=== PATIENT | male | born 1935 | race Caucasian/White ===

== ENCOUNTER 2017-10-19 12:24 | Observation (INO) | payer OTHER ==
[2017-10-19 12:56] LABS: Absolute Lymphocytes (CBC) 1.1 K/uL (0.7-4.9); Absolute Monocytes 0.3 K/uL (0.1-1.3); Absolute Neutrophil 3.5 K/uL (1.8-8.0); Basophils % 0.6 % (0-1.3); Eosinophils % 0.6 % (0-4.4); Hematocrit 33.3 % (39.6-49.0); Lymphocytes % 21.2 % (15.3-44.8); MCH 25.7 pg (27.0-35.0); MCV 80.2 fL (80-100); MPV 9.6 fL (7.6-11.3); Monocytes % 6.8 % (3.3-12.3); RBC Red Blood Cell Count 4.16 M/uL (4.33-5.43)
[2017-10-19 12:57] LABS: Protime INR 1.13
[2017-10-19 13:06] LABS: Potassium 3.9 mEq/L (3.6-5.0)
[2017-10-19 13:12] LABS: Albumin 3.6 g/dL (3.2-5.5); Bilirubin Direct 0.2 mg/dL (0-0.2); Bilirubin Total 1.1 mg/dL (0.3-1.2); Magnesium 2.1 mg/dL (1.8-2.5); Protein, Total 6.5 g/dL (6.0-8.3)
--- NOTE | 2017-10-19 13:52 | RAD REPORT ---
EXAM DESCRIPTION: RAD - Chest Single View - 10/19/2017 1:04 pm CLINICAL HISTORY: Chest pain COMPARISON: None. TECHNIQUE: AP portable chest image was obtained 1247 hours . FINDINGS: No focal consolidation or mass. Interstitial markings are mildly prominent, believed to be baseline. Cardiomegaly present without vascular engorgement. Defibrillator is in place. CABG surgica l changes are noted. No measurable pleural effusion and no pneumothorax. No gross bony abnormality se en. No acute aortic findings suspected. IMPRESSION: Cardiomegaly without failure or volume overload acute findings. No focal consolidation or mass.
[2017-10-19 13:54] LABS: Anisocytosis 2+; Blood Morphology Comment NOTED (NOT SEEN); Platelet Estimate ADEQ; Urine White Blood Cell Casts OK
--- NOTE | 2017-10-19 16:05 | EDPHYS ---
Physician Documentation [facility] Name: Blayne Ashford Age: 82 yrs Sex: Male : 1935 Arrival Date: 10/19/2017 Time: 12:26 Bed 7 Private MD: ED Physician Ramsey Martínez HPI: 10/19 12:48 This 82 yrs old Male presents to ER via EMS with complaints of Chest Pain. jr8 12:48 The patient or guardian reports chest pain that is located primarily in the substernal jr8 area. Onset: acutely, today. The pain does not radiate. Associated signs and symptoms: The patient has no apparent associated signs or symptoms. The chest pain is described as a pressure. Duration: The patient or guardian reports a single episode. Modifying factors: The symptoms are alleviated by nothing. the symptoms are aggravated by nothing. Severity of pain: At its worst the pain was moderate in the emergency department the pain has resolved. It is unknown whether or not the patient has had similar symptoms in the past. The patient has not recently seen a physician. Historical: - Allergies: 12:35 No Known Allergies; sv - Home Meds: 12:35 atorvastatin oral oral [Active]; clopidogrel oral oral [Active]; Corlanor oral oral sv [Active]; Glimepiride Oral [Active]; isosorbide dinitrate Oral [Active]; Januvia oral oral [Active]; Lasix Oral [Active]; levothyroxine oral [Active]; losartan oral oral [Active]; Omeprazole Oral [Active]; Risperdal Oral [Active]; Spironolactone Oral [Active]; torsemide oral oral [Active]; Lactulose Oral [Active]; metoprolol succinate oral oral [Active]; Ranexa oral oral [Active]; tamsulosin oral oral [Active]; exelon patch [Active]; - PMHx: 12:35 Atrial Fib; COPD; Dementia; Pacemaker; BPH; Hypothyroidism; Diabetes - NIDDM; sv Hyperlipidemia; Hypertension; angina pectoris; heart failure; Pneumonia; - PSHx: 12:35 CABG; sv - Immunization history:: Adult Immunizations up to date. - Social history:: Smoking status: Patient/guardian denies using tobacco. - Code Status:: Full code. ROS: 12:48 Eyes: Negative for injury, pain, redness, and discharge, ENT: Negative for injury, jr8 pain, and discharge, Neck: Negative for injury, pain, and swelling, Respiratory: Negative for shortness of breath, cough, wheezing, and pleuritic chest pain, Abdomen/GI: Negative for abdominal pain, nausea, vomiting, diarrhea, and constipation, Back: Negative for injury and pain, MS/Extremity: Negative for injury and deformity, Skin: Negative for injury, rash, and discoloration, Neuro: Negative for headache, weakness, numbness, tingling, and seizure. 12:48 Cardiovascular: Positive for chest pain, Negative for edema, orthopnea, palpitations, paroxysmal nocturnal dyspnea. Exam: 12:48 Eyes: Pupils equal round and reactive to light, extra-ocular motions intact. Lids and jr8 lashes normal. Conjunctiva and sclera are non-icteric and not injected. Cornea within normal limits. Periorbital areas with no swelling, redness, or edema. ENT: Nares patent. No nasal discharge, no septal abnormalities noted. Tympanic membranes are normal and external auditory canals are clear. Oropharynx with no redness, swelling, or masses, exudates, or evidence of obstruction, uvula midline. Mucous membranes moist. Neck: Trachea midline, no thyromegaly or masses palpated, and no cervical lymphadenopathy. Supple, full range of motion without nuchal rigidity, or vertebral point tenderness. No Meningismus. Cardiovascular: Regular rate with irregularly irregular rhythm with a normal S1 and S2. No gallops, murmurs, or rubs. Normal PMI, no JVD. No pulse deficits. Respiratory: Lungs have equal breath sounds bilaterally, clear to auscultation and percussion. No rales, rhonchi or wheezes noted. No increased work of breathing, no retractions or nasal flaring. Abdomen/GI: Soft, non-tender, with normal bowel sounds. No distension or tympany. No guarding or rebound. No evidence of tenderness throughout. Back: No spinal tenderness. No costovertebral tenderness. Full range of motion. Skin: Warm, dry with normal turgor. Normal color with no rashes, no lesions, and no evidence of cellulitis. MS/ Extremity: Pulses equal, no cyanosis. Neurovascular intact. Full, normal range of motion. Neuro: Awake and alert, GCS 15, oriented to person, place, time, and situation. Cranial nerves II-XII grossly intact. Motor strength 5/5 in all extremities. Sensory grossly intact. Cerebellar exam normal. Normal gait. Vital Signs: 12:36 BP 115 / 59; Pulse 69 MON; Resp 22; Temp 98.4(TE); Pulse Ox 98% on R/A; Weight 83.46 kg sv (R); Height 5 ft. 7 in. (170.18 cm) (R); Pain 0/10; 13:15 BP 115 / 63; Pulse 66; Resp 17; Pulse Ox 99% ; sv 14:48 BP 129 / 58; Pulse 65; Resp 15; Pulse Ox 99% on R/A; sv 15:50 BP 131 / 56; Pulse 70; Resp 15; Pulse Ox 99% ; sv 17:17 BP 129 / 53; Pulse 63 MON; Resp 13; Pulse Ox 99% ; sv 18:04 BP 128 / 58; Pulse 66; Resp 16; Pulse Ox 100% ; sv 12:36 Body Mass Index 28.82 (83.46 kg, 170.18 cm) sv 12:36 A fib sv 17:17 A fib sv MDM: 12:29 Patient medically screened. jr8 16:04 The patient was given aspirin in the Emergency Department. Data reviewed: vital signs, jr8 nurses notes, lab test result(s), EKG, radiologic studies, plain films, and as a result, I will discharge patient. Data interpreted: Pulse oximetry: on room air is 99 %. Interpretation: normal. Counseling: I had a detailed discussion with the patient and/or guardian regarding: the historical points, exam findings, and any diagnostic results supporting the discharge/admit diagnosis, lab results, radiology results, the need for further work-up and treatment in the hospital. Physician consultation: Sheridan Grayson MD was called at 16:04, was contacted at 16:04, regarding admission, to the telemetry unit. consult, patient's condition, and will see patient. 10/19 12:33 Order name: Basic Metabolic Panel; Complete Time: 13:36 jr8 10/19 12:33 Order name: BNP; Complete Time: 13:36 jr8 10/19 12:33 Order name: CBC with Diff; Complete Time: 14:00 jr8 10/19 12:33 Order name: LFT's; Complete Time: 13:36 jr8 10/19 12:33 Order name: Magnesium; Complete Time: 13:36 jr8 10/19 12:33 Order name: PT-INR; Complete Time: 13:00 jr8 10/19 12:33 Order name: Troponin (emerg Dept Use Only); Complete Time: 13:36 jr8 10/19 12:33 Order name: XRAY Chest (1 view); Complete Time: 14:00 8 10/19 12:33 Order name: EKG; Complete Time: 12:33 jr8 10/19 12:33 Order name: Cardiac monitoring; Complete Time: 12:36 jr8 10/19 12:58 Order name: CBC Smear Scan; Complete Time: 14:00 [facility] 10/19 15:11 Order name: Troponin (emerg Dept Use Only); Complete Time: 15:54 jr8 10/19 16:24 Order name: Urine Dipstick--Ancillary (enter results); Complete Time: 07:41 ag 10/19 16:27 Order name: Diet Heart Healthy; Complete Time: 16:28 sv 10/19 12:33 Order name: EKG - Nurse/Tech; Complete Time: 12:36 jr8 10/19 12:33 Order name: IV Saline Lock; Complete Time: 12:36 jr8 10/19 12:33 Order name: Labs collected and sent; Complete Time: 12:37 jr8 10/19 12:33 Order name: O2 Per Protocol; Complete Time: 12:37 jr8 10/19 12:33 Order name: O2 Sat Monitoring; Complete Time: 12:37 jr8 Administered Medications: No medications were administered Disposition: 10/19/17 16:04 Hospitalization ordered by Sheridan Grayson for Observation. Preliminary diagnosis is Chest pain, unspecified. - Bed requested for Telemetry/MedSurg (observation). - Status is Observation. sv - Condition is Stable. - Problem is new. - Symptoms have improved. UTI on Admission? No Addendum: 10/21/2017 09:02 Co-signature as Attending Physician, Ramsey Martínez MD I agree with the assessment and c santamaria plan of care. Signatures: Dispatcher [facility] Otilia Mayes RN RN sv Anderson, Corey, MD MD cha Roszak, Josh, PA PA jr8 Antoinette Hoffmann Corrections: (The following items were deleted from the chart) 10/19 17:10 16:04 Hospitalization Ordered by Sheridan Grayson MD for Observation. Preliminary ag diagnosis is Chest pain, unspecified. Bed requested for Telemetry/MedSurg (observation). Status is Observation. Condition is Stable. Problem is new. Symptoms have improved. UTI on Admission? No. jr8 18:11 17:10 10/19/2017 16:04 Hospitalization Ordered by Sheridan Grayson MD for Observation. sv Preliminary diagnosis is Chest pain, unspecified. Bed requested for Telemetry/MedSurg (observation). Status is Observation. Condition is Stable. Problem is new. Symptoms have improved. UTI on Admission? No. ag
--- NOTE | 2017-10-19 16:05 | ER ---
Nurse's Notes [facility] Name: Blayne Ashford Age: 82 yrs Sex: Male : 1935 Arrival Date: 10/19/2017 Time: 12:26 Bed 7 Private MD: Diagnosis: Chest pain, unspecified Presentation: 10/19 12:20 Presenting complaint: EMS states: was given his normal medication about 30 minutes ago sv and had a sudden onset of chest pain (dullness/flutter). Pt has since resolved. BS-220 EKG-Afib, 20G L AC, ASA 325 mg PO given. Transition of care: patient was received from another setting of care (long-term care facility), [facility]. Onset of symptoms was October 19, 2017 at 12:00. Care prior to arrival: IV initiated. 20 GA, in the left antecubital area, Glucose check: 220. 12:20 Method Of Arrival: EMS: [facility] sv 12:20 Acuity: LASHANDA 2 sv 12:21 Initial Sepsis Screen: Does the patient meet any 2 criteria? No. Patient's initial sv sepsis screen is negative. Does the patient have a suspected source of infection? No. Patient's initial sepsis screen is negative. Triage Assessment: 12:25 General: Appears in no apparent distress. comfortable, slender, well developed, sv Behavior is calm, cooperative, appropriate for age. Pain: Denies pain. EENT: No signs and/or symptoms were reported regarding the EENT system. Neuro: Level of Consciousness is awake, alert, obeys commands, Oriented to person, place, time, situation, Moves all extremities. Full function Speech is normal. Cardiovascular: Patient's skin is warm and dry. Pulses are 3+ in right radial artery and left radial artery Rhythm is atrial fibrillation Chest pain is denied. Respiratory: Respiratory effort is even, unlabored, Respiratory pattern is regular, symmetrical. GI: No signs and/or symptoms were reported involving the gastrointestinal system. : No signs and/or symptoms were reported regarding the genitourinary system. Derm: Skin is pink, warm \T\ dry. Musculoskeletal: No signs and/or symptoms reported regarding the musculoskeletal system. Historical: - Allergies: 12:35 No Known Allergies; sv - Home Meds: 12:35 atorvastatin oral oral [Active]; clopidogrel oral oral [Active]; Corlanor oral oral sv [Active]; Glimepiride Oral [Active]; isosorbide dinitrate Oral [Active]; Januvia oral oral [Active]; Lasix Oral [Active]; levothyroxine oral [Active]; losartan oral oral [Active]; Omeprazole Oral [Active]; Risperdal Oral [Active]; Spironolactone Oral [Active]; torsemide oral oral [Active]; Lactulose Oral [Active]; metoprolol succinate oral oral [Active]; Ranexa oral oral [Active]; tamsulosin oral oral [Active]; exelon patch [Active]; - PMHx: 12:35 Atrial Fib; COPD; Dementia; Pacemaker; BPH; Hypothyroidism; Diabetes - NIDDM; sv Hyperlipidemia; Hypertension; angina pectoris; heart failure; Pneumonia; - PSHx: 12:35 CABG; sv - Immunization history:: Adult Immunizations up to date. - Social history:: Smoking status: Patient/guardian denies using tobacco. - Code Status:: Full code. Screenin:30 Abuse screen: Denies threats or abuse. Denies injuries from another. Nutritional sv screening: No deficits noted. Tuberculosis screening: No symptoms or risk factors identified. Fall Risk None identified. Assessment: 12:47 Reassessment: See triage assessment. sv 12:53 Reassessment: xray at bedside. sg 13:50 Reassessment: Patient appears in no apparent distress at this time. No changes from sv previously documented assessment. Patient and/or family updated on plan of care and expected duration. Pain level reassessed. Patient is alert, oriented x 3, equal unlabored respirations, skin warm/dry/pink. 15:10 Reassessment: Patient appears in no apparent distress at this time. No changes from sv previously documented assessment. Patient and/or family updated on plan of care and expected duration. Pain level reassessed. Patient is alert, oriented x 3, equal unlabored respirations, skin warm/dry/pink. 16:27 Reassessment: SisterPRAVEEN Nancy Mitchell [phone]. sv 17:20 Reassessment: Patient and/or family updated on plan of care and expected duration. Pain sv level reassessed. Patient is alert, oriented x 3, equal unlabored respirations, skin warm/dry/pink. Nurse unable to take report at this time. Will call back. 18:05 Reassessment: Patient appears in no apparent distress at this time. No changes from sv previously documented assessment. Patient and/or family updated on plan of care and expected duration. Pain level reassessed. Patient is alert, oriented x 3, equal unlabored respirations, skin warm/dry/pink. Vital Signs: 12:36 BP 115 / 59; Pulse 69 MON; Resp 22; Temp 98.4(TE); Pulse Ox 98% on R/A; Weight 83.46 kg sv (R); Height 5 ft. 7 in. (170.18 cm) (R); Pain 0/10; 13:15 BP 115 / 63; Pulse 66; Resp 17; Pulse Ox 99% ; sv 14:48 BP 129 / 58; Pulse 65; Resp 15; Pulse Ox 99% on R/A; sv 15:50 BP 131 / 56; Pulse 70; Resp 15; Pulse Ox 99% ; sv 17:17 BP 129 / 53; Pulse 63 MON; Resp 13; Pulse Ox 99% ; sv 18:04 BP 128 / 58; Pulse 66; Resp 16; Pulse Ox 100% ; sv 12:36 Body Mass Index 28.82 (83.46 kg, 170.18 cm) sv 12:36 A fib sv 17:17 A fib sv ED Course: 12:20 Maintain EMS IV. Dressing intact. Good blood return noted. Site clean \T\ dry. Gauge \T\ sv site: 20G L Ac. 12:26 Patient arrived in ED. sv 12:27 Otilia Mayes, CARLEY is Primary Nurse. sv 12:29 Zeeshan Cadet PA is PHCP. jr8 12:29 Ramsey Martínez MD is Attending Physician. jr8 12:30 Triage completed. sv 12:30 Patient maintains SpO2 saturation greater than 95% on room air. sv 12:30 Patient has correct armband on for positive identification. Bed in low position. Call sv light in reach. Side rails up X2. securities sales associate on. Pulse ox on. NIBP on. Door closed. Head of bed elevated. 12:30 Arm band placed on left wrist. sv 12:45 Initial lab(s) drawn, by me, sent to lab. sv 13:01 XRAY Chest (1 view) In Process Unspecified. EDMS 13:15 Repeat lab(s) drawn. by me, sent to lab. sv 13:23 CBC Smear Scan Sent. sv 16:04 Sheridan Grayson MD is Hospitalizing Provider. jr8 17:41 No provider procedures requiring assistance completed. Patient admitted, IV remains in sv place. intact. Administered Medications: No medications were administered Outcome: 16:04 Decision to Hospitalize by Provider. jr8 17:41 Admitted to Tele accompanied by tech, via stretcher, room 405, with chart, Report sv called to April HOWE 17:41 Condition: stable 17:41 Instructed on the need for admit. 18:11 Patient left the ED. sv Signatures: Dispatcher [employer] Otilia Sampson RN RN Dixon Ferrer RN RN Zeeshan Cadet PA PA jr8 Corrections: (The following items were deleted from the chart) 17:17 12:36 BP 115 / 59; Pulse 69bpm; Resp 22bpm; Pulse Ox 98% RA; Temp 98.4F Temporal; 83.46 sv kg Reported; Height 5 ft. 7 in. Reported; BMI: 28.8; Pain 0/10; sv 17:40 12:20 Presenting complaint: EMS states: was given his normal medication about 30 sv minutes ago and had a sudden onset of chest pain (dullness/flutter). Pt has since resolved. BS-220 EKG-Afib, 20G L AC, ASA 25 mg PO given. sv
[2017-10-19 17:22] LABS: Urine Blood NEGATIVE (NEG); Urine Glucose NEGATIVE (NEG); Urine Protein NEGATIVE (NEG); Urine Specific Gravity 1.015 (1.005-1.030)
[2017-10-19] MEDS ORDERED: ONDANSETRON 4 MG/2 ML VIAL IV PRN (18:27)
[2017-10-19] MEDS ORDERED: ACETAMINOPHEN 650MG/RECT SUPP PR PRN (18:27)
[2017-10-19] MEDS ORDERED: NITROGLYCERIN 0.4 MG/TAB SL PRN (18:27)
[2017-10-19] MEDS ORDERED: HYDROCODONE/APAP 5/325 MG TAB PO PRN (18:27)
[2017-10-19] MEDS ORDERED: ENOXAPARIN 100 MG/ML SYR SQ SCH (19:00)
[2017-10-19 19:31] LABS: Absolute Lymphocytes (CBC) 1.4 K/uL (0.7-4.9); Absolute Monocytes 0.4 K/uL (0.1-1.3); Absolute Neutrophil 3.1 K/uL (1.8-8.0); Basophils % 0.4 % (0-1.3); Eosinophils % 0.6 % (0-4.4); Hematocrit 35.1 % (39.6-49.0); Lymphocytes % 28.5 % (15.3-44.8); MCH 25.7 pg (27.0-35.0); MCV 80.8 fL (80-100); MPV 9.6 fL (7.6-11.3); Monocytes % 8.6 % (3.3-12.3); RBC Red Blood Cell Count 4.34 M/uL (4.33-5.43)
[2017-10-19 19:44] LABS: Albumin 4.1 g/dL (3.2-5.5); Bilirubin Total 1.1 mg/dL (0.3-1.2); Potassium 3.7 mEq/L (3.6-5.0)
[2017-10-19 19:52] LABS: CKMB Creatine Kinase MB 2.6 ng/ml (0.3-4.0)
[2017-10-19] MEDS ORDERED: ENOXAPARIN 80 MG/0.8 ML SQ SCH (20:00)
[2017-10-19] MEDS: METOPROLOL TAR 50 MG TAB PO SCH (20:39)
[2017-10-19] MEDS: INSULIN -REGULAR HUMAN 50 UNIT/0.5 ML ML SQ SCH (20:49)
[2017-10-19] MEDS ORDERED: ATORVASTATIN 40 MG TAB PO SCH (21:00)
[2017-10-19 21:02] VITALS: BMI 28.8
--- NOTE | 2017-10-20 05:17 | HP ---
Date of Admission: 10/19/2017 Reason For Admission: Chest pain. History Of Present Illness: This is an 82-year-old gentleman with extensive past medical history of coronary artery disease with a CABG, hypertension, hyperlipidemia, diabetes, dementia presented with apparently chest pain. According to the ER records, chest pain was in the mid chest substernal started today without any radiation. There was no nausea or vomiting. The patient describes the pain as pressure. Due to his dementia, he was not able to give me accurate information. In the emergency room, the patient was evaluated. The chest x-ray was unremarkable. EKG showed a flutter with non specific ST-T wave cardiac enzyme. The first set was negative. The second one was up to 0.04. BNP was at 1470. The patient was admitted to be ruled out. Currently, he is lying in bed. He looks comfortable. He has no chest pain or shortness of breath. Review of systems otherwise as below. Past Medical History: Obtained from the chart significant for atrial fibrillation, COPD, dementia, pacemaker placement, enlarged prostate, hypothyroidism, diabetes, hyperlipidemia, hypertension, angina, congestive heart failure, pneumonia. Past Surgical History: Significant for CABG. Code Status: He is full code. Allergies: NONE. Social History: Apparently, he is , have 2 kids. 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 He does not drink or smoke or use any drugs. He used to smoke 30 years ago but quit. Family History: Father of myocardial infarction. Mother of old age. Medication List: I do not have the exact doses but the list showed Lipitor, Plavix, glimepiride, Imdur, Lasix, Synthroid, losartan, omeprazole, Risperdal, spironolactone, torsemide, lactulose, metoprolol, Ranexa, tamsulosin, Exelon patch. Review of Systems: The patient denies any fever, chills, night sweats, dizziness, lightheaded, headache or blurred vision. There is no change in weight or appetite. He has not had any cough or sputum. No shortness of breath. He has chest pain earlier but not now. There was also palpitation, no PND, orthopnea, dyspnea with exertion. No nausea, vomiting, abdominal pain, change in bowel movement, diarrhea, constipation. No dysuria, frequency, urgency, or hematuria. There is no history of depression, anxiety, seizure, or stroke. Physical Examination: Vital Signs: Currently, vital signs, blood pressure is 134/57, respiratory rate 18, pulse 55, temperature 97.9. General: He is fully alert, oriented x3. Does not look in any distress. HEENT: Atraumatic, normocephalic. PERRLA. Oral mucosa is moist. Neck: Supple. No JVD. No carotid bruits. Chest: Clear to auscultation. Good air entry. Heart: Regular, rate, rhythm. No gallop or murmur. Abdomen: Soft, nontender. No masses. No hepatosplenomegaly. Positive bowel sounds. Extremities: No clubbing, cyanosis, or edema. No calf tenderness. Neurologic: Grossly intact. Cranial nerves exam 2 through 12 intact. Normal sensation. Normal reflexes. Normal muscle strength. Laboratory Data: Currently labs from the ER, CBC within normal except for a whole week , platelet 132. Chemistry showed potassium 3.9, chloride 99, BUN of 27, creatinine of 1.68, GFR 39. Glucose 172, BNP of 1470. Troponin first one 0.03, second one 0.04. EKG atrial flutter with non specific ST-T wave changes. Assessment And Plan: This is an 82-year-old gentleman with extensive past medical history of coronary artery disease status post CABG, hyperlipidemia, diabetes mellitus, hypertension, admitted with chest pain. 1. Chest pain. Rule out myocardial infarction. Will admit patient to the floor. Given 1 aspirin, Plavix, full dose of Lovenox 1 mg/kg once a day given renal insufficiency. He will be also on statin until he is ruled out. Cardiology consult in a.m. given excessive pressure in the patient's past medical history. 2. History of congestive heart failure. The patient on Ranexa. We will resume that after we get home dose also on Lasix, Aldactone, and torsemide. We will try to obtain the dose from the longterm. Echocardiogram to evaluate the patient cardiac function. 3. Hyperlipidemia. Continue statin. 4. Hypothyroidism. We will continue on Synthroid. 5. Diabetes mellitus. We will check hemoglobin A1c and place the patient back on glyburide and insulin sliding scale. We will check hemoglobin A1c. 6. Enlarged prostate. We will continue patient on Flomax. No DVT prophylaxis. The patient is on full dose of Lovenox. 7. Renal insufficiency. Most likely chronic. We will observe for now. JACK Voice ID: [id number] MTDD
[2017-10-20 05:41] LABS: CKMB Creatine Kinase MB 2.2 ng/ml (0.3-4.0)
[2017-10-20] MEDS: INSULIN -REGULAR HUMAN 50 UNIT/0.5 ML ML SQ SCH ×4 (07:30→20:46)
[2017-10-20] MEDS ORDERED: GLIMEPIRIDE 2 MG TABLET PO SCH (08:00)
[2017-10-20] MEDS ORDERED: POTASSIUM 25 MEQ EFFERV TAB PO ONE (08:14)
[2017-10-20] MEDS ORDERED: ENOXAPARIN 100 MG/ML SYR SQ SCH (09:00)
[2017-10-20] MEDS ORDERED: FUROSEMIDE 40 MG TABLET PO SCH (09:00)
[2017-10-20] MEDS ORDERED: VALSARTAN 80 MG TAB PO SCH (09:00)
[2017-10-20] MEDS ORDERED: SPIRONOLACTONE 25 MG TABLET PO SCH (09:00)
[2017-10-20] MEDS: SITAGLIPTIN PHOS 100 MG TAB PO SCH (09:23)
[2017-10-20] MEDS: ASPIRIN 325 MG TAB PO SCH (09:23)
[2017-10-20] MEDS: CLOPIDOGREL 75 MG TABLET PO SCH (09:24)
[2017-10-20] MEDS: TAMSULOSIN 0.4 MG SR CAP PO SCH (09:24)
[2017-10-20] MEDS: METOPROLOL TAR 50 MG TAB PO SCH ×2 (09:25→20:46)
[2017-10-20 11:17] LABS: CKMB Creatine Kinase MB 2.1 ng/ml (0.3-4.0)
--- NOTE | 2017-10-20 15:24 | EKG ---
Test Date: 2017-10-19 Test Time: 12:26:37 Nutrition Services Aide: LA MEASUREMENT RESULTS: Intervals: Rate: 70 IN: QRSD: 104 QT: 430 QTc: 464 [place]: P: IN: QRS: -5 T: 113 INTERPRETIVE STATEMENTS: nsr with artifact Minimal voltage criteria for LVH, may be normal variant Possible Anterior infarct, age undetermined ST & T wave abnormality, consider lateral ischemia Abnormal ECG No previous ECG available for comparison Electronically Signed On 10-20-17 15:24:38 CDT by Haroldo Rojas
--- NOTE | 2017-10-20 15:25 | PN ---
Subjective: Currently patient lying in bed. He looks comfortable. He has no chest pain. No abdomi nal pain. His heart rate went all the way down to 30s according to the tele, but he was asymptomatic . Physical Examination: Vital Signs: Blood pressure is 119/56, heart rate 17, pulse 48, temperature 98.6. General: The patient is alert and oriented x3. Does not look in any distress. HEENT: Atraumatic, normocephalic. PERRLA oral mucosa is moist. Neck: Supple. No JVD. No carotid bruits. Chest: Clear to auscultation. Good air entry. Heart: Regular rate and rhythm. S1, S2 normal. No gallop. Abdomen: Soft, nontender. No masses. No hepatosplenomegaly. Positive bowel sounds. Extremities: No clubbing, cyanosis, or edema. No calf tenderness. Neurologic: Grossly intact. Laboratory Data: Today showed CBC was normal except for hemoglobin 11.1. Chemistry not done this a. m. Cardiac enzymes were negative with troponin peaked at 0.04. Assessment And Plan: 1.Chest pain. Rule out myocardial infarction. The patient had negative series of cardiac enzymes. Troponin peaked at 0.04. Continue aspirin and Plavix. We will switch Lovenox for DVT prophylaxis f rom full dose at this point. Cardiology consult requested and is still pending. 2.Bradycardia with history of pacemaker. Cardiac consult pending. I am not sure if we need a pacem fletcher to be interrogated. 3.History of congestive heart failure with elevated BNP, which may not be very accurate due to renal insufficiency. Chest x-ray was unremarkable yesterday. We will resume patient's Ranexa 1000 mg twi ce a day. 4.Diabetes mellitus. Needs better control. Will resume patient's home medication with glyburide. 5.History of benign prostatic hyperplasia. Continue on Flomax 0.4 mg once a day. 6.Renal insufficiency. Chronic. We will observe for now. Repeat CMP as it was not done this selene britton. 7.Discharge plan will depend on cardiology recommendation. JESSE/KO Voice ID: [id number] Report ID: [id number]
[2017-10-20] MEDS ORDERED: ACETAMINOPHEN 325 MG TABLET PO PRN (16:20)
[2017-10-20] MEDS: LACTULOSE 20 GM/30 ML UCUP PO SCH (20:44)
[2017-10-20] MEDS: ATORVASTATIN 80 MG TAB PO SCH (20:44)
[2017-10-20] MEDS: ISOSORBIDE DINIT 20 MG TAB PO SCH (20:45)
[2017-10-20] MEDS: TORSEMIDE 20 MG TAB PO SCH (20:45)
[2017-10-20] MEDS: FUROSEMIDE 40 MG TABLET PO SCH (20:45)
[2017-10-20] MEDS ORDERED: IVABRADINE HCL 5 MG PO SCH (21:00)
[2017-10-21 04:49] LABS: Potassium 4.4 mEq/L (3.6-5.0)
[2017-10-21] MEDS: PANTOPRAZOLE 40MG TABLET PO SCH (05:54)
[2017-10-21] MEDS: LEVOTHYROXINE SOD 0.1 MG TAB PO SCH (05:54)
[2017-10-21] MEDS: INSULIN -REGULAR HUMAN 50 UNIT/0.5 ML ML SQ SCH ×4 (07:30→21:45)
[2017-10-21] MEDS ORDERED: GLIMEPIRIDE 2 MG TABLET PO SCH (08:00)
[2017-10-21] MEDS: SPIRONOLACTONE 25 MG TABLET PO SCH (08:52)
[2017-10-21] MEDS: LOSARTAN POTASSIUM 50 MG TABLET PO SCH (08:52)
[2017-10-21] MEDS: ISOSORBIDE DINIT 20 MG TAB PO SCH ×2 (08:52→21:36)
[2017-10-21] MEDS: TORSEMIDE 20 MG TAB PO SCH (08:52)
[2017-10-21] MEDS: ASPIRIN 325 MG TAB PO SCH (08:52)
[2017-10-21] MEDS: TAMSULOSIN 0.4 MG SR CAP PO SCH (08:52)
[2017-10-21] MEDS: METOPROLOL TAR 25 MG TAB PO SCH ×2 (08:53→21:36)
[2017-10-21] MEDS: CLOPIDOGREL 75 MG TABLET PO SCH (08:53)
[2017-10-21] MEDS: FUROSEMIDE 40 MG TABLET PO SCH ×2 (08:53→21:37)
[2017-10-21] MEDS: SITAGLIPTIN PHOS 100 MG TAB PO SCH (08:53)
[2017-10-21] MEDS ORDERED: HOME MED 1 EA UNK (Clopidogrel Bisulfate [Clopidogrel] 75 MG) PO SCH (09:00)
[2017-10-21] MEDS ORDERED: HOME MED 1 EA UNK (Omeprazole [Omeprazole] 20 MG) PO SCH (09:00)
[2017-10-21] MEDS ORDERED: HOME MED 1 EA UNK (Losartan Potassium [Losartan Potassium] 25 MG) PO SCH (09:00)
[2017-10-21] MEDS: RIVASTIGMINE 9.5 MG/24 HR PATCH TD SCH (09:00)
[2017-10-21] MEDS ORDERED: TAMSULOSIN 0.4 MG SR CAP PO SCH (09:00)
[2017-10-21] MEDS ORDERED: SITAGLIPTIN PHOS 100 MG TAB PO SCH (09:00)
--- NOTE | 2017-10-21 12:06 | CON ---
Date of Consultation: 10/20/2017 Mr. Ashford is an 82-year-old [facility] resident, admitted by Dr. Grayson on 10/19/2017. [facility] Reason For Consultation: Chest pain. History Of Present Illness: Mr. Ashford is an 82, has a very extensive past medical history. He came i n with chest pain that he could not really describe well himself. He did have a troponin of 0.04. H e had a BNP of 1470. His creatinine is 1.68. He was bradycardic when I saw him, but asymptomatic. His chest pain had been going on for about 2-3 days. He denied nausea, vomiting, diaphoresis, PND, o rthopnea, pedal edema, palpitations, or syncope. Allergies: NONE. Review of Systems: Negative. Social History: He is a [facility] resident. Family History: Unremarkable. Past Medical History: Include. 1.Atrial fibrillation. 2.Past history of pacemaker. 3.Chronic obstructive pulmonary disease. 4.Dementia. 5.Diabetes. 6.Hypothyroidism. 7.Hypertension. 8.Dyslipidemia. 9.CHF. 10.History of CABG. Medications: According to the [facility] list include Lipitor, Lasix, Imdur, thyroid, potassium, m etoprolol, Corlanor, Ranexa, Protonix, Januvia, Demadex, Flomax, and Aldactone. Physical Examination: Vital Signs: Stable. He was in sinus bradycardia, afebrile. HEENT: Negative. Neck: Supple without any bruit, lymphadenopathy, JVD, or thyromegaly. Chest: Clear to auscultation and percussion. Cardiac: Revealed a regular rhythm and rate without any gallops or rubs. He had what sounds like an aortic sclerosis murmur. Abdomen: Benign. Extremities: Revealed no clubbing, cyanosis, or edema. Diagnostic Data: As stated earlier. EKG shows sinus bradycardia, nonspecific changes. Chest x-ray shows cardiomegaly but no evidence of volume overload. Impression And Plan: 1.Atypical chest pain, unlikely cardiac. I am concerned about his elevated BNP. We maybe dealing w ith an acute exacerbation of chronic systolic congestive heart failure. Echocardiogram is pending fo r tomorrow. I will continue his present regimen. The patient should not be on Lasix and Demadex and may be just his [facility] listed medicine. I am not so sure, which one he really takes. The pat ient is 82. His dementia is certainly not embark on any further cardiac testing or invasion at this point. 2.Atrial fibrillation that has resolved. He is in sinus bradycardia not on anticoagulation. He is just on Plavix. 3.Chronic obstructive pulmonary disease, stable. 4.Dementia, stable. 5.Diabetes, stable. 6.Hypothyroidism, on Synthroid. 7.Hypertension, well controlled. 8.Dyslipidemia, well controlled. 9.History of coronary artery disease, status post CABG. 10.History of chronic systolic congestive heart failure. The patient sees a surgery center administrator by the [facility] of Dr. Alexandre in [place], I do not have any records. We will try to contact his family for further information. For now, we will diurese him gently to see what the echocardiogram shows and continue h is other regimen otherwise. VANESA/KO Voice ID: [id number] Report ID: [id number]
--- NOTE | 2017-10-21 12:41 | ECHO ---
HEIGHT: 5 ft 7 in WEIGHT: 184 lb 0 oz DATE OF STUDY: 10/21/[address]: Sheridan Grayson MD 2-DIMENSIONAL: YES M.MODE: YES DOPPLER: YES COLOR FLOW: YES TDS: NO PORTABLE: NO DEFINITY: NO BUBBLE STUDY: NO DIAGNOSIS: CONGESTIVE HEART FAILURE CARDIAC HISTORY: CATHERIZATION: NO SURGERY: YES PROSTHETIC VALVE: NO PACEMAKER: YES MEASUREMENTS (cm) DIASTOLIC (NORMALS) SYSTOLIC (NORMALS) IVSd 1.1 (0.6-1.2) LA Diam 4.7 (1.9-4.0) LVEF 25-29% LVIDd 5.6 (3.5-5.7) LVIDs 4.6 (2.0-3.5) %FS 17% LVPWd 1.1 (0.6-1.2) Ao Diam 3.1 (2.0-3.7) 2 DIMENSIONAL ASSESSMENT: RIGHT ATRIUM: DILATED LEFT ATRIUM: DILATED RIGHT VENTRICLE: PACEMAKER LEFT VENTRICLE: DILATED TRICUSPID VALVE: NORMAL MITRAL VALVE: MITRAL ANNULAR CALCIFICATION PULMONIC VALVE: NORMAL AORTIC VALVE: SCLEROSIS PERICARDIAL EFFUSION: NONE AORTIC ROOT: NORMAL LEFT VENTRICULAR WALL MOTION: AKINESIS OF APEX, SEPTUM. GLOBAL HYPOKINESIS ELESWHERE. DOPPLER/COLOR FLOW: MILD MITRAL AND TRICUSPID REGURGITATION. NO SIGNIFICANT AORTIC STENOSIS. COMMENTS: SEVERELY DEPRESSED LEFT VENTRICULAR EJECTION FRACTION. DILATED LEFT AND RIGHT ATRIUM, LEFT VENTRICLE. PACEMAKER IN RIGHT VENTRICLE. AORTIC SCLEROSIS WITH NO AORTIC STENOSIS. MILD AORTIC AND MITRAL REGURGITATION. MITRAL ANNULAR CALCIFICATION. TECHNOLOGIST: MARIA ERWIN
[2017-10-21] MEDS ORDERED: REGADENOSON 0.4 MG/5 ML SYR IV ONE (13:27)
--- NOTE | 2017-10-21 13:42 | CON ---
History Of Present Illness: Mr. Ashford is 82. He has history of bypass surgery in 1980s. He had sten ts placed about 3 years ago. He has chronic atrial flutter, not on an anticoagulant and he has a def ibrillator that is for the most part pacing almost 100% of the time. The defibrillator has reached e lective replacement interval some 6 months ago. The patient has not been compliant with followups an d now has a 28-day window, now 25-day window to get the defibrillator replaced. It has not shocked i n before. The patient has severe underlying dementia and lethargy. He has chronic stable angina. I was asked to see him because he had some angina. He has angina at least several times a week. He t akes medications to help that. Home Medications: Flomax, Ranexa, metoprolol, lactulose, torsemide, spironolactone, Risperdal, omepr azole, losartan, levothyroxine, furosemide, sitagliptin, isosorbide dinitrate, glimepiride, ivabradin e, although that was discontinued, still is listed as an outpatient medication, Plavix, Lipitor, and rivastigmine patch. Physical Examination: General: The patient is sleepy, arousable, not obtunded, but he has very slow mentation. Has had re al difficult time expressing himself. He says he can't say how often he gets angina. He just knows he gets it and feels sure it will go away. I think he had 1 spell that prompted him to come to the ospital. Denies having any chest pain since then. HEENT: Unremarkable. No evidence of trauma. Lungs: Clear. Heart: irregularly irregular. Abdomen: Soft. Extremities: reveal trace edema. Distal pulses diminished. Social History: The patient was a heavy cigarette smoker until about 1993. Diagnostic Data: His EKG shows atrial flutter. I think all of the QRS' are paced complexes. It is hard to be certain. The patient has chest pain. He has chronic stable angina. We will do an echocardiogram and stress t est, get an idea of his ejection fraction and arrange for him to get a new defibrillator. He I guess one of the question is whether he should have a BiV pacing or just replace the device and would it b e a pacemaker. His heart rate is rather slow, maybe it needs to be reprogrammed, so it paces at abou t 70 beats per minute. Thank you very much for kind referral of Mr. Ashford. I will follow him with you today. We will do a p harmacologic nuclear stress echo and decide on whether he needs transfer or an outpatient appointment for a defibrillator revision. MARGOTH/KO Voice ID: [id number] Report ID: [id number]
--- NOTE | 2017-10-21 14:36 | RAD REPORT ---
EXAM DESCRIPTION: NM - Rest Stress Cardiac Imaging - 10/21/2017 2:23 pm CLINICAL HISTORY: Chest pain. COMPARISON: None. TECHNIQUE: The patient was administered approximately 10mCi of Tc 99m Sestamibi prior to resting SPE CT imaging of the heart. The patient was then administered approximately 30 mCi of Tc 99m Sestamibi f ollowing exercise or pharmacologic stress. Multiplanar SPECT images were reviewed. FINDINGS: A large area of diminished radiotracer activity involves the inferior apical left ventric ular myocardium on rest and stress images. A large area of diminished radiotracer uptake involves the septal left ventricular myocardium on rest and stress images. The left ventricular ejection fraction equals 18% IMPRESSION: Large fixed perfusion defect involving the inferior apical left ventricular myocardium c onsistent with an infarct Large area of diminished radiotracer uptake involving the septal left ventricular myocardium consiste nt with an infarct. No evidence of stress-induced ischemia
--- NOTE | 2017-10-21 15:10 | P.PN ---
Subjective Date of Service: 10/21/17 Primary Care Provider: None Chief Complaint: Chest pain Subjective: Doing well Physical Examination - Vital Signs Temperature: 97.9 F Blood Pressure: 111/42 Pulse: 46 Respirations: 18 Pulse Ox (%): 100 - Physical Exam General: Alert, In no apparent distress, Oriented x3, Cooperative HEENT: Atraumatic Neck: Supple Respiratory: Clear to auscultation bilaterally, Normal air movement Cardiovascular: Normal pulses, Regular rate/rhythm Gastrointestinal: Normal bowel sounds, Soft and benign, Non-distended, No masses , No rebound, No guarding Musculoskeletal: No erythema, No tenderness, No warmth Integumentary: No tenderness/swelling, No erythema, No warmth, No cyanosis Neurological: Normal speech, Normal strength at 5/5 x4 extr, Normal tone - Studies Medications List Reviewed: Yes Assessment & Plan - Problems (Diagnosis) (1) Atrial flutter Current Visit: Yes Status: Acute Plan: He cardiology mention atrial flutter. Patient will need cardiac stress test to evaluate his heart. Patient was to have gotten his pacemaker recheck. Patient required new battery. Patient to be further assessed for possible transfer to higher level of care to address his pacemaker. Ejection fraction 25%. Will continue with fluid restriction and Lasix. Await further recommendations from Cardiology (2) Diabetes mellitus Onset Date: 10/21/17 Current Visit: Yes Status: Acute Plan: Continue with sliding scale. Will check A1c. Qualifiers: Diabetes mellitus type: type 2 Diabetes mellitus extermination supervisor insulin use: without extermination supervisor use Diabetes mellitus complication status: with other specified complication Qualified Code(s): E11.69 - Type 2 diabetes mellitus with other specified complication (3) Hypothyroidism Onset Date: 10/21/17 Current Visit: Yes Status: Chronic Plan: Will check tsh. Will continue with medication. Qualifiers: Hypothyroidism type: unspecified Qualified Code(s): E03.9 - Hypothyroidism , unspecified (4) Hyperlipidemia Onset Date: 10/21/17 Current Visit: Yes Status: Chronic Plan: Will continue with medication. LDL 30. (5) Chest pain Onset Date: 10/21/17 Current Visit: Yes Status: Acute Plan: Patient to have stress test. Echocardiogram shows ejection fraction 25%. Patient to be evaluated from a cardiology to consider transfer to higher level care for evaluation of pacemaker in possible replacement. (6) Dementia Current Visit: Yes Status: Chronic Plan: Patient with chronic dementia. Will continue with his medication. Will monitor closely. (7) BPH (benign prostatic hyperplasia) Current Visit: Yes Status: Chronic Plan: Will continue with medication (8) Chronic renal disease Current Visit: Yes Status: Chronic Plan: Will check renal US. Will consult Nephrology to address. Qualifiers: Chronic kidney disease stage: stage 3 (moderate) Qualified Code(s): N18.3 - Chronic kidney disease, stage 3 (moderate) Discharge Plan: Transfer Plan to discharge in: 24 Hours Time Spent Managing Pts Care (In Minutes): 55
--- NOTE | 2017-10-21 15:55 | TREADPHA ---
DX: CHEST PAIN Date of Study: 10/21/2017 Ht: 5 7 Wt: 184 lb 0 oz Consulting Physician: KRISTAN MEDICATIONS: TYLENOL, NORCO, ASPIRIN, LIPITOR, PLAVIX, LASIX, AMARYL, ZOFRAN, NOVOLIN-R, ISORDIL, CEPHULAR, COZAAR, LOPRESSOR, NITRAOSTAT, RANEXA, FLOMAX, DEMADEX HISTORY: PATIENT HERE FOR CHEST PAIN. MEDICAL HISTORY OF CORONARY ARTERY DISEASE, CHRONIC STABLE ANGINA. PHYSICIAL EXAMINATION: RESTING B.P.: 127/70 RESTING H.R.: 62 RESTING EKG: ATRIAL FLUTTER WITH 4:1 CONDUCTION, ANTERIOR INFARCTION. PROTOCOL: LEXISCAN EXERCISE TIME: 3:30 B.P. AT PEAK STRESS: 125/59 IMPRESSION: LEXISCAN STRESS TEST PERFORMED. CARDIOLITE INJECTED PER PROTOCOL. NO SUPRAVENTRICULAR TACHYCARDIA OR VENTRICULAR TACHYCARDIA NOTED. SEE NUCLEAR MEDICINE REPORT. NON DIAGNOSTIC EKG WITH LEXISCAN STRESS.
--- NOTE | 2017-10-21 16:10 | P.CNS ---
Date of Consult: 10/21/17 Reason for Consult: CKD III Requesting Physician: Betito Polk Primary Care Provider: None Chief Complaint: Chest pain History of Present Illness: History Of Present Illness: This is an 82-year-old gentleman with extensive past medical history of coronary artery disease with a CABG, hypertension, hyperlipidemia, diabetes, dementia presented with apparently chest pain. According to the ER records, chest pain was in the mid chest substernal started today without any radiation. There was no nausea or vomiting. The patient describes the pain as pressure. Due to his dementia, he was not able to give me accurate information. In the emergency room, the patient was evaluated. The chest x-ray was unremarkable. EKG showed a flutter with non specific ST-T wave cardiac enzyme. The first set was negative. The second one was up to 0.04. BNP was at 1470. The patient was admitted to be ruled out. Currently, he is lying in bed. He looks comfortable. He has no chest pain or shortness of breath. Review of systems otherwise as below. Reports a hx of a severe renal infection with BRITTANY. No NSAIDs; takes tylenol for pain. No urinary symptoms. 12:48 This 82 yrs old Male presents to ER via EMS with complaints of Chest Pain. jr8 12:48 The patient or guardian reports chest pain that is located primarily in the substernal jr8 area. Onset: acutely, today. The pain does not radiate. Associated signs and symptoms: The patient has no apparent associated signs or symptoms. The chest pain is described as a pressure. Duration: The patient or guardian reports a single episode. Modifying factors: The symptoms are alleviated by nothing. the symptoms are aggravated by nothing. Severity of pain: At its worst the pain was moderate in the emergency department the pain has resolved. It is unknown whether or not the patient has had similar symptoms in the past. The patient has not recently seen a physician. Allergies No Known Allergies Allergy (Verified 10/19/17 16:09) Home medications list reviewed: Yes Home Medications: Atorvastatin Calcium [Lipitor] 80 mg PO BEDTIME 10/20/17 Clopidogrel Bisulfate [Clopidogrel] 75 mg PO DAILY 10/20/17 Furosemide [Lasix*] 40 mg PO BID 10/20/17 Glimepiride [Amaryl*] 2 mg PO DAILY 10/20/17 Isosorbide Dinitrate 20 mg PO BID 10/20/17 Lactulose [Enulose] 30 ml PO BEDTIME 10/20/17 Levothyroxine [Synthroid*] 200 mcg PO DAILY 10/20/17 Losartan Potassium 25 mg PO DAILY 10/20/17 Omeprazole 20 mg PO DAILY 10/20/17 Ranolazine [Ranexa] 1,000 mg PO BID 10/20/17 Risperidone [Risperdal 0.25 MG TAB*] 0.25 mg PO DAILY 10/20/17 Risperidone [Risperdal 0.25 MG TAB*] 0.5 mg PO 1700 10/20/17 Rivastigmine Patch [Exelon 9.5 mg Patch] 13.3 mg TD DAILY 10/20/17 Sitagliptin Phosphate [Januvia*] 50 mg PO DAILY 10/20/17 Spironolactone [Aldactone*] 25 mg PO DAILY 10/20/17 Tamsulosin [Flomax*] 0.4 mg PO DAILY 10/20/17 Metoprolol Tartrate [Lopressor*] 25 mg PO BID #60 tab 10/22/17 - Past Medical/Surgical History Diabetic: Yes -: DM -: PAcemaker -: afib per hx -: pacemaker - Social History Alcohol use: No CD- Drugs: No Caffeine use: Yes Place of Residence: Retirement Review of Systems 10-point ROS is otherwise unremarkable General: Weakness, Malaise Cardiovascular: Edema Neurological: Weakness Physical Examination Temp Pulse Resp BP Pulse Ox 97.9 F 46 L 18 111/42 L 100 10/21/17 15:20 10/21/17 15:20 10/21/17 15:20 10/21/17 15:20 10/21/17 15:20 General: In no apparent distress, Oriented x3, Cooperative HEENT: Atraumatic Neck: Supple Respiratory: Clear to auscultation bilaterally, Normal air movement Cardiovascular: Regular rate/rhythm, Edema Gastrointestinal: Soft and benign, Non-distended Musculoskeletal: No clubbing, No contractures Integumentary: No rashes, No cyanosis Neurological: Normal speech Serum Cr 1.71 Blood work reviewed in the chart. Imagings Data: EXAM DESCRIPTION: RAD - Chest Single View - 10/19/2017 1:04 pm CLINICAL HISTORY: Chest pain COMPARISON: None. TECHNIQUE: AP portable chest image was obtained 1247 hours . FINDINGS: No focal consolidation or mass. Interstitial markings are mildly prominent, believed to be baseline. Cardiomegaly present without vascular engorgement. Defibrillator is in place. CABG surgical changes are noted. No measurable pleural effusion and no pneumothorax. No gross bony abnormality seen. No acute aortic findings suspected. IMPRESSION: Cardiomegaly without failure or volume overload acute findings. No focal consolidation or mass. EXAM DESCRIPTION: US - Renal Ultrasound-Complete - 10/21/2017 4:56 pm CLINICAL HISTORY: Chronic renal disease. COMPARISON: None. FINDINGS: Both kidneys are normal in size, shape and echotexture. The right kidney measures 10.9 x 5.5 x 3.3 cm. No hydronephrosis, focal mass or perinephric fluid. The left kidney measures 9.3 x 4.5 x 4.1 cm. No hydronephrosis, focal mass or perinephric fluid. IMPRESSION: Unremarkable renal sonogram. Conclusions/Impression: A/ CKD III. Systolic CHF, chronic. DM II. Anemia in chronic illness. BPH/ LUTS. P/ Continue current POC and Medications. No NSAIDs. Appreciate cardiology input. Consider iron replacement. Titrate flomax as needed. AM labs. Daily weight. Thank you kindly for the consultation.
[2017-10-21] MEDS ORDERED: RISPERIDONE 0.25 MG TABLET PO SCH (17:00)
--- NOTE | 2017-10-21 17:02 | RAD REPORT ---
EXAM DESCRIPTION: US - Renal Ultrasound-Complete - 10/21/2017 4:56 pm CLINICAL HISTORY: Chronic renal disease. COMPARISON: None. FINDINGS: Both kidneys are normal in size, shape and echotexture. The right kidney measures 10.9 x 5.5 x 3.3 cm. No hydronephrosis, focal mass or perinephric fluid. The left kidney measures 9.3 x 4.5 x 4.1 cm. No hydronephrosis, focal mass or perinephric fluid. IMPRESSION: Unremarkable renal sonogram.
[2017-10-21 20:53] VITALS: O2SAT 99
[2017-10-21] MEDS: LACTULOSE 20 GM/30 ML UCUP PO SCH (21:35)
[2017-10-21] MEDS: ATORVASTATIN 80 MG TAB PO SCH (21:45)
[2017-10-22 04:56] LABS: Absolute Lymphocytes (CBC) 1.6 K/uL (0.7-4.9); Absolute Monocytes 0.4 K/uL (0.1-1.3); Absolute Neutrophil 3.1 K/uL (1.8-8.0); Basophils % 0.5 % (0-1.3); Eosinophils % 1.5 % (0-4.4); Hematocrit 34.1 % (39.6-49.0); Lymphocytes % 29.9 % (15.3-44.8); MCH 26.4 pg (27.0-35.0); MCV 81.4 fL (80-100); MPV 10.1 fL (7.6-11.3); Monocytes % 8.2 % (3.3-12.3)
[2017-10-22 05:25] LABS: Magnesium 2.2 mg/dL (1.8-2.5); Phosphorus 4.5 mg/dL (2.5-4.3); Potassium 3.9 mEq/L (3.6-5.0); Thyroid Stimulating Hormone 1.81 uIU/mL (0.34-5.60)
[2017-10-22] MEDS: PANTOPRAZOLE 40MG TABLET PO SCH (05:43)
[2017-10-22] MEDS: LEVOTHYROXINE SOD 0.1 MG TAB PO SCH (05:43)
[2017-10-22] MEDS ORDERED: POTASSIUM CL SA 10 MEQ TAB PO ONE (05:48)
[2017-10-22] MEDS: INSULIN -REGULAR HUMAN 50 UNIT/0.5 ML ML SQ SCH (07:30)
[2017-10-22] MEDS: RIVASTIGMINE 9.5 MG/24 HR PATCH TD SCH (08:33)
[2017-10-22] MEDS ORDERED: RISPERIDONE 0.25 MG TABLET PO SCH (09:00)
[2017-10-22] MEDS: METOPROLOL TAR 25 MG TAB PO SCH (09:00)
[2017-10-22 09:05] LABS: A1c Component 0.57 mg/dL; Hemoglobin A1c 6.8 % (4-6.0)
[2017-10-22] MEDS: LOSARTAN POTASSIUM 50 MG TABLET PO SCH (09:05)
[2017-10-22] MEDS: SPIRONOLACTONE 25 MG TABLET PO SCH (09:06)
[2017-10-22] MEDS: ASPIRIN 325 MG TAB PO SCH (09:06)
[2017-10-22] MEDS: ISOSORBIDE DINIT 20 MG TAB PO SCH (09:06)
[2017-10-22] MEDS: FUROSEMIDE 40 MG TABLET PO SCH (09:06)
[2017-10-22] MEDS: CLOPIDOGREL 75 MG TABLET PO SCH (09:06)
[2017-10-22] MEDS: TAMSULOSIN 0.4 MG SR CAP PO SCH (09:06)
[2017-10-22] MEDS ORDERED: BUPIVACAINE 0.5% PF 10 ML VIAL ONE (10:09)
[2017-10-22 13:11] VITALS: BP 101/48; TEMP 98.1
--- NOTE | 2017-10-23 11:34 | DS ---
Date of Discharge: 10/22/2017 Consultants: Dr. Nuñez with Nephrology, Dr. Diaz and Dr. Rojas with Cardiology. Admitting Diagnoses: 1.Chest pain, rule out acute coronary syndrome. 2.History of congestive heart failure. 3.Hyperlipidemia. 4.Hypothyroidism. 5.Diabetes. 6.Enlarged prostate. 7.Renal insufficiency, chronic. Discharge Diagnoses: 1.Atrial flutter. 2.Diabetes mellitus type 2 without long-term use of insulin with hyperglycemia. 3.Hypothyroidism. 4.Hyperlipidemia, mixed. Statin. 5.Chest pain, resolved. 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 7.Benign prostatic hypertrophy. Continue Flomax. 8.Chronic kidney disease, stage 3. Stable. Hospital Course: The patient is an 82-year-old male with past medical history of AFib, COPD, dementi a, pacemaker dependent, diabetes, hypertension, CHF, who comes in with chest pain. The patient's tro ponin was 0.03, 0.04, and 0.03. BNP was elevated at 1470. The patient was seen by Cardiology. Echo cardiogram was done, which showed EF depressed at 25% to 29%, possibility of the patient being transf erred versus being set up as an outpatient for pacemaker defibrillator battery replacement. The augusta ent was seen by Nephrology for chronic kidney disease. Creatinine has been stable. The patient did have a stress test done, which did not show any stress-induced ischemia, did show a large fixed perfu pamela defect involving the inferior apical and left ventricular myocardium consistent with infarct, la rge area of diminished radiotracer uptake involving the septal left ventricular myocardium consistent with infarct. The patient's medications were adjusted. The Corlanor was stopped. This has been st opped in the past; however, has been restarted at the detention. Nursing will be contacted to ens ure that the patient is no longer on this medication. The patient overall did well. His chest pain resolved. His electrolytes were monitored and remained stable. His kidney function remained stable. The patient was then cleared for discharge from Cardiology standpoint to be discharged home and to followup with Dr. Ocampo, wood planer to have battery replaced or to have new device put in. Follow with PCP in 1 week. Return to ER for worsening condition. Medications: As per medication reconciliation list. Stop Corlanor. Metoprolol dose adjusted. Diet: Renal disease. Activity: Fall precautions. Physical Examination: General: Awake, alert, oriented x2. No acute distress. CV: S1, S2. No murmurs. Respiratory: Moving air well bilaterally. No wheezing. Abdomen: Soft, nontender, and nondistended. Positive bowel sounds. Extremities: No clubbing, cyanosis, edema. Neuro: Nonfocal. SA/MODL Voice ID: [id number] Report ID: [id number]
--- NOTE | 2017-10-23 19:47 | P.PN ---
Date of Service: 10/22/17 Vital Signs Temp Pulse Resp BP Pulse Ox 98.1 F 47 L 16 101/48 L 98 10/22/17 12:00 10/22/17 12:00 10/22/17 12:00 10/22/17 12:00 10/22/17 12:00 Assessment/ Plan: General: In no apparent distress, Oriented x3, Cooperative HEENT: Atraumatic Neck: Supple Respiratory: Clear to auscultation bilaterally, Normal air movement Cardiovascular: Regular rate/rhythm, Edema Gastrointestinal: Soft and benign, Non-distended Musculoskeletal: No clubbing, No contractures Integumentary: No rashes, No cyanosis Neurological: Normal speech Serum Cr 1.71 Blood work reviewed in the chart. Imagings Data: EXAM DESCRIPTION: RAD - Chest Single View - 10/19/2017 1:04 pm CLINICAL HISTORY: Chest pain COMPARISON: None. TECHNIQUE: AP portable chest image was obtained 1247 hours . FINDINGS: No focal consolidation or mass. Interstitial markings are mildly prominent, believed to be baseline. Cardiomegaly present without vascular engorgement. Defibrillator is in place. CABG surgical changes are noted. No measurable pleural effusion and no pneumothorax. No gross bony abnormality seen. No acute aortic findings suspected. IMPRESSION: Cardiomegaly without failure or volume overload acute findings. No focal consolidation or mass. EXAM DESCRIPTION: US - Renal Ultrasound-Complete - 10/21/2017 4:56 pm CLINICAL HISTORY: Chronic renal disease. COMPARISON: None. FINDINGS: Both kidneys are normal in size, shape and echotexture. The right kidney measures 10.9 x 5.5 x 3.3 cm. No hydronephrosis, focal mass or perinephric fluid. The left kidney measures 9.3 x 4.5 x 4.1 cm. No hydronephrosis, focal mass or perinephric fluid. IMPRESSION: Unremarkable renal sonogram. Conclusions/Impression: A/ CKD III. Systolic CHF, chronic. DM II. Anemia in chronic illness. Iron deficiency. BPH/ LUTS. P/ Continue current POC and Medications. No NSAIDs. Appreciate cardiology input. Recommend iron replacement. Will need an outpt colonoscopy if not done recently. Titrate flomax as needed. AM labs. Daily weight.
== END 2017-10-22 13:25 ==
LOC: ER 12:24 → ERHOLD 16:30 → 4TH 17:43
PROVIDERS: ADMIT Internal Medicine; ATTEND Internal Medicine
DX: R07.9 Chest pain, unspecified (principal); I48.92 Unspecified atrial flutter; E03.9 Hypothyroidism, unspecified; E78.5 Hyperlipidemia, unspecified; J44.9 Chronic obstructive pulmonary disease, unspecified; N40.0 Benign prostatic hyperplasia without lower urinary tract symptoms; R00.1 Bradycardia, unspecified; I13.0 Hypertensive heart and chronic kidney disease with heart failure and stage 1 through stage 4 chronic kidney disease, or unspecified chronic kidney disease; E11.22 Type 2 diabetes mellitus with diabetic chronic kidney disease; N18.3 Chronic kidney disease, stage 3 (moderate); I50.22 Chronic systolic (congestive) heart failure; D63.1 Anemia in chronic kidney disease; N40.1 Benign prostatic hyperplasia with lower urinary tract symptoms; G30.1 Alzheimer's disease with late onset; F02.80 Dementia in other diseases classified elsewhere, unspecified severity, without behavioral disturbance, psychotic disturbance, mood disturbance, and anxiety; Z87.891 Personal history of nicotine dependence; Z95.0 Presence of cardiac pacemaker
CPT/HCPCS: 36415 ×3; 71045; 76770; 78452; 80048 ×3; 80053; 80061; 80076; 81003; 82550 ×3; 82553 ×3; 82607; 82746; 82962 ×12; 83036; 83540; 83735 ×2; 83880; 84100; 84439; 84443; 84466; 84484 ×5; 85025 ×3; 85610; 93005; 93017; 93306; 94760 ×4; 99285; A9500; G0378 ×2; J1650; J2785

== ENCOUNTER 2017-12-11 20:50 | Emergency (ER) | payer OTHER ==
--- OUTSIDE RECORDS SUMMARY | 2017-12-11 21:01 | XMS REPORT | Continuity of Care Document ---
:1935 Author Organization Interface Problems Problem Status Onset Classification Date Comments Source Date Reported Irritability and anger The [address] [place] [address] Anger reaction The [address] [place] [address] Dementia The [address] [place] [address] FALL ON BLOODTHINNERS Active The 2018 [place] Discharge Diagnosis: [facility] Chronic renal 2017 7 insufficiency Discharge Diagnosis: [facility] Chronic CHF 2017 7 ABNORMAL LABS Active 05/30/ [facility] 2016 AFIB/DIZZY Active 11/02[facility] 2016 CP Active 12/27[facility] 2015 UNSTABLE ANGINA Active 05/16/ [address] CHRONIC SYSTOLIC HEART Active [facility] FAILURE 428.22 ANGINA 2012 413.9 CHRONIC SYSTOLIC HEART Active 06/22/ [facility] FAILURE 428.22 ANGINA 2012 413.9. 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 Presence of coronary Active Problem Cardiovascular angioplasty implant 8 [facility] and graft Type 2 diabetes Active Problem Cardiovascular mellitus without 8 [facility]oc complications Hyperlipidemia, Active Problem Cardiovascular unspecified 8 [facility]oc Hypothyroidism, Active Problem Cardiovascular unspecified 8 [facility]oc Chronic systolic heart Active Problem Cardiovascular failure 8 [facility] Acute on chronic Active Problem Cardiovascular systolic heart failure 8 [facility] Paroxysmal atrial Active Problem Cardiovascular fibrillation 8 [facility] Arteriovenous fistula, Active Problem Cardiovascular acquired 8 [facility]oc Non-ST elevation Active Problem Cardiovascular myocardial infarction 8 [facility] Coronary Active Diagnosis Cardiovascular atherosclerosis of 5 [facility] [place] vessel Diabetes mellitus type Active Problem Cardiovascular II 5 [facility]oc Hypertension Heart Active Problem Cardiovascular Disease - w/o CHF* 5 [facility]oc Angina of effort Active Problem Cardiovascular 5 [facility] Chronic systolic heart Active Problem Cardiovascular failure 5 [facility] S/P Automatic Active Problem Cardiovascular Defibrillator 5 Assoc S/P CABG Active Problem Cardiovascular 5 [facility] Hypercholesterolemia Active Problem Cardiovascular NOS 5 [facility]oc Hypothyroidism Active Problem Cardiovascular 5 [facility] s/p PTCA or Stent Active Problem Cardiovascular 6 [facility]oc Diabetes mellitus Type Active Problem Cardiovascular 2 without 6 Assoc complications Unspecified dementia The without behavioral [address] [place] [address] disturbance Laceration without The foreign body of left [address] [place] [address] elbow, initial encounter Abrasion of scalp, The initial encounter [address] [place] [address] Abrasion of right The forearm, initial [address] [place] [address] encounter Striking against other The stationary object, [address] [place] [address] initial encounter Essential hypertension The [address] [place] [address] 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[place] [address] [place] [address] coronary artery without angina 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 [address] [place] [address] Personal history of The nicotine dependence [address] [place] [address] Encounter for The immunization [address] [place] [address] CAD (<span Active Problem [facility], ID="[id number]">Conf [address] [place] [address] irmed</span>) [place], [place] Heart failure Active Problem [facility] Outpatient 8 Imaging [facility] [place] HTN (<span Resolved Problem [facility], ID="[id number]">Conf 8 [facility] irmed</span>) [facility] [place] (<span Resolved Problem [facility], ID="[id number]">Conf 8 [facility] irmed</span>) [facility] [place] CHR SYSTOLIC HRT Active [facility] FAILURE ANGINA PECTORIS, Active [facility] ENCOUNTER FOR Active [facility] SCREENING FOR Medical Center MALIGNANT NE NON-ST ELEVATION Active [facility] (NSTEMI) MYOCARDIAL INF CHEST PAIN, Active [facility] UNSPECIFIED UNSPECIFIED ATRIAL Active [facility] FIBRILLATION Medications Medication Details Route Status Patient Ordering Order Source Instructions Provider Date Saline Flush 10 mL, Inactive The 0.9% Route: IVP2017 [place] Drug Form: INJ, Dosing Weight 83.182, kg, PRN, PRN Line Flush, Start date: 08/06/17 1:02:00 [employer] WORK[employer], Duration: 30 day, Stop date: 09/05/17 2:01:00 CDTNotes: Same as: BD Posiflush Sterile Saline Flush 10 mL, Inactive 0.9% Route: IVP2016 [facility] Drug Form: INJ, Dosing Weight 83.182, kg, PRN, PRN Line Flush, Start date: 05/30/17 11:48:00 FAT [employer]RO[employer] WORKER, Duration: 1 day, Stop date: 05/31/17 11:47:00 CSTNotes: (Same as: BD Posiflush) apixaban 2.5 mg 2.5 mg=1 Active oral tablet tab, PO, 2016 [facility] Q12H, # 60 tab, 0 Refill(s) 24 HR 25 mg=1 Active Metoprolol tab, PO, 2016 Tartrate 25 MG Q12H, # 60 Extended tab, 0 Release Tablet Refill(s) [Toprol] glimepiride 1 mg, No Longer Route: PO, Active 2016 Daily, Dosing Weight 85, kg, Start date: 11/03/16 9:00:00 CDT, Duration: 30 day, Stop date: 12/02/16 9:00:00 CDT Furosemide 40 40 mg, 1 Inactive MG Oral Tablet tab, Route: 2016 [facility] PO, Drug form: TAB, Daily, Dosing Weight 85, kg, Start date: 11/03/16 9:00:00 CDT, Duration: 30 day, Stop date: 12/02/16 9:00:00 CDTNotes: (Same as: Lasix) May cause GI upset. Give with food or milk. Losartan 50 mg, 1 Inactive tab, Route: 2016 [facility] PO, Drug form: TAB, Daily, Dosing Weight 85, kg, Start date: 11/03/16 9:00:00 CDT, Duration: 30 day, Stop date: 12/02/16 9:00:00 CDTNotes: (Same as: Cozaar) Glucotrol 5 mg, [address] tab, Route: 2016 [facility] PO, Drug form: TAB, Daily, Start date: 11/03/16 9:00:00 CDT, Duration: 30 day, Stop date: 12/02/16 9:00:00 CDTNotes: (Same as: Glucotrol) 30 min before meals. Eliquis 2.5 mg, 1 Inactive 11/03[facility] tab, Route: 2016 [facility] PO, Drug form: TAB, Q12H, Dosing Weight 83.636, kg, Start date: 11/03/16 9:00:00 CDT, Duration: 30 day, Stop date: 12/02/16 21:00:00 CDTNotes: Same as: Eliquis tamsulosin 0.4 mg, 1 Inactive 11/03[facility] cap, Route: 2016 [facility] PO, Drug form: CAP, Daily, Dosing Weight 85, kg, Start date: 11/03/16 9:00:00 CDT, Duration: 30 day, Stop date: 12/02/16 9:00:00 CDTNotes: (Same As: Flomax) "Do Not Crush" Aldactone 25 mg, 1 Inactive 11/03[facility] tab, Route: 2016 [facility] PO, Drug form: TAB, Daily, Dosing Weight 85, kg, Start date: 11/03/16 9:00:00 CDT, Duration: 30 day, Stop date: 12/02/16 9:00:00 CDTNotes: (Same As: Aldactone) Synthroid 200 Inactive 11/03[facility] microgram, 2016 [facility] 2 tab, Route: PO, Drug form: TAB, Q630AM, Dosing Weight 85, kg, Start date: 11/03/16 6:30:00 CDT, Duration: 30 day, Stop date: 12/02/16 6:30:00 CDTNotes: Take 1 hour before or 2 hours after meal; Enteral feeds may interefere with the absorption of this medication. (Same as:Levothro id, Synthroid) Insulin, 3 unit, No Longer Aspart, Human 0.03 mL, Active 2016 [facility] Route: SUB-Q, Drug form: SOLN, Bedtime, Dosing Weight 83.636, kg, PRN Blood Glucose Results, Start date: 11/02/16 21:49:00 CDT, Duration: 30 day, Stop date: 12/02/16 21:48:00 CDTNotes: Roll in palms of hands gently; Do not shake vigorously. (Same as: NovoLOG) "single patient use only" WASTE: F/P - Black; E - Municipal Trash Bin Stable for 28 days at room temperature . Expires in days from ___Date Glucagon 1 mg, Inactive Route: IM, 2016 [facility] PRN, Dosing Weight 83.636, kg, PRN Blood Glucose Results, Start date: 11/02/16 21:49:00 CDT, Duration: 30 day, Stop date: 12/02/16 21:48:00 CDT Dextrose 50% 25 mL, Inactive Syringe Route: IVP, 2016 [facility] Dosing Weight 83.636, kg, PRN, PRN Blood Glucose Results, Start date: 11/02/16 21:49:00 CDT, Duration: 30 day, Stop date: 12/02/16 21:48:00 CDT Morphine 2 mg, 1 mL, No Longer Route: IVP, Active 2016 [facility] Drug form: INJ, Q4H, Dosing Weight 83.636, kg, PRN Pain Score 7-10, Start date: 11/02/16 21:45:00 CDT, Duration: 30 day, Stop date: 12/02/16 21:44:00 CDTNotes: (Same as:MORPhine Sulfate) Benadryl 25 mg, 1 Inactive tab, Route: 2016 [facility] PO, Drug form: TAB, ONCE, Dosing Weight 83.636, kg, PRN Insomnia, Start date: 11/02/16 21:43:00 CDT Lipitor 10 mg, 1 No Longer tab, Route: Active 2016 [facility] PO, Drug form: TAB, Bedtime, Dosing Weight 85, kg, Start date: 11/02/16 21:00:00 CDT, Duration: 30 day, Stop date: 12/01/16 21:00:00 CDTNotes: (Same As: Lipitor) Ranexa 1,000 mg, 2 No Longer tab, Route: Active 2016 [facility] PO, Drug form: TAB, Q12H, Dosing Weight 85, kg, Start date: 11/02/16 21:00:00 CDT, Duration: 30 day, Stop date: 12/02/16 9:00:00 CDTNotes: Same as Ranexa "Do Not Crush" Prilosec 20 mg, Inactive Route: PO, 2016 [facility] Drug form: DRC, Bedtime, Dosing Weight 85, kg, Start date: 11/02/16 21:00:00 CDT, Duration: 30 day, Stop date: 12/01/16 21:00:00 CDT 24 HR 25 mg, 1 No Longer Metoprolol tab, Route: Active 2016 [facility] Tartrate 25 MG PO, Drug Extended form: Release Tablet ERTAB, [Toprol] Q12H, Start date: 11/02/16 21:00:00 CDT, Duration: 30 day, Stop date: 12/02/16 9:00:00 CDTNotes: (Same as: Toprol XL) Do Not Crush Hydralazine 10 mg, 0.5 No Longer mL, Route: Active 2016 [facility] IVP, Drug form: INJ, Q4H, Dosing Weight 85, kg, PRN Hypertensio n, Start date: 11/02/16 16:38:00 CDT, Duration: 30 day, Stop date: 12/02/16 16:37:00 CDTNotes: (Same as: Apresoline) Push over 5 minutes clopidogrel 75 mg, 1 No Longer tab, Route: Active 2016 [facility] PO, Drug form: TAB, Daily, Dosing Weight 85, kg, Start date: 11/02/16 16:30:00 CDT, Duration: 30 day, Stop date: 12/02/16 9:00:00 CDTNotes: (Same As: Plavix) aspirin 81 mg 81 mg, 1 No Longer tablet, enteric tab, Route: Active 2016 [facility] coated PO, Drug form: ECTAB, Daily, Dosing Weight 85, kg, Start date: 11/02/16 16:30:00 CDT, Duration: 30 day, Stop date: 12/02/16 9:00:00 CDTNotes: Do not crush or chew. (Same As: Ecotrin) Protonix 40 mg, 1 No Longer tab, Route: Active 2016 [facility] PO, Drug form: ECTAB, Before Dinner, Start date: 11/02/16 16:30:00 CDT, Duration: 30 day, Stop date: 12/01/16 16:30:00 CDTNotes: Tablet should not be chewed or crushed. (Same as: Protonix) 24 HR 25 mg, 1 Inactive Metoprolol tab, Route: 2016 [facility] Tartrate 25 MG PO, Drug Extended form: Release Tablet ERTAB, [Toprol] Daily, Start date: 11/02/16 16:30:00 CDT, Duration: 30 day, Stop date: 12/02/16 9:00:00 CDTNotes: (Same as: Toprol XL) Do Not Crush 24 HR 12.5 mg, No Longer Metoprolol PO, Daily, Active 2016 [facility] Tartrate 25 MG 0 Refill(s) Extended Release Tablet [Toprol] Insulin, 5 unit, No Longer Aspart, Human 0.05 mL, Active 2016 [facility] Route: SUB-Q, Drug form: SOLN, TID-Before Meals, Dosing Weight 85, kg, PRN Blood Glucose Results, Start date: 11/02/16 14:36:00 CDT, Duration: 30 day, Stop date: 12/02/16 14:35:00 CDTNotes: Roll in palms of hands gently; Do not shake vigorously. (Same as: NovoLOG) "single patient use only" WASTE: F/P - Black; E - Municipal Trash Bin Stable for 28 days at room temperature . Expires in days from ___Date Glucagon 1 mg, No Longer Route: IM, Active 2016 [facility] Drug form: PDR/INJ, PRN, Dosing Weight 85, kg, PRN Blood Glucose Results, Start date: 11/02/16 14:36:00 CDT, Duration: 30 day, Stop date: 12/02/16 14:35:00 CDT Dextrose 50% 25 gm, 50 No Longer Syringe mL, Route: Active 2016 [facility] IVP, Drug Form: INJ, Dosing Weight 85, kg, PRN, PRN Blood Glucose Results, Start date: 11/02/16 14:36:00 CDT, Duration: 30 day, Stop date: 12/02/16 14:35:00 CDT Metoprolol 5 mg, 5 mL, No Longer Route: IVP, Active 2016 [facility] Drug form: INJ, Q4H, Dosing Weight 85, kg, PRN Tachycardia , Start date: 11/02/16 14:28:00 CDT, Duration: 30 day, Stop date: 12/02/16 14:27:00 CDTNotes: (Same as: Lopressor) Push over 2 minutes Lasix 1 tab(s) orally Active 40 mg orally [place] 09/25/ Cardiovasc once a day 2016 [facility] atorvastatin 10 10 mg=1 Active MG Oral Tablet tab, PO, 2015 [facility] [Lipitor] Bedtime carvedilol 6.25 mg=2 Active 3.125 mg oral tab, PO, 2015 tablet BID, 0 Refill(s) Aspirin 81 MG 81 mg, 1 No Longer Enteric Coated tab, Route: Active 2015 [facility] Tablet PO, Drug form: ECTAB, Daily, Dosing Weight 83.455, kg, Start date: 12/30/15 9:00:00 CDT, Duration: 30 day, Stop date: 01/28/16 9:00:00 CDTNotes: Do not crush or chew. (Same As: Ecotrin) Furosemide 40 40 mg, 1 Inactive MG Oral Tablet tab, Route: 2015 [facility] PO, Drug form: TAB, Daily, Dosing Weight 83.455, kg, Start date: 12/30/15 9:00:00 CDT, Duration: 30 day, Stop date: 01/28/16 9:00:00 CDTNotes: (Same as: Lasix) May cause GI upset. Give with food or milk. Aspirin 325 MG 325 mg, 1 Inactive Enteric Coated tab, Route: 2015 [facility] Tablet PO, Drug form: TAB, Daily, Dosing Weight 83.455, kg, Start date: 12/30/15 9:00:00 CDT, Duration: 30 day, Stop date: 01/28/16 9:00:00 CDTNotes: Take with food. clopidogrel 75 mg, No Longer Route: PO, Active 2015 [facility] Drug form: TAB, Daily, Dosing Weight 83.455, kg, Start date: 12/30/15 9:00:00 CDT, Duration: 30 day, Stop date: 01/28/16 9:00:00 CDT Losartan 50 mg, 1 Inactive tab, Route: 2015 [facility] PO, Drug form: TAB, Daily, Dosing Weight 83.455, kg, Start date: 12/30/15 9:00:00 CDT, Duration: 30 day, Stop date: 01/28/16 9:00:00 CDTNotes: (Same as: Zohra) Synthroid 200 Inactive microgram, 2015 [facility] 2 tab, Route: PO, Drug form: TAB, Daily, Dosing Weight 83.455, kg, Start date: 12/30/15 6:30:00 CDT, Duration: 30 day, Stop date: 01/28/16 6:30:00 CDTNotes: Take 1 hour before or 2 hours after meal; Enteral feeds may interefere with the absorption of this medication. (Same as:Levothro id, Synthroid) Coreg 6.25 mg, 2 No Longer tab, Route: Active 2015 [facility] PO, Drug form: TAB, BID, Dosing Weight 83.455, kg, Start date: 12/29/15 21:00:00 CDT, Duration: 30 day, Stop date: 01/28/16 9:00:00 CDTNotes: Give with food. (Same As: Coreg) Lipitor 40 mg, 1 Inactive tab, Route: 2015 [facility] PO, Drug form: TAB, Bedtime, Start date: 12/29/15 21:00:00 CDT, Duration: 30 day, Stop date: 01/27/16 21:00:00 CDTNotes: (Same as: Lipitor) rosuvastatin 10 rosuvastati No Longer mg tab n [address] [facility] tab, 20 mg, 2 tab, Drug form: MISC, Route: PO, Bedtime, 12/29/15 21:00:00 CDT, Duration: 30 day, Stop date: 01/27/16 21:00:00 CDTNotes: (Same as: Crestor) Crestor 20 mg, Inactive Route: PO, 2015 [facility] Drug form: TAB, Bedtime, Dosing Weight 83.455, kg, Start date: 12/29/15 21:00:00 CDT, Duration: 30 day, Stop date: 01/27/16 21:00:00 CDT Ranexa 1,000 mg, 2 No Longer tab, Route: Active 2015 [facility] PO, Drug form: TAB, BID, Dosing Weight 83.455, kg, Start date: 12/29/15 21:00:00 CDT, Duration: 30 day, Stop date: 01/28/16 9:00:00 CDTNotes: Same as Ranexa "Do Not Crush" Prilosec 20 mg, Inactive Route: PO, 2015 [facility] Drug form: DRC, Bedtime, Dosing Weight 83.455, kg, Start date: 12/29/15 21:00:00 CDT, Duration: 30 day, Stop date: 01/27/16 21:00:00 CDT tamsulosin 0.4 mg, 1 No Longer cap, Route: Active 2015 [facility] PO, Drug form: CAP, Daily, Dosing Weight 83.455, kg, Start date: 12/29/15 18:00:00 CDT, Duration: 30 day, Stop date: 01/27/16 18:00:00 CDTNotes: (Same As: Flomax) "Do Not Crush" Aldactone 25 mg, 1 No Longer tab, Route: Active 2015 [facility] PO, Drug form: TAB, BID, Dosing Weight 83.455, kg, Start date: 12/29/15 17:00:00 CDT, Duration: 30 day, Stop date: 01/28/16 9:00:00 CDTNotes: (Same As: Aldactone) glimepiride 1 mg, 0.5 No Longer tab, Route: Active 2015 [facility] PO, Drug form: TAB, BID-Meals, Dosing Weight 83.455, kg, Start date: 12/29/15 17:00:00 CDT, Duration: 30 day, Stop date: 01/28/16 8:00:00 CDTNotes: (Same as: Amaryl) Protonix 40 mg, 1 No Longer tab, Route: Active 2015 [facility] PO, Drug form: ECTAB, Before Dinner, Start date: 12/29/15 16:30:00 CDT, Duration: 30 day, Stop date: 01/27/16 16:30:00 CDTNotes: Tablet should not be chewed or crushed. (Same as: Protonix) Acetaminophen 1 tab, No Longer 325 MG / Route: PO, Active 2015 [facility] Hydrocodone Drug Form: Bitartrate 7.5 TAB, Dosing MG Oral Tablet Weight [[place] 7.5/325] 83.455, kg, Q6H, PRN Pain Score 4-6, Start date: 12/29/15 16:20:00 CDT, Duration: 30 day, Stop date: 01/28/16 16:19:00 CDTNotes: Same as [place] 325-7.5mg Do not exceed 4gm/day of acetaminoph en. Nitroglycerin 0.4 mg, 1 No Longer tab, Route: Active 2015 [facility] SL, Drug form: TAB, Q5Min, Dosing Weight 83.455, kg, PRN Chest Pain, Start date: 12/29/15 15:39:00 CDT, Duration: 30 day, Stop date: 01/28/16 15:38:00 CDTNotes: (Same as:Nitroqui ck, Nitrostat) "Do Not Crush" Sublingual tablet Famotidine 20 mg, 1 No Longer tab, Route: Active 2015 [facility] PO, Drug form: TAB, Q12H, Dosing Weight 83.455, kg, PRN Heartburn, Start date: 12/29/15 15:39:00 CDT, Duration: 30 day, Stop date: 01/28/16 15:38:00 CDTNotes: (Same as: Pepcid) Nitroglycerin 0.4 mg, Inactive Route: 2015 [facility] Transdermal , PRN, Dosing Weight 83.455, kg, PRN Abnormal Lab Result, Start date: 12/29/15 15:36:00 CDT, Duration: 30 day, Stop date: 01/28/16 15:35:00 CDT Insulin, 4 unit, No Longer Aspart, Human 0.04 mL, Active 2015 [facility] Route: SUB-Q, Drug form: SOLN, Bedtime, Dosing Weight 83.455, kg, PRN Blood Glucose Results, Start date: 12/29/15 14:46:00 CDT, Duration: 30 day, Stop date: 01/28/16 14:45:00 CDTNotes: Roll in palms of hands gently; Do not shake vigorously. (Same as: NovoLOG) "single patient use only" WASTE: F/P - Black; E - Municipal Trash Bin Stable for 28 days at room temperature . Expires in days from ___Date Glucagon 1 mg, No Longer Route: IM, Active 2015 [facility] Drug form: PDR/INJ, PRN, Dosing Weight 83.455, kg, PRN Blood Glucose Results, Start date: 12/29/15 14:46:00 CDT, Duration: 30 day, Stop date: 01/28/16 14:45:00 CDT Dextrose 50% 25 gm, 50 No Longer Syringe mL, Route: Active 2015 [facility] IVP, Drug Form: INJ, Dosing Weight 83.455, kg, PRN, PRN Blood Glucose Results, Start date: 12/29/15 14:46:00 CDT, Duration: 30 day, Stop date: 01/28/16 14:45:00 CDT Acetaminophen 650 mg, 2 No Longer tab, Route: Active 2015 [facility] PO, Drug form: TAB, Q6H, Dosing Weight 83.455, kg, PRN Pain Score 1-3, Start date: 12/29/15 12:43:00 CDT, Duration: 30 day, Stop date: 01/28/16 12:42:00 CDTNotes: Do not exceed 4 gm/day. (Same as: Tylenol) Sodium Chloride 600 mL, Inactive 0.154 MEQ/ML Rate: [address] [facility] Injectable ml/hr, Solution Infuse over: 6 hr, Route: IV, Dosing Weight 83.455 kg, Total Volume: 600, Priority: NOW, Start date: 12/29/15 9:38:00 CDT, Stop date: 12/29/15 21:37:00 CDT Plavix 75 mg, 1 No Longer tab, Route: Active 2015 [facility] PO, Drug form: TAB, Daily, Dosing Weight 83.455, kg, Priority: NOW, Start date: 12/29/15 9:09:00 CDT, Duration: 30 day, Stop date: 01/28/16 9:00:00 CDTNotes: (Same As: Plavix) Aspirin 325 MG 325 mg, 1 Inactive Enteric Coated tab, Route: 2015 [facility] Tablet PO, Daily, Dosing Weight 83.455, kg, Priority: NOW, Start date: 12/29/15 9:09:00 CDT, Duration: 30 day, Stop date: 01/28/16 9:00:00 CDT Streptococcus 0.5 mL, Inactive pneumoniae Route: IM, 2015 [facility] serotype 1 Drug Form: capsular INJ, Daily, antigen Start date: diphtheria 12/29/15 [id number] protein 9:00:00 conjugate CDT, vaccine / Duration: 1 Streptococcus doses or pneumoniae times, Stop serotype 14 date: capsular 12/29/15 antigen 9:00:00 diphtheria CDTNotes: [id number] protein Lightly conjugate roll vial vaccine / (DO NOT Streptococcus SHAKE) pneumoniae before serotype 18C administrat capsular ion. (Same antigen d as: Prevnar 13) glimepiride 1 mg, PO, Active BID-Meals, 2015 [facility] 0 Refill(s) Saline Flush 10 ml, No Longer 0.9% Route: IVP, Active 2015 [facility] Drug Form: INJ, Dosing Weight 83.455, kg, Q12H, Start date: 12/28/15 21:00:00 CDT, Duration: 30 day, Stop date: 01/27/16 9:00:00 CDTNotes: (Same as: BD Posiflush) Zofran 4 mg, 2 mL, No Longer Route: IVP, 2015 [facility] Drug form: INJ, Q8H, Dosing Weight 84.716, kg, PRN as needed for nausea/vomi ting, Start date: 12/28/15 19:06:00 CDT, Duration: 30 day, Stop date: 01/27/16 19:05:00 CDTNotes: (Same as: Zofran) MEDICATION WASTE Product Size: 4 mg Product Wasted: ___ mg Saline Flush 10 ml, No Longer 0.9% Route: IVP, Active 2015 [facility] Drug Form: INJ, Dosing Weight 83.455, kg, PRN, PRN Line Flush, Start date: 12/28/15 19:06:00 CDT, Duration: 30 day, Stop date: 01/27/16 19:05:00 CDTNotes: (Same as: BD Posiflush) Nitroglycerin 0.4 mg, 1 No Longer tab, Route: 2015 [facility], Drug form: TAB, Q5Min, Dosing Weight 83.455, kg, PRN Chest Pain, Start date: 12/28/15 19:06:00 CDT, Duration: 3 doses or times, Stop date: Limited # of timesNotes: (Same as:Nitroqui ck, Nitrostat) "Do Not Crush" Sublingual tablet Heparin 30 Route: IVP, No Longer unit/kg Bolus PRN, 2,200 2015 [facility] (Heparin Dosing unit, 2.2 Weight) mL, Drug form: INJ, PRN, Heparin Protocol, Start date: 12/28/15 16:59:00 CDT Stop date: 01/27/16 16:58:00 CDT, 30 day heparin 500 mL, No Longer additive 25,000 Rate: 17.65 2015 [facility] unit [12 ml/hr, unit/kg/hr] + Infuse Premix Diluent over: 28.3 Dextrose 5% 500 hr, Route: mL IV, Dosing Weight 73.55 kg, Total Volume: 500 mL, Start date: 12/28/15 16:59:00 CDT, Duration: 30 day, Stop date: 01/27/16 16:58:00 CDT Heparin 60 Route: IVP, No Longer unit/kg Bolus PRN, 4,[address] [facility] (Heparin Dosing unit, 4.4 Weight) mL, Drug form: INJ, PRN, Heparin Protocol, Start date: 12/28/15 16:59:00 CDT Stop date: 01/27/16 16:58:00 CDT, 30 day Heparin - one 4,000 unit, Inactive time bolus for 4 mL, 2015 [facility] Route: IV, Drug form: INJ, ONCE, Dosing Weight 84.716, kg, Priority: STAT, Start date: 12/28/15 16:59:00 CDT, Stop date: 12/28/15 16:59:00 CDT Aspirin 325 mg, 1 Inactive tab, Route: 2015 [facility] PO, Drug form: TAB, ONCE, Dosing Weight 84.716, kg, Priority: STAT, Start date: 12/28/15 16:29:00 CDT, Stop date: 12/28/15 16:29:00 CDTNotes: Take with food. Aspirin 81 MG 81 mg=1 Active [place] [facility] Coated tab, PO, 2014 [facility] Tablet Daily, 0 Center Refill(s) clopidogrel 75 75 mg=1 Active [place] mg oral tablet tab, PO, 2014 Medical Daily, # 90 Center tab, 2 Refill(s) heparin 5,000 unit, No Longer [place] 1 mL, Active 2014 Medical Route: Center SUB-Q, Drug form: INJ, Q8H, Dosing Weight 85, kg, Start date: 05/21/15 16:00:00, Duration: 30 day, Stop date: 06/20/15 8:00:00Note s: porcine heparin Tylenol 650 mg, 2 No Longer [place] tab, Route: Active 2014 Medical PO, Drug Center form: TAB, Q6H, Dosing Weight 85, kg, PRN Pain Score 1-3, Start date: 05/21/15 0:22:00, Duration: 30 day, Stop date: 06/20/15 0:21:00Note s: Do not exceed 4 gm/day. (Same as: Tylenol) potassium 40 mEq, 2 No Longer [place] chloride tab, Route: Active 2014 Medical PO, Drug Center form: ERTAB, Q12H, Dosing Weight 85, kg, Start date: 05/20/15 21:00:00, Stop date: 05/21/15 21:00:00Not es: (Same as: K-Dur 20) "Do Not Crush" With food and full glass of water normal saline 1,000 mL, No Longer [place] 0.9% IV 1,000 Rate: 50 Active 2014 Medical mL ml/hr, Center Infuse over: 20 hr, Route: IV, Dosing Weight 85 kg, Total Volume: 1,000, Start date: 05/20/15 19:26:00, Duration: 30 day, Stop date: 06/19/15 19:25:00 Sodium Chloride 125 mL, 125 Inactive [place] 0.154 MEQ/ML ml/hr, 2014 Medical Injectable Infuse Center Solution Over: 1 hr, Route: IV, ONCE, Priority: STAT, Dosing Weight 85 kg, Start date: 05/20/15 19:14:00, Duration: 1 doses or times, Stop date: 05/20/15 19:14:00 Magnesium 2 gm, 50 Inactive [place] Sulfate mL, Route: 2014 Medical IVPB, Drug Center form: INJ, ONCE, Dosing Weight 85, kg, Total dose=2 gm, Start date: 05/20/15 19:03:00, Duration: 1 doses or times, Stop date: 05/20/15 19:03:00 Atropine 0.5 mg, 5 Inactive [place] mL, Route: 2014 Medical IVP, Drug Center form: INJ, ONCE, Dosing Weight 85, kg, Start date: 05/20/15 18:30:00, Stop date: 05/20/15 18:30:00 Magnesium Oxide 400 mg, 1 Active [place] tab, Route: 2014 Medical PO, Drug Center form: TAB, BID, Dosing Weight 85, kg, Priority: NOW, Start date: 05/20/15 18:12:00, Stop date: 05/22/15 17:00:00Not es: (Same as: Mag-Ox 400) Magnesium oxide [id number] elemental magnesium Dose=____mg magnesium oxide (___mg elemental magnesium) Hydralazine 10 mg, 0.5 Inactive [place] mL, Route: 2014 Medical IV, Drug Center form: INJ, ONCE, Dosing Weight 85, kg, Start date: 05/20/15 17:33:00, Stop date: 05/20/15 17:33:00Not es: (Same as: Apresoline) Push over 5 minutes potassium 20 mEq, 100 Inactive [place] chloride mL, Route: 2014 Medical IVPB, Drug Center form: INJ, ONCE, Dosing Weight 85, kg, Start date: 05/20/15 15:01:00, Stop date: 05/20/15 15:01:00, Central LineNote s: (Same as: KCL) Infuse no faster than 10 mEq/hr if given peripherall y. Potassium 40 mEq, 30 Inactive [place] Chloride 1.33 mL, Route: 2014 Medical MEQ/ML Oral PO, Drug Center Solution form: LIQ, ONCE, Dosing Weight 85, kg, Start date: 05/20/15 15:01:00, Stop date: 05/20/15 15:01:00Not es: (Same as: Potassium Chloride) Nitroglycerin 0.4 mg, 1 No Longer [place] tab, Route: Active 2014 Medical SL, Drug Center form: TAB, Q5Min, Dosing Weight 85, kg, PRN Chest Pain, Start date: 05/20/15 13:14:00, Duration: 3 doses or times, Stop date: Limited # of timesNotes: (Same as:Nitroqui ck, Nitrostat) "Do Not Crush" Sublingual tablet Plavix 75 mg, 1 No Longer [place] tab, Route: Active 2014 Medical PO, Drug Center form: TAB, Daily, Dosing Weight 85, kg, Start date: 05/20/15 9:00:00, Duration: 30 day, Stop date: 06/18/15 9:00:00Note s: (Same As: Plavix) Lactulose 667 10 gm, 15 No Longer [place] MG/ML Oral mL, Route: Active 2014 Medical Solution PO, Drug Center Form: SYRP, Dosing Weight 85, kg, QID, PRN as needed for constipatio n, Start date: 05/19/15 23:08:00, Duration: 30 day, Stop date: 06/18/15 23:07:00Not es: (Same as:[place] c) normal saline 1,000 mL, No Longer [place] 0.9% IV 1,000 Rate: 75 Active 2014 Medical mL ml/hr, Center Infuse over: 13.3 hr, Route: IV, Dosing Weight 85 kg, Total Volume: 1,000, Start date: 05/19/15 23:08:00, Duration: 30 day, Stop date: 06/18/15 23:07:00 Plavix 300 mg, 1 Inactive [place] tab, Route: 2014 Medical PO, Drug Center form: TAB, ONCE, Dosing Weight 85, kg, Priority: Within 4 hours, Start date: 05/19/15 12:39:00, Duration: 1 doses or times, Stop date: 05/19/15 12:39:00Not es: ( Same as: Plavix) Miralax 17 gm, 1 No Longer [place] pkt, Route: Active 2014 Medical PO, Drug Center form: PWDR, Daily, Dosing Weight 85, kg, Priority: NOW, Start date: 05/18/15 16:37:00, Duration: 30 day, Stop date: 06/17/15 9:00:00Note s: Dissolve in 8 oz of water or juice. (Same as: Miralax) sennosides, [facility] 8.6 mg, 1 No Longer [place] tab, Route: Active 2014 Medical PO, Drug Center Form: TAB, Dosing Weight 85, kg, Daily, NOW, Start date: 05/18/15 16:37:00, Duration: 30 day, Stop date: 06/17/15 9:00:00Note s: (Same as: Senokot) Docusate 100 mg, Inactive [place] Route: PO, 2014 Medical Drug form: Center CAP, Daily, Dosing Weight 85, kg, Priority: NOW, Start date: 05/18/15 16:37:00, Duration: 30 day, Stop date: 06/17/15 9:00:00 Lipitor 40 mg, 2 No Longer [place] tab, Route: Active 2014 Medical PO, Drug Center form: TAB, Bedtime, Start date: 05/17/15 21:00:00, Duration: 30 day, Stop date: 06/15/15 21:00:00Not es: (Same As: Lipitor) Crestor 20 mg, Inactive [place] Route: PO, 2014 Medical Drug form: Center TAB, Bedtime, Dosing Weight 85, kg, Start date: 05/17/15 21:00:00, Duration: 30 day, Stop date: 06/15/15 21:00:00 Prilosec 20 mg, Inactive [place] Route: PO, 2014 Medical Drug form: Center DRC, Bedtime, Dosing Weight 85, kg, Start date: 05/17/15 21:00:00, Duration: 30 day, Stop date: 06/15/15 21:00:00 Docusate Sodium 100 mg, 1 No Longer [place] 100 MG Oral cap, Route: Active 2014 Medical Capsule PO, Drug Center [Colace] form: CAP, BID, Dosing Weight 85, kg, Start date: 05/17/15 17:00:00, Duration: 30 day, Stop date: 06/16/15 9:00:00Note s: (Same as: Colace) (Do Not Crush) Protonix 40 mg, 1 No Longer [place] tab, Route: Active 2014 Medical PO, Drug Center form: ECTAB, Before Dinner, Start date: 05/17/15 16:30:00, Duration: 30 day, Stop date: 06/15/15 16:30:00Not es: Tablet should not be chewed or crushed. (Same as: Protonix) Aspirin 81 mg, 1 No Longer [place] tab, Route: Active 2014 Medical PO, Drug Center form: ECTAB, Daily, Dosing Weight 85, kg, Start date: 05/17/15 9:00:00, Duration: 30 day, Stop date: 06/15/15 9:00:00Note s: Do not crush or chew. (Same As: Ecotrin) Furosemide 40 40 mg, 1 No Longer [place] MG Oral Tablet tab, Route: Active 2014 Medical PO, Drug Center form: TAB, Daily, Dosing Weight 85, kg, Start date: 05/17/15 9:00:00, Duration: 30 day, Stop date: 06/15/15 9:00:00Note s: (Same as: Lasix) May cause GI upset. Give with food or milk. Aldactone 25 mg, 1 No Longer [place] tab, Route: Active 2014 Medical PO, Drug Center form: TAB, BID, Dosing Weight 85, kg, Start date: 05/17/15 9:00:00, Duration: 30 day, Stop date: 06/15/15 17:00:00Not es: (Same As: Aldactone) Ranexa 1,000 mg, 2 No Longer [place] tab, Route: Active 2014 Medical PO, Drug Center form: TAB, BID, Dosing Weight 85, kg, Start date: 05/17/15 9:00:00, Duration: 30 day, Stop date: 06/15/15 17:00:00Not es: Same as Ranexa "Do Not Crush" Losartan 50 mg, 1 No Longer [facility] tab, Route: Active 2014 Medical PO, Drug Center form: TAB, Daily, Dosing Weight 85, kg, Start date: 05/17/15 9:00:00, Duration: 30 day, Stop date: 06/15/15 9:00:00Note s: (Same as: Cozaar) Coreg 6.25 mg, 1 No Longer [facility] tab, Route: Active 2014 Medical PO, Drug Center form: TAB, BID, Dosing Weight 85, kg, Start date: 05/17/15 9:00:00, Duration: 30 day, Stop date: 06/15/15 17:00:00Not es: Give with food. (Same As: Coreg) tamsulosin 0.4 mg, 1 No Longer [place] cap, Route: Active 2014 Medical PO, Drug Center form: CAP, After Breakfast, Dosing Weight 85, kg, Start date: 05/17/15 8:30:00, Duration: 30 day, Stop date: 06/15/15 8:30:00Note s: (Same As: Flomax) "Do Not Crush" Synthroid 200 No Longer [place] microgram, Active 2014 Medical 1 tab, Center Route: PO, Drug form: TAB, Q630AM, Dosing Weight 85, kg, Start date: 05/17/15 6:30:00, Duration: 30 day, Stop date: 06/15/15 6:30:00Note s: Take 1 hour before or 2 hours after meal; Enteral feeds may interefere with the absorption of this medication. (Same as: Levothroid) heparin sodium, Route: IVP, No Longer [place] porcine 1000 PRN, 4,400 Active 2014 Medical UNT/ML unit, 4.4 Center Injectable mL, Drug Solution form: INJ, PRN, Heparin Protocol, Start date: 05/17/15 1:38:00 Stop date: 06/16/15 1:37:00, 30 day heparin 500 mL, No Longer [place] additive 25,000 Rate: 17.68 Active 2014 Medical unit [12 ml/hr, Center unit/kg/hr] + Infuse Premix Diluent over: 28.3 Dextrose 5% 500 hr, Route: mL IVPB, Dosing Weight 73.66 kg, Total Volume: 500 mL, Start date: 05/17/15 1:38:00, Duration: 30 day, Stop date: 06/16/15 1:37:00 Plavix 75 mg, 1 Inactive tab, Route: 2014 [facility] PO, Drug form: TAB, Daily, Dosing Weight 83.2, kg, Start date: 05/16/15 9:00:00, Duration: 30 day, Stop date: 06/14/15 9:00:00Note s: (Same As: Plavix) Plavix 600 mg, 2 Inactive tab, Route: 2014 [facility] PO, Drug form: TAB, ONCE, Dosing Weight 83.2, kg, Priority: NOW, Start date: 05/15/15 10:37:00, Duration: 1 doses or times, Stop date: 05/15/15 10:37:00Not es: ( Same as: Plavix) Insulin, 10 unit, No Longer Aspart, Human 0.1 mL, Active 2014 [facility] Route: SUB-Q, Drug form: SOLN, TID-Before Meals, Dosing Weight 83.2, kg, PRN Blood Glucose Results, Start date: 05/14/15 11:54:00, Duration: 30 day, Stop date: 06/13/15 11:53:00Not es: Roll in palms of hands gently; Do not shake vigorously. (Same as: NovoLOG) "single patient use only" Stable for 28 days at room temperature . Expires in days from ___Date Dextrose 50% 25 gm, 50 No Longer Syringe mL, Route: Active 2014 [facility] IVP, Drug Form: INJ, Dosing Weight 83.2, kg, PRN, PRN Blood Glucose Results, Start date: 05/14/15 11:54:00, Duration: 30 day, Stop date: 06/13/15 11:53:00 Glucagon 1 mg, No Longer Route: IM, Active 2014 [facility] Drug form: PDR/INJ, PRN, Dosing Weight 83.2, kg, PRN Blood Glucose Results, Start date: 05/14/15 11:54:00, Duration: 30 day, Stop date: 06/13/15 11:53:00 Magnesium 2 gm, 50 Inactive [place] mL, Route: 2014 [facility] IVPB, Drug form: INJ, ONCE, Dosing Weight 83.2, kg, Start date: 05/14/15 8:24:00, Duration: 2 hr, Stop date: 05/14/15 8:24:00 Coreg 3.125 mg, Inactive Route: PO, 2014 [facility] Drug form: TAB, Q12H, Dosing Weight 83.2, kg, hold sbp Crestor 20 mg, Inactive Route: PO, 2014 [facility] Drug form: TAB, Bedtime, Dosing Weight 83.2, kg, Start date: 05/13/15 21:00:00, Duration: 30 day, Stop date: 06/11/15 21:00:00 Lipitor 40 mg, 1 No Longer tab, Route: Active 2014 [facility] PO, Drug form: TAB, Bedtime, Start date: 05/13/15 21:00:00, Duration: 30 day, Stop date: 06/11/15 21:00:00Not es: (Same as: Lipitor) heparin sodium, 4,000 unit, Inactive [place] 5000 4 mL, 2014 UNT/ML Route: IV, Injectable Drug form: Solution INJ, ONCE, Dosing Weight 83.2, kg, Start date: 05/13/15 14:00:00, Stop date: 05/13/15 14:00:00 Lasix 20 mg, 2 Inactive mL, Route: 2014 [facility] IV, Drug form: INJ, ONCE, Dosing Weight 83.2, kg, Start date: 05/13/15 12:00:00, Stop date: 05/13/15 12:00:00Not es: (Same as: Lasix) Morphine 2 mg, 1 mL, No Longer Route: IVP, Active 2014 [facility] Drug form: INJ, Q4H, Dosing Weight 83.2, kg, PRN Pain Score 7-10, Start date: 05/13/15 10:19:00, Duration: 30 day, Stop date: 06/12/15 10:18:00Not es: (Same as:MORPhine Sulfate) Sodium Chloride 250 mL, 250 Inactive 0.154 MEQ/ML ml/hr, 2014 [facility] Injectable Infuse Solution Over: 1 hr, Route: IV, 250, Drug form: INJ, ONCE, Dosing Weight 83.2 kg, Start date: 05/13/15 9:58:00, Duration: 1 doses or times, Stop date: 05/13/15 9:58:00 Flomax 0.4 mg, 1 No Longer cap, Route: Active 2014 [facility] PO, Drug form: CAP, Daily, Dosing Weight 84.659, kg, Start date: 05/13/15 9:00:00, Duration: 30 day, Stop date: 06/11/15 9:00:00Note s: (Same As: Flomax) "Do Not Crush" aspirin 325 mg 325 mg, 1 No Longer tablet tab, Route: Active 2014 [facility] PO, Drug form: TAB, Daily, Start date: 05/13/15 9:00:00, Duration: 30 day, Stop date: 06/11/15 9:00:00Note s: Take with food. Thyroxine 112 No Longer microgram, Active 2014 [facility] 1 tab, Route: PO, Drug form: TAB, Q630AM, Dosing Weight 84.659, kg, Start date: 05/13/15 6:30:00, Duration: 30 day, Stop date: 06/11/15 6:30:00Note s: Take 1 hour before or 2 hours after meal; Enteral feeds may interefere with the absorption of this medication. (Same as:Levothro id) Ranexa 1,000 mg, 2 No Longer tab, Route: Active 2014 [facility] PO, Drug form: TAB, BID, Dosing Weight 84.659, kg, Start date: 05/12/15 22:00:00, Duration: 30 day, Stop date: 06/11/15 21:00:00Not es: Same as Ranexa "Do Not Crush" Coreg 6.25 mg, 2 No Longer tab, Route: Active 2014 [facility] PO, Drug form: TAB, BID, Dosing Weight 84.659, kg, Start date: 05/12/15 21:00:00, Duration: 30 day, Stop date: 06/11/15 9:00:00Note s: Give with food. (Same As: Coreg) Lipitor 20 mg, 2 No Longer tab, Route: Active 2014 [facility] PO, Drug form: TAB, Bedtime, Start date: 05/12/15 21:00:00, Duration: 30 day, Stop date: 06/10/15 21:00:00Not es: (Same As: Lipitor) Crestor 10 mg, Inactive Route: PO, 2014 Bedtime, Dosing Weight 84.659, kg, Start date: 05/12/15 21:00:00, Duration: 30 day, Stop date: 06/10/15 21:00:00 Insulin, 6 unit, No Longer Aspart, Human 0.06 mL, Active 2014 [facility] Route: SUB-Q, Drug form: SOLN, Sliding Scale, Dosing Weight 83.2, kg, PRN Blood Glucose Results, Start date: 05/12/15 20:52:00, Duration: 30 day, Stop date: 06/11/15 20:51:00Not es: Roll in palms of hands gently; Do not shake vigorously. (Same as: NovoLOG) "single patient use only" Stable for 28 days at room temperature . Expires in days from ___Date Glucagon 1 mg, No Longer Route: IM, Active 2014 [facility] Drug form: PDR/INJ, PRN, Dosing Weight 83.2, kg, PRN Blood Glucose Results, Start date: 05/12/15 20:52:00, Duration: 30 day, Stop date: 06/11/15 20:51:00 Dextrose 50% 25 gm, 50 No Longer Syringe mL, Route: Active 2014 [facility] IVP, Drug Form: INJ, Dosing Weight 83.2, kg, PRN, PRN Blood Glucose Results, Start date: 05/12/15 20:52:00, Duration: 30 day, Stop date: 06/11/15 20:51:00 Trazodone 50 mg, 1 No Longer tab, Route: Active 2014 [facility] PO, Drug form: TAB, Bedtime, Dosing Weight 83.2, kg, PRN Sleep, Start date: 05/12/15 20:43:00, Duration: 30 day, Stop date: 06/11/15 20:42:00, ..Notes: (Same As: Julián) Nitroglycerin 0.4 mg, 1 No Longer tab, Route: Active 2014 [facility] SL, Drug form: TAB, Q5Min, Dosing Weight 83.2, kg, PRN Chest Pain, Start date: 05/12/15 20:37:00, Duration: 3 doses or times, Stop date: Limited # of timesNotes: (Same as:Nitroqui ck, Nitrostat) "Do Not Crush" Sublingual tablet Nitroglycerin 0.4 mg, On Hold Transdermal 2014 [facility] , PRN, 0 Refill(s) Rosuvastatin 20 mg=1 On Hold calcium 20 MG tab, PO, 2014 [facility] Oral Tablet Bedtime, # [Crestor] 30 tab, 0 Refill(s) Levothyroxine 200 On Hold Sodium 0.2 MG microgram=[address] [facility] Oral Tablet tab, PO, [Synthroid] Daily, # 30 tab, 0 Refill(s) carvedilol 6.25 6.25 mg=1 On Hold MG Oral Tablet tab, PO, 2014 [Coreg] BID, # 60 tab, 0 Refill(s) tamsulosin 0.4 0.4 mg=1 On Hold mg oral capsule cap, PO, 2014 Daily, # 30 cap, 0 Refill(s) Spironolactone 25 mg=1 On Hold 25 MG Oral tab, PO, 2014 Tablet BID, # 60 [Aldactone] tab, 0 Refill(s) losartan 50 mg 50 mg=1 On Hold oral tablet tab, PO, 2014 Daily, # 30 tab, 0 Refill(s) Furosemide 40 40 mg=1 On Hold MG Oral Tablet tab, PO, 2014 Daily, # 30 tab, 0 Refill(s) Omeprazole 20 20 mg=1 On Hold MG Enteric cap, PO, 2014 Coated Capsule Bedtime, # [Prilosec] 30 cap, 0 Refill(s) 12 HR 1,000 mg=1 On Hold ranolazine 1000 tab, PO, 2014 MG Extended BID, # 60 Release Tablet tab, 0 [Ranexa] Refill(s) 24 HR Metformin 500 mg=1 On Hold hydrochloride tab, PO, 2014 500 MG Extended BID, with Release Tablet evening [Glumetza] meal, # 90 tab, 0 Refill(s) Sodium Chloride 1,000 mL, No Longer 0.154 MEQ/ML Rate: 75 Active 2014 Injectable ml/hr, Solution Infuse over: 13.3 hr, Route: IV, Dosing Weight 84.659 kg, Total Volume: 1,000, Priority: NOW, Start date: 05/12/15 18:03:00, Duration: 30 day, Stop date: 06/11/15 18:02:00 Aspirin 325 MG 325 mg, Inactive Oral Tablet Route: PO, 2014 Drug form: TAB, Daily, Dosing Weight 84.659, kg, Priority: STAT, Start date: 05/12/15 17:33:00, Duration: 30 day, Stop date: 06/11/15 9:00:00 heparin sodium, Route: IVP, No Longer [place] 1000 PRN, 4,300 Active 2014 UNT/ML unit, 4.3 Injectable mL, Drug Solution form: INJ, PRN, Heparin Protocol, Start date: 05/12/15 16:57:00 Stop date: 06/11/15 16:56:00, 30 day heparin 500 mL, No Longer additive 25,000 Rate: 17.[address] [facility] unit [12 ml/hr, unit/kg/hr] + Infuse Premix Diluent over: 28.9 Dextrose 5% 500 hr, Route: mL IV, Dosing Weight 72.14 kg, Total Volume: 500 mL, Start date: 05/12/15 16:57:00, Duration: 30 day, Stop date: 06/11/15 16:56:00 heparin sodium, 4,000 unit, Inactive [place] 5000 4 mL, 2014 [facility] UNT/ML Route: IV, Injectable Drug form: Solution INJ, ONCE, Dosing Weight 81.364, kg, Priority: STAT, Start date: 05/12/15 16:57:00, Stop date: 05/12/15 16:57:00 Aspirin 81 MG 324 mg, Inactive Chewable Tablet Route: PO, 2014 [facility] Drug form: CHEWTAB, ONCE, Dosing Weight 81.364, kg, Priority: STAT, Start date: 05/12/15 16:22:00, Stop date: 05/12/15 16:22:00 Aspirin 325 mg, Inactive Route: 2014 [facility] CHEW, Drug form: CHEWTAB, ONCE, Dosing Weight 81.364, kg, Priority: STAT, Start date: 05/12/15 16:20:00, Stop date: 05/12/15 16:20:00 Aspirin 324 mg, 4 Inactive tab, Route: 2014 [facility] PO, Drug form: CHEWTAB, ONCE, Dosing Weight 81.364, kg, Priority: STAT, Start date: 05/12/15 14:36:00, Stop date: 05/12/15 14:36:00Not es: Take with food. Saline Flush 10 mL, No Longer 0.9% Route: IVP, Active 2014 [facility] Drug Form: INJ, Dosing Weight 81.364, kg, PRN, PRN Line Flush, Start date: 05/12/15 14:36:00, Duration: 30 day, Stop date: 06/11/15 14:35:00Not es: (Same as: BD Posiflush) furosemide 1 tab(s) orally Active 40 mg orally ATASHBAND 06/26/ Cardiovasc once a day 2014 ular [facility] nitroglycerin 1 tab(s) sublingua Active 0.4 mg ATASHBAND 11/26/ Cardiovasc lly sublingually 2013 ular [facility] every 5 minutes Crestor 1 tab(s) orally Active 10 mg orally ATASHBAND 01/27/ Cardiovasc once a day (at 2012 ular [facility] bedtime) Ranexa 1,000 mg, [address] [facility] tab, Route: Active 2011 [facility] PO, Drug form: TAB, Q12H, Start date: 06/28/11 21:00:00, Duration: 30 day, Stop date: 07/28/11 9:00:00 Lipitor 10 mg, [address] [facility] tab, Route: Active 2011 [facility] PO, Drug form: TAB, Bedtime, Start date: 06/28/11 21:00:00, Duration: 30 day, Stop date: 07/27/11 21:00:00 lisinopril 10 mg, [address] [facility] tab, Route: Active 2011 [facility] PO, Drug form: TAB, Daily, Start date: 06/28/11 17:00:00, Duration: 30 day, Stop date: 07/28/11 9:00:00 glimepiride 2 mg, [address] [facility] tab, Route: Active 2011 [facility] PO, Drug form: TAB, BID, Start date: 06/28/11 17:00:00, Duration: 30 day, Stop date: 07/28/11 9:00:00 Lasix 20 mg, [address] [facility] tab, Route: Active 2011 [facility] PO, Drug form: TAB, BID, Start date: 06/28/11 17:00:00, Duration: 30 day, Stop date: 07/28/11 9:00:00 spironolactone 25 mg, [address] [facility] tab, Route: Active 2011 [facility] PO, Drug form: TAB, Daily, Start date: 06/28/11 17:00:00, Duration: 30 day, Stop date: 07/28/11 9:00:00 Flomax 0.4 mg, [address] [facility] cap, Route: Active 2011 [facility] PO, Drug form: CAP, Daily, Start date: 06/28/11 17:00:00, Duration: 30 day, Stop date: 07/28/11 9:00:00 aspirin 81 mg 81 mg, [address] [facility] tablet, enteric tab, Route: Active 2011 [facility] coated PO, Drug form: ECTAB, Daily, Start date: 06/28/11 17:00:00, Duration: 30 day, Stop date: 07/28/11 9:00:00 acetaminophen-t 1 tab, PO No Longer [facility] ramadol 325 Route: PO, Active 2011 [facility] mg-37.5 mg oral Drug Form: tablet TAB, Daily, Start date: 06/28/11 17:00:00, Duration: 30 day, Stop date: 07/28/11 9:00:00 cefazolin 2 gm, IVPB No Longer [facility] Route: Active 2011 [facility] IVPB, Q8H, Start date: 06/28/11 16:00:00, Duration: 2 doses or times, Stop date: 06/29/11 0:00:00 Sodium Chloride 10 mL, IVP No Longer [facility] 0.9% IV Route: IVP, Active 2011 [facility] Start date: 06/28/11 16:00:00, Duration: 30 day, Stop date: 07/28/11 8:00:00 Coreg 25 mg, [address] [facility] tab, Route: Active 2011 [facility] PO, Drug form: TAB, Q12H, Start date: 06/28/11 15:00:00, Duration: 30 day, Stop date: 07/28/11 9:00:00 nitroglycerin 0.4 mg, [address] [facility] 0.4 mg tab, Route: Active 2011 [facility] sublingual SL, Drug tablet form: TAB, PRN, PRN Chest Pain, Start date: 06/28/11 13:33:00, Duration: 30 day, Stop date: 07/28/11 13:32:00 acetaminophen 500 mg, [address] [facility] tab, Route: Active 2011 [facility] PO, Drug form: TAB, Q4H, PRN Pain, Start date: 06/28/11 11:28:00, Duration: 30 day, Stop date: 07/28/11 11:27:00 acetaminophen-h 2 tab, PO No Longer [facility] ydrocodone 325 Route: PO, Active 2011 [facility] mg-5 mg oral Drug Form: tablet TAB, Q4H, PRN Pain, Start date: 06/28/11 11:28:00, Duration: 30 day, Stop date: 07/28/11 11:27:00 morphine 2 mg, 1 mL, IV No Longer [facility] Sulfate Route: IV, Active 2011 [facility] Drug form: INJ, Q2H, PRN Severe Pain, Start date: 06/28/11 11:28:00, Duration: 30 day, Stop date: 07/28/11 11:27:00 Xanax 0.25 mg, [address] [facility] tab, Route: Active 2011 [facility] PO, Drug form: TAB, Q8H, PRN Anxiety, Start date: 06/28/11 11:28:00, Duration: 30 day, Stop date: 07/28/11 11:27:00 Zofran 4 mg, 2 mL, IVP No Longer [facility] Route: IVP, Active 2011 [facility] Drug form: INJ, Q8H, PRN Nausea & Vomiting, Start date: 06/28/11 11:28:00, Duration: 30 day, Stop date: 07/28/11 11:27:00 Restoril 15 mg, [address] [facility] cap, Route: Active 2011 [facility] PO, Drug form: CAP, Bedtime, PRN Insomnia, Start date: 06/28/11 11:28:00, Duration: 30 day, Stop date: 07/28/11 11:27:00 Sodium Chloride 10 mL, IVP No Longer [facility] 0.9% IV Route: IVP, Active 2011 [facility] PRN, Line Flush, Start date: 06/28/11 11:26:00, Duration: 30 day, Stop date: 07/28/11 11:25:00 multivitamin 1 tab, PO No Longer [facility] Route: PO, Active 2011 [facility] Drug Form: TAB, [id number], Start date: 06/28/11 6:00:00, Duration: 4 doses or times, Stop date: 06/29/11 18:00:00 cefazolin 1 gm, IVPB No Longer [facility] Route: Active 2011 [facility] IVPB, PRE OP, Start date: 06/28/11 5:00:00, Duration: 12 hr, Stop date: 06/28/11 16:59:00 Sodium Chloride 1,000 mL, IV No Longer [facility] 0.45% IV 1,000 Rate: [address] [facility] mL ml/hr, Infuse over: 13.3 hr, Route: IV, Total Volume: 1,000, Start date: 06/28/11 5:00:00, Duration: 24 hr, Stop date: 06/29/11 4:59:00 lidocaine-prilo 1 appl, TOP No Longer [facility] freddie topical Route: TOP, Active 2011 [facility] ONCALL, Drug form: CRM, Start date: 06/28/11 5:00:00, Duration: 1 doses or times Valium 5 mg, [address] [facility] tab, Route: Active 2011 [facility] PO, Drug form: TAB, ONCALL, Start date: 06/28/11 5:00:00, Duration: 1 doses or times Benadryl 50 mg, [address] [facility] tab, Route: Active 2011 [facility] PO, Drug form: TAB, ONCALL, Start date: 06/28/11 5:00:00, Duration: 1 doses or times spironolactone 1 tab(s) orally Active 25 mg orally [facility] Glumetza 1 tab(s) orally Active 500 mg orally [facility] clopidogrel 1 tab(s) orally Active 75 mg orally [facility] once a day [facility] Synthroid 1 tab(s) orally Active 200 mcg (0.2 [facility] mg) orally once [facility] a day carvedilol 2 tab(s) orally Active 3.125 mg orally [facility] 2 times a day [facility] glimepiride 1 tab(s) orally Active 1 mg orally bid [facility] atorvastatin 1 tab(s) orally Active 10 mg orally [facility] once a day (at [facility] bedtime) tamsulosin 1 cap(s) orally Active 0.4 mg orally [facility] furosemide 1 tab(s) orally Active 40 mg orally [facility] once [facility] ASA 1 tab(s) NA Active 81mg once a day [facility] Prilosec 1 cap(s) orally Active 20 mg orally [facility] once a day [facility] Ranexa 1 tab(s) orally Active 1000 mg orally [facility] 2 times a day [facility] nitroglycerin 1 tab(s) sublingua Active 0.4 mg [facility] lly sublingually [facility] every 5 minutes losartan 1 tab(s) orally Active 50 mg orally [facility] once a day [facility] Ranexa 1 tab(s) orally Active 1000 mg orally [facility] 2 times a day [facility] losartan 1 tab(s) orally Active 50 mg orally [facility] once a day [facility] clopidogrel 1 tab(s) orally Active 75 mg orally [facility] once a day [facility] nitroglycerin 1 tab(s) sublingua Active 0.4 mg [facility] sublingually [facility] every 5 minutes baclofen 1 tab(s) orally Active 10 mg orally [facility] glimepiride 1 tab(s) orally Active 1 mg orally [facility] once aday [facility] spironolactone 1 tab(s) orally Active 25 mg orally [facility] furosemide 1 tab(s) orally Active 40 mg orally [facility] once a day [facility] Glumetza 1 tab(s) orally Active 500 mg orally [facility] carvedilol 1 tab(s) orally Active 6.25 orally 2 [facility] times a day [facility] omeprazole 1 cap(s) orally Active 20 mg orally [facility] once a day [facility] Prilosec 1 cap(s) orally Active 20 mg orally [facility] once a day [facility] Synthroid 1 tab(s) orally Active 200 mcg (0.2 [facility] mg) orally once [facility] a day hydralazine 1 tab(s) orally Active 25 mg orally 4 [facility] times a day [facility] ASA 1 tab(s) NA Active 81mg once a day [facility] tamsulosin 1 cap(s) orally Active 0.4 mg orally [facility] once a day [facility] isosorbide 1 tab(s) orally Active 30 mg orally [facility] dinitrate every 8 hrs [facility] Humalog 13 units subcutane Active 100 units/mL [facility] before ously subcutaneously [facility] meals levothyroxine 2 caps orally Active 112 mcg orally [facility] once a day [facility] omeprazole 1 tab(s) orally Active 20 mg orally [facility] once a day [facility] ASA 1 tab(s) NA Active 81mg once a day [facility] Coreg 1/2 tab orally Active 12.5 mg orally [facility] 2 times a day [facility] Lantus 34 units at subcutane Active 100 units/mL [facility] bedtime ously subcutaneously [facility] gemfibrozil 1 tab(s) orally Active 600 mg orally 2 [facility] times a day [facility] Lyrica 1 cap(s) orally Active 50 mg orally 2 [facility] times a day [facility] Allergies, Adverse Reactions, Alerts Substance Category Reaction Severity Reaction Status Date Comments Source type Reported N.K.D.A. Adverse Info Not Adverse Active [facility] Reaction Available Reaction 7 [facility] NKDA Assertion Drug Active The allergy [place] Immunizations Immunization Date Site Status Last Comments Source Given Updated diphtheria/pertu Right completed [facility] ssis, 8 deltoid [place] acel/tetanus adult pneumococcal Right completed Jose 13-valent [address] [facility], vaccine [place] Results Order Name Results Value Reference Date Interpretation Comments Source Range URINE AND UA <=1.0 0.1 - 1.0 08/06 The STOOL Urobilinogen mg/dL /2017 [place] URINE AND UA RBC 1 /HPF 0 - 2 08/06 MH The [place] URINE AND UA Mucus Few /LPF None Seen 08/06 The STOOL /LPF [place] URINE AND UA Color Yellow Yellow 08/06 [facility] [place] *NA* (08/06/17 2:20 AM) URINE AND UA Turbidity Clear Clear 08/06 The [place] (08/06/17 2:20 AM) URINE AND UA Spec Grav 1.006 <=1.030 08/06 The [place] URINE AND UA Sq Epi Occasional Few /LPF 08/06 The STOOL /LPF [place] URINE AND UA WBC 1 /HPF 0 - 5 08/06 [facility] The STOOL [place] URINE AND UA Nitrite Negative Negative 08/06 The STOOL [place] (08/06/17 2:20 AM) URINE AND UA Leuk Est Negative Negative 08/06 The [place] (08/06/17 2:20 AM) URINE AND UA pH 5.0 5.0 - 8.0 08/06 The [place] URINE AND UA Ketones Negative Negative 08/06 The STOOL mg/dL mg/dL /2017 [place] URINE AND UA Bili Negative Negative 08/06 The [place] *NA* (08/06/17 2:20 AM) URINE AND UA Protein Negative Negative 08/06 The STOOL mg/dL mg/dL /2017 [place] URINE AND UA Glucose Negative Negative 08/06 The STOOL mg/dL mg/dL [place] URINE AND UA Blood Negative Negative 08/06 The [place] (08/06/17 2:20 AM) CHEM PANEL A/G Ratio 1.1 0.7 - 1.6 08/06 [place] CHEM PANEL AGAP 13.0 meq/L 10.0 - 08/06 The 20.0 [place] CHEM PANEL Globulin 3.2 g/dL 2.7 - 4.2 08/06 The [place] CHEM PANEL B/C Ratio 21 6 - 25 08/06 The [place] CHEM PANEL CO2 25 meq/L 24 - 32 08/06 The [place] CHEM PANEL Chloride Lvl 102 meq/L 95 - 109 08/06 The [place] CHEM PANEL Potassium 4.0 meq/L 3.5 - 5.1 08/06 The Lvl [place] CHEM PANEL Sodium Lvl 136 meq/L 135 - 145 08/06 The [place] CHEM PANEL BUN 38 mg/dL 7 - 22 08/06 The [place] CHEM PANEL Glucose Lvl 246 mg/dL 70 - 99 08/06 The [place] CHEM PANEL Creatinine 1.81 mg/dL 0.50 - 08/06 The Lvl 1.40 [place] CHEM PANEL Alk Phos 134 unit/L 39 - 136 08/06 The [place] CHEM PANEL Bili Total 0.8 mg/dL 0.2 - 1.3 08/06 The [place] CHEM PANEL ALT 29 unit/L 0 - 65 08/06 The [place] CHEM PANEL Albumin Lvl 3.5 g/dL 3.5 - 5.0 08/06 The [place] CHEM PANEL AST 28 unit/L 0 - 37 08/06 The [place] CHEM PANEL Total 6.7 g/dL 6.4 - 8.4 08/06 The Protein [place] CHEM PANEL Calcium Lvl 8.5 mg/dL 8.5 - 10.5 08/06 The [place] CHEM PANEL eGFR 34 08/06 Result Comment: The eGFR is calculated using the CKD-EPI formula. In most young, healthy individuals the eGFR will be >90 mL/ min/1.73m2. The eGFR declines with age. An eGFR of 60-89 may be normal in The mL/min/1.7 some populations, particularly the elderly, for whom the CKD-EPI formula has not been extensively validated. Use of the eGFR is not recommended in the following populations: [place] 3m2 Individuals with unstable creatinine concentrations, including patients and those with serious co-morbid conditions. Patients with extremes in muscle mass or diet. The data above are obtained from the National Kidney Disease Education Program (NKDEP) which additionally recommends that when the eGFR is used in patients with extremes of body mass index for purposes of drug dosing, the eGFR should be multiplied by the estimated BMI. HEMATOLOGY MCH 23.8 pg 27.0 - 08/06 The 31.0 [place] HEMATOLOGY RDW 18.4 % 11.5 - 08/06 The 14.5 [place] HEMATOLOGY MPV 9.3 fL 7.4 - 10.4 08/06 The [place] HEMATOLOGY Platelet 135 K/CMM 133 - 450 08/06 The [place] HEMATOLOGY MCHC 31.9 g/dL 32.0 - 08/06 The 36.0 [place] HEMATOLOGY Hct 30.4 % 42.0 - 08/06 The 54.0 [place] HEMATOLOGY MCV 74.5 fL 80.0 - 08/06 The 94.0 [place] HEMATOLOGY RBC 4.08 M/CMM 4.70 - 08/06 The 6.10 [place] HEMATOLOGY Hgb 9.7 g/dL 14.0 - 08/06 The 18.0 [place] HEMATOLOGY WBC 4.8 K/CMM 3.7 - 10.4 08/06 The [place] HEMATOLOGY PTT 30.0 s 22.9 - 08/06 The 35.8 [place] HEMATOLOGY PT 14.6 s 12.0 - 08/06 The 14. [place] HEMATOLOGY INR 1.14 0.85 - 08/06 The 1.17 [place] HEMATOLOGY Monocytes # 0.4 K/CMM 0.0 - 0.8 08/06 The [place] HEMATOLOGY Eosinophils 0.2 K/CMM 0.0 - 0.5 08/06 The [place] HEMATOLOGY Microcyte 1+ None Seen 08/06 The [place] *ABN* (08/06/17 1:09 AM) HEMATOLOGY Basophils 0.5 % 0.0 - 1.0 08/06 The [place] HEMATOLOGY Segs-Bands # 3.4 K/CMM 1.5 - 8.1 08/06 The [place] HEMATOLOGY Lymphocytes 0.8 K/CMM 1.0 - 5.5 08/06 The # [place] HEMATOLOGY Lymphocytes 15.8 % 20.0 - 08/06 The 40.0 [place] HEMATOLOGY Monocytes 8.5 % 2.0 - 12.0 08/06 The [place] HEMATOLOGY Segs 70.6 % 45.0 - 08/06 The 75.0 [place] HEMATOLOGY Eosinophils 4.6 % 0.0 - 4.0 08/06 The [place] Brain wo Brain wo CT HEAD WITHOUT CONTRAST 08/06 - The contrast contrast CT /2017 - [place] CT Clinical Indication: - head trauma, plavix. Read by: Tuan Gutierres MD Dictated Date/time: 08/06/17 01:31 Comparison: None. Electronically Signed by: Tuan Gutierres MD 08/06/17 01:39 FINAL REPORT TECHNIQUE: CT images were obtained from the foramen magnum to the vertex without the use of intravenous contrast on a multidetector CT. CT imaging was performed with exposure control parameters to reduc e radiation dose. Coronal and sagittal reconstructions were obtained. CT radiation dose DLP: 901.60 mGy-cm FINDINGS: There is no hemorrhage, extra-axial fluid collection, overt mass, midline shift or hydrocephalus. Intracranial vascular calcifications are noted along the carotid siphons and bilateral intradural verteb ral arteries. Scattered periventricular and deep white matter hypodensities are identified, nonspecific but may represent mild chronic ischemic small vessel changes. There is mild generalized cerebral volume loss. The visualized paranasal sinuses and mastoid air cells are clear. The calvarium and skull base are intact. If clinical concern persists for acute pathology further evaluation with MRI brain can be obtained if clinically warranted. IMPRESSION: No CT evidence of acute intracranial abnormality. Mild chronic ischemic small vessel changes and mild generalized cerebral volume loss. SL: ANNA MARIE CARDIAC BNP 1358 pg/mL <=100 05/30 [facility] pg/mL /2016 [facility] CARDIAC Troponin-I 0.02 ng/mL 0.00 - 05/30 ENZYMES 0.40 /2016 [facility] ELECTROLYT AGAP 10.8 meq/L 10.0 - 05/[address] [facility] ELECTROLYT A/G Ratio 1.4 0.7 - 1.6 05/[address] [facility] ELECTROLYT B/C Ratio 15 6 - 25 05/[address] [facility] ELECTROLYT Globulin 2.7 g/dL 2.7 - 4.2 05/30 ES [facility] ELECTROLYT eGFR 29 05/30 Result Comment: The eGFR is calculated using the CKD-EPI formula. In most young, healthy individuals the eGFR will be >90 mL/ min/1.73m2. The eGFR declines with age. An eGFR of 60-89 may be normal in [facility] mL/min/1.7 /2017 some populations, particularly the elderly, for whom the CKD-EPI formula has not been extensively validated. Use of the eGFR is not recommended in the following populations: [facility] 3m2 Individuals with unstable creatinine concentrations, including patients and those with serious co-morbid conditions. Patients with extremes in muscle mass or diet. The data above are obtained from the National Kidney Disease Education Program (NKDEP) which additionally recommends that when the eGFR is used in patients with extremes of body mass index for purposes of drug dosing, the eGFR should be multiplied by the estimated BMI. ELECTROLYT Bili Total 0.8 mg/dL 0.2 - 1.3 05/30 [place] [facility] Sodium Lvl 140 meq/L 135 - 145 05/30 [place] ELECT[facility] Creatinine 2.05 mg/dL 0.50 - 05/30 ES Lvl 1.40 [place] ELECTROLYT Total 6.4 g/dL 6.4 - 8.4 05/30 [place] ELECT[facility]OL[facility]T Potassium 3.8 meq/L 3.5 - 5.1 05/30 ES Lvl [place] ELECTROLY[facility] Chloride Lvl 106 meq/L 95 - 109 05/30 [facility]LECT[facility] Calcium Lvl 8.6 mg/dL 8.5 - 10.5 05/30 [place] [facility] CO2 27 meq/L 24 - 32 05/30 [place] [facility] ALT 30 unit/L 0 - 65 05/30 [place] [facility] Albumin Lvl 3.7 g/dL 3.5 - 5.0 05/30 [place] [facility] AST 23 unit/L 0 - 37 05/30 [place] ELECT[facility] Alk Phos 89 unit/L 39 - 136 05/30 [facility] ELECTROLYT Glucose Lvl 126 mg/dL 70 - 99 05/30 [place] ELECTROL[facility] BUN 31 mg/dL 7 - 22 05/30 [facility] HEMATOLOGY PT 14.7 s 12.0 - 05/[address] [facility] HEMATOLOGY INR 1.15 0.85 - 05/[address] [facility] HEMATOLOGY RDW 16.9 % 11.5 - 05/[address] [facility] HEMATOLOGY WBC 3.6 K/CMM 3.7 - 10.4 05/30 [facility] HEMATOLOGY RBC 3.64 M/CMM 4.70 - 05/30 MH 6.10 /2016 [facility] HEMATOLOGY MCH 26.1 pg 27.0 - 05/30 MH 31.0 /2016 [facility] HEMATOLOGY MCV 81.6 fL 80.0 - 05/30 MH 94.0 /2016 [facility] HEMATOLOGY Hct 29.7 % 42.0 - 05/30 MH 54.0 /2016 [facility] HEMATOLOGY MCHC 31.9 g/dL 32.0 - 05/30 MH 36.0 /2016 [facility] HEMATOLOGY Hgb 9.5 g/dL 14.0 - 05/30 MH 18.0 /2016 [facility] HEMATOLOGY Platelet 98 K/CMM 133 - 450 05/30 [facility] HEMATOLOGY MPV 9.3 fL 7.4 - 10.4 05/30 [facility] HEMATOLOGY Eosinophils 0.1 K/CMM 0.0 - 0.5 05/30 MH # /2017 [facility] HEMATOLOGY Eosinophils 1.8 % 0.0 - 4.0 05/30 /2016 [facility] HEMATOLOGY Monocytes 9.8 % 2.0 - 12.0 05/30 [facility] HEMATOLOGY Monocytes # 0.4 K/CMM 0.0 - 0.8 05/30 [facility] HEMATOLOGY Segs-Bands # 2.3 K/CMM 1.5 - 8.1 05/30 [facility] HEMATOLOGY Basophils 0.4 % 0.0 - 1.0 05/30 [facility] HEMATOLOGY Lymphocytes 24.4 % 20.0 - 05/30 MH 40.0 /2016 [facility] HEMATOLOGY Lymphocytes 0.9 K/CMM 1.0 - 5.5 05/30 MH # /2016 [facility] HEMATOLOGY Segs 63.6 % 45.0 - 05/[address] [facility] Chest Chest 1[facility] Clinical Indication: - chf; 05/30 - 1[facility] DX DX /2016 - [facility] Comparison: December 28, 2015 Read by: Juwan Hale MD Dictated Date/time: 05/30/17 12:28 FINDINGS: Electronically Signed by: Juwan Hale MD 05/30/17 12:34 FINAL REPORT AP chest radiographs shows normal lung volumes without interstitial or airspace opacities, pleural effusions or pneumothorax. There is left chest wall intracardiac device. The heart is moderately enlarged. There is no pulmonary vascular congestion. The trachea is midline. There are no clinically significant osseous abnormalities noted. There are sternal wires and mediastinal surgical clips. IMPRESSION: 1. Cardiomegaly without congestive heart failure. There was previous median sternotomy for bypass grafting as well as left pacer placement. 2. No focal infiltrates . SL: [id number] CHEM PANEL eGFR 41 11/03 Result Comment: The eGFR is calculated using the CKD-EPI formula. In most young, healthy individuals the eGFR will be >90 mL/ min/1.73m2. The eGFR declines with age. An eGFR of 60-89 may be normal in mL/min/1.7 some populations, particularly the elderly, for whom the CKD-EPI formula has not been extensively validated. Use of the eGFR is not recommended in the following populations: [address] Individuals with unstable creatinine concentrations, including patients and those with serious co-morbid conditions. Patients with extremes in muscle mass or diet. The data above are obtained from the National Kidney Disease Education Program (NKDEP) which additionally recommends that when the eGFR is used in patients with extremes of body mass index for purposes of drug dosing, the eGFR should be multiplied by the estimated BMI. CHEM PANEL Calcium Lvl 8.5 mg/dL 8.5 - 10.5 11/03 [facility] CHEM PANEL AGAP 10.9 meq/L 10.0 - 11/[address] [facility] CHEM PANEL Chloride Lvl 105 meq/L 95 - 109 11/03 [place] CHEM PANEL CO2 27 meq/L 24 - 32 11/03 [facility] CHEM PANEL Sodium Lvl 139 meq/L 135 - 145 11/03 [facility] CHEM PANEL Potassium 3.9 meq/L 3.5 - 5.1 11/[address] [facility] CHEM PANEL BUN 20 mg/dL 7 - 22 11/03 [facility] CHEM PANEL Glucose Lvl 165 mg/dL 70 - 99 11/03 [facility] CHEM PANEL Creatinine 1.54 mg/dL 0.50 - 11/[address] [facility] CARDIAC BNP 720 pg/mL <=100 11/03 [facility] pg/mL /2016 [facility] CHEM PANEL Phosphorus 4.1 mg/dL 2.5 - 4.5 11/03 [facility] CHEM PANEL Magnesium 1.9 mg/dL 1.8 - 2.4 11/[address] [facility] LIPIDS VLDL 26 11/03 [facility] LIPIDS Trig 129 mg/dL <=149 11/03 mg/dL [facility] LIPIDS HDL 32 mg/dL >=61 mg/dL 11/03 [facility] LIPIDS Chol 97 mg/dL <=199 11/03 mg/dL [facility] LIPIDS LDL 39 mg/dL <=99 mg/dL 11/03 (Calculated) [facility] LIPIDS CHD Risk 3.03 4.00 - 11/[address] [facility] CARDIAC Troponin-I 0.04 ng/mL 0.00 - 11/[address] [facility] CARDIAC Total CK 68 unit/L 11/03 EN[facility]YMES /2016 [facility] CARDIAC Total CK 65 unit/L 11/03 [facility] /2016 [facility] CARDIAC Troponin-I 0.04 ng/mL 0.00 - 11/[address] [facility] CARDIAC BNP 626 pg/mL <=100 11/02 [facility] pg/mL [facility] CARDIAC Troponin-I 0.04 ng/mL 0.00 - 11/[address] [facility] CARDIAC Total CK 64 unit/L 11/[address] [facility] CARDIAC Total CK 64 unit/L 11/[address] [facility] CARDIAC Troponin-I 0.05 ng/mL 0.00 - 11/[address] [facility] CHEM PANEL Magnesium 1.9 mg/dL 1.8 - 2.4 11/[address] [facility] CHEM PANEL B/C Ratio 13 6 - 25 11/02 [facility] CHEM PANEL AGAP 13.6 meq/L 10.0 - 11/[address] [facility] CHEM PANEL Globulin 2.9 g/dL 2.7 - 4.2 11/02 [facility] CHEM PANEL A/G Ratio 1.2 0.7 - 1.6 11/02 [facility] CHEM PANEL eGFR 39 11/02 Result Comment: The eGFR is calculated using the CKD-EPI formula. In most young, healthy individuals the eGFR will be >90 mL/ min/1.73m2. The eGFR declines with age. An eGFR of 60-89 may be normal in mL/min/1.7 some populations, particularly the elderly, for whom the CKD-EPI formula has not been extensively validated. Use of the eGFR is not recommended in the following populations: [facility] 3m2 Individuals with unstable creatinine concentrations, including patients and those with serious co-morbid conditions. Patients with extremes in muscle mass or diet. The data above are obtained from the National Kidney Disease Education Program (NKDEP) which additionally recommends that when the eGFR is used in patients with extremes of body mass index for purposes of drug dosing, the eGFR should be multiplied by the estimated BMI. CHEM PANEL Albumin Lvl 3.4 g/dL 3.5 - 5.0 11/02 [place] CHEM PANEL Total 6.3 g/dL 6.4 - 8.4 11/02 Protein [place] CHEM PANEL Calcium Lvl 8.5 mg/dL 8.5 - 10.5 11/02 [place] CHEM PANEL CO2 24 meq/L 24 - 32 11/02 [place] CHEM PANEL Chloride Lvl 104 meq/L 95 - 109 11/02 [place] CHEM PANEL Bili Total 0.8 mg/dL 0.2 - 1.3 11/02 [place] CHEM PANEL Alk Phos 89 unit/L 39 - 136 11/02 [place] CHEM PANEL AST 17 unit/L 0 - 37 11/02 [place] CHEM PANEL ALT 28 unit/L 0 - 65 11/02 [place] CHEM PANEL Sodium Lvl 138 meq/L 135 - 145 11/02 [place] CHEM PANEL Creatinine 1.60 mg/dL 0.50 - 11/02 Lvl 1.40 [place] CHEM PANEL Potassium 3.6 meq/L 3.5 - 5.1 11/02 Lvl [place] CHEM PANEL BUN 21 mg/dL 7 - 22 11/02 [place] CHEM PANEL Glucose Lvl 320 mg/dL 70 - 99 11/02 [facility] HEMATOLOGY Lymphocytes 0.9 K/CMM 1.0 - 5.5 11/02 MH # /2017 [facility] HEMATOLOGY Segs-Bands # 2.4 K/CMM 1.5 - 8.1 11/02 [facility] HEMATOLOGY Eosinophils 0.1 K/CMM 0.0 - 0.5 11/02 MH # /2017 [facility] HEMATOLOGY Monocytes # 0.3 K/CMM 0.0 - 0.8 11/02 [facility] HEMATOLOGY Segs 66.4 % 45.0 - 11/02 MH 75.0 /2016 [facility] HEMATOLOGY Lymphocytes 24.2 % 20.0 - 11/[address] [facility] HEMATOLOGY Monocytes 7.1 % 2.0 - 12.0 11/02 [facility] HEMATOLOGY Eosinophils 1.9 % 0.0 - 4.0 11/02 [facility] HEMATOLOGY Basophils 0.4 % 0.0 - 1.0 11/02 [facility] Platelet 97 K/CMM 133 - 450 11/02 [facility] MPV 9.8 fL 7.4 - 10.4 11/02 [facility] HEMATOLOGY RDW 13.8 % 11.5 - 11/[address] [facility] WBC 3.6 K/CMM 3.7 - 10.4 11/02 [facility] HEMATOLOGY RBC 3.45 M/CMM 4.70 - 11/[address] [facility] Hgb 10.5 g/dL 14.0 - 11/[address] [facility] Hct 30.8 % 42.0 - 11/[address] [facility] MCV 89.3 fL 80.0 - 11/[address] [facility] MCHC 34.2 g/dL 32.0 - 11/[address] [facility] MCH 30.6 pg 27.0 - 11/02 MH 31.0 [facility] Hgb A1C 7.4 % <=5.6 % 11/02 [facility] CHEM PANEL eGFR 52 12/29 Result Comment: The eGFR is calculated using the CKD-EPI formula. In most young, healthy individuals the eGFR will be >90 mL/ min/1.73m2. The eGFR declines with age. An eGFR of 60-89 may be normal in mL/min/1. some populations, particularly the elderly, for whom the CKD-EPI formula has not been extensively validated. Use of the eGFR is not recommended in the following populations: [facility] 3m2 Individuals with unstable creatinine concentrations, including patients and those with serious co-morbid conditions. Patients with extremes in muscle mass or diet. The data above are obtained from the National Kidney Disease Education Program (NKDEP) which additionally recommends that when the eGFR is used in patients with extremes of body mass index for purposes of drug dosing, the eGFR should be multiplied by the estimated BMI. CHEM PANEL Glucose Lvl 149 mg/dL 70 - 99 12/29 [place] CHEM PANEL Potassium 4.1 meq/L 3.5 - 5.1 12/29 Lvl /2015 [place] CHEM PANEL Chloride Lvl 108 meq/L 95 - 109 12/29 [place] CHEM PANEL CO2 30 meq/L 24 - 32 12/29 [place] CHEM PANEL Calcium Lvl 8.6 mg/dL 8.5 - 10.5 12/29 [place] CHEM PANEL BUN 19 mg/dL 7 - 22 12/29 [place] CHEM PANEL Creatinine 1.28 mg/dL 0.50 - 12/29 MH Lvl 1.40 /2015 [place] CHEM PANEL Sodium Lvl 145 meq/L 135 - 145 12/29 [facility] CHEM PANEL AGAP 11.1 meq/L 10.0 - 12/29 MH 20.0 [place] CHEM PANEL Magnesium 2.1 mg/dL 1.8 - 2.4 12/29 Lvl /2015 [facility] HEMATOLOGY MCV 93.2 fL 80.0 - 12/[address] [facility] HEMATOLOGY Platelet 106 K/CMM 133 - 450 12/29 [facility] HEMATOLOGY MPV 9.3 fL 7.4 - 10.4 12/29 /2015 [facility] HEMATOLOGY MCH 31.2 pg 27.0 - 12/[address] [facility] HEMATOLOGY RDW 14.7 % 11.5 - 12/[address] [facility] HEMATOLOGY MCHC 33.5 g/dL 32.0 - 12/29 MH 36.0 /2015 [facility] HEMATOLOGY WBC 4.1 K/CMM 3.7 - 10.4 12/29 /2015 [facility] HEMATOLOGY RBC 3.63 M/CMM 4.70 - 12/29 MH 6.10 /2015 [facility] HEMATOLOGY Hct 33.8 % 42.0 - 12/29 MH 54.0 /2015 [facility] HEMATOLOGY Hgb 11.3 g/dL 14.0 - 12/[address] [facility] HEMATOLOGY Eosinophils 0.2 K/CMM 0.0 - 0.5 12/29 MH # /2015 [facility] HEMATOLOGY Segs-Bands # 2.4 K/CMM 1.5 - 8.1 12/29 [facility] HEMATOLOGY Monocytes # 0.4 K/CMM 0.0 - 0.8 12/29 [facility] HEMATOLOGY Lymphocytes 1.1 K/CMM 1.0 - 5.5 12/29 MH # /2016 [facility] HEMATOLOGY Basophils 0.4 % 0.0 - 1.0 12/29 [facility] HEMATOLOGY Eosinophils 4.2 % 0.0 - 4.0 12/29 [facility] HEMATOLOGY Segs 58.6 % 45.0 - 12/29 MH 75.0 /2015 [facility] HEMATOLOGY Monocytes 10.3 % 2.0 - 12.0 12/29 [facility] HEMATOLOGY Lymphocytes 26.5 % 20.0 - 12/29 MH 40.0 /2015 [facility] HEMATOLOGY POC 128 s 12/28 MH Activated /2015 [facility] [employer] HEMATOLOGY PTT 75.4 s 22.9 - 12/28 MH 35.8 /2015 [facility] CHEM PANEL Magnesium 2.0 mg/dL 1.8 - 2.4 12/28 [facility] CHEM PANEL Glucose Lvl 116 mg/dL 70 - 99 12/28 [facility] CHEM PANEL Potassium 3.8 meq/L 3.5 - 5.1 12/28 [facility] CHEM PANEL AGAP 13.8 meq/L 10.0 - 12/28 MH 20.0 [facility] CHEM PANEL CO2 27 meq/L 24 - 32 12/28 [facility] CHEM PANEL Sodium Lvl 143 meq/L 135 - 145 12/28 [facility] CHEM PANEL Chloride Lvl 106 meq/L 95 - 109 12/28 [facility] CHEM PANEL Creatinine 1.28 mg/dL 0.50 - 12/28 Lvl 1.40 [facility] CHEM PANEL Calcium Lvl 8.8 mg/dL 8.5 - 10.5 12/28 [facility] CHEM PANEL BUN 22 mg/dL 7 - 22 12/28 [facility] CHEM PANEL eGFR 52 12/28 Result Comment: The eGFR is calculated using the CKD-EPI formula. In most young, healthy individuals the eGFR will be >90 mL/ min/1.73m2. The eGFR declines with age. An eGFR of 60-89 may be normal in mL/min/1. some populations, particularly the elderly, for whom the CKD-EPI formula has not been extensively validated. Use of the eGFR is not recommended in the following populations: [facility] 3m2 Individuals with unstable creatinine concentrations, including patients and those with serious co-morbid conditions. Patients with extremes in muscle mass or diet. The data above are obtained from the National Kidney Disease Education Program (NKDEP) which additionally recommends that when the eGFR is used in patients with extremes of body mass index for purposes of drug dosing, the eGFR should be multiplied by the estimated BMI. HEMATOLOGY Platelet 105 K/CMM 133 - 450 12/28 /2015 [facility] HEMATOLOGY RDW 14.6 % 11.5 - 12/[address] [facility] HEMATOLOGY MCH 30.7 pg 27.0 - 12/28 MH 31.0 /2015 [facility] HEMATOLOGY MCHC 33.2 g/dL 32.0 - 12/28 MH 36.0 /2015 [facility] HEMATOLOGY MPV 9.5 fL 7.4 - 10.4 12/28 [facility] HEMATOLOGY Hct 33.6 % 42.0 - 12/28 MH 54.0 /2015 [facility] HEMATOLOGY Hgb 11.2 g/dL 14.0 - 12/28 MH 18.0 /2015 [facility] HEMATOLOGY RBC 3.63 M/CMM 4.70 - 12/28 MH 6.10 /2015 [facility] HEMATOLOGY MCV 92.5 fL 80.0 - 12/28 MH 94.0 /2015 [facility] HEMATOLOGY WBC 4.3 K/CMM 3.7 - 10.4 12/28 [facility] HEMATOLOGY PTT 47.5 s 22.9 - 12/[address] [facility] LIPIDS VLDL 45 12/28 [facility] LIPIDS LDL 69 mg/dL <=99 mg/dL 12/28 MH (Calculated) /2015 [facility] LIPIDS HDL 31 mg/dL >=61 mg/dL 12/28 [facility] LIPIDS CHD Risk 4.68 4.00 - 12/[address] [facility] LIPIDS Trig 225 mg/dL <=149 12/28 mg/dL /2015 [facility] LIPIDS Chol 145 mg/dL <=199 12/28 mg/dL /2015 [facility] CARDIAC Troponin-I 0.47 ng/mL 0.00 - 12/28 ENZYMES 0.40 /2016 [facility] CARDIAC Total CK 157 unit/L 12 - 191 12/28 ENZYMES /2015 [facility] CARDIAC CK MB Index 3.8 0.0 - 2.5 12/28 ENZYMES /2015 [facility] CARDIAC CK MB 5.9 ng/mL 0.5 - 3.6 12/28 ENZYMES /2015 [facility] HEMATOLOGY PTT 63.8 s 22.9 - 12/[address] [facility] CARDIAC Troponin-I 0.71 ng/mL 0.00 - 12/28 Result ENZYMES 0.40 Comment: [facility] Critical Result(s) called to Ghazal Michael RN at 12/28/2015 20:26 by LS. Read back OK. CARDIAC Total CK 169 unit/L 12 - 191 12/[address] [facility] CARDIAC CK MB Index 3.8 0.0 - 2.5 12/28 MH ENZYMES /2015 [facility] CARDIAC CK MB 6.5 ng/mL 0.5 - 3.6 12/28 MH ENZYMES /2015 [facility] CARDIAC CK MB Index 4.9 0.0 - 2.5 12/27 MH ENZYMES /2015 [facility] CARDIAC CK MB 8.8 ng/mL 0.5 - 3.6 12/[address] [facility] CARDIAC Troponin-I 0.69 ng/mL 0.00 - 12/27 Result ENZYMES 0.40 Comment: [facility] Critical Result(s) called to Gris Caba RN at 12/28/2015 16:14 by LS. Read back OK. CARDIAC Total CK 180 unit/L 12 - 191 12/27 [facility] CARDIAC BNP 402 pg/mL <=100 12/27 ENZYMES pg/mL /2015 [facility] CHEM PANEL Lipase Lvl 73 unit/L 73 - 393 12/27 [facility] CHEM PANEL A/G Ratio 1.1 0.7 - 1.6 12/27 [facility] CHEM PANEL Globulin 3.3 g/dL 2.0 - 4.0 12/27 [facility] CHEM PANEL B/C Ratio 14 6 - 25 12/27 [facility] CHEM PANEL AGAP 9.6 meq/L 10.0 - 12/27 MH 20.0 [facility] CHEM PANEL eGFR 43 12/27 Result Comment: The eGFR is calculated using the CKD-EPI formula. In most young, healthy individuals the eGFR will be >90 mL/ min/1.73m2. The eGFR declines with age. An eGFR of 60-89 may be normal in mL/min/1.7 /2015 some populations, particularly the elderly, for whom the CKD-EPI formula has not been extensively validated. Use of the eGFR is not recommended in the following populations: [facility] 3m2 Individuals with unstable creatinine concentrations, including patients and those with serious co-morbid conditions. Patients with extremes in muscle mass or diet. The data above are obtained from the National Kidney Disease Education Program (NKDEP) which additionally recommends that when the eGFR is used in patients with extremes of body mass index for purposes of drug dosing, the eGFR should be multiplied by the estimated BMI. CHEM PANEL Alk Phos 83 unit/L 39 - 136 12/27 [facility] CHEM PANEL AST 30 unit/L 0 - 37 12/27 [facility] CHEM PANEL ALT 29 unit/L 0 - 65 12/27 [facility] CHEM PANEL Bili Total 0.9 mg/dL 0.2 - 1.3 12/27 [facility] CHEM PANEL CO2 29 meq/L 24 - 32 12/27 [facility] CHEM PANEL Chloride Lvl 104 meq/L 95 - 109 12/27 [facility] CHEM PANEL Calcium Lvl 9.1 mg/dL 8.5 - 10.5 12/27 [facility] CHEM PANEL Albumin Lvl 3.6 g/dL 3.5 - 5.0 12/27 [facility] CHEM PANEL Total 6.9 g/dL 6.4 - 8.4 12/27 [facility] CHEM PANEL Creatinine 1.50 mg/dL 0.50 - 12/27 MH Lvl 1.40 /2015 [facility] CHEM PANEL Sodium Lvl 139 meq/L 135 - 145 12/27 [facility] CHEM PANEL Potassium 3.6 meq/L 3.5 - 5.1 12/27 MH Lvl /2015 [facility] CHEM PANEL Glucose Lvl 178 mg/dL 70 - 99 12/27 [facility] CHEM PANEL BUN 21 mg/dL 7 - 22 12/27 [facility] HEMATOLOGY Eosinophils 0.1 K/CMM 0.0 - 0.5 12/27 MH # /2016 [facility] HEMATOLOGY Monocytes # 0.3 K/CMM 0.0 - 0.8 12/27 [facility] HEMATOLOGY Segs 66.2 % 45.0 - 12/27 MH 75.0 /2016 [facility] HEMATOLOGY Lymphocytes 0.9 K/CMM 1.0 - 5.5 12/27 MH # /2015 [facility] HEMATOLOGY Basophils 0.6 % 0.0 - 1.0 12/27 [facility] HEMATOLOGY Segs-Bands # 2.8 K/CMM 1.5 - 8.1 12/27 [facility] HEMATOLOGY Monocytes 7.9 % 2.0 - 12.0 12/27 [facility] HEMATOLOGY Eosinophils 3.2 % 0.0 - 4.0 12/27 /2015 [facility] HEMATOLOGY Lymphocytes 22.1 % 20.0 - 12/27 MH 40.0 /2015 [facility] HEMATOLOGY INR 1.04 0.85 - 12/27 MH 1.17 /2015 [facility] HEMATOLOGY PT 13.9 s 12.0 - 12/27 MH 14.7 /2015 [facility] HEMATOLOGY Hct 36.1 % 42.0 - 12/27 MH 54.0 /2015 [facility] HEMATOLOGY Hgb 12.0 g/dL 14.0 - 12/27 MH 18.0 /2015 [facility] HEMATOLOGY RBC 3.89 M/CMM 4.70 - 12/27 MH 6.10 /2015 [facility] HEMATOLOGY MPV 9.4 fL 7.4 - 10.4 12/27 [facility] HEMATOLOGY Platelet 115 K/CMM 133 - 450 12/27 [facility] RDW 14.7 % 11.5 - 12/27 14.5 /2015 [facility] MCHC 33.1 g/dL 32.0 - 12/27 MH 36.0 /2015 [facility] MCV 92.8 fL 80.0 - 12/27 94.0 /2015 [facility] MCH 30.7 pg 27.0 - 12/27 MH 31.0 /2015 [facility] WBC 4.2 K/CMM 3.7 - 10.4 12/27 [facility] Chest Chest 1view Clinical Indication: Left-sided chest pain 12/27 - 1view DX DX - [facility] Comparison: 05/12/2015 Read by: Edna Schrader MD Dictated Date/time: 12/28/15 15:13 FINDINGS: Electronically Signed by: Edna Schrader MD 12/28/15 15:14 FINAL REPORT AP chest radiograph was obtained. MEDIASTINUM: The cardiac silhouette is normal in size. The aorta demonstrates atherosclerotic calcification. There is a single electrode implantable cardiac defibrillator overlying the left chest. The re are sternal wires and surgical clips overlying the mediastinum. LUNGS: Lung volumes are maintained. There are no focal infiltrates or effusions. There are no pneumothoraces noted. BONES: The visualized osseous structures are unremarkable. IMPRESSION: No acute infiltrates or effusions. SL: [id number] CHEM PANEL Phosphorus 3.7 mg/dL 2.5 - 4.5 05/22 [facility] /[address] [place] [address] CHEM PANEL Magnesium 2.1 mg/dL 1.8 - 2.4 05/22 [facility] CHEM PANEL eGFR 49 05/22 Result Comment: The eGFR is calculated using the CKD-EPI formula. In most young, healthy individuals the eGFR will be >90 mL/ min/1.73m2. The eGFR declines with age. An eGFR of 60-89 may be normal in [facility] mL/min/1.7 /2014 some populations, particularly the elderly, for whom the CKD-EPI formula has not been extensively validated. Use of the eGFR is not recommended in the following populations: [address] Individuals with unstable creatinine concentrations, including patients and those with serious co-morbid conditions. Patients with extremes in muscle mass or diet. The data above are obtained from the National Kidney Disease Education Program (NKDEP) which additionally recommends that when the eGFR is used in patients with extremes of body mass index for purposes of drug dosing, the eGFR should be multiplied by the estimated BMI. CHEM PANEL Calcium Lvl 8.2 mg/dL 8.5 - 10.5 05/22 [facility] CHEM PANEL Creatinine 1.35 mg/dL 0.50 - 05/22 [facility] Lvl 1.40 [facility] CHEM PANEL Chloride Lvl 108 meq/L 95 - 109 05/22 [facility] CHEM PANEL CO2 26 meq/L 24 - 32 05/22 [facility] CHEM PANEL Sodium Lvl 141 meq/L 135 - 145 05/22 [facility] CHEM PANEL Potassium 4.5 meq/L 3.5 - 5.1 05/22 [facility] l [facility] CHEM PANEL Glucose Lvl 110 mg/dL 70 - 99 05/22 [facility] CHEM PANEL BUN 22 mg/dL 7 - 22 05/22 [facility] CHEM PANEL AGAP 11.5 meq/L 10.0 - 05/22 20.0 [facility] HEMATOLOGY RDW 13.1 % 11.5 - 05/22 14.5 [facility] HEMATOLOGY MCHC 32.5 g/dL 32.0 - 05/22 [place] 36.0 [facility] HEMATOLOGY MCH 32.3 pg 27.0 - 05/22 31.0 [facility] HEMATOLOGY MCV 99.6 fL 80.0 - 05/22 [facility] 94.0 [facility] HEMATOLOGY Hct 31.2 % 42.0 - 05/22 [place] 54.0 /2015 [facility] HEMATOLOGY MPV 9.4 fL 7.4 - 10.4 05/22 /2014 [facility] HEMATOLOGY Platelet 127 K/CMM 133 - 450 05/22 /2014 [facility] HEMATOLOGY Hgb 10.1 g/dL 14.0 - 05/22 [place] 18.0 /2014 [facility] HEMATOLOGY RBC 3.14 M/CMM 4.70 - 05/22 [place] 6.10 /2014 [facility] HEMATOLOGY WBC 4.4 K/CMM 3.7 - 10.4 05/22 [facility] HEMATOLOGY Eosinophils 0.2 K/CMM 0.0 - 0.5 05/22 [facility] # /2015 [facility] HEMATOLOGY Monocytes # 0.5 K/CMM 0.0 - 0.8 05/22 [facility] HEMATOLOGY Lymphocytes 19.4 % 20.0 - 05/22 [facility] 40.0 /2014 [facility] HEMATOLOGY Segs 64.5 % 45.0 - 05/22 [facility] 75.0 /2014 [facility] HEMATOLOGY Lymphocytes 0.9 K/CMM 1.0 - 5.5 05/22 [facility] # /2015 [facility] HEMATOLOGY Segs-Bands # 2.8 K/CMM 1.5 - 8.1 05/22 [facility] HEMATOLOGY Basophils 0.5 % 0.0 - 1.0 05/22 [facility] HEMATOLOGY Eosinophils 3.9 % 0.0 - 4.0 05/[address] [place] [address] HEMATOLOGY Monocytes 11.7 % 2.0 - 12.0 05/[address] [place] [address] HVI VAS HVI VAS INDICATION: groin hematoma 05/22 - [facility] Arterial/b Arterial/by /2014 - [facility] ypass ass Lower This report was dictated by a [employer] Putter Up And Ticket Preparer/ Fellow. I have personally reviewed the images as Center Lower Ext Ext Unilat well as the Resident's interpretation and agree with the findings. Unilat IMPRESSION: Read by: Derick Duvall (Fellow) Resident: Derick Duvall (Fellow) Dictated Date/time: 05/23/15 14:15 1. There is no evidence of pseudoaneurysm formation. Electronically Signed by: Kamlesh Delacruz MD 05/26/15 17 :12 FINAL REPORT 2. 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 COMMENTS: No prior imaging study is available for comparison. Limited right groin grayscale, color-flow, and Doppler examination of the arterial and venous system was performed. Examination of the right common femoral artery demonstrates normal biphasic waveforms. There is no evidence of pseudoaneurysm formation. Examination of the right common femoral vein demonstrates too and fro flow consistent with patent arteriovenous fistula. CARDIAC Troponin-T 0.014 0.000 - 05/21 [facility] ENZYMES ng/mL 0.100 /2014 [facility] CARDIAC Troponin-I 0.04 ng/mL 0.00 - 12 [facility] ENZYMES 0.40 /2014 [facility] CARDIAC Total CK 34 unit/L 12 - 191 05/21 [facility] ENZYMES /2014 [facility] CHEM PANEL eGFR 63 05/21 Result Comment: The eGFR is calculated using the CKD-EPI formula. In most young, healthy individuals the eGFR will be >90 mL/ min/1.73m2. The eGFR declines with age. An eGFR of 60-89 may be normal in [facility] mL/min/1.7 some populations, particularly the elderly, for whom the CKD-EPI formula has not been extensively validated. Use of the eGFR is not recommended in the following populations: [address] Individuals with unstable creatinine concentrations, including patients and those with serious co-morbid conditions. Patients with extremes in muscle mass or diet. The data above are obtained from the National Kidney Disease Education Program (NKDEP) which additionally recommends that when the eGFR is used in patients with extremes of body mass index for purposes of drug dosing, the eGFR should be multiplied by the estimated BMI. CHEM PANEL AGAP 15.1 meq/L 10.0 - 05/21 [facility] 20.0 [facility] CHEM PANEL Calcium Lvl 8.5 mg/dL 8.5 - 10.5 05/21 [facility] CHEM PANEL CO2 20 meq/L 24 - 32 05/21 [facility] /2014 [facility] CHEM PANEL Creatinine 1.09 mg/dL 0.50 - 05/21 [facility] 1.40 [facility] CHEM PANEL BUN 17 mg/dL 7 - 22 05/[address] CHEM PANEL Potassium 4.1 meq/L 3.5 - 5.1 05/21 [facility] Lvl /2014 [facility] CHEM PANEL Sodium Lvl 140 meq/L 135 - 145 12/12 [facility] CHEM PANEL Glucose Lvl 177 mg/dL 70 - 99 12 [facility] CHEM PANEL Chloride Lvl 109 meq/L 95 - 109 05/21 [facility] CHEM PANEL Phosphorus 4.2 mg/dL 2.5 - 4.5 05/21 [facility] CHEM PANEL Magnesium 2.2 mg/dL 1.8 - 2.4 05/21 [facility] Lvl [facility] HEMATOLOGY Macrocyte 1+ None [facility]en 05[facility] 12:13 AM[facility] HEMATOLOGY Lymphocytes 0.6 K/CMM 1.0 - 5.5 05/21 [facility] # /2014 [facility] HEMATOLOGY Basophils 0.4 % 0.0 - 1.0 05/21 [facility] HEMATOLOGY Monocytes # 0.4 K/CMM 0.0 - 0.8 05/[address] [place] [address] HEMATOLOGY Lymphocytes 15.6 % 20.0 - 05/21 [facility] 40.0 [facility] HEMATOLOGY Segs-Bands # 3.0 K/CMM 1.5 - 8.1 05/[address] [place] [address] HEMATOLOGY Monocytes 8.8 % 2.0 - 12.0 05/21 [facility] HEMATOLOGY Eosinophils 0.7 % 0.0 - 4.0 05/21 [facility] HEMATOLOGY Segs 74.5 % 45.0 - 05/21 [facility] 75.0 [facility] HEMATOLOGY INR 1.11 0.85 - 05/21 [facility] 1.17 [facility] HEMATOLOGY PTT 30.1 s 22.9 - 12 35.8 [facility] HEMATOLOGY PT 14.6 s 12.0 - 12 [facility] 14.7 [facility] HEMATOLOGY Platelet 117 K/CMM 133 - 450 12 [facility] HEMATOLOGY MPV 9.6 fL 7.4 - 10.4 05/21 [facility] HEMATOLOGY MCH 33.1 pg 27.0 - 12 [facility] 31.0 [facility] HEMATOLOGY MCHC 32.9 g/dL 32.0 - 12 [facility] 36.0 [facility] HEMATOLOGY RDW 13.2 % 11.5 - 12/ [facility] 14.5 [facility] HEMATOLOGY Hgb 10.2 g/dL 14.0 - 05/21 [facility] 18.0 [facility] HEMATOLOGY Hct 30.9 % 42.0 - 05/21 [facility] 54.0 /2014 [facility] HEMATOLOGY MCV 100.6 fL 80.0 - 05/21 [facility] 94.0 /2014 [facility] HEMATOLOGY RBC 3.07 M/CMM 4.70 - 05/21 [facility] 6.10 [facility] HEMATOLOGY WBC 4.0 K/CMM 3.7 - 10.4 05/21 [facility] PARATHYROI Ca Norm WB 1.13 1.05 - 05/21 [facility] D PROFILE mMol/L 1. [facility] PARATHYROI Ca Ion WB 1.09 1. - 05/21 [facility] D PROFILE mMol/L 1. [facility] CHEM PANEL Lactic Acid 0.7 mMol/L 0.5 - 2.2 05/20 [facility] CHEM PANEL Magnesium 1.4 mg/dL 1.8 - 2.4 05/20 [facility] CHEM PANEL Phosphorus 3.5 mg/dL 2.5 - 4.5 05/20 [facility] CHEM PANEL eGFR 78 05/20 Result Comment: The eGFR is calculated using the CKD-EPI formula. In most young, healthy individuals the eGFR will be >90 mL/ min/1.73m2. The eGFR declines with age. An eGFR of 60-89 may be normal in [facility] mL/min/1. some populations, particularly the elderly, for whom the CKD-EPI formula has not been extensively validated. Use of the eGFR is not recommended in the following populations: [address] Individuals with unstable creatinine concentrations, including patients and those with serious co-morbid conditions. Patients with extremes in muscle mass or diet. The data above are obtained from the National Kidney Disease Education Program (NKDEP) which additionally recommends that when the eGFR is used in patients with extremes of body mass index for purposes of drug dosing, the eGFR should be multiplied by the estimated BMI. CHEM PANEL Calcium Lvl 6.5 mg/dL 8.5 - 10.5 05/20 Result Comment: [facility] Result(s) called to HANK TANNER at 05/20/2015 14:22_ by CN_. Read back OK. CHEM PANEL AGAP 14.7 meq/L 10.0 - 12 [place] 20.0 /2014 [facility] CHEM PANEL Glucose Lvl 108 mg/dL 70 - 99 12 [facility] CHEM PANEL Sodium Lvl 145 meq/L 135 - 145 12/ [facility] CHEM PANEL Potassium 2.7 meq/L 3.5 - 5.1 12 Result [facility] Lvl /2014 Comment: [facility] Result(s) called to HANK TANNER at 05/20/2015 14:22_ by CN_. Read back OK. CHEM PANEL BUN 12 mg/dL 7 - 22 12 [facility] CHEM PANEL Creatinine 0.92 mg/dL 0.50 - 12 [facility] Lvl 1.40 [facility] CHEM PANEL Chloride Lvl 113 meq/L 95 - 109 05/20 [facility] CHEM PANEL CO2 20 meq/L 24 - 32 12 [facility] HEMATOLOGY PTT >200 22.9 - 05/20 Result [facility] seconds 35.8 Comment: [facility] Result(s) called to Benigno Jennings at 05/20/2015 14:[address] Read back OK. HEMATOLOGY PT 16.3 s 12.0 - 05/20 [place] 14.7 /2014 [facility] HEMATOLOGY INR 1.28 0.85 - 05/20 [place] 1.17 /2014 [facility] HEMATOLOGY Platelet 108 K/CMM 133 - 450 12 [facility] HEMATOLOGY MPV 9.8 fL 7.4 - 10.4 12 [facility] HEMATOLOGY MCV 100.5 fL 80.0 - 05/20 [place] 94.0 /2014 [facility] HEMATOLOGY RDW 13.3 % 11.5 - 12 [place] 14.5 [facility] HEMATOLOGY MCHC 32.9 g/dL 32.0 - 12 [place] 36.0 /2014 [facility] HEMATOLOGY MCH 33.1 pg 27.0 - 12 [place] 31.0 /2014 [facility] HEMATOLOGY RBC 2.95 M/CMM 4.70 - 12/ [place] 6.10 /2014 [facility] HEMATOLOGY Hct 29.7 % 42.0 - 12 [place] 54.0 [facility] HEMATOLOGY Hgb 9.8 g/dL 14.0 - 05/20 [facility] 18.0 /2014 [facility] HEMATOLOGY WBC 3.6 K/CMM 3.7 - 10.4 05/20 [facility] HEMATOLOGY Monocytes 11.3 % 2.0 - 12.0 05/20 [facility] [address] [place] [address] HEMATOLOGY Segs 60.4 % 45.0 - 05/20 [facility] 75.0 /2014 [facility] HEMATOLOGY Lymphocytes 23.3 % 20.0 - 05/20 [place] 40.0 /2014 [facility] HEMATOLOGY Segs-Bands # 2.2 K/CMM 1.5 - 8.1 05/20 [facility] HEMATOLOGY Lymphocytes 0.9 K/CMM 1.0 - 5.5 05/20 [facility] # /2014 [facility] HEMATOLOGY Basophils 0.3 % 0.0 - 1.0 05/20 [facility] HEMATOLOGY Eosinophils 4.7 % 0.0 - 4.0 05/[address] HEMATOLOGY Monocytes # 0.4 K/CMM 0.0 - 0.8 05/[address] HEMATOLOGY Macrocyte 1+ None Seen 05[facility]05[facility]15 1:48 PM[facility] HEMATOLOGY Eosinophils 0.2 K/CMM 0.0 - 0.5 05/20 [facility] /2014 [facility] PARATHYROI Ca Ion WB 1.12 1.05 - 05/20 [facility] D PROFILE mMol/L 1. [facility] [facility] Norm WB 1.09 1.05 - 05/20 [facility] D PROFILE mMol/L 1. [facility] CHEM PANEL Globulin 3.0 g/dL 2.0 - 4.0 05/20 [facility] CHEM PANEL B/C Ratio 15 6 - 25 05/20 [facility] [address] [place] [address] CHEM PANEL Bili Total 0.8 mg/dL 0.2 - 1.3 05/20 [facility] CHEM PANEL A/G Ratio 1.1 0.7 - 1.6 05/[address] CHEM PANEL Alk Phos 73 unit/L 39 - 136 05/[address] CHEM PANEL Albumin Lvl 3.2 g/dL 3.5 - 5.0 05/[address] CHEM PANEL ALT 30 unit/L 0 - 65 12 [facility] CHEM PANEL AST 20 unit/L 0 - 37 12/ [facility] CHEM PANEL Total 6.2 g/dL 6.4 - 8.4 05/20 [facility] Protein [facility] HEMATOLOGY INR 1.06 0.85 - 12 [place] 1.17 /2014 [facility] HEMATOLOGY PT 14.1 s 12.0 - 12 [place] 14.7 /2014 [facility] HEMATOLOGY PTT 67.4 s 22.9 - 12 [place] 35.8 /2014 [facility] HEMATOLOGY Eosinophils 0.2 K/CMM 0.0 - 0.5 12 [place] # /2014 [facility] CHEM PANEL AST 27 unit/L 0 - 37 05/17 [facility] CHEM PANEL ALT 30 unit/L 0 - 65 05/17 [facility] CHEM PANEL Albumin Lvl 3.0 g/dL 3.5 - 5.0 05/17 [facility] CHEM PANEL Alk Phos 65 unit/L 39 - 136 05/17 [facility] CHEM PANEL B/C Ratio 11 6 - 25 05/17 [facility] [address] [place] [address] CHEM PANEL Bili Total 0.8 mg/dL 0.2 - 1.3 05/17 [facility] CHEM PANEL Total 5.6 g/dL 6.4 - 8.4 05/17 [facility] Protein [facility] CHEM PANEL A/G Ratio 1.2 0.7 - 1.6 05/[address] CHEM PANEL Globulin 2.6 g/dL 2.0 - 4.0 05/17 [facility] HEMATOLOGY PTT 58.0 s 22.9 - 12 35. [facility] CHEM PANEL Phosphorus 3.0 mg/dL 2.5 - 4.5 05/15 [facility] CHEM PANEL Magnesium 1.8 mg/dL 1.8 - 2.4 05/15 Lvl [facility] ELECTROLYT AGAP 8.9 meq/L 10.0 - 12 ES 20.0 /2014 [place] ELECTROLYT eGFR 59 05/15 Result Comment: The eGFR is calculated using the CKD-EPI formula. In most young, healthy individuals the eGFR will be >90 mL/ min/1.73m2. The eGFR declines with age. An eGFR of 60-89 may be normal in [facility] mL/min/1.7 /2014 some populations, particularly the elderly, for whom the CKD-EPI formula has not been extensively validated. Use of the eGFR is not recommended in the following populations: [facility] 3m2 Individuals with unstable creatinine concentrations, including patients and those with serious co-morbid conditions. Patients with extremes in muscle mass or diet. The data above are obtained from the National Kidney Disease Education Program (NKDEP) which additionally recommends that when the eGFR is used in patients with extremes of body mass index for purposes of drug dosing, the eGFR should be multiplied by the estimated BMI. ELECTROLYT Calcium Lvl 8.5 mg/dL 8.5 - 10.5 05/15 [facility] ELECTROLYT CO2 27 meq/L 24 - 32 05/15 [facility] ELECTROLYT Sodium Lvl 141 meq/L 135 - 145 05/15 [facility] ELECTROLYT Potassium 3.9 meq/L 3.5 - 5.1 05/15 [facility] Lvl [facility] ELECTROLYT Chloride Lvl 109 meq/L 95 - 109 05/15 [facility] ELECTROLYT Glucose Lvl 117 mg/dL 70 - 99 05/15 [facility] ELECTROLYT Creatinine 1.15 mg/dL 0.50 - 05/15 [facility] Lvl 1.40 [facility] ELECTROLYT BUN 14 mg/dL 7 - 22 05/[address] [facility] HEMATOLOGY Segs-Bands # 2.7 K/CMM 1.5 - 8.1 05/15 [facility] HEMATOLOGY Lymphocytes 1.2 K/CMM 1.0 - 5.5 05/15 # /2014 [facility] HEMATOLOGY Eosinophils 0.2 K/CMM 0.0 - 0.5 05/15 # /2014 [facility] HEMATOLOGY Monocytes # 0.5 K/CMM 0.0 - 0.8 05/15 [facility] HEMATOLOGY Macrocyte 1+ None Seen 05/15 [facility] *ABN* (05/15/15 4:30 AM) HEMATOLOGY Monocytes 11.6 % 2.0 - 12.0 05/15 [facility] HEMATOLOGY Lymphocytes 25.4 % 20.0 - 05/[address] [facility] HEMATOLOGY Segs 57.5 % 45.0 - 05/[address] [facility] HEMATOLOGY Basophils 0.5 % 0.0 - 1.0 05/15 [facility] HEMATOLOGY Eosinophils 5.0 % 0.0 - 4.0 05/15 [facility] HEMATOLOGY PTT 56.4 s 22.9 - 05/[address] [facility] MCH 33.4 pg 27.0 - 05/15 MH 31.0 /2014 [facility] HEMATOLOGY Hct 32.9 % 42.0 - 05/15 MH 54.0 /2014 [facility] HEMATOLOGY MCV 99.6 fL 80.0 - 05/15 94.0 /2014 [facility] HEMATOLOGY Platelet 104 K/CMM 133 - 450 05/15 [facility] HEMATOLOGY MPV 9.5 fL 7.4 - 10.4 05/15 [facility] HEMATOLOGY RDW 13.4 % 11.5 - 05/[address] [facility] MCHC 33.6 g/dL 32.0 - 05/15 MH 36.0 /2014 [facility] RBC 3.30 M/CMM 4.70 - 05/[address] [facility] Hgb 11.0 g/dL 14.0 - 05/[address] [facility] WBC 4.7 K/CMM 3.7 - 10.4 05/15 [facility] PTT 55.3 s 22.9 - 05/[address] [facility] CHEM PANEL Phosphorus 3.2 mg/dL 2.5 - 4.5 05/14 [facility] CHEM PANEL Magnesium 1.7 mg/dL 1.8 - 2.4 05/[address] [facility] CHEM PANEL eGFR 52 05/14 Result Comment: The eGFR is calculated using the CKD-EPI formula. In most young, healthy individuals the eGFR will be >90 mL/ min/1.73m2. The eGFR declines with age. An eGFR of 60-89 may be normal in [facility] mL/min/1.7 /2014 some populations, particularly the elderly, for whom the CKD-EPI formula has not been extensively validated. Use of the eGFR is not recommended in the following populations: [facility] 3m2 Individuals with unstable creatinine concentrations, including patients and those with serious co-morbid conditions. Patients with extremes in muscle mass or diet. The data above are obtained from the National Kidney Disease Education Program (NKDEP) which additionally recommends that when the eGFR is used in patients with extremes of body mass index for purposes of drug dosing, the eGFR should be multiplied by the estimated BMI. CHEM PANEL Chloride Lvl 108 meq/L 95 - 109 05/14 [facility] CHEM PANEL Potassium 3.9 meq/L 3.5 - 5.1 05/14 MH Lvl /2014 [facility] CHEM PANEL Sodium Lvl 142 meq/L 135 - 145 05/14 [facility] CHEM PANEL Creatinine 1.29 mg/dL 0.50 - 05/14 MH Lvl 1.40 /2014 [place] CHEM PANEL CO2 26 meq/L 24 - 32 05/14 [facility] CHEM PANEL Calcium Lvl 8.2 mg/dL 8.5 - 10.5 05/14 [facility] CHEM PANEL BUN 20 mg/dL 7 - 22 05/14 [facility] CHEM PANEL Glucose Lvl 111 mg/dL 70 - 99 05/14 [facility] CHEM PANEL AGAP 11.9 meq/L 10.0 - 12 MH 20.0 /2014 [facility] HEMATOLOGY MPV 9.3 fL 7.4 - 10.4 05/14 [facility] HEMATOLOGY RDW 13.2 % 11.5 - 05/14 MH 14.5 /2014 [facility] HEMATOLOGY MCHC 33.2 g/dL 32.0 - 12 MH 36.0 /2014 [facility] HEMATOLOGY Platelet 102 K/CMM 133 - 450 05/14 /2014 [facility] HEMATOLOGY MCH 33.2 pg 27.0 - 05/14 MH 31.0 /2014 [facility] HEMATOLOGY Hct 32.7 % 42.0 - 05/14 MH 54.0 /2014 [facility] HEMATOLOGY MCV 99.9 fL 80.0 - 05/14 MH 94.0 /2014 [facility] HEMATOLOGY WBC 5.1 K/CMM 3.7 - 10.4 05/14 /2014 [facility] HEMATOLOGY RBC 3.27 M/CMM 4.70 - 12 MH 6.10 /2014 [facility] HEMATOLOGY Hgb 10.9 g/dL 14.0 - 05/14 MH 18.0 /2014 [facility] HEMATOLOGY Lymphocytes 1.4 K/CMM 1.0 - 5.5 05/14 MH # /2014 [facility] HEMATOLOGY Monocytes # 0.5 K/CMM 0.0 - 0.8 05/14 [facility] HEMATOLOGY Segs-Bands # 3.0 K/CMM 1.5 - 8.1 05/14 /2014 [facility] HEMATOLOGY Basophils 0.5 % 0.0 - 1.0 05/14 [facility] HEMATOLOGY Eosinophils 0.2 K/CMM 0.0 - 0.5 05/14 # /2015 [facility] HEMATOLOGY Macrocyte 1+ None Seen 05/14 [facility] *ABN* (05/14/15 6:20 AM) HEMATOLOGY Segs 58.7 % 45.0 - 05/14 MH 75.0 /2014 [facility] HEMATOLOGY Lymphocytes 26.6 % 20.0 - 12 MH 40.0 /2014 [facility] HEMATOLOGY Monocytes 10.1 % 2.0 - 12.0 05/14 [facility] HEMATOLOGY Eosinophils 4.1 % 0.0 - 4.0 05/14 [facility] CARDIAC Total CK 74 unit/L 12 - 191 05/13 [facility] /2014 [facility] CARDIAC Troponin-I 0.69 ng/mL 0.00 - 05/13 Result ENZYMES 0.40 Comment: [facility] Critical Result(s) called to Taz Hebert RN at 05/13/2015 03:08 by shyann. Read back OK. CHEM PANEL Phosphorus 3.0 mg/dL 2.5 - 4.5 05/13 [facility] CHEM PANEL Magnesium 1.8 mg/dL 1.8 - 2.4 05/[address] [facility] ELECTROLYT AGAP 9.0 meq/L 10.0 - 05/[address] [facility] ELECTROLYT eGFR 48 05/13 Result Comment: The eGFR is calculated using the CKD-EPI formula. In most young, healthy individuals the eGFR will be >90 mL/ min/1.73m2. The eGFR declines with age. An eGFR of 60-89 may be normal in [facility] mL/min/1.7 some populations, particularly the elderly, for whom the CKD-EPI formula has not been extensively validated. Use of the eGFR is not recommended in the following populations: [facility] 3m2 Individuals with unstable creatinine concentrations, including patients and those with serious co-morbid conditions. Patients with extremes in muscle mass or diet. The data above are obtained from the National Kidney Disease Education Program (NKDEP) which additionally recommends that when the eGFR is used in patients with extremes of body mass index for purposes of drug dosing, the eGFR should be multiplied by the estimated BMI. ELECTROLYT Calcium Lvl 8.8 mg/dL 8.5 - 10.5 05/13 ES [facility] ELECTROLYT CO2 28 meq/L 24 - 32 05/13 ES /2014 [facility] ELECTROLYT Chloride Lvl 108 meq/L 95 - 109 05/13 ES /2014 [facility] ELECTROLYT Potassium 4.0 meq/L 3.5 - 5.1 05/13 ES Lvl /2014 [facility] ELECTROLYT Glucose Lvl 127 mg/dL 70 - 99 05/13 ES /2014 [facility] ELECTROLYT Sodium Lvl 141 meq/L 135 - 145 05/13 ES /2014 [facility] ELECTROLYT Creatinine 1.36 mg/dL 0.50 - 05/13 ES Lvl 1.40 /2014 [facility] ELECTROLYT BUN 29 mg/dL 7 - 22 05/13 ES /2014 [facility] HEMATOLOGY Eosinophils 0.1 K/CMM 0.0 - 0.5 05/13 MH # /2014 [facility] HEMATOLOGY Monocytes # 0.4 K/CMM 0.0 - 0.8 05/13 [facility] HEMATOLOGY Macrocyte 1+ None Seen 05/13 [facility] *ABN* (05/13/15 2:07 AM) HEMATOLOGY Segs-Bands # 2.7 K/CMM 1.5 - 8.1 05/13 [facility] HEMATOLOGY Basophils 0.4 % 0.0 - 1.0 05/13 [facility] HEMATOLOGY Eosinophils 3.2 % 0.0 - 4.0 05/13 [facility] HEMATOLOGY Lymphocytes 1.2 K/CMM 1.0 - 5.5 05/13 /2014 [facility] HEMATOLOGY Monocytes 8.6 % 2.0 - 12.0 05/13 [facility] HEMATOLOGY Lymphocytes 27.6 % 20.0 - 05/13 40.0 [facility] HEMATOLOGY Segs 60.2 % 45.0 - 05/[address] [facility] HEMATOLOGY WBC 4.4 K/CMM 3.7 - 10.4 05/13 [facility] HEMATOLOGY RBC 3.33 M/CMM 4.70 - 05/[address] [facility] HEMATOLOGY Platelet 114 K/CMM 133 - 450 05/13 [facility] HEMATOLOGY MPV 10.0 fL 7.4 - 10.4 05/13 [facility] HEMATOLOGY Hgb 11.3 g/dL 14.0 - 05/[address] [facility] HEMATOLOGY Hct 33.1 % 42.0 - 05/13 54.0 /2014 [facility] HEMATOLOGY RDW 13.4 % 11.5 - 05/13 MH 14.5 /2014 [facility] HEMATOLOGY MCV 99.4 fL 80.0 - 05/13 94.0 /2014 [facility] HEMATOLOGY MCH 34.0 pg 27.0 - 05/13 MH 31.0 /2014 [facility] HEMATOLOGY MCHC 34.2 g/dL 32.0 - 05/13 MH 36.0 /2014 [facility] LIPIDS Trig 302 mg/dL <=149 05/13 mg/dL /2014 [facility] LIPIDS VLDL 60 05/13 MH /2014 [facility] LIPIDS Chol 143 mg/dL <=199 05/13 mg/dL /2014 [facility] LIPIDS CHD Risk 5.11 4.00 - 05/13 7.30 /2014 [facility] LIPIDS HDL 28 mg/dL >=61 mg/dL 05/13 [facility] LIPIDS LDL 55 mg/dL <=99 mg/dL 05/13 (Calculated) [facility] CARDIAC CK MB Index 3.9 0.0 - 2.5 05/13 [place] /2014 [facility] CARDIAC CK MB 3.3 ng/mL 0.5 - 3.6 05/13 [place] /2014 [facility] CARDIAC Total CK 85 unit/L - 05/13 [place] /2014 [facility] CARDIAC Troponin-I 0.69 ng/mL 0.00 - 05/13 Result ENZYMES 0.40 /2014 Comment: [facility] Critical Result(s) called to Taz Hebert RN at 05/12/2015 22:11 by shyann. Read back OK. HEMATOLOGY INR 1.14 0.85 - 05/13 1.17 /2014 [facility] HEMATOLOGY PT 14.9 s 12.0 - 05/13 14.7 /2014 [facility] CARDIAC BNP 408 pg/mL <=100 05/12 [place] pg/mL /2014 [facility] CARDIAC Troponin-I 1.25 ng/mL 0.00 - 05/12 Result ENZYMES 0.40 /2014 Comment: [facility] Critical Result(s) called to jose alfredo shearer at _05/12/2015 15:38 bychristian_. Read back OK. CARDIAC Total CK 112 unit/L 12 - 191 05/12 [place] /2014 [facility] CARDIAC CK MB 4.5 ng/mL 0.5 - 3.6 05/12 [place] /2014 [facility] CARDIAC CK MB Index 4.0 0.0 - 2.5 05/12 [place] /2014 [facility] CHEM PANEL Alk Phos 89 unit/L 39 - 136 05/12 [facility] CHEM PANEL B/C Ratio 18 6 - 25 05/12 [facility] CHEM PANEL Bili Total 0.9 mg/dL 0.2 - 1.3 05/12 [facility] CHEM PANEL A/G Ratio 1.1 0.7 - 1.6 05/12 [facility] CHEM PANEL Globulin 3.7 g/dL 2.0 - 4.0 05/12 [facility] CHEM PANEL Total 7.6 g/dL 6.4 - 8.4 05/[address] [facility] CHEM PANEL Albumin Lvl 3.9 g/dL 3.5 - 5.0 05/12 [facility] CHEM PANEL AST 33 unit/L 0 - 37 05/12 [facility] CHEM PANEL ALT 34 unit/L 0 - 65 05/12 [facility] HEMATOLOGY INR 1.02 0.85 - 05/12 1.17 /2014 [facility] HEMATOLOGY PT 13.7 s 12.0 - 05/12 MH 14.7 /2014 [facility] URINE AND UA Leuk Est Negative Negative 05/[address] [facility] (05/12/15 2:56 PM) URINE AND UA Bili Negative Negative 05/[address] [facility] *NA* (05/12/15 2:56 PM) URINE AND UA Blood Negative Negative 05/[address] [facility] (05/12/15 2:56 PM) URINE AND UA Nitrite Negative Negative 05/[address] [facility] (05/12/15 2:56 PM) URINE AND UA 0.2 EU/dL 0.1 - 1.0 05/12 STOOL Urobilinogen /2014 [facility] URINE AND UA pH 5.0 5.0 - 8.0 05/[address] [facility] URINE AND UA Color Yellow Yellow 05/[address] [facility] *NA* (05/12/15 2:56 PM) URINE AND UA Glucose Negative Negative 05/12 [facility] mg/dL mg/dL [facility] URINE AND UA Protein Negative Negative 05/12 [facility] mg/dL mg/dL [facility] URINE AND UA Ketones Negative Negative 05/12 [facility] mg/dL mg/dL [facility] URINE AND UA Spec Grav 1.010 <=1.030 05/[address] [facility] URINE AND UA Turbidity Clear Clear 05/[address] [facility] (05/12/15 2:56 PM) URINE AND UA WBC 0-2 /HPF None Seen 05/12 [facility] /HPF /2014 [facility] URINE AND UA Sq Epi None Seen Few 05/[address] [facility] (05/12/15 2:56 PM) URINE AND UA Bacteria None Seen None Seen 05/[address] [facility] (05/12/15 2:56 PM) URINE AND UA RBC None Seen 0 - 2 05/12 [facility] (05/12/15 2:56 PM) Chest Chest 1view Name: GILL MADERA 05/12 [facility] 1view DX DX /2014 - [facility] : 1935 Read by: Snehal Fung MD Dictated Date/time: 05/12/15 16:08 SEX: M Electronically Signed by: Snehal Fung MD 05/12/15 16:09 FINAL REPORT Ordering Physician: Maulik Weinberg Chest 1view : May 12, 2015 02:36:00 PM. CLINICAL INDICATION: Chest pain Comparison Examination: 01/16/2012 FINDINGS: This portable AP chest radiograph shows mild central pulmonary vascular congestion in many enlarged cardiac silhouette. Was CABG changes are seen. Cardiac AICD lead is in stable position. Low lung volum es are seen by basilar atelectasis. There is no pleural effusion or pneumothorax. There are no clinically significant osseous abnormalities noted. IMPRESSION: Mildly enlarged chronic silhouette and central pulmonary vascular congestion. Underinflation and bibasilar atelectasis. SL: 57 Renal Renal Stone Name: GILL MADERA 11/[address] [facility] Stone CT CT /2013 - Outpatient : [address] [facility] Read by: Silverio Mahmood MD Dictated Date/time: 11/13/13 15:19 Ordering Physician: Cely Echavarria Electronically Signed by: Silverio Mahmood MD 11/13/13 15:54 FINAL REPORT Renal Stone CT : Nov 13, 2013 02:59:00 PM. CLINICAL INDICATION: flank pain REASON FOR EXAM: See Clinic Indication Comparison Examination: CT the abdomen pelvis July 17, 2006. TECHNIQUE: Renal Stone protocol CT is performed without iodinated contrast. Multi-detector helical CT axial images were obtained from the level of the diaphragm through the lower pelvis. Coronal and sag ittal reconstructions were obtained and viewed on a [employer] workstation. FINDINGS: A 5 mm calcified granuloma is seen in the right lower lobe just above the diaphragm. Minor streaky densities are seen in both lungs consistent with scarring. A calcified conglomeration is seen anteriorly in the mesenteric fat that measures 3.2 x 2.3 x 1.8 cm in size that corresponds to a focus seen on the previous CT that had more of a soft tissue component to it and was not as large. Very little soft tissue component is seen on today's examination compared to the crescent shaped focus of soft tissue density along the anterior margin. A similar conglo meration is seen in the left pelvic region centrally in the mesenteric fat that measures 1.5 cm x 1 cm x 1.7 cm an also has very little soft tissue component an corresponds to a much smaller focus of calcification is seen on the previous examination. There are no renal calculi, contour deforming masses or hydronephrosis. There is no ureterectasis or ureteral calculi. Slight elevation of the floor of the urinary bladder is seen. The noncontrast opacified loops of colon and small bowel in the abdomen and pelvis are unremarkable. Multiple diverticula are seen in the colon especially the sigmoid colon without inflammatory changes of diverticulitis. The appendix is well-visualized and located laterally on the right to the cecum which is located almost in the mid lower pelvis region. Limited noncontrast evaluation of the liver, spleen and pancreas is unremarkable. Increased nodularity and size of both adrenal glands are seen compared to the CT dated July 17, 2006 although a well- defined mass is not seen. Postoperative changes of a cholecystectomy are seen. There is no abdominal lymphadenopathy or ascites. Increased fat is seen in the inguinal canals bilaterally. No aggressive bony lesions are seen. Disc space narrowing is seen at multiple levels with spondylosis. IMPRESSION: 1. No evidence of hydronephrosis, ureterectasis or ureteral calculi are seen. Slight elevation of the floor of the urinary bladder is seen due to prostatic enlargement. 2. Two relatively large conglomerations of amorphous calcifications within the mesenteric fat in the inferior right upper quadrant and in the medial left lower quadrant that are larger than seen on the exam dated July 17, 2006. It is doubtful that these are results of a malignant process and may represent the sequelae of previous peritonitis, pancreatitis or some granulomatous process. SL:53 BEDSIDE Gluc POC 148 mg/dL 65 - 110 06/29 HI 1Interpretive GLUCOSE Lifscn Data: [facility] TESTING Upper Reportable Limit: 200 mg/dL. BEDSIDE Gluc POC 180 mg/dL 65 - 110 06/29 HI 2Interpretive GLUCOSE Lifscn Data: [facility] TESTING Upper Reportable Limit: 200 mg/dL. BEDSIDE Gluc POC 248 mg/dL 65 - 110 06/28 HI 3Interpretive GLUCOSE Lifscn Data: [facility] TESTING Upper Reportable Limit: 200 mg/dL. CHEMISTRY AGAP 14.6 meq/L 10.0 - 06/[address] [facility] CHEMISTRY Calcium Lvl 9.1 mg/dL 8.5 - 10.5 06/[address] [facility] CHEMISTRY CO2 27 meq/L 24 - 32 06/[address] [facility] CHEMISTRY Chloride Lvl 103 meq/L 95 - 109 06/[address] [facility] CHEMISTRY Potassium 4.6 meq/L 3.5 - 5.1 06/[address] [facility] CHEMISTRY Sodium Lvl 140 meq/L 135 - 145 06/[address] [facility] CHEMISTRY Creatinine 2.1 mg/dL 0.5 - 1.4 06/[address] [facility] [address] [facility] CHEMISTRY Glucose Lvl 175 mg/dL 06/26 NA 4Interpretive Data: [facility] Reference Ranges : 0 - 7 days : 41 - 90 mg/dL7 days - 150 yrs : 70 - 99 mg/dL (fasting), based on the clinical recommendatio ns of the [place] [employer]. CHEMISTRY BUN 36 mg/dL 7 - 06/[address] [facility] HEMATOLOGY Basophils # 0.0 K/CMM 0.0 - 0.2 06/[address] [facility] HEMATOLOGY Eosinophils 0.1 K/CMM 0.0 - 0.5 06/[address] [facility] HEMATOLOGY Eosinophils 1.8 % 0.0 - 4.0 06/[address] [facility] HEMATOLOGY Lymphocytes 1.0 K/CMM 1.0 - 5.5 06/[address] [facility] HEMATOLOGY Monocytes # 0.3 K/CMM 0.0 - 0.8 06/[address] [facility] HEMATOLOGY Basophils 0.5 % 0.0 - 1.0 06/26 Normal MH /2011 [facility] HEMATOLOGY Monocytes 7.7 % 2.0 - 12.0 06/26 Normal MH /2011 [facility] HEMATOLOGY Lymphocytes 23.4 % 20.0 - 06/26 Normal MH 40.0 /2011 [facility] HEMATOLOGY Segs-Bands # 2.8 K/CMM 1.5 - 8.1 06/26 Normal MH /2011 [facility] HEMATOLOGY Segs 66.6 % 45.0 - 06/26 Normal MH 75.0 /2011 [facility] HEMATOLOGY PT 13.7 s 12.0 - 06/26 Normal MH 14.7 /2011 [facility] HEMATOLOGY INR 1.05 0.85 - 06/26 Normal 9Interpretive MH 1. Data: [facility] RECOMMENDED RANGES FOR PROTIME INR: 2.0-3.0 for most medical and surgical thromboemboli c states. 2.5-3.5 for artificial heart valves and recurrent embolism.INR SHOULD BE USED ONLY FOR PATIENTS ON STABLE ANTICOAGULANT THERAPY. HEMATOLOGY MPV 10.0 fL 7.4 - 10.4 06/[address] [facility] MCHC 35.5 g/dL 32.0 - 06/26 Normal 36.0 /2011 [facility] HEMATOLOGY RDW 13.4 % 11.5 - 06/26 Normal MH 14.5 /2011 [facility] Platelet 127 K/CMM 133 - 450 06/26 LOW MH /2011 [facility] HEMATOLOGY Hct 32.2 % 42.0 - 06/26 LOW 7Result MH 54.0 Comment: [facility] Reference range changed due to change in patient's gender at 08:43:59. Normal Low changed from not defined to 42.0. Normal High changed from not defined to 54.0. Result flag changed from not applied to L. HEMATOLOGY Hgb 11.4 g/dL 14.0 - 06/26 LOW 6Result MH 18.0 Comment: [facility] Reference range changed due to change in patient's gender at 08:43:59. Normal Low changed from not defined to 14.0. Normal High changed from not defined to 18.0. Result flag changed from not applied to L. HEMATOLOGY MCV 97.1 fL 80.0 - 06/26 HI 8Result MH 94.0 Comment: [facility] Reference range changed due to change in patient's gender at 08:43:59. Normal Low changed from not defined to 80.0. Normal High changed from not defined to 94.0. Result flag changed from not applied to H. HEMATOLOGY MCH 34.5 pg 27.0 - 06/26 [facility] 31.0 [facility] H[facility] RBC 3.32 M/CMM 4.70 - 06/26 LOW 5Result 6.10 Comment: [facility] Reference range changed due to change in patient's gender at 08:43:59. Normal Low changed from not defined to 4.70. Normal High changed from not defined to 6.10. Result flag changed from not applied to L. HEMATOLOGY WBC 4.2 K/CMM 3.7 - 10.4 06/[address] [facility] Vital Signs Vital Sign Value Date Comments Source Respitory Rate 19 08/06/2017 [place] Systolic (mm Hg) 131 08/06/2017 [place] Diastolic (mm Hg) 62 08/06/2017 [place] Respitory Rate 18 08/06/2017 [place] Systolic (mm Hg) 131 08/06/2017 [place] Diastolic (mm Hg) 62 08/06/2017 [place] Respitory Rate 19 08/06/2017 [place] Systolic (mm Hg) 121 08/06/2017 [place] Diastolic (mm Hg) 64 08/06/2017 [place] Weight 90.909 08/06/2017 [place] BMI Calculated 28.76 08/06/2017 [place] Height 177.8 cm 08/06/2017 [place] Temperature Oral (F) 97.6 F 08/06/2017 [place] Heart Rate 68 08/06/2017 [place] Respitory Rate 20 05/30/2017 [facility] Heart Rate 58 05/30/2017 [facility] Systolic (mm Hg) 132 05/30/2017 [facility] Diastolic (mm Hg) 68 05/30/2017 [facility] Temperature Oral (F) 98.1 F 05/30/2017 [facility] Systolic (mm Hg) 126 05/30/2017 [facility] Diastolic (mm Hg) 60 05/30/2017 [facility] Heart Rate 55 05/30/2017 [facility] Respitory Rate 20 05/30/2017 [facility] Heart Rate 59 05/30/2017 [facility] Systolic (mm Hg) 146 05/30/2017 [facility] Diastolic (mm Hg) 63 05/30/2017 [facility] Respitory Rate 20 05/30/2017 [facility] Temperature Oral (F) 97 F 05/30/2017 [facility] Weight 83.182 05/30/2017 [facility] BMI Calculated 28.72 05/30/2017 [facility] Height 170.18 cm 05/30/2017 [facility] Systolic (mm Hg) 120 11/03/2016 [facility] Diastolic (mm Hg) 64 11/03/2016 [facility] Temperature Oral (F) 97.6 F 11/03/2016 [facility] Heart Rate 66 11/03/2016 [facility] Temperature Oral (F) 98.2 F 11/03/2016 [facility] Heart Rate 68 11/03/2016 [facility] Respitory Rate 18 11/03/2016 [facility] Systolic (mm Hg) 101 11/03/2016 [facility] Diastolic (mm Hg) 50 11/03/2016 [facility] Systolic (mm Hg) 121 11/03/2016 [facility] Diastolic (mm Hg) 56 11/03/2016 [facility] Respitory Rate 18 11/03/2016 [facility] Heart Rate 65 11/03/2016 [facility] Temperature Oral (F) 98.2 F 11/03/2016 [facility] Respitory Rate 18 11/03/2016 [facility] BMI Calculated 28.04 11/03/2016 [facility] Height 172.72 cm 11/03/2016 [facility] Weight 83.636 11/03/2016 [facility] BMI Calculated 28.49 11/02/2016 [facility] Weight 85 11/02/2016 [facility] Height 172.72 cm 11/02/2016 [facility] Systolic (mm Hg) 122 09/25/2016 [facility] Height 66 09/25/2016 [facility] Diastolic (mm Hg) 50 09/25/2016 [facility] Systolic (mm Hg) 136 09/03/2016 [facility] Height 66 09/03/2016 [facility] Diastolic (mm Hg) 60 09/03/2016 [facility] Systolic (mm Hg) 110 06/19/2016 [facility] Height 66 06/19/2016 [facility] Diastolic (mm Hg) 50 06/19/2016 [facility] Systolic (mm Hg) 118 04/10/2016 [facility] Height 66 04/10/2016 [facility] Diastolic (mm Hg) 56 04/10/2016 [facility] Systolic (mm Hg) 158 12/30/2015 [facility] Diastolic (mm Hg) 67 12/30/2015 [facility] Temperature Oral (F) 98.0 F 12/30/2015 [facility] Heart Rate 68 12/30/2015 [facility] Respitory Rate 16 12/30/2015 [facility] Temperature Oral (F) 98.4 F 12/30/2015 [facility] Respitory Rate 16 12/30/2015 [facility] Heart Rate 62 12/30/2015 [facility] Systolic (mm Hg) 137 12/30/2015 [facility] Diastolic (mm Hg) 65 12/30/2015 [facility] Weight 82.273 12/30/2015 [facility] Temperature Oral (F) 98.2 F 12/30/2015 [facility] Heart Rate 64 12/30/2015 [facility] Systolic (mm Hg) 130 12/30/2015 [facility] Diastolic (mm Hg) 64 12/30/2015 [facility] Respitory Rate 16 12/30/2015 [facility] BMI Calculated 28.82 12/28/2015 [facility] Weight 83.455 12/28/2015 [facility] Height 170.18 cm 12/28/2015 [facility] BMI Calculated 29.25 12/28/2015 [facility] Height 170.18 cm 12/28/2015 [facility] Weight 84.716 12/28/2015 [facility] Systolic (mm Hg) 104 05/22/2015 [facility] Diastolic (mm Hg) 52 05/22/2015 [facility] Systolic (mm Hg) 109 05/22/2015 [facility] Diastolic (mm Hg) 52 05/22/2015 [facility] Temperature Oral (F) 98.2 F 05/22/2015 [facility] Systolic (mm Hg) 140 05/22/2015 [facility] Diastolic (mm Hg) 66 05/22/2015 [facility] Temperature Oral (F) 98.2 F 05/21/2015 [facility] Temperature Oral (F) 98.0 F 05/21/2015 [facility] Respitory Rate 20 05/20/2015 [facility] Heart Rate 63 05/20/2015 [facility] Respitory Rate 18 05/20/2015 [facility] Heart Rate 63 05/20/2015 [facility] Heart Rate 73 05/20/2015 [facility] Respitory Rate 18 05/20/2015 [facility] BMI Calculated 29.35 05/17/2015 [facility] Height 170.18 cm 05/17/2015 [facility] Weight 85 05/17/2015 [facility] Systolic (mm Hg) 144 05/17/2015 [facility] Diastolic (mm Hg) 62 05/17/2015 [facility] Respitory Rate 18 05/17/2015 [facility] Temperature Oral (F) 97.7 F 05/17/2015 [facility] Heart Rate 71 05/17/2015 [facility] Systolic (mm Hg) 135 05/16/2015 [facility] Diastolic (mm Hg) 60 05/16/2015 [facility] Respitory Rate 18 05/16/2015 [facility] Heart Rate 56 05/16/2015 [facility] Temperature Oral (F) 97.6 F 05/16/2015 [facility] Heart Rate 61 05/16/2015 [facility] Respitory Rate 18 05/16/2015 [facility] Temperature Oral (F) 97.5 F 05/16/2015 [facility] Systolic (mm Hg) 142 05/16/2015 [facility] Diastolic (mm Hg) 67 05/16/2015 [facility] BMI Calculated 28.73 05/13/2015 [facility] Weight 83.2 05/13/2015 [facility] Height 170.18 cm 05/13/2015 [facility] Weight 84.659 05/12/2015 [facility] BMI Calculated 30.12 05/12/2015 [facility] Height 167.64 cm 05/12/2015 [facility] Weight 81.364 05/12/2015 [facility] BMI Calculated 28.95 05/12/2015 [facility] Height 167.64 cm 05/12/2015 [facility] Systolic (mm Hg) 124 05/12/2015 [facility] Height 66 05/12/2015 [facility] Diastolic (mm Hg) 58 05/12/2015 [facility] Systolic (mm Hg) 126 06/25/2014 [facility] Height 66 06/25/2014 [facility] Diastolic (mm Hg) 68 06/25/2014 [facility] Systolic (mm Hg) 112 03/19/2014 [facility] Height 66 03/19/2014 [facility] Diastolic (mm Hg) 60 03/19/2014 [facility] Systolic (mm Hg) 104 12/17/2013 [facility] Height 66 12/17/2013 [facility] Diastolic (mm Hg) 60 12/17/2013 [facility] Respitory Rate 20 06/29/2011 [facility] Heart Rate 76 06/29/2011 [facility] Temperature Oral (F) 96.0 F 06/29/2011 [facility] Diastolic (mm Hg) 81 06/29/2011 [facility] Systolic (mm Hg) 146 06/29/2011 [facility] Respitory Rate 18 06/29/2011 [facility] Systolic (mm Hg) 113 06/29/2011 [facility] Diastolic (mm Hg) 72 06/29/2011 [facility] Temperature Oral (F) 96.7 F 06/29/2011 [facility] Heart Rate 78 06/29/2011 [facility] Diastolic (mm Hg) 70 06/29/2011 [facility] Heart Rate 90 06/29/2011 [facility] Temperature Oral (F) 98.0 F 06/29/2011 [facility] Respitory Rate 20 06/29/2011 [facility] Systolic (mm Hg) 137 06/29/2011 [facility] Weight 94.545 06/26/2011 [facility] Height 170.18 cm 06/26/2011 [facility] Encounters Location Location Encounter Encounter Reason Attending ADM DC Status Source Details Type Number For Provider Date Date Visit Not Sent YOANDY [id number] CHRONIC PING WING 06/28 06/29 Active 0 SYSTOLIC /2011 [facility] 428.22 ANGINA 413.9. [facility] Outpt Diag [id number] [place] 11/13 11/14 [facility] Outpatient Services 0 [facility] Cardiovasc STRESS TEST 1xc64w8d-c1 12/17 12/17 [facility] 17-481b-88e /2013 [facility] 18d Cardiovasc STRESS TEST [id number] 12/17 12/17 [facility] bf-464d-983 /2013 [facility][id number] [facility] bb9 Cardiovasc STRESS TEST 372x8g63-e0 12/17 12/17 [facility] c9-27e9-8oy /2013 [facility][id number] [facility] c2a Cardiovasc STRESS TEST 0g9la6p5-v5 12/17 12/17 [facility] 1e-441c-b90 /2013 [facility]-z30f89o36 [facility] c19 Cardiovasc STRESS TEST [id number] 12/17 12/17 [facility] dd-49fb-a4e /2013 [id number] [facility] 790 Cardiovasc STRESS TEST 02k5dqet-4c 12/17 12/17 [facility] 57-26b2-nr0 /2013 [facility] c[facility]vf94wi9gr [facility] eaf Cardiovasc STRESS TEST 9f8vs1s1-9y 12/17 12/17 [facility] a2-5wn2-r61 /2013 [facility] 9-03508k399 [facility] 8e8 Cardiovasc STRESS TEST [id number] 12/17 12/17 [facility] 33-1h44-wwq /2013 [facility] 9-1u95bir38 [facility] 8f0 Cardiovasc STRESS TEST o44g1exm-vy 12/17 12/17 [facility] c8-90w6-842 /2013 [facility] e[facility]0pw31n0bh [facility] a47 Cardiovasc STRESS TEST kr0x653c-v1 12/17 12/17 [facility] f5-40ef-8e /2013 [facility]-5c6x2u0i8 [facility] 188 Cardiovasc Established 8w3658n8-4h 12/17 12/17 [facility] Patient c6-4247-8ae /2013 [facility] b[facility]eszi821gp [facility] 523 Cardiovasc Established z616t7i5-83 12/17 12/17 [facility] Patient 3b-2yl6-u91 /2013 [facility] 4-34y152v93 [facility] 6c1 Cardiovasc Established f233k644-em 12/17 12/17 [facility] Patient 4a-2ck4-z1y /2013 [facility] c-8740ryu08 [facility] c3c Cardiovasc Established 8369p234-97 12/17 12/17 [facility] Patient f1-4817-bfa /2013 [facility] e-6n8j40sx5 [facility] 31e Cardiovasc Established i0log559-2p 12/17 12/17 [facility] Patient 2b-3s75-522 /2013 [facility]-4600goa36 [facility] dc5 Cardiovasc Established 8k6oy930-04 12/17 12/17 [facility] Patient 63-95h8-396 /2013 [facility]u8ewy497n [facility] 99c Cardiovasc Established st84o474-p9 12/17 12/17 [facility] Patient 89-4867-853 [facility] c-[id number] [facility] acf Cardiovasc Established [id number]-g9 12/17 12/17 [facility] Patient 0a-44fd-b7 [facility] a-4s887v093 [facility] 2ca Cardiovasc Established 40zxg1l5-nb 12/17 12/17 [facility] Patient f0-4996-bbc [facility] a-p9v25e15u [facility] e92 Cardiovasc Established 9246769l-8m 12/17 12/17 [facility] Patient 20-4590-8a6 [facility] 5-3997rz2md [facility] 4e4 Cardiovasc Established 4826f86b-zi 03/19 03/19 [facility] Patient c9-49fa-9af [facility] [id number] [facility] 99e Cardiovasc Established y66n23j3-71 03/19 03/19 [facility] Patient b5-2u6a-361 [facility]-86q001195 [facility] e95 Cardiovasc Established 30n8x431-2h 03/19 03/19 [facility] Patient e1-22s3-h3l [facility]18z68j8mx [facility] 096 Cardiovasc Established 59a0922z-u6 03/19 03/19 [facility] Patient ea-425a-99b /2013 [facility] e-4zf9ojoe3 [facility] 365 Cardiovasc Established 2xmir175-33 03/19 03/19 [facility] Patient 84-2f67-588 /2013 [facility]-8d3u5nk4q [facility] 0e7 Cardiovasc Established 6c5r52oz-58 03/19 03/19 [facility] Patient b8-4644-860 /2013 [facility] e-[id number] [facility] 1d9 Cardiovasc Established 7f05l10r-3x 03/19 03/19 [facility] Patient 3e-2n21-83y /2013 [facility]-5873bfecc [facility] 94f Cardiovasc Established lk17p195-z7 03/19 03/19 [facility] Patient 2a-4897-a60 [facility]7473f549g [facility] a8b Cardiovasc Established rn0191y7-7t 03/19 03/19 [facility] Patient a6-46cc-8a6 [facility] c-qoyo8y4fc [facility] 33a Cardiovasc Established 57n9d3q5-on 03/19 03/19 [facility] Patient 80-6ul8-e8y /2013 [facility] 7[facility][id number] [facility] c27 Cardiovasc Established 2i1yp89y-o8 06/25 06/25 [facility] Patient 2b-495e-9b9 /2014 [facility]-21e22vzkm [facility] a45 Cardiovasc Established f5702q20-95 06/25 06/25 [facility] Patient 27-6d65-92o /2014 [facility] [id number] [facility] [place] Cardiovasc Established t3pc9sd8-y3 06/25 06/25 [facility] Patient 3f-5l20-40u /2014 [facility] 4-4lw1k5g89 [facility] e6e Cardiovasc Established f0o89gq5-cf 06/25 06/25 [facility] Patient 38-7c0c-h2n /2014 [facility] c-8th6p1u6w [facility] 92b Cardiovasc Established s805p01n-qp 06/25 06/25 [facility] Patient 27-7l0r-162 /2014 [facility] 1-f9e4j3849 [facility] 1fb Cardiovasc Established 547lw397-78 06/25 06/25 [facility] Patient b4-4161-977 /2014 [facility] [id number] [facility] 5fc Cardiovasc Established 315iih25-81 06/25 06/25 [facility] Patient 87-4a66-l29 /2014 [facility] e-q2867n24y [facility] bf1 Cardiovasc [place] 943fi172-d7 08/06 08/06 [facility] ular refill 81-95u1-i57 /2014 [facility]-ljn646315 [facility] a59 Cardiovasc [place] r2s9402q-65 08/06 08/06 Cardiova ular refill f7-4965-882 /2014 [facility] f-x368v9rqu [facility] 2ae Cardiovasc [place] 3996axp4-3u 08/06 08/06 Cardiova ular refill 09-400c-874 /2014 [facility] 2-558yel0o1 [facility] 751 Cardiovasc [place] iy98x9p0-1s 08/06 08/06 Cardiova ular refill 28-2d3j-6xq /2014 [facility] d-9lgx4fn04 [facility] 3d8 Cardiovasc [place] 8p97l339-99 08/06 08/06 Cardiova ular refill f7-34r7-516 /2014 [facility] f-[id number] [facility] 2ee Cardiovasc [place] j73i7w88-3a 08/06 08/06 Cardiova ular refill 97-463c-8f0 /2014 [facility] a-[id number] [facility] 472 Cardiovasc Unknown [id number] 08/18 08/18 Cardi[facility] ular b0-5md8-8hi /2014 [facility] 1-8m615e7qc [facility] d59 Cardiovasc Unknown [id number] 08/18 08/18 Cardiova ular 87-4089-b16 /2014 [facility] 9-q1bp6x059 [facility] a62 Cardiovasc Unknown [id number] 08/18 08/18 Cardiova ular 53-4bcf-b56 /2014 [facility] b-[id number] [facility] 242 Cardiovasc Unknown [id number] 08/18 08/18 Cardiova ular 60-42ba-9e5 /2014 [facility] b-99q4en7b3 [facility] a07 Cardiovasc Unknown [id number] 08/18 08/18 [facility] ular c3-4109-a23 /2014 [facility] e-[id number] [facility] 85e Cardiovasc Unknown [id number] 08/18 08/18 Cardiova ular 1c-2c53-a3p /2014 [facility] f-fnnpb53p7 [facility] [place] Cardiovasc chest pain. 4314r011-4i 10/07 10/07 Cardi[facility] ular 10/06 7e-4aee-8d3 /2014 [facility] 7-5c4u4b369 [facility] 12d Cardiovasc chest pain. 7j4iol63-o8 10/07 10/07 [facility] 10/06 9c-24t3-81h /2014 [facility] d-[id number] [facility] 40e Cardiovasc chest pain. ckq86jxd-1x 10/07 10/07 [facility] 10/06 0b-4419-829 /2014 [facility] a-i7r9o6fvk [facility] cc8 Cardiovasc chest pain. 458benp9-0i 10/07 10/07 Cardi[facility] ular 10/06 a2-93g0-a2n /2014 [facility] 4-h3m5u7945 [facility] e95 Cardiovasc chest pain. g1j7k2u0-18 10/07 10/07 [facility] 10/06 33-4083-959 /2014 [facility] a-o1k4pu0rs [facility] d6e Cardiovasc chest pain. z883cl9u-24 10/07 10/07 [facility] 10/06 77-6u3y-70x /2014 [facility]58686d1vf [facility] 512 Cardiovasc Established 7j5c7o3m-i8 01/18 01/18 Cardiova ular Patient 41-46c7-i87 /2014 [facility] b-zi55f94e8 [facility] e4e Cardiovasc Established [id number] 01/18 01/18 Cardiova ular Patient 88-4305-97e /2014 [facility] a-dmci99dyz [facility] 57a Cardiovasc Established [id number] 01/18 01/18 Cardiova ular Patient c3-6zg1-i9b /2014 [facility] [id number] [facility] 09c Cardiovasc Established 0qx96486-56 01/18 01/18 Cardiova ular Patient c0-4dde-bcf /2014 [facility] a-5o6c3j679 [facility] ea8 Cardiovasc Established [id number]-n7 01/18 01/18 Cardiova ular Patient 6c-470f-80b /2014 [facility] 8-6ej12tg50 [facility] b26 Cardiovasc Established 117xk022-l2 01/18 01/18 Cardiova ular Patient b6-41ae-98a /2014 [facility] 3-89n2ksh47 [facility] 338 Cardiovasc possible 55381o57-77 05/11 05/11 Cardi[facility] ular heart b7-7fe7-w15 /2014 [facility] attack [id number] [facility] 24b Cardiovasc possible 6162uh9q-36 05/11 05/11 Cardi[facility] ular heart fb-4182-830 /2014 [facility] attack 3-83e328s09 [facility] 4a0 Cardiovasc possible 55287ou4-79 05/11 05/11 [facility] ular heart 37-4717-94b /2014 [facility] attack 0-1ae10u803 [facility] 39d Cardiovasc possible t19g976v-hs 05/11 05/11 [facility] heart 33-42af-a79 /2014 [facility] attack c-398qa2d4h [facility] ad0 Cardiovasc possible 53i38084-d2 05/11 05/11 [facility] heart 87-4156-9e6 /2014 [facility] attack 8-6703ge297 [facility] 6cc Cardiovasc possible [id number]-cp 05/11 05/11 Cardiova ular heart fb-479c-ac9 /2014 [facility] attack e-u2240is67 [facility] af7 Cardiovasc Established 86joz9sj-81 05/12 05/12 Cardiova ular Patient a5-8yr1-03r /2014 [facility] 6-7rwau05d8 [facility] 5a7 Cardiovasc Established s7306lr2-3i 05/12 05/12 Cardiova ular Patient 18-4fda-9fe /2014 [facility] [id number] [facility] 97a Cardiovasc Established [id number] 05/12 05/12 Cardiova ular Patient a3-451e-8cd /2014 [facility] 3-250a891kd [facility] 0da Cardiovasc Established yyd03d9d-4q 05/12 05/12 Cardiova ular Patient d2-0o68-c9s /2014 [facility] 8-4omaz969n [facility] 3a7 Cardiovasc Established oq710a33-d1 05/12 05/12 Cardiova ular Patient a0-4ebb-9b8 /2014 [facility] d-[id number] [facility] a0a Cardiovasc Established 3a003f9z-qt 05/12 05/12 Cardiova ular Patient 1f-8t3o-xx0 /2014 [facility] [id number] [facility] 1ea [facility] Inpatient [id number] [facility] 05/12 05/17 Harley 1 [facility] [id number] [facility] 05/17 05/22 [facility] 1 Atashband /2014 [facility] Cardiovasc Pt in 2e53nh6r-53 05/18 05/18 Cardiova ular [facility] 8e-432a-864 /2014 [facility] 05/18 d-[id number] [facility] d79 Cardiovasc Pt in [id number]-ma 05/18 05/18 Cardiova ular [facility] 9f-6by4-00m /2014 [facility] 05/18 2-8j3745k2l [facility] e58 Cardiovasc Pt in 934i12j4-96 05/18 05/18 Cardiova ular [facility] b3-9w94-9o6 /2014 [facility] 05/18 1-123j2694m [facility] 87e Cardiovasc Pt in 61m67c68-96 05/18 05/18 Cardiova ular [facility] d0-4770-ac3 /2014 [facility] 05/18 c-k3v2z1wdh [facility] e6c Cardiovasc [place] dx673xk7-cg 10/18 10/18 Cardiova ular [facility] fe-4yp7-6zx /2015 [facility] 3-b8d0bo0t9 [facility] 6b3 Cardiovasc [place] xm39v9r0-6t 10/18 10/18 Cardiova ular [facility] 28-4ml3-06p /2015 [facility] [id number] [facility] 9b9 Cardiovasc [place] 50b832a7-69 10/18 10/18 Cardi[facility] f9-6y68-l3l /2015 [facility] a-q5705wsy6 [facility] b98 Cardiovasc chest pain 7155430r-16 12/27 12/27 Cardiova ular 2a-7f8b-m99 /2015 [facility] c-1x70p59vt [facility] 5ea Cardiovasc chest pain 572l6o2c-43 12/27 12/27 Cardiova ular c9-8g09-062 /2015 [facility] 4-9i3q0c8h4 [facility] 536 [facility] [id number] [place] 12/27 12/29 Har[place] 2 Ajelabi /2015 [facility] Cardiovasc Established 1698gy60-1c 04/10 04/10 Cardiova ular Patient 5d-4bbd-87d /2015 [facility] e-0785d64k2 [facility] bbf [facility] [id number] Janeth 11/02 11/03 Har[place] 7 Jagdeep /2016 [facility] [id number] Shahzad 05/30 05/30 Har[place] 3 Lee [facility] [id number] Vanda 08/06 08/06 Cj Souza 4 Nick /2017 [facility] Procedures Procedure Code Date Perfomer Comments Source CABG x 2 - [id number] [facility] Coronary artery bypass grafts x 2 Excision of [id number] [facility] gallbladder CABG x 2 - [id number] [facility] artery [facility] bypass grafts x 2 Excision of [id number] [facility] Angioplasty [id number] [facility] Angioplasty [id number] [facility] CABG x 2 - [id number] [facility] Coronary artery [place] bypass grafts x 2 Excision of [id number] The gallbladder [place]
--- OUTSIDE RECORDS SUMMARY | 2017-12-11 21:02 | XMS REPORT | CCD ---
:1935 Author Organization [facility] Care Team Providers Name Role Phone Jessica Sanches Referring Provider Allergies, Adverse Reactions, Alerts Substance Reaction Status NKDA Active Problem List Condition Effective Dates Status Heart failure Active Medications Medication Instructions Start Date End Date Status cefazolin 1 gm, Route: IVPB, PRE 06/28/2011 06/28/2011 Discontinued OP, Start date: 06/28/11 5:00:00, Duration: 12 hr, Stop date: 06/28/11 16:59:00 cefazolin 1 gm, Route: IVPB, PRE 06/28/2011 06/28/2011 Discontinued OP, Start date: 06/28/11 5:00:00, Duration: 12 hr, Stop date: 06/28/11 16:59:00 acetaminophen 500 mg, 1 tab, Route: 06/28/2011 06/29/2011 Discontinued PO, Drug form: TAB, Q4H, PRN Pain, Start date: 06/28/11 11:28:00, Duration: 30 day, Stop date: 07/28/11 11:27:00 acetaminophen-hydrocodone 2 tab, Route: PO, Drug 06/28/2011 06/29/2011 Discontinued 325 mg-5 mg oral tablet Form: TAB, Q4H, PRN Pain, Start date: 06/28/11 11:28:00, Duration: 30 day, Stop date: 07/28/11 11:27:00 acetaminophen-hydrocodone 1 tab, Route: PO, Drug 06/28/2011 06/29/2011 Discontinued 325 mg-5 mg oral tablet Form: TAB, Q4H, PRN Pain, Start date: 06/28/11 11:28:00, Duration: 30 day, Stop date: 07/28/11 11:27:00 morphine Sulfate 2 mg, 1 mL, Route: IV, 06/28/2011 06/29/2011 Discontinued Drug form: INJ, Q2H, PRN Severe Pain, Start date: 06/28/11 11:28:00, Duration: 30 day, Stop date: 07/28/11 11:27:00 Sodium Chloride 0.45% IV 1,000 mL, Rate: 75 06/28/2011 06/29/2011 Completed 1,000 mL ml/hr, Infuse over: 13.3 hr, Route: IV, Total Volume: 1,000, Start date: 06/28/11 5:00:00, Duration: 24 hr, Stop date: 06/29/11 4:59:00 cefazolin 2 gm, Route: IVPB, Q8H, 06/28/2011 06/29/2011 Completed Start date: 06/28/11 16:00:00, Duration: 2 doses or times, Stop date: 06/29/11 0:00:00 Sodium Chloride 0.9% IV 10 mL, Route: IVP, PRN, 06/28/2011 06/29/2011 Discontinued Line Flush, Start date: 06/28/11 11:26:00, Duration: 30 day, Stop date: 07/28/11 11:25:00 Sodium Chloride 0.9% IV 10 mL, Route: IVP, Start 06/28/2011 06/29/2011 Discontinued date: 06/28/11 16:00:00, Duration: 30 day, Stop date: 07/28/11 8:00:00 lisinopril 10 mg, 1 tab, Route: PO, 06/28/2011 06/29/2011 Discontinued Drug form: TAB, Daily, Start date: 06/28/11 17:00:00, Duration: 30 day, Stop date: 07/28/11 9:00:00 glimepiride 2 mg, 1 tab, Route: PO, 06/28/2011 06/29/2011 Discontinued Drug form: TAB, BID, Start date: 06/28/11 17:00:00, Duration: 30 day, Stop date: 07/28/11 9:00:00 Lasix 20 mg, 1 tab, Route: PO, 06/28/2011 06/29/2011 Discontinued Drug form: TAB, BID, Start date: 06/28/11 17:00:00, Duration: 30 day, Stop date: 07/28/11 9:00:00 spironolactone 25 mg, 1 tab, Route: PO, 06/28/2011 06/29/2011 Discontinued Drug form: TAB, Daily, Start date: 06/28/11 17:00:00, Duration: 30 day, Stop date: 07/28/11 9:00:00 Flomax 0.4 mg, 1 cap, Route: 06/28/2011 06/29/2011 Discontinued PO, Drug form: CAP, Daily, Start date: 06/28/11 17:00:00, Duration: 30 day, Stop date: 07/28/11 9:00:00 Coreg 25 mg, 1 tab, Route: PO, 06/28/2011 06/29/2011 Discontinued Drug form: TAB, Q12H, Start date: 06/28/11 15:00:00, Duration: 30 day, Stop date: 07/28/11 9:00:00 Ranexa 1,000 mg, 2 tab, Route: 06/28/2011 06/29/2011 Discontinued PO, Drug form: TAB, Q12H, Start date: 06/28/11 21:00:00, Duration: 30 day, Stop date: 07/28/11 9:00:00 nitroglycerin 0.4 mg 0.4 mg, 1 tab, Route: 06/28/2011 06/29/2011 Discontinued sublingual tablet SL, Drug form: TAB, PRN, PRN Chest Pain, Start date: 06/28/11 13:33:00, Duration: 30 day, Stop date: 07/28/11 13:32:00 multivitamin 1 tab, Route: PO, Drug 06/28/2011 06/29/2011 Discontinued Form: TAB, [id number], Start date: 06/28/11 6:00:00, Duration: 4 doses or times, Stop date: 06/29/11 18:00:00 Lipitor 10 mg, 1 tab, Route: PO, 06/28/2011 06/29/2011 Discontinued Drug form: TAB, Bedtime, Start date: 06/28/11 21:00:00, Duration: 30 day, Stop date: 07/27/11 21:00:00 aspirin 81 mg tablet, 81 mg, 1 tab, Route: PO, 06/28/2011 06/28/2011 Deleted enteric coated Drug form: ECTAB, Daily, Start date: 06/28/11 17:00:00, Duration: 30 day, Stop date: 07/28/11 9:00:00 acetaminophen-tramadol 325 1 tab, Route: PO, Drug 06/28/2011 06/29/2011 Discontinued mg-37.5 mg oral tablet Form: TAB, Daily, Start date: 06/28/11 17:00:00, Duration: 30 day, Stop date: 07/28/11 9:00:00 lidocaine-prilocaine 1 appl, Route: TOP, 06/28/2011 06/29/2011 Discontinued topical ONCALL, Drug form: CRM, Start date: 06/28/11 5:00:00, Duration: 1 doses or times Valium 5 mg, 1 tab, Route: PO, 06/28/2011 06/28/2011 Completed Drug form: TAB, ONCALL, Start date: 06/28/11 5:00:00, Duration: 1 doses or times Benadryl 50 mg, 2 tab, Route: PO, 06/28/2011 06/28/2011 Completed Drug form: TAB, ONCALL, Start date: 06/28/11 5:00:00, Duration: 1 doses or times Xanax 0.25 mg, 1 tab, Route: 06/28/2011 06/29/2011 Discontinued PO, Drug form: TAB, Q8H, PRN Anxiety, Start date: 06/28/11 11:28:00, Duration: 30 day, Stop date: 07/28/11 11:27:00 Zofran 4 mg, 2 mL, Route: IVP, 06/28/2011 06/29/2011 Discontinued Drug form: INJ, Q8H, PRN Nausea & Vomiting, Start date: 06/28/11 11:28:00, Duration: 30 day, Stop date: 07/28/11 11:27:00 Restoril 15 mg, 1 cap, Route: PO, 06/28/2011 06/29/2011 Discontinued Drug form: CAP, Bedtime, PRN Insomnia, Start date: 06/28/11 11:28:00, Duration: 30 day, Stop date: 07/28/11 11:27:00 acetaminophen 1,000 mg, 2 tab, Route: 06/28/2011 06/29/2011 Discontinued PO, Drug form: TAB, Q4H, PRN Pain, Start date: 06/28/11 11:28:00, Duration: 30 day, Stop date: 07/28/11 11:27:00 Vital Signs Most recent to oldest 1 2 3 [Reference Range]: Height 170.18 cm (06/26/2011 12:13:00) Temperature Oral 96.0 DegF 96.7 DegF 98.0 DegF [96.4-99.1 DegF] *LOW* (06/29/2011 00:20:00) (06/28/2011 20:58:00) (06/29/2011 07:00:00) Systolic Blood Pressure 146 mmHg 113 mmHg 137 mmHg [90-140 mmHg] *HI* (06/29/2011 00:20:00) (06/28/2011 20:58:00) (06/29/2011 07:00:00) Diastolic Blood Pressure 81 mmHg 72 mmHg 70 mmHg [60-90 mmHg] (06/29/2011 07:00:00) (06/29/2011 00:20:00) (06/28/2011 20:58: 00) Respiratory Rate [14-20 20 BRMIN 18 BRMIN 20 BRMIN BRMIN] (06/29/2011 07:00:00) (06/29/2011 00:20:00) (06/28/2011 20:58:00) Peripheral Pulse Rate 76 bpm 78 bpm 90 bpm [60-100 bpm] (06/29/2011 07:00:00) (06/29/2011 00:20:00) (06/28/2011 20:58: 00) Weight 94.545 kg (06/26/2011 12:13:00) Results BEDSIDE GLUCOSE TESTING Most recent to oldest 1 2 3 [Reference Range]: Gluc POC Lifscn [65-110 148 mg/dL 1 180 mg/dL 2 248 mg/dL 3 mg/dL] *HI* *HI* *HI* (06/29/2011 07:47:00) (06/28/2011 20:27:00) (06/28/2011 15:56:00) 1Interpretive Data: Upper Reportable Limit: 200 mg/dL.2Interpretive Data: Upper Reportable Limit: 200 mg/dL.3Interpretive Data: Upper Reportable Limit: 200 mg/dL.CHEMISTRY Most recent to oldest [Reference Range]: 1 2 3 Sodium Lvl [135-145 mEq/L] 140 mEq/L (06/26/2011 12:10:00) Potassium Lvl [3.5-5.1 mEq/L] 4.6 mEq/L (06/26/2011 12:10:00) Chloride Lvl [95-109 mEq/L] 103 mEq/L (06/26/2011 12:10:00) CO2 [24-32 mEq/L] 27 mEq/L (06/26/2011 12:10:00) AGAP [10.0-20.0 mEq/L] 14.6 mEq/L (06/26/2011 12:10:00) Creatinine Lvl [0.5-1.4 mg/dL] 2.1 mg/dL *HI* (06/26/2011 12:10:00) BUN [7-22 mg/dL] 36 mg/dL *HI* (06/26/2011 12:10:00) Glucose Lvl 175 mg/dL 4 *NA* (06/26/2011 12:10:00) Calcium Lvl [8.5-10.5 mg/dL] 9.1 mg/dL (06/26/2011 12:10:00) 4Interpretive Data: Reference Ranges : 0 - 7 days : 41 - 90 mg/dL7 days - 150 yrs : 70 - 99 mg/dL (fasting), based on the clinical recommendations of the [place] [employer].HEMATOLOGY Most recent to oldest [Reference Range]: 1 2 3 WBC [3.7-10.4 K/CMM] 4.2 K/CMM (06/26/2011 12:10:00) RBC [4.70-6.10 M/CMM] 3.32 M/CMM 5 *LOW* (06/26/2011 12:10:00) Hgb [14.0-18.0 g/dL] 11.4 g/dL 6 *LOW* (06/26/2011 12:10:00) Hct [42.0-54.0 %] 32.2 % 7 *LOW* (06/26/2011 12:10:00) MCV [80.0-94.0 fL] 97.1 fL 8 *HI* (06/26/2011 12:10:00) MCH [27.0-31.0 pg] 34.5 pg *HI* (06/26/2011 12:10:00) MCHC [32.0-36.0 g/dL] 35.5 g/dL (06/26/2011 12:10:00) RDW [11.5-14.5 %] 13.4 % (06/26/2011 12:10:00) Platelet [133-450 K/CMM] 127 K/CMM *LOW* (06/26/2011 12:10:00) MPV [7.4-10.4 fL] 10.0 fL (06/26/2011 12:10:00) Segs [45.0-75.0 %] 66.6 % (06/26/2011 12:10:00) Lymphocytes [20.0-40.0 %] 23.4 % (06/26/2011 12:10:00) Monocytes [2.0-12.0 %] 7.7 % (06/26/2011 12:10:00) Eosinophils [0.0-4.0 %] 1.8 % (06/26/2011 12:10:00) Basophils [0.0-1.0 %] 0.5 % (06/26/2011 12:10:00) Segs-Bands # [1.5-8.1 K/CMM] 2.8 K/CMM (06/26/2011 12:10:00) Lymphocytes # [1.0-5.5 K/CMM] 1.0 K/CMM (06/26/2011 12:10:00) Monocytes # [0.0-0.8 K/CMM] 0.3 K/CMM (06/26/2011 12:10:00) Eosinophils # [0.0-0.5 K/CMM] 0.1 K/CMM (06/26/2011 12:10:00) Basophils # [0.0-0.2 K/CMM] 0.0 K/CMM (06/26/2011 12:10:00) PT [12.0-14.7 seconds] 13.7 seconds (06/26/2011 12:10:00) INR [0.85-1.17] 1.05 9 (06/26/2011 12:10:00) 5Result Comment: Reference range changed due to change in patient's gender at 08:43:59. Normal Low changed from not defined to 4.70. Normal High changed from not defined to 6.10. Result flag changed from not applied to L.6Result Comment: Reference range changed due to change in patient's gender at 08:43:59. Normal Low changed from not defined to 14.0. Normal High changed from not defined to 18.0. Result flag changed from not applied to L.7Result Comment: Reference range changed due to change in patient's gender at 08:43:59. Normal Low changed from not defined to 42.0. Normal High changed from not defined to 54.0. Result flag changed from not applied to L.8Result Comment: Reference range changed due to change in patient's gender at 08:43:59. Normal Low changed from not defined to 80.0. Normal High changed from not defined to 94.0. Result flag changed from not applied to H.9Interpretive Data: RECOMMENDED RANGES FOR PROTIME INR: 2.0-3.0 for most medical and surgical thromboembolic states. 2.5-3.5 for artificial heart valves and recurrent embolism.INR SHOULD BE USED ONLY FOR PATIENTS ON STABLE ANTICOAGULANT THERAPY.
--- OUTSIDE RECORDS SUMMARY | 2017-12-11 21:02 | XMS REPORT | Summary of Care ---
:[address] [facility] Address [address] [place], [place] [address]- Encounter HQ Jonnier_tom(FIN) [id number] Date(s): 05/12/15 - 05/16/15 [id number] [place] [address]- Discharge Disposition: Acute Care Attending Physician: Mitchell Bautista MD Admitting Physician: Mitchell Bautista MD Vital Signs Most recent to oldest 1 2 3 [Reference Range]: Height 170.18 cm 167.64 cm 167.64 cm (05/12/15 6:48 PM) (05/12/15 5:10 PM) (05/12/15 2:25 PM) Current Weight 85.2 kg 83.2 kg 86.5 kg (05/16/15 3:29 AM) (05/15/15 4:40 AM) (05/14/15 4:02 AM) Temperature Oral [96.4-99.1 97.7 DegF 97.6 DegF 97.5 DegF DegF] (05/16/15 8:00 PM) (05/16/15 4:33 PM) (05/16/15 11:28 AM) Blood Pressure [90-140/60-90 144/62 mmHg 135/60 mmHg 142/67 mmHg mmHg] *HI* (05/16/15 4:33 PM) *HI* (05/16/15 8:00 PM) (05/16/15 11:28 AM) Respiratory Rate [14-20 BRMIN] 18 BRMIN 18 BRMIN 18 BRMIN (05/16/15 8:00 PM) (05/16/15 4:33 PM) (05/16/15 11:28 AM) Peripheral Pulse Rate [60-100 71 bpm 56 bpm 61 bpm bpm] (05/16/15 8:00 PM) *LOW* (05/16/15 11:28 AM) (05/16/15 4:33 PM) Weight 83.2 kg 84.659 kg 81.364 kg (05/12/15 6:48 PM) (05/12/15 5:10 PM) (05/12/15 2:25 PM) Body Mass Index 28.73 m2 30.12 m2 28.95 m2 (05/12/15 6:48 PM) (05/12/15 5:10 PM) (05/12/15 2:25 PM) Problem List Condition Effective Dates Status Health Status Informant CAD (coronary atherosclerotic Active disease)(Confirmed) Heart failure(Confirmed) Active HTN (hypertension)(Confirmed) Resolved CO (myocardial Resolved infarction)(Confirmed) Allergies, Adverse Reactions, Alerts Substance Reaction Severity Status NKDA Active Medications Aldactone 25 mg oral tablet 25 mg=1 tab, PO, BID, # 60 tab, 0 Refill(s) Start Date: 05/12/15 Status: Suspendedaspirin 325 mg, Route: CHEW, Drug form: CHEWTAB, ONCE, Dosing Weight 81.364, kg, Priority: STAT, Start date:05/12/15 16:20:00, Stop date: 05/12/15 16:20:00 Start Date: 05/12/15 Stop Date: 05/12/15 Status: Discontinuedaspirin 324 mg, 4 tab, Route: PO, Drug form: CHEWTAB, ONCE, Dosing Weight 81.364, kg, Priority: STAT, Start date: 05/12/15 14:36:00, Stop date: 05/12/15 14:36:00 Notes: Take with food. Start Date: 05/12/15 Stop Date: 05/12/15 Status: Completedaspirin 325 mg tablet 325 mg, Route: PO, Drug form: TAB, Daily, Dosing Weight 84.659, kg, Priority: STAT, Start date: 05/12/15 17:33:00, Duration: 30 day, Stop date: 06/11/15 9:00: 00 Start Date: 05/12/15 Stop Date: 05/12/15 Status: Deletedaspirin 325 mg tablet 325 mg, 1 tab, Route: PO, Drug form: TAB, Daily, Start date: 05/13/15 9:00:00, Duration: 30 day, Stop date: 06/11/15 9:00:00 Notes: Take with food. Start Date: 05/13/15 Stop Date: 05/16/15 Status: Discontinuedaspirin 81 mg tablet, chewable 324 mg, Route: PO, Drug form: CHEWTAB, ONCE, Dosing Weight 81.364, kg, Priority : STAT, Start date: 05/12/15 16:22:00, Stop date: 05/12/15 16:22:00 Start Date: 05/12/15 Stop Date: 05/12/15 Status: CompletedCoreg 6.25 mg, 2 tab, Route: PO, Drug form: TAB, BID, Dosing Weight 84.659, kg, Start date: 05/12/15 21:00:00, Duration: 30 day, Stop date: 06/11/15 9:00:00 Notes: Give with food. (Same As: Coreg) Start Date: 05/12/15 Stop Date: 05/16/15 Status: DiscontinuedCoreg 3.125 mg, Route: PO, Drug form: TAB, Q12H, Dosing Weight 83.2, kg, hold sbp< 100, Start date: 05/13/15 21:00:00, Duration: 30 day, Stop date: 06/12/15 9:00: 00 Start Date: 05/13/15 Stop Date: 05/13/15 Status: CanceledCoreg 6.25 mg oral tablet 6.25 mg=1 tab, PO, BID, # 60 tab, 0 Refill(s) Start Date: 05/12/15 Status: SuspendedCrestor 20 mg, Route: PO, Drug form: TAB, Bedtime, Dosing Weight 83.2, kg, Start date: 05/13/15 21:00:00, Duration: 30 day, Stop date: 06/11/15 21:00:00 Start Date: 05/13/15 Stop Date: 05/13/15 Status: DeletedCrestor 10 mg, Route: PO, Bedtime, Dosing Weight 84.659, kg, Start date: 05/12/15 21:00: 00, Duration: 30 day, Stop date: 06/10/15 21:00:00 Start Date: 05/12/15 Stop Date: 05/12/15 Status: DeletedCrestor 20 mg oral tablet 20 mg=1 tab, PO, Bedtime, # 30 tab, 0 Refill(s) Start Date: 05/12/15 Stop Date: 06/11/15 Status: SuspendedDextrose 50% Syringe 25 gm, 50 mL, Route: IVP, Drug Form: INJ, Dosing Weight 83.2, kg, PRN, PRN Blood Glucose Results, Start date: 05/12/15 20:52:00, Duration: 30 day, Stop date: 06/11/15 20:51:00 Start Date: 05/12/15 Stop Date: 05/14/15 Status: DiscontinuedDextrose 50% Syringe 12.5 gm, 25 mL, Route: IVP, Drug Form: INJ, Dosing Weight 83.2, kg, PRN, PRN Blood Glucose Results, Start date: 05/12/15 20:52:00, Duration: 30 day, Stop date: 06/11/15 20:51:00 Start Date: 05/12/15 Stop Date: 05/14/15 Status: DiscontinuedDextrose 50% Syringe 25 gm, 50 mL, Route: IVP, Drug Form: INJ, Dosing Weight 83.2, kg, PRN, PRN Blood Glucose Results, Start date: 05/14/15 11:54:00, Duration: 30 day, Stop date: 06/13/15 11:53:00 Start Date: 05/14/15 Stop Date: 05/16/15 Status: DiscontinuedDextrose 50% Syringe 12.5 gm, 25 mL, Route: IVP, Drug Form: INJ, Dosing Weight 83.2, kg, PRN, PRN Blood Glucose Results, Start date: 05/14/15 11:54:00, Duration: 30 day, Stop date: 06/13/15 11:53:00 Start Date: 05/14/15 Stop Date: 05/16/15 Status: DiscontinuedFlomax 0.4 mg, 1 cap, Route: PO, Drug form: CAP, Daily, Dosing Weight 84.659, kg, Start date: 05/13/15 9:00:00, Duration: 30 day, Stop date: 06/11/15 9:00:00 Notes: (Same As: Flomax) "Do Not Crush" Start Date: 05/13/15 Stop Date: 05/16/15 Status: Discontinuedfurosemide 40 mg oral tablet 40 mg=1 tab, PO, Daily, # 30 tab, 0 Refill(s) Start Date: 05/12/15 Status: Suspendedglucagon 1 mg, Route: IM, Drug form: PDR/INJ, PRN, Dosing Weight 83.2, kg, PRN Blood Glucose Results, Start date: 05/12/15 20:52:00, Duration: 30 day, Stop date: 07/26 20:51:00 Start Date: 05/12/15 Stop Date: 05/14/15 Status: Discontinuedglucagon 1 mg, Route: IM, Drug form: PDR/INJ, PRN, Dosing Weight 83.2, kg, PRN Blood Glucose Results, Start date: 05/14/15 11:54:00, Duration: 30 day, Stop date: 09/23 11:53:00 Start Date: 05/14/15 Stop Date: 05/16/15 Status: DiscontinuedGlumetza 500 mg oral tablet, extended release 500 mg=1 tab, PO, BID, with evening meal, # 90 tab, 0 Refill(s) Start Date: 05/12/15 Status: SuspendedHeparin - one time bolus for ACS 4,000 unit, 4 mL, Route: IV, Drug form: INJ, ONCE, Dosing Weight 81.364, kg, Priority: STAT, Start date: 05/12/15 16:57:00, Stop date: 05/12/15 16:57:00 Start Date: 05/12/15 Stop Date: 05/12/15 Status: CompletedHeparin - one time bolus for ACS 4,000 unit, 4 mL, Route: IV, Drug form: INJ, ONCE, Dosing Weight 83.2, kg, Start date: 05/13/15 14:00:00, Stop date: 05/13/15 14:00:00 Start Date: 05/13/15 Stop Date: 05/13/15 Status: CompletedHeparin 30 unit/kg Bolus (Heparin Dosing Weight) Route: IVP, PRN, 2,200 unit, 2.2 mL, Drug form: INJ, PRN, Heparin Protocol, Start date: 05/12/15 16:57:00 Stop date: 06/11/15 16:56:00, 30 day Start Date: 05/12/15 Stop Date: 05/16/15 Status: DiscontinuedHeparin 60 unit/kg Bolus (Heparin Dosing Weight) Route: IVP, PRN, 4,300 unit, 4.3 mL, Drug form: INJ, PRN, Heparin Protocol, Start date: 05/12/15 16:57:00 Stop date: 06/11/15 16:56:00, 30 day Start Date: 05/12/15 Stop Date: 05/16/15 Status: Discontinuedheparin additive 25,000 unit [12 unit/kg/hr] + Premix Diluent Dextrose 5% 500 mL 500 mL, Rate: 17.31 ml/hr, Infuse over: 28.9 hr, Route: IV, Dosing Weight 72.14 kg, Total Volume: 500 mL, Start date: 05/12/15 16:57:00, Duration: 30 day, Stop date: 06/11/15 16:56:00 Start Date: 05/12/15 Stop Date: 05/16/15 Status: Discontinuedinsulin aspart 6 unit, 0.06 mL, Route: SUB-Q, Drug form: SOLN, Sliding Scale, Dosing Weight 83.2, kg, PRN Blood Glucose Results, Start date: 05/12/15 20:52:00, Duration: 30 day, Stop date: 06/11/15 20:51:00 Notes: Roll in palms of hands gently; Do not shake vigorously. (Same as: NovoLOG)"single patient use only" Stable for 28 days at room temperature.Expires in days from Date Start Date: 05/12/15 Stop Date: 05/14/15 Status: Discontinuedinsulin aspart 10 unit, 0.1 mL, Route: SUB-Q, Drug form: SOLN, Sliding Scale, Dosing Weight 83.2, kg, PRN Blood Glucose Results, Start date: 05/12/15 20:52:00, Duration: 30 day, Stop date: 06/11/15 20:51:00 Notes: Roll in palms of hands gently; Do not shake vigorously. (Same as: NovoLOG)"single patient use only" Stable for 28 days at room temperature.Expires in days from Date Start Date: 05/12/15 Stop Date: 05/14/15 Status: Discontinuedinsulin aspart 8 unit, 0.08 mL, Route: SUB-Q, Drug form: SOLN, Sliding Scale, Dosing Weight 83.2, kg, PRN Blood Glucose Results, Start date: 05/12/15 20:52:00, Duration: 30 day, Stop date: 06/11/15 20:51:00 Notes: Roll in palms of hands gently; Do not shake vigorously. (Same as: NovoLOG)"single patient use only" Stable for 28 days at room temperature.Expires in days from Date Start Date: 05/12/15 Stop Date: 05/14/15 Status: Discontinuedinsulin aspart 4 unit, 0.04 mL, Route: SUB-Q, Drug form: SOLN, Sliding Scale, Dosing Weight 83.2, kg, PRN Blood Glucose Results, Start date: 05/12/15 20:52:00, Duration: 30 day, Stop date: 06/11/15 20:51:00 Notes: Roll in palms of hands gently; Do not shake vigorously. (Same as: NovoLOG)"single patient use only" Stable for 28 days at room temperature.Expires in days from Date Start Date: 05/12/15 Stop Date: 05/14/15 Status: Discontinuedinsulin aspart 2 unit, 0.02 mL, Route: SUB-Q, Drug form: SOLN, Sliding Scale, Dosing Weight 83.2, kg, PRN Blood Glucose Results, Start date: 05/12/15 20:52:00, Duration: 30 day, Stop date: 06/11/15 20:51:00 Notes: Roll in palms of hands gently; Do not shake vigorously. (Same as: NovoLOG)"single patient use only" Stable for 28 days at room temperature.Expires in days from Date Start Date: 05/12/15 Stop Date: 05/14/15 Status: Discontinuedinsulin aspart 10 unit, 0.1 mL, Route: SUB-Q, Drug form: SOLN, TID-Before Meals, Dosing Weight 83.2, kg, PRN Blood Glucose Results, Start date: 05/14/15 11:54:00, Duration: 30 day, Stop date: 06/13/15 11:53:00 Notes: Roll in palms of hands gently; Do not shake vigorously. (Same as: NovoLOG)"single patient use only" Stable for 28 days at room temperature.Expires in days from Date Start Date: 05/14/15 Stop Date: 05/16/15 Status: Discontinuedinsulin aspart 8 unit, 0.08 mL, Route: SUB-Q, Drug form: SOLN, TID-Before Meals, Dosing Weight 83.2, kg, PRN Blood Glucose Results, Start date: 05/14/15 11:54:00, Duration: 30 day, Stop date: 06/13/15 11:53:00 Notes: Roll in palms of hands gently; Do not shake vigorously. (Same as: NovoLOG)"single patient use only" Stable for 28 days at room temperature.Expires in days from Date Start Date: 05/14/15 Stop Date: 05/16/15 Status: Discontinuedinsulin aspart 2 unit, 0.02 mL, Route: SUB-Q, Drug form: SOLN, Bedtime, Dosing Weight 83.2, kg , PRN Blood Glucose Results, Start date: 05/14/15 11:54:00, Duration: 30 day, Stop date: 06/13/15 11:53:00 Notes: Roll in palms of hands gently; Do not shake vigorously. (Same as: NovoLOG)"single patient use only" Stable for 28 days at room temperature.Expires in days from Date Start Date: 05/14/15 Stop Date: 05/16/15 Status: Discontinuedinsulin aspart 1 unit, 0.01 mL, Route: SUB-Q, Drug form: SOLN, Bedtime, Dosing Weight 83.2, kg , PRN Blood Glucose Results, Start date: 05/14/15 11:54:00, Duration: 30 day, Stop date: 06/13/15 11:53:00 Notes: Roll in palms of hands gently; Do not shake vigorously. (Same as: NovoLOG)"single patient use only" Stable for 28 days at room temperature.Expires in days from Date Start Date: 05/14/15 Stop Date: 05/16/15 Status: Discontinuedinsulin aspart 4 unit, 0.04 mL, Route: SUB-Q, Drug form: SOLN, Bedtime, Dosing Weight 83.2, kg , PRN Blood Glucose Results, Start date: 05/14/15 11:54:00, Duration: 30 day, Stop date: 06/13/15 11:53:00 Notes: Roll in palms of hands gently; Do not shake vigorously. (Same as: NovoLOG)"single patient use only" Stable for 28 days at room temperature.Expires in days from Date Start Date: 05/14/15 Stop Date: 05/16/15 Status: Discontinuedinsulin aspart 3 unit, 0.03 mL, Route: SUB-Q, Drug form: SOLN, Bedtime, Dosing Weight 83.2, kg , PRN Blood Glucose Results, Start date: 05/14/15 11:54:00, Duration: 30 day, Stop date: 06/13/15 11:53:00 Notes: Roll in palms of hands gently; Do not shake vigorously. (Same as: NovoLOG)"single patient use only" Stable for 28 days at room temperature.Expires in days from Date Start Date: 05/14/15 Stop Date: 05/16/15 Status: Discontinuedinsulin aspart 2 unit, 0.02 mL, Route: SUB-Q, Drug form: SOLN, TID-Before Meals, Dosing Weight 83.2, kg, PRN Blood Glucose Results, Start date: 05/14/15 11:54:00, Duration: 30 day, Stop date: 06/13/15 11:53:00 Notes: Roll in palms of hands gently; Do not shake vigorously. (Same as: NovoLOG)"single patient use only" Stable for 28 days at room temperature.Expires in days from Date Start Date: 05/14/15 Stop Date: 05/16/15 Status: Discontinuedinsulin aspart 6 unit, 0.06 mL, Route: SUB-Q, Drug form: SOLN, TID-Before Meals, Dosing Weight 83.2, kg, PRN Blood Glucose Results, Start date: 05/14/15 11:54:00, Duration: 30 day, Stop date: 06/13/15 11:53:00 Notes: Roll in palms of hands gently; Do not shake vigorously. (Same as: NovoLOG)"single patient use only" Stable for 28 days at room temperature.Expires in days from Date Start Date: 05/14/15 Stop Date: 05/16/15 Status: Discontinuedinsulin aspart 4 unit, 0.04 mL, Route: SUB-Q, Drug form: SOLN, TID-Before Meals, Dosing Weight 83.2, kg, PRN Blood Glucose Results, Start date: 05/14/15 11:54:00, Duration: 30 day, Stop date: 06/13/15 11:53:00 Notes: Roll in palms of hands gently; Do not shake vigorously. (Same as: NovoLOG)"single patient use only" Stable for 28 days at room temperature.Expires in days from Date Start Date: 05/14/15 Stop Date: 05/16/15 Status: DiscontinuedLasix 20 mg, 2 mL, Route: IV, Drug form: INJ, ONCE, Dosing Weight 83.2, kg, Start date : 05/13/15 12:00:00,Stop date: 05/13/15 12:00:00 Notes: (Same as: Lasix) Start Date: 05/13/15 Stop Date: 05/13/15 Status: Completedlevothyroxine 112 microgram, 1 tab, Route: PO, Drug form: TAB, Q630AM, Dosing Weight 84.659, kg, Start date: 05/13/15 6:30:00, Duration: 30 day, Stop date: 06/11/15 6:30:00 Notes: Take 1 hour before or 2 hours after meal; Enteral feeds may interefere with the absorption ofthis medication.(Same as:Levothroid) Start Date: 05/13/15 Stop Date: 05/16/15 Status: DiscontinuedLipitor 20 mg, 2 tab, Route: PO, Drug form: TAB, Bedtime, Start date: 05/12/15 21:00:00 , Duration: 30 day, Stop date: 06/10/15 21:00:00 Notes: (Same As: Lipitor) Start Date: 05/12/15 Stop Date: 05/13/15 Status: DiscontinuedLipitor 40 mg, 1 tab, Route: PO, Drug form: TAB, Bedtime, Start date: 05/13/15 21:00:00 , Duration: 30 day, Stop date: 06/11/15 21:00:00 Notes: (Same as: Lipitor) Start Date: 05/13/15 Stop Date: 05/16/15 Status: Discontinuedlosartan 50 mg oral tablet 50 mg=1 tab, PO, Daily, # 30 tab, 0 Refill(s) Start Date: 05/12/15 Status: Suspendedmagnesium sulfate 2 gm in Water 50 ml 2 gm, 50 mL, Route: IVPB, Drug form: INJ, ONCE, Dosing Weight 83.2, kg, Start date: 05/14/15 8:24:00, Duration: 2 hr, Stop date: 05/14/15 8:24:00 Start Date: 05/14/15 Stop Date: 05/14/15 Status: Completedmorphine Sulfate 2 mg, 1 mL, Route: IVP, Drug form: INJ, Q4H, Dosing Weight 83.2, kg, PRN Pain Score 7-10, Start date: 05/13/15 10:19:00, Duration: 30 day, Stop date: 10:18:00 Notes: (Same as:MORPhine Sulfate) Start Date: 05/13/15 Stop Date: 05/16/15 Status: Discontinuednitroglycerin 0.4 mg, Transdermal, PRN, 0 Refill(s) Start Date: 05/12/15 Status: Suspendednitroglycerin SL Tab 0.4 mg, 1 tab, Route: SL, Drug form: TAB, Q5Min, Dosing Weight 83.2, kg, PRN Chest Pain, Start date:05/12/15 20:37:00, Duration: 3 doses or times, Stop date : Limited # of times Notes: (Same as:Nitroquick, Nitrostat)"Do Not Crush" Sublingual tablet Start Date: 05/12/15 Stop Date: 05/16/15 Status: DiscontinuedNS 1,000 mL 1,000 mL, Rate: 75 ml/hr, Infuse over: 13.3 hr, Route: IV, Dosing Weight 84.659 kg, Total Volume: 1,000, Priority: NOW, Start date: 05/12/15 18:03:00, Duration : 30 day, Stop date: 06/11/15 18:02:00 Start Date: 05/12/15 Stop Date: 05/16/15 Status: DiscontinuedPlavix 75 mg, 1 tab, Route: PO, Drug form: TAB, Daily, Dosing Weight 83.2, kg, Start date: 05/16/15 9:00:00, Duration: 30 day, Stop date: 06/14/15 9:00:00 Notes: (Same As: Plavix) Start Date: 05/16/15 Stop Date: 05/16/15 Status: DiscontinuedPlavix 600 mg, 2 tab, Route: PO, Drug form: TAB, ONCE, Dosing Weight 83.2, kg, Priority : NOW, Start date: 05/15/15 10:37:00, Duration: 1 doses or times, Stop date: 11/22 10:37:00 Notes: ( Same as: Plavix) Start Date: 05/15/15 Stop Date: 05/15/15 Status: CompletedPrilosec 20 mg oral delayed release capsule 20 mg=1 cap, PO, Bedtime, # 30 cap, 0 Refill(s) Start Date: 05/12/15 Status: SuspendedRanexa 1,000 mg, 2 tab, Route: PO, Drug form: TAB, BID, Dosing Weight 84.659, kg, Start date: 05/12/15 22:00:00, Duration: 30 day, Stop date: 06/11/15 21:00:00 Notes: Same as Ranexa"Do Not Crush" Start Date: 05/12/15 Stop Date: 05/16/15 Status: DiscontinuedRanexa 1000 mg oral tablet, extended release 1,000 mg=1 tab, PO, BID, # 60 tab, 0 Refill(s) Start Date: 05/12/15 Status: SuspendedSaline Flush 0.9% 10 mL, Route: IVP, Drug Form: INJ, Dosing Weight 81.364, kg, PRN, PRN Line Flush , Start date: 05/12/15 14:36:00, Duration: 30 day, Stop date: 06/11/15 14:35:00 Notes: (Same as: BD Posiflush) Start Date: 05/12/15 Stop Date: 05/16/15 Status: DiscontinuedSodium Chloride 0.9% (Bolus) IV 250 mL, 250 ml/hr, Infuse Over: 1 hr, Route: IV, 250, Drug form: INJ, ONCE, Dosing Weight 83.2 kg, Start date: 05/13/15 9:58:00, Duration: 1 doses or times , Stop date: 05/13/15 9:58:00 Start Date: 05/13/15 Stop Date: 05/13/15 Status: CompletedSodium Chloride 0.9% IV 750 mL 750 mL, Rate: 75 ml/hr, Infuse over: 10 hr, Route: IV, Dosing Weight 83.2 kg, Total Volume: 750, Start date: 05/13/15 9:58:00, Duration: 1 doses or times, Stop date: 05/13/15 19:57:00 Start Date: 05/13/15 Stop Date: 05/13/15 Status: CompletedSynthroid 200 mcg (0.2 mg) oral tablet 200 microgram=1 tab, PO, Daily, # 30 tab, 0 Refill(s) Start Date: 05/12/15 Status: Suspendedtamsulosin 0.4 mg oral capsule 0.4 mg=1 cap, PO, Daily, # 30 cap, 0 Refill(s) Start Date: 05/12/15 Status: Suspendedtrazodone 50 mg, 1 tab, Route: PO, Drug form: TAB, Bedtime, Dosing Weight 83.2, kg, PRN Sleep, Start date: 05/12/15 20:43:00, Duration: 30 day, Stop date: 06/11/15 20: 42:00, .. Notes: (Same As: Julián) Start Date: 05/12/15 Stop Date: 05/16/15 Status: Discontinued Results ELECTROLYTES Most recent to oldest 1 2 3 [Reference Range]: Sodium Lvl [135-145 mEq/L] 141 mEq/L 142 mEq/L 141 mEq/L (05/15/15 4:30 AM) (05/14/15 6:20 AM) (05/13/15 2:07 AM) Potassium Lvl [3.5-5.1 3.9 mEq/L 3.9 mEq/L 4.0 mEq/L mEq/L] (05/15/15 4:30 AM) (05/14/15 6:20 AM) (05/13/15 2:07 AM) Chloride Lvl [95-109 mEq/L] 109 mEq/L 108 mEq/L 108 mEq/L (05/15/15 4:30 AM) (05/14/15 6:20 AM) (05/13/15 2:07 AM) CO2 [24-32 mEq/L] 27 mEq/L 26 mEq/L 28 mEq/L (05/15/15 4:30 AM) (05/14/15 6:20 AM) (05/13/15 2:07 AM) AGAP [10.0-20.0 mEq/L] 8.9 mEq/L 11.9 mEq/L 9.0 mEq/L *LOW* (05/14/15 6:20 AM) *LOW* (05/15/15 4:30 AM) (05/13/15 2:07 AM) CHEM PANEL Most recent to oldest 1 2 3 [Reference Range]: Creatinine Lvl [0.50-1.40 1.15 mg/dL 1.29 mg/dL 1.36 mg/dL mg/dL] (05/15/15 4:30 AM) (05/14/15 6:20 AM) (05/13/15 2:07 AM) eGFR 59 mL/min/1.73m2 1 52 mL/min/1.73m2 2 48 mL/min/1.73m2 3 *NA* *NA* *NA* (05/15/15 4:30 AM) (05/14/15 6:20 AM) (05/13/15 2:07 AM) BUN [7-22 mg/dL] 14 mg/dL 20 mg/dL 29 mg/dL (05/15/15 4:30 AM) (05/14/15 6:20 AM) *HI* (05/13/15 2:07 AM) B/C Ratio [6-25] 18 (05/12/15 2:56 PM) Glucose Lvl [70-99 mg/dL] 117 mg/dL 111 mg/dL 127 mg/dL *HI* *HI* *HI* (05/15/15 4:30 AM) (05/14/15 6:20 AM) (05/13/15 2:07 AM) Total Protein [6.4-8.4 g/dL] 7.6 g/dL (05/12/15 2:56 PM) Albumin Lvl [3.5-5.0 g/dL] 3.9 g/dL (05/12/15 2:56 PM) Globulin [2.0-4.0 g/dL] 3.7 g/dL (05/12/15 2:56 PM) A/G Ratio [0.7-1.6] 1.1 (05/12/15 2:56 PM) Calcium Lvl [8.5-10.5 mg/dL] 8.5 mg/dL 8.2 mg/dL 8.8 mg/dL (05/15/15 4:30 AM) *LOW* (05/13/15 2:07 AM) (05/14/15 6:20 AM) Phosphorus [2.5-4.5 mg/dL] 3.0 mg/dL 3.2 mg/dL 3.0 mg/dL (05/15/15 4:30 AM) (05/14/15 6:20 AM) (05/13/15 2:07 AM) Magnesium Lvl [1.8-2.4 1.8 mg/dL 1.7 mg/dL 1.8 mg/dL mg/dL] (05/15/15 4:30 AM) *LOW* (05/13/15 2:07 AM) (05/14/15 6:20 AM) ALT [0-65 unit/L] 34 unit/L (05/12/15 2:56 PM) AST [0-37 unit/L] 33 unit/L (05/12/15 2:56 PM) Alk Phos [39-136 unit/L] 89 unit/L (05/12/15 2:56 PM) Bili Total [0.2-1.3 mg/dL] 0.9 mg/dL (05/12/15 2:56 PM) 1Result Comment: The eGFR is calculated using the CKD-EPI formula. In most young , healthy individualsthe eGFR will be >90 mL/min/1.73m2. The eGFR declines with age. An eGFR of 60-89 may be normal in some populations, particularly the elderly, for whom the CKD-EPI formula has not been extensively validated. Use of the eGFR is not recommended in the following populations: Individuals with unstable creatinine concentrations, including patients and those with serious co-morbid conditions. Patients with extremes in muscle mass or diet. The data above are obtained from the National Kidney Disease Education Program ( NKDEP) which additionally recommends that when the eGFR is used in patients with extremes of body mass index for purposesof drug dosing, the eGFR should be multiplied by the estimated BMI.2Result Comment: The eGFR is calculated using the CKD-EPI formula. In most young, healthy individualsthe eGFR will be >90 mL/ min/1.73m2. The eGFR declines with age. An eGFR of 60-89 may be normal in some populations, particularly the elderly, for whom the CKD-EPI formula has not been extensively validated. Use of the eGFR is not recommended in the following populations: Individuals with unstable creatinine concentrations, including patients and those with serious co-morbid conditions. Patients with extremes in muscle mass or diet. The data above are obtained from the National Kid[employer] Disease Education Program ( NKDEP) which additionally recommends that when the eGFR is used in patients with extremes of body mass index for purposesof drug dosing, the eGFR should be multiplied by the estimated BMI.3Result Comment: The eGFR is calculated using the CKD-EPI formula. In most young, healthy individualsthe eGFR will be >90 mL/ min/1.73m2. The eGFR declines with age. An eGFR of 60-89 may be normal in some populations, particularly the elderly, for whom the CKD-EPI formula has not been extensively validated. Use of the eGFR is not recommended in the following populations: Individuals with unstable creatinine concentrations, including patients and those with serious co-morbid conditions. Patients with extremes in muscle mass or diet. The data above are obtained from the National Kidney Disease Education Program ( NKDEP) which additionally recommends that when the eGFR is used in patients with extremes of body mass index for purposesof drug dosing, the eGFR should be multiplied by the estimated BMI.CARDIAC ENZYMES Most recent to oldest 1 2 3 [Reference Range]: Total CK [12-191 unit/L] 74 unit/L 85 unit/L 112 unit/L (05/13/15 2:07 AM) (05/12/15 9:24 PM) (05/12/15 2:56 PM) CK MB [0.5-3.6 ng/mL] 3.3 ng/mL 4.5 ng/mL (05/12/15 9:24 PM) *HI* (05/12/15 2:56 PM) CK MB Index [0.0-2.5] 3.9 4.0 *HI* *HI* (05/12/15 9:24 PM) (05/12/15 2:56 PM) Troponin-I [0.00-0.40 ng/mL] 0.69 ng/mL 1 0.69 ng/mL 2 1.25 ng/mL 3 *CRIT* *CRIT* *CRIT* (05/13/15 2:07 AM) (05/12/15 9:24 PM) (05/12/15 2:56 PM) BNP [<=100 pg/mL] 408 pg/mL *HI* (05/12/15 2:56 PM) 1Result Comment: Critical Result(s) called to Taz Hebert RN at 05/13/2015 03:08 by shyann. Read back OK.2Result Comment: Critical Result(s) called to Taz Hebert RN at 05/12/2015 22:11 by [email or web address]. Read back OK.3Result Comment: Critical Result(s) called to jose alfredo shearer at _05/12/2015 15:38 bybz_. Read back OK.LIPIDS Most recent to oldest [Reference Range]: 1 2 3 CHD Risk [4.00-7.30] 5.11 (05/13/15 2:07 AM) Chol [<=199 mg/dL] 143 mg/dL (05/13/15 2:07 AM) Trig [<=149 mg/dL] 302 mg/dL *HI* (05/13/15 2:07 AM) HDL [>=61 mg/dL] 28 mg/dL *LOW* (05/13/15 2:07 AM) LDL (Calculated) [<=99 mg/dL] 55 mg/dL (05/13/15 2:07 AM) VLDL 60 *NA* (05/13/15 2:07 AM) URINE AND STOOL Most recent to oldest [Reference Range]: 1 2 3 UA Turbidity [Clear] Clear (05/12/15 2:56 PM) UA Color [Yellow] Yellow *NA* (05/12/15 2:56 PM) UA pH [5.0-8.0] 5.0 (05/12/15 2:56 PM) UA Spec Grav [<=1.030] 1.010 (05/12/15 2:56 PM) UA Glucose [Negative mg/dL] Negative mg/dL (05/12/15 2:56 PM) UA Blood [Negative] Negative (05/12/15 2:56 PM) UA Ketones [Negative mg/dL] Negative mg/dL *NA* (05/12/15 2:56 PM) UA Protein [Negative mg/dL] Negative mg/dL (05/12/15 2:56 PM) UA Urobilinogen [0.1-1.0 EU/dL] 0.2 EU/dL (05/12/15 2:56 PM) UA Bili [Negative] Negative *NA* (05/12/15 2:56 PM) UA Leuk Est [Negative] Negative (05/12/15 2:56 PM) UA Nitrite [Negative] Negative (05/12/15 2:56 PM) UA WBC [None Seen /HPF] 0-2 /HPF (05/12/15 2:56 PM) UA RBC [0-2] None Seen (05/12/15 2:56 PM) UA Bacteria [None Seen] None Seen (05/12/15 2:56 PM) UA Sq Epi [Few] None Seen (05/12/15 2:56 PM) HEMATOLOGY Most recent to oldest 1 2 3 [Reference Range]: WBC [3.7-10.4 K/CMM] 4.7 K/CMM 5.1 K/CMM 4.4 K/CMM (05/15/15 4:30 AM) (05/14/15 6:20 AM) (05/13/15 2:07 AM) RBC [4.70-6.10 M/CMM] 3.30 M/CMM 3.27 M/CMM 3.33 M/CMM *LOW* *LOW* *LOW* (05/15/15 4:30 AM) (05/14/15 6:20 AM) (05/13/15 2:07 AM) Hgb [14.0-18.0 g/dL] 11.0 g/dL 10.9 g/dL 11.3 g/dL *LOW* *LOW* *LOW* (05/15/15 4:30 AM) (05/14/15 6:20 AM) (05/13/15 2:07 AM) Hct [42.0-54.0 %] 32.9 % 32.7 % 33.1 % *LOW* *LOW* *LOW* (05/15/15 4:30 AM) (05/14/15 6:20 AM) (05/13/15 2:07 AM) MCV [80.0-94.0 fL] 99.6 fL 99.9 fL 99.4 fL *HI* *HI* *HI* (05/15/15 4:30 AM) (05/14/15 6:20 AM) (05/13/15 2:07 AM) MCH [27.0-31.0 pg] 33.4 pg 33.2 pg 34.0 pg *HI* *HI* *HI* (05/15/15 4:30 AM) (05/14/15 6:20 AM) (05/13/15 2:07 AM) MCHC [32.0-36.0 g/dL] 33.6 g/dL 33.2 g/dL 34.2 g/dL (05/15/15 4:30 AM) (05/14/15 6:20 AM) (05/13/15 2:07 AM) RDW [11.5-14.5 %] 13.4 % 13.2 % 13.4 % (05/15/15 4:30 AM) (05/14/15 6:20 AM) (05/13/15 2:07 AM) Platelet [133-450 K/CMM] 104 K/CMM 102 K/CMM 114 K/CMM *LOW* *LOW* *LOW* (05/15/15 4:30 AM) (05/14/15 6:20 AM) (05/13/15 2:07 AM) MPV [7.4-10.4 fL] 9.5 fL 9.3 fL 10.0 fL (05/15/15 4:30 AM) (05/14/15 6:20 AM) (05/13/15 2:07 AM) Segs [45.0-75.0 %] 57.5 % 58.7 % 60.2 % (05/15/15 4:30 AM) (05/14/15 6:20 AM) (05/13/15 2:07 AM) Lymphocytes [20.0-40.0 %] 25.4 % 26.6 % 27.6 % (05/15/15 4:30 AM) (05/14/15 6:20 AM) (05/13/15 2:07 AM) Monocytes [2.0-12.0 %] 11.6 % 10.1 % 8.6 % (05/15/15 4:30 AM) (05/14/15 6:20 AM) (05/13/15 2:07 AM) Eosinophils [0.0-4.0 %] 5.0 % 4.1 % 3.2 % *HI* *HI* (05/13/15 2:07 AM) (05/15/15 4:30 AM) (05/14/15 6:20 AM) Basophils [0.0-1.0 %] 0.5 % 0.5 % 0.4 % (05/15/15 4:30 AM) (05/14/15 6:20 AM) (05/13/15 2:07 AM) Segs-Bands # [1.5-8.1 K/CMM] 2.7 K/CMM 3.0 K/CMM 2.7 K/CMM (05/15/15 4:30 AM) (05/14/15 6:20 AM) (05/13/15 2:07 AM) Lymphocytes # [1.0-5.5 1.2 K/CMM 1.4 K/CMM 1.2 K/CMM K/CMM] (05/15/15 4:30 AM) (05/14/15 6:20 AM) (05/13/15 2:07 AM) Monocytes # [0.0-0.8 K/CMM] 0.5 K/CMM 0.5 K/CMM 0.4 K/CMM (05/15/15 4:30 AM) (05/14/15 6:20 AM) (05/13/15 2:07 AM) Eosinophils # [0.0-0.5 0.2 K/CMM 0.2 K/CMM 0.1 K/CMM K/CMM] (05/15/15 4:30 AM) (05/14/15 6:20 AM) (05/13/15 2:07 AM) Macrocyte [None Seen] 1+ 1+ 1+ *ABN* *ABN* *ABN* (05/15/15 4:30 AM) (05/14/15 6:20 AM) (05/13/15 2:07 AM) PT [12.0-14.7 seconds] 14.9 seconds 13.7 seconds *HI* (05/12/15 2:56 PM) (05/12/15 7:07 PM) INR [0.85-1.17] 1.14 1.02 (05/12/15 7:07 PM) (05/12/15 2:56 PM) PTT [22.9-35.8 seconds] 58.0 seconds 56.4 seconds 55.3 seconds *HI* *HI* *HI* (05/16/15 6:04 AM) (05/15/15 4:30 AM) (05/14/15 2:16 PM) Immunizations No data available for this section Procedures Procedure Date Related Diagnosis Body Site CABG x 2 - Coronary artery bypass grafts x 2 Excision of gallbladder Social History Social History Type Response Alcohol Past Smoking Status Former smoker; Type: Cigarettes; Started at age: 28.0; Stopped at age: 53; Exposure to Tobacco Smoke None; Cigarette Smoking Last 365 Days No; Reg Smoking Cessation Counseling No Assessment and Plan Extracted from: Title: Cardiology Note * Author: Xuan Figueroa MD Date: 05/16/15 Impression and Plan 1. NSTEMI 2. hx CAD s/p CABG : MARIE to LAD with severe dz in anastomosis. occluded SVG x2 3. essential HTN 4. chronic systolic HF s/p ICD 5. ckd 6. [employer] PLAN: - C reviewed. has ostial LCx disease. d/w Dr Valdivia and given he is a [employer] witness he is not a candidate or redo-CABG. viability study wih viable tissue in the LAD, septum and lateral hernández and scar in apex and inferior regions. will transfer to [facility] for high risk PCI of LM into LCx. (if unable to get to [facility] will try [facility] as they also have surgical backup available and able to do high risk pci) - cont heparin dip. - cont bp meds - cont asa and plavix
--- OUTSIDE RECORDS SUMMARY | 2017-12-11 21:02 | XMS REPORT | Summary of Care ---
:1935 Author Encounter [facility] Jonnier_tom(LYNETTE) [id number] Date(s): 11/13/13 - 11/13/13 [facility] Outpatient Imaging [address] Discharge Disposition: Home Physician Attending: Cely Echavarria MD Reason for Visit 592.0 - CALCULUS OF KID Problem List Condition Effective Dates Status Health Status Informant Heart failure(Confirmed) Active Allergies, Adverse Reactions, Alerts Substance Reaction Severity Status NKDA Active Medications No data available for this section Medications Administered During Your Visit No data available for this section Immunizations No data available for this section
--- OUTSIDE RECORDS SUMMARY | 2017-12-11 21:02 | XMS REPORT | Summary of Care ---
:1935 Author Organization [facility] Address [address] [place] [id number] Encounter HQ Encntr_tom(FIN) [id number] Date(s): 05/16/15 - 05/22/[address] Professional Services provided by [facility] [place] [address]- Discharge Disposition: Home Attending Physician: Xuan Figueroa MD Admitting Physician: Xuan Figueroa MD Referring Physician: Cassius Huertas MD Vital Signs Most recent to oldest 1 2 3 [Reference Range]: Height 170.18 cm (05/16/15 11:04 PM) Temperature Oral 98.2 DegF 98.2 DegF 98.0 DegF [96.4-99.1 DegF] (05/21/15 11:09 PM) (05/21/15 4:00 PM) (05/21/15 8:00 AM) Blood Pressure 104/52 mmHg 109/52 mmHg 140/66 mmHg [90-140/60-90 mmHg] (05/22/15 5:00 AM) (05/22/15 1:00 AM) (05/21/15 10:00 PM ) Respiratory Rate [14-20 20 BRMIN 18 BRMIN 18 BRMIN BRMIN] (05/20/15 8:43 AM) (05/20/15 4:35 AM) (05/20/15 12:27 AM) Peripheral Pulse Rate 63 bpm 63 bpm 73 bpm [60-100 bpm] (05/20/15 8:43 AM) (05/20/15 4:35 AM) (05/20/15 12:27 AM) Weight 85 kg (05/16/15 11:04 PM) Body Mass Index 29.35 m2 (05/16/15 11:04 PM) Problem List Condition Effective Dates Status Health Status Informant CAD (coronary atherosclerotic Active disease)(Confirmed) Heart failure(Confirmed) Active HTN (hypertension)(Confirmed) Resolved MA (myocardial Resolved infarction)(Confirmed) Allergies, Adverse Reactions, Alerts Substance Reaction Severity Status NKDA Active Medications Aldactone 25 mg, 1 tab, Route: PO, Drug form: TAB, BID, Dosing Weight 85, kg, Start date: 05/17/15 9:00:00, Duration: 30 day, Stop date: 06/15/15 17:00:00 Notes: (Same As: Aldactone) Start Date: 05/17/15 Stop Date: 05/22/15 Status: Discontinuedaspirin 81 mg, 1 tab, Route: PO, Drug form: ECTAB, Daily, Dosing Weight 85, kg, Start date: 05/17/15 9:00:00, Duration: 30 day, Stop date: 06/15/15 9:00:00 Notes: Do not crush or chew.(Same As: Ecotrin) Start Date: 05/17/15 Stop Date: 05/23/15 Status: Discontinuedaspirin 81 mg tablet, enteric coated 81 mg=1 tab, PO, Daily, 0 Refill(s) Start Date: 05/22/15 Status: Orderedatropine 0.5 mg, 5 mL, Route: IVP, Drug form: INJ, ONCE, Dosing Weight 85, kg, Start date : 05/20/15 18:30:00,Stop date: 05/20/15 18:30:00 Start Date: 05/20/15 Stop Date: 05/20/15 Status: Completedclopidogrel 75 mg oral tablet 75 mg=1 tab, PO, Daily, # 90 tab, 2 Refill(s) Start Date: 05/22/15 Status: OrderedColace 100 mg oral capsule 100 mg, 1 cap, Route: PO, Drug form: CAP, BID, Dosing Weight 85, kg, Start date : 05/17/15 17:00:00, Duration: 30 day, Stop date: 06/16/15 9:00:00 Notes: (Same as: Colace) (Do Not Crush) Start Date: 05/17/15 Stop Date: 05/23/15 Status: DiscontinuedCoreg 6.25 mg, 1 tab, Route: PO, Drug form: TAB, BID, Dosing Weight 85, kg, Start date : 05/17/15 9:00:00, Duration: 30 day, Stop date: 06/15/15 17:00:00 Notes: Give with food. (Same As: Coreg) Start Date: 05/17/15 Stop Date: 05/23/15 Status: DiscontinuedCrestor 20 mg, Route: PO, Drug form: TAB, Bedtime, Dosing Weight 85, kg, Start date: 01/22 21:00:00, Duration: 30 day, Stop date: 06/15/15 21:00:00 Start Date: 05/17/15 Stop Date: 05/17/15 Status: Deleteddocusate 100 mg, Route: PO, Drug form: CAP, Daily, Dosing Weight 85, kg, Priority: NOW, Start date: 05/18/15 16:37:00, Duration: 30 day, Stop date: 06/17/15 9:00:00 Start Date: 05/18/15 Stop Date: 05/18/15 Status: Deletedfurosemide 40 mg oral tablet 40 mg, 1 tab, Route: PO, Drug form: TAB, Daily, Dosing Weight 85, kg, Start date : 05/17/15 9:00:00, Duration: 30 day, Stop date: 06/15/15 9:00:00 Notes: (Same as: Lasix) May cause GI upset. Give with food or milk. Start Date: 05/17/15 Stop Date: 05/23/15 Status: Discontinuedheparin 5,000 unit, 1 mL, Route: SUB-Q, Drug form: INJ, Q8H, Dosing Weight 85, kg, Start date: 05/21/15 16:00:00, Duration: 30 day, Stop date: 06/20/15 8:00:00 Notes: porcine heparin Start Date: 05/21/15 Stop Date: 05/23/15 Status: DiscontinuedHeparin 30 unit/kg Bolus (Heparin Dosing Weight) Route: IVP, PRN, 2,200 unit, 2.2 mL, Drug form: INJ, PRN, Heparin Protocol, Start date: 05/17/15 1:38:00 Stop date: 06/16/15 1:37:00, 30 day Start Date: 05/17/15 Stop Date: 05/23/15 Status: DiscontinuedHeparin 60 unit/kg Bolus (Heparin Dosing Weight) Route: IVP, PRN, 4,400 unit, 4.4 mL, Drug form: INJ, PRN, Heparin Protocol, Start date: 05/17/15 1:38:00 Stop date: 06/16/15 1:37:00, 30 day Start Date: 05/17/15 Stop Date: 05/23/15 Status: Discontinuedheparin additive 25,000 unit [12 unit/kg/hr] + Premix Diluent Dextrose 5% 500 mL 500 mL, Rate: 17.68 ml/hr, Infuse over: 28.3 hr, Route: IVPB, Dosing Weight 73.66 kg, Total Volume: 500 mL, Start date: 05/17/15 1:38:00, Duration: 30 day, Stop date: 06/16/15 1:37:00 Start Date: 05/17/15 Stop Date: 05/20/15 Status: DiscontinuedhydrALAZINE 10 mg, 0.5 mL, Route: IV, Drug form: INJ, ONCE, Dosing Weight 85, kg, Start date : 05/20/15 17:33:00,Stop date: 05/20/15 17:33:00 Notes: (Same as: Apresoline)Push over 5 minutes Start Date: 05/20/15 Stop Date: 05/20/15 Status: Completedlactulose 10 g/15 mL oral syrup 10 gm, 15 mL, Route: PO, Drug Form: SYRP, Dosing Weight 85, kg, QID, PRN as needed for constipation,Start date: 05/19/15 23:08:00, Duration: 30 day, Stop date: 06/18/15 23:07:00 Notes: (Same as:Chronulac) Start Date: 05/19/15 Stop Date: 05/23/15 Status: DiscontinuedLipitor 40 mg, 2 tab, Route: PO, Drug form: TAB, Bedtime, Start date: 05/17/15 21:00:00 , Duration: 30 day, Stop date: 06/15/15 21:00:00 Notes: (Same As: Lipitor) Start Date: 05/17/15 Stop Date: 05/23/15 Status: Discontinuedlosartan 50 mg, 1 tab, Route: PO, Drug form: TAB, Daily, Dosing Weight 85, kg, Start date : 05/17/15 9:00:00, Duration: 30 day, Stop date: 06/15/15 9:00:00 Notes: (Same as: Cochristine) Start Date: 05/17/15 Stop Date: 05/23/15 Status: Discontinuedmagnesium oxide 400 mg, 1 tab, Route: PO, Drug form: TAB, BID, Dosing Weight 85, kg, Priority: NOW, Start date: 05/20/15 18:12:00, Stop date: 05/22/15 17:00:00 Notes: (Same as: Mag-Ox 400)Magnesium oxide [id number] elemental magnesiumDose= ____mg magnesium oxide (___mg elemental magnesium) Start Date: 05/20/15 Stop Date: 05/22/15 Status: Pending Completemagnesium sulfate 2 gm, 50 mL, Route: IVPB, Drug form: INJ, ONCE, Dosing Weight 85, kg, Total dose =2 gm, Start date: 05/20/15 19:03:00, Duration: 1 doses or times, Stop date: 04/24 19:03:00 Start Date: 05/20/15 Stop Date: 05/20/15 Status: CompletedMiraLax 17 gm, 1 pkt, Route: PO, Drug form: PWDR, Daily, Dosing Weight 85, kg, Priority : NOW, Start date: 05/18/15 16:37:00, Duration: 30 day, Stop date: 06/17/15 9:00 :00 Notes: Dissolve in 8 oz of water or juice.(Same as: Miralax) Start Date: 05/18/15 Stop Date: 05/23/15 Status: Discontinuednitroglycerin SL Tab 0.4 mg, 1 tab, Route: SL, Drug form: TAB, Q5Min, Dosing Weight 85, kg, PRN Chest Pain, Start date: 05/20/15 13:14:00, Duration: 3 doses or times, Stop date : Limited # of times Notes: (Same as:Nitroquick, Nitrostat)"Do Not Crush" Sublingual tablet Start Date: 05/20/15 Stop Date: 05/23/15 Status: Discontinuednormal saline 0.9% IV 1,000 mL 1,000 mL, Rate: 75 ml/hr, Infuse over: 13.3 hr, Route: IV, Dosing Weight 85 kg, Total Volume: 1,000,Start date: 05/19/15 23:08:00, Duration: 30 day, Stop date: 06/18/15 23:07:00 Start Date: 05/19/15 Stop Date: 05/20/15 Status: Discontinuednormal saline 0.9% IV 1,000 mL 1,000 mL, Rate: 50 ml/hr, Infuse over: 20 hr, Route: IV, Dosing Weight 85 kg, Total Volume: 1,000, Start date: 05/20/15 19:26:00, Duration: 30 day, Stop date : 06/19/15 19:25:00 Start Date: 05/20/15 Stop Date: 05/22/15 Status: DiscontinuedNS (Bolus) IV 125 mL, 125 ml/hr, Infuse Over: 1 hr, Route: IV, ONCE, Priority: STAT, Dosing Weight 85 kg, Start date: 05/20/15 19:14:00, Duration: 1 doses or times, Stop date: 05/20/15 19:14:00 Start Date: 05/20/15 Stop Date: 05/20/15 Status: CompletedPlavix 75 mg, 1 tab, Route: PO, Drug form: TAB, Daily, Dosing Weight 85, kg, Start date : 05/20/15 9:00:00, Duration: 30 day, Stop date: 06/18/15 9:00:00 Notes: (Same As: Plavix) Start Date: 05/20/15 Stop Date: 05/23/15 Status: DiscontinuedPlavix 300 mg, 1 tab, Route: PO, Drug form: TAB, ONCE, Dosing Weight 85, kg, Priority: Within 4 hours, Start date: 05/19/15 12:39:00, Duration: 1 doses or times, Stop date: 05/19/15 12:39:00 Notes: ( Same as: Plavix) Start Date: 05/19/15 Stop Date: 05/19/15 Status: Completedpotassium chloride 20 mEq, 100 mL, Route: IVPB, Drug form: INJ, ONCE, Dosing Weight 85, kg, Start date: 12/11/15 15:01:00, Stop date: 05/20/15 15:01:00, Central Line Notes: (Same as: KCL) Infuse no faster than 10 mEq/hr if given peripherally. Start Date: 05/20/15 Stop Date: 05/20/15 Status: Completedpotassium chloride 40 mEq, 2 tab, Route: PO, Drug form: ERTAB, Q12H, Dosing Weight 85, kg, Start date: 05/20/15 21:00:00, Stop date: 05/21/15 21:00:00 Notes: (Same as: K-Dur 20)"Do Not Crush" With food and full glass of water Start Date: 05/20/15 Stop Date: 05/21/15 Status: Completedpotassium chloride 20 mEq/15 mL oral liquid 40 mEq, 30 mL, Route: PO, Drug form: LIQ, ONCE, Dosing Weight 85, kg, Start date : 05/20/15 15:01:00,Stop date: 05/20/15 15:01:00 Notes: (Same as: Potassium Chloride) Start Date: 05/20/15 Stop Date: 05/20/15 Status: CompletedPrilosec 20 mg, Route: PO, Drug form: DRC, Bedtime, Dosing Weight 85, kg, Start date: 01/22 21:00:00, Duration: 30 day, Stop date: 06/15/15 21:00:00 Start Date: 05/17/15 Stop Date: 05/17/15 Status: DeletedProtonix 40 mg, 1 tab, Route: PO, Drug form: ECTAB, Before Dinner, Start date: 05/17/15 16:30:00, Duration: 30 day, Stop date: 06/15/15 16:30:00 Notes: Tablet should not be chewed or crushed.(Same as: Protonix) Start Date: 05/17/15 Stop Date: 05/23/15 Status: DiscontinuedRanexa 1,000 mg, 2 tab, Route: PO, Drug form: TAB, BID, Dosing Weight 85, kg, Start date: 05/17/15 9:00:00,Duration: 30 day, Stop date: 06/15/15 17:00:00 Notes: Same as Ranexa"Do Not Crush" Start Date: 05/17/15 Stop Date: 05/23/15 Status: Discontinuedsenna 8.6 mg, 1 tab, Route: PO, Drug Form: TAB, Dosing Weight 85, kg, Daily, NOW, Start date: 05/18/15 16:37:00, Duration: 30 day, Stop date: 06/17/15 9:00:00 Notes: (Same as: Senokot) Start Date: 05/18/15 Stop Date: 05/23/15 Status: DiscontinuedSynthroid 200 microgram, 1 tab, Route: PO, Drug form: TAB, Q630AM, Dosing Weight 85, kg, Start date: 05/17/15 6:30:00, Duration: 30 day, Stop date: 06/15/15 6:30:00 Notes: Take 1 hour before or 2 hours after meal; Enteral feeds may interefere with the absorption ofthis medication. (Same as: Levothroid) Start Date: 05/17/15 Stop Date: 05/23/15 Status: Discontinuedtamsulosin 0.4 mg, 1 cap, Route: PO, Drug form: CAP, After Breakfast, Dosing Weight 85, kg , Start date: 05/17/15 8:30:00, Duration: 30 day, Stop date: 06/15/15 8:30:00 Notes: (Same As: Flomax) "Do Not Crush" Start Date: 05/17/15 Stop Date: 05/23/15 Status: DiscontinuedTylenol 650 mg, 2 tab, Route: PO, Drug form: TAB, Q6H, Dosing Weight 85, kg, PRN Pain Score 1-3, Start date:05/21/15 0:22:00, Duration: 30 day, Stop date: 06/20/15 0: 21:00 Notes: Do not exceed 4 gm/day. (Same as: Tylenol) Start Date: 05/21/15 Stop Date: 05/23/15 Status: Discontinued Results ELECTROLYTES Most recent to oldest 1 2 3 [Reference Range]: Sodium Lvl [135-145 mEq/L] 141 mEq/L 140 mEq/L 145 mEq/L (05/22/15 6:47 AM) (05/21/15 12:13 AM) (05/20/15 1:48 PM) Potassium Lvl [3.5-5.1 4.5 mEq/L 4.1 mEq/L 2.7 mEq/L 1 mEq/L] (05/22/15 6:47 AM) (05/21/15 12:13 AM) *CRIT* (05/20/15 1:48 PM) Chloride Lvl [95-109 mEq/L] 108 mEq/L 109 mEq/L 113 mEq/L (05/22/15 6:47 AM) (05/21/15 12: AM) *HI* (05/20/15 1:48 PM) CO2 [24-32 mEq/L] 26 mEq/L 20 mEq/L 20 mEq/L (05/22/15 6:47 AM) *LOW* *LOW* (05/21/15 12: AM) (05/20/15 1:48 PM) AGAP [10.0-20.0 mEq/L] 11.5 mEq/L 15.1 mEq/L 14.7 mEq/L (05/22/15 6:47 AM) (05/21/15 12:13 AM) (05/20/15 1:48 PM) 1Result Comment: Critical Result(s) called to HANK TANNER at 05/20/2015 14:22 _ by CN_. Read back OK.CHEM PANEL Most recent to oldest 1 2 3 [Reference Range]: Creatinine Lvl [0.50-1.40 1.35 mg/dL 1.09 mg/dL 0.92 mg/dL mg/dL] (05/22/15 6:47 AM) (05/21/15 12:13 AM) (05/20/15 1:48 PM) eGFR 49 mL/min/1.73m2 1 63 mL/min/1.73m2 2 78 mL/min/1.73m2 3 *NA* *NA* *NA* (05/22/15 6:47 AM) (05/21/15 12:13 AM) (05/20/15 1:48 PM) BUN [7-22 mg/dL] 22 mg/dL 17 mg/dL 12 mg/dL (05/22/15 6:47 AM) (05/21/15 12:13 AM) (05/20/15 1:48 PM) B/C Ratio [6-25] 24 04 (05/20/15 9:57 AM) (05/17/15 5:26 AM) Glucose Lvl [70-99 mg/dL] 110 mg/dL 177 mg/dL 108 mg/dL *HI* *HI* *HI* (05/22/15 6:47 AM) (05/21/15 12:13 AM) (05/20/15 1:48 PM) Total Protein [6.4-8.4 6.2 g/dL 5.6 g/dL g/dL] *LOW* *LOW* (05/20/15 9:57 AM) (05/17/15 5:26 AM) Albumin Lvl [3.5-5.0 g/dL] 3.2 g/dL 3.0 g/dL *LOW* *LOW* (05/20/15 9:57 AM) (05/17/15 5:26 AM) Globulin [2.0-4.0 g/dL] 3.0 g/dL 2.6 g/dL (05/20/15 9:57 AM) (05/17/15 5:26 AM) A/G Ratio [0.7-1.6] 1.1 1.2 (05/20/15 9:57 AM) (05/17/15 5:26 AM) Calcium Lvl [8.5-10.5 8.2 mg/dL 8.5 mg/dL 6.5 mg/dL 4 mg/dL] *LOW* (05/21/15 12:13 AM) *CRIT* (05/22/15 6:47 AM) (05/20/15 1:48 PM) Phosphorus [2.5-4.5 mg/dL] 3.7 mg/dL 4.2 mg/dL 3.5 mg/dL (05/22/15 6:47 AM) (05/21/15 12:13 AM) (05/20/15 1:48 PM) Magnesium Lvl [1.8-2.4 2.1 mg/dL 2.2 mg/dL 1.4 mg/dL mg/dL] (05/22/15 6:47 AM) (05/21/15 12:13 AM) *LOW* (05/20/15 1:48 PM) ALT [0-65 unit/L] 30 unit/L 30 unit/L (05/20/15 9:57 AM) (05/17/15 5:26 AM) AST [0-37 unit/L] 20 unit/L 27 unit/L (05/20/15 9:57 AM) (05/17/15 5:26 AM) Alk Phos [39-136 unit/L] 73 unit/L 65 unit/L (05/20/15 9:57 AM) (05/17/15 5:26 AM) Bili Total [0.2-1.3 mg/dL] 0.8 mg/dL 0.8 mg/dL (05/20/15 9:57 AM) (05/17/15 5:26 AM) Lactic Acid Lvl [0.5-2.2 0.7 mMol/L mMol/L] (05/20/15 1:48 PM) 1Result Comment: The eGFR is calculated [...] eGFR should be multiplied by the estimated BMI.4Result Comment: Critical Result(s) called to HANK TANNER at 05/20/2015 14:22_ by CN_. Read back OK.CARDIAC ENZYMES Most recent to oldest [Reference Range]: 1 2 3 Total CK [12-191 unit/L] 34 unit/L (05/21/15 6:02 AM) Troponin-T [0.000-0.100 ng/mL] 0.014 ng/mL (05/21/15 6:02 AM) Troponin-I [0.00-0.40 ng/mL] 0.04 ng/mL (05/21/15 6:02 AM) PARATHYROID PROFILE Most recent to oldest [Reference Range]: 1 2 3 Ca Ion WB [1.05-1.25 mMol/L] 1.09 mMol/L 1.12 mMol/L (05/21/15 12:13 AM) (05/20/15 1:48 PM) Ca Norm WB [1.05-1.25 mMol/L] 1.13 mMol/L 1.09 mMol/L (05/21/15 12:13 AM) (05/20/15 1:48 PM) HEMATOLOGY Most recent to oldest 1 2 3 [Reference Range]: WBC [3.7-10.4 K/CMM] 4.4 K/CMM 4.0 K/CMM 3.6 K/CMM (05/22/15 6:47 AM) (05/21/15 12:13 AM) *LOW* (05/20/15 1:48 PM) RBC [4.70-6.10 M/CMM] 3.14 M/CMM 3.07 M/CMM 2.95 M/CMM *LOW* *LOW* *LOW* (05/22/15 6:47 AM) (05/21/15 12:13 AM) (05/20/15 1:48 PM) Hgb [14.0-18.0 g/dL] 10.1 g/dL 10.2 g/dL 9.8 g/dL *LOW* *LOW* *LOW* (05/22/15 6:47 AM) (05/21/15 12:13 AM) (05/20/15 1:48 PM) Hct [42.0-54.0 %] 31.2 % 30.9 % 29.7 % *LOW* *LOW* *LOW* (05/22/15 6:47 AM) (05/21/15 12: AM) (05/20/15 1:48 PM) MCV [80.0-94.0 fL] 99.6 fL 100.6 fL 100.5 fL *HI* *HI* *HI* (05/22/15 6:47 AM) (05/21/15 12:13 AM) (05/20/15 1:48 PM) MCH [27.0-31.0 pg] 32.3 pg 33.1 pg 33.1 pg *HI* *HI* *HI* (05/22/15 6:47 AM) (05/21/15 12:13 AM) (05/20/15 1:48 PM) MCHC [32.0-36.0 g/dL] 32.5 g/dL 32.9 g/dL 32.9 g/dL (05/22/15 6:47 AM) (05/21/15 12:13 AM) (05/20/15 1:48 PM) RDW [11.5-14.5 %] 13.1 % 13.2 % 13.3 % (05/22/15 6:47 AM) (05/21/15 12:13 AM) (05/20/15 1:48 PM) Platelet [133-450 K/CMM] 127 K/CMM 117 K/CMM 108 K/CMM *LOW* *LOW* *LOW* (05/22/15 6:47 AM) (05/21/15 12:13 AM) (05/20/15 1:48 PM) MPV [7.4-10.4 fL] 9.4 fL 9.6 fL 9.8 fL (05/22/15 6:47 AM) (05/21/15 12:13 AM) (05/20/15 1:48 PM) Segs [45.0-75.0 %] 64.5 % 74.5 % 60.4 % (05/22/15 6:47 AM) (05/21/15 12:13 AM) (05/20/15 1:48 PM) Lymphocytes [20.0-40.0 %] 19.4 % 15.6 % 23.3 % *LOW* *LOW* (05/20/15 1:48 PM) (05/22/15 6:47 AM) (05/21/15 12:13 AM) Monocytes [2.0-12.0 %] 11.7 % 8.8 % 11.3 % (05/22/15 6:47 AM) (05/21/15 12:13 AM) (05/20/15 1:48 PM) Eosinophils [0.0-4.0 %] 3.9 % 0.7 % 4.7 % (05/22/15 6:47 AM) (05/21/15 12:13 AM) *HI* (05/20/15 1:48 PM) Basophils [0.0-1.0 %] 0.5 % 0.4 % 0.3 % (05/22/15 6:47 AM) (05/21/15 12:13 AM) (05/20/15 1:48 PM) Segs-Bands # [1.5-8.1 2.8 K/CMM 3.0 K/CMM 2.2 K/CMM K/CMM] (05/22/15 6:47 AM) (05/21/15 12:13 AM) (05/20/15 1:48 PM) Lymphocytes # [1.0-5.5 0.9 K/CMM 0.6 K/CMM 0.9 K/CMM K/CMM] *LOW* *LOW* *LOW* (05/22/15 6:47 AM) (05/21/15 12:13 AM) (05/20/15 1:48 PM) Monocytes # [0.0-0.8 0.5 K/CMM 0.4 K/CMM 0.4 K/CMM K/CMM] (05/22/15 6:47 AM) (05/21/15 12:13 AM) (05/20/15 1:48 PM) Eosinophils # [0.0-0.5 0.2 K/CMM 0.2 K/CMM 0.2 K/CMM K/CMM] (05/22/15 6:47 AM) (05/20/15 1:48 PM) (05/20/15 4:46 AM) Macrocyte [None Seen] 1+ 1+ *ABN* *ABN* (05/21/15 12:13 AM) (05/20/15 1:48 PM) PT [12.0-14.7 seconds] 14.6 seconds 16.3 seconds 14.1 seconds (05/21/15 12:13 AM) *HI* (05/20/15 4:46 AM) (05/20/15 1:48 PM) INR [0.85-1.17] 1.11 1.28 1.06 (05/21/15 12:13 AM) *HI* (05/20/15 4:46 AM) (05/20/15 1:48 PM) PTT [22.9-35.8 seconds] 30.1 seconds >200 seconds 1 67.4 seconds (05/21/15 12:13 AM) *CRIT* *HI* (05/20/15 1:48 PM) (05/20/15 4:46 AM) 1Result Comment: Critical Result(s) called to Benigno Jennings at 05/20/2015 14:[address] Read back OK. Immunizations No data available for this section [...] No Assessment and Plan Extracted from: Title: Clinical Document Author: Josemanuel Williamshan [employer] Date: 05/22/15 DISCHARGE SUMMARY Date of Admission: 05/16/15 Date of Discharge: 05/22/15 Attending physician: Service: Cardiology Admitting Diagnoses: NSTEMI CAD s/p CABG in the past : MARIE to LAD with severe dz in anastomosis. Severe ostial large LCx, PIN WORKER RCA and LAD. No patent SVGs - Apical and inferior scar on viability study a few days ago. Essential systemic HTN Chronic systolic heart failure with EF 30% s/p AICD placement CKD stage II Discharge Diagnoses: .NSTEMI, currently stable and asymptomatic s/p circ stenting hx CAD s/p CABG : MARIE to LAD with severe dz in anastomosis. Severe ostial large LCx, PIN WORKER RCA and LAD. No patent SVGs - Apical and inferior scar on viability study a few days ago. essential systemic HTN Chronic systolic congestive heart failure with an ejection fraction of about 30%, status post AICD placement. ckd stage II Iatrogenic Right femoral AV fistula secondary to high risk PCI Procedures done during current hospitalization: 05/20/2015: PROCEDURE: Angioplasty and stent of the left circumflex and ramus intermedius coronary arteries. Allergies: [facility] Course Summary: Mr. Ashford is an 79-year-old gentleman with a previous history of coronary artery bypass graft recently had non-ST elevation myocardial infarction. A coronary angiogram at [facility] found t o an occluded right coronary artery, occluded ostial LAD coronary artery and critical stenosis on the proximal left circumflex coronary artery, which supplies also the right coronary artery territory. The left internal mammary artery to the distal LAD had a severe 80% stenosis and had failed attempt to angioplasty and stenting. Because of the unstable coronary syndrome and heart failure with ejecti on fraction of 30% he was referred to [facility] for bypass surgery; however, he was considered too high risk for bypass surgery. Therefore, has been referred to s service to proceed with high risk intervention to the left circumflex coronary artery. On 05/20/15 pt underwent successful angioplasty and stent of the left cirmuflex and ramus intermediate coronary arteries. Post procedure he has done well, and transferred out of CCU to intermediate care where he is ambulating without problem. He will remain on dual anti-platelet therapy, statin , BB, ARB. He will be arranged with cardiac rehab phase II as outpatient with Dr.Marcy Fierro his project surveyor. Of note, pt's echocardiogram reports shows moderately dilated ascending aorta, with measurement of 3.2 cm. given pt s exposure to contrast, C KD and measurement, this will be followed up on as outpatient. Right femoral access site with audible bruit, no thrill noted. with vascular surgery was consulted for preliminary US finding of A V fistula without pseudoaneurysm. there is no surgical intervention indicated and can be treated conservatively. Pt has been cleared pt for discharge. Pt is to follow up with this week and in 3-4 weeks. Pt is hemodynamically stable and verbalizes readiness for discharge. Prescription given for cardiac rehab phase II. Physical Exam: VITAL SIGNS: Temp 97.2 HR 64 BP 104/52 RR 18 SPo2 97% on RA General: Alert and oriented, No acute distress. Eye: Pupils are equal, round and reactive to light. HENT: Normocephalic. Neck: Supple. Respiratory: Lungs are clear to auscultation, Respirations are non-labored. Cardiovascular: Normal rate, Regular rhythm, No murmur, No edema, +S4, bilat femoral site is stable. No hematoma. Right femoral bruit. Gastrointestinal: Soft, Non-tender, Non-distended. Integumentary: Warm. Neurologic: Alert, No focal deficits. Psychiatric: Cooperative. nerves II-XII intact. No focal deficits. Sensation intact. Discharge Teaching: Diet: AHA. Diet instruction given. Drug and food interaction guide given. Follow up: Follow up with Dr. Morenita Fierro this week Follow up with in 3-4 weeks. Discharge medication: See care 4 for medication reconciliation at discharge. Explained to patient/family about action, side effects, and drug interaction Activities: As tolerated (Please see activity restriction). Call MD/911 if: Having chest pain, shortness of breath, weight gain, dizziness , fever, chills, nausea, vomiting, or palpitations. Smoking Cessation Counseling: Patient is not currently smoker. Incision/Wound care: Monitor Right and Left groin access site for bleeding, hematoma and bruising, keep the area clean, dry and intact at all times, do not apply powder or lotions , may shower but no submersion in water. In case of drainage, redness or fever, notifiy MD immediately. Discharge disposition: Home. Patient is hemodynamically stable and verbalizes readiness for discharge. Pt will follow be arranged with cardiac rehab phase II as outpatient. Discharge status: Stable CORE MEASURE: Please see core measure discharge form in chart. This is a Core Measure patient-Yes. Pt carries the diagnosis of chronic systolic heart failure Heart Failure: Echocardiogram 05/17/2015 EF 30 %- MARITO Inhibitors/ARB prescribed : YES Core Measure discharge instruction included: Weight monitoring/activity level/ follow-up appointment/AHA diet/Instructions if symptoms worsening/Medication reconciled. Discharge instruction discussed in detail with patient and family who verbalized understanding. Patient discharge discussed in detail with Dr. Lugo, who is covering for . He agrees with above discharge plan. Светлана Abernathy APRN, MSN, ACNP- Department of Cardiology Pager# [phone] MSO# [id number] Extracted from: Title: [facility] Author: Emeterio Lugo MD Date: Impression and Plan 1. NSTEMI, currently stable and asymptomatic s/p circ stenting 2. hx CAD s/p CABG : MARIE to LAD with severe dz in anastomosis. Severe ostial large LCx, PIN WORKER RCA and LAD. No patent SVGs - Apical and inferior scar on viability study a few days ago. 3. essential systemic HTN 4. Chronic systolic congestive heart failure with an ejection fraction of about 30%, status post AICD placement. 5. ckd stage II- Cr on the rise 6. Jehova's Witness 7. Right femoral briut PLAN:- cont heparin drip. - cont bp meds and statins - cont asa and plavix, decrease the spironolactone and encourage hydration - cardiac rehab - check right groin US and f/u on BMP in the morning d/c planning The patient was seen and examined by me with the resident/AUTOMOTIVE ENGINEER/PA and I agree with the History/Exam documented.
--- OUTSIDE RECORDS SUMMARY | 2017-12-11 21:03 | XMS REPORT ---
:1935 Author Organization eClinicalWorks Care Team Providers Name Role Phone CYN [place] Provider Role Unavailable Encounters Encounter Location Date Established Patient [facility], [facility] Jun 25, 2014 [place] [facility], [facility] Aug 06, 2014 Unknown [facility], [facility] August 18, 2014 chest pain. 10/06 [facility], [facility] October 07, 2014 Established Patient [facility], [facility] December 17, 2013 Pt in [facility] 05/18 [facility], [facility] May 18, 2015 STRESS TEST [facility], [facility] December 17, 2013 Established Patient [facility], [facility] Mar 19, 2014 Established Patient [facility], [facility] May 12, 2015 Established Patient [facility], [facility] Jan 18, 2015 possible heart attack [facility], [facility] May 11, 2015 Problems Problem Type Condition ICD-9 Code Onset Dates Condition Status Problem 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 2 cups of coffee a day May 12, 2015 Tobacco Use: . Status: Former Smoker quit 22 yrs ago May 12, 2015 Alcohol: no. May 12, 2015 Summary Purpose eClinicalWorks Submission
--- OUTSIDE RECORDS SUMMARY | 2017-12-11 21:03 | XMS REPORT ---
:1935 Author Organization eClinicalWorks Care Team Providers Name Role Phone PHYLLIS [place] Provider Role Unavailable Encounters Encounter Location Date Established Patient [facility], [facility] Jun 25, 2014 [place] ref[place] [facility], [facility] Aug 06, 2014 Unknown [facility], [facility] August 18, 2014 chest pain. 10/06 [facility], [facility] October 07, 2014 Established Patient [facility], [facility] December 17, 2013 STRESS TEST [facility], [facility] December 17, 2013 Established Patient [facility], [facility] Mar 19, 2014 Established Patient [facility], [facility] May 12, 2015 Established Patient [facility], [facility] Jan 18, 2015 possible heart attack [facility], [facility] May 11, 2015 chest pain [facility], [facility] December 28, 2015 Pt in [facility] 05/18 [facility], [facility] May 18, 2015 [place] [facility] [facility], [facility] October 19, 2015 Problems Problem Type Condition ICD-9 Code Onset Dates Condition Status Problem Presence 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 Problem 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 2 cups of coffee a day December 20, 2015 Tobacco Use: . Status: Former Smoker quit 22 yrs ago December 20, 2015 Alcohol: no. December 20, 2015 Summary Purpose eClinicalWorks Submission
--- OUTSIDE RECORDS SUMMARY | 2017-12-11 21:03 | XMS REPORT ---
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 Problem 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 Problem Presence of automatic (implantable) Z95.810 Active cardiac defibrillator Problem Acute on chronic systolic I50.23 Active (congestive) heart failure Problem Paroxysmal atrial fibrillation I48.0 Active Problem Arteriovenous fistula, 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
--- OUTSIDE RECORDS SUMMARY | 2017-12-11 21:03 | XMS REPORT ---
:1935 Author Organization eClinicalWorks Care Team Providers Name Role Phone [place] PHYLLIS Provider Role Unavailable Allergies, Adverse Reactions, Alerts Substance Reaction Event Type N.K.D.A. Info Not Available Non Drug Allergy Encounters Encounter Location Date Established Patient [facility], [facility] Jun 25, 2014 Established Patient [facility], [facility] December 17, 2013 STRESS TEST [facility], [facility] December 17, 2013 Established Patient [facility], [facility] Mar 19, 2014 Problems Problem Type Condition ICD-9 Code Onset Dates Condition Status Assessment 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 Active [place] vessel Problem Diabetes mellitus type II 250.00 Active Problem Hypertension Heart Disease - w/o 402.10 Active CHF* Problem 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 Problem Chronic systolic heart failure 428.22 Active Problem S/P Automatic Defibrillator V45.02 Active Problem 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 Active [place] vessel Problem 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 Problem Hypercholesterolemia NOS 272.4 Active Problem Hypothyroidism (acquired) 244.9 Active Assessment S/P Automatic Defibrillator V45.02 Active Assessment Chronic systolic heart failure 428.22 Active Assessment 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 Medications Medication Code System Code Instructions Start End Date Status Dosage Date losartan MULTUM 26109 50 mg orally once Active 1 tab(s) a day nitroglycerin MULTUM 65591 0.4 mg November 26, Active 1 tab(s) sublingually every 2013 5 minutes Lantus MULTUM 23626 100 units/mL Active 34 units at subcutaneously bedtime Crestor MULTUM 65769 10 mg orally once Jan 27, Active 1 tab(s) a day (at bedtime) 2012 levothyroxine MULTUM 90286 112 mcg orally Active 2 caps once a day spironolactone MULTUM 08526 25 mg orally 3 Active 1 tab(s) times a day carvedilol MULTUM 31819 12.5 mg orally 2 Active 1 tab(s) times a day tamsulosin MULTUM 95391 0.4 mg orally bid Active 1 cap(s) gemfibrozil MULTUM 61044 600 mg orally 2 Active 1 tab(s) times a day ASA Unknown 0 81mg once a day Active 1 tab(s) omeprazole MULTUM 77538 20 mg orally once Active 1 tab(s) a day furosemide MULTUM 95398 40 mg orally once Jun 26, Active 1 tab(s) a day 2014 [place] MULTUM 12351 1000 mg orally 2 Active 1 tab(s) times a day Humalog MULTUM 6127 100 units/mL Active 12 units subcutaneously before meals Social History Social History Element Qualifiers Date Reported Caffeine: yes. 2 cups of coffee a day Jun 25, 2014 Tobacco Use: . Status: Former Smoker quit 22 yrs ago Jun 25, 2014 Alcohol: no. Jun 25, 2014 Vital Signs Date/Time: Jun 25, 2014 Blood Pressure Systolic 126 mm Hg Height 66 in Blood Pressure Diastolic 68 mm Hg Summary Purpose eClinicalWorks Submission
--- OUTSIDE RECORDS SUMMARY | 2017-12-11 21:03 | XMS REPORT ---
:1935 Author Organization eClinicalWorks Care Team Providers Name Role Phone YONAS AGUIRRE Provider Role Unavailable Allergies, Adverse Reactions, Alerts Substance Reaction Event Type N.K.D.A. Info Not Available Non Drug Allergy Encounters Encounter Location Date Established Patient [facility], [facility] Jun 25, 2014 [place] refill [facility], [facility] Aug 06, 2014 Unknown [facility], [facility] August 18, 2014 chest pain. 10/06 [facility], [facility] October 07, 2014 Established Patient [facility], [facility] December 17, 2013 STRESS TEST [facility], [facility] December 17, 2013 Established Patient [facility], [facility] Mar 19, 2014 Established Patient [facility], [facility] May 12, 2015 Established Patient [facility], [facility] Jan 18, 2015 possible heart attack [facility], [facility] May 11, 2015 Problems Problem Type Condition ICD-9 Code Onset Dates Condition Status Assessment Presence 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 Assessment 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 Assessment Hyperlipidemia, unspecified E78.5 Active Assessment 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 Problem 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 Problem 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 Problem Presence 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 Problem Hypothyroidism, unspecified E03.9 Active Assessment 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 Problem 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 Problem Hyperlipidemia, unspecified E78.5 Active Medications Medication Code System Code Instructions Start End Date Status Dosage Date nitroglycerin MULTUM 91979 0.4 mg November 26, Active 1 tab(s) sublingually every 2013 5 minutes omeprazole MULTUM 41627 20 mg orally once Active 1 tab(s) a day tamsulosin MULTUM 44750 0.4 mg orally bid Active 1 cap(s) spironolactone MULTUM 84434 25 mg orally 3 Active 1 tab(s) times a day levothyroxine MULTUM 27604 112 mcg orally Active 2 caps once a day carvedilol MULTUM 24286 12.5 mg orally 2 Active 1 tab(s) times a day furosemide MULTUM 75082 40 mg orally once Jun 26, Active 1 tab(s) a day 2014 Crestor MULTUM 93930 10 mg orally once Jan 27, Active 1 tab(s) a day (at bedtime) 2012 [place] MULTUM 14538 1000 mg orally 2 Active 1 tab(s) times a day gemfibrozil MULTUM 62555 600 mg orally 2 Active 1 tab(s) times a day losartan MULTUM 11415 50 mg orally once Active 1 tab(s) a day Lantus MULTUM 65137 100 units/mL Active 34 units at subcutaneously bedtime Humalog MULTUM 6127 100 units/mL Active 13 units subcutaneously before meals ASA Unknown 0 81mg once a day Active 1 tab(s) Social History Social History Element Qualifiers Date Reported Caffeine: yes. 2 cups of coffee a day May 12, 2015 Tobacco Use: . Status: Former Smoker quit 22 yrs ago May 12, 2015 Alcohol: no. May 12, 2015 Vital Signs Date/Time: May 12, 2015 Blood Pressure Systolic 124 mm Hg Height 66 in Blood Pressure Diastolic 58 mm Hg Summary Purpose eClinicalWorks Submission
--- OUTSIDE RECORDS SUMMARY | 2017-12-11 21:03 | XMS REPORT ---
:1935 Author Organization eClinicalWorks Care Team Providers Name Role Phone PHYLLIS [place] Provider Role Unavailable Allergies, Adverse Reactions, Alerts Substance Reaction Event Type N.K.D.A. 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 Problem 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 Problem Hypothyroidism, unspecified E03.9 Active Problem Non-ST elevation (NSTEMI) I21.4 Active myocardial infarction Problem Presence of coronary angioplasty Z95.5 Active implant and graft Assessment 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 Assessment Presence of automatic (implantable) Z95.810 Active cardiac defibrillator Assessment Presence of coronary angioplasty Z95.5 Active implant and graft Assessment Hyperlipidemia, unspecified E78.5 Active Assessment 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 Assessment 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 Problem Presence of automatic (implantable) Z95.810 Active cardiac defibrillator Medications Medication Code Code Instructions Start End Status Dosage System Date Date nitroglycerin [facility] 69295165387 0.4 mg Active 1 tab(s) sublingually every 5 minutes baclofen [facility] 20229250646 10 mg orally Active 1 tab(s) bid tamsulosin [facility] 63790921407 0.4 mg orally Active 1 cap(s) once a day ASA [facility] 16305335817 81mg once a Active 1 tab(s) day losartan [facility] 93890648005 50 mg orally Active 1 tab(s) once a day spironolactone [facility] 28515416818 25 mg orally Active 1 tab(s) bid Prilosec [facility] 17834575216 20 mg orally Active 1 cap(s) once a day glimepiride [facility] 07391093569 1 mg orally bid Active 1 tab(s) clopidogrel [facility] 52522048633 75 mg orally Active 1 tab(s) once a day furosemide ND 66886319094 40 mg orally Active 1 tab(s) once a day carvedilol [facility] 86331366795 6.25 orally 2 Active 1 tab(s) times a day Glumetza [facility] 09839831305 500 mg orally Active 1 tab(s) bid isosorbide [facility] 21434984656 30 mg orally Active 1 tab(s) dinitrate every 8 hrs Synthroid [facility] 05554574980 200 mcg (0.2 Active 1 tab(s) mg) orally once a day hydralazine [facility] 88915147966 25 mg orally 4 Active 1 tab(s) times a day [place] [facility] 36433588240 1000 mg orally Active 1 tab(s) 2 times a day omeprazole [facility] 85661926104 20 mg orally Active 1 cap(s) once a day Vital Signs Date/Time: September 03, 2016 Blood Pressure Systolic 136 mm Hg BMI 29.53 Index Height 66 in Blood Pressure Diastolic 60 mm Hg Results No Known Results Summary Purpose eClinicalWorks Submission
--- OUTSIDE RECORDS SUMMARY | 2017-12-11 21:03 | XMS REPORT ---
:1935 Author Organization eClinicalWorks Care Team Providers Name Role Phone CYN [place] Provider Role Unavailable Allergies, Adverse Reactions, Alerts Substance Reaction Event Type N.K.D.A. Info Not Available Non Drug Allergy Encounters Encounter Location Date Established Patient [facility], [facility] December 17, 2013 STRESS TEST [facility], [facility] December 17, 2013 Established Patient [facility], [facility] Mar 19, 2014 Problems Problem Type Condition ICD-9 Code Onset Dates Condition Status Assessment 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 Active [place] vessel Problem Diabetes mellitus type II 250.00 Active Problem Hypertension Heart Disease - w/o 402.10 Active CHF* Problem 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 Problem Chronic systolic heart failure 428.22 Active Problem S/P Automatic Defibrillator V45.02 Active Problem 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 Active [place] vessel Problem 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 Problem Hypercholesterolemia NOS 272.4 Active Problem Hypothyroidism (acquired) 244.9 Active Assessment Hypertension Heart Disease - w/o 402.10 Active CHF* Assessment S/P Automatic Defibrillator V45.02 Active Assessment Chronic systolic heart failure 428.22 Active Assessment 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 Medications Medication Code System Code Instructions Start End Date Status Dosage Date levothyroxine MULTUM 60721 200 mcg orally Active 1 cap(s) once a day nitroglycerin MULTUM 24855 0.4 mg November 26, Active 1 tab(s) sublingually every 2013 5 minutes gemfibrozil MULTUM 92027 600 mg orally 2 Active 1 tab(s) times a day omeprazole MULTUM 77803 20 mg orally once Active 1 tab(s) a day losartan MULTUM 15442 50 mg orally once Active 1 tab(s) a day Crestor MULTUM 67978 10 mg orally once Jan 27, Active 1 tab(s) a day (at bedtime) 2012 spironolactone MULTUM 61025 25 mg orally 3 Active 1 tab(s) times a day tamsulosin MULTUM 59779 0.4 mg orally bid Active 1 cap(s) ASA Unknown 0 81mg once a day Active 1 tab(s) Lantus MULTUM 88382 100 units/mL Active 34 units at subcutaneously bedtime furosemide MULTUM 03155 20 mg orally once Active 3 tsa a day [place] MULTUM 07706 1000 mg orally 2 Active 1 tab(s) times a day Humalog MULTUM 6127 100 units/mL Active 12 units subcutaneously before meals Social History Social History Element Qualifiers Date Reported Caffeine: yes. 2 cups of coffee a day Mar 19, 2014 Tobacco Use: . Status: Former Smoker quit 22 yrs ago Mar 19, 2014 Alcohol: no. Mar 19, 2014 Vital Signs Date/Time: December 17, 2013 Blood Pressure Systolic 104 mm Hg Height 66 in Blood Pressure Diastolic 60 mm Hg Summary Purpose eClinicalWorks Submission
--- OUTSIDE RECORDS SUMMARY | 2017-12-11 21:03 | XMS REPORT ---
:1935 Author Organization eClinicalWorks Care Team Providers Name Role Phone PHYLLIS [place] Provider Role Unavailable Allergies, Adverse Reactions, Alerts Substance Reaction Event Type N.K.D.A. 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 Assessment Presence of coronary angioplasty Z95.5 Active implant and graft Problem 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 Problem Presence of automatic (implantable) Z95.810 Active cardiac defibrillator Problem Presence of coronary angioplasty Z95.5 Active implant and graft Problem Hyperlipidemia, unspecified E78.5 Active Problem Hypothyroidism, unspecified E03.9 Active Problem 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 Problem 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 Assessment 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 Assessment Hyperlipidemia, unspecified E78.5 Active Assessment 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 Medications Medication Code System Code Instructions Start Date End Date Status Dosage spironolactone NDC 31816 25 mg orally bid Active 1 tab(s) Glumetza NDC 92609 500 mg orally bid Active 1 tab(s) clopidogrel NDC 04847 75 mg orally once Active 1 tab(s) a day Synthroid NDC 2205 200 mcg (0.2 mg) Active 1 tab(s) orally once a day carvedilol NDC 31650 3.125 mg orally 2 Active 2 tab(s) times a day glimepiride NDC 68991 1 mg orally bid Active 1 tab(s) atorvastatin NDC 73527 10 mg orally once Active 1 tab(s) a day (at bedtime) tamsulosin NDC 37684 0.4 mg orally Active 1 cap(s) once a day furosemide NDC 79719 40 mg orally once Active 1 tab(s) a day ASA NDC 0 81mg once a day Active 1 tab(s) Prilosec NDC 363 20 mg orally once Active 1 cap(s) a day [place] NDC 74264 1000 mg orally 2 Active 1 tab(s) times a day nitroglycerin NDC 94356 0.4 mg Active 1 tab(s) sublingually every 5 minutes losartan NDC 63269 50 mg orally once Active 1 tab(s) a day Vital Signs Date/Time: Jun 19, 2016 Blood Pressure Systolic 110 mm Hg BMI 30.66 Index Height 66 in Blood Pressure Diastolic 50 mm Hg Results No Known Results Summary Purpose eClinicalWorks Submission
--- OUTSIDE RECORDS SUMMARY | 2017-12-11 21:03 | XMS REPORT ---
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
--- OUTSIDE RECORDS SUMMARY | 2017-12-11 21:03 | XMS REPORT ---
:1935 Author Organization eClinicalWorks Care Team Providers Name Role Phone CYN [place] Provider Role Unavailable Encounters Encounter Location Date Established Patient [facility], [facility] Jun 25, 2014 [place] ref[place] [facility], [facility] Aug 06, 2014 Unknown [facility], [facility] August 18, 2014 chest pain. 10/06 [facility], [facility] October 07, 2014 Established Patient [facility], [facility] December 17[facility] 2013 Pt [facility] 05/18 [facility], [facility] May 18, 2015 STRESS TEST [facility], [facility] December 17, 2013 [place] Change[facility] [facility], [facility] October 19, 2015 Established Patient [facility], [facility] Mar 19, 2014 Established Patient [facility], [facility] May 12, 2015 Established Patient [facility], [facility] Jan 18, 2015 possible heart attack [facility], [facility] May 11, 2015 Problems Problem Type Condition ICD-9 Code Onset Dates Condition Status Problem Presence 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 Problem 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 2 cups of coffee a day September 20, 2015 Tobacco Use: . Status: Former Smoker quit 22 yrs ago September 20, 2015 Alcohol: no. September 20, 2015 Summary Purpose eClinicalWorks Submission
--- OUTSIDE RECORDS SUMMARY | 2017-12-11 21:03 | XMS REPORT ---
:1935 Author Organization eClinicalWorks Care Team Providers Name Role Phone PHYLLIS WHITTINGTON Provider Role Unavailable Allergies, Adverse Reactions, Alerts Substance Reaction Event Type N.K.D.A. 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 Assessment 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 Problem Presence of automatic (implantable) Z95.810 Active cardiac defibrillator Medications Medication Code Code Instructions Start End Status Dosage System Date Date losartan [facility] 14609640035 50 mg orally Active 1 tab(s) once a day clopidogrel [facility] 59834103487 75 mg orally Active 1 tab(s) once a day nitroglycerin [facility] 03094565548 0.4 mg Active 1 tab(s) sublingually every 5 minutes baclofen [facility] 88025890266 10 mg orally Active 1 tab(s) bid glimepiride [facility] 81837860897 1 mg orally Active 1 tab(s) once aday spironolactone [facility] 08045567780 25 mg orally Active 1 tab(s) bid furosemide [facility] 25331539477 40 mg orally Active 1 tab(s) once a day Glumetza [facility] 11848666262 500 mg orally Active 1 tab(s) bid carvedilol [facility] 24110116902 6.25 orally 2 Active 1 tab(s) times a day [place] [facility] 17525284075 1000 mg orally Active 1 tab(s) 2 times a day omeprazole [facility] 93956441573 20 mg orally Active 1 cap(s) once a day Prilosec [facility] 87692144663 20 mg orally Active 1 cap(s) once a day Synthroid [facility] 33191414403 200 mcg (0.2 Active 1 tab(s) mg) orally once a day hydralazine [facility] 98535771286 25 mg orally 4 Active 1 tab(s) times a day Lasix [facility] 48044268494 40 mg orally Ricarda Active 1 tab(s) once a day 2016 ASA [facility] 11718638263 81mg once a Active 1 tab(s) day tamsulosin [facility] 90718184607 0.4 mg orally Active 1 cap(s) once a day isosorbide [facility] 29251071475 30 mg orally Active 1 tab(s) dinitrate every 8 hrs Vital Signs Date/Time: September 25, 2016 Blood Pressure Systolic 122 mm Hg BMI 30.02 Index Height 66 in Blood Pressure Diastolic 50 mm Hg Results No Known Results Summary Purpose eClinicalWorks Submission
--- OUTSIDE RECORDS SUMMARY | 2017-12-11 21:03 | XMS REPORT ---
:1935 Author Organization eClinicalWorks Care Team Providers Name Role Phone PHYLLIS WHITTINGTON Provider Role Unavailable Encounters Encounter Location Date Established Patient [facility] Jun 25, 2014 [place] refill [facility] Aug 06, 2014 Unknown [facility] August 18, 2014 chest pain. 10/06 [facility] October 07, 2014 Established Patient [facility] December 17, 2013 STRESS TEST [facility] December 17, 2013 Established Patient [facility] Mar 19, 2014 Established Patient [facility] May 12, 2015 Established Patient [facility] Jan 18, 2015 possible heart attack 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
--- OUTSIDE RECORDS SUMMARY | 2017-12-11 21:03 | XMS REPORT ---
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
--- OUTSIDE RECORDS SUMMARY | 2017-12-11 21:03 | XMS REPORT ---
:1935 Author Organization eClinicalWorks Care Team Providers Name Role Phone PHYLLIS WHITTINGTON Provider Role Unavailable Encounters Encounter Location Date Established Patient [facility] December 17, 2013 STRESS TEST [facility] December 17, 2013 Established Patient [facility] Mar 19, 2014 Problems Problem Type Condition ICD-9 Code Onset Dates Condition Status Assessment 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 Active [place] vessel Problem Diabetes mellitus type II 250.00 Active Problem Hypertension Heart Disease - w/o 402.10 Active CHF* Problem 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 Problem Chronic systolic heart failure 428.22 Active Problem S/P Automatic Defibrillator V45.02 Active Problem 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 Active [place] vessel Problem 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 Problem Hypercholesterolemia NOS 272.4 Active Problem Hypothyroidism (acquired) 244.9 Active Medications Medication Code System Code Instructions Start End Date Status Dosage Date Humalog MULTUM 6127 100 units/mL Active 12 units subcutaneously before meals levothyroxine M[facility] 76065 200 mcg orally Active 1 cap(s) once a day [place] MULTUM 90882 1000 mg orally 2 Active 1 tab(s) times a day nitroglycerin M[facility] 97123 0.4 mg/hr Active 1 PATCH transdermally prn nitroglycerin M[facility] 66428 0.4 mg November 26, Active 1 tab(s) sublingually every 2013 5 minutes losartan M[facility] 13446 50 mg orally once Active 1 tab(s) a day omeprazole [facility] 11839 20 mg orally once Active 1 tab(s) a day Crestor [facility] 28743 10 mg orally once Jan 27, Active 1 tab(s) a day (at bedtime) 2012 ASA Unknown 0 81mg once a day Active 1 tab(s) tamsulosin M[facility] 76363 0.4 mg orally once Active 1 cap(s) a day Coreg M[facility]UM 73460 12.5 mg orally 2 Active 1/2 tab times a day spironolactone [facility] 26812 25 mg orally 3 Active 1 tab(s) times a day Lantus M[facility] 85579 100 units/mL Active 34 units at subcutaneously bedtime gemfibrozil M[facility] 97600 600 mg orally 2 Active 1 tab(s) times a day furosemide [facility] 22959 20 mg orally once Active 2 tabs a day Social History Social History Element Qualifiers Date Reported Caffeine: yes. 2 cups of coffee a day Mar 19, 2014 Tobacco Use: . Status: Former Smoker quit 22 yrs ago Mar 19, 2014 Alcohol: no. Mar 19, 2014 Summary Purpose eClinicalWorks Submission
--- OUTSIDE RECORDS SUMMARY | 2017-12-11 21:03 | XMS REPORT ---
:1935 Author Organization eClinicalWorks Care Team Providers Name Role Phone WHITTINGTONCYNY Provider Role Unavailable Allergies, Adverse Reactions, Alerts Substance Reaction Event Type N.K.D.A. Info Not Available Non Drug Allergy Encounters Encounter Location Date Established Patient [facility] December 17, 2013 STRESS TEST [facility] December 17, 2013 Established Patient [facility] Mar 19, 2014 Problems Problem Type Condition ICD-9 Code Onset Dates Condition Status Assessment 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 Active [place] vessel Problem Diabetes mellitus type II 250.00 Active Problem Hypertension Heart Disease - w/o 402.10 Active CHF* Problem 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 Problem Chronic systolic heart failure 428.22 Active Problem S/P Automatic Defibrillator V45.02 Active Problem 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 Active [place] vessel Problem 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 Problem Hypercholesterolemia NOS 272.4 Active Problem Hypothyroidism (acquired) 244.9 Active Assessment S/P Automatic Defibrillator V45.02 Active Assessment Chronic systolic heart failure 428.22 Active Assessment 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 Medications Medication Code System Code Instructions Start End Date Status Dosage Date Humalog MULTUM 6127 100 units/mL Active 12 units subcutaneously before meals spironolactone MULTUM 92793 25 mg orally 3 Active 1 tab(s) times a day Lantus MULTUM 73224 100 units/mL Active 34 units at subcutaneously bedtime omeprazole [facility] 31615 20 mg orally once Active 1 tab(s) a day levothyroxine M[facility]UM 65076 112 mcg orally Active 2 caps once a day Crestor MULTUM 06740 10 mg orally once Jan 27, Active 1 tab(s) a day (at bedtime) 2012 Lyrica MULTUM 15735 50 mg orally 2 Active 1 cap(s) times a day ASA Unknown 0 81mg once a day Active 1 tab(s) furosemide MULTUM 60941 20 mg orally tid Active 3 tsa tamsulosin MULTUM 74291 0.4 mg orally bid Active 1 cap(s) nitroglycerin MULTUM 73099 0.4 mg November 26 1 tab(s) sublingually every 2013 5 minutes losartan MULTUM 71202 50 mg orally once Active 1 tab(s) a day [place] MULTUM 67977 1000 mg orally 2 Active 1 tab(s) times a day gemfibrozil MULTUM 48362 600 mg orally 2 Active 1 tab(s) times a day Social History Social History Element Qualifiers Date Reported Caffeine: yes. 2 cups of coffee a day Mar 19, 2014 Tobacco Use: . Status: Former Smoker quit 22 yrs ago Mar 19, 2014 Alcohol: no. Mar 19, 2014 Vital Signs Date/Time: Mar 19, 2014 Blood Pressure Systolic 112 mm Hg Height 66 in Blood Pressure Diastolic 60 mm Hg Summary Purpose eClinicalWorks Submission
--- OUTSIDE RECORDS SUMMARY | 2017-12-11 21:03 | XMS REPORT ---
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
--- OUTSIDE RECORDS SUMMARY | 2017-12-11 21:03 | XMS REPORT ---
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
--- OUTSIDE RECORDS SUMMARY | 2017-12-11 21:04 | XMS REPORT | Summary of Care ---
:1935 Author Organization [facility] Address [address], [place] [address]- Encounter HQ Criselda(FIN) [phone] Date(s): 12/28/15 - 12/30/15 [facility] [address] [place] [address]- [phone] Discharge Disposition: Home or Self Care Attending Physician: Bharati Key MD Admitting Physician: Bharati Key MD Vital Signs Most recent to oldest 1 2 3 [Reference Range]: Height 170.18 cm 170.18 cm (12/28/15 6:28 PM) (12/28/15 2:50 PM) Current Weight 86.7 kg (12/29/15 4:48 AM) Temperature Oral [96.4-99.1 98.0 DegF 98.4 DegF 98.2 DegF DegF] (12/30/15 12:02 PM) (12/30/15 8:32 AM) (12/30/15 4:49 AM) Blood Pressure [90-140/60-90 158/67 mmHg 137/65 mmHg 130/64 mmHg mmHg] *HI* (12/30/15 8:32 AM) (12/30/15 4:49 AM) (12/30/15 12:02 PM) Respiratory Rate [14-20 BRMIN] 16 BRMIN 16 BRMIN 16 BRMIN (12/30/15 12:02 PM) (12/30/15 8:32 AM) (12/30/15 4:49 AM) Peripheral Pulse Rate [60-100 68 bpm 62 bpm 64 bpm bpm] (12/30/15 12:02 PM) (12/30/15 8:32 AM) (12/30/15 4:49 AM) Weight 82.273 kg 83.455 kg 84.716 kg (12/30/15 6:51 AM) (12/28/15 6:28 PM) (12/28/15 2:50 PM) Body Mass Index 28.82 m2 29.25 m2 (12/28/15 6:28 PM) (12/28/15 2:50 PM) Problem List Condition Effective Dates Status Health Status Informant CAD (coronary atherosclerotic Active disease)(Confirmed) Heart failure(Confirmed) Active HTN (hypertension)(Confirmed) Resolved UT (myocardial Resolved infarction)(Confirmed) Allergies, Adverse Reactions, Alerts Substance Reaction Severity Status NKDA Active Medications acetaminophen 650 mg, 2 tab, Route: PO, Drug form: TAB, Q6H, Dosing Weight 83.455, kg, PRN Pain Score 1-3, Start date: 12/29/15 12:43:00 CDT, Duration: 30 day, Stop date: 01/28/16 12:42:00 CDT Notes: Do not exceed 4 gm/day. (Same as: Tylenol) Start Date: 12/29/15 Stop Date: 12/30/15 Status: DiscontinuedAldactone 25 mg, 1 tab, Route: PO, Drug form: TAB, BID, Dosing Weight 83.455, kg, Start date: 12/29/15 17:00:00 CDT, Duration: 30 day, Stop date: 01/28/16 9:00:00 CDT Notes: (Same As: Aldactone) Start Date: 12/29/15 Stop Date: 12/30/15 Status: Discontinuedaspirin 325 mg, 1 tab, Route: PO, Drug form: TAB, ONCE, Dosing Weight 84.716, kg, Priority: STAT, Start date: 12/28/15 16:29:00 CDT, Stop date: 12/28/15 16:29:00 CDT Notes: Take with food. Start Date: 12/28/15 Stop Date: 12/28/15 Status: Completedaspirin 325 mg tablet, enteric coated 325 mg, 1 tab, Route: PO, Daily, Dosing Weight 83.455, kg, Priority: NOW, Start date: 12/29/15 9:09:00 CDT, Duration: 30 day, Stop date: 01/28/16 9:00:00 CDT Start Date: 12/29/15 Stop Date: 12/29/15 Status: Discontinuedaspirin 325 mg tablet, enteric coated 325 mg, 1 tab, Route: PO, Drug form: TAB, Daily, Dosing Weight 83.455, kg, Start date: 12/30/15 9:00:00 CDT, Duration: 30 day, Stop date: 01/28/16 9:00:00 CDT Notes: Take with food. Start Date: 12/30/15 Stop Date: 12/30/15 Status: Discontinuedaspirin 81 mg tablet, enteric coated 81 mg, 1 tab, Route: PO, Drug form: ECTAB, Daily, Dosing Weight 83.455, kg, Start date: 12/30/15 9:00:00 CDT, Duration: 30 day, Stop date: 01/28/16 9:00:00 CDT Notes: Do not crush or chew.(Same As: Ecotrin) Start Date: 12/30/15 Stop Date: 12/29/15 Status: Canceledcarvedilol 3.125 mg oral tablet 6.25 mg=2 tab, PO, BID, 0 Refill(s) Start Date: 12/30/15 Status: Orderedclopidogrel 75 mg, Route: PO, Drug form: TAB, Daily, Dosing Weight 83.455, kg, Start date: 12/30/15 9:00:00 CDT,Duration: 30 day, Stop date: 01/28/16 9:00:00 CDT Start Date: 12/30/15 Stop Date: 12/29/15 Status: DeletedCoreg 6.25 mg, 2 tab, Route: PO, Drug form: TAB, BID, Dosing Weight 83.455, kg, Start date: 12/29/15 21:00:00 CDT, Duration: 30 day, Stop date: 01/28/16 9:00:00 CDT Notes: Give with food. (Same As: Coreg) Start Date: 12/29/15 Stop Date: 12/30/15 Status: DiscontinuedCrestor 20 mg, Route: PO, Drug form: TAB, Bedtime, Dosing Weight 83.455, kg, Start date : 12/29/15 21:00:00 CDT, Duration: 30 day, Stop date: 01/27/16 21:00:00 CDT Start Date: 12/29/15 Stop Date: 12/29/15 Status: DeletedCrestor 20 mg, Route: PO, Drug form: TAB, Bedtime, Dosing Weight 83.455, kg, Start date : 12/29/15 21:00:00 CDT, Duration: 30 day, Stop date: 01/27/16 21:00:00 CDT Start Date: 12/29/15 Stop Date: 12/29/15 Status: DeletedDextrose 50% Syringe 25 gm, 50 mL, Route: IVP, Drug Form: INJ, Dosing Weight 83.455, kg, PRN, PRN Blood Glucose Results, Start date: 12/29/15 14:46:00 CDT, Duration: 30 day, Stop date: 01/28/16 14:45:00 CDT Start Date: 12/29/15 Stop Date: 12/30/15 Status: DiscontinuedDextrose 50% Syringe 12.5 gm, 25 mL, Route: IVP, Drug Form: INJ, Dosing Weight 83.455, kg, PRN, PRN Blood Glucose Results, Start date: 12/29/15 14:46:00 CDT, Duration: 30 day, Stop date: 01/28/16 14:45:00 CDT Start Date: 12/29/15 Stop Date: 12/30/15 Status: Discontinuedfamotidine 20 mg, 1 tab, Route: PO, Drug form: TAB, Q12H, Dosing Weight 83.455, kg, PRN Heartburn, Start date: 12/29/15 15:39:00 CDT, Duration: 30 day, Stop date: 01/27 15:38:00 CDT Notes: (Same as: Pepcid) Start Date: 12/29/15 Stop Date: 12/30/15 Status: Discontinuedfurosemide 40 mg oral tablet 40 mg, 1 tab, Route: PO, Drug form: TAB, Daily, Dosing Weight 83.455, kg, Start date: 12/30/15 9:00:00 CDT, Duration: 30 day, Stop date: 01/28/16 9:00:00 CDT Notes: (Same as: Lasix) May cause GI upset. Give with food or milk. Start Date: 12/30/15 Stop Date: 12/30/15 Status: Discontinuedglimepiride 1 mg, PO, BID-Meals, 0 Refill(s) Start Date: 12/29/15 Status: Orderedglimepiride 1 mg, 0.5 tab, Route: PO, Drug form: TAB, BID-Meals, Dosing Weight 83.455, kg, Start date: 12/29/15 17:00:00 CDT, Duration: 30 day, Stop date: 01/28/16 8:00: 00 CDT Notes: (Same as: Amaryl) Start Date: 12/29/15 Stop Date: 12/30/15 Status: Discontinuedglucagon 1 mg, Route: IM, Drug form: PDR/INJ, PRN, Dosing Weight 83.455, kg, PRN Blood Glucose Results, Startdate: 12/29/15 14:46:00 CDT, Duration: 30 day, Stop date: 01/28/16 14:45:00 CDT Start Date: 12/29/15 Stop Date: 12/30/15 Status: DiscontinuedHeparin - one time bolus for ACS 4,000 unit, 4 mL, Route: IV, Drug form: INJ, ONCE, Dosing Weight 84.716, kg, Priority: STAT, Start date: 12/28/15 16:59:00 CDT, Stop date: 12/28/15 16:59:00 CDT Start Date: 12/28/15 Stop Date: 12/28/15 Status: CompletedHeparin 30 unit/kg Bolus (Heparin Dosing Weight) Route: IVP, PRN, 2,200 unit, 2.2 mL, Drug form: INJ, PRN, Heparin Protocol, Start date: 12/28/15 16:59:00 CDT Stop date: 01/27/16 16:58:00 CDT, 30 day Start Date: 12/28/15 Stop Date: 12/29/15 Status: DiscontinuedHeparin 60 unit/kg Bolus (Heparin Dosing Weight) Route: IVP, PRN, 4,400 unit, 4.4 mL, Drug form: INJ, PRN, Heparin Protocol, Start date: 12/28/15 16:59:00 CDT Stop date: 01/27/16 16:58:00 CDT, 30 day Start Date: 12/28/15 Stop Date: 12/29/15 Status: Discontinuedheparin additive 25,000 unit [12 unit/kg/hr] + Premix Diluent Dextrose 5% 500 mL 500 mL, Rate: 17.65 ml/hr, Infuse over: 28.3 hr, Route: IV, Dosing Weight 73.55 kg, Total Volume: 500 mL, Start date: 12/28/15 16:59:00 CDT, Duration: 30 day, Stop date: 01/27/16 16:58:00 CDT Start Date: 12/28/15 Stop Date: 12/29/15 Status: Discontinuedinsulin aspart 4 unit, 0.04 mL, Route: SUB-Q, Drug form: SOLN, Bedtime, Dosing Weight 83.455, kg, PRN Blood GlucoseResults, Start date: 12/29/15 14:46:00 CDT, Duration: 30 day, Stop date: 01/28/16 14:45:00 CDT Notes: Roll in palms of hands gently; Do not shake vigorously. (Same as: Mobisante)"single patient use only"WASTE: F/P - Black; E - Municipal Trash Bin Stable for 28 days at room temperature.Expires in days from Date Start Date: 12/29/15 Stop Date: 12/30/15 Status: Discontinuedinsulin aspart 1 unit, 0.01 mL, Route: SUB-Q, Drug form: SOLN, Bedtime, Dosing Weight 83.455, kg, PRN Blood GlucoseResults, Start date: 12/29/15 14:46:00 CDT, Duration: 30 day, Stop date: 01/28/16 14:45:00 CDT Notes: Roll in palms of hands gently; Do not shake vigorously. (Same as: Mobisante)"single patient use only"WASTE: F/P - Black; E - Municipal Trash Bin Stable for 28 days at room temperature.Expires in days from Date Start Date: 12/29/15 Stop Date: 12/30/15 Status: Discontinuedinsulin aspart 2 unit, 0.02 mL, Route: SUB-Q, Drug form: SOLN, Bedtime, Dosing Weight 83.455, kg, PRN Blood GlucoseResults, Start date: 12/29/15 14:46:00 CDT, Duration: 30 day, Stop date: 01/28/16 14:45:00 CDT Notes: Roll in palms of hands gently; Do not shake vigorously. (Same as: NovoLOG)"single patient use only"WASTE: F/P - Black; E - Municipal Trash Bin Stable for 28 days at room temperature.Expires in days from Date Start Date: 12/29/15 Stop Date: 12/30/15 Status: Discontinuedinsulin aspart 3 unit, 0.03 mL, Route: SUB-Q, Drug form: SOLN, Bedtime, Dosing Weight 83.455, kg, PRN Blood GlucoseResults, Start date: 12/29/15 14:46:00 CDT, Duration: 30 day, Stop date: 01/28/16 14:45:00 CDT Notes: Roll in palms of hands gently; Do not shake vigorously. (Same as: NovoLOG)"single patient use only"WASTE: F/P - Black; E - Municipal Trash Bin Stable for 28 days at room temperature.Expires in days from Date Start Date: 12/29/15 Stop Date: 12/30/15 Status: Discontinuedinsulin aspart 10 unit, 0.1 mL, Route: SUB-Q, Drug form: SOLN, TID-Before Meals, Dosing Weight 83.455, kg, PRN Blood Glucose Results, Start date: 12/29/15 14:46:00 CDT, Duration: 30 day, Stop date: 01/28/16 14:45:00 CDT Notes: Roll in palms of hands gently; Do not shake vigorously. (Same as: NovoLOG)"single patient use only"Stable for 28 days at room temperature. Start Date: 12/29/15 Stop Date: 12/30/15 Status: Discontinuedinsulin aspart 6 unit, 0.06 mL, Route: SUB-Q, Drug form: SOLN, TID-Before Meals, Dosing Weight 83.455, kg, PRN Blood Glucose Results, Start date: 12/29/15 14:46:00 CDT, Duration: 30 day, Stop date: 01/28/16 14:45:00 CDT Notes: Roll in palms of hands gently; Do not shake vigorously. (Same as: Mobisante)"single patient use only"WASTE: F/P - Black; E - Municipal Trash Bin Stable for 28 days at room temperature.Expires in days from Date Start Date: 12/29/15 Stop Date: 12/30/15 Status: Discontinuedinsulin aspart 8 unit, 0.08 mL, Route: SUB-Q, Drug form: SOLN, TID-Before Meals, Dosing Weight 83.455, kg, PRN Blood Glucose Results, Start date: 12/29/15 14:46:00 CDT, Duration: 30 day, Stop date: 01/28/16 14:45:00 CDT Notes: Roll in palms of hands gently; Do not shake vigorously. (Same as: Mobisante)"single patient use only"WASTE: F/P - Black; E - Municipal Trash Bin Stable for 28 days at room temperature.Expires in days from Date Start Date: 12/29/15 Stop Date: 12/30/15 Status: Discontinuedinsulin aspart 2 unit, 0.02 mL, Route: SUB-Q, Drug form: SOLN, TID-Before Meals, Dosing Weight 83.455, kg, PRN Blood Glucose Results, Start date: 12/29/15 14:46:00 CDT, Duration: 30 day, Stop date: 01/28/16 14:45:00 CDT Notes: Roll in palms of hands gently; Do not shake vigorously. (Same as: BloomNationLOG)"single patient use only"WASTE: F/P - Black; E - Municipal Trash Bin Stable for 28 days at room temperature.Expires in days from Date Start Date: 12/29/15 Stop Date: 12/30/15 Status: Discontinuedinsulin aspart 4 unit, 0.04 mL, Route: SUB-Q, Drug form: SOLN, TID-Before Meals, Dosing Weight 83.455, kg, PRN Blood Glucose Results, Start date: 12/29/15 14:46:00 CDT, Duration: 30 day, Stop date: 01/28/16 14:45:00 CDT Notes: Roll in palms of hands gently; Do not shake vigorously. (Same as: NovoLOG)"single patient use only"WASTE: F/P - Black; E - Municipal Trash Bin Stable for 28 days at room temperature.Expires in days from Date Start Date: 12/29/15 Stop Date: 12/30/15 Status: DiscontinuedLipitor 40 mg, 1 tab, Route: PO, Drug form: TAB, Bedtime, Start date: 12/29/15 21:00:00 CDT, Duration: 30 day, Stop date: 01/27/16 21:00:00 CDT Notes: (Same as: Lipitor) Start Date: 12/29/15 Stop Date: 12/29/15 Status: CanceledLipitor 10 mg oral tablet 10 mg=1 tab, PO, Bedtime Start Date: 12/30/15 Status: Orderedlosartan 50 mg, 1 tab, Route: PO, Drug form: TAB, Daily, Dosing Weight 83.455, kg, Start date: 12/30/15 9:00:00 CDT, Duration: 30 day, Stop date: 01/28/16 9:00:00 CDT Notes: (Same as: Zohra) Start Date: 12/30/15 Stop Date: 12/30/15 Status: Discontinuednitroglycerin 0.4 mg, Route: Transdermal, PRN, Dosing Weight 83.455, kg, PRN Abnormal Lab Result, Start date: 12/29/15 15:36:00 CDT, Duration: 30 day, Stop date: 15:35:00 CDT Start Date: 12/29/15 Stop Date: 12/29/15 Status: Deletednitroglycerin SL Tab 0.4 mg, 1 tab, Route: SL, Drug form: TAB, Q5Min, Dosing Weight 83.455, kg, PRN Chest Pain, Start date: 12/29/15 15:39:00 CDT, Duration: 30 day, Stop date: 15:38:00 CDT Notes: (Same as:Nitroquick, Nitrostat)"Do Not Crush" Sublingual tablet Start Date: 12/29/15 Stop Date: 12/30/15 Status: Discontinuednitroglycerin SL Tab 0.4 mg, 1 tab, Route: SL, Drug form: TAB, Q5Min, Dosing Weight 83.455, kg, PRN Chest Pain, Start date: 12/28/15 19:06:00 CDT, Duration: 3 doses or times, Stop date: Limited # of times Notes: (Same as:Nitroquick, Nitrostat)"Do Not Crush" Sublingual tablet Start Date: 12/28/15 Stop Date: 12/29/15 Status: DiscontinuedNorco 7.5/325 oral tablet 1 tab, Route: PO, Drug Form: TAB, Dosing Weight 83.455, kg, Q6H, PRN Pain Score 4-6, Start date: 12/29/15 16:20:00 CDT, Duration: 30 day, Stop date: 01/28/16 16 :19:00 CDT Notes: Same as [place] 325-7.5mg Do not exceed 4gm/day of acetaminophen. Start Date: 12/29/15 Stop Date: 12/30/15 Status: DiscontinuedPlavix 75 mg, 1 tab, Route: PO, Drug form: TAB, Daily, Dosing Weight 83.455, kg, Priority: NOW, Start date:12/29/15 9:09:00 CDT, Duration: 30 day, Stop date: 9:00:00 CDT Notes: (Same As: Plavix) Start Date: 12/29/15 Stop Date: 12/30/15 Status: Discontinuedpneumococcal 13-valent vaccine 0.5 mL, Route: IM, Drug Form: INJ, Daily, Start date: 12/29/15 9:00:00 CDT, Duration: 1 doses or times, Stop date: 12/29/15 9:00:00 CDT Notes: Lightly roll vial (DO NOT SHAKE) before administration. (Same as: Prevnar 13) Start Date: 12/29/15 Stop Date: 12/29/15 Status: CompletedPrilosec 20 mg, Route: PO, Drug form: DRC, Bedtime, Dosing Weight 83.455, kg, Start date : 12/29/15 21:00:00 CDT, Duration: 30 day, Stop date: 01/27/16 21:00:00 CDT Start Date: 12/29/15 Stop Date: 12/29/15 Status: DeletedProtonix 40 mg, 1 tab, Route: PO, Drug form: ECTAB, Before Dinner, Start date: 12/29/15 16:30:00 CDT, Duration: 30 day, Stop date: 01/27/16 16:30:00 CDT Notes: Tablet should not be chewed or crushed.(Same as: Protonix) Start Date: 12/29/15 Stop Date: 12/30/15 Status: DiscontinuedRanexa 1,000 mg, 2 tab, Route: PO, Drug form: TAB, BID, Dosing Weight 83.455, kg, Start date: 12/29/15 21:00:00 CDT, Duration: 30 day, Stop date: 01/28/16 9:00: 00 CDT Notes: Same as Ranexa"Do Not Crush" Start Date: 12/29/15 Stop Date: 12/30/15 Status: Discontinuedrosuvastatin 10 mg tab rosuvastatin 10 mg tab, 20 mg, 2 tab, Drug form: MISC, Route: PO, Bedtime, 12/28 21:00:00 CDT, Duration: 30 day, Stop date: 01/27/16 21:00:00 CDT Notes: (Same as: Crestor) Start Date: 12/29/15 Stop Date: 12/30/15 Status: DiscontinuedSaline Flush 0.9% 10 ml, Route: IVP, Drug Form: INJ, Dosing Weight 83.455, kg, PRN, PRN Line Flush , Start date: 12/28/15 19:06:00 CDT, Duration: 30 day, Stop date: 01/27/16 19:05 :00 CDT Notes: (Same as: BD Posiflush) Start Date: 12/28/15 Stop Date: 12/30/15 Status: DiscontinuedSaline Flush 0.9% 10 ml, Route: IVP, Drug Form: INJ, Dosing Weight 83.455, kg, Q12H, Start date: 12/28/15 21:00:00 CDT, Duration: 30 day, Stop date: 01/27/16 9:00:00 CDT Notes: (Same as: BD Posiflush) Start Date: 12/28/15 Stop Date: 12/30/15 Status: Discontinuedsodium chloride 0.9% 1000 ml INJ 600 mL 600 mL, Rate: 100 ml/hr, Infuse over: 6 hr, Route: IV, Dosing Weight 83.455 kg, Total Volume: 600, Priority: NOW, Start date: 12/29/15 9:38:00 CDT, Stop date: 12/29/15 21:37:00 CDT Start Date: 12/29/15 Stop Date: 12/29/15 Status: CompletedSynthroid 200 microgram, 2 tab, Route: PO, Drug form: TAB, Daily, Dosing Weight 83.455, kg , Start date: 12/30/15 6:30:00 CDT, Duration: 30 day, Stop date: 01/28/16 6:30: 00 CDT Notes: Take 1 hour before or 2 hours after meal; Enteral feeds may interefere with the absorption ofthis medication. (Same as:Levothroid, Synthroid) Start Date: 12/30/15 Stop Date: 12/30/15 Status: Discontinuedtamsulosin 0.4 mg, 1 cap, Route: PO, Drug form: CAP, Daily, Dosing Weight 83.455, kg, Start date: 12/29/15 18:00:00 CDT, Duration: 30 day, Stop date: 01/27/16 18:00: 00 CDT Notes: (Same As: Flomax) "Do Not Crush" Start Date: 12/29/15 Stop Date: 12/30/15 Status: DiscontinuedZofran 4 mg, 2 mL, Route: IVP, Drug form: INJ, Q8H, Dosing Weight 84.716, kg, PRN as needed for nausea/vomiting, Start date: 12/28/15 19:06:00 CDT, Duration: 30 day , Stop date: 01/27/16 19:05:00 CDT Notes: (Same as: Zofran) MEDICATION WASTE Product Size: 4 mgProduct Wasted: ___ mg Start Date: 12/28/15 Stop Date: 12/30/15 Status: Discontinued Results ELECTROLYTES Most recent to oldest 1 2 3 [Reference Range]: Sodium Lvl [135-145 mEq/L] 145 mEq/L 143 mEq/L 139 mEq/L (12/30/15 3:33 AM) (12/29/15 8:45 AM) (12/28/15 3:44 PM) Potassium Lvl [3.5-5.1 4.1 mEq/L 3.8 mEq/L 3.6 mEq/L mEq/L] (12/30/15 3:33 AM) (12/29/15 8:45 AM) (12/28/15 3:44 PM) Chloride Lvl [95-109 mEq/L] 108 mEq/L 106 mEq/L 104 mEq/L (12/30/15 3:33 AM) (12/29/15 8:45 AM) (12/28/15 3:44 PM) CO2 [24-32 mEq/L] 30 mEq/L 27 mEq/L 29 mEq/L (12/30/15 3:33 AM) (12/29/15 8:45 AM) (12/28/15 3:44 PM) AGAP [10.0-20.0 mEq/L] 11.1 mEq/L 13.8 mEq/L 9.6 mEq/L (12/30/15 3:33 AM) (12/29/15 8:45 AM) *LOW* (12/28/15 3:44 PM) CHEM PANEL Most recent to oldest 1 2 3 [Reference Range]: Creatinine Lvl [0.50-1.40 1.28 mg/dL 1.28 mg/dL 1.50 mg/dL mg/dL] (12/30/15 3:33 AM) (12/29/15 8:45 AM) *HI* (12/28/15 3:44 PM) eGFR 52 mL/min/1.73m2 1 52 mL/min/1.73m2 2 43 mL/min/1.73m2 3 *NA* *NA* *NA* (12/30/15 3:33 AM) (12/29/15 8:45 AM) (12/28/15 3:44 PM) BUN [7-22 mg/dL] 19 mg/dL 22 mg/dL 21 mg/dL (12/30/15 3:33 AM) (12/29/15 8:45 AM) (12/28/15 3:44 PM) B/C Ratio [6-25] 14 (12/28/15 3:44 PM) Glucose Lvl [70-99 mg/dL] 149 mg/dL 116 mg/dL 178 mg/dL *HI* *HI* *HI* (12/30/15 3:33 AM) (12/29/15 8:45 AM) (12/28/15 3:44 PM) Total Protein [6.4-8.4 g/dL] 6.9 g/dL (12/28/15 3:44 PM) Albumin Lvl [3.5-5.0 g/dL] 3.6 g/dL (12/28/15 3:44 PM) Globulin [2.0-4.0 g/dL] 3.3 g/dL (12/28/15 3:44 PM) A/G Ratio [0.7-1.6] 1.1 (12/28/15 3:44 PM) Calcium Lvl [8.5-10.5 mg/dL] 8.6 mg/dL 8.8 mg/dL 9.1 mg/dL (12/30/15 3:33 AM) (12/29/15 8:45 AM) (12/28/15 3:44 PM) Magnesium Lvl [1.8-2.4 2.1 mg/dL 2.0 mg/dL mg/dL] (12/30/15 3:33 AM) (12/29/15 8:45 AM) ALT [0-65 unit/L] 29 unit/L (12/28/15 3:44 PM) AST [0-37 unit/L] 30 unit/L (12/28/15 3:44 PM) Alk Phos [39-136 unit/L] 83 unit/L (12/28/15 3:44 PM) Bili Total [0.2-1.3 mg/dL] 0.9 mg/dL (12/28/15 3:44 PM) Lipase Lvl [73-393 unit/L] 73 unit/L (12/28/15 3:44 PM) 1Result Comment: The eGFR is calculated [...] 3 [Reference Range]: Total CK [12-191 unit/L] 157 unit/L 169 unit/L 180 unit/L (12/28/15 11:55 PM) (12/28/15 7:28 PM) (12/28/15 3:44 PM) CK MB [0.5-3.6 ng/mL] 5.9 ng/mL 6.5 ng/mL 8.8 ng/mL *HI* *HI* *HI* (12/28/15 11:55 PM) (12/28/15 7:28 PM) (12/28/15 3:44 PM) CK MB Index [0.0-2.5] 3.8 3.8 4.9 *HI* *HI* *HI* (12/28/15 11:55 PM) (12/28/15 7:28 PM) (12/28/15 3:44 PM) Troponin-I [0.00-0.40 0.47 ng/mL 0.71 ng/mL 1 0.69 ng/mL 2 ng/mL] *HI* *CRIT* *CRIT* (12/28/15 11:55 PM) (12/28/15 7:28 PM) (12/28/15 3:44 PM) BNP [<=100 pg/mL] 402 pg/mL *HI* (12/28/15 3:44 PM) 1Result Comment: Critical Result(s) called to Ghazal Michael RN at 12/28/2015 20:26 by LS. Read back OK.2Result Comment: Critical Result(s) called to Gris Caba RN at 12/28/2015 16:14 by LS. Read back OK.LIPIDS Most recent to oldest [Reference Range]: 1 2 3 CHD Risk [4.00-7.30] 4.68 (12/29/15 5:40 AM) Chol [<=199 mg/dL] 145 mg/dL (12/29/15 5:40 AM) Trig [<=149 mg/dL] 225 mg/dL *HI* (12/29/15 5:40 AM) HDL [>=61 mg/dL] 31 mg/dL *LOW* (12/29/15 5:40 AM) LDL (Calculated) [<=99 mg/dL] 69 mg/dL (12/29/15 5:40 AM) VLDL 45 *NA* (12/29/15 5:40 AM) HEMATOLOGY Most recent to oldest 1 2 3 [Reference Range]: WBC [3.7-10.4 K/CMM] 4.1 K/CMM 4.3 K/CMM 4.2 K/CMM (12/30/15 3:33 AM) (12/29/15 8:45 AM) (12/28/15 3:44 PM) RBC [4.70-6.10 M/CMM] 3.63 M/CMM 3.63 M/CMM 3.89 M/CMM *LOW* *LOW* *LOW* (12/30/15 3:33 AM) (12/29/15 8:45 AM) (12/28/15 3:44 PM) Hgb [14.0-18.0 g/dL] 11.3 g/dL 11.2 g/dL 12.0 g/dL *LOW* *LOW* *LOW* (12/30/15 3:33 AM) (12/29/15 8:45 AM) (12/28/15 3:44 PM) Hct [42.0-54.0 %] 33.8 % 33.6 % 36.1 % *LOW* *LOW* *LOW* (12/30/15 3:33 AM) (12/29/15 8:45 AM) (12/28/15 3:44 PM) MCV [80.0-94.0 fL] 93.2 fL 92.5 fL 92.8 fL (12/30/15 3:33 AM) (12/29/15 8:45 AM) (12/28/15 3:44 PM) MCH [27.0-31.0 pg] 31.2 pg 30.7 pg 30.7 pg *HI* (12/29/15 8:45 AM) (12/28/15 3:44 PM) (12/30/15 3:33 AM) MCHC [32.0-36.0 g/dL] 33.5 g/dL 33.2 g/dL 33.1 g/dL (12/30/15 3:33 AM) (12/29/15 8:45 AM) (12/28/15 3:44 PM) RDW [11.5-14.5 %] 14.7 % 14.6 % 14.7 % *HI* *HI* *HI* (12/30/15 3:33 AM) (12/29/15 8:45 AM) (12/28/15 3:44 PM) Platelet [133-450 K/CMM] 106 K/CMM 105 K/CMM 115 K/CMM *LOW* *LOW* *LOW* (12/30/15 3:33 AM) (12/29/15 8:45 AM) (12/28/15 3:44 PM) MPV [7.4-10.4 fL] 9.3 fL 9.5 fL 9.4 fL (12/30/15 3:33 AM) (12/29/15 8:45 AM) (12/28/15 3:44 PM) Segs [45.0-75.0 %] 58.6 % 66.2 % (12/30/15 3:33 AM) (12/28/15 3:44 PM) Lymphocytes [20.0-40.0 %] 26.5 % 22.1 % (12/30/15 3:33 AM) (12/28/15 3:44 PM) Monocytes [2.0-12.0 %] 10.3 % 7.9 % (12/30/15 3:33 AM) (12/28/15 3:44 PM) Eosinophils [0.0-4.0 %] 4.2 % 3.2 % *HI* (12/28/15 3:44 PM) (12/30/15 3:33 AM) Basophils [0.0-1.0 %] 0.4 % 0.6 % (12/30/15 3:33 AM) (12/28/15 3:44 PM) Segs-Bands # [1.5-8.1 2.4 K/CMM 2.8 K/CMM K/CMM] (12/30/15 3:33 AM) (12/28/15 3:44 PM) Lymphocytes # [1.0-5.5 1.1 K/CMM 0.9 K/CMM K/CMM] (12/30/15 3:33 AM) *LOW* (12/28/15 3:44 PM) Monocytes # [0.0-0.8 K/CMM] 0.4 K/CMM 0.3 K/CMM (12/30/15 3:33 AM) (12/28/15 3:44 PM) Eosinophils # [0.0-0.5 0.2 K/CMM 0.1 K/CMM K/CMM] (12/30/15 3:33 AM) (12/28/15 3:44 PM) PT [12.0-14.7 seconds] 13.9 seconds (12/28/15 3:44 PM) INR [0.85-1.17] 1.04 (12/28/15 3:44 PM) POC Activated Clotting Time 128 seconds *NA* (12/29/15 3:02 PM) PTT [22.9-35.8 seconds] 75.4 seconds 47.5 seconds 63.8 seconds *HI* *HI* *HI* (12/29/15 1:39 PM) (12/29/15 5:40 AM) (12/28/15 11:55 PM) Immunizations Given and Recorded Vaccine Date Status Refusal Reason pneumococcal 13-valent vaccine 12/29/15 Given Procedures Procedure Date Related Diagnosis Body Site Angioplasty CABG x 2 - Coronary artery bypass grafts x 2 Excision of gallbladder Social History Social History Type Response Alcohol Past Smoking Status Former smoker; Exposure to Tobacco Smoke None; Cigarette Smoking Last 365 Days No; Reg Smoking Cessation Counseling No Assessment and Plan Extracted from: Title: Cardiology Note * Author: Xuan Figueroa MD Date: 12/30/15 Patient: GILL MADERA Age: 80 years Sex: Male : 1935 Associated Diagnoses: None Author: Xuan Figueroa MD Subjective no cp, sob, n/v, headache tele: SR Objective Meds Scheduled Meds (13):aspirin (aspirin 325 mg tablet, enteric coated), carvedilol (Coreg), clopidogrel (Plavix), furosemide (furosemide 40 mg oral tablet), glimepiride, levothyroxine (Synthroid), losartan , non-formulary (rosuvastatin 10 mg tab), pantoprazole (Protonix), ranolazine ( Ran[place]), sodium chloride (Saline Flush 0.9%), spironolactone (Aldactone), tamsulosin Unscheduled Meds: None PRN Meds (18):Dextrose 50% in Water IV (Dextrose 50% Syringe), Dextrose 50% in Water IV (Dextrose 50% Syringe), acetaminophen-hydrocodone ([place] 7.5/325 oral tablet), acetaminophen, famotidine, glucagon , insulin aspart, insulin aspart, insulin aspart, insulin aspart, insulin aspart, insulin aspart, insulin aspart, insulin aspart, insulin aspart, nitroglycerin (nitroglycerin SL Tab), ondansetron (Zofran), sodium chloride ( Saline Flush 0.9%) One Time Meds: None Continuous Infusions: None I&O Input/Output Record In Out Bal 12/29 24hr Tot 250 0 250 12/28 24hr Tot 807 300 507 VS/Measurements Measurements from flowsheet : Measurements 12/30/2015 06:51 Heparin Dosing Weight (kg) 72.57 12/30/2015 06:51 Weight 82.273 kg Dosing Weight Difference Percent -1.416 % Dosing Weight Collection Method Measured 12/29/2015 04:48 Weight Collection Method Measured Current Weight 86.7 kg Weight Difference Percent 1.761 % , Vital Signs (last 24 hrs) Last Charted Temp Oral 98.0 DegF (DEC 29 12:) Heart Rate Peripheral 68 bpm (DEC 29:) Resp Rate 16 BRMIN (DEC 29:) SBP H 158mmHg (DEC 29:) DBP 67 mmHg (DEC 29 12:) SpO2 99 % (DEC 29:) Weight 82.273 kg (DEC 29 06:51) General: Alert and oriented, No acute distress. Eye: Extraocular movements are intact. HENT: Normocephalic. Neck: Supple, No jugular venous distention. Respiratory: Lungs are clear to auscultation, Respirations are non-labored, Breath sounds are equal. Cardiovascular: Normal rate, Regular rhythm, No murmur, No gallop, No edema, rt groin without hematoma or ecchymosis. Gastrointestinal: Soft, Non-tender, Non-distended, Normal bowel sounds. Integumentary: Warm. Neurologic: Alert, Oriented, No focal deficits. Psychiatric: Cooperative, Appropriate mood & affect. Review / Management Results review: Labs (Last four charted values) WBC 4.1 (DEC 29) 4.3 (DEC 28) 4.2 (DEC 27) Hgb L 11.3 (DEC 29) L 11.2 (DEC 28) L 12.0 (DEC 27) Hct L 33.8 (DEC 29) L 33.6 (DEC 28) L 36.1 (DEC 27) Plt L 106 (DEC 29) L 105 (DEC 28) L 115 (DEC 27) Na 145 (DEC 29) 143 (DEC 28) 139 (DEC 27) K 4.1 (DEC 29) 3.8 (DEC 28) 3.6 (DEC 27) CO2 30 (DEC 29) 27 (DEC 28) 29 (DEC 27) Cl 108 (DEC 29) 106 (DEC 28) 104 (DEC 27) Cr 1.28 (DEC 29) 1.28 (DEC 28) H 1.50 (DEC 27) BUN 19 (DEC 29) 22 (DEC 28) 21 (DEC 27) Glucose Random H 149 (DEC 29) H 116 (DEC 28) H 178 (DEC 27) Mg 2.1 (DEC 29) 2.0 (DEC 28) Ca 8.6 (DEC 29) 8.8 (DEC 28) 9.1 (DEC 27) PT 13.9 (DEC 27) INR 1.04 (DEC 27) PTT H 75.4 (DEC 28) H 47.5 (DEC 28) H 63.8 (DEC 27) 30.0 (DEC 27) Troponin H 0.47 (DEC 27) C 0.71 (DEC 27) C 0.69 (DEC 27) CK MB H 5.9 (DEC 27) H 6.5 (DEC 27) H 8.8 (DEC 27) Total CK 157 (DEC 27) 169 (DEC 27) 180 (DEC 27) . Impression and Plan ASSESSMENT: 1. Elevated troponins, question if this is demand ischemia from his underlying severe CAD or if this is progression of his disease, especially of his recent stent that he had put in. 2. Coronary artery disease with history of bypass with MARIE to LAD with severe anastomosis lesion not amenable to intervention, as was attempted in the past, and occluded graft, now status post risk PC I of his left main into the left circumflex and ramus. 3. Chronic systolic heart failure, ischemic cardiomyopathy, compensated, status post [place] ICD. 4. Essential hypertension 5. Diabetes. 6. Hypothyroidism. PLAN: - s/p PTCA of LCX and Ramus ISR. cont asa and plavix (d/w Dr Lugo - not changed to brilinta or effient as higher risk of bleeding with these and he's a [employer] witness) - cont ccurent meds including bbl. on lipitor at home which will be resumed - refer for cardiac rehab phase II as outpt Addendum by Xuan Figueroa MD on of note on sheathogram noted to have a 12/30/2015 12:15 small fistula[address] will get CT as outpt for further evaluation
--- OUTSIDE RECORDS SUMMARY | 2017-12-11 21:04 | XMS REPORT ---
:1935 Author Organization eClinicalWorks Care Team Providers Name Role Hugh WHITTINGTONPHYLLIS Provider Role Unavailable Allergies, Adverse Reactions, Alerts Substance Reaction Event Type N.K.D.A. Info Not Available Non Drug Allergy Encounters Encounter Location Date Established Patient [facility] Jun 25, 2014 [place] refill [facility] Aug 06, 2014 Unknown [facility] August 18, 2014 chest pain. 10/06 [facility] October 07, 2014 Established Patient [facility] December 17, 2013 STRESS TEST [facility] December 17, 2013 Established Patient [facility] Mar 19, 2014 Established Patient [facility] May 12, 2015 Established Patient [facility] Jan 18, 2015 possible heart attack [facility] May 11, 2015 chest pain [facility] December 28, 2015 Established Patient [facility] Apr 10, 2016 Pt in [facility] 05/18 [facility] May 18, 2015 [place] [facility] October 19, 2015 Problems Problem Type Condition ICD-9 Code Onset Dates Condition Status Assessment Presence 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 Assessment 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 [place] coronary artery with other forms of angina pectoris Assessment Presence of coronary angioplasty Z95.5 Active implant and graft Problem 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 Problem Presence 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 Problem Presence of coronary angioplasty Z95.5 Active implant and graft Problem Hyperlipidemia, unspecified E78.5 Active Problem Hypothyroidism, unspecified E03.9 Active Problem 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 [place] coronary artery with other forms of angina pectoris Problem 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 Assessment 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 Assessment Hyperlipidemia, unspecified E78.5 Active Assessment 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 Medications Medication Code System Code Instructions Start Date End Date Status Dosage carvedilol MULTUM 86959 3.125 orally 2 Active 2 tab(s) times a day tamsulosin MULTUM 85405 0.4 mg orally Active 1 cap(s) once a day nitroglycerin MULTUM 33117 0.4 mg Active 1 tab(s) sublingually every 5 minutes losartan MULTUM 10498 50 mg orally once Active 1 tab(s) a day Glumetza MULTUM 27249 500 mg orally 2 Active 1 tab(s) times a day ASA Unknown 0 81mg once a day Active 1 tab(s) clopidogrel MULTUM 13451 75 mg orally once Active 1 tab(s) a day Prilosec MULTUM 363 20 mg orally once Active 1 cap(s) a day Synthroid MULTUM 2205 200 mcg (0.2 mg) Active 1 tab(s) orally once a day spironolactone MULTUM 30620 25 mg orally 3 Active 1 tab(s) times a day furosemide MULTUM 18680 40 mg orally once Active 1 tab(s) a day atorvastatin MULTUM 97341 10 mg orally once Active 1 tab(s) a day (at bedtime) glimepiride MULTUM 42200 1 mg orally bid Active 1 tab(s) [place] MULTUM 50022 1000 mg orally 2 Active 1 tab(s) times a day Social History Social History Element Qualifiers Date Reported Caffeine: yes. 2 cups of coffee a day Apr 10, 2016 Tobacco Use: . Status: Former Smoker quit 22 yrs ago Apr 10, 2016 Alcohol: no. Apr 10, 2016 Vital Signs Date/Time: Apr 10, 2016 Blood Pressure Systolic 118 mm Hg Height 66 in Blood Pressure Diastolic 56 mm Hg Summary Purpose eClinicalWorks Submission
--- OUTSIDE RECORDS SUMMARY | 2017-12-11 21:04 | XMS REPORT | Summary of Care ---
:1935 Author Organization [facility] Address [address] [place], [place] [address]- Encounter HQ Criselda(LYNETTE) [id number] Date(s): 05/30/17 - 05/30/[address] [address]- Discharge Diagnosis: Chronic renal insufficiency Discharge Diagnosis: Chronic CHF Discharge Disposition: Home or Self Care Attending Physician: Shahzad Howard MD Referring Physician: Fatemeh Meyer NP Vital Signs Most recent to oldest 1 2 3 [Reference Range]: Height 170.18 cm (05/30/17 11:04 AM) Temperature Oral 98.1 DegF 97 DegF [96.4-99.1 DegF] (05/30/17 3:27 PM) (05/30/17 11:04 AM) Blood Pressure 132/68 mmHg 126/60 mmHg 146/63 mmHg [90-140/60-90 mmHg] (05/30/17 3:27 PM) (05/30/17 12:40 PM) *HI* (05/30/17 11:40 AM) Respiratory Rate [14-20 20 BRMIN 20 BRMIN 20 BRMIN BRMIN] (05/30/17 3:27 PM) (05/30/17 12:40 PM) (05/30/17 11:40 AM) Peripheral Pulse Rate 58 bpm 55 bpm 59 bpm [60-100 bpm] *LOW* *LOW* *LOW* (05/30/17 3:27 PM) (05/30/17 12:40 PM) (05/30/17 11:40 AM) Weight 83.182 kg (05/30/17 11:04 AM) Body Mass Index 28.72 m2 (05/30/17 11:04 AM) Problem List Condition Effective Dates Status Health Status Informant CAD (coronary atherosclerotic Active disease)(Confirmed) Heart failure(Confirmed) Active HTN (hypertension)(Confirmed) Resolved IA (myocardial Resolved infarction)(Confirmed) Allergies, Adverse Reactions, Alerts Substance Reaction Severity Status NKDA Active Medications Saline Flush 0.9% 10 mL, Route: IVP, Drug Form: INJ, Dosing Weight 83.182, kg, PRN, PRN Line Flush , Start date: 05/30/17 11:48:00 PROGRAM PRODUCTION SPECIALIST, Duration: 1 day, Stop date: 05/31/17 11:47: 00 PROGRAM PRODUCTION SPECIALIST Notes: (Same as: BD Posiflush) Start Date: 05/30/17 Stop Date: 05/30/17 Status: Discontinued Results ELECTROLYTES Most recent to oldest [Reference Range]: 1 Sodium Lvl [135-145 mEq/L] 140 mEq/L (05/30/17 12:25 PM) Potassium Lvl [3.5-5.1 mEq/L] 3.8 mEq/L (05/30/17 12:25 PM) Chloride Lvl [95-109 mEq/L] 106 mEq/L (05/30/17 12:25 PM) CO2 [24-32 mEq/L] 27 mEq/L (05/30/17 12:25 PM) AGAP [10.0-20.0 mEq/L] 10.8 mEq/L (05/30/17 12:25 PM) CHEM PANEL Most recent to oldest [Reference Range]: 1 Creatinine Lvl [0.50-1.40 mg/dL] 2.05 mg/dL *HI* (05/30/17 12:25 PM) eGFR 29 mL/min/1.73m2 1 *NA* (05/30/17 12:25 PM) BUN [7-22 mg/dL] 31 mg/dL *HI* (05/30/17 12:25 PM) B/C Ratio [6-25] 15 (05/30/17 12:25 PM) Glucose Lvl [70-99 mg/dL] 126 mg/dL *HI* (05/30/17 12:25 PM) Total Protein [6.4-8.4 g/dL] 6.4 g/dL (05/30/17 12:25 PM) Albumin Lvl [3.5-5.0 g/dL] 3.7 g/dL (05/30/17 12:25 PM) Globulin [2.7-4.2 g/dL] 2.7 g/dL (05/30/17 12:25 PM) A/G Ratio [0.7-1.6] 1.4 (05/30/17 12:25 PM) Calcium Lvl [8.5-10.5 mg/dL] 8.6 mg/dL (05/30/17 12:25 PM) ALT [0-65 unit/L] 30 unit/L (05/30/17 12:25 PM) AST [0-37 unit/L] 23 unit/L (05/30/17 12:25 PM) Alk Phos [39-136 unit/L] 89 unit/L (05/30/17 12:25 PM) Bili Total [0.2-1.3 mg/dL] 0.8 mg/dL (05/30/17 12:25 PM) 1Result Comment: The eGFR is calculated using the CKD-EPI formula. In most young , healthy individualsthe eGFR will be >90 mL/min/1.73m2. The eGFR declines with age. An eGFR of 60-89 may be normal insome populations, particularly the elderly, for whom the [...] estimated BMI.CARDIAC ENZYMES Most recent to oldest [Reference Range]: 1 Troponin-I [0.00-0.40 ng/mL] 0.02 ng/mL (05/30/17 12:25 PM) BNP [<=100 pg/mL] 1358 pg/mL *HI* (05/30/17 12:25 PM) HEMATOLOGY Most recent to oldest [Reference Range]: 1 WBC [3.7-10.4 K/CMM] 3.6 K/CMM *LOW* (05/30/17 12:25 PM) RBC [4.70-6.10 M/CMM] 3.64 M/CMM *LOW* (05/30/17 12:25 PM) Hgb [14.0-18.0 g/dL] 9.5 g/dL *LOW* (05/30/17 12:25 PM) Hct [42.0-54.0 %] 29.7 % *LOW* (05/30/17 12:25 PM) MCV [80.0-94.0 fL] 81.6 fL (05/30/17 12:25 PM) MCH [27.0-31.0 pg] 26.1 pg *LOW* (05/30/17 12:25 PM) MCHC [32.0-36.0 g/dL] 31.9 g/dL *LOW* (05/30/17 12:25 PM) RDW [11.5-14.5 %] 16.9 % *HI* (05/30/17 12:25 PM) Platelet [133-450 K/CMM] 98 K/CMM *LOW* (05/30/17 12:25 PM) MPV [7.4-10.4 fL] 9.3 fL (05/30/17 12:25 PM) Segs [45.0-75.0 %] 63.6 % (05/30/17 12:25 PM) Lymphocytes [20.0-40.0 %] 24.4 % (05/30/17 12:25 PM) Monocytes [2.0-12.0 %] 9.8 % (05/30/17 12:25 PM) Eosinophils [0.0-4.0 %] 1.8 % (05/30/17 12:25 PM) Basophils [0.0-1.0 %] 0.4 % (05/30/17 12:25 PM) Segs-Bands # [1.5-8.1 K/CMM] 2.3 K/CMM (05/30/17 12:25 PM) Lymphocytes # [1.0-5.5 K/CMM] 0.9 K/CMM *LOW* (05/30/17 12:25 PM) Monocytes # [0.0-0.8 K/CMM] 0.4 K/CMM (05/30/17 12:25 PM) Eosinophils # [0.0-0.5 K/CMM] 0.1 K/CMM (05/30/17 12:25 PM) PT [12.0-14.7 seconds] 14.7 seconds (05/30/17 12:25 PM) INR [0.85-1.17] 1.15 (05/30/17 12:25 PM) Immunizations Given and Recorded Vaccine Date Status Refusal Reason pneumococcal 13-valent vaccine 12/29/15 Given Procedures Procedure Date Related Diagnosis Body Site Angioplasty CABG x 2 - Coronary artery bypass grafts x 2 Excision of gallbladder Social History Social History Type Response Alcohol Past Smoking Status Former smoker; Type: Cigarettes; Exposure to Tobacco Smoke None ; Cigarette Smoking Last 365 Days No; Reg Smoking Cessation Counseling No; Started at age: 28.0; Stopped at age: 53; Assessment and Plan No data available for this section
--- OUTSIDE RECORDS SUMMARY | 2017-12-11 21:04 | XMS REPORT | Summary of Care ---
:1935 Author Organization [facility] Address [address] [place], [place] [address]- Encounter HQ Criselda(FIN) [phone] Date(s): 11/02/16 - 11/03/16 [facility] [address] [place] [address]- Discharge Disposition: Home or Self Care Attending Physician: Janeth Braxton MD Admitting Physician: Janeth Braxton MD Vital Signs Most recent to oldest 1 2 3 [Reference Range]: Height 172.72 cm 172.72 cm (11/02/16 8:30 PM) (11/02/16 2:06 PM) Temperature Oral [96.4-99.1 97.6 DegF 98.2 DegF 98.2 DegF DegF] (11/03/16 5:30 PM) (11/03/16 3:50 PM) (11/03/16 11:38 AM) Blood Pressure [90-140/60-90 120/64 mmHg 101/50 mmHg 121/56 mmHg mmHg] (11/03/16 5:30 PM) (11/03/16 3:50 PM) (11/03/16 11:38 AM) Respiratory Rate [14-20 18 BRMIN 18 BRMIN 18 BRMIN BRMIN] (11/03/16 3:50 PM) (11/03/16 11:38 AM) (11/03/16 7:00 AM) Peripheral Pulse Rate [60-100 66 bpm 68 bpm 65 bpm bpm] (11/03/16 5:30 PM) (11/03/16 3:50 PM) (11/03/16 11:38 AM) Weight 83.636 kg 85 kg (11/02/16 8:30 PM) (11/02/16 2:06 PM) Body Mass Index 28.04 m2 28.49 m2 (11/02/16 8:30 PM) (11/02/16 2:06 PM) Problem List Condition Effective Dates Status Health Status Informant CAD (coronary atherosclerotic Active disease)(Confirmed) Heart failure(Confirmed) Active HTN (hypertension)(Confirmed) Resolved UT (myocardial Resolved infarction)(Confirmed) Allergies, Adverse Reactions, Alerts Substance Reaction Severity Status NKDA Active Medications Aldactone 25 mg, 1 tab, Route: PO, Drug form: TAB, Daily, Dosing Weight 85, kg, Start date : 11/03/16 9:00:00 CDT, Duration: 30 day, Stop date: 12/02/16 9:00:00 CDT Notes: (Same As: Aldactone) Start Date: 11/03/16 Stop Date: 11/03/16 Status: Discontinuedapixaban 2.5 mg oral tablet 2.5 mg=1 tab, PO, Q12H, # 60 tab, 0 Refill(s) Start Date: 11/03/16 Status: Orderedaspirin 81 mg tablet, enteric coated 81 mg, 1 tab, Route: PO, Drug form: ECTAB, Daily, Dosing Weight 85, kg, Start date: 11/02/16 16:30:00 CDT, Duration: 30 day, Stop date: 12/02/16 9:00:00 CDT Notes: Do not crush or chew.(Same As: Ecotrin) Start Date: 11/02/16 Stop Date: 11/03/16 Status: DiscontinuedBenadryl 25 mg, 1 tab, Route: PO, Drug form: TAB, ONCE, Dosing Weight 83.636, kg, PRN Insomnia, Start date: 11/02/16 21:43:00 CDT Start Date: 11/02/16 Stop Date: 11/02/16 Status: Completedclopidogrel 75 mg, 1 tab, Route: PO, Drug form: TAB, Daily, Dosing Weight 85, kg, Start date : 11/02/16 16:30:00 CDT, Duration: 30 day, Stop date: 12/02/16 9:00:00 CDT Notes: (Same As: Plavix) Start Date: 11/02/16 Stop Date: 11/03/16 Status: DiscontinuedDextrose 50% Syringe 25 mL, Route: IVP, Dosing Weight 83.636, kg, PRN, PRN Blood Glucose Results, Start date: 11/02/16 21:49:00 CDT, Duration: 30 day, Stop date: 12/02/16 21:48: 00 CDT Start Date: 11/02/16 Stop Date: 11/02/16 Status: DeletedDextrose 50% Syringe 50 mL, Route: IVP, Dosing Weight 83.636, kg, PRN, PRN Blood Glucose Results, Start date: 11/02/16 21:49:00 CDT, Duration: 30 day, Stop date: 12/02/16 21:48: 00 CDT Start Date: 11/02/16 Stop Date: 11/02/16 Status: DeletedDextrose 50% Syringe 25 gm, 50 mL, Route: IVP, Drug Form: INJ, Dosing Weight 85, kg, PRN, PRN Blood Glucose Results, Start date: 11/02/16 14:36:00 CDT, Duration: 30 day, Stop date : 12/02/16 14:35:00 CDT Start Date: 11/02/16 Stop Date: 11/03/16 Status: DiscontinuedDextrose 50% Syringe 12.5 gm, 25 mL, Route: IVP, Drug Form: INJ, Dosing Weight 85, kg, PRN, PRN Blood Glucose Results, Start date: 11/02/16 14:36:00 CDT, Duration: 30 day, Stop date: 12/02/16 14:35:00 CDT Start Date: 11/02/16 Stop Date: 11/03/16 Status: DiscontinuedEliquis 2.5 mg, 1 tab, Route: PO, Drug form: TAB, Q12H, Dosing Weight 83.636, kg, Start date: 11/03/16 9:00:00 CDT, Duration: 30 day, Stop date: 12/02/16 21:00:00 CDT Notes: Same as: Eliquis Start Date: 11/03/16 Stop Date: 11/03/16 Status: DiscontinuedEliquis 5 mg, Route: PO, Drug form: TAB, Q12H, Dosing Weight 83.636, kg, Start date: 9:00:00 CDT, Duration: 30 day, Stop date: 12/02/16 21:00:00 CDT Start Date: 11/03/16 Stop Date: 11/03/16 Status: Canceledfurosemide 40 mg oral tablet 40 mg, 1 tab, Route: PO, Drug form: TAB, Daily, Dosing Weight 85, kg, Start date : 11/03/16 9:00:00 CDT, Duration: 30 day, Stop date: 12/02/16 9:00:00 CDT Notes: (Same as: Lasix) May cause GI upset. Give with food or milk. Start Date: 11/03/16 Stop Date: 11/03/16 Status: Discontinuedglimepiride 1 mg, Route: PO, Daily, Dosing Weight 85, kg, Start date: 11/03/16 9:00:00 CDT, Duration: 30 day, Stop date: 12/02/16 9:00:00 CDT Start Date: 11/03/16 Stop Date: 11/02/16 Status: Deletedglucagon 1 mg, Route: IM, PRN, Dosing Weight 83.636, kg, PRN Blood Glucose Results, Start date: 11/02/16 21:49:00 CDT, Duration: 30 day, Stop date: 12/02/16 21:48: 00 CDT Start Date: 11/02/16 Stop Date: 11/02/16 Status: Deletedglucagon 1 mg, Route: IM, Drug form: PDR/INJ, PRN, Dosing Weight 85, kg, PRN Blood Glucose Results, Start date: 11/02/16 14:36:00 CDT, Duration: 30 day, Stop date : 12/02/16 14:35:00 CDT Start Date: 11/02/16 Stop Date: 11/03/16 Status: DiscontinuedGlucotrol 5 mg, 1 tab, Route: PO, Drug form: TAB, Daily, Start date: 11/03/16 9:00:00 CDT , Duration: 30 day, Stop date: 12/02/16 9:00:00 CDT Notes: (Same as: Glucotrol) 30 min before meals. Start Date: 11/03/16 Stop Date: 11/03/16 Status: DiscontinuedhydrALAZINE 10 mg, 0.5 mL, Route: IVP, Drug form: INJ, Q4H, Dosing Weight 85, kg, PRN Hypertension, Start date: 11/02/16 16:38:00 CDT, Duration: 30 day, Stop date: 16:37:00 CDT Notes: (Same as: Apresoline)Push over 5 minutes Start Date: 11/02/16 Stop Date: 11/03/16 Status: Discontinuedinsulin aspart 3 unit, 0.03 mL, Route: SUB-Q, Drug form: SOLN, Bedtime, Dosing Weight 83.636, kg, PRN Blood GlucoseResults, Start date: 11/02/16 21:49:00 CDT, Duration: 30 day, Stop date: 12/02/16 21:48:00 CDT Notes: Roll in palms of hands gently; Do not shake vigorously. (Same as: NovoLOG)"single patient use only"WASTE: F/P - Black; E - Municipal Trash Bin Stable for 28 days at room temperature.Expires in days from Date Start Date: 11/02/16 Stop Date: 11/03/16 Status: Discontinuedinsulin aspart 4 unit, 0.04 mL, Route: SUB-Q, Drug form: SOLN, Bedtime, Dosing Weight 83.636, kg, PRN Blood GlucoseResults, Start date: 11/02/16 21:49:00 CDT, Duration: 30 day, Stop date: 12/02/16 21:48:00 CDT Notes: Roll in palms of hands gently; Do not shake vigorously. (Same as: NovoLOG)"single patient use only"WASTE: F/P - Black; E - Municipal Trash Bin Stable for 28 days at room temperature.Expires in days from Date Start Date: 11/02/16 Stop Date: 11/03/16 Status: Discontinuedinsulin aspart 2 unit, 0.02 mL, Route: SUB-Q, Drug form: SOLN, Bedtime, Dosing Weight 83.636, kg, PRN Blood GlucoseResults, Start date: 11/02/16 21:49:00 CDT, Duration: 30 day, Stop date: 12/02/16 21:48:00 CDT Notes: Roll in palms of hands gently; Do not shake vigorously. (Same as: NovoLOG)"single patient use only"WASTE: F/P - Black; E - Municipal Trash Bin Stable for 28 days at room temperature.Expires in days from Date Start Date: 11/02/16 Stop Date: 11/03/16 Status: Discontinuedinsulin aspart 1 unit, 0.01 mL, Route: SUB-Q, Drug form: SOLN, Bedtime, Dosing Weight 83.636, kg, PRN Blood GlucoseResults, Start date: 11/02/16 21:49:00 CDT, Duration: 30 day, Stop date: 12/02/16 21:48:00 CDT Notes: Roll in palms of hands gently; Do not shake vigorously. (Same as: Mobeon)"single patient use only"WASTE: F/P - Black; E - Municipal Trash Bin Stable for 28 days at room temperature.Expires in days from Date Start Date: 11/02/16 Stop Date: 11/03/16 Status: Discontinuedinsulin aspart 8 unit, Route: SUB-Q, TID-Before Meals, Dosing Weight 83.636, kg, PRN Blood Glucose Results, Start date: 11/02/16 21:49:00 CDT, Duration: 30 day, Stop date : 12/02/16 21:48:00 CDT Start Date: 11/02/16 Stop Date: 11/02/16 Status: Discontinuedinsulin aspart 10 unit, Route: SUB-Q, TID-Before Meals, Dosing Weight 83.636, kg, PRN Blood Glucose Results, Start date: 11/02/16 21:49:00 CDT, Duration: 30 day, Stop date : 12/02/16 21:48:00 CDT Start Date: 11/02/16 Stop Date: 11/02/16 Status: Discontinuedinsulin aspart 2 unit, Route: SUB-Q, TID-Before Meals, Dosing Weight 83.636, kg, PRN Blood Glucose Results, Start date: 11/02/16 21:49:00 CDT, Duration: 30 day, Stop date : 12/02/16 21:48:00 CDT Start Date: 11/02/16 Stop Date: 11/02/16 Status: Discontinuedinsulin aspart 4 unit, Route: SUB-Q, TID-Before Meals, Dosing Weight 83.636, kg, PRN Blood Glucose Results, Start date: 11/02/16 21:49:00 CDT, Duration: 30 day, Stop date : 12/02/16 21:48:00 CDT Start Date: 11/02/16 Stop Date: 11/02/16 Status: Discontinuedinsulin aspart 6 unit, Route: SUB-Q, TID-Before Meals, Dosing Weight 83.636, kg, PRN Blood Glucose Results, Start date: 11/02/16 21:49:00 CDT, Duration: 30 day, Stop date : 12/02/16 21:48:00 CDT Start Date: 11/02/16 Stop Date: 11/02/16 Status: Discontinuedinsulin aspart 5 unit, 0.05 mL, Route: SUB-Q, Drug form: SOLN, TID-Before Meals, Dosing Weight 85, kg, PRN Blood Glucose Results, Start date: 11/02/16 14:36:00 CDT, Duration: 30 day, Stop date: 12/02/16 14:35:00 CDT Notes: Roll in palms of hands gently; Do not shake vigorously. (Same as: Mobeon)"single patient use only"WASTE: F/P - Black; E - Municipal Trash Bin Stable for 28 days at room temperature.Expires in days from Date Start Date: 11/02/16 Stop Date: 11/03/16 Status: Discontinuedinsulin aspart 4 unit, 0.04 mL, Route: SUB-Q, Drug form: SOLN, TID-Before Meals, Dosing Weight 85, kg, PRN Blood Glucose Results, Start date: 11/02/16 14:36:00 CDT, Duration: 30 day, Stop date: 12/02/16 14:35:00 CDT Notes: Roll in palms of hands gently; Do not shake vigorously. (Same as: Mobeon)"single patient use only"WASTE: F/P - Black; E - Municipal Trash Bin Stable for 28 days at room temperature.Expires in days from Date Start Date: 11/02/16 Stop Date: 11/03/16 Status: Discontinuedinsulin aspart 3 unit, 0.03 mL, Route: SUB-Q, Drug form: SOLN, TID-Before Meals, Dosing Weight 85, kg, PRN Blood Glucose Results, Start date: 11/02/16 14:36:00 CDT, Duration: 30 day, Stop date: 12/02/16 14:35:00 CDT Notes: Roll in palms of hands gently; Do not shake vigorously. (Same as: ISHLOG)"single patient use only"WASTE: F/P - Black; E - Municipal Trash Bin Stable for 28 days at room temperature.Expires in days from Date Start Date: 11/02/16 Stop Date: 11/03/16 Status: Discontinuedinsulin aspart 2 unit, 0.02 mL, Route: SUB-Q, Drug form: SOLN, TID-Before Meals, Dosing Weight 85, kg, PRN Blood Glucose Results, Start date: 11/02/16 14:36:00 CDT, Duration: 30 day, Stop date: 12/02/16 14:35:00 CDT Notes: Roll in palms of hands gently; Do not shake vigorously. (Same as: NovoLOG)"single patient use only"WASTE: F/P - Black; E - Municipal Trash Bin Stable for 28 days at room temperature.Expires in days from Date Start Date: 11/02/16 Stop Date: 11/03/16 Status: Discontinuedinsulin aspart 1 unit, 0.01 mL, Route: SUB-Q, Drug form: SOLN, TID-Before Meals, Dosing Weight 85, kg, PRN Blood Glucose Results, Start date: 11/02/16 14:36:00 CDT, Duration: 30 day, Stop date: 12/02/16 14:35:00 CDT Notes: Roll in palms of hands gently; Do not shake vigorously. (Same as: NovoLOG)"single patient use only"WASTE: F/P - Black; E - Municipal Trash Bin Stable for 28 days at room temperature.Expires in days from Date Start Date: 11/02/16 Stop Date: 11/03/16 Status: DiscontinuedLipitor 10 mg, 1 tab, Route: PO, Drug form: TAB, Bedtime, Dosing Weight 85, kg, Start date: 11/02/16 21:00:00 CDT, Duration: 30 day, Stop date: 12/01/16 21:00:00 CDT Notes: (Same As: Lipitor) Start Date: 11/02/16 Stop Date: 11/03/16 Status: Discontinuedlosartan 50 mg, 1 tab, Route: PO, Drug form: TAB, Daily, Dosing Weight 85, kg, Start date : 11/03/16 9:00:00 CDT, Duration: 30 day, Stop date: 12/02/16 9:00:00 CDT Notes: (Same as: Cozaar) Start Date: 11/03/16 Stop Date: 11/03/16 Status: Discontinuedmetoprolol 5 mg/5 ml INJ 5 mg, 5 mL, Route: IVP, Drug form: INJ, Q4H, Dosing Weight 85, kg, PRN Tachycardia, Start date: 11/02/16 14:28:00 CDT, Duration: 30 day, Stop date: 14:27:00 CDT Notes: (Same as: Lopressor)Push over 2 minutes Start Date: 11/02/16 Stop Date: 11/03/16 Status: Discontinuedmorphine Sulfate 2 mg, 1 mL, Route: IVP, Drug form: INJ, Q4H, Dosing Weight 83.636, kg, PRN Pain Score 7-10, Start date: 11/02/16 21:45:00 CDT, Duration: 30 day, Stop date: 21:44:00 CDT Notes: (Same as:MORPhine Sulfate) Start Date: 11/02/16 Stop Date: 11/03/16 Status: DiscontinuedPrilosec 20 mg, Route: PO, Drug form: DRC, Bedtime, Dosing Weight 85, kg, Start date: 21:00:00 CDT, Duration: 30 day, Stop date: 12/01/16 21:00:00 CDT Start Date: 11/02/16 Stop Date: 11/02/16 Status: DeletedProtonix 40 mg, 1 tab, Route: PO, Drug form: ECTAB, Before Dinner, Start date: 11/02/16 16:30:00 CDT, Duration: 30 day, Stop date: 12/01/16 16:30:00 CDT Notes: Tablet should not be chewed or crushed.(Same as: Protonix) Start Date: 11/02/16 Stop Date: 11/03/16 Status: DiscontinuedRanexa 1,000 mg, 2 tab, Route: PO, Drug form: TAB, Q12H, Dosing Weight 85, kg, Start date: 11/02/16 21:00:00 CDT, Duration: 30 day, Stop date: 12/02/16 9:00:00 CDT Notes: Same as Ranexa"Do Not Crush" Start Date: 11/02/16 Stop Date: 11/03/16 Status: DiscontinuedSynthroid 200 microgram, 2 tab, Route: PO, Drug form: TAB, Q630AM, Dosing Weight 85, kg, Start date: 11/03/16 6:30:00 CDT, Duration: 30 day, Stop date: 12/02/16 6:30:00 CDT Notes: Take 1 hour before or 2 hours after meal; Enteral feeds may interefere with the absorption ofthis medication. (Same as:Levothroid, Synthroid) Start Date: 11/03/16 Stop Date: 11/03/16 Status: Discontinuedtamsulosin 0.4 mg, 1 cap, Route: PO, Drug form: CAP, Daily, Dosing Weight 85, kg, Start date: 11/03/16 9:00:00 CDT, Duration: 30 day, Stop date: 12/02/16 9:00:00 CDT Notes: (Same As: Flomax) "Do Not Crush" Start Date: 11/03/16 Stop Date: 11/03/16 Status: DiscontinuedToprol-XL 25 mg oral tablet, extended release 25 mg=1 tab, PO, Q12H, # 60 tab, 0 Refill(s) Start Date: 11/03/16 Status: OrderedToprol-XL 25 mg oral tablet, extended release 25 mg, 1 tab, Route: PO, Drug form: ERTAB, Q12H, Start date: 11/02/16 21:00:00 CDT, Duration: 30 day, Stop date: 12/02/16 9:00:00 CDT Notes: (Same as: Toprol XL) Do Not Crush Start Date: 11/02/16 Stop Date: 11/03/16 Status: DiscontinuedToprol-XL 25 mg oral tablet, extended release 25 mg, 1 tab, Route: PO, Drug form: ERTAB, Daily, Start date: 11/02/16 16:30:00 CDT, Duration: 30 day, Stop date: 12/02/16 9:00:00 CDT Notes: (Same as: Toprol XL) Do Not Crush Start Date: 11/02/16 Stop Date: 11/02/16 Status: DiscontinuedToprol-XL 25 mg oral tablet, extended release 12.5 mg, PO, Daily, 0 Refill(s) Start Date: 11/02/16 Stop Date: 11/03/16 Status: Discontinued Results ELECTROLYTES Most recent to oldest [Reference Range]: 1 2 3 4 Sodium Lvl [135-145 mEq/L] 139 mEq/L 138 mEq/L (11/03/16 1:19 PM) (11/02/16 4:44 PM) Potassium Lvl [3.5-5.1 mEq/L] 3.9 mEq/L 3.6 mEq/L (11/03/16 1:19 PM) (11/02/16 4:44 PM) Chloride Lvl [95-109 mEq/L] 105 mEq/L 104 mEq/L (11/03/16 1:19 PM) (11/02/16 4:44 PM) CO2 [24-32 mEq/L] 27 mEq/L 24 mEq/L (11/03/16 1:19 PM) (11/02/16 4:44 PM) AGAP [10.0-20.0 mEq/L] 10.9 mEq/L 13.6 mEq/L (11/03/16 1:19 PM) (11/02/16 4:44 PM) CHEM PANEL Most recent to oldest [Reference Range]: 1 2 3 4 Creatinine Lvl [0.50-1.40 mg/dL] 1.54 mg/dL 1.60 mg/dL *HI* *HI* (11/03/16 1:19 PM) (11/02/16 4:44 PM) eGFR 41 mL/min/1.73m2 1 39 mL/min/1.73m2 2 *NA* *NA* (11/03/16 1:19 PM) (11/02/16 4:44 PM) BUN [7-22 mg/dL] 20 mg/dL 21 mg/dL (11/03/16 1:19 PM) (11/02/16 4:44 PM) B/C Ratio [6-25] 13 (11/02/16 4:44 PM) Glucose Lvl [70-99 mg/dL] 165 mg/dL 320 mg/dL *HI* *HI* (11/03/16 1:19 PM) (11/02/16 4:44 PM) Total Protein [6.4-8.4 g/dL] 6.3 g/dL *LOW* (11/02/16 4:44 PM) Albumin Lvl [3.5-5.0 g/dL] 3.4 g/dL *LOW* (11/02/16 4:44 PM) Globulin [2.7-4.2 g/dL] 2.9 g/dL (11/02/16 4:44 PM) A/G Ratio [0.7-1.6] 1.2 (11/02/16 4:44 PM) Calcium Lvl [8.5-10.5 mg/dL] 8.5 mg/dL 8.5 mg/dL (11/03/16 1:19 PM) (11/02/16 4:44 PM) Phosphorus [2.5-4.5 mg/dL] 4.1 mg/dL (11/03/16 4:40 AM) Magnesium Lvl [1.8-2.4 mg/dL] 1.9 mg/dL 1.9 mg/dL (11/03/16 4:40 AM) (11/02/16 4:44 PM) ALT [0-65 unit/L] 28 unit/L (11/02/16 4:44 PM) AST [0-37 unit/L] 17 unit/L (11/02/16 4:44 PM) Alk Phos [39-136 unit/L] 89 unit/L (11/02/16 4:44 PM) Bili Total [0.2-1.3 mg/dL] 0.8 mg/dL (11/02/16 4:44 PM) 1Result Comment: The eGFR is calculated [...] Most recent to oldest 1 2 3 4 [Reference Range]: Total CK [12-191 68 unit/L 65 unit/L 64 unit/L 64 unit/L unit/L] (11/03/16 12:53 AM) (11/02/16 8:38 PM) (11/02/16 4:44 PM) (11/02/16 4: 44 PM) Troponin-I [0.00-0.40 0.04 ng/mL 0.04 ng/mL 0.04 ng/mL 0.05 ng/mL ng/mL] (11/03/16 12:53 AM) (11/02/16 8:38 PM) (11/02/16 4:44 PM) (11/02/16 4: 44 PM) BNP [<=100 pg/mL] 720 pg/mL 626 pg/mL *HI* *HI* (11/03/16 4:40 AM) (11/02/16 5:04 PM) LIPIDS Most recent to oldest [Reference Range]: 1 2 3 4 CHD Risk [4.00-7.30] 3.03 *LOW* (11/03/16 4:40 AM) Chol [<=199 mg/dL] 97 mg/dL (11/03/16 4:40 AM) Trig [<=149 mg/dL] 129 mg/dL (11/03/16 4:40 AM) HDL [>=61 mg/dL] 32 mg/dL *LOW* (11/03/16 4:40 AM) LDL (Calculated) [<=99 mg/dL] 39 mg/dL (11/03/16 4:40 AM) VLDL 26 *NA* (11/03/16 4:40 AM) SPECIAL CHEMISTRY Most recent to oldest [Reference Range]: 1 2 3 4 Hgb A1C [<=5.6 %] 7.4 % *HI* (11/02/16 4:44 PM) HEMATOLOGY Most recent to oldest [Reference Range]: 1 2 3 4 WBC [3.7-10.4 K/CMM] 3.6 K/CMM *LOW* (11/02/16 4:44 PM) RBC [4.70-6.10 M/CMM] 3.45 M/CMM *LOW* (11/02/16 4:44 PM) Hgb [14.0-18.0 g/dL] 10.5 g/dL *LOW* (11/02/16 4:44 PM) Hct [42.0-54.0 %] 30.8 % *LOW* (11/02/16 4:44 PM) MCV [80.0-94.0 fL] 89.3 fL (11/02/16 4:44 PM) MCH [27.0-31.0 pg] 30.6 pg (11/02/16 4:44 PM) MCHC [32.0-36.0 g/dL] 34.2 g/dL (11/02/16 4:44 PM) RDW [11.5-14.5 %] 13.8 % (11/02/16 4:44 PM) Platelet [133-450 K/CMM] 97 K/CMM *LOW* (11/02/16 4:44 PM) MPV [7.4-10.4 fL] 9.8 fL (11/02/16 4:44 PM) Segs [45.0-75.0 %] 66.4 % (11/02/16 4:44 PM) Lymphocytes [20.0-40.0 %] 24.2 % (11/02/16 4:44 PM) Monocytes [2.0-12.0 %] 7.1 % (11/02/16 4:44 PM) Eosinophils [0.0-4.0 %] 1.9 % (11/02/16 4:44 PM) Basophils [0.0-1.0 %] 0.4 % (11/02/16 4:44 PM) Segs-Bands # [1.5-8.1 K/CMM] 2.4 K/CMM (11/02/16 4:44 PM) Lymphocytes # [1.0-5.5 K/CMM] 0.9 K/CMM *LOW* (11/02/16 4:44 PM) Monocytes # [0.0-0.8 K/CMM] 0.3 K/CMM (11/02/16 4:44 PM) Eosinophils # [0.0-0.5 K/CMM] 0.1 K/CMM (11/02/16 4:44 PM) Immunizations Given and Recorded Vaccine Date [...] No Assessment and Plan Extracted from: Title: discharge summary Author: Abelino Fernandez MD Date: 11/03/16 Discharge Plan 1. New onset atrial fibrillation: Pt was seen by cardiology during hospital stay. Pt was started on eliquis 2.5 mg po bid. Pt had ICD interogated. 2. Chest pain: Pt admitted with chest tiburcio. pain improved during hospital stay. 3. Coronary artery disease; pt was started on aspirin and plavix during hospital stay. 4. Type 2 diabetes mellitus: Blood sugars are monitored during hospital stay. Continue metformin and glimiperide. 5. 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 Eye: Negative. Ear/Nose/Mouth/Throat: Negative. Respiratory: Negative. Cardiovascular: Negative. Gastrointestinal: Negative. Genitourinary: Negative. Integumentary: Negative. Neurologic: Negative. Psychiatric: Negative. Health Status Allergies: Allergic Reactions (All) Severity Not Documented NKDA- No reactions were documented. Problem list: All Problems CAD (coronary atherosclerotic disease) / SNOMED CT [id number] / Confirmed Heart failure / SNOMED CT [id number] / Confirmed Resolved: HTN (hypertension) / SNOMED CT [id number] Resolved: UT (myocardial infarction) / SNOMED CT [id number] Objective Meds Scheduled Meds (12):aspirin (aspirin 81 mg tablet, enteric coated), atorvastatin (Lipitor), clopidogrel, furosemide (furosemide 40 mg oral tablet), glipiZIDE (Glucotrol), levothyroxine (Synthroid), losa rtan, metoprolol (Toprol-XL 25 mg oral tablet, extended release), pantoprazole (Protonix), ranolazine (Ranexa), spironolactone (Aldactone), tamsulosin Unscheduled Meds: None PRN Meds (15):Dextrose 50% in Water IV (Dextrose 50% Syringe), Dextrose 50% in Water IV (Dextrose 50% Syringe), glucagon, hydrALAZINE, insulin aspart, insulin aspart, insulin aspart, insulin aspart, ins ulin aspart, insulin aspart, insulin aspart, insulin aspart, insulin aspart, metoprolol (metoprolol 5 mg/5 ml INJ), morphine Sulfate One Time Meds: None Continuous Infusions: None I&O Input/Output Record In Out Bal 11/02 24hr Tot 800 0 800 11/01 24hr Tot 0 0 0 VS/Measurements Measurements from flowsheet : Measurements 11/02/2016 20:30 Heparin Dosing Weight (kg) 74.49 11/02/2016 20:30 Height 172.72 cm Height Collection Method Stated Weight 83.636 kg Dosing Weight Difference Percent -1.605 % Dosing Weight Collection Method Measured Body Surface Area 2.0032 m2 Body Mass Index 28.04 m2 11/02/2016 14:07 Heparin Dosing Weight (kg) 75.04 11/02/2016 14:06 Height 172.72 cm Height Collection Method Stated Weight 85 kg Dosing Weight Difference Percent 3.315 % Dosing Weight Collection Method Measured Body Surface Area 2.0194 m2 Body Mass Index 28.49 m2 , Vital Signs (last 24 hrs) Last Charted Temp Oral 98.1 DegF (NOVEMBER 03 07:00) Heart Rate Peripheral 68 bpm (NOVEMBER 03:) Resp Rate 18 BRMIN (NOVEMBER 03:00) SBP 114 mmHg (NOVEMBER 03:) DBP 64 mmHg (NOVEMBER 03:) SpO2 97 % (NOVEMBER 03:) Weight 83.636 kg (NOVEMBER 02 20:30) Height 172.72 cm (NOVEMBER 02:30) BMI 28.04 (NOVEMBER 02:) General: Alert and oriented, No acute distress. HENT: Normocephalic, Oral mucosa is moist. Neck: Supple, No jugular venous distention. Respiratory: decreased BS bibasilarly. Cardiovascular: Regular rhythm, S1, S2, No edema. Gastrointestinal: Soft, Non-tender, Non-distended. Integumentary: Warm. Neurologic: Alert, Oriented, No focal deficits. Psychiatric: Cooperative. Review / Management Results review: Labs (Last four charted values) WBC L 3.6 (NOVEMBER 02) Hgb L 10.5 (NOVEMBER 02) Hct L 30.8 (NOVEMBER 02) Plt L 97 (NOVEMBER 02) Na 138 (NOVEMBER 02) K 3.6 (NOVEMBER 02) CO2 24 (NOVEMBER 02) Cl 104 (NOVEMBER 02) Cr H 1.60 (NOVEMBER 02) BUN 21 (NOVEMBER 02) Glucose Random H 320 (NOVEMBER 02) Mg 1.9 (NOVEMBER 02) Ca 8.5 (NOVEMBER 02) Troponin 0.04 (NOVEMBER 03) 0.04 (NOVEMBER 02) 0.05 (NOVEMBER 02) 0.04 (NOVEMBER 02) Total CK 68 (NOVEMBER 03) 65 (NOVEMBER 02) 64 (NOVEMBER 02) 64 (NOVEMBER 02) . Impression and Plan -1. Paroxysmal atrial fibrillation. Currently, he is in sinus rhythm. Cont BBL. Had long d/w pt regarding his stroke risk and NOAC and he agrees to start ; d/w pt risks,benef, alternatives and he und erstands. Will start Eliquis 2.5 mg p.o. b.i.d. Awaiting ICD interrogation; also check echo. Continue to monitor on telemetry. 2. Coronary artery disease, status post coronary bypass graft and multiple PCIs in the past. Continue with dual antiplatelet therapy with aspirin and Plavix. 3. Presence of coronary artery bypass graft. Continue medical management 4. Presence of cardiac stenting. Continue dual antiplatelet therapy will need a 1-year of dual antiplatelet therapy starting from 08/19/2016 and continue statin and beta [place] therapy. 5. Chronic systolic heart failure with last known EF of 30% to 35%, status post [employer] ICD placement. We will have his ICD interrogated. He clinically appears euvolemic. The patient was seen and examined by me with the resident/ROLL WEIGHER/PA and I agree with the History/Exam documented. Addendum by Juan Carlos Cuevas MD on ICD interrogation revealed nl device fxn ; 11/03/2016 15:24 runs of NSVT likely atrial driven; echo unchanged from prior; OK to d/c per cardiol and he will f/u Dr. Fierro Extracted from: Title: Cardiology Consultation Author: Blaine Cortez MD Date: 11/02/16 Full Consult Note dictated [id number]
--- OUTSIDE RECORDS SUMMARY | 2017-12-11 21:04 | XMS REPORT | Summary of Care ---
:1935 Author Organization [facility] Address [address] [address]- Encounter HQ Criselda(FIN) [phone] Date(s): 08/06/17 - 08/06/17 [place] [address]- Encounter Diagnosis Anger reaction (Discharge Diagnosis) - 08/06/17 Dementia (Discharge Diagnosis) - 08/06/17 Irritability and anger (Final) - 08/13/17 Unspecified dementia without behavioral disturbance (Final) - Laceration without foreign body of left elbow, initial encounter (Final) - Abrasion of scalp, initial encounter (Final) - Abrasion of right forearm, initial encounter (Final) - Striking against other stationary object, initial encounter (Final) - Essential (primary) hypertension (Final) - Atherosclerotic heart disease of [place] coronary artery without angina pectoris (Final) - 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) - Personal history of nicotine dependence (Final) - Encounter for immunization (Final) - Discharge Disposition: Intermediate Care Attending Physician: Vanda Romero MD Vital Signs Most recent to oldest 1 2 3 [Reference Range]: Height 177.8 cm (08/06/17 1:04 AM) Temperature Oral [96.4-99.1 97.6 DegF DegF] (08/06/17 1:04 AM) Blood Pressure [90-140/60-90 131/62 mmHg 131/62 mmHg 121/64 mmHg mmHg] (08/06/17 3:30 AM) (08/06/17 3:00 AM) (08/06/17 2:11 AM) Respiratory Rate [14-20 BRMIN] 19 BRMIN 18 BRMIN 19 BRMIN (08/06/17 3:30 AM) (08/06/17 3:00 AM) (08/06/17 2:11 AM) Peripheral Pulse Rate [60-100 68 bpm bpm] (08/06/17 1:04 AM) Weight 90.909 kg (08/06/17 1:04 AM) Body Mass Index 28.76 m2 (08/06/17 1:04 AM) Problem List Condition Effective Dates Status Health Status Informant CAD (coronary atherosclerotic Active disease)(Confirmed) Heart failure(Confirmed) Active HTN (hypertension)(Confirmed) Resolved [place] (myocardial Resolved infarction)(Confirmed) Allergies, Adverse Reactions, Alerts Substance Reaction Severity Status NKDA Active Medications Saline Flush 0.9% 10 mL, Route: IVP, Drug Form: INJ, Dosing Weight 83.182, kg, PRN, PRN Line Flush , Start date: 08/06/17 1:02:00 [place] DRIER OPERATOR, Duration: 30 day, Stop date: 09/05/17 2:01: 00 CDT Notes: Same as: BD Posiflush Sterile Start Date: 08/06/17 Stop Date: 08/06/17 Status: Discontinued Results ELECTROLYTES Most recent to oldest [Reference Range]: 1 Sodium Lvl [135-145 mEq/L] 136 mEq/L (08/06/17 1:09 AM) Potassium Lvl [3.5-5.1 mEq/L] 4.0 mEq/L (08/06/17 1:09 AM) Chloride Lvl [95-109 mEq/L] 102 mEq/L (08/06/17 1:09 AM) CO2 [24-32 mEq/L] 25 mEq/L (08/06/17 1:09 AM) AGAP [10.0-20.0 mEq/L] 13.0 mEq/L (08/06/17 1:09 AM) CHEM PANEL Most recent to oldest [Reference Range]: 1 Creatinine Lvl [0.50-1.40 mg/dL] 1.81 mg/dL *HI* (08/06/17 1:09 AM) eGFR 34 mL/min/1.73m2 1 *NA* (08/06/17 1:09 AM) BUN [7-22 mg/dL] 38 mg/dL *HI* (08/06/17 1:09 AM) B/C Ratio [6-25] 21 (08/06/17 1:09 AM) Glucose Lvl [70-99 mg/dL] 246 mg/dL *HI* (08/06/17 1:09 AM) Total Protein [6.4-8.4 g/dL] 6.7 g/dL (08/06/17 1:09 AM) Albumin Lvl [3.5-5.0 g/dL] 3.5 g/dL (08/06/17 1:09 AM) Globulin [2.7-4.2 g/dL] 3.2 g/dL (08/06/17 1:09 AM) A/G Ratio [0.7-1.6] 1.1 (08/06/17 1:09 AM) Calcium Lvl [8.5-10.5 mg/dL] 8.5 mg/dL (08/06/17 1:09 AM) ALT [0-65 unit/L] 29 unit/L (08/06/17 1:09 AM) AST [0-37 unit/L] 28 unit/L (08/06/17 1:09 AM) Alk Phos [39-136 unit/L] 134 unit/L (08/06/17 1:09 AM) Bili Total [0.2-1.3 mg/dL] 0.8 mg/dL (08/06/17 1:09 AM) 1Result Comment: The eGFR is calculated using [...] eGFR should be multiplied by the estimated BMI.URINE AND STOOL Most recent to oldest [Reference Range]: 1 UA Turbidity [Clear] Clear (08/06/17 2:20 AM) UA Color [Yellow] Yellow *NA* (08/06/17 2:20 AM) UA pH [5.0-8.0] 5.0 (08/06/17 2:20 AM) UA Spec Grav [<=1.030] 1.006 (08/06/17 2:20 AM) UA Glucose [Negative mg/dL] Negative mg/dL *NA* (08/06/17 2:20 AM) UA Blood [Negative] Negative (08/06/17 2:20 AM) UA Ketones [Negative mg/dL] Negative mg/dL *NA* (08/06/17 2:20 AM) UA Protein [Negative mg/dL] Negative mg/dL (08/06/17 2:20 AM) UA Urobilinogen [0.1-1.0 mg/dL] <=1.0 mg/dL *NA* (08/06/17 2:20 AM) UA Bili [Negative] Negative *NA* (08/06/17 2:20 AM) UA Leuk Est [Negative] Negative (08/06/17 2:20 AM) UA Nitrite [Negative] Negative (08/06/17 2:20 AM) UA WBC [0-5 /HPF] 1 /HPF (08/06/17 2:20 AM) UA RBC [0-2 /HPF] 1 /HPF (08/06/17 2:20 AM) UA Sq Epi [Few /LPF] Occasional /LPF *NA* (08/06/17 2:20 AM) UA Mucus [None Seen /LPF] Few /LPF *NA* (08/06/17 2:20 AM) HEMATOLOGY Most recent to oldest [Reference Range]: 1 WBC [3.7-10.4 K/CMM] 4.8 K/CMM (08/06/17 1:09 AM) RBC [4.70-6.10 M/CMM] 4.08 M/CMM *LOW* (08/06/17 1:09 AM) Hgb [14.0-18.0 g/dL] 9.7 g/dL *LOW* (08/06/17 1:09 AM) Hct [42.0-54.0 %] 30.4 % *LOW* (08/06/17 1:09 AM) MCV [80.0-94.0 fL] 74.5 fL *LOW* (08/06/17 1:09 AM) MCH [27.0-31.0 pg] 23.8 pg *LOW* (08/06/17 1:09 AM) MCHC [32.0-36.0 g/dL] 31.9 g/dL *LOW* (08/06/17 1:09 AM) RDW [11.5-14.5 %] 18.4 % *HI* (08/06/17 1:09 AM) MPV [7.4-10.4 fL] 9.3 fL (08/06/17 1:09 AM) Platelet [133-450 K/CMM] 135 K/CMM (08/06/17 1:09 AM) Segs [45.0-75.0 %] 70.6 % (08/06/17 1:09 AM) Lymphocytes [20.0-40.0 %] 15.8 % *LOW* (08/06/17 1:09 AM) Monocytes [2.0-12.0 %] 8.5 % (08/06/17 1:09 AM) Eosinophils [0.0-4.0 %] 4.6 % *HI* (08/06/17 1:09 AM) Basophils [0.0-1.0 %] 0.5 % (08/06/17 1:09 AM) Segs-Bands # [1.5-8.1 K/CMM] 3.4 K/CMM (08/06/17 1:09 AM) Lymphocytes # [1.0-5.5 K/CMM] 0.8 K/CMM *LOW* (08/06/17 1:09 AM) Monocytes # [0.0-0.8 K/CMM] 0.4 K/CMM (08/06/17 1:09 AM) Eosinophils # [0.0-0.5 K/CMM] 0.2 K/CMM (08/06/17 1:09 AM) Microcyte [None Seen] 1+ *ABN* (08/06/17 1:09 AM) PT [12.0-14.7 seconds] 14.6 seconds (08/06/17 1:09 AM) INR [0.85-1.17] 1.14 (08/06/17 1:09 AM) PTT [22.9-35.8 seconds] 30.0 seconds (08/06/17 1:09 AM) Immunizations Given and Recorded Vaccine Date Status Refusal Reason diphtheria/pertussis, acel/tetanus adult 08/06/17 Given pneumococcal 13-valent vaccine 12/29/15 Given Procedures Procedure Date Related Diagnosis Body Site Status Angioplasty Completed CABG x 2 - Coronary artery bypass grafts x Completed 2 Excision of gallbladder Completed Social History Social History Type Response Alcohol Past Smoking Status Former smoker; Type: Cigarettes; Exposure to Tobacco Smoke None ; Cigarette Smoking Last 365 Days No; Reg Smoking Cessation Counseling No; Started [age] age: 28.0; Stopped at age: 53; entered on: 08/06/17 Assessment and Plan No data available for this section
--- NOTE | 2017-12-11 22:04 | RAD REPORT ---
EXAM DESCRIPTION: CT - Head C Spine Mpr Wo Con - 12/11/2017 9:49 pm CLINICAL HISTORY: Head and neck injury status post fall. Head and neck pain COMPARISON: None. TECHNIQUE: Computed axial tomography of the head and cervical spine was obtained. Sagittal and coronal reconstruction was performed. All CT scans are performed using dose optimization technique as appropriate and may include automated exposure control or mA/KV adjustment according to patient size. FINDINGS: An intracranial bleed is not seen. Prominent arterial calcifications are seen. The ventricles are normal in caliber. An extra-axial fluid collection is not noted.Fluid within the v isualized sinuses and mastoids is not seen A cervical fracture is not visualized. No dislocation is noted. Slight anterior subluxation of C4 on C5,C5 on C6 and C6 on C7 is present. Soft tissue swelling is not seen. This probably is chronic. IMPRESSION: No acute intracranial abnormality is seen. A cervical fracture is not visualized. If the patient continues to have symptoms to suggest intracra nial /spinal cord/ligamentous pathology then MRI would be recommended
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
[2017-12-11] MEDS ORDERED: TETANUS & DIPHTHERIA TOX,ADULT 0.5 ML VIAL ONE (23:13)
[2017-12-12 00:43] VITALS: TEMP 98.3; O2SAT 100
[2017-12-12 00:46] VITALS: BP 122/56
== END 2017-12-12 00:40 | disposition home or self-care (01) ==
LOC: ER 20:50
DX: S00.93XA Contusion of unspecified part of head, initial encounter (principal); Y04.2XXA Assault by strike against or bumped into by another person, initial encounter; Y93.89 Activity, other specified; Y92.129 Unspecified place in nursing home as the place of occurrence of the external cause; I10 Essential (primary) hypertension; E11.9 Type 2 diabetes mellitus without complications; E03.9 Hypothyroidism, unspecified; E78.5 Hyperlipidemia, unspecified; I48.91 Unspecified atrial fibrillation; F03.90 Unspecified dementia, unspecified severity, without behavioral disturbance, psychotic disturbance, mood disturbance, and anxiety
CPT/HCPCS: 70450; 72125; 90714; 99285

== ENCOUNTER 2017-12-30 21:21 | Observation (INO) | payer OTHER ==
--- OUTSIDE RECORDS SUMMARY | 2017-12-30 21:23 | XMS REPORT | Clinical Summary ---
:1935 Author Organization [facility] Address [address] [place] [address] Phone Care Team Providers Name Role Phone Unavailable Primary Care Provider Unavailable Allergies No Known Allergies Current Medications Prescription Sig. Disp. Refills Start Date End Date Status glimepiride (AMARYL) 2 MG Take 2 mg by mouth Active tablet every morning before breakfast. isosorbide dinitrate Take 20 mg by Active (ISORDIL) 20 MG tablet mouth 2 (two) times daily. SITagliptin (JANUVIA) 50 Take 50 mg by Active MG tablet mouth daily. furosemide (LASIX) 40 MG Take 40 mg by Active tablet mouth 2 (two) times daily. levothyroxine (SYNTHROID, Take 200 mcg by Active LEVOTHROID) 200 MCG tablet mouth Every morning on an empty stomach. losartan (COZAAR) 25 MG Take 25 mg by Active tablet mouth daily. omeprazole (PRILOSEC) 20 Take 20 mg by Active MG capsule mouth daily. risperiDONE (RISPERDAL) Take 0.25 mg by Active 0.25 MG tablet mouth daily Take am daily . risperiDONE (RISPERDAL) Take 0.5 mg by Active 0.5 MG tablet mouth daily Take at 5 pm . spironolactone (ALDACTONE) Take 25 mg by Active 25 MG tablet mouth daily. lactulose (CHRONULAC) 10 Take 20 g by mouth Active gram/15 mL (15 mL) nightly. solution ranolazine (RANEXA) 1,000 Take 500 mg by Active mg SR tablet mouth 2 (two) times daily. tamsulosin (FLOMAX) 0.4 mg Take 0.4 mg by Active Cp24 24 hr capsule mouth daily. rivastigmine (EXELON) 13.[address] Place onto the Active mg/24 hour PT24 skin. metoprolol (TOPROL-XL) 25 Take 25 mg by Active MG 24 hr tablet mouth 2 (two) times daily. clopidogrel (PLAVIX) 75 mg Take 75 mg by Active tablet mouth daily. atorvastatin (LIPITOR) 80 Take 80 mg by Active MG tablet mouth daily At bedtime . 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 12/20/2017 Encounters Date Type Specialty Care Team Description 12/20/2017 Hospital Encounter Dwayne Flores, ICD (implantable MD cardioverter-defibrillator ) battery depletion 12/20/2017 Procedure Pass 12/20/2017 Surgery Dwayne Flores AICD GENERATOR - REMOVE & MD REPLACE (SINGLE LEAD) 12/17/2017 Orders Only Dwayne Flores MD 12/17/2017 Procedure Pass after 12/29/2016 Social History Tobacco Use Types Packs/Day Years Used Date Former Smoker Smokeless Tobacco: Never Used Alcohol Use Drinks/Week oz/Week Comments No Sex Assigned at Date Recorded Not on file Last Filed Vital Signs Vital Sign Reading Time Taken Blood Pressure 153/70 12/20/2017 11:15 AM CDT Pulse 77 12/20/2017 11:15 AM CDT Temperature 36.3 C (97.3 F) 12/20/2017 6:29 AM CDT Respiratory Rate 18 12/20/2017 11:15 AM CDT Oxygen Saturation 92% 12/20/2017 10:24 AM CDT Inhaled Oxygen Concentration - - Weight 77.6 kg (171 lb) 12/20/2017 6:29 AM CDT Height 170.2 cm (5' 7") 12/20/2017 6:29 AM CDT Body Mass Index 26.78 12/20/2017 6:29 AM CDT Plan of Treatment Not on file Implants Implanted Type Area Turkey Picker Device Expiration Model / Identifier Date Serial / Lot Inogen El Icd Vr Defibrillators N/A: [employer] 07/10/2019 [id number] / Implanted: Qty: 1 on 12/20/2017 by Dwayne Flores MD Chest [employer] [id number] / Procedures Procedure Name Priority Date/Time Associated Diagnosis Comments AICD GENERATOR - 12/20/2017 7:20 AM Dilated cardiomyopathy REMOVE & REPLACE CDT (HCC) (SINGLE LEAD) Case Notes 1st \\CASE POP6 after 12/29/2016 Results CARDIAC CATH REPORT - SCAN (12/24/2017 5:44 PM)ARRYTHMIA IMPLANT REPORT - SCAN (12/23/2017 12:30 PM)CBC with platelet count + automated diff (12/20/2017 7:05 AM) Component Value Ref Range WBC 4.6 3.5 - 10.5 K/L RBC 3.33 (L) 4.63 - 6.08 M/L Hemoglobin 10.1 (L) 13.7 - 17.5 GM/DL Hematocrit 31.9 (L) 40.1 - 51.0 % MCV 95.8 (H) 79.0 - 92.2 fL MCH 30.3 25.7 - 32.2 pg MCHC 31.7 (L) 32.3 - 36.5 GM/DL RDW 17.4 (H) 11.6 - 14.4 % Platelets 99 (L) 150 - 450 K/CU MM MPV 11.0 9.4 - 12.4 fL nRBC 0 0 - 0 /100 WBC % Neutros 68 % % Lymphs 20 % % Monos 9 % % Eos 2 % % Baso 0 % # Neutros 3.12 1.78 - 5.38 K/L # Lymphs 0.93 (L) 1.32 - 3.57 K/L # Monos 0.40 0.30 - 0.82 K/L # Eos 0.09 0.04 - 0.54 K/L # Baso 0.01 0.01 - 0.08 K/L Immature Granulocytes-Relative 0 0 - 1 % Specimen Performing Laboratory Blood - Arm, [address] [address] Prothrombin time/INR (12/20/2017 7:05 AM) Component Value Ref Range Protime 15.1 (H) 11.7 - 14.7 seconds INR 1.2 <=5.9 Specimen Performing Laboratory Blood - Arm, [address] [address] Narrative RECOMMENDED COUMADIN/WARFARIN INR THERAPY RANGES STANDARD DOSE: 2.0 - 3.0 Includes: PROPHYLAXIS for venous thrombosis, systemic embolization; TREATMENT for venous thrombosis and/or pulmonary embolus. HIGH RISK: Target INR is 2.5-3.5 for patients with mechanical heart valves. CBC with platelet count + automated diff (12/20/2017 7:05 AM) Specimen Performing Laboratory Blood Narrative The following orders were created for panel order CBC with platelet count + automated diff. Procedure Abnormality Status --------- ------ CBC with platelet count ...[[id number]]AbnormalFinal result Please view results for these tests on the individual orders. Basic metabolic panel (12/20/2017 7:05 AM) Component Value Ref Range Sodium 142 136 - 145 meq/L Potassium 4.1 3.5 - 5.1 meq/L Chloride 105 98 - 107 meq/L CO2 28 22 - 29 meq/L BUN 30 (H) 7 - 21 mg/dL Creatinine 1.90 (H) 0.57 - 1.25 mg/dL Glucose 118 (H) 70 - 105 mg/dL Calcium 9.1 8.4 - 10.2 mg/dL EGFR 34Comment: ESTIMATED GFR IS NOT ACCURATE mL/min/1.73 sq m CREATININE CLEARANCE IN PREDICTING GLOMERULAR FILTRATION RATE. ESTIMATED GFR IS NOT APPLICABLE FOR DIALYSIS PATIENTS. Specimen Performing Laboratory Blood - Arm, [facility] [address] [place] [id number] ECG 12 lead (12/20/2017 7:00 AM) Specimen Performing Laboratory GE MUSE Narrative Ventricular Rate 58 BPM Atrial Rate 232 BPM QRS Duration 98 ms Q-T Interval 426 ms QTC Calculation(Bazett) 418 ms P [place] 45 degrees R Osburn -25 degrees T [place] 139 degrees Atrial flutter with variable A-V block with premature ventricular or aberrantly conducted complexes Abnormal ECG No previous ECGs available Confirmed by James BEJARANO MICHAEL ([id number]) on 12/20/2017 7:33:36 AM Procedure Note Interface, External Ris In - 12/20/2017 7:33 AM CDT Ventricular Rate 58 BPM Atrial Rate 232 BPM QRS Duration 98 ms Q-T Interval 426 ms QTC Calculation(Bazett) 418 ms P [place] 45 degrees R Osburn -25 degrees T [place] 139 degrees Atrial flutter with variable A-V block with premature ventricular or aberrantly conducted complexes Abnormal ECG No previous ECGs available Confirmed by James BEJARANO MICHAEL ([id number]) on 12/20/2017 7:33:36 AM after 12/29/2016
--- OUTSIDE RECORDS SUMMARY | 2017-12-30 21:32 | XMS REPORT | Continuity of Care Document ---
:1935 Author Organization Interface Problems Problem Status Onset Classification Date Comments Source Date Reported Irritability and anger The [address] [place] [address] Anger reaction The [address] [place] [address] Dementia The [address] [place] [address] FALL ON BLOODTHINNERS Active 08/06/ The 2018 [place] Discharge Diagnosis: [facility] Chronic renal 2017 7 insufficiency Discharge Diagnosis: [facility] Chronic CHF 2017 7 ABNORMAL LABS Active 05/30/ [facility] 2016 AFIB/DIZZY Active 11/02/ [facility] 2017 CP Active 12/27[facility] 2015 UNSTABLE ANGINA Active 05/16/ [address] 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 Heart failure Active Problem [facility] 2 Heart failure Active Problem [facility] Outpatient 5 Imaging [facility] CAD (<span Active Problem [place] [id number]">Conf 7 Medical irmed</span>) [facility] Heart failure Active Problem [facility] Outpatient 7 Imaging [facility] HTN (<span Resolved Problem [place] ID="[id number]">Conf 7 Medical irmed</span>) [facility] [place] (<span Resolved Problem [place] ID="[id number]">Conf 7 Medical irmed</span>) [facility] Presence of automatic Active Problem Cardiovascular cardiac defibrillator 8 Assoc Atherosclerotic heart Active Problem Cardiovascular disease of [place] 8 [facility] coronary artery with other forms [...] Active Diagnosis Cardiovascular atherosclerosis of 5 [facility] [place] vessel Diabetes mellitus type Active Problem Cardiovascular [...] Assoc Hypothyroidism Active Problem [facility] Diabetes mellitus Type Active Problem Cardiovascular 2 without 6 Assoc complications s/p PTCA or Stent Active Problem [facility] Unspecified dementia The without behavioral [address] [place] [address] disturbance Laceration without The foreign body of left [address] [place] [address] elbow, initial encounter Abrasion of scalp, The initial encounter [address] [place] [address] Abrasion of right The forearm, initial [address] [place] [address] encounter Striking against other The stationary object, [address] [place] [address] initial encounter Essential hypertension The [address] [place] [address] 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 [address] [place] [address] Personal history of The nicotine dependence [address] [place] [address] Encounter for The immunization [address] [place] [address] CAD (<span Active Problem [facility] ID="[id number]">Conf 8 Medical irmed</span>) [facility] [place] Heart failure Active Problem [facility] Outpatient 8 Imaging [place],[facility] HTN (<span Resolved Problem [facility] ID="[id number]">Conf 8 Medical irmed</span>) Center,[facility] [place] (<span Resolved Problem [facility] ID="[id number]">Conf 8 Medical irmed</span>) Center,[facility] CHR SYSTOLIC HRT Active [facility] FAILURE ANGINA PECTORIS, Active [facility] UNSPECIFIED Medical Center ENCOUNTER FOR Active [facility] SCREENING FOR [facility] MALIGNANT NE NON-ST ELEVATION Active [facility] (NSTEMI) MYOCARDIAL INF CHEST PAIN, Active [facility] UNSPECIFIED UNSPECIFIED ATRIAL Active [facility] FIBRILLATION Medications Medication Details Route Status Patient Ordering Order Source Instructions Provider Date Saline Flush 10 mL, Inactive The 0.9% Route: IVP2017 [facility] Drug Form: INJ, Dosing Weight 83.182, kg, PRN, PRN Line Flush, Start date: 08/06/17 1:02:00 [facility] ASSOCIATE, Duration: 30 day, Stop date: 09/05/17 2:01:00 CDTNotes: Same as: BD Posiflush Sterile Saline Flush 10 mL, Inactive 0.9% Route: IVP2016 [facility] Drug Form: INJ, Dosing Weight 83.182, kg, PRN, PRN Line Flush, Start date: 05/30/17 11:48:00 SPA ASSOCIATE, Duration: 1 day, Stop date: 05/31/17 11:47:00 CSTNotes: (Same as: BD Posiflush) apixaban 2.5 mg 2.5 mg=1 Active 11/03[facility] oral tablet tab, PO, 2016 [facility] Q12H, # 60 tab, 0 Refill(s) 24 HR 25 mg=1 Active 11/03[facility] Metoprolol tab, PO, 2016 [facility] Tartrate 25 MG Q12H, # 60 Extended tab, 0 Release Tablet Refill(s) [Toprol] glimepiride 1 mg, No Longer Route: PO, Active 2016 [facility] Daily, Dosing Weight 85, kg, Start date: 11/03/16 9:00:00 CDT, Duration: 30 day, Stop date: 12/02/16 9:00:00 CDT Furosemide 40 40 mg, 1 Inactive MG Oral Tablet tab, Route: 2016 [facility] PO, Drug form: TAB, Daily, Dosing Weight 85, kg, Start date: 11/03/16 9:00:00 CDT, Duration: 30 day, Stop date: 12/02/16 9:00:00 CDTNotes: (Same as: Lasix) May cause GI upset. Give with food or milk. Losartan 50 mg, 1 Inactive 11/03[facility] tab, Route: 2016 [facility] PO, Drug form: TAB, Daily, Dosing Weight 85, kg, Start date: 11/03/16 9:00:00 CDT, Duration: 30 day, Stop date: 12/02/16 9:00:00 CDTNotes: (Same as: Cozaar) Glucotrol 5 mg, 1 Inactive tab, Route: 2016 [facility] PO, Drug form: TAB, Daily, Start date: 11/03/16 9:00:00 CDT, Duration: 30 day, Stop date: 12/02/16 9:00:00 CDTNotes: (Same as: Glucotrol) 30 min before meals. Eliquis 2.5 mg, 1 Inactive tab, Route: 2016 [facility] PO, Drug form: TAB, Q12H, Dosing Weight 83.636, kg, Start date: 11/03/16 9:00:00 CDT, Duration: 30 day, Stop date: 12/02/16 21:00:00 CDTNotes: Same as: Eliquis tamsulosin 0.4 mg, 1 Inactive cap, Route: 2016 [facility] PO, Drug form: CAP, Daily, Dosing Weight 85, kg, Start date: 11/03/16 9:00:00 CDT, Duration: 30 day, Stop date: 12/02/16 9:00:00 CDTNotes: (Same As: Flomax) "Do Not Crush" Aldactone 25 mg, 1 Inactive tab, Route: 2016 [facility] PO, Drug form: TAB, Daily, Dosing Weight 85, kg, Start date: 11/03/16 9:00:00 CDT, Duration: 30 day, Stop date: 12/02/16 9:00:00 CDTNotes: (Same As: Aldactone) Synthroid 200 Inactive microgram, 2016 [facility] 2 tab, Route: PO, Drug form: TAB, Q630AM, Dosing Weight 85, kg, Start date: 11/03/16 6:30:00 CDT, Duration: 30 day, Stop date: 12/02/16 6:30:00 CDTNotes: Take 1 hour before or 2 hours after meal; Enteral feeds may interefere with the absorption of this medication. (Same as:Levothro id, Synthroid) Insulin, 3 unit, No Longer Aspart, Human 0.03 mL, Active 2016 [facility] Route: SUB-Q, Drug form: SOLN, Bedtime, Dosing Weight 83.636, kg, PRN Blood Glucose Results, Start date: 11/02/16 21:49:00 CDT, Duration: 30 day, Stop date: 12/02/16 21:48:00 CDTNotes: Roll in palms of hands gently; Do not shake vigorously. (Same as: NovoLOG) "single patient use only" WASTE: F/P - Black; E - yeppt Trash Bin Stable for 28 days at room temperature . Expires in days from ___Date Glucagon 1 mg, Inactive Route: IM, 2016 [facility] PRN, Dosing Weight 83.636, kg, PRN Blood Glucose Results, Start date: 11/02/16 21:49:00 CDT, Duration: 30 day, Stop date: 12/02/16 21:48:00 CDT Dextrose 50% 25 mL, Inactive Syringe Route: IVP, 2016 [facility] Dosing Weight 83.636, kg, PRN, PRN Blood Glucose Results, Start date: 11/02/16 21:49:00 CDT, Duration: 30 day, Stop date: 12/02/16 21:48:00 CDT Morphine 2 mg, 1 mL, No Longer Route: IVP, Active 2016 [facility] Drug form: INJ, Q4H, Dosing Weight 83.636, kg, PRN Pain Score 7-10, Start date: 11/02/16 21:45:00 CDT, Duration: 30 day, Stop date: 12/02/16 21:44:00 CDTNotes: (Same as:MORPhine Sulfate) Benadryl 25 mg, 1 Inactive tab, Route: 2016 [facility] PO, Drug form: TAB, ONCE, Dosing Weight 83.636, kg, PRN Insomnia, Start date: 11/02/16 21:43:00 CDT Lipitor 10 mg, 1 No Longer tab, Route: Active 2016 [facility] PO, Drug form: TAB, Bedtime, Dosing Weight 85, kg, Start date: 11/02/16 21:00:00 CDT, Duration: 30 day, Stop date: 12/01/16 21:00:00 CDTNotes: (Same As: Lipitor) Ranexa 1,000 mg, 2 No Longer tab, Route: Active 2016 [facility] PO, Drug form: TAB, Q12H, Dosing Weight 85, kg, Start date: 11/02/16 21:00:00 CDT, Duration: 30 day, Stop date: 12/02/16 9:00:00 CDTNotes: Same as Ranexa "Do Not Crush" Prilosec 20 mg, Inactive Route: PO, 2016 [facility] Drug form: DRC, Bedtime, Dosing Weight 85, kg, Start date: 11/02/16 21:00:00 CDT, Duration: 30 day, Stop date: 12/01/16 21:00:00 CDT 24 HR 25 mg, 1 No Longer Metoprolol tab, Route: Active 2016 [facility] Tartrate 25 MG PO, Drug Extended form: Release Tablet ERTAB, [Toprol] Q12H, Start date: 11/02/16 21:00:00 CDT, Duration: 30 day, Stop date: 12/02/16 9:00:00 CDTNotes: (Same as: Toprol XL) Do Not Crush Hydralazine 10 mg, 0.5 No Longer mL, Route: Active 2016 [facility] IVP, Drug form: INJ, Q4H, Dosing Weight 85, kg, PRN Hypertensio n, Start date: 11/02/16 16:38:00 CDT, Duration: 30 day, Stop date: 12/02/16 16:37:00 CDTNotes: (Same as: Apresoline) Push over 5 minutes clopidogrel 75 mg, 1 No Longer tab, Route: Active 2016 [facility] PO, Drug form: TAB, Daily, Dosing Weight 85, kg, Start date: 11/02/16 16:30:00 CDT, Duration: 30 day, Stop date: 12/02/16 9:00:00 CDTNotes: (Same As: Plavix) aspirin 81 mg 81 mg, 1 No Longer tablet, enteric tab, Route: Active 2016 [facility] coated PO, Drug form: ECTAB, Daily, Dosing Weight 85, kg, Start date: 11/02/16 16:30:00 CDT, Duration: 30 day, Stop date: 12/02/16 9:00:00 CDTNotes: Do not crush or chew. (Same As: Ecotrin) Protonix 40 mg, 1 No Longer tab, Route: Active 2016 [facility] PO, Drug form: ECTAB, Before Dinner, Start date: 11/02/16 16:30:00 CDT, Duration: 30 day, Stop date: 12/01/16 16:30:00 CDTNotes: Tablet should not be chewed or crushed. (Same as: Protonix) 24 HR 25 mg, 1 Inactive Metoprolol tab, Route: 2016 [facility] Tartrate 25 MG PO, Drug Extended form: Release Tablet ERTAB, [Toprol] Daily, Start date: 11/02/16 16:30:00 CDT, Duration: 30 day, Stop date: 12/02/16 9:00:00 CDTNotes: (Same as: Toprol XL) Do Not Crush 24 HR 12.5 mg, No Longer Metoprolol PO, Daily, Active 2016 [facility] Tartrate 25 MG 0 Refill(s) Extended Release Tablet [Toprol] Insulin, 5 unit, No Longer Aspart, Human 0.05 mL, Active 2016 [facility] Route: SUB-Q, Drug form: SOLN, TID-Before [...] mg, No Longer Route: IM, Active 2016 [facility] Drug form: PDR/INJ, PRN, Dosing Weight 85, kg, PRN Blood Glucose Results, Start date: 11/02/16 14:36:00 CDT, Duration: 30 day, Stop date: 12/02/16 14:35:00 CDT Dextrose 50% 25 gm, 50 No Longer Syringe mL, Route: Active 2016 [facility] IVP, Drug Form: INJ, Dosing Weight 85, kg, PRN, PRN Blood Glucose Results, Start date: 11/02/16 14:36:00 CDT, Duration: 30 day, Stop date: 12/02/16 14:35:00 CDT Metoprolol 5 mg, 5 mL, No Longer Route: IVP, Active 2016 [facility] Drug form: INJ, Q4H, Dosing Weight 85, kg, PRN Tachycardia , Start date: 11/02/16 14:28:00 CDT, Duration: 30 day, Stop date: 12/02/16 14:27:00 CDTNotes: (Same as: Lopressor) Push over 2 minutes Lasix 1 tab(s) orally Active 40 mg orally [place] 09/25/ Cardiovasc once a day 2016 [facility] atorvastatin 10 10 mg=1 Active MG Oral Tablet tab, PO, 2015 [facility] [Lipitor] Bedtime carvedilol 6.25 mg=2 Active 3.125 mg oral tab, PO, 2015 [facility] tablet BID, 0 Refill(s) Aspirin 81 MG 81 mg, 1 No Longer Enteric Coated tab, Route: Active 2015 [facility] Tablet PO, Drug form: ECTAB, Daily, Dosing Weight 83.455, kg, Start date: 12/30/15 9:00:00 CDT, Duration: 30 day, Stop date: 01/28/16 9:00:00 CDTNotes: Do not crush or chew. (Same As: Ecotrin) Furosemide 40 40 mg, 1 Inactive MG Oral Tablet tab, Route: 2015 [facility] PO, Drug form: TAB, Daily, Dosing Weight 83.455, kg, Start date: 12/30/15 9:00:00 CDT, Duration: 30 day, Stop date: 01/28/16 9:00:00 CDTNotes: (Same as: Lasix) May cause GI upset. Give with food or milk. Aspirin 325 MG 325 mg, 1 Inactive Enteric Coated tab, Route: 2015 [facility] Tablet PO, Drug form: TAB, Daily, Dosing Weight 83.455, kg, Start date: 12/30/15 9:00:00 CDT, Duration: 30 day, Stop date: 01/28/16 9:00:00 CDTNotes: Take with food. clopidogrel 75 mg, No Longer Route: PO, Active 2015 [facility] Drug form: TAB, Daily, Dosing Weight 83.455, kg, Start date: 12/30/15 9:00:00 CDT, Duration: 30 day, Stop date: 01/28/16 9:00:00 CDT Losartan 50 mg, 1 Inactive tab, Route: 2015 [facility] PO, Drug form: TAB, Daily, Dosing Weight 83.455, kg, Start date: 12/30/15 9:00:00 CDT, Duration: 30 day, Stop date: 01/28/16 9:00:00 CDTNotes: (Same as: Jorgezaar) Synthroid 200 Inactive microgram, 2015 [facility] 2 tab, Route: PO, Drug form: TAB, Daily, Dosing Weight 83.455, kg, Start date: 12/30/15 6:30:00 CDT, Duration: 30 day, Stop date: 01/28/16 6:30:00 CDTNotes: Take 1 hour before or 2 hours after meal; Enteral feeds may interefere with the absorption of this medication. (Same as:Levothro id, Synthroid) Coreg 6.25 mg, 2 No Longer tab, Route: Active 2015 [facility] PO, Drug form: TAB, BID, Dosing Weight 83.455, kg, Start date: 12/29/15 21:00:00 CDT, Duration: 30 day, Stop date: 01/28/16 9:00:00 CDTNotes: Give with food. (Same As: Coreg) Lipitor 40 mg, 1 Inactive tab, Route: 2015 [facility] PO, Drug form: TAB, Bedtime, Start date: 12/29/15 21:00:00 CDT, Duration: 30 day, Stop date: 01/27/16 21:00:00 CDTNotes: (Same as: Lipitor) rosuvastatin 10 rosuvastati No Longer mg tab n 10 mg Active 2015 [facility] tab, 20 mg, 2 tab, Drug form: MISC, Route: PO, Bedtime, 12/29/15 21:00:00 CDT, Duration: 30 day, Stop date: 01/27/16 21:00:00 CDTNotes: (Same as: Crestor) Crestor 20 mg, Inactive Route: PO, 2015 [facility] Drug form: TAB, Bedtime, Dosing Weight 83.455, kg, Start date: 12/29/15 21:00:00 CDT, Duration: 30 day, Stop date: 01/27/16 21:00:00 CDT Ranexa 1,000 mg, 2 No Longer tab, Route: Active 2015 [facility] PO, Drug form: TAB, BID, Dosing Weight 83.455, kg, Start date: 12/29/15 21:00:00 CDT, Duration: 30 day, Stop date: 01/28/16 9:00:00 CDTNotes: Same as Ranexa "Do Not Crush" Prilosec 20 mg, Inactive Route: PO, 2015 [facility] Drug form: DRC, Bedtime, Dosing Weight 83.455, kg, Start date: 12/29/15 21:00:00 CDT, Duration: 30 day, Stop date: 01/27/16 21:00:00 CDT tamsulosin 0.4 mg, 1 No Longer cap, Route: Active 2015 [facility] PO, Drug form: CAP, Daily, Dosing Weight 83.455, kg, Start date: 12/29/15 18:00:00 CDT, Duration: 30 day, Stop date: 01/27/16 18:00:00 CDTNotes: (Same As: Flomax) "Do Not Crush" Aldactone 25 mg, 1 No Longer tab, Route: Active 2015 [facility] PO, Drug form: TAB, BID, Dosing Weight 83.455, kg, Start date: 12/29/15 17:00:00 CDT, Duration: 30 day, Stop date: 01/28/16 9:00:00 CDTNotes: (Same As: Aldactone) glimepiride 1 mg, 0.5 No Longer tab, Route: Active 2015 [facility] PO, Drug form: TAB, BID-Meals, Dosing Weight 83.455, kg, Start date: 12/29/15 17:00:00 CDT, Duration: 30 day, Stop date: 01/28/16 8:00:00 CDTNotes: (Same as: Amaryl) Protonix 40 mg, 1 No Longer tab, Route: Active 2015 [facility] PO, Drug form: ECTAB, Before Dinner, Start date: 12/29/15 16:30:00 CDT, Duration: 30 day, Stop date: 01/27/16 16:30:00 CDTNotes: Tablet should not be chewed or crushed. (Same as: Protonix) Acetaminophen 1 tab, No Longer 325 MG / Route: PO, Active 2015 [facility] Hydrocodone Drug Form: Bitartrate 7.5 TAB, Dosing MG Oral Tablet Weight [Spade 7.5/325] 83.455, kg, Q6H, PRN Pain Score 4-6, Start date: 12/29/15 16:20:00 CDT, Duration: 30 day, Stop date: 01/28/16 16:19:00 CDTNotes: Same as [place] 325-7.5mg Do not exceed 4gm/day of acetaminoph en. Nitroglycerin 0.4 mg, 1 No Longer tab, Route: Active 2015 [facility] SL, Drug form: TAB, Q5Min, Dosing Weight 83.455, kg, PRN Chest Pain, Start date: 12/29/15 15:39:00 CDT, Duration: 30 day, Stop date: 01/28/16 15:38:00 CDTNotes: (Same as:Nitroqui ck, Nitrostat) "Do Not Crush" Sublingual tablet Famotidine 20 mg, 1 No Longer tab, Route: Active 2015 [facility] PO, Drug form: TAB, Q12H, Dosing Weight 83.455, kg, PRN Heartburn, Start date: 12/29/15 15:39:00 CDT, Duration: 30 day, Stop date: 01/28/16 15:38:00 CDTNotes: (Same as: Pepcid) Nitroglycerin 0.4 mg, Inactive Route: 2015 [facility] Transdermal , PRN, Dosing Weight 83.455, kg, PRN Abnormal Lab Result, Start date: 12/29/15 15:36:00 CDT, Duration: 30 day, Stop date: 01/28/16 15:35:00 CDT Insulin, 4 unit, No Longer Aspart, Human 0.04 mL, Active 2015 [facility] Route: SUB-Q, Drug form: SOLN, Bedtime, [...] mg, No Longer Route: IM, Active 2015 [facility] Drug form: PDR/INJ, PRN, Dosing Weight 83.455, kg, PRN Blood Glucose Results, Start date: 12/29/15 14:46:00 CDT, Duration: 30 day, Stop date: 01/28/16 14:45:00 CDT Dextrose 50% 25 gm, 50 No Longer Syringe mL, Route: Active 2015 [facility] IVP, Drug Form: INJ, Dosing Weight 83.455, kg, PRN, PRN Blood Glucose Results, Start date: 12/29/15 14:46:00 CDT, Duration: 30 day, Stop date: 01/28/16 14:45:00 CDT Acetaminophen 650 mg, 2 No Longer tab, Route: Active 2015 [facility] PO, Drug form: TAB, Q6H, Dosing Weight 83.455, kg, PRN Pain Score 1-3, Start date: 12/29/15 12:43:00 CDT, Duration: 30 day, Stop date: 01/28/16 12:42:00 CDTNotes: Do not exceed 4 gm/day. (Same as: Tylenol) Sodium Chloride 600 mL, Inactive 0.154 MEQ/ML Rate: 100 2015 [facility] Injectable ml/hr, Solution Infuse over: 6 hr, Route: IV, Dosing Weight 83.455 kg, Total Volume: 600, Priority: NOW, Start date: 12/29/15 9:38:00 CDT, Stop date: 12/29/15 21:37:00 CDT Plavix 75 mg, 1 No Longer tab, Route: Active 2015 [facility] PO, Drug form: TAB, Daily, Dosing Weight 83.455, kg, Priority: NOW, Start date: 12/29/15 9:09:00 CDT, Duration: 30 day, Stop date: 01/28/16 9:00:00 CDTNotes: (Same As: Plavix) Aspirin 325 MG 325 mg, 1 Inactive Enteric Coated tab, Route: 2016 [facility] Tablet PO, Daily, Dosing Weight 83.455, kg, Priority: NOW, Start date: 12/29/15 9:09:00 CDT, Duration: 30 day, Stop date: 01/28/16 9:00:00 CDT Streptococcus 0.5 mL, Inactive pneumoniae Route: IM, 2016 [facility] serotype 1 Drug Form: capsular INJ, Daily, antigen Start date: diphtheria 12/29/15 [id number] protein 9:00:00 conjugate CDT, vaccine / Duration: 1 Streptococcus doses or pneumoniae times, Stop serotype 14 date: capsular 12/29/15 antigen 9:00:00 diphtheria CDTNotes: [id number] protein Lightly conjugate roll vial vaccine / (DO NOT Streptococcus SHAKE) pneumoniae before serotype 18C administrat capsular ion. (Same antigen d as: Prevnar 13) glimepiride 1 mg, PO, Active BID-Meals, 2015 [facility] 0 Refill(s) Saline Flush 10 ml, No Longer 0.9% Route: IVP, Active 2015 [facility] Drug Form: INJ, Dosing Weight 83.455, kg, Q12H, Start date: 12/28/15 21:00:00 CDT, Duration: 30 day, Stop date: 01/27/16 9:00:00 CDTNotes: (Same as: BD Posiflush) Zofran 4 mg, 2 mL, No Longer Route: IVP, Active 2015 [facility] Drug form: INJ, Q8H, Dosing Weight 84.716, kg, PRN as needed for nausea/vomi ting, Start date: 12/28/15 19:06:00 CDT, Duration: 30 day, Stop date: 01/27/16 19:05:00 CDTNotes: (Same as: Zofran) MEDICATION WASTE Product Size: 4 mg Product Wasted: ___ mg Saline Flush 10 ml, No Longer 0.9% Route: IVP, Active 2015 [facility] Drug Form: INJ, Dosing Weight 83.455, kg, PRN, PRN Line Flush, Start date: 12/28/15 19:06:00 CDT, Duration: 30 day, Stop date: 01/27/16 19:05:00 CDTNotes: (Same as: BD Posiflush) Nitroglycerin 0.4 mg, 1 No Longer tab, Route: 2015 [facility] SL, Drug form: TAB, Q5Min, Dosing Weight 83.455, kg, PRN Chest Pain, Start date: 12/28/15 19:06:00 CDT, Duration: 3 doses or times, Stop date: Limited # of timesNotes: (Same as:Nitroqui ck, Nitrostat) "Do Not Crush" Sublingual tablet Heparin 30 Route: IVP, No Longer unit/kg [place]us PRN, 2,200 2015 [facility] (Heparin Dosing unit, 2.2 Weight) mL, Drug form: INJ, PRN, Heparin Protocol, Start date: 12/28/15 16:59:00 CDT Stop date: 01/27/16 16:58:00 CDT, 30 day heparin 500 mL, No Longer additive 25,000 Rate: 17.65 Active 2015 [facility] unit [12 ml/hr, unit/kg/hr] + Infuse Premix Diluent over: 28.3 Dextrose 5% 500 hr, Route: mL IV, Dosing Weight 73.55 kg, Total Volume: 500 mL, Start date: 12/28/15 16:59:00 CDT, Duration: 30 day, Stop date: 01/27/16 16:58:00 CDT Heparin 60 Route: IVP, No Longer unit/kg Bolus PRN, 4,400 Active 2015 [facility] (Heparin Dosing unit, 4.4 Weight) mL, Drug form: INJ, PRN, Heparin Protocol, Start date: 12/28/15 16:59:00 CDT Stop date: 01/27/16 16:58:00 CDT, 30 day Heparin - one 4,000 unit, Inactive time bolus for 4 mL, 2015 [facility] Route: IV, Drug form: INJ, ONCE, Dosing Weight 84.716, kg, Priority: STAT, Start date: 12/28/15 16:59:00 CDT, Stop date: 12/28/15 16:59:00 CDT Aspirin 325 mg, 1 Inactive tab, Route: 2015 [facility] PO, Drug form: TAB, ONCE, Dosing Weight 84.716, kg, Priority: STAT, Start date: 12/28/15 16:29:00 CDT, Stop date: 12/28/15 16:29:00 CDTNotes: Take with food. Aspirin 81 MG 81 mg=1 Active [facility] Enteric Coated tab, PO, 2014 [facility] Tablet Daily, 0 Center Refill(s) clopidogrel 75 75 mg=1 Active [facility] mg oral tablet tab, PO, 2014 Medical [...] es: (Same as: Mag-Ox 400) Magnesium oxide [id number] elemental magnesium Dose=____mg magnesium oxide (___mg elemental magnesium) Hydralazine 10 mg, 0.5 Inactive [place] mL, Route: 2014 [facility] IV, Drug Center form: INJ, ONCE, Dosing Weight 85, kg, Start date: 05/20/15 17:33:00, Stop date: 05/20/15 17:33:00Not es: (Same as: Apresoline) Push over 5 minutes potassium 20 mEq, 100 Inactive [place] chloride mL, Route: 2014 [facility] IVPB, Drug Center form: INJ, ONCE, Dosing Weight 85, kg, Start date: 05/20/15 15:01:00, Stop date: 05/20/15 15:01:00, Central LineNote s: (Same as: KCL) Infuse no faster than 10 mEq/hr if given peripherall y. Potassium 40 mEq, 30 Inactive [place] Chloride 1.33 mL, Route: 2014 [facility] MEQ/ML [...] Lactulose 667 10 gm, 15 No Longer [place] MG/ML Oral mL, Route: Active 2014 [facility] Solution PO, Drug Center Form: SYRP, Dosing Weight 85, kg, QID, PRN as needed for constipatio n, Start date: 05/19/15 23:08:00, Duration: 30 day, Stop date: 06/18/15 23:07:00Not es: (Same as:[place] c) normal saline 1,000 mL, No Longer [place] 0.9% IV 1,000 Rate: 75 Active 2014 Medical mL ml/hr, Center Infuse over: 13.3 hr, Route: IV, Dosing Weight 85 kg, Total Volume: 1,000, Start date: 05/19/15 23:08:00, Duration: 30 day, Stop date: 06/18/15 23:07:00 Plavix 300 mg, 1 Inactive [place] tab, Route: 2014 Medical PO, Drug Center form: TAB, ONCE, Dosing Weight 85, kg, Priority: Within 4 hours, Start date: 05/19/15 12:39:00, Duration: 1 doses or times, Stop date: 05/19/15 12:39:00Not es: ( Same as: Plavix) Miralax 17 gm, 1 No Longer [place] pkt, Route: Active 2014 Medical PO, Drug Center form: PWDR, Daily, Dosing Weight 85, kg, Priority: NOW, Start date: 05/18/15 16:37:00, Duration: 30 day, Stop date: 06/17/15 9:00:00Note s: Dissolve in 8 oz of water or juice. (Same as: Miralax) sennosides, [facility] 8.6 mg, 1 No Longer [place] tab, Route: Active 2014 Medical PO, Drug Center Form: TAB, Dosing Weight 85, kg, Daily, NOW, Start date: 05/18/15 16:37:00, Duration: 30 day, Stop date: 06/17/15 9:00:00Note s: (Same as: Senokot) Docusate 100 mg, Inactive [place] Route: PO, 2014 Medical Drug form: Center CAP, Daily, Dosing Weight 85, kg, Priority: NOW, Start date: 05/18/15 16:37:00, Duration: 30 day, Stop date: 06/17/15 9:00:00 Lipitor 40 mg, 2 No Longer [place] tab, Route: Active 2014 Medical PO, Drug Center form: TAB, Bedtime, Start date: 05/17/15 21:00:00, Duration: 30 day, Stop date: 06/15/15 21:00:00Not es: (Same As: Lipitor) Crestor 20 mg, Inactive [place] Route: PO, 2014 Medical Drug form: [place] TAB, Bedtime, Dosing Weight 85, kg, Start date: 05/17/15 21:00:00, Duration: 30 day, Stop date: 06/15/15 21:00:00 Prilosec 20 mg, Inactive [place] Route: PO2014 Medical Drug form: [place] DRC, Bedtime, Dosing Weight 85, kg, Start date: 05/17/15 21:00:00, Duration: 30 day, Stop date: 06/15/15 21:00:00 Docusate Sodium 100 mg, 1 No Longer [place] 100 MG Oral cap, Route: Active 2014 Medical Capsule PO, Drug Center [Colace] form: CAP, BID, Dosing Weight 85, kg, Start date: 05/17/15 17:00:00, Duration: 30 day, Stop date: 06/16/15 9:00:00Note s: (Same as: Colace) (Do Not Crush) Protonix 40 mg, 1 No Longer [place] tab, Route: Active 2014 Medical PO, Drug Center form: ECTAB, Before Dinner, Start date: 05/17/15 16:30:00, Duration: 30 day, Stop date: 06/15/15 16:30:00Not es: Tablet should not be chewed or crushed. (Same as: Protonix) Aspirin 81 mg, 1 No Longer [place] tab, Route: Active 2014 Medical PO, Drug Center form: ECTAB, Daily, Dosing Weight 85, kg, Start date: 05/17/15 9:00:00, Duration: 30 day, Stop date: 06/15/15 9:00:00Note s: Do not crush or chew. (Same As: Ecotrin) Furosemide 40 40 mg, 1 No Longer [place] MG Oral Tablet tab, Route: Active 2014 Medical PO, Drug Center form: TAB, Daily, Dosing Weight 85, kg, Start date: 05/17/15 9:00:00, Duration: 30 day, Stop date: 06/15/15 9:00:00Note s: (Same as: Lasix) May cause GI upset. Give with food or milk. Aldactone 25 mg, 1 No Longer [place] tab, Route: Active 2014 Medical PO, Drug Center form: TAB, BID, Dosing Weight 85, kg, Start date: 05/17/15 9:00:00, Duration: 30 day, Stop date: 06/15/15 17:00:00Not es: (Same As: Aldactone) Ranexa 1,000 mg, 2 No Longer [place] tab, Route: Active 2014 Medical PO, Drug Center form: TAB, BID, Dosing Weight 85, kg, Start date: 05/17/15 9:00:00, Duration: 30 day, Stop date: 06/15/15 17:00:00Not es: Same as Ranexa "Do Not Crush" Losartan 50 mg, 1 No Longer [place] tab, Route: Active 2014 Medical PO, Drug Center form: TAB, Daily, Dosing Weight 85, kg, Start date: 05/17/15 9:00:00, Duration: 30 day, Stop date: 06/15/15 9:00:00Note s: (Same as: Cozaar) Coreg 6.25 mg, 1 No Longer [place] tab, Route: Active 2014 Medical PO, Drug Center form: TAB, BID, Dosing Weight 85, kg, Start date: 05/17/15 9:00:00, Duration: 30 day, Stop date: 06/15/15 17:00:00Not es: Give with food. (Same As: Coreg) tamsulosin 0.4 mg, 1 No Longer [place] cap, Route: Active 2014 Medical PO, Drug Center form: CAP, After Breakfast, Dosing Weight 85, kg, Start date: 05/17/15 8:30:00, Duration: 30 day, Stop date: 06/15/15 8:30:00Note s: (Same As: Flomax) "Do Not Crush" Synthroid 200 No Longer [place] microgram, Active 2014 Medical 1 tab, Center Route: PO, Drug form: TAB, Q630AM, Dosing Weight 85, kg, Start date: 05/17/15 6:30:00, Duration: 30 day, Stop date: 06/15/15 6:30:00Note s: Take 1 hour before or 2 hours after meal; Enteral feeds may interefere with the absorption of this medication. (Same as: Levothroid) heparin sodium, Route: IVP, No Longer [place] porcine 1000 PRN, 4,400 Active 2014 Medical UNT/ML unit, 4.4 Center Injectable mL, Drug Solution form: INJ, PRN, Heparin Protocol, Start date: 05/17/15 1:38:00 Stop date: 06/16/15 1:37:00, 30 day heparin 500 mL, No Longer [place] additive 25,000 Rate: 17.68 Active 2014 Medical unit [12 ml/hr, Center unit/kg/hr] + Infuse Premix Diluent over: 28.3 Dextrose 5% 500 hr, Route: mL IVPB, Dosing Weight 73.66 kg, Total Volume: 500 mL, Start date: 05/17/15 1:38:00, Duration: 30 day, Stop date: 06/16/15 1:37:00 Plavix 75 mg, 1 Inactive tab, Route: 2014 [facility] PO, Drug form: TAB, Daily, Dosing Weight 83.2, kg, Start date: 05/16/15 9:00:00, Duration: 30 day, Stop date: 06/14/15 9:00:00Note s: (Same As: Plavix) Plavix 600 mg, 2 Inactive tab, Route: 2014 [facility] PO, Drug form: TAB, ONCE, Dosing Weight 83.2, kg, Priority: NOW, Start date: 05/15/15 10:37:00, Duration: 1 doses or times, Stop date: 05/15/15 10:37:00Not es: ( Same as: Plavix) Insulin, 10 unit, No Longer Aspart, Human 0.1 mL, Active 2014 [facility] Route: SUB-Q, Drug form: SOLN, TID-Before [...] No Longer Syringe mL, Route: Active 2014 [facility] IVP, Drug Form: INJ, Dosing Weight 83.2, kg, PRN, PRN Blood Glucose Results, Start date: 05/14/15 11:54:00, Duration: 30 day, Stop date: 06/13/15 11:53:00 Glucagon 1 mg, No Longer Route: IM, Active 2014 [facility] Drug form: PDR/INJ, PRN, Dosing Weight 83.2, kg, PRN Blood Glucose Results, Start date: 05/14/15 11:54:00, Duration: 30 day, Stop date: 06/13/15 11:53:00 Magnesium 2 gm, 50 Inactive Sulfate mL, Route: 2014 [facility] IVPB, Drug form: INJ, ONCE, Dosing Weight 83.2, kg, Start date: 05/14/15 8:24:00, Duration: 2 hr, Stop date: 05/14/15 8:24:00 Coreg 3.125 mg, Inactive Route: PO, 2014 [facility] Drug form: TAB, Q12H, Dosing Weight 83.2, kg, hold sbp Crestor 20 mg, Inactive Route: PO, 2014 [facility] Drug form: TAB, Bedtime, Dosing Weight 83.2, kg, Start date: 05/13/15 21:00:00, Duration: 30 day, Stop date: 06/11/15 21:00:00 Lipitor 40 mg, 1 No Longer tab, Route: Active 2014 [facility] PO, Drug form: TAB, Bedtime, Start date: 05/13/15 21:00:00, Duration: 30 day, Stop date: 06/11/15 21:00:00Not es: (Same as: Lipitor) heparin sodium, 4,000 unit, Inactive porcine 5000 4 mL, 2014 UNT/ML Route: IV, Injectable Drug form: Solution INJ, ONCE, Dosing Weight 83.2, kg, Start date: 05/13/15 14:00:00, Stop date: 05/13/15 14:00:00 Lasix 20 mg, 2 Inactive mL, Route: 2014 [facility] IV, Drug form: INJ, ONCE, Dosing Weight 83.2, kg, Start date: 05/13/15 12:00:00, Stop date: 05/13/15 12:00:00Not es: (Same as: Lasix) Morphine 2 mg, 1 mL, No Longer Route: IVP, Active 2014 [facility] Drug form: INJ, Q4H, Dosing Weight 83.2, kg, PRN Pain Score 7-10, Start date: 05/13/15 10:19:00, Duration: 30 day, Stop date: 06/12/15 10:18:00Not es: (Same as:[place]ine Sulfate) Sodium Chloride 250 mL, 250 Inactive 0.154 MEQ/ML ml/hr, 2014 [facility] Injectable Infuse Solution Over: 1 hr, Route: IV, 250, Drug form: INJ, ONCE, Dosing Weight 83.2 kg, Start date: 05/13/15 9:58:00, Duration: 1 doses or times, Stop date: 05/13/15 9:58:00 Flomax 0.4 mg, 1 No Longer cap, Route: Active 2014 [facility] PO, Drug form: CAP, Daily, Dosing Weight 84.659, kg, Start date: 05/13/15 9:00:00, Duration: 30 day, Stop date: 06/11/15 9:00:00Note s: (Same As: Flomax) "Do Not Crush" aspirin 325 mg 325 mg, 1 No Longer tablet tab, Route: Active 2014 [facility] PO, Drug form: TAB, Daily, Start date: 05/13/15 9:00:00, Duration: 30 day, Stop date: 06/11/15 9:00:00Note s: Take with food. Thyroxine 112 No Longer microgram, Active 2014 [facility] 1 tab, Route: PO, Drug form: TAB, Q630AM, Dosing Weight 84.659, kg, Start date: 05/13/15 6:30:00, Duration: 30 day, Stop date: 06/11/15 6:30:00Note s: Take 1 hour before or 2 hours after meal; Enteral feeds may interefere with the absorption of this medication. (Same as:Levothro id) Ranexa 1,000 mg, 2 No Longer tab, Route: Active 2014 [facility] PO, Drug form: TAB, BID, Dosing Weight 84.659, kg, Start date: 05/12/15 22:00:00, Duration: 30 day, Stop date: 06/11/15 21:00:00Not es: Same as Ranexa "Do Not Crush" Coreg 6.25 mg, 2 No Longer tab, Route: Active 2014 [facility] PO, Drug form: TAB, BID, Dosing Weight 84.659, kg, Start date: 05/12/15 21:00:00, Duration: 30 day, Stop date: 06/11/15 9:00:00Note s: Give with food. (Same As: Coreg) Lipitor 20 mg, 2 No Longer tab, Route: Active 2014 [facility] PO, Drug form: TAB, Bedtime, Start date: 05/12/15 21:00:00, Duration: 30 day, Stop date: 06/10/15 21:00:00Not es: (Same As: Lipitor) Crestor 10 mg, Inactive Route: PO, 2014 Bedtime, Dosing Weight 84.659, kg, Start date: 05/12/15 21:00:00, Duration: 30 day, Stop date: 06/10/15 21:00:00 Insulin, 6 unit, No Longer Aspart, Human 0.06 mL, Active 2014 Route: SUB-Q, Drug form: SOLN, Sliding Scale, [...] mg, No Longer Route: IM, Active 2014 [facility] Drug form: PDR/INJ, PRN, Dosing Weight 83.2, kg, PRN Blood Glucose Results, Start date: 05/12/15 20:52:00, Duration: 30 day, Stop date: 06/11/15 20:51:00 Dextrose 50% 25 gm, 50 No Longer Syringe mL, Route: Active 2014 [facility] IVP, Drug Form: INJ, Dosing Weight 83.2, kg, PRN, PRN Blood Glucose Results, Start date: 05/12/15 20:52:00, Duration: 30 day, Stop date: 06/11/15 20:51:00 Trazodone 50 mg, 1 No Longer tab, Route: Active 2014 [facility] PO, Drug form: TAB, Bedtime, Dosing Weight 83.2, kg, PRN Sleep, Start date: 05/12/15 20:43:00, Duration: 30 day, Stop date: 06/11/15 20:42:00, ..Notes: (Same As: Coltonyrel) Nitroglycerin 0.4 mg, 1 No Longer tab, Route: Active 2014 [facility] SL, Drug form: TAB, Q5Min, Dosing Weight 83.2, kg, PRN Chest Pain, Start date: 05/12/15 20:37:00, Duration: 3 doses or times, Stop date: Limited # of timesNotes: (Same as:Nitroqui ck, Nitrostat) "Do Not Crush" Sublingual tablet Nitroglycerin 0.4 mg, On Hold Transdermal 2014 [facility] , PRN, 0 Refill(s) Rosuvastatin 20 mg=1 On Hold calcium 20 MG tab, PO, 2014 Oral Tablet Bedtime, # [Crestor] 30 tab, 0 Refill(s) Levothyroxine 200 On Hold Sodium 0.2 MG microgram=1 2014 Oral Tablet tab, PO, [Synthroid] Daily, # [...] mg, Inactive Oral Tablet Route: PO, 2014 [facility] Drug form: TAB, Daily, Dosing Weight 84.659, kg, Priority: STAT, Start date: 05/12/15 17:33:00, Duration: 30 day, Stop date: 06/11/15 9:00:00 heparin sodium, Route: IVP, No Longer porcine 1000 PRN, 4,300 Active 2014 [facility] UNT/ML unit, 4.3 Injectable mL, Drug Solution form: INJ, PRN, Heparin Protocol, Start date: 05/12/15 16:57:00 Stop date: 06/11/15 16:56:00, 30 day heparin 500 mL, No Longer additive 25,000 Rate: 17.31 Active 2014 [facility] unit [12 ml/hr, unit/kg/hr] + Infuse Premix Diluent over: 28.9 Dextrose 5% 500 hr, Route: mL IV, Dosing Weight 72.14 kg, Total Volume: 500 mL, Start date: 05/12/15 16:57:00, Duration: 30 day, Stop date: 06/11/15 16:56:00 heparin sodium, 4,000 unit, Inactive porcine 5000 4 mL, 2014 [facility] UNT/ML Route: IV, Injectable Drug form: Solution INJ, ONCE, Dosing Weight 81.364, kg, Priority: STAT, Start date: 05/12/15 16:57:00, Stop date: 05/12/15 16:57:00 Aspirin 81 MG 324 mg, Inactive Chewable Tablet Route: PO, 2014 [facility] Drug form: CHEWTAB, ONCE, Dosing Weight 81.364, kg, Priority: STAT, Start date: 05/12/15 16:22:00, Stop date: 05/12/15 16:22:00 Aspirin 325 mg, Inactive Route: 2014 [facility] CHEW, Drug form: CHEWTAB, ONCE, Dosing Weight 81.364, kg, Priority: STAT, Start date: 05/12/15 16:20:00, Stop date: 05/12/15 16:20:00 Aspirin 324 mg, 4 Inactive tab, Route: 2014 [facility] PO, Drug form: CHEWTAB, ONCE, Dosing Weight 81.364, kg, Priority: STAT, Start date: 05/12/15 14:36:00, Stop date: 05/12/15 14:36:00Not es: Take with food. Saline Flush 10 mL, No Longer 0.9% Route: IVP, Active 2014 [facility] Drug Form: INJ, Dosing Weight 81.364, kg, PRN, PRN Line Flush, Start date: 05/12/15 14:36:00, Duration: 30 day, Stop date: 06/11/15 14:35:00Not es: (Same as: BD Posiflush) furosemide 1 tab(s) orally Active 40 mg orally [facility] 06/26/ Cardiovasc once a day 2014 [facility] nitroglycerin 1 tab(s) sublingua Active 0.4 mg [facility] 11/26/ Cardiovasc lly sublingually 2013 [facility] every 5 minutes Crestor 1 tab(s) orally Active 10 mg orally [facility] 01/27/ Cardiovasc once a day (at 2012 [facility] bedtime) Ranexa 1,000 mg, 2 PO No Longer [facility] tab, Route: Active 2011 [facility] PO, Drug form: TAB, Q12H, Start date: 06/28/11 21:00:00, Duration: 30 day, Stop date: 07/28/11 9:00:00 Lipitor 10 mg, 1 PO No Longer [facility] tab, Route: Active 2011 [facility] PO, Drug form: TAB, Bedtime, Start date: 06/28/11 21:00:00, Duration: 30 day, Stop date: 07/27/11 21:00:00 lisinopril 10 mg, 1 PO No Longer [facility] tab, Route: Active 2011 [facility] PO, Drug form: TAB, Daily, Start date: 06/28/11 17:00:00, Duration: 30 day, Stop date: 07/28/11 9:00:00 glimepiride 2 mg, 1 PO No Longer [facility] tab, Route: Active 2011 [facility] PO, Drug form: TAB, BID, Start date: 06/28/11 17:00:00, Duration: 30 day, Stop date: 07/28/11 9:00:00 Lasix 20 mg, 1 PO No Longer [facility] tab, Route: Active 2011 [facility] PO, Drug form: TAB, BID, Start date: 06/28/11 17:00:00, Duration: 30 day, Stop date: 07/28/11 9:00:00 spironolactone 25 mg, 1 PO No Longer [facility] tab, Route: Active 2011 [facility] PO, Drug form: TAB, Daily, Start date: 06/28/11 17:00:00, Duration: 30 day, Stop date: 07/28/11 9:00:00 Flomax 0.4 mg, 1 PO No Longer [facility] cap, Route: Active 2011 [facility] PO, Drug form: CAP, Daily, Start date: 06/28/11 17:00:00, Duration: 30 day, Stop date: 07/28/11 9:00:00 aspirin 81 mg 81 mg, 1 PO No Longer [facility] tablet, enteric tab, Route: Active 2011 [facility] coated PO, Drug form: ECTAB, Daily, Start date: 06/28/11 17:00:00, Duration: 30 day, Stop date: 07/28/11 9:00:00 acetaminophen-t 1 tab, PO No Longer [facility] ramadol 325 Route: PO, Active 2011 [facility] mg-37.5 mg oral Drug Form: tablet TAB, Daily, Start date: 06/28/11 17:00:00, Duration: 30 day, Stop date: 07/28/11 9:00:00 cefazolin 2 gm, IVPB No Longer [facility] Route: Active 2011 [facility] IVPB, Q8H, Start date: 06/28/11 16:00:00, Duration: 2 doses or times, Stop date: 06/29/11 0:00:00 Sodium Chloride 10 mL, IVP No Longer [facility] 0.9% IV Route: IVP, Active 2011 [facility] Start date: 06/28/11 16:00:00, Duration: 30 day, Stop date: 07/28/11 8:00:00 Coreg 25 mg, 1 PO No Longer [facility] tab, Route: Active 2011 [facility] PO, Drug form: TAB, Q12H, Start date: 06/28/11 15:00:00, Duration: 30 day, Stop date: 07/28/11 9:00:00 nitroglycerin 0.4 mg, 1 SL No Longer [facility] 0.4 mg tab, Route: Active 2011 [facility] sublingual SL, Drug tablet form: TAB, PRN, PRN Chest Pain, Start date: 06/28/11 13:33:00, Duration: 30 day, Stop date: 07/28/11 13:32:00 acetaminophen 500 mg, 1 PO No Longer [facility] tab, Route: Active 2011 [facility] PO, Drug form: TAB, Q4H, PRN Pain, Start date: 06/28/11 11:28:00, Duration: 30 day, Stop date: 07/28/11 11:27:00 acetaminophen-h 2 tab, PO No Longer [facility] ydrocodone 325 Route: PO, Active 2011 [facility] mg-5 mg oral Drug Form: tablet TAB, Q4H, PRN Pain, Start date: 06/28/11 11:28:00, Duration: 30 day, Stop date: 07/28/11 11:27:00 morphine 2 mg, 1 mL, IV No Longer [facility] Sulfate Route: IV, Active 2011 [facility] Drug form: INJ, Q2H, PRN Severe Pain, Start date: 06/28/11 11:28:00, Duration: 30 day, Stop date: 07/28/11 11:27:00 Xanax 0.25 mg, 1 PO No Longer [facility] tab, Route: Active 2011 [facility] PO, Drug form: TAB, Q8H, PRN Anxiety, Start date: 06/28/11 11:28:00, Duration: 30 day, Stop date: 07/28/11 11:27:00 Zofran 4 mg, 2 mL, IVP No Longer [facility] Route: IVP, Active 2011 [facility] Drug form: INJ, Q8H, PRN Nausea & Vomiting, Start date: 06/28/11 11:28:00, Duration: 30 day, Stop date: 07/28/11 11:27:00 Restoril 15 mg, 1 PO No Longer [facility] cap, Route: Active 2011 [facility] PO, Drug form: CAP, Bedtime, PRN Insomnia, Start date: 06/28/11 11:28:00, Duration: 30 day, Stop date: 07/28/11 11:27:00 Sodium Chloride 10 mL, IVP No Longer [facility] 0.9% IV Route: IVP, Active 2011 [facility] PRN, Line Flush, Start date: 06/28/11 11:26:00, Duration: 30 day, Stop date: 07/28/11 11:25:00 multivitamin 1 tab, PO No Longer [facility] Route: PO, Active 2011 [facility] Drug Form: TAB, [id number], Start date: 06/28/11 6:00:00, Duration: 4 doses or times, Stop date: 06/29/11 18:00:00 cefazolin 1 gm, IVPB No Longer [facility] Route: Active 2011 [facility] IVPB, PRE OP, Start date: 06/28/11 5:00:00, Duration: 12 hr, Stop date: 06/28/11 16:59:00 Sodium Chloride 1,000 mL, IV No Longer [facility] 0.45% IV 1,000 Rate: 75 Active 2011 [facility] mL ml/hr, Infuse over: 13.3 hr, Route: IV, Total Volume: 1,000, Start date: 06/28/11 5:00:00, Duration: 24 hr, Stop date: 06/29/11 4:59:00 lidocaine-prilo 1 appl, TOP No Longer [facility] freddie topical Route: TOP, Active 2011 [facility] ONCALL, Drug form: CRM, Start date: 06/28/11 5:00:00, Duration: 1 doses or times Valium 5 mg, 1 PO No Longer [facility] tab, Route: Active 2011 [facility] PO, Drug form: TAB, ONCALL, Start date: 06/28/11 5:00:00, Duration: 1 doses or times Benadryl 50 mg, 2 PO No Longer [facility] tab, Route: Active 2011 [facility] PO, Drug form: TAB, ONCALL, Start [...] [place] [facility]ovasc once a day (at [facility] bedtime) tamsulosin 1 cap(s) orally Active 0.4 mg orally [place] [facility] once a day [facility] furosemide 1 tab(s) orally Active 40 mg orally [place] [facility] once a day [facility] ASA 1 tab(s) NA Active 81mg once a day [place] [facility] Prilosec 1 cap(s) orally Active 20 mg orally [place] [facility] once a day [facility] Ranexa [...] mg orally [place] [facility]ov[facility] bid [facility] tamsulosin 1 cap(s) orally Active 0.4 mg orally [place] [facility] once a day [facility] ASA 1 tab(s) NA Active 81mg once a day [place] [facility] losartan 1 tab(s) orally Active 50 mg orally [place] [facility] once a day [facility] spironolactone 1 tab(s) orally Active 25 mg orally [place] [facility] bid [facility] Prilosec 1 cap(s) orally Active 20 mg orally [place] [facility] once a day [facility] glimepiride 1 tab(s) orally Active 1 mg orally [place] [facility]ovasc once aday [facility] clopidogrel 1 tab(s) orally Active 75 mg orally [place] [facility] once a day [facility] furosemide 1 tab(s) orally Active 40 mg orally [place] [facility] once a day [facility] carvedilol 1 tab(s) orally Active 6.25 orally 2 [place] [facility] times a day [facility] Glumetza 1 tab(s) orally Active 500 mg orally [place] [facility] bid [facility] isosorbide 1 tab(s) orally Active 30 mg orally [place] [facility] dinitrate every 8 hrs [facility] Synthroid 1 tab(s) orally Active 200 mcg (0.2 [place] [facility] mg) orally once [facility] a day hydralazine 1 tab(s) orally Active 25 mg orally 4 [place] [facility] times a day [facility] omeprazole 1 cap(s) orally Active 20 mg orally [place] [facility] once a day [facility] Humalog 13 units subcutane Active [...] [facility] NKDA Assertion Drug Active [facility] Immunizations Immunization Date Site Status Last Comments Source Given Updated diphtheria/pertu Right completed [place] [facility], 8 deltoid [place] acel/tetanus adult pneumococcal Right completed [place] 13-valent 6 deltoid [place], vaccine [place] Results Order Name Results Value Reference Date Interpretation Comments Source Range URINE AND UA <=1.0 0.1 - 1.0 08/06 [facility] Urobilinogen mg/dL [place] URINE AND UA RBC 1 /HPF 0 - 2 08/06 [facility] [place] URINE AND UA Mucus Few /LPF None Seen 08/06 [facility] /LPF [place] URINE AND UA Color Yellow Yellow 08/06 [facility] [place] *NA* (08/06/17 2:20 AM) URINE AND UA Turbidity Clear Clear 08/06 [facility] [place] (08/06/17 2:20 AM) URINE AND UA Spec Grav 1.006 <=1.030 08/06 [facility] [place] URINE AND UA Sq Epi Occasional Few /LPF 08/06 [facility] /LPF [place] URINE AND UA WBC 1 /HPF 0 - 5 08/06 [facility] [place] URINE AND UA Nitrite Negative Negative 08/06 [facility] [place] (08/06/17 2:20 AM) URINE AND UA Leuk Est Negative Negative 08/06 [facility] (08/06/17 2:20 AM) URINE AND UA pH 5.0 5.0 - 8.0 08/06 [facility] [place] URINE AND UA Ketones Negative Negative 08/06 [facility] mg/dL mg/dL [place] URINE AND UA Bili Negative Negative 08/06 [facility] [place] *NA* (08/06/17 2:20 AM) URINE AND UA Protein Negative Negative 08/06 [facility] mg/dL mg/dL [place] URINE AND UA Glucose Negative Negative 08/06 [facility] mg/dL mg/dL [place] URINE AND UA Blood Negative Negative 08/06 [facility] (08/06/17 2:20 AM) CHEM PANEL A/G Ratio 1.1 0.7 - 1.6 08/06 [facility] CHEM PANEL AGAP 13.0 meq/L 10.0 - 02/27 The 20.0 [facility] CHEM PANEL Globulin 3.2 g/dL 2.7 - 4.2 08/06 [facility] CHEM PANEL B/C Ratio 21 6 - 25 08/06 [facility] CHEM PANEL CO2 25 meq/L 24 - 32 08/06 [facility] CHEM PANEL Chloride Lvl 102 meq/L 95 - 109 08/06 [facility] CHEM PANEL Potassium 4.0 meq/L 3.5 - 5.1 08/06 The Lvl /2017 [facility] CHEM PANEL Sodium Lvl 136 meq/L 135 - 145 08/06 The [email or web address] CHEM PANEL BUN 38 mg/dL 7 - 22 08/06 The [facility] CHEM PANEL Glucose Lvl 246 mg/dL 70 - 99 08/06 [facility] CHEM PANEL Creatinine 1.81 mg/dL 0.50 - 08/06 The Lvl 1.40 [facility] CHEM PANEL Alk Phos 134 unit/L 39 - 136 08/06 The [facility] CHEM PANEL Bili Total 0.8 mg/dL 0.2 - 1.3 08/06 The [facility] CHEM PANEL ALT 29 unit/L 0 - 65 08/06 The [facility] CHEM PANEL Albumin Lvl 3.5 g/dL 3.5 - 5.0 08/06 The [facility] CHEM PANEL AST 28 unit/L 0 - 37 08/06 [facility] CHEM PANEL Total 6.7 g/dL 6.4 - 8.4 08/06 The Protein [facility] CHEM PANEL Calcium Lvl 8.5 mg/dL 8.5 - 10.5 08/06 The [email or web address] CHEM PANEL eGFR 34 08/06 Result Comment: [...] is not recommended in the following populations: [facility] 3m2 Individuals with unstable creatinine concentrations, including [...] 23.8 pg 27.0 - 08/06 The 31.0 [facility] HEMATOLOGY RDW 18.4 % 11.5 - 08/06 The 14.5 [facility] HEMATOLOGY MPV 9.3 fL 7.4 - 10.4 08/06 The [facility] HEMATOLOGY Platelet 135 K/CMM 133 - 450 08/06 The [facility] HEMATOLOGY MCHC 31.9 g/dL 32.0 - 08/06 The 36.0 [facility] HEMATOLOGY Hct 30.4 % 42.0 - 08/06 The 54.0 [facility] HEMATOLOGY MCV 74.5 fL 80.0 - 08/06 The 94.0 [facility] HEMATOLOGY RBC 4.08 M/CMM 4.70 - 08/06 The 6.10 [facility] HEMATOLOGY Hgb 9.7 g/dL 14.0 - 08/06 The 18.0 [facility] HEMATOLOGY WBC 4.8 K/CMM 3.7 - 10.4 08/06 The [facility] HEMATOLOGY PTT 30.0 s 22.9 - 08/06 The 35.8 [facility] HEMATOLOGY PT 14.6 s 12.0 - 08/06 The 14. [facility] HEMATOLOGY INR 1.14 0.85 - 08/06 The 1. [facility] HEMATOLOGY Monocytes # 0.4 K/CMM 0.0 - 0.8 08/06 [facility] HEMATOLOGY Eosinophils 0.2 K/CMM 0.0 - 0.5 08/06 The # [facility] HEMATOLOGY Microcyte 1+ None Seen 08/06 [facility] *ABN* (08/06/17 1:09 AM) HEMATOLOGY Basophils 0.5 % 0.0 - 1.0 08/06 [facility] HEMATOLOGY Segs-Bands # 3.4 K/CMM 1.5 - 8.1 08/06 The [facility] HEMATOLOGY Lymphocytes 0.8 K/CMM 1.0 - 5.5 08/06 The # /2017 [facility] HEMATOLOGY Lymphocytes 15.8 % 20.0 - 08/06 The 40.0 [facility] HEMATOLOGY Monocytes 8.5 % 2.0 - 12.0 08/06 [facility] HEMATOLOGY Segs 70.6 % 45.0 - 08/06 The 75.0 [facility] HEMATOLOGY Eosinophils 4.6 % 0.0 - 4.0 08/06 [facility] Brain wo Brain wo CT HEAD WITHOUT CONTRAST 08/[address] /2017 - [facility] Clinical Indication: - head trauma, plavix. [...] and mild generalized cerebral volume loss. SL: [id number] CARDIAC BNP 1358 pg/mL <=100 05/30 ENZYMES pg/mL /2016 [facility] CARDIAC Troponin-I 0.02 ng/mL 0.00 - 05/30 ENZYMES 0.40 [facility] ELECTROLYT AGAP 10.8 meq/L 10.0 - 05/30 ES 20.0 [facility] ELECTROLYT A/G Ratio 1.4 0.7 - 1.6 05/30 ES /2016 [facility] ELECTROLYT B/C Ratio 15 6 - 25 05/30 [facility] ELECT[facility] Globulin 2.7 g/dL 2.7 - 4.2 05/30 [facility] ELECTROLYT eGFR 29 05/30 Result Comment: The eGFR is calculated using the CKD-EPI formula. In most young, healthy individuals the eGFR will be >90 mL/ min/1.73m2. The eGFR declines with age. An eGFR of 60-89 may be normal in mL/min/1.7 /2016 some populations, particularly the elderly, for whom the CKD-EPI formula has not been extensively validated. Use of the eGFR is not recommended in the following populations: [facility] 3m2 Individuals with unstable creatinine concentrations, [...] Potassium 3.8 meq/L 3.5 - 5.1 05/30 [facility] ELECTROLYT Chloride Lvl 106 meq/L [...] Phos 89 unit/L 39 - 136 05/30 [facility] ELECT[facility]OLYT Glucose Lvl 126 mg/dL 70 - 99 05/30 [facility] ELECTROLYT BUN 31 mg/dL 7 - 22 05/30 ES /2016 [facility] HEMATOLOGY PT 14.7 s 12.0 - 05/30 MH 14.7 [facility] HEMATOLOGY INR 1.15 0.85 - 05/30 MH 1.17 [facility] HEMATOLOGY RDW 16.9 % 11.5 - 05/30 MH 14. [facility] HEMATOLOGY WBC 3.6 K/CMM 3.7 - 10.4 05/30 [facility] HEMATOLOGY RBC 3.64 M/CMM 4.70 - 05/30 MH 6.10 [facility] HEMATOLOGY MCH 26.1 pg 27.0 - 05/30 MH 31.0 [facility] HEMATOLOGY MCV 81.6 fL 80.0 - 05/30 MH 94.0 [facility] HEMATOLOGY Hct 29.7 % 42.0 - 05/30 MH 54.0 [facility] HEMATOLOGY MCHC 31.9 g/dL 32.0 - 05/30 MH 36.0 [facility] HEMATOLOGY Hgb 9.5 g/dL 14.0 - 05/30 18.0 [facility] HEMATOLOGY Platelet 98 K/CMM 133 - 450 05/30 [facility] HEMATOLOGY MPV 9.3 fL 7.4 - 10.4 05/30 /2016 [facility] HEMATOLOGY Eosinophils 0.1 K/CMM 0.0 - 0.5 05/30 MH # /2016 [facility] HEMATOLOGY Eosinophils 1.8 % 0.0 - 4.0 05/30 [facility] HEMATOLOGY Monocytes 9.8 % 2.0 - 12.0 05/30 [facility] HEMATOLOGY Monocytes # 0.4 K/CMM 0.0 - 0.8 05/30 [facility] HEMATOLOGY Segs-Bands # 2.3 K/CMM 1.5 - 8.1 05/30 [facility] HEMATOLOGY Basophils 0.4 % 0.0 - 1.0 05/30 [facility] HEMATOLOGY Lymphocytes 24.4 % 20.0 - 05/30 40.0 [facility] HEMATOLOGY Lymphocytes 0.9 K/CMM 1.0 - 5.5 05/30 # /2016 [facility] HEMATOLOGY Segs 63.6 % 45.0 - 05/30 75.0 [facility] Chest Chest 1view Clinical Indication: - chf; 05/30 - 1view DX /2016 - [facility] Comparison: December 28, 2015 Read by: [...] placement. 2. No focal infiltrates . SL: [id number] CHEM PANEL eGFR 41 11/03 Result Comment: [...] is not recommended in the following populations: [place] [address] Individuals with unstable creatinine concentrations, including patients [...] Lvl 8.5 mg/dL 8.5 - 10.5 11/03 [facility] CHEM PANEL AGAP 10.9 meq/L 10.0 - 11/03 MH 20.0 [facility] CHEM PANEL Chloride Lvl 105 meq/L 95 - 109 11/03 [facility] CHEM PANEL CO2 27 meq/L 24 - 32 11/03 [facility] CHEM PANEL Sodium Lvl 139 meq/L 135 - 145 11/03 [facility] CHEM PANEL Potassium 3.9 meq/L 3.5 - 5.1 11/03 MH Lvl /2016 [facility] CHEM PANEL BUN 20 mg/dL 7 - 22 11/03 [facility] CHEM PANEL Glucose Lvl 165 mg/dL 70 - 99 11/03 [facility] CHEM PANEL Creatinine 1.54 mg/dL 0.50 - 11/03 Lvl 1.40 /2016 [facility] CARDIAC BNP 720 pg/mL <=100 11/03 EN[facility] pg/mL /2016 [facility] CHEM PANEL Phosphorus 4.1 mg/dL 2.5 - 4.5 11/03 [facility] CHEM PANEL Magnesium 1.9 mg/dL 1.8 - 2.4 11/03 [facility]vl [facility] LIPIDS VLDL 26 11/03 [facility] LIPIDS Trig 129 mg/dL <=149 11/03 mg/dL /2016 [facility] LIPIDS HDL 32 mg/dL >=61 mg/dL 11/03 [facility] LIPIDS Chol 97 mg/dL <=199 11/03 mg/dL [facility] LIPIDS LDL 39 mg/dL <=99 mg/dL 11/03 (Calculated) [facility] LIPIDS CHD Risk 3.03 4.00 - 11/03 7.30 [facility] CARDIAC Troponin-I 0.04 ng/mL 0.00 - 11/03 [facility] 0.40 [facility] CARDIAC Total CK 68 unit/L 11/03 ENZYMES /2016 [facility] CARDIAC Total CK 65 unit/L 12 - 11/03 ENZYMES /2017 [facility] CARDIAC Troponin-I 0.04 ng/mL 0.00 - 11/03 [facility] 0.40 [facility] CARDIAC BNP 626 pg/mL <=100 11/02 EN[facility] pg/mL /2016 [facility] CARDIAC Troponin-I 0.04 ng/mL 0.00 - 11/02 EN[facility]YM[facility] 0.40 /2016 [facility] CARDIAC Total CK 64 unit/L 11/02 ENZYMES /2016 [facility] CARDIAC Total CK 64 unit/L 11/02 ENZYMES /2016 [facility] CARDIAC Troponin-I 0.05 ng/mL 0.00 - 11/02 EN[facility] 0.40 /2016 [facility] CHEM PANEL Magnesium 1.9 mg/dL 1.8 - 2.4 11/02 [facility] CHEM PANEL B/C Ratio 13 6 - 25 11/02 [facility] CHEM PANEL AGAP 13.6 meq/L 10.0 - 11/02 20.0 [facility] CHEM PANEL Globulin 2.9 g/dL 2.7 - 4.2 11/02 [facility] CHEM PANEL A/G Ratio 1.2 0.7 - 1.6 11/02 [facility] CHEM PANEL eGFR 39 11/02 Result Comment: [...] is not recommended in the following populations: [place] [address] Individuals with unstable creatinine concentrations, including patients [...] Total 6.3 g/dL 6.4 - 8.4 11/02 [facility] CHEM PANEL Calcium Lvl 8.5 mg/dL [...] Lvl 320 mg/dL 70 - 99 11/02 [facility] HEMATOLOGY Lymphocytes 0.9 K/CMM 1.0 - 5.5 11/02 # [facility] HEMATOLOGY Segs-Bands # 2.4 K/CMM 1.5 - 8.1 11/02 [facility] HEMATOLOGY Eosinophils 0.1 K/CMM 0.0 - 0.5 11/02 MH # /2016 [facility] HEMATOLOGY Monocytes # 0.3 K/CMM 0.0 - 0.8 11/02 [facility] HEMATOLOGY Segs 66.4 % 45.0 - 11/02 MH 75.0 [facility] HEMATOLOGY Lymphocytes 24.2 % 20.0 - 11/02 MH 40.0 /2016 [facility] HEMATOLOGY Monocytes 7.1 % 2.0 - 12.0 11/02 [facility] HEMATOLOGY Eosinophils 1.9 % 0.0 - 4.0 11/02 [facility] HEMATOLOGY Basophils 0.4 % 0.0 - 1.0 11/02 [facility] HEMATOLOGY Platelet 97 K/CMM 133 - 450 11/02 [facility] HEMATOLOGY MPV 9.8 fL 7.4 - 10.4 11/02 [facility] HEMATOLOGY RDW 13.8 % 11.5 - 11/02 MH 14.5 [facility] HEMATOLOGY WBC 3.6 K/CMM 3.7 - 10.4 11/02 [facility] HEMATOLOGY RBC 3.45 M/CMM 4.70 - 11/02 MH 6.10 [facility] HEMATOLOGY Hgb 10.5 g/dL 14.0 - 11/02 MH 18.0 [facility] HEMATOLOGY Hct 30.8 % 42.0 - 11/02 MH 54.0 [facility] HEMATOLOGY MCV 89.3 fL 80.0 - 11/02 MH 94.0 [facility] HEMATOLOGY MCHC 34.2 g/dL 32.0 - 11/02 MH 36.0 [facility] HEMATOLOGY MCH 30.6 pg 27.0 - 11/02 MH 31.0 [facility] Hgb A1C 7.4 % <=5.6 % 11/02 CHEMISTRY [facility] CHEM PANEL eGFR 52 12/29 Result [...] is not recommended in the following populations: [facility] 3m2 Individuals with unstable creatinine concentrations, [...] Lvl 149 mg/dL 70 - 99 12/29 [facility] CHEM PANEL Potassium 4.1 meq/L 3.5 - 5.1 12/29 Lv [facility] CHEM PANEL Chloride Lvl 108 meq/L 95 - 109 12/29 [facility] CHEM PANEL CO2 30 meq/L 24 - 32 12/29 [facility] CHEM PANEL Calcium Lvl 8.6 mg/dL 8.5 - 10.5 12/29 [facility] CHEM PANEL BUN 19 mg/dL 7 - 22 12/29 [facility] CHEM PANEL Creatinine 1.28 mg/dL 0.50 - 12/29 Lvl 1.40 [facility] CHEM PANEL Sodium Lvl 145 meq/L 135 - 145 12/29 [facility] CHEM PANEL AGAP 11.1 meq/L 10.0 - 12/29 MH 20.0 [facility] CHEM PANEL Magnesium 2.1 mg/dL 1.8 - 2.4 12/29 Lv [facility] HEMATOLOGY MCV 93.2 fL 80.0 - 12/29 MH 94.0 [facility] HEMATOLOGY Platelet 106 K/CMM 133 - 450 12/29 [facility] HEMATOLOGY MPV 9.3 fL 7.4 - 10.4 12/29 [facility] HEMATOLOGY MCH 31.2 pg 27.0 - 12/29 MH 31.0 [facility] HEMATOLOGY RDW 14.7 % 11.5 - 12/29 MH 14.5 [facility] HEMATOLOGY MCHC 33.5 g/dL 32.0 - 12/29 MH 36.0 [facility] HEMATOLOGY WBC 4.1 K/CMM 3.7 - 10.4 12/29 [facility] HEMATOLOGY RBC 3.63 M/CMM 4.70 - 12/29 MH 6.10 /2015 [facility] HEMATOLOGY Hct 33.8 % 42.0 - 12/29 MH 54.0 [facility] HEMATOLOGY Hgb 11.3 g/dL 14.0 - 12/29 MH 18.0 /2015 [facility] HEMATOLOGY Eosinophils 0.2 K/CMM 0.0 - 0.5 12/29 MH # /2015 [facility] HEMATOLOGY Segs-Bands # 2.4 K/CMM 1.5 - 8.1 12/29 [facility] HEMATOLOGY Monocytes # 0.4 K/CMM 0.0 - 0.8 12/29 [facility] HEMATOLOGY Lymphocytes 1.1 K/CMM 1.0 - 5.5 12/29 MH # /2015 [facility] HEMATOLOGY Basophils 0.4 % 0.0 - 1.0 12/29 [facility] HEMATOLOGY Eosinophils 4.2 % 0.0 - 4.0 12/29 /2015 [facility] HEMATOLOGY Segs 58.6 % 45.0 - 12/29 MH 75.0 /2015 [facility] HEMATOLOGY Monocytes 10.3 % 2.0 - 12.0 12/29 [facility] HEMATOLOGY Lymphocytes 26.5 % 20.0 - 12/29 40.0 /2015 [facility] HEMATOLOGY POC 128 s 12/28 MH [facility] Clotting Time HEMATOLOGY PTT 75.4 s 22.9 - 12/28 MH 35.8 /2015 [facility] CHEM PANEL Magnesium 2.0 mg/dL 1.8 - 2.4 12/28 Lvl [facility] CHEM PANEL Glucose Lvl 116 mg/dL 70 - 99 12/28 [facility] CHEM PANEL Potassium 3.8 meq/L 3.5 - 5.1 12/28 Lvl [facility] CHEM PANEL AGAP 13.8 meq/L 10.0 - 12/28 MH 20.0 [facility] CHEM PANEL CO2 27 meq/L 24 - 32 12/28 [facility] CHEM PANEL Sodium Lvl 143 meq/L 135 - 145 12/28 [facility] CHEM PANEL Chloride Lvl 106 meq/L 95 - 109 12/28 [facility] CHEM PANEL Creatinine 1.28 mg/dL 0.50 - 12/28 [facility] Lvl 1.40 [facility] CHEM PANEL Calcium Lvl [...] 60-89 may be normal in MH mL/min/1.7 /2015 some populations, particularly the elderly, for whom the CKD-EPI formula has not been extensively validated. Use of the eGFR is not recommended in the following populations: [facility] 3m2 Individuals with unstable creatinine concentrations, [...] 105 K/CMM 133 - 450 12/28 /2015 [facility] HEMATOLOGY RDW 14.6 % 11.5 - 12/28 14.5 [facility] HEMATOLOGY MCH 30.7 pg 27.0 - 12/28 MH 31.0 [facility] HEMATOLOGY MCHC 33.2 g/dL 32.0 - 12/28 MH 36.0 /2015 [facility] HEMATOLOGY MPV 9.5 fL 7.4 - 10.4 12/28 /2015 [facility] HEMATOLOGY Hct 33.6 % 42.0 - 12/28 MH 54.0 /2015 [facility] HEMATOLOGY Hgb 11.2 g/dL 14.0 - 12/28 18.0 /2015 [facility] HEMATOLOGY RBC 3.63 M/CMM 4.70 - 12/28 MH 6.10 /2015 [facility] HEMATOLOGY MCV 92.5 fL 80.0 - 12/28 94.0 /2015 [facility] HEMATOLOGY WBC 4.3 K/CMM 3.7 - 10.4 12/28 [facility] HEMATOLOGY PTT 47.5 s 22.9 - 12/28 35.8 /2015 [facility] LIPIDS VLDL 45 12/28 [facility] LIPIDS LDL 69 mg/dL <=99 mg/dL 12/28 (Calculated) [facility] LIPIDS HDL 31 mg/dL >=61 mg/dL 12/28 [facility] LIPIDS CHD Risk 4.68 4.00 - 12/28 MH 7.30 /2015 [facility] LIPIDS Trig 225 mg/dL <=149 12/28 mg/dL /2015 [facility] LIPIDS Chol 145 mg/dL <=199 12/28 MH mg/dL /2015 [facility] CARDIAC Troponin-I 0.47 ng/mL 0.00 - 12/28 ENZYMES 0.40 /2016 [facility] CARDIAC Total CK 157 unit/L 12 - 191 12/28 MH ENZYMES /2016 [facility] CARDIAC CK MB Index 3.8 0.0 - 2.5 12/28 MH ENZYMES /2016 [facility] CARDIAC CK MB 5.9 ng/mL 0.5 - 3.6 12/28 MH ENZYMES /2016 [facility] HEMATOLOGY PTT 63.8 s 22.9 - 12/28 MH 35.8 /2016 [facility] CARDIAC Troponin-I 0.71 ng/mL 0.00 - 12/28 Result MH ENZYMES 0.40 Comment: [facility] Critical Result(s) called to Ghazal Michael RN at 12/28/2015 20:26 by LS. Read back OK. CARDIAC Total CK 169 unit/L 12 - 191 12/28 MH ENZYMES /2015 [facility] CARDIAC CK MB Index 3.8 0.0 - 2.5 12/28 MH ENZYMES /2016 [facility] CARDIAC CK MB 6.5 ng/mL 0.5 - 3.6 12/28 MH ENZYMES /2015 [facility] CARDIAC CK MB Index 4.9 0.0 - 2.5 12/27 MH ENZYMES /2015 [facility] CARDIAC CK MB 8.8 ng/mL 0.5 - 3.6 12/27 MH ENZYMES /2016 [facility] CARDIAC Troponin-I 0.69 ng/mL 0.00 - 12/27 Result ENZYMES 0.40 Comment: [facility] Critical Result(s) called to Gris Caba RN at 12/28/2015 16:14 by LS. Read back OK. CARDIAC Total CK 180 unit/L 12 - 191 12/27 MH ENZYMES /2015 [facility] CARDIAC BNP 402 pg/mL <=100 12/27 [facility] pg/mL /2015 [facility] CHEM PANEL Lipase Lvl 73 unit/L 73 - 393 12/27 [facility] CHEM PANEL A/G Ratio 1.1 0.7 - 1.6 12/27 MH /2015 [facility] CHEM PANEL Globulin 3.3 g/dL 2.0 - 4.0 12/27 [facility] CHEM PANEL B/C Ratio 14 6 - 25 12/27 [facility] CHEM PANEL AGAP 9.6 meq/L 10.0 - 12/27 MH 20.0 /2015 [facility] CHEM PANEL eGFR 43 12/27 Result Comment: The eGFR is calculated using the CKD-EPI formula. In most young, healthy individuals the eGFR will be >90 mL/ min/1.73m2. The eGFR declines with age. An eGFR of 60-89 may be normal in MH mL/min/1.7 /2015 some populations, particularly the elderly, for whom the CKD-EPI formula has not been extensively validated. Use of the eGFR is not recommended in the following populations: [facility] 3m2 Individuals with unstable creatinine concentrations, [...] Phos 83 unit/L 39 - 136 12/27 [facility] CHEM PANEL AST 30 unit/L 0 - 37 12/27 [facility] CHEM PANEL ALT 29 unit/L 0 - 65 12/27 [facility] CHEM PANEL Bili Total 0.9 mg/dL 0.2 - 1.3 12/27 [facility] CHEM PANEL CO2 29 meq/L 24 - 32 12/27 [facility] CHEM PANEL Chloride Lvl 104 meq/L 95 - 109 12/27 [facility] CHEM PANEL Calcium Lvl 9.1 mg/dL 8.5 - 10.5 12/27 [facility] CHEM PANEL Albumin Lvl 3.6 g/dL 3.5 - 5.0 12/27 [facility] CHEM PANEL Total 6.9 g/dL 6.4 - 8.4 12/27 [facility] CHEM PANEL Creatinine 1.50 mg/dL 0.50 - 12/27 MH Lvl 1.40 /2015 [facility] CHEM PANEL Sodium Lvl 139 meq/L 135 - 145 12/27 [facility] CHEM PANEL Potassium 3.6 meq/L 3.5 - 5.1 12/27 MH Lvl /2015 [facility] CHEM PANEL Glucose Lvl 178 mg/dL 70 - 99 12/27 [facility] CHEM PANEL BUN 21 mg/dL 7 - 22 12/27 [facility] HEMATOLOGY Eosinophils 0.1 K/CMM 0.0 - 0.5 / MH # /2016 [facility] HEMATOLOGY Monocytes # 0.3 K/CMM 0.0 - 0.8 12/27 [facility] HEMATOLOGY Segs 66.2 % 45.0 - 07 MH 75.0 /2016 [facility] HEMATOLOGY Lymphocytes 0.9 K/CMM 1.0 - 5.5 / MH # /2016 [facility] HEMATOLOGY Basophils 0.6 % 0.0 - 1.0 12/27 MH /2015 [facility] HEMATOLOGY Segs-Bands # 2.8 K/CMM 1.5 - 8.1 12/27 MH /2015 [facility] HEMATOLOGY Monocytes 7.9 % 2.0 - 12.0 12/27 /2015 [facility] HEMATOLOGY Eosinophils 3.2 % 0.0 - 4.0 12/27 MH /2015 [facility] HEMATOLOGY Lymphocytes 22.1 % 20.0 - 12/27 MH 40.0 /2015 [facility] HEMATOLOGY INR 1.04 0.85 - 12/27 MH 1.17 /2016 [facility] HEMATOLOGY PT 13.9 s 12.0 - 12/27 14.7 /2015 [facility] HEMATOLOGY Hct 36.1 % 42.0 - 12/27 54.0 /2015 [facility] Hgb 12.0 g/dL 14.0 - 12/27 18.0 /2015 [facility] HEMATOLOGY RBC 3.89 M/CMM 4.70 - 12/27 6.10 /2015 [facility] HEMATOLOGY MPV 9.4 fL 7.4 - 10.4 12/27 /2015 [facility] HEMATOLOGY Platelet 115 K/CMM 133 - 450 12/27 /2015 [facility] HEMATOLOGY RDW 14.7 % 11.5 - 12/27 14.5 /2015 [facility] HEMATOLOGY MCHC 33.1 g/dL 32.0 - 12/27 36.0 /2015 [facility] HEMATOLOGY MCV 92.8 fL 80.0 - 12/27 94.0 /2015 [facility] HEMATOLOGY MCH 30.7 pg 27.0 - 12/27 31.0 /2015 [facility] HEMATOLOGY WBC 4.2 K/CMM 3.7 - 10.4 12/27 /2015 [facility] Chest Chest 1view Clinical Indication: Left-sided chest pain 12/27 - 1view DX DX /2015 - [facility] Comparison: 05/12/2015 Read by: Edna Schrader [...] IMPRESSION: No acute infiltrates or effusions. SL: [id number] CHEM PANEL Phosphorus 3.7 mg/dL 2.5 - 4.5 05/22 [facility] CHEM PANEL Magnesium 2.1 mg/dL 1.8 - 2.4 05/22 [facility] CHEM PANEL eGFR 49 05/22 Result Comment: The eGFR is calculated using the CKD-EPI formula. In most young, healthy individuals the eGFR will be >90 mL/ min/1.73m2. The eGFR declines with age. An eGFR of 60-89 may be normal in [facility] mL/min/1.7 some populations, particularly the elderly, for whom the CKD-EPI formula has not been extensively validated. Use of the eGFR is not recommended in the following populations: [address] Individuals with unstable creatinine concentrations, including [...] Lvl 8.2 mg/dL 8.5 - 10.5 05/22 [facility] CHEM PANEL Creatinine 1.35 mg/dL 0.50 - 05/22 [facility] Lvl 1.40 [facility] CHEM PANEL Chloride Lvl 108 meq/L 95 - 109 05/22 [facility] CHEM PANEL CO2 26 meq/L 24 - 32 05/22 [facility] CHEM PANEL Sodium Lvl 141 meq/L 135 - 145 05/22 [facility] CHEM PANEL Potassium 4.5 meq/L 3.5 - 5.1 05/22 [facility] CHEM PANEL Glucose Lvl 110 mg/dL 70 - 99 05/[address] CHEM PANEL BUN 22 mg/dL 7 - 22 05/22 [facility] CHEM PANEL AGAP 11.5 meq/L 10.0 - 05/22 [facility] 20.0 /2014 [facility] HEMATOLOGY RDW 13.1 % 11.5 - 12 [place] 14.5 /2014 [facility] HEMATOLOGY MCHC 32.5 g/dL 32.0 - 12 [place] 36.0 /2014 [facility] HEMATOLOGY MCH 32.3 pg 27.0 - 05/22 31.0 /2014 [facility] HEMATOLOGY MCV 99.6 fL 80.0 - 05/22 94.0 /2014 [facility] HEMATOLOGY Hct 31.2 % 42.0 - 05/22 [place] 54.0 /2014 [facility] HEMATOLOGY MPV 9.4 fL 7.4 - 10.4 05/22 /2014 [facility] HEMATOLOGY Platelet 127 K/CMM 133 - 450 05/22 [facility] HEMATOLOGY Hgb 10.1 g/dL 14.0 - 12 [facility] 18.0 /2014 [facility] HEMATOLOGY RBC 3.14 M/CMM 4.70 - 05/22 6.10 /2014 [facility] HEMATOLOGY WBC 4.4 K/CMM 3.7 - 10.4 05/22 /2014 [facility] HEMATOLOGY Eosinophils 0.2 K/CMM 0.0 - 0.5 05/22 [facility] # /2014 [facility] HEMATOLOGY Monocytes # 0.5 K/CMM 0.0 - 0.8 05/22 /2014 [facility] HEMATOLOGY Lymphocytes 19.4 % 20.0 - 12 40.0 /2014 [facility] HEMATOLOGY Segs 64.5 % 45.0 - 05/22 75.0 /2014 [facility] HEMATOLOGY Lymphocytes 0.9 K/CMM 1.0 - 5.5 05/22 /2014 [facility] HEMATOLOGY Segs-Bands # 2.8 K/CMM 1.5 - 8.1 05/22 [facility] HEMATOLOGY Basophils 0.5 % 0.0 - 1.0 05/22 [facility] HEMATOLOGY Eosinophils 3.9 % 0.0 - 4.0 05/22 [facility] HEMATOLOGY Monocytes 11.7 % 2.0 - 12.0 05/22 2014 [facility] HVI VAS HVI VAS INDICATION: groin hematoma 05/22 - [place] Arterial/b Arterial/byp /2014 - [facility] ypass ass Lower This report was dictated by a Electric Spot Welder/ Fellow. I have personally reviewed the images [...] fistula. CARDIAC Troponin-T 0.014 0.000 - 05/21 [facility] ENZYMES ng/mL 0.100 /2014 [facility] CARDIAC Troponin-I 0.04 ng/mL 0.00 - 05/21 [facility] ENZYMES 0.40 /2014 [facility] [facility] CARDIAC Total CK 34 unit/L 12 - 191 05/21 [facility] ENZYMES /2014 [facility] CHEM PANEL eGFR 63 05/21 Result Comment: The eGFR is calculated using the CKD-EPI formula. In most young, healthy individuals the eGFR will be >90 mL/ min/1.73m2. The eGFR declines with age. An eGFR of 60-89 may be normal in [facility] mL/min/1.7 /2014 some populations, particularly the elderly, for whom the CKD-EPI formula has not been extensively validated. Use of the eGFR is not recommended in the following populations: [address] Individuals with unstable creatinine concentrations, including [...] PANEL AGAP 15.1 meq/L 10.0 - 05/21 [place] 20.0 [facility] CHEM PANEL Calcium Lvl 8.5 mg/dL 8.5 - 10.5 05/21 [facility] CHEM PANEL CO2 20 meq/L 24 - 32 12 [facility] CHEM PANEL Creatinine 1.09 mg/dL 0.50 - 12 [facility] Lvl 1.40 [facility] CHEM PANEL BUN 17 mg/dL 7 - 22 05/21 [facility] CHEM PANEL Potassium 4.1 meq/L 3.5 - 5.1 05/21 [facility] /2014 [facility] CHEM PANEL Sodium Lvl 140 meq/L 135 - 145 05/21 [facility] CHEM PANEL Glucose Lvl 177 mg/dL 70 - 99 05/21 [facility] CHEM PANEL Chloride Lvl 109 meq/L 95 - 109 05/21 2014 [facility] CHEM PANEL Phosphorus 4.2 mg/dL 2.5 - 4.5 05/21 [facility] CHEM PANEL Magnesium 2.2 mg/dL 1.8 - 2.4 05/21 [facility] /2014 [facility] HEMATOLOGY Macrocyte 1+ None [facility] 12[facility]13 [facility] HEMATOLOGY Lymphocytes 0.6 K/CMM 1.0 - 5.5 05/21 [facility] # /2014 [facility] HEMATOLOGY Basophils 0.4 % 0.0 - 1.0 05/21 [facility] HEMATOLOGY Monocytes # 0.4 K/CMM 0.0 - 0.8 05/21 [facility] [address] [place] [address] HEMATOLOGY Lymphocytes 15.6 % 20.0 - 05/21 [facility] 40.0 [facility] HEMATOLOGY Segs-Bands # 3.0 K/CMM 1.5 - 8.1 05/21 [facility] HEMATOLOGY Monocytes 8.8 % 2.0 - 12.0 12 [facility] HEMATOLOGY Eosinophils 0.7 % 0.0 - 4.0 05/21 [facility] HEMATOLOGY Segs 74.5 % 45.0 - 12 [facility] 75.0 [facility] HEMATOLOGY INR 1.11 0.85 - 12 [facility] 1.17 [facility] HEMATOLOGY PTT 30.1 s 22.9 - 12/ [place] 35.8 /2014 [facility] HEMATOLOGY PT 14.6 s 12.0 - 12 [facility] 14.7 [facility] HEMATOLOGY Platelet 117 K/CMM 133 - 450 05/21 [facility] HEMATOLOGY MPV 9.6 fL 7.4 - 10.4 05/21 [facility] HEMATOLOGY MCH 33.1 pg 27.0 - 05/21 31.0 [facility] HEMATOLOGY MCHC 32.9 g/dL 32.0 - 05/21 36.0 [facility] HEMATOLOGY RDW 13.2 % 11.5 - 05/21 14.5 [facility] HEMATOLOGY Hgb 10.2 g/dL 14.0 - 05/21 [place] 18.0 [facility] HEMATOLOGY Hct 30.9 % 42.0 - 05/21 [place] 54.0 [facility] HEMATOLOGY MCV 100.6 fL 80.0 - 05/21 [facility] 94.0 [facility] HEMATOLOGY RBC 3.07 M/CMM 4.70 - 05/21 6.10 [facility] HEMATOLOGY WBC 4.0 K/CMM 3.7 - 10.4 05/21 [facility] PARATHYROI Ca Norm WB 1.13 1.05 - 05/21 [facility] D PROFILE mMol/L 1. [facility] PARATHYROI Ca Ion WB 1.09 1.05 - 05/21 [facility] D PROFILE mMol/L 1. [facility] CHEM PANEL Lactic Acid 0.7 mMol/L 0.5 - 2.2 05/20 [facility] CHEM PANEL Magnesium 1.4 mg/dL 1.8 - 2.4 05/20 [facility] CHEM PANEL Phosphorus 3.5 mg/dL 2.5 - 4.5 05/20 [facility] CHEM PANEL eGFR 78 05/20 Result Comment: The eGFR is calculated using the CKD-EPI formula. In most young, healthy individuals the eGFR will be >90 mL/ min/1.73m2. The eGFR declines with age. An eGFR of 60-89 may be normal in [facility] mL/min/1. some populations, particularly the elderly, for whom the CKD-EPI formula has not been extensively validated. Use of the eGFR is not recommended in the following populations: [place] [address] [facility] Individuals with unstable creatinine concentrations, including patients [...] Calcium Lvl 6.5 mg/dL 8.5 - 10.5 12 Result Comment: [facility] Result(s) called to HANK TANNER at 05/20/2015 14:22_ by CN_. Read back OK. CHEM PANEL AGAP 14.7 meq/L 10.0 - 12 [place] 20.0 [facility] CHEM PANEL Glucose Lvl 108 mg/dL 70 - 99 05/20 [facility] CHEM PANEL Sodium Lvl 145 meq/L 135 - 145 05/20 [facility] CHEM PANEL Potassium 2.7 meq/L 3.5 - 5.1 05/20 Result [facility] Comment: [facility] Result(s) called to HANK TANNER at 05/20/2015 14:22_ by CN_. Read back OK. CHEM PANEL BUN 12 mg/dL 7 - 22 05/20 /2014 [facility] CHEM PANEL Creatinine 0.92 mg/dL 0.50 - 05/20 [facility] Lvl 1.40 [facility] CHEM PANEL Chloride Lvl 113 meq/L 95 - 109 05/20 [facility] CHEM PANEL CO2 20 meq/L 24 - 32 05/20 [facility] HEMATOLOGY PTT >200 22.9 - 05/20 Result [facility] seconds 35.8 /2015 Comment: [facility] Result(s) called to Benigno Jennings at 05/20/2015 14:[address] Read back OK. HEMATOLOGY PT 16.3 s 12.0 - 12 [place] 14.7 [facility] HEMATOLOGY INR 1.28 0.85 - 05/20 [place] 1.17 [facility] HEMATOLOGY Platelet 108 K/CMM 133 - 450 05/20 [facility] HEMATOLOGY MPV 9.8 fL 7.4 - 10.4 05/20 [facility] HEMATOLOGY MCV 100.5 fL 80.0 - 05/20 [place] 94.0 /2014 [facility] HEMATOLOGY RDW 13.3 % 11.5 - 12 [place] 14.5 [facility] HEMATOLOGY MCHC 32.9 g/dL 32.0 - 12 [place] 36.0 /2014 [facility] HEMATOLOGY MCH 33.1 pg 27.0 - 05/20 31.0 [facility] HEMATOLOGY RBC 2.95 M/CMM 4.70 - 05/20 6.10 /2014 [facility] HEMATOLOGY Hct 29.7 % 42.0 - 05/20 [facility] 54.0 /2014 [facility] HEMATOLOGY Hgb 9.8 g/dL 14.0 - 05/20 18.0 /2014 [facility] HEMATOLOGY WBC 3.6 K/CMM 3.7 - 10.4 12 /2014 [facility] HEMATOLOGY Monocytes 11.3 % 2.0 - 12.0 05/20 /2014 [facility] HEMATOLOGY Segs 60.4 % 45.0 - 05/20 [facility] 75.0 /2014 [facility] HEMATOLOGY Lymphocytes 23.3 % 20.0 - 05/20 [facility] 40.0 /2014 [facility] HEMATOLOGY Segs-Bands # 2.2 K/CMM 1.5 - 8.1 05/20 [facility] HEMATOLOGY Lymphocytes 0.9 K/CMM 1.0 - 5.5 05/20 [facility] # /2014 [facility] HEMATOLOGY Basophils 0.3 % 0.0 - 1.0 05/20 [facility] HEMATOLOGY Eosinophils 4.7 % 0.0 - 4.0 05/20 [facility] HEMATOLOGY Monocytes # 0.4 K/CMM 0.0 - 0.8 05/[address] HEMATOLOGY Macrocyte 1+ None Seen 05[facility] 1:48 PM[facility] HEMATOLOGY Eosinophils 0.2 K/CMM 0.0 - 0.5 05/20 [facility] # /2014 [facility] PARATHYROI Ca Ion WB 1.12 1.05 - 05/20 [facility] D PROFILE mMol/L 1. [facility] PARATHYROI Ca Norm WB 1.09 1.05 - 05/20 [facility] D PROFILE mMol/L 1. [facility] CHEM PANEL Globulin 3.0 g/dL 2.0 - 4.0 05/20 [facility] /[address] [place] [address] CHEM PANEL B/C Ratio 15 6 - 25 05/20 [facility] CHEM PANEL Bili Total 0.8 mg/dL 0.2 - 1.3 05/20 [facility] CHEM PANEL A/G Ratio 1.1 0.7 - 1.6 05/20 [facility] CHEM PANEL Alk Phos 73 unit/L 39 - 136 05/20 [facility] CHEM PANEL Albumin Lvl 3.2 g/dL 3.5 - 5.0 05/20 [facility] CHEM PANEL ALT 30 unit/L 0 - 65 05/20 [facility] CHEM PANEL AST 20 unit/L 0 - 37 05/20 [facility] CHEM PANEL Total 6.2 g/dL 6.4 - 8.4 05/20 [facility] HEMATOLOGY INR 1.06 0.85 - 05/20 [place] 1.17 [facility] HEMATOLOGY PT 14.1 s 12.0 - 05/20 [place] 14.7 [facility] HEMATOLOGY PTT 67.4 s 22.9 - 05/20 [place] 35. [facility] HEMATOLOGY Eosinophils 0.2 K/CMM 0.0 - 0.5 05/20 [facility] # [facility] CHEM PANEL AST 27 unit/L 0 - 37 05/17 [facility] CHEM PANEL ALT 30 unit/L 0 - 65 05/17 [facility] CHEM PANEL Albumin Lvl 3.0 g/dL 3.5 - 5.0 05/[address] [place] [address] CHEM PANEL Alk Phos 65 unit/L 39 - 136 05/17 [facility] CHEM PANEL B/C Ratio 11 6 - 25 05/[address] [place] [address] CHEM PANEL Bili Total 0.8 mg/dL 0.2 - 1.3 05/[address] [place] [address] CHEM PANEL Total 5.6 g/dL 6.4 - 8.4 05/17 [facility] CHEM PANEL A/G Ratio 1.2 0.7 - 1.6 05/[address] [place] [address] CHEM PANEL Globulin 2.6 g/dL 2.0 - 4.0 05/[address] HEMATOLOGY PTT 58.0 s 22.9 - 07 35.8 [place] CHEM PANEL Phosphorus 3.0 mg/dL 2.5 - 4.5 05/15 [place] CHEM PANEL Magnesium 1.8 mg/dL 1.8 - 2.4 05/15 Lvl /2014 [facility] ELECTROLYT AGAP 8.9 meq/L 10.0 - 05/15 [place] 20.0 /2014 [place] ELECTROLYT eGFR 59 05/15 Result Comment: The eGFR is calculated using the CKD-EPI formula. In most young, healthy individuals the eGFR will be >90 mL/ min/1.73m2. The eGFR declines with age. An eGFR of 60-89 may be normal in [facility] mL/min/1.7 /2014 some populations, particularly the elderly, for whom the CKD-EPI formula has not been extensively validated. Use of the eGFR is not recommended in the following populations: [facility] 3m2 Individuals with unstable creatinine concentrations, [...] Lvl 8.5 mg/dL 8.5 - 10.5 05/15 ES /2014 [facility] ELECTROLYT CO2 27 meq/L 24 - 32 05/15 ES /2014 [facility] ELECTROLYT Sodium Lvl 141 meq/L 135 - 145 05/15 ES [facility] ELECTROLYT Potassium 3.9 meq/L 3.5 - 5.1 05/15 [facility] Lvl /2014 [facility] ELECTROLYT Chloride Lvl 109 meq/L 95 - 109 05/15 ES /2014 [facility] ELECTROLYT Glucose Lvl 117 mg/dL 70 - 99 05/15 ES /2014 [facility] ELECTROLYT Creatinine 1.15 mg/dL 0.50 - 05/15 [facility] Lvl 1.40 /2014 [facility] ELECTROLYT BUN 14 mg/dL 7 - 22 05/15 ES /2014 [facility] HEMATOLOGY Segs-Bands # 2.7 K/CMM 1.5 - 8.1 05/15 [facility] HEMATOLOGY Lymphocytes 1.2 K/CMM 1.0 - 5.5 05/15 # /2015 [facility] HEMATOLOGY Eosinophils 0.2 K/CMM 0.0 - 0.5 05/15 # /2015 [facility] HEMATOLOGY Monocytes # 0.5 K/CMM 0.0 - 0.8 05/15 [facility] HEMATOLOGY Macrocyte 1+ None Seen 05/15 [facility] *ABN* (05/15/15 4:30 AM) HEMATOLOGY Monocytes 11.6 % 2.0 - 12.0 05/15 [facility] HEMATOLOGY Lymphocytes 25.4 % 20.0 - 05/15 [facility] 40.0 /2014 [facility] HEMATOLOGY Segs 57.5 % 45.0 - 12 [facility] 75.0 /2014 [facility] HEMATOLOGY Basophils 0.5 % 0.0 - 1.0 05/15 [facility] HEMATOLOGY Eosinophils 5.0 % 0.0 - 4.0 05/15 [facility] HEMATOLOGY PTT 56.4 s 22.9 - 05/15 MH 35.8 [facility] HEMATOLOGY MCH 33.4 pg 27.0 - 05/15 31.0 [facility] HEMATOLOGY Hct 32.9 % 42.0 - 05/15 54.0 /2014 [facility] HEMATOLOGY MCV 99.6 fL 80.0 - 05/15 94.0 /2014 [facility] HEMATOLOGY Platelet 104 K/CMM 133 - 450 05/15 [facility] HEMATOLOGY MPV 9.5 fL 7.4 - 10.4 05/15 [facility] HEMATOLOGY RDW 13.4 % 11.5 - 12 MH 14.5 [facility] HEMATOLOGY MCHC 33.6 g/dL 32.0 - 05/15 36.0 /2014 [facility] HEMATOLOGY RBC 3.30 M/CMM 4.70 - 05/15 6.10 [facility] HEMATOLOGY Hgb 11.0 g/dL 14.0 - 05/15 18.0 [facility] WBC 4.7 K/CMM 3.7 - 10.4 05/15 [facility] HEMATOLOGY PTT 55.3 s 22.9 - 05/14 35.8 [facility] CHEM PANEL Phosphorus 3.2 mg/dL 2.5 - 4.5 05/14 [facility] CHEM PANEL Magnesium 1.7 mg/dL 1.8 - 2.4 05/14 Lv [facility] CHEM PANEL eGFR 52 05/14 Result Comment: The eGFR is calculated using the CKD-EPI formula. In most young, healthy individuals the eGFR will be >90 mL/ min/1.73m2. The eGFR declines with age. An eGFR of 60-89 may be normal in [facility] mL/min/1.7 /2015 some populations, particularly the elderly, for whom the CKD-EPI formula has not been extensively validated. Use of the eGFR is not recommended in the following populations: [facility] 3m2 Individuals with unstable creatinine concentrations, [...] Lvl 108 meq/L 95 - 109 05/14 [facility] CHEM PANEL Potassium 3.9 meq/L 3.5 - 5.1 05/14 Lvl /2014 [facility] CHEM PANEL Sodium Lvl 142 meq/L 135 - 145 05/14 [facility] CHEM PANEL Creatinine 1.29 mg/dL 0.50 - 05/14 Lvl 1.40 /2014 [facility] CHEM PANEL CO2 26 meq/L 24 - 32 05/14 [facility] CHEM PANEL Calcium Lvl 8.2 mg/dL 8.5 - 10.5 05/14 [facility] CHEM PANEL BUN 20 mg/dL 7 - 22 05/14 [facility] CHEM PANEL Glucose Lvl 111 mg/dL 70 - 99 05/14 [facility] CHEM PANEL AGAP 11.9 meq/L 10.0 - 05/14 20.0 [facility] HEMATOLOGY MPV 9.3 fL 7.4 - 10.4 05/14 [facility] HEMATOLOGY RDW 13.2 % 11.5 - 05/14 [facility] 14.5 /2014 [facility] HEMATOLOGY MCHC 33.2 g/dL 32.0 - 05/14 [facility] 36.0 /2014 [facility] HEMATOLOGY Platelet 102 K/CMM 133 - 450 05/14 [facility] HEMATOLOGY MCH 33.2 pg 27.0 - 05/14 MH 31.0 /2014 [facility] HEMATOLOGY Hct 32.7 % 42.0 - 05/14 MH 54.0 [facility] HEMATOLOGY MCV 99.9 fL 80.0 - 05/14 [facility] 94.0 /2014 [facility] HEMATOLOGY WBC 5.1 K/CMM 3.7 - 10.4 05/14 [facility] HEMATOLOGY RBC 3.27 M/CMM 4.70 - 05/14 MH 6.10 [facility] HEMATOLOGY Hgb 10.9 g/dL 14.0 - 12 MH 18.0 /2015 [facility] HEMATOLOGY Lymphocytes 1.4 K/CMM 1.0 - 5.5 05/14 # /2015 [facility] HEMATOLOGY Monocytes # 0.5 K/CMM 0.0 - 0.8 05/14 /2014 [facility] HEMATOLOGY Segs-Bands # 3.0 K/CMM 1.5 - 8.1 05/14 /2014 [facility] HEMATOLOGY Basophils 0.5 % 0.0 - 1.0 05/14 MH /2014 [facility] HEMATOLOGY Eosinophils 0.2 K/CMM 0.0 - 0.5 05/14 MH # /2015 [facility] HEMATOLOGY Macrocyte 1+ None Seen 05/14 [facility] *ABN* (05/14/15 6:20 AM) HEMATOLOGY Segs 58.7 % 45.0 - 05/14 [facility] 75.0 /2014 [facility] HEMATOLOGY Lymphocytes 26.6 % 20.0 - 12/ MH 40.0 /2014 [facility] HEMATOLOGY Monocytes 10.1 % 2.0 - 12.0 05/14 /2014 [facility] HEMATOLOGY Eosinophils 4.1 % 0.0 - 4.0 05/14 /2014 [facility] CARDIAC Total CK 74 unit/L 12 - 191 05/13 ENZYMES /2014 [facility] CARDIAC Troponin-I 0.69 ng/mL 0.00 - 05/13 Result ENZYMES 0.40 /2015 Comment: [facility] Critical Result(s) called to Taz Hebert RN at 05/13/2015 03:08 by shyann. Read back OK. CHEM PANEL Phosphorus 3.0 mg/dL 2.5 - 4.5 05/13 [facility] CHEM PANEL Magnesium 1.8 mg/dL 1.8 - 2.4 05/13 Lvl /2014 [facility] ELECTROLYT AGAP 9.0 meq/L 10.0 - 12 ES 20.0 /2014 [facility] ELECTROLYT eGFR 48 05/13 Result Comment: The eGFR is calculated using the CKD-EPI formula. In most young, healthy individuals the eGFR will be >90 mL/ min/1.73m2. The eGFR declines with age. An eGFR of 60-89 may be normal in [facility] mL/min/1. some populations, particularly the elderly, for whom the CKD-EPI formula has not been extensively validated. Use of the eGFR is not recommended in the following populations: [facility] 3m2 Individuals with unstable creatinine concentrations, [...] Lvl 8.8 mg/dL 8.5 - 10.5 05/13 [facility] ELECTROLYT CO2 28 meq/L 24 - 32 05/13 [facility] ELECTROLYT Chloride Lvl 108 meq/L 95 - 109 05/13 [facility] ELECTROLYT Potassium 4.0 meq/L 3.5 - 5.1 05/13 [facility] Lvl [facility] ELECTROLYT Glucose Lvl 127 mg/dL 70 - 99 05/13 [facility] ELECTROLYT Sodium Lvl 141 meq/L 135 - 145 05/13 [facility] ELECTROLYT Creatinine 1.36 mg/dL 0.50 - 05/13 [facility] Lvl 1.40 [facility] ELECTROLYT BUN 29 mg/dL 7 - 22 05/13 [facility] HEMATOLOGY Eosinophils 0.1 K/CMM 0.0 - 0.5 05/13 # /2015 [facility] HEMATOLOGY Monocytes # 0.4 K/CMM 0.0 - 0.8 05/13 [facility] HEMATOLOGY Macrocyte 1+ None Seen 05/13 [facility] *ABN* (05/13/15 2:07 AM) HEMATOLOGY Segs-Bands # 2.7 K/CMM 1.5 - 8.1 05/13 [facility] HEMATOLOGY Basophils 0.4 % 0.0 - 1.0 05/13 [place] HEMATOLOGY Eosinophils 3.2 % 0.0 - 4.0 05/13 [facility] HEMATOLOGY Lymphocytes 1.2 K/CMM 1.0 - 5.5 05/13 [place] HEMATOLOGY Monocytes 8.6 % 2.0 - 12.0 05/13 [facility] HEMATOLOGY Lymphocytes 27.6 % 20.0 - 05/13 40.0 [facility] HEMATOLOGY Segs 60.2 % 45.0 - 05/13 75.0 /2014 [facility] HEMATOLOGY WBC 4.4 K/CMM 3.7 - 10.4 05/13 [facility] HEMATOLOGY RBC 3.33 M/CMM 4.70 - 12 MH 6.10 /2014 [facility] HEMATOLOGY Platelet 114 K/CMM 133 - 450 12 /2014 [facility] HEMATOLOGY MPV 10.0 fL 7.4 - 10.4 12 MH /2014 [facility] HEMATOLOGY Hgb 11.3 g/dL 14.0 - 05/13 MH 18.0 /2014 [facility] HEMATOLOGY Hct 33.1 % 42.0 - 05/13 54.0 /2014 [facility] HEMATOLOGY RDW 13.4 % 11.5 - 05/13 MH 14.5 /2014 [facility] HEMATOLOGY MCV 99.4 fL 80.0 - 05/13 94.0 /2014 [facility] HEMATOLOGY MCH 34.0 pg 27.0 - 05/13 31.0 /2014 [facility] HEMATOLOGY MCHC 34.2 g/dL 32.0 - 05/13 36.0 /2014 [facility] LIPIDS Trig 302 mg/dL <=149 05/13 mg/dL /2014 [facility] LIPIDS VLDL 60 05/13 /2014 [facility] LIPIDS Chol 143 mg/dL <=199 05/13 mg/dL /2014 [facility] LIPIDS CHD Risk 5.11 4.00 - 05/13 7.30 /2014 [facility] LIPIDS HDL 28 mg/dL >=61 mg/dL 05/13 /2014 [facility] LIPIDS LDL 55 mg/dL <=99 mg/dL 05/13 (Calculated) [facility] CARDIAC CK MB Index 3.9 0.0 - 2.5 05/13 ENZYMES /2014 [facility] CARDIAC CK MB 3.3 ng/mL 0.5 - 3.6 05/13 ENZYMES /2014 [facility] CARDIAC Total CK 85 unit/L 12 - 191 05/13 ENZYMES /2014 [facility] CARDIAC Troponin-I 0.69 ng/mL 0.00 - 05/13 Result ENZYMES 0.40 /2014 Comment: [facility] Critical Result(s) called to Taz Hebert RN at 05/12/2015 22:11 by shyann. Read back OK. HEMATOLOGY INR 1.14 0.85 - 05/13 1.17 /2014 [facility] HEMATOLOGY PT 14.9 s 12.0 - 05/13 14.7 [facility] CARDIAC BNP 408 pg/mL <=100 05/12 EN[facility]YMES pg/mL /2014 [facility] CARDIAC Troponin-I 1.25 ng/mL 0.00 - 05/12 Result ENZYMES 0.40 /2014 Comment: [facility] Critical Result(s) called to jose alfredo shearer at _05/12/2015 15:38 bybz_. Read back OK. CARDIAC Total CK 112 unit/L 12 - 191 05/12 ENZYMES /2014 [facility] CARDIAC CK MB 4.5 ng/mL 0.5 - 3.6 05/12 ENZYMES /2014 [facility] CARDIAC CK MB Index 4.0 0.0 - 2.5 05/12 ENZYMES [facility] CHEM PANEL Alk Phos 89 unit/L 39 - 136 05/12 [facility] CHEM PANEL B/C Ratio 18 6 - 25 05/12 [facility] CHEM PANEL Bili Total 0.9 mg/dL 0.2 - 1.3 05/12 [facility] CHEM PANEL A/G Ratio 1.1 0.7 - 1.6 05/12 [place] CHEM PANEL Globulin 3.7 g/dL 2.0 - 4.0 05/12 [facility] CHEM PANEL Total 7.6 g/dL 6.4 - 8.4 05/12 Protein [facility] CHEM PANEL Albumin Lvl 3.9 g/dL 3.5 - 5.0 05/12 [facility] CHEM PANEL AST 33 unit/L 0 - 37 05/12 [facility] CHEM PANEL ALT 34 unit/L 0 - 65 05/12 [facility] HEMATOLOGY INR 1.02 0.85 - 05/12 1.17 /2014 [facility] HEMATOLOGY PT 13.7 s 12.0 - 05/12 14.7 /2014 [facility] URINE AND UA Leuk Est Negative Negative 05/12 STOOL [facility] (05/12/15 2:56 PM) URINE AND UA Bili Negative Negative 05/12 STOOL [place] *NA* (05/12/15 2:56 PM) URINE AND UA Blood Negative Negative 05/12 STOOL [facility] (05/12/15 2:56 PM) URINE AND UA Nitrite Negative Negative 05/12 STOOL [facility] (05/12/15 2:56 PM) URINE AND UA 0.2 EU/dL 0.1 - 1.0 05/12 STOOL Urobilinogen /2014 [facility] URINE AND UA pH 5.0 5.0 - 8.0 05/12 STOOL [facility] URINE AND UA Color Yellow Yellow 05/12 STOOL [facility] *NA* (05/12/15 2:56 PM) URINE AND UA Glucose Negative Negative 05/12 STOOL mg/dL mg/dL [facility] URINE AND UA Protein Negative Negative 05/12 [facility] mg/dL mg/dL [facility] URINE AND UA Ketones Negative Negative 05/12 [facility] mg/dL mg/dL [facility] [facility] URINE AND UA Spec Grav 1.010 <=1.030 05/12 [facility] URINE AND UA Turbidity Clear Clear 05/12 STOOL [facility] (05/12/15 2:56 PM) URINE AND UA WBC 0-2 /HPF None Seen 05/12 STOOL /HPF /2014 [facility] URINE AND UA Sq Epi None Seen Few 05/12 [facility] (05/12/15 2:56 PM) URINE AND UA Bacteria None Seen None Seen 05/12 [facility] (05/12/15 2:56 PM) URINE AND UA RBC None Seen 0 - 2 05/12 [facility] (05/12/15 2:56 PM) Chest Chest 1view Name: GILL MADERA 05/12 [facility] 1view DX DX /2014 - [facility] : 1935 Read by: Snehal Fung [...] Renal Renal Stone Name: GILL MADERA 11/13 [facility] Stone CT CT /2013 - Outpatient : 1935 Imaging [facility] Read by: Silverio Mahmood MD Dictated [...] reconstructions were obtained and viewed on a [employer] workstation. FINDINGS: A 5 mm calcified granuloma [...] POC 148 mg/dL 65 - 110 06/29 NE 1Interpretive GLUCOSE Lifscn Data: [facility] TESTING Upper Reportable Limit: 200 mg/dL. BEDSIDE Gluc POC 180 mg/dL 65 - 110 06/29 NE 2Interpretive GLUCOSE Lifscn Data: [facility] TESTING Upper Reportable Limit: 200 mg/dL. BEDSIDE Gluc POC 248 mg/dL - 110 06/28 NE 3Interpretive GLUCOSE Lifscn Data: [facility] TESTING Upper Reportable Limit: 200 mg/dL. CHEMISTRY AGAP 14.6 meq/L 10.0 - 06/26 Normal 20.0 [facility] CHEMISTRY Calcium Lvl 9.1 mg/dL 8.5 - 10.5 06/26 Normal [facility] CHEMISTRY CO2 27 meq/L 24 - 32 06/26 Normal [facility] CHEMISTRY Chloride Lvl 103 meq/L 95 - 109 06/26 Normal [facility] CHEMISTRY Potassium 4.6 meq/L 3.5 - 5.1 06/26 [facility] Lvl [facility] CHEMISTRY Sodium Lvl 140 meq/L 135 - 145 06/26 Normal [facility] CHEMISTRY Creatinine 2.1 mg/dL 0.5 - 1.4 06/26 [facility] Lvl [facility] CHEMISTRY Glucose Lvl 175 mg/dL 06/26 NA 4Interpretive Data: [facility] Reference Ranges : 0 - 7 days : 41 - 90 mg/dL7 days - 150 yrs : 70 - 99 mg/dL (fasting), based on the clinical recommendatio ns of the [place] [employer]. CHEMISTRY BUN 36 mg/dL 7 - 22 06/26 [facility] HEMATOLOGY Basophils # 0.0 K/CMM 0.0 - 0.2 06/26 Normal [facility] HEMATOLOGY Eosinophils 0.1 K/CMM 0.0 - 0.5 06/26 Normal MH # /2011 [facility] HEMATOLOGY Eosinophils 1.8 % 0.0 - 4.0 06/26 Normal MH /2011 [facility] HEMATOLOGY Lymphocytes 1.0 K/CMM 1.0 - 5.5 06/26 Normal MH # /2011 [facility] HEMATOLOGY Monocytes # 0.3 K/CMM 0.0 - 0.8 06/26 Normal /2011 [facility] HEMATOLOGY Basophils 0.5 % 0.0 - 1.0 06/26 Normal /2011 [facility] HEMATOLOGY Monocytes 7.7 % 2.0 - 12.0 06/26 Normal MH /2011 [facility] HEMATOLOGY Lymphocytes 23.4 % 20.0 - 06/26 Normal MH 40.0 /2011 [facility] HEMATOLOGY Segs-Bands # 2.8 K/CMM 1.5 - 8.1 06/26 Normal /2011 [facility] HEMATOLOGY Segs 66.6 % 45.0 - 06/26 Normal MH 75.0 /2011 [facility] HEMATOLOGY PT 13.7 s 12.0 - 06/26 Normal MH 14.7 [facility] HEMATOLOGY INR 1.05 0.85 - 06/26 Normal 9Interpretive MH 1. Data: [facility] RECOMMENDED RANGES FOR PROTIME INR: 2.0-3.0 for most medical and surgical thromboemboli c states. 2.5-3.5 for artificial heart valves and recurrent embolism.INR SHOULD BE USED ONLY FOR PATIENTS ON STABLE ANTICOAGULANT THERAPY. HEMATOLOGY MPV 10.0 fL 7.4 - 10.4 06/26 Normal /2011 [facility] MCHC 35.5 g/dL 32.0 - 06/26 Normal 36.0 /2011 [facility] HEMATOLOGY RDW 13.4 % 11.5 - 06/26 Normal 14.5 [facility] HEMATOLOGY Platelet 127 K/CMM 133 - 450 06/26 LOW MH /2011 [facility] HEMATOLOGY Hct 32.2 % 42.0 - 06/26 LOW 7Result MH 54.0 Comment: [facility] Reference range changed due to change in patient's gender at 08:43:59. Normal Low changed from not defined to 42.0. Normal High changed from not defined to 54.0. Result flag changed from not applied to L. HEMATOLOGY Hgb 11.4 g/dL 14.0 - 06/26 LOW 6Result MH 18.0 Comment: [facility] Reference range changed due to change in patient's gender at 08:43:59. Normal Low changed from not defined to 14.0. Normal High changed from not defined to 18.0. Result flag changed from not applied to L. HEMATOLOGY MCV 97.1 fL 80.0 - 06/26 HI 8Result 94.0 Comment: [facility] Reference range changed due to change in patient's gender at 08:43:59. Normal Low changed from not defined to 80.0. Normal High changed from not defined to 94.0. Result flag changed from not applied to H. HEMATOLOGY MCH 34.5 pg 27.0 - 06/26 [facility] 31.0 [facility] HEMATOLOGY RBC 3.32 M/CMM 4.70 - 06/26 LOW 5Result 6.10 /2011 Comment: [facility] Reference range changed due to change in patient's gender at 08:43:59. Normal Low changed from not defined to 4.70. Normal High changed from not defined to 6.10. Result flag changed from not applied to L. HEMATOLOGY WBC 4.2 K/CMM 3.7 - 10.4 06/26 Normal [facility] Vital Signs Vital Sign Value Date Comments Source Respitory Rate 19 08/06/2017 [place] Systolic (mm Hg) 131 08/06/2017 [place] Diastolic (mm Hg) 62 08/06/2017 [place] Respitory Rate 18 08/06/2017 [place] Systolic (mm Hg) 131 08/06/2017 [place] Diastolic (mm Hg) 62 08/06/2017 [place] Respitory Rate 19 08/06/2017 [place] Systolic (mm Hg) 121 08/06/2017 [place] Diastolic (mm Hg) 64 08/06/2017 [place] Weight 90.909 08/06/2017 [place] BMI Calculated 28.76 08/06/2017 [place] Height 177.8 cm 08/06/2017 [place] Temperature Oral (F) 97.6 F 08/06/2017 [place] Heart Rate 68 08/06/2017 [place] Respitory Rate 20 05/30/2017 [facility] Heart Rate 58 05/30/2017 [facility] Systolic (mm Hg) 132 05/30/2017 [facility] Diastolic (mm Hg) 68 05/30/2017 [facility] Temperature Oral (F) 98.1 F 05/30/2017 [facility] [...] 11/03/2016 [facility] Diastolic (mm Hg) 64 11/03/2016 [facility] Temperature Oral (F) 97.6 F 11/03/2016 [facility] Heart Rate 66 11/03/2016 [facility] Temperature Oral (F) 98.2 F 11/03/2016 [facility] Heart Rate 68 11/03/2016 [facility] Respitory Rate 18 11/03/2016 [facility] Systolic (mm Hg) 101 11/03/2016 [facility] Diastolic (mm Hg) 50 11/03/2016 [facility] Systolic (mm Hg) 121 11/03/2016 [facility] Diastolic (mm Hg) 56 11/03/2016 [facility] Respitory Rate 18 11/03/2016 [facility] Heart Rate 65 11/03/2016 [facility] Temperature Oral (F) 98.2 F 11/03/2016 [facility] Respitory Rate 18 11/03/2016 [facility] BMI Calculated 28.04 11/03/2016 [facility] Height 172.72 [...] 12/30/2015 [facility] Diastolic (mm Hg) 67 12/30/2015 [facility] Temperature Oral (F) 98.0 F 12/30/2015 [facility] Heart Rate 68 12/30/2015 [facility] Respitory Rate 16 12/30/2015 [facility] Temperature Oral (F) 98.4 F 12/30/2015 [facility] Respitory Rate 16 12/30/2015 [facility] Heart Rate 62 12/30/2015 [facility] Systolic (mm Hg) 137 12/30/2015 [facility] Diastolic (mm Hg) 65 12/30/2015 [facility] Weight 82.273 12/30/2015 [facility] Temperature Oral (F) 98.2 F 12/30/2015 [facility] Heart Rate 64 12/30/2015 [facility] Systolic (mm Hg) 130 12/30/2015 [facility] Diastolic (mm Hg) 64 12/30/2015 [facility] Respitory Rate 16 12/30/2015 [facility] BMI Calculated 28.82 12/28/2015 [facility] Weight 83.455 12/28/2015 [facility] Height 170.18 cm 12/28/2015 [facility] BMI Calculated 29.25 12/28/2015 [facility] Height 170.18 cm 12/28/2015 [facility] Weight 84.716 12/28/2015 [facility] Systolic (mm Hg) 104 05/22/2015 [facility] Diastolic (mm Hg) 52 05/22/2015 [facility] Systolic (mm Hg) 109 05/22/2015 [facility] Diastolic (mm Hg) 52 05/22/2015 [facility] Temperature Oral (F) 98.2 F 05/22/2015 [facility] Systolic (mm Hg) 140 05/22/2015 [facility] Diastolic (mm Hg) 66 05/22/2015 [facility] Temperature Oral (F) 98.2 F 05/21/2015 [facility] Temperature Oral (F) 98.0 F 05/21/2015 [facility] Respitory Rate 20 05/20/2015 [facility] Heart Rate 63 05/20/2015 [facility] Respitory Rate 18 05/20/2015 [facility] Heart Rate 63 05/20/2015 [facility] Heart Rate 73 05/20/2015 [facility] Respitory Rate 18 05/20/2015 [facility] BMI Calculated 29.35 05/17/2015 [facility] Height 170.18 cm 05/17/2015 [facility] Weight 85 05/17/2015 [facility] Systolic (mm Hg) 144 05/17/2015 [facility] Diastolic (mm Hg) 62 05/17/2015 [facility] Respitory [...] 20 06/29/2011 [facility] Heart Rate 76 06/29/2011 [facility] Temperature Oral (F) 96.0 F 06/29/2011 [facility] Diastolic (mm Hg) 81 06/29/2011 [facility] Systolic (mm Hg) 146 06/29/2011 [facility] Respitory Rate 18 06/29/2011 [facility] Systolic (mm Hg) 113 06/29/2011 [facility] Diastolic (mm Hg) 72 06/29/2011 [facility] Temperature Oral (F) 96.7 F 06/29/2011 [facility] Heart Rate 78 06/29/2011 [facility] Diastolic (mm Hg) 70 06/29/2011 [facility] Heart Rate 90 06/29/2011 [facility] Temperature Oral (F) 98.0 F 06/29/2011 [facility] Respitory Rate 20 06/29/2011 [facility] Systolic (mm Hg) 137 06/29/2011 [facility] Weight 94.545 06/26/2011 [facility] Height 170.18 cm 06/26/2011 [facility] Encounters Location Location Encounter Encounter Reason Attending ADM DC Status Source Details Type Number For Provider Date Date Visit Not Sent YOANDY [id number] [facility] 06/28 06/29 Active 0 [facility] 428.22 ANGINA 413.9. [facility] Outpt Diag [id number] [place] 11/13 11/14 [facility] Outpatient Services 0 [facility] Cardiovasc STRESS TEST [id number] 12/17 12/17 Cardiova ular 17-481b-88e /2013 [facility] 18d Cardiovasc STRESS TEST [id number] 12/17 12/17 [facility] bf-464d-983 /2013 [id number] [facility] bb9 Cardiovasc STRESS TEST 677s2e01-n5 12/17 12/17 [facility] c9-69z2-7vr /2013 [id number] [facility] c2a Cardiovasc STRESS TEST 2o8dv4d7-w0 12/17 12/17 [facility] 1e-441c-b90 /2013 [facility][id number] [facility] c19 Cardiovasc STRESS TEST [id number] 12/17 12/17 [facility] dd-49fb-a4e /2013 [id number] [facility] 790 Cardiovasc STRESS TEST 96b0kiyn-5a 12/17 12/17 [facility] 57-76i0-dv9 /2013 [facility] c[facility][id number] [facility] eaf Cardiovasc STRESS TEST 8i5us9c4-5h 12/17 12/17 [facility] a2-6wf1-h26 /2013 [facility]-36485l555 [facility] 8e8 Cardiovasc STRESS TEST [id number] 12/17 12/17 [facility] 33-4f35-sed /2013 [facility]-0h63qre56 [facility] 8f0 Cardiovasc STRESS TEST fn4b080q-m8 12/17 12/17 [facility] f5-40ef-8e3 /2013 [facility] 2-1v8u4x6c6 [facility] 188 Cardiovasc STRESS TEST n25v1xpz-ju 12/17 12/17 [facility] ular c8-85l7-431 /2013 [facility]vv[facility]y7mr [facility] a47 Cardiovasc Established 9l2945e6-3g 12/17 12/17 [facility] Patient c6-4247-8ae /2013 [facility]tdy[facility]lz [facility] 523 Cardiovasc Established a829a5m9-79 12/17 12/17 [facility] Patient 3b-2px9-a80 /2013 [facility]80k909x03 [facility] 6c1 Cardiovasc Established [id number] 12/17 12/17 [facility] Patient 4a-8nt4-v2t /2013 [facility] c-5284vni53 [facility] c3c Cardiovasc Established [id number] 12/17 12/17 [facility] Patient f1-4817-bfa /2013 [facility]8n7u99sq9 [facility] 31e Cardiovasc Established [id number] 12/17 12/17 [facility] Patient 2b-6u03-737 /2013 [facility]-6061ahn52 [facility] dc5 Cardiovasc Established 9v2sn218-14 12/17 12/17 [facility] Patient 63-19i1-038 /2013 [facility]4lpi809x [facility] 99c Cardiovasc Established pd09v394-q0 12/17 12/17 [facility] Patient 89-4867-853 /2013 [facility] c-47255405b [facility] acf Cardiovasc Established 036i4h71-d0 12/17 12/17 Cardiova ular Patient 0a-44fd-b7f [facility] a-[id number] [facility] 2ca Cardiovasc Established 5540060t-4w 12/17 12/17 [facility] Patient 20-4590-8a6 [facility] 5-1327qd3tg [facility] 4e4 Cardiovasc Established 36hru2o5-ly 12/17 12/17 [facility] Patient f0-4996-bbc /2013 [facility]w5l76u55e [facility] e92 Cardiovasc Established 9251c23t-qo 03/19 03/19 [facility] Patient c9-49fa-9af [facility] [id number] [facility] 99e Cardiovasc Established b36y39w4-71 03/19 03/19 [facility] Patient b5-4i7a-381 /2013 [id number] [facility] e95 Cardiovasc Established 99k5b208-5a 03/19 03/19 [facility] Patient e1-65p9-h1b /2013 [facility]18[facility]19j4vn [facility] 096 Cardiovasc Established 35s9088u-g5 03/19 03/19 Cardiova ular Patient ea-425a-99b /2013 [facility] e[facility]9aq8obgf3 [facility] 365 Cardiovasc Established 9rytx831-96 03/19 03/19 Cardi[facility] ular Patient 84-4h97-485 /2013 [facility]-7o9a0wj5m [facility] 0e7 Cardiovasc Established 3l8i85yn-88 03/19 03/19 [facility] ular Patient b8-4644-860 /2013 [facility] e-[id number] [facility] 1d9 Cardiovasc Established 0z25l75r-8f 03/19 03/19 [facility] ular Patient 3e-0m08-92p /2013 [facility]5873bfecc [facility] 94f Cardiovasc Established sq49q659-p3 03/19 03/19 [facility] ular Patient 2a-4897-a60 [facility] e-2499p306d [facility] a8b Cardiovasc Established 86a5t5b3-ie 03/19 03/19 [facility] ular Patient 80-2hx2-u4a /2013 [facility][id number] [facility] c27 Cardiovasc Established dm2254u2-0p 03/19 03/19 [facility] ular Patient a6-46cc-8a [facility] c-cvlr4n9ir [facility] 33a Cardiovasc Established 9n3nn01c-l6 06/25 06/25 Cardiova ular Patient 2b-495e-9b9 /2014 [facility]27v73vdpw [facility] a45 Cardiovasc Established [id number] 06/25 06/25 Cardiova ular Patient 27-8l11-48g /2014 [id number] [facility] [place] Cardiovasc Established m9wk4wo5-s0 06/25 06/25 Cardiova ular Patient 3f-2h90-63w /2014 [facility] 4-9ux3e1g25 [facility] e6e Cardiovasc Established u2r00bc6-gb 06/25 06/25 Cardiova ular Patient 38-5u0y-d4n /2014 [facility]-2ym0a4s3j [facility] 92b Cardiovasc Established w546n03o-hx 06/25 06/25 [facility] ular Patient 27-3v3q-413 /2014 [facility]-[id number] [facility] 1fb Cardiovasc Established 550fwb09-05 06/25 06/25 Cardiova ular Patient 87-6x50-n14 /2014 [facility]d6271l91q [facility] bf1 Cardiovasc Established [id number] 06/25 06/25 Cardiova ular Patient b4-4161-977 /2014 [id number] [facility] 5fc Cardiovasc [place] 355yp571-d2 08/06 08/06 Cardi[facility] ular refill 81-69t2-s35 /2014 [facility][id number] [facility] a59 Cardiovasc [place] e2p3821n-67 08/06 08/06 Cardiova ular refill f7-4965-882 /2014 [facility] f[facility]u393t0eyv [facility] 2ae Cardiovasc [place] 2946yrf9-9p 08/06 08/06 Cardiova ular refill 09-400c-874 /2014 [facility] 2-150xhq2g4 [facility] 751 Cardiovasc [place] cf23y8k5-6p 08/06 08/06 Cardi[facility] ular refill 28-3q4t-9tt /2014 [facility] d-5pro3ux53 [facility] 3d8 Cardiovasc [place] [id number] 08/06 08/06 Cardiova ular refill f7-36x5-115 /2014 [facility] f-8c157w317 [facility] 2ee Cardiovasc [place] g59f0c57-4r 08/06 08/06 Cardiova ular refill 97-463c-8f0 /2014 [facility] a-[id number] [facility] 472 Cardiovasc Unknown [id number] 08/18 08/18 Cardiova ular b0-2ld6-2pb /2014 [facility]u723j4ta [facility] d59 Cardiovasc Unknown [id number] 08/18 08/18 Cardiova ular 87-4089-b16 /2014 [facility] 9-[id number] [facility] a62 Cardiovasc Unknown [id number] 08/18 08/18 Cardiova ular 53-4bcf-b56 /2014 [facility] b[facility]4bh8743sf [facility] 242 Cardiovasc Unknown [id number]-xi 08/18 08/18 Cardiova ular 60-42ba-9e5 /2014 [facility] b-26r6qx5c7 [facility] a07 Cardiovasc Unknown [id number] 08/18 08/18 Cardiova ular c3-4109-a23 /2014 [facility] e-77260mcr2 [facility] 85e Cardiovasc Unknown [id number] 08/18 08/18 Cardiova ular 1c-9x53-z0m /2014 [facility] f-tkaek10w9 [facility] [place] Cardiovasc chest pain. 6622x792-4i 10/07 10/07 Cardiova ular 10/06 7e-4aee-8d3 /2014 [facility] 7-0c8u3r967 [facility] 12d Cardiovasc chest pain. 4k5wwz21-d0 10/07 10/07 Cardiova ular 10/06 9c-36k0-20i /2014 [facility] d-71789yp36 [facility] 40e Cardiovasc chest pain. wtj00cie-1r 10/07 10/07 Cardiova ular 10/06 0b-4419-829 /2014 [facility] a-i1v2k8btt [facility] cc8 Cardiovasc chest pain. 878rphl5-4p 10/07 10/07 Cardiova ular 10/06 a2-04r3-u4g /2014 [facility] 4-[id number] [facility] e95 Cardiovasc chest pain. s9y7q3v5-61 10/07 10/07 Cardiova ular 10/06 33-4083-959 /2014 [facility] a-c3j3hb8cu [facility] d6e Cardiovasc chest pain. u559nv0f-86 10/07 10/07 Cardiova ular 10/06 77-9a6e-88a /2014 [facility]16m4oa [facility] 512 Cardiovasc Established 4r6m2c4k-j2 01/18 01/18 Cardiova ular Patient 41-17t8-h72 /2014 [facility] b-[id number] [facility] e4e Cardiovasc Established 024643a5-05 01/18 01/18 Cardiova ular Patient 88-4305-97e /2014 [facility] a[facility]qzyv55mdx [facility] 57a Cardiovasc Established [id number] 01/18 01/18 Cardiova ular Patient c3-8oz7-f2p /2014 [id number] [facility] 09c Cardiovasc Established [id number] 01/18 01/18 Cardiova ular Patient c0-4dde-bcf /2014 [facility] a-5z6p5m823 [facility] ea8 Cardiovasc Established [id number] 01/18 01/18 Cardiova ular Patient 6c-470f-80b /2014 [facility]-5qt38ll31 [facility] b26 Cardiovasc Established [id number]-f4 01/18 01/18 Cardiova ular Patient b6-41ae-98a /2014 [facility] 3-37f6zqe56 [facility] 338 Cardiovasc possible [id number] 05/11 05/11 Cardiova ular heart b7-8gd8-y48 /2014 [facility] attack [id number] [facility] 24b Cardiovasc possible 5165ou6p-86 05/11 05/11 Cardiova ular heart fb-4182-830 /2014 [facility] attack 3-70f538i37 [facility] 4a0 Cardiovasc possible [id number] 05/11 05/11 Cardiova ular heart 37-4717-94b /2014 [facility] attack 0-8tl38r568 [facility] 39d Cardiovasc possible r71l783q-dc 05/11 05/11 Cardiova ular heart 33-42af-a79 /2014 [facility] attack c-846rg0r1t [facility] ad0 Cardiovasc possible [id number]-h8 05/11 05/11 Cardiova ular heart 87-4156-9e6 /2014 [facility] attack 8-7020wn991 [facility] 6cc Cardiovasc possible [id number]-ab 05/11 05/11 Cardiova ular heart fb-479c-ac9 [facility] attack e-[id number] [facility] af7 Cardiovasc Established 24cwo5cp-35 05/12 05/12 Cardiova ular Patient a5-1ha2-50w /2014 [facility] 6-2ytzm05d6 [facility] 5a7 Cardiovasc Established g3478na8-2t 05/12 05/12 Cardiova ular Patient 18-4fda-9fe [facility] [id number] [facility] 97a Cardiovasc Established m06b2548-x0 05/12 05/12 Cardiova ular Patient a3-451e-8cd /2014 [facility] 3-975o808qi [facility] 0da Cardiovasc Established chb38q3s-6d 05/12 05/12 Cardiova ular Patient d2-6d35-m6v /2014 [facility] 8-0cgut620r [facility] 3a7 Cardiovasc Established [id number]-p2 05/12 05/12 Cardiova ular Patient a0-4ebb-9b [facility] d-[id number] [facility] a0a Cardiovasc Established 9c601c3v-ra 05/12 05/12 Cardiova ular Patient 1f-6e5q-ml5 [facility] [id number] [facility] 1ea [facility] Inpatient [id number] [place] 05/12 05/17 Har[place] 1 [facility] Inpatient [id number] [facility] 05/17 05/22 [facility] 1 [place] /2014 [facility] Cardiovasc Pt in 7w54bx7w-47 05/18 05/18 Cardiova ular [facility] 8e-432a-864 [facility] 05/18 d-[id number] [facility] d79 Cardiovasc Pt in [id number]-io 05/18 05/18 Cardiova ular [facility] 9f-9tc5-34h /2014 [facility] 05/18 2-8r7734t2w [facility] e58 Cardiovasc Pt in [id number] 05/18 05/18 Cardiova ular [facility] b3-0i64-7x8 /2014 [facility] 05/18 1-980s8750d [facility] 87e Cardiovasc Pt in 27h73q21-35 05/18 05/18 Cardiova ular [facility] d0-4770-ac3 /2014 [facility] 05/18 c-g5b7w0yln [facility] e6c Cardiovasc [place] th252py0-qm 10/18 10/18 Cardiova ular [facility] fe-0ye2-7av /2015 [facility] 3-w3q5ip9f1 [facility] 6b3 Cardiovasc [place] hq08b9b7-5n 10/18 10/18 Cardiova ular [facility] 28-2cd7-63g /2015 [facility] [id number] [facility] 9b9 Cardiovasc [place] 63s407f4-01 10/18 10/18 Cardiova ular [facility] f9-3x64-q8j /2015 [facility] a-e3825ynu9 [facility] b98 Cardiovasc chest pain [id number]-57 12/27 12/27 Cardiova ular 2a-2d7u-l44 /2015 [facility] c-4q84i43oa [facility] 5ea Cardiovasc chest pain 273n3b8e-86 12/27 12/27 Cardiova ular c9-5i83-674 /2015 [facility] 4-8o2m6x3c1 [facility] [id number] [place] 12/27 12/29 Harley 2 [place] /2015 [facility] Cardiovasc Established 7974mb14-1u 04/10 04/10 Cardiova ular Patient 5d-4bbd-87d /2015 [facility] e-7964x57u0 [facility] bbf [facility] [id number] Janeth 11/02 11/03 [place] 7 [place] /2016 [facility] [id number] Shahzad 05/30 05/30 Har[place] 3 [place] /2016 [facility] Emergency [id number] Vanda 08/06 08/06 [facility] 4 Romero [facility] Procedures Procedure Code Date Perfomer Comments Source CABG x 2 - [id number] [facility] Coronary artery [facility] bypass grafts x 2 Excision of [id number] [facility] CABG x 2 - [id number] [facility] Coronary artery bypass grafts x 2 Excision of [id number] [facility] gallbladder Angioplasty [id number] [facility] Angioplasty [id number] [facility] CABG x 2 - [id number] The Coronary artery [place] bypass grafts x 2 Excision of [id number] [facility]
--- OUTSIDE RECORDS SUMMARY | 2017-12-30 21:34 | XMS REPORT ---
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
--- OUTSIDE RECORDS SUMMARY | 2017-12-30 21:34 | XMS REPORT ---
:1935 Author Organization eClinicalWorks Care Team Providers Name Role Phone PHYLLIS WHITTINGTON Provider Role Unavailable Allergies, Adverse Reactions, Alerts Substance Reaction Event Type N.K.D.A. 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 Assessment 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 Problem Presence of automatic (implantable) Z95.810 Active cardiac defibrillator Medications Medication Code Code Instructions Start End Status Dosage System Date Date nitroglycerin [facility] 39890516146 0.4 mg Active 1 tab(s) sublingually every 5 minutes baclofen [facility] 41604912950 10 mg orally Active 1 tab(s) bid tamsulosin [facility] 42661905959 0.4 mg orally Active 1 cap(s) once a day ASA [facility] 89329489201 81mg once a Active 1 tab(s) day losartan [facility] 13726499159 50 mg orally Active 1 tab(s) once a day spironolactone [facility] 66946930922 25 mg orally Active 1 tab(s) bid Prilosec [facility] 32565892344 20 mg orally Active 1 cap(s) once a day glimepiride [facility] 47619751687 1 mg orally bid Active 1 tab(s) clopidogrel [facility] 37660240184 75 mg orally Active 1 tab(s) once a day furosemide ND 20050463535 40 mg orally Active 1 tab(s) once a day carvedilol [facility] 56574840715 6.25 orally 2 Active 1 tab(s) times a day Glumetza [facility] 70027630725 500 mg orally Active 1 tab(s) bid isosorbide [facility] 04114740443 30 mg orally Active 1 tab(s) dinitrate every 8 hrs Synthroid [facility] 25268330703 200 mcg (0.2 Active 1 tab(s) mg) orally once a day hydralazine [facility] 43646210210 25 mg orally 4 Active 1 tab(s) times a day Ranexa [facility] 45101113164 1000 mg orally Active 1 tab(s) 2 times a day omeprazole [facility] 58237791985 20 mg orally Active 1 cap(s) once a day Vital Signs Date/Time: September 03, 2016 Blood Pressure Systolic 136 mm Hg BMI 29.53 Index Height 66 in Blood Pressure Diastolic 60 mm Hg Results No Known Results Summary Purpose eClinicalWorks Submission
--- OUTSIDE RECORDS SUMMARY | 2017-12-30 21:34 | XMS REPORT ---
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
--- OUTSIDE RECORDS SUMMARY | 2017-12-30 21:34 | XMS REPORT ---
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
--- OUTSIDE RECORDS SUMMARY | 2017-12-30 21:34 | XMS REPORT ---
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
--- OUTSIDE RECORDS SUMMARY | 2017-12-30 21:34 | XMS REPORT ---
:1935 Author Organization eClinicalWorks Care Team Providers Name Role Phone PHYLLIS WHITTINGTON Provider Role Unavailable Allergies, Adverse Reactions, Alerts Substance Reaction Event Type N.K.D.A. 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 Problem Presence of automatic (implantable) Z95.810 Active cardiac defibrillator Problem Presence of coronary angioplasty Z95.5 Active implant and graft Problem Hyperlipidemia, unspecified E78.5 Active Problem Hypothyroidism, unspecified E03.9 Active Problem 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 Problem 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 Assessment 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 Assessment Hyperlipidemia, unspecified E78.5 Active Assessment 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 Medications Medication Code System Code Instructions Start Date End Date Status Dosage spironolactone NDC 58102 25 mg orally bid Active 1 tab(s) Glumetza NDC 24746 500 mg orally bid Active 1 tab(s) clopidogrel NDC 64362 75 mg orally once Active 1 tab(s) a day Synthroid NDC 2205 200 mcg (0.2 mg) Active 1 tab(s) orally once a day carvedilol NDC 71759 3.125 mg orally 2 Active 2 tab(s) times a day glimepiride NDC 86838 1 mg orally bid Active 1 tab(s) atorvastatin NDC 64922 10 mg orally once Active 1 tab(s) a day (at bedtime) tamsulosin NDC 28740 0.4 mg orally Active 1 cap(s) once a day furosemide NDC 08138 40 mg orally once Active 1 tab(s) a day ASA NDC 0 81mg once a day Active 1 tab(s) Prilosec NDC 363 20 mg orally once Active 1 cap(s) a day Ranexa NDC 32229 1000 mg orally 2 Active 1 tab(s) times a day nitroglycerin NDC 43226 0.4 mg Active 1 tab(s) sublingually every 5 minutes losartan NDC 87007 50 mg orally once Active 1 tab(s) a day Vital Signs Date/Time: Jun 19, 2016 Blood Pressure Systolic 110 mm Hg BMI 30.66 Index Height 66 in Blood Pressure Diastolic 50 mm Hg Results No Known Results Summary Purpose eClinicalWorks Submission
--- OUTSIDE RECORDS SUMMARY | 2017-12-30 21:34 | XMS REPORT | CCD ---
:1935 Author Organization [facility] Care Team Providers Name Role Phone Jessica [...] PO, Drug 06/28/2011 06/29/2011 Discontinued Form: TAB, [id number], Start date: 06/28/11 6:00:00, Duration: 4 doses [...] based on the clinical recommendations of the [place] [employer].HEMATOLOGY Most recent to oldest [Reference [...]
--- OUTSIDE RECORDS SUMMARY | 2017-12-30 21:35 | XMS REPORT ---
:1935 Author Organization eClinicalWorks Care Team Providers Name Role Phone WHITTINGTONCYNY Provider Role Unavailable Allergies, Adverse Reactions, Alerts Substance Reaction Event Type N.K.D.A. Info Not Available Non Drug Allergy Encounters Encounter Location Date Established Patient [facility], [facility] December 17, 2013 STRESS TEST [facility], [facility] December 17, 2013 Established Patient [facility], 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 Problem Hypercholesterolemia NOS 272.4 Active Problem Hypothyroidism (acquired) 244.9 Active Assessment S/P Automatic Defibrillator V45.02 Active Assessment Chronic systolic heart failure 428.22 Active Assessment 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 Medications Medication Code System Code Instructions Start End Date Status Dosage Date Humalog MULTUM 6127 100 units/mL Active 12 units subcutaneously before meals spironolactone MULTUM 92204 25 mg orally 3 Active 1 tab(s) times a day Lantus MULTUM 49784 100 units/mL Active 34 units at subcutaneously bedtime omeprazole MULTUM 02017 20 mg orally once Active 1 tab(s) a day levothyroxine MULTUM 65818 112 mcg orally Active 2 caps once a day Crestor MULTUM 59006 10 mg orally once Jan 27, Active 1 tab(s) a day (at bedtime) 2012 Lyrica MULTUM 85443 50 mg orally 2 Active 1 cap(s) times a day ASA Unknown 0 81mg once a day Active 1 tab(s) furosemide MULTUM 76713 20 mg orally tid Active 3 tsa tamsulosin MULTUM 23845 0.4 mg orally bid Active 1 cap(s) nitroglycerin MULTUM 53864 0.4 mg November 26 1 tab(s) sublingually every 2013 5 minutes losartan MULTUM 35664 50 mg orally once Active 1 tab(s) a day Ran[place] MULTUM 19374 1000 mg orally 2 Active 1 tab(s) times a day gemfibrozil MULTUM 37712 600 mg orally 2 Active 1 tab(s) [...]
--- OUTSIDE RECORDS SUMMARY | 2017-12-30 21:35 | XMS REPORT ---
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
--- OUTSIDE RECORDS SUMMARY | 2017-12-30 21:35 | XMS REPORT ---
:1935 Author Organization eClinicalWorks Care Team Providers Name Role Phone CYN WHITTINGTONY Provider Role Unavailable Encounters Encounter Location Date Established Patient [facility], [facility] Jun 25, 2014 [place] refill [facility], [facility] Aug 06, 2014 Unknown [facility], [facility] August 18, 2014 chest pain. 10/06 [facility], [facility] October 07, 2014 Established Patient [facility], [facility] December 17, 2013 Pt in [facility] 05/18 [facility], [facility] May 18, 2015 STRESS TEST [facility], [facility] December 17, 2013 Established Patient [facility], [facility] Mar 19, 2014 Established Patient [facility], [facility] May 12, 2015 Established Patient [facility], [facility] Jan 18, 2015 possible heart attack [facility], [facility] May 11, 2015 Problems Problem Type Condition ICD-9 Code Onset Dates Condition Status Problem 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
--- OUTSIDE RECORDS SUMMARY | 2017-12-30 21:35 | XMS REPORT ---
:1935 Author Organization eClinicalWorks Care Team Providers Name Role Phone PHYLLIS WHITTINGTON Provider Role Unavailable Allergies, Adverse Reactions, Alerts Substance Reaction Event Type N.K.D.A. 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 Assessment 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 Problem Presence of automatic (implantable) Z95.810 Active cardiac defibrillator Medications Medication Code Code Instructions Start End Status Dosage System Date Date losartan [facility] 43020920858 50 mg orally Active 1 tab(s) once a day clopidogrel [facility] 97333929001 75 mg orally Active 1 tab(s) once a day nitroglycerin [facility] 03760084782 0.4 mg Active 1 tab(s) sublingually every 5 minutes baclofen [facility] 39331099137 10 mg orally Active 1 tab(s) bid glimepiride [facility] 83538913820 1 mg orally Active 1 tab(s) once aday spironolactone [facility] 79809450973 25 mg orally Active 1 tab(s) bid furosemide [facility] 10667751543 40 mg orally Active 1 tab(s) once a day Glumetza [facility] 75235970828 500 mg orally Active 1 tab(s) bid carvedilol [facility] 31106983690 6.25 orally 2 Active 1 tab(s) times a day Ranexa [facility] 89005417834 1000 mg orally Active 1 tab(s) 2 times a day omeprazole [facility] 64789300150 20 mg orally Active 1 cap(s) once a day Prilosec [facility] 62195550115 20 mg orally Active 1 cap(s) once a day Synthroid [facility] 38472386766 200 mcg (0.2 Active 1 tab(s) mg) orally once a day hydralazine [facility] 40590799704 25 mg orally 4 Active 1 tab(s) times a day Lasix [facility] 03962034247 40 mg orally Ricarda Active 1 tab(s) once a day 2016 ASA [facility] 25572407016 81mg once a Active 1 tab(s) day tamsulosin [facility] 59844439650 0.4 mg orally Active 1 cap(s) once a day isosorbide [facility] 29642765308 30 mg orally Active 1 tab(s) dinitrate every 8 hrs Vital Signs Date/Time: September 25, 2016 Blood Pressure Systolic 122 mm Hg BMI 30.02 Index Height 66 in Blood Pressure Diastolic 50 mm Hg Results No Known Results Summary Purpose eClinicalWorks Submission
--- OUTSIDE RECORDS SUMMARY | 2017-12-30 21:35 | XMS REPORT ---
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
--- OUTSIDE RECORDS SUMMARY | 2017-12-30 21:35 | XMS REPORT ---
:1935 Author Organization eClinicalWorks Care Team Providers Name Role Hugh WHITTINGTONPHYLLIS Provider Role Unavailable Allergies, Adverse Reactions, Alerts Substance Reaction Event Type N.K.D.A. Info Not Available Non Drug Allergy Encounters Encounter Location Date Established Patient [facility], [facility] Jun 25, 2014 [place] refill [facility], [facility] Aug 06, 2014 Unknown [facility], [facility] August 18, 2014 chest pain. 10/06 [facility], [facility] October 07, 2014 Established Patient [facility], [facility] December 17, 2013 STRESS TEST [facility], [facility] December 17, 2013 Established Patient [facility], [facility] Mar 19, 2014 Established Patient [facility], [facility] May 12, 2015 Established Patient [facility], [facility] Jan 18, 2015 possible heart attack [facility], [facility] May 11, 2015 chest pain [facility], [facility] December 28, 2015 Established Patient [facility], [facility] Apr 10, 2016 Pt in [facility] 05/18 [facility], [facility] May 18, 2015 [place] Change[facility], [facility] October 19, 2015 Problems Problem Type Condition [...] Date End Date Status Dosage carvedilol MULTUM 97639 3.125 orally 2 Active 2 tab(s) times a day tamsulosin MULTUM 02529 0.4 mg orally Active 1 cap(s) once a day nitroglycerin MULTUM 10754 0.4 mg Active 1 tab(s) sublingually every 5 minutes losartan MULTUM 94887 50 mg orally once Active 1 tab(s) a day Glumetza MULTUM 69923 500 mg orally 2 Active 1 tab(s) times a day ASA Unknown 0 81mg once a day Active 1 tab(s) clopidogrel MULTUM 08700 75 mg orally once Active 1 tab(s) a day Prilosec MULTUM 363 20 mg orally once Active 1 cap(s) a day Synthroid MULTUM 2205 200 mcg (0.2 mg) Active 1 tab(s) orally once a day spironolactone MULTUM 38696 25 mg orally 3 Active 1 tab(s) times a day furosemide MULTUM 15918 40 mg orally once Active 1 tab(s) a day atorvastatin MULTUM 79796 10 mg orally once Active 1 tab(s) a day (at bedtime) glimepiride MULTUM 52386 1 mg orally bid Active 1 tab(s) [place] MULTUM 62998 1000 mg orally 2 Active 1 tab(s) [...]
--- OUTSIDE RECORDS SUMMARY | 2017-12-30 21:35 | XMS REPORT ---
:1935 Author Organization eClinicalWorks Care Team Providers Name Role Phone PHYLLIS WHITTINGTON Provider Role Unavailable Encounters Encounter Location Date Established Patient [facility], [facility] December 17, 2013 STRESS TEST [facility], [facility] December 17, 2013 Established Patient [facility], [facility] Mar 19, 2014 Problems Problem Type Condition ICD-9 Code Onset Dates Condition Status Assessment 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 Active [place] vessel Problem Diabetes mellitus type II 250.00 Active Problem Hypertension Heart Disease - w/o 402.10 Active CHF* Problem 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 Problem Chronic systolic heart failure 428.22 Active Problem S/P Automatic Defibrillator V45.02 Active Problem 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 Active [place] vessel Problem 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 Problem Hypercholesterolemia NOS 272.4 Active Problem Hypothyroidism (acquired) 244.9 Active Medications Medication Code System Code Instructions Start End Date Status Dosage Date Humalog MULTUM 6127 100 units/mL Active 12 units subcutaneously before meals levothyroxine MULTUM 14774 200 mcg orally Active 1 cap(s) once a day [place] MULTUM 76927 1000 mg orally 2 Active 1 tab(s) times a day nitroglycerin MULTUM 44024 0.4 mg/hr Active 1 PATCH transdermally prn nitroglycerin MULTUM 13966 0.4 mg November 26, Active 1 tab(s) sublingually every 2013 5 minutes losartan MULTUM 73346 50 mg orally once Active 1 tab(s) a day omeprazole MULTUM 44414 20 mg orally once Active 1 tab(s) a day Crestor MULTUM 04293 10 mg orally once Jan 27, Active 1 tab(s) a day (at bedtime) 2012 ASA Unknown 0 81mg once a day Active 1 tab(s) tamsulosin MULTUM 52398 0.4 mg orally once Active 1 cap(s) a day Coreg MULTUM 57124 12.5 mg orally 2 Active 1/2 tab times a day spironolactone MULTUM 31706 25 mg orally 3 Active 1 tab(s) times a day Lantus MULTUM 86760 100 units/mL Active 34 units at subcutaneously bedtime gemfibrozil MULTUM 22085 600 mg orally 2 Active 1 tab(s) times a day furosemide MULTUM 66631 20 mg orally once Active 2 tabs a day Social History Social History Element Qualifiers Date Reported Caffeine: yes. 2 cups of coffee a day Mar 19, 2014 Tobacco Use: . Status: Former Smoker quit 22 yrs ago Mar 19, 2014 Alcohol: no. Mar 19, 2014 Summary Purpose eClinicalWorks Submission
--- OUTSIDE RECORDS SUMMARY | 2017-12-30 21:35 | XMS REPORT ---
:1935 Author Organization eClinicalWorks Care Team Providers Name Role Phone CYN WHITTINGTONY Provider Role Unavailable Allergies, Adverse Reactions, Alerts Substance Reaction Event Type N.K.D.A. Info Not Available Non Drug Allergy Encounters Encounter Location Date Established Patient [facility], [facility] December 17, 2013 STRESS TEST [facility], [facility] December 17, 2013 Established Patient [facility], [facility] Mar 19, 2014 Problems Problem Type Condition ICD-9 Code Onset Dates Condition Status Assessment 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 Active [place] vessel Problem Diabetes mellitus type II 250.00 Active Problem Hypertension Heart Disease - w/o 402.10 Active CHF* Problem 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 Problem Chronic systolic heart failure 428.22 Active Problem S/P Automatic Defibrillator V45.02 Active Problem 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 Active [place] vessel Problem 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 Problem Hypercholesterolemia NOS 272.4 Active Problem Hypothyroidism (acquired) 244.9 Active Assessment Hypertension Heart Disease - w/o 402.10 Active CHF* Assessment S/P Automatic Defibrillator V45.02 Active Assessment Chronic systolic heart failure 428.22 Active Assessment 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 Medications Medication Code System Code Instructions Start End Date Status Dosage Date levothyroxine MULTUM 04241 200 mcg orally Active 1 cap(s) once a day nitroglycerin MULTUM 86395 0.4 mg November 26, Active 1 tab(s) sublingually every 2013 5 minutes gemfibrozil MULTUM 94694 600 mg orally 2 Active 1 tab(s) times a day omeprazole MULTUM 33025 20 mg orally once Active 1 tab(s) a day losartan MULTUM 25140 50 mg orally once Active 1 tab(s) a day Crestor MULTUM 86524 10 mg orally once Jan 27, Active 1 tab(s) a day (at bedtime) 2012 spironolactone MULTUM 06777 25 mg orally 3 Active 1 tab(s) times a day tamsulosin MULTUM 04459 0.4 mg orally bid Active 1 cap(s) ASA Unknown 0 81mg once a day Active 1 tab(s) Lantus MULTUM 90688 100 units/mL Active 34 units at subcutaneously bedtime furosemide MULTUM 15694 20 mg orally once Active 3 tsa a day [place] MULTUM 49467 1000 mg orally 2 Active 1 tab(s) [...]
--- OUTSIDE RECORDS SUMMARY | 2017-12-30 21:35 | XMS REPORT ---
:1935 Author Organization eClinicalWorks Care Team Providers Name Role Phone [place] PHYLLIS Provider Role Unavailable Allergies, Adverse Reactions, Alerts Substance Reaction Event Type N.K.D.A. Info Not Available Non Drug Allergy Encounters Encounter Location Date Established Patient [facility], [facility] Jun 25, 2014 Established Patient [facility], [facility] December 17, 2013 STRESS TEST [facility], [facility] December 17, 2013 Established Patient [facility], [facility] Mar 19, 2014 Problems Problem Type Condition ICD-9 Code Onset Dates Condition Status Assessment 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 Active [place] vessel Problem Diabetes mellitus type II 250.00 Active Problem Hypertension Heart Disease - w/o 402.10 Active CHF* Problem 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 Problem Chronic systolic heart failure 428.22 Active Problem S/P Automatic Defibrillator V45.02 Active Problem 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 Active [place] vessel Problem 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 Problem Hypercholesterolemia NOS 272.4 Active Problem Hypothyroidism (acquired) 244.9 Active Assessment S/P Automatic Defibrillator V45.02 Active Assessment Chronic systolic heart failure 428.22 Active Assessment 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 Medications Medication Code System Code Instructions Start End Date Status Dosage Date losartan MULTUM 50227 50 mg orally once Active 1 tab(s) a day nitroglycerin MULTUM 74763 0.4 mg November 26, Active 1 tab(s) sublingually every 2013 5 minutes Lantus MULTUM 92039 100 units/mL Active 34 units at subcutaneously bedtime Crestor MULTUM 31503 10 mg orally once Jan 27, Active 1 tab(s) a day (at bedtime) 2012 levothyroxine MULTUM 15294 112 mcg orally Active 2 caps once a day spironolactone MULTUM 98446 25 mg orally 3 Active 1 tab(s) times a day carvedilol MULTUM 28130 12.5 mg orally 2 Active 1 tab(s) times a day tamsulosin MULTUM 95567 0.4 mg orally bid Active 1 cap(s) gemfibrozil MULTUM 97181 600 mg orally 2 Active 1 tab(s) times a day ASA Unknown 0 81mg once a day Active 1 tab(s) omeprazole MULTUM 70938 20 mg orally once Active 1 tab(s) a day furosemide MULTUM 10147 40 mg orally once Jun 26, Active 1 tab(s) a day 2014 Ranexa MULTUM 09998 1000 mg orally 2 Active 1 tab(s) [...]
--- OUTSIDE RECORDS SUMMARY | 2017-12-30 21:35 | XMS REPORT ---
:1935 Author Organization eClinicalWorks Care Team Providers Name Role Phone YONAS AGUIRRE Provider Role Unavailable Allergies, Adverse Reactions, Alerts Substance Reaction Event Type N.K.D.A. Info Not Available Non Drug Allergy Encounters Encounter Location Date Established Patient [facility], [facility] Jun 25, 2014 ranexa refill [facility], [facility] Aug 06, 2014 Unknown [facility], [facility] August 18, 2014 chest pain. 10/06 [facility], [facility] October 07, 2014 Established Patient [facility], [facility] December 17, 2013 STRESS TEST [facility], [facility] December 17, 2013 Established Patient [facility], [facility] Mar 19, 2014 Established Patient [facility], [facility] May 12, 2015 Established Patient [facility], [facility] Jan 18, 2015 possible heart attack [facility], [facility] May 11, 2015 Problems Problem Type Condition ICD-9 Code Onset Dates Condition Status Assessment Presence 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 Assessment 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 Assessment Hyperlipidemia, unspecified E78.5 Active Assessment 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 Problem 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 Problem 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 Problem Presence 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 Problem Hypothyroidism, unspecified E03.9 Active Assessment 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 Problem 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 Problem Hyperlipidemia, unspecified E78.5 Active Medications Medication Code System Code Instructions Start End Date Status Dosage Date nitroglycerin MULTUM 31626 0.4 mg November 26, Active 1 tab(s) sublingually every 2013 5 minutes omeprazole MULTUM 39881 20 mg orally once Active 1 tab(s) a day tamsulosin MULTUM 80159 0.4 mg orally bid Active 1 cap(s) spironolactone MULTUM 24748 25 mg orally 3 Active 1 tab(s) times a day levothyroxine MULTUM 83204 112 mcg orally Active 2 caps once a day carvedilol MULTUM 88965 12.5 mg orally 2 Active 1 tab(s) times a day furosemide MULTUM 66080 40 mg orally once Jun 26, Active 1 tab(s) a day 2014 Crestor MULTUM 57757 10 mg orally once Jan 27, Active 1 tab(s) a day (at bedtime) 2012 Ranexa MULTUM 14269 1000 mg orally 2 Active 1 tab(s) times a day gemfibrozil MULTUM 89328 600 mg orally 2 Active 1 tab(s) times a day losartan MULTUM 53288 50 mg orally once Active 1 tab(s) a day Lantus MULTUM 14367 100 units/mL Active 34 units at subcutaneously [...]
--- OUTSIDE RECORDS SUMMARY | 2017-12-30 21:35 | XMS REPORT ---
:1935 Author Organization eClinicalWorks Care Team Providers Name Role Phone PHYLLIS [place] Provider Role Unavailable Encounters Encounter Location Date Established Patient [facility], [facility] Jun 25, 2014 [place] refill [facility], [facility] Aug 06, 2014 Unknown [facility], [facility] August 18, 2014 chest pain. 10/06 [facility], [facility] October 07, 2014 Established Patient [facility], [facility] December 17, 2013 STRESS TEST [facility], [facility] December 17, 2013 Established Patient [facility], [facility] Mar 19, 2014 Established Patient [facility], [facility] May 12, 2015 Established Patient [facility], [facility] Jan 18, 2015 possible heart attack [facility], [facility] May 11, 2015 Problems Problem Type Condition ICD-9 Code Onset Dates Condition Status Problem 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 [place] coronary artery with other forms of angina [...]
--- OUTSIDE RECORDS SUMMARY | 2017-12-30 21:35 | XMS REPORT ---
:1935 Author Organization eClinicalWorks Care Team Providers Name Role Phone CYN WHITT[place]Y Provider Role Unavailable Encounters Encounter Location Date Established Patient [facility], [facility] Jun 25, 2014 [place] refill [facility], [facility] Aug 06, 2014 Unknown [facility], [facility] August 18, 2014 chest pain. 10/06 [facility], [facility] October 07, 2014 Established Patient [facility], [facility] December 17, 2013 Pt in [facility] 05/18 [facility], [facility] May 18, 2015 STRESS TEST [facility], [facility] December 17, 2013 [place] Change-[place] [facility], [facility] October 19, 2015 Established Patient [facility], [facility] Mar 19, 2014 Established Patient [facility], [facility] May 12, 2015 Established Patient [facility], [facility] Jan 18, 2015 possible heart attack [facility], [facility] May 11, 2015 Problems Problem Type Condition ICD-9 Code Onset Dates Condition Status Problem Presence 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 Problem 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 [place] coronary artery with other forms of angina [...]
--- OUTSIDE RECORDS SUMMARY | 2017-12-30 21:36 | XMS REPORT ---
:1935 Author Organization [facility] Address [address] [place] [address] Care Team Providers Name Role Phone KARI DUNCAN Unavailable Unavailable Problems This patient has no known problems. Allergies, Adverse Reactions, Alerts This patient has no known allergies or adverse reactions. Medications This patient has no known medications. Results Test Description Test Time Test Comments Text Results Atomic Results Result Comments PROTHROMBIN TIME/INR 2017-12-20 07:35:00 Test Item Value Reference Range Comments PROTIME (BEAKER) (test ljnn=105) 15.1 seconds 11.7-14.7 INR (BEAKER) (test aeff=669) 1.2 <=5.9 RECOMMENDED COUMADIN/WARFARIN INR THERAPY RANGESSTANDARD DOSE: 2.0 - 3.0 Includes: PROPHYLAXIS forvenous thrombosis, systemic embolization; TREATMENT for venous thrombosis and/or pulmonary embolus.HIGH RISK: Target INR is 2.5-3.5 for patients with mechanical heart valves.BASIC METABOLIC [id number] 07:33: 00 Test Item Value Reference Range Comments SODIUM (BEAKER) (test 142 meq/L 136-145 qdyj=164) POTASSIUM (BEAKER) (test 4.1 meq/L 3.5-5.1 pqtl=798) CHLORIDE (BEAKER) (test 105 meq/L 98-107 xhnc=568) CO2 (BEAKER) (test 28 meq/L 22-29 oqpz=330) BLOOD UREA NITROGEN 30 mg/dL 7-21 (BEAKER) (test pqad=863) CREATININE (BEAKER) (test 1.90 mg/dL 0.57-1.25 aviy=499) GLUCOSE RANDOM (BEAKER) 118 mg/dL 70-105 (test gotp=596) CALCIUM (BEAKER) (test 9.1 mg/dL 8.4-10.2 rykc=061) EGFR (BEAKER) (test 34 mL/min/1.73 sq m ESTIMATED GFR IS NOT fzfe=6475) ACCURATE CREATININE CLEARANCE IN PREDICTING GLOMERULAR FILTRATION RATE. ESTIMATED GFR IS NOT APPLICABLE FOR DIALYSIS PATIENTS. CBC W/PLT COUNT & AUTO [id number] 07:16:00 Test Item Value Reference Range Comments WHITE BLOOD CELL COUNT (BEAKER) (test ftey=206) 4.6 K/ L 3.5-10.5 RED BLOOD CELL COUNT (BEAKER) (test yule=965) 3.33 M/ L 4.63-6.08 HEMOGLOBIN (BEAKER) (test eqog=810) 10.1 GM/DL 13.7-17.5 HEMATOCRIT (BEAKER) (test ykwg=541) 31.9 % 40.1-51.0 MEAN CORPUSCULAR VOLUME (BEAKER) (test mfks=536) 95.8 fL 79.0-92.2 MEAN CORPUSCULAR HEMOGLOBIN (BEAKER) (test 30.3 pg 25.7-32.2 ycsy=815) MEAN CORPUSCULAR HEMOGLOBIN CONC (BEAKER) (test 31.7 GM/DL 32.3-36.5 bzbb=068) RED CELL DISTRIBUTION WIDTH (BEAKER) (test 17.4 % 11.6-14.4 vbki=411) PLATELET COUNT (BEAKER) (test omsj=160) 99 K/CU MM 150-450 MEAN PLATELET VOLUME (BEAKER) (test xqnc=390) 11.0 fL 9.4-12.4 NUCLEATED RED BLOOD CELLS (BEAKER) (test 0 /100 WBC 0-0 zttp=114) NEUTROPHILS RELATIVE PERCENT (BEAKER) (test 68 % ubvi=415) LYMPHOCYTES RELATIVE PERCENT (BEAKER) (test 20 % qtzp=828) MONOCYTES RELATIVE PERCENT (BEAKER) (test 9 % vzsk=339) EOSINOPHILS RELATIVE PERCENT (BEAKER) (test 2 % rxcd=520) BASOPHILS RELATIVE PERCENT (BEAKER) (test 0 % djlt=832) NEUTROPHILS ABSOLUTE COUNT (BEAKER) (test 3.12 K/ L 1.78-5.38 gemj=547) LYMPHOCYTES ABSOLUTE COUNT (BEAKER) (test 0.93 K/ L 1.32-3.57 cxks=607) MONOCYTES ABSOLUTE COUNT (BEAKER) (test lenq=587) 0.40 K/ L 0.30-0.82 EOSINOPHILS ABSOLUTE COUNT (BEAKER) (test 0.09 K/ L 0.04-0.54 camo=743) BASOPHILS ABSOLUTE COUNT (BEAKER) (test bowj=847) 0.01 K/ L 0.01-0.08 IMMATURE GRANULOCYTES-RELATIVE PERCENT (BEAKER) 0 % 0-1 (test ynyd=1762)
[2017-12-30 22:00] LABS: Absolute Lymphocytes (CBC) 0.9 K/uL (0.7-4.9); Absolute Monocytes 0.3 K/uL (0.1-1.3); Absolute Neutrophil 3.4 K/uL (1.8-8.0); Basophils % 0.4 % (0-1.3); Hematocrit 31.9 % (39.6-49.0); Lymphocytes % 19.5 % (15.3-44.8); MCH 32.2 pg (27.0-35.0); MCV 96.2 fL (80-100); MPV 9.2 fL (7.6-11.3); Monocytes % 6.5 % (3.3-12.3); RBC Red Blood Cell Count 3.32 M/uL (4.33-5.43)
[2017-12-30 22:05] LABS: Protime INR 1.13
[2017-12-30 22:19] LABS: Albumin 3.7 g/dL (3.4-5.0); Bilirubin Direct 0.3 mg/dL (0-0.2); Bilirubin Total 0.9 mg/dL (0.2-1.0); CKMB Creatine Kinase MB 2.6 ng/mL (0.3-3.6); Magnesium 2.5 mg/dL (1.8-2.4); Potassium 3.9 mmol/L (3.5-5.1); Protein, Total 7.1 g/dL (6.4-8.2)
[2017-12-30 23:22] LABS: Urine Blood NEGATIVE (NEG); Urine Glucose NEGATIVE (NEG); Urine Protein 1+ (NEG)
--- NOTE | 2017-12-31 00:07 | ER ---
Nurse's Notes [facility] Name: Blayne Ashford Age: 82 yrs Sex: Male : 1935 Arrival Date: 12/30/2017 Time: 21:28 Bed 14 Private MD: Diagnosis: Chest pain, unspecified Presentation: 12/30 21:28 Presenting complaint: EMS states: "Called out for patient c/o chest pain, upon arrival bs1 patient denies chest pain/pain resolved after he took 4 stephen, [facility] denies patient taking nitro, that he does not have a home medication for nitro, but patient had a bottle that he took out of his pocket." Hx of A-fib. EKG shows a-fib w/ some A- flutter. Transition of care: patient was received from another setting of care (long-term care facility), [facility]. Onset of symptoms was December 30, 2017. Risk Assessment: Do you want to hurt yourself or someone else? Patient reports no desire to harm self or others. Initial Sepsis Screen: Does the patient meet any 2 criteria? No. Patient's initial sepsis screen is negative. Does the patient have a suspected source of infection? No. Patient's initial sepsis screen is negative. Care prior to arrival: Glucose check: 203 EKG- A-fib w/ A-flutter. Blood pressure 124/68, pulse 60 , respirations 12, 98% room air. 21:28 Method Of Arrival: EMS: [facility] bs1 21:28 Acuity: LASHANDA 3 bs1 Historical: - Allergies: 21:46 No Known Allergies; bs1 - Home Meds: 21:46 atorvastatin 40 mg Oral tab 2 tabs nightly [Active]; clopidogrel 75 mg Oral tab once bs1 daily [Active]; exelon patch daily [Active]; glimepiride 2 mg Oral tab once daily [Active]; isosorbide dinitrate 20 mg Oral tab 2 times per day [Active]; Januvia 50 mg Oral tab once daily [Active]; lactulose 10 gram/15 mL Oral soln 30 mL nightly [Active]; Lasix 40 mg Oral tab 2 times per day [Active]; levothyroxine 100 mcg tab 2 tabs once daily [Active]; losartan 25 mg Oral tab once daily [Active]; metoprolol succinate 25 mg Oral Tb24 twice a day [Active]; omeprazole 20 mg Oral TbEC daily [Active]; Ranexa 1,000 mg Oral Tb12 2 times per day [Active]; Risperdal 0.25 mg Oral tab daily [Active]; Risperdal 0.5 mg Oral tab nightly [Active]; spironolactone 25 mg Oral tab once daily [Active]; tamsulosin 0.4 mg Oral cp24 once daily [Active]; - PMHx: 21:46 angina pectoris; Anxiety; Atrial Fib; Hypothyroidism; Hypertension; Dementia; bs1 Pacemaker; Pneumonia; Hyperlipidemia; COPD; CAD; BPH; HEART FAILURE; Diabetes - NIDDM; hematuria; muscle weakness; - PSHx: 21:46 pacemaker; triple bypass; bs1 - Immunization history:: Adult Immunizations up to date. - Social history:: Smoking status: Patient/guardian denies using tobacco. - Ebola Screening: : Patient negative for fever greater than or equal to 101.5 degrees Fahrenheit, and additional compatible Ebola Virus Disease symptoms Patient denies exposure to infectious person. Screenin:59 Abuse screen: Denies threats or abuse. Denies injuries from another. Nutritional bs1 screening: No deficits noted. Tuberculosis screening: No symptoms or risk factors identified. Fall Risk None identified. Assessment: 21:55 General: Appears in no apparent distress. comfortable, Behavior is calm, cooperative, bs1 appropriate for age. Pain: Denies pain. Neuro: Level of Consciousness is awake, alert, obeys commands, Oriented to person, situation, Spinning Supervisor are equal bilaterally Facial symmetry appears normal, Pupils are PERRLA. Cardiovascular: Reports since Patient reports he had chest pain but resolved upon EMS arrival. Patient denies chest pain at this time. Reports having the chest pain to left chest wall, denies pain radiating. denies any numbness or tingling. Denies chest pain, lightheadedness, nausea, palpitations, shortness of breath, syncope, vomiting, Heart tones S1 S2 present Capillary refill < 3 seconds Patient's skin is warm and dry. Respiratory: Airway is patent Trachea midline Breath sounds are clear bilaterally. GI: No signs and/or symptoms were reported involving the gastrointestinal system. : No signs and/or symptoms were reported regarding the genitourinary system. EENT: No signs and/or symptoms were reported regarding the EENT system. Derm: Skin is intact. Musculoskeletal: Circulation, motion, and sensation intact. Capillary refill < 3 seconds, Range of motion: intact in all extremities. 21:55 Pain: Pain does not radiate. Pain began gradually. bs1 22:55 Reassessment: Patient appears in no apparent distress at this time. Patient and/or bs1 family updated on plan of care and expected duration. Pain level reassessed. Patient is alert, oriented x 3, equal unlabored respirations, skin warm/dry/pink. Patient denies pain at this time. 23:30 Reassessment: Patient states he feels SOB at rest. Oxygen saturation wnl on room air. bs1 Administered oxygen 2L NC. 12/31 00:15 Reassessment: No changes from previously documented assessment. Patient and/or family bs1 updated on plan of care and expected duration. Pain level reassessed. Patient is alert, oriented x 3, equal unlabored respirations, skin warm/dry/pink. Denies chest pain at this time. Patient denies pain at this time. 01:05 Reassessment: Patient appears very uncomfortable. Patient states "I am having a hard bs1 time breathing, I feel like im dying now." Audible expiratory wheezes heard. Informed TRIPE COOKER Angi to assess patient. 2L NC oxygen still in place. Patient sitting straight up at edge of bed. Informed that Dr Glover will come see patient and then he will be transferred to floor. 01:45 Reassessment: Patient appears in no apparent distress at this time. Patient and/or bs1 family updated on plan of care and expected duration. Pain level reassessed. Patient is alert, oriented x 3, equal unlabored respirations, skin warm/dry/pink. Patient states symptoms have improved. Vital Signs: 12/30 21:28 BP 105 / 91; Pulse 55; Resp 14; Temp 98.3(O); Pulse Ox 99% on R/A; Weight 88 kg; Height bs1 5 ft. 7 in. (170.18 cm); Pain 0/10; 22:28 BP 134 / 56; Pulse 58; Resp 18; Pulse Ox 99% on R/A; bs1 23:28 BP 141 / 81; Pulse 74; Resp 17; Pulse Ox 98% on 2 lpm NC; bs1 12/31 00:28 BP 144 / 82; Pulse 76; Resp 18 S; Pulse Ox 97% on 2 lpm NC; bs1 01:15 BP 165 / 85; Pulse 75; Resp 17; Pulse Ox 100% on 2 lpm NC; Pain 0/10; bs1 01:42 BP 139 / 85; Pulse 61; Resp 15; Temp 98(O); Pulse Ox 100% 2 lpm ; Pain 0/10; bs1 12/30 21:28 Body Mass Index 30.38 (88.00 kg, 170.18 cm) bs1 ED Course: 12/30 21:28 Patient arrived in ED. bs1 21:32 Triage completed. bs1 21:40 Ashley Rocha RN is Primary Nurse. bs1 21:43 Chan Whitley NP is PHCP. pm1 21:43 Tutu Thompson MD is Attending Physician. pm1 21:53 Initial lab(s) drawn, by me, sent to lab. Inserted saline lock: 22 gauge in left wrist, ks6 using aseptic technique. 21:59 Patient has correct armband on for positive identification. Bed in low position. Call bs1 light in reach. Side rails up X 1. machine taper on. Pulse ox on. NIBP on. 22:00 Patient maintains SpO2 saturation greater than 95% on room air. bs1 22:00 Arm band placed on left wrist. EKG completed in triage. Results shown to MD. bs1 22:01 X-ray completed. Portable x-ray completed in exam room. Patient tolerated procedure sw well. 22:02 XRAY Chest (1 view) In Process Unspecified. EDMS 12/31 00:06 Eugene Sheehan MD is Hospitalizing Provider. pm1 01:43 No provider procedures requiring assistance completed. Patient admitted, IV remains in bs1 place. intact. Administered Medications: 01:13 Drug: Lasix 80 mg Route: IVP; Site: left forearm; bs1 01:44 Follow up: Response: No adverse reaction bs1 Outcome: 00:07 Decision to Hospitalize by Provider. pm1 01:43 Admitted to Tele accompanied by doris, via stretcher, room 428, with oxygen, with chart, bs1 Report called to CARLEY Quintero 01:43 Condition: stable 01:43 Instructed on the need for admit, Demonstrated understanding of instructions. 01:45 Patient left the ED. bs1 Signatures: Dispatcher [employer] EDMS Debbie Andino Patrick, JENSEN TRIPE COOKER pm1 Ashley Rocha RN RN bs1 Eder Noland ks6
--- NOTE | 2017-12-31 00:07 | EDPHYS ---
Physician Documentation [facility] Name: Blayne Ashford Age: 82 yrs Sex: Male : 1935 Arrival Date: 12/30/2017 Time: 21:28 Bed 14 Private MD: ED Physician Tutu Thompson HPI: 12/30 22:36 This 82 yrs old Male presents to ER via EMS with complaints of Chest Pain > pm1 28 y/o. 22:36 The patient or guardian reports chest pain that is located primarily in the mid-sternal pm1 area. 22:36 Onset: Around 2100. The pain does not radiate. Associated signs and symptoms: Pertinent pm1 positives: shortness of breath, Pertinent negatives: abdominal pain, diaphoresis, dizziness, nausea, near syncope, palpitations, vomiting. The chest pain is described as a pressure. Duration: The patient or guardian reports a single episode, that is now resolved. Modifying factors: The symptoms are alleviated by NTG, X3. the symptoms are aggravated by nothing. Severity of pain: in the emergency department the pain has resolved is a 0 / 10. Patient has his pacemaker battery replaced recently. Historical: - Allergies: 21:46 No Known Allergies; bs1 - Home Meds: 21:46 atorvastatin 40 mg Oral tab 2 tabs nightly [Active]; clopidogrel 75 mg Oral tab once bs1 daily [Active]; exelon patch daily [Active]; glimepiride 2 mg Oral tab once daily [Active]; isosorbide dinitrate 20 mg Oral tab 2 times per day [Active]; Januvia 50 mg Oral tab once daily [Active]; lactulose 10 gram/15 mL Oral soln 30 mL nightly [Active]; Lasix 40 mg Oral tab 2 times per day [Active]; levothyroxine 100 mcg tab 2 tabs once daily [Active]; losartan 25 mg Oral tab once daily [Active]; metoprolol succinate 25 mg Oral Tb24 twice a day [Active]; omeprazole 20 mg Oral TbEC daily [Active]; Ranexa 1,000 mg Oral Tb12 2 times per day [Active]; Risperdal 0.25 mg Oral tab daily [Active]; Risperdal 0.5 mg Oral tab nightly [Active]; spironolactone 25 mg Oral tab once daily [Active]; tamsulosin 0.4 mg Oral cp24 once daily [Active]; - PMHx: 21:46 angina pectoris; Anxiety; Atrial Fib; Hypothyroidism; Hypertension; Dementia; bs1 Pacemaker; Pneumonia; Hyperlipidemia; COPD; CAD; BPH; HEART FAILURE; Diabetes - NIDDM; hematuria; muscle weakness; - PSHx: 21:46 pacemaker; triple bypass; bs1 - Immunization history:: Adult Immunizations up to date. - Social history:: Smoking status: Patient/guardian denies using tobacco. - Ebola Screening: : Patient negative for fever greater than or equal to 101.5 degrees Fahrenheit, and additional compatible Ebola Virus Disease symptoms Patient denies exposure to infectious person. ROS: 22:39 Constitutional: Negative for fever, chills, and weight loss, Eyes: Negative for injury, pm1 pain, redness, and discharge, ENT: Negative for injury, pain, and discharge, Neck: Negative for injury, pain, and swelling. 22:39 Abdomen/GI: Negative for abdominal pain, nausea, vomiting, diarrhea, and constipation, Back: Negative for injury and pain, : Negative for injury, bleeding, discharge, and swelling, MS/Extremity: Negative for injury and deformity, Skin: Negative for injury, rash, and discoloration, Neuro: Negative for headache, weakness, numbness, tingling, and seizure. 22:39 Cardiovascular: Positive for chest pain, resolved with nitro x 3, Negative for edema, orthopnea, palpitations. 22:39 Respiratory: Positive for SOB with his chest pain, no resolved. Exam: 22:39 Constitutional: This is a well developed, well nourished patient who is awake, alert, pm1 and in no acute distress. Head/Face: Normocephalic, atraumatic. Eyes: Pupils equal round and reactive to light, extra-ocular motions intact. Lids and lashes normal. Conjunctiva and sclera are non-icteric and not injected. Cornea within normal limits. Periorbital areas with no swelling, redness, or edema. Neck: Trachea midline, no thyromegaly or masses palpated, and no cervical lymphadenopathy. Supple, full range of motion without nuchal rigidity, or vertebral point tenderness. No Meningismus. Chest/axilla: Normal chest wall appearance and motion. Nontender with no deformity. No lesions are appreciated. Cardiovascular: Regular rate and rhythm with a normal S1 and S2. No gallops, murmurs, or rubs. No pulse deficits. Respiratory: Lungs have equal breath sounds bilaterally, clear to auscultation and percussion. No rales, rhonchi or wheezes noted. No increased work of breathing, no retractions or nasal flaring. Abdomen/GI: Soft, non-tender, with normal bowel sounds. No distension or tympany. No guarding or rebound. No evidence of tenderness throughout. Back: No spinal tenderness. No costovertebral tenderness. Full range of motion. Skin: Warm, dry with normal turgor. Normal color with no rashes, no lesions, and no evidence of cellulitis. MS/ Extremity: Pulses equal, no cyanosis. Neurovascular intact. Full, normal range of motion. 22:39 Neuro: Orientation: is normal, Motor: moves all fours, Sensation: is normal, no obvious gross deficits. Vital Signs: 21:28 BP 105 / 91; Pulse 55; Resp 14; Temp 98.3(O); Pulse Ox 99% on R/A; Weight 88 kg; Height bs1 5 ft. 7 in. (170.18 cm); Pain 0/10; 22:28 BP 134 / 56; Pulse 58; Resp 18; Pulse Ox 99% on R/A; bs1 23:28 BP 141 / 81; Pulse 74; Resp 17; Pulse Ox 98% on 2 lpm NC; bs1 12/31 00:28 BP 144 / 82; Pulse 76; Resp 18 S; Pulse Ox 97% on 2 lpm NC; bs1 01:15 BP 165 / 85; Pulse 75; Resp 17; Pulse Ox 100% on 2 lpm NC; Pain 0/10; bs1 01:42 BP 139 / 85; Pulse 61; Resp 15; Temp 98(O); Pulse Ox 100% 2 lpm ; Pain 0/10; bs1 12/30 21:28 Body Mass Index 30.38 (88.00 kg, 170.18 cm) bs1 MDM: 12/30 21:44 Patient medically screened. pm1 22:40 Data reviewed: vital signs. Data interpreted: Pulse oximetry: on room air is 99 %. pm1 Interpretation: normal. 12/31 00:06 Counseling: I had a detailed discussion with the patient and/or guardian regarding: the pm1 historical points, exam findings, and any diagnostic results supporting the discharge/admit diagnosis, lab results, radiology results, the need for further work-up and treatment in the hospital. 12/30 21:44 Order name: Basic Metabolic Panel; Complete Time: 23:04 pm1 12/30 21:44 Order name: CBC with Diff; Complete Time: 23:04 pm12/30 21:44 Order name: Ckmb; Complete Time: 23:04 pm1 12/30 21:44 Order name: CPK; Complete Time: 23:04 pm1 12/30 21:44 Order name: LFT's; Complete Time: 23:04 pm1 12/30 21:44 Order name: Magnesium; Complete Time: 23:04 pm1 12/30 21:44 Order name: NT PRO-BNP; Complete Time: 23:04 pm12/30 21:44 Order name: PT-INR; Complete Time: 23:04 pm12/30 21:44 Order name: Ptt, Activated; Complete Time: 23:04 pm1 12/30 21:44 Order name: Troponin (emerg Dept Use Only); Complete Time: 23:04 pm1 12/30 21:44 Order name: XRAY Chest (1 view) pm1 12/30 21:50 Order name: TSH; Complete Time: 23:04 bs1 12/30 22:29 Order name: T4 Free; Complete Time: 23:04 EDMS 12/30 23:17 Order name: Urine Dipstick--Ancillary (enter results); Complete Time: 23:27 mt 12/30 21:44 Order name: EKG; Complete Time: 21:44 pm1 12/30 21:44 Order name: Cardiac monitoring; Complete Time: 22:05 pm12/30 21:44 Order name: EKG - Nurse/Tech; Complete Time: 21:54 pm12/30 21:44 Order name: IV Saline Lock; Complete Time: 21:54 pm1 12/30 21:44 Order name: Labs collected and sent; Complete Time: 21:54 pm12/30 21:44 Order name: O2 Per Protocol; Complete Time: 21:54 pm12/30 21:44 Order name: O2 Sat Monitoring; Complete Time: 21:54 pm12/30 21:44 Order name: Urine Dipstick-Ancillary (obtain specimen); Complete Time: 23:16 pm1 Administered Medications: 01:13 Drug: Lasix 80 mg Route: IVP; Site: left forearm; bs1 01:44 Follow up: Response: No adverse reaction bs1 Disposition: 07:19 Co-signature as Attending Physician, Tutu Thompson MD. Disposition: 12/31/17 00:07 Hospitalization ordered by Eugene Sheehan for Observation. Preliminary diagnosis is Chest pain, unspecified. - Bed requested for Telemetry/MedSurg (observation). - Status is Observation. bs1 - Condition is Stable. - Problem is new. - Symptoms have improved. UTI on Admission? No Signatures: Dispatcher [employer] EDMS Brittani Garcia RN RN Chan Whitley, WALL MIRROR DEPARTMENT SUPERVISOR WALL MIRROR DEPARTMENT SUPERVISOR pm1 Tutu Thompson MD MD Ashley Rocha RN RN bs1 Corrections: (The following items were deleted from the chart) 00:14 00:07 Hospitalization Ordered by Eugene Sheehan MD for Observation. Preliminary diagnosis is Chest pain, unspecified. Bed requested for Telemetry/MedSurg (observation). Status is Observation. Condition is Stable. Problem is new. Symptoms have improved. UTI on Admission? No. pm1 01:45 00:14 12/31/2017 00:07 Hospitalization Ordered by Eugene Sheehan MD for Observation. bs1 Preliminary diagnosis is Chest pain, unspecified. Bed requested for Telemetry/MedSurg (observation). Status is Observation. Condition is Stable. Problem is new. Symptoms have improved. UTI on Admission? No. mw
[2017-12-31] MEDS ORDERED: FUROSEMIDE 40 MG/4 ML VIAL ONE (01:10)
--- NOTE | 2017-12-31 01:23 | P.HP ---
Certification for Inpatient Patient admitted to: Observation With expected LOS: <2 Midnights Practitioner: I am a practitioner with admitting privileges, knowledge of patient current condition, hospital course, and medical plan of care. Services: Services provided to patient in accordance with Admission requirements found in Title 42 Section 412.3 of the Code of Federal Regulations Patient History Date of Service: 12/31/17 Reason for admission: unstable angina History of Present Illness: Mr Ashford is an 82 years old male with multiple medical problems including, Dementia, CAD, Pacemaker placement, A.Fib, who lives in a local long-term, came to ED complaining of chest pain. The patient is not a good historian due to his dementia, however, he was able to tell that has had chest pain episode, substernal, associated with SOB, 8/10 of intensity. He took 4 Nitro SL, gradually the pain subsided. At the time of my evaluation, his chest pain was resolved, however, he still has SOB. Also has bilateral lower extremity edema. Lab work remarkable for elevated TSH, creatinine 1.7 about his baseline, and alevated BNP. Allergies No Known Allergies Allergy (Verified 10/19/17 16:09) Home medications list reviewed: Yes Home Medications: Atorvastatin Calcium [Lipitor] 80 mg PO BEDTIME 10/20/17 Clopidogrel Bisulfate [Clopidogrel] 75 mg PO DAILY 10/20/17 Furosemide [Lasix*] 40 mg PO BID 10/20/17 Glimepiride [Amaryl*] 2 mg PO DAILY 10/20/17 Isosorbide Dinitrate 20 mg PO BID 10/20/17 Lactulose [Enulose] 30 ml PO BEDTIME 10/20/17 Levothyroxine [Synthroid*] 200 mcg PO DAILY 10/20/17 Losartan Potassium 25 mg PO DAILY 10/20/17 Omeprazole 20 mg PO DAILY 10/20/17 Ranolazine [Ranexa] 1,000 mg PO BID 10/20/17 Rivastigmine Patch [Exelon 9.5 mg Patch] 13.3 mg TD DAILY 10/20/17 Sitagliptin Phosphate [Januvia*] 50 mg PO DAILY 10/20/17 Spironolactone [Aldactone*] 25 mg PO DAILY 10/20/17 Tamsulosin [Flomax*] 0.4 mg PO DAILY 10/20/17 risperiDONE [Risperdal 0.25 MG TAB*] 0.25 mg PO DAILY 10/20/17 risperiDONE [Risperdal 0.25 MG TAB*] 0.5 mg PO 1700 10/20/17 Metoprolol Tartrate [Lopressor*] 25 mg PO BID #60 tab 10/22/17 - Past Medical/Surgical History Diabetic: Yes -: DM -: PAcemaker -: afib per hx -: CAD -: chronic systolic CHF EF 25-29% -: pacemaker - Family History Family History: Reviewed- Non-Contributory - Social History Alcohol use: No CD- Drugs: No Caffeine use: Yes Place of Residence: [place] Review of Systems 10-point ROS is otherwise unremarkable Physical Examination - Physical Exam General: Alert, In no apparent distress, Demented HEENT: Atraumatic, PERRLA, Mucous membr. moist/pink, EOMI, Sclerae nonicteric Neck: Supple, 2+ carotid pulse no bruit, No LAD, Without JVD or thyroid abnormality Respiratory: Normal air movement, Crackles/rales (bibasilar rales) Cardiovascular: Regular rate/rhythm, Normal S1 S2 Gastrointestinal: Normal bowel sounds, No tenderness Musculoskeletal: No tenderness, Swelling (bilateral LE edema 2+) Integumentary: No rashes Neurological: Normal speech, Normal strength at 5/5 x4 extr, Normal tone, Normal affect, Dementia Lymphatics: No axilla or inguinal lymphadenopathy - Studies Laboratory Data (last 24 hrs) 12/30/17 21:48: PT 13.3 H, INR 1.13, APTT 31.8 12/30/17 21:48: WBC 4.8, Hgb 10.7 L, Hct 31.9 L, Plt Count 105 L 12/30/17 21:48: Sodium 139, Potassium 3.9, BUN 23 H, Creatinine 1.70 H, Glucose 164 H, Magnesium 2.5 H, Total Bilirubin 0.9, AST 17, ALT 17, Alkaline Phosphatase 117 Assessment and Plan - Problems (Diagnosis) (1) CAD (coronary artery disease) Current Visit: Yes Status: Acute Qualifiers: Coronary Disease-Associated Artery/Lesion type: bypass graft, autologous vein Associated angina: with unstable angina Qualified Code(s): I25.710 - 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 (2) Unstable angina Current Visit: Yes Status: Acute (3) Chest pain Onset Date: 10/21/17 Current Visit: No Status: Acute Qualifiers: Chest pain type: chest pain due to myocardial ischemia Ischemic chest pain type: unstable angina pectoris Qualified Code(s): I20.0 - Unstable angina (4) Diabetes mellitus Onset Date: 10/21/17 Current Visit: No Status: Acute Qualifiers: Diabetes mellitus type: type 2 Diabetes mellitus [facility] insulin use: without [facility] use Diabetes mellitus complication status: with other specified complication Qualified Code(s): E11.69 - Type 2 diabetes mellitus with other specified complication (5) BPH (benign prostatic hyperplasia) Current Visit: No Status: Chronic Qualifiers: Lower urinary tract symptom presence: unspecified whether lower urinary tract symptoms present Qualified Code(s): N40.0 - Benign prostatic hyperplasia without lower urinary tract symptoms (6) Chronic renal disease Current Visit: No Status: Chronic Qualifiers: Chronic kidney disease stage: stage 3 (moderate) Qualified Code(s): N18.3 - Chronic kidney disease, stage 3 (moderate) (7) Dementia Current Visit: No Status: Chronic Qualifiers: Dementia type: unspecified type Dementia behavioral disturbance: without behavioral disturbance Qualified Code(s): F03.90 - Unspecified dementia without behavioral disturbance (8) Hypothyroidism Onset Date: 10/21/17 Current Visit: No Status: Chronic Qualifiers: Hypothyroidism type: unspecified Qualified Code(s): E03.9 - Hypothyroidism , unspecified (9) Acute on chronic systolic (congestive) heart failure Current Visit: Yes Status: Acute - Plan Mr Ashford will be admitted to the hospital due to unstable angina. Trop I is within normal limits, EKG A.Flutter 66 bpm, no ST abnormalities, T wave inversion in inferior leads. The patient has a recent ECHO showing severe depression of LV function with EF 25-29%. His CXR is consistent with CHF exacerbation, will order IV lasix. Continue serial troponin I and EKG. Consult Cardiology team for medication optimization. TSH sifgnificatly elevated, likely is not taking his levothyroxine, will resume it here. - Advance Directives Does patient have a Living Will: No Does patient have a Durable POA for Healthcare: Yes - Code Status/Comfort Care Code Status Assessed: Yes Code Status: Full Code
[2017-12-31] MEDS ORDERED: ACETAMINOPHEN 500 MG TAB PO PRN (02:08)
[2017-12-31] MEDS ORDERED: ONDANSETRON 4 MG/2 ML VIAL IV PRN (02:08)
[2017-12-31 02:42] VITALS: BMI 27.3
[2017-12-31 04:27] LABS: Urine Appearance CLEAR; Urine Bilirubin NEGATIVE (NEG); Urine Blood NEGATIVE (NEG); Urine Color YELLOW; Urine Glucose NEGATIVE (NEG); Urine Protein NEGATIVE (NEG)
[2017-12-31 04:34] LABS: Urine Microscopic Reflex NO UMIC
[2017-12-31] MEDS ORDERED: LEVOTHYROXINE SOD 0.1 MG TAB PO SCH (06:00)
[2017-12-31] MEDS: INSULIN -REGULAR HUMAN 50 UNIT/0.5 ML ML SQ SCH ×2 (07:30→11:30)
[2017-12-31] MEDS ORDERED: PANTOPRAZOLE 40MG TABLET PO SCH (07:30)
--- NOTE | 2017-12-31 07:55 | RAD REPORT ---
EXAM DESCRIPTION: Jurgen Single View12/30/2017 10:02 pm CLINICAL HISTORY: Chest pain COMPARISON: October 2017 FINDINGS: Mild bilateral interstitial lung opacities are present. The heart is mildly to moderately enlarged. Postsurgical changes involve the chest. Pacemaker lead is in place IMPRESSION: Mild CHF
[2017-12-31] MEDS ORDERED: RIVASTIGMINE 13.3 MG/24 HR TOP SCH (09:00)
[2017-12-31] MEDS ORDERED: LOSARTAN POTASSIUM 50 MG TABLET PO SCH (09:00)
[2017-12-31] MEDS ORDERED: SPIRONOLACTONE 25 MG TABLET PO SCH (09:00)
[2017-12-31] MEDS ORDERED: TAMSULOSIN 0.4 MG SR CAP PO SCH (09:00)
[2017-12-31] MEDS ORDERED: RISPERIDONE 0.25 MG TABLET PO SCH ×2 (09:00→17:00)
[2017-12-31] MEDS ORDERED: ENOXAPARIN 30 MG/0.3 ML SQ SCH (09:00)
[2017-12-31] MEDS ORDERED: CLOPIDOGREL 75 MG TABLET PO SCH (09:00)
[2017-12-31] MEDS ORDERED: FUROSEMIDE 40 MG/4 ML VIAL IV SCH (09:00)
[2017-12-31] MEDS ORDERED: ISOSORBIDE DINIT 20 MG TAB PO SCH (09:00)
--- NOTE | 2017-12-31 12:14 | EKG ---
Test Date: 2017-12-30 Test Time: 21:24:44 Industrial Automation Specialist: IRINA MEASUREMENT RESULTS: Intervals: Rate: 64 AL: 124 QRSD: 98 QT: 442 QTc: 455 [place]: P: 66 AL: 124 QRS: -29 T: 158 INTERPRETIVE STATEMENTS: Sinus rhythm with fusion complexes and premature atrial complexes with aberrant conduction T wave abnormality, consider inferolateral ischemia Abnormal ECG Compared to ECG 10/19/2017 12:26:37 Atrial premature complex(es) now present Fusion complex(es) now present Aberrant conduction of supraventricular beat(s) now present T-wave abnormality now present Left ventricular hypertrophy no longer present Myocardial infarct finding no longer present ST (T wave) deviation no longer present Possible ischemia still present Electronically Signed On 12-31-17 12:11:55 CDT by Haroldo Rojas
[2017-12-31 14:40] VITALS: BP 101/46; TEMP 97.7
[2017-12-31 15:14] VITALS: O2SAT 96
[2017-12-31] MEDS ORDERED: METOPROLOL TAR 25 MG TAB PO SCH (21:00)
[2017-12-31] MEDS ORDERED: ATORVASTATIN 80 MG TAB PO SCH (21:00)
--- NOTE | 2018-01-01 02:03 | CON ---
Date of Consultation: 12/31/2017 Additional Admitting Physician: Shweta Cantu MD. Reason For Consultation: Chest pain. History Of Present Illness: Mr. Ashford is an 82-year-old male, has a history of CABG. He has a histor y of severe chronic systolic congestive heart failure with an ejection fraction of 18%. He had a neg ative test for ischemia in October of 2017. Echocardiogram at that point showed 25-29% ejection fraction . He has a history of GERD, thyroid, dementia, BPH, hypertension, dyslipidemia, diabetes, coronary a rtery disease, COPD, and he has status post pacemaker, came in with atypical chest pain. ID has been ruled out. He had a BNP of 6685, glucose is 140, platelets 105, hemoglobin 10.7. His creatinine wa s 1.7. Allergies: NONE. Review of Systems: Negative. Social History: Negative. Family History: Noncontributory. Medications: At home are extensive and include Lipitor, Lopressor, Plavix, Prilosec, Ranexa, Januvia , Lasix, Amaryl, Imdur, Synthroid, losartan, Aldactone, Flomax, and Exelon patch. Physical Examination: Vital Signs: Stable. He is afebrile. HEENT: Negative. Neck: Supple with no bruit, lymphadenopathy, or JVD. Chest: Clear to auscultation and percussion. Cardiac: Revealed a regular rhythm and rate with S3 gallop and aortic sclerosis, murmur, but no rubs . Abdomen: Benign. Extremities: Reveal trace edema. Diagnostic Data: As stated earlier. TSH was elevated at 39. Impression And Plan: 1.Stable angina. I would increase his beta-dakota. He is definitely not a candidate for intervent ion considering all his medical issues as well as dementia. He had a negative Cardiolite 2 months ag o and I certainly would not repeat any further cardiac workup. His echocardiogram was also very rece nt. He is not in congestive heart failure. Certainly, the metoprolol can go up to 50 mg b.i.d. I w ould consider treating his thyroid dose to a higher level. His TSH is 39. 2.Chronic systolic congestive heart failure. 3.Coronary artery disease, status post CABG. 4.Status post pacemaker. 5.Chronic obstructive pulmonary disease. 6.Hypothyroidism. 7.Gastroesophageal reflux disease. 8.Benign prostatic hypertrophy. 9.Dementia. 10.Hypertension. 11.Dyslipidemia. 12.Diabetes. Forty five minutes were spent in the care of Mr. Ashford. He was instructed to be compliant with his me dication. Follow a low-fat, low-cholesterol diet. The case was discussed with his nurse and Dr. Yesi cárdenas. We will see how he does with his beta-dakota therapy being increased, but as far as I am concer reginaldo, he can go home whenever it is okay with Dr. Cantu. I would like to see him in the office soon. Right now, I think he sees somebody in [place]. VANESA/KO Voice ID: [id number] Report ID: [id number]
--- NOTE | 2018-01-01 03:08 | DS ---
Date of Discharge: 12/31/2017 Double Bottom Driver: Dr. Rojas with Cardiology. Discharging Diagnoses: 1. Chest pain. 2. Coronary artery disease, [place] artery and [place] heart without angina. 3. Diabetes mellitus type 2 without long-term use of insulin with hyperglycemia. 4. Benign prostatic hypertrophy. 5. Chronic kidney disease, stage 3. 6. Dementia, Alzheimer's type without behavioral disturbance. 7. Hypothyroidism. 8. Acute on chronic systolic heart failure. Hospital Course: The patient is an 82-year-old male from [facility], comes in with chest pain. The patient does have history of atrial fibrillation, pacemaker, dementia, heart disease. He was evaluated in the ER. His initial troponin level and EKG were negative. He did have elevated BNP and he was started on diuresis. The patient's kidney function was around his baseline of about 1.7. Of note, his TSH was elevated at 39, likely the patient is not taking his medication. Free T4 was 0.88. The patient did well over the course of the hospital stay. His saturations remained stable. He was seen by Dr. Rojas with Cardiology and was cleared for discharge. The patient was then [facility] in a [facility] condition. Activity: Fall precautions. Diet: Low-sodium, fluid-restricted diet. Followup: Follow up with PCP in 2-3 days. Follow up with spring fitter, Dr. Rojas, in 2 weeks. Return to ER for worsening condition. Medications: As per medication reconciliation list. Physical Examination: General: Awake, alert, oriented, no acute distress. CV: S1, S2. No murmurs. Respiratory: Moving air well bilaterally. No wheezing. Gastrointestinal: Abdomen is soft, nontender, nondistended. Positive bowel sounds. Extremities: No clubbing, cyanosis. The patient does have lower extremity edema. Neurologic: Nonfocal. SA/MODL Voice ID: [id number] Report ID: [id number] DOC
== END 2017-12-31 15:04 ==
LOC: ER 21:21 → ERHOLD 12-31 00:21 → 4TH 12-31 01:41
PROVIDERS: ADMIT Internal Medicine; ATTEND Internal Medicine
DX: R07.9 Chest pain, unspecified (principal); I48.91 Unspecified atrial fibrillation; I13.0 Hypertensive heart and chronic kidney disease with heart failure and stage 1 through stage 4 chronic kidney disease, or unspecified chronic kidney disease; E11.22 Type 2 diabetes mellitus with diabetic chronic kidney disease; N18.3 Chronic kidney disease, stage 3 (moderate); I50.23 Acute on chronic systolic (congestive) heart failure; E03.9 Hypothyroidism, unspecified; N40.0 Benign prostatic hyperplasia without lower urinary tract symptoms; J44.9 Chronic obstructive pulmonary disease, unspecified; I25.10 Atherosclerotic heart disease of native coronary artery without angina pectoris; Z95.1 Presence of aortocoronary bypass graft; Z95.0 Presence of cardiac pacemaker
CPT/HCPCS: 36415; 71045; 80048 ×2; 80076; 81003 ×2; 82550; 82553; 82962 ×3; 83735; 83880; 84439; 84443; 84484 ×3; 85025; 85610; 85730; 93005; 96374; 99285; G0378 ×2; J1650

== ENCOUNTER 2018-01-03 23:00 | Observation (INO) | payer OTHER ==
--- OUTSIDE RECORDS SUMMARY | 2018-01-03 23:03 | XMS REPORT | Clinical Summary ---
:1935 Author Organization [facility] Address [address] [place] [address] Phone Care Team Providers Name Role Phone [...] Dwayne Flores MD 12/17/2017 Procedure Pass after 01/02/2017 Social History Tobacco Use Types Packs/Day Years [...] Not on file Implants Implanted Type Area Severity Of Illness Coordinator Device Expiration Model / Identifier Date Serial / Lot Inogen El Icd Vr Defibrillators N/A: [place] 07/10/2019 D140 / Implanted: Qty: 1 on 12/20/2017 by Dwayne Flores MD Chest SCIENTIFIC [id number] / Procedures Procedure Name Priority Date/Time Associated Diagnosis Comments AICD GENERATOR - 12/20/2017 7:20 AM Dilated cardiomyopathy REMOVE & REPLACE CDT (HCC) (SINGLE LEAD) Case Notes 1st \\CASE POP6 after 01/02/2017 Results CARDIAC CATH REPORT - SCAN (12/24/2017 [...] % Specimen Performing Laboratory Blood - Arm, [address] [address] Prothrombin time/INR (12/20/2017 7:05 AM) Component Value Ref Range Protime 15.1 (H) 11.7 - 14.7 seconds INR 1.2 <=5.9 Specimen Performing Laboratory Blood - Arm, [address] [address] Narrative RECOMMENDED COUMADIN/WARFARIN INR THERAPY RANGES STANDARD [...] Status --------- ------ CBC with platelet count ...[[id number]]AbnormalFinal result Please view results for these tests [...] PATIENTS. Specimen Performing Laboratory Blood - Arm, [facility] [address] [place] [id number] ECG 12 lead (12/20/2017 7:00 AM) Specimen Performing Laboratory GE MUSE Narrative Ventricular Rate 58 BPM Atrial Rate 232 BPM QRS Duration 98 ms Q-T Interval 426 ms QTC Calculation(Bazett) 418 ms P [place] 45 degrees R [place] -25 degrees T [place] 139 degrees Atrial flutter with variable A-V block with premature ventricular or aberrantly conducted complexes Abnormal ECG No previous ECGs available Confirmed by James BEJARANO MICHAEL ([id number]) on 12/20/2017 7:33:36 AM Procedure Note Interface, External Ris In - 12/20/2017 7:33 AM CDT Ventricular Rate 58 BPM Atrial Rate 232 BPM QRS Duration 98 ms Q-T Interval 426 ms QTC Calculation(Bazett) 418 ms P [place] 45 degrees R [place] -25 degrees T [place] 139 degrees Atrial flutter with variable A-V block with premature ventricular or aberrantly conducted complexes Abnormal ECG No previous ECGs available Confirmed by James BEJARANO MICHAEL ([id number]) on 12/20/2017 7:33:36 AM after 01/02/2017
--- OUTSIDE RECORDS SUMMARY | 2018-01-03 23:14 | XMS REPORT | Continuity of Care Document ---
:1935 Author Organization Interface Problems Problem Status Onset Classification Date Comments Source Date Reported Irritability and anger The [address] [place] [address] Anger reaction The [address] [place] [address] Dementia The [address] [place] [address] FALL ON BLOODTHINNERS Active 08/06/ The 2018 [place] Discharge Diagnosis: [facility] Chronic renal 2017 7 insufficiency Discharge Diagnosis: [facility] Chronic CHF 2017 7 ABNORMAL LABS Active 05/30/ [facility] 2016 AFIB/DIZZY Active 11/02/ [facility] 2017 CP Active 12/27[facility] 2015 UNSTABLE ANGINA Active 05/16/ [address] 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 Heart failure Active Problem [facility] 2 Heart failure Active Problem [facility] Outpatient 5 Imaging [facility] CAD (<span Active Problem [place] ID="[id number]">Conf 7 Medical irmed</span>) [facility] Heart failure Active Problem [facility] Outpatient 7 Imaging [facility] HTN (<span Resolved Problem [place] [id number]">Conf 7 Medical irmed</span>) [facility] (<span Resolved Problem [place] ID="[id number]">Conf 7 Medical irmed</span>) [facility] Presence of automatic Active Problem Cardiovascular cardiac defibrillator [facility] Atherosclerotic heart Active Problem Cardiovascular disease of [place] [facility] coronary artery with other forms [...] Active Diagnosis Cardiovascular atherosclerosis of [facility] [place] vessel Diabetes mellitus type Active Problem Cardiovascular [...] 6 [facility]oc Unspecified dementia The without behavioral [address] [place] [address] disturbance Laceration without The foreign body of left [address] [place] [address] elbow, initial encounter Abrasion of scalp, The initial encounter [address] [place] [address] Abrasion of right The forearm, initial [address] [place] [address] encounter Striking against other The stationary object, [address] [place] [address] initial encounter Essential hypertension The [address] [place] [address] 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 [address] [place] [address] Personal history of The nicotine dependence [address] [place] [address] Encounter for The immunization [address] [place] [address] CAD (<span Active Problem [facility] ID="[id number]">Conf 8 Medical irmed</span>) [facility] Heart failure Active Problem [facility] Outpatient 8 Imaging [place],[facility] [place] HTN (<span Resolved Problem [facility] ID="[id number]">Conf 8 Medical irmed</span>) Center,[facility] [place] [facility] (<span Resolved Problem [facility] ID="[id number]">Conf 8 Medical irmed</span>) Center,[facility] [place] CHR SYSTOLIC HRT Active [facility] FAILURE ANGINA PECTORIS, Active [facility]IED [facility] ENCOUNTER FOR Active [facility] SCREENING FOR [facility] MALIGNANT NE NON-ST ELEVATION Active [facility] (NSTEMI) MYOCARDIAL INF CHEST PAIN, Active [facility] UNSPECIFIED UNSPECIFIED ATRIAL Active [facility] FIBRILLATION Medications Medication Details Route Status Patient Ordering Order Source Instructions Provider Date Saline Flush 10 mL, Inactive The 0.9% Route: IVP2017 [place] Drug Form: INJ, Dosing Weight 83.182, kg, PRN, PRN Line Flush, Start date: 08/06/17 1:02:00 BABY ATTENDANT, Duration: 30 day, Stop date: 09/05/17 2:01:00 CDTNotes: Same as: BD Posiflush Sterile Saline Flush 10 mL, Inactive 0.9% Route: IVP2016 [facility] Drug Form: INJ, Dosing Weight 83.182, kg, PRN, PRN Line Flush, Start date: 05/30/17 11:48:00 BABY ATTENDANT, Duration: 1 day, Stop date: 05/31/17 11:47:00 CSTNotes: (Same as: BD Posiflush) apixaban 2.5 mg 2.5 mg=1 Active 11/03[facility] oral tablet tab, PO, 2016 [facility] Q12H, # 60 tab, 0 Refill(s) 24 HR 25 mg=1 Active 11/03[facility] Metoprolol tab, PO, 2016 [facility] Tartrate 25 MG Q12H, # 60 Extended tab, 0 Release Tablet Refill(s) [Toprol] glimepiride 1 mg, No Longer Route: PO, Active 2016 [facility] Daily, Dosing Weight 85, kg, Start date: 11/03/16 9:00:00 CDT, Duration: 30 day, Stop date: 12/02/16 9:00:00 CDT Furosemide 40 40 mg, 1 Inactive MG Oral Tablet tab, Route: 2016 [facility] PO, Drug form: TAB, Daily, Dosing Weight 85, kg, Start date: 11/03/16 9:00:00 CDT, Duration: 30 day, Stop date: 12/02/16 9:00:00 CDTNotes: (Same as: Lasix) May cause GI upset. Give with food or milk. Losartan 50 mg, 1 Inactive 11/03[facility] tab, Route: 2016 [facility] PO, Drug form: TAB, Daily, Dosing Weight 85, kg, Start date: 11/03/16 9:00:00 CDT, Duration: 30 day, Stop date: 12/02/16 9:00:00 CDTNotes: (Same as: Cozaar) Glucotrol 5 mg, 1 Inactive tab, Route: 2016 [facility] PO, Drug form: TAB, Daily, Start date: 11/03/16 9:00:00 CDT, Duration: 30 day, Stop date: 12/02/16 9:00:00 CDTNotes: (Same as: Glucotrol) 30 min before meals. Eliquis 2.5 mg, 1 Inactive tab, Route: 2016 [facility] PO, Drug form: TAB, Q12H, Dosing Weight 83.636, kg, Start date: 11/03/16 9:00:00 CDT, Duration: 30 day, Stop date: 12/02/16 21:00:00 CDTNotes: Same as: Eliquis tamsulosin 0.4 mg, 1 Inactive cap, Route: 2016 [facility] PO, Drug form: CAP, Daily, Dosing Weight 85, kg, Start date: 11/03/16 9:00:00 CDT, Duration: 30 day, Stop date: 12/02/16 9:00:00 CDTNotes: (Same As: Flomax) "Do Not Crush" Aldactone 25 mg, 1 Inactive tab, Route: 2016 [facility] PO, Drug form: TAB, Daily, Dosing Weight 85, kg, Start date: 11/03/16 9:00:00 CDT, Duration: 30 day, Stop date: 12/02/16 9:00:00 CDTNotes: (Same As: Aldactone) Synthroid 200 Inactive microgram, 2016 [facility] 2 tab, Route: PO, Drug form: TAB, Q630AM, Dosing Weight 85, kg, Start date: 11/03/16 6:30:00 CDT, Duration: 30 day, Stop date: 12/02/16 6:30:00 CDTNotes: Take 1 hour before or 2 hours after meal; Enteral feeds may interefere with the absorption of this medication. (Same as:Levothro id, Synthroid) Insulin, 3 unit, No Longer Aspart, Human 0.03 mL, Active 2016 [facility] Route: SUB-Q, Drug form: SOLN, Bedtime, Dosing Weight 83.636, kg, PRN Blood Glucose Results, Start date: 11/02/16 21:49:00 CDT, Duration: 30 day, Stop date: 12/02/16 21:48:00 CDTNotes: Roll in palms of hands gently; Do not shake vigorously. (Same as: NovoLOG) "single patient use only" WASTE: F/P - Black; E - Neuro Kinetics Trash Bin Stable for 28 days at room temperature . Expires in days from ___Date Glucagon 1 mg, Inactive Route: IM, 2016 [facility] PRN, Dosing Weight 83.636, kg, PRN Blood Glucose Results, Start date: 11/02/16 21:49:00 CDT, Duration: 30 day, Stop date: 12/02/16 21:48:00 CDT Dextrose 50% 25 mL, Inactive Syringe Route: IVP, 2016 [facility] Dosing Weight 83.636, kg, PRN, PRN Blood Glucose Results, Start date: 11/02/16 21:49:00 CDT, Duration: 30 day, Stop date: 12/02/16 21:48:00 CDT Morphine 2 mg, 1 mL, No Longer Route: IVP, Active 2016 [facility] Drug form: INJ, Q4H, Dosing Weight 83.636, kg, PRN Pain Score 7-10, Start date: 11/02/16 21:45:00 CDT, Duration: 30 day, Stop date: 12/02/16 21:44:00 CDTNotes: (Same as:MORPhine Sulfate) Benadryl 25 mg, 1 Inactive tab, Route: 2016 [facility] PO, Drug form: TAB, ONCE, Dosing Weight 83.636, kg, PRN Insomnia, Start date: 11/02/16 21:43:00 CDT Lipitor 10 mg, 1 No Longer tab, Route: Active 2016 [facility] PO, Drug form: TAB, Bedtime, Dosing Weight 85, kg, Start date: 11/02/16 21:00:00 CDT, Duration: 30 day, Stop date: 12/01/16 21:00:00 CDTNotes: (Same As: Lipitor) Ranexa 1,000 mg, 2 No Longer tab, Route: Active 2016 [facility] PO, Drug form: TAB, Q12H, Dosing Weight 85, kg, Start date: 11/02/16 21:00:00 CDT, Duration: 30 day, Stop date: 12/02/16 9:00:00 CDTNotes: Same as Ranexa "Do Not Crush" Prilosec 20 mg, Inactive Route: PO, 2016 [facility] Drug form: DRC, Bedtime, Dosing Weight 85, kg, Start date: 11/02/16 21:00:00 CDT, Duration: 30 day, Stop date: 12/01/16 21:00:00 CDT 24 HR 25 mg, 1 No Longer Metoprolol tab, Route: Active 2016 [facility] Tartrate 25 MG PO, Drug Extended form: Release Tablet ERTAB, [Toprol] Q12H, Start date: 11/02/16 21:00:00 CDT, Duration: 30 day, Stop date: 12/02/16 9:00:00 CDTNotes: (Same as: Toprol XL) Do Not Crush Hydralazine 10 mg, 0.5 No Longer mL, Route: Active 2016 [facility] IVP, Drug form: INJ, Q4H, Dosing Weight 85, kg, PRN Hypertensio n, Start date: 11/02/16 16:38:00 CDT, Duration: 30 day, Stop date: 12/02/16 16:37:00 CDTNotes: (Same as: Apresoline) Push over 5 minutes clopidogrel 75 mg, 1 No Longer tab, Route: Active 2016 [facility] PO, Drug form: TAB, Daily, Dosing Weight 85, kg, Start date: 11/02/16 16:30:00 CDT, Duration: 30 day, Stop date: 12/02/16 9:00:00 CDTNotes: (Same As: Plavix) aspirin 81 mg 81 mg, 1 No Longer tablet, enteric tab, Route: Active 2016 [facility] coated PO, Drug form: ECTAB, Daily, Dosing Weight 85, kg, Start date: 11/02/16 16:30:00 CDT, Duration: 30 day, Stop date: 12/02/16 9:00:00 CDTNotes: Do not crush or chew. (Same As: Ecotrin) Protonix 40 mg, 1 No Longer tab, Route: Active 2016 [facility] PO, Drug form: ECTAB, Before Dinner, Start date: 11/02/16 16:30:00 CDT, Duration: 30 day, Stop date: 12/01/16 16:30:00 CDTNotes: Tablet should not be chewed or crushed. (Same as: Protonix) 24 HR 25 mg, 1 Inactive Metoprolol tab, Route: 2016 [facility] Tartrate 25 MG PO, Drug Extended form: Release Tablet ERTAB, [Toprol] Daily, Start date: 11/02/16 16:30:00 CDT, Duration: 30 day, Stop date: 12/02/16 9:00:00 CDTNotes: (Same as: Toprol XL) Do Not Crush 24 HR 12.5 mg, No Longer Metoprolol PO, Daily, Active 2016 [facility] Tartrate 25 MG 0 Refill(s) Extended Release Tablet [Toprol] Insulin, 5 unit, No Longer Aspart, Human 0.05 mL, Active 2016 [facility] Route: SUB-Q, Drug form: SOLN, TID-Before [...] mg, No Longer Route: IM, Active 2016 [facility] Drug form: PDR/INJ, PRN, Dosing Weight 85, kg, PRN Blood Glucose Results, Start date: 11/02/16 14:36:00 CDT, Duration: 30 day, Stop date: 12/02/16 14:35:00 CDT Dextrose 50% 25 gm, 50 No Longer Syringe mL, Route: Active 2016 [facility] IVP, Drug Form: INJ, Dosing Weight 85, kg, PRN, PRN Blood Glucose Results, Start date: 11/02/16 14:36:00 CDT, Duration: 30 day, Stop date: 12/02/16 14:35:00 CDT Metoprolol 5 mg, 5 mL, No Longer Route: IVP, Active 2016 [facility] Drug form: INJ, Q4H, Dosing Weight 85, kg, PRN Tachycardia , Start date: 11/02/16 14:28:00 CDT, Duration: 30 day, Stop date: 12/02/16 14:27:00 CDTNotes: (Same as: Lopressor) Push over 2 minutes Lasix 1 tab(s) orally Active 40 mg orally [place] 09/25/ Cardiovasc once a day 2016 [facility] atorvastatin 10 10 mg=1 Active MG Oral Tablet tab, PO, 2015 [facility] [Lipitor] Bedtime carvedilol 6.25 mg=2 Active 3.125 mg oral tab, PO, 2015 [facility] tablet BID, 0 Refill(s) Aspirin 81 MG 81 mg, 1 No Longer Enteric Coated tab, Route: Active 2015 [facility] Tablet PO, Drug form: ECTAB, Daily, Dosing Weight 83.455, kg, Start date: 12/30/15 9:00:00 CDT, Duration: 30 day, Stop date: 01/28/16 9:00:00 CDTNotes: Do not crush or chew. (Same As: Ecotrin) Furosemide 40 40 mg, 1 Inactive MG Oral Tablet tab, Route: 2015 [facility] PO, Drug form: TAB, Daily, Dosing Weight 83.455, kg, Start date: 12/30/15 9:00:00 CDT, Duration: 30 day, Stop date: 01/28/16 9:00:00 CDTNotes: (Same as: Lasix) May cause GI upset. Give with food or milk. Aspirin 325 MG 325 mg, 1 Inactive Enteric Coated tab, Route: 2015 [facility] Tablet PO, Drug form: TAB, Daily, Dosing Weight 83.455, kg, Start date: 12/30/15 9:00:00 CDT, Duration: 30 day, Stop date: 01/28/16 9:00:00 CDTNotes: Take with food. clopidogrel 75 mg, No Longer Route: PO, Active 2015 [facility] Drug form: TAB, Daily, Dosing Weight 83.455, kg, Start date: 12/30/15 9:00:00 CDT, Duration: 30 day, Stop date: 01/28/16 9:00:00 CDT Losartan 50 mg, 1 Inactive tab, Route: 2015 [facility] PO, Drug form: TAB, Daily, Dosing Weight 83.455, kg, Start date: 12/30/15 9:00:00 CDT, Duration: 30 day, Stop date: 01/28/16 9:00:00 CDTNotes: (Same as: Jorgezaar) Synthroid 200 Inactive microgram, 2015 [facility] 2 tab, Route: PO, Drug form: TAB, Daily, Dosing Weight 83.455, kg, Start date: 12/30/15 6:30:00 CDT, Duration: 30 day, Stop date: 01/28/16 6:30:00 CDTNotes: Take 1 hour before or 2 hours after meal; Enteral feeds may interefere with the absorption of this medication. (Same as:Levothro id, Synthroid) Coreg 6.25 mg, 2 No Longer tab, Route: Active 2015 [facility] PO, Drug form: TAB, BID, Dosing Weight 83.455, kg, Start date: 12/29/15 21:00:00 CDT, Duration: 30 day, Stop date: 01/28/16 9:00:00 CDTNotes: Give with food. (Same As: Coreg) Lipitor 40 mg, 1 Inactive tab, Route: 2015 [facility] PO, Drug form: TAB, Bedtime, Start date: 12/29/15 21:00:00 CDT, Duration: 30 day, Stop date: 01/27/16 21:00:00 CDTNotes: (Same as: Lipitor) rosuvastatin 10 rosuvastati No Longer mg tab n 10 mg Active 2015 [facility] tab, 20 mg, 2 tab, Drug form: MISC, Route: PO, Bedtime, 12/29/15 21:00:00 CDT, Duration: 30 day, Stop date: 01/27/16 21:00:00 CDTNotes: (Same as: Crestor) Crestor 20 mg, Inactive Route: PO, 2015 [facility] Drug form: TAB, Bedtime, Dosing Weight 83.455, kg, Start date: 12/29/15 21:00:00 CDT, Duration: 30 day, Stop date: 01/27/16 21:00:00 CDT Ranexa 1,000 mg, 2 No Longer tab, Route: Active 2015 [facility] PO, Drug form: TAB, BID, Dosing Weight 83.455, kg, Start date: 12/29/15 21:00:00 CDT, Duration: 30 day, Stop date: 01/28/16 9:00:00 CDTNotes: Same as Ranexa "Do Not Crush" Prilosec 20 mg, Inactive Route: PO, 2015 [facility] Drug form: DRC, Bedtime, Dosing Weight 83.455, kg, Start date: 12/29/15 21:00:00 CDT, Duration: 30 day, Stop date: 01/27/16 21:00:00 CDT tamsulosin 0.4 mg, 1 No Longer cap, Route: Active 2015 [facility] PO, Drug form: CAP, Daily, Dosing Weight 83.455, kg, Start date: 12/29/15 18:00:00 CDT, Duration: 30 day, Stop date: 01/27/16 18:00:00 CDTNotes: (Same As: Flomax) "Do Not Crush" Aldactone 25 mg, 1 No Longer tab, Route: Active 2015 [facility] PO, Drug form: TAB, BID, Dosing Weight 83.455, kg, Start date: 12/29/15 17:00:00 CDT, Duration: 30 day, Stop date: 01/28/16 9:00:00 CDTNotes: (Same As: Aldactone) glimepiride 1 mg, 0.5 No Longer tab, Route: Active 2015 [facility] PO, Drug form: TAB, BID-Meals, Dosing Weight 83.455, kg, Start date: 12/29/15 17:00:00 CDT, Duration: 30 day, Stop date: 01/28/16 8:00:00 CDTNotes: (Same as: Amaryl) Protonix 40 mg, 1 No Longer tab, Route: Active 2015 [facility] PO, Drug form: ECTAB, Before Dinner, Start date: 12/29/15 16:30:00 CDT, Duration: 30 day, Stop date: 01/27/16 16:30:00 CDTNotes: Tablet should not be chewed or crushed. (Same as: Protonix) Acetaminophen 1 tab, No Longer 325 MG / Route: PO, Active 2015 [facility] Hydrocodone Drug Form: Bitartrate 7.5 TAB, Dosing MG Oral Tablet Weight [[place] 7.5/325] 83.455, kg, Q6H, PRN Pain Score 4-6, Start date: 12/29/15 16:20:00 CDT, Duration: 30 day, Stop date: 01/28/16 16:19:00 CDTNotes: Same as [place] 325-7.5mg Do not exceed 4gm/day of acetaminoph en. Nitroglycerin 0.4 mg, 1 No Longer tab, Route: Active 2015 [facility] SL, Drug form: TAB, Q5Min, Dosing Weight 83.455, kg, PRN Chest Pain, Start date: 12/29/15 15:39:00 CDT, Duration: 30 day, Stop date: 01/28/16 15:38:00 CDTNotes: (Same as:Nitroqui ck, Nitrostat) "Do Not Crush" Sublingual tablet Famotidine 20 mg, 1 No Longer tab, Route: Active 2015 [facility] PO, Drug form: TAB, Q12H, Dosing Weight 83.455, kg, PRN Heartburn, Start date: 12/29/15 15:39:00 CDT, Duration: 30 day, Stop date: 01/28/16 15:38:00 CDTNotes: (Same as: Pepcid) Nitroglycerin 0.4 mg, Inactive Route: 2015 [facility] Transdermal , PRN, Dosing Weight 83.455, kg, PRN Abnormal Lab Result, Start date: 12/29/15 15:36:00 CDT, Duration: 30 day, Stop date: 01/28/16 15:35:00 CDT Insulin, 4 unit, No Longer Aspart, Human 0.04 mL, Active 2015 [facility] Route: SUB-Q, Drug form: SOLN, Bedtime, [...] mg, No Longer Route: IM, Active 2015 [facility] Drug form: PDR/INJ, PRN, Dosing Weight 83.455, kg, PRN Blood Glucose Results, Start date: 12/29/15 14:46:00 CDT, Duration: 30 day, Stop date: 01/28/16 14:45:00 CDT Dextrose 50% 25 gm, 50 No Longer Syringe mL, Route: Active 2015 [facility] IVP, Drug Form: INJ, Dosing Weight 83.455, kg, PRN, PRN Blood Glucose Results, Start date: 12/29/15 14:46:00 CDT, Duration: 30 day, Stop date: 01/28/16 14:45:00 CDT Acetaminophen 650 mg, 2 No Longer tab, Route: Active 2015 [facility] PO, Drug form: TAB, Q6H, Dosing Weight 83.455, kg, PRN Pain Score 1-3, Start date: 12/29/15 12:43:00 CDT, Duration: 30 day, Stop date: 01/28/16 12:42:00 CDTNotes: Do not exceed 4 gm/day. (Same as: Tylenol) Sodium Chloride 600 mL, Inactive 0.154 MEQ/ML Rate: 100 2015 [facility] Injectable ml/hr, Solution Infuse over: 6 hr, Route: IV, Dosing Weight 83.455 kg, Total Volume: 600, Priority: NOW, Start date: 12/29/15 9:38:00 CDT, Stop date: 12/29/15 21:37:00 CDT Plavix 75 mg, 1 No Longer tab, Route: Active 2015 [facility] PO, Drug form: TAB, Daily, Dosing Weight 83.455, kg, Priority: NOW, Start date: 12/29/15 9:09:00 CDT, Duration: 30 day, Stop date: 01/28/16 9:00:00 CDTNotes: (Same As: Plavix) Aspirin 325 MG 325 mg, 1 Inactive Enteric Coated tab, Route: 2016 [facility] Tablet PO, Daily, Dosing Weight 83.455, kg, Priority: NOW, Start date: 12/29/15 9:09:00 CDT, Duration: 30 day, Stop date: 01/28/16 9:00:00 CDT Streptococcus 0.5 mL, Inactive pneumoniae Route: IM, 2016 [facility] serotype 1 Drug Form: capsular INJ, Daily, antigen Start date: diphtheria 12/29/15 [id number] protein 9:00:00 conjugate CDT, vaccine / Duration: 1 Streptococcus doses or pneumoniae times, Stop serotype 14 date: capsular 12/29/15 antigen 9:00:00 diphtheria CDTNotes: [id number] protein Lightly conjugate roll vial vaccine / (DO NOT Streptococcus SHAKE) pneumoniae before serotype 18C administrat capsular ion. (Same antigen d as: Prevnar 13) glimepiride 1 mg, PO, Active BID-Meals, 2015 [facility] 0 Refill(s) Saline Flush 10 ml, No Longer 0.9% Route: IVP, Active 2015 [facility] Drug Form: INJ, Dosing Weight 83.455, kg, Q12H, Start date: 12/28/15 21:00:00 CDT, Duration: 30 day, Stop date: 01/27/16 9:00:00 CDTNotes: (Same as: BD Posiflush) Zofran 4 mg, 2 mL, No Longer Route: IVP, Active 2015 [facility] Drug form: INJ, Q8H, Dosing Weight 84.716, kg, PRN as needed for nausea/vomi ting, Start date: 12/28/15 19:06:00 CDT, Duration: 30 day, Stop date: 01/27/16 19:05:00 CDTNotes: (Same as: Zofran) MEDICATION WASTE Product Size: 4 mg Product Wasted: ___ mg Saline Flush 10 ml, No Longer 0.9% Route: IVP, Active 2015 [facility] Drug Form: INJ, Dosing Weight 83.455, kg, PRN, PRN Line Flush, Start date: 12/28/15 19:06:00 CDT, Duration: 30 day, Stop date: 01/27/16 19:05:00 CDTNotes: (Same as: BD Posiflush) Nitroglycerin 0.4 mg, 1 No Longer tab, Route: 2015 [facility] SL, Drug form: TAB, Q5Min, Dosing Weight 83.455, kg, PRN Chest Pain, Start date: 12/28/15 19:06:00 CDT, Duration: 3 doses or times, Stop date: Limited # of timesNotes: (Same as:Nitroqui ck, Nitrostat) "Do Not Crush" Sublingual tablet Heparin 30 Route: IVP, No Longer unit/kg Bolus PRN, 2,200 2015 [facility] (Heparin Dosing unit, 2.2 Weight) mL, Drug form: INJ, PRN, Heparin Protocol, Start date: 12/28/15 16:59:00 CDT Stop date: 01/27/16 16:58:00 CDT, 30 day heparin 500 mL, No Longer additive 25,000 Rate: 17.65 Active 2015 [facility] unit [12 ml/hr, unit/kg/hr] + Infuse Premix Diluent over: 28.3 Dextrose 5% 500 hr, Route: mL IV, Dosing Weight 73.55 kg, Total Volume: 500 mL, Start date: 12/28/15 16:59:00 CDT, Duration: 30 day, Stop date: 01/27/16 16:58:00 CDT Heparin 60 Route: IVP, No Longer unit/kg Bolus PRN, 4,400 Active 2015 [facility] (Heparin Dosing unit, 4.4 Weight) mL, Drug form: INJ, PRN, Heparin Protocol, Start date: 12/28/15 16:59:00 CDT Stop date: 01/27/16 16:58:00 CDT, 30 day Heparin - one 4,000 unit, Inactive time bolus for 4 mL, 2015 [facility] Route: IV, Drug form: INJ, ONCE, Dosing Weight 84.716, kg, Priority: STAT, Start date: 12/28/15 16:59:00 CDT, Stop date: 12/28/15 16:59:00 CDT Aspirin 325 mg, 1 Inactive tab, Route: 2015 [facility] PO, Drug form: TAB, ONCE, Dosing Weight 84.716, kg, Priority: STAT, Start date: 12/28/15 16:29:00 CDT, Stop date: 12/28/15 16:29:00 CDTNotes: Take with food. Aspirin 81 MG 81 mg=1 Active [facility] Enteric Coated tab, PO, 2014 [facility] Tablet Daily, 0 Center Refill(s) clopidogrel 75 75 mg=1 Active [facility] mg oral tablet tab, PO, 2014 [...] es: (Same as: Mag-Ox 400) Magnesium oxide [id number] elemental magnesium Dose=____mg magnesium oxide (___mg elemental magnesium) Hydralazine 10 mg, 0.5 Inactive [place] mL, Route: 2014 [facility] IV, Drug Center form: INJ, ONCE, Dosing Weight 85, kg, Start date: 05/20/15 17:33:00, Stop date: 05/20/15 17:33:00Not es: (Same as: Apresoline) Push over 5 minutes potassium 20 mEq, 100 Inactive [place] chloride mL, Route: 2014 [facility] IVPB, Drug Center form: INJ, ONCE, Dosing Weight 85, kg, Start date: 05/20/15 15:01:00, Stop date: 05/20/15 15:01:00, Central LineNote s: (Same as: KCL) Infuse no faster than 10 mEq/hr if given peripherall y. Potassium 40 mEq, 30 Inactive [place] Chloride 1.33 mL, Route: 2014 [facility] MEQ/ML [...] Lactulose 667 10 gm, 15 No Longer [place] MG/ML Oral mL, Route: Active 2014 [facility] Solution PO, Drug Center Form: SYRP, Dosing Weight 85, kg, QID, PRN as needed for constipatio n, Start date: 05/19/15 23:08:00, Duration: 30 day, Stop date: 06/18/15 23:07:00Not es: (Same as:[place] c) normal saline 1,000 mL, No Longer [place] 0.9% IV 1,000 Rate: 75 Active 2014 [facility] mL ml/hr, Center Infuse over: 13.3 hr, Route: IV, Dosing Weight 85 kg, Total Volume: 1,000, Start date: 05/19/15 23:08:00, Duration: 30 day, Stop date: 06/18/15 23:07:00 Plavix 300 mg, 1 Inactive [place] tab, Route: 2014 [facility] PO, Drug Center form: TAB, ONCE, Dosing Weight 85, kg, Priority: Within 4 hours, Start date: 05/19/15 12:39:00, Duration: 1 doses or times, Stop date: 05/19/15 12:39:00Not es: ( Same as: Plavix) Miralax 17 gm, 1 No Longer [place] pkt, Route: Active 2014 [facility] PO, Drug Center form: PWDR, Daily, Dosing Weight 85, kg, Priority: NOW, Start date: 05/18/15 16:37:00, Duration: 30 day, Stop date: 06/17/15 9:00:00Note s: Dissolve in 8 oz of water or juice. (Same as: Miralax) sennosides, INTERMEDIATE 8.6 mg, 1 No Longer [place] tab, Route: Active 2014 [facility] PO, Drug Center Form: TAB, Dosing Weight 85, kg, Daily, NOW, Start date: 05/18/15 16:37:00, Duration: 30 day, Stop date: 06/17/15 9:00:00Note s: (Same as: Senokot) Docusate 100 mg, Inactive [place] Route: PO, 2014 [facility] Drug form: Center CAP, Daily, Dosing Weight 85, kg, Priority: NOW, Start date: 05/18/15 16:37:00, Duration: 30 day, Stop date: 06/17/15 9:00:00 Lipitor 40 mg, 2 No Longer [place] tab, Route: Active 2014 [facility] PO, Drug Center form: TAB, Bedtime, Start date: 05/17/15 21:00:00, Duration: 30 day, Stop date: 06/15/15 21:00:00Not es: (Same As: Lipitor) Crestor 20 mg, Inactive [place] Route: PO, 2014 [facility] Drug form: [place] TAB, Bedtime, Dosing Weight 85, kg, Start date: 05/17/15 21:00:00, Duration: 30 day, Stop date: 06/15/15 21:00:00 Prilosec 20 mg, Inactive [place] Route: PO2014 [facility] Drug form: [place] DRC, Bedtime, Dosing Weight 85, kg, Start date: 05/17/15 21:00:00, Duration: 30 day, Stop date: 06/15/15 21:00:00 Docusate Sodium 100 mg, 1 No Longer [place] 100 MG Oral cap, Route: Active 2014 Medical Capsule PO, Drug Center [Colace] form: CAP, BID, Dosing Weight 85, kg, Start date: 05/17/15 17:00:00, Duration: 30 day, Stop date: 06/16/15 9:00:00Note s: (Same as: Colace) (Do Not Crush) Protonix 40 mg, 1 No Longer [place] tab, Route: Active 2014 [facility] PO, Drug Center form: ECTAB, Before Dinner, Start date: 05/17/15 16:30:00, Duration: 30 day, Stop date: 06/15/15 16:30:00Not es: Tablet should not be chewed or crushed. (Same as: Protonix) Aspirin 81 mg, 1 No Longer [place] tab, Route: Active 2014 [facility] PO, Drug Center form: ECTAB, Daily, Dosing Weight 85, kg, Start date: 05/17/15 9:00:00, Duration: 30 day, Stop date: 06/15/15 9:00:00Note s: Do not crush or chew. (Same As: Ecotrin) Furosemide 40 40 mg, 1 No Longer [place] MG Oral Tablet tab, Route: Active 2014 Medical PO, Drug Center form: TAB, Daily, Dosing Weight 85, kg, Start date: 05/17/15 9:00:00, Duration: 30 day, Stop date: 06/15/15 9:00:00Note s: (Same as: Lasix) May cause GI upset. Give with food or milk. Aldactone 25 mg, 1 No Longer [place] tab, Route: Active 2014 Medical PO, Drug Center form: TAB, BID, Dosing Weight 85, kg, Start date: 05/17/15 9:00:00, Duration: 30 day, Stop date: 06/15/15 17:00:00Not es: (Same As: Aldactone) Ranexa 1,000 mg, 2 No Longer [place] tab, Route: Active 2014 Medical PO, Drug Center form: TAB, BID, Dosing Weight 85, kg, Start date: 05/17/15 9:00:00, Duration: 30 day, Stop date: 06/15/15 17:00:00Not es: Same as Ranexa "Do Not Crush" Losartan 50 mg, 1 No Longer [place] tab, Route: Active 2014 Medical PO, Drug Center form: TAB, Daily, Dosing Weight 85, kg, Start date: 05/17/15 9:00:00, Duration: 30 day, Stop date: 06/15/15 9:00:00Note s: (Same as: Cozaar) Coreg 6.25 mg, 1 No Longer [place] tab, Route: Active 2014 Medical PO, Drug Center form: TAB, BID, Dosing Weight 85, kg, Start date: 05/17/15 9:00:00, Duration: 30 day, Stop date: 06/15/15 17:00:00Not es: Give with food. (Same As: Coreg) tamsulosin 0.4 mg, 1 No Longer [place] cap, Route: Active 2014 Medical PO, Drug Center form: CAP, After Breakfast, Dosing Weight 85, kg, Start date: 05/17/15 8:30:00, Duration: 30 day, Stop date: 06/15/15 8:30:00Note s: (Same As: Flomax) "Do Not Crush" Synthroid 200 No Longer [place] microgram, Active 2014 Medical 1 tab, Center Route: PO, Drug form: TAB, Q630AM, Dosing Weight 85, kg, Start date: 05/17/15 6:30:00, Duration: 30 day, Stop date: 06/15/15 6:30:00Note s: Take 1 hour before or 2 hours after meal; Enteral feeds may interefere with the absorption of this medication. (Same as: Levothroid) heparin sodium, Route: IVP, No Longer [place] porcine 1000 PRN, 4,400 Active 2014 Medical UNT/ML unit, 4.4 Center Injectable mL, Drug Solution form: INJ, PRN, Heparin Protocol, Start date: 05/17/15 1:38:00 Stop date: 06/16/15 1:37:00, 30 day heparin 500 mL, No Longer [place] additive 25,000 Rate: 17.68 Active 2014 Medical unit [12 ml/hr, Center unit/kg/hr] + Infuse Premix Diluent over: 28.3 Dextrose 5% 500 hr, Route: mL IVPB, Dosing Weight 73.66 kg, Total Volume: 500 mL, Start date: 05/17/15 1:38:00, Duration: 30 day, Stop date: 06/16/15 1:37:00 Plavix 75 mg, 1 Inactive tab, Route: 2014 [facility] PO, Drug form: TAB, Daily, Dosing Weight 83.2, kg, Start date: 05/16/15 9:00:00, Duration: 30 day, Stop date: 06/14/15 9:00:00Note s: (Same As: Plavix) Plavix 600 mg, 2 Inactive tab, Route: 2014 [facility] PO, Drug form: TAB, ONCE, Dosing Weight 83.2, kg, Priority: NOW, Start date: 05/15/15 10:37:00, Duration: 1 doses or times, Stop date: 05/15/15 10:37:00Not es: ( Same as: Plavix) Insulin, 10 unit, No Longer Aspart, Human 0.1 mL, Active 2014 [facility] Route: SUB-Q, Drug form: SOLN, TID-Before [...] No Longer Syringe mL, Route: Active 2014 [facility] IVP, Drug Form: INJ, Dosing Weight 83.2, kg, PRN, PRN Blood Glucose Results, Start date: 05/14/15 11:54:00, Duration: 30 day, Stop date: 06/13/15 11:53:00 Glucagon 1 mg, No Longer Route: IM, Active 2014 [facility] Drug form: PDR/INJ, PRN, Dosing Weight 83.2, kg, PRN Blood Glucose Results, Start date: 05/14/15 11:54:00, Duration: 30 day, Stop date: 06/13/15 11:53:00 Magnesium 2 gm, 50 Inactive Sulfate mL, Route: 2014 [facility] IVPB, Drug form: INJ, ONCE, Dosing Weight 83.2, kg, Start date: 05/14/15 8:24:00, Duration: 2 hr, Stop date: 05/14/15 8:24:00 Coreg 3.125 mg, Inactive Route: PO, 2014 [facility] Drug form: TAB, Q12H, Dosing Weight 83.2, kg, hold sbp Crestor 20 mg, Inactive Route: PO, 2014 [facility] Drug form: TAB, Bedtime, Dosing Weight 83.2, kg, Start date: 05/13/15 21:00:00, Duration: 30 day, Stop date: 06/11/15 21:00:00 Lipitor 40 mg, 1 No Longer tab, Route: Active 2014 [facility] PO, Drug form: TAB, Bedtime, Start date: 05/13/15 21:00:00, Duration: 30 day, Stop date: 06/11/15 21:00:00Not es: (Same as: Lipitor) heparin sodium, 4,000 unit, Inactive porcine 5000 4 mL, 2014 UNT/ML Route: IV, Injectable Drug form: Solution INJ, ONCE, Dosing Weight 83.2, kg, Start date: 05/13/15 14:00:00, Stop date: 05/13/15 14:00:00 Lasix 20 mg, 2 Inactive mL, Route: 2014 [facility] IV, Drug form: INJ, ONCE, Dosing Weight 83.2, kg, Start date: 05/13/15 12:00:00, Stop date: 05/13/15 12:00:00Not es: (Same as: Lasix) Morphine 2 mg, 1 mL, No Longer Route: IVP, Active 2014 [facility] Drug form: INJ, Q4H, Dosing Weight 83.2, kg, PRN Pain Score 7-10, Start date: 05/13/15 10:19:00, Duration: 30 day, Stop date: 06/12/15 10:18:00Not es: (Same as:MORPhine Sulfate) Sodium Chloride 250 mL, 250 Inactive 0.154 MEQ/ML ml/hr, 2014 [facility] Injectable Infuse Solution Over: 1 hr, Route: IV, 250, Drug form: INJ, ONCE, Dosing Weight 83.2 kg, Start date: 05/13/15 9:58:00, Duration: 1 doses or times, Stop date: 05/13/15 9:58:00 Flomax 0.4 mg, 1 No Longer cap, Route: Active 2014 [facility] PO, Drug form: CAP, Daily, Dosing Weight 84.659, kg, Start date: 05/13/15 9:00:00, Duration: 30 day, Stop date: 06/11/15 9:00:00Note s: (Same As: Flomax) "Do Not Crush" aspirin 325 mg 325 mg, 1 No Longer tablet tab, Route: Active 2014 [facility] PO, Drug form: TAB, Daily, Start date: 05/13/15 9:00:00, Duration: 30 day, Stop date: 06/11/15 9:00:00Note s: Take with food. Thyroxine 112 No Longer microgram, Active 2014 [facility] 1 tab, Route: PO, Drug form: TAB, Q630AM, Dosing Weight 84.659, kg, Start date: 05/13/15 6:30:00, Duration: 30 day, Stop date: 06/11/15 6:30:00Note s: Take 1 hour before or 2 hours after meal; Enteral feeds may interefere with the absorption of this medication. (Same as:Levothro id) Ranexa 1,000 mg, 2 No Longer tab, Route: Active 2014 [facility] PO, Drug form: TAB, BID, Dosing Weight 84.659, kg, Start date: 05/12/15 22:00:00, Duration: 30 day, Stop date: 06/11/15 21:00:00Not es: Same as Ranexa "Do Not Crush" Coreg 6.25 mg, 2 No Longer tab, Route: Active 2014 [facility] PO, Drug form: TAB, BID, Dosing Weight 84.659, kg, Start date: 05/12/15 21:00:00, Duration: 30 day, Stop date: 06/11/15 9:00:00Note s: Give with food. (Same As: Coreg) Lipitor 20 mg, 2 No Longer tab, Route: Active 2014 [facility] PO, Drug form: TAB, Bedtime, Start [...] mg, No Longer Route: IM, Active 2014 [facility] Drug form: PDR/INJ, PRN, Dosing Weight 83.2, kg, PRN Blood Glucose Results, Start date: 05/12/15 20:52:00, Duration: 30 day, Stop date: 06/11/15 20:51:00 Dextrose 50% 25 gm, 50 No Longer Syringe mL, Route: Active 2014 [facility] IVP, Drug Form: INJ, Dosing Weight 83.2, kg, PRN, PRN Blood Glucose Results, Start date: 05/12/15 20:52:00, Duration: 30 day, Stop date: 06/11/15 20:51:00 Trazodone 50 mg, 1 No Longer tab, Route: Active 2014 [facility] PO, Drug form: TAB, Bedtime, Dosing Weight 83.2, kg, PRN Sleep, Start date: 05/12/15 20:43:00, Duration: 30 day, Stop date: 06/11/15 20:42:00, ..Notes: (Same As: Coltonyrel) Nitroglycerin 0.4 mg, 1 No Longer tab, Route: Active 2014 [facility] SL, Drug form: TAB, Q5Min, Dosing Weight 83.2, kg, PRN Chest Pain, Start date: 05/12/15 20:37:00, Duration: 3 doses or times, Stop date: Limited # of timesNotes: (Same as:Nitroqui ck, Nitrostat) "Do Not Crush" Sublingual tablet Nitroglycerin 0.4 mg, On Hold Transdermal 2014 [facility] , PRN, 0 Refill(s) Rosuvastatin 20 [...] mg, Inactive Oral Tablet Route: PO, 2014 [facility] Drug form: TAB, Daily, Dosing Weight 84.659, kg, Priority: STAT, Start date: 05/12/15 17:33:00, Duration: 30 day, Stop date: 06/11/15 9:00:00 heparin sodium, Route: IVP, No Longer porcine 1000 PRN, 4,300 Active 2014 [facility] UNT/ML unit, 4.3 Injectable mL, Drug Solution form: INJ, PRN, Heparin Protocol, Start date: 05/12/15 16:57:00 Stop date: 06/11/15 16:56:00, 30 day heparin 500 mL, No Longer additive 25,000 Rate: 17.31 Active 2014 [facility] unit [12 ml/hr, unit/kg/hr] + Infuse Premix Diluent over: 28.9 Dextrose 5% 500 hr, Route: mL IV, Dosing Weight 72.14 kg, Total Volume: 500 mL, Start date: 05/12/15 16:57:00, Duration: 30 day, Stop date: 06/11/15 16:56:00 heparin sodium, 4,000 unit, Inactive porcine 5000 4 mL, 2014 [facility] UNT/ML Route: IV, Injectable Drug form: Solution INJ, ONCE, Dosing Weight 81.364, kg, Priority: STAT, Start date: 05/12/15 16:57:00, Stop date: 05/12/15 16:57:00 Aspirin 81 MG 324 mg, Inactive Chewable Tablet Route: PO, 2014 [facility] Drug form: CHEWTAB, ONCE, Dosing Weight 81.364, kg, Priority: STAT, Start date: 05/12/15 16:22:00, Stop date: 05/12/15 16:22:00 Aspirin 325 mg, Inactive Route: 2014 [facility] CHEW, Drug form: CHEWTAB, ONCE, Dosing Weight 81.364, kg, Priority: STAT, Start date: 05/12/15 16:20:00, Stop date: 05/12/15 16:20:00 Aspirin 324 mg, 4 Inactive tab, Route: 2014 [facility] PO, Drug form: CHEWTAB, ONCE, Dosing Weight 81.364, kg, Priority: STAT, Start date: 05/12/15 14:36:00, Stop date: 05/12/15 14:36:00Not es: Take with food. Saline Flush 10 mL, No Longer 0.9% Route: IVP, Active 2014 [facility] Drug Form: INJ, Dosing Weight 81.364, [...] Ranexa 1,000 mg, 2 PO No Longer [facility] tab, Route: Active 2011 [facility] PO, Drug form: TAB, Q12H, Start date: 06/28/11 21:00:00, Duration: 30 day, Stop date: 07/28/11 9:00:00 Lipitor 10 mg, 1 PO No Longer [facility] tab, Route: Active 2011 [facility] PO, Drug form: TAB, Bedtime, Start date: 06/28/11 21:00:00, Duration: 30 day, Stop date: 07/27/11 21:00:00 lisinopril 10 mg, 1 PO No Longer [facility] tab, Route: Active 2011 [facility] PO, Drug form: TAB, Daily, Start date: 06/28/11 17:00:00, Duration: 30 day, Stop date: 07/28/11 9:00:00 glimepiride 2 mg, 1 PO No Longer [facility] tab, Route: Active 2011 [facility] PO, Drug form: TAB, BID, Start date: 06/28/11 17:00:00, Duration: 30 day, Stop date: 07/28/11 9:00:00 Lasix 20 mg, 1 PO No Longer [facility] tab, Route: Active 2011 [facility] PO, Drug form: TAB, BID, Start date: 06/28/11 17:00:00, Duration: 30 day, Stop date: 07/28/11 9:00:00 spironolactone 25 mg, 1 PO No Longer [facility] tab, Route: Active 2011 [facility] PO, Drug form: TAB, Daily, Start date: 06/28/11 17:00:00, Duration: 30 day, Stop date: 07/28/11 9:00:00 Flomax 0.4 mg, 1 PO No Longer [facility] cap, Route: Active 2011 [facility] PO, Drug form: CAP, Daily, Start date: 06/28/11 17:00:00, Duration: 30 day, Stop date: 07/28/11 9:00:00 aspirin 81 mg 81 mg, 1 PO No Longer [facility] tablet, enteric tab, Route: Active 2011 [facility] coated PO, Drug form: ECTAB, Daily, Start date: 06/28/11 17:00:00, Duration: 30 day, Stop date: 07/28/11 9:00:00 acetaminophen-t 1 tab, PO No Longer [facility] ramadol 325 Route: PO, Active 2011 [facility] mg-37.5 mg oral Drug Form: tablet TAB, Daily, Start date: 06/28/11 17:00:00, Duration: 30 day, Stop date: 07/28/11 9:00:00 cefazolin 2 gm, IVPB No Longer [facility] Route: Active 2011 [facility] IVPB, Q8H, Start date: 06/28/11 16:00:00, Duration: 2 doses or times, Stop date: 06/29/11 0:00:00 Sodium Chloride 10 mL, IVP No Longer [facility] 0.9% IV Route: IVP, Active 2011 [facility] Start date: 06/28/11 16:00:00, Duration: 30 day, Stop date: 07/28/11 8:00:00 Coreg 25 mg, 1 PO No Longer [facility] tab, Route: Active 2011 [facility] PO, Drug form: TAB, Q12H, Start date: 06/28/11 15:00:00, Duration: 30 day, Stop date: 07/28/11 9:00:00 nitroglycerin 0.4 mg, 1 SL No Longer [facility] 0.4 mg tab, Route: Active 2011 [facility] sublingual SL, Drug tablet form: TAB, PRN, PRN Chest Pain, Start date: 06/28/11 13:33:00, Duration: 30 day, Stop date: 07/28/11 13:32:00 acetaminophen 500 mg, 1 PO No Longer [facility] tab, Route: Active 2011 [facility] PO, Drug form: TAB, Q4H, PRN Pain, Start date: 06/28/11 11:28:00, Duration: 30 day, Stop date: 07/28/11 11:27:00 acetaminophen-h 2 tab, PO No Longer [facility] ydrocodone 325 Route: PO, Active 2011 [facility] mg-5 mg oral Drug Form: tablet TAB, Q4H, PRN Pain, Start date: 06/28/11 11:28:00, Duration: 30 day, Stop date: 07/28/11 11:27:00 morphine 2 mg, 1 mL, IV No Longer [facility] Sulfate Route: IV, Active 2011 [facility] Drug form: INJ, Q2H, PRN Severe Pain, Start date: 06/28/11 11:28:00, Duration: 30 day, Stop date: 07/28/11 11:27:00 Xanax 0.25 mg, 1 PO No Longer [facility] tab, Route: Active 2011 [facility] PO, Drug form: TAB, Q8H, PRN Anxiety, Start date: 06/28/11 11:28:00, Duration: 30 day, Stop date: 07/28/11 11:27:00 Zofran 4 mg, 2 mL, IVP No Longer [facility] Route: IVP, Active 2011 [facility] Drug form: INJ, Q8H, PRN Nausea & Vomiting, Start date: 06/28/11 11:28:00, Duration: 30 day, Stop date: 07/28/11 11:27:00 Restoril 15 mg, 1 PO No Longer [facility] cap, Route: Active 2011 [facility] PO, Drug form: CAP, Bedtime, PRN Insomnia, Start date: 06/28/11 11:28:00, Duration: 30 day, Stop date: 07/28/11 11:27:00 Sodium Chloride 10 mL, IVP No Longer [facility] 0.9% IV Route: IVP, Active 2011 [facility] PRN, Line Flush, Start date: 06/28/11 11:26:00, Duration: 30 day, Stop date: 07/28/11 11:25:00 multivitamin 1 tab, PO No Longer [facility] Route: PO, Active 2011 [facility] Drug Form: TAB, [id number], Start date: 06/28/11 6:00:00, Duration: 4 doses or times, Stop date: 06/29/11 18:00:00 cefazolin 1 gm, IVPB No Longer [facility] Route: Active 2011 [facility] IVPB, PRE OP, Start date: 06/28/11 5:00:00, Duration: 12 hr, Stop date: 06/28/11 16:59:00 Sodium Chloride 1,000 mL, IV No Longer [facility] 0.45% IV 1,000 Rate: 75 Active 2011 [facility] mL ml/hr, Infuse over: 13.3 hr, Route: IV, Total Volume: 1,000, Start date: 06/28/11 5:00:00, Duration: 24 hr, Stop date: 06/29/11 4:59:00 lidocaine-prilo 1 appl, TOP No Longer [facility] freddie topical Route: TOP, Active 2011 [facility] ONCALL, Drug form: CRM, Start date: 06/28/11 5:00:00, Duration: 1 doses or times Valium 5 mg, 1 PO No Longer [facility] tab, Route: Active 2011 [facility] PO, Drug form: TAB, ONCALL, Start date: 06/28/11 5:00:00, Duration: 1 doses or times Benadryl 50 mg, 2 PO No Longer [facility] tab, Route: Active 2011 [facility] PO, Drug form: TAB, ONCALL, Start [...] [facility] NKDA Assertion Drug Active [facility] Immunizations Immunization Date Site Status Last Comments Source Given Updated diphtheria/pertu Right completed [place] [facility], 8 deltoid [place] acel/tetanus adult pneumococcal Right completed [place] 13-valent 6 deltoid [place], vaccine [place] Results Order Name Results Value Reference Date Interpretation Comments Source Range URINE AND UA <=1.0 0.1 - 1.0 08/06 The STOOL Urobilinogen mg/dL [place] URINE AND UA RBC 1 /HPF 0 - 2 08/06 The STOOL [place] URINE AND UA Mucus Few /LPF None Seen 08/06 The STOOL /LPF [place] URINE AND UA Color Yellow Yellow 08/06 The [place] *NA* (08/06/17 2:20 AM) URINE AND UA Turbidity Clear Clear 08/06 The [place] (08/06/17 2:20 AM) URINE AND UA Spec Grav 1.006 <=1.030 08/06 The [place] URINE AND UA Sq Epi Occasional Few /LPF 08/06 The STOOL /LPF [place] URINE AND UA WBC 1 /HPF 0 - 5 08/06 The [place] URINE AND UA Nitrite Negative Negative 08/06 The STOOL [place] (08/06/17 2:20 AM) URINE AND UA Leuk Est Negative Negative 08/06 The [place] (08/06/17 2:20 AM) URINE AND UA pH 5.0 5.0 - 8.0 08/06 The [place] URINE AND UA Ketones Negative Negative 08/06 The STOOL mg/dL mg/dL [place] URINE AND UA Bili Negative Negative 08/06 The [place] *NA* (08/06/17 2:20 AM) URINE AND UA Protein Negative Negative 08/06 The STOOL mg/dL mg/dL [place] URINE AND UA Glucose Negative Negative 08/06 The STOOL mg/dL mg/dL [place] URINE AND UA Blood Negative Negative 08/06 The [place] (08/06/17 2:20 AM) CHEM PANEL A/G Ratio 1.1 0.7 - 1.6 08/06 [facility] CHEM PANEL AGAP 13.0 meq/L 10.0 - 02/27 The 20.0 [place] CHEM PANEL Globulin 3.2 g/dL 2.7 - 4.2 08/06 The [place] CHEM PANEL B/C Ratio 21 6 - 25 08/06 The [place] CHEM PANEL CO2 25 meq/L 24 - 32 08/06 The [place] CHEM PANEL Chloride Lvl 102 meq/L 95 - 109 08/06 The [place] CHEM PANEL Potassium 4.0 meq/L 3.5 - 5.1 08/06 The Lvl /2017 [place] CHEM PANEL Sodium Lvl 136 meq/L 135 - 145 08/06 The [facility] CHEM PANEL BUN 38 mg/dL 7 - 22 08/06 The [place] CHEM PANEL Glucose Lvl 246 mg/dL 70 - 99 08/06 The [place] CHEM PANEL Creatinine 1.81 mg/dL 0.50 - 08/06 The Lvl 1.40 [place] CHEM PANEL Alk Phos 134 unit/L 39 - 136 08/06 The [place] CHEM PANEL Bili Total 0.8 mg/dL 0.2 - 1.3 08/06 The [place] CHEM PANEL ALT 29 unit/L 0 - 65 08/06 The [place] CHEM PANEL Albumin Lvl 3.5 g/dL 3.5 - 5.0 08/06 The [place] CHEM PANEL AST 28 unit/L 0 - 37 08/06 The [place] CHEM PANEL Total 6.7 g/dL 6.4 - 8.4 08/06 The Protein [facility] CHEM PANEL Calcium Lvl 8.5 mg/dL 8.5 - 10.5 08/06 The [facility] CHEM PANEL eGFR 34 08/06 Result Comment: [...] is not recommended in the following populations: [place] 3m2 Individuals with unstable creatinine concentrations, including [...] 23.8 pg 27.0 - 08/06 The 31.0 [place] HEMATOLOGY RDW 18.4 % 11.5 - 08/06 The 14.5 [place] HEMATOLOGY MPV 9.3 fL 7.4 - 10.4 08/06 The [place] HEMATOLOGY Platelet 135 K/CMM 133 - 450 08/06 The [place] HEMATOLOGY MCHC 31.9 g/dL 32.0 - 08/06 The 36.0 [place] HEMATOLOGY Hct 30.4 % 42.0 - 08/06 The 54.0 [place] HEMATOLOGY MCV 74.5 fL 80.0 - 08/06 The 94.0 [place] HEMATOLOGY RBC 4.08 M/CMM 4.70 - 08/06 The 6.10 [place] HEMATOLOGY Hgb 9.7 g/dL 14.0 - 08/06 The 18.0 [place] HEMATOLOGY WBC 4.8 K/CMM 3.7 - 10.4 08/06 The [place] HEMATOLOGY PTT 30.0 s 22.9 - 08/06 The 35.8 [place] HEMATOLOGY PT 14.6 s 12.0 - 08/06 The 14. [place] HEMATOLOGY INR 1.14 0.85 - 08/06 The 1. [place] HEMATOLOGY Monocytes # 0.4 K/CMM 0.0 - 0.8 08/06 [place] HEMATOLOGY Eosinophils 0.2 K/CMM 0.0 - 0.5 08/06 The # [facility] HEMATOLOGY Microcyte 1+ None Seen 08/06 [facility] *ABN* (08/06/17 1:09 AM) HEMATOLOGY Basophils 0.5 % 0.0 - 1.0 08/06 [facility] HEMATOLOGY Segs-Bands # 3.4 K/CMM 1.5 - 8.1 08/06 The [place] HEMATOLOGY Lymphocytes 0.8 K/CMM 1.0 - 5.5 08/06 The # /2017 [place] HEMATOLOGY Lymphocytes 15.8 % 20.0 - 08/06 The 40.0 [place] HEMATOLOGY Monocytes 8.5 % 2.0 - 12.0 08/06 [place] HEMATOLOGY Segs 70.6 % 45.0 - 08/06 The 75.0 [place] HEMATOLOGY Eosinophils 4.6 % 0.0 - 4.0 08/06 [place] Brain wo Brain wo CT HEAD WITHOUT CONTRAST 08/[address] /2017 - [place] CT Clinical Indication: - head trauma, plavix. [...] 1358 pg/mL <=100 05/30 ENZYMES pg/mL /2016 [facility] CARDIAC Troponin-I 0.02 ng/mL 0.00 - 05/30 [facility] 0.40 [facility] ELECTROLYT AGAP 10.8 meq/L 10.0 - 05/30 ES 20.0 [facility] ELECTROLYT A/G Ratio 1.4 0.7 - 1.6 05/30 ES /2016 [facility] ELECTROLYT B/C Ratio 15 6 - [...] is not recommended in the following populations: [facility] 3m2 Individuals with unstable creatinine concentrations, [...] mg/dL 7 - 22 05/30 ES /2016 [facility] HEMATOLOGY PT 14.7 s 12.0 - 05/30 MH 14.7 [facility] HEMATOLOGY INR 1.15 0.85 - 05/30 MH 1.17 [facility] HEMATOLOGY RDW 16.9 % 11.5 - 05/30 MH 14. [facility] HEMATOLOGY WBC 3.6 K/CMM 3.7 - 10.4 05/30 [facility] HEMATOLOGY RBC 3.64 M/CMM 4.70 - 05/30 MH 6.10 [facility] HEMATOLOGY MCH 26.1 pg 27.0 - 05/30 MH 31.0 [facility] HEMATOLOGY MCV 81.6 fL 80.0 - 05/30 MH 94.0 [facility] HEMATOLOGY Hct 29.7 % 42.0 - 05/30 MH 54.0 [facility] HEMATOLOGY MCHC 31.9 g/dL 32.0 - 05/30 MH 36.0 [facility] HEMATOLOGY Hgb 9.5 g/dL 14.0 - 05/30 18.0 [facility] HEMATOLOGY Platelet 98 K/CMM 133 - 450 05/30 [facility] HEMATOLOGY MPV 9.3 fL 7.4 - 10.4 05/30 /2016 [facility] HEMATOLOGY Eosinophils 0.1 K/CMM 0.0 - 0.5 05/30 MH # /2016 [facility] HEMATOLOGY Eosinophils 1.8 % 0.0 - 4.0 05/30 [facility] HEMATOLOGY Monocytes 9.8 % 2.0 - 12.0 05/30 [facility] HEMATOLOGY Monocytes # 0.4 K/CMM 0.0 - 0.8 05/30 [facility] HEMATOLOGY Segs-Bands # 2.3 K/CMM 1.5 - 8.1 05/30 [facility] HEMATOLOGY Basophils 0.4 % 0.0 - 1.0 05/30 [facility] HEMATOLOGY Lymphocytes 24.4 % 20.0 - 05/30 40.0 [facility] HEMATOLOGY Lymphocytes 0.9 K/CMM 1.0 - 5.5 05/30 # /2016 [facility] HEMATOLOGY Segs 63.6 % 45.0 - 05/30 75.0 [facility] Chest Chest 1view Clinical Indication: - chf; 05/30 - 1view DX /2016 - [facility] Comparison: December 28, 2015 Read by: [...] placement. 2. No focal infiltrates . SL: [id number] CHEM PANEL eGFR 41 11/03 Result Comment: [...] is not recommended in the following populations: [place] [id number] Individuals with unstable creatinine concentrations, including patients [...] CHD Risk 3.03 4.00 - 11/03 7.30 [facility] CARDIAC Troponin-I 0.04 ng/mL 0.00 - 11/03 [facility] 0.40 [facility] CARDIAC Total CK 68 unit/L 11/03 ENZYMES /2016 [facility] CARDIAC Total CK 65 unit/L 12 - 11/03 ENZYMES /2017 [facility] CARDIAC Troponin-I 0.04 ng/mL 0.00 - 11/03 EN[facility]YM[facility] 0.40 [facility] CARDIAC BNP 626 pg/mL <=100 11/02 ENZYMES pg/mL /2016 [facility] CARDIAC Troponin-I 0.04 ng/mL 0.00 - 11/02 ENZYMES 0.40 /2016 [facility] CARDIAC Total CK 64 unit/L 11/02 ENZYMES /2016 [facility] CARDIAC Total CK 64 unit/L 11/02 ENZYMES /2016 [facility] CARDIAC Troponin-I 0.05 ng/mL 0.00 - [...] is not recommended in the following populations: [place] [id number] Individuals with unstable creatinine concentrations, including patients [...] Lvl 320 mg/dL 70 - 99 11/02 [facility] HEMATOLOGY Lymphocytes 0.9 K/CMM 1.0 - 5.5 11/02 # [facility] HEMATOLOGY Segs-Bands # 2.4 K/CMM 1.5 - 8.1 11/02 [facility] HEMATOLOGY Eosinophils 0.1 K/CMM 0.0 - 0.5 11/02 MH # /2016 [facility] HEMATOLOGY Monocytes # 0.3 K/CMM 0.0 - 0.8 11/02 [facility] HEMATOLOGY Segs 66.4 % 45.0 - 11/02 MH 75.0 [facility] HEMATOLOGY Lymphocytes 24.2 % 20.0 - 11/02 MH 40.0 /2016 [facility] HEMATOLOGY Monocytes 7.1 % 2.0 - 12.0 11/02 [facility] HEMATOLOGY Eosinophils 1.9 % 0.0 - 4.0 11/02 [facility] HEMATOLOGY Basophils 0.4 % 0.0 - 1.0 11/02 [facility] HEMATOLOGY Platelet 97 K/CMM 133 - 450 11/02 [facility] HEMATOLOGY MPV 9.8 fL 7.4 - 10.4 11/02 [facility] HEMATOLOGY RDW 13.8 % 11.5 - 11/02 MH 14.5 [facility] HEMATOLOGY WBC 3.6 K/CMM 3.7 - 10.4 11/02 [facility] HEMATOLOGY RBC 3.45 M/CMM 4.70 - 11/02 MH 6.10 [facility] HEMATOLOGY Hgb 10.5 g/dL 14.0 - 11/02 MH 18.0 [facility] HEMATOLOGY Hct 30.8 % 42.0 - 11/02 MH 54.0 [facility] HEMATOLOGY MCV 89.3 fL 80.0 - 11/02 MH 94.0 [facility] HEMATOLOGY MCHC 34.2 g/dL 32.0 - 11/02 MH 36.0 [facility] HEMATOLOGY MCH 30.6 pg 27.0 - 11/02 MH 31.0 [facility] Hgb A1C 7.4 % <=5.6 % 11/02 CHEMISTRY [facility] CHEM PANEL eGFR 52 12/29 Result [...] is not recommended in the following populations: [facility] 3m2 Individuals with unstable creatinine concentrations, [...] Lvl 149 mg/dL 70 - 99 12/29 [facility] CHEM PANEL Potassium 4.1 meq/L 3.5 - 5.1 12/29 Lv [facility] CHEM PANEL Chloride Lvl 108 meq/L 95 - 109 12/29 [facility] CHEM PANEL CO2 30 meq/L 24 - 32 12/29 [facility] CHEM PANEL Calcium Lvl 8.6 mg/dL 8.5 - 10.5 12/29 [facility] CHEM PANEL BUN 19 mg/dL 7 - 22 12/29 [facility] CHEM PANEL Creatinine 1.28 mg/dL 0.50 - 12/29 Lvl 1.40 [facility] CHEM PANEL Sodium Lvl 145 meq/L 135 - 145 12/29 [facility] CHEM PANEL AGAP 11.1 meq/L 10.0 - 12/29 MH 20.0 [facility] CHEM PANEL Magnesium 2.1 mg/dL 1.8 - 2.4 12/29 Lv [facility] HEMATOLOGY MCV 93.2 fL 80.0 - 12/29 MH 94.0 [facility] HEMATOLOGY Platelet 106 K/CMM 133 - 450 12/29 [facility] HEMATOLOGY MPV 9.3 fL 7.4 - 10.4 12/29 [facility] HEMATOLOGY MCH 31.2 pg 27.0 - 12/29 MH 31.0 [facility] HEMATOLOGY RDW 14.7 % 11.5 - 12/29 MH 14.5 [facility] HEMATOLOGY MCHC 33.5 g/dL 32.0 - 12/29 MH 36.0 [facility] HEMATOLOGY WBC 4.1 K/CMM 3.7 - 10.4 12/29 [facility] HEMATOLOGY RBC 3.63 M/CMM 4.70 - 12/29 MH 6.10 /2015 [facility] HEMATOLOGY Hct 33.8 % 42.0 - 12/29 MH 54.0 [facility] HEMATOLOGY Hgb 11.3 g/dL 14.0 - 12/29 MH 18.0 /2015 [facility] HEMATOLOGY Eosinophils 0.2 K/CMM 0.0 - 0.5 12/29 MH # /2015 [facility] HEMATOLOGY Segs-Bands # 2.4 K/CMM 1.5 - 8.1 12/29 [facility] HEMATOLOGY Monocytes # 0.4 K/CMM 0.0 - 0.8 12/29 [facility] HEMATOLOGY Lymphocytes 1.1 K/CMM 1.0 - 5.5 12/29 MH # /2015 [facility] HEMATOLOGY Basophils 0.4 % 0.0 - 1.0 12/29 [facility] HEMATOLOGY Eosinophils 4.2 % 0.0 - 4.0 12/29 /2015 [facility] HEMATOLOGY Segs 58.6 % 45.0 - 12/29 MH 75.0 /2015 [facility] HEMATOLOGY Monocytes 10.3 % 2.0 - 12.0 12/29 [facility] HEMATOLOGY Lymphocytes 26.5 % 20.0 - 12/29 40.0 /2015 [facility] HEMATOLOGY POC 128 s 12/28 MH [facility] [employer]otting Time HEMATOLOGY PTT 75.4 s 22.9 - 12/28 MH 35.8 /2015 [facility] CHEM PANEL Magnesium 2.0 mg/dL 1.8 - 2.4 12/28 Lvl [facility] CHEM PANEL Glucose Lvl 116 mg/dL 70 - 99 12/28 [facility] CHEM PANEL Potassium 3.8 meq/L 3.5 - 5.1 12/28 Lvl [facility] CHEM PANEL AGAP 13.8 meq/L 10.0 [...] is not recommended in the following populations: [facility] 3m2 Individuals with unstable creatinine concentrations, [...] 105 K/CMM 133 - 450 12/28 /2015 [facility] HEMATOLOGY RDW 14.6 % 11.5 - 12/28 14.5 [facility] HEMATOLOGY MCH 30.7 pg 27.0 - 12/28 MH 31.0 [facility] HEMATOLOGY MCHC 33.2 g/dL 32.0 - 12/28 MH 36.0 /2015 [facility] HEMATOLOGY MPV 9.5 fL 7.4 - 10.4 12/28 /2015 [facility] HEMATOLOGY Hct 33.6 % 42.0 - 12/28 MH 54.0 /2015 [facility] HEMATOLOGY Hgb 11.2 g/dL 14.0 - 12/28 18.0 /2015 [facility] HEMATOLOGY RBC 3.63 M/CMM 4.70 - 12/28 MH 6.10 /2015 [facility] HEMATOLOGY MCV 92.5 fL 80.0 - 12/28 94.0 /2015 [facility] HEMATOLOGY WBC 4.3 K/CMM 3.7 - 10.4 12/28 [facility] HEMATOLOGY PTT 47.5 s 22.9 - 12/28 35.8 /2015 [facility] LIPIDS VLDL 45 12/28 [facility] LIPIDS LDL 69 mg/dL <=99 mg/dL 12/28 (Calculated) [facility] LIPIDS HDL 31 mg/dL >=61 mg/dL 12/28 [facility] LIPIDS CHD Risk 4.68 4.00 - 12/28 MH 7.30 /2015 [facility] LIPIDS Trig 225 mg/dL <=149 12/28 mg/dL /2015 [facility] LIPIDS Chol 145 mg/dL <=199 12/28 MH mg/dL /2015 [facility] CARDIAC Troponin-I 0.47 ng/mL 0.00 - 12/28 ENZYMES 0.40 /2016 [facility] CARDIAC Total CK 157 unit/L 12 - 191 12/28 MH ENZYMES /2016 [facility] CARDIAC CK MB Index 3.8 0.0 - 2.5 12/28 MH ENZYMES /2016 [facility] CARDIAC CK MB 5.9 ng/mL 0.5 - 3.6 12/28 MH ENZYMES /2016 [facility] HEMATOLOGY PTT 63.8 s 22.9 - 12/28 MH 35.8 /2016 [facility] CARDIAC Troponin-I 0.71 ng/mL 0.00 - 12/28 Result MH ENZYMES 0.40 Comment: [facility] Critical Result(s) called to Ghazal Michael RN at 12/28/2015 20:26 by LS. Read back OK. CARDIAC Total CK 169 unit/L 12 - 191 12/28 MH ENZYMES /2015 [facility] CARDIAC CK MB Index 3.8 0.0 - 2.5 12/28 MH ENZYMES /2016 [facility] CARDIAC CK MB 6.5 ng/mL 0.5 - 3.6 12/28 MH ENZYMES /2015 [facility] CARDIAC CK MB Index 4.9 0.0 - 2.5 12/27 MH ENZYMES /2015 [facility] CARDIAC CK MB 8.8 ng/mL 0.5 - 3.6 12/27 MH ENZYMES /2016 [facility] CARDIAC Troponin-I 0.69 ng/mL 0.00 - 12/27 Result ENZYMES 0.40 Comment: [facility] Critical Result(s) called to Gris Caba RN at 12/28/2015 16:14 by LS. Read back OK. CARDIAC Total CK 180 unit/L 12 - 191 12/27 MH ENZYMES /2015 [facility] CARDIAC BNP 402 pg/mL <=100 12/27 ENZYMES pg/mL /2015 [facility] CHEM PANEL Lipase Lvl 73 unit/L 73 - 393 12/27 [facility] CHEM PANEL A/G Ratio 1.1 0.7 - 1.6 12/27 MH /2015 [facility] CHEM PANEL Globulin 3.3 g/dL 2.0 - 4.0 12/27 [facility] CHEM PANEL B/C Ratio 14 6 - 25 12/27 [facility] CHEM PANEL AGAP 9.6 meq/L 10.0 [...] is not recommended in the following populations: [facility] 3m2 Individuals with unstable creatinine concentrations, [...] Phos 83 unit/L 39 - 136 12/27 [facility] CHEM PANEL AST 30 unit/L 0 - 37 12/27 [facility] CHEM PANEL ALT 29 unit/L 0 - 65 12/27 [facility] CHEM PANEL Bili Total 0.9 mg/dL 0.2 - 1.3 12/27 [facility] CHEM PANEL CO2 29 meq/L 24 - 32 12/27 [facility] CHEM PANEL Chloride Lvl 104 meq/L 95 - 109 12/27 [facility] CHEM PANEL Calcium Lvl 9.1 mg/dL 8.5 - 10.5 12/27 [facility] CHEM PANEL Albumin Lvl 3.6 g/dL 3.5 - 5.0 12/27 [facility] CHEM PANEL Total 6.9 g/dL 6.4 - 8.4 12/27 [facility] CHEM PANEL Creatinine 1.50 mg/dL 0.50 - 12/27 MH Lvl 1.40 /2015 [facility] CHEM PANEL Sodium Lvl 139 meq/L 135 - 145 12/27 [facility] CHEM PANEL Potassium 3.6 meq/L 3.5 - 5.1 12/27 MH Lvl /2015 [facility] CHEM PANEL Glucose Lvl 178 mg/dL 70 - 99 12/27 [facility] CHEM PANEL BUN 21 mg/dL 7 - 22 12/27 [facility] HEMATOLOGY Eosinophils 0.1 K/CMM 0.0 - 0.5 / MH # /2016 [facility] HEMATOLOGY Monocytes # 0.3 K/CMM 0.0 - 0.8 12/27 [facility] HEMATOLOGY Segs 66.2 % 45.0 - 07 MH 75.0 /2016 [facility] HEMATOLOGY Lymphocytes 0.9 K/CMM 1.0 - 5.5 / MH # /2016 [facility] HEMATOLOGY Basophils 0.6 % 0.0 - 1.0 12/27 MH /2015 [facility] HEMATOLOGY Segs-Bands # 2.8 K/CMM 1.5 - 8.1 12/27 MH /2015 [facility] HEMATOLOGY Monocytes 7.9 % 2.0 - 12.0 12/27 /2015 [facility] HEMATOLOGY Eosinophils 3.2 % 0.0 - 4.0 12/27 MH /2015 [facility] HEMATOLOGY Lymphocytes 22.1 % 20.0 - 12/27 MH 40.0 /2015 [facility] HEMATOLOGY INR 1.04 0.85 - 12/27 MH 1.17 /2016 [facility] HEMATOLOGY PT 13.9 s 12.0 - 12/27 14.7 /2015 [facility] HEMATOLOGY Hct 36.1 % 42.0 - 12/27 54.0 /2015 [facility] Hgb 12.0 g/dL 14.0 - 12/27 18.0 /2015 [facility] HEMATOLOGY RBC 3.89 M/CMM 4.70 - 12/27 6.10 /2015 [facility] HEMATOLOGY MPV 9.4 fL 7.4 - 10.4 12/27 /2015 [facility] HEMATOLOGY Platelet 115 K/CMM 133 - 450 12/27 /2015 [facility] HEMATOLOGY RDW 14.7 % 11.5 - 12/27 14.5 /2015 [facility] HEMATOLOGY MCHC 33.1 g/dL 32.0 - 12/27 36.0 /2015 [facility] HEMATOLOGY MCV 92.8 fL 80.0 - 12/27 94.0 /2015 [facility] HEMATOLOGY MCH 30.7 pg 27.0 - 12/27 31.0 /2015 [facility] HEMATOLOGY WBC 4.2 K/CMM 3.7 - 10.4 12/27 /2015 [facility] Chest Chest 1view Clinical Indication: Left-sided chest pain 12/27 - 1view DX DX /2015 - [facility] Comparison: 05/12/2015 Read by: Edna Schrader [...] IMPRESSION: No acute infiltrates or effusions. SL: [id number] CHEM PANEL Phosphorus 3.7 mg/dL 2.5 - 4.5 05/22 [facility] CHEM PANEL Magnesium 2.1 mg/dL 1.8 - 2.4 05/22 [facility] CHEM PANEL eGFR 49 05/22 Result Comment: The eGFR is calculated using the CKD-EPI formula. In most young, healthy individuals the eGFR will be >90 mL/ min/1.73m2. The eGFR declines with age. An eGFR of 60-89 may be normal in [facility] mL/min/1.7 some populations, particularly the elderly, for whom the CKD-EPI formula has not been extensively validated. Use of the eGFR is not recommended in the following populations: [address] Individuals with unstable creatinine concentrations, including [...] Lvl 8.2 mg/dL 8.5 - 10.5 05/22 [facility] CHEM PANEL Creatinine 1.35 mg/dL 0.50 - 05/22 [facility] Lvl 1.40 [facility] CHEM PANEL Chloride Lvl 108 meq/L 95 - 109 05/22 [facility] CHEM PANEL CO2 26 meq/L 24 - 32 05/22 [facility] CHEM PANEL Sodium Lvl 141 meq/L 135 - 145 05/22 [facility] CHEM PANEL Potassium 4.5 meq/L 3.5 - 5.1 05/22 [facility] CHEM PANEL Glucose Lvl 110 mg/dL 70 - 99 05/[address] CHEM PANEL BUN 22 mg/dL 7 - 22 05/22 [facility] CHEM PANEL AGAP 11.5 meq/L 10.0 - 05/22 [facility] 20.0 /2014 [facility] HEMATOLOGY RDW 13.1 % 11.5 - 12 [place] 14.5 /2014 [facility] HEMATOLOGY MCHC 32.5 g/dL 32.0 - 12 [place] 36.0 /2014 [facility] HEMATOLOGY MCH 32.3 pg 27.0 - 05/22 31.0 /2014 [facility] HEMATOLOGY MCV 99.6 fL 80.0 - 05/22 94.0 /2014 [facility] HEMATOLOGY Hct 31.2 % 42.0 - 05/22 [place] 54.0 /2014 [facility] HEMATOLOGY MPV 9.4 fL 7.4 - 10.4 05/22 /2014 [facility] HEMATOLOGY Platelet 127 K/CMM 133 - 450 05/22 [facility] HEMATOLOGY Hgb 10.1 g/dL 14.0 - 12 [facility] 18.0 /2014 [facility] HEMATOLOGY RBC 3.14 M/CMM 4.70 - 05/22 6.10 /2014 [facility] HEMATOLOGY WBC 4.4 K/CMM 3.7 - 10.4 05/22 /2014 [facility] HEMATOLOGY Eosinophils 0.2 K/CMM 0.0 - 0.5 05/22 [facility] # /2014 [facility] HEMATOLOGY Monocytes # 0.5 K/CMM 0.0 - 0.8 05/22 /2014 [facility] HEMATOLOGY Lymphocytes 19.4 % 20.0 - 12 40.0 /2014 [facility] HEMATOLOGY Segs 64.5 % 45.0 - 05/22 75.0 /2014 [facility] HEMATOLOGY Lymphocytes 0.9 K/CMM 1.0 - 5.5 05/22 /2014 [facility] HEMATOLOGY Segs-Bands # 2.8 K/CMM 1.5 - 8.1 05/22 [facility] HEMATOLOGY Basophils 0.5 % 0.0 - 1.0 05/22 [facility] HEMATOLOGY Eosinophils 3.9 % 0.0 - 4.0 05/22 [facility] HEMATOLOGY Monocytes 11.7 % 2.0 - 12.0 05/22 2014 [facility] HVI VAS HVI VAS INDICATION: groin hematoma 05/22 - [place] Arterial/b Arterial/byp /2014 - [facility] ypass ass Lower This report was dictated by a [employer]/ Fellow. I have personally reviewed the images [...] fistula. CARDIAC Troponin-T 0.014 0.000 - 05/21 [facility] ENZYMES ng/mL 0.100 /2014 [facility] CARDIAC Troponin-I 0.04 ng/mL 0.00 - 05/21 [facility] ENZYMES 0.40 /2014 [facility] CARDIAC Total CK 34 unit/L 12 - 191 05/21 [facility] ENZYMES /2014 [facility] CHEM PANEL eGFR 63 05/21 Result Comment: The eGFR is calculated using the CKD-EPI formula. In most young, healthy individuals the eGFR will be >90 mL/ min/1.73m2. The eGFR declines with age. An eGFR of 60-89 may be normal in [facility] mL/min/1.7 /2014 some populations, particularly the elderly, for whom the CKD-EPI formula has not been extensively validated. Use of the eGFR is not recommended in the following populations: [address] Individuals with unstable creatinine concentrations, including [...] 15.1 meq/L 10.0 - 05/21 [place] 20.0 [facility] CHEM PANEL Calcium Lvl 8.5 mg/dL 8.5 - 10.5 05/21 [facility] CHEM PANEL CO2 20 meq/L 24 - 32 12 [facility] CHEM PANEL Creatinine 1.09 mg/dL 0.50 - 12 [facility] Lvl 1.40 [facility] CHEM PANEL BUN 17 mg/dL 7 - 22 05/21 [facility] CHEM PANEL Potassium 4.1 meq/L 3.5 - 5.1 05/21 [facility] CHEM PANEL Sodium Lvl 140 meq/L 135 - 145 05/21 [facility] CHEM PANEL Glucose Lvl 177 mg/dL 70 - 99 05/21 [facility] CHEM PANEL Chloride Lvl 109 meq/L 95 - 109 05/21 2014 [facility] CHEM PANEL Phosphorus 4.2 mg/dL 2.5 - 4.5 05/21 [facility] CHEM PANEL Magnesium 2.2 mg/dL 1.8 - 2.4 05/21 [facility] /2014 [facility] HEMATOLOGY Macrocyte 1+ None [facility]en [facility] 12[facility]13 AM[facility] HEMATOLOGY Lymphocytes 0.6 K/CMM 1.0 - 5.5 05/21 [facility] # /2014 [facility] HEMATOLOGY Basophils 0.4 % 0.0 - 1.0 05/21 [facility] HEMATOLOGY Monocytes # 0.4 K/CMM 0.0 - 0.8 05/21 [facility] [address] [place] [address] HEMATOLOGY Lymphocytes 15.6 % 20.0 - 05/21 [facility] 40.0 [facility] HEMATOLOGY Segs-Bands # 3.0 K/CMM 1.5 - 8.1 05/21 [facility] HEMATOLOGY Monocytes 8.8 % 2.0 - 12.0 12 [facility] HEMATOLOGY Eosinophils 0.7 % 0.0 - 4.0 05/21 [facility] HEMATOLOGY Segs 74.5 % 45.0 - 12 [facility] 75.0 [facility] HEMATOLOGY INR 1.11 0.85 - 12 [facility] 1.17 [facility] HEMATOLOGY PTT 30.1 s 22.9 - 12/ [place] 35.8 /2014 [facility] HEMATOLOGY PT 14.6 s 12.0 - 12 [facility] 14.7 [facility] HEMATOLOGY Platelet 117 K/CMM 133 - 450 05/21 [facility] HEMATOLOGY MPV 9.6 fL 7.4 - 10.4 05/21 [facility] HEMATOLOGY MCH 33.1 pg 27.0 - 05/21 31.0 [facility] HEMATOLOGY MCHC 32.9 g/dL 32.0 - 05/21 36.0 [facility] HEMATOLOGY RDW 13.2 % 11.5 - 05/21 14.5 [facility] HEMATOLOGY Hgb 10.2 g/dL 14.0 - 05/21 [place] 18.0 [facility] HEMATOLOGY Hct 30.9 % 42.0 - 05/21 [place] 54.0 [facility] HEMATOLOGY MCV 100.6 fL 80.0 - 05/21 [facility] 94.0 [facility] HEMATOLOGY RBC 3.07 M/CMM 4.70 - 05/21 6.10 [facility] HEMATOLOGY WBC 4.0 K/CMM 3.7 - 10.4 05/21 [facility] PARATHYROI Ca Norm WB 1.13 1.05 - 05/21 [facility] D PROFILE mMol/L 1. [facility] PARATHYROI Ca Ion WB 1.09 1.05 - 05/21 [facility] D PROFILE mMol/L 1. [facility] CHEM PANEL Lactic Acid 0.7 mMol/L 0.5 - 2.2 05/20 [facility] CHEM PANEL Magnesium 1.4 mg/dL 1.8 - 2.4 05/20 [facility] CHEM PANEL Phosphorus 3.5 mg/dL 2.5 - 4.5 05/20 [facility] CHEM PANEL eGFR 78 05/20 Result Comment: The eGFR is calculated using the CKD-EPI formula. In most young, healthy individuals the eGFR will be >90 mL/ min/1.73m2. The eGFR declines with age. An eGFR of 60-89 may be normal in [facility] mL/min/1. some populations, particularly the elderly, for whom the CKD-EPI formula has not been extensively validated. Use of the eGFR is not recommended in the following populations: [place] [address] [facility] Individuals with unstable creatinine concentrations, including [...] 14.7 meq/L 10.0 - 12 [place] 20.0 [facility] CHEM PANEL Glucose Lvl 108 mg/dL 70 - 99 05/20 [facility] CHEM PANEL Sodium Lvl 145 meq/L 135 - 145 05/20 [facility] CHEM PANEL Potassium 2.7 meq/L 3.5 - 5.1 05/20 Result [facility] Comment: [facility] Result(s) called to HANK TANNER at 05/20/2015 14:22_ by CN_. Read back OK. CHEM PANEL BUN 12 mg/dL 7 - 22 05/20 /2014 [facility] CHEM PANEL Creatinine 0.92 mg/dL 0.50 - 05/20 [facility] Lvl 1.40 [facility] CHEM PANEL Chloride Lvl 113 meq/L 95 - 109 05/20 [facility] CHEM PANEL CO2 20 meq/L 24 - 32 05/20 [facility] HEMATOLOGY PTT >200 22.9 - 05/20 Result [facility] seconds 35.8 /2015 Comment: [facility] Result(s) called to Benigno Jennings at 05/20/2015 14:[address] Read back OK. HEMATOLOGY PT 16.3 s 12.0 - 12 [place] 14.7 [facility] HEMATOLOGY INR 1.28 0.85 - 05/20 [place] 1.17 [facility] HEMATOLOGY Platelet 108 K/CMM 133 - 450 05/20 [facility] HEMATOLOGY MPV 9.8 fL 7.4 - 10.4 05/20 [facility] HEMATOLOGY MCV 100.5 fL 80.0 - 05/20 [place] 94.0 /2014 [facility] HEMATOLOGY RDW 13.3 % 11.5 - 12 [place] 14.5 [facility] HEMATOLOGY MCHC 32.9 g/dL 32.0 - 12 [place] 36.0 /2014 [facility] HEMATOLOGY MCH 33.1 pg 27.0 - 05/20 31.0 [facility] HEMATOLOGY RBC 2.95 M/CMM 4.70 - 05/20 6.10 /2014 [facility] HEMATOLOGY Hct 29.7 % 42.0 - 05/20 [facility] 54.0 /2014 [facility] HEMATOLOGY Hgb 9.8 g/dL 14.0 - 05/20 18.0 /2014 [facility] HEMATOLOGY WBC 3.6 K/CMM 3.7 - 10.4 12 /2014 [facility] HEMATOLOGY Monocytes 11.3 % 2.0 - 12.0 05/20 /2014 [facility] HEMATOLOGY Segs 60.4 % 45.0 - 05/20 [facility] 75.0 /2014 [facility] HEMATOLOGY Lymphocytes 23.3 % 20.0 - 05/20 [facility] 40.0 /2014 [facility] HEMATOLOGY Segs-Bands # 2.2 K/CMM 1.5 - 8.1 05/20 [facility] HEMATOLOGY Lymphocytes 0.9 K/CMM 1.0 - 5.5 05/20 [facility] # /2014 [facility] HEMATOLOGY Basophils 0.3 % 0.0 - 1.0 05/20 [facility] HEMATOLOGY Eosinophils 4.7 % 0.0 - 4.0 05/20 [facility] HEMATOLOGY Monocytes # 0.4 K/CMM 0.0 - 0.8 05/[address] HEMATOLOGY Macrocyte 1+ None Seen 05/[facility] (05[facility]20[facility]15 1:48 PM) HEMATOLOGY Eosinophils 0.2 K/CMM 0.0 - 0.5 05/20 [facility] # /2014 [facility] PARATHYROI Ca Ion WB 1.12 1.05 - 05/20 [facility] D PROFILE mMol/L 1. [facility] PARATHYROI Ca Norm WB 1.09 1.05 - 05/20 [facility] D PROFILE mMol/L 1. [facility] CHEM PANEL Globulin 3.0 g/dL 2.0 - 4.0 05/20 [facility] /[address] [place] [address] CHEM PANEL B/C Ratio 15 6 - 25 05/20 [facility] CHEM PANEL Bili Total 0.8 mg/dL 0.2 - 1.3 05/20 [facility] CHEM PANEL A/G Ratio 1.1 0.7 - 1.6 05/20 [facility] CHEM PANEL Alk Phos 73 unit/L 39 - 136 05/20 [facility] CHEM PANEL Albumin Lvl 3.2 g/dL 3.5 - 5.0 05/20 [facility] CHEM PANEL ALT 30 unit/L 0 - 65 05/20 [facility] CHEM PANEL AST 20 unit/L 0 - 37 05/20 [facility] CHEM PANEL Total 6.2 g/dL 6.4 - 8.4 05/20 [facility] HEMATOLOGY INR 1.06 0.85 - 05/20 [place] 1.17 [facility] HEMATOLOGY PT 14.1 s 12.0 - 05/20 [place] 14.7 [facility] HEMATOLOGY PTT 67.4 s 22.9 - 05/20 [place] 35. [facility] HEMATOLOGY Eosinophils 0.2 K/CMM 0.0 - 0.5 05/20 [facility] # [facility] CHEM PANEL AST 27 unit/L 0 - 37 05/17 [facility] CHEM PANEL ALT 30 unit/L 0 - 65 05/17 [facility] CHEM PANEL Albumin Lvl 3.0 g/dL 3.5 - 5.0 05/[address] [place] [address] CHEM PANEL Alk Phos 65 unit/L 39 - 136 05/17 [facility] CHEM PANEL B/C Ratio 11 6 - 25 05/[address] [place] [address] CHEM PANEL Bili Total 0.8 mg/dL 0.2 - 1.3 05/[address] [place] [address] CHEM PANEL Total 5.6 g/dL 6.4 - 8.4 05/17 [facility] CHEM PANEL A/G Ratio 1.2 0.7 - 1.6 05/[address] [place] [address] CHEM PANEL Globulin 2.6 g/dL 2.0 - 4.0 05/[address] HEMATOLOGY PTT 58.0 s 22.9 - 07 35.8 [facility] CHEM PANEL Phosphorus 3.0 mg/dL 2.5 - 4.5 05/15 [facility] CHEM PANEL Magnesium 1.8 mg/dL 1.8 - 2.4 05/15 Lvl /2014 [facility] ELECTROLYT AGAP 8.9 meq/L 10.0 - 05/15 [facility] 20.0 /2014 [facility] ELECTROLYT eGFR 59 05/15 Result Comment: The eGFR is calculated using the CKD-EPI formula. In most young, healthy individuals the eGFR will be >90 mL/ min/1.73m2. The eGFR declines with age. An eGFR of 60-89 may be normal in [facility] mL/min/1.7 /2014 some populations, particularly the elderly, for whom the CKD-EPI formula has not been extensively validated. Use of the eGFR is not recommended in the following populations: [facility] 3m2 Individuals with unstable creatinine concentrations, [...] mg/dL 8.5 - 10.5 05/15 ES /2014 [facility] ELECTROLYT CO2 27 meq/L 24 - 32 05/15 ES /2014 [facility] ELECTROLYT Sodium Lvl 141 meq/L 135 - 145 05/15 ES [facility] ELECTROLYT Potassium 3.9 meq/L 3.5 - 5.1 05/15 [facility] Lvl /2014 [facility] ELECTROLYT Chloride Lvl 109 meq/L 95 - 109 05/15 [facility] /2014 [facility] ELECTROLYT Glucose Lvl 117 mg/dL 70 - 99 05/15 [facility] /2014 [facility] ELECTROLYT Creatinine 1.15 mg/dL 0.50 - 05/15 [facility] Lvl 1.40 /2014 [facility] ELECTROLYT BUN 14 mg/dL 7 - 22 05/15 ES /2014 [facility] HEMATOLOGY Segs-Bands # 2.7 K/CMM 1.5 - 8.1 05/15 [facility] HEMATOLOGY Lymphocytes 1.2 K/CMM 1.0 - 5.5 05/15 # /2015 [facility] HEMATOLOGY Eosinophils 0.2 K/CMM 0.0 - 0.5 05/15 # /2015 [facility] HEMATOLOGY Monocytes # 0.5 K/CMM 0.0 - 0.8 05/15 [facility] HEMATOLOGY Macrocyte 1+ None Seen 05/15 [facility] *ABN* (05/15/15 4:30 AM) HEMATOLOGY Monocytes 11.6 % 2.0 - 12.0 05/15 [facility] HEMATOLOGY Lymphocytes 25.4 % 20.0 - 05/15 [facility] 40.0 /2014 [facility] HEMATOLOGY Segs 57.5 % 45.0 - 12 [facility] 75.0 /2014 [facility] HEMATOLOGY Basophils 0.5 % 0.0 - 1.0 05/15 [facility] HEMATOLOGY Eosinophils 5.0 % 0.0 - 4.0 05/15 [facility] HEMATOLOGY PTT 56.4 s 22.9 - 05/15 MH 35.8 [facility] HEMATOLOGY MCH 33.4 pg 27.0 - 05/15 31.0 [facility] HEMATOLOGY Hct 32.9 % 42.0 - 05/15 54.0 /2014 [facility] HEMATOLOGY MCV 99.6 fL 80.0 - 05/15 94.0 /2014 [facility] HEMATOLOGY Platelet 104 K/CMM 133 - 450 05/15 [facility] HEMATOLOGY MPV 9.5 fL 7.4 - 10.4 05/15 [facility] HEMATOLOGY RDW 13.4 % 11.5 - 12 MH 14.5 [facility] HEMATOLOGY MCHC 33.6 g/dL 32.0 - 05/15 36.0 /2014 [facility] HEMATOLOGY RBC 3.30 M/CMM 4.70 - 05/15 6.10 [facility] HEMATOLOGY Hgb 11.0 g/dL 14.0 - 05/[address] [facility] WBC 4.7 K/CMM 3.7 - 10.4 05/15 [facility] HEMATOLOGY PTT 55.3 s 22.9 - 05/14 35.8 [facility] CHEM PANEL Phosphorus 3.2 mg/dL 2.5 - 4.5 05/14 [facility] CHEM PANEL Magnesium 1.7 mg/dL 1.8 - 2.4 05/14 Lv [facility] CHEM PANEL eGFR 52 05/14 Result [...] is not recommended in the following populations: [facility] 3m2 Individuals with unstable creatinine concentrations, [...] Lvl 108 meq/L 95 - 109 05/14 [facility] CHEM PANEL Potassium 3.9 meq/L 3.5 - 5.1 05/14 Lvl /2014 [facility] CHEM PANEL Sodium Lvl 142 meq/L 135 - 145 05/14 [facility] CHEM PANEL Creatinine 1.29 mg/dL 0.50 - 05/14 Lvl 1.40 /2014 [facility] CHEM PANEL CO2 26 meq/L 24 - 32 05/14 [facility] CHEM PANEL Calcium Lvl 8.2 mg/dL 8.5 - 10.5 05/14 [facility] CHEM PANEL BUN 20 mg/dL 7 - 22 05/14 [facility] CHEM PANEL Glucose Lvl 111 mg/dL 70 - 99 05/14 [facility] CHEM PANEL AGAP 11.9 meq/L 10.0 - 05/14 20.0 [facility] HEMATOLOGY MPV 9.3 fL 7.4 - 10.4 05/14 [facility] HEMATOLOGY RDW 13.2 % 11.5 - 05/14 MH 14.5 /2014 [facility] HEMATOLOGY MCHC 33.2 g/dL 32.0 - 05/14 MH 36.0 /2014 [facility] HEMATOLOGY Platelet 102 K/CMM 133 - 450 05/14 [facility] HEMATOLOGY MCH 33.2 pg 27.0 - 05/14 MH 31.0 /2014 [facility] HEMATOLOGY Hct 32.7 % 42.0 - 05/14 MH 54.0 [facility] HEMATOLOGY MCV 99.9 fL 80.0 - 05/14 MH 94.0 /2014 [facility] HEMATOLOGY WBC 5.1 K/CMM 3.7 - 10.4 05/14 [facility] HEMATOLOGY RBC 3.27 M/CMM 4.70 - 05/14 MH 6.10 [facility] HEMATOLOGY Hgb 10.9 g/dL 14.0 - 12 MH 18.0 /2015 [facility] HEMATOLOGY Lymphocytes 1.4 K/CMM 1.0 - 5.5 05/14 # /2015 [facility] HEMATOLOGY Monocytes # 0.5 K/CMM 0.0 - 0.8 05/14 /2014 [facility] HEMATOLOGY Segs-Bands # 3.0 K/CMM 1.5 - 8.1 05/14 /2014 [facility] HEMATOLOGY Basophils 0.5 % 0.0 - 1.0 05/14 MH /2014 [facility] HEMATOLOGY Eosinophils 0.2 K/CMM 0.0 - 0.5 05/14 MH # /2015 [facility] HEMATOLOGY Macrocyte 1+ None Seen 05/14 [facility] *ABN* (05/14/15 6:20 AM) HEMATOLOGY Segs 58.7 % 45.0 - 05/14 MH 75.0 /2014 [facility] HEMATOLOGY Lymphocytes 26.6 % 20.0 - 12/ MH 40.0 /2014 [facility] HEMATOLOGY Monocytes 10.1 % 2.0 - 12.0 05/14 /2014 [facility] HEMATOLOGY Eosinophils 4.1 % 0.0 - 4.0 05/14 /2014 [facility] CARDIAC Total CK 74 unit/L 12 - 191 05/13 ENZYMES /2014 [facility] CARDIAC Troponin-I 0.69 ng/mL 0.00 - 05/13 Result ENZYMES 0.40 /2015 Comment: [facility] Critical Result(s) called to Taz Hebert RN at 05/13/2015 03:08 by shyann. Read back OK. CHEM PANEL Phosphorus 3.0 mg/dL 2.5 - 4.5 05/13 [facility] CHEM PANEL Magnesium 1.8 mg/dL 1.8 - 2.4 05/13 Lvl /2014 [facility] ELECTROLYT AGAP 9.0 meq/L 10.0 - 12 ES 20.0 /2014 [facility] ELECTROLYT eGFR 48 05/13 Result Comment: [...] is not recommended in the following populations: [facility] 3m2 Individuals with unstable creatinine concentrations, [...] Lvl 8.8 mg/dL 8.5 - 10.5 05/13 [facility] ELECTROLYT CO2 28 meq/L 24 - 32 05/13 [facility] ELECTROLYT Chloride Lvl 108 meq/L 95 - 109 05/13 [facility] ELECTROLYT Potassium 4.0 meq/L 3.5 - 5.1 05/13 [facility] Lvl [facility] ELECTROLYT Glucose Lvl 127 mg/dL 70 - 99 05/13 [facility] ELECTROLYT Sodium Lvl 141 meq/L 135 - 145 05/13 [facility] ELECTROLYT Creatinine 1.36 mg/dL 0.50 - 05/13 [facility] Lvl 1.40 [facility] ELECTROLYT BUN 29 mg/dL 7 - 22 05/13 [facility] HEMATOLOGY Eosinophils 0.1 K/CMM 0.0 - 0.5 05/13 # /2015 [facility] HEMATOLOGY Monocytes # 0.4 K/CMM 0.0 - 0.8 05/13 [facility] HEMATOLOGY Macrocyte 1+ None Seen 05/13 [facility] *ABN* (05/13/15 2:07 AM) HEMATOLOGY Segs-Bands # 2.7 K/CMM 1.5 - 8.1 05/13 [facility] HEMATOLOGY Basophils 0.4 % 0.0 - 1.0 05/13 [facility] HEMATOLOGY Eosinophils 3.2 % 0.0 - 4.0 05/13 [facility] HEMATOLOGY Lymphocytes 1.2 K/CMM 1.0 - 5.5 05/13 [facility] HEMATOLOGY Monocytes 8.6 % 2.0 - 12.0 05/13 [facility] HEMATOLOGY Lymphocytes 27.6 % 20.0 - 05/13 40.0 [facility] HEMATOLOGY Segs 60.2 % 45.0 - 05/13 75.0 /2014 [facility] HEMATOLOGY WBC 4.4 K/CMM 3.7 - 10.4 05/13 [facility] HEMATOLOGY RBC 3.33 M/CMM 4.70 - 12 MH 6.10 /2014 [facility] HEMATOLOGY Platelet 114 K/CMM 133 - 450 12 /2014 [facility] HEMATOLOGY MPV 10.0 fL 7.4 - 10.4 12 MH /2014 [facility] HEMATOLOGY Hgb 11.3 g/dL 14.0 - 05/13 MH 18.0 /2014 [facility] HEMATOLOGY Hct 33.1 % 42.0 - 05/13 54.0 /2014 [facility] HEMATOLOGY RDW 13.4 % 11.5 - 05/13 MH 14.5 /2014 [facility] HEMATOLOGY MCV 99.4 fL 80.0 - 05/13 94.0 /2014 [facility] HEMATOLOGY MCH 34.0 pg 27.0 - 05/13 31.0 /2014 [facility] HEMATOLOGY MCHC 34.2 g/dL 32.0 - 05/13 36.0 /2014 [facility] LIPIDS Trig 302 mg/dL <=149 05/13 mg/dL /2014 [facility] LIPIDS VLDL 60 05/13 /2014 [facility] LIPIDS Chol 143 mg/dL <=199 05/13 mg/dL /2014 [facility] LIPIDS CHD Risk 5.11 4.00 - 05/13 7.30 /2014 [facility] LIPIDS HDL 28 mg/dL >=61 mg/dL 05/13 /2014 [facility] LIPIDS LDL 55 mg/dL <=99 mg/dL 05/13 (Calculated) [facility] CARDIAC CK MB Index 3.9 0.0 - 2.5 05/13 ENZYMES /2014 [facility] CARDIAC CK MB 3.3 ng/mL 0.5 - 3.6 05/13 ENZYMES /2014 [facility] CARDIAC Total CK 85 unit/L 12 - 191 05/13 ENZYMES /2014 [facility] CARDIAC Troponin-I 0.69 ng/mL 0.00 - 05/13 Result ENZYMES 0.40 /2014 Comment: [facility] Critical Result(s) called to Taz Hebert RN at 05/12/2015 22:11 by shyann. Read back OK. HEMATOLOGY INR 1.14 0.85 - 05/13 1.17 /2014 [facility] HEMATOLOGY PT 14.9 s 12.0 - 05/13 14.7 [facility] CARDIAC BNP 408 pg/mL <=100 05/12 [facility] pg/mL /2014 [facility] CARDIAC Troponin-I 1.25 ng/mL 0.00 - 05/12 Result ENZYMES 0.40 /2014 Comment: [facility] Critical Result(s) called to jose alfredo shearer at _05/12/2015 15:38 bybz_. Read back OK. CARDIAC Total CK 112 unit/L 12 - 191 05/12 ENZYMES /2014 [facility] CARDIAC CK MB 4.5 ng/mL 0.5 - 3.6 05/12 ENZYMES /2014 [facility] CARDIAC CK MB Index 4.0 0.0 - 2.5 05/12 ENZYMES [facility] CHEM PANEL Alk Phos 89 unit/L 39 - 136 05/12 [facility] CHEM PANEL B/C Ratio 18 6 - 25 05/12 [facility] CHEM PANEL Bili Total 0.9 mg/dL 0.2 - 1.3 05/12 [facility] CHEM PANEL A/G Ratio 1.1 0.7 - 1.6 05/12 [facility] CHEM PANEL Globulin 3.7 g/dL 2.0 - 4.0 05/12 [facility] CHEM PANEL Total 7.6 g/dL 6.4 - 8.4 05/12 Protein [facility] CHEM PANEL Albumin Lvl 3.9 g/dL 3.5 - 5.0 05/12 [facility] CHEM PANEL AST 33 unit/L 0 - 37 05/12 [facility] CHEM PANEL ALT 34 unit/L 0 - 65 05/12 [facility] HEMATOLOGY INR 1.02 0.85 - 05/12 1.17 /2014 [facility] HEMATOLOGY PT 13.7 s 12.0 - 05/12 14.7 /2014 [facility] URINE AND UA Leuk Est Negative Negative 05/12 STOOL [facility] (05/12/15 2:56 PM) URINE AND UA Bili Negative Negative 05/12 STOOL [facility] *NA* (05/12/15 2:56 PM) URINE AND UA Blood Negative Negative 05/12 STOOL [facility] (05/12/15 2:56 PM) URINE AND UA Nitrite Negative Negative 05/12 STOOL [facility] (05/12/15 2:56 PM) URINE AND UA 0.2 EU/dL 0.1 - 1.0 05/12 STOOL Urobilinogen /2014 [facility] URINE AND UA pH 5.0 5.0 - 8.0 05/12 STOOL [facility] URINE AND UA Color Yellow Yellow 05/12 STOOL [facility] *NA* (05/12/15 2:56 PM) URINE AND UA Glucose Negative Negative 05/12 [facility] mg/dL mg/dL [facility] URINE AND UA Protein Negative Negative 05/12 [facility] mg/dL mg/dL [facility] URINE AND UA Ketones Negative Negative 05/12 [facility] mg/dL mg/dL [facility] URINE AND UA Spec Grav 1.010 <=1.030 05/12 [facility] URINE AND UA Turbidity Clear Clear 05/12 STOOL [facility] (05/12/15 2:56 PM) URINE AND UA WBC 0-2 /HPF None Seen 05/12 [facility] /HPF /2014 [facility] URINE AND UA Sq Epi None Seen Few 05/12 [facility] (05/12/15 2:56 PM) URINE AND UA Bacteria None Seen None Seen 05/12 [facility] (05/12/15 2:56 PM) URINE AND UA RBC None Seen 0 - 2 05/12 [facility] (05/12/15 2:56 PM) Chest Chest 1view Name: GILL MADERA 05/12 [facility] 1view DX DX /2014 - [facility] : 1935 Read by: Snehal Fung [...] Renal Renal Stone Name: GILL MADERA 11/13 [facility] Stone CT CT /2013 - Outpatient : 1935 Imaging [facility] Read by: Silverio Mahmood MD Dictated [...] reconstructions were obtained and viewed on a [employer] workstation. FINDINGS: A 5 mm calcified granuloma [...] POC 148 mg/dL 65 - 110 06/29 [place] 1Interpretive GLUCOSE Lifscn Data: [facility] TESTING Upper Reportable Limit: 200 mg/dL. BEDSIDE Gluc POC 180 mg/dL 65 - 110 06/29 [place] 2Interpretive GLUCOSE Lifsc[employer] Data: [facility] TESTING Upper Reportable Limit: 200 mg/dL. BEDSIDE Gluc POC 248 mg/dL - 110 06/28 [place] 3Interpretive GLUCOSE Lifsc[employer] Data: [facility] TESTING Upper Reportable Limit: 200 mg/dL. CHEMISTRY AGAP 14.6 meq/L 10.0 - 06/26 Normal 20.0 [facility] CHEMISTRY Calcium Lvl 9.1 mg/dL 8.5 - 10.5 06/26 Normal [facility] CHEMISTRY CO2 27 meq/L 24 - 32 06/26 Normal [facility] CHEMISTRY Chloride Lvl 103 meq/L 95 - 109 06/26 Normal [facility] CHEMISTRY Potassium 4.6 meq/L 3.5 - 5.1 06/26 [facility] Lvl [facility] CHEMISTRY Sodium Lvl 140 meq/L 135 - 145 06/26 Normal [facility] CHEMISTRY Creatinine 2.1 mg/dL 0.5 - 1.4 06/26 [facility] Lvl [facility] CHEMISTRY Glucose Lvl 175 mg/dL 06/26 NA 4Interpretive Data: [facility] Reference Ranges : 0 - 7 days : 41 - 90 mg/dL7 days - 150 yrs : 70 - 99 mg/dL (fasting), based on the clinical recommendatio ns of the [place] [employer]. CHEMISTRY BUN 36 mg/dL 7 - 22 06/26 [facility] HEMATOLOGY Basophils # 0.0 K/CMM 0.0 - 0.2 06/26 Normal [facility] HEMATOLOGY Eosinophils 0.1 K/CMM 0.0 - 0.5 06/26 Normal MH # /2011 [facility] HEMATOLOGY Eosinophils 1.8 % 0.0 - 4.0 06/26 Normal MH /2011 [facility] HEMATOLOGY Lymphocytes 1.0 K/CMM 1.0 - 5.5 06/26 Normal MH # /2011 [facility] HEMATOLOGY Monocytes # 0.3 K/CMM 0.0 - 0.8 06/26 Normal /2011 [facility] HEMATOLOGY Basophils 0.5 % 0.0 - 1.0 06/26 Normal /2011 [facility] HEMATOLOGY Monocytes 7.7 % 2.0 - 12.0 06/26 Normal MH /2011 [facility] HEMATOLOGY Lymphocytes 23.4 % 20.0 - 06/26 Normal MH 40.0 /2011 [facility] HEMATOLOGY Segs-Bands # 2.8 K/CMM 1.5 - 8.1 06/26 Normal /2011 [facility] HEMATOLOGY Segs 66.6 % 45.0 - 06/26 Normal MH 75.0 /2011 [facility] HEMATOLOGY PT 13.7 s 12.0 - 06/26 Normal MH 14.7 [facility] HEMATOLOGY INR 1.05 0.85 - 06/26 Normal 9Interpretive MH 1. Data: [facility] RECOMMENDED RANGES FOR PROTIME INR: 2.0-3.0 for most medical and surgical thromboemboli c states. 2.5-3.5 for artificial heart valves and recurrent embolism.INR SHOULD BE USED ONLY FOR PATIENTS ON STABLE ANTICOAGULANT THERAPY. HEMATOLOGY MPV 10.0 fL 7.4 - 10.4 06/26 Normal /2011 [facility] MCHC 35.5 g/dL 32.0 - 06/26 Normal 36.0 /2011 [facility] HEMATOLOGY RDW 13.4 % 11.5 - 06/26 Normal 14.5 [facility] HEMATOLOGY Platelet 127 K/CMM 133 - 450 06/26 LOW MH /2011 [facility] HEMATOLOGY Hct 32.2 % 42.0 - 06/26 LOW 7Result MH 54.0 Comment: [facility] Reference range changed due to change in patient's gender at 08:43:59. Normal Low changed from not defined to 42.0. Normal High changed from not defined to 54.0. Result flag changed from not applied to L. HEMATOLOGY Hgb 11.4 g/dL 14.0 - 06/26 LOW 6Result MH 18.0 Comment: [facility] Reference range changed due to change in patient's gender at 08:43:59. Normal Low changed from not defined to 14.0. Normal High changed from not defined to 18.0. Result flag changed from not applied to L. HEMATOLOGY MCV 97.1 fL 80.0 - 06/26 HI 8Result 94.0 Comment: [facility] Reference range changed due to change in patient's gender at 08:43:59. Normal Low changed from not defined to 80.0. Normal High changed from not defined to 94.0. Result flag changed from not applied to H. HEMATOLOGY MCH 34.5 pg 27.0 - 06/26 [facility] 31.0 [facility] HEMATOLOGY RBC 3.32 M/CMM 4.70 - 06/26 LOW 5Result 6.10 /2011 Comment: [facility] Reference range changed due to change in patient's gender at 08:43:59. Normal Low changed from not defined to 4.70. Normal High changed from not defined to 6.10. Result flag changed from not applied to L. HEMATOLOGY WBC 4.2 K/CMM 3.7 - 10.4 06/26 Normal [facility] Vital Signs Vital Sign Value Date Comments Source Respitory Rate 19 08/06/2017 [place] Systolic (mm Hg) 131 08/06/2017 [place] Diastolic (mm Hg) 62 08/06/2017 [place] Respitory Rate 18 08/06/2017 [place] Systolic (mm Hg) 131 08/06/2017 [place] Diastolic (mm Hg) 62 08/06/2017 [place] Respitory Rate 19 08/06/2017 [place] Systolic (mm Hg) 121 08/06/2017 [place] Diastolic (mm Hg) 64 08/06/2017 [place] Weight 90.909 08/06/2017 [place] BMI Calculated 28.76 08/06/2017 [place] Height 177.8 cm 08/06/2017 [place] Temperature Oral (F) 97.6 F 08/06/2017 [place] Heart Rate 68 08/06/2017 [place] Respitory Rate 20 05/30/2017 [facility] Heart Rate 58 05/30/2017 [facility] Systolic (mm Hg) 132 05/30/2017 [facility] [...] 12/30/2015 [facility] Diastolic (mm Hg) 67 12/30/2015 [facility] Temperature Oral (F) 98.0 F 12/30/2015 [facility] Heart Rate 68 12/30/2015 [facility] Respitory Rate 16 12/30/2015 [facility] Temperature Oral (F) 98.4 F 12/30/2015 [facility] Respitory Rate 16 12/30/2015 [facility] Heart Rate 62 12/30/2015 [facility] Systolic (mm Hg) 137 12/30/2015 [facility] Diastolic (mm Hg) 65 12/30/2015 [facility] Weight 82.273 12/30/2015 [facility] Temperature Oral (F) 98.2 F 12/30/2015 [facility] Heart Rate 64 12/30/2015 [facility] Systolic (mm Hg) 130 12/30/2015 [facility] Diastolic (mm Hg) 64 12/30/2015 [facility] Respitory Rate 16 12/30/2015 [facility] BMI Calculated 28.82 12/28/2015 [facility] Weight 83.455 12/28/2015 [facility] Height 170.18 cm 12/28/2015 [facility] BMI Calculated 29.25 12/28/2015 [facility] Height 170.18 cm 12/28/2015 [facility] Weight 84.716 12/28/2015 [facility] Systolic (mm Hg) 104 05/22/2015 [facility] Diastolic (mm Hg) 52 05/22/2015 [facility] Systolic (mm Hg) 109 05/22/2015 [facility] Diastolic (mm Hg) 52 05/22/2015 [facility] Temperature Oral (F) 98.2 F 05/22/2015 [facility] Systolic (mm Hg) 140 05/22/2015 [facility] Diastolic (mm Hg) 66 05/22/2015 [facility] Temperature Oral (F) 98.2 F 05/21/2015 [facility] Temperature Oral (F) 98.0 F 05/21/2015 [facility] Respitory Rate 20 05/20/2015 [facility] Heart Rate 63 05/20/2015 [facility] Respitory Rate 18 05/20/2015 [facility] Heart Rate 63 05/20/2015 [facility] Heart Rate 73 05/20/2015 [facility] Respitory Rate 18 05/20/2015 [facility] BMI Calculated 29.35 05/17/2015 [facility] Height 170.18 cm 05/17/2015 [facility] Weight 85 05/17/2015 [facility] Systolic (mm Hg) 144 05/17/2015 [facility] Diastolic (mm Hg) 62 05/17/2015 [facility] Respitory [...] 20 06/29/2011 [facility] Heart Rate 76 06/29/2011 [facility] Temperature Oral (F) 96.0 F 06/29/2011 [facility] Diastolic (mm Hg) 81 06/29/2011 [facility] Systolic (mm Hg) 146 06/29/2011 [facility] Respitory Rate 18 06/29/2011 [facility] Systolic (mm Hg) 113 06/29/2011 [facility] Diastolic (mm Hg) 72 06/29/2011 [facility] Temperature Oral (F) 96.7 F 06/29/2011 [facility] Heart Rate 78 06/29/2011 [facility] Diastolic (mm Hg) 70 06/29/2011 [facility] Heart Rate 90 06/29/2011 [facility] Temperature Oral (F) 98.0 F 06/29/2011 [facility] Respitory Rate 20 06/29/2011 [facility] Systolic (mm Hg) 137 06/29/2011 [facility] Weight 94.545 06/26/2011 [facility] Height 170.18 cm 06/26/2011 [facility] Encounters Location Location Encounter Encounter Reason Attending ADM DC Status Source Details Type Number For Provider Date Date Visit Not Sent YOANDY [id number] CHRONIC PING [facility]ING 06/28 06/29 Active 0 [facility] 428.22 ANGINA 413.9. [facility] Outpt Diag [id number] [place] 11/13 11/14 [facility] Outpatient Services 0 [facility] Cardi[facility] STRESS TEST [id number] 12/17 12/17 Cardiova ular [id number] /2013 [id number] 18d Cardiovasc STRESS TEST [id number] 12/17 12/17 [facility] [id number] /2013 [id number] [facility] bb9 Cardiovasc STRESS TEST [id number] 12/17 12/17 [facility] [id number] /2013 [id number] [facility] c2a Cardiovasc STRESS TEST [id number] 12/17 12/17 [facility] [id number] /2013 [id number] [facility] c19 Cardiovasc STRESS TEST [id number] 12/17 12/17 [facility] [id number] /2013 [id number] [facility] 790 Cardiovasc STRESS TEST [id number] 12/17 12/17 [facility] ular [id number] /2013 [id number] [facility] eaf Cardiovasc STRESS TEST [id number] 12/17 12/17 [facility] [id number] /2013 [id number] [facility] 8e8 Cardiovasc STRESS TEST [id number] 12/17 12/17 [facility] [id number] /2013 [id number] [facility] 8f0 Cardiovasc STRESS TEST [id number] 12/17 12/17 [facility] [id number] /2013 [id number] [facility] 188 Cardiovasc STRESS TEST [id number] 12/17 12/17 [facility] [id number] /2013 [id number] [facility] a47 Cardiovasc Established [id number] 12/17 12/17 [facility] Patient [id number] /2013 [id number] [facility] 523 Cardiovasc Established [id number] 12/17 12/17 [facility] Patient [id number] /2013 [id number] [facility] 6c1 Cardiovasc Established [id number] 12/17 12/17 [facility] Patient [id number] /2013 [facility] [id number] [facility] c3c Cardiovasc Established [id number] 12/17 12/17 Cardi[facility] Patient [id number] /2013 [id number] [facility] 31e Cardiovasc Established [id number] 12/17 12/17 Cardi[facility] Patient [id number] /2013 [id number] [facility] dc5 Cardiovasc Established [id number] 12/17 12/17 [facility] Patient [id number] /2013 [facility][id number] [facility] 99c Cardiovasc Established [id number] 12/17 12/17 [facility] Patient [id number] /2013 [id number] [facility] acf Cardiovasc Established [id number] 12/17 12/17 Cardiova ular Patient [id number] [facility] [id number] [facility] 2ca Cardiovasc Established [id number] 12/17 12/17 [facility] Patient [id number] [id number] [facility] 4e4 Cardiovasc Established [id number] 12/17 12/17 [facility] Patient [id number] /2013 [id number] [facility] e92 Cardiovasc Established [id number] 03/19 03/19 [facility] Patient [id number] [id number] [facility] 99e Cardiovasc Established [id number] 03/19 03/19 [facility] Patient [id number] /2013 [id number] [facility] e95 Cardiovasc Established [id number] 03/19 03/19 [facility] Patient [id number] /2013 [id number] [facility] 096 Cardiovasc Established [id number] 03/19 03/19 Cardi[facility] Patient [id number] /2013 [id number] [facility] 365 Cardiovasc Established [id number] 03/19 03/19 [facility] Patient [id number] /2013 [id number] [facility] 0e7 Cardiovasc Established [id number] 03/19 03/19 Cardi[facility] Patient [id number] /2013 [id number] [facility] 1d9 Cardiovasc Established [id number] 03/19 03/19 Cardi[facility] Patient 3e-[id number] /2013 [id number] [facility] 94f Cardiovasc Established [id number] 03/19 03/19 [facility] Patient 2a-[id number] [id number] [facility] a8b Cardiovasc Established [id number] 03/19 03/19 [facility] Patient [id number]-[id number] /2013 [id number] [facility] c27 Cardiovasc Established [id number] 03/19 03/19 Cardiova ular Patient [id number] [facility][id number] [facility] 33a Cardiovasc Established [id number] 06/25 06/25 Cardi[facility] Patient 2b-[id number] /2014 [id number] [facility] a45 Cardiovasc Established [id number] 06/25 06/25 Cardi[facility] ular Patient [id number] /2014 [id number] [facility] [place] Cardiovasc Established [id number] 06/25 06/25 Cardi[facility] ular Patient 3f-[id number] /2014 [facility] [id number] [facility] e6e Cardiovasc Established [id number] 06/25 06/25 [facility] Patient [id number]-[id number] /2014 [facility][id number] [facility] 92b Cardiovasc Established [id number] 06/25 06/25 [facility] Patient [id number] /2014 [id number] [facility] 1fb Cardiovasc Established [id number] 06/25 06/25 Cardiova ular Patient [id number] /2014 [facility][id number] [facility] bf1 Cardiovasc Established [id number] 06/25 06/25 Cardi[facility] Patient [id number] /2014 [id number] [facility] 5fc Cardiovasc [place] [id number] 08/06 08/06 Cardiova ular refill [id number] /2014 [id number] [facility] a59 Cardiovasc [place] [id number] 08/06 08/06 Cardiova ular refill [id number] /2014 [facility] f[facility][id number] [facility] 2ae Cardiovasc [place] [id number] 08/06 08/06 Cardiova ular refill [id number] /2014 [facility] [id number] [facility] 751 Cardiovasc [place] [id number] 08/06 08/06 Cardiova ular refill [id number]-1lq /2014 [facility] d-[id number] [facility] 3d8 Cardiovasc [place] [id number] 08/06 08/06 Cardiova ular refill [id number] /2014 [facility] [id number] [facility] 2ee [facility]ov[facility] [place] [id number] 08/06 08/06 Cardiova ular refill 97-463c-8f0 /2014 [facility] [id number] [facility] 472 Cardiovasc Unknown [id number] 08/18 08/18 Cardiova ular [id number] /2014 [facility] [id number] [facility] d59 Cardiovasc Unknown [id number] 08/18 08/18 Cardiova ular 87-4089-b16 /2014 [facility] 9-[id number] [facility] a62 Cardiovasc Unknown [id number] 08/18 08/18 Cardiova ular [id number]-b56 /2014 [facility] b-[id number] [facility] 242 Cardiovasc Unknown [id number] 08/18 08/18 Cardiova ular 60-42ba-9e5 /2014 [facility] b-[id number] [facility] a07 Cardiovasc Unknown [id number] 08/18 08/18 Cardiova ular [id number] /2014 [facility] [id number] [facility] 85e Cardiovasc Unknown [id number] 08/18 08/18 Cardiova ular [id number]-[id number]-[id number] /2014 [facility] f-[id number] [facility] lucas Cardiovasc chest pain. [id number] 10/07 10/07 Cardiova ular 10/06 [id number] /2014 [facility] [id number] [facility] 12d Cardiovasc chest pain. [id number] 10/07 10/07 Cardiova ular 10/06 [id number]-[id number] /2014 [facility] [id number] [facility] 40e Cardiovasc chest pain. [id number] 10/07 10/07 Cardiova ular 10/06 [id number] /2014 [facility] a-[id number] [facility] cc8 Cardiovasc chest pain. [id number] 10/07 10/07 Cardiova ular 10/06 [id number] /2014 [facility] [id number] [facility] e95 Cardiovasc chest pain. [id number] 10/07 10/07 Cardiova ular 10/06 [id number] /2014 [facility] [id number] [facility] d6e Cardiovasc chest pain. [id number] 10/07 10/07 Cardiova ular 10/06 [id number] /2014 [id number] [facility] 512 Cardiovasc Established [id number] 01/18 01/18 Cardiova ular Patient [id number] /2014 [facility] [id number] [facility] e4e Cardiovasc Established [id number] 01/18 01/18 Cardiova ular Patient [id number] /2014 [facility] [id number] [facility] 57a Cardiovasc Established [id number] 01/18 01/18 Cardiova ular Patient [id number] /2014 [facility] [id number] [facility] 09c Cardiovasc Established [id number] 01/18 01/18 Cardiova ular Patient [id number] /2014 [facility] [id number] [facility] ea8 Cardiovasc Established [id number] 01/18 01/18 Cardiova ular Patient [id number] /2014 [id number] [facility] b26 Cardiovasc Established [id number] 01/18 01/18 Cardiova ular Patient [id number] /2014 [facility] [id number] [facility] 338 Cardiovasc possible [id number] 05/11 05/11 Cardiova ular heart [id number] /2014 [facility] attack [id number] [facility] 24b Cardiovasc possible [id number] 05/11 05/11 Cardiova ular heart [id number] /2014 [facility] attack [id number] [facility] 4a0 Cardiovasc possible [id number] 05/11 05/11 Cardiova ular heart [id number] /2014 [facility] attack [id number] [facility] 39d Cardiovasc possible [id number] 05/11 05/11 Cardiova ular heart [id number] /2014 [facility] attack [id number]-[id number] [facility] ad0 Cardiovasc possible [id number] 05/11 05/11 Cardiova ular heart [id number] /2014 [facility] attack [id number] [facility] 6cc Cardiovasc possible [id number] 05/11 05/11 Cardiova ular heart fb-[id number] scular Associatio attack [id number] [facility] af7 Cardiovasc Established [id number]-48 05/12 05/12 Cardiova ular Patient [id number] /2014 [facility] [id number] [facility] 5a7 Cardiovasc Established [id number] 05/12 05/12 Cardiova ular Patient [id number] [facility] [id number] [facility] 97a Cardiovasc Established [id number] 05/12 05/12 Cardiova ular Patient [id number] /2014 [facility] [id number] [facility] 0da Cardiovasc Established [id number] 05/12 05/12 Cardiova ular Patient [id number] /2014 [facility] [id number] [facility] 3a7 Cardiovasc Established [id number] 05/12 05/12 Cardiova ular Patient a0-4ebb-9b [facility] [id number] [facility] a0a Cardiovasc Established [id number] 05/12 05/12 Cardiova ular Patient 1f-[id number] scular Associatio [id number] [facility] 1ea [facility] Inpatient [id number] [place] Lily 05/12 05/17 Har[place] 1 [facility] Inpatient [id number] [facility] 05/17 05/22 [facility] 1 [place] /2014 [facility] Cardiovasc Pt in [id number] 05/18 05/18 Cardiova ular [facility] [id number] scular Associatio 05/18 [id number] [facility] d79 Cardiovasc Pt in [id number] 05/18 05/18 Cardiova ular [facility] [id number] /2014 scular Associatio 05/18 [id number] [facility] e58 Cardiovasc Pt in [id number] 05/18 05/18 Cardiova ular [facility] [id number] /2014 scular Associatio 05/18 [id number] [facility] 87e Cardiovasc Pt in [id number] 05/18 05/18 Cardiova ular [facility] [id number] /2014 scular Associatio 05/18 [id number] [facility] e6c Cardiovasc [place] [id number] 10/18 10/18 Cardiova ular [facility] fe-[id number] /2015 scular Associatio [id number] [facility] 6b3 Cardiovasc [place] [id number] 10/18 10/18 Cardiova ular [facility] [id number] /2015 sc[facility] [id number] [facility] 9b9 Cardiovasc [place] [id number] 10/18 10/18 Cardiova ular [facility] [id number] /2015 scular [facility]atio [id number] [facility] b98 Cardiovasc chest pain [id number] 12/27 12/27 Cardiova ular 2a-[id number] /2015 sc[facility] c-[id number] [facility] 5ea Cardiovasc chest pain 005q9m0g-81 12/27 12/27 Cardiova ular [id number] /2015 scular Associatio [id number] [facility] [id number] [place] 12/27 12/29 Har[place] 2 [place] /2015 [facility] Cardiovasc Established [id number] 04/10 04/10 Cardiova ular Patient [id number] /2015 scular Associatio [id number] [facility] bbf [facility] [id number] Janeth 11/02 11/03 [place] 7 [place] /2016 [facility] Emergency [id number] Shahzad 05/30 05/30 Harlye 3 Lee /2016 [facility] Emergency [id number] Vanda 08/06 08/06 [facility] [place] 4 [facility] Procedures Procedure Code Date Perfomer Comments Source CABG x 2 - [id number] [facility] Coronary artery [facility] bypass grafts x 2 Excision of [id number] [facility] CABG x 2 - [id number] [facility] Coronary artery bypass grafts x 2 Excision of [id number] [facility] gallbladder Angioplasty [id number] [facility] Angioplasty [id number] [facility] CABG x 2 - [id number] The Coronary artery [place] bypass grafts x 2 Excision of [id number] [facility]
--- OUTSIDE RECORDS SUMMARY | 2018-01-03 23:16 | XMS REPORT ---
:1935 Author Organization eClinicalWorks Care Team Providers Name Role Phone PHYLLIS [place] Provider Role Unavailable Allergies, Adverse Reactions, Alerts Substance Reaction Event Type N.K.D.A. 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 Problem Presence of automatic (implantable) Z95.810 Active cardiac defibrillator Medications Medication Code Code Instructions Start End Status Dosage System Date Date nitroglycerin [facility] 44239745385 0.4 mg Active 1 tab(s) sublingually every 5 minutes baclofen [facility] 17820372277 10 mg orally Active 1 tab(s) bid tamsulosin [facility] 29411069252 0.4 mg orally Active 1 cap(s) once a day ASA [facility] 02515978299 81mg once a Active 1 tab(s) day losartan [facility] 79720305639 50 mg orally Active 1 tab(s) once a day spironolactone [facility] 81971042007 25 mg orally Active 1 tab(s) bid Prilosec [facility] 12659201546 20 mg orally Active 1 cap(s) once a day glimepiride [facility] 25886564630 1 mg orally bid Active 1 tab(s) clopidogrel [facility] 08795487197 75 mg orally Active 1 tab(s) once a day furosemide [place] 78107298395 40 mg orally Active 1 tab(s) once a day carvedilol [facility] 26259204866 6.25 orally 2 Active 1 tab(s) times a day Glumetza [facility] 67203268782 500 mg orally Active 1 tab(s) bid isosorbide [facility] 50351981078 30 mg orally Active 1 tab(s) dinitrate every 8 hrs Synthroid [facility] 94329481410 200 mcg (0.2 Active 1 tab(s) mg) orally once a day hydralazine [facility] 15072987826 25 mg orally 4 Active 1 tab(s) times a day [place] [facility] 84479580673 1000 mg orally Active 1 tab(s) 2 times a day omeprazole [facility] 74908968839 20 mg orally Active 1 cap(s) once a day Vital Signs Date/Time: September 03, 2016 Blood Pressure Systolic 136 mm Hg BMI 29.53 Index Height 66 in Blood Pressure Diastolic 60 mm Hg Results No Known Results Summary Purpose eClinicalWorks Submission
--- OUTSIDE RECORDS SUMMARY | 2018-01-03 23:16 | XMS REPORT | CCD ---
:1935 Author Organization [facility] Care Team Providers Name Role Phone Jessica [...] PO, Drug 06/28/2011 06/29/2011 Discontinued Form: TAB, [id number], Start date: 06/28/11 6:00:00, Duration: 4 doses [...] based on the clinical recommendations of the [place] [employer].HEMATOLOGY Most recent to oldest [Reference [...]
--- OUTSIDE RECORDS SUMMARY | 2018-01-03 23:16 | XMS REPORT ---
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
--- OUTSIDE RECORDS SUMMARY | 2018-01-03 23:16 | XMS REPORT ---
[...] Medications Results No Known Results Summary Purpose [employer] Submission
--- OUTSIDE RECORDS SUMMARY | 2018-01-03 23:16 | XMS REPORT ---
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
--- OUTSIDE RECORDS SUMMARY | 2018-01-03 23:16 | XMS REPORT ---
[...] Medications Results No Known Results Summary Purpose [employer] Submission
--- OUTSIDE RECORDS SUMMARY | 2018-01-03 23:16 | XMS REPORT ---
:1935 Author Organization eClinicalWorks Care Team Providers Name Role Phone PHYLLIS [place] Provider Role Unavailable Allergies, Adverse Reactions, Alerts Substance Reaction Event Type N.K.D.A. 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 Assessment Presence of coronary angioplasty Z95.5 Active implant and graft Problem 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 Problem Presence of automatic (implantable) Z95.810 Active cardiac defibrillator Problem Presence of coronary angioplasty Z95.5 Active implant and graft Problem Hyperlipidemia, unspecified E78.5 Active Problem Hypothyroidism, unspecified E03.9 Active Problem 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 Problem 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 Assessment 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 Assessment Hyperlipidemia, unspecified E78.5 Active Assessment 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 Medications Medication Code System Code Instructions Start Date End Date Status Dosage spironolactone NDC 67997 25 mg orally bid Active 1 tab(s) Glumetza NDC 41537 500 mg orally bid Active 1 tab(s) clopidogrel NDC 39985 75 mg orally once Active 1 tab(s) a day Synthroid NDC 2205 200 mcg (0.2 mg) Active 1 tab(s) orally once a day carvedilol NDC 31503 3.125 mg orally 2 Active 2 tab(s) times a day glimepiride NDC 37654 1 mg orally bid Active 1 tab(s) atorvastatin NDC 62193 10 mg orally once Active 1 tab(s) a day (at bedtime) tamsulosin NDC 73034 0.4 mg orally Active 1 cap(s) once a day furosemide NDC 25940 40 mg orally once Active 1 tab(s) a day ASA NDC 0 81mg once a day Active 1 tab(s) Prilosec NDC 363 20 mg orally once Active 1 cap(s) a day [place] NDC 04414 1000 mg orally 2 Active 1 tab(s) times a day nitroglycerin NDC 80866 0.4 mg Active 1 tab(s) sublingually every 5 minutes losartan NDC 11297 50 mg orally once Active 1 tab(s) a day Vital Signs Date/Time: Jun 19, 2016 Blood Pressure Systolic 110 mm Hg BMI 30.66 Index Height 66 in Blood Pressure Diastolic 50 mm Hg Results No Known Results Summary Purpose eClinicalWorks Submission
--- OUTSIDE RECORDS SUMMARY | 2018-01-03 23:17 | XMS REPORT ---
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 36787104190 1000 mg orally 2 Active 1 tab(s) times a day Results No Known Results Summary Purpose eClinicalWorks Submission
--- OUTSIDE RECORDS SUMMARY | 2018-01-03 23:17 | XMS REPORT ---
:1935 Author Organization eClinicalWorks Care Team Providers Name Role Phone PHYLLIS [place] Provider Role Unavailable Encounters Encounter Location Date Established Patient [facility] December 17, 2013 STRESS TEST [facility], [facility] December 17, 2013 Established Patient [facility] Mar 19, 2014 Problems Problem Type Condition ICD-9 Code Onset Dates Condition Status Assessment 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 Active [place] vessel Problem Diabetes mellitus type II 250.00 Active Problem Hypertension Heart Disease - w/o 402.10 Active CHF* Problem 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 Problem Chronic systolic heart failure 428.22 Active Problem S/P Automatic Defibrillator V45.02 Active Problem 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 Active [place] vessel Problem 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 Problem Hypercholesterolemia NOS 272.4 Active Problem Hypothyroidism (acquired) 244.9 Active Medications Medication Code System Code Instructions Start End Date Status Dosage Date Humalog [facility] 6127 100 units/mL Active 12 units subcutaneously before meals levothyroxine [facility] 46599 200 mcg orally Active 1 cap(s) once a day [place] MULTUM 43366 1000 mg orally 2 Active 1 tab(s) times a day nitroglycerin [facility] 71937 0.4 mg/hr Active 1 PATCH transdermally prn nitroglycerin [facility] 44880 0.4 mg November 26, Active 1 tab(s) sublingually every 2013 5 minutes losartan [facility] 83992 50 mg orally once Active 1 tab(s) a day omeprazole [facility] 31613 20 mg orally once Active 1 tab(s) a day Crestor [facility] 80795 10 mg orally once Jan 27, Active 1 tab(s) a day (at bedtime) 2012 ASA Unknown 0 81mg once a day Active 1 tab(s) tamsulosin [facility] 27917 0.4 mg orally once Active 1 cap(s) a day Coreg [facility] 86717 12.5 mg orally 2 Active 1/2 tab times a day spironolactone [facility] 60801 25 mg orally 3 Active 1 tab(s) times a day Lantus [facility] 63608 100 units/mL Active 34 units at subcutaneously bedtime gemfibrozil [facility] 78993 600 mg orally 2 Active 1 tab(s) times a day furosemide [facility] 27326 20 mg orally once Active 2 tabs a day Social History Social History Element Qualifiers Date Reported Caffeine: yes. 2 cups of coffee a day Mar 19, 2014 Tobacco Use: . Status: Former Smoker quit 22 yrs ago Mar 19, 2014 Alcohol: no. Mar 19, 2014 Summary Purpose eClinicalWorks Submission
--- OUTSIDE RECORDS SUMMARY | 2018-01-03 23:17 | XMS REPORT ---
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 Assessment 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 Problem Presence of automatic (implantable) Z95.810 Active cardiac defibrillator Medications Medication Code Code Instructions Start End Status Dosage System Date Date losartan [facility] 51743730459 50 mg orally Active 1 tab(s) once a day clopidogrel [facility] 35930662367 75 mg orally Active 1 tab(s) once a day nitroglycerin [facility] 44966676906 0.4 mg Active 1 tab(s) sublingually every 5 minutes baclofen [facility] 14030319998 10 mg orally Active 1 tab(s) bid glimepiride [facility] 51637645883 1 mg orally Active 1 tab(s) once aday spironolactone [facility] 49385922082 25 mg orally Active 1 tab(s) bid furosemide [facility] 31919257892 40 mg orally Active 1 tab(s) once a day Glumetza [facility] 56227197410 500 mg orally Active 1 tab(s) bid carvedilol [facility] 61676440689 6.25 orally 2 Active 1 tab(s) times a day [place] [facility] 09379294050 1000 mg orally Active 1 tab(s) 2 times a day omeprazole [facility] 73225463144 20 mg orally Active 1 cap(s) once a day Prilosec [facility] 71196062730 20 mg orally Active 1 cap(s) once a day Synthroid [facility] 16281604026 200 mcg (0.2 Active 1 tab(s) mg) orally once a day hydralazine [facility] 57339217124 25 mg orally 4 Active 1 tab(s) times a day Lasix [facility] 96032112974 40 mg orally Ricarda Active 1 tab(s) once a day 2016 ASA [facility] 65000447934 81mg once a Active 1 tab(s) day tamsulosin [facility] 86030530954 0.4 mg orally Active 1 cap(s) once a day isosorbide [facility] 13533068351 30 mg orally Active 1 tab(s) dinitrate every 8 hrs Vital Signs Date/Time: September 25, 2016 Blood Pressure Systolic 122 mm Hg BMI 30.02 Index Height 66 in Blood Pressure Diastolic 50 mm Hg Results No Known Results Summary Purpose eClinicalWorks Submission
--- OUTSIDE RECORDS SUMMARY | 2018-01-03 23:17 | XMS REPORT ---
:1935 Author Organization eClinicalWorks Care Team Providers Name Role Phone CYN [place] Provider Role Unavailable Encounters Encounter Location Date Established Patient [facility], [facility] Jun 25, 2014 [place] refill [facility] Aug 06, 2014 Unknown [facility] August 18, 2014 chest pain. 10/06 [facility] October 07, 2014 Established Patient [facility] December 17, 2013 Pt in [facility] 05/18 [facility] May 18, 2015 STRESS TEST [facility] December 17, 2013 Established Patient [facility] Mar 19, 2014 Established Patient [facility] May 12, 2015 Established Patient [facility] Jan 18, 2015 possible heart attack [facility] May 11, 2015 Problems Problem Type Condition ICD-9 Code Onset Dates Condition Status Problem 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
--- OUTSIDE RECORDS SUMMARY | 2018-01-03 23:17 | XMS REPORT ---
[...] Association, [facility] December 17, 2013 Pt in [facility] 05/18 [facility], [facility] May 18, 2015 STRESS TEST [facility], [facility] December 17, 2013 [place] [facility] [facility] October 19, 2015 Established Patient [facility], [facility] Mar 19, 2014 Established Patient [facility], [facility] May 12, 2015 Established Patient [facility], [facility] Jan 18, 2015 possible heart attack [facility] May 11, 2015 Problems Problem Type Condition ICD-9 Code Onset Dates Condition Status Problem Presence 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 Problem 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
--- OUTSIDE RECORDS SUMMARY | 2018-01-03 23:17 | XMS REPORT ---
:1935 Author Organization eClinicalWorks Care Team Providers Name Role Phone [place] PHYLLIS Provider Role Unavailable Allergies, Adverse Reactions, Alerts Substance Reaction Event Type N.K.D.A. Info Not Available Non Drug Allergy Encounters Encounter Location Date Established Patient [facility], [facility] Jun 25, 2014 Established Patient [facility], [facility] December 17, 2013 STRESS TEST [facility], [facility] December 17, 2013 Established Patient [facility], [facility] Mar 19, 2014 Problems Problem Type Condition ICD-9 Code Onset Dates Condition Status Assessment 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 Active [place] vessel Problem Diabetes mellitus type II 250.00 Active Problem Hypertension Heart Disease - w/o 402.10 Active CHF* Problem 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 Problem Chronic systolic heart failure 428.22 Active Problem S/P Automatic Defibrillator V45.02 Active Problem 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 Active [place] vessel Problem 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 Problem Hypercholesterolemia NOS 272.4 Active Problem Hypothyroidism (acquired) 244.9 Active Assessment S/P Automatic Defibrillator V45.02 Active Assessment Chronic systolic heart failure 428.22 Active Assessment 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 Medications Medication Code System Code Instructions Start End Date Status Dosage Date losartan [facility] 39417 50 mg orally once Active 1 tab(s) a day nitroglycerin [facility] 83428 0.4 mg November 26, Active 1 tab(s) sublingually every 2013 5 minutes Lantus [facility] 39310 100 units/mL Active 34 units at subcutaneously bedtime Crestor [facility] 19217 10 mg orally once Jan 27, Active 1 tab(s) a day (at bedtime) 2012 levothyroxine [facility] 81169 112 mcg orally Active 2 caps once a day spironolactone [facility] 18120 25 mg orally 3 Active 1 tab(s) times a day carvedilol [facility] 52914 12.5 mg orally 2 Active 1 tab(s) times a day tamsulosin [facility] 07186 0.4 mg orally bid Active 1 cap(s) gemfibrozil [facility] 57556 600 mg orally 2 Active 1 tab(s) times a day ASA Unknown 0 81mg once a day Active 1 tab(s) omeprazole [facility] 85830 20 mg orally once Active 1 tab(s) a day furosemide [facility] 33694 40 mg orally once Jun 26, Active 1 tab(s) a day 2014 [place] M[facility] 98035 1000 mg orally 2 Active 1 tab(s) [...]
--- OUTSIDE RECORDS SUMMARY | 2018-01-03 23:17 | XMS REPORT ---
:1935 Author Organization eClinical[employer] Care Team Providers Name Role Phone PHYLLIS WHITT[place] Provider Role Unavailable Encounters Encounter Location Date Established Patient [facility] Jun 25, 2014 [place] [facility] Aug 06, 2014 Unknown [facility] August 18, 2014 chest pain. 10/06 [facility] October 07, 2014 Established Patient [facility], [facility] December 17, 2013 STRESS TEST [facility], [facility] December 17, 2013 Established Patient [facility] Mar 19, 2014 Established Patient [facility] May 12, 2015 Established Patient [facility] Jan 18, 2015 possible heart attack [facility] May 11, 2015 chest pain [facility] December 28, 2015 Pt in [facility] 05/18 [facility] May 18, 2015 [place] [facility] October 19, 2015 Problems Problem Type Condition ICD-9 Code Onset Dates Condition Status Problem Presence 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 Problem 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
--- OUTSIDE RECORDS SUMMARY | 2018-01-03 23:17 | XMS REPORT ---
:1935 Author Organization e[employer] Care Team Providers Name Role Phone CYN WHITTINGTONY Provider Role Unavailable Allergies, Adverse Reactions, Alerts Substance Reaction Event Type N.K.D.A. Info Not Available Non Drug Allergy Encounters Encounter Location Date Established Patient [facility], [facility] December 17, 2013 STRESS TEST [facility], [facility] December 17, 2013 Established Patient [facility], [facility] Mar 19, 2014 Problems Problem Type Condition ICD-9 Code Onset Dates Condition Status Assessment 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 Active [place] vessel Problem Diabetes mellitus type II 250.00 Active Problem Hypertension Heart Disease - w/o 402.10 Active CHF* Problem 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 Problem Chronic systolic heart failure 428.22 Active Problem S/P Automatic Defibrillator V45.02 Active Problem 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 Active [place] vessel Problem 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 Problem Hypercholesterolemia NOS 272.4 Active Problem Hypothyroidism (acquired) 244.9 Active Assessment Hypertension Heart Disease - w/o 402.10 Active CHF* Assessment S/P Automatic Defibrillator V45.02 Active Assessment Chronic systolic heart failure 428.22 Active Assessment 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 Medications Medication Code System Code Instructions Start End Date Status Dosage Date levothyroxine MULTUM 76001 200 mcg orally Active 1 cap(s) once a day nitroglycerin MULTUM 34978 0.4 mg November 26, Active 1 tab(s) sublingually every 2013 5 minutes gemfibrozil MULTUM 82185 600 mg orally 2 Active 1 tab(s) times a day omeprazole MULTUM 68128 20 mg orally once Active 1 tab(s) a day losartan MULTUM 10665 50 mg orally once Active 1 tab(s) a day Crestor MULTUM 35701 10 mg orally once Jan 27, Active 1 tab(s) a day (at bedtime) 2012 spironolactone MULTUM 77429 25 mg orally 3 Active 1 tab(s) times a day tamsulosin MULTUM 07075 0.4 mg orally bid Active 1 cap(s) ASA Unknown 0 81mg once a day Active 1 tab(s) Lantus MULTUM 99849 100 units/mL Active 34 units at subcutaneously bedtime furosemide MULTUM 19988 20 mg orally once Active 3 tsa a day [place] MULTUM 82992 1000 mg orally 2 Active 1 tab(s) [...]
--- OUTSIDE RECORDS SUMMARY | 2018-01-03 23:17 | XMS REPORT ---
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 Problem Hypercholesterolemia NOS 272.4 Active Problem Hypothyroidism (acquired) 244.9 Active Assessment S/P Automatic Defibrillator V45.02 Active Assessment Chronic systolic heart failure 428.22 Active Assessment 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 Medications Medication Code System Code Instructions Start End Date Status Dosage Date Humalog MULTUM 6127 100 units/mL Active 12 units subcutaneously before meals spironolactone MULTUM 55299 25 mg orally 3 Active 1 tab(s) times a day Lantus MULTUM 61611 100 units/mL Active 34 units at subcutaneously bedtime omeprazole MULTUM 59629 20 mg orally once Active 1 tab(s) a day levothyroxine MULTUM 93597 112 mcg orally Active 2 caps once a day Crestor MULTUM 88855 10 mg orally once Jan 27, Active 1 tab(s) a day (at bedtime) 2012 Lyrica MULTUM 20819 50 mg orally 2 Active 1 cap(s) times a day ASA Unknown 0 81mg once a day Active 1 tab(s) furosemide MULTUM 56159 20 mg orally tid Active 3 tsa tamsulosin MULTUM 66506 0.4 mg orally bid Active 1 cap(s) nitroglycerin MULTUM 83276 0.4 mg November 26 1 tab(s) sublingually every 2013 5 minutes losartan MULTUM 44138 50 mg orally once Active 1 tab(s) a day [place] MULTUM 00343 1000 mg orally 2 Active 1 tab(s) times a day gemfibrozil MULTUM 14008 600 mg orally 2 Active 1 tab(s) [...]
--- OUTSIDE RECORDS SUMMARY | 2018-01-03 23:17 | XMS REPORT ---
:1935 Author Organization eClinicalWorks Care Team Providers Name Role Phone PHYLLIS [facility] Provider Role Unavailable Encounters Encounter Location Date Established Patient [facility] Jun 25, 2014 [place] [facility] Aug 06, 2014 Unknown [facility] August 18, 2014 chest pain. 10/06 [facility] October 07, 2014 Established Patient [facility], [facility] December 17, 2013 STRESS TEST [facility] December 17, 2013 Established Patient [facility] Mar 19, 2014 Established Patient [facility] May 12, 2015 Established Patient [facility] Jan 18, 2015 possible heart attack [facility] May 11, 2015 Problems Problem Type Condition ICD-9 Code Onset Dates Condition Status Problem 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 [place] coronary artery with other forms of angina [...]
--- OUTSIDE RECORDS SUMMARY | 2018-01-03 23:17 | XMS REPORT ---
:1935 Author Organization eClinicalWorks Care Team Providers Name Role Phone YONAS AGUIRRE Provider Role Unavailable Allergies, Adverse Reactions, Alerts Substance Reaction Event Type N.K.D.A. Info Not Available Non Drug Allergy Encounters Encounter Location Date Established Patient [facility], [facility] Jun 25, 2014 [place] [facility] Aug 06, 2014 Unknown [facility], [facility] August 18, 2014 chest pain. 10/06 [facility], [facility] October 07, 2014 Established Patient [facility], [facility] December 17, 2013 STRESS TEST [facility], [facility] December 17, 2013 Established Patient [facility], [facility] Mar 19, 2014 Established Patient [facility], [facility] May 12, 2015 Established Patient [facility], [facility] Jan 18, 2015 possible heart attack [facility], [facility] May 11, 2015 Problems Problem Type Condition ICD-9 Code Onset Dates Condition Status Assessment Presence 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 Assessment 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 Assessment Hyperlipidemia, unspecified E78.5 Active Assessment 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 Problem 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 Problem 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 Problem Presence 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 Problem Hypothyroidism, unspecified E03.9 Active Assessment 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 Problem 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 Problem Hyperlipidemia, unspecified E78.5 Active Medications Medication Code System Code Instructions Start End Date Status Dosage Date nitroglycerin MULTUM 32048 0.4 mg November 26, Active 1 tab(s) sublingually every 2013 5 minutes omeprazole MULTUM 01256 20 mg orally once Active 1 tab(s) a day tamsulosin MULTUM 21645 0.4 mg orally bid Active 1 cap(s) spironolactone MULTUM 11047 25 mg orally 3 Active 1 tab(s) times a day levothyroxine MULTUM 65765 112 mcg orally Active 2 caps once a day carvedilol MULTUM 53318 12.5 mg orally 2 Active 1 tab(s) times a day furosemide MULTUM 64588 40 mg orally once Jun 26, Active 1 tab(s) a day 2014 Crestor MULTUM 48126 10 mg orally once Jan 27, Active 1 tab(s) a day (at bedtime) 2012 [place] MULTUM 11096 1000 mg orally 2 Active 1 tab(s) times a day gemfibrozil MULTUM 14570 600 mg orally 2 Active 1 tab(s) times a day losartan MULTUM 86688 50 mg orally once Active 1 tab(s) a day Lantus MULTUM 99883 100 units/mL Active 34 units at subcutaneously [...]
--- OUTSIDE RECORDS SUMMARY | 2018-01-03 23:18 | XMS REPORT ---
:1935 [facility] Address [address] [place] [address] Care Team Providers Name Role Phone KARI DUNCAN Unavailable Unavailable Problems This patient has no known problems. Allergies, Adverse Reactions, Alerts This patient has no known allergies or adverse reactions. Medications This patient has no known medications. Results Test Description Test Time Test Comments Text Results Atomic Results Result Comments PROTHROMBIN TIME/INR 2017-12-20 07:35:00 Test Item Value Reference Range Comments PROTIME (BEAKER) (test ulsb=158) 15.1 seconds 11.7-14.7 INR (BEAKER) (test amdr=006) 1.2 <=5.9 RECOMMENDED COUMADIN/WARFARIN INR THERAPY RANGESSTANDARD DOSE: 2.0 - 3.0 Includes: PROPHYLAXIS forvenous thrombosis, systemic embolization; TREATMENT for venous thrombosis and/or pulmonary embolus.HIGH RISK: Target INR is 2.5-3.5 for patients with mechanical heart valves.BASIC METABOLIC [id number] 07:33: 00 Test Item Value Reference Range Comments SODIUM (BEAKER) (test 142 meq/L 136-145 snmn=940) POTASSIUM (BEAKER) (test 4.1 meq/L 3.5-5.1 kpqf=400) CHLORIDE (BEAKER) (test 105 meq/L 98-107 vlxj=494) CO2 (BEAKER) (test 28 meq/L 22-29 qyip=956) BLOOD UREA NITROGEN 30 mg/dL 7-21 (BEAKER) (test psxl=869) CREATININE (BEAKER) (test 1.90 mg/dL 0.57-1.25 vhjo=774) GLUCOSE RANDOM (BEAKER) 118 mg/dL 70-105 (test exgm=252) CALCIUM (BEAKER) (test 9.1 mg/dL 8.4-10.2 abol=678) EGFR (BEAKER) (test 34 mL/min/1.73 sq m ESTIMATED GFR IS NOT ldba=9780) ACCURATE CREATININE CLEARANCE IN PREDICTING GLOMERULAR FILTRATION RATE. ESTIMATED GFR IS NOT APPLICABLE FOR DIALYSIS PATIENTS. CBC W/PLT COUNT & AUTO [id number] 07:16:00 Test Item Value Reference Range Comments WHITE BLOOD CELL COUNT (BEAKER) (test mhba=208) 4.6 K/ L 3.5-10.5 RED BLOOD CELL COUNT (BEAKER) (test elva=025) 3.33 M/ L 4.63-6.08 HEMOGLOBIN (BEAKER) (test xttm=709) 10.1 GM/DL 13.7-17.5 HEMATOCRIT (BEAKER) (test frdd=932) 31.9 % 40.1-51.0 MEAN CORPUSCULAR VOLUME (BEAKER) (test isnz=824) 95.8 fL 79.0-92.2 MEAN CORPUSCULAR HEMOGLOBIN (BEAKER) (test 30.3 pg 25.7-32.2 epdw=956) MEAN CORPUSCULAR HEMOGLOBIN CONC (BEAKER) (test 31.7 GM/DL 32.3-36.5 quce=510) RED CELL DISTRIBUTION WIDTH (BEAKER) (test 17.4 % 11.6-14.4 fvet=133) PLATELET COUNT (BEAKER) (test ukde=225) 99 K/CU MM 150-450 MEAN PLATELET VOLUME (BEAKER) (test eapx=157) 11.0 fL 9.4-12.4 NUCLEATED RED BLOOD CELLS (BEAKER) (test 0 /100 WBC 0-0 dugw=667) NEUTROPHILS RELATIVE PERCENT (BEAKER) (test 68 % rgmb=451) LYMPHOCYTES RELATIVE PERCENT (BEAKER) (test 20 % yxzt=685) MONOCYTES RELATIVE PERCENT (BEAKER) (test 9 % dday=114) EOSINOPHILS RELATIVE PERCENT (BEAKER) (test 2 % hphg=548) BASOPHILS RELATIVE PERCENT (BEAKER) (test 0 % nwnb=539) NEUTROPHILS ABSOLUTE COUNT (BEAKER) (test 3.12 K/ L 1.78-5.38 ecwz=869) LYMPHOCYTES ABSOLUTE COUNT (BEAKER) (test 0.93 K/ L 1.32-3.57 xgim=488) MONOCYTES ABSOLUTE COUNT (BEAKER) (test llgo=920) 0.40 K/ L 0.30-0.82 EOSINOPHILS ABSOLUTE COUNT (BEAKER) (test 0.09 K/ L 0.04-0.54 vild=443) BASOPHILS ABSOLUTE COUNT (BEAKER) (test bufr=529) 0.01 K/ L 0.01-0.08 IMMATURE GRANULOCYTES-RELATIVE PERCENT (BEAKER) 0 % 0-1 (test uoxo=3678)
--- OUTSIDE RECORDS SUMMARY | 2018-01-03 23:18 | XMS REPORT ---
:1935 Author Organization eClinicalWorks Care Team Providers Name Role Hugh [place]LLIS Provider Role Unavailable Allergies, Adverse Reactions, Alerts Substance Reaction Event Type N.K.D.A. Info Not Available Non Drug Allergy Encounters Encounter Location Date Established Patient [facility], [facility] Jun 25, 2014 [place] [facility], [facility] Aug 06, 2014 Unknown [facility], [facility] August 18, 2014 chest pain. 10/06 [facility], [facility] October 07, 2014 Established Patient [facility], [facility] December 17, 2013 STRESS TEST [facility], [facility] December 17, 2013 Established Patient [facility], [facility] Mar 19, 2014 Established Patient [facility], [facility] May 12, 2015 Established Patient [facility], [facility] Jan 18, 2015 possible heart attack [facility], [facility] May 11, 2015 chest pain [facility], [facility] December 28, 2015 Established Patient [facility], [facility] Apr 10, 2016 Pt in [facility] 05/18 [facility], [facility] May 18, 2015 [place] [facility] [facility], [facility] October 19, 2015 Problems Problem Type Condition ICD-9 Code Onset Dates Condition Status Assessment Presence 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 Assessment 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 Assessment Presence of coronary angioplasty Z95.5 Active implant and graft Problem 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 Problem Presence 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 Problem Presence of coronary angioplasty Z95.5 Active implant and graft Problem Hyperlipidemia, unspecified E78.5 Active Problem Hypothyroidism, unspecified E03.9 Active Problem 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 Problem 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 Assessment 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 Assessment Hyperlipidemia, unspecified E78.5 Active Assessment 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 Medications Medication Code System Code Instructions Start Date End Date Status Dosage carvedilol MULTUM 02949 3.125 orally 2 Active 2 tab(s) times a day tamsulosin MULTUM 34438 0.4 mg orally Active 1 cap(s) once a day nitroglycerin MULTUM 48099 0.4 mg Active 1 tab(s) sublingually every 5 minutes losartan MULTUM 98599 50 mg orally once Active 1 tab(s) a day Glumetza MULTUM 64691 500 mg orally 2 Active 1 tab(s) times a day ASA Unknown 0 81mg once a day Active 1 tab(s) clopidogrel MULTUM 90628 75 mg orally once Active 1 tab(s) a day Prilosec MULTUM 363 20 mg orally once Active 1 cap(s) a day Synthroid MULTUM 2205 200 mcg (0.2 mg) Active 1 tab(s) orally once a day spironolactone MULTUM 01624 25 mg orally 3 Active 1 tab(s) times a day furosemide MULTUM 11976 40 mg orally once Active 1 tab(s) a day atorvastatin MULTUM 57796 10 mg orally once Active 1 tab(s) a day (at bedtime) glimepiride MULTUM 02584 1 mg orally bid Active 1 tab(s) [place] MULTUM 98592 1000 mg orally 2 Active 1 tab(s) [...]
[2018-01-03 23:57] LABS: Absolute Lymphocytes (CBC) 1.2 K/uL (0.7-4.9); Absolute Monocytes 0.4 K/uL (0.1-1.3); Basophils % 0.6 % (0-1.3); Eosinophils % 1.7 % (0-4.4); Hematocrit 33.6 % (39.6-49.0); Lymphocytes % 20.7 % (15.3-44.8); MCH 32.7 pg (27.0-35.0); MCV 95.4 fL (80-100); MPV 9.4 fL (7.6-11.3); Monocytes % 6.9 % (3.3-12.3); RBC Red Blood Cell Count 3.53 M/uL (4.33-5.43)
[2018-01-04 00:01] LABS: Protime INR 1.08
[2018-01-04] MEDS ORDERED: IPRATROPIUM BROM 0.5MG/2.5ML ONE (00:01)
[2018-01-04] MEDS ORDERED: ALBUTEROL 2.5 MG/3 ML NEB SOL ONE (00:01)
[2018-01-04 00:19] LABS: Albumin 3.8 g/dL (3.4-5.0); Bilirubin Direct 0.3 mg/dL (0-0.2); Bilirubin Total 0.8 mg/dL (0.2-1.0); CKMB Creatine Kinase MB 2.5 ng/mL (0.3-3.6); Magnesium 2.5 mg/dL (1.8-2.4); Potassium 3.7 mmol/L (3.5-5.1); Protein, Total 7.3 g/dL (6.4-8.2)
[2018-01-04 00:44] LABS: Urine Blood TRACE (NEG); Urine Glucose NEGATIVE (NEG); Urine Protein 2+ (NEG); Urine Specific Gravity 1.025 (1.005-1.030); Urine pH 5.5 (5.0-7.0)
--- NOTE | 2018-01-04 01:11 | RAD REPORT ---
EXAM DESCRIPTION: RAD - Chest Single View - 01/03/2018 11:52 pm CLINICAL HISTORY: DYSPNEA Chest pain. COMPARISON: Chest Single View dated 12/30/2017; Chest Single View dated 10/19/2017 FINDINGS: Portable technique limits examination quality. Mild interstitial pulmonary edema is noted. The heart is mildly enlarged in size with a single lead p acer/ defibrillator device present. Changes of a prior CABG are noted.Sternotomy wires are present. IMPRESSION: Mild CHF/ volume overload pattern.
--- NOTE | 2018-01-04 01:38 | RAD REPORT ---
EXAM DESCRIPTION: CT - Head Brain Wo Cont - 01/04/2018 1:30 am CLINICAL HISTORY: HEADACHE COMPARISON: Head C Spine Mpr Wo Con dated 12/11/2017 TECHNIQUE: All CT scans are performed using dose optimization technique as appropriate and may inclu de automated exposure control or mA/KV adjustment according to patient size. FINDINGS: No intracranial hemorrhage, hydrocephalus or extra-axial fluid collection.Prominent genera lized brain atrophy is present with moderate periventricular and deep white matter chronic microvascu lar ischemic changes.No areas of brain edema or evidence of midline shift. The paranasal sinuses and mastoids are clear. The calvarium is intact. Heavy intracranial atheroscler osis noted. IMPRESSION: No acute intracranial abnormality.
--- NOTE | 2018-01-04 02:22 | EDPHYS ---
Physician Documentation [facility] Name: Blayne Ashford Age: 82 yrs Sex: Male : 1935 Arrival Date: 01/03/2018 Time: 23:05 Bed 2 Private MD: ED Physician Leodan Carrizales HPI: 01/04 00:20 This 82 yrs old Male presents to ER via EMS with complaints of Shortness Of cp Breath. Historical: - Allergies: 01/03 23:11 No Known Allergies; ao - Home Meds: 23:17 atorvastatin 40 mg Oral tab 2 tabs nightly [Active]; clopidogrel 75 mg Oral tab once tl2 daily [Active]; exelon patch daily [Active]; glimepiride 2 mg Oral tab once daily [Active]; isosorbide dinitrate 20 mg Oral tab 2 times per day [Active]; Januvia 50 mg Oral tab once daily [Active]; lactulose 10 gram/15 mL Oral soln 30 mL nightly [Active]; Lasix 40 mg Oral tab 2 times per day [Active]; levothyroxine 100 mcg tab 2 tabs once daily [Active]; losartan 25 mg Oral tab once daily [Active]; metoprolol succinate 25 mg Oral Tb24 twice a day [Active]; omeprazole 20 mg Oral TbEC daily [Active]; Ranexa 1,000 mg Oral Tb12 2 times per day [Active]; Risperdal 0.25 mg Oral tab daily [Active]; Risperdal 0.5 mg Oral tab nightly [Active]; spironolactone 25 mg Oral tab once daily [Active]; tamsulosin 0.4 mg Oral cp24 once daily [Active]; - PMHx: 23:11 angina pectoris; Anxiety; Atrial Fib; BPH; CAD; COPD; Dementia; Diabetes - NIDDM; HEART ao FAILURE; Hematuria; Hyperlipidemia; Hypertension; Hypothyroidism; MUSCLE WEAKNESS; Pacemaker; Pneumonia; - PSHx: 23:11 Heart stents; ao - Immunization history:: Adult Immunizations unknown. - Social history:: Smoking status: Patient/guardian denies using tobacco. - Ebola Screening: : Patient negative for fever greater than or equal to 101.5 degrees Fahrenheit, and additional compatible Ebola Virus Disease symptoms Patient denies exposure to infectious person Patient denies travel to an Ebola-affected area in the 21 days before illness onset. ROS: 01/04 00:25 Constitutional: Negative for body aches, chills, fever, poor PO intake. cp 00:25 Eyes: Negative for injury, pain, redness, and discharge. cp 00:25 ENT: Negative for drainage from ear(s), ear pain, sore throat, difficulty swallowing, difficulty handling secretions. 00:25 Neck: Negative for pain with movement, pain at rest, stiffness, swollen nodes. 00:25 Cardiovascular: Positive for edema, Negative for chest pain, palpitations. 00:25 Respiratory: Positive for shortness of breath, Negative for cough, wheezing. 00:25 Abdomen/GI: Negative for abdominal pain, nausea, vomiting, and diarrhea, black/tarry stool, rectal bleeding. 00:25 : Negative for urinary symptoms. 00:25 Skin: Negative for cellulitis, rash. 00:25 Neuro: Positive for headache, Negative for altered mental status, dizziness, syncope, near syncope, weakness. 00:25 All other systems are negative. Exam: 01/03 23:22 ECG was reviewed by the Attending Physician. cp 01/04 00:30 Constitutional: The patient appears in no acute distress, alert, awake, cp non-diaphoretic, non-toxic, well developed, well nourished. 00:30 Head/Face: Normocephalic, atraumatic. cp 00:30 Eyes: Periorbital structures: appear normal, Pupils: equal, round, and reactive to light and accomodation, Conjunctiva: normal, no exudate, no injection, Sclera: no appreciated abnormality, Lids and lashes: appear normal, bilaterally. 00:30 ENT: External ear(s): are unremarkable, Ear canal(s): are normal, clear, TM's: dullness, bilaterally, Nose: is normal, Mouth: Lips: moist, Oral mucosa: moist, Posterior pharynx: is normal, airway is patent, no erythema, no exudate, Voice: is normal. 00:30 Neck: ROM/movement: is normal, is supple, without pain, no range of motions limitations, no nuchal rigidity. 00:30 Chest/axilla: Inspection: normal, Palpation: is normal, no crepitus, no tenderness. 00:30 Cardiovascular: Rate: normal, Rhythm: regular, Pulses: Pulses are 2+ in right radial artery and left radial artery. Edema: bilateral lower leg, JVD: is not appreciated. 00:30 Respiratory: the patient does not display signs of respiratory distress, Respirations: labored breathing, is not present, intercostal retractions, are absent, shallow respirations, are not present, Breath sounds: decreased breath sounds, that are moderate, throughout, stridor, is not appreciated, wheezing: is not appreciated. 00:30 Abdomen/GI: Inspection: abdomen appears normal, Bowel sounds: active, all quadrants, Palpation: abdomen is soft and non-tender, in all quadrants, rebound tenderness, is not appreciated, involuntary guarding, is not appreciated. 00:30 Back: pain, is absent, ROM is normal. 00:30 Skin: cellulitis, is not appreciated, no rash present. 00:30 Neuro: Orientation: to person, situation, Mentation: lucid, able to follow commands, Cerebellar function: is grossly normal, Motor: moves all fours, strength is normal, Sensation: no obvious gross deficits. Vital Signs: 01/03 23:11 BP 156 / 85; Pulse 86; Resp 14; Pulse Ox 97% on R/A; Weight 72.57 kg (R); Height 5 ft. ao 3 in. (160.02 cm) (R); Pain 0/10; 01/04 01:07 BP 144 / 82; Pulse 84; Resp 20; Pulse Ox 95% on 3 lpm NC; mw2 01:28 BP 141 / 50; Pulse 70; Resp 18; Pulse Ox 100% on R/A; tl2 03:59 BP 137 / 67; Pulse 51; Resp 18; Pulse Ox 99% on 2 lpm NC; tl2 05:13 BP 143 / 61; Pulse 62; Resp 13; Pulse Ox 100% on 2 lpm NC; tl2 01/03 23:11 Body Mass Index 28.34 (72.57 kg, 160.02 cm) ao MDM: 01/03 23:42 Patient medically screened. cp 01/04 00:00 Differential diagnosis: asthma, Bronchitis CHF exacerbation, Chronic Obstructive cp Pulmonary Disease Myocardial Infarction pneumonia, pulmonary edema, Pulmonary Embolism reactive airway disease, Unstable Angina. 02:00 Data reviewed: vital signs, nurses notes, lab test result(s), EKG, radiologic studies, cp CT scan, plain films. 02:00 Test interpretation: by ED physician or midlevel provider: ECG, plain radiologic cp studies. 01/03 23:27 Order name: Basic Metabolic Panel; Complete Time: 01:06 tl2 01/04 01:06 Interpretation: Normal except: GLUC 174; BUN 24; CRE 1.70; GFR 39. cp 01/03 23:27 Order name: CBC with Diff; Complete Time: 01:06 tl2 01/04 01:06 Interpretation: Normal except: WBC 5.7; RBC 3.53; HGB 11.5; HCT 33.6; PLT 133; RDW 16.7.cp 01/03 23:27 Order name: Ckmb; Complete Time: 01:06 tl2 01/03 23:27 Order name: CPK; Complete Time: 01:06 tl2 01/03 23:27 Order name: LFT's; Complete Time: 01:06 tl2 01/03 23:27 Order name: Magnesium; Complete Time: 01:06 tl2 01/03 23:27 Order name: NT PRO-BNP; Complete Time: 01:06 tl2 01/04 01:34 Interpretation: Abnormal: NT PRO-BNP 7096. cp 01/03 23:27 Order name: PT-INR; Complete Time: 01:06 tl2 01/03 23:27 Order name: Ptt, Activated; Complete Time: 01:06 tl2 01/03 23:27 Order name: Troponin (emerg Dept Use Only); Complete Time: 01:06 tl2 01/03 23:27 Order name: XRAY Chest (1 view); Complete Time: 01:34 tl2 01/03 23:50 Order name: CT Head Brain wo Cont; Complete Time: 01:55 cp 01/04 00:00 Order name: Urine Dipstick--Ancillary (enter results); Complete Time: 01:06 ms 01/04 01:07 Interpretation: Normal except: UBLD TRACE; UPROT 2+. cp 01/03 23:27 Order name: EKG; Complete Time: 23:28 tl2 01/03 23:27 Order name: Cardiac monitoring; Complete Time: 23:28 tl2 01/03 23:27 Order name: EKG - Nurse/Tech; Complete Time: 23:28 tl2 01/03 23:27 Order name: IV Saline Lock; Complete Time: 23:28 tl2 01/03 23:27 Order name: Labs collected and sent; Complete Time: 23:29 tl2 01/03 23:27 Order name: O2 Per Protocol; Complete Time: 23:29 tl2 01/03 23:27 Order name: O2 Sat Monitoring; Complete Time: 23:29 tl2 01/03 23:27 Order name: Urine Dipstick-Ancillary (obtain specimen); Complete Time: 23:29 tl2 EC/27 23:22 Rate is 84 beats/min. Rhythm is regular. OK interval is normal. QRS interval is cp prolonged at 106 msec. QT interval is normal. Interpreted by me. Reviewed by me. Administered Medications: 01/04 00:03 Drug: Albuterol - atroVENT (3:1) (2.5 mg - 0.5 mg) 3 ml Route: Nebulizer; ao 00:07 Follow up: Response: No adverse reaction ao 03:13 Drug: Lasix 40 mg Route: IVP; Site: right wrist; tl2 05:46 Follow up: Response: No adverse reaction; Marked relief of symptoms tl2 Disposition: 06:41 Co-signature as Attending Physician, Leodan Carrizales MD. [email or web address] Disposition: 01/04/18 02:21 Hospitalization ordered by Eugene Sheehan for Inpatient Admission. Preliminary diagnosis are Unspecified combined systolic (congestive) and diastolic (congestive) heart failure, Pulmonary edema, Shortness of breath. - Bed requested for Telemetry/MedSurg (Inpatient). - Status is Inpatient Admission. tl2 - Condition is Stable. - Problem is an acute exacerbation. - Symptoms have improved. UTI on Admission? No Signatures: Dispatcher [employer] EDMylene Springer RN RN kl Lam, Pin, MD MD pkl Ramsey Lopez PA PA cp Ortiz, Alex, RN RN ao Knox, Taylor, RN RN tl2 Corrections: (The following items were deleted from the chart) 03 02:21 Hospitalization Ordered by Eugene Sheehan MD for Inpatient Admission. Preliminary luis diagnosis is Unspecified combined systolic (congestive) and diastolic (congestive) heart failure; Pulmonary edema; Shortness of breath. Bed requested for Telemetry/MedSurg (Inpatient). Status is Inpatient Admission. Condition is Stable. Problem is an acute exacerbation. Symptoms have improved. UTI on Admission? No. cp 05:46 03:27 01/04/2018 02:21 Hospitalization Ordered by Eugene Sheehan MD for Inpatient tl2 Admission. Preliminary diagnosis is Unspecified combined systolic (congestive) and diastolic (congestive) heart failure; Pulmonary edema; Shortness of breath. Bed requested for Telemetry/MedSurg (Inpatient). Status is Inpatient Admission. Condition is Stable. Problem is an acute exacerbation. Symptoms have improved. UTI on Admission? No. kl
--- NOTE | 2018-01-04 02:22 | ER ---
Nurse's Notes [facility] Name: Blayne Ashford Age: 82 yrs Sex: Male : 1935 Arrival Date: 01/03/2018 Time: 23:05 Bed 2 Private MD: Diagnosis: Unspecified combined systolic (congestive) and diastolic (congestive) heart failure;Pulmonary edema;Shortness of breath Presentation: 01/03 23:06 Presenting complaint: EMS states: "Patient is from [facility] who called ao to report patient was having a respiratory distress. Patient ambulatory on scene with no symptoms of respiratory distress. Patient complained of a headache and shortness of breath. Transition of care: patient was not received from another setting of care. Onset of symptoms is unknown. Risk Assessment: Do you want to hurt yourself or someone else? Patient reports no desire to harm self or others. Initial Sepsis Screen: Does the patient meet any 2 criteria? No. Patient's initial sepsis screen is negative. Does the patient have a suspected source of infection? No. Patient's initial sepsis screen is negative. Care prior to arrival: None. 23:06 Method Of Arrival: EMS: [facility] ao 23:06 Acuity: LASHANDA 3 ao Triage Assessment: 23:59 Respiratory: Onset: The symptoms/episode began/occurred tl2 23:59 General: Behavior is calm, cooperative, appropriate for age. tl2 01/04 00:00 General: Appears. tl2 Historical: - Allergies: 01/03 23:11 No Known Allergies; ao - Home Meds: 23:17 atorvastatin 40 mg Oral tab 2 tabs nightly [Active]; clopidogrel 75 mg Oral tab once tl2 daily [Active]; exelon patch daily [Active]; glimepiride 2 mg Oral tab once daily [Active]; isosorbide dinitrate 20 mg Oral tab 2 times per day [Active]; Januvia 50 mg Oral tab once daily [Active]; lactulose 10 gram/15 mL Oral soln 30 mL nightly [Active]; Lasix 40 mg Oral tab 2 times per day [Active]; levothyroxine 100 mcg tab 2 tabs once daily [Active]; losartan 25 mg Oral tab once daily [Active]; metoprolol succinate 25 mg Oral Tb24 twice a day [Active]; omeprazole 20 mg Oral TbEC daily [Active]; Ranexa 1,000 mg Oral Tb12 2 times per day [Active]; Risperdal 0.25 mg Oral tab daily [Active]; Risperdal 0.5 mg Oral tab nightly [Active]; spironolactone 25 mg Oral tab once daily [Active]; tamsulosin 0.4 mg Oral cp24 once daily [Active]; - PMHx: 23:11 angina pectoris; Anxiety; Atrial Fib; BPH; CAD; COPD; Dementia; Diabetes - NIDDM; HEART ao FAILURE; Hematuria; Hyperlipidemia; Hypertension; Hypothyroidism; MUSCLE WEAKNESS; Pacemaker; Pneumonia; - PSHx: 23:11 Heart stents; ao - Immunization history:: Adult Immunizations unknown. - Social history:: Smoking status: Patient/guardian denies using tobacco. - Ebola Screening: : Patient negative for fever greater than or equal to 101.5 degrees Fahrenheit, and additional compatible Ebola Virus Disease symptoms Patient denies exposure to infectious person Patient denies travel to an Ebola-affected area in the 21 days before illness onset. Screenin:14 Abuse screen: Denies threats or abuse. Nutritional screening: No deficits noted. tl2 Tuberculosis screening: No symptoms or risk factors identified. Fall Risk None identified. Assessment: 23:17 Pain: Complains of pain in headache. Neuro: Level of Consciousness is awake, alert, tl2 obeys commands, Oriented to person, place, time, situation. Cardiovascular: Denies chest pain, Rhythm is atrial flutter. Respiratory: Airway. Respiratory: Reports shortness of breath Airway is patent Respiratory effort is even, unlabored, Respiratory pattern is regular, symmetrical, Breath sounds are clear bilaterally. GI: No signs and/or symptoms were reported involving the gastrointestinal system. : No signs and/or symptoms were reported regarding the genitourinary system. Derm: Skin is pink, warm \\T\\ dry. 01/04 01:28 Reassessment: Patient appears in no apparent distress at this time. Patient and/or tl2 family updated on plan of care and expected duration. Pain level reassessed. Patient is alert, oriented x 3, equal unlabored respirations, skin warm/dry/pink. Patient states feeling better. 03:00 Reassessment: Patient appears in no apparent distress at this time. Patient and/or tl2 family updated on plan of care and expected duration. Pain level reassessed. Patient is alert, oriented x 3, equal unlabored respirations, skin warm/dry/pink. 04:10 Reassessment: Patient appears in no apparent distress at this time. Patient and/or tl2 family updated on plan of care and expected duration. Pain level reassessed. Pt appears to be sleeping, RR even and unlabored. Awaiting orders. Vital Signs: 01/03 23:11 BP 156 / 85; Pulse 86; Resp 14; Pulse Ox 97% on R/A; Weight 72.57 kg (R); Height 5 ft. ao 3 in. (160.02 cm) (R); Pain 0/10; 01/04 01:07 BP 144 / 82; Pulse 84; Resp 20; Pulse Ox 95% on 3 lpm NC; mw2 01:28 BP 141 / 50; Pulse 70; Resp 18; Pulse Ox 100% on R/A; tl2 03:59 BP 137 / 67; Pulse 51; Resp 18; Pulse Ox 99% on 2 lpm NC; tl2 05:13 BP 143 / 61; Pulse 62; Resp 13; Pulse Ox 100% on 2 lpm NC; tl2 01/03 23:11 Body Mass Index 28.34 (72.57 kg, 160.02 cm) ao Vitals: 05:13 Cardiac Rhythm Assessment Atrial flutter. tl2 ED Course: 01/03 23:05 Patient arrived in ED. ao 23:09 Triage completed. ao 23:09 Arm band placed on right wrist. Patient placed in an exam room, on a stretcher, in a ao wheelchair, on pulse oximetry, Patient notified of wait time. 23:14 Inserted saline lock: 20 gauge in right forearm, using aseptic technique. Blood tl2 collected. 23:41 Ramsey Lopez PA is PHCP. cp 23:41 Leodan Carrizales MD is Attending Physician. cp 23:49 X-ray completed. Portable x-ray completed in exam room. Patient tolerated procedure kw well. 23:50 XRAY Chest (1 view) In Process Unspecified. EDMS 23:59 Karen Gonzalez, CARLEY is Primary Nurse. tl2 01/04 00:00 Patient has correct armband on for positive identification. Placed in gown. Bed in low tl2 position. Call light in reach. Side rails up X 1. 01:30 CT Head Brain wo Cont In Process Unspecified. EDMS 01:30 CT completed. Patient tolerated procedure well. Patient moved back from CT. kw1 02:20 Eugene Sheehan MD is Hospitalizing Provider. cp 05:11 No provider procedures requiring assistance completed. Patient admitted, IV remains in tl2 place. Administered Medications: 00:03 Drug: Albuterol - atroVENT (3:1) (2.5 mg - 0.5 mg) 3 ml Route: Nebulizer; ao 00:07 Follow up: Response: No adverse reaction ao 03:13 Drug: Lasix 40 mg Route: IVP; Site: right wrist; tl2 05:46 Follow up: Response: No adverse reaction; Marked relief of symptoms tl2 Output: 04:10 Urine: 600ml (Voided); Total: 600ml. tl2 Outcome: 02:21 Decision to Hospitalize by Provider. cp 05:11 Admitted to Tele accompanied by tech, via stretcher, room 401, with oxygen, with chart, tl2 Report called to CARLEY España 05:11 Condition: stable 05:11 Discharge instructions given to patient, Instructed on the need for admit. 05:46 Patient left the ED. tl2 Signatures: Dispatcher [employer] EDMS Jelena Boyd Corey, PA PA cp Ortiz, Alex RN RN Karen Rand RN RN tl2 Mylene Farris kw1 Maya Elias mw2
[2018-01-04] MEDS ORDERED: FUROSEMIDE 40 MG/4 ML VIAL ONE (03:05)
--- NOTE | 2018-01-04 03:52 | P.HP ---
Certification for Inpatient Patient admitted to: Inpatient With expected LOS: >2 Midnights Practitioner: I am a practitioner with admitting privileges, knowledge of patient current condition, hospital course, and medical plan of care. Services: Services provided to patient in accordance with Admission requirements found in Title 42 Section 412.3 of the Code of Federal Regulations Patient History Date of Service: 01/04/18 Reason for admission: CHF exacerbation History of Present Illness: Mr. Ashford is an 82-year-old male, [facility], with history of dementia, chronic systolic CHF with EF 25-29%, atrial fibrillation, status post pacemaker placement, who was recently admitted to the hospital due to CHF exacerbation. At that time tab builder team evaluated the patient and they did not recommend farther diagnostic test, however his medication was adjusted before to go home. At this time, the patient was transferred to ED due to progressive shortness of breath starting today. The patient was also complaining of headache. He denied any chest pain. No history of cough, fever or chills. At arrival in the ER his O2 sat was 97% in room air, afebrile, BP 156/85, HR 86. Lab work shows normal WBC count, elevated creatinine 1.7 (about his baseline), elevated BNP similar to previous admission. Allergies No Known Allergies Allergy (Verified 10/19/17 16:09) Home Medications: Atorvastatin Calcium [Lipitor] 80 mg PO BEDTIME 10/20/17 Clopidogrel Bisulfate [Clopidogrel] 75 mg PO DAILY 10/20/17 Furosemide [Lasix*] 40 mg PO BID 10/20/17 Glimepiride [Amaryl*] 2 mg PO DAILY 10/20/17 Isosorbide Dinitrate 20 mg PO BID 10/20/17 Lactulose [Enulose] 30 ml PO BEDTIME 10/20/17 Levothyroxine [Synthroid*] 200 mcg PO DAILY 10/20/17 Losartan Potassium 25 mg PO DAILY 10/20/17 Omeprazole 20 mg PO DAILY 10/20/17 Ranolazine [Ranexa] 1,000 mg PO BID 10/20/17 Rivastigmine Patch [Exelon 9.5 mg Patch] 13.3 mg TD DAILY 10/20/17 Sitagliptin Phosphate [Januvia*] 50 mg PO DAILY 10/20/17 Spironolactone [Aldactone*] 25 mg PO DAILY 10/20/17 Tamsulosin [Flomax*] 0.4 mg PO DAILY 10/20/17 risperiDONE [Risperdal 0.25 MG TAB*] 0.25 mg PO BEDTIME 10/20/17 Metoprolol Tartrate [Lopressor*] 25 mg PO BID #60 tab 10/22/17 Cholecalciferol (Vitamin D3) [Vitamin D3] 1 cap PO DAILY 12/31/17 Ergocalciferol (Vitamin D2) [Vitamin D2] 1 cap PO DAILY 12/31/17 - Past Medical/Surgical History Diabetic: Yes -: NIDDM -: PAcemaker -: afib per hx -: CAD -: chronic systolic CHF EF 25-29% -: Dementia -: hypothyroidism -: HTN -: Pneumonia -: COPD -: BPH -: angina -: pacemaker -: triple bypass - Family History Father -: Heart disease - Social History Alcohol use: No CD- Drugs: No Caffeine use: Yes Review of Systems 10-point ROS is otherwise unremarkable Physical Examination - Physical Exam General: Alert, In no apparent distress HEENT: Atraumatic, PERRLA, Mucous membr. moist/pink, EOMI, Sclerae nonicteric Neck: Supple, 2+ carotid pulse no bruit, No LAD, Without JVD or thyroid abnormality Respiratory: Diminished, Crackles/rales (Bibasilar rales) Cardiovascular: Regular rate/rhythm, Normal S1 S2 Gastrointestinal: Normal bowel sounds, No tenderness Musculoskeletal: No tenderness Integumentary: No rashes Neurological: Normal speech, Normal strength at 5/5 x4 extr, Normal tone, Normal affect, Dementia Lymphatics: No axilla or inguinal lymphadenopathy - Studies Laboratory Data (last 24 hrs) 01/03/18 23:30: PT 12.8 H, INR 1.08, APTT 34.1 01/03/18 23:30: WBC 5.7 D, Hgb 11.5 L, Hct 33.6 L, Plt Count 133 L D 01/03/18 23:30: Sodium 138, Potassium 3.7, BUN 24 H, Creatinine 1.70 H, Glucose 174 H, Magnesium 2.5 H, Total Bilirubin 0.8, AST 21, ALT 17, Alkaline Phosphatase 109 Assessment and Plan - Problems (Diagnosis) (1) Acute on chronic systolic (congestive) heart failure Onset Date: 12/31/17 Current Visit: No Status: Acute (2) Atrial flutter Current Visit: No Status: Acute Qualifiers: Atrial flutter type: unspecified Qualified Code(s): I48.92 - Unspecified atrial flutter (3) Diabetes mellitus Onset Date: 10/21/17 Current Visit: No Status: Acute Qualifiers: Diabetes mellitus type: type 2 Diabetes mellitus shelter insulin use: without termite treater helper use Diabetes mellitus complication status: with other specified complication Qualified Code(s): E11.69 - Type 2 diabetes mellitus with other specified complication (4) Chronic renal disease Onset Date: 12/31/17 Current Visit: No Status: Chronic Qualifiers: Chronic kidney disease stage: stage 3 (moderate) Qualified Code(s): N18.3 - Chronic kidney disease, stage 3 (moderate) (5) Dementia Onset Date: 12/31/17 Current Visit: No Status: Chronic Qualifiers: Dementia type: unspecified type Dementia behavioral disturbance: without behavioral disturbance Qualified Code(s): F03.90 - Unspecified dementia without behavioral disturbance (6) Hyperlipidemia Onset Date: 10/21/17 Current Visit: No Status: Chronic Qualifiers: Hyperlipidemia type: unspecified Qualified Code(s): E78.5 - Hyperlipidemia , unspecified (7) Hypothyroidism Onset Date: 10/21/17 Current Visit: No Status: Chronic Qualifiers: Hypothyroidism type: unspecified Qualified Code(s): E03.9 - Hypothyroidism , unspecified - Plan The patient will be admitted to the hospital due to acute on chronic systolic CHF. Will order IV furosemide, consult tab builder for further recommendation. The patient has improved his condition already, and remained hemodynamically stable, without distress. Will resume his home medication once verified. - Advance Directives Does patient have a Living Will: Yes Does patient have a Durable POA for Healthcare: Yes - Code Status/Comfort Care Code Status Assessed: Yes Code Status: Full Code
[2018-01-04] MEDS ORDERED: ACETAMINOPHEN 500 MG TAB PO PRN (05:36)
[2018-01-04] MEDS ORDERED: ONDANSETRON 4 MG/2 ML VIAL IV PRN (05:36)
[2018-01-04 06:46] VITALS: BMI 24.2
[2018-01-04] MEDS ORDERED: ENOXAPARIN 30 MG/0.3 ML SQ SCH (07:00)
--- NOTE | 2018-01-04 07:16 | EKG ---
Test Date: 2018-01-03 Test Time: 23:15:20 Director Of Mobile Marketing: MITCHELL MEASUREMENT RESULTS: Intervals: Rate: 84 TN: 158 QRSD: 106 QT: 374 QTc: 441 [place]: P: 63 TN: 158 QRS: -8 T: 203 INTERPRETIVE STATEMENTS: Atrial flutter with variable AV block with occasional premature ventricular complexes cannot rule out anterior infarct, age undetermined ST & T wave abnormality, consider inferolateral ischemia Abnormal ECG Compared to ECG 12/30/2017 21:24:44 no significant change from previous ECG Electronically Signed On 01-04-18 07:15:37 CDT by Phil Diaz
[2018-01-04] MEDS ORDERED: LEVOTHYROXINE SOD 0.1 MG TAB PO SCH (07:30)
[2018-01-04] MEDS: INSULIN -REGULAR HUMAN 50 UNIT/0.5 ML ML SQ SCH ×2 (07:30→11:30)
--- NOTE | 2018-01-04 08:54 | P.PN ---
Subjective Date of Service: 01/04/18 Primary Care Provider: custodial Chief Complaint: CHF exacerbation Subjective: Improving (Doing well.), Demented Physical Examination - Vital Signs Temperature: 97.9 F Blood Pressure: 120/51 Pulse: 56 Respirations: 16 Pulse Ox (%): 96 - Physical Exam General: Alert, Demented HEENT: Atraumatic Neck: Supple Respiratory: Clear to auscultation bilaterally, Normal air movement Cardiovascular: Normal pulses, Regular rate/rhythm Gastrointestinal: Normal bowel sounds, Soft and benign, Non-distended, No tenderness, No masses, No rebound, No guarding Musculoskeletal: No erythema, No tenderness, No warmth Integumentary: Tenderness/swelling (one plus edema to the lower ext) Neurological: Normal speech, Normal strength at 5/5 x4 extr, Normal tone, Dementia - Studies Laboratory Data (last 24 hrs) 01/03/18 23:30: PT 12.8 H, INR 1.08, APTT 34.1 01/03/18 23:30: WBC 5.7 D, Hgb 11.5 L, Hct 33.6 L, Plt Count 133 L D 01/03/18 23:30: Sodium 138, Potassium 3.7, BUN 24 H, Creatinine 1.70 H, Glucose 174 H, Magnesium 2.5 H, Total Bilirubin 0.8, AST 21, ALT 17, Alkaline Phosphatase 109 Medications List Reviewed: Yes Assessment & Plan - Problems (Diagnosis) (1) CHF (congestive heart failure) Current Visit: Yes Status: Acute Plan: Patient is doing well this time. Patient with ejection fraction of 25%. Patient with mild acute on chronic CHF. Patient is taking Lasix and Aldactone at the assisted. I anticipate discharge today if okay with cardiology. Oxygen level remained stable without any oxygen. Will check chest x-ray. Adjustments in medication may be required at discharge. Will increase Aldactone to 25 mg 1 pill twice daily. Patient will need continue with a 1500 cc per day fluid restriction and low-salt diet at the assisted. Case discussed with his medical proper contracts attorney. Patient is DNR. Patient had cardiac stress test done in October which showed no stress-induced ischemia. He was in the hospital at that time for chest pain. Patient with dementia, hypertension, diabetes, CAD, BPH and hypothyroidism. Will check tsh and free T4 today. Qualifiers: Heart failure type: systolic Heart failure chronicity: acute on chronic Qualified Code(s): I50.23 - Acute on chronic systolic (congestive) heart failure (2) Dementia Onset Date: 12/31/17 Current Visit: No Status: Chronic Plan: Will continue with his medication. Qualifiers: Dementia type: unspecified type Dementia behavioral disturbance: without behavioral disturbance Qualified Code(s): F03.90 - Unspecified dementia without behavioral disturbance (3) BPH (benign prostatic hyperplasia) Onset Date: 12/31/17 Current Visit: No Status: Chronic Plan: Will continue with his medication. Qualifiers: Lower urinary tract symptom presence: unspecified whether lower urinary tract symptoms present Qualified Code(s): N40.0 - Benign prostatic hyperplasia without lower urinary tract symptoms (4) Chronic renal disease Onset Date: 12/31/17 Current Visit: No Status: Chronic Plan: Patient with chronic renal disease. Currently stable this time. Qualifiers: Chronic kidney disease stage: stage 3 (moderate) Qualified Code(s): N18.3 - Chronic kidney disease, stage 3 (moderate) (5) CAD (coronary artery disease) Onset Date: 12/31/17 Current Visit: No Status: Chronic Plan: Patient with history of CAD. October 2017 stress test showed no stress-induced ischemia. 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 Will continue with his medication at discharge. Currently on sliding scale. Qualifiers: Diabetes mellitus type: type 2 Diabetes mellitus extermination inspector insulin use: without extermination inspector use Diabetes mellitus complication status: with other specified complication Qualified Code(s): E11.69 - Type 2 diabetes mellitus with other specified complication (7) Hypothyroidism Onset Date: 10/21/17 Current Visit: No Status: Chronic Plan: Will check tsh and free T4. Will continue with his medication. Qualifiers: Hypothyroidism type: unspecified Qualified Code(s): E03.9 - Hypothyroidism , unspecified (8) Hyperlipidemia Onset Date: 10/21/17 Current Visit: No Status: Chronic Plan: Will continue with his medication. Qualifiers: Hyperlipidemia type: unspecified Qualified Code(s): E78.5 - Hyperlipidemia , unspecified (9) History of pacemaker Current Visit: Yes Status: Chronic Plan: Pacemaker in place. (10) Atrial flutter Current Visit: No Status: Chronic Plan: Patient with history of atrial fibrillation and flutter. Patient with pacemaker in place. Cardiology consulted to further evaluate CHF. Anticipate possible discharge later today to assisted. Will discuss with cardiology. Qualifiers: Atrial flutter type: unspecified Qualified Code(s): I48.92 - Unspecified atrial flutter Discharge Plan: Intermediate Plan to discharge in: 24 Hours - Code Status/Comfort Care Code Status Assessed: Yes (Discuss with medical power of contracts attorney. Patient DNR) Code Status: Do Not Resuscitate Time Spent Managing Pts Care (In Minutes): 55
[2018-01-04] MEDS ORDERED: LOSARTAN POTASSIUM 50 MG TABLET PO SCH (09:00)
[2018-01-04] MEDS ORDERED: EXELON 13.3 MG TOP SCH (09:00)
[2018-01-04] MEDS ORDERED: METOPROLOL TAR 25 MG TAB PO SCH (09:00)
[2018-01-04] MEDS ORDERED: FUROSEMIDE 40 MG/4 ML VIAL IV SCH (09:00)
[2018-01-04] MEDS ORDERED: SPIRONOLACTONE 25 MG TABLET PO SCH ×2 (09:00)
[2018-01-04] MEDS ORDERED: ISOSORBIDE DINIT 20 MG TAB PO SCH (09:00)
[2018-01-04] MEDS ORDERED: CLOPIDOGREL 75 MG TABLET PO SCH (09:00)
[2018-01-04] MEDS ORDERED: TAMSULOSIN 0.4 MG SR CAP PO SCH (09:00)
[2018-01-04 09:46] LABS: Thyroid Stimulating Hormone 29.4 uIU/mL (0.36-3.74)
--- NOTE | 2018-01-04 12:23 | P.DS ---
Admission Date: 01/04/18 Discharge Date: 01/04/18 Primary Care Provider: skilled nursing Disposition: [facility]SFER TO [facility] Discharge Condition: GOOD Reason for Admission: CHF exacerbation Consultations: Cardiology-Dr. Diaz - Problems (1) CHF (congestive heart failure) Current Visit: Yes Status: Acute Qualifiers: Heart failure type: systolic Heart failure chronicity: acute on chronic Qualified Code(s): I50.23 - Acute on chronic systolic (congestive) heart failure (2) Dementia Onset Date: 12/31/17 Current Visit: No Status: Chronic Qualifiers: Dementia type: unspecified type Dementia behavioral disturbance: without behavioral disturbance Qualified Code(s): F03.90 - Unspecified dementia without behavioral disturbance (3) BPH (benign prostatic hyperplasia) Onset Date: 12/31/17 Current Visit: No Status: Chronic Qualifiers: Lower urinary tract symptom presence: unspecified whether lower urinary tract symptoms present Qualified Code(s): N40.0 - Benign prostatic hyperplasia without lower urinary tract symptoms (4) Chronic renal disease Onset Date: 12/31/17 Current Visit: No Status: Chronic Qualifiers: Chronic kidney disease stage: stage 3 (moderate) Qualified Code(s): N18.3 - Chronic kidney disease, stage 3 (moderate) (5) CAD (coronary artery disease) Onset Date: 12/31/17 Current Visit: No Status: Chronic Qualifiers: Coronary Disease-Associated Artery/Lesion type: bypass graft, autologous vein Associated angina: with unstable angina Qualified Code(s): I25.710 - 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 (6) Diabetes mellitus Onset Date: 10/21/17 Current Visit: No Status: Chronic Qualifiers: Diabetes mellitus type: type 2 Diabetes mellitus manager long term care insulin use: without senior care use Diabetes mellitus complication status: with other specified complication Qualified Code(s): E11.69 - Type 2 diabetes mellitus with other specified complication (7) Hypothyroidism Onset Date: 10/21/17 Current Visit: No Status: Chronic Qualifiers: Hypothyroidism type: unspecified Qualified Code(s): E03.9 - Hypothyroidism , unspecified (8) Hyperlipidemia Onset Date: 10/21/17 Current Visit: No Status: Chronic Qualifiers: Hyperlipidemia type: unspecified Qualified Code(s): E78.5 - Hyperlipidemia , unspecified (9) History of pacemaker Current Visit: Yes Status: Chronic (10) Atrial flutter Current Visit: No Status: Chronic Qualifiers: Atrial flutter type: unspecified Qualified Code(s): I48.92 - Unspecified atrial flutter (11) GERD (gastroesophageal reflux disease) Current Visit: Yes Status: Chronic Qualifiers: Esophagitis presence: esophagitis presence not specified Qualified Code(s) : K21.9 - Gastro-esophageal reflux disease without esophagitis Brief History of Present Illness: 82-year-old male presented to the emergency room with mild shortness of breath. Patient with history of CHF, atrial fibrillation, hypertension, diabetes. Patient lives at the residential. He also has severe dementia. Patient was evaluated the emergency room. Patient given diuretic therapy. Vital signs remained stable. He was admitted for observation Hospital Course: During the course of his stay his condition improved. Patient with acute on chronic systolic CHF with ejection fraction of 25%. Patient evaluated by Cardiology. No intervention was needed. Patient with recent hospitalization with recent change in medication. At discharge he will need to continue with a 1500 cc per day fluid restriction and low-salt diet. At discharge he will continue with Lasix 40 mg 1 pill twice daily. Aldactone has been increased to 25 mg 1 pill twice daily. He will need to have his weight monitored closely. If his weight increases by more than 5 lb or increase in edema is noted then medications may need to be adjusted. This can be done at the residential. Patient has hypertension. He will continue with his medication-metoprolol 25 mg 1 pill twice daily and losartan 25 mg daily. Recommend is to maintain blood pressures less 150/80. Further adjustment can be done by his PCP. Patient has diabetes. Patient may continue with his medication-glimepiride 2 mg 1 pill daily and Januvia 50 mg daily. Patient will need to be monitored for hypoglycemia since he is taking glimepiride. Medications may need to be further adjusted in the future. Recommendation is to maintain blood sugars less 140 fasting and less than 200 after meals. Further adjustment can be done by his PCP. Patient has dementia. Patient will continue with his medication-Exelon patch daily and risperidone 0.25 mg at bedtime for agitation. Patient has atrial fibrillation. He will continue with his rate control medication-metoprolol 25 mg 1 pill twice daily. Patient is not on chronic anti coagulation therapy due to risk of fall and bleeding. This can be further monitored as an outpatient by Cardiology. Recommendation is for the patient follow up with cardiology in 2-4 weeks to monitor his progress. Patient has CAD with previous pacemaker. Patient will continue with Plavix 75 mg 1 pill daily, Imdur or 20 mg 1 pill twice daily, Ranexa 1000 mg 1 pill twice daily. Recommendations for the patient follow up with cardiology as directed. Patient has hyperlipidemia. Patient continue with Lipitor 80 mg 1 pill daily. Patient has hypothyroidism. Patient continue with Synthroid 200 mcg daily. It appears that his medication was recently adjusted. Recommendation is to recheck tsh/T4 in 4 weeks to monitor and adjust appropriately. This can be done at the residential. Patient has chronic renal disease. Future medications will need to be renally dosed. Recommend no further use of nonsteroidal anti-inflammatories in the future. Recommendations for the patient to follow up with nephrology as directed. Recommendation to recheck lab-BMP in 1 week to monitor his progress. Patient has anemia of chronic disease. This can be monitored closely as an outpatient. Patient has GERD. Patient continue with Prilosec 20 mg 1 pill once daily. Case discussed in detail with his medical power of estate planning attorney. Advanced directives were addressed in detail. Patient is DNR. Vital Signs/Physical Exam: Temp Pulse Resp BP Pulse Ox 97.9 F 56 16 120/51 L 96 01/04/18 08:59 01/04/18 08:59 01/04/18 08:59 01/04/18 08:59 01/04/18 08:59 General: Alert, In no apparent distress, Demented HEENT: Atraumatic Neck: Supple Respiratory: Clear to auscultation bilaterally, Normal air movement Cardiovascular: Irregular heart rate/rhythm (Atrial fibrillation, rate controlled) Gastrointestinal: Normal bowel sounds, Soft and benign, Non-distended, No tenderness, No masses, No rebound, No guarding Musculoskeletal: No erythema, No tenderness, No warmth Integumentary: Tenderness/swelling (Mild edema to the lower extremities bilateral) Neurological: Normal speech, Normal strength at 5/5 x4 extr, Normal tone, Dementia Laboratory Data at Discharge: WBC 5.7 K/uL (4.3-10.9) D 01/03/18 23:30 Hgb 11.5 g/dL (13.6-17.9) L 01/03/18 23:30 Hct 33.6 % (39.6-49.0) L 01/03/18 23:30 Plt Count 133 K/uL (152-406) L D 01/03/18 23:30 PT 12.8 SECONDS (9.5-12.5) H 01/03/18 23:30 INR 1.08 01/03/18 23:30 APTT 34.1 SECONDS (24.3-36.9) 01/03/18 23:30 Sodium 138 mmol/L (136-145) 01/03/18 23:30 Potassium 3.7 mmol/L (3.5-5.1) 01/03/18 23:30 BUN 24 mg/dL (7-18) H 01/03/18 23:30 Creatinine 1.70 mg/dL (0.55-1.3) H 01/03/18 23:30 Glucose 174 mg/dL (74-106) H 01/03/18 23:30 Magnesium 2.5 mg/dL (1.8-2.4) H 01/03/18 23:30 Total Bilirubin 0.8 mg/dL (0.2-1.0) 01/03/18 23:30 AST 21 U/L (15-37) 01/03/18 23:30 ALT 17 U/L (12-78) 01/03/18 23:30 Alkaline Phosphatase 109 U/L (45-117) 01/03/18 23:30 Troponin I 0.06 ng/mL (0.0-0.045) H 01/04/18 06:12 Home Medications: Atorvastatin Calcium [Lipitor] 80 mg PO BEDTIME 10/20/17 Furosemide [Lasix*] 40 mg PO BID 10/20/17 Glimepiride [Amaryl*] 2 mg PO DAILY 10/20/17 Isosorbide Dinitrate 20 mg PO BID 10/20/17 Lactulose [Enulose] 30 ml PO BEDTIME 10/20/17 Levothyroxine [Synthroid*] 200 mcg PO DAILY 10/20/17 Losartan Potassium 25 mg PO DAILY 10/20/17 Omeprazole 20 mg PO DAILY 10/20/17 Ranolazine [Ranexa] 1,000 mg PO BID 10/20/17 Rivastigmine Patch [Exelon 9.5 mg Patch] 13.3 mg TD DAILY 10/20/17 Sitagliptin Phosphate [Januvia*] 50 mg PO DAILY 10/20/17 Tamsulosin [Flomax*] 0.4 mg PO DAILY 10/20/17 risperiDONE [Risperdal 0.25 MG TAB*] 0.25 mg PO DAILY 10/20/17 Metoprolol Tartrate [Lopressor*] 25 mg PO BID #60 tab 10/22/17 Ergocalciferol (Vitamin D2) [Vitamin D2] 1 cap PO DAILY 12/31/17 Clopidogrel Bisulfate [Plavix*] 75 mg PO DAILY #30 tablet 01/04/18 Spironolactone [Aldactone*] 25 mg PO BID #60 tab 01/04/18 New Medications: Clopidogrel Bisulfate [Plavix*] 75 mg PO DAILY #30 tablet Spironolactone [Aldactone*] 25 mg PO BID #60 tab Patient Discharge Instructions: 1. Patient will return to the residential. 2. Patient presented with shortness of breath and edema to the lower extremity secondary to acute on chronic systolic CHF with ejection fraction of 25%. Patient evaluated by Cardiology. No intervention was needed. At discharge he will need to continue with a 1500 cc per day fluid restriction and low-salt diet. At discharge he will continue with Lasix 40 mg 1 pill twice daily. Aldactone has been increased to 25 mg 1 pill twice daily. He will need to have his weight monitored closely. If his weight increases by more than 5 lb or increase in edema is noted then medications may need to be adjusted. This can be done at the residential. 3. Patient has hypertension. He will continue with his medication-metoprolol 25 mg 1 pill twice daily and losartan 25 mg daily. Recommend is to maintain blood pressures less 150/80. Further adjustment can be done by his PCP. 4. Patient has diabetes. Patient may continue with his medication-glimepiride 2 mg 1 pill daily and Januvia 50 mg daily. Patient will need to be monitored for hypoglycemia since he is taking glimepiride. Medications may need to be further adjusted in the future. Recommendation is to maintain blood sugars less 140 fasting and less than 200 after meals. Further adjustment can be done by his PCP. 5. Patient has dementia. Patient will continue with his medication-Exelon patch daily and risperidone 0.25 mg at bedtime for agitation. 6. Patient has atrial fibrillation. He will continue with his rate control medication-metoprolol 25 mg 1 pill twice daily. Patient is not on chronic anti coagulation therapy due to risk of fall and bleeding. This can be further monitored as an outpatient by Cardiology. Recommendation is for the patient follow up with cardiology in 2 -4 weeks to monitor his progress. 7. Patient has CAD with previous pacemaker. Patient will continue with Plavix 75 mg 1 pill daily, Imdur or 20 mg 1 pill twice daily, Ranexa 1000 mg 1 pill twice daily. Recommendations for the patient follow up with cardiology as directed. 8. Patient has hyperlipidemia. Patient continue with Lipitor 80 mg 1 pill daily. 9. Patient has hypothyroidism. Patient continue with Synthroid 200 mcg daily. It appears that his medication was recently adjusted. Recommendation is to recheck tsh/T4 in 4 weeks to monitor and adjust appropriately. This can be done at the residential. 10. Patient has chronic renal disease. Future medications will need to be renally dosed. Recommend no further use of nonsteroidal anti- inflammatories in the future. Recommendations for the patient to follow up with nephrology as directed. Recommendation to recheck lab-BMP in 1 week to monitor his progress. 11. Patient has anemia of chronic disease. This can be monitored closely as an outpatient. 12. Patient has GERD. Patient continue with Prilosec 20 mg 1 pill once daily. 13. Case discussed in detail with his medical power of estate planning attorney. Advanced directives were addressed in detail. Patient is DNR. Diet: AHA Activity: Fall precautions Time spent managing pt's care (in minutes): 55
--- NOTE | 2018-01-04 12:47 | CON ---
History Of Present Illness: Mr. Blayne Ashford is an 82-year-old man. Chief complaint is none. T he patient was brought to the emergency room by emergency medical doctor nuclear medicine. [facility] His caregivers believed he was in respiratory distress. The patient does not remember feeling short of breath. He has a history of congestive heart failure. He has an ejection fraction in the low 20s or high 10s. He had bypass surgery more than 15 years a go. He has a defibrillator with a single-chamber device. Does not pace very often. He has chronic atrial flutter. He is not a candidate for chronic anticoagulation and his resuscitation status is do not resuscitate. I am not sure if that was the case before he came to the hospital. His chest x-ra y looks like there may be some infiltrate or localized pulmonary edema close to the left hilum. It i s something that is not terribly different from the way it looked on an EKG last week. He has had a CT scan of his head. This shows no acute intracranial abnormality. Medications: The patient's medications have been Flomax, Ranexa, Enulose, spironolactone, risperidon e, omeprazole, losartan, levothyroxine, furosemide, Januvia, isosorbide dinitrate, glimepiride, Plavi x, atorvastatin, rivastigmine, metoprolol, ergocalciferol. His Lasix dose has been 40 b.i.d. Impression: The patient has end-stage heart disease. We should not try to give him an anticoagulant . I think it would more likely lead to bleeding than prevent stroke. He should continue on his same medicines that he can get some, intravenous Lasix, try to reduce his total body extracellular fluid some before he goes. I believe he could probably be discharged later today. He has had at least 2 d oses of IV Lasix. It is probably why he looks so comfortable at this point, perhaps his outpatient d ose of Lasix should be increased may be 80 mg every morning, it would work better than 40 b.i.d. Thank you very much for your kind referral of Mr. Ashford. I am in favor of him being [facility]. WILLIAM Voice ID: [id number] Report ID: [id number]
[2018-01-04 13:22] VITALS: BP 122/57; TEMP 97
[2018-01-04 15:02] VITALS: O2SAT 99
[2018-01-04] MEDS ORDERED: ATORVASTATIN 80 MG TAB PO SCH (21:00)
[2018-01-04] MEDS ORDERED: LACTULOSE 20 GM/30 ML UCUP PO PRN (21:00)
[2018-01-04] MEDS ORDERED: RISPERIDONE 0.25 MG TABLET PO SCH (21:00)
[2018-01-05] MEDS ORDERED: PANTOPRAZOLE 40MG TABLET PO SCH (06:30)
== END 2018-01-04 15:29 ==
LOC: ER 23:00 → ERHOLD 01-04 03:00 → INTOOBSV 01-04 03:00 → 4TH 01-04 04:31
PROVIDERS: ADMIT Internal Medicine; ATTEND Internal Medicine
DX: I13.0 Hypertensive heart and chronic kidney disease with heart failure and stage 1 through stage 4 chronic kidney disease, or unspecified chronic kidney disease (principal); I50.23 Acute on chronic systolic (congestive) heart failure; N18.3 Chronic kidney disease, stage 3 (moderate); E11.22 Type 2 diabetes mellitus with diabetic chronic kidney disease; I25.10 Atherosclerotic heart disease of native coronary artery without angina pectoris; E03.9 Hypothyroidism, unspecified; E78.5 Hyperlipidemia, unspecified; K21.9 Gastro-esophageal reflux disease without esophagitis; F03.90 Unspecified dementia, unspecified severity, without behavioral disturbance, psychotic disturbance, mood disturbance, and anxiety; N40.0 Benign prostatic hyperplasia without lower urinary tract symptoms; I48.91 Unspecified atrial fibrillation; D63.1 Anemia in chronic kidney disease; Z95.1 Presence of aortocoronary bypass graft; Z95.0 Presence of cardiac pacemaker; Z66 Do not resuscitate
CPT/HCPCS: 36415; 70450; 71045; 80048; 80076; 81003; 82550; 82553; 82962 ×2; 83735; 83880; 84439; 84443; 84484 ×3; 85025; 85610; 85730; 93005; 94640; 94760; 96374; 97163; 99285; G0378 ×2; J1650

== ENCOUNTER 2018-01-11 00:41 | Emergency (ER) | payer OTHER ==
--- OUTSIDE RECORDS SUMMARY | 2018-01-11 00:43 | XMS REPORT | Clinical Summary ---
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 Expiration Model / Identifier Date Serial / Lot Inogen El Icd Vr Defibrillators N/A: [place] 07/10/2019 [id number] / Implanted: Qty: 1 on 12/20/2017 by Dwayne Flores MD Chest [employer] [id number] / Procedures Procedure Name Priority Date/Time Associated Diagnosis Comments AICD GENERATOR - 12/20/2017 7:20 AM Dilated cardiomyopathy REMOVE & REPLACE CDT (HCC) (SINGLE LEAD) Case Notes 1st \\CASE POP6 after 01/10/2017 Results CARDIAC CATH REPORT - SCAN (12/24/2017 [...] % Specimen Performing Laboratory Blood - Arm, [address] [address] Prothrombin time/INR (12/20/2017 7:05 AM) Component Value Ref Range Protime 15.1 (H) 11.7 - 14.7 seconds INR 1.2 <=5.9 Specimen Performing Laboratory Blood - Arm, [address] [address] Narrative RECOMMENDED COUMADIN/WARFARIN INR THERAPY RANGES STANDARD [...] Status --------- ------ CBC with platelet count ...[[id number]]AbnormalFinal result Please view results for these tests [...] PATIENTS. Specimen Performing Laboratory Blood - Arm, [facility] [address] [place] [id number] ECG 12 lead (12/20/2017 7:00 AM) Specimen Performing Laboratory GE MUSE Narrative Ventricular Rate 58 BPM Atrial Rate 232 BPM QRS Duration 98 ms Q-T Interval 426 ms QTC Calculation(Bazett) 418 ms P [place] 45 degrees R [place] -25 degrees T [place] 139 degrees Atrial flutter with variable A-V block with premature ventricular or aberrantly conducted complexes Abnormal ECG No previous ECGs available Confirmed by James BEJARANO MICHAEL ([id number]) on 12/20/2017 7:33:36 AM Procedure Note Interface, External Ris In - 12/20/2017 7:33 AM CDT Ventricular Rate 58 BPM Atrial Rate 232 BPM QRS Duration 98 ms Q-T Interval 426 ms QTC Calculation(Bazett) 418 ms P [place] 45 degrees R [place] -25 degrees T [place] 139 degrees Atrial flutter with variable A-V block with premature ventricular or aberrantly conducted complexes Abnormal ECG No previous ECGs available Confirmed by James BEJARANO MICHAEL ([id number]) on 12/20/2017 7:33:36 AM after 01/10/2017
--- OUTSIDE RECORDS SUMMARY | 2018-01-11 00:54 | XMS REPORT | Continuity of Care Document ---
:1935 Author Organization Interface Problems Problem Status Onset Classification Date Comments Source Date Reported Irritability and anger The [address] [place] [address] Anger reaction The [address] [place] [address] Dementia The [address] [place] [address] FALL ON BLOODTHINNERS Active The 2018 [place] Discharge Diagnosis: [facility] Chronic renal 2017 7 insufficiency Discharge Diagnosis: [facility] Chronic CHF 2017 7 ABNORMAL LABS Active 05/30/ [facility] 2016 AFIB/DIZZY Active 11/02[facility] 2016 CP Active 12/27[facility] 2015 UNSTABLE ANGINA Active 05/16/ [address] CHRONIC SYSTOLIC HEART Active [facility] FAILURE 428.22 ANGINA 2012 413.9 CHRONIC SYSTOLIC HEART Active 06/22/ [facility] FAILURE 428.22 ANGINA 2012 413.9. Heart failure Active Problem [facility] 2 Heart failure Active Problem [facility] Outpatient 7 Imaging [facility] Heart failure Active Problem [facility] Outpatient 5 Imaging [facility] Presence of automatic Active Problem Cardiovascular cardiac defibrillator 8 [facility]oc Atherosclerotic heart Active Problem Cardiovascular disease of [place] 8 [facility] coronary artery with other forms [...] Active Diagnosis Cardiovascular atherosclerosis of 5 [facility]oc [place] vessel Diabetes mellitus type Active Problem Cardiovascular [...] Assoc complications Unspecified dementia The without behavioral [address] [place] [address] disturbance Laceration without The foreign body of left [address] [place] [address] elbow, initial encounter Abrasion of scalp, The initial encounter [address] [place] [address] Abrasion of right The forearm, initial [address] [place] [address] encounter Striking against other The stationary object, [address] [place] [address] initial encounter Essential hypertension The [address] [place] [address] 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 [address] [place] [address] Personal history of The nicotine dependence [address] [place] [address] Encounter for The immunization [address] [place] [address] CAD (<span Active Problem [facility] ID="[id number]">Conf [address] [place] [address] irmed</span>) Serafina, Foster Heart failure Active Problem [facility] Outpatient 8 Imaging [facility] Foster HTN (<span Resolved Problem [facility], ID="[id number]">Conf 8 [facility] irmed</span>) [facility] Foster [place] (<span Resolved Problem [facility], ID="[id number]">Conf 8 [facility] irmed</span>) [facility] Foster ANGINA PECTORIS, Active [facility] CHR SYSTOLIC HRT Active [facility] FAILURE ENCOUNTER FOR Active [facility] MALIGNANT NE NON-ST ELEVATION Active [facility] (NSTEMI) MYOCARDIAL INF CHEST PAIN, Active [facility] UNSPECIFIED UNSPECIFIED ATRIAL Active [facility] FIBRILLATION Medications Medication Details Route Status Patient Ordering Order Source Instructions Provider Date Saline Flush 10 mL, Inactive The 0.9% Route: IVP2017 [place] Drug Form: INJ, Dosing Weight 83.182, kg, PRN, PRN Line Flush, Start date: 08/06/17 1:02:[address] [employer], Duration: 30 day, Stop date: 09/05/17 2:01:00 CDTNotes: Same as: BD Posiflush Sterile Saline Flush 10 mL, Inactive 0.9% Route: IVP2016 [facility] Drug Form: INJ, Dosing Weight 83.182, kg, PRN, PRN Line Flush, Start date: 05/30/17 11:48:[address] [employer]NA[employer], Duration: 1 day, Stop date: 05/31/17 11:47:00 CSTNotes: (Same as: BD Posiflush) apixaban 2.5 mg 2.5 mg=1 Active oral tablet tab, PO, 2016 [facility] Q12H, # 60 tab, 0 Refill(s) 24 HR 25 mg=1 Active Metoprolol tab, PO, 2016 Tartrate 25 MG Q12H, # 60 Extended tab, 0 Release Tablet Refill(s) [Toprol] glimepiride 1 mg, No Longer Route: PO, Active 2016 [facility] Daily, Dosing Weight 85, kg, Start date: 11/03/16 9:00:00 CDT, Duration: 30 day, Stop date: 12/02/16 9:00:00 CDT Furosemide 40 40 mg, 1 Inactive MG Oral Tablet tab, Route: 2016 [facility] PO, Drug form: TAB, Daily, Dosing Weight 85, kg, Start date: 11/03/16 9:00:00 CDT, Duration: 30 day, Stop date: 12/02/16 9:00:00 CDTNotes: (Same as: Lasix) May cause GI upset. Give with food or milk. Losartan 50 mg, 1 Inactive tab, Route: 2016 [facility] PO, Drug form: TAB, Daily, Dosing Weight 85, kg, Start date: 11/03/16 9:00:00 CDT, Duration: 30 day, Stop date: 12/02/16 9:00:00 CDTNotes: (Same as: Cozaar) Glucotrol 5 mg, [address] tab, Route: 2016 [facility] PO, Drug form: TAB, Daily, Start date: 11/03/16 9:00:00 CDT, Duration: 30 day, Stop date: 12/02/16 9:00:00 CDTNotes: (Same as: Glucotrol) 30 min before meals. Eliquis 2.5 mg, 1 Inactive 11/03[facility] tab, Route: 2016 [facility] PO, Drug form: TAB, Q12H, Dosing Weight 83.636, kg, Start date: 11/03/16 9:00:00 CDT, Duration: 30 day, Stop date: 12/02/16 21:00:00 CDTNotes: Same as: Eliquis tamsulosin 0.4 mg, 1 Inactive 11/03[facility] cap, Route: 2016 [facility] PO, Drug form: CAP, Daily, Dosing Weight 85, kg, Start date: 11/03/16 9:00:00 CDT, Duration: 30 day, Stop date: 12/02/16 9:00:00 CDTNotes: (Same As: Flomax) "Do Not Crush" Aldactone 25 mg, 1 Inactive 11/03[facility] tab, Route: 2016 [facility] PO, Drug form: TAB, Daily, Dosing Weight 85, kg, Start date: 11/03/16 9:00:00 CDT, Duration: 30 day, Stop date: 12/02/16 9:00:00 CDTNotes: (Same As: Aldactone) Synthroid 200 Inactive 11/03[facility] microgram, 2016 [facility] 2 tab, Route: PO, Drug form: TAB, Q630AM, Dosing Weight 85, kg, Start date: 11/03/16 6:30:00 CDT, Duration: 30 day, Stop date: 12/02/16 6:30:00 CDTNotes: Take 1 hour before or 2 hours after meal; Enteral feeds may interefere with the absorption of this medication. (Same as:Levothro id, Synthroid) Insulin, 3 unit, No Longer Aspart, Human 0.03 mL, Active 2016 [facility] Route: SUB-Q, Drug form: SOLN, Bedtime, Dosing [...] Glucagon 1 mg, Inactive Route: IM, 2016 [facility] PRN, Dosing Weight 83.636, kg, PRN Blood Glucose Results, Start date: 11/02/16 21:49:00 CDT, Duration: 30 day, Stop date: 12/02/16 21:48:00 CDT Dextrose 50% 25 mL, Inactive Syringe Route: IVP, 2016 [facility] Dosing Weight 83.636, kg, PRN, PRN Blood Glucose Results, Start date: 11/02/16 21:49:00 CDT, Duration: 30 day, Stop date: 12/02/16 21:48:00 CDT Morphine 2 mg, 1 mL, No Longer Route: IVP, Active 2016 [facility] Drug form: INJ, Q4H, Dosing Weight 83.636, kg, PRN Pain Score 7-10, Start date: 11/02/16 21:45:00 CDT, Duration: 30 day, Stop date: 12/02/16 21:44:00 CDTNotes: (Same as:MORPhine Sulfate) Benadryl 25 mg, 1 Inactive tab, Route: 2016 [facility] PO, Drug form: TAB, ONCE, Dosing Weight 83.636, kg, PRN Insomnia, Start date: 11/02/16 21:43:00 CDT Lipitor 10 mg, 1 No Longer tab, Route: Active 2016 [facility] PO, Drug form: TAB, Bedtime, Dosing Weight 85, kg, Start date: 11/02/16 21:00:00 CDT, Duration: 30 day, Stop date: 12/01/16 21:00:00 CDTNotes: (Same As: Lipitor) Ranexa 1,000 mg, 2 No Longer tab, Route: Active 2016 [facility] PO, Drug form: TAB, Q12H, Dosing Weight 85, kg, Start date: 11/02/16 21:00:00 CDT, Duration: 30 day, Stop date: 12/02/16 9:00:00 CDTNotes: Same as Ranexa "Do Not Crush" Prilosec 20 mg, Inactive Route: PO, 2016 [facility] Drug form: DRC, Bedtime, Dosing Weight 85, kg, Start date: 11/02/16 21:00:00 CDT, Duration: 30 day, Stop date: 12/01/16 21:00:00 CDT 24 HR 25 mg, 1 No Longer Metoprolol tab, Route: Active 2016 [facility] Tartrate 25 MG PO, Drug Extended form: Release Tablet ERTAB, [Toprol] Q12H, Start date: 11/02/16 21:00:00 CDT, Duration: 30 day, Stop date: 12/02/16 9:00:00 CDTNotes: (Same as: Toprol XL) Do Not Crush Hydralazine 10 mg, 0.5 No Longer mL, Route: Active 2016 [facility] IVP, Drug form: INJ, Q4H, Dosing Weight 85, kg, PRN Hypertensio n, Start date: 11/02/16 16:38:00 CDT, Duration: 30 day, Stop date: 12/02/16 16:37:00 CDTNotes: (Same as: Apresoline) Push over 5 minutes clopidogrel 75 mg, 1 No Longer tab, Route: Active 2016 [facility] PO, Drug form: TAB, Daily, Dosing Weight 85, kg, Start date: 11/02/16 16:30:00 CDT, Duration: 30 day, Stop date: 12/02/16 9:00:00 CDTNotes: (Same As: Plavix) aspirin 81 mg 81 mg, 1 No Longer tablet, enteric tab, Route: Active 2016 [facility] coated PO, Drug form: ECTAB, Daily, Dosing Weight 85, kg, Start date: 11/02/16 16:30:00 CDT, Duration: 30 day, Stop date: 12/02/16 9:00:00 CDTNotes: Do not crush or chew. (Same As: Ecotrin) Protonix 40 mg, 1 No Longer tab, Route: Active 2016 [facility] PO, Drug form: ECTAB, Before Dinner, Start date: 11/02/16 16:30:00 CDT, Duration: 30 day, Stop date: 12/01/16 16:30:00 CDTNotes: Tablet should not be chewed or crushed. (Same as: Protonix) 24 HR 25 mg, 1 Inactive Metoprolol tab, Route: 2016 [facility] Tartrate 25 MG PO, Drug Extended form: Release Tablet ERTAB, [Toprol] Daily, Start date: 11/02/16 16:30:00 CDT, Duration: 30 day, Stop date: 12/02/16 9:00:00 CDTNotes: (Same as: Toprol XL) Do Not Crush 24 HR 12.5 mg, No Longer Metoprolol PO, Daily, Active 2016 [facility] Tartrate 25 MG 0 Refill(s) Extended Release Tablet [Toprol] Insulin, 5 unit, No Longer Aspart, Human 0.05 mL, Active 2016 [facility] Route: SUB-Q, Drug form: SOLN, TID-Before Meals, [...] mg, No Longer Route: IM, Active 2016 [facility] Drug form: PDR/INJ, PRN, Dosing Weight 85, kg, PRN Blood Glucose Results, Start date: 11/02/16 14:36:00 CDT, Duration: 30 day, Stop date: 12/02/16 14:35:00 CDT Dextrose 50% 25 gm, 50 No Longer Syringe mL, Route: Active 2016 [facility] IVP, Drug Form: INJ, Dosing Weight 85, kg, PRN, PRN Blood Glucose Results, Start date: 11/02/16 14:36:00 CDT, Duration: 30 day, Stop date: 12/02/16 14:35:00 CDT Metoprolol 5 mg, 5 mL, No Longer Route: IVP, Active 2016 [facility] Drug form: INJ, Q4H, Dosing Weight 85, kg, PRN Tachycardia , Start date: 11/02/16 14:28:00 CDT, Duration: 30 day, Stop date: 12/02/16 14:27:00 CDTNotes: (Same as: Lopressor) Push over 2 minutes Lasix 1 tab(s) orally Active 40 mg orally [place] 09/25/ Cardiovasc once a day 2016 [facility] atorvastatin 10 10 mg=1 Active MG Oral Tablet tab, PO, 2015 [facility] [Lipitor] Bedtime carvedilol 6.25 mg=2 Active 3.125 mg oral tab, PO, 2015 tablet BID, 0 Refill(s) Aspirin 81 MG 81 mg, 1 No Longer Enteric Coated tab, Route: Active 2015 [facility] Tablet PO, Drug form: ECTAB, Daily, Dosing Weight 83.455, kg, Start date: 12/30/15 9:00:00 CDT, Duration: 30 day, Stop date: 01/28/16 9:00:00 CDTNotes: Do not crush or chew. (Same As: Ecotrin) Furosemide 40 40 mg, 1 Inactive MG Oral Tablet tab, Route: 2015 [facility] PO, Drug form: TAB, Daily, Dosing Weight 83.455, kg, Start date: 12/30/15 9:00:00 CDT, Duration: 30 day, Stop date: 01/28/16 9:00:00 CDTNotes: (Same as: Lasix) May cause GI upset. Give with food or milk. Aspirin 325 MG 325 mg, 1 Inactive Enteric Coated tab, Route: 2015 [facility] Tablet PO, Drug form: TAB, Daily, Dosing Weight 83.455, kg, Start date: 12/30/15 9:00:00 CDT, Duration: 30 day, Stop date: 01/28/16 9:00:00 CDTNotes: Take with food. clopidogrel 75 mg, No Longer Route: PO, Active 2015 [facility] Drug form: TAB, Daily, Dosing Weight 83.455, kg, Start date: 12/30/15 9:00:00 CDT, Duration: 30 day, Stop date: 01/28/16 9:00:00 CDT Losartan 50 mg, 1 Inactive tab, Route: 2015 [facility] PO, Drug form: TAB, Daily, Dosing Weight 83.455, kg, Start date: 12/30/15 9:00:00 CDT, Duration: 30 day, Stop date: 01/28/16 9:00:00 CDTNotes: (Same as: Zohra) Synthroid 200 Inactive microgram, 2015 [facility] 2 tab, Route: PO, Drug form: TAB, Daily, Dosing Weight 83.455, kg, Start date: 12/30/15 6:30:00 CDT, Duration: 30 day, Stop date: 01/28/16 6:30:00 CDTNotes: Take 1 hour before or 2 hours after meal; Enteral feeds may interefere with the absorption of this medication. (Same as:Levothro id, Synthroid) Coreg 6.25 mg, 2 No Longer tab, Route: Active 2015 [facility] PO, Drug form: TAB, BID, Dosing Weight 83.455, kg, Start date: 12/29/15 21:00:00 CDT, Duration: 30 day, Stop date: 01/28/16 9:00:00 CDTNotes: Give with food. (Same As: Coreg) Lipitor 40 mg, 1 Inactive tab, Route: 2015 [facility] PO, Drug form: TAB, Bedtime, Start date: 12/29/15 21:00:00 CDT, Duration: 30 day, Stop date: 01/27/16 21:00:00 CDTNotes: (Same as: Lipitor) rosuvastatin 10 rosuvastati No Longer mg tab n 10 mg Active 2015 [facility] tab, 20 mg, 2 tab, Drug form: MISC, Route: PO, Bedtime, 12/29/15 21:00:00 CDT, Duration: 30 day, Stop date: 01/27/16 21:00:00 CDTNotes: (Same as: Crestor) Crestor 20 mg, Inactive Route: PO, 2015 [facility] Drug form: TAB, Bedtime, Dosing Weight 83.455, kg, Start date: 12/29/15 21:00:00 CDT, Duration: 30 day, Stop date: 01/27/16 21:00:00 CDT Ranexa 1,000 mg, 2 No Longer tab, Route: Active 2015 [facility] PO, Drug form: TAB, BID, Dosing Weight 83.455, kg, Start date: 12/29/15 21:00:00 CDT, Duration: 30 day, Stop date: 01/28/16 9:00:00 CDTNotes: Same as Ranexa "Do Not Crush" Prilosec 20 mg, Inactive Route: PO, 2015 [facility] Drug form: DRC, Bedtime, Dosing Weight 83.455, kg, Start date: 12/29/15 21:00:00 CDT, Duration: 30 day, Stop date: 01/27/16 21:00:00 CDT tamsulosin 0.4 mg, 1 No Longer cap, Route: Active 2015 [facility] PO, Drug form: CAP, Daily, Dosing Weight 83.455, kg, Start date: 12/29/15 18:00:00 CDT, Duration: 30 day, Stop date: 01/27/16 18:00:00 CDTNotes: (Same As: Flomax) "Do Not Crush" Aldactone 25 mg, 1 No Longer tab, Route: Active 2015 [facility] PO, Drug form: TAB, BID, Dosing Weight 83.455, kg, Start date: 12/29/15 17:00:00 CDT, Duration: 30 day, Stop date: 01/28/16 9:00:00 CDTNotes: (Same As: Aldactone) glimepiride 1 mg, 0.5 No Longer tab, Route: Active 2015 [facility] PO, Drug form: TAB, BID-Meals, Dosing Weight 83.455, kg, Start date: 12/29/15 17:00:00 CDT, Duration: 30 day, Stop date: 01/28/16 8:00:00 CDTNotes: (Same as: Amaryl) Protonix 40 mg, 1 No Longer tab, Route: Active 2015 [facility] PO, Drug form: ECTAB, Before Dinner, Start date: 12/29/15 16:30:00 CDT, Duration: 30 day, Stop date: 01/27/16 16:30:00 CDTNotes: Tablet should not be chewed or crushed. (Same as: Protonix) Acetaminophen 1 tab, No Longer 325 MG / Route: PO, Active 2015 [facility] Hydrocodone Drug Form: Bitartrate 7.5 TAB, Dosing MG Oral Tablet Weight [[place] 7.5/325] 83.455, kg, Q6H, PRN Pain Score 4-6, Start date: 12/29/15 16:20:00 CDT, Duration: 30 day, Stop date: 01/28/16 16:19:00 CDTNotes: Same as [place] 325-7.5mg Do not exceed 4gm/day of acetaminoph en. Nitroglycerin 0.4 mg, 1 No Longer tab, Route: Active 2015 [facility] SL, Drug form: TAB, Q5Min, Dosing Weight 83.455, kg, PRN Chest Pain, Start date: 12/29/15 15:39:00 CDT, Duration: 30 day, Stop date: 01/28/16 15:38:00 CDTNotes: (Same as:Nitroqui ck, Nitrostat) "Do Not Crush" Sublingual tablet Famotidine 20 mg, 1 No Longer tab, Route: Active 2015 [facility] PO, Drug form: TAB, Q12H, Dosing Weight 83.455, kg, PRN Heartburn, Start date: 12/29/15 15:39:00 CDT, Duration: 30 day, Stop date: 01/28/16 15:38:00 CDTNotes: (Same as: Pepcid) Nitroglycerin 0.4 mg, Inactive Route: 2015 [facility] Transdermal , PRN, Dosing Weight 83.455, kg, PRN Abnormal Lab Result, Start date: 12/29/15 15:36:00 CDT, Duration: 30 day, Stop date: 01/28/16 15:35:00 CDT Insulin, 4 unit, No Longer Aspart, Human 0.04 mL, Active 2015 [facility] Route: SUB-Q, Drug form: SOLN, Bedtime, Dosing [...] mg, No Longer Route: IM, Active 2015 [facility] Drug form: PDR/INJ, PRN, Dosing Weight 83.455, kg, PRN Blood Glucose Results, Start date: 12/29/15 14:46:00 CDT, Duration: 30 day, Stop date: 01/28/16 14:45:00 CDT Dextrose 50% 25 gm, 50 No Longer Syringe mL, Route: Active 2015 [facility] IVP, Drug Form: INJ, Dosing Weight 83.455, kg, PRN, PRN Blood Glucose Results, Start date: 12/29/15 14:46:00 CDT, Duration: 30 day, Stop date: 01/28/16 14:45:00 CDT Acetaminophen 650 mg, 2 No Longer tab, Route: Active 2015 [facility] PO, Drug form: TAB, Q6H, Dosing Weight 83.455, kg, PRN Pain Score 1-3, Start date: 12/29/15 12:43:00 CDT, Duration: 30 day, Stop date: 01/28/16 12:42:00 CDTNotes: Do not exceed 4 gm/day. (Same as: Tylenol) Sodium Chloride 600 mL, Inactive 0.154 MEQ/ML Rate: 100 2015 [facility] Injectable ml/hr, Solution Infuse over: 6 hr, Route: IV, Dosing Weight 83.455 kg, Total Volume: 600, Priority: NOW, Start date: 12/29/15 9:38:00 CDT, Stop date: 12/29/15 21:37:00 CDT Plavix 75 mg, 1 No Longer tab, Route: Active 2015 [facility] PO, Drug form: TAB, Daily, Dosing Weight 83.455, kg, Priority: NOW, Start date: 12/29/15 9:09:00 CDT, Duration: 30 day, Stop date: 01/28/16 9:00:00 CDTNotes: (Same As: Plavix) Aspirin 325 MG 325 mg, 1 Inactive Enteric Coated tab, Route: 2015 [facility] Tablet PO, Daily, Dosing Weight 83.455, kg, Priority: NOW, Start date: 12/29/15 9:09:00 CDT, Duration: 30 day, Stop date: 01/28/16 9:00:00 CDT Streptococcus 0.5 mL, Inactive pneumoniae Route: IM, 2015 [facility] serotype 1 Drug Form: capsular INJ, Daily, antigen Start date: diphtheria 12/29/15 [id number] protein 9:00:00 conjugate CDT, vaccine / Duration: 1 Streptococcus doses or pneumoniae times, Stop serotype 14 date: capsular 12/29/15 antigen 9:00:00 diphtheria CDTNotes: [id number] protein Lightly conjugate roll vial vaccine / (DO NOT Streptococcus SHAKE) pneumoniae before serotype 18C administrat capsular ion. (Same antigen d as: Prevnar 13) glimepiride 1 mg, PO, Active BID-Meals, 2015 [facility] 0 Refill(s) Saline Flush 10 ml, No Longer 0.9% Route: IVP, Active 2015 [facility] Drug Form: INJ, Dosing Weight 83.455, kg, Q12H, Start date: 12/28/15 21:00:00 CDT, Duration: 30 day, Stop date: 01/27/16 9:00:00 CDTNotes: (Same as: BD Posiflush) Zofran 4 mg, 2 mL, No Longer Route: IVP, 2015 [facility] Drug form: INJ, Q8H, Dosing Weight 84.716, kg, PRN as needed for nausea/vomi ting, Start date: 12/28/15 19:06:00 CDT, Duration: 30 day, Stop date: 01/27/16 19:05:00 CDTNotes: (Same as: Zofran) MEDICATION WASTE Product Size: 4 mg Product Wasted: ___ mg Saline Flush 10 ml, No Longer 0.9% Route: IVP, Active 2015 [facility] Drug Form: INJ, Dosing Weight 83.455, kg, PRN, PRN Line Flush, Start date: 12/28/15 19:06:00 CDT, Duration: 30 day, Stop date: 01/27/16 19:05:00 CDTNotes: (Same as: BD Posiflush) Nitroglycerin 0.4 mg, 1 No Longer tab, Route: 2015 [place], Drug form: TAB, Q5Min, Dosing Weight [...] Longer unit/kg Bolus PRN, 4,400 Active 2015 [facility] (Heparin Dosing unit, 4.4 Weight) mL, Drug form: INJ, PRN, Heparin Protocol, Start date: 12/28/15 16:59:00 CDT Stop date: 01/27/16 16:58:00 CDT, 30 day Heparin - one 4,000 unit, Inactive time bolus for 4 mL, 2015 [facility] Route: IV, Drug form: INJ, ONCE, Dosing Weight 84.716, kg, Priority: STAT, Start date: 12/28/15 16:59:00 CDT, Stop date: 12/28/15 16:59:00 CDT Aspirin 325 mg, 1 Inactive tab, Route: 2015 [facility] PO, Drug form: TAB, ONCE, Dosing Weight 84.716, kg, Priority: STAT, Start date: 12/28/15 16:29:00 CDT, Stop date: 12/28/15 16:29:00 CDTNotes: Take with food. Aspirin 81 MG 81 mg=1 Active [place] [facility] Coated tab, PO, 2014 [facility] Tablet Daily, 0 Center Refill(s) clopidogrel 75 75 mg=1 Active [place] mg oral tablet tab, PO, 2014 [facility] [...] es: (Same as: Mag-Ox 400) Magnesium oxide [id number] elemental magnesium Dose=____mg magnesium oxide (___mg elemental [...] c) normal saline 1,000 mL, No Longer [place] 0.9% IV 1,000 Rate: 75 Active 2014 [facility] mL ml/hr, Center Infuse over: 13.3 hr, Route: IV, Dosing Weight 85 kg, Total Volume: 1,000, Start date: 05/19/15 23:08:00, Duration: 30 day, Stop date: 06/18/15 23:07:00 Plavix 300 mg, 1 Inactive [place] tab, Route: 2014 [facility] PO, Drug Center form: TAB, ONCE, Dosing Weight 85, kg, Priority: Within 4 hours, Start date: 05/19/15 12:39:00, Duration: 1 doses or times, Stop date: 05/19/15 12:39:00Not es: ( Same as: Plavix) Miralax 17 gm, 1 No Longer [place] pkt, Route: Active 2014 [facility] PO, Drug Center form: PWDR, Daily, Dosing Weight 85, kg, Priority: NOW, Start date: 05/18/15 16:37:00, Duration: 30 day, Stop date: 06/17/15 9:00:00Note s: Dissolve in 8 oz of water or juice. (Same as: Miralax) sennosides, [facility] 8.6 mg, 1 No Longer [place] tab, Route: Active 2014 [facility] PO, Drug Center Form: TAB, Dosing Weight 85, kg, Daily, NOW, Start date: 05/18/15 16:37:00, Duration: 30 day, Stop date: 06/17/15 9:00:00Note s: (Same as: Senokot) Docusate 100 mg, Inactive [place] Route: PO, 2014 [facility] Drug form: Center CAP, Daily, Dosing Weight 85, kg, Priority: NOW, Start date: 05/18/15 16:37:00, Duration: 30 day, Stop date: 06/17/15 9:00:00 Lipitor 40 mg, 2 No Longer [place] tab, Route: Active 2014 [facility] PO, Drug Center form: TAB, Bedtime, Start date: 05/17/15 21:00:00, Duration: 30 day, Stop date: 06/15/15 21:00:00Not es: (Same As: Lipitor) Crestor 20 mg, Inactive [place] Route: PO, 2014 [facility] Drug form: Center TAB, Bedtime, Dosing Weight 85, kg, Start date: 05/17/15 21:00:00, Duration: 30 day, Stop date: 06/15/15 21:00:00 Prilosec 20 mg, Inactive [place] Route: PO, 2014 [facility] Drug form: Center DRC, Bedtime, Dosing Weight 85, kg, Start date: 05/17/15 21:00:00, Duration: 30 day, Stop date: 06/15/15 21:00:00 Docusate Sodium 100 mg, 1 No Longer [place] 100 MG Oral cap, Route: Active 2014 [facility] Capsule PO, Drug Center [Colace] form: CAP, BID, Dosing Weight 85, kg, Start date: 05/17/15 17:00:00, Duration: 30 day, Stop date: 06/16/15 9:00:00Note s: (Same as: Colace) (Do Not Crush) Protonix 40 mg, 1 No Longer [place] tab, Route: Active 2014 [facility] PO, Drug Center form: ECTAB, Before Dinner, Start date: 05/17/15 16:30:00, Duration: 30 day, Stop date: 06/15/15 16:30:00Not es: Tablet should not be chewed or crushed. (Same as: Protonix) Aspirin 81 mg, 1 No Longer [place] tab, Route: Active 2014 [facility] PO, Drug Center form: ECTAB, Daily, Dosing Weight 85, kg, Start date: 05/17/15 9:00:00, Duration: 30 day, Stop date: 06/15/15 9:00:00Note s: Do not crush or chew. (Same As: Ecotrin) Furosemide 40 40 mg, 1 No Longer [place] MG Oral Tablet tab, Route: Active 2014 [facility] PO, Drug Center form: TAB, Daily, Dosing Weight 85, kg, Start date: 05/17/15 9:00:00, Duration: 30 day, Stop date: 06/15/15 9:00:00Note s: (Same as: Lasix) May cause GI upset. Give with food or milk. Aldactone 25 mg, 1 No Longer [place] tab, Route: Active 2014 [facility] PO, Drug Center form: TAB, BID, Dosing Weight 85, kg, Start date: 05/17/15 9:00:00, Duration: 30 day, Stop date: 06/15/15 17:00:00Not es: (Same As: Aldactone) Ranexa 1,000 mg, 2 No Longer [place] tab, Route: Active 2014 [facility] PO, Drug Center form: TAB, BID, Dosing Weight 85, kg, Start date: 05/17/15 9:00:00, Duration: 30 day, Stop date: 06/15/15 17:00:00Not es: Same as Ranexa "Do Not Crush" Losartan 50 mg, 1 No Longer [facility] tab, Route: Active 2014 [facility] PO, Drug Center form: TAB, Daily, Dosing Weight 85, kg, Start date: 05/17/15 9:00:00, Duration: 30 day, Stop date: 06/15/15 9:00:00Note s: (Same as: Cozaar) Coreg 6.25 mg, 1 No Longer [facility] tab, Route: Active 2014 [facility] PO, Drug Center form: TAB, BID, Dosing Weight 85, kg, Start date: 05/17/15 9:00:00, Duration: 30 day, Stop date: 06/15/15 17:00:00Not es: Give with food. (Same As: Coreg) tamsulosin 0.4 mg, 1 No Longer [place] cap, Route: Active 2014 [facility] PO, Drug Center form: CAP, After Breakfast, Dosing Weight 85, kg, Start date: 05/17/15 8:30:00, Duration: 30 day, Stop date: 06/15/15 8:30:00Note s: (Same As: Flomax) "Do Not Crush" Synthroid 200 No Longer [place] microgram, Active 2014 Medical 1 tab, Center [...] 30 day heparin 500 mL, No Longer [place] additive 25,000 Rate: 17.68 Active 2014 Medical unit [12 ml/hr, Center unit/kg/hr] + Infuse Premix Diluent over: 28.3 Dextrose 5% 500 hr, Route: mL IVPB, Dosing Weight 73.66 kg, Total Volume: 500 mL, Start date: 05/17/15 1:38:00, Duration: 30 day, Stop date: 06/16/15 1:37:00 Plavix 75 mg, 1 Inactive tab, Route: 2014 [facility] PO, Drug form: TAB, Daily, Dosing Weight 83.2, kg, Start date: 05/16/15 9:00:00, Duration: 30 day, Stop date: 06/14/15 9:00:00Note s: (Same As: Plavix) Plavix 600 mg, 2 Inactive tab, Route: 2014 [facility] PO, Drug form: TAB, ONCE, Dosing Weight 83.2, kg, Priority: NOW, Start date: 05/15/15 10:37:00, Duration: 1 doses or times, Stop date: 05/15/15 10:37:00Not es: ( Same as: Plavix) Insulin, 10 unit, No Longer Aspart, Human 0.1 mL, Active 2014 [facility] Route: SUB-Q, Drug form: SOLN, TID-Before Meals, [...] No Longer Syringe mL, Route: Active 2014 [facility] IVP, Drug Form: INJ, Dosing Weight 83.2, kg, PRN, PRN Blood Glucose Results, Start date: 05/14/15 11:54:00, Duration: 30 day, Stop date: 06/13/15 11:53:00 Glucagon 1 mg, No Longer Route: IM, Active 2014 [facility] Drug form: PDR/INJ, PRN, Dosing Weight 83.2, kg, PRN Blood Glucose Results, Start date: 05/14/15 11:54:00, Duration: 30 day, Stop date: 06/13/15 11:53:00 Magnesium 2 gm, 50 Inactive Sulfate mL, Route: 2014 [facility] IVPB, Drug form: INJ, ONCE, Dosing Weight 83.2, kg, Start date: 05/14/15 8:24:00, Duration: 2 hr, Stop date: 05/14/15 8:24:00 Coreg 3.125 mg, Inactive Route: PO, 2014 [facility] Drug form: TAB, Q12H, Dosing Weight 83.2, kg, hold sbp Crestor 20 mg, Inactive Route: PO, 2014 [facility] Drug form: TAB, Bedtime, Dosing Weight 83.2, kg, Start date: 05/13/15 21:00:00, Duration: 30 day, Stop date: 06/11/15 21:00:00 Lipitor 40 mg, 1 No Longer tab, Route: Active 2014 [facility] PO, Drug form: TAB, Bedtime, Start date: 05/13/15 21:00:00, Duration: 30 day, Stop date: 06/11/15 21:00:00Not es: (Same as: Lipitor) heparin sodium, 4,000 unit, Inactive porcine 5000 4 mL, 2014 UNT/ML Route: IV, Injectable Drug form: Solution INJ, ONCE, Dosing Weight 83.2, kg, Start date: 05/13/15 14:00:00, Stop date: 05/13/15 14:00:00 Lasix 20 mg, 2 Inactive mL, Route: 2014 [facility] IV, Drug form: INJ, ONCE, Dosing Weight 83.2, kg, Start date: 05/13/15 12:00:00, Stop date: 05/13/15 12:00:00Not es: (Same as: Lasix) Morphine 2 mg, 1 mL, No Longer Route: IVP, Active 2014 [facility] Drug form: INJ, Q4H, Dosing Weight 83.2, kg, PRN Pain Score 7-10, Start date: 05/13/15 10:19:00, Duration: 30 day, Stop date: 06/12/15 10:18:00Not es: (Same as:MORPhine Sulfate) Sodium Chloride 250 mL, 250 Inactive 0.154 MEQ/ML ml/hr, 2014 [facility] Injectable Infuse Solution Over: 1 hr, Route: IV, 250, Drug form: INJ, ONCE, Dosing Weight 83.2 kg, Start date: 05/13/15 9:58:00, Duration: 1 doses or times, Stop date: 05/13/15 9:58:00 Flomax 0.4 mg, 1 No Longer cap, Route: Active 2014 [facility] PO, Drug form: CAP, Daily, Dosing Weight 84.659, kg, Start date: 05/13/15 9:00:00, Duration: 30 day, Stop date: 06/11/15 9:00:00Note s: (Same As: Flomax) "Do Not Crush" aspirin 325 mg 325 mg, 1 No Longer tablet tab, Route: Active 2014 [facility] PO, Drug form: TAB, Daily, Start date: 05/13/15 9:00:00, Duration: 30 day, Stop date: 06/11/15 9:00:00Note s: Take with food. Thyroxine 112 No Longer microgram, Active 2014 [facility] 1 tab, Route: PO, Drug form: TAB, Q630AM, Dosing Weight 84.659, kg, Start date: 05/13/15 6:30:00, Duration: 30 day, Stop date: 06/11/15 6:30:00Note s: Take 1 hour before or 2 hours after meal; Enteral feeds may interefere with the absorption of this medication. (Same as:Levothro id) Ranexa 1,000 mg, 2 No Longer tab, Route: Active 2014 [facility] PO, Drug form: TAB, BID, Dosing Weight 84.659, kg, Start date: 05/12/15 22:00:00, Duration: 30 day, Stop date: 06/11/15 21:00:00Not es: Same as Ranexa "Do Not Crush" Coreg 6.25 mg, 2 No Longer tab, Route: Active 2014 [facility] PO, Drug form: TAB, BID, Dosing Weight 84.659, kg, Start date: 05/12/15 21:00:00, Duration: 30 day, Stop date: 06/11/15 9:00:00Note s: Give with food. (Same As: Coreg) Lipitor 20 mg, 2 No Longer tab, Route: Active 2014 [facility] PO, Drug form: TAB, Bedtime, Start date: 05/12/15 21:00:00, Duration: 30 day, Stop date: 06/10/15 21:00:00Not es: (Same As: Lipitor) Crestor 10 mg, Inactive Route: PO, 2014 Bedtime, Dosing Weight 84.659, kg, Start date: 05/12/15 21:00:00, Duration: 30 day, Stop date: 06/10/15 21:00:00 Insulin, 6 unit, No Longer Aspart, Human 0.06 mL, Active 2014 [facility] Route: SUB-Q, Drug form: SOLN, Sliding Scale, [...] mg, No Longer Route: IM, Active 2014 [facility] Drug form: PDR/INJ, PRN, Dosing Weight 83.2, kg, PRN Blood Glucose Results, Start date: 05/12/15 20:52:00, Duration: 30 day, Stop date: 06/11/15 20:51:00 Dextrose 50% 25 gm, 50 No Longer Syringe mL, Route: Active 2014 [facility] IVP, Drug Form: INJ, Dosing Weight 83.2, kg, PRN, PRN Blood Glucose Results, Start date: 05/12/15 20:52:00, Duration: 30 day, Stop date: 06/11/15 20:51:00 Trazodone 50 mg, 1 No Longer tab, Route: Active 2014 [facility] PO, Drug form: TAB, Bedtime, Dosing Weight 83.2, kg, PRN Sleep, Start date: 05/12/15 20:43:00, Duration: 30 day, Stop date: 06/11/15 20:42:00, ..Notes: (Same As: Julián) Nitroglycerin 0.4 mg, 1 No Longer tab, Route: Active 2014 [facility] SL, Drug form: TAB, Q5Min, Dosing Weight 83.2, kg, PRN Chest Pain, Start date: 05/12/15 20:37:00, Duration: 3 doses or times, Stop date: Limited # of timesNotes: (Same as:Nitroqui ck, Nitrostat) "Do Not Crush" Sublingual tablet Nitroglycerin 0.4 mg, On Hold Transdermal 2014 [facility] , PRN, 0 Refill(s) Rosuvastatin 20 mg=1 On Hold calcium 20 MG tab, PO, 2014 [facility] Oral Tablet Bedtime, # [Crestor] 30 tab, 0 Refill(s) Levothyroxine 200 On Hold Sodium 0.2 MG microgram=1 2014 [facility] Oral Tablet tab, PO, [Synthroid] Daily, # [...] Longer additive 25,000 Rate: 17.31 Active 2014 [facility] unit [12 ml/hr, unit/kg/hr] + Infuse Premix Diluent over: 28.9 Dextrose 5% 500 hr, Route: mL IV, Dosing Weight 72.14 kg, Total Volume: 500 mL, Start date: 05/12/15 16:57:00, Duration: 30 day, Stop date: 06/11/15 16:56:00 heparin sodium, 4,000 unit, Inactive porcine 5000 4 mL, 2014 [facility] UNT/ML Route: IV, Injectable Drug form: Solution INJ, ONCE, Dosing Weight 81.364, kg, Priority: STAT, Start date: 05/12/15 16:57:00, Stop date: 05/12/15 16:57:00 Aspirin 81 MG 324 mg, Inactive Chewable Tablet Route: PO, 2014 [facility] Drug form: CHEWTAB, ONCE, Dosing Weight 81.364, kg, Priority: STAT, Start date: 05/12/15 16:22:00, Stop date: 05/12/15 16:22:00 Aspirin 325 mg, Inactive Route: 2014 [facility] CHEW, Drug form: CHEWTAB, ONCE, Dosing Weight 81.364, kg, Priority: STAT, Start date: 05/12/15 16:20:00, Stop date: 05/12/15 16:20:00 Aspirin 324 mg, 4 Inactive tab, Route: 2014 [facility] PO, Drug form: CHEWTAB, ONCE, Dosing Weight 81.364, kg, Priority: STAT, Start date: 05/12/15 14:36:00, Stop date: 05/12/15 14:36:00Not es: Take with food. Saline Flush 10 mL, No Longer 0.9% Route: IVP, Active 2014 [facility] Drug Form: INJ, Dosing Weight 81.364, kg, PRN, PRN Line Flush, Start date: 05/12/15 14:36:00, Duration: 30 day, Stop date: 06/11/15 14:35:00Not es: (Same as: BD Posiflush) furosemide 1 tab(s) orally Active 40 mg orally [facility] 06/26/ Cardiovasc once a day 2014 ular [facility] nitroglycerin 1 tab(s) sublingua Active 0.4 mg [facility] 11/26/ Cardiovasc lly sublingually 2013 ular [facility] every 5 minutes Crestor 1 tab(s) orally Active 10 mg orally [facility] 01/27/ Cardiovasc once a day (at 2012 ular [facility] bedtime) Ranexa 1,000 mg, 2 PO No Longer [facility] tab, Route: Active 2011 [facility] PO, Drug form: TAB, Q12H, Start date: 06/28/11 21:00:00, Duration: 30 day, Stop date: 07/28/11 9:00:00 Lipitor 10 mg, 1 PO No Longer [facility] tab, Route: Active 2011 [facility] PO, Drug form: TAB, Bedtime, Start date: 06/28/11 21:00:00, Duration: 30 day, Stop date: 07/27/11 21:00:00 lisinopril 10 mg, 1 PO No Longer [facility] tab, Route: Active 2011 [facility] PO, Drug form: TAB, Daily, Start date: 06/28/11 17:00:00, Duration: 30 day, Stop date: 07/28/11 9:00:00 glimepiride 2 mg, 1 PO No Longer [facility] tab, Route: Active 2011 [facility] PO, Drug form: TAB, BID, Start date: 06/28/11 17:00:00, Duration: 30 day, Stop date: 07/28/11 9:00:00 Lasix 20 mg, 1 PO No Longer [facility] tab, Route: Active 2011 [facility] PO, Drug form: TAB, BID, Start date: 06/28/11 17:00:00, Duration: 30 day, Stop date: 07/28/11 9:00:00 spironolactone 25 mg, 1 PO No Longer [facility] tab, Route: Active 2011 [facility] PO, Drug form: TAB, Daily, Start date: 06/28/11 17:00:00, Duration: 30 day, Stop date: 07/28/11 9:00:00 Flomax 0.4 mg, 1 PO No Longer [facility] cap, Route: Active 2011 [facility] PO, Drug form: CAP, Daily, Start date: 06/28/11 17:00:00, Duration: 30 day, Stop date: 07/28/11 9:00:00 aspirin 81 mg 81 mg, 1 PO No Longer [facility] tablet, enteric tab, Route: Active 2011 [facility] coated PO, Drug form: ECTAB, Daily, Start date: 06/28/11 17:00:00, Duration: 30 day, Stop date: 07/28/11 9:00:00 acetaminophen-t 1 tab, PO No Longer [facility] ramadol 325 Route: PO, Active 2011 [facility] mg-37.5 mg oral Drug Form: tablet TAB, Daily, Start date: 06/28/11 17:00:00, Duration: 30 day, Stop date: 07/28/11 9:00:00 cefazolin 2 gm, IVPB No Longer [facility] Route: Active 2011 [facility] IVPB, Q8H, Start date: 06/28/11 16:00:00, Duration: 2 doses or times, Stop date: 06/29/11 0:00:00 Sodium Chloride 10 mL, IVP No Longer [facility] 0.9% IV Route: IVP, Active 2011 [facility] Start date: 06/28/11 16:00:00, Duration: 30 day, Stop date: 07/28/11 8:00:00 Coreg 25 mg, 1 PO No Longer [facility] tab, Route: Active 2011 [facility] PO, Drug form: TAB, Q12H, Start date: 06/28/11 15:00:00, Duration: 30 day, Stop date: 07/28/11 9:00:00 nitroglycerin 0.4 mg, 1 SL No Longer [facility] 0.4 mg tab, Route: Active 2011 [facility] sublingual SL, Drug tablet form: TAB, PRN, PRN Chest Pain, Start date: 06/28/11 13:33:00, Duration: 30 day, Stop date: 07/28/11 13:32:00 acetaminophen 500 mg, 1 PO No Longer [facility] tab, Route: Active 2011 [facility] PO, Drug form: TAB, Q4H, PRN Pain, Start date: 06/28/11 11:28:00, Duration: 30 day, Stop date: 07/28/11 11:27:00 acetaminophen-h 2 tab, PO No Longer [facility] ydrocodone 325 Route: PO, Active 2011 [facility] mg-5 mg oral Drug Form: tablet TAB, Q4H, PRN Pain, Start date: 06/28/11 11:28:00, Duration: 30 day, Stop date: 07/28/11 11:27:00 morphine 2 mg, 1 mL, IV No Longer [facility] Sulfate Route: IV, Active 2011 [facility] Drug form: INJ, Q2H, PRN Severe Pain, Start date: 06/28/11 11:28:00, Duration: 30 day, Stop date: 07/28/11 11:27:00 Xanax 0.25 mg, 1 PO No Longer [facility] tab, Route: Active 2011 [facility] PO, Drug form: TAB, Q8H, PRN Anxiety, Start date: 06/28/11 11:28:00, Duration: 30 day, Stop date: 07/28/11 11:27:00 Zofran 4 mg, 2 mL, IVP No Longer [facility] Route: IVP, Active 2011 [facility] Drug form: INJ, Q8H, PRN Nausea & Vomiting, Start date: 06/28/11 11:28:00, Duration: 30 day, Stop date: 07/28/11 11:27:00 Restoril 15 mg, 1 PO No Longer [facility] cap, Route: Active 2011 [facility] PO, Drug form: CAP, Bedtime, PRN Insomnia, Start date: 06/28/11 11:28:00, Duration: 30 day, Stop date: 07/28/11 11:27:00 Sodium Chloride 10 mL, IVP No Longer [facility] 0.9% IV Route: IVP, Active 2011 [facility] PRN, Line Flush, Start date: 06/28/11 11:26:00, Duration: 30 day, Stop date: 07/28/11 11:25:00 multivitamin 1 tab, PO No Longer [facility] Route: PO, Active 2011 [facility] Drug Form: TAB, [id number], Start date: 06/28/11 6:00:00, Duration: 4 doses or times, Stop date: 06/29/11 18:00:00 cefazolin 1 gm, IVPB No Longer [facility] Route: Active 2011 [facility] IVPB, PRE OP, Start date: 06/28/11 5:00:00, Duration: 12 hr, Stop date: 06/28/11 16:59:00 Sodium Chloride 1,000 mL, IV No Longer [facility] 0.45% IV 1,000 Rate: 75 Active 2011 [facility] mL ml/hr, Infuse over: 13.3 hr, Route: IV, Total Volume: 1,000, Start date: 06/28/11 5:00:00, Duration: 24 hr, Stop date: 06/29/11 4:59:00 lidocaine-prilo 1 appl, TOP No Longer [facility] freddie topical Route: TOP, Active 2011 [facility] ONCALL, Drug form: CRM, Start date: 06/28/11 5:00:00, Duration: 1 doses or times Valium 5 mg, 1 PO No Longer [facility] tab, Route: Active 2011 [facility] PO, Drug form: TAB, ONCALL, Start date: 06/28/11 5:00:00, Duration: 1 doses or times Benadryl 50 mg, 2 PO No Longer [facility] tab, Route: Active 2011 [facility] PO, Drug form: TAB, ONCALL, Start date: [...] Cardiovasc 2 times a day [facility] Humalog 13 units subcutane Active 100 units/mL [facility] Cardiovasc before ously subcutaneously [facility] meals Lantus 34 units at subcutane Active 100 units/mL [facility] Cardiovasc bedtime ously subcutaneously [facility] omeprazole 1 tab(s) orally Active 20 mg orally [facility] Cardiovasc once a day [facility] levothyroxine 2 caps orally Active 112 mcg orally [facility] Cardiovasc once a day [facility] Lyrica 1 cap(s) orally Active 50 mg orally 2 [place] [facility] times a day [facility] ASA 1 tab(s) NA Active 81mg once a day [place] [facility] gemfibrozil 1 tab(s) orally Active 600 mg orally 2 [facility]ov[facility] times a day [facility] Coreg 1/2 tab orally Active [...] 1 tab(s) orally Active 75 mg orally [place] Cardiovasc once a day [facility] furosemide [...] [place] Cardiovasc once a day [facility] Allergies, Adverse Reactions, Alerts Substance Category Reaction Severity Reaction Status Date Comments Source type Reported N.K.D.A. Adverse Info Not Adverse Active Cardiovascul Reaction Available Reaction 7 [facility] NKDA Assertion Drug Active The allergy [place] Immunizations Immunization Date Site Status Last Comments Source Given Updated diphtheria/pertu Right completed [facility] The ssis, 8 deltoid [place] acel/tetanus adult pneumococcal Right completed Jose 13-valent 6 deltoid [facility], vaccine [place] Results Order Name Results Value Reference Date Interpretation Comments Source Range URINE AND UA <=1.0 0.1 - 1.0 08/06 The STOOL Urobilinogen mg/dL /2017 [place] URINE AND UA RBC 1 /HPF 0 - 2 08/06 [facility] The [place] URINE AND UA Mucus Few /LPF None Seen 08/06 The STOOL /LPF [place] URINE AND UA Color Yellow Yellow 08/06 The [facility] *NA* (08/06/17 2:20 AM) URINE AND UA Turbidity Clear Clear 08/06 The [place] (08/06/17 2:20 AM) URINE AND UA Spec Grav 1.006 <=1.030 08/06 The [place] URINE AND UA Sq Epi Occasional Few /LPF 08/06 The STOOL /LPF [place] URINE AND UA WBC 1 /HPF 0 - 5 08/06 MH The STOOL [place] URINE AND UA Nitrite Negative Negative 08/06 The STOOL [place] (08/06/17 2:20 AM) URINE AND UA Leuk Est Negative Negative 08/06 The [place] (08/06/17 2:20 AM) URINE AND UA pH 5.0 5.0 - 8.0 08/06 The [place] URINE AND UA Ketones Negative Negative 08/06 The ST[facility]OL mg/dL mg/dL /2017 [place] URINE AND UA Bili Negative Negative 08/06 The [place] *NA* (08/06/17 2:20 AM) URINE AND UA Protein Negative Negative 08/06 The STOOL mg/dL mg/dL /2017 [place] URINE AND UA Glucose Negative Negative 08/06 The [facility] mg/dL mg/dL [place] URINE AND UA Blood Negative Negative 08/06 The [place] (08/06/17 2:20 AM) CHEM PANEL A/G Ratio 1.1 0.7 - 1.6 08/06 [place] CHEM PANEL AGAP 13.0 meq/L 10.0 - 08/06 The 20.0 [place] CHEM PANEL Globulin 3.2 g/dL 2.7 - 4.2 08/06 The [place] CHEM PANEL B/C Ratio 21 6 - 25 08/06 The [place] CHEM PANEL CO2 25 meq/L 24 - 32 08/06 The [place] CHEM PANEL Chloride Lvl 102 meq/L 95 - 109 08/06 The [place] CHEM PANEL Potassium 4.0 meq/L 3.5 - 5.1 08/06 The Lvl [place] CHEM PANEL Sodium Lvl 136 meq/L 135 - 145 08/06 The [place] CHEM PANEL BUN 38 mg/dL 7 - 22 08/06 The [place] CHEM PANEL Glucose Lvl 246 mg/dL 70 - 99 08/06 The [place] CHEM PANEL Creatinine 1.81 mg/dL 0.50 - 08/06 The Lvl 1.40 [place] CHEM PANEL Alk Phos 134 unit/L 39 - 136 08/06 The [place] CHEM PANEL Bili Total 0.8 mg/dL 0.2 - 1.3 08/06 The [place] CHEM PANEL ALT 29 unit/L 0 - 65 08/06 The [place] CHEM PANEL Albumin Lvl 3.5 g/dL 3.5 - 5.0 08/06 The [place] CHEM PANEL AST 28 unit/L 0 - 37 08/06 The [place] CHEM PANEL Total 6.7 g/dL 6.4 - 8.4 08/06 The Protein [place] CHEM PANEL Calcium Lvl 8.5 mg/dL 8.5 - 10.5 08/06 The [place] CHEM PANEL eGFR 34 08/06 Result Comment: [...] is not recommended in the following populations: [place] 3m2 Individuals with unstable creatinine concentrations, including [...] 23.8 pg 27.0 - 08/06 The 31.0 [place] HEMATOLOGY RDW 18.4 % 11.5 - 08/06 The 14.5 [place] HEMATOLOGY MPV 9.3 fL 7.4 - 10.4 08/06 The [place] HEMATOLOGY Platelet 135 K/CMM 133 - 450 08/06 The [place] HEMATOLOGY MCHC 31.9 g/dL 32.0 - 08/06 The 36.0 [place] HEMATOLOGY Hct 30.4 % 42.0 - 08/06 The 54.0 [place] HEMATOLOGY MCV 74.5 fL 80.0 - 08/06 The 94.0 [place] HEMATOLOGY RBC 4.08 M/CMM 4.70 - 08/06 The 6.10 [place] HEMATOLOGY Hgb 9.7 g/dL 14.0 - 08/06 The 18.0 [place] HEMATOLOGY WBC 4.8 K/CMM 3.7 - 10.4 08/06 The [place] HEMATOLOGY PTT 30.0 s 22.9 - 08/06 The 35.8 [place] HEMATOLOGY PT 14.6 s 12.0 - 08/06 The 14. [place] HEMATOLOGY INR 1.14 0.85 - 08/06 The 1.17 [place] HEMATOLOGY Monocytes # 0.4 K/CMM 0.0 - 0.8 08/06 The [place] HEMATOLOGY Eosinophils 0.2 K/CMM 0.0 - 0.5 08/06 The [place] HEMATOLOGY Microcyte 1+ None Seen 08/06 The [place] *ABN* (08/06/17 1:09 AM) HEMATOLOGY Basophils 0.5 % 0.0 - 1.0 08/06 The [place] HEMATOLOGY Segs-Bands # 3.4 K/CMM 1.5 - 8.1 08/06 The [place] HEMATOLOGY Lymphocytes 0.8 K/CMM 1.0 - 5.5 08/06 The # [place] HEMATOLOGY Lymphocytes 15.8 % 20.0 - 08/06 The 40.0 [place] HEMATOLOGY Monocytes 8.5 % 2.0 - 12.0 08/06 The [place] HEMATOLOGY Segs 70.6 % 45.0 - 08/06 The 75.0 [place] HEMATOLOGY Eosinophils 4.6 % 0.0 - 4.0 08/06 The [place] Brain wo Brain wo CT HEAD WITHOUT CONTRAST 08/06 - The contrast contrast CT /2017 - [place] CT Clinical Indication: - head trauma, plavix. [...] 1358 pg/mL <=100 05/30 ENZYMES pg/mL /2016 [facility] CARDIAC Troponin-I 0.02 ng/mL 0.00 - 05/30 [facility] 0.40 /2016 [facility] ELECTROLYT AGAP 10.8 meq/L 10.0 - 05/30 ES 20.0 [facility] ELECTROLYT A/G Ratio 1.4 0.7 - 1.6 05/30 ES [facility] ELECTROLYT B/C Ratio 15 6 - 25 05/30 ES [facility] ELECTROLYT Globulin 2.7 g/dL 2.7 - 4.2 [...] is not recommended in the following populations: [facility] 3m2 Individuals with unstable creatinine concentrations, including [...] Phos 89 unit/L 39 - 136 05/30 [facility] ELECTROLYT Glucose Lvl 126 mg/dL 70 - 99 05/30 [place] ELECTROLYT BUN 31 mg/dL 7 - 22 05/30 [facility] HEMATOLOGY PT 14.7 s 12.0 - 05/30 14. [facility] HEMATOLOGY INR 1.15 0.85 - 05/30 1.17 [facility] HEMATOLOGY RDW 16.9 % 11.5 - 05/30 14. [facility] HEMATOLOGY WBC 3.6 K/CMM 3.7 - 10.4 05/30 [facility] HEMATOLOGY RBC 3.64 M/CMM 4.70 - 05/30 MH 6.10 /2016 [facility] HEMATOLOGY MCH 26.1 pg 27.0 - 05/30 MH 31.0 /2016 [facility] HEMATOLOGY MCV 81.6 fL 80.0 - 05/30 MH 94.0 /2016 [facility] HEMATOLOGY Hct 29.7 % 42.0 - 05/30 MH 54.0 /2016 [facility] HEMATOLOGY MCHC 31.9 g/dL 32.0 - 05/30 MH 36.0 /2016 [facility] HEMATOLOGY Hgb 9.5 g/dL 14.0 - 05/30 MH 18.0 /2016 [facility] HEMATOLOGY Platelet 98 K/CMM 133 - 450 05/30 [facility] HEMATOLOGY MPV 9.3 fL 7.4 - 10.4 05/30 [facility] HEMATOLOGY Eosinophils 0.1 K/CMM 0.0 - 0.5 05/30 MH # /2017 [facility] HEMATOLOGY Eosinophils 1.8 % 0.0 - 4.0 05/30 /2016 [facility] HEMATOLOGY Monocytes 9.8 % 2.0 - 12.0 05/30 [facility] HEMATOLOGY Monocytes # 0.4 K/CMM 0.0 - 0.8 05/30 [facility] HEMATOLOGY Segs-Bands # 2.3 K/CMM 1.5 - 8.1 05/30 [facility] HEMATOLOGY Basophils 0.4 % 0.0 - 1.0 05/30 [facility] HEMATOLOGY Lymphocytes 24.4 % 20.0 - 05/30 MH 40.0 /2016 [facility] HEMATOLOGY Lymphocytes 0.9 K/CMM 1.0 - 5.5 05/30 MH # /2016 [facility] HEMATOLOGY Segs 63.6 % 45.0 - 05/30 75.0 [facility] Chest Chest [facility] Clinical Indication: - chf; 05/30 - [facility] DX DX /2016 - [facility] Comparison: December 28, 2015 Read by: Juwan [...] placement. 2. No focal infiltrates . SL: [id number] CHEM PANEL eGFR 41 11/03 Result Comment: [...] is not recommended in the following populations: [address] Individuals with unstable creatinine concentrations, including [...] Lvl 8.5 mg/dL 8.5 - 10.5 11/03 [facility] CHEM PANEL AGAP 10.9 meq/L 10.0 - 11/03 20.0 [facility] CHEM PANEL Chloride Lvl 105 meq/L 95 - 109 11/03 [place] CHEM PANEL CO2 27 meq/L 24 - 32 11/03 [facility] CHEM PANEL Sodium Lvl 139 meq/L 135 - 145 11/03 [facility] CHEM PANEL Potassium 3.9 meq/L 3.5 - 5.1 11/03 Lvl [facility] CHEM PANEL BUN 20 mg/dL 7 - 22 11/03 [facility] CHEM PANEL Glucose Lvl 165 mg/dL 70 - 99 11/03 [facility] CHEM PANEL Creatinine 1.54 mg/dL 0.50 - 11/03 Lvl 1.40 [facility] CARDIAC BNP 720 pg/mL <=100 11/03 [place] pg/mL /2016 [facility] CHEM PANEL Phosphorus 4.1 mg/dL 2.5 - 4.5 11/03 [facility] CHEM PANEL Magnesium 1.9 mg/dL 1.8 - 2.4 11/03 Lv [facility] LIPIDS VLDL 26 11/03 [facility] LIPIDS Trig 129 mg/dL <=149 11/03 mg/dL [facility] LIPIDS HDL 32 mg/dL >=61 mg/dL 11/03 [facility] LIPIDS Chol 97 mg/dL <=199 11/03 mg/dL [facility] LIPIDS LDL 39 mg/dL <=99 mg/dL 11/03 (Calculated) [facility] LIPIDS CHD Risk 3.03 4.00 - 11/03 MH 7.30 [facility] CARDIAC Troponin-I 0.04 ng/mL 0.00 - 11/03 ENZYMES 0.40 [facility] CARDIAC Total CK 68 unit/L 11/03 ENZYMES /2016 [facility] CARDIAC Total CK 65 unit/L 11/03 ENZYMES /2016 [facility] CARDIAC Troponin-I 0.04 ng/mL 0.00 - 11/03 ENZYMES 0.40 [facility] CARDIAC BNP 626 pg/mL <=100 11/02 ENZYMES pg/mL [facility] CARDIAC Troponin-I 0.04 ng/mL 0.00 - 11/02 ENZYMES 0.40 [facility] CARDIAC Total CK 64 unit/L 11/02 ENZYMES [facility] CARDIAC Total CK 64 unit/L 11/02 ENZYMES [facility] CARDIAC Troponin-I 0.05 ng/mL 0.00 - 11/02 ENZYMES 0.40 [facility] CHEM PANEL Magnesium 1.9 mg/dL 1.8 - 2.4 11/02 Lvl [facility] CHEM PANEL B/C Ratio 13 6 - 25 11/02 [facility] CHEM PANEL AGAP 13.6 meq/L 10.0 - 11/02 20.0 [facility] CHEM PANEL Globulin 2.9 g/dL 2.7 - 4.2 11/02 [facility] CHEM PANEL A/G Ratio 1.2 0.7 - 1.6 11/02 [facility] CHEM PANEL eGFR 39 11/02 Result Comment: [...] is not recommended in the following populations: [facility] 3m2 Individuals with unstable creatinine concentrations, including [...] Lvl 320 mg/dL 70 - 99 11/02 [facility] HEMATOLOGY Lymphocytes 0.9 K/CMM 1.0 - 5.5 11/02 MH # /2017 [facility] HEMATOLOGY Segs-Bands # 2.4 K/CMM 1.5 - 8.1 11/02 [facility] HEMATOLOGY Eosinophils 0.1 K/CMM 0.0 - 0.5 11/02 MH # /2017 [facility] HEMATOLOGY Monocytes # 0.3 K/CMM 0.0 - 0.8 11/02 [facility] HEMATOLOGY Segs 66.4 % 45.0 - 11/02 MH 75.0 /2016 [facility] HEMATOLOGY Lymphocytes 24.2 % 20.0 - 11/02 MH 40.0 [facility] HEMATOLOGY Monocytes 7.1 % 2.0 - 12.0 11/02 [facility] HEMATOLOGY Eosinophils 1.9 % 0.0 - 4.0 11/02 [facility] HEMATOLOGY Basophils 0.4 % 0.0 - 1.0 11/02 [facility] Platelet 97 K/CMM 133 - 450 11/02 [facility] MPV 9.8 fL 7.4 - 10.4 11/02 [facility] HEMATOLOGY RDW 13.8 % 11.5 - 11/02 MH 14.5 [facility] WBC 3.6 K/CMM 3.7 - 10.4 11/02 [facility] HEMATOLOGY RBC 3.45 M/CMM 4.70 - 11/02 MH 6.10 [facility] Hgb 10.5 g/dL 14.0 - 11/02 MH 18.0 [facility] Hct 30.8 % 42.0 - 11/02 MH 54.0 [facility] MCV 89.3 fL 80.0 - 11/02 MH 94.0 [facility] MCHC 34.2 g/dL 32.0 - 11/02 MH 36.0 [facility] MCH 30.6 pg 27.0 - 11/02 MH 31.0 [facility] Hgb A1C 7.4 % <=5.6 % 11/02 [facility] CHEM PANEL eGFR 52 12/29 Result Comment: [...] is not recommended in the following populations: [facility] 3m2 Individuals with unstable creatinine concentrations, including [...] mg/dL 1.8 - 2.4 12/29 Lvl /2015 [facility] HEMATOLOGY MCV 93.2 fL 80.0 - 12/29 MH 94.0 [facility] HEMATOLOGY Platelet 106 K/CMM 133 - 450 12/29 [facility] HEMATOLOGY MPV 9.3 fL 7.4 - 10.4 12/29 /2015 [facility] HEMATOLOGY MCH 31.2 pg 27.0 - 12/29 MH 31.0 [facility] HEMATOLOGY RDW 14.7 % 11.5 - 12/29 MH 14. [facility] HEMATOLOGY MCHC 33.5 g/dL 32.0 - 12/29 MH 36.0 /2015 [facility] HEMATOLOGY WBC 4.1 K/CMM 3.7 - 10.4 12/29 /2015 [facility] HEMATOLOGY RBC 3.63 M/CMM 4.70 - 12/29 MH 6.10 /2015 [facility] HEMATOLOGY Hct 33.8 % 42.0 - 12/29 MH 54.0 /2015 [facility] HEMATOLOGY Hgb 11.3 g/dL 14.0 - 12/29 MH 18.0 [facility] HEMATOLOGY Eosinophils 0.2 K/CMM 0.0 - 0.5 12/29 MH # /2015 [facility] HEMATOLOGY Segs-Bands # 2.4 K/CMM 1.5 - 8.1 12/29 [facility] HEMATOLOGY Monocytes # 0.4 K/CMM 0.0 - 0.8 12/29 [facility] HEMATOLOGY Lymphocytes 1.1 K/CMM 1.0 - 5.5 12/29 MH # /2016 [facility] HEMATOLOGY Basophils 0.4 % 0.0 - 1.0 12/29 [facility] HEMATOLOGY Eosinophils 4.2 % 0.0 - 4.0 12/29 [facility] HEMATOLOGY Segs 58.6 % 45.0 - 12/29 MH 75.0 /2015 [facility] HEMATOLOGY Monocytes 10.3 % 2.0 - 12.0 12/29 [facility] HEMATOLOGY Lymphocytes 26.5 % 20.0 - 12/29 MH 40.0 /2015 [facility] HEMATOLOGY POC 128 s 12/28 MH Activated /2015 [facility] [employer] HEMATOLOGY PTT 75.4 s 22.9 [...] is not recommended in the following populations: [facility] 3m2 Individuals with unstable creatinine concentrations, including [...] 105 K/CMM 133 - 450 12/28 /2015 [facility] HEMATOLOGY RDW 14.6 % 11.5 - 12/28 MH 14.5 [facility] HEMATOLOGY MCH 30.7 pg 27.0 - 12/28 MH 31.0 /2015 [facility] HEMATOLOGY MCHC 33.2 g/dL 32.0 - 12/28 MH 36.0 /2015 [facility] HEMATOLOGY MPV 9.5 fL 7.4 - 10.4 12/28 [facility] HEMATOLOGY Hct 33.6 % 42.0 - 12/28 MH 54.0 /2015 [facility] HEMATOLOGY Hgb 11.2 g/dL 14.0 - 12/28 MH 18.0 /2015 [facility] HEMATOLOGY RBC 3.63 M/CMM 4.70 - 12/28 MH 6.10 /2015 [facility] HEMATOLOGY MCV 92.5 fL 80.0 - 12/28 MH 94.0 /2015 [facility] HEMATOLOGY WBC 4.3 K/CMM 3.7 - 10.4 12/28 [facility] HEMATOLOGY PTT 47.5 s 22.9 - 12/28 35.8 [facility] LIPIDS VLDL 45 12/28 [facility] LIPIDS LDL 69 mg/dL <=99 mg/dL 12/28 MH (Calculated) /2015 [facility] LIPIDS HDL 31 mg/dL >=61 mg/dL 12/28 [facility] LIPIDS CHD Risk 4.68 4.00 - 12/28 MH 7.30 [facility] LIPIDS Trig 225 mg/dL <=149 12/28 mg/dL /2015 [facility] LIPIDS Chol 145 mg/dL <=199 12/28 mg/dL /2015 [facility] CARDIAC Troponin-I 0.47 ng/mL 0.00 - 12/28 ENZYMES 0.40 /2016 [facility] CARDIAC Total CK 157 unit/L 12 - 191 12/28 ENZYMES /2015 [facility] CARDIAC CK MB Index 3.8 0.0 - 2.5 12/28 ENZYMES /2015 [facility] CARDIAC CK MB 5.9 ng/mL 0.5 - 3.6 12/28 ENZYMES /2015 [facility] HEMATOLOGY PTT 63.8 s 22.9 - 12/28 35.8 [facility] CARDIAC Troponin-I 0.71 ng/mL 0.00 - 12/28 Result ENZYMES 0.40 Comment: [facility] Critical Result(s) called to Ghazal Michael RN at 12/28/2015 20:26 by LS. Read back OK. CARDIAC Total CK 169 unit/L 12 - 191 12/28 ENZYMES [facility] CARDIAC CK MB Index 3.8 0.0 - 2.5 12/28 MH ENZYMES /2015 [facility] CARDIAC CK MB 6.5 ng/mL 0.5 - 3.6 12/28 MH ENZYMES /2015 [facility] CARDIAC CK MB Index 4.9 0.0 - 2.5 12/27 MH ENZYMES /2015 [facility] CARDIAC CK MB 8.8 ng/mL 0.5 - 3.6 12/27 MH ENZYMES [facility] CARDIAC Troponin-I 0.69 ng/mL 0.00 - 12/27 Result ENZYMES 0.40 Comment: [facility] Critical Result(s) called to Gris Caba RN at 12/28/2015 16:14 by LS. Read back OK. CARDIAC Total CK 180 unit/L 12 - 191 12/27 [facility] CARDIAC BNP 402 pg/mL <=100 12/27 ENZYMES pg/mL /2015 [facility] CHEM PANEL Lipase Lvl 73 unit/L 73 - 393 12/27 [facility] CHEM PANEL A/G Ratio 1.1 0.7 - 1.6 12/27 [facility] CHEM PANEL Globulin 3.3 g/dL 2.0 - 4.0 12/27 [facility] CHEM PANEL B/C Ratio 14 6 - 25 12/27 [facility] CHEM PANEL AGAP 9.6 meq/L 10.0 - [...] is not recommended in the following populations: [facility] 3m2 Individuals with unstable creatinine concentrations, including [...] BUN 21 mg/dL 7 - 22 12/27 [facility] HEMATOLOGY Eosinophils 0.1 K/CMM 0.0 - 0.5 12/27 MH # /2016 [facility] HEMATOLOGY Monocytes # 0.3 K/CMM 0.0 - 0.8 12/27 [facility] HEMATOLOGY Segs 66.2 % 45.0 - 12/27 MH 75.0 /2016 [facility] HEMATOLOGY Lymphocytes 0.9 K/CMM 1.0 - 5.5 12/27 MH # /2015 [facility] HEMATOLOGY Basophils 0.6 % 0.0 - 1.0 12/27 [facility] HEMATOLOGY Segs-Bands # 2.8 K/CMM 1.5 - 8.1 12/27 [facility] HEMATOLOGY Monocytes 7.9 % 2.0 - 12.0 12/27 [place] HEMATOLOGY Eosinophils 3.2 % 0.0 - 4.0 12/27 /2015 [facility] HEMATOLOGY Lymphocytes 22.1 % 20.0 - 12/27 MH 40.0 /2015 [facility] HEMATOLOGY INR 1.04 0.85 - 12/27 MH 1.17 /2015 [facility] HEMATOLOGY PT 13.9 s 12.0 - 12/27 MH 14.7 /2015 [facility] HEMATOLOGY Hct 36.1 % 42.0 - 12/27 MH 54.0 /2015 [facility] HEMATOLOGY Hgb 12.0 g/dL 14.0 - 12/27 MH 18.0 /2015 [facility] HEMATOLOGY RBC 3.89 M/CMM 4.70 - 12/27 MH 6.10 /2015 [facility] HEMATOLOGY MPV 9.4 fL 7.4 - 10.4 12/27 [facility] HEMATOLOGY Platelet 115 K/CMM 133 - 450 12/27 [facility] RDW 14.7 % 11.5 - 12/27 14.5 /2015 [facility] MCHC 33.1 g/dL 32.0 - 12/27 MH 36.0 /2015 [facility] MCV 92.8 fL 80.0 - 12/27 94.0 /2015 [facility] MCH 30.7 pg 27.0 - 12/27 MH 31.0 /2015 [facility] WBC 4.2 K/CMM 3.7 - 10.4 12/27 [facility] Chest Chest 1view Clinical Indication: Left-sided chest pain 12/27 - 1view DX DX - [facility] Comparison: 05/12/2015 Read by: Edna Schrader MD [...] IMPRESSION: No acute infiltrates or effusions. SL: [id number] CHEM PANEL Phosphorus 3.7 mg/dL 2.5 - 4.5 05/22 [facility] /[address] [place] [address] CHEM PANEL Magnesium 2.1 mg/dL 1.8 - 2.4 05/22 [facility] CHEM PANEL eGFR 49 05/22 Result Comment: The eGFR is calculated using the CKD-EPI formula. In most young, healthy individuals the eGFR will be >90 mL/ min/1.73m2. The eGFR declines with age. An eGFR of 60-89 may be normal in [facility] mL/min/1.7 /2014 some populations, particularly the elderly, for whom the CKD-EPI formula has not been extensively validated. Use of the eGFR is not recommended in the following populations: [address] Individuals with unstable creatinine concentrations, including [...] Lvl 8.2 mg/dL 8.5 - 10.5 05/22 [facility] CHEM PANEL Creatinine 1.35 mg/dL 0.50 - 05/22 [facility] Lvl 1.40 [facility] CHEM PANEL Chloride Lvl 108 meq/L 95 - 109 05/22 [facility] CHEM PANEL CO2 26 meq/L 24 - 32 05/22 [facility] CHEM PANEL Sodium Lvl 141 meq/L 135 - 145 05/22 [facility] CHEM PANEL Potassium 4.5 meq/L 3.5 - 5.1 05/22 [facility] l [facility] CHEM PANEL Glucose Lvl 110 mg/dL 70 - 99 05/22 [facility] CHEM PANEL BUN 22 mg/dL 7 - 22 05/22 [facility] CHEM PANEL AGAP 11.5 meq/L 10.0 - 05/22 20.0 [facility] HEMATOLOGY RDW 13.1 % 11.5 - 05/22 14.5 [facility] HEMATOLOGY MCHC 32.5 g/dL 32.0 - 05/22 [place] 36.0 [facility] HEMATOLOGY MCH 32.3 pg 27.0 - 05/22 31.0 [facility] HEMATOLOGY MCV 99.6 fL 80.0 - 05/22 [facility] 94.0 [facility] HEMATOLOGY Hct 31.2 % 42.0 - 05/22 [place] 54.0 /2015 [facility] HEMATOLOGY MPV 9.4 fL 7.4 - 10.4 05/22 /2014 [facility] HEMATOLOGY Platelet 127 K/CMM 133 - 450 05/22 /2014 [facility] HEMATOLOGY Hgb 10.1 g/dL 14.0 - 05/22 [place] 18.0 /2014 [facility] HEMATOLOGY RBC 3.14 M/CMM 4.70 - 05/22 [place] 6.10 /2014 [facility] HEMATOLOGY WBC 4.4 K/CMM 3.7 - 10.4 05/22 [facility] HEMATOLOGY Eosinophils 0.2 K/CMM 0.0 - 0.5 05/22 [facility] # /2015 [facility] HEMATOLOGY Monocytes # 0.5 K/CMM 0.0 - 0.8 05/22 [facility] HEMATOLOGY Lymphocytes 19.4 % 20.0 - 05/22 [facility] 40.0 /2014 [facility] HEMATOLOGY Segs 64.5 % 45.0 - 05/22 [facility] 75.0 /2014 [facility] HEMATOLOGY Lymphocytes 0.9 K/CMM 1.0 - 5.5 05/22 [facility] # /2015 [facility] HEMATOLOGY Segs-Bands # 2.8 K/CMM 1.5 - 8.1 05/22 [facility] HEMATOLOGY Basophils 0.5 % 0.0 - 1.0 05/22 [facility] HEMATOLOGY Eosinophils 3.9 % 0.0 - 4.0 05/[address] [place] [address] HEMATOLOGY Monocytes 11.7 % 2.0 - 12.0 05/[address] [place] [address] HVI VAS HVI VAS INDICATION: groin hematoma 05/22 - [facility] Arterial/b Arterial/by /2014 - [facility] ypass ass Lower This report was dictated by a [employer]/ Fellow. I have personally reviewed the images [...] fistula. CARDIAC Troponin-T 0.014 0.000 - 05/21 [facility] ENZYMES ng/mL 0.100 /2014 [facility] CARDIAC Troponin-I 0.04 ng/mL 0.00 - 12 [facility] ENZYMES 0.40 /2014 [facility] CARDIAC Total CK 34 unit/L 12 - 191 05/21 [facility] ENZYMES /2014 [facility] CHEM PANEL eGFR 63 05/21 Result Comment: The eGFR is calculated using the CKD-EPI formula. In most young, healthy individuals the eGFR will be >90 mL/ min/1.73m2. The eGFR declines with age. An eGFR of 60-89 may be normal in [facility] mL/min/1.7 some populations, particularly the elderly, for whom the CKD-EPI formula has not been extensively validated. Use of the eGFR is not recommended in the following populations: [address] Individuals with unstable creatinine concentrations, including [...] PANEL AGAP 15.1 meq/L 10.0 - 05/21 [facility] 20.0 [facility] CHEM PANEL Calcium Lvl 8.5 mg/dL 8.5 - 10.5 05/21 [facility] CHEM PANEL CO2 20 meq/L 24 - 32 05/21 [facility] /2014 [facility] CHEM PANEL Creatinine 1.09 mg/dL 0.50 - 05/21 [facility] CHEM PANEL BUN 17 mg/dL 7 - 22 05/[address] CHEM PANEL Potassium 4.1 meq/L 3.5 - 5.1 05/21 [facility] Lvl /2014 [facility] CHEM PANEL Sodium Lvl 140 meq/L 135 - 145 12/12 [facility] CHEM PANEL Glucose Lvl 177 mg/dL 70 - 99 12 [facility] CHEM PANEL Chloride Lvl 109 meq/L 95 - 109 05/21 [facility] CHEM PANEL Phosphorus 4.2 mg/dL 2.5 - 4.5 05/21 [facility] CHEM PANEL Magnesium 2.2 mg/dL 1.8 - 2.4 05/21 [facility] Lvl [facility] HEMATOLOGY Macrocyte 1+ None [facility] 12:13 AM[facility] HEMATOLOGY Lymphocytes 0.6 K/CMM 1.0 - 5.5 05/21 [facility] # /2014 [facility] HEMATOLOGY Basophils 0.4 % 0.0 - 1.0 05/21 [facility] HEMATOLOGY Monocytes # 0.4 K/CMM 0.0 - 0.8 05/[address] [place] [address] HEMATOLOGY Lymphocytes 15.6 % 20.0 - 05/21 [facility] 40.0 [facility] HEMATOLOGY Segs-Bands # 3.0 K/CMM 1.5 - 8.1 05/[address] [place] [address] HEMATOLOGY Monocytes 8.8 % 2.0 - 12.0 05/21 [facility] HEMATOLOGY Eosinophils 0.7 % 0.0 - 4.0 05/21 [facility] HEMATOLOGY Segs 74.5 % 45.0 - 05/21 [facility] 75.0 [facility] HEMATOLOGY INR 1.11 0.85 - 05/21 [facility] 1.17 [facility] HEMATOLOGY PTT 30.1 s 22.9 - 12 35.8 [facility] HEMATOLOGY PT 14.6 s 12.0 - 12 [facility] 14.7 [facility] HEMATOLOGY Platelet 117 K/CMM 133 - 450 12 [facility] HEMATOLOGY MPV 9.6 fL 7.4 - 10.4 05/21 [facility] HEMATOLOGY MCH 33.1 pg 27.0 - 12 [facility] 31.0 [facility] HEMATOLOGY MCHC 32.9 g/dL 32.0 - 12 [facility] 36.0 [facility] HEMATOLOGY RDW 13.2 % 11.5 - 12/ [facility] 14.5 [facility] HEMATOLOGY Hgb 10.2 g/dL 14.0 - 05/21 [facility] 18.0 [facility] HEMATOLOGY Hct 30.9 % 42.0 - 05/21 [facility] 54.0 /2014 [facility] HEMATOLOGY MCV 100.6 fL 80.0 - 05/21 [facility] 94.0 /2014 [facility] HEMATOLOGY RBC 3.07 M/CMM 4.70 - 05/21 [facility] 6.10 [facility] HEMATOLOGY WBC 4.0 K/CMM 3.7 - 10.4 05/21 [facility] PARATHYROI Ca Norm WB 1.13 1.05 - 05/21 [facility] D PROFILE mMol/L 1. [facility] PARATHYROI Ca Ion WB 1.09 1. - 05/21 [facility] D PROFILE mMol/L 1. [facility] CHEM PANEL Lactic Acid 0.7 mMol/L 0.5 - 2.2 05/20 [facility] CHEM PANEL Magnesium 1.4 mg/dL 1.8 - 2.4 05/20 [facility] CHEM PANEL Phosphorus 3.5 mg/dL 2.5 - 4.5 05/20 [facility] CHEM PANEL eGFR 78 05/20 Result Comment: The eGFR is calculated using the CKD-EPI formula. In most young, healthy individuals the eGFR will be >90 mL/ min/1.73m2. The eGFR declines with age. An eGFR of 60-89 may be normal in [facility] mL/min/1. some populations, particularly the elderly, for whom the CKD-EPI formula has not been extensively validated. Use of the eGFR is not recommended in the following populations: [address] Individuals with unstable creatinine concentrations, including [...] mg/dL 8.5 - 10.5 05/20 Result Comment: [facility] Result(s) called to HANK TANNER at 05/20/2015 14:22_ by CN_. Read back OK. CHEM PANEL AGAP 14.7 meq/L 10.0 - 12 [place] 20.0 /2014 [facility] CHEM PANEL Glucose Lvl 108 mg/dL 70 - 99 12 [facility] CHEM PANEL Sodium Lvl 145 meq/L 135 - 145 12/ [facility] CHEM PANEL Potassium 2.7 meq/L 3.5 - 5.1 12 Result [facility] Lvl /2014 Comment: [facility] Result(s) called to HANK TANENR at 05/20/2015 14:22_ by CN_. Read back OK. CHEM PANEL BUN 12 mg/dL 7 - 22 12 [facility] CHEM PANEL Creatinine 0.92 mg/dL 0.50 - 12 [facility] Lvl 1.40 [facility] CHEM PANEL Chloride Lvl 113 meq/L 95 - 109 05/20 [facility] CHEM PANEL CO2 20 meq/L 24 - 32 12 [facility] HEMATOLOGY PTT >200 22.9 - 05/20 Result [facility] seconds 35.8 Comment: [facility] Result(s) called to Benigno Jennings at 05/20/2015 14:[address] Read back OK. HEMATOLOGY PT 16.3 s 12.0 - 05/20 [place] 14.7 /2014 [facility] HEMATOLOGY INR 1.28 0.85 - 05/20 [place] 1.17 /2014 [facility] HEMATOLOGY Platelet 108 K/CMM 133 - 450 12 [facility] HEMATOLOGY MPV 9.8 fL 7.4 - 10.4 12 [facility] HEMATOLOGY MCV 100.5 fL 80.0 - 05/20 [place] 94.0 /2014 [facility] HEMATOLOGY RDW 13.3 % 11.5 - 12 [place] 14.5 [facility] HEMATOLOGY MCHC 32.9 g/dL 32.0 - 12 [place] 36.0 /2014 [facility] HEMATOLOGY MCH 33.1 pg 27.0 - 12 [place] 31.0 /2014 [facility] HEMATOLOGY RBC 2.95 M/CMM 4.70 - 12/ [place] 6.10 /2014 [facility] HEMATOLOGY Hct 29.7 % 42.0 - 12 [place] 54.0 [facility] HEMATOLOGY Hgb 9.8 g/dL 14.0 - 05/20 [facility] 18.0 /2014 [facility] HEMATOLOGY WBC 3.6 K/CMM 3.7 - 10.4 05/20 [facility] HEMATOLOGY Monocytes 11.3 % 2.0 - 12.0 05/20 [facility] [address] [place] [address] HEMATOLOGY Segs 60.4 % 45.0 - 05/20 [facility] 75.0 /2014 [facility] HEMATOLOGY Lymphocytes 23.3 % 20.0 - 05/20 [place] 40.0 /2014 [facility] HEMATOLOGY Segs-Bands # 2.2 K/CMM 1.5 - 8.1 05/20 [facility] HEMATOLOGY Lymphocytes 0.9 K/CMM 1.0 - 5.5 05/20 [facility] # /2014 [facility] HEMATOLOGY Basophils 0.3 % 0.0 - 1.0 05/20 [facility] HEMATOLOGY Eosinophils 4.7 % 0.0 - 4.0 05/[address] HEMATOLOGY Monocytes # 0.4 K/CMM 0.0 - 0.8 05/[address] HEMATOLOGY Macrocyte 1+ None [facility]en 05[facility]15 1:48 PM) HEMATOLOGY Eosinophils 0.2 K/CMM 0.0 - 0.5 05/20 [facility] /2014 [facility] PARATHYROI Ca Ion WB 1.12 1.05 - 05/20 [facility] D PROFILE mMol/L 1. [facility] PARATHYROI Ca Norm WB 1.09 1.05 - 05/20 [facility] [facility] PROFILE mMol/L 1. [facility] CHEM PANEL Globulin 3.0 g/dL 2.0 - 4.0 05/20 [facility] CHEM PANEL B/C Ratio 15 6 - 25 05/20 [facility] [address] [place] [address] CHEM PANEL Bili Total 0.8 mg/dL 0.2 - 1.3 05/20 [facility] CHEM PANEL A/G Ratio 1.1 0.7 - 1.6 05/[address] CHEM PANEL Alk Phos 73 unit/L 39 - 136 05/[address] CHEM PANEL Albumin Lvl 3.2 g/dL 3.5 - 5.0 05/[address] CHEM PANEL ALT 30 unit/L 0 - 65 12 [facility] CHEM PANEL AST 20 unit/L 0 - 37 12/ [facility] CHEM PANEL Total 6.2 g/dL 6.4 - 8.4 05/20 [facility] Protein [facility] HEMATOLOGY INR 1.06 0.85 - 12 [place] 1.17 /2014 [facility] HEMATOLOGY PT 14.1 s 12.0 - 12 [place] 14.7 /2014 [facility] HEMATOLOGY PTT 67.4 s 22.9 - 12 [place] 35.8 /2014 [facility] HEMATOLOGY Eosinophils 0.2 K/CMM 0.0 - 0.5 12 [place] # /2014 [facility] CHEM PANEL AST 27 unit/L 0 - 37 05/17 [facility] CHEM PANEL ALT 30 unit/L 0 - 65 05/17 [facility] CHEM PANEL Albumin Lvl 3.0 g/dL 3.5 - 5.0 05/17 [facility] CHEM PANEL Alk Phos 65 unit/L 39 - 136 05/17 [facility] CHEM PANEL B/C Ratio 11 6 - 25 05/17 [facility] [address] [place] [address] CHEM PANEL Bili Total 0.8 mg/dL 0.2 - 1.3 05/17 [facility] CHEM PANEL Total 5.6 g/dL 6.4 - 8.4 05/17 [facility] Protein [facility] CHEM PANEL A/G Ratio 1.2 0.7 - 1.6 05/[address] CHEM PANEL Globulin 2.6 g/dL 2.0 - 4.0 05/17 [facility] HEMATOLOGY PTT 58.0 s 22.9 - [...] eGFR of 60-89 may be normal in [facility] mL/min/1.7 /2014 some populations, particularly the elderly, for whom the CKD-EPI formula has not been extensively validated. Use of the eGFR is not recommended in the following populations: [facility] 3m2 Individuals with unstable creatinine concentrations, including [...] Lvl 8.5 mg/dL 8.5 - 10.5 05/15 [facility] ELECTROLYT CO2 27 meq/L 24 - 32 05/15 [facility] ELECTROLYT Sodium Lvl 141 meq/L 135 - 145 05/15 [facility] ELECTROLYT Potassium 3.9 meq/L 3.5 - 5.1 05/15 [facility] Lvl [facility] ELECTROLYT Chloride Lvl 109 meq/L 95 - 109 05/15 [facility] ELECTROLYT Glucose Lvl 117 mg/dL 70 - 99 05/15 [facility] ELECTROLYT Creatinine 1.15 mg/dL 0.50 - 05/15 [facility] Lvl 1.40 [facility] ELECTROLYT BUN 14 mg/dL 7 - 22 05/15 ES [facility] HEMATOLOGY Segs-Bands # 2.7 K/CMM 1.5 - 8.1 05/15 [facility] HEMATOLOGY Lymphocytes 1.2 K/CMM 1.0 - 5.5 05/15 # /2014 [facility] HEMATOLOGY Eosinophils 0.2 K/CMM 0.0 - 0.5 05/15 # /2014 [facility] HEMATOLOGY Monocytes # 0.5 K/CMM 0.0 - 0.8 05/15 [facility] HEMATOLOGY Macrocyte 1+ None Seen 05/15 [facility] *ABN* (05/15/15 4:30 AM) HEMATOLOGY Monocytes 11.6 % 2.0 - 12.0 05/15 [facility] HEMATOLOGY Lymphocytes 25.4 % 20.0 - 05/15 40.0 [facility] HEMATOLOGY Segs 57.5 % 45.0 - 05/15 75.0 [facility] HEMATOLOGY Basophils 0.5 % 0.0 - 1.0 05/15 [facility] HEMATOLOGY Eosinophils 5.0 % 0.0 - 4.0 05/15 [facility] HEMATOLOGY PTT 56.4 s 22.9 - 05/15 MH 35.8 [facility] MCH 33.4 pg 27.0 - 05/15 MH 31.0 /2014 [facility] HEMATOLOGY Hct 32.9 % 42.0 - 05/15 MH 54.0 /2014 [facility] HEMATOLOGY MCV 99.6 fL 80.0 - 05/15 94.0 /2014 [facility] HEMATOLOGY Platelet 104 K/CMM 133 - 450 05/15 [facility] HEMATOLOGY MPV 9.5 fL 7.4 - 10.4 05/15 [facility] HEMATOLOGY RDW 13.4 % 11.5 - 05/15 MH 14.5 [facility] MCHC 33.6 g/dL 32.0 - 05/15 MH 36.0 /2014 [facility] RBC 3.30 M/CMM 4.70 - 05/15 6.10 [facility] Hgb 11.0 g/dL 14.0 - 05/15 18.0 [facility] WBC 4.7 K/CMM 3.7 - 10.4 05/15 [facility] PTT 55.3 s 22.9 - 05/14 MH 35.8 [facility] CHEM PANEL Phosphorus 3.2 mg/dL 2.5 - 4.5 05/14 [facility] CHEM PANEL Magnesium 1.7 mg/dL 1.8 - 2.4 05/14 Lvl [facility] CHEM PANEL eGFR 52 05/14 Result Comment: [...] is not recommended in the following populations: [facility] 3m2 Individuals with unstable creatinine concentrations, including [...] Lvl 108 meq/L 95 - 109 05/14 [facility] CHEM PANEL Potassium 3.9 meq/L 3.5 - 5.1 05/14 MH Lvl /2014 [facility] CHEM PANEL Sodium Lvl 142 meq/L 135 - 145 05/14 [facility] CHEM PANEL Creatinine 1.29 mg/dL 0.50 - 05/14 [facility] Lvl 1.40 /2014 [facility] CHEM PANEL CO2 26 meq/L 24 - 32 05/14 [facility] CHEM PANEL Calcium Lvl 8.2 mg/dL 8.5 - 10.5 05/14 [facility] CHEM PANEL BUN 20 mg/dL 7 - 22 05/14 [facility] CHEM PANEL Glucose Lvl 111 mg/dL 70 - 99 05/14 [facility] CHEM PANEL AGAP 11.9 meq/L 10.0 - 12 MH 20.0 /2014 [facility] HEMATOLOGY MPV 9.3 fL 7.4 - 10.4 05/14 [facility] HEMATOLOGY RDW 13.2 % 11.5 - 05/14 MH 14.5 /2014 [facility] HEMATOLOGY MCHC 33.2 g/dL 32.0 - 12 MH 36.0 /2014 [facility] HEMATOLOGY Platelet 102 K/CMM 133 - 450 05/14 /2014 [facility] HEMATOLOGY MCH 33.2 pg 27.0 - 05/14 MH 31.0 /2014 [facility] HEMATOLOGY Hct 32.7 % 42.0 - 05/14 MH 54.0 /2014 [facility] HEMATOLOGY MCV 99.9 fL 80.0 - 05/14 MH 94.0 /2014 [facility] HEMATOLOGY WBC 5.1 K/CMM 3.7 - 10.4 05/14 /2014 [facility] HEMATOLOGY RBC 3.27 M/CMM 4.70 - 12 MH 6.10 /2014 [facility] HEMATOLOGY Hgb 10.9 g/dL 14.0 - 05/14 MH 18.0 /2014 [facility] HEMATOLOGY Lymphocytes 1.4 K/CMM 1.0 - 5.5 05/14 MH # /2014 [facility] HEMATOLOGY Monocytes # 0.5 K/CMM 0.0 - 0.8 05/14 [facility] HEMATOLOGY Segs-Bands # 3.0 K/CMM 1.5 - 8.1 05/14 /2014 [facility] HEMATOLOGY Basophils 0.5 % 0.0 - 1.0 05/14 [facility] HEMATOLOGY Eosinophils 0.2 K/CMM 0.0 - 0.5 05/14 # /2015 [facility] HEMATOLOGY Macrocyte 1+ None Seen 05/14 [facility] *ABN* (05/14/15 6:20 AM) HEMATOLOGY Segs 58.7 % 45.0 - 05/14 MH 75.0 /2014 [facility] HEMATOLOGY Lymphocytes 26.6 % 20.0 - 12 MH 40.0 /2014 [facility] HEMATOLOGY Monocytes 10.1 % 2.0 - 12.0 05/14 [facility] HEMATOLOGY Eosinophils 4.1 % 0.0 - 4.0 05/14 [facility] CARDIAC Total CK 74 unit/L 12 - 191 05/13 ENZYMES /2014 [facility] CARDIAC Troponin-I 0.69 ng/mL 0.00 - 05/13 Result ENZYMES 0.40 Comment: [facility] Critical Result(s) called to Taz Hebert RN at 05/13/2015 03:08 by shyann. Read back OK. CHEM PANEL Phosphorus 3.0 mg/dL 2.5 - 4.5 05/13 [facility] CHEM PANEL Magnesium 1.8 mg/dL 1.8 - 2.4 05/13 Lvl [facility] ELECTROLYT AGAP 9.0 meq/L 10.0 - 05/13 ES 20.0 [facility] ELECTROLYT eGFR 48 05/13 Result Comment: The [...] is not recommended in the following populations: [facility] 3m2 Individuals with unstable creatinine concentrations, including [...] # 0.4 K/CMM 0.0 - 0.8 05/13 [facility] HEMATOLOGY Macrocyte 1+ None Seen 05/13 [facility] *ABN* (05/13/15 2:07 AM) HEMATOLOGY Segs-Bands # 2.7 K/CMM 1.5 - 8.1 05/13 [facility] HEMATOLOGY Basophils 0.4 % 0.0 - 1.0 05/13 [facility] HEMATOLOGY Eosinophils 3.2 % 0.0 - 4.0 05/13 [facility] HEMATOLOGY Lymphocytes 1.2 K/CMM 1.0 - 5.5 05/13 /2014 [facility] HEMATOLOGY Monocytes 8.6 % 2.0 - 12.0 05/13 [facility] HEMATOLOGY Lymphocytes 27.6 % 20.0 - 05/13 40.0 [facility] HEMATOLOGY Segs 60.2 % 45.0 - 05/13 MH 75.0 [facility] HEMATOLOGY WBC 4.4 K/CMM 3.7 - 10.4 05/13 [facility] HEMATOLOGY RBC 3.33 M/CMM 4.70 - 05/13 MH 6.10 [facility] HEMATOLOGY Platelet 114 K/CMM 133 - 450 05/13 [facility] HEMATOLOGY MPV 10.0 fL 7.4 - 10.4 05/13 [facility] HEMATOLOGY Hgb 11.3 g/dL 14.0 - 05/13 18.0 [facility] HEMATOLOGY Hct 33.1 % 42.0 - 05/13 54.0 /2014 [facility] HEMATOLOGY RDW 13.4 % 11.5 - 05/13 MH 14.5 /2014 [facility] HEMATOLOGY MCV 99.4 fL 80.0 - 05/13 94.0 /2014 [facility] HEMATOLOGY MCH 34.0 pg 27.0 - 05/13 MH 31.0 /2014 [facility] HEMATOLOGY MCHC 34.2 g/dL 32.0 - 05/13 MH 36.0 /2014 [facility] LIPIDS Trig 302 mg/dL <=149 05/13 mg/dL /2014 [facility] LIPIDS VLDL 60 05/13 MH /2014 [facility] LIPIDS Chol 143 mg/dL <=199 05/13 mg/dL /2014 [facility] LIPIDS CHD Risk 5.11 4.00 - 05/13 7.30 /2014 [facility] LIPIDS HDL 28 mg/dL >=61 mg/dL 05/13 [facility] LIPIDS LDL 55 mg/dL <=99 mg/dL 05/13 (Calculated) [facility] CARDIAC CK MB Index 3.9 0.0 - 2.5 05/13 [place]YM[place] /2014 [facility] CARDIAC CK MB 3.3 ng/mL 0.5 - 3.6 05/13 EN[facility]YMES /2014 [facility] CARDIAC Total CK 85 unit/L - 05/13 ENZYMES /2014 [facility] CARDIAC Troponin-I 0.69 ng/mL 0.00 - 05/13 Result ENZYMES 0.40 /2014 Comment: [facility] Critical Result(s) called to Taz Hebert RN at 05/12/2015 22:11 by shyann. Read back OK. HEMATOLOGY INR 1.14 0.85 - 05/13 1.17 /2014 [facility] HEMATOLOGY PT 14.9 s 12.0 - 05/13 14.7 /2014 [facility] CARDIAC BNP 408 pg/mL <=100 05/12 [facility] pg/mL /2014 [facility] CARDIAC Troponin-I 1.25 ng/mL 0.00 - 05/12 Result ENZYMES 0.40 /2014 Comment: [facility] Critical Result(s) called to jose alfredo shearer at _05/12/2015 15:38 bychristian_. Read back OK. CARDIAC Total CK 112 unit/L 12 - 191 05/12 [facility] /2014 [facility] CARDIAC CK MB 4.5 ng/mL 0.5 - 3.6 05/12 [facility] /2014 [facility] CARDIAC CK MB Index 4.0 0.0 - 2.5 05/12 [facility] /2014 [facility] CHEM PANEL Alk Phos 89 unit/L 39 - 136 05/12 [facility] CHEM PANEL B/C Ratio 18 6 - 25 05/12 [facility] CHEM PANEL Bili Total 0.9 mg/dL 0.2 - 1.3 05/12 [facility] CHEM PANEL A/G Ratio 1.1 0.7 - 1.6 05/12 [facility] CHEM PANEL Globulin 3.7 g/dL 2.0 - 4.0 05/12 [facility] CHEM PANEL Total 7.6 g/dL 6.4 - 8.4 05/12 Protein [facility] CHEM PANEL Albumin Lvl 3.9 g/dL 3.5 - 5.0 05/12 [facility] CHEM PANEL AST 33 unit/L 0 - 37 05/12 [facility] CHEM PANEL ALT 34 unit/L 0 - 65 05/12 [facility] HEMATOLOGY INR 1.02 0.85 - 05/12 1.17 /2014 [facility] HEMATOLOGY PT 13.7 s 12.0 - 05/12 MH 14.7 /2014 [facility] URINE AND UA Leuk Est Negative Negative 05/12 STOOL [facility] (05/12/15 2:56 PM) URINE AND UA Bili Negative Negative 05/12 STOOL [facility] *NA* (05/12/15 2:56 PM) URINE AND UA Blood Negative Negative 05/12 STOOL [facility] (05/12/15 2:56 PM) URINE AND UA Nitrite Negative Negative 05/12 STOOL [facility] (05/12/15 2:56 PM) URINE AND UA 0.2 EU/dL 0.1 - 1.0 05/12 STOOL Urobilinogen /2014 [facility] URINE AND UA pH 5.0 5.0 - 8.0 05/12 STOOL [facility] URINE AND UA Color Yellow Yellow 05/12 STOOL [facility] *NA* (05/12/15 2:56 PM) URINE AND UA Glucose Negative Negative 05/12 [facility] mg/dL mg/dL [facility] URINE AND UA Protein Negative Negative 05/12 [facility] mg/dL mg/dL [facility] URINE AND UA Ketones Negative Negative 05/12 [facility] mg/dL mg/dL [facility] URINE AND UA Spec Grav 1.010 <=1.030 05/12 STOOL [facility] URINE AND UA Turbidity Clear Clear 05/12 STOOL [facility] (05/12/15 2:56 PM) URINE AND UA WBC 0-2 /HPF None Seen 05/12 [facility] /HPF /2014 [facility] URINE AND UA Sq Epi None Seen Few 05/12 STOOL [facility] (05/12/15 2:56 PM) URINE AND UA Bacteria None Seen None Seen 05/12 STOOL [facility] (05/12/15 2:56 PM) URINE AND UA RBC None Seen 0 - 2 05/12 [facility] (05/12/15 2:56 PM) Chest Chest 1view Name: GILL MADERA 05/12 [facility] 1view DX DX /2014 - [facility] : 1935 Read by: Snehal Fung MD [...] Renal Renal Stone Name: GILL MADERA 11/13 [facility] Stone CT CT /2013 - Outpatient : 1935 Imaging [facility] Read by: Silverio Mahmood MD Dictated Date/time: [...] reconstructions were obtained and viewed on a [employer] workstation. FINDINGS: A 5 mm calcified granuloma [...] 110 06/29 [place] 1Interpretive GLUCOSE Lifscn Data: [facility] TESTING Upper Reportable Limit: 200 mg/dL. BEDSIDE Gluc POC 180 mg/dL 65 - 110 06/29 [place] 2Interpretive GLUCOSE Lifscn Data: [facility] TESTING Upper Reportable Limit: 200 mg/dL. BEDSIDE Gluc POC 248 mg/dL 65 - 110 06/28 [place] 3Interpretive GLUCOSE Lifscn Data: [facility] TESTING Upper Reportable Limit: 200 mg/dL. CHEMISTRY AGAP 14.6 meq/L 10.0 - 06/26 Normal 20. [facility] CHEMISTRY Calcium Lvl 9.1 mg/dL 8.5 - 10.5 06/26 Normal [facility] CHEMISTRY CO2 27 meq/L 24 - 32 06/26 Normal [facility] CHEMISTRY Chloride Lvl 103 meq/L 95 - 109 06/26 Normal [facility] CHEMISTRY Potassium 4.6 meq/L 3.5 - 5.1 06/26 Normal Lvl [facility] CHEMISTRY Sodium Lvl 140 meq/L 135 - 145 06/26 Normal [facility] CHEMISTRY Creatinine 2.1 mg/dL 0.5 - 1.4 06/26 [facility] Lvl [facility] CHEMISTRY Glucose Lvl 175 mg/dL 06/26 NA 4Interpretive Data: [facility] Reference Ranges : 0 - 7 days : 41 - 90 mg/dL7 days - 150 yrs : 70 - 99 mg/dL (fasting), based on the clinical recommendatio ns of the [place] [employer]. CHEMISTRY BUN 36 mg/dL 7 - 06/26 HI [facility] HEMATOLOGY Basophils # 0.0 K/CMM 0.0 - 0.2 06/26 Normal [facility] HEMATOLOGY Eosinophils 0.1 K/CMM 0.0 - 0.5 06/26 Normal [facility] HEMATOLOGY Eosinophils 1.8 % 0.0 - 4.0 06/26 Normal [facility] HEMATOLOGY Lymphocytes 1.0 K/CMM 1.0 - 5.5 06/26 Normal [facility] HEMATOLOGY Monocytes # 0.3 K/CMM 0.0 - 0.8 06/26 Normal [facility] HEMATOLOGY Basophils 0.5 % 0.0 - 1.0 06/26 Normal MH /2011 [facility] HEMATOLOGY Monocytes 7.7 % 2.0 - 12.0 06/26 Normal MH /2011 [facility] HEMATOLOGY Lymphocytes 23.4 % 20.0 - 06/26 Normal MH 40.0 /2011 [facility] HEMATOLOGY Segs-Bands # 2.8 K/CMM 1.5 - 8.1 06/26 Normal MH /2011 [facility] HEMATOLOGY Segs 66.6 % 45.0 - 06/26 Normal MH 75.0 /2011 [facility] HEMATOLOGY PT 13.7 s 12.0 - 06/26 Normal MH 14.7 /2011 [facility] HEMATOLOGY INR 1.05 0.85 - 06/26 Normal 9Interpretive MH 1. Data: [facility] RECOMMENDED RANGES FOR PROTIME INR: 2.0-3.0 for most medical and surgical thromboemboli c states. 2.5-3.5 for artificial heart valves and recurrent embolism.INR SHOULD BE USED ONLY FOR PATIENTS ON STABLE ANTICOAGULANT THERAPY. HEMATOLOGY MPV 10.0 fL 7.4 - 10.4 06/26 Normal [facility] MCHC 35.5 g/dL 32.0 - 06/26 Normal 36.0 /2011 [facility] HEMATOLOGY RDW 13.4 % 11.5 - 06/26 Normal MH 14.5 /2011 [facility] Platelet 127 K/CMM 133 - 450 06/26 LOW MH /2011 [facility] HEMATOLOGY Hct 32.2 % 42.0 - 06/26 LOW 7Result MH 54.0 Comment: [facility] Reference range changed due to change in patient's gender at 08:43:59. Normal Low changed from not defined to 42.0. Normal High changed from not defined to 54.0. Result flag changed from not applied to L. HEMATOLOGY Hgb 11.4 g/dL 14.0 - 06/26 LOW 6Result MH 18.0 Comment: [facility] Reference range changed due to change in patient's gender at 08:43:59. Normal Low changed from not defined to 14.0. Normal High changed from not defined to 18.0. Result flag changed from not applied to L. HEMATOLOGY MCV 97.1 fL 80.0 - 06/26 HI 8Result MH 94.0 Comment: [facility] Reference range changed due to change in patient's gender at 08:43:59. Normal Low changed from not defined to 80.0. Normal High changed from not defined to 94.0. Result flag changed from not applied to H. HEMATOLOGY MCH 34.5 pg 27.0 - 06/26 [facility] 31.0 [facility] HEMATOLOGY RBC 3.32 M/CMM 4.70 - 06/26 LOW 5Result 6.10 Comment: [facility] Reference range changed due to change in patient's gender at 08:43:59. Normal Low changed from not defined to 4.70. Normal High changed from not defined to 6.10. Result flag changed from not applied to L. HEMATOLOGY WBC 4.2 K/CMM 3.7 - 10.4 06/26 Normal [facility] Vital Signs Vital Sign Value Date Comments Source Respitory Rate 19 08/06/2017 [facility] Systolic (mm Hg) 131 08/06/2017 [facility] Diastolic (mm Hg) 62 08/06/2017 [facility] Respitory Rate 18 08/06/2017 [facility] Systolic (mm Hg) 131 08/06/2017 [facility] Diastolic (mm Hg) 62 08/06/2017 [facility] Respitory Rate 19 08/06/2017 [facility] Systolic (mm Hg) 121 08/06/2017 [facility] Diastolic (mm Hg) 64 08/06/2017 [facility] Weight 90.909 08/06/2017 [facility] BMI Calculated 28.76 08/06/2017 [facility] Height 177.8 cm 08/06/2017 [facility] Temperature Oral (F) 97.6 F 08/06/2017 [facility] Heart Rate 68 08/06/2017 [facility] Respitory Rate 20 05/30/2017 [facility] Heart Rate 58 05/30/2017 [facility] Systolic (mm Hg) 132 05/30/2017 [facility] Diastolic (mm Hg) 68 05/30/2017 [facility] Temperature Oral (F) 98.1 F 05/30/2017 [facility] [...] 11/03/2016 [facility] Diastolic (mm Hg) 64 11/03/2016 [facility] Temperature Oral (F) 97.6 F 11/03/2016 [facility] Heart Rate 66 11/03/2016 [facility] Temperature Oral (F) 98.2 F 11/03/2016 [facility] Heart Rate 68 11/03/2016 [facility] Respitory Rate 18 11/03/2016 [facility] Systolic (mm Hg) 101 11/03/2016 [facility] Diastolic (mm Hg) 50 11/03/2016 [facility] Systolic (mm Hg) 121 11/03/2016 [facility] Diastolic (mm Hg) 56 11/03/2016 [facility] Respitory Rate 18 11/03/2016 [facility] Heart Rate 65 11/03/2016 [facility] Temperature Oral (F) 98.2 F 11/03/2016 [facility] Respitory Rate 18 11/03/2016 [facility] BMI Calculated 28.04 11/03/2016 [facility] Height 172.72 [...] Hg) 65 12/30/2015 [facility] Weight 82.273 12/30/2015 [facility] Temperature Oral (F) 98.2 F 12/30/2015 [facility] Heart Rate 64 12/30/2015 [facility] Systolic (mm Hg) 130 12/30/2015 [facility] Diastolic (mm Hg) 64 12/30/2015 [facility] Respitory Rate 16 12/30/2015 [facility] BMI Calculated 28.82 12/28/2015 [facility] Weight 83.455 12/28/2015 [facility] Height 170.18 cm 12/28/2015 [facility] BMI Calculated 29.25 12/28/2015 [facility] Height 170.18 cm 12/28/2015 [facility] Weight 84.716 12/28/2015 [facility] Systolic (mm Hg) 104 05/22/2015 [facility] Diastolic (mm Hg) 52 05/22/2015 [facility] Systolic (mm Hg) 109 05/22/2015 [facility] Diastolic (mm Hg) 52 05/22/2015 [facility] Temperature Oral (F) 98.2 F 05/22/2015 [facility] Systolic (mm Hg) 140 05/22/2015 [facility] Diastolic (mm Hg) 66 05/22/2015 [facility] Temperature Oral (F) 98.2 F 05/21/2015 [facility] Temperature Oral (F) 98.0 F 05/21/2015 [facility] Respitory Rate 20 05/20/2015 [facility] Heart Rate 63 05/20/2015 [facility] Respitory Rate 18 05/20/2015 [facility] Heart Rate 63 05/20/2015 [facility] Heart Rate 73 05/20/2015 [facility] Respitory Rate 18 05/20/2015 [facility] BMI Calculated 29.35 05/17/2015 [facility] Height 170.18 cm 05/17/2015 [facility] Weight 85 05/17/2015 [facility] Systolic (mm Hg) 144 05/17/2015 [facility] Diastolic [...] 70 06/29/2011 [facility] Heart Rate 90 06/29/2011 [facility] Temperature Oral (F) 98.0 F 06/29/2011 [facility] Respitory Rate 20 06/29/2011 [facility] Systolic (mm Hg) 137 06/29/2011 [facility] Weight 94.545 06/26/2011 [facility] Height 170.18 cm 06/26/2011 [facility] Encounters Location Location Encounter Encounter Reason Attending ADM DC Status Source Details Type Number For Provider Date Date Visit Not Sent YOANDY [id number] CHRONIC PING WING 06/28 06/29 Active 0 SYSTOLIC /2011 [facility] FAIL[facility] 428.22 ANGINA 413.9. [facility] Outpt Diag [id number] [place] 11/13 11/14 [facility] Outpatient Services 0 [facility] Cardi[facility] STRESS TEST [id number] 12/17 12/17 Cardiova ular [id number] /2013 [id number] 18d Cardiovasc STRESS TEST [id number] 12/17 12/17 [facility] [id number] /2013 [id number] bb9 Cardiovasc STRESS TEST [id number] 12/17 12/17 [facility] [id number] /2013 [id number] [facility] c19 Cardiovasc STRESS TEST [id number] 12/17 12/17 [facility] [id number] /2013 [id number] [facility] c2a Cardiovasc STRESS TEST [id number] 12/17 12/17 [facility] [id number] /2013 [id number] [facility] 790 Cardiovasc STRESS TEST [id number] 12/17 12/17 [facility] [id number] /2013 [id number] eaf Cardiovasc STRESS TEST [id number] 12/17 12/17 [facility] [id number] /2013 [id number] [facility] 8e8 Cardiovasc STRESS TEST [id number] 12/17 12/17 [facility] [id number] /2013 [id number] [facility] 8f0 Cardiovasc STRESS TEST [id number] 12/17 12/17 Cardiova ular f5-40ef-8e /2013 [facility]l1 [facility] 188 Cardiovasc STRESS TEST [id number] 12/17 12/17 Cardiova ular c8-62e1-608 /2013 [facility] e[facility][id number] [facility] a47 Cardiovasc Established 3f4623g7-2j 12/17 12/17 Cardiova ular Patient c6-4247-8ae /2013 [facility] b-[id number] [facility] 523 Cardiovasc Established s989j7r6-50 12/17 12/17 Cardiova ular Patient 3b-0ue8-y49 /2013 [facility] 4-20i699k25 [facility] 6c1 Cardiovasc Established [id number] 12/17 12/17 Cardiova ular Patient f1-4817-bfa /2013 [facility] e-4p4p66mj7 [facility] 31e Cardiovasc Established [id number] 12/17 12/17 Cardiova ular Patient 4a-2rv8-x6m /2013 [facility] c-[id number] [facility] c3c Cardiovasc Established [id number] 12/17 12/17 Cardiova ular Patient 2b-5f37-832 /2013 [facility] 1-6750dzs38 [facility] dc5 Cardiovasc Established [id number] 12/17 12/17 Cardiova ular Patient 63-36e9-080 /2013 [facility]n3lkn977f [facility] 99c Cardiovasc Established ic73f784-w1 12/17 12/17 Cardiova ular Patient 89-4867-853 /2013 [facility] c-[id number] [facility] acf Cardiovasc Established 353d6w88-f0 12/17 12/17 Cardiova ular Patient 0a-44fd-b7 [facility] a-2y735y915 [facility] 2ca Cardiovasc Established [id number] 12/17 12/17 Cardiova ular Patient 20-4590-8a6 [facility] 5-6631sj3md [facility] 4e4 Cardiovasc Established 95gfe6d2-zb 12/17 12/17 Cardiova ular Patient f0-4996-bbc [facility] a-q9d81y10z [facility] e92 Cardiovasc Established 2207z18q-jf 03/19 03/19 Cardiova ular Patient c9-49fa-9af [facility] 7-000h94356 [facility] 99e Cardiovasc Established [id number] 03/19 03/19 Cardiova ular Patient b5-2w7d-700 /2013 [facility] [id number] [facility] e95 Cardiovasc Established [id number]-g2 03/19 03/19 Cardiova ular Patient ea-425a-99b /2013 [facility] e-7kr6snqk8 [facility] 365 Cardiovasc Established 51x6o304-5d 03/19 03/19 Cardiova ular Patient e1-71n6-f8q /2013 [facility]-64q05l7mr [facility] 096 Cardiovasc Established 3qvtz387-14 03/19 03/19 Cardiova ular Patient 84-1u03-375 /2013 [facility]-2a4l9yj6o [facility] 0e7 Cardiovasc Established [id number]-90 03/19 03/19 Cardiova ular Patient b8-4644-860 /2013 [facility] e-[id number] [facility] 1d9 Cardiovasc Established 2i47u58g-9t 03/19 03/19 Cardiova ular Patient 3e-7h77-70x /2013 [facility]-5873bfecc [facility] 94f Cardiovasc Established [id number] 03/19 03/19 Cardiova ular Patient 2a-4897-a60 /2013 [facility] e-[id number] [facility] a8b Cardiovasc Established 89i3n5d2-db 03/19 03/19 Cardiova ular Patient 80-3ak8-n5d /2013 [facility] 7-[id number] [facility] c27 Cardiovasc Established [id number] 03/19 03/19 Cardiova ular Patient a6-46cc-8a6 [facility] c-xmsp0m2ow [facility] 33a Cardiovasc Established 4x0km23l-o1 06/25 06/25 Cardiova ular Patient 2b-495e-9b9 /2014 [facility] 3-62x49hvvc [facility] a45 Cardiovasc Established [id number] 06/25 06/25 Cardiova ular Patient 27-7y36-41d /2014 [facility] [id number] [facility] [place] Cardiovasc Established [id number]-e6 06/25 06/25 Cardiova ular Patient 3f-6m84-95y /2014 [facility] 4-1ss5c0n62 [facility] e6e Cardiovasc Established p5q30gb4-ia 06/25 06/25 Cardiova ular Patient 38-5s3j-e6m /2014 [facility] c-1yq5u5l9y [facility] 92b Cardiovasc Established t979m55d-vw 06/25 06/25 Cardiova ular Patient 27-3s4x-435 /2014 [facility] 1-i3x9h9750 [facility] 1fb Cardiovasc Established 115gul96-30 06/25 06/25 Cardiova ular Patient 87-2a75-w93 /2014 [facility] e-d6615o12l [facility] bf1 Cardiovasc Established [id number] 06/25 06/25 Cardiova ular Patient b4-4161-977 /2014 [facility] [id number] [facility] 5fc Cardiovasc [place] 437ri464-j4 08/06 08/06 Cardiova ular refill 81-56k2-r19 /2014 [facility] 9-[id number] [facility] a59 Cardiovasc [place] [id number]-88 08/06 08/06 Cardiova ular refill f7-4965-882 /2014 [facility] f-y447f0ezq [facility] 2ae Cardiovasc [place] 0858pej2-4a 08/06 08/06 Cardiova ular refill 09-400c-874 /2014 [facility] 2-232ybz1z5 [facility] 751 Cardiovasc [place] hh81p7g3-2h 08/06 08/06 Cardiova ular refill 28-3c4g-8as /2014 [facility] d-8bni8io29 [facility] 3d8 Cardiovasc [place] 6u80s642-17 08/06 08/06 Cardiova ular refill f7-41w8-044 /2014 [facility] f-[id number] [facility] 2ee Cardiovasc [place] i99a5r86-5j 08/06 08/06 Cardiova ular refill 97-463c-8f0 /2014 [facility] a-[id number] [facility] 472 Cardiovasc Unknown [id number] 08/18 08/18 Cardiova ular b0-3vk5-5si /2014 [facility] 1-9j557p4vj [facility] d59 Cardiovasc Unknown [id number] 08/18 08/18 Cardiova ular 87-4089-b16 /2014 [facility] 9-r8jv9e582 [facility] a62 Cardiovasc Unknown [id number] 08/18 08/18 Cardiova ular 53-4bcf-b56 /2014 [facility] b-[id number] [facility] 242 Cardiovasc Unknown [id number] 08/18 08/18 Cardiova ular 60-42ba-9e5 /2014 [facility] b-87z4wc1b0 [facility] a07 Cardiovasc Unknown [id number] 08/18 08/18 Cardiova ular c3-4109-a23 /2014 [facility] [id number] [facility] 85e Cardiovasc Unknown [id number] 08/18 08/18 Cardiova ular 1c-5a86-x1s /2014 [facility] f-xncbb78f5 [facility] [place] Cardiovasc chest pain. 3748n951-5e 10/07 10/07 Cardiova ular 10/06 7e-4aee-8d3 /2014 [facility] 7-3b9m2m143 [facility] 12d Cardiovasc chest pain. 3a4vkk18-w0 10/07 10/07 Cardiova ular 10/06 9c-91d5-13o /2014 [facility]atio d-10009nh77 [facility] 40e Cardiovasc chest pain. epf01rja-4w 10/07 10/07 Cardiova ular 10/06 0b-4419-829 /2014 [facility] a-t5j7j2mws [facility] cc8 Cardiovasc chest pain. 854zomv4-0h 10/07 10/07 Cardiova ular 10/06 a2-38h2-f5r /2014 [facility] 4-c3k3p5206 [facility] e95 Cardiovasc chest pain. w2a7f8m4-76 10/07 10/07 Cardiova ular 10/06 33-4083-959 /2014 [facility] a-a8d7ue6kk [facility] d6e Cardiovasc chest pain. i239cc1s-66 10/07 10/07 Cardiova ular 10/06 77-3n7z-96b /2014 [facility]-26537a1js [facility] 512 Cardiovasc Established 4a2y6b0s-o9 01/18 01/18 Cardiova ular Patient 41-21h9-s90 /2014 [facility] b-wn16u46l6 [facility] e4e Cardiovasc Established [id number] 01/18 01/18 Cardiova ular Patient 88-4305-97e /2014 [facility] a[facility]ebqw86wox [facility] 57a Cardiovasc Established [id number] 01/18 01/18 Cardiova ular Patient c3-8jk0-e2y /2014 [id number] [facility] 09c Cardiovasc Established [id number] 01/18 01/18 Cardiova ular Patient c0-4dde-bcf /2014 [facility] a-6f9c6z271 [facility] ea8 Cardiovasc Established [id number] 01/18 01/18 Cardiova ular Patient 6c-470f-80b /2014 [facility]-0no64ls57 [facility] b26 Cardiovasc Established 189gq990-r5 01/18 01/18 Cardiova ular Patient b6-41ae-98a /2014 [facility] 3-21k8tzc10 [facility] 338 Cardiovasc possible [id number] 05/11 05/11 Cardiova ular heart b7-4ne6-m11 /2014 [facility]ular Associatio attack [id number] [facility] 24b Cardiovasc possible 0605wn4n-62 05/11 05/11 Cardiova ular heart fb-4182-830 /2014 [facility] Associatio attack 3-99o364c04 [facility] 4a0 Cardiovasc possible [id number] 05/11 05/11 Cardiova ular heart 37-4717-94b /2014 [facility]ular Associatio attack 0-7gq16y056 [facility] 39d Cardiovasc possible e69r442t-zp 05/11 05/11 Cardiova ular heart 33-42af-a79 /2014 scular Associatio attack c-036nk4a1g [facility] ad0 Cardiovasc possible [id number] 05/11 05/11 Cardiova ular heart 87-4156-9e6 /2014 [facility] Associatio attack 8-7369wg769 [facility] 6cc Cardiovasc possible [id number]-pk 05/11 05/11 Cardiova ular heart fb-479c-ac9 /2014 scular Associatio attack e-[id number] [facility] af7 Cardiovasc Established 78pid4nc-86 05/12 05/12 Cardiova ular Patient a5-5ab9-28n /2014 [facility] Associatio 6-2ojff10y2 [facility] 5a7 Cardiovasc Established [id number] 05/12 05/12 Cardiova ular Patient 18-4fda-9fe /2014 [facility] Associatio [id number] [facility] 97a Cardiovasc Established [id number] 05/12 05/12 Cardiova ular Patient a3-451e-8cd /2014 [facility]ular Associatio 3-328v479ff [facility] 0da Cardiovasc Established loy81g9k-2n 05/12 05/12 Cardiova ular Patient d2-0b70-e1c /2014 [facility] Associatio 8-7hfho610e [facility] 3a7 Cardiovasc Established [id number] 05/12 05/12 Cardiova ular Patient a0-4ebb-9b8 /2014 scular Associatio d-[id number] [facility] a0a Cardiovasc Established 4v311z2p-uu 05/12 05/12 Cardiova ular Patient 1f-7q3s-tg5 /2014 scular Associatio [id number] [facility] 1ea [facility] [id number] [facility] 05/12 05/17 Harley 1 [facility] [id number] [facility] 05/[facility] 05/22 [facility] 1 At[place] /2014 [facility] Cardiovasc Pt in 9y39vb0s-37 05/18 05/18 Cardiova ular [facility] 8e-432a-864 /2014 scular Associatio 05/18 d-[id number] [facility] d79 Cardiovasc Pt in [id number] 05/18 05/18 Cardiova ular [facility] 9f-0zy8-47g /2014 scular Associatio 05/18 2-3v6653j0c [facility] e58 Cardiovasc Pt in [id number] 05/18 05/18 Cardiova ular [facility] b3-9m63-0k7 /2014 scular Associatio 05/18 1-232a8442i [facility] 87e Cardiovasc Pt in 43j74v85-89 05/18 05/18 Cardiova ular [facility] d0-4770-ac3 /2014 scular Associatio 05/18 c-h0v1p0tzf [facility] e6c Cardiovasc [place] [id number]-uk 10/18 10/18 Cardiova ular [facility] fe-0wz1-0zv /2015 scular Associatio 3-r1p6np4m6 [facility] 6b3 Cardiovasc [place] [id number] 10/18 10/18 Cardiova ular [facility] 28-7fr4-65v /2015 scular Associatio [id number] [facility] 9b9 Cardiovasc [place] 58q327h2-61 10/18 10/18 Cardiova ular [place] f9-6p18-f3f /2015 scular Associatio a-[id number] [facility] b98 Cardiovasc chest pain [id number]-29 12/27 12/27 Cardiova ular 2a-8x1z-q00 /2015 scular Associatio c-8x29f07ft [facility] 5ea Cardiovasc chest pain 678g1w0g-46 12/27 12/27 Cardiova ular c9-3j24-520 /2015 scular Associatio 4-6e5b5f5l9 [facility] 536 [facility] [id number] [place] 12/27 12/29 Harley 2 Ajelabi /2015 [facility] Cardiovasc Established [id number] 04/10 04/10 Cardiova ular Patient 5d-4bbd-87d /2015 scular Associatio e-[id number] [facility] bbf [facility] [id number] Janeth 11/02 11/03 Harley 7 Jagdeep /2016 [facility] [id number] Shahzad 05/30 05/30 Harley 3 [facility] [id number] Vanda 08/06 08/06 Cj Souza 4 Nick /2017 [facility] Procedures Procedure Code Date Perfomer Comments Source CABG x 2 - [id number] [facility] Coronary artery bypass grafts x 2 Excision of [id number] [facility] gallbladder CABG x 2 - [id number] [facility] artery [facility] bypass grafts x 2 Excision of [id number] [facility] Angioplasty [id number] [facility] Angioplasty [id number] [facility] CABG x 2 - [id number] The Coronary artery [place] bypass grafts x 2 Excision of [id number] The gallbladder [place]
--- OUTSIDE RECORDS SUMMARY | 2018-01-11 00:57 | XMS REPORT ---
:1935 Author Organization eClinicalWorks Care Team Providers Name Role Phone PHYLLIS [place] Provider Role Unavailable Allergies, Adverse Reactions, Alerts Substance Reaction Event Type N.K.D.A. 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 Problem Presence of coronary angioplasty Z95.5 Active implant and graft Problem Hyperlipidemia, unspecified E78.5 Active Problem Hypothyroidism, unspecified E03.9 Active Problem 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 Problem 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 Assessment 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 Assessment Hyperlipidemia, unspecified E78.5 Active Assessment 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 Medications Medication Code System Code Instructions Start Date End Date Status Dosage spironolactone NDC 15599 25 mg orally bid Active 1 tab(s) Glumetza NDC 53033 500 mg orally bid Active 1 tab(s) clopidogrel NDC 11409 75 mg orally once Active 1 tab(s) a day Synthroid NDC 2205 200 mcg (0.2 mg) Active 1 tab(s) orally once a day carvedilol NDC 77013 3.125 mg orally 2 Active 2 tab(s) times a day glimepiride NDC 74506 1 mg orally bid Active 1 tab(s) atorvastatin NDC 74991 10 mg orally once Active 1 tab(s) a day (at bedtime) tamsulosin NDC 88464 0.4 mg orally Active 1 cap(s) once a day furosemide NDC 71157 40 mg orally once Active 1 tab(s) a day ASA NDC 0 81mg once a day Active 1 tab(s) Prilosec NDC 363 20 mg orally once Active 1 cap(s) a day [place] NDC 56880 1000 mg orally 2 Active 1 tab(s) times a day nitroglycerin NDC 23252 0.4 mg Active 1 tab(s) sublingually every 5 minutes losartan NDC 01427 50 mg orally once Active 1 tab(s) a day Vital Signs Date/Time: Jun 19, 2016 Blood Pressure Systolic 110 mm Hg BMI 30.66 Index Height 66 in Blood Pressure Diastolic 50 mm Hg Results No Known Results Summary Purpose eClinicalWorks Submission
--- OUTSIDE RECORDS SUMMARY | 2018-01-11 00:57 | XMS REPORT | CCD ---
:1935 Author Organization [facility] Care Team Providers Name Role Phone Jessica [...] PO, Drug 06/28/2011 06/29/2011 Discontinued Form: TAB, [id number], Start date: 06/28/11 6:00:00, Duration: 4 doses [...] based on the clinical recommendations of the [place] [employer].HEMATOLOGY Most recent to oldest [Reference [...]
--- OUTSIDE RECORDS SUMMARY | 2018-01-11 00:57 | XMS REPORT ---
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
--- OUTSIDE RECORDS SUMMARY | 2018-01-11 00:57 | XMS REPORT ---
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
--- OUTSIDE RECORDS SUMMARY | 2018-01-11 00:57 | XMS REPORT ---
:1935 Author Organization eClinicalWorks Care Team Providers Name Role Phone PHYLLIS [place] Provider Role Unavailable Allergies, Adverse Reactions, Alerts Substance Reaction Event Type N.K.D.A. 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 Problem Presence of automatic (implantable) Z95.810 Active cardiac defibrillator Medications Medication Code Code Instructions Start End Status Dosage System Date Date nitroglycerin [facility] 55313517264 0.4 mg Active 1 tab(s) sublingually every 5 minutes baclofen [facility] 71897167152 10 mg orally Active 1 tab(s) bid tamsulosin [facility] 49573439906 0.4 mg orally Active 1 cap(s) once a day ASA [facility] 25035503219 81mg once a Active 1 tab(s) day losartan [facility] 60511378806 50 mg orally Active 1 tab(s) once a day spironolactone [facility] 95740403919 25 mg orally Active 1 tab(s) bid Prilosec [facility] 18095857230 20 mg orally Active 1 cap(s) once a day glimepiride [facility] 69573348678 1 mg orally bid Active 1 tab(s) clopidogrel [facility] 89357810114 75 mg orally Active 1 tab(s) once a day furosemide ND 13963499238 40 mg orally Active 1 tab(s) once a day carvedilol [facility] 78276398873 6.25 orally 2 Active 1 tab(s) times a day Glumetza [facility] 30495099443 500 mg orally Active 1 tab(s) bid isosorbide [facility] 13416420990 30 mg orally Active 1 tab(s) dinitrate every 8 hrs Synthroid [facility] 86122014015 200 mcg (0.2 Active 1 tab(s) mg) orally once a day hydralazine [facility] 39752222688 25 mg orally 4 Active 1 tab(s) times a day Ranexa [facility] 52631152975 1000 mg orally Active 1 tab(s) 2 times a day omeprazole [facility] 01198296120 20 mg orally Active 1 cap(s) once a day Vital Signs Date/Time: September 03, 2016 Blood Pressure Systolic 136 mm Hg BMI 29.53 Index Height 66 in Blood Pressure Diastolic 60 mm Hg Results No Known Results Summary Purpose eClinicalWorks Submission
--- OUTSIDE RECORDS SUMMARY | 2018-01-11 00:57 | XMS REPORT ---
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
[2018-01-11] MEDS ORDERED: FUROSEMIDE 40 MG/4 ML VIAL ONE ×2 (00:58→02:25)
--- OUTSIDE RECORDS SUMMARY | 2018-01-11 00:58 | XMS REPORT ---
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 Problem Hypercholesterolemia NOS 272.4 Active Problem Hypothyroidism (acquired) 244.9 Active Assessment Hypertension Heart Disease - w/o 402.10 Active CHF* Assessment S/P Automatic Defibrillator V45.02 Active Assessment Chronic systolic heart failure 428.22 Active Assessment 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 Medications Medication Code System Code Instructions Start End Date Status Dosage Date levothyroxine MULTUM 41414 200 mcg orally Active 1 cap(s) once a day nitroglycerin MULTUM 92473 0.4 mg November 26, Active 1 tab(s) sublingually every 2013 5 minutes gemfibrozil MULTUM 82974 600 mg orally 2 Active 1 tab(s) times a day omeprazole MULTUM 39656 20 mg orally once Active 1 tab(s) a day losartan MULTUM 26304 50 mg orally once Active 1 tab(s) a day Crestor MULTUM 55058 10 mg orally once Jan 27, Active 1 tab(s) a day (at bedtime) 2012 spironolactone MULTUM 72438 25 mg orally 3 Active 1 tab(s) times a day tamsulosin MULTUM 02189 0.4 mg orally bid Active 1 cap(s) ASA Unknown 0 81mg once a day Active 1 tab(s) Lantus MULTUM 13713 100 units/mL Active 34 units at subcutaneously bedtime furosemide MULTUM 69280 20 mg orally once Active 3 tsa a day [place] MULTUM 26466 1000 mg orally 2 Active 1 tab(s) [...]
--- OUTSIDE RECORDS SUMMARY | 2018-01-11 00:58 | XMS REPORT ---
:1935 Author Organization eClinicalWorks Care Team Providers Name Role Phone [place] PHYLLIS Provider Role Unavailable Allergies, Adverse Reactions, Alerts Substance Reaction Event Type N.K.D.A. Info Not Available Non Drug Allergy Encounters Encounter Location Date Established Patient [facility] Jun 25, 2014 Established Patient [facility] December 17, 2013 STRESS TEST [facility] December 17, 2013 Established Patient [facility] Mar 19, 2014 Problems Problem Type Condition ICD-9 Code Onset Dates Condition Status Assessment 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 Active [place] vessel Problem Diabetes mellitus type II 250.00 Active Problem Hypertension Heart Disease - w/o 402.10 Active CHF* Problem 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 Problem Chronic systolic heart failure 428.22 Active Problem S/P Automatic Defibrillator V45.02 Active Problem 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 Active [place] vessel Problem 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 Problem Hypercholesterolemia NOS 272.4 Active Problem Hypothyroidism (acquired) 244.9 Active Assessment S/P Automatic Defibrillator V45.02 Active Assessment Chronic systolic heart failure 428.22 Active Assessment 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 Medications Medication Code System Code Instructions Start End Date Status Dosage Date losartan MULTUM 53868 50 mg orally once Active 1 tab(s) a day nitroglycerin MULTUM 85703 0.4 mg November 26, Active 1 tab(s) sublingually every 2013 5 minutes Lantus MULTUM 10136 100 units/mL Active 34 units at subcutaneously bedtime Crestor MULTUM 57059 10 mg orally once Jan 27, Active 1 tab(s) a day (at bedtime) 2012 levothyroxine MULTUM 23737 112 mcg orally Active 2 caps once a day spironolactone MULTUM 58299 25 mg orally 3 Active 1 tab(s) times a day carvedilol MULTUM 62090 12.5 mg orally 2 Active 1 tab(s) times a day tamsulosin MULTUM 37195 0.4 mg orally bid Active 1 cap(s) gemfibrozil MULTUM 86045 600 mg orally 2 Active 1 tab(s) times a day ASA Unknown 0 81mg once a day Active 1 tab(s) omeprazole MULTUM 56499 20 mg orally once Active 1 tab(s) a day furosemide MULTUM 95941 40 mg orally once Jun 26, Active 1 tab(s) a day 2014 [place] MULTUM 62105 1000 mg orally 2 Active 1 tab(s) [...]
--- OUTSIDE RECORDS SUMMARY | 2018-01-11 00:58 | XMS REPORT ---
[...] [facility] December 17, 2013 Pt in [facility] 05/18 [facility] May 18, 2015 STRESS TEST [facility] December 17, 2013 Established Patient [facility] Mar 19, 2014 Established Patient [facility] May 12, 2015 Established Patient [facility] Jan 18, 2015 possible heart attack [facility] May 11, 2015 Problems Problem Type Condition ICD-9 Code Onset Dates Condition Status Problem 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 [place] coronary artery with other forms of angina [...]
--- OUTSIDE RECORDS SUMMARY | 2018-01-11 00:58 | XMS REPORT ---
:1935 Author Organization eClinicalWorks Care Team Providers Name Role Hugh WHITTINGTONPHYLLIS Provider Role Unavailable Allergies, Adverse Reactions, Alerts Substance Reaction Event Type N.K.D.A. Info Not Available Non Drug Allergy Encounters Encounter Location Date Established Patient [facility] Jun 25, 2014 [place] refill [facility] Aug 06, 2014 Unknown [facility] August 18, 2014 chest pain. 10/06 [facility] October 07, 2014 Established Patient [facility] December 17, 2013 STRESS TEST [facility], [facility] December 17, 2013 Established Patient [facility] Mar 19, 2014 Established Patient [facility] May 12, 2015 Established Patient [facility] Jan 18, 2015 possible heart attack [facility] May 11, 2015 chest pain [facility] December 28, 2015 Established Patient [facility] Apr 10, 2016 Pt in [facility] 05/18 [facility] May 18, 2015 [place] [facility] October 19, 2015 Problems Problem Type Condition ICD-9 Code Onset Dates Condition Status Assessment Presence 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 Assessment 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 Assessment Presence of coronary angioplasty Z95.5 Active implant and graft Problem 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 Problem Presence 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 Problem Presence of coronary angioplasty Z95.5 Active implant and graft Problem Hyperlipidemia, unspecified E78.5 Active Problem Hypothyroidism, unspecified E03.9 Active Problem 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 Problem 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 Assessment 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 Assessment Hyperlipidemia, unspecified E78.5 Active Assessment 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 Medications Medication Code System Code Instructions Start Date End Date Status Dosage carvedilol MULTUM 58281 3.125 orally 2 Active 2 tab(s) times a day tamsulosin MULTUM 22958 0.4 mg orally Active 1 cap(s) once a day nitroglycerin MULTUM 15604 0.4 mg Active 1 tab(s) sublingually every 5 minutes losartan MULTUM 86575 50 mg orally once Active 1 tab(s) a day Glumetza MULTUM 48204 500 mg orally 2 Active 1 tab(s) times a day ASA Unknown 0 81mg once a day Active 1 tab(s) clopidogrel MULTUM 06558 75 mg orally once Active 1 tab(s) a day Prilosec MULTUM 363 20 mg orally once Active 1 cap(s) a day Synthroid MULTUM 2205 200 mcg (0.2 mg) Active 1 tab(s) orally once a day spironolactone MULTUM 42265 25 mg orally 3 Active 1 tab(s) times a day furosemide MULTUM 98309 40 mg orally once Active 1 tab(s) a day atorvastatin MULTUM 37076 10 mg orally once Active 1 tab(s) a day (at bedtime) glimepiride MULTUM 99049 1 mg orally bid Active 1 tab(s) [place] MULTUM 07118 1000 mg orally 2 Active 1 tab(s) [...]
--- OUTSIDE RECORDS SUMMARY | 2018-01-11 00:58 | XMS REPORT ---
:1935 Author Organization eClinicalWorks Care Team Providers Name Role Phone CYN [place]Y Provider Role Unavailable Encounters Encounter Location Date Established Patient [facility], [facility] Jun 25, 2014 [place] ref[place] [facility] Aug 06, 2014 Unknown [facility] August 18, 2014 chest pain. 10/06 [facility] October 07, 2014 Established Patient [facility] December 17, 2013 Pt in [facility] 05/18 [facility] May 18, 2015 STRESS TEST [facility] December 17, 2013 [place] [facility] October 19, 2015 Established Patient [facility] Mar 19, 2014 Established Patient [facility] May 12, 2015 Established Patient [facility] Jan 18, 2015 possible heart attack [facility] May 11, 2015 Problems Problem Type Condition ICD-9 Code Onset Dates Condition Status Problem Presence 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 Problem 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
--- OUTSIDE RECORDS SUMMARY | 2018-01-11 00:58 | XMS REPORT ---
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
--- OUTSIDE RECORDS SUMMARY | 2018-01-11 00:58 | XMS REPORT ---
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
--- OUTSIDE RECORDS SUMMARY | 2018-01-11 00:58 | XMS REPORT ---
:1935 Author Organization eClinicalWorks Care Team Providers Name Role Phone PHYLLIS [facility] Provider Role Unavailable Encounters Encounter Location Date Established Patient [facility], [facility] Jun 25, 2014 [place] refill [facility] Aug 06, 2014 Unknown [facility] August 18, 2014 chest pain. 10/06 [facility] October 07, 2014 Established Patient [facility] December 17, 2013 STRESS TEST [facility] December 17, 2013 Established Patient [facility] Mar 19, 2014 Established Patient [facility] May 12, 2015 Established Patient [facility] Jan 18, 2015 possible heart attack [facility] May 11, 2015 chest pain [facility] December 28, 2015 Pt in [facility] 05/18 [facility] May 18, 2015 [place] [facility] October 19, 2015 Problems Problem Type Condition ICD-9 Code Onset Dates Condition Status Problem Presence 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 Problem 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
--- OUTSIDE RECORDS SUMMARY | 2018-01-11 00:58 | XMS REPORT ---
:1935 Author Organization eClinicalWorks Care Team Providers Name Role Phone PHYLLIS [facility] Provider Role Unavailable Encounters Encounter Location Date Established Patient [facility], [facility] Jun 25, 2014 [place], [facility] Aug 06, 2014 Unknown [facility], [facility] August 18, 2014 chest pain. 10/06 [facility], [facility] October 07, 2014 Established Patient [facility], [facility] December 17, 2013 STRESS TEST [facility], [facility] December 17, 2013 Established Patient [facility], [facility] Mar 19, 2014 Established Patient [facility], [facility] May 12, 2015 Established Patient [facility], [facility] Jan 18, 2015 possible heart attack [facility], [facility] May 11, 2015 Problems Problem Type Condition ICD-9 Code Onset Dates Condition Status Problem 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 [place] coronary artery with other forms of angina [...]
--- OUTSIDE RECORDS SUMMARY | 2018-01-11 00:58 | XMS REPORT ---
:1935 Author Organization eClinicalWorks Care Team Providers Name Role Phone YONAS AGUIRRE Provider Role Unavailable Allergies, Adverse Reactions, Alerts Substance Reaction Event Type N.K.D.A. Info Not Available Non Drug Allergy Encounters Encounter Location Date Established Patient [facility], [facility] Jun 25, 2014 [place] refill [facility] Aug 06, 2014 Unknown [facility], [facility] August 18, 2014 chest pain. 10/06 [facility] October 07, 2014 Established Patient [facility], [facility] December 17, 2013 STRESS TEST [facility], [facility] December 17, 2013 Established Patient [facility], [facility] Mar 19, 2014 Established Patient [facility], [facility] May 12, 2015 Established Patient [facility], [facility] Jan 18, 2015 possible heart attack [facility] May 11, 2015 Problems Problem Type Condition ICD-9 Code Onset Dates Condition Status Assessment Presence 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 Assessment 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 Assessment Hyperlipidemia, unspecified E78.5 Active Assessment 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 Problem 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 Problem 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 Problem Presence 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 Problem Hypothyroidism, unspecified E03.9 Active Assessment 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 Problem 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 Problem Hyperlipidemia, unspecified E78.5 Active Medications Medication Code System Code Instructions Start End Date Status Dosage Date nitroglycerin MULTUM 49329 0.4 mg November 26, Active 1 tab(s) sublingually every 2013 5 minutes omeprazole MULTUM 59997 20 mg orally once Active 1 tab(s) a day tamsulosin MULTUM 74074 0.4 mg orally bid Active 1 cap(s) spironolactone MULTUM 82311 25 mg orally 3 Active 1 tab(s) times a day levothyroxine MULTUM 06953 112 mcg orally Active 2 caps once a day carvedilol MULTUM 41053 12.5 mg orally 2 Active 1 tab(s) times a day furosemide MULTUM 21795 40 mg orally once Jun 26, Active 1 tab(s) a day 2014 Crestor MULTUM 31936 10 mg orally once Jan 27, Active 1 tab(s) a day (at bedtime) 2012 [place] MULTUM 81326 1000 mg orally 2 Active 1 tab(s) times a day gemfibrozil MULTUM 95395 600 mg orally 2 Active 1 tab(s) times a day losartan MULTUM 11055 50 mg orally once Active 1 tab(s) a day Lantus MULTUM 96850 100 units/mL Active 34 units at subcutaneously [...]
--- OUTSIDE RECORDS SUMMARY | 2018-01-11 00:58 | XMS REPORT ---
:1935 Author Organization eClinicalWorks Care Team Providers Name Role Phone [place] Provider Role Unavailable Allergies, Adverse Reactions, Alerts Substance Reaction Event Type N.K.D.A. 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 Problem Chronic systolic heart failure 428.22 Active Problem S/P Automatic Defibrillator V45.02 Active Problem 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 Active [place] vessel Problem 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 Problem Hypercholesterolemia NOS 272.4 Active Problem Hypothyroidism (acquired) 244.9 Active Assessment S/P Automatic Defibrillator V45.02 Active Assessment Chronic systolic heart failure 428.22 Active Assessment 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 Medications Medication Code System Code Instructions Start End Date Status Dosage Date Humalog MULTUM 6127 100 units/mL Active 12 units subcutaneously before meals spironolactone MULTUM 47570 25 mg orally 3 Active 1 tab(s) times a day Lantus MULTUM 79725 100 units/mL Active 34 units at subcutaneously bedtime omeprazole MULTUM 89194 20 mg orally once Active 1 tab(s) a day levothyroxine MULTUM 12945 112 mcg orally Active 2 caps once a day Crestor MULTUM 28682 10 mg orally once Jan 27, Active 1 tab(s) a day (at bedtime) 2012 Lyrica MULTUM 61594 50 mg orally 2 Active 1 cap(s) times a day ASA Unknown 0 81mg once a day Active 1 tab(s) furosemide MULTUM 23845 20 mg orally tid Active 3 tsa tamsulosin MULTUM 97551 0.4 mg orally bid Active 1 cap(s) nitroglycerin MULTUM 79067 0.4 mg November 26 1 tab(s) sublingually every 2013 5 minutes losartan MULTUM 86341 50 mg orally once Active 1 tab(s) a day [place] MULTUM 95085 1000 mg orally 2 Active 1 tab(s) times a day gemfibrozil MULTUM 51458 600 mg orally 2 Active 1 tab(s) [...]
--- OUTSIDE RECORDS SUMMARY | 2018-01-11 00:59 | XMS REPORT ---
:1935 [facility] Address [address] [place] [address] Care Team Providers Name Role Phone KARI DUNCAN Unavailable Unavailable Problems This patient has no known problems. Allergies, Adverse Reactions, Alerts This patient has no known allergies or adverse reactions. Medications This patient has no known medications. Results Test Description Test Time Test Comments Text Results Atomic Results Result Comments PROTHROMBIN TIME/INR 2017-12-20 07:35:00 Test Item Value Reference Range Comments PROTIME (BEAKER) (test rszz=358) 15.1 seconds 11.7-14.7 INR (BEAKER) (test svqv=203) 1.2 <=5.9 RECOMMENDED COUMADIN/WARFARIN INR THERAPY RANGESSTANDARD DOSE: 2.0 - 3.0 Includes: PROPHYLAXIS forvenous thrombosis, systemic embolization; TREATMENT for venous thrombosis and/or pulmonary embolus.HIGH RISK: Target INR is 2.5-3.5 for patients with mechanical heart valves.BASIC METABOLIC [id number] 07:33: 00 Test Item Value Reference Range Comments SODIUM (BEAKER) (test 142 meq/L 136-145 thwf=646) POTASSIUM (BEAKER) (test 4.1 meq/L 3.5-5.1 ouxt=777) CHLORIDE (BEAKER) (test 105 meq/L 98-107 ljru=906) CO2 (BEAKER) (test 28 meq/L 22-29 wbor=728) BLOOD UREA NITROGEN 30 mg/dL 7-21 (BEAKER) (test xdjf=506) CREATININE (BEAKER) (test 1.90 mg/dL 0.57-1.25 pujz=697) GLUCOSE RANDOM (BEAKER) 118 mg/dL 70-105 (test scbt=414) CALCIUM (BEAKER) (test 9.1 mg/dL 8.4-10.2 senb=048) EGFR (BEAKER) (test 34 mL/min/1.73 sq m ESTIMATED GFR IS NOT brml=3410) ACCURATE CREATININE CLEARANCE IN PREDICTING GLOMERULAR FILTRATION RATE. ESTIMATED GFR IS NOT APPLICABLE FOR DIALYSIS PATIENTS. CBC W/PLT COUNT & AUTO [id number] 07:16:00 Test Item Value Reference Range Comments WHITE BLOOD CELL COUNT (BEAKER) (test xngw=166) 4.6 K/ L 3.5-10.5 RED BLOOD CELL COUNT (BEAKER) (test ftnw=371) 3.33 M/ L 4.63-6.08 HEMOGLOBIN (BEAKER) (test jqru=533) 10.1 GM/DL 13.7-17.5 HEMATOCRIT (BEAKER) (test pgkc=373) 31.9 % 40.1-51.0 MEAN CORPUSCULAR VOLUME (BEAKER) (test dqyv=080) 95.8 fL 79.0-92.2 MEAN CORPUSCULAR HEMOGLOBIN (BEAKER) (test 30.3 pg 25.7-32.2 cczg=632) MEAN CORPUSCULAR HEMOGLOBIN CONC (BEAKER) (test 31.7 GM/DL 32.3-36.5 fwcb=255) RED CELL DISTRIBUTION WIDTH (BEAKER) (test 17.4 % 11.6-14.4 cmak=502) PLATELET COUNT (BEAKER) (test ssbv=411) 99 K/CU MM 150-450 MEAN PLATELET VOLUME (BEAKER) (test grir=523) 11.0 fL 9.4-12.4 NUCLEATED RED BLOOD CELLS (BEAKER) (test 0 /100 WBC 0-0 iwdb=562) NEUTROPHILS RELATIVE PERCENT (BEAKER) (test 68 % lzyx=695) LYMPHOCYTES RELATIVE PERCENT (BEAKER) (test 20 % hmwd=946) MONOCYTES RELATIVE PERCENT (BEAKER) (test 9 % kdgh=616) EOSINOPHILS RELATIVE PERCENT (BEAKER) (test 2 % zgje=214) BASOPHILS RELATIVE PERCENT (BEAKER) (test 0 % vdjj=341) NEUTROPHILS ABSOLUTE COUNT (BEAKER) (test 3.12 K/ L 1.78-5.38 vzzo=917) LYMPHOCYTES ABSOLUTE COUNT (BEAKER) (test 0.93 K/ L 1.32-3.57 yzzn=676) MONOCYTES ABSOLUTE COUNT (BEAKER) (test vuhy=022) 0.40 K/ L 0.30-0.82 EOSINOPHILS ABSOLUTE COUNT (BEAKER) (test 0.09 K/ L 0.04-0.54 othm=940) BASOPHILS ABSOLUTE COUNT (BEAKER) (test cepd=576) 0.01 K/ L 0.01-0.08 IMMATURE GRANULOCYTES-RELATIVE PERCENT (BEAKER) 0 % 0-1 (test ehow=9652)
[2018-01-11 01:19] LABS: Absolute Lymphocytes (CBC) 0.5 K/uL (0.7-4.9); Absolute Monocytes 0.3 K/uL (0.1-1.3); Absolute Neutrophil 4.4 K/uL (1.8-8.0); Basophils % 0.4 % (0-1.3); Eosinophils % 0.3 % (0-4.4); Hematocrit 31.1 % (39.6-49.0); Lymphocytes % 9.2 % (15.3-44.8); MCH 32.8 pg (27.0-35.0); MCV 97.7 fL (80-100); MPV 9.5 fL (7.6-11.3); RBC Red Blood Cell Count 3.19 M/uL (4.33-5.43)
[2018-01-11 01:25] LABS: Protime INR 1.14
[2018-01-11 02:09] LABS: Albumin 3.6 g/dL (3.4-5.0); Bilirubin Direct 0.3 mg/dL (0-0.2); Bilirubin Total 0.9 mg/dL (0.2-1.0); Potassium 4.6 mmol/L (3.5-5.1); Protein, Total 6.7 g/dL (6.4-8.2)
[2018-01-11 02:59] LABS: Urine Blood NEGATIVE (NEG); Urine Glucose NEGATIVE (NEG); Urine Protein NEGATIVE (NEG); Urine pH 5.5 (5.0-7.0)
--- NOTE | 2018-01-11 03:10 | EDPHYS ---
Physician Documentation [facility] Name: Blayne Ashford Age: 82 yrs Sex: Male : 1935 Arrival Date: 01/11/2018 Time: 00:43 Bed 16 Private MD: Nissa Seay ED Physician Calixto Sorensen HPI: 01/11 01:00 This 82 yrs old Male presents to ER via EMS with complaints of Shortness Of pm1 Breath. 01:00 The patient has shortness of breath with exertion. Onset: The symptoms/episode pm1 began/occurred this morning. Duration: The symptoms are continuous. The patient's shortness of breath is aggravated by exertion, is alleviated by nothing. Associated signs and symptoms: Pertinent negatives: chest pain, non-productive cough, productive cough, diaphoresis, dizziness, fever, nausea, vomiting. Severity of symptoms: in the emergency department the symptoms are unchanged Pain is currently a 0 / 10. The patient has experienced similar episodes in the past, multiple times. The patient has been recently been admitted at [facility], was discharged last week, for similar complaints. Patient brought to the ER with complaints of shortness of breath. Patient was seen here and discharged on 01/04/2018 for the same complaint. Patient was diuresed with Lasix and sent home. Dr. Diaz recommended Lasix 80 mg PO in AM and 40 mg PO in PM. Patient's current medication list is 40 mg PO BID. However patient reports that he is not getting his Lasix. Historical: - Allergies: 00:53 No Known Allergies; bb - Home Meds: 00:53 atorvastatin 40 mg Oral tab 2 tabs nightly [Active]; clopidogrel 75 mg Oral tab once bb daily [Active]; exelon patch daily [Active]; glimepiride 2 mg Oral tab once daily [Active]; isosorbide dinitrate 20 mg Oral tab 2 times per day [Active]; Januvia 50 mg Oral tab once daily [Active]; lactulose 10 gram/15 mL Oral soln 30 mL nightly [Active]; Lasix 40 mg Oral tab 2 times per day [Active]; levothyroxine 100 mcg tab 2 tabs once daily [Active]; losartan 25 mg Oral tab once daily [Active]; metoprolol succinate 25 mg Oral Tb24 twice a day [Active]; omeprazole 20 mg Oral TbEC daily [Active]; Ranexa 1,000 mg Oral Tb12 2 times per day [Active]; Risperdal 0.25 mg Oral tab daily [Active]; Risperdal 0.5 mg Oral tab nightly [Active]; spironolactone 25 mg Oral tab once daily [Active]; tamsulosin 0.4 mg Oral cp24 once daily [Active]; - PMHx: 00:53 angina pectoris; Anxiety; Atrial Fib; BPH; CAD; COPD; Dementia; Diabetes - NIDDM; HEART bb FAILURE; Hematuria; Hyperlipidemia; Hypertension; Hypothyroidism; MUSCLE WEAKNESS; Pacemaker; Pneumonia; - PSHx: 00:53 Heart stents; bb - Immunization history:: Adult Immunizations up to date. - Social history:: Smoking status: Patient/guardian denies using tobacco, Smoking status: unknown. - Ebola Screening: : No symptoms or risks identified at this time No symptoms or risks identified at this time. ROS: 01:00 Constitutional: Negative for fever, chills, and weight loss, Eyes: Negative for injury, pm1 pain, redness, and discharge, ENT: Negative for injury, pain, and discharge, Neck: Negative for injury, pain, and swelling. 01:00 Abdomen/GI: Negative for abdominal pain, nausea, vomiting, diarrhea, and constipation, Back: Negative for injury and pain, : Negative for injury, bleeding, discharge, and swelling, MS/Extremity: Negative for injury and deformity, Skin: Negative for injury, rash, and discoloration, Neuro: Negative for headache, weakness, numbness, tingling, and seizure. 01:00 Cardiovascular: Positive for edema, Negative for chest pain, orthopnea, palpitations. 01:00 Respiratory: Positive for shortness of breath, on exertion. Negative for cough, sputum production, wheezing. Exam: 01:00 Constitutional: This is a well developed, well nourished patient who is awake, alert, pm1 and in no acute distress. Head/Face: Normocephalic, atraumatic. Eyes: Pupils equal round and reactive to light, extra-ocular motions intact. Lids and lashes normal. Conjunctiva and sclera are non-icteric and not injected. Cornea within normal limits. Periorbital areas with no swelling, redness, or edema. ENT: Nares patent. No nasal discharge, no septal abnormalities noted. Tympanic membranes are normal and external auditory canals are clear. Oropharynx with no redness, swelling, or masses, exudates, or evidence of obstruction, uvula midline. Mucous membranes moist. Neck: Trachea midline, no thyromegaly or masses palpated, and no cervical lymphadenopathy. Supple, full range of motion without nuchal rigidity, or vertebral point tenderness. No Meningismus. Chest/axilla: Normal chest wall appearance and motion. Nontender with no deformity. No lesions are appreciated. Cardiovascular: Regular rate and rhythm with a normal S1 and S2. No gallops, murmurs, or rubs. Normal PMI, no JVD. No pulse deficits. 01:00 Abdomen/GI: Soft, non-tender, with normal bowel sounds. No distension or tympany. No guarding or rebound. No evidence of tenderness throughout. Back: No spinal tenderness. No costovertebral tenderness. Full range of motion. Skin: Warm, dry with normal turgor. Normal color with no rashes, no lesions, and no evidence of cellulitis. MS/ Extremity: Pulses equal, no cyanosis. Neurovascular intact. Full, normal range of motion. 01:00 Respiratory: the patient does not display signs of respiratory distress, Respirations: normal, Breath sounds: rales, are located in both bases. 01:00 Neuro: Orientation: is normal, Motor: moves all fours, Sensation: is normal, no obvious gross deficits, Gait: is steady, without difficulty. 03:34 Respiratory: the patient does not display signs of respiratory distress, Respirations: pm1 normal, Breath sounds: are clear throughout, no bronchial sounds, no decreased breath sounds, no rales, rhonchi, no wheezing. Vital Signs: 00:53 BP 142 / 84; Pulse 75; Resp 18 S; Temp 97.5(O); Pulse Ox 97% on R/A; Weight 71.21 kg bb (R); Height 5 ft. 7 in. (170.18 cm); Pain 0/10; 02:27 BP 155 / 80; Pulse 73; Resp 18; Pulse Ox 100% on R/A; Pain 0/10; ea 03:57 BP 130 / 80; Pulse 66; Resp 18; Temp 97.8; Pulse Ox 100% on R/A; Pain 0/10; ea 04:35 BP 132 / 78; Pulse 68; Resp 18; Temp 97.8; Pulse Ox 100% on R/A; Pain 0/10; ea 00:53 Body Mass Index 24.59 (71.21 kg, 170.18 cm) bb MDM: 00:45 Patient medically screened. pm1 03:08 Data reviewed: vital signs. Data interpreted: Pulse oximetry: on room air is 100 %. pm1 Interpretation: normal. Counseling: I had a detailed discussion with the patient and/or guardian regarding: the historical points, exam findings, and any diagnostic results supporting the discharge/admit diagnosis, lab results, radiology results, the need for outpatient follow up, to return to the emergency department if symptoms worsen or persist or if there are any questions or concerns that arise at home. 03:15 ED course: Patient believes that he is not getting his Lasix and they are just getting pm1 to recognizing the problem. Patient with chest X-ray yesterday that shows volume overload. Patient was given Lasix in the ER and patient walked around the ER. Patient able to carry on a conversation while walking with the tech and is not complaining of shortness of breath upon return to the room. Patient's saturation 95% on RA after walking around 90 feet. 03:15 ED course: Instructed nurse to communicate to jail staff, Dr. Diaz' pm1 recommendation for increased diuresis to Lasix 80 mg AM and 40 mg PM if patient is getting 40 mg PO BID. 01/11 00:46 Order name: Basic Metabolic Panel pm1 01/11 00:46 Order name: CBC with Diff pm1 01/11 00:46 Order name: LFT's pm01/11 00:46 Order name: NT PRO-BNP pm1 01/11 00:46 Order name: PT-INR; Complete Time: 01:44 pm1 01/11 00:46 Order name: Ptt, Activated; Complete Time: 01:44 pm1 01/11 00:46 Order name: Basic Metabolic Panel; Complete Time: 02:11 EDMS 01/11 00:46 Order name: CBC with Automated Diff; Complete Time: 01:44 EDMS 01/11 00:46 Order name: XRAY Chest (1 view) pm1 01/11 00:46 Order name: EKG; Complete Time: 00:46 pm1 01/11 00:46 Order name: Cardiac monitoring; Complete Time: 01:19 pm1 01/11 00:46 Order name: EKG - Nurse/Tech; Complete Time: 01:05 pm1 01/11 00:46 Order name: IV Saline Lock; Complete Time: 01:05 pm1 01/11 00:46 Order name: Labs collected and sent; Complete Time: 01:18 pm1 01/11 00:46 Order name: O2 Per Protocol; Complete Time: 01:18 pm1 01/11 00:46 Order name: O2 Sat Monitoring; Complete Time: 01:18 pm1 01/11 00:46 Order name: Urine Dipstick-Ancillary (obtain specimen); Complete Time: 03:18 pm1 01/11 00:46 Order name: Liver (Hepatic) Function; Complete Time: 02:11 EDMS 01/11 00:46 Order name: NT PRO-BNP; Complete Time: 02:11 EDMS 01/11 02:49 Order name: Urine Dipstick--Ancillary (enter results); Complete Time: 03:14 mw2 Administered Medications: 01:04 Drug: Lasix 40 mg Route: IVP; Site: left wrist; ea 02:05 Follow up: Urine output 700 ml; Response: No adverse reaction; Marked relief of symptomsea 02:27 Drug: Lasix 40 mg Route: IVP; Site: left wrist; ea 03:17 Follow up: Urine output 400 ml; Response: No adverse reaction; Marked relief of symptomsea Disposition: 04:59 Co-signature as Attending Physician, Calixto Sorensen MD. rn Disposition: 01/11/18 03:09 Discharged to Home. Impression: Chronic combined systolic (congestive) and diastolic (congestive) heart failure. - Condition is Stable. - Discharge Instructions: Heart Failure. - Medication Reconciliation Form, Thank You Letter, SBAR form form. - Follow up: Emergency Department; When: As needed; Reason: Worsening of condition. Follow up: Private Physician; When: 2 - 3 days; Reason: Recheck today's complaints, Continuance of care, Re-evaluation by your physician. - Problem is new. - Symptoms have improved. - Notes: Signatures: Dispatcher [employer] EDMS Lizzie Ledesma RN RN bb Nieto, Roman, MD MD rn Marinas, Patrick, GROUNDS MAINTENANCE SUPERVISOR GROUNDS MAINTENANCE SUPERVISOR pm1 Tiffany Simpson RN RN ea Corrections: (The following items were deleted from the chart) 01:03 00:46 CKMB Creatine Kinase MB ordered. [facility] EDSC 01:03 00:46 Magnesium ordered. [facility] EDSC 01:04 00:46 Creatine Phosphokinase ordered. [facility] EDSC 01:17 00:46 TROPONIN (EMERG DEPT USE ONLY)+C.LAB.BRZ ordered. [facility] EDSC 04:38 03:09 01/11/2018 03:09 Discharged to Home. Impression: Chronic combined systolic ea (congestive) and diastolic (congestive) heart failure. Condition is Stable. Forms are Medication Reconciliation Form, Thank You Letter, Antibiotic Education, Prescription Opioid Use. Follow up: Emergency Department; When: As needed; Reason: Worsening of condition. Follow up: Private Physician; When: 2 - 3 days; Reason: Recheck today's complaints, Continuance of care, Re-evaluation by your physician. Problem is new. Symptoms have improved. pm1
--- NOTE | 2018-01-11 03:10 | ER ---
Nurse's Notes [facility] Name: Blayne Ashford Age: 82 yrs Sex: Male : 1935 Arrival Date: 01/11/2018 Time: 00:43 Bed 16 Private MD: Nissa Seay Diagnosis: Chronic combined systolic (congestive) and diastolic (congestive) heart failure Presentation: 01/11 00:45 Presenting complaint: EMS states: they were toned out for report of pt c/o shortness of bb breath pt states he has been short of breath today. Transition of care: patient was not received from another setting of care. Onset of symptoms was January 11, 2018. Risk Assessment: Do you want to hurt yourself or someone else? Patient reports no desire to harm self or others. Initial Sepsis Screen: Does the patient meet any 2 criteria? No. Patient's initial sepsis screen is negative. Does the patient have a suspected source of infection? No. Patient's initial sepsis screen is negative. Care prior to arrival: None. 00:45 Method Of Arrival: EMS: [facility] bb 00:45 Acuity: LASHANDA 3 bb Historical: - Allergies: 00:53 No Known Allergies; bb - Home Meds: 00:53 atorvastatin 40 mg Oral tab 2 tabs nightly [Active]; clopidogrel 75 mg Oral tab once bb daily [Active]; exelon patch daily [Active]; glimepiride 2 mg Oral tab once daily [Active]; isosorbide dinitrate 20 mg Oral tab 2 times per day [Active]; Januvia 50 mg Oral tab once daily [Active]; lactulose 10 gram/15 mL Oral soln 30 mL nightly [Active]; Lasix 40 mg Oral tab 2 times per day [Active]; levothyroxine 100 mcg tab 2 tabs once daily [Active]; losartan 25 mg Oral tab once daily [Active]; metoprolol succinate 25 mg Oral Tb24 twice a day [Active]; omeprazole 20 mg Oral TbEC daily [Active]; Ranexa 1,000 mg Oral Tb12 2 times per day [Active]; Risperdal 0.25 mg Oral tab daily [Active]; Risperdal 0.5 mg Oral tab nightly [Active]; spironolactone 25 mg Oral tab once daily [Active]; tamsulosin 0.4 mg Oral cp24 once daily [Active]; - PMHx: 00:53 angina pectoris; Anxiety; Atrial Fib; BPH; CAD; COPD; Dementia; Diabetes - NIDDM; HEART bb FAILURE; Hematuria; Hyperlipidemia; Hypertension; Hypothyroidism; MUSCLE WEAKNESS; Pacemaker; Pneumonia; - PSHx: 00:53 Heart stents; bb - Immunization history:: Adult Immunizations up to date. - Social history:: Smoking status: Patient/guardian denies using tobacco, Smoking status: unknown. - Ebola Screening: : No symptoms or risks identified at this time No symptoms or risks identified at this time. Screenin:05 Abuse screen: Denies threats or abuse. Nutritional screening: No deficits noted. ea Tuberculosis screening: No symptoms or risk factors identified. Fall Risk None identified. Assessment: 00:50 General: Appears uncomfortable, Behavior is calm, cooperative, appropriate for age. ea Pain: Denies pain. Neuro: Level of Consciousness is awake, alert, obeys commands, Oriented to person, place, time, situation. Cardiovascular: Heart tones S1 S2 present Patient's skin is warm and dry. Respiratory: Airway is patent Respiratory effort is even, labored, Respiratory pattern is regular, symmetrical, Breath sounds with rales in left posterior lower lobe, right posterior middle lobe and right posterior lower lobe. GI: No signs and/or symptoms were reported involving the gastrointestinal system. : No signs and/or symptoms were reported regarding the genitourinary system. EENT: No signs and/or symptoms were reported regarding the EENT system. Derm: Skin is dry, Skin is pale, Skin temperature is warm. Musculoskeletal: Circulation, motion, and sensation intact. 01:30 Reassessment: Patient and/or family updated on plan of care and expected duration. Pain ea level reassessed. Patient is alert, oriented x 3, equal unlabored respirations, skin warm/dry/pink. Patient denies pain at this time. 02:29 Reassessment: Patient and/or family updated on plan of care and expected duration. Pain ea level reassessed. Patient is alert, oriented x 3, equal unlabored respirations, skin warm/dry/pink. Patient denies pain at this time. Patient states symptoms have improved. 03:40 Reassessment: Patient and/or family updated on plan of care and expected duration. Pain ea level reassessed. Patient is alert, oriented x 3, equal unlabored respirations, skin warm/dry/pink. Patient denies pain at this time. Patient states symptoms have improved. 03:52 Reassessment: Report called to Aisha RAMIREZ at [facility]. Reported she would ea call back with ETA on transportation. 04:33 Reassessment: Patient and/or family updated on plan of care and expected duration. Pain ea level reassessed. Patient is alert, oriented x 3, equal unlabored respirations, skin warm/dry/pink. [facility] at facility for transport to [facility]. Vital Signs: 00:53 BP 142 / 84; Pulse 75; Resp 18 S; Temp 97.5(O); Pulse Ox 97% on R/A; Weight 71.21 kg bb (R); Height 5 ft. 7 in. (170.18 cm); Pain 0/10; 02:27 BP 155 / 80; Pulse 73; Resp 18; Pulse Ox 100% on R/A; Pain 0/10; ea 03:57 BP 130 / 80; Pulse 66; Resp 18; Temp 97.8; Pulse Ox 100% on R/A; Pain 0/10; ea 04:35 BP 132 / 78; Pulse 68; Resp 18; Temp 97.8; Pulse Ox 100% on R/A; Pain 0/10; ea 00:53 Body Mass Index 24.59 (71.21 kg, 170.18 cm) bb ED Course: 00:43 Patient arrived in ED. ds1 00:45 Chan Whitley NP is PHCP. pm1 00:45 Calixto Sorensen MD is Attending Physician. pm1 00:47 Triage completed. bb 00:49 Tiffany Simpson, CARLEY is Primary Nurse. ea 00:50 Nissa Seay is Private Physician. ds1 00:53 Arm band placed on Patient placed in an exam room, on a stretcher, on pulse oximetry. bb 01:00 Patient has correct armband on for positive identification. Bed in low position. Call ea light in reach. Side rails up X2. 01:13 X-ray completed. Portable x-ray completed in exam room. Patient tolerated procedure kp1 well. 01:14 Initial lab(s) drawn, by me, sent to lab. Inserted saline lock: 20 gauge in left wrist, cc using aseptic technique. Blood collected. 01:14 EKG done, by ED staff, reviewed by Chan Whitley NP. cc 01:15 XRAY Chest (1 view) In Process Unspecified. EDMS 03:17 No provider procedures requiring assistance completed. ea 04:36 IV discontinued, intact, bleeding controlled, No redness/swelling at site. Pressure ea dressing applied. Administered Medications: 01:04 Drug: Lasix 40 mg Route: IVP; Site: left wrist; ea 02:05 Follow up: Urine output 700 ml; Response: No adverse reaction; Marked relief of symptomsea 02:27 Drug: Lasix 40 mg Route: IVP; Site: left wrist; ea 03:17 Follow up: Urine output 400 ml; Response: No adverse reaction; Marked relief of symptomsea Output: 02:05 Urine: 700ml; Total: 700ml. ea 03:17 Urine: 400ml; Total: 1100ml. ea Outcome: 03:09 Discharge ordered by MD. pm1 03:35 Condition: improved ea 03:54 Discharge instructions given to senior living, Instructed on discharge instructions, ea follow up and referral plans. Demonstrated understanding of instructions, follow-up care. 04:36 Discharged to senior living. Report called to Aisha RAMIREZ at [facility] ea Transfer form completed. [facility] at facility for transfer. 04:38 Patient left the ED. ea Signatures: Dispatcher [employer] [facility] Amada Ward ds1 Lizzie Ledesma, RN RN Jammie Blake cc Chan Whitley NP MOTOR POLARIZER pm1 Meaghan Pham kp1 Tiffany Simpson RN RN ea
[2018-01-11 04:46] VITALS: O2SAT 100
[2018-01-11 04:48] VITALS: TEMP 97.8
[2018-01-11 04:49] VITALS: BP 132/78
--- NOTE | 2018-01-11 07:25 | EKG ---
Test Date: 2018-01-11 Test Time: 00:58:49 Student Ambassador: AMIRAH MEASUREMENT RESULTS: Intervals: Rate: 68 MN: QRSD: 104 QT: 406 QTc: 431 [place]: P: MN: QRS: -26 T: 167 INTERPRETIVE STATEMENTS: Atrial flutter with variable AV block Septal infarct, age undetermined T wave abnormality, consider inferior ischemia Abnormal ECG Compared to ECG 01/03/2018 23:15:20 Ventricular premature complex(es) no longer present Myocardial infarct finding still present Electronically Signed On 01-11-18 07:25:25 CDT by Phil Diaz
--- NOTE | 2018-01-11 11:36 | RAD REPORT ---
EXAM DESCRIPTION: RAD - Chest Single View - 01/11/2018 1:15 am CLINICAL HISTORY: SOB Chest pain. COMPARISON: Chest Single View dated 01/03/2018; Chest Single View dated 12/30/2017; Chest Single View dated 10/19/2017 FINDINGS: Portable technique limits examination quality. Mild to moderate pulmonary edema is seen. Heart is moderately enlarged in size with changes of a prio r CABG noted. No displaced fractures.Single lead pacer/ defibrillator device is present. IMPRESSION: Moderate CHF versus volume overload pattern.
== END 2018-01-11 04:38 | disposition home or self-care (01) ==
LOC: ER 00:41
DX: I50.42 Chronic combined systolic (congestive) and diastolic (congestive) heart failure (principal); F41.9 Anxiety disorder, unspecified; I48.91 Unspecified atrial fibrillation; I25.119 Atherosclerotic heart disease of native coronary artery with unspecified angina pectoris; E78.5 Hyperlipidemia, unspecified; I10 Essential (primary) hypertension; E03.9 Hypothyroidism, unspecified; Z95.1 Presence of aortocoronary bypass graft
CPT/HCPCS: 36415; 71045; 80048; 80076; 81003; 83880; 85025; 85610; 85730; 93005; 96374; 99284

== ENCOUNTER 2018-01-23 23:30 | Inpatient (IN) | payer OTHER ==
--- OUTSIDE RECORDS SUMMARY | 2018-01-23 23:31 | XMS REPORT | Clinical Summary ---
:1935 Author Organization [facility] Address [address] [place] [address] Phone Care Team Providers Name Role Phone [...] Dwayne Flores MD 12/17/2017 Procedure Pass after 01/22/2017 Social History Tobacco Use Types Packs/Day Years [...] Not on file Implants Implanted Type Area Machining Engineer Device Expiration Model / Identifier Date Serial / Lot Inogen El Icd Vr Defibrillators N/A: [place] 07/10/2019 [id number] / Implanted: Qty: 1 on 12/20/2017 by Dwayne Flores MD Chest SCIENTIFIC [id number] / Procedures Procedure Name Priority Date/Time Associated Diagnosis Comments AICD GENERATOR - 12/20/2017 7:20 AM Dilated cardiomyopathy REMOVE & REPLACE CDT (HCC) (SINGLE LEAD) Case Notes 1st \\CASE POP6 after 01/22/2017 Results CARDIAC CATH REPORT - SCAN (12/24/2017 [...] % Specimen Performing Laboratory Blood - Arm, [address] [address] Prothrombin time/INR (12/20/2017 7:05 AM) Component Value Ref Range Protime 15.1 (H) 11.7 - 14.7 seconds INR 1.2 <=5.9 Specimen Performing Laboratory Blood - Arm, [address] [address] Narrative RECOMMENDED COUMADIN/WARFARIN INR THERAPY RANGES STANDARD [...] Status --------- ------ CBC with platelet count ...[[id number]]AbnormalFinal result Please view results for these tests [...] PATIENTS. Specimen Performing Laboratory Blood - Arm, [facility] [address] [place] [id number] ECG 12 lead (12/20/2017 7:00 AM) Specimen Performing Laboratory GE MUSE Narrative Ventricular Rate 58 BPM Atrial Rate 232 BPM QRS Duration 98 ms Q-T Interval 426 ms QTC Calculation(Bazett) 418 ms P [place] 45 degrees R [place] -25 degrees T [place] 139 degrees Atrial flutter with variable A-V block with premature ventricular or aberrantly conducted complexes Abnormal ECG No previous ECGs available Confirmed by James BEJARANO MICHAEL ([id number]) on 12/20/2017 7:33:36 AM Procedure Note Interface, External Ris In - 12/20/2017 7:33 AM CDT Ventricular Rate 58 BPM Atrial Rate 232 BPM QRS Duration 98 ms Q-T Interval 426 ms QTC Calculation(Bazett) 418 ms P [place] 45 degrees R [place] -25 degrees T [place] 139 degrees Atrial flutter with variable A-V block with premature ventricular or aberrantly conducted complexes Abnormal ECG No previous ECGs available Confirmed by James BEJARANO MICHAEL ([id number]) on 12/20/2017 7:33:36 AM after 01/22/2017
--- OUTSIDE RECORDS SUMMARY | 2018-01-23 23:43 | XMS REPORT | Continuity of Care Document ---
:1935 Author Organization Interface Problems Problem Status Onset Classification Date Comments Source Date Reported Irritability and anger The [address] [place] [address] Anger reaction The [address] [place] [address] Dementia The [address] [place] [address] FALL ON BLOODTHINNERS Active The 2018 [place] Discharge Diagnosis: [facility] Chronic renal 2017 7 insufficiency Discharge Diagnosis: [facility] Chronic CHF 2017 7 ABNORMAL LABS Active 05/30/ [facility] 2016 AFIB/DIZZY Active 11/02[facility] 2016 CP Active 12/27[facility] 2015 UNSTABLE ANGINA Active 05/16/ [address] CHRONIC SYSTOLIC HEART Active [facility] FAILURE 428.22 ANGINA 2012 413.9 CHRONIC SYSTOLIC HEART Active 06/22/ [facility] FAILURE 428.22 ANGINA 2012 413.9. Heart failure Active Problem [facility] 2 Heart failure Active Problem [facility] Outpatient 7 Imaging [facility] Heart failure Active Problem [facility] Outpatient 5 Imaging [facility] Presence of automatic Active Problem Cardiovascular cardiac defibrillator 8 Assoc Atherosclerotic heart Active Problem Cardiovascular disease of osage 8 [facility] coronary artery with other forms [...] Active Diagnosis Cardiovascular atherosclerosis of 5 Assoc osage vessel Diabetes mellitus type Active Problem Cardiovascular [...] Assoc complications Unspecified dementia The without behavioral [address] [place] [address] disturbance Laceration without The foreign body of left [address] [place] [address] elbow, initial encounter Abrasion of scalp, The initial encounter [address] [place] [address] Abrasion of right The forearm, initial [address] [place] [address] encounter Striking against other The stationary object, [address] [place] [address] initial encounter Essential hypertension The [address] [place] [address] 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 [address] [place] [address] Personal history of The nicotine dependence [address] [place] [address] Encounter for The immunization [address] [place] [address] CAD (<span Active Problem [facility] ID="[id number]">Conf [address] [place] [address] irmed</span>) [place], [place] Heart failure Active Problem [facility] Outpatient 8 Imaging [facility] [place] HTN (<span Resolved Problem [facility], ID="[id number]">Conf 8 [facility] irmed</span>) [facility] [place] (<span Resolved Problem [facility], ID="[id number]">Conf 8 [facility] irmed</span>) [facility] [place] ANGINA PECTORIS, Active [facility] CHR SYSTOLIC HRT Active [facility] FAILURE ENCOUNTER FOR Active [facility] MALIGNANT NE NON-ST ELEVATION Active [facility] (NSTEMI) MYOCARDIAL INF CHEST PAIN, Active [facility] UNSPECIFIED UNSPECIFIED ATRIAL Active [facility] FIBRILLATION Medications Medication Details Route Status Patient Ordering Order Source Instructions Provider Date Saline Flush 10 mL, Inactive The 0.9% Route: IVP2017 [place] Drug Form: INJ, Dosing Weight 83.182, kg, PRN, PRN Line Flush, Start date: 08/06/17 1:02:00 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 Eliquis 2.5 mg, 1 Inactive 11/03[facility] tab, Route: 2016 [facility] PO, Drug form: TAB, Q12H, Dosing Weight 83.636, kg, Start date: 11/03/16 9:00:00 CDT, Duration: 30 day, Stop date: 12/02/16 21:00:00 CDTNotes: Same as: Eliquis tamsulosin 0.4 mg, 1 Inactive 11/03[facility] cap, Route: 2016 [facility] PO, Drug form: CAP, Daily, Dosing Weight 85, kg, Start date: 11/03/16 9:00:00 CDT, Duration: 30 day, Stop date: 12/02/16 9:00:00 CDTNotes: (Same As: Flomax) "Do Not Crush" Aldactone 25 mg, 1 Inactive 11/03[facility] tab, Route: 2016 [facility] PO, Drug form: TAB, Daily, Dosing Weight 85, kg, Start date: 11/03/16 9:00:00 CDT, Duration: 30 day, Stop date: 12/02/16 9:00:00 CDTNotes: (Same As: Aldactone) Synthroid 200 Inactive 11/03[facility] microgram, 2016 [facility] [...] [place] 09/25/ Cardiovasc once a day 2016 [facility] atorvastatin 10 10 mg=1 Active [...] 7.5 TAB, Dosing MG Oral Tablet Weight [[place] 7.5/325] 83.455, kg, Q6H, PRN Pain Score 4-6, Start date: 12/29/15 16:20:00 CDT, Duration: 30 day, Stop date: 01/28/16 16:19:00 CDTNotes: Same as [place] 325-7.5mg Do not exceed 4gm/day of acetaminoph [...] INJ, Daily, antigen Start date: diphtheria 12/29/15 [id number] protein 9:00:00 conjugate CDT, vaccine / Duration: 1 Streptococcus doses or pneumoniae times, Stop serotype 14 date: capsular 12/29/15 antigen 9:00:00 diphtheria CDTNotes: [id number] protein Lightly conjugate roll vial vaccine / [...] Inactive time bolus for 4 mL, 2015 [facility] Route: IV, Drug form: INJ, ONCE, [...] food. Aspirin 81 MG 81 mg=1 Active [facility] tab, PO, 2014 [facility] Tablet Daily, 0 Center Refill(s) clopidogrel 75 75 mg=1 Active [place] mg oral tablet tab, PO, 2014 Medical [...] es: (Same as: Mag-Ox 400) Magnesium oxide [id number] elemental magnesium Dose=____mg magnesium oxide (___mg elemental [...] c) normal saline 1,000 mL, No Longer [place] 0.9% IV 1,000 Rate: 75 Active 2014 Medical mL ml/hr, Center Infuse over: 13.3 hr, Route: IV, Dosing Weight 85 kg, Total Volume: 1,000, Start date: 05/19/15 23:08:00, Duration: 30 day, Stop date: 06/18/15 23:07:00 Plavix 300 mg, 1 Inactive [place] tab, Route: 2014 Medical PO, Drug Center form: TAB, ONCE, Dosing Weight 85, kg, Priority: Within 4 hours, Start date: 05/19/15 12:39:00, Duration: 1 doses or times, Stop date: 05/19/15 12:39:00Not es: ( Same as: Plavix) Miralax 17 gm, 1 No Longer [place] pkt, Route: Active 2014 Medical PO, Drug Center form: PWDR, Daily, Dosing Weight 85, kg, Priority: NOW, Start date: 05/18/15 16:37:00, Duration: 30 day, Stop date: 06/17/15 9:00:00Note s: Dissolve in 8 oz of water or juice. (Same as: Miralax) sennosides, [facility]CI 8.6 mg, 1 No Longer [place] tab, Route: Active 2014 Medical PO, Drug Center Form: TAB, Dosing Weight 85, kg, Daily, NOW, Start date: 05/18/15 16:37:00, Duration: 30 day, Stop date: 06/17/15 9:00:00Note s: (Same as: Senokot) Docusate 100 mg, Inactive [place] Route: PO, 2014 Medical Drug form: Center CAP, Daily, Dosing Weight 85, kg, Priority: NOW, Start date: 05/18/15 16:37:00, Duration: 30 day, Stop date: 06/17/15 9:00:00 Lipitor 40 mg, 2 No Longer [place] tab, Route: Active 2014 Medical PO, Drug Center form: TAB, Bedtime, Start date: 05/17/15 21:00:00, Duration: 30 day, Stop date: 06/15/15 21:00:00Not es: (Same As: Lipitor) Crestor 20 mg, Inactive [place] Route: PO, 2014 Medical Drug form: Center TAB, Bedtime, Dosing Weight 85, kg, Start date: 05/17/15 21:00:00, Duration: 30 day, Stop date: 06/15/15 21:00:00 Prilosec 20 mg, Inactive [place] Route: PO, 2014 Medical Drug form: Center DRC, Bedtime, Dosing Weight 85, kg, Start date: 05/17/15 21:00:00, Duration: 30 day, Stop date: 06/15/15 21:00:00 Docusate Sodium 100 mg, 1 No Longer [place] 100 MG Oral cap, Route: Active 2014 Medical Capsule PO, Drug Center [Colace] form: CAP, BID, Dosing Weight 85, kg, Start date: 05/17/15 17:00:00, Duration: 30 day, Stop date: 06/16/15 9:00:00Note s: (Same as: Colace) (Do Not Crush) Protonix 40 mg, 1 No Longer [place] tab, Route: Active 2014 Medical PO, Drug Center form: ECTAB, Before Dinner, Start date: 05/17/15 16:30:00, Duration: 30 day, Stop date: 06/15/15 16:30:00Not es: Tablet should not be chewed or crushed. (Same as: Protonix) Aspirin 81 mg, 1 No Longer [place] tab, Route: Active 2014 Medical PO, Drug Center form: ECTAB, Daily, Dosing Weight 85, kg, Start date: 05/17/15 9:00:00, Duration: 30 day, Stop date: 06/15/15 9:00:00Note s: Do not crush or chew. (Same As: Ecotrin) Furosemide 40 40 mg, 1 No Longer [place] MG Oral Tablet tab, Route: Active 2014 Medical PO, Drug Center form: TAB, Daily, Dosing Weight 85, kg, Start date: 05/17/15 9:00:00, Duration: 30 day, Stop date: 06/15/15 9:00:00Note s: (Same as: Lasix) May cause GI upset. Give with food or milk. Aldactone 25 mg, 1 No Longer [place] tab, Route: Active 2014 Medical PO, Drug Center form: TAB, BID, Dosing Weight 85, kg, Start date: 05/17/15 9:00:00, Duration: 30 day, Stop date: 06/15/15 17:00:00Not es: (Same As: Aldactone) Ranexa 1,000 mg, 2 No Longer [place] tab, Route: Active 2014 Medical PO, Drug Center form: TAB, BID, Dosing Weight 85, kg, Start date: 05/17/15 9:00:00, Duration: 30 day, Stop date: 06/15/15 17:00:00Not es: Same as Ranexa "Do Not Crush" Losartan 50 mg, 1 No Longer [facility] tab, Route: Active 2014 Medical PO, Drug Center form: TAB, Daily, Dosing Weight 85, kg, Start date: 05/17/15 9:00:00, Duration: 30 day, Stop date: 06/15/15 9:00:00Note s: (Same as: Cozaar) Coreg 6.25 mg, 1 No Longer [facility] tab, Route: Active 2014 Medical PO, Drug Center form: TAB, BID, Dosing Weight 85, kg, Start date: 05/17/15 9:00:00, Duration: 30 day, Stop date: 06/15/15 17:00:00Not es: Give with food. (Same As: Coreg) tamsulosin 0.4 mg, 1 No Longer [place] cap, Route: Active 2014 Medical PO, Drug Center form: CAP, After Breakfast, Dosing Weight 85, kg, Start date: 05/17/15 8:30:00, Duration: 30 day, Stop date: 06/15/15 8:30:00Note s: (Same As: Flomax) "Do Not Crush" Synthroid 200 No Longer [place] microgram, Active 2014 Medical 1 tab, Center [...] 30 day heparin 500 mL, No Longer [place] additive 25,000 Rate: 17.68 Active 2014 Medical [...] ATASHBAND 11/26/ Cardiovasc lly sublingually 2013 ular [facility] every 5 minutes Crestor 1 tab(s) orally Active 10 mg orally ATASHBAND 01/27/ Cardiovasc once a day (at 2012 ular [facility] bedtime) Ranexa 1,000 mg, 2 PO No Longer [facility] tab, Route: Active 2011 [facility] PO, Drug form: TAB, Q12H, Start date: 06/28/11 21:00:00, Duration: 30 day, Stop date: 07/28/11 9:00:00 Lipitor 10 mg, 1 PO No Longer [facility] tab, Route: Active 2011 [facility] PO, Drug form: TAB, Bedtime, Start date: 06/28/11 21:00:00, Duration: 30 day, Stop date: 07/27/11 21:00:00 lisinopril 10 mg, 1 PO No Longer [facility] tab, Route: Active 2011 [facility] PO, Drug form: TAB, Daily, Start date: 06/28/11 17:00:00, Duration: 30 day, Stop date: 07/28/11 9:00:00 glimepiride 2 mg, 1 PO No Longer [facility] tab, Route: Active 2011 [facility] PO, Drug form: TAB, BID, Start date: 06/28/11 17:00:00, Duration: 30 day, Stop date: 07/28/11 9:00:00 Lasix 20 mg, 1 PO No Longer [facility] tab, Route: Active 2011 [facility] PO, Drug form: TAB, BID, Start date: 06/28/11 17:00:00, Duration: 30 day, Stop date: 07/28/11 9:00:00 spironolactone 25 mg, 1 PO No Longer [facility] tab, Route: Active 2011 [facility] PO, Drug form: TAB, Daily, Start date: 06/28/11 17:00:00, Duration: 30 day, Stop date: 07/28/11 9:00:00 Flomax 0.4 mg, 1 PO No Longer [facility] cap, Route: Active 2011 [facility] PO, Drug form: CAP, Daily, Start date: 06/28/11 17:00:00, Duration: 30 day, Stop date: 07/28/11 9:00:00 aspirin 81 mg 81 mg, 1 PO No Longer [facility] tablet, enteric tab, Route: Active 2011 [facility] coated PO, Drug form: ECTAB, Daily, Start date: 06/28/11 17:00:00, Duration: 30 day, Stop date: 07/28/11 9:00:00 acetaminophen-t 1 tab, PO No Longer [facility] ramadol 325 Route: PO, Active 2011 [facility] mg-37.5 mg oral Drug Form: tablet TAB, Daily, Start date: 06/28/11 17:00:00, Duration: 30 day, Stop date: 07/28/11 9:00:00 cefazolin 2 gm, IVPB No Longer [facility] Route: Active 2011 [facility] IVPB, Q8H, Start date: 06/28/11 16:00:00, Duration: 2 doses or times, Stop date: 06/29/11 0:00:00 Sodium Chloride 10 mL, IVP No Longer [facility] 0.9% IV Route: IVP, Active 2011 [facility] Start date: 06/28/11 16:00:00, Duration: 30 day, Stop date: 07/28/11 8:00:00 Coreg 25 mg, 1 PO No Longer [facility] tab, Route: Active 2011 [facility] PO, Drug form: TAB, Q12H, Start date: 06/28/11 15:00:00, Duration: 30 day, Stop date: 07/28/11 9:00:00 nitroglycerin 0.4 mg, 1 SL No Longer [facility] 0.4 mg tab, Route: Active 2011 [facility] sublingual SL, Drug tablet form: TAB, PRN, PRN Chest Pain, Start date: 06/28/11 13:33:00, Duration: 30 day, Stop date: 07/28/11 13:32:00 acetaminophen 500 mg, 1 PO No Longer [facility] tab, Route: Active 2011 [facility] PO, Drug form: TAB, Q4H, PRN Pain, Start date: 06/28/11 11:28:00, Duration: 30 day, Stop date: 07/28/11 11:27:00 acetaminophen-h 2 tab, PO No Longer [facility] ydrocodone 325 Route: PO, Active 2011 [facility] mg-5 mg oral Drug Form: tablet TAB, Q4H, PRN Pain, Start date: 06/28/11 11:28:00, Duration: 30 day, Stop date: 07/28/11 11:27:00 morphine 2 mg, 1 mL, IV No Longer [facility] Sulfate Route: IV, Active 2011 [facility] Drug form: INJ, Q2H, PRN Severe Pain, Start date: 06/28/11 11:28:00, Duration: 30 day, Stop date: 07/28/11 11:27:00 Xanax 0.25 mg, 1 PO No Longer [facility] tab, Route: Active 2011 [facility] PO, Drug form: TAB, Q8H, PRN Anxiety, Start date: 06/28/11 11:28:00, Duration: 30 day, Stop date: 07/28/11 11:27:00 Zofran 4 mg, 2 mL, IVP No Longer [facility] Route: IVP, Active 2011 [facility] Drug form: INJ, Q8H, PRN Nausea & Vomiting, Start date: 06/28/11 11:28:00, Duration: 30 day, Stop date: 07/28/11 11:27:00 Restoril 15 mg, 1 PO No Longer [facility] cap, Route: Active 2011 [facility] PO, Drug form: CAP, Bedtime, PRN Insomnia, Start date: 06/28/11 11:28:00, Duration: 30 day, Stop date: 07/28/11 11:27:00 Sodium Chloride 10 mL, IVP No Longer [facility] 0.9% IV Route: IVP, Active 2011 [facility] PRN, Line Flush, Start date: 06/28/11 11:26:00, Duration: 30 day, Stop date: 07/28/11 11:25:00 multivitamin 1 tab, PO No Longer [facility] Route: PO, Active 2011 [facility] Drug Form: TAB, [id number], Start date: 06/28/11 6:00:00, Duration: 4 doses or times, Stop date: 06/29/11 18:00:00 cefazolin 1 gm, IVPB No Longer [facility] Route: Active 2011 [facility] IVPB, PRE OP, Start date: 06/28/11 5:00:00, Duration: 12 hr, Stop date: 06/28/11 16:59:00 Sodium Chloride 1,000 mL, IV No Longer [facility] 0.45% IV 1,000 Rate: 75 Active 2011 [facility] mL ml/hr, Infuse over: 13.3 hr, Route: IV, Total Volume: 1,000, Start date: 06/28/11 5:00:00, Duration: 24 hr, Stop date: 06/29/11 4:59:00 lidocaine-prilo 1 appl, TOP No Longer [facility] freddie topical Route: TOP, Active 2011 [facility] ONCALL, Drug form: CRM, Start date: 06/28/11 5:00:00, Duration: 1 doses or times Valium 5 mg, 1 PO No Longer [facility] tab, Route: Active 2011 [facility] PO, Drug form: TAB, ONCALL, Start date: 06/28/11 5:00:00, Duration: 1 doses or times Benadryl 50 mg, 2 PO No Longer [facility] tab, Route: Active 2011 [facility] Assoc NKDA Assertion Drug Active The allergy [place] Immunizations Immunization Date Site Status Last Comments Source Given Updated diphtheria/pertu Right completed Irineo The ssis, 8 deltoid [place] acel/tetanus adult pneumococcal Right completed Jose 13-valent 6 deltoid [facility], vaccine [place] Results Order Name Results Value Reference Date Interpretation Comments Source Range URINE AND UA <=1.0 0.1 - 1.0 08/06 The STOOL Urobilinogen mg/dL /2017 [place] URINE AND UA RBC 1 /HPF 0 - 2 08/06 MH The [place] URINE AND UA Mucus Few /LPF None Seen 08/06 The STOOL /LPF [place] URINE AND UA Color Yellow Yellow 08/06 The lands *NA* (08/06/17 2:20 AM) URINE AND UA Turbidity Clear Clear 08/06 The [place] (08/06/17 2:20 AM) URINE AND UA Spec Grav 1.006 <=1.030 08/06 The [place] URINE AND UA Sq Epi Occasional Few /LPF 08/06 The STOOL /LPF [place] URINE AND UA WBC 1 /HPF 0 - 5 08/06 MH The STOOL [place] URINE AND UA Nitrite Negative Negative 08/06 The STOOL [place] (08/06/17 2:20 AM) URINE AND UA Leuk Est Negative Negative 08/06 The [place] (08/06/17 2:20 AM) URINE AND UA pH 5.0 5.0 - 8.0 08/06 The [place] URINE AND UA Ketones Negative Negative 08/06 The STOOL mg/dL mg/dL /2017 [place] URINE AND UA Bili Negative Negative 08/06 The [place] *NA* (08/06/17 2:20 AM) URINE AND UA Protein Negative Negative 08/06 The STOOL mg/dL mg/dL /2017 [place] URINE AND UA Glucose Negative Negative 08/06 The STOOL mg/dL mg/dL [place] URINE AND UA Blood Negative Negative 08/06 The [place] (08/06/17 2:20 AM) CHEM PANEL A/G Ratio 1.1 0.7 - 1.6 08/06 [place] CHEM PANEL AGAP 13.0 meq/L 10.0 - 08/06 The 20.0 [place] CHEM PANEL Globulin 3.2 g/dL 2.7 - 4.2 08/06 The [place] CHEM PANEL B/C Ratio 21 6 - 25 08/06 The [place] CHEM PANEL CO2 25 meq/L 24 - 32 08/06 The [place] CHEM PANEL Chloride Lvl 102 meq/L 95 - 109 08/06 The [place] CHEM PANEL Potassium 4.0 meq/L 3.5 - 5.1 08/06 The Lvl [place] CHEM PANEL Sodium Lvl 136 meq/L 135 - 145 08/06 The [place] CHEM PANEL BUN 38 mg/dL 7 - 22 08/06 The [place] CHEM PANEL Glucose Lvl 246 mg/dL 70 - 99 08/06 The [place] CHEM PANEL Creatinine 1.81 mg/dL 0.50 - 08/06 The Lvl 1.40 [place] CHEM PANEL Alk Phos 134 unit/L 39 - 136 08/06 The [place] CHEM PANEL Bili Total 0.8 mg/dL 0.2 - 1.3 08/06 The [place] CHEM PANEL ALT 29 unit/L 0 - 65 08/06 The [place] CHEM PANEL Albumin Lvl 3.5 g/dL 3.5 - 5.0 08/06 The [place] CHEM PANEL AST 28 unit/L 0 - 37 08/06 The [place] CHEM PANEL Total 6.7 g/dL 6.4 - 8.4 08/06 The Protein [place] CHEM PANEL Calcium Lvl 8.5 mg/dL 8.5 - 10.5 08/06 The [place] CHEM PANEL eGFR 34 08/06 Result Comment: [...] is not recommended in the following populations: [place] 3m2 Individuals with unstable creatinine concentrations, including [...] 23.8 pg 27.0 - 08/06 The 31.0 [place] HEMATOLOGY RDW 18.4 % 11.5 - 08/06 The 14.5 [place] HEMATOLOGY MPV 9.3 fL 7.4 - 10.4 08/06 The [place] HEMATOLOGY Platelet 135 K/CMM 133 - 450 08/06 The [place] HEMATOLOGY MCHC 31.9 g/dL 32.0 - 08/06 The 36.0 [place] HEMATOLOGY Hct 30.4 % 42.0 - 08/06 The 54.0 [place] HEMATOLOGY MCV 74.5 fL 80.0 - 08/06 The 94.0 [place] HEMATOLOGY RBC 4.08 M/CMM 4.70 - 08/06 The 6.10 [place] HEMATOLOGY Hgb 9.7 g/dL 14.0 - 08/06 The 18.0 [place] HEMATOLOGY WBC 4.8 K/CMM 3.7 - 10.4 08/06 The [place] HEMATOLOGY PTT 30.0 s 22.9 - 08/06 The 35.8 [place] HEMATOLOGY PT 14.6 s 12.0 - 08/06 The 14. [place] HEMATOLOGY INR 1.14 0.85 - 08/06 The 1.17 [place] HEMATOLOGY Monocytes # 0.4 K/CMM 0.0 - 0.8 08/06 The [place] HEMATOLOGY Eosinophils 0.2 K/CMM 0.0 - 0.5 08/06 The [place] HEMATOLOGY Microcyte 1+ None Seen 08/06 The [place] *ABN* (08/06/17 1:09 AM) HEMATOLOGY Basophils 0.5 % 0.0 - 1.0 08/06 The [place] HEMATOLOGY Segs-Bands # 3.4 K/CMM 1.5 - 8.1 08/06 The [place] HEMATOLOGY Lymphocytes 0.8 K/CMM 1.0 - 5.5 08/06 The # [place] HEMATOLOGY Lymphocytes 15.8 % 20.0 - 08/06 The 40.0 [place] HEMATOLOGY Monocytes 8.5 % 2.0 - 12.0 08/06 The [place] HEMATOLOGY Segs 70.6 % 45.0 - 08/06 The 75.0 [place] HEMATOLOGY Eosinophils 4.6 % 0.0 - 4.0 08/06 The [place] Brain wo Brain wo CT HEAD WITHOUT CONTRAST 08/06 - The contrast contrast CT /2017 - [place] CT Clinical Indication: - head trauma, plavix. [...] placement. 2. No focal infiltrates . SL: [id number] CHEM PANEL eGFR 41 11/03 Result Comment: [...] is not recommended in the following populations: [address] Individuals with unstable creatinine concentrations, including [...] Basophils 0.4 % 0.0 - 1.0 11/02 [facility] Platelet 97 K/CMM 133 - 450 11/02 [facility] MPV 9.8 fL 7.4 - 10.4 11/02 [facility] HEMATOLOGY RDW 13.8 % 11.5 - 11/02 MH 14.5 [facility] WBC 3.6 K/CMM 3.7 - 10.4 11/02 [facility] HEMATOLOGY RBC 3.45 M/CMM 4.70 - 11/02 MH 6.10 [facility] Hgb 10.5 g/dL 14.0 - 11/02 MH 18.0 [facility] Hct 30.8 % 42.0 - 11/02 MH 54.0 [facility] MCV 89.3 fL 80.0 - 11/02 MH 94.0 [facility] MCHC 34.2 g/dL 32.0 - 11/02 MH 36.0 [facility] MCH 30.6 pg 27.0 - 11/[address] [facility] Hgb A1C 7.4 % <=5.6 % [...] Platelet 115 K/CMM 133 - 450 12/27 [facility] RDW 14.7 % 11.5 - 12/27 14.5 /2015 [facility] MCHC 33.1 g/dL 32.0 - 12/27 MH 36.0 /2015 [facility] MCV 92.8 fL 80.0 - 12/27 94.0 /2015 [facility] MCH 30.7 pg 27.0 - 12/27 MH 31.0 /2015 [facility] WBC 4.2 K/CMM 3.7 - 10.4 12/27 [...] IMPRESSION: No acute infiltrates or effusions. SL: [id number] CHEM PANEL Phosphorus 3.7 mg/dL 2.5 - 4.5 05/22 [facility] /[address] [place] [address] CHEM PANEL Magnesium 2.1 mg/dL 1.8 - 2.4 05/22 [facility] CHEM PANEL eGFR 49 05/22 Result Comment: The eGFR is calculated using the CKD-EPI formula. In most young, healthy individuals the eGFR will be >90 mL/ min/1.73m2. The eGFR declines with age. An eGFR of 60-89 may be normal in [facility] mL/min/1.7 /2014 some populations, particularly the elderly, for whom the CKD-EPI formula has not been extensively validated. Use of the eGFR is not recommended in the following populations: [address] Individuals with unstable creatinine concentrations, including [...] Lvl 8.2 mg/dL 8.5 - 10.5 05/22 [facility] CHEM PANEL Creatinine 1.35 mg/dL 0.50 - 05/22 [facility] Lvl 1.40 [facility] CHEM PANEL Chloride Lvl 108 meq/L 95 - 109 05/22 [facility] CHEM PANEL CO2 26 meq/L 24 - 32 05/22 [facility] CHEM PANEL Sodium Lvl 141 meq/L 135 - 145 05/22 [facility] CHEM PANEL Potassium 4.5 meq/L 3.5 - 5.1 05/22 [facility] l [facility] CHEM PANEL Glucose Lvl 110 mg/dL 70 - 99 05/22 [facility] CHEM PANEL BUN 22 mg/dL 7 - 22 05/22 [facility] CHEM PANEL AGAP 11.5 meq/L 10.0 - 05/22 20.0 [facility] HEMATOLOGY RDW 13.1 % 11.5 - 05/22 14.5 [facility] HEMATOLOGY MCHC 32.5 g/dL 32.0 - 05/22 [place] 36.0 [facility] HEMATOLOGY MCH 32.3 pg 27.0 - 05/22 31.0 [facility] HEMATOLOGY MCV 99.6 fL 80.0 - 05/22 [facility] 94.0 [facility] HEMATOLOGY Hct 31.2 % 42.0 - 05/22 [place] 54.0 /2015 [facility] HEMATOLOGY MPV 9.4 fL 7.4 - 10.4 05/22 /2014 [facility] HEMATOLOGY Platelet 127 K/CMM 133 - 450 05/22 /2014 [facility] HEMATOLOGY Hgb 10.1 g/dL 14.0 - 05/22 [place] 18.0 /2014 [facility] HEMATOLOGY RBC 3.14 M/CMM 4.70 - 05/22 [place] 6.10 /2014 [facility] HEMATOLOGY WBC 4.4 K/CMM 3.7 - 10.4 05/22 [facility] HEMATOLOGY Eosinophils 0.2 K/CMM 0.0 - 0.5 05/22 [facility] # /2015 [facility] HEMATOLOGY Monocytes # 0.5 K/CMM 0.0 - 0.8 05/22 [facility] HEMATOLOGY Lymphocytes 19.4 % 20.0 - 05/22 [facility] 40.0 /2014 [facility] HEMATOLOGY Segs 64.5 % 45.0 - 05/22 [facility] 75.0 /2014 [facility] HEMATOLOGY Lymphocytes 0.9 K/CMM 1.0 - 5.5 05/22 [facility] # /2015 [facility] HEMATOLOGY Segs-Bands # 2.8 K/CMM 1.5 - 8.1 05/22 [facility] HEMATOLOGY Basophils 0.5 % 0.0 - 1.0 05/22 [facility] HEMATOLOGY Eosinophils 3.9 % 0.0 - 4.0 05/[address] [place] [address] HEMATOLOGY Monocytes 11.7 % 2.0 - 12.0 05/[address] [place] [address] HVI VAS HVI VAS INDICATION: groin hematoma 05/22 - [facility] Arterial/b Arterial/by /2014 - [facility] ypass ass Lower This report was dictated by a Tire Maker/ Fellow. I have personally reviewed the images [...] fistula. CARDIAC Troponin-T 0.014 0.000 - 05/21 [facility] ENZYMES ng/mL 0.100 /2014 [facility] CARDIAC Troponin-I 0.04 ng/mL 0.00 - 12 [facility] ENZYMES 0.40 /2014 [facility] CARDIAC Total CK 34 unit/L 12 - 191 05/21 [facility] ENZYMES /2014 [facility] CHEM PANEL eGFR 63 05/21 Result Comment: The eGFR is calculated using the CKD-EPI formula. In most young, healthy individuals the eGFR will be >90 mL/ min/1.73m2. The eGFR declines with age. An eGFR of 60-89 may be normal in [facility] mL/min/1.7 some populations, particularly the elderly, for whom the CKD-EPI formula has not been extensively validated. Use of the eGFR is not recommended in the following populations: [address] Individuals with unstable creatinine concentrations, including [...] PANEL AGAP 15.1 meq/L 10.0 - 05/21 [facility] 20.0 [facility] CHEM PANEL Calcium Lvl 8.5 mg/dL 8.5 - 10.5 05/21 [facility] CHEM PANEL CO2 20 meq/L 24 - 32 05/21 [facility] /2014 [facility] CHEM PANEL Creatinine 1.09 mg/dL 0.50 - 05/21 [facility] 1.40 [facility] CHEM PANEL BUN 17 mg/dL 7 - 22 05/[address] CHEM PANEL Potassium 4.1 meq/L 3.5 - 5.1 05/21 [facility] Lvl /2014 [facility] CHEM PANEL Sodium Lvl 140 meq/L 135 - 145 12/12 [facility] CHEM PANEL Glucose Lvl 177 mg/dL 70 - 99 12 [facility] CHEM PANEL Chloride Lvl 109 meq/L 95 - 109 05/21 [facility] CHEM PANEL Phosphorus 4.2 mg/dL 2.5 - 4.5 05/21 [facility] CHEM PANEL Magnesium 2.2 mg/dL 1.8 - 2.4 05/21 [facility] Lvl [facility] HEMATOLOGY Macrocyte 1+ None [facility]en [facility] 12[facility]13 [facility] HEMATOLOGY Lymphocytes 0.6 K/CMM 1.0 - 5.5 05/21 [facility] # /2014 [facility] HEMATOLOGY Basophils 0.4 % 0.0 - 1.0 05/21 [facility] HEMATOLOGY Monocytes # 0.4 K/CMM 0.0 - 0.8 05/[address] [place] [address] HEMATOLOGY Lymphocytes 15.6 % 20.0 - 05/21 [facility] 40.0 [facility] HEMATOLOGY Segs-Bands # 3.0 K/CMM 1.5 - 8.1 05/[address] [place] [address] HEMATOLOGY Monocytes 8.8 % 2.0 - 12.0 05/21 [facility] HEMATOLOGY Eosinophils 0.7 % 0.0 - 4.0 05/21 [facility] HEMATOLOGY Segs 74.5 % 45.0 - 05/21 [facility] 75.0 [facility] HEMATOLOGY INR 1.11 0.85 - 05/21 [facility] 1.17 [facility] HEMATOLOGY PTT 30.1 s 22.9 - 12 35.8 [facility] HEMATOLOGY PT 14.6 s 12.0 - 12 [facility] 14.7 [facility] HEMATOLOGY Platelet 117 K/CMM 133 - 450 12 [facility] HEMATOLOGY MPV 9.6 fL 7.4 - 10.4 05/21 [facility] HEMATOLOGY MCH 33.1 pg 27.0 - 12 [facility] 31.0 [facility] HEMATOLOGY MCHC 32.9 g/dL 32.0 - 12 [facility] 36.0 [facility] HEMATOLOGY RDW 13.2 % 11.5 - 12/ [facility] 14.5 [facility] HEMATOLOGY Hgb 10.2 g/dL 14.0 - 05/21 [facility] 18.0 [facility] HEMATOLOGY Hct 30.9 % 42.0 - 05/21 [facility] 54.0 /2014 [facility] HEMATOLOGY MCV 100.6 fL 80.0 - 05/21 [facility] 94.0 /2014 [facility] HEMATOLOGY RBC 3.07 M/CMM 4.70 - 05/21 [facility] 6.10 [facility] HEMATOLOGY WBC 4.0 K/CMM 3.7 - 10.4 05/21 [facility] PARATHYROI Ca Norm WB 1.13 1.05 - 05/21 [facility] D PROFILE mMol/L 1. [facility] PARATHYROI Ca Ion WB 1.09 1. - 05/21 [facility] D PROFILE mMol/L 1. [facility] CHEM PANEL Lactic Acid 0.7 mMol/L 0.5 - 2.2 05/20 [facility] CHEM PANEL Magnesium 1.4 mg/dL 1.8 - 2.4 05/20 [facility] CHEM PANEL Phosphorus 3.5 mg/dL 2.5 - 4.5 05/20 [facility] CHEM PANEL eGFR 78 05/20 Result Comment: The eGFR is calculated using the CKD-EPI formula. In most young, healthy individuals the eGFR will be >90 mL/ min/1.73m2. The eGFR declines with age. An eGFR of 60-89 may be normal in [facility] mL/min/1. some populations, particularly the elderly, for whom the CKD-EPI formula has not been extensively validated. Use of the eGFR is not recommended in the following populations: [address] Individuals with unstable creatinine concentrations, including [...] mg/dL 8.5 - 10.5 05/20 Result Comment: [facility] Result(s) called to HANK TANNER at 05/20/2015 14:22_ by CN_. Read back OK. CHEM PANEL AGAP 14.7 meq/L 10.0 - 12 [place] 20.0 /2014 [facility] CHEM PANEL Glucose Lvl 108 mg/dL 70 - 99 12 [facility] CHEM PANEL Sodium Lvl 145 meq/L 135 - 145 12/ [facility] CHEM PANEL Potassium 2.7 meq/L 3.5 - 5.1 12 Result [facility] Lvl /2014 Comment: [facility] Result(s) called to HANK TANNER at 05/20/2015 14:22_ by CN_. Read back OK. CHEM PANEL BUN 12 mg/dL 7 - 22 12 [facility] CHEM PANEL Creatinine 0.92 mg/dL 0.50 - 12 [facility] Lvl 1.40 [facility] CHEM PANEL Chloride Lvl 113 meq/L 95 - 109 05/20 [facility] CHEM PANEL CO2 20 meq/L 24 - 32 12 [facility] HEMATOLOGY PTT >200 22.9 - 05/20 Result [facility] seconds 35.8 Comment: [facility] Result(s) called to Benigno Jennings at 05/20/2015 14:[address] Read back OK. HEMATOLOGY PT 16.3 s 12.0 - 05/20 [place] 14.7 /2014 [facility] HEMATOLOGY INR 1.28 0.85 - 05/20 [place] 1.17 /2014 [facility] HEMATOLOGY Platelet 108 K/CMM 133 - 450 12 [facility] HEMATOLOGY MPV 9.8 fL 7.4 - 10.4 12 [facility] HEMATOLOGY MCV 100.5 fL 80.0 - 05/20 [place] 94.0 /2014 [facility] HEMATOLOGY RDW 13.3 % 11.5 - 12 [place] 14.5 [facility] HEMATOLOGY MCHC 32.9 g/dL 32.0 - 12 [place] 36.0 /2014 [facility] HEMATOLOGY MCH 33.1 pg 27.0 - 12 [place] 31.0 /2014 [facility] HEMATOLOGY RBC 2.95 M/CMM 4.70 - 12/ [place] 6.10 /2014 [facility] HEMATOLOGY Hct 29.7 % 42.0 - 12 [place] 54.0 [facility] HEMATOLOGY Hgb 9.8 g/dL 14.0 - 05/20 [facility] 18.0 /2014 [facility] HEMATOLOGY WBC 3.6 K/CMM 3.7 - 10.4 05/20 [facility] HEMATOLOGY Monocytes 11.3 % 2.0 - 12.0 05/20 [facility] [address] [place] [address] HEMATOLOGY Segs 60.4 % 45.0 - 05/20 [facility] 75.0 /2014 [facility] HEMATOLOGY Lymphocytes 23.3 % 20.0 - 05/20 [place] 40.0 /2014 [facility] HEMATOLOGY Segs-Bands # 2.2 K/CMM 1.5 - 8.1 05/20 [facility] HEMATOLOGY Lymphocytes 0.9 K/CMM 1.0 - 5.5 05/20 [facility] # /2014 [facility] HEMATOLOGY Basophils 0.3 % 0.0 - 1.0 05/20 [facility] HEMATOLOGY Eosinophils 4.7 % 0.0 - 4.0 05/[address] HEMATOLOGY Monocytes # 0.4 K/CMM 0.0 - 0.8 05/[address] HEMATOLOGY Macrocyte 1+ None Seen 05[facility] 1:48 PM[facility] HEMATOLOGY Eosinophils 0.2 K/CMM 0.0 - 0.5 05/20 [facility] /2014 [facility] PARATHYROI Ca Ion WB 1.12 1.05 - 05/20 [facility] D PROFILE mMol/L 1. [facility] PARATHYROI Ca Norm WB 1.09 1.05 - 05/20 [facility] D PROFILE mMol/L 1. [facility] CHEM PANEL Globulin 3.0 g/dL 2.0 - 4.0 05/20 [facility] CHEM PANEL B/C Ratio 15 6 - 25 05/20 [facility] [address] [place] [address] CHEM PANEL Bili Total 0.8 mg/dL 0.2 - 1.3 05/20 [facility] CHEM PANEL A/G Ratio 1.1 0.7 - 1.6 05/[address] CHEM PANEL Alk Phos 73 unit/L 39 - 136 05/[address] CHEM PANEL Albumin Lvl 3.2 g/dL 3.5 - 5.0 05/[address] CHEM PANEL ALT 30 unit/L 0 - 65 12 [facility] CHEM PANEL AST 20 unit/L 0 - 37 12/ [facility] CHEM PANEL Total 6.2 g/dL 6.4 - 8.4 05/20 [facility] Protein [facility] HEMATOLOGY INR 1.06 0.85 - 12 [place] 1.17 /2014 [facility] HEMATOLOGY PT 14.1 s 12.0 - 12 [place] 14.7 /2014 [facility] HEMATOLOGY PTT 67.4 s 22.9 - 12 [place] 35.8 /2014 [facility] HEMATOLOGY Eosinophils 0.2 K/CMM 0.0 - 0.5 12 [place] # /2014 [facility] CHEM PANEL AST 27 unit/L 0 - 37 05/17 [facility] CHEM PANEL ALT 30 unit/L 0 - 65 05/17 [facility] CHEM PANEL Albumin Lvl 3.0 g/dL 3.5 - 5.0 05/17 [facility] CHEM PANEL Alk Phos 65 unit/L 39 - 136 05/17 [facility] CHEM PANEL B/C Ratio 11 6 - 25 05/17 [facility] [address] [place] [address] CHEM PANEL Bili Total 0.8 mg/dL 0.2 - 1.3 05/17 [facility] CHEM PANEL Total 5.6 g/dL 6.4 - 8.4 05/17 [facility] Protein [facility] CHEM PANEL A/G Ratio 1.2 0.7 - 1.6 05/[address] CHEM PANEL Globulin 2.6 g/dL 2.0 - 4.0 05/17 [facility] HEMATOLOGY PTT 58.0 s 22.9 - 12 [...] eGFR of 60-89 may be normal in [facility] mL/min/1.7 /2014 some populations, particularly the elderly, [...] Potassium 3.9 meq/L 3.5 - 5.1 05/15 [facility] Lvl [facility] ELECTROLYT Chloride Lvl 109 meq/L 95 - 109 05/15 [facility] ELECTROLYT Glucose Lvl 117 mg/dL 70 - 99 05/15 [facility] ELECTROLYT Creatinine 1.15 mg/dL 0.50 - 05/15 [facility] Lvl 1.40 [facility] ELECTROLYT [...] 56.4 s 22.9 - 05/15 [facility] 35.8 [facility] MCH 33.4 pg 27.0 - 05/15 [facility] [...] 13.4 % 11.5 - 05/15 [facility] 14.5 [facility] MCHC 33.6 g/dL 32.0 - 05/15 [facility] 36.0 /2014 [facility] RBC 3.30 M/CMM 4.70 - 05/15 6.10 [facility] Hgb 11.0 g/dL 14.0 - 05/15 18.0 [facility] WBC 4.7 K/CMM 3.7 - 10.4 05/15 [facility] PTT 55.3 s 22.9 - 05/14 [facility] [...] Chest Chest 1view Name: GILL MADERA 05/12 [facility] 1view DX DX /[facility] [...] Renal Renal Stone Name: GILL MADERA 11/13 [facility] Stone CT CT /2013 - Outpatient [...] reconstructions were obtained and viewed on a [employer] workstation. FINDINGS: A 5 mm calcified granuloma [...] Creatinine 2.1 mg/dL 0.5 - 1.4 06/26 [facility] Lvl [facility] CHEMISTRY Glucose Lvl 175 mg/dL 06/26 NA 4Interpretive Data: [facility] Reference Ranges : 0 - 7 days : 41 - 90 mg/dL7 days - 150 yrs : 70 - 99 mg/dL (fasting), based on the clinical recommendatio ns of the [employer]. CHEMISTRY BUN 36 mg/dL 7 [...] 10.0 fL 7.4 - 10.4 06/26 Normal [facility] MCHC 35.5 g/dL 32.0 - 06/26 Normal 36.0 /2011 [facility] HEMATOLOGY RDW 13.4 % 11.5 - 06/26 Normal [facility] 14.5 /2011 [facility] Platelet 127 K/CMM 133 - 450 06/26 [...] HEMATOLOGY MCH 34.5 pg 27.0 - 06/26 [facility] 31.0 [place] HEMATOLOGY RBC 3.32 M/CMM [...] Date Comments Source Respitory Rate 19 08/06/2017 [place] Systolic (mm Hg) 131 08/06/2017 [place] Diastolic (mm Hg) 62 08/06/2017 [place] Respitory Rate 18 08/06/2017 [place] Systolic (mm Hg) 131 08/06/2017 [place] Diastolic (mm Hg) 62 08/06/2017 [place] Respitory Rate 19 08/06/2017 [place] Systolic (mm Hg) 121 08/06/2017 [place] Diastolic (mm Hg) 64 08/06/2017 [place] Weight 90.909 08/06/2017 [place] BMI Calculated 28.76 08/06/2017 [place] Height 177.8 cm 08/06/2017 [place] Temperature Oral (F) 97.6 F 08/06/2017 [place] Heart Rate 68 08/06/2017 [place] Respitory Rate 20 05/30/2017 [place] Heart Rate 58 05/30/2017 [place] Systolic (mm Hg) 132 05/30/2017 [place] Diastolic (mm Hg) 68 05/30/2017 [facility] Temperature Oral (F) 98.1 F 05/30/2017 [...] 11/03/2016 [place] Diastolic (mm Hg) 64 11/03/2016 [facility] Temperature Oral (F) 97.6 F 11/03/2016 [place] Heart Rate 66 11/03/2016 [facility] Temperature Oral (F) 98.2 F 11/03/2016 [place] Heart Rate 68 11/03/2016 [place] Respitory Rate 18 11/03/2016 [place] Systolic (mm Hg) 101 11/03/2016 [place] Diastolic (mm Hg) 50 11/03/2016 [facility] Systolic (mm Hg) 121 11/03/2016 [place] Diastolic (mm Hg) 56 11/03/2016 [facility] Respitory Rate 18 11/03/2016 [facility] Heart Rate 65 11/03/2016 [facility] Temperature Oral (F) 98.2 F 11/03/2016 [place] Respitory Rate 18 11/03/2016 [facility] BMI Calculated 28.04 11/03/2016 [facility] Height [...] Hg) 65 12/30/2015 [place] Weight 82.273 12/30/2015 [facility] Temperature Oral (F) 98.2 F 12/30/2015 [place] Heart Rate 64 12/30/2015 [facility] Systolic (mm Hg) 130 12/30/2015 [place] Diastolic (mm Hg) 64 12/30/2015 [facility] Respitory Rate 16 12/30/2015 [facility] BMI Calculated 28.82 12/28/2015 [facility] Weight 83.455 12/28/2015 [place] Height 170.18 cm 12/28/2015 [facility] BMI Calculated 29.25 12/28/2015 [facility] Height 170.18 cm 12/28/2015 [facility] Weight 84.716 12/28/2015 [facility] Systolic (mm Hg) 104 05/22/2015 [facility] Diastolic (mm Hg) 52 05/22/2015 [facility] Systolic (mm Hg) 109 05/22/2015 [facility] Diastolic (mm Hg) 52 05/22/2015 [facility] Temperature Oral (F) 98.2 F 05/22/2015 [facility] Systolic (mm Hg) 140 05/22/2015 [facility] Diastolic (mm Hg) 66 05/22/2015 [facility] Temperature Oral (F) 98.2 F 05/21/2015 [facility] Temperature Oral (F) 98.0 F 05/21/2015 [facility] Respitory Rate 20 05/20/2015 [facility] Heart Rate 63 05/20/2015 [facility] Respitory Rate 18 05/20/2015 [facility] Heart Rate 63 05/20/2015 [facility] Heart Rate 73 05/20/2015 [facility] Respitory Rate 18 05/20/2015 [facility] BMI Calculated 29.35 05/17/2015 [facility] Height 170.18 cm 05/17/2015 [facility] Weight 85 05/17/2015 [facility] Systolic (mm Hg) 144 05/17/2015 [facility] Diastolic [...] 70 06/29/2011 [place] Heart Rate 90 06/29/2011 [facility] Temperature Oral (F) 98.0 F 06/29/2011 [facility] Respitory Rate 20 06/29/2011 [facility] Systolic (mm Hg) 137 06/29/2011 [facility] Weight 94.545 06/26/2011 [facility] Height 170.18 cm 06/26/2011 [facility] Encounters Location Location Encounter Encounter Reason Attending ADM DC Status Source Details Type Number For Provider Date Date Visit Not Sent YOANDY [id number] CHRONIC PING WING 06/28 06/29 Active 0 SYSTOLIC /2011 [facility] FAIL[facility] 428.22 ANGIN[facility] 413.9. [facility] Outpt Diag [id number] [place] 11/13 11/14 [facility] Out[facility] Services 0 [facility] Cardiovasc STRESS TEST [id number] 12/17 12/17 Cardiova ular [id number] /2013 [id number] 18d Cardiovasc STRESS TEST [id number] 12/17 12/17 [facility] [id number] /2013 [id number] bb9 Cardiovasc STRESS TEST [id number] 12/17 12/17 [facility] [id number] /2013 [id number] [facility] c19 Cardiovasc STRESS TEST [id number] 12/17 12/17 [facility] [id number] /2013 [id number] [facility] c2a Cardiovasc STRESS TEST [id number] 12/17 12/17 [facility] dd-[id number] /2013 [id number] [facility] 790 Cardiovasc STRESS TEST [id number] 12/17 12/17 [facility] [id number] /2013 [id number] [facility] eaf Cardiovasc STRESS TEST [id number] 12/17 12/17 [facility] [id number] /2013 [id number] [facility] 8e8 Cardiovasc STRESS TEST [id number] 12/17 12/17 [facility] 33-9k15-beh /2013 [id number] [facility] 8f0 Cardiovasc STRESS TEST [id number] 12/17 12/17 [facility] f5-40ef-8e /2013 [id number] [facility] 188 Cardiovasc STRESS TEST [id number] 12/17 12/17 [facility] [id number] /2013 [id number] [facility] a47 Cardiovasc Established [id number] 12/17 12/17 [facility] Patient [id number] /2013 [id number] [facility] 523 Cardiovasc Established [id number] 12/17 12/17 [facility] Patient 3b-9if1-g93 /2013 [id number] [facility] 6c1 Cardiovasc Established [id number] 12/17 12/17 [facility] Patient f1-4817-bfa /2013 [id number] [facility] 31e Cardiovasc Established [id number] 12/17 12/17 [facility] Patient 4a-[id number] /2013 [facility] [id number] [facility] c3c Cardiovasc Established [id number] 12/17 12/17 [facility] Patient 2b-[id number] /2013 [id number] [facility] dc5 Cardiovasc Established [id number] 12/17 12/17 [facility] Patient 63-29m4-043 /2013 [id number] [facility] 99c Cardiovasc Established [id number] 12/17 12/17 [facility] Patient [id number] /2013 [facility] [id number] [facility] acf Cardiovasc Established [id number] 12/17 12/17 [facility] Patient 0a-44fd-b7 [facility] [id number] [facility] 2ca Cardiovasc Established [id number] 12/17 12/17 [facility] Patient 20-4590-8a6 [id number] [facility] 4e4 Cardiovasc Established [id number] 12/17 12/17 [facility] Patient f0-4996-bbc [facility][id number] [facility] e92 Cardiovasc Established [id number] 03/19 03/19 [facility] Patient c9-49fa-9af [id number] [facility] 99e Cardiovasc Established [id number] 03/19 03/19 [facility] Patient b5-2x5l-841 /2013 [id number] [facility] e95 Cardiovasc Established [id number] 03/19 03/19 [facility] Patient ea-425a-99b /2013 [facility] [id number] [facility] 365 Cardiovasc Established [id number] 03/19 03/19 [facility] Patient e1-20o8-s9h /2013 [id number] [facility] 096 Cardiovasc Established [id number] 03/19 03/19 [facility] Patient [id number] /2013 [id number] [facility] 0e7 Cardiovasc Established [id number] 03/19 03/19 [facility] Patient [id number] /2013 [facility] [id number] [facility] 1d9 Cardiovasc Established [id number] 03/19 03/19 [facility] Patient 3e-9g56-83a /2013 [id number] [facility] 94f Cardiovasc Established [id number] 03/19 03/19 [facility] Patient 2a-4897-a60 /2013 [id number] [facility] a8b Cardiovasc Established [id number] 03/19 03/19 [facility] Patient 80-3he5-q8o /2013 [id number] [facility] c27 Cardiovasc Established [id number] 03/19 03/19 [facility] Patient a6-46cc-8a6 [facility][id number] [facility] 33a Cardiovasc Established [id number] 06/25 06/25 [facility] Patient 2b-495e-9b9 /2014 [id number] [facility] a45 Cardiovasc Established [id number] 06/25 06/25 [facility] Patient 27-3t49-28a /2014 [facility] [id number] [facility] [place] Cardiovasc Established [id number] 06/25 06/25 [facility] Patient 3f-7u20-31u /2014 [facility] [id number] [facility] e6e Cardiovasc Established [id number] 06/25 06/25 [facility] Patient 38-4t7d-g1c /2014 [facility][id number] [facility] 92b Cardiovasc Established [id number] 06/25 06/25 [facility] Patient 27-6r9g-858 /2014 [facility] [id number] [facility] 1fb Cardiovasc Established [id number] 06/25 06/25 [facility] Patient [id number] /2014 [id number] [facility] bf1 Cardiovasc Established [id number] 06/25 06/25 [facility] Patient [id number] /2014 [id number] [facility] 5fc Cardiovasc [place] [id number] 08/06 08/06 [facility] refill [id number] /2014 [id number] [facility] a59 Cardiovasc [place] [id number] 08/06 08/06 Cardi[facility] ular refill [id number] /2014 [facility] [id number] [facility] 2ae Cardiovasc [place] [id number] 08/06 08/06 Cardi[facility] ular refill [id number]-874 /2014 [facility] [id number] [facility] 751 Cardiovasc [place] [id number] 08/06 08/06 Cardi[facility] ular refill 28-6f9f-7st /2014 [facility] [id number] [facility] 3d8 Cardiovasc [place] [id number] 08/06 08/06 Cardiova ular refill [id number] /2014 [facility] [id number] [facility] 2ee Cardiovasc [place] [id number] 08/06 08/06 Cardi[facility] ular refill [id number] /2014 [id number] [facility] 472 Cardiovasc Unknown [id number] 08/18 08/18 [facility] [id number] /2014 [id number] [facility] d59 Cardiovasc Unknown [id number] 08/18 08/18 [facility] [id number] /2014 [facility] [id number] [facility] a62 Cardiovasc Unknown [id number] 08/18 08/18 [facility] [id number]-b56 /2014 [facility] [id number] [facility] 242 Cardiovasc Unknown [id number] 08/18 08/18 [facility] [id number] /2014 [facility] [id number] [facility] a07 Cardiovasc Unknown [id number] 08/18 08/18 Cardiova ular [id number] /2014 [facility]atio [id number] [facility] 85e Cardiovasc Unknown [id number] 08/18 08/18 Cardiova ular [id number] /2014 [facility] [id number] [facility] chest pain. [id number] 10/07 10/07 Cardiova ular 10/06 [id number] /2014 [id number] [facility] 12d Cardiovasc chest pain. [id number] 10/07 10/07 Cardiova ular 10/06 [id number] /2014 [facility] [id number] [facility] 40e Cardiovasc chest pain. [id number] 10/07 10/07 Cardiova ular 10/06 [id number] /2014 [facility]atio [id number] [facility] cc8 Cardiovasc chest pain. [id number] 10/07 10/07 Cardiova ular 10/06 [id number] /2014 [facility] [id number] [facility] e95 Cardiovasc chest pain. [id number] 10/07 10/07 Cardiova ular 10/06 [id number] /2014 [facility] [id number] [facility] d6e Cardiovasc chest pain. [id number] 10/07 10/07 Cardiova ular 10/06 [id number] /2014 [id number] [facility] 512 Cardiovasc Established [id number] 01/18 01/18 Cardiova ular Patient [id number] /2014 [facility] [id number] [facility] e4e Cardiovasc Established [id number] 01/18 01/18 Cardiova ular Patient [id number] /2014 [facility]atio [id number] [facility] 57a Cardiovasc Established [id number] 01/18 01/18 Cardiova ular Patient [id number] /2014 [facility] [id number] [facility] 09c Cardiovasc Established [id number] 01/18 01/18 Cardiova ular Patient [id number] /2014 [facility] [id number] [facility] ea8 Cardiovasc Established [id number] 01/18 01/18 Cardiova ular Patient [id number] /2014 [facility] [id number] [facility] b26 Cardiovasc Established [id number] 01/18 01/18 Cardiova ular Patient [id number] /2014 [facility] [id number] [facility] 338 Cardiovasc possible [id number] 05/11 05/11 Cardiova ular heart [id number] /2014 [facility] attack [id number] [facility] 24b Cardiovasc possible [id number] 05/11 05/11 Cardiova ular heart [id number] /2014 [facility] attack [id number] [facility] 4a0 Cardiovasc possible [id number] 05/11 05/11 Cardiova ular heart [id number] /2014 [facility] Associatio attack [id number] [facility] 39d Cardiovasc possible [id number] 05/11 05/11 Cardiova ular heart [id number] /2014 scular Associatio attack [id number] [facility] ad0 Cardiovasc possible [id number] 05/11 05/11 Cardiova ular heart [id number] /2014 scular Associatio attack [id number] [facility] 6cc Cardiovasc possible [id number] 05/11 05/11 Cardiova ular heart [id number] /2014 scular Associatio attack [id number] [facility] af7 Cardiovasc Established [id number] 05/12 05/12 Cardiova ular Patient [id number] /2014 [facility]ular [facility] [id number] [facility] 5a7 Cardiovasc Established [id number] 05/12 05/12 Cardiova ular Patient [id number] /2014 [facility] [id number] [facility] 97a Cardiovasc Established [id number] 05/12 05/12 Cardiova ular Patient [id number] /2014 [facility] [id number] [facility] 0da Cardiovasc Established [id number] 05/12 05/12 Cardiova ular Patient [id number] /2014 scular [facility]atio [id number] [facility] 3a7 Cardiovasc Established [id number] 05/12 05/12 Cardiova ular Patient [id number] /2014 scular [facility]atio [id number] [facility] a0a Cardiovasc Established [id number] 05/12 05/12 Cardiova ular Patient [id number] /2014 scular Associatio [id number] [facility] 1ea [facility] Inpatient [id number] [facility] 05/12 05/17 Harley 1 [facility]patient [id number] [facility] 05/17 05/22 [facility] 1 Atashband /2014 [facility] Cardiovasc Pt in [id number] 05/18 05/18 Cardiova ular [facility] [id number] /2014 scular Associatio 05/18 [id number] [facility] d79 Cardiovasc Pt in [id number] 05/18 05/18 Cardiova ular [facility] [id number] /2014 scular Associatio 05/18 [id number] [facility] e58 Cardiovasc Pt in [id number] 05/18 05/18 Cardiova ular [facility] [id number] /2014 scular Associatio 05/18 [id number] [facility] 87e Cardiovasc Pt in [id number] 05/18 05/18 Cardiova ular [facility] [id number] /2014 scular Associatio 05/18 [id number] [facility] e6c Cardiovasc [place] [id number] 10/18 10/18 Cardiova ular [facility] [id number] /2015 scular Associatio [id number] [facility] 6b3 Cardiovasc [place] [id number] 10/18 10/18 Cardiova ular [place] [id number] /2015 scular Associatio [id number] [facility] 9b9 Cardiovasc [place] [id number] 10/18 10/18 Cardiova ular [place] [id number] /2015 scular Associatio [id number] [facility] b98 Cardiovasc chest pain [id number] 12/27 12/27 Cardiova ular [id number] /2015 scular Associatio [id number] [facility] 5ea Cardiovasc chest pain [id number] 12/27 12/27 Cardiova ular [id number] /2015 scular Associatio [id number] [facility] 536 [facility] [id number] [place] 12/27 12/29 Harley 2 Ajelabi /2015 [facility] Cardiovasc Established [id number] 04/10 04/10 Cardiova ular Patient [id number] /2015 scular Associatio [id number] [facility] bbf [facility] [id number] Janeth 11/02 11/03 Harley 7 Jagdepe /2016 [facility] [id number] Shahzad 05/30 05/30 Harley 3 [facility] [id number] Vanda 08/06 08/06 Cj Souza 4 Nick /2017 [facility] Procedures Procedure Code Date Perfomer Comments Source CABG x 2 - [id number] [facility] Coronary artery bypass grafts x 2 Excision of [id number] [facility] gallbladder CABG x 2 - [id number] [facility] artery [facility] bypass grafts x 2 Excision of [id number] [facility] Angioplasty [id number] [facility] Angioplasty [id number] [facility] CABG x 2 - [id number] The Coronary artery [place] bypass grafts x 2 Excision of [id number] The gallbladder [place]
--- OUTSIDE RECORDS SUMMARY | 2018-01-23 23:44 | XMS REPORT | CCD ---
:1935 Author Organization [facility] Care Team Providers Name Role Phone Jessica [...] PO, Drug 06/28/2011 06/29/2011 Discontinued Form: TAB, [id number], Start date: 06/28/11 6:00:00, Duration: 4 doses [...] based on the clinical recommendations of the [place] [employer].HEMATOLOGY Most recent to oldest [Reference [...]
--- OUTSIDE RECORDS SUMMARY | 2018-01-23 23:45 | XMS REPORT ---
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
--- OUTSIDE RECORDS SUMMARY | 2018-01-23 23:45 | XMS REPORT ---
[...] Start Date End Date Status Dosage [place] [facility] 10134960275 1000 mg orally 2 Active 1 tab(s) times a day Results No Known Results Summary Purpose [employer]ClinicalWorks Submission
--- OUTSIDE RECORDS SUMMARY | 2018-01-23 23:45 | XMS REPORT ---
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
--- OUTSIDE RECORDS SUMMARY | 2018-01-23 23:45 | XMS REPORT ---
:1935 Author Organization [employer]Clinical[employer] Care Team Providers Name Role Phone PHYLLIS WHITT[place] Provider Role Unavailable Allergies, Adverse Reactions, Alerts Substance Reaction Event Type N.K.D.A. 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 Assessment 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 Problem Presence of automatic (implantable) Z95.810 Active cardiac defibrillator Medications Medication Code Code Instructions Start End Status Dosage System Date Date nitroglycerin [facility] 33921593724 0.4 mg Active 1 tab(s) sublingually every 5 minutes baclofen [facility] 91609538586 10 mg orally Active 1 tab(s) bid tamsulosin [facility] 54600429389 0.4 mg orally Active 1 cap(s) once a day ASA [facility] 87452231197 81mg once a Active 1 tab(s) day losartan [facility] 41661872128 50 mg orally Active 1 tab(s) once a day spironolactone [facility] 39039901135 25 mg orally Active 1 tab(s) bid Prilosec [facility] 94832289305 20 mg orally Active 1 cap(s) once a day glimepiride [facility] 23640803637 1 mg orally bid Active 1 tab(s) clopidogrel [facility] 96959454165 75 mg orally Active 1 tab(s) once a day furosemide ND 91003744008 40 mg orally Active 1 tab(s) once a day carvedilol [facility] 77555859337 6.25 orally 2 Active 1 tab(s) times a day Glumetza [facility] 73835714981 500 mg orally Active 1 tab(s) bid isosorbide [facility] 63535653682 30 mg orally Active 1 tab(s) dinitrate every 8 hrs Synthroid [facility] 69774576979 200 mcg (0.2 Active 1 tab(s) mg) orally once a day hydralazine [facility] 35304564803 25 mg orally 4 Active 1 tab(s) times a day [place] [facility] 87015699473 1000 mg orally Active 1 tab(s) 2 times a day omeprazole [facility] 38286105228 20 mg orally Active 1 cap(s) once a day Vital Signs Date/Time: September 03, 2016 Blood Pressure Systolic 136 mm Hg BMI 29.53 Index Height 66 in Blood Pressure Diastolic 60 mm Hg Results No Known Results Summary Purpose [employer]ClinicalWorks Submission
--- OUTSIDE RECORDS SUMMARY | 2018-01-23 23:45 | XMS REPORT ---
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
--- OUTSIDE RECORDS SUMMARY | 2018-01-23 23:45 | XMS REPORT ---
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
--- OUTSIDE RECORDS SUMMARY | 2018-01-23 23:45 | XMS REPORT ---
:1935 Author Organization eClinicalWorks Care Team Providers Name Role Phone PHYLLIS WHITT[place] Provider Role Unavailable Allergies, Adverse Reactions, Alerts Substance Reaction Event Type N.K.D.A. 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 Problem Presence of automatic (implantable) Z95.810 Active cardiac defibrillator Problem Presence of coronary angioplasty Z95.5 Active implant and graft Problem Hyperlipidemia, unspecified E78.5 Active Problem Hypothyroidism, unspecified E03.9 Active Problem 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 Problem 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 Assessment 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 Assessment Hyperlipidemia, unspecified E78.5 Active Assessment 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 Medications Medication Code System Code Instructions Start Date End Date Status Dosage spironolactone NDC 04950 25 mg orally bid Active 1 tab(s) Glumetza NDC 00679 500 mg orally bid Active 1 tab(s) clopidogrel NDC 41617 75 mg orally once Active 1 tab(s) a day Synthroid NDC 2205 200 mcg (0.2 mg) Active 1 tab(s) orally once a day carvedilol NDC 43264 3.125 mg orally 2 Active 2 tab(s) times a day glimepiride NDC 31089 1 mg orally bid Active 1 tab(s) atorvastatin NDC 35381 10 mg orally once Active 1 tab(s) a day (at bedtime) tamsulosin NDC 14981 0.4 mg orally Active 1 cap(s) once a day furosemide NDC 72992 40 mg orally once Active 1 tab(s) a day ASA NDC 0 81mg once a day Active 1 tab(s) Prilosec NDC 363 20 mg orally once Active 1 cap(s) a day [place] NDC 01893 1000 mg orally 2 Active 1 tab(s) times a day nitroglycerin NDC 28291 0.4 mg Active 1 tab(s) sublingually every 5 minutes losartan NDC 69973 50 mg orally once Active 1 tab(s) a day Vital Signs Date/Time: Jun 19, 2016 Blood Pressure Systolic 110 mm Hg BMI 30.66 Index Height 66 in Blood Pressure Diastolic 50 mm Hg Results No Known Results Summary Purpose [employer]ClinicalWorks Submission
--- OUTSIDE RECORDS SUMMARY | 2018-01-23 23:46 | XMS REPORT ---
:1935 Author Organization eClinicalWorks Care Team Providers Name Role Phone CYN [place]Y Provider Role Unavailable Encounters Encounter Location Date Established Patient [facility] Jun 25, 2014 [place] refill [facility] Aug 06, 2014 Unknown [facility] August 18, 2014 chest pain. 10/06 [facility] October 07, 2014 Established Patient [facility] December 17, 2013 Pt [facility] 05/18 [facility] May 18, 2015 STRESS TEST [facility], [facility] December 17, 2013 Established Patient [facility] Mar 19, 2014 Established Patient [facility] May 12, 2015 Established Patient [facility] Jan 18, 2015 possible heart attack [facility] May 11, 2015 Problems Problem Type Condition ICD-9 Code Onset Dates Condition Status Problem 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
--- OUTSIDE RECORDS SUMMARY | 2018-01-23 23:46 | XMS REPORT ---
:1935 Author Organization [employer]ClinicalWorks Care Team Providers Name Role Phone CYN [place] Provider Role Unavailable Allergies, Adverse Reactions, Alerts Substance Reaction Event Type N.K.D.A. Info Not Available Non Drug Allergy Encounters Encounter Location Date Established Patient [facility], [facility] December 17, 2013 STRESS TEST [facility], [facility] December 17, 2013 Established Patient [facility] Mar 19, 2014 Problems Problem Type Condition ICD-9 Code Onset Dates Condition Status Assessment 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 Active [place] vessel Problem Diabetes mellitus type II 250.00 Active Problem Hypertension Heart Disease - w/o 402.10 Active CHF* Problem 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 Problem Chronic systolic heart failure 428.22 Active Problem S/P Automatic Defibrillator V45.02 Active Problem 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 Active [place] vessel Problem 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 Problem Hypercholesterolemia NOS 272.4 Active Problem Hypothyroidism (acquired) 244.9 Active Assessment Hypertension Heart Disease - w/o 402.10 Active CHF* Assessment S/P Automatic Defibrillator V45.02 Active Assessment Chronic systolic heart failure 428.22 Active Assessment 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 Medications Medication Code System Code Instructions Start End Date Status Dosage Date levothyroxine MULTUM 24302 200 mcg orally Active 1 cap(s) once a day nitroglycerin MULTUM 30709 0.4 mg November 26, Active 1 tab(s) sublingually every 2013 5 minutes gemfibrozil MULTUM 82983 600 mg orally 2 Active 1 tab(s) times a day omeprazole MULTUM 00500 20 mg orally once Active 1 tab(s) a day losartan MULTUM 49899 50 mg orally once Active 1 tab(s) a day Crestor MULTUM 26320 10 mg orally once Jan 27, Active 1 tab(s) a day (at bedtime) 2012 spironolactone MULTUM 07299 25 mg orally 3 Active 1 tab(s) times a day tamsulosin MULTUM 85207 0.4 mg orally bid Active 1 cap(s) ASA Unknown 0 81mg once a day Active 1 tab(s) Lantus MULTUM 03855 100 units/mL Active 34 units at subcutaneously bedtime furosemide MULTUM 55627 20 mg orally once Active 3 tsa a day [place] MULTUM 46085 1000 mg orally 2 Active 1 tab(s) [...]
--- OUTSIDE RECORDS SUMMARY | 2018-01-23 23:46 | XMS REPORT ---
:1935 Author Organization eClinicalWorks Care Team Providers Name Role Phone PHYLLIS [place] Provider Role Unavailable Encounters Encounter Location Date Established Patient [facility], [facility] December 17, 2013 STRESS TEST [facility] December 17, 2013 Established Patient [facility] Mar 19, 2014 Problems Problem Type Condition ICD-9 Code Onset Dates Condition Status Assessment 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 Active [place] vessel Problem Diabetes mellitus type II 250.00 Active Problem Hypertension Heart Disease - w/o 402.10 Active CHF* Problem 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 Problem Chronic systolic heart failure 428.22 Active Problem S/P Automatic Defibrillator V45.02 Active Problem 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 Active [place] vessel Problem 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 Problem Hypercholesterolemia NOS 272.4 Active Problem Hypothyroidism (acquired) 244.9 Active Medications Medication Code System Code Instructions Start End Date Status Dosage Date Humalog MULTUM 6127 100 units/mL Active 12 units subcutaneously before meals levothyroxine MULTUM 37072 200 mcg orally Active 1 cap(s) once a day [place] MULTUM 43225 1000 mg orally 2 Active 1 tab(s) times a day nitroglycerin MULTUM 79869 0.4 mg/hr Active 1 PATCH transdermally prn nitroglycerin MULTUM 22263 0.4 mg November 26, Active 1 tab(s) sublingually every 2013 5 minutes losartan MULTUM 36329 50 mg orally once Active 1 tab(s) a day omeprazole M[facility]UM 45435 20 mg orally once Active 1 tab(s) a day Crestor MULTUM 34118 10 mg orally once Jan 27, Active 1 tab(s) a day (at bedtime) 2012 ASA Unknown 0 81mg once a day Active 1 tab(s) tamsulosin MULTUM 35129 0.4 mg orally once Active 1 cap(s) a day Coreg MULTUM 28398 12.5 mg orally 2 Active 1/2 tab times a day spironolactone MULTUM 87972 25 mg orally 3 Active 1 tab(s) times a day Lantus MULTUM 23324 100 units/mL Active 34 units at subcutaneously bedtime gemfibrozil MULTUM 81557 600 mg orally 2 Active 1 tab(s) times a day furosemide MULTUM 72585 20 mg orally once Active 2 tabs a day Social History Social History Element Qualifiers Date Reported Caffeine: yes. 2 cups of coffee a day Mar 19, 2014 Tobacco Use: . Status: Former Smoker quit 22 yrs ago Mar 19, 2014 Alcohol: no. Mar 19, 2014 Summary Purpose eClinicalWorks Submission
--- OUTSIDE RECORDS SUMMARY | 2018-01-23 23:46 | XMS REPORT ---
:1935 Author Organization eClinicalWorks Care Team Providers Name Role Phone WH[place]CY[place] Provider Role Unavailable Allergies, Adverse Reactions, Alerts Substance Reaction Event Type N.K.D.A. Info Not Available Non Drug Allergy Encounters Encounter Location Date Established Patient [facility], [facility] December 17, 2013 STRESS TEST [facility], [facility] December 17, 2013 Established Patient [facility] Mar 19, 2014 Problems Problem Type Condition ICD-9 Code Onset Dates Condition Status Assessment 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 Active [place] vessel Problem Diabetes mellitus type II 250.00 Active Problem Hypertension Heart Disease - w/o 402.10 Active CHF* Problem 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 Problem Chronic systolic heart failure 428.22 Active Problem S/P Automatic Defibrillator V45.02 Active Problem 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 Active [place] vessel Problem 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 Problem Hypercholesterolemia NOS 272.4 Active Problem Hypothyroidism (acquired) 244.9 Active Assessment S/P Automatic Defibrillator V45.02 Active Assessment Chronic systolic heart failure 428.22 Active Assessment 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 Medications Medication Code System Code Instructions Start End Date Status Dosage Date Humalog MULTUM 6127 100 units/mL Active 12 units subcutaneously before meals spironolactone MULTUM 58186 25 mg orally 3 Active 1 tab(s) times a day Lantus MULTUM 81014 100 units/mL Active 34 units at subcutaneously bedtime omeprazole MULTUM 43492 20 mg orally once Active 1 tab(s) a day levothyroxine MULTUM 67855 112 mcg orally Active 2 caps once a day Crestor MULTUM 38017 10 mg orally once Jan 27, Active 1 tab(s) a day (at bedtime) 2012 Lyrica MULTUM 02411 50 mg orally 2 Active 1 cap(s) times a day ASA Unknown 0 81mg once a day Active 1 tab(s) furosemide MULTUM 53387 20 mg orally tid Active 3 tsa tamsulosin MULTUM 31456 0.4 mg orally bid Active 1 cap(s) nitroglycerin MULTUM 00869 0.4 mg November 26 1 tab(s) sublingually every 2013 5 minutes losartan MULTUM 88085 50 mg orally once Active 1 tab(s) a day [place] MULTUM 87907 1000 mg orally 2 Active 1 tab(s) times a day gemfibrozil MULTUM 66838 600 mg orally 2 Active 1 tab(s) [...]
--- OUTSIDE RECORDS SUMMARY | 2018-01-23 23:46 | XMS REPORT ---
:1935 Author Organization eClinicalWorks Care Team Providers Name Role Phone PHYLLIS WHITTINGTON Provider Role Unavailable Encounters Encounter Location Date Established Patient [facility], [facility] Jun 25, 2014 [place] refill [facility], [facility] Aug 06, 2014 Unknown [facility], [facility] August 18, 2014 chest pain. 10/06 [facility], [facility] October 07, 2014 Established Patient [facility], [facility] December 17, 2013 STRESS TEST [facility], [facility] December 17, 2013 Established Patient [facility], [facility] Mar 19, 2014 Established Patient [facility], [facility] May 12, 2015 Established Patient [facility], [facility] Jan 18, 2015 possible heart attack [facility], [facility] May 11, 2015 Problems Problem Type Condition ICD-9 Code Onset Dates Condition Status Problem 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
--- OUTSIDE RECORDS SUMMARY | 2018-01-23 23:46 | XMS REPORT ---
:1935 Author Organization eClinicalWorks Care Team Providers Name Role Phone PHYLLIS [place] Provider Role Unavailable Encounters Encounter Location Date Established Patient [facility] Jun 25, 2014 [place] [facility] Aug 06, 2014 Unknown [facility] August 18, 2014 chest pain. 10/06 [facility] October 07, 2014 Established Patient [facility], [facility] December 17, 2013 STRESS TEST [facility], [facility] December 17, 2013 Established Patient [facility] Mar 19, 2014 Established Patient [facility] May 12, 2015 Established Patient [facility] Jan 18, 2015 possible heart attack [facility] May 11, 2015 chest pain [facility] December 28, 2015 Pt in [facility] 05/18 [facility] May 18, 2015 [place] [facility] [facility] October 19, 2015 Problems Problem Type Condition ICD-9 Code Onset Dates Condition Status Problem Presence 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 Problem 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
--- OUTSIDE RECORDS SUMMARY | 2018-01-23 23:46 | XMS REPORT ---
:1935 Author Organization eClinicalWorks Care Team Providers Name Role Phone PHYLLIS [place] Provider Role Unavailable Allergies, Adverse Reactions, Alerts Substance Reaction Event Type N.K.D.A. 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 Assessment 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 Problem Presence of automatic (implantable) Z95.810 Active cardiac defibrillator Medications Medication Code Code Instructions Start End Status Dosage System Date Date losartan [facility] 85170368847 50 mg orally Active 1 tab(s) once a day clopidogrel [facility] 75565571839 75 mg orally Active 1 tab(s) once a day nitroglycerin [facility] 49699141346 0.4 mg Active 1 tab(s) sublingually every 5 minutes baclofen [facility] 96506734178 10 mg orally Active 1 tab(s) bid glimepiride [facility] 20015552944 1 mg orally Active 1 tab(s) once aday spironolactone [facility] 12326049275 25 mg orally Active 1 tab(s) bid furosemide [facility] 08832182779 40 mg orally Active 1 tab(s) once a day Glumetza [facility] 62132828808 500 mg orally Active 1 tab(s) bid carvedilol [facility] 90403054216 6.25 orally 2 Active 1 tab(s) times a day [place] [facility] 02093773247 1000 mg orally Active 1 tab(s) 2 times a day omeprazole [facility] 42035677964 20 mg orally Active 1 cap(s) once a day Prilosec [facility] 70071897740 20 mg orally Active 1 cap(s) once a day Synthroid [facility] 46793030676 200 mcg (0.2 Active 1 tab(s) mg) orally once a day hydralazine [facility] 39920737384 25 mg orally 4 Active 1 tab(s) times a day Lasix [facility] 02026222683 40 mg orally Ricarda Active 1 tab(s) once a day 2016 ASA [facility] 27662649319 81mg once a Active 1 tab(s) day tamsulosin [facility] 48442592025 0.4 mg orally Active 1 cap(s) once a day isosorbide [facility] 42753343496 30 mg orally Active 1 tab(s) dinitrate every 8 hrs Vital Signs Date/Time: September 25, 2016 Blood Pressure Systolic 122 mm Hg BMI 30.02 Index Height 66 in Blood Pressure Diastolic 50 mm Hg Results No Known Results Summary Purpose eClinicalWorks Submission
--- OUTSIDE RECORDS SUMMARY | 2018-01-23 23:46 | XMS REPORT ---
:1935 Author Organization eClinicalWorks Care Team Providers Name Role Phone YONAS AGUIRRE Provider Role Unavailable Allergies, Adverse Reactions, Alerts Substance Reaction Event Type N.K.D.A. Info Not Available Non Drug Allergy Encounters Encounter Location Date Established Patient [facility], [facility] Jun 25, 2014 [place] [facility] Aug 06, 2014 Unknown [facility], [facility] August 18, 2014 chest pain. 10/06 [facility], [facility] October 07, 2014 Established Patient [facility], [facility] December 17, 2013 STRESS TEST [facility], [facility] December 17, 2013 Established Patient [facility], [facility] Mar 19, 2014 Established Patient [facility], [facility] May 12, 2015 Established Patient [facility], [facility] Jan 18, 2015 possible heart attack [facility], [facility] May 11, 2015 Problems Problem Type Condition ICD-9 Code Onset Dates Condition Status Assessment Presence 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 Assessment 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 Assessment Hyperlipidemia, unspecified E78.5 Active Assessment 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 Problem 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 Problem 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 Problem Presence 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 Problem Hypothyroidism, unspecified E03.9 Active Assessment 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 Problem 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 Problem Hyperlipidemia, unspecified E78.5 Active Medications Medication Code System Code Instructions Start End Date Status Dosage Date nitroglycerin MULTUM 89155 0.4 mg November 26, Active 1 tab(s) sublingually every 2013 5 minutes omeprazole [facility] 28789 20 mg orally once Active 1 tab(s) a day tamsulosin [facility] 98042 0.4 mg orally bid Active 1 cap(s) spironolactone [facility] 48272 25 mg orally 3 Active 1 tab(s) times a day levothyroxine [facility] 50807 112 mcg orally Active 2 caps once a day carvedilol [facility] 04908 12.5 mg orally 2 Active 1 tab(s) times a day furosemide [facility] 64218 40 mg orally once Jun 26, Active 1 tab(s) a day 2014 Crestor M[facility] 68846 10 mg orally once Jan 27, Active 1 tab(s) a day (at bedtime) 2012 [place] MULTUM 92062 1000 mg orally 2 Active 1 tab(s) times a day gemfibrozil MULT[facility] 32117 600 mg orally 2 Active 1 tab(s) times a day losartan [facility] 86739 50 mg orally once Active 1 tab(s) a day Lantus M[facility] 73405 100 units/mL Active 34 units at subcutaneously [...]
--- OUTSIDE RECORDS SUMMARY | 2018-01-23 23:46 | XMS REPORT ---
:1935 Author Organization eClinicalWorks Care Team Providers Name Role Phone CYN [place] Provider Role Unavailable Encounters Encounter Location Date Established Patient [facility], [facility] Jun 25, 2014 [place] [facility], [facility] Aug 06, 2014 Unknown [facility], [facility] August 18, 2014 chest pain. 10/06 [facility] October 07, 2014 Established Patient [facility], [facility] December 17, 2013 Pt in [facility] 05/18 [facility] May 18, 2015 STRESS TEST [facility], [facility] December 17, 2013 [place] [facility] [facility] October 19, 2015 Established Patient [facility], [facility] Mar 19, 2014 Established Patient [facility], [facility] May 12, 2015 Established Patient [facility], [facility] Jan 18, 2015 possible heart attack [facility], 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
--- OUTSIDE RECORDS SUMMARY | 2018-01-23 23:46 | XMS REPORT ---
:1935 Author Organization eClinicalWorks Care Team Providers Name Role Phone [place] PHYLLIS Provider Role Unavailable Allergies, Adverse Reactions, Alerts Substance Reaction Event Type N.K.D.A. Info Not Available Non Drug Allergy Encounters Encounter Location Date Established Patient [facility], [facility] Jun 25, 2014 Established Patient [facility], [facility] December 17, 2013 STRESS TEST [facility], [facility] December 17, 2013 Established Patient [facility], [facility] Mar 19, 2014 Problems Problem Type Condition ICD-9 Code Onset Dates Condition Status Assessment 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 Active [place] vessel Problem Diabetes mellitus type II 250.00 Active Problem Hypertension Heart Disease - w/o 402.10 Active CHF* Problem 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 Problem Chronic systolic heart failure 428.22 Active Problem S/P Automatic Defibrillator V45.02 Active Problem 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 Active [place] vessel Problem 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 Problem Hypercholesterolemia NOS 272.4 Active Problem Hypothyroidism (acquired) 244.9 Active Assessment S/P Automatic Defibrillator V45.02 Active Assessment Chronic systolic heart failure 428.22 Active Assessment 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 Medications Medication Code System Code Instructions Start End Date Status Dosage Date losartan M[facility] 13799 50 mg orally once Active 1 tab(s) a day nitroglycerin [facility] 63389 0.4 mg November 26, Active 1 tab(s) sublingually every 2013 5 minutes Lantus [facility] 62510 100 units/mL Active 34 units at subcutaneously bedtime Crestor [facility] 75689 10 mg orally once Jan 27, Active 1 tab(s) a day (at bedtime) 2012 levothyroxine MULTUM 28405 112 mcg orally Active 2 caps once a day spironolactone [facility] 32391 25 mg orally 3 Active 1 tab(s) times a day carvedilol [facility] 40444 12.5 mg orally 2 Active 1 tab(s) times a day tamsulosin [facility] 87762 0.4 mg orally bid Active 1 cap(s) gemfibrozil M[facility]UM 22859 600 mg orally 2 Active 1 tab(s) times a day ASA Unknown 0 81mg once a day Active 1 tab(s) omeprazole [facility] 86758 20 mg orally once Active 1 tab(s) a day furosemide [facility] 81649 40 mg orally once Jun 26, Active 1 tab(s) a day 2014 [place] MULTUM 99538 1000 mg orally 2 Active 1 tab(s) [...]
--- OUTSIDE RECORDS SUMMARY | 2018-01-23 23:46 | XMS REPORT ---
:1935 Author Organization eClinicalWorks Care Team Providers Name Role Hugh [place] Provider Role Unavailable Allergies, Adverse Reactions, Alerts Substance Reaction Event Type N.K.D.A. Info Not Available Non Drug Allergy Encounters Encounter Location Date Established Patient [facility], [facility] Jun 25, 2014 [place] [facility], [facility] Aug 06, 2014 Unknown [facility], [facility] August 18, 2014 chest pain. 10/06 [facility], [facility] October 07, 2014 Established Patient [facility], [facility] December 17, 2013 STRESS TEST [facility], [facility] December 17, 2013 Established Patient [facility], [facility] Mar 19, 2014 Established Patient [facility], [facility] May 12, 2015 Established Patient [facility], [facility] Jan 18, 2015 possible heart attack [facility], [facility] May 11, 2015 chest pain [facility], [facility] December 28, 2015 Established Patient [facility], [facility] Apr 10, 2016 Pt in [facility] 05/18 [facility], [facility] May 18, 2015 [place] [facility] [facility], [facility] October 19, 2015 Problems Problem Type Condition ICD-9 Code Onset Dates Condition Status Assessment Presence 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 Assessment 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 Assessment Presence of coronary angioplasty Z95.5 Active implant and graft Problem 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 Problem Presence 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 Problem Presence of coronary angioplasty Z95.5 Active implant and graft Problem Hyperlipidemia, unspecified E78.5 Active Problem Hypothyroidism, unspecified E03.9 Active Problem 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 Problem 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 Assessment 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 Assessment Hyperlipidemia, unspecified E78.5 Active Assessment 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 Medications Medication Code System Code Instructions Start Date End Date Status Dosage carvedilol [facility]UM 71897 3.125 orally 2 Active 2 tab(s) times a day tamsulosin [facility] 85579 0.4 mg orally Active 1 cap(s) once a day nitroglycerin [facility] 76871 0.4 mg Active 1 tab(s) sublingually every 5 minutes losartan [facility] 76994 50 mg orally once Active 1 tab(s) a day Glumetza MULTUM 28013 500 mg orally 2 Active 1 tab(s) times a day ASA Unknown 0 81mg once a day Active 1 tab(s) clopidogrel MULTUM 25753 75 mg orally once Active 1 tab(s) a day Prilosec MULTUM 363 20 mg orally once Active 1 cap(s) a day Synthroid MULTUM 2205 200 mcg (0.2 mg) Active 1 tab(s) orally once a day spironolactone MULTUM 31064 25 mg orally 3 Active 1 tab(s) times a day furosemide MULTUM 00837 40 mg orally once Active 1 tab(s) a day atorvastatin [facility]UM 59654 10 mg orally once Active 1 tab(s) a day (at bedtime) glimepiride MULTUM 35590 1 mg orally bid Active 1 tab(s) [place] MULTUM 35920 1000 mg orally 2 Active 1 tab(s) [...]
--- OUTSIDE RECORDS SUMMARY | 2018-01-23 23:47 | XMS REPORT ---
:1935 [facility] [address] [place] [address] Care Team Providers Name Role Phone KARI DUNCAN Unavailable Unavailable Problems This patient has no known problems. Allergies, Adverse Reactions, Alerts This patient has no known allergies or adverse reactions. Medications This patient has no known medications. Results Test Description Test Time Test Comments Text Results Atomic Results Result Comments PROTHROMBIN TIME/INR 2017-12-20 07:35:00 Test Item Value Reference Range Comments PROTIME (BEAKER) (test xpxs=279) 15.1 seconds 11.7-14.7 INR (BEAKER) (test tfnc=341) 1.2 <=5.9 RECOMMENDED COUMADIN/WARFARIN INR THERAPY RANGESSTANDARD DOSE: 2.0 - 3.0 Includes: PROPHYLAXIS forvenous thrombosis, systemic embolization; TREATMENT for venous thrombosis and/or pulmonary embolus.HIGH RISK: Target INR is 2.5-3.5 for patients with mechanical heart valves.BASIC METABOLIC [id number] 07:33: 00 Test Item Value Reference Range Comments SODIUM (BEAKER) (test 142 meq/L 136-145 czuu=893) POTASSIUM (BEAKER) (test 4.1 meq/L 3.5-5.1 ppsb=876) CHLORIDE (BEAKER) (test 105 meq/L 98-107 cezh=722) CO2 (BEAKER) (test 28 meq/L 22-29 auyp=240) BLOOD UREA NITROGEN 30 mg/dL 7-21 (BEAKER) (test tebv=535) CREATININE (BEAKER) (test 1.90 mg/dL 0.57-1.25 aoch=954) GLUCOSE RANDOM (BEAKER) 118 mg/dL 70-105 (test xgmz=476) CALCIUM (BEAKER) (test 9.1 mg/dL 8.4-10.2 coah=515) EGFR (BEAKER) (test 34 mL/min/1.73 sq m ESTIMATED GFR IS NOT ieca=4200) ACCURATE CREATININE CLEARANCE IN PREDICTING GLOMERULAR FILTRATION RATE. ESTIMATED GFR IS NOT APPLICABLE FOR DIALYSIS PATIENTS. CBC W/PLT COUNT & AUTO [id number] 07:16:00 Test Item Value Reference Range Comments WHITE BLOOD CELL COUNT (BEAKER) (test afto=284) 4.6 K/ L 3.5-10.5 RED BLOOD CELL COUNT (BEAKER) (test tntm=876) 3.33 M/ L 4.63-6.08 HEMOGLOBIN (BEAKER) (test afri=764) 10.1 GM/DL 13.7-17.5 HEMATOCRIT (BEAKER) (test cpdh=883) 31.9 % 40.1-51.0 MEAN CORPUSCULAR VOLUME (BEAKER) (test farb=900) 95.8 fL 79.0-92.2 MEAN CORPUSCULAR HEMOGLOBIN (BEAKER) (test 30.3 pg 25.7-32.2 tlqi=741) MEAN CORPUSCULAR HEMOGLOBIN CONC (BEAKER) (test 31.7 GM/DL 32.3-36.5 wlep=910) RED CELL DISTRIBUTION WIDTH (BEAKER) (test 17.4 % 11.6-14.4 fhyq=347) PLATELET COUNT (BEAKER) (test rqgc=715) 99 K/CU MM 150-450 MEAN PLATELET VOLUME (BEAKER) (test ivxr=502) 11.0 fL 9.4-12.4 NUCLEATED RED BLOOD CELLS (BEAKER) (test 0 /100 WBC 0-0 ivfb=023) NEUTROPHILS RELATIVE PERCENT (BEAKER) (test 68 % enth=182) LYMPHOCYTES RELATIVE PERCENT (BEAKER) (test 20 % bbst=704) MONOCYTES RELATIVE PERCENT (BEAKER) (test 9 % xkxg=964) EOSINOPHILS RELATIVE PERCENT (BEAKER) (test 2 % hnzm=558) BASOPHILS RELATIVE PERCENT (BEAKER) (test 0 % eztr=311) NEUTROPHILS ABSOLUTE COUNT (BEAKER) (test 3.12 K/ L 1.78-5.38 rrfm=177) LYMPHOCYTES ABSOLUTE COUNT (BEAKER) (test 0.93 K/ L 1.32-3.57 tvsh=080) MONOCYTES ABSOLUTE COUNT (BEAKER) (test ledt=586) 0.40 K/ L 0.30-0.82 EOSINOPHILS ABSOLUTE COUNT (BEAKER) (test 0.09 K/ L 0.04-0.54 lfmz=424) BASOPHILS ABSOLUTE COUNT (BEAKER) (test koqj=901) 0.01 K/ L 0.01-0.08 IMMATURE GRANULOCYTES-RELATIVE PERCENT (BEAKER) 0 % 0-1 (test lzyi=3241)
[2018-01-24 00:17] LABS: Absolute Monocytes 0.5 K/uL (0.1-1.3); Absolute Neutrophil 5.2 K/uL (1.8-8.0); Basophils % 0.3 % (0-1.3); Eosinophils % 1.1 % (0-4.4); Hematocrit 34.3 % (39.6-49.0); Lymphocytes % 14.8 % (15.3-44.8); MCH 31.5 pg (27.0-35.0); MCV 95.2 fL (80-100); MPV 9.7 fL (7.6-11.3); Monocytes % 6.8 % (3.3-12.3)
[2018-01-24] MEDS ORDERED: NA CHLORIDE 0.9% 1,000 ML ONE (00:17)
[2018-01-24 00:24] LABS: Protime INR 1.11
[2018-01-24] MEDS ORDERED: FUROSEMIDE 40 MG/4 ML VIAL ONE (00:29)
[2018-01-24 00:36] LABS: Albumin 3.8 g/dL (3.4-5.0); Bilirubin Direct 0.3 mg/dL (0-0.2); Bilirubin Total 0.9 mg/dL (0.2-1.0); CKMB Creatine Kinase MB 2.7 ng/mL (0.3-3.6); Magnesium 2.4 mg/dL (1.8-2.4); Potassium 3.9 mmol/L (3.5-5.1)
[2018-01-24 01:11] LABS: Thyroid Stimulating Hormone 49.1 uIU/mL (0.36-3.74)
[2018-01-24 01:12] LABS: Urine Blood 1+ (NEG); Urine Glucose NEGATIVE (NEG); Urine Protein 1+ (NEG)
--- NOTE | 2018-01-24 01:17 | ER ---
Nurse's Notes [facility] Name: Blayne Ashford Age: 82 yrs Sex: Male : 1935 Arrival Date: 01/23/2018 Time: 23:30 Bed 5 Private MD: Nissa Seay Diagnosis: Dyspnea;Atrial fibrillation and flutter;Cardiomegaly;Unspecified kidney failure;Hypothyroidism, unspecified Presentation: 01/23 23:51 Presenting complaint: Received report from [facility] at 2145 of transfer of patient lp1 for shortness of breath; [facility] reports vitals of 138/74, HR 110, RR 20, O2 86% RA, Temp 97.4 on patient's information packet; [facility] Nurse states putting patient on 3L NC; Patient arrival here at this time by non-medical transfer service with no O2 administration; Patient states feeling short of breath for a couple weeks; Denies fever, cough, pain. Transition of care: patient was not received from another setting of care. Onset of symptoms was January 23, 2018. Risk Assessment: Do you want to hurt yourself or someone else? Patient reports no desire to harm self or others. Initial Sepsis Screen: Does the patient meet any 2 criteria? No. Patient's initial sepsis screen is negative. Does the patient have a suspected source of infection? No. Patient's initial sepsis screen is negative. Care prior to arrival: None. 23:51 Method Of Arrival: Wheelchair lp1 23:51 Acuity: LASHANDA 3 lp1 Historical: - Allergies: 01/24 00:02 No Known Allergies; lp1 - Home Meds: 00:02 atorvastatin 40 mg Oral tab 2 tabs nightly [Active]; clopidogrel 75 mg Oral tab once lp1 daily [Active]; exelon patch daily [Active]; glimepiride 2 mg Oral tab once daily [Active]; isosorbide dinitrate 20 mg Oral tab 2 times per day [Active]; Januvia 50 mg Oral tab once daily [Active]; lactulose 10 gram/15 mL Oral soln 30 mL nightly [Active]; Lasix 40 mg Oral tab 2 times per day [Active]; levothyroxine 100 mcg tab 2 tabs once daily [Active]; losartan 25 mg Oral tab once daily [Active]; metoprolol succinate 25 mg Oral Tb24 twice a day [Active]; omeprazole 20 mg Oral TbEC daily [Active]; Ranexa 1,000 mg Oral Tb12 2 times per day [Active]; Risperdal 0.25 mg Oral tab daily [Active]; Risperdal 0.5 mg Oral tab nightly [Active]; spironolactone 25 mg Oral tab once daily [Active]; tamsulosin 0.4 mg Oral cp24 once daily [Active]; - PMHx: 00:02 angina pectoris; Anxiety; Atrial Fib; BPH; CAD; COPD; Dementia; Diabetes - NIDDM; HEART lp1 FAILURE; Hematuria; Hyperlipidemia; Hypertension; Hypothyroidism; MUSCLE WEAKNESS; Pacemaker; Pneumonia; Myocardial infarction; CHF; - PSHx: 00:02 Heart stents; CABG; Hernia repair; lp1 - Immunization history:: Adult Immunizations up to date. - Social history:: Smoking status: Patient/guardian denies using tobacco. - Ebola Screening: : No symptoms or risks identified at this time. - Family history:: not pertinent. Screenin/16 23:58 Abuse screen: Denies threats or abuse. Denies injuries from another. Nutritional lp1 screening: No deficits noted. Tuberculosis screening: No symptoms or risk factors identified. Fall Risk None identified. Assessment: 23:58 General: Appears in no apparent distress. Behavior is calm, cooperative. Pain: Denies lp1 pain. Neuro: Level of Consciousness is awake, alert, obeys commands, Oriented to person, place, situation. Cardiovascular: Patient's skin is warm and dry. Respiratory: Reports shortness of breath Respiratory effort is even, unlabored, Respiratory pattern is regular, Breath sounds are clear bilaterally. Denies cough. GI: Abdomen is non-distended. : No signs and/or symptoms were reported regarding the genitourinary system. EENT: No signs and/or symptoms were reported regarding the EENT system. Derm: Skin is pink, warm \T\ dry. Musculoskeletal: Circulation, motion, and sensation intact. 01/24 00:46 Reassessment: Patient appears in no apparent distress at this time. Patient and/or aa1 family updated on plan of care and expected duration. Pain level reassessed. Awaiting lab results Patient denies pain at this time. Neuro: Level of Consciousness is awake, alert, obeys commands, Oriented to person, place, situation. Respiratory: Respiratory effort is even, unlabored. Derm: Skin is pink, warm \T\ dry. 01:30 Reassessment: Patient appears in no apparent distress at this time. No changes from aa1 previously documented assessment. Patient and/or family updated on plan of care and expected duration. Pain level reassessed. Awaiting admission to floor. 02:33 Reassessment: Patient appears in no apparent distress at this time. No changes from aa1 previously documented assessment. Report given to Heidy on 4th floor. Vital Signs: 01/23 23:56 BP 145 / 76; Pulse 67; Resp 18; Temp 97.9(O); Pulse Ox 100% on R/A; Weight 79.38 kg; lp1 Height 5 ft. 7 in. (170.18 cm); Pain 0/10; 01/24 00:46 BP 135 / 69; Pulse 62; Resp 20; Pulse Ox 97% on R/A; Pain 0/10; aa1 01:51 BP 132 / 63; Pulse 61; Resp 18; Pulse Ox 99% on R/A; Pain 0/10; aa1 02:33 BP 122 / 59; Pulse 60; Resp 18; Pulse Ox 95% on R/A; Pain 0/10; aa1 01/23 23:56 Body Mass Index 27.41 (79.38 kg, 170.18 cm) lp1 ED Course: 01/23 23:30 Patient arrived in ED. ds1 23:30 Nissa Seay is Private Physician. ds1 23:45 Ramsey Martínez MD is Attending Physician. [facility] 23:56 Triage completed. lp1 23:56 Arm band placed on left wrist. lp1 23:59 Patient has correct armband on for positive identification. Placed in gown. Bed in low lp1 position. Call light in reach. Side rails up X2. manager monitoring on. Pulse ox on. NIBP on. 01/24 00:00 X-ray completed. Portable x-ray completed in exam room. Patient tolerated procedure kw well. 00:02 XRAY Chest (1 view) In Process Unspecified. EDMS 00:04 Patient maintains SpO2 saturation greater than 95% on room air. lp1 00:05 Initial lab(s) drawn, by me, sent to lab. EKG done, by ED staff, reviewed by Ramsey Martínez MD. Inserted saline lock: 20 gauge in right forearm, using aseptic technique. Blood collected. 00:20 Catherine Kerr, CARLEY is Primary Nurse. aa1 00:46 Urine collected: clean catch specimen, leonie colored. aa1 01:14 Omid Montiel MD is Hospitalizing Provider. lloyd 01:51 No provider procedures requiring assistance completed. Patient admitted, IV remains in aa1 place. Administered Medications: 00:14 CANCELLED (Duplicate Order): NS 0.9% 1000 ml IV at 75 ml/hr continuous lloyd 00:45 Drug: Lasix 40 mg Route: IVP; Site: right antecubital; aa1 01:43 Follow up: Response: No adverse reaction; No change in condition aa1 01:25 Drug: Aspirin 81 mg Route: PO; aa1 02:45 Follow up: Response: No adverse reaction aa1 01:25 Drug: Lovenox 1 mg/kg Route: Sub-Q; Site: left lower abdomen; aa1 02:44 Follow up: Response: No adverse reaction aa1 Outcome: 01:16 Decision to Hospitalize by Provider. lloyd 02:45 Admitted to Tele accompanied by [facility], via wheelchair, room 411, with chart, Report aa1 called to Heidy 02:45 Condition: stable 02:45 Instructed on the need for admit, Demonstrated understanding of instructions. 02:46 Patient left the ED. aa1 Signatures: Dispatcher [employer] EDMS Catherine Kerr, RN RN aa1 Ramsey Martínez MD MD cha Sanford, Amada ds1 Jelena Boyd Laura, RN RN lp1 Corrections: (The following items were deleted from the chart) 00:04 08/16 23:51 Presenting complaint: Received report from [facility] at 2145 of lp1 transfer of patient for shortness of breath with vitals of 138/74, HR 110, RR 20, O2 86% RA, Temp 97.4; Nurse states putting patient on 3L NC; Patient arrival here at this time by non-medical transfer service with no O2 administration; Patient states feeling short of breath for a couple weeks; Denies fever, cough, pain lp1
--- NOTE | 2018-01-24 01:17 | EDPHYS ---
Physician Documentation [facility] Name: Blayne Ashford Age: 82 yrs Sex: Male : 1935 Arrival Date: 01/23/2018 Time: 23:30 Bed 5 Private MD: Nissa Seay ED Physician Ramsey Martínez HPI: 01/24 00:15 This 82 yrs old Male presents to ER via Wheelchair with complaints of lloyd Shortness Of Breath. 00:15 The patient has shortness of breath at rest, with light activity. Onset: The lloyd symptoms/episode began/occurred 2 day(s) ago. Duration: The symptoms are continuous, and are steadily getting worse. The patient's shortness of breath has no apparent modifying factors. The patient or guardian reports chest pain that is located primarily in the substernal area. Onset: 2 day(s) ago. The pain does not radiate. Associated signs and symptoms: The patient has no apparent associated signs or symptoms. Associated signs and symptoms: Pertinent positives: non-productive cough. Severity of symptoms: At their worst the symptoms were mild moderate in the emergency department the symptoms have improved mildly. Historical: - Allergies: 00:02 No Known Allergies; lp1 - Home Meds: 00:02 atorvastatin 40 mg Oral tab 2 tabs nightly [Active]; clopidogrel 75 mg Oral tab once lp1 daily [Active]; exelon patch daily [Active]; glimepiride 2 mg Oral tab once daily [Active]; isosorbide dinitrate 20 mg Oral tab 2 times per day [Active]; Januvia 50 mg Oral tab once daily [Active]; lactulose 10 gram/15 mL Oral soln 30 mL nightly [Active]; Lasix 40 mg Oral tab 2 times per day [Active]; levothyroxine 100 mcg tab 2 tabs once daily [Active]; losartan 25 mg Oral tab once daily [Active]; metoprolol succinate 25 mg Oral Tb24 twice a day [Active]; omeprazole 20 mg Oral TbEC daily [Active]; Ranexa 1,000 mg Oral Tb12 2 times per day [Active]; Risperdal 0.25 mg Oral tab daily [Active]; Risperdal 0.5 mg Oral tab nightly [Active]; spironolactone 25 mg Oral tab once daily [Active]; tamsulosin 0.4 mg Oral cp24 once daily [Active]; - PMHx: 00:02 angina pectoris; Anxiety; Atrial Fib; BPH; CAD; COPD; Dementia; Diabetes - NIDDM; HEART lp1 FAILURE; Hematuria; Hyperlipidemia; Hypertension; Hypothyroidism; MUSCLE WEAKNESS; Pacemaker; Pneumonia; Myocardial infarction; CHF; - PSHx: 00:02 Heart stents; CABG; Hernia repair; lp1 - Immunization history:: Adult Immunizations up to date. - Social history:: Smoking status: Patient/guardian denies using tobacco. - Ebola Screening: : No symptoms or risks identified at this time. - Family history:: not pertinent. ROS: 00:15 Constitutional: Negative for fever, chills, and weight loss, Eyes: Negative for injury, lloyd pain, redness, and discharge, ENT: Negative for injury, pain, and discharge, Neck: Negative for injury, pain, and swelling, Cardiovascular: Negative for chest pain, palpitations, and edema, Abdomen/GI: Negative for abdominal pain, nausea, vomiting, diarrhea, and constipation, Back: Negative for injury and pain, : Negative for injury, bleeding, discharge, and swelling, MS/Extremity: Negative for injury and deformity, Skin: Negative for injury, rash, and discoloration, Neuro: Negative for headache, weakness, numbness, tingling, and seizure, Psych: Negative for depression, anxiety, suicide ideation, homicidal ideation, and hallucinations, Allergy/Immunology: Negative for hives, rash, and allergies, Endocrine: Negative for neck swelling, polydipsia, polyuria, polyphagia, and marked weight changes, Hematologic/Lymphatic: Negative for swollen nodes, abnormal bleeding, and unusual bruising. 00:15 Respiratory: Positive for shortness of breath. Exam: 00:15 Constitutional: This is a well developed, well nourished patient who is awake, alert, lloyd and in no acute distress. Head/Face: Normocephalic, atraumatic. Eyes: Pupils equal round and reactive to light, extra-ocular motions intact. Lids and lashes normal. Conjunctiva and sclera are non-icteric and not injected. Cornea within normal limits. Periorbital areas with no swelling, redness, or edema. ENT: Nares patent. No nasal discharge, no septal abnormalities noted. Tympanic membranes are normal and external auditory canals are clear. Oropharynx with no redness, swelling, or masses, exudates, or evidence of obstruction, uvula midline. Mucous membranes moist. Neck: Trachea midline, no thyromegaly or masses palpated, and no cervical lymphadenopathy. Supple, full range of motion without nuchal rigidity, or vertebral point tenderness. No Meningismus. Chest/axilla: Normal chest wall appearance and motion. Nontender with no deformity. No lesions are appreciated. Cardiovascular: Regular rate and rhythm with a normal S1 and S2. No gallops, murmurs, or rubs. Normal PMI, no JVD. No pulse deficits. Respiratory: Lungs have equal breath sounds bilaterally, clear to auscultation and percussion. No rales, rhonchi or wheezes noted. No increased work of breathing, no retractions or nasal flaring. Abdomen/GI: Soft, non-tender, with normal bowel sounds. No distension or tympany. No guarding or rebound. No evidence of tenderness throughout. Back: No spinal tenderness. No costovertebral tenderness. Full range of motion. Male : Normal genitalia with no discharge or lesions. Skin: Warm, dry with normal turgor. Normal color with no rashes, no lesions, and no evidence of cellulitis. MS/ Extremity: Pulses equal, no cyanosis. Neurovascular intact. Full, normal range of motion. Neuro: Awake and alert, GCS 15, oriented to person, place, time, and situation. Cranial nerves II-XII grossly intact. Motor strength 5/5 in all extremities. Sensory grossly intact. Cerebellar exam normal. Normal gait. Psych: Awake, alert, with orientation to person, place and time. Behavior, mood, and affect are within normal limits. Vital Signs: 01/23 23:56 BP 145 / 76; Pulse 67; Resp 18; Temp 97.9(O); Pulse Ox 100% on R/A; Weight 79.38 kg; lp1 Height 5 ft. 7 in. (170.18 cm); Pain 0/10; 01/24 00:46 BP 135 / 69; Pulse 62; Resp 20; Pulse Ox 97% on R/A; Pain 0/10; aa1 01:51 BP 132 / 63; Pulse 61; Resp 18; Pulse Ox 99% on R/A; Pain 0/10; aa1 02:33 BP 122 / 59; Pulse 60; Resp 18; Pulse Ox 95% on R/A; Pain 0/10; aa1 01/23 23:56 Body Mass Index 27.41 (79.38 kg, 170.18 cm) lp1 MDM: 01/23 23:45 Patient medically screened. [facility] 01/24 00:18 Data reviewed: vital signs, nurses notes, lab test result(s), EKG, radiologic studies, lloyd plain films. 01/23 23:46 Order name: Basic Metabolic Panel; Complete Time: 00:59 [facility] 01/23 23:46 Order name: CBC with Diff; Complete Time: 00:59 [facility] 01/23 23:46 Order name: Ckmb; Complete Time: 00:59 [facility] 01/23 23:46 Order name: CPK; Complete Time: 00:59 [facility] 01/23 23:46 Order name: LFT's; Complete Time: 00:59 [facility] 01/23 23:46 Order name: Magnesium; Complete Time: 00:59 [facility] 01/23 23:46 Order name: NT PRO-BNP; Complete Time: 00:59 [facility] 01/23 23:46 Order name: PT-INR; Complete Time: 00:59 [facility] 01/23 23:46 Order name: Ptt, Activated; Complete Time: 00:59 [facility] 01/23 23:46 Order name: Troponin (emerg Dept Use Only); Complete Time: 00:59 [facility] 01/23 23:46 Order name: Lipase; Complete Time: 00:59 [facility] 01/24 00:12 Order name: TSH [facility] 01/24 00:53 Order name: Urine Dipstick--Ancillary (enter results); Complete Time: 01:20 ms 01/24 01:13 Order name: T4 Free EDMS 01/23 23:46 Order name: XRAY Chest (1 view) [facility] 01/23 23:46 Order name: EKG; Complete Time: 23:47 [facility] 01/23 23:46 Order name: Cardiac monitoring; Complete Time: 00:11 [facility] 01/23 23:46 Order name: EKG - Nurse/Tech; Complete Time: 00:12 [facility] 01/23 23:46 Order name: IV Saline Lock; Complete Time: 00:12 [facility] 01/23 23:46 Order name: Labs collected and sent; Complete Time: 00:12 [facility] 01/23 23:46 Order name: O2 Per Protocol; Complete Time: 00:12 [facility] 01/23 23:46 Order name: O2 Sat Monitoring; Complete Time: 00:12 [facility] 01/23 23:46 Order name: Urine Dipstick-Ancillary (obtain specimen); Complete Time: 00:45 [facility] 01/24 01:21 Order name: CONS Physician Consult EDVT 01/24 01:21 Order name: Heart Healthy EDVT Administered Medications: 00:14 CANCELLED (Duplicate Order): NS 0.9% 1000 ml IV at 75 ml/hr continuous [facility] 00:45 Drug: Lasix 40 mg Route: IVP; Site: right antecubital; aa1 01:43 Follow up: Response: No adverse reaction; No change in condition aa1 01:25 Drug: Aspirin 81 mg Route: PO; aa1 02:45 Follow up: Response: No adverse reaction aa1 01:25 Drug: Lovenox 1 mg/kg Route: Sub-Q; Site: left lower abdomen; aa1 02:44 Follow up: Response: No adverse reaction aa1 Disposition: 01/24/18 01:16 Hospitalization ordered by Omid Montiel for Inpatient Admission. Preliminary diagnosis are Dyspnea, Atrial fibrillation and flutter, Cardiomegaly, Unspecified kidney failure, Hypothyroidism, unspecified. - Bed requested for Telemetry/MedSurg (Inpatient). - Status is Inpatient Admission. aa1 - Condition is Fair. - Problem is new. - Symptoms have improved. UTI on Admission? No Signatures: Dispatcher [employer] EDVT Brittani Garcia RN RN Catherine Kerr RN RN aa1 Ramsey Martínez MD MD cha Pena, Laura RN RN lp1 Corrections: (The following items were deleted from the chart) 00:14 01/23 23:46 NS 0.9% 1000 ml IV at 75 ml/hr continuous ordered. lloyd [facility] 01/24 01:21 01:16 Hospitalization Ordered by Omid Montiel MD for Inpatient Admission. Preliminary [facility] diagnosis is Dyspnea; Atrial fibrillation and flutter; Cardiomegaly; Unspecified kidney failure. Bed requested for Telemetry/MedSurg (Inpatient). Status is Inpatient Admission. Condition is Fair. Problem is new. Symptoms have improved. UTI on Admission? No. lloyd 01:32 01:21 01/24/2018 01:16 Hospitalization Ordered by Omid Montiel MD for Inpatient mw Admission. Preliminary diagnosis is Dyspnea; Atrial fibrillation and flutter; Cardiomegaly; Unspecified kidney failure; Hypothyroidism, unspecified. Bed requested for Telemetry/MedSurg (Inpatient). Status is Inpatient Admission. Condition is Fair. Problem is new. Symptoms have improved. UTI on Admission? No. lloyd 02:46 01:32 01/24/2018 01:16 Hospitalization Ordered by Omid Montiel MD for Inpatient aa1 Admission. Preliminary diagnosis is Dyspnea; Atrial fibrillation and flutter; Cardiomegaly; Unspecified kidney failure; Hypothyroidism, unspecified. Bed requested for Telemetry/MedSurg (Inpatient). Status is Inpatient Admission. Condition is Fair. Problem is new. Symptoms have improved. UTI on Admission? No.
[2018-01-24] MEDS ORDERED: ASPIRIN 81 MG CHEWABLE TABLET ONE (01:26)
[2018-01-24] MEDS ORDERED: ENOXAPARIN 80 MG/0.8 ML SQ ONE (01:27)
[2018-01-24] MEDS ORDERED: ACETAMINOPHEN 500 MG TAB PO PRN (02:14)
[2018-01-24] MEDS ORDERED: ONDANSETRON 4 MG/2 ML VIAL IV PRN (02:14)
[2018-01-24] MEDS ORDERED: LEVOTHYROXINE SOD 0.1 MG TAB PO SCH (06:00)
[2018-01-24 06:09] VITALS: BMI 27.3
[2018-01-24] MEDS ORDERED: POTASSIUM CL SA 10 MEQ TAB PO ONE (06:40)
--- NOTE | 2018-01-24 07:02 | EKG ---
Test Date: 2018-01-24 Test Time: 00:04:01 Machine Sweeper Brush Maker: TONI MEASUREMENT RESULTS: Intervals: Rate: 61 AK: QRSD: 110 QT: 424 QTc: 426 [place]: P: 75 AK: QRS: -27 T: 147 INTERPRETIVE STATEMENTS: Atrial flutter with variable AV block Left ventricular hypertrophy with repolarization abnormality Cannot rule out Septal infarct, age undetermined Abnormal ECG Compared to ECG 01/11/2018 00:58:49 Left ventricular hypertrophy now present Early repolarization now present T-wave abnormality no longer present Possible ischemia no longer present Myocardial infarct finding still present Electronically Signed On 01-24-18 07:01:24 CDT by Haroldo Rojas
--- NOTE | 2018-01-24 08:02 | RAD REPORT ---
EXAM DESCRIPTION: RAD - Chest Single View - 01/24/2018 12:03 am CLINICAL HISTORY: Cough;Dyspnea Chest pain. COMPARISON: Chest Single View dated 01/11/2018; Chest Single View dated 01/03/2018; Chest Single View d ated 12/30/2017; Chest Single View dated 10/19/2017 FINDINGS: Portable technique limits examination quality. Mild interstitial pulmonary edema is noted. The heart is moderately enlarged in size with changes of a prior CABG. Single lead pacer/ defibrillator device is present. Trace right pleural effusion seen. No displaced fractures. IMPRESSION: Mild CHF/ volume overload pattern.
[2018-01-24] MEDS ORDERED: ASPIRIN EC 81 MG TAB PO SCH (09:00)
[2018-01-24] MEDS ORDERED: SPIRONOLACTONE 25 MG TABLET PO SCH (09:00)
[2018-01-24] MEDS ORDERED: FUROSEMIDE 40 MG TABLET PO SCH (09:00)
[2018-01-24] MEDS ORDERED: LOSARTAN POTASSIUM 50 MG TABLET PO SCH ×2 (09:00)
[2018-01-24] MEDS ORDERED: TAMSULOSIN 0.4 MG SR CAP PO SCH ×2 (09:00→21:00)
[2018-01-24] MEDS ORDERED: CLOPIDOGREL 75 MG TABLET PO SCH (09:00)
[2018-01-24] MEDS ORDERED: RIVASTIGMINE 9.5 MG/24 HR PATCH TD SCH (09:00)
[2018-01-24] MEDS ORDERED: METOPROLOL TAR 50 MG TAB PO SCH (09:00)
[2018-01-24] MEDS ORDERED: ISOSORBIDE DINIT 5 MG TAB PO SCH (09:00)
[2018-01-24] MEDS: METOPROLOL XL 25 MG TAB PO SCH (09:00)
[2018-01-24] MEDS ORDERED: ISOSORBIDE DINIT 20 MG TAB PO SCH (09:00)
[2018-01-24] MEDS: CLOPIDOGREL 75 MG TABLET PO SCH (09:11)
[2018-01-24] MEDS: ENOXAPARIN 30 MG/0.3 ML SQ SCH (09:11)
[2018-01-24] MEDS: GLIMEPIRIDE 2 MG TABLET PO SCH (09:12)
[2018-01-24] MEDS: SPIRONOLACTONE 25 MG TABLET PO SCH ×2 (09:12→20:21)
[2018-01-24] MEDS: ASPIRIN EC 81 MG TAB PO SCH (09:12)
[2018-01-24] MEDS: RISPERIDONE 0.25 MG TABLET PO SCH (09:12)
[2018-01-24] MEDS: FUROSEMIDE 40 MG/4 ML VIAL IV SCH ×2 (09:13→16:18)
--- NOTE | 2018-01-24 09:17 | RAD REPORT ---
EXAM DESCRIPTION: US - Renal Ultrasound-Complete - 01/24/2018 8:29 am CLINICAL HISTORY: Acute renal insuff COMPARISON: Renal Ultrasound-Complete dated 10/21/2017 FINDINGS: Both kidneys are normal in size, shape and echotexture. The right kidney measures 9.6 x 4.9 x 4.5 cm. No hydronephrosis, focal mass or perinephric fluid. The left kidney measures 11.1 x 5.0 x 4.2 cm. No hydronephrosis, focal mass or perinephric fluid. The urinary bladder is incompletely distended without gross abnormality seen. IMPRESSION: Unremarkable renal sonogram.
[2018-01-24 10:41] LABS: Urine Protein/Creatinine Ratio 0.64 ratio (<0.15)
--- NOTE | 2018-01-24 13:43 | P.HP ---
Certification for Inpatient Patient admitted to: Inpatient With expected LOS: >2 Midnights Patient will require the following post-hospital care: None Practitioner: I am a practitioner with admitting privileges, knowledge of patient current condition, hospital course, and medical plan of care. Services: Services provided to patient in accordance with Admission requirements found in Title 42 Section 412.3 of the Code of Federal Regulations Patient History Date of Service: 01/24/18 Reason for admission: Shortness of breath History of Present Illness: . Patient is an 82-year-old gentleman who came to the hospital with shortness of breath. Patient has been short of breath for the last couple of days. He recently was in the hospital and had an echocardiogram which revealed an ejection fraction of 20-25%. Patient also has a pacemaker/defibrillator. Patient was found in the ER to be dyspneic and was given diuretics. After being given diuretics patient's respiratory status has improved. However patient also has developed acute on chronic renal insufficiency. We are going to need to figure out of balance between diuresing patient and monitoring his renal function. Allergies No Known Allergies Allergy (Verified 01/24/18 05:19) Home Medications: Aspirin [Adult Aspirin] 81 mg PO DAILY 01/24/18 Atorvastatin Calcium [Lipitor] 40 mg PO BEDTIME 01/24/18 Clopidogrel Bisulfate [Plavix] 75 mg PO DAILY 01/24/18 Furosemide [Lasix] 40 mg PO BID 01/24/18 Glimepiride [Amaryl] 2 mg PO DAILY 01/24/18 Isosorbide Dinitrate 10 mg PO BID 01/24/18 Levothyroxine Sodium [Synthroid] 200 mcg PO DAILY 01/24/18 Losartan Potassium 25 mg PO DAILY 01/24/18 Metoprolol Succinate [Toprol Xl] 12.5 mg PO DAILY 01/24/18 Nitroglycerin [Nitrostat] 0.4 mg SL Q5MX3 PRN 01/24/18 Omeprazole 20 mg PO DAILY 01/24/18 Ranolazine [Ranexa] 1,000 mg PO BID 01/24/18 Spironolactone [Aldactone] 25 mg PO DAILY 01/24/18 Tamsulosin [Flomax] 0.4 mg PO BEDTIME 01/24/18 - Past Medical/Surgical History Has patient received pneumonia vaccine in the past: Yes Diabetic: Yes -: NIDDM -: PAcemaker -: afib per hx -: CAD -: chronic systolic CHF EF 25-29% -: Dementia -: hypothyroidism -: HTN -: Pneumonia -: COPD -: BPH -: angina -: pacemaker -: triple bypass - Family History Father Medical History: Heart disease - Social History Smoking Status: Former smoker Alcohol use: No CD- Drugs: No Caffeine use: No Place of Residence: [facility] Review of Systems 10-point ROS is otherwise unremarkable Physical Examination - Vital Signs Temperature: 98.2 F Blood Pressure: 86/43 Pulse: 62 Respirations: 18 Pulse Ox (%): 97 - Physical Exam General: Alert, In no apparent distress, Oriented x3 HEENT: Atraumatic, PERRLA, Mucous membr. moist/pink, EOMI, Sclerae nonicteric Neck: Supple, 2+ carotid pulse no bruit, No LAD, Without JVD or thyroid abnormality Respiratory: Clear to auscultation bilaterally, Normal air movement Cardiovascular: Normal S1 S2, No murmurs, Irregular heart rate/rhythm, Systolic murmur Gastrointestinal: Normal bowel sounds, Soft and benign, Non-distended, No tenderness Musculoskeletal: No clubbing, No tenderness, Swelling Integumentary: No rashes Neurological: Normal gait, Normal speech, Normal tone, Sensation intact, Cranial nerves 3-12 intact, Normal affect, Abnormal strength Lymphatics: No axilla or inguinal lymphadenopathy - Studies Laboratory Data (last 24 hrs) 01/24/18 00:05: PT 13.1 H, INR 1.11, APTT 34.3 01/24/18 00:05: WBC 6.7 D, Hgb 11.4 L, Hct 34.3 L, Plt Count 119 L 01/24/18 00:05: Sodium 141, Potassium 3.9, BUN 28 H, Creatinine 1.80 H, Glucose 145 H, Magnesium 2.4, Total Bilirubin 0.9, AST 21, ALT 19, Alkaline Phosphatase 87, Lipase 113 Assessment & Plan - Problems (Diagnosis) (1) Abnormal renal function Onset Date: 10/21/17 Current Visit: No Status: Acute (2) Acute on chronic systolic (congestive) heart failure Onset Date: 12/31/17 Current Visit: No Status: Acute (3) Atrial flutter Current Visit: No Status: Chronic Qualifiers: (4) BPH (benign prostatic hyperplasia) Onset Date: 12/31/17 Current Visit: No Status: Chronic Qualifiers: (5) CAD (coronary artery disease) Onset Date: 12/31/17 Current Visit: No Status: Chronic Qualifiers: (6) Dementia Onset Date: 12/31/17 Current Visit: No Status: Chronic Qualifiers: (7) Diabetes mellitus Onset Date: 10/21/17 Current Visit: No Status: Chronic Qualifiers: (8) GERD (gastroesophageal reflux disease) Current Visit: No Status: Chronic Qualifiers: (9) History of pacemaker Current Visit: No Status: Chronic (10) Hyperlipidemia Onset Date: 10/21/17 Current Visit: No Status: Chronic Qualifiers: (11) Hypothyroidism Onset Date: 10/21/17 Current Visit: No Status: Chronic Qualifiers: - Plan 1. Echocardiogram which was done about a month ago revealed an ejection fraction of 20-25%. 2. Continue with cardiac medications including an angiotensin receptor dakota , Aldactone, low-dose beta-dakota. 3. We will start patient on a Beta dakota In 24-48 hours 4. Cardiology consultation 5. Aggressive diuresis 6. Strict I's and O's ; monitor renal function closely; renal ultrasound 7. Repeat CXR 8. Daily weights 9. Education regarding diet and treatment of congestive heart failure - Advance Directives Does patient have a Living Will: No Does patient have a Durable POA for Healthcare: No - Code Status/Comfort Care Code Status Assessed: Yes Code Status: Full Code Critical Care: No Time Spent Managing PTS Care (In Minutes): 50
[2018-01-24] MEDS ORDERED: FUROSEMIDE 40 MG/4 ML VIAL IV ONE (15:53)
[2018-01-24] MEDS ORDERED: ATORVASTATIN 80 MG TAB PO SCH (21:00)
[2018-01-24] MEDS ORDERED: ATORVASTATIN 40 MG TAB PO SCH (21:00)
--- NOTE | 2018-01-24 21:28 | CON ---
Date of Consultation: 01/24/2018 Reason For Consultation: Elevated BUN and creatinine, fluid management. History Of Present Illness: This is a pleasant 82-year-old gentleman, all the information has been o btained from the record and from the sister by bedside as the patient has advanced dementia and had h ypertension, had coronary artery disease status post CABG, complicated with congestive heart failure, ejection fraction around 25% status post ICD, hyperlipidemia, diabetes complicated with neuropathy. No retinopathy. Chronic kidney disease, baseline creatinine around 1.8. Last creatinine back in 2017. The patient came to the hospital complaining of shortness of breath, increase and leg swelli ng, found to have congestive heart failure. Elevated BUN, creatinine. For that reason, we have been consulted. The patient denied taking any nonsteroidal. No IV contrast. No recent change in his me dication. Patient lives in custodial. Allergies: NO KNOWN DRUG ALLERGIES. Home Medications: Include aspirin, atorvastatin, Plavix, glimepiride, levothyroxine, losartan, nitro glycerin, metoprolol, omeprazole, Aldactone and Flomax. Past Surgical History: Include, 1.ICD. 2.CABG. 3.Pacemaker insertion. Family History: Positive for diabetes and hypertension. Social History: Lives in custodial. Ex-smoker. Denied alcohol. Denied drug abuse. Review of Systems: Head and Neck: No red eye. No ear pain. GI: No nausea, no vomiting. : No polyuria. No dysuria. No hematuria. HAND TUBE WINDER: Not applicable. Respiratory: Has shortness of breath. Cardiovascular: No chest pain. Endocrine: No polydipsia. Skin: No rash. Neuro: Has neuropathy. Musculoskeletal: Has low back pain. Endocrine: No polydipsia. Physical Examination: Vital Signs: When I saw the patient, blood pressure 86/43, pulse of 62, afebrile. The patient had g ood urine output. Chest: Crackles bilateral. Heart: S1, S2. Systolic murmur. Abdomen: Soft, nontender. Extremities: +2 edema. Laboratory Data: WBC 6.2, H and H 11.4/34.3, platelets 119. Sodium 141, potassium 3.9, bicarb 31, B UN 28, creatinine 0.8, calcium 8.8. LFT within normal limit. BNP 7466, TSH 49. Current Medications: The patient on include, 1.Flomax. 2.Plavix. 3.Atorvastatin. 4.Losartan 25. 5.Metoprolol. 6.Ranexa. 7.Spironolactone. 8.Risperidone. 9.Lasix 40 b.i.d. 10.Levothyroxine. 11.Glimepiride. Assessment And Plan: 1.Chronic kidney disease, stable on the baseline, over volume, normal-sized kidney, 9.6 x 11.1. I a m going to continue on the diuresis for the patient, and we will follow up. 2.Hypertension, currently blood pressure on the lower side. I am going to discontinue isosorbide an d losartan. We will utilize blood pressure for more diuresis, and we will follow up the patient. 3.Anasarca secondary to cardiorenal and hypothyroidism. I will go ahead and increase his levothyrox ine to 225, and we will follow up the patient. 4.Congestive heart failure as above. 5.Hypothyroidism. We will increase the levothyroxine. Thank you Dr. Montiel for allowing us to participate in the care of your patient. CLIFFORD Voice ID: [id number] Report ID: [id number]
[2018-01-25] MEDS ORDERED: LEVOTHYROXINE SOD 0.025 MG TAB PO SCH (06:00)
[2018-01-25] MEDS ORDERED: LEVOTHYROXINE SOD 0.1 MG TAB PO SCH ×2 (06:00)
--- NOTE | 2018-01-25 06:12 | CON ---
Date of Consultation: 01/24/2018 He was seen on 01/24/2018. Reason For Consultation: Congestive heart failure. History Of Present Illness: Mr. Ashford is an 82-year-old white male, very well known to us, who has santamaria d multiple admissions to the hospital for the same scenario. 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 No ischemia on Lexiscan in October of 2013. He has a defibrillator that is single-chamber. Has chronic atrial flutter, dyslipi demia, diabetes, coronary artery disease, hypertension, hypothyroidism, gastroesophageal reflux disea se, benign prostatic hypertrophy, renal failure, COPD, as well as dementia. He comes back with conge stive heart failure with a creatinine of 1.8. He has an elevated TSH of 49 and T4 of 0.71, which is low. His troponin was 0.05. His BNP was 7466. No chest pain reported. No syncope, just shortness of breath, PND, orthopnea, as well as pedal edema. He has already improved after IV Lasix. Allergies: NONE. Review of Systems: Negative. Social History: Negative. Family History: Noncontributory. Medications: Include Ranexa, Lipitor, glimepiride, Synthroid, Prilosec, Plavix, Imdur, losartan, met oprolol, Flomax, and Lasix, as well as Aldactone. Physical Examination: Vital Signs: His vital signs were stable. He was in atrial flutter with a rate of 80. He was afebr ile. HEENT: Negative. Neck: Supple without any bruit or lymphadenopathy. He did have about 3 cm JVD. Chest: Reveals some rales at the bases. Cardiac: Examination revealed an irregularly irregular rhythm and rate without any gallops, murmurs, or rubs. Abdomen: Benign. Extremities: Revealed trace edema. Diagnostic Data: As stated earlier. Impression And Plan: 1.Acute exacerbation of chronic systolic congestive heart failure. 2.Chronic atrial fibrillation and flutter. 3.Coronary artery disease, status post coronary artery bypass grafting. 4.Chronic renal failure. 5.Hypothyroidism with elevated TSH and T4, and this should be addressed with increasing his thyroid dose. 6.His other problems include diabetes, dyslipidemia, hypertension, gastroesophageal reflux disease, chronic obstructive pulmonary disease, benign prostatic hypertrophy, and dementia. All these are sta ble. Mr. Ashford is already on appropriate regimen from a cardiovascular standpoint. He is on beta-blockers. He is on Aldactone. He is on losartan. He already has a defibrillator single-chamber. Not a cand idate for a biventricular pacemaker. We will continue his regimen, increase Lasix dose, treat his th yroid. We will follow him along. VANESA/KO Voice ID: [id number] Report ID: [id number]
[2018-01-25] MEDS ORDERED: PANTOPRAZOLE 40MG TABLET PO SCH (06:30)
[2018-01-25 06:53] LABS: Albumin 3.5 g/dL (3.4-5.0); Phosphorus 3.5 mg/dL (2.5-4.9); Potassium 4.2 mmol/L (3.5-5.1)
[2018-01-25] MEDS: ENOXAPARIN 30 MG/0.3 ML SQ SCH (08:49)
[2018-01-25] MEDS: ASPIRIN EC 81 MG TAB PO SCH (08:50)
[2018-01-25] MEDS: GLIMEPIRIDE 2 MG TABLET PO SCH (08:50)
[2018-01-25] MEDS: METOPROLOL XL 25 MG TAB PO SCH (08:52)
[2018-01-25] MEDS: CLOPIDOGREL 75 MG TABLET PO SCH (08:53)
[2018-01-25] MEDS: FUROSEMIDE 40 MG/4 ML VIAL IV SCH (08:54)
[2018-01-25] MEDS: RISPERIDONE 0.25 MG TABLET PO SCH (08:54)
[2018-01-25] MEDS: SPIRONOLACTONE 25 MG TABLET PO SCH (08:54)
[2018-01-25 12:00] VITALS: BP 111/56; TEMP 97.9
--- NOTE | 2018-01-25 12:47 | PN ---
Date of Progress Note: 01/25/2018 Mr. Ashford was admitted and seen for congestive heart failure, end-stage cardiomyopathy, ejection fract ion 18%, single-chamber AICD, acute exacerbation of chronic systolic congestive heart failure. He santamaria s improved. He is diuresing well. O2 saturation is adequate. No rales. No edema. I would send gail singer home on his present medical regimen with a higher Lasix dose and more compliant and watch his sodiu m intake. We will see him in the office as an outpatient. He can go home today. VANESA/KO Voice ID: [id number] Report ID: [id number]
[2018-01-25 13:09] VITALS: O2SAT 97
--- NOTE | 2018-01-25 15:35 | P.SSS ---
Patient History Date of Service: 01/25/18 Reason for admission: Shortness of breath History of Present Illness: Patient is an 82-year-old gentleman who came to the hospital with shortness of breath. Patient has been short of breath for the last couple of days. He recently was in the hospital and had an echocardiogram which revealed an ejection fraction of 20-25%. Patient also has a pacemaker/defibrillator. Patient was found in the ER to be dyspneic and was given diuretics. After being given diuretics patient's respiratory status has improved. However patient also has developed acute on chronic renal insufficiency. We are going to need to figure out of balance between diuresing patient and monitoring his renal function. Allergies No Known Allergies Allergy (Verified 01/24/18 05:19) Home Medications: Aspirin [Adult Aspirin] 81 mg PO DAILY 01/24/18 Atorvastatin Calcium [Lipitor] 80 mg PO BEDTIME 01/24/18 Cholecalciferol (Vitamin D3) [Vitamin D3] 2,000 unit PO DAILY 01/24/18 Clopidogrel Bisulfate [Plavix*] 75 mg PO DAILY 01/24/18 Ergocalciferol (Vitamin D2) [Vitamin D2] 1 tab PO EVERY 7TH DAY 01/24/18 Glimepiride [Amaryl*] 2 mg PO DAILY 01/24/18 Isosorbide Dinitrate 10 mg PO BID 01/24/18 Levothyroxine Sodium [Synthroid] 200 mcg PO DAILY 01/24/18 Losartan Potassium 25 mg PO DAILY 01/24/18 Metoprolol Succinate [Toprol Xl*] 25 mg PO BID 01/24/18 Nitroglycerin [Nitrostat*] 0.4 mg SL Q5MX3 PRN 01/24/18 Omeprazole 20 mg PO DAILY 01/24/18 Ranolazine [Ranexa] 1,000 mg PO BID 01/24/18 Rivastigmine [Exelon] 1 each TD DAILY 01/24/18 Spironolactone [Aldactone*] 25 mg PO BID 01/24/18 Tamsulosin [Flomax*] 0.4 mg PO DAILY 01/24/18 risperiDONE [Risperidone] 1 tab PO BEDTIME 01/24/18 Furosemide [Lasix] 60 mg PO BIDL #90 tab 01/25/18 - Past Medical/Surgical History Has patient received pneumonia vaccine in the past: Yes Diabetic: Yes -: NIDDM -: PAcemaker -: afib per hx -: CAD -: chronic systolic CHF EF 25-29% -: Dementia -: hypothyroidism -: HTN -: Pneumonia -: COPD -: BPH -: angina -: pacemaker -: triple bypass - Family History Father -: Heart disease - Social History Smoking Status: Former smoker Alcohol use: No CD- Drugs: No Caffeine use: No Place of Residence: [facility] Review of Systems General: As per HPI Physical Examination - Vital Signs Temperature: 97.9 F Blood Pressure: 111/56 Pulse: 64 Respirations: 18 Pulse Ox (%): 100 - Physical Exam General: Alert, In no apparent distress HEENT: Atraumatic, PERRLA, Mucous membr. moist/pink, EOMI, Sclerae nonicteric Neck: Supple, 2+ carotid pulse no bruit, No LAD, Without JVD or thyroid abnormality Respiratory: Clear to auscultation bilaterally, Normal air movement Cardiovascular: Regular rate/rhythm, Normal S1 S2 Gastrointestinal: Normal bowel sounds, No tenderness Musculoskeletal: No tenderness Integumentary: No rashes Neurological: Normal gait, Normal speech, Normal strength at 5/5 x4 extr, Normal tone, Normal affect Lymphatics: No axilla or inguinal lymphadenopathy - Diagnosis (Problem(s)) (1) Acute on chronic systolic (congestive) heart failure Onset Date: 12/31/17 Status: Acute (2) Chest pain Onset Date: 10/21/17 Status: Resolved Qualifiers: Chest pain type: chest pain due to myocardial ischemia Ischemic chest pain type: unstable angina pectoris Qualified Code(s): I20.0 - Unstable angina (3) Atrial flutter Status: Chronic Qualifiers: Atrial flutter type: typical Qualified Code(s): I48.3 - Typical atrial flutter (4) BPH (benign prostatic hyperplasia) Onset Date: 12/31/17 Status: Chronic Qualifiers: Lower urinary tract symptom presence: symptoms absent Qualified Code(s): N40.0 - Benign prostatic hyperplasia without lower urinary tract symptoms (5) CAD (coronary artery disease) Onset Date: 12/31/17 Status: Chronic Qualifiers: Coronary Disease-Associated Artery/Lesion type: [place] artery [place] vs. transplanted heart: jena heart Associated angina: without angina Qualified Code(s): I25.10 - Atherosclerotic heart disease of [place] coronary artery without angina pectoris (6) Chronic renal disease Onset Date: 12/31/17 Status: Chronic Qualifiers: Chronic kidney disease stage: stage 3 (moderate) Qualified Code(s): N18.3 - Chronic kidney disease, stage 3 (moderate) (7) Dementia Onset Date: 12/31/17 Status: Chronic Qualifiers: Dementia type: unspecified type Dementia behavioral disturbance: without behavioral disturbance Qualified Code(s): F03.90 - Unspecified dementia without behavioral disturbance (8) Diabetes mellitus Onset Date: 10/21/17 Status: Chronic Qualifiers: (9) GERD (gastroesophageal reflux disease) Status: Chronic Qualifiers: Esophagitis presence: without esophagitis Qualified Code(s): K21.9 - Gastro -esophageal reflux disease without esophagitis (10) History of pacemaker Status: Chronic (11) Hyperlipidemia Onset Date: 10/21/17 Status: Chronic Qualifiers: Hyperlipidemia type: mixed hyperlipidemia Qualified Code(s): E78.2 - Mixed hyperlipidemia (12) Hypothyroidism Onset Date: 10/21/17 Status: Chronic Qualifiers: Hypothyroidism type: acquired Qualified Code(s): E03.9 - Hypothyroidism, unspecified Treatment Summary: Overall during the hospital stay patient remained stable patient initially was admitted to the hospital for chest pain and shortness of breath most likely secondary to CHF exacerbation. Cardiology was consulted who recommended the patient be started on Lasix b.i.d.. Patient received a Lasix IV b.i.d. here in the hospital and had marked improvement in his symptoms and then was discharged home under stable condition. [facility] is [facility] and was [facility] to the [facility] with the increased dose of Lasix of 60 b.i.d.. Patient also has chronic renal failure which was probably also contributing to his shortness of breath and volume overload. Patient was educated extensively on fluid restriction and compliance with medication and low -sodium diet at the [facility]. It is hard for the patient to be compliant with a low-sodium diet at the [facility] as he does not have any control on his dietary restriction at the [facility]. shelter was contacted and notified the patient will be needing low-sodium diet and low fluid restriction and agreed with the plan. Patient then was discharged back to the [facility] under stable condition - Disposition Disposition: ROUTINE DISCHARGE Condition: GOOD Diet: Regular Activity: Ad charo
[2018-01-25] MEDS ORDERED: FUROSEMIDE 40 MG/4 ML VIAL IV SCH (17:00)
--- NOTE | 2018-01-25 19:43 | PN ---
Date of Progress Note: 01/25/2018 Subjective: Patient is doing better. Shortness of breath has subsided. Still leg swelling. Physical Examination: Vital Signs: When I saw the patient, blood pressure of 111/56, pulse of 64, afebrile. Chest: Clear in the upper zone. Basilar crackles bilaterally. Heart: S1, S2. Regular. Systolic murmur. Abdomen: Soft, nontender. Extremities: +1 edema. Laboratory Data: H and H 11.4/34.3. Sodium 141, potassium 4.2, bicarb 28, BUN 30, creatinine 1.8, c alcium 8.6. Phosphorus 3.2. TSH 49. Current Medications: Plavix, Lovenox, Flomax, aspirin, atorvastatin, metoprolol, Ranexa 1000 b.i.d., Aldactone 25 b.i.d., risperidone, Lasix 40 b.i.d., glimepiride, levothyroxine, KCl. 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 Still on the wet side. I am going to go ahead and increase his Lasix to 60 mg twice a day and we will follow up. 2.Hypokalemia with congestive heart failure. Agree with Aldactone. 3.Hypertension, controlled, optimal. Continue current medication. 4.Congestive heart failure. We will try to establish better volume control by adjusting the diuresi s. 5.Anasarca secondary to cardiorenal and hypothyroidism. We will just increase the levothyroxine. We will follow up. Continue diuresis. 6.Hypokalemia. Continue supplement. We will add Aldactone. RICKEY/KO Voice ID: [id number] Report ID: [id number]
== END 2018-01-25 15:16 | DRG 291 ==
LOC: ER 23:30 → ERHOLD 01-24 01:18 → 4TH 01-24 02:34
PROVIDERS: ADMIT Hospitalist; ATTEND Family Medicine
DX: I13.0 Hypertensive heart and chronic kidney disease with heart failure and stage 1 through stage 4 chronic kidney disease, or unspecified chronic kidney disease (principal); I50.23 Acute on chronic systolic (congestive) heart failure; I48.3 Typical atrial flutter; E03.9 Hypothyroidism, unspecified; E11.22 Type 2 diabetes mellitus with diabetic chronic kidney disease; I25.110 Atherosclerotic heart disease of native coronary artery with unstable angina pectoris; N40.0 Benign prostatic hyperplasia without lower urinary tract symptoms; N18.3 Chronic kidney disease, stage 3 (moderate); F03.90 Unspecified dementia, unspecified severity, without behavioral disturbance, psychotic disturbance, mood disturbance, and anxiety; I48.2 Chronic atrial fibrillation; K21.9 Gastro-esophageal reflux disease without esophagitis; E78.2 Mixed hyperlipidemia; N28.9 Disorder of kidney and ureter, unspecified; I50.84 End stage heart failure; Z95.810 Presence of automatic (implantable) cardiac defibrillator; Z79.84 Long term (current) use of oral hypoglycemic drugs; Z79.02 Long term (current) use of antithrombotics/antiplatelets; Z95.1 Presence of aortocoronary bypass graft; Z87.891 Personal history of nicotine dependence; Z79.82 Long term (current) use of aspirin; J44.9 Chronic obstructive pulmonary disease, unspecified; E11.40 Type 2 diabetes mellitus with diabetic neuropathy, unspecified; D63.8 Anemia in other chronic diseases classified elsewhere
CPT/HCPCS: 36415; 71045; 76770; 80048; 80069; 80076; 81003; 82550; 82553; 82570; 83690; 83735; 83880; 84156; 84439; 84443; 84484; 85025; 85610; 85730; 93005; 96372; 96374; 99285; J1650; J7030

== ENCOUNTER 2018-02-03 21:50 | Emergency (ER) | payer OTHER ==
--- OUTSIDE RECORDS SUMMARY | 2018-02-03 21:51 | XMS REPORT | Clinical Summary ---
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 Device Expiration Model / Identifier Date Serial / Lot Inogen El Icd Vr Defibrillators N/A: [employer] 07/10/2019 [id number] / Implanted: Qty: 1 on 12/20/2017 by Dwayne Flores MD Chest [employer] [id number] / Procedures Procedure Name Priority Date/Time Associated Diagnosis Comments AICD GENERATOR - 12/20/2017 7:20 AM Dilated cardiomyopathy REMOVE & REPLACE CDT (HCC) (SINGLE LEAD) Case Notes 1st \\CASE POP6 after 02/02/2017 Results CARDIAC CATH REPORT - SCAN (12/24/2017 [...] % Specimen Performing Laboratory Blood - Arm, [address] [address] Prothrombin time/INR (12/20/2017 7:05 AM) Component Value Ref Range Protime 15.1 (H) 11.7 - 14.7 seconds INR 1.2 <=5.9 Specimen Performing Laboratory Blood - Arm, [address] [address] Narrative RECOMMENDED COUMADIN/WARFARIN INR THERAPY RANGES STANDARD [...] Status --------- ------ CBC with platelet count ...[[id number]]AbnormalFinal result Please view results for these tests [...] PATIENTS. Specimen Performing Laboratory Blood - Arm, [facility] [address] [place] [id number] ECG 12 lead (12/20/2017 7:00 AM) Specimen Performing Laboratory GE MUSE Narrative Ventricular Rate 58 BPM Atrial Rate 232 BPM QRS Duration 98 ms Q-T Interval 426 ms QTC Calculation(Bazett) 418 ms P [place] 45 degrees R [place] -25 degrees T [place] 139 degrees Atrial flutter with variable A-V block with premature ventricular or aberrantly conducted complexes Abnormal ECG No previous ECGs available Confirmed by James BEJARANO MICHAEL ([id number]) on 12/20/2017 7:33:36 AM Procedure Note Interface, External Ris In - 12/20/2017 7:33 AM CDT Ventricular Rate 58 BPM Atrial Rate 232 BPM QRS Duration 98 ms Q-T Interval 426 ms QTC Calculation(Bazett) 418 ms P [place] 45 degrees R [place] -25 degrees T [place] 139 degrees Atrial flutter with variable A-V block with premature ventricular or aberrantly conducted complexes Abnormal ECG No previous ECGs available Confirmed by James BEJARANO MICHAEL ([id number]) on 12/20/2017 7:33:36 AM after 02/02/2017
--- OUTSIDE RECORDS SUMMARY | 2018-02-03 22:01 | XMS REPORT | Continuity of Care Document ---
:1935 Author Organization Interface Problems Problem Status Onset Classification Date Comments Source Date Reported Irritability and anger The [address] [place] [address] Anger reaction The [address] [place] [address] Dementia The [address] [place] [address] FALL ON BLOODTHINNERS Active The 2018 [place] Discharge Diagnosis: [facility] Chronic renal 2017 7 insufficiency Discharge Diagnosis: [facility] Chronic CHF 2017 7 ABNORMAL LABS Active 05/30/ [facility] 2016 AFIB/DIZZY Active 11/02[facility] 2016 CP Active 12/[facility] 2015 UNSTABLE ANGINA Active 05/16/ [address] CHRONIC SYSTOLIC HEART Active [facility] FAILURE 428.22 ANGINA 2012 413.9 CHRONIC SYSTOLIC HEART Active 06/22/ [facility] FAILURE 428.22 ANGINA 2012 413.9. Heart failure Active Problem [facility] 2 Heart failure Active Problem [facility] 7 Imaging [facility] Heart failure Active Problem [facility] 5 Imaging [facility] Presence of automatic Active Problem Cardiovascular cardiac defibrillator 8 [facility] Atherosclerotic heart Active Problem Cardiovascular disease of pilot station [facility] coronary artery with other forms [...] Active Diagnosis Cardiovascular atherosclerosis of 5 [facility] pilot station vessel Diabetes mellitus type Active Problem Cardiovascular [...] Assoc complications Unspecified dementia The without behavioral [address] [place] [address] disturbance Laceration without The foreign body of left [address] [place] [address] elbow, initial encounter Abrasion of scalp, The initial encounter [address] [place] [address] Abrasion of right The forearm, initial [address] [place] [address] encounter Striking against other The stationary object, [address] [place] [address] initial encounter Essential hypertension The [address] [place] [address] 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 irmed</span>) [facility] [place] (<span Resolved Problem [facility], ID="[id number]">Conf 8 [facility] irmed</span>) [facility] [place] ANGINA PECTORIS, Active [facility] CHR SYSTOLIC HRT Active [facility] FAILURE ENCOUNTER FOR Active [facility] MALIGNANT NE NON-ST ELEVATION Active [facility] (NSTEMI) MYOCARDIAL INF CHEST PAIN, Active [facility] UNSPECIFIED UNSPECIFIED ATRIAL Active [facility] FIBRILLATION Medications Medication Details Route Status Patient Ordering Order Source Instructions Provider Date Saline Flush 10 mL, Inactive The 0.9% Route: IVP2017 [facility] Drug Form: INJ, Dosing Weight 83.182, kg, PRN, PRN Line Flush, Start date: 08/06/17 1:02:00 REFRIGERATING OILER, Duration: 30 day, Stop date: 09/05/17 2:01:00 CDTNotes: Same as: BD Posiflush Sterile Saline Flush 10 mL, Inactive 0.9% Route: IVP2016 [facility] Drug Form: INJ, Dosing Weight 83.182, kg, PRN, PRN Line Flush, Start date: 05/30/17 11:48:00 REFRIGERATING OILER, Duration: 1 day, Stop date: 05/31/17 11:47:00 CSTNotes: (Same as: BD Posiflush) apixaban 2.5 mg 2.5 mg=1 Active oral tablet tab, PO, 2016 [facility] Q12H, # 60 tab, 0 Refill(s) 24 HR 25 mg=1 Active Metoprolol tab, PO, 2016 Tartrate 25 MG Q12H, # 60 Extended tab, 0 Release Tablet Refill(s) [Toprol] glimepiride 1 mg, No Longer Route: PO, Active 2016 [facility] Daily, Dosing Weight 85, kg, Start date: 11/03/16 9:00:00 CDT, Duration: 30 day, Stop date: 12/02/16 9:00:00 CDT Furosemide 40 40 mg, 1 Inactive MG Oral Tablet tab, Route: 2016 [facility] PO, Drug form: TAB, Daily, Dosing Weight 85, kg, Start date: 11/03/16 9:00:00 CDT, Duration: 30 day, Stop date: 12/02/16 9:00:00 CDTNotes: (Same as: Lasix) May cause GI upset. Give with food or milk. Losartan 50 mg, 1 Inactive tab, Route: 2016 [facility] PO, Drug form: TAB, Daily, Dosing Weight 85, kg, Start date: 11/03/16 9:00:00 CDT, Duration: 30 day, Stop date: 12/02/16 9:00:00 CDTNotes: (Same as: Cozaar) Glucotrol 5 mg, [address] tab, Route: 2016 [facility] PO, Drug form: TAB, Daily, Start date: 11/03/16 9:00:00 CDT, Duration: 30 day, Stop date: 12/02/16 9:00:00 CDTNotes: (Same as: Glucotrol) 30 min before meals. Eliquis 2.5 mg, 1 Inactive 11/03[facility] tab, Route: 2016 [facility] PO, Drug form: TAB, Q12H, Dosing Weight 83.636, kg, Start date: 11/03/16 9:00:00 CDT, Duration: 30 day, Stop date: 12/02/16 21:00:00 CDTNotes: Same as: Eliquis tamsulosin 0.4 mg, 1 Inactive 11/03[facility] cap, Route: 2016 [facility] PO, Drug form: CAP, Daily, Dosing Weight 85, kg, Start date: 11/03/16 9:00:00 CDT, Duration: 30 day, Stop date: 12/02/16 9:00:00 CDTNotes: (Same As: Flomax) "Do Not Crush" Aldactone 25 mg, 1 Inactive 11/03[facility] tab, Route: 2016 [facility] PO, Drug form: TAB, Daily, Dosing Weight 85, kg, Start date: 11/03/16 9:00:00 CDT, Duration: 30 day, Stop date: 12/02/16 9:00:00 CDTNotes: (Same As: Aldactone) Synthroid 200 Inactive 11/03[facility] microgram, 2016 [facility] 2 tab, Route: PO, Drug form: TAB, Q630AM, Dosing Weight 85, kg, Start date: 11/03/16 6:30:00 CDT, Duration: 30 day, Stop date: 12/02/16 6:30:00 CDTNotes: Take 1 hour before or 2 hours after meal; Enteral feeds may interefere with the absorption of this medication. (Same as:Levothro id, Synthroid) Insulin, 3 unit, No Longer Aspart, Human 0.03 mL, Active 2016 [facility] Route: SUB-Q, Drug form: SOLN, Bedtime, [...] Glucagon 1 mg, Inactive Route: IM, 2016 [facility] PRN, Dosing Weight 83.636, kg, PRN Blood Glucose Results, Start date: 11/02/16 21:49:00 CDT, Duration: 30 day, Stop date: 12/02/16 21:48:00 CDT Dextrose 50% 25 mL, Inactive Syringe Route: IVP, 2016 [facility] Dosing Weight 83.636, kg, PRN, PRN Blood Glucose Results, Start date: 11/02/16 21:49:00 CDT, Duration: 30 day, Stop date: 12/02/16 21:48:00 CDT Morphine 2 mg, 1 mL, No Longer Route: IVP, Active 2016 [facility] Drug form: INJ, Q4H, Dosing Weight 83.636, kg, PRN Pain Score 7-10, Start date: 11/02/16 21:45:00 CDT, Duration: 30 day, Stop date: 12/02/16 21:44:00 CDTNotes: (Same as:MORPhine Sulfate) Benadryl 25 mg, 1 Inactive tab, Route: 2016 [facility] PO, Drug form: TAB, ONCE, Dosing Weight 83.636, kg, PRN Insomnia, Start date: 11/02/16 21:43:00 CDT Lipitor 10 mg, 1 No Longer tab, Route: Active 2016 [facility] PO, Drug form: TAB, Bedtime, Dosing Weight 85, kg, Start date: 11/02/16 21:00:00 CDT, Duration: 30 day, Stop date: 12/01/16 21:00:00 CDTNotes: (Same As: Lipitor) Ranexa 1,000 mg, 2 No Longer tab, Route: Active 2016 [facility] PO, Drug form: TAB, Q12H, Dosing Weight 85, kg, Start date: 11/02/16 21:00:00 CDT, Duration: 30 day, Stop date: 12/02/16 9:00:00 CDTNotes: Same as Ranexa "Do Not Crush" Prilosec 20 mg, Inactive Route: PO, 2016 [facility] Drug form: DRC, Bedtime, Dosing Weight 85, kg, Start date: 11/02/16 21:00:00 CDT, Duration: 30 day, Stop date: 12/01/16 21:00:00 CDT 24 HR 25 mg, 1 No Longer Metoprolol tab, Route: Active 2016 [facility] Tartrate 25 MG PO, Drug Extended form: Release Tablet ERTAB, [Toprol] Q12H, Start date: 11/02/16 21:00:00 CDT, Duration: 30 day, Stop date: 12/02/16 9:00:00 CDTNotes: (Same as: Toprol XL) Do Not Crush Hydralazine 10 mg, 0.5 No Longer mL, Route: Active 2016 [facility] IVP, Drug form: INJ, Q4H, Dosing Weight 85, kg, PRN Hypertensio n, Start date: 11/02/16 16:38:00 CDT, Duration: 30 day, Stop date: 12/02/16 16:37:00 CDTNotes: (Same as: Apresoline) Push over 5 minutes clopidogrel 75 mg, 1 No Longer tab, Route: Active 2016 [facility] PO, Drug form: TAB, Daily, Dosing Weight 85, kg, Start date: 11/02/16 16:30:00 CDT, Duration: 30 day, Stop date: 12/02/16 9:00:00 CDTNotes: (Same As: Plavix) aspirin 81 mg 81 mg, 1 No Longer tablet, enteric tab, Route: Active 2016 [facility] coated PO, Drug form: ECTAB, Daily, Dosing Weight 85, kg, Start date: 11/02/16 16:30:00 CDT, Duration: 30 day, Stop date: 12/02/16 9:00:00 CDTNotes: Do not crush or chew. (Same As: Ecotrin) Protonix 40 mg, 1 No Longer tab, Route: Active 2016 [facility] PO, Drug form: ECTAB, Before Dinner, Start date: 11/02/16 16:30:00 CDT, Duration: 30 day, Stop date: 12/01/16 16:30:00 CDTNotes: Tablet should not be chewed or crushed. (Same as: Protonix) 24 HR 25 mg, 1 Inactive Metoprolol tab, Route: 2016 [facility] Tartrate 25 MG PO, Drug Extended form: Release Tablet ERTAB, [Toprol] Daily, Start date: 11/02/16 16:30:00 CDT, Duration: 30 day, Stop date: 12/02/16 9:00:00 CDTNotes: (Same as: Toprol XL) Do Not Crush 24 HR 12.5 mg, No Longer Metoprolol PO, Daily, Active 2016 [facility] Tartrate 25 MG 0 Refill(s) Extended Release Tablet [Toprol] Insulin, 5 unit, No Longer Aspart, Human 0.05 mL, Active 2016 [facility] Route: SUB-Q, Drug form: SOLN, TID-Before [...] mg, No Longer Route: IM, Active 2016 [facility] Drug form: PDR/INJ, PRN, Dosing Weight 85, kg, PRN Blood Glucose Results, Start date: 11/02/16 14:36:00 CDT, Duration: 30 day, Stop date: 12/02/16 14:35:00 CDT Dextrose 50% 25 gm, 50 No Longer Syringe mL, Route: Active 2016 [facility] IVP, Drug Form: INJ, Dosing Weight 85, kg, PRN, PRN Blood Glucose Results, Start date: 11/02/16 14:36:00 CDT, Duration: 30 day, Stop date: 12/02/16 14:35:00 CDT Metoprolol 5 mg, 5 mL, No Longer Route: IVP, Active 2016 [facility] Drug form: INJ, Q4H, Dosing Weight 85, kg, PRN Tachycardia , Start date: 11/02/16 14:28:00 CDT, Duration: 30 day, Stop date: 12/02/16 14:27:00 CDTNotes: (Same as: Lopressor) Push over 2 minutes Lasix 1 tab(s) orally Active 40 mg orally [place] 09/25/ Cardiovasc once a day 2016 [facility] atorvastatin 10 10 mg=1 Active MG Oral Tablet tab, PO, 2015 [facility] [Lipitor] Bedtime carvedilol 6.25 mg=2 Active 3.125 mg oral tab, PO, 2015 tablet BID, 0 Refill(s) Aspirin 81 MG 81 mg, 1 No Longer Enteric Coated tab, Route: Active 2015 [facility] Tablet PO, Drug form: ECTAB, Daily, Dosing Weight 83.455, kg, Start date: 12/30/15 9:00:00 CDT, Duration: 30 day, Stop date: 01/28/16 9:00:00 CDTNotes: Do not crush or chew. (Same As: Ecotrin) Furosemide 40 40 mg, 1 Inactive MG Oral Tablet tab, Route: 2015 [facility] PO, Drug form: TAB, Daily, Dosing Weight 83.455, kg, Start date: 12/30/15 9:00:00 CDT, Duration: 30 day, Stop date: 01/28/16 9:00:00 CDTNotes: (Same as: Lasix) May cause GI upset. Give with food or milk. Aspirin 325 MG 325 mg, 1 Inactive Enteric Coated tab, Route: 2015 [facility] Tablet PO, Drug form: TAB, Daily, Dosing Weight 83.455, kg, Start date: 12/30/15 9:00:00 CDT, Duration: 30 day, Stop date: 01/28/16 9:00:00 CDTNotes: Take with food. clopidogrel 75 mg, No Longer Route: PO, Active 2015 [facility] Drug form: TAB, Daily, Dosing Weight 83.455, kg, Start date: 12/30/15 9:00:00 CDT, Duration: 30 day, Stop date: 01/28/16 9:00:00 CDT Losartan 50 mg, 1 Inactive tab, Route: 2015 [facility] PO, Drug form: TAB, Daily, Dosing Weight 83.455, kg, Start date: 12/30/15 9:00:00 CDT, Duration: 30 day, Stop date: 01/28/16 9:00:00 CDTNotes: (Same as: Zohra) Synthroid 200 Inactive microgram, 2015 [facility] 2 tab, Route: PO, Drug form: TAB, Daily, Dosing Weight 83.455, kg, Start date: 12/30/15 6:30:00 CDT, Duration: 30 day, Stop date: 01/28/16 6:30:00 CDTNotes: Take 1 hour before or 2 hours after meal; Enteral feeds may interefere with the absorption of this medication. (Same as:Levothro id, Synthroid) Coreg 6.25 mg, 2 No Longer tab, Route: Active 2015 [facility] PO, Drug form: TAB, BID, Dosing Weight 83.455, kg, Start date: 12/29/15 21:00:00 CDT, Duration: 30 day, Stop date: 01/28/16 9:00:00 CDTNotes: Give with food. (Same As: Coreg) Lipitor 40 mg, 1 Inactive tab, Route: 2015 [facility] PO, Drug form: TAB, Bedtime, Start date: 12/29/15 21:00:00 CDT, Duration: 30 day, Stop date: 01/27/16 21:00:00 CDTNotes: (Same as: Lipitor) rosuvastatin 10 rosuvastati No Longer mg tab n 10 mg Active 2015 [facility] tab, 20 mg, 2 tab, Drug form: MISC, Route: PO, Bedtime, 12/29/15 21:00:00 CDT, Duration: 30 day, Stop date: 01/27/16 21:00:00 CDTNotes: (Same as: Crestor) Crestor 20 mg, Inactive Route: PO, 2015 [facility] Drug form: TAB, Bedtime, Dosing Weight 83.455, kg, Start date: 12/29/15 21:00:00 CDT, Duration: 30 day, Stop date: 01/27/16 21:00:00 CDT Ranexa 1,000 mg, 2 No Longer tab, Route: Active 2015 [facility] PO, Drug form: TAB, BID, Dosing Weight 83.455, kg, Start date: 12/29/15 21:00:00 CDT, Duration: 30 day, Stop date: 01/28/16 9:00:00 CDTNotes: Same as Ranexa "Do Not Crush" Prilosec 20 mg, Inactive Route: PO, 2015 [facility] Drug form: DRC, Bedtime, Dosing Weight 83.455, kg, Start date: 12/29/15 21:00:00 CDT, Duration: 30 day, Stop date: 01/27/16 21:00:00 CDT tamsulosin 0.4 mg, 1 No Longer cap, Route: Active 2015 [facility] PO, Drug form: CAP, Daily, Dosing Weight 83.455, kg, Start date: 12/29/15 18:00:00 CDT, Duration: 30 day, Stop date: 01/27/16 18:00:00 CDTNotes: (Same As: Flomax) "Do Not Crush" Aldactone 25 mg, 1 No Longer tab, Route: Active 2015 [facility] PO, Drug form: TAB, BID, Dosing Weight 83.455, kg, Start date: 12/29/15 17:00:00 CDT, Duration: 30 day, Stop date: 01/28/16 9:00:00 CDTNotes: (Same As: Aldactone) glimepiride 1 mg, 0.5 No Longer tab, Route: Active 2015 [facility] PO, Drug form: TAB, BID-Meals, Dosing Weight 83.455, kg, Start date: 12/29/15 17:00:00 CDT, Duration: 30 day, Stop date: 01/28/16 8:00:00 CDTNotes: (Same as: Amaryl) Protonix 40 mg, 1 No Longer tab, Route: Active 2015 [facility] PO, Drug form: ECTAB, Before Dinner, Start date: 12/29/15 16:30:00 CDT, Duration: 30 day, Stop date: 01/27/16 16:30:00 CDTNotes: Tablet should not be chewed or crushed. (Same as: Protonix) Acetaminophen 1 tab, No Longer 325 MG / Route: PO, Active 2015 [facility] Hydrocodone Drug Form: Bitartrate 7.5 TAB, Dosing MG Oral Tablet Weight [[place] 7.5/325] 83.455, kg, Q6H, PRN Pain Score 4-6, Start date: 12/29/15 16:20:00 CDT, Duration: 30 day, Stop date: 01/28/16 16:19:00 CDTNotes: Same as [place] 325-7.5mg Do not exceed 4gm/day of acetaminoph en. Nitroglycerin 0.4 mg, 1 No Longer tab, Route: Active 2015 [facility] SL, Drug form: TAB, Q5Min, Dosing Weight 83.455, kg, PRN Chest Pain, Start date: 12/29/15 15:39:00 CDT, Duration: 30 day, Stop date: 01/28/16 15:38:00 CDTNotes: (Same as:Nitroqui ck, Nitrostat) "Do Not Crush" Sublingual tablet Famotidine 20 mg, 1 No Longer tab, Route: Active 2015 [facility] PO, Drug form: TAB, Q12H, Dosing Weight 83.455, kg, PRN Heartburn, Start date: 12/29/15 15:39:00 CDT, Duration: 30 day, Stop date: 01/28/16 15:38:00 CDTNotes: (Same as: Pepcid) Nitroglycerin 0.4 mg, Inactive Route: 2015 [facility] Transdermal , PRN, Dosing Weight 83.455, kg, PRN Abnormal Lab Result, Start date: 12/29/15 15:36:00 CDT, Duration: 30 day, Stop date: 01/28/16 15:35:00 CDT Insulin, 4 unit, No Longer Aspart, Human 0.04 mL, Active 2015 [facility] Route: SUB-Q, Drug form: SOLN, Bedtime, [...] mg, No Longer Route: IM, Active 2015 [facility] Drug form: PDR/INJ, PRN, Dosing Weight 83.455, kg, PRN Blood Glucose Results, Start date: 12/29/15 14:46:00 CDT, Duration: 30 day, Stop date: 01/28/16 14:45:00 CDT Dextrose 50% 25 gm, 50 No Longer Syringe mL, Route: Active 2015 [facility] IVP, Drug Form: INJ, Dosing Weight 83.455, kg, PRN, PRN Blood Glucose Results, Start date: 12/29/15 14:46:00 CDT, Duration: 30 day, Stop date: 01/28/16 14:45:00 CDT Acetaminophen 650 mg, 2 No Longer tab, Route: Active 2015 [facility] PO, Drug form: TAB, Q6H, Dosing Weight 83.455, kg, PRN Pain Score 1-3, Start date: 12/29/15 12:43:00 CDT, Duration: 30 day, Stop date: 01/28/16 12:42:00 CDTNotes: Do not exceed 4 gm/day. (Same as: Tylenol) Sodium Chloride 600 mL, Inactive 0.154 MEQ/ML Rate: 100 2015 [facility] Injectable ml/hr, Solution Infuse over: 6 hr, Route: IV, Dosing Weight 83.455 kg, Total Volume: 600, Priority: NOW, Start date: 12/29/15 9:38:00 CDT, Stop date: 12/29/15 21:37:00 CDT Plavix 75 mg, 1 No Longer tab, Route: Active 2015 [facility] PO, Drug form: TAB, Daily, Dosing Weight 83.455, kg, Priority: NOW, Start date: 12/29/15 9:09:00 CDT, Duration: 30 day, Stop date: 01/28/16 9:00:00 CDTNotes: (Same As: Plavix) Aspirin 325 MG 325 mg, 1 Inactive Enteric Coated tab, Route: 2015 [facility] Tablet PO, Daily, Dosing Weight 83.455, kg, Priority: NOW, Start date: 12/29/15 9:09:00 CDT, Duration: 30 day, Stop date: 01/28/16 9:00:00 CDT Streptococcus 0.5 mL, Inactive pneumoniae Route: IM, 2015 [facility] serotype 1 Drug Form: capsular INJ, Daily, antigen Start date: diphtheria 12/29/15 [id number] protein 9:00:00 conjugate CDT, vaccine / Duration: 1 Streptococcus doses or pneumoniae times, Stop serotype 14 date: capsular 12/29/15 antigen 9:00:00 diphtheria CDTNotes: [id number] protein Lightly conjugate roll vial vaccine / (DO NOT Streptococcus SHAKE) pneumoniae before serotype 18C administrat capsular ion. (Same antigen d as: Prevnar 13) glimepiride 1 mg, PO, Active BID-Meals, 2015 [facility] 0 Refill(s) Saline Flush 10 ml, No Longer 0.9% Route: IVP, Active 2015 [facility] Drug Form: INJ, Dosing Weight 83.455, kg, Q12H, Start date: 12/28/15 21:00:00 CDT, Duration: 30 day, Stop date: 01/27/16 9:00:00 CDTNotes: (Same as: BD Posiflush) Zofran 4 mg, 2 mL, No Longer Route: IVP, 2015 [facility] Drug form: INJ, Q8H, Dosing Weight 84.716, kg, PRN as needed for nausea/vomi ting, Start date: 12/28/15 19:06:00 CDT, Duration: 30 day, Stop date: 01/27/16 19:05:00 CDTNotes: (Same as: Zofran) MEDICATION WASTE Product Size: 4 mg Product Wasted: ___ mg Saline Flush 10 ml, No Longer 0.9% Route: IVP, Active 2015 [facility] Drug Form: INJ, Dosing Weight 83.455, [...] Longer unit/kg Bolus PRN, 4,400 Active 2015 [facility] (Heparin Dosing unit, 4.4 Weight) mL, Drug form: INJ, PRN, Heparin Protocol, Start date: 12/28/15 16:59:00 CDT Stop date: 01/27/16 16:58:00 CDT, 30 day Heparin - one 4,000 unit, Inactive time bolus for 4 mL, 2015 [facility] Route: IV, Drug form: INJ, ONCE, Dosing Weight 84.716, kg, Priority: STAT, Start date: 12/28/15 16:59:00 CDT, Stop date: 12/28/15 16:59:00 CDT Aspirin 325 mg, 1 Inactive tab, Route: 2015 [facility] PO, Drug form: TAB, ONCE, Dosing Weight 84.716, kg, Priority: STAT, Start date: 12/28/15 16:29:00 CDT, Stop date: 12/28/15 16:29:00 CDTNotes: Take with food. Aspirin 81 MG 81 mg=1 Active [place] [facility] Coated tab, PO, 2014 [facility] Tablet Daily, 0 Center Refill(s) clopidogrel 75 75 mg=1 Active [place] mg oral tablet tab, PO, 2014 [facility] [...] es: (Same as: Mag-Ox 400) Magnesium oxide [id number] elemental magnesium Dose=____mg magnesium oxide (___mg elemental [...] c) normal saline 1,000 mL, No Longer [place] 0.9% IV 1,000 Rate: 75 Active 2014 [facility] mL ml/hr, Center Infuse over: 13.3 hr, Route: IV, Dosing Weight 85 kg, Total Volume: 1,000, Start date: 05/19/15 23:08:00, Duration: 30 day, Stop date: 06/18/15 23:07:00 Plavix 300 mg, 1 Inactive [place] tab, Route: 2014 [facility] PO, Drug Center form: TAB, ONCE, Dosing Weight 85, kg, Priority: Within 4 hours, Start date: 05/19/15 12:39:00, Duration: 1 doses or times, Stop date: 05/19/15 12:39:00Not es: ( Same as: Plavix) Miralax 17 gm, 1 No Longer [place] pkt, Route: Active 2014 [facility] PO, Drug Center form: PWDR, Daily, Dosing Weight 85, kg, Priority: NOW, Start date: 05/18/15 16:37:00, Duration: 30 day, Stop date: 06/17/15 9:00:00Note s: Dissolve in 8 oz of water or juice. (Same as: Miralax) sennosides, INTERMEDIATE 8.6 mg, 1 No Longer [place] tab, Route: Active 2014 [facility] PO, Drug Center Form: TAB, Dosing Weight 85, kg, Daily, NOW, Start date: 05/18/15 16:37:00, Duration: 30 day, Stop date: 06/17/15 9:00:00Note s: (Same as: Senokot) Docusate 100 mg, Inactive [place] Route: PO, 2014 [facility] Drug form: Center CAP, Daily, Dosing Weight 85, kg, Priority: NOW, Start date: 05/18/15 16:37:00, Duration: 30 day, Stop date: 06/17/15 9:00:00 Lipitor 40 mg, 2 No Longer [place] tab, Route: Active 2014 [facility] PO, Drug Center form: TAB, Bedtime, Start date: 05/17/15 21:00:00, Duration: 30 day, Stop date: 06/15/15 21:00:00Not es: (Same As: Lipitor) Crestor 20 mg, Inactive [place] Route: PO, 2014 [facility] Drug form: Center TAB, Bedtime, Dosing Weight 85, kg, Start date: 05/17/15 21:00:00, Duration: 30 day, Stop date: 06/15/15 21:00:00 Prilosec 20 mg, Inactive [place] Route: PO, 2014 [facility] Drug form: Center DRC, Bedtime, Dosing Weight 85, kg, Start date: 05/17/15 21:00:00, Duration: 30 day, Stop date: 06/15/15 21:00:00 Docusate Sodium 100 mg, 1 No Longer [place] 100 MG Oral cap, Route: Active 2014 [facility] Capsule PO, Drug Center [Colace] form: CAP, BID, Dosing Weight 85, kg, Start date: 05/17/15 17:00:00, Duration: 30 day, Stop date: 06/16/15 9:00:00Note s: (Same as: Colace) (Do Not Crush) Protonix 40 mg, 1 No Longer [place] tab, Route: Active 2014 [facility] PO, Drug Center form: ECTAB, Before Dinner, Start date: 05/17/15 16:30:00, Duration: 30 day, Stop date: 06/15/15 16:30:00Not es: Tablet should not be chewed or crushed. (Same as: Protonix) Aspirin 81 mg, 1 No Longer [place] tab, Route: Active 2014 [facility] PO, Drug Center form: ECTAB, Daily, Dosing Weight 85, kg, Start date: 05/17/15 9:00:00, Duration: 30 day, Stop date: 06/15/15 9:00:00Note s: Do not crush or chew. (Same As: Ecotrin) Furosemide 40 40 mg, 1 No Longer [place] MG Oral Tablet tab, Route: Active 2014 [facility] PO, Drug Center form: TAB, Daily, Dosing Weight 85, kg, Start date: 05/17/15 9:00:00, Duration: 30 day, Stop date: 06/15/15 9:00:00Note s: (Same as: Lasix) May cause GI upset. Give with food or milk. Aldactone 25 mg, 1 No Longer [place] tab, Route: Active 2014 [facility] PO, Drug Center form: TAB, BID, Dosing Weight 85, kg, Start date: 05/17/15 9:00:00, Duration: 30 day, Stop date: 06/15/15 17:00:00Not es: (Same As: Aldactone) Ranexa 1,000 mg, 2 No Longer [place] tab, Route: Active 2014 [facility] PO, [facility] Center form: TAB, BID, Dosing Weight 85, kg, Start date: 05/17/15 9:00:00, Duration: 30 day, Stop date: 06/15/15 17:00:00Not es: Same as Ranexa "Do Not Crush" Losartan 50 mg, 1 No Longer [facility] tab, Route: Active 2014 [facility] PO, Drug Center form: TAB, Daily, Dosing Weight 85, kg, Start date: 05/17/15 9:00:00, Duration: 30 day, Stop date: 06/15/15 9:00:00Note s: (Same as: Cozaar) Coreg 6.25 mg, 1 No Longer [facility] tab, Route: Active 2014 [facility] PO, Drug Center form: TAB, BID, Dosing Weight 85, kg, Start date: 05/17/15 9:00:00, Duration: 30 day, Stop date: 06/15/15 17:00:00Not es: Give with food. (Same As: Coreg) tamsulosin 0.4 mg, 1 No Longer [place] cap, Route: Active 2014 [facility] PO, Drug Center form: CAP, After Breakfast, Dosing Weight 85, kg, Start date: 05/17/15 8:30:00, Duration: 30 day, Stop date: 06/15/15 8:30:00Note s: (Same As: Flomax) "Do Not Crush" Synthroid 200 No Longer [place] microgram, Active 2014 Medical 1 tab, Center [...] 30 day heparin 500 mL, No Longer [place] additive 25,000 Rate: 17.68 Active 2014 Medical unit [12 ml/hr, Center unit/kg/hr] + Infuse Premix Diluent over: 28.3 Dextrose 5% 500 hr, Route: mL IVPB, Dosing Weight 73.66 kg, Total Volume: 500 mL, Start date: 05/17/15 1:38:00, Duration: 30 day, Stop date: 06/16/15 1:37:00 Plavix 75 mg, 1 Inactive tab, Route: 2014 [facility] PO, Drug form: TAB, Daily, Dosing Weight 83.2, kg, Start date: 05/16/15 9:00:00, Duration: 30 day, Stop date: 06/14/15 9:00:00Note s: (Same As: Plavix) Plavix 600 mg, 2 Inactive tab, Route: 2014 [facility] PO, Drug form: TAB, ONCE, Dosing Weight 83.2, kg, Priority: NOW, Start date: 05/15/15 10:37:00, Duration: 1 doses or times, Stop date: 05/15/15 10:37:00Not es: ( Same as: Plavix) Insulin, 10 unit, No Longer Aspart, Human 0.1 mL, Active 2014 [facility] Route: SUB-Q, Drug form: SOLN, TID-Before [...] No Longer Syringe mL, Route: Active 2014 [facility] IVP, Drug Form: INJ, Dosing Weight 83.2, kg, PRN, PRN Blood Glucose Results, Start date: 05/14/15 11:54:00, Duration: 30 day, Stop date: 06/13/15 11:53:00 Glucagon 1 mg, No Longer Route: IM, Active 2014 [facility] Drug form: PDR/INJ, PRN, Dosing Weight 83.2, kg, PRN Blood Glucose Results, Start date: 05/14/15 11:54:00, Duration: 30 day, Stop date: 06/13/15 11:53:00 Magnesium 2 gm, 50 Inactive Sulfate mL, Route: 2014 [facility] IVPB, Drug form: INJ, ONCE, Dosing Weight 83.2, kg, Start date: 05/14/15 8:24:00, Duration: 2 hr, Stop date: 05/14/15 8:24:00 Coreg 3.125 mg, Inactive Route: PO, 2014 [facility] Drug form: TAB, Q12H, Dosing Weight 83.2, kg, hold sbp Crestor 20 mg, Inactive Route: PO, 2014 [facility] Drug form: TAB, Bedtime, Dosing Weight 83.2, kg, Start date: 05/13/15 21:00:00, Duration: 30 day, Stop date: 06/11/15 21:00:00 Lipitor 40 mg, 1 No Longer tab, Route: Active 2014 [facility] PO, Drug form: TAB, Bedtime, Start date: 05/13/15 21:00:00, Duration: 30 day, Stop date: 06/11/15 21:00:00Not es: (Same as: Lipitor) heparin sodium, 4,000 unit, Inactive porcine 5000 4 mL, 2014 UNT/ML Route: IV, Injectable Drug form: Solution INJ, ONCE, Dosing Weight 83.2, kg, Start date: 05/13/15 14:00:00, Stop date: 05/13/15 14:00:00 Lasix 20 mg, 2 Inactive mL, Route: 2014 [facility] IV, Drug form: INJ, ONCE, Dosing Weight 83.2, kg, Start date: 05/13/15 12:00:00, Stop date: 05/13/15 12:00:00Not es: (Same as: Lasix) Morphine 2 mg, 1 mL, No Longer Route: IVP, Active 2014 [facility] Drug form: INJ, Q4H, Dosing Weight 83.2, kg, PRN Pain Score 7-10, Start date: 05/13/15 10:19:00, Duration: 30 day, Stop date: 06/12/15 10:18:00Not es: (Same as:MORPhine Sulfate) Sodium Chloride 250 mL, 250 Inactive 0.154 MEQ/ML ml/hr, 2014 [facility] Injectable Infuse Solution Over: 1 hr, Route: IV, 250, Drug form: INJ, ONCE, Dosing Weight 83.2 kg, Start date: 05/13/15 9:58:00, Duration: 1 doses or times, Stop date: 05/13/15 9:58:00 Flomax 0.4 mg, 1 No Longer cap, Route: Active 2014 [facility] PO, Drug form: CAP, Daily, Dosing Weight 84.659, kg, Start date: 05/13/15 9:00:00, Duration: 30 day, Stop date: 06/11/15 9:00:00Note s: (Same As: Flomax) "Do Not Crush" aspirin 325 mg 325 mg, 1 No Longer tablet tab, Route: Active 2014 [facility] PO, Drug form: TAB, Daily, Start date: 05/13/15 9:00:00, Duration: 30 day, Stop date: 06/11/15 9:00:00Note s: Take with food. Thyroxine 112 No Longer microgram, Active 2014 [facility] 1 tab, Route: PO, Drug form: TAB, Q630AM, Dosing Weight 84.659, kg, Start date: 05/13/15 6:30:00, Duration: 30 day, Stop date: 06/11/15 6:30:00Note s: Take 1 hour before or 2 hours after meal; Enteral feeds may interefere with the absorption of this medication. (Same as:Levothro id) Ranexa 1,000 mg, 2 No Longer tab, Route: Active 2014 [facility] PO, Drug form: TAB, BID, Dosing Weight 84.659, kg, Start date: 05/12/15 22:00:00, Duration: 30 day, Stop date: 06/11/15 21:00:00Not es: Same as Ranexa "Do Not Crush" Coreg 6.25 mg, 2 No Longer tab, Route: Active 2014 [facility] PO, Drug form: TAB, BID, Dosing Weight 84.659, kg, Start date: 05/12/15 21:00:00, Duration: 30 day, Stop date: 06/11/15 9:00:00Note s: Give with food. (Same As: Coreg) Lipitor 20 mg, 2 No Longer tab, Route: Active 2014 [facility] PO, Drug form: TAB, Bedtime, Start date: 05/12/15 21:00:00, Duration: 30 day, Stop date: 06/10/15 21:00:00Not es: (Same As: Lipitor) Crestor 10 mg, Inactive Route: PO, 2014 Bedtime, Dosing Weight 84.659, kg, Start date: 05/12/15 21:00:00, Duration: 30 day, Stop date: 06/10/15 21:00:00 Insulin, 6 unit, No Longer Aspart, Human 0.06 mL, Active 2014 [facility] Route: SUB-Q, Drug form: SOLN, Sliding [...] mg, No Longer Route: IM, Active 2014 [facility] Drug form: PDR/INJ, PRN, Dosing Weight 83.2, kg, PRN Blood Glucose Results, Start date: 05/12/15 20:52:00, Duration: 30 day, Stop date: 06/11/15 20:51:00 Dextrose 50% 25 gm, 50 No Longer Syringe mL, Route: Active 2014 [facility] IVP, Drug Form: INJ, Dosing Weight 83.2, kg, PRN, PRN Blood Glucose Results, Start date: 05/12/15 20:52:00, Duration: 30 day, Stop date: 06/11/15 20:51:00 Trazodone 50 mg, 1 No Longer tab, Route: Active 2014 [facility] PO, Drug form: TAB, Bedtime, Dosing Weight 83.2, kg, PRN Sleep, Start date: 05/12/15 20:43:00, Duration: 30 day, Stop date: 06/11/15 20:42:00, ..Notes: (Same As: Julián) Nitroglycerin 0.4 mg, 1 No Longer tab, Route: Active 2014 [facility] SL, Drug form: TAB, Q5Min, Dosing Weight 83.2, kg, PRN Chest Pain, Start date: 05/12/15 20:37:00, Duration: 3 doses or times, Stop date: Limited # of timesNotes: (Same as:Nitroqui ck, Nitrostat) "Do Not Crush" Sublingual tablet Nitroglycerin 0.4 mg, On Hold Transdermal 2014 [facility] , PRN, 0 Refill(s) Rosuvastatin 20 mg=1 On Hold calcium 20 MG tab, PO, 2014 [facility] Oral Tablet Bedtime, # [Crestor] 30 tab, 0 Refill(s) Levothyroxine 200 On Hold Sodium 0.2 MG microgram=1 2014 [facility] Oral Tablet tab, PO, [Synthroid] Daily, [...] Longer additive 25,000 Rate: 17.31 Active 2014 [facility] unit [12 ml/hr, unit/kg/hr] + Infuse Premix Diluent over: 28.9 Dextrose 5% 500 hr, Route: mL IV, Dosing Weight 72.14 kg, Total Volume: 500 mL, Start date: 05/12/15 16:57:00, Duration: 30 day, Stop date: 06/11/15 16:56:00 heparin sodium, 4,000 unit, Inactive porcine 5000 4 mL, 2014 [facility] UNT/ML Route: IV, Injectable Drug form: Solution INJ, ONCE, Dosing Weight 81.364, kg, Priority: STAT, Start date: 05/12/15 16:57:00, Stop date: 05/12/15 16:57:00 Aspirin 81 MG 324 mg, Inactive Chewable Tablet Route: PO, 2014 [facility] Drug form: CHEWTAB, ONCE, Dosing Weight 81.364, kg, Priority: STAT, Start date: 05/12/15 16:22:00, Stop date: 05/12/15 16:22:00 Aspirin 325 mg, Inactive Route: 2014 [facility] CHEW, Drug form: CHEWTAB, ONCE, Dosing Weight 81.364, kg, Priority: STAT, Start date: 05/12/15 16:20:00, Stop date: 05/12/15 16:20:00 Aspirin 324 mg, 4 Inactive tab, Route: 2014 [facility] PO, Drug form: CHEWTAB, ONCE, Dosing Weight 81.364, kg, Priority: STAT, Start date: 05/12/15 14:36:00, Stop date: 05/12/15 14:36:00Not es: Take with food. Saline Flush 10 mL, No Longer 0.9% Route: IVP, Active 2014 [facility] Drug Form: INJ, Dosing Weight 81.364, kg, PRN, PRN Line Flush, Start date: 05/12/15 14:36:00, Duration: 30 day, Stop date: 06/11/15 14:35:00Not es: (Same as: BD Posiflush) furosemide 1 tab(s) orally Active 40 mg orally ATASHBAND 06/26/ Cardiovasc once a day 2014 ular [facility] nitroglycerin 1 tab(s) sublingua Active 0.4 mg ATASHBAND 11/26/ Cardiovasc lly sublingually 2013 ular [facility] every 5 minutes Crestor 1 tab(s) orally Active 10 mg orally ATASHBAND 01/27/ Cardiovasc once a day (at 2012 ular [facility] bedtime) Ranexa 1,000 mg, 2 PO No Longer [facility] tab, Route: Active 2011 [facility] PO, Drug form: TAB, Q12H, Start date: 06/28/11 21:00:00, Duration: 30 day, Stop date: 07/28/11 9:00:00 Lipitor 10 mg, 1 PO No Longer [facility] tab, Route: Active 2011 [facility] PO, Drug form: TAB, Bedtime, Start date: 06/28/11 21:00:00, Duration: 30 day, Stop date: 07/27/11 21:00:00 lisinopril 10 mg, 1 PO No Longer [facility] tab, Route: Active 2011 [facility] PO, Drug form: TAB, Daily, Start date: 06/28/11 17:00:00, Duration: 30 day, Stop date: 07/28/11 9:00:00 glimepiride 2 mg, 1 PO No Longer [facility] tab, Route: Active 2011 [facility] PO, Drug form: TAB, BID, Start date: 06/28/11 17:00:00, Duration: 30 day, Stop date: 07/28/11 9:00:00 Lasix 20 mg, 1 PO No Longer [facility] tab, Route: Active 2011 [facility] PO, Drug form: TAB, BID, Start date: 06/28/11 17:00:00, Duration: 30 day, Stop date: 07/28/11 9:00:00 spironolactone 25 mg, 1 PO No Longer [facility] tab, Route: Active 2011 [facility] PO, Drug form: TAB, Daily, Start date: 06/28/11 17:00:00, Duration: 30 day, Stop date: 07/28/11 9:00:00 Flomax 0.4 mg, 1 PO No Longer [facility] cap, Route: Active 2011 [facility] PO, Drug form: CAP, Daily, Start date: 06/28/11 17:00:00, Duration: 30 day, Stop date: 07/28/11 9:00:00 aspirin 81 mg 81 mg, 1 PO No Longer [facility] tablet, enteric tab, Route: Active 2011 [facility] coated PO, Drug form: ECTAB, Daily, Start date: 06/28/11 17:00:00, Duration: 30 day, Stop date: 07/28/11 9:00:00 acetaminophen-t 1 tab, PO No Longer [facility] ramadol 325 Route: PO, Active 2011 [facility] mg-37.5 mg oral Drug Form: tablet TAB, Daily, Start date: 06/28/11 17:00:00, Duration: 30 day, Stop date: 07/28/11 9:00:00 cefazolin 2 gm, IVPB No Longer [facility] Route: Active 2011 [facility] IVPB, Q8H, Start date: 06/28/11 16:00:00, Duration: 2 doses or times, Stop date: 06/29/11 0:00:00 Sodium Chloride 10 mL, IVP No Longer [facility] 0.9% IV Route: IVP, Active 2011 [facility] Start date: 06/28/11 16:00:00, Duration: 30 day, Stop date: 07/28/11 8:00:00 Coreg 25 mg, 1 PO No Longer [facility] tab, Route: Active 2011 [facility] PO, Drug form: TAB, Q12H, Start date: 06/28/11 15:00:00, Duration: 30 day, Stop date: 07/28/11 9:00:00 nitroglycerin 0.4 mg, 1 SL No Longer [facility] 0.4 mg tab, Route: Active 2011 [facility] sublingual SL, Drug tablet form: TAB, PRN, PRN Chest Pain, Start date: 06/28/11 13:33:00, Duration: 30 day, Stop date: 07/28/11 13:32:00 acetaminophen 500 mg, 1 PO No Longer [facility] tab, Route: Active 2011 [facility] PO, Drug form: TAB, Q4H, PRN Pain, Start date: 06/28/11 11:28:00, Duration: 30 day, Stop date: 07/28/11 11:27:00 acetaminophen-h 2 tab, PO No Longer [facility] ydrocodone 325 Route: PO, Active 2011 [facility] mg-5 mg oral Drug Form: tablet TAB, Q4H, PRN Pain, Start date: 06/28/11 11:28:00, Duration: 30 day, Stop date: 07/28/11 11:27:00 morphine 2 mg, 1 mL, IV No Longer [facility] Sulfate Route: IV, Active 2011 [facility] Drug form: INJ, Q2H, PRN Severe Pain, Start date: 06/28/11 11:28:00, Duration: 30 day, Stop date: 07/28/11 11:27:00 Xanax 0.25 mg, 1 PO No Longer [facility] tab, Route: Active 2011 [facility] PO, Drug form: TAB, Q8H, PRN Anxiety, Start date: 06/28/11 11:28:00, Duration: 30 day, Stop date: 07/28/11 11:27:00 Zofran 4 mg, 2 mL, IVP No Longer [facility] Route: IVP, Active 2011 [facility] Drug form: INJ, Q8H, PRN Nausea & Vomiting, Start date: 06/28/11 11:28:00, Duration: 30 day, Stop date: 07/28/11 11:27:00 Restoril 15 mg, 1 PO No Longer [facility] cap, Route: Active 2011 [facility] PO, Drug form: CAP, Bedtime, PRN Insomnia, Start date: 06/28/11 11:28:00, Duration: 30 day, Stop date: 07/28/11 11:27:00 Sodium Chloride 10 mL, IVP No Longer [facility] 0.9% IV Route: IVP, Active 2011 [facility] PRN, Line Flush, Start date: 06/28/11 11:26:00, Duration: 30 day, Stop date: 07/28/11 11:25:00 multivitamin 1 tab, PO No Longer [facility] Route: PO, Active 2011 [facility] Drug Form: TAB, [id number], Start date: 06/28/11 6:00:00, Duration: 4 doses or times, Stop date: 06/29/11 18:00:00 cefazolin 1 gm, IVPB No Longer [facility] Route: Active 2011 [facility] IVPB, PRE OP, Start date: 06/28/11 5:00:00, Duration: 12 hr, Stop date: 06/28/11 16:59:00 Sodium Chloride 1,000 mL, IV No Longer [facility] 0.45% IV 1,000 Rate: 75 Active 2011 [facility] mL ml/hr, Infuse over: 13.3 hr, Route: IV, Total Volume: 1,000, Start date: 06/28/11 5:00:00, Duration: 24 hr, Stop date: 06/29/11 4:59:00 lidocaine-prilo 1 appl, TOP No Longer [facility] freddie topical Route: TOP, Active 2011 [facility] ONCALL, Drug form: CRM, Start date: 06/28/11 5:00:00, Duration: 1 doses or times Valium 5 mg, 1 PO No Longer [facility] tab, Route: Active 2011 [facility] PO, Drug form: TAB, ONCALL, Start date: 06/28/11 5:00:00, Duration: 1 doses or times Benadryl 50 mg, 2 PO No Longer [facility] tab, Route: Active 2011 [facility] PO, Drug form: TAB, ONCALL, Start [...] Assoc NKDA Assertion Drug Active The allergy [place] Immunizations Immunization Date Site Status Last Comments Source Given Updated diphtheria/pertu Right completed [facility] The ssis, 8 deltoid [facility] acel/tetanus adult pneumococcal Right completed Jose 13-valent 6 deltoid [facility], vaccine [place] Results Order Name Results Value Reference Date Interpretation Comments Source Range URINE AND UA <=1.0 0.1 - 1.0 08/06 [facility] STOOL Urobilinogen mg/dL /2017 [facility] URINE AND UA RBC 1 /HPF 0 - 2 08/06 [facility] [place] URINE AND UA Mucus Few /LPF None Seen 08/06 The STOOL /LPF [place] URINE AND UA Color Yellow Yellow 08/06 [facility] *NA* (08/06/17 2:20 AM) URINE AND UA Turbidity Clear Clear 08/06 The [facility] (08/06/17 2:20 AM) URINE AND UA Spec Grav 1.006 <=1.030 08/06 The [facility] URINE AND UA Sq Epi Occasional Few /LPF 08/06 [facility] STOOL /LPF [place] URINE AND UA WBC 1 /HPF 0 - 5 08/06 [facility] The ST[facility]OL [place] URINE AND UA Nitrite Negative Negative 08/06 The STOOL [facility] (08/06/17 2:20 AM) URINE AND UA Leuk Est Negative Negative 08/06 The [facility] (08/06/17 2:20 AM) URINE AND UA pH 5.0 5.0 - 8.0 08/06 The [facility] URINE AND UA Ketones Negative Negative 08/06 The [facility] mg/dL mg/dL /2017 [facility] URINE AND UA Bili Negative Negative 08/06 The [facility] *NA* (08/06/17 2:20 AM) URINE AND UA Protein Negative Negative 08/06 The [facility] mg/dL mg/dL /2017 [facility] URINE AND UA Glucose Negative Negative 08/06 The [facility] mg/dL mg/dL [facility] URINE AND UA Blood Negative Negative 08/06 The [facility] (08/06/17 2:20 AM) CHEM PANEL A/G Ratio 1.1 0.7 - 1.6 08/06 [facility] CHEM PANEL AGAP 13.0 meq/L 10.0 - 08/06 The 20.0 [facility] CHEM PANEL Globulin 3.2 g/dL 2.7 - 4.2 08/06 The [facility] CHEM PANEL B/C Ratio 21 6 - 25 08/06 The [facility] CHEM PANEL CO2 25 meq/L 24 - 32 08/06 The [facility] CHEM PANEL Chloride Lvl 102 meq/L 95 - 109 08/06 The [facility] CHEM PANEL Potassium 4.0 meq/L 3.5 - 5.1 08/06 The Lvl [facility] CHEM PANEL Sodium Lvl 136 meq/L 135 - 145 08/06 The [facility] CHEM PANEL BUN 38 mg/dL 7 - 22 08/06 The [facility] CHEM PANEL Glucose Lvl 246 mg/dL 70 - 99 08/06 The [facility] CHEM PANEL Creatinine 1.81 mg/dL 0.50 - 08/06 The Lvl 1.40 [facility] CHEM PANEL Alk Phos 134 unit/L 39 - 136 08/06 The [facility] CHEM PANEL Bili Total 0.8 mg/dL 0.2 - 1.3 08/06 The [facility] CHEM PANEL ALT 29 unit/L 0 - 65 08/06 The [facility] CHEM PANEL Albumin Lvl 3.5 g/dL 3.5 - 5.0 08/06 The [facility] CHEM PANEL AST 28 unit/L 0 - 37 08/06 The [facility] CHEM PANEL Total 6.7 g/dL 6.4 - 8.4 08/06 The Protein [facility] CHEM PANEL Calcium Lvl 8.5 mg/dL 8.5 - 10.5 08/06 The [facility] CHEM PANEL eGFR 34 08/06 Result Comment: [...] is not recommended in the following populations: [facility] 3m2 Individuals with unstable creatinine concentrations, including [...] 23.8 pg 27.0 - 08/06 The 31.0 [facility] HEMATOLOGY RDW 18.4 % 11.5 - 08/06 The 14.5 [facility] HEMATOLOGY MPV 9.3 fL 7.4 - 10.4 08/06 The [facility] HEMATOLOGY Platelet 135 K/CMM 133 - 450 08/06 The [facility] HEMATOLOGY MCHC 31.9 g/dL 32.0 - 08/06 The 36.0 [facility] HEMATOLOGY Hct 30.4 % 42.0 - 08/06 The 54.0 [facility] HEMATOLOGY MCV 74.5 fL 80.0 - 08/06 The 94.0 [facility] HEMATOLOGY RBC 4.08 M/CMM 4.70 - 08/06 The 6.10 [facility] HEMATOLOGY Hgb 9.7 g/dL 14.0 - 08/06 The 18.0 [facility] HEMATOLOGY WBC 4.8 K/CMM 3.7 - 10.4 08/06 The [facility] HEMATOLOGY PTT 30.0 s 22.9 - 08/06 The 35.8 [facility] HEMATOLOGY PT 14.6 s 12.0 - 08/06 The 14. [facility] HEMATOLOGY INR 1.14 0.85 - 08/06 The 1.17 [facility] HEMATOLOGY Monocytes # 0.4 K/CMM 0.0 - 0.8 08/06 The [facility] HEMATOLOGY Eosinophils 0.2 K/CMM 0.0 - 0.5 08/06 The [facility] HEMATOLOGY Microcyte 1+ None Seen 08/06 The [facility] *ABN* (08/06/17 1:09 AM) HEMATOLOGY Basophils 0.5 % 0.0 - 1.0 08/06 The [facility] HEMATOLOGY Segs-Bands # 3.4 K/CMM 1.5 - 8.1 08/06 The [facility] HEMATOLOGY Lymphocytes 0.8 K/CMM 1.0 - 5.5 08/06 The # [facility] HEMATOLOGY Lymphocytes 15.8 % 20.0 - 08/06 The 40.0 [facility] HEMATOLOGY Monocytes 8.5 % 2.0 - 12.0 08/06 The [facility] HEMATOLOGY Segs 70.6 % 45.0 - 08/06 The 75.0 [facility] HEMATOLOGY Eosinophils 4.6 % 0.0 - 4.0 08/06 The [facility] Brain wo Brain wo CT HEAD WITHOUT CONTRAST 08/06 - The contrast contrast CT /2017 - [facility] CT Clinical Indication: - head trauma, plavix. [...] 1358 pg/mL <=100 05/30 ENZYMES pg/mL /2016 [facility] CARDIAC Troponin-I 0.02 ng/mL 0.00 - 05/30 EN[facility]YM[facility] 0.40 /2016 [facility] ELECTROLYT AGAP 10.8 meq/L 10.0 - 05/30 ES 20.0 [facility] ELECTROLYT A/G Ratio 1.4 0.7 - 1.6 05/30 ES [facility] ELECTROLYT B/C Ratio 15 6 - 25 05/30 ES [facility] ELECTROLYT Globulin 2.7 g/dL 2.7 - [...] is not recommended in the following populations: [facility] 3m2 Individuals with unstable creatinine concentrations, [...] Phos 89 unit/L 39 - 136 05/30 [facility] ELECTROLYT Glucose Lvl 126 mg/dL 70 - 99 05/30 [place] ELECTROLYT BUN 31 mg/dL 7 - 22 05/30 [facility] HEMATOLOGY PT 14.7 s 12.0 - 05/30 14. [facility] HEMATOLOGY INR 1.15 0.85 - 05/30 1.17 [facility] HEMATOLOGY RDW 16.9 % 11.5 - 05/30 14. [facility] HEMATOLOGY WBC 3.6 K/CMM 3.7 - 10.4 05/30 [facility] HEMATOLOGY RBC 3.64 M/CMM 4.70 - 05/30 MH 6.10 /2016 [facility] HEMATOLOGY MCH 26.1 pg 27.0 - 05/30 MH 31.0 /2016 [facility] HEMATOLOGY MCV 81.6 fL 80.0 - 05/30 MH 94.0 /2016 [facility] HEMATOLOGY Hct 29.7 % 42.0 - 05/30 MH 54.0 /2016 [facility] HEMATOLOGY MCHC 31.9 g/dL 32.0 - 05/30 MH 36.0 /2016 [facility] HEMATOLOGY Hgb 9.5 g/dL 14.0 - 05/30 MH 18.0 /2016 [facility] HEMATOLOGY Platelet 98 K/CMM 133 - 450 05/30 [facility] HEMATOLOGY MPV 9.3 fL 7.4 - 10.4 05/30 [facility] HEMATOLOGY Eosinophils 0.1 K/CMM 0.0 - 0.5 05/30 MH # /2017 [facility] HEMATOLOGY Eosinophils 1.8 % 0.0 - 4.0 05/30 /2016 [facility] HEMATOLOGY Monocytes 9.8 % 2.0 - 12.0 05/30 [facility] HEMATOLOGY Monocytes # 0.4 K/CMM 0.0 - 0.8 05/30 [facility] HEMATOLOGY Segs-Bands # 2.3 K/CMM 1.5 - 8.1 05/30 [facility] HEMATOLOGY Basophils 0.4 % 0.0 - 1.0 05/30 [facility] HEMATOLOGY Lymphocytes 24.4 % 20.0 - 05/30 MH 40.0 /2016 [facility] HEMATOLOGY Lymphocytes 0.9 K/CMM 1.0 - 5.5 05/30 MH # /2016 [facility] HEMATOLOGY Segs 63.6 % 45.0 - 05/30 75.0 [facility] Chest Chest 1view Clinical Indication: - chf; 05/30 - 1view DX DX /2016 - [facility] Comparison: December 28, 2015 Read by: [...] placement. 2. No focal infiltrates . SL: [id number] CHEM PANEL eGFR 41 11/03 Result Comment: [...] is not recommended in the following populations: [address] Individuals with unstable creatinine concentrations, including [...] Lvl 8.5 mg/dL 8.5 - 10.5 11/03 [facility] CHEM PANEL AGAP 10.9 meq/L 10.0 - 11/03 20.0 [facility] CHEM PANEL Chloride Lvl 105 meq/L 95 - 109 11/03 [place] CHEM PANEL CO2 27 meq/L 24 - 32 11/03 [facility] CHEM PANEL Sodium Lvl 139 meq/L 135 - 145 11/03 [facility] CHEM PANEL Potassium 3.9 meq/L 3.5 - 5.1 11/03 Lvl [facility] CHEM PANEL BUN 20 mg/dL 7 - 22 11/03 [facility] CHEM PANEL Glucose Lvl 165 mg/dL 70 - 99 11/03 [facility] CHEM PANEL Creatinine 1.54 mg/dL 0.50 - 11/03 Lvl 1.40 [facility] CARDIAC BNP 720 pg/mL <=100 11/03 [facility] pg/mL /2016 [facility] CHEM PANEL Phosphorus 4.1 mg/dL 2.5 - 4.5 11/03 [facility] CHEM PANEL Magnesium 1.9 mg/dL 1.8 - 2.4 11/03 Lv [facility] LIPIDS VLDL 26 11/03 [facility] [facility] LIPIDS Trig 129 mg/dL <=149 11/03 mg/dL [facility] LIPIDS HDL 32 mg/dL >=61 mg/dL 11/03 [facility] LIPIDS Chol 97 mg/dL <=199 11/03 mg/dL [facility] LIPIDS LDL 39 mg/dL <=99 mg/dL 11/03 (Calculated) [facility] LIPIDS CHD Risk 3.03 4.00 - 11/03 MH 7.30 [facility] CARDIAC Troponin-I 0.04 ng/mL 0.00 - 11/03 ENZYMES 0.40 [facility] CARDIAC Total CK 68 unit/L 11/03 ENZYMES /2016 [facility] CARDIAC Total CK 65 unit/L 11/03 ENZYMES /2016 [facility] CARDIAC Troponin-I 0.04 ng/mL 0.00 - 11/03 ENZYMES 0.40 [facility] CARDIAC BNP 626 pg/mL <=100 11/02 ENZYMES pg/mL [facility] CARDIAC Troponin-I 0.04 ng/mL 0.00 - 11/02 ENZYMES 0.40 [facility] CARDIAC Total CK 64 unit/L 11/02 ENZYMES [facility] CARDIAC Total CK 64 unit/L 11/02 ENZYMES [facility] CARDIAC Troponin-I 0.05 ng/mL 0.00 - 11/02 ENZYMES 0.40 [facility] CHEM PANEL Magnesium 1.9 mg/dL 1.8 - 2.4 11/02 Lvl [facility] CHEM PANEL B/C Ratio 13 6 - 25 11/02 [facility] CHEM PANEL AGAP 13.6 meq/L 10.0 - 11/02 20.0 [facility] CHEM PANEL Globulin 2.9 g/dL 2.7 - 4.2 11/02 [facility] CHEM PANEL A/G Ratio 1.2 0.7 - 1.6 11/02 [facility] CHEM PANEL eGFR 39 11/02 Result [...] is not recommended in the following populations: [facility] 3m2 Individuals with unstable creatinine concentrations, [...] Lvl 320 mg/dL 70 - 99 11/02 [facility] HEMATOLOGY Lymphocytes 0.9 K/CMM 1.0 - 5.5 11/02 MH # /2017 [facility] HEMATOLOGY Segs-Bands # 2.4 K/CMM 1.5 - 8.1 11/02 [facility] HEMATOLOGY Eosinophils 0.1 K/CMM 0.0 - 0.5 11/02 MH # /2017 [facility] HEMATOLOGY Monocytes # 0.3 K/CMM 0.0 - 0.8 11/02 [facility] HEMATOLOGY Segs 66.4 % 45.0 - 11/02 MH 75.0 /2016 [facility] HEMATOLOGY Lymphocytes 24.2 % 20.0 - 11/02 MH 40.0 [facility] HEMATOLOGY Monocytes 7.1 % 2.0 - 12.0 11/02 [facility] HEMATOLOGY Eosinophils 1.9 % 0.0 - 4.0 11/02 [facility] HEMATOLOGY Basophils 0.4 % 0.0 - 1.0 11/02 [facility] Platelet 97 K/CMM 133 - 450 11/02 [facility] MPV 9.8 fL 7.4 - 10.4 11/02 [facility] HEMATOLOGY RDW 13.8 % 11.5 - 11/02 MH 14.5 [facility] WBC 3.6 K/CMM 3.7 - 10.4 11/02 [facility] HEMATOLOGY RBC 3.45 M/CMM 4.70 - 11/02 MH 6.10 [facility] Hgb 10.5 g/dL 14.0 - 11/02 MH 18.0 [facility] Hct 30.8 % 42.0 - 11/02 MH 54.0 [facility] MCV 89.3 fL 80.0 - 11/02 MH 94.0 [facility] MCHC 34.2 g/dL 32.0 - 11/02 MH 36.0 [facility] MCH 30.6 pg 27.0 - 11/02 MH 31.0 [facility] Hgb A1C 7.4 % <=5.6 % 11/02 [facility] CHEM PANEL eGFR 52 12/29 Result [...] is not recommended in the following populations: [facility] 3m2 Individuals with unstable creatinine concentrations, [...] mg/dL 1.8 - 2.4 12/29 Lvl /2015 [facility] HEMATOLOGY MCV 93.2 fL 80.0 - 12/29 MH 94.0 [facility] HEMATOLOGY Platelet 106 K/CMM 133 - 450 12/29 [facility] HEMATOLOGY MPV 9.3 fL 7.4 - 10.4 12/29 /2015 [facility] HEMATOLOGY MCH 31.2 pg 27.0 - 12/29 MH 31.0 [facility] HEMATOLOGY RDW 14.7 % 11.5 - 12/29 MH 14. [facility] HEMATOLOGY MCHC 33.5 g/dL 32.0 - 12/29 MH 36.0 /2015 [facility] HEMATOLOGY WBC 4.1 K/CMM 3.7 - 10.4 12/29 /2015 [facility] HEMATOLOGY RBC 3.63 M/CMM 4.70 - 12/29 MH 6.10 /2015 [facility] HEMATOLOGY Hct 33.8 % 42.0 - 12/29 MH 54.0 /2015 [facility] HEMATOLOGY Hgb 11.3 g/dL 14.0 - 12/29 MH 18.0 [facility] HEMATOLOGY Eosinophils 0.2 K/CMM 0.0 - 0.5 12/29 MH # /2015 [facility] HEMATOLOGY Segs-Bands # 2.4 K/CMM 1.5 - 8.1 12/29 [facility] HEMATOLOGY Monocytes # 0.4 K/CMM 0.0 - 0.8 12/29 [facility] HEMATOLOGY Lymphocytes 1.1 K/CMM 1.0 - 5.5 12/29 MH # /2016 [facility] HEMATOLOGY Basophils 0.4 % 0.0 - 1.0 12/29 [facility] HEMATOLOGY Eosinophils 4.2 % 0.0 - 4.0 12/29 [facility] HEMATOLOGY Segs 58.6 % 45.0 - 12/29 MH 75.0 /2015 [facility] HEMATOLOGY Monocytes 10.3 % 2.0 - 12.0 12/29 [facility] HEMATOLOGY Lymphocytes 26.5 % 20.0 - 12/29 MH 40.0 /2015 [facility] HEMATOLOGY POC 128 s 12/28 MH Activated /2015 [facility] Clotting Time HEMATOLOGY PTT 75.4 s [...] is not recommended in the following populations: [facility] 3m2 Individuals with unstable creatinine concentrations, [...] 105 K/CMM 133 - 450 12/28 /2015 [facility] HEMATOLOGY RDW 14.6 % 11.5 - 12/28 MH 14.5 [facility] HEMATOLOGY MCH 30.7 pg 27.0 - 12/28 MH 31.0 /2015 [facility] HEMATOLOGY MCHC 33.2 g/dL 32.0 - 12/28 MH 36.0 /2015 [facility] HEMATOLOGY MPV 9.5 fL 7.4 - 10.4 12/28 [facility] HEMATOLOGY Hct 33.6 % 42.0 - 12/28 MH 54.0 /2015 [facility] HEMATOLOGY Hgb 11.2 g/dL 14.0 - 12/28 MH 18.0 /2015 [facility] HEMATOLOGY RBC 3.63 M/CMM 4.70 - 12/28 MH 6.10 /2015 [facility] HEMATOLOGY MCV 92.5 fL 80.0 - 12/28 MH 94.0 /2015 [facility] HEMATOLOGY WBC 4.3 K/CMM 3.7 - 10.4 12/28 [facility] HEMATOLOGY PTT 47.5 s 22.9 - 12/28 35.8 [facility] LIPIDS VLDL 45 12/28 [facility] LIPIDS LDL 69 mg/dL <=99 mg/dL 12/28 MH (Calculated) /2015 [facility] LIPIDS HDL 31 mg/dL >=61 mg/dL 12/28 [facility] LIPIDS CHD Risk 4.68 4.00 - 12/28 MH 7.30 [facility] LIPIDS Trig 225 mg/dL <=149 12/28 mg/dL /2015 [facility] LIPIDS Chol 145 mg/dL <=199 12/28 mg/dL /2015 [facility] CARDIAC Troponin-I 0.47 ng/mL 0.00 - 12/28 ENZYMES 0.40 /2016 [facility] CARDIAC Total CK 157 unit/L 12 - 191 12/28 ENZYMES /2015 [facility] CARDIAC CK MB Index 3.8 0.0 - 2.5 12/28 ENZYMES /2015 [facility] CARDIAC CK MB 5.9 ng/mL 0.5 - 3.6 12/28 ENZYMES /2015 [facility] HEMATOLOGY PTT 63.8 s 22.9 - 12/28 35.8 [facility] CARDIAC Troponin-I 0.71 ng/mL 0.00 - 12/28 Result ENZYMES 0.40 Comment: [facility] Critical Result(s) called to Ghazal Michael RN at 12/28/2015 20:26 by LS. Read back OK. CARDIAC Total CK 169 unit/L 12 - 191 12/28 ENZYMES [facility] CARDIAC CK MB Index 3.8 0.0 - 2.5 12/28 MH ENZYMES /2015 [facility] CARDIAC CK MB 6.5 ng/mL 0.5 - 3.6 12/28 MH ENZYMES /2015 [facility] CARDIAC CK MB Index 4.9 0.0 - 2.5 12/27 MH ENZYMES /2015 [facility] CARDIAC CK MB 8.8 ng/mL 0.5 - 3.6 12/27 MH ENZYMES [facility] CARDIAC Troponin-I 0.69 ng/mL 0.00 - 12/27 Result ENZYMES 0.40 Comment: [facility] Critical Result(s) called to Gris Caba RN at 12/28/2015 16:14 by LS. Read back OK. CARDIAC Total CK 180 unit/L 12 - 191 12/27 [facility] CARDIAC BNP 402 pg/mL <=100 12/27 ENZYMES pg/mL /2015 [facility] CHEM PANEL Lipase Lvl 73 unit/L 73 - 393 12/27 [facility] CHEM PANEL A/G Ratio 1.1 0.7 - 1.6 12/27 [facility] CHEM PANEL Globulin 3.3 g/dL 2.0 - 4.0 12/27 [facility] CHEM PANEL B/C Ratio 14 6 - 25 12/27 [facility] CHEM PANEL AGAP 9.6 meq/L 10.0 [...] is not recommended in the following populations: [facility] 3m2 Individuals with unstable creatinine concentrations, [...] BUN 21 mg/dL 7 - 22 12/27 [facility] HEMATOLOGY Eosinophils 0.1 K/CMM 0.0 - 0.5 12/27 MH # /2016 [facility] HEMATOLOGY Monocytes # 0.3 K/CMM 0.0 - 0.8 12/27 [facility] HEMATOLOGY Segs 66.2 % 45.0 - 12/27 MH 75.0 /2016 [facility] HEMATOLOGY Lymphocytes 0.9 K/CMM 1.0 - 5.5 12/27 MH # /2015 [facility] HEMATOLOGY Basophils 0.6 % 0.0 - 1.0 12/27 [facility] HEMATOLOGY Segs-Bands # 2.8 K/CMM 1.5 - 8.1 12/27 [facility] HEMATOLOGY Monocytes 7.9 % 2.0 - 12.0 12/27 [facility] Eosinophils 3.2 % 0.0 - 4.0 12/27 /2015 [facility] HEMATOLOGY Lymphocytes 22.1 % 20.0 - 12/27 MH 40.0 /2015 [facility] HEMATOLOGY INR 1.04 0.85 - 12/27 MH 1.17 /2015 [facility] HEMATOLOGY PT 13.9 s 12.0 - 12/27 MH 14.7 /2015 [facility] HEMATOLOGY Hct 36.1 % 42.0 - 12/27 MH 54.0 /2015 [facility] HEMATOLOGY Hgb 12.0 g/dL 14.0 - 12/27 MH 18.0 /2015 [facility] HEMATOLOGY RBC 3.89 M/CMM 4.70 - 12/27 MH 6.10 /2015 [facility] HEMATOLOGY MPV 9.4 fL 7.4 - 10.4 12/27 [facility] HEMATOLOGY Platelet 115 K/CMM 133 - 450 12/27 [facility] RDW 14.7 % 11.5 - 12/27 14.5 /2015 [facility] MCHC 33.1 g/dL 32.0 - 12/27 MH 36.0 /2015 [facility] MCV 92.8 fL 80.0 - 12/27 94.0 /2015 [facility] MCH 30.7 pg 27.0 - 12/27 MH 31.0 /2015 [facility] WBC 4.2 K/CMM 3.7 - 10.4 12/27 [facility] Chest Chest 1view Clinical Indication: Left-sided chest pain 12/27 - 1view DX DX - [facility] Comparison: 05/12/2015 Read by: Edna Schrader [...] IMPRESSION: No acute infiltrates or effusions. SL: [id number] CHEM PANEL Phosphorus 3.7 mg/dL 2.5 - 4.5 05/22 [facility] /[address] [place] [address] CHEM PANEL Magnesium 2.1 mg/dL 1.8 - 2.4 05/22 [facility] CHEM PANEL eGFR 49 05/22 Result Comment: The eGFR is calculated using the CKD-EPI formula. In most young, healthy individuals the eGFR will be >90 mL/ min/1.73m2. The eGFR declines with age. An eGFR of 60-89 may be normal in [facility] mL/min/1.7 /2014 some populations, particularly the elderly, for whom the CKD-EPI formula has not been extensively validated. Use of the eGFR is not recommended in the following populations: [address] Individuals with unstable creatinine concentrations, including [...] Lvl 8.2 mg/dL 8.5 - 10.5 05/22 [facility] CHEM PANEL Creatinine 1.35 mg/dL 0.50 - 05/22 [facility] Lvl 1.40 [facility] CHEM PANEL Chloride Lvl 108 meq/L 95 - 109 05/22 [facility] CHEM PANEL CO2 26 meq/L 24 - 32 05/22 [facility] CHEM PANEL Sodium Lvl 141 meq/L 135 - 145 05/22 [facility] CHEM PANEL Potassium 4.5 meq/L 3.5 - 5.1 05/22 [facility] l [facility] CHEM PANEL Glucose Lvl 110 mg/dL 70 - 99 05/22 [facility] CHEM PANEL BUN 22 mg/dL 7 - 22 05/22 [facility] CHEM PANEL AGAP 11.5 meq/L 10.0 - 05/22 20.0 [facility] HEMATOLOGY RDW 13.1 % 11.5 - 05/22 14.5 [facility] HEMATOLOGY MCHC 32.5 g/dL 32.0 - 05/22 [place] 36.0 [facility] HEMATOLOGY MCH 32.3 pg 27.0 - 05/22 31.0 [facility] HEMATOLOGY MCV 99.6 fL 80.0 - 05/22 [facility] 94.0 [facility] HEMATOLOGY Hct 31.2 % 42.0 - 05/22 [place] 54.0 /2015 [facility] HEMATOLOGY MPV 9.4 fL 7.4 - 10.4 05/22 /2014 [facility] HEMATOLOGY Platelet 127 K/CMM 133 - 450 05/22 /2014 [facility] HEMATOLOGY Hgb 10.1 g/dL 14.0 - 05/22 [place] 18.0 /2014 [facility] HEMATOLOGY RBC 3.14 M/CMM 4.70 - 05/22 [place] 6.10 /2014 [facility] HEMATOLOGY WBC 4.4 K/CMM 3.7 - 10.4 05/22 [facility] HEMATOLOGY Eosinophils 0.2 K/CMM 0.0 - 0.5 05/22 [facility] # /2015 [facility] HEMATOLOGY Monocytes # 0.5 K/CMM 0.0 - 0.8 05/22 [facility] HEMATOLOGY Lymphocytes 19.4 % 20.0 - 05/22 [facility] 40.0 /2014 [facility] HEMATOLOGY Segs 64.5 % 45.0 - 05/22 [facility] 75.0 /2014 [facility] HEMATOLOGY Lymphocytes 0.9 K/CMM 1.0 - 5.5 05/22 [facility] # /2015 [facility] HEMATOLOGY Segs-Bands # 2.8 K/CMM 1.5 - 8.1 05/22 [facility] HEMATOLOGY Basophils 0.5 % 0.0 - 1.0 05/22 [facility] HEMATOLOGY Eosinophils 3.9 % 0.0 - 4.0 05/[address] [place] [address] HEMATOLOGY Monocytes 11.7 % 2.0 - 12.0 05/[address] [place] [address] HVI VAS HVI VAS INDICATION: groin hematoma 05/22 - [facility] Arterial/b Arterial/by /2014 - [facility] ypass ass Lower This report was dictated by a Financial Manager/ Fellow. I have personally reviewed the images [...] fistula. CARDIAC Troponin-T 0.014 0.000 - 05/21 [facility] ENZYMES ng/mL 0.100 /2014 [facility] CARDIAC Troponin-I 0.04 ng/mL 0.00 - 12 [facility] ENZYMES 0.40 /2014 [facility] CARDIAC Total CK 34 unit/L 12 - 191 05/21 [facility] ENZYMES /2014 [facility] CHEM PANEL eGFR 63 05/21 Result Comment: The eGFR is calculated using the CKD-EPI formula. In most young, healthy individuals the eGFR will be >90 mL/ min/1.73m2. The eGFR declines with age. An eGFR of 60-89 may be normal in [facility] [employer] [facility] mL/min/1.7 some populations, particularly the elderly, for whom the CKD-EPI formula has not been extensively validated. Use of the eGFR is not recommended in the following populations: [address] Individuals with unstable creatinine concentrations, including [...] PANEL AGAP 15.1 meq/L 10.0 - 05/21 [facility] 20.0 [facility] CHEM PANEL Calcium Lvl 8.5 mg/dL 8.5 - 10.5 05/21 [facility] CHEM PANEL CO2 20 meq/L 24 - 32 05/21 [facility] /2014 [facility] CHEM PANEL Creatinine 1.09 mg/dL 0.50 - 05/21 [facility] 1.[facility] CHEM PANEL BUN 17 mg/dL 7 - 22 05/[address] CHEM PANEL Potassium 4.1 meq/L 3.5 - 5.1 05/21 [facility] Lvl /2014 [facility] CHEM PANEL Sodium Lvl 140 meq/L 135 - 145 12/12 [facility] CHEM PANEL Glucose Lvl 177 mg/dL 70 - 99 12 [facility] CHEM PANEL Chloride Lvl 109 meq/L 95 - 109 05/21 [facility] CHEM PANEL Phosphorus 4.2 mg/dL 2.5 - 4.5 05/21 [facility] CHEM PANEL Magnesium 2.2 mg/dL 1.8 - 2.4 05/21 [facility] Lvl [facility] HEMATOLOGY Macrocyte 1+ None [facility] 12[facility]13 AM[facility] HEMATOLOGY Lymphocytes 0.6 K/CMM 1.0 - 5.5 05/21 [facility] # /2014 [facility] HEMATOLOGY Basophils 0.4 % 0.0 - 1.0 05/21 [facility] HEMATOLOGY Monocytes # 0.4 K/CMM 0.0 - 0.8 05/[address] [place] [address] HEMATOLOGY Lymphocytes 15.6 % 20.0 - 05/21 [facility] 40.0 [facility] HEMATOLOGY Segs-Bands # 3.0 K/CMM 1.5 - 8.1 05/[address] [place] [address] HEMATOLOGY Monocytes 8.8 % 2.0 - 12.0 05/21 [facility] HEMATOLOGY Eosinophils 0.7 % 0.0 - 4.0 05/21 [facility] HEMATOLOGY Segs 74.5 % 45.0 - 05/21 [facility] 75.0 [facility] HEMATOLOGY INR 1.11 0.85 - 05/21 [facility] 1.17 [facility] HEMATOLOGY PTT 30.1 s 22.9 - 12 35.8 [facility] HEMATOLOGY PT 14.6 s 12.0 - 12 [facility] 14.7 [facility] HEMATOLOGY Platelet 117 K/CMM 133 - 450 12 [facility] HEMATOLOGY MPV 9.6 fL 7.4 - 10.4 05/21 [facility] HEMATOLOGY MCH 33.1 pg 27.0 - 12 [facility] 31.0 [facility] HEMATOLOGY MCHC 32.9 g/dL 32.0 - 12 [facility] 36.0 [facility] HEMATOLOGY RDW 13.2 % 11.5 - 12/ [facility] 14.5 [facility] HEMATOLOGY Hgb 10.2 g/dL 14.0 - 05/21 [facility] 18.0 [facility] HEMATOLOGY Hct 30.9 % 42.0 - 05/21 [facility] 54.0 /2014 [facility] HEMATOLOGY MCV 100.6 fL 80.0 - 05/21 [facility] 94.0 /2014 [facility] HEMATOLOGY RBC 3.07 M/CMM 4.70 - 05/21 [facility] 6.10 [facility] HEMATOLOGY WBC 4.0 K/CMM 3.7 - 10.4 05/21 [facility] PARATHYROI Ca Norm WB 1.13 1.05 - 05/21 [facility] D PROFILE mMol/L 1. [facility] PARATHYROI Ca Ion WB 1.09 1. - 05/21 [facility] D PROFILE mMol/L 1. [facility] CHEM PANEL Lactic Acid 0.7 mMol/L 0.5 - 2.2 05/20 [facility] CHEM PANEL Magnesium 1.4 mg/dL 1.8 - 2.4 05/20 [facility] CHEM PANEL Phosphorus 3.5 mg/dL 2.5 - 4.5 05/20 [facility] CHEM PANEL eGFR 78 05/20 Result Comment: The eGFR is calculated using the CKD-EPI formula. In most young, healthy individuals the eGFR will be >90 mL/ min/1.73m2. The eGFR declines with age. An eGFR of 60-89 may be normal in [facility] [employer] [facility] mL/min/1. some populations, particularly the elderly, for whom the CKD-EPI formula has not been extensively validated. Use of the eGFR is not recommended in the following populations: [address] Individuals with unstable creatinine concentrations, including [...] 05/20 Result Comment: [facility] Result(s) called to HANK TANNER at 05/20/2015 14:22_ by CN_. Read back OK. CHEM PANEL AGAP 14.7 meq/L 10.0 - 12 [place] 20.0 /2014 [facility] CHEM PANEL Glucose Lvl 108 mg/dL 70 - 99 12 [facility] CHEM PANEL Sodium Lvl 145 meq/L 135 - 145 12/ [facility] CHEM PANEL Potassium 2.7 meq/L 3.5 - 5.1 12 Result [facility] Lvl /2014 Comment: [facility] Result(s) called to HANK TANNER at 05/20/2015 14:22_ by CN_. Read back OK. CHEM PANEL BUN 12 mg/dL 7 - 22 12 [facility] CHEM PANEL Creatinine 0.92 mg/dL 0.50 - 12 [facility] Lvl 1.40 [facility] CHEM PANEL Chloride Lvl 113 meq/L 95 - 109 05/20 [facility] CHEM PANEL CO2 20 meq/L 24 - 32 12 [facility] HEMATOLOGY PTT >200 22.9 - 05/20 Result [facility] seconds 35.8 Comment: [facility] Result(s) called to Benigno Jennings at 05/20/2015 14:[address] Read back OK. HEMATOLOGY PT 16.3 s 12.0 - 05/20 [place] 14.7 /2014 [facility] HEMATOLOGY INR 1.28 0.85 - 05/20 [place] 1.17 /2014 [facility] HEMATOLOGY Platelet 108 K/CMM 133 - 450 12 [facility] HEMATOLOGY MPV 9.8 fL 7.4 - 10.4 12 [facility] HEMATOLOGY MCV 100.5 fL 80.0 - 05/20 [place] 94.0 /2014 [facility] HEMATOLOGY RDW 13.3 % 11.5 - 12 [place] 14.5 [facility] HEMATOLOGY MCHC 32.9 g/dL 32.0 - 12 [place] 36.0 /2014 [facility] HEMATOLOGY MCH 33.1 pg 27.0 - 12 [place] 31.0 /2014 [facility] HEMATOLOGY RBC 2.95 M/CMM 4.70 - 12/ [place] 6.10 /2014 [facility] HEMATOLOGY Hct 29.7 % 42.0 - 12 [place] 54.0 [facility] HEMATOLOGY Hgb 9.8 g/dL 14.0 - 05/20 [facility] 18.0 /2014 [facility] HEMATOLOGY WBC 3.6 K/CMM 3.7 - 10.4 05/20 [facility] HEMATOLOGY Monocytes 11.3 % 2.0 - 12.0 05/20 [facility] [address] [place] [address] HEMATOLOGY Segs 60.4 % 45.0 - 05/20 [facility] 75.0 /2014 [facility] HEMATOLOGY Lymphocytes 23.3 % 20.0 - 05/20 [place] 40.0 /2014 [facility] HEMATOLOGY Segs-Bands # 2.2 K/CMM 1.5 - 8.1 05/20 [facility] HEMATOLOGY Lymphocytes 0.9 K/CMM 1.0 - 5.5 05/20 [facility] # /2014 [facility] HEMATOLOGY Basophils 0.3 % 0.0 - 1.0 05/20 [facility] HEMATOLOGY Eosinophils 4.7 % 0.0 - 4.0 05/[address] HEMATOLOGY Monocytes # 0.4 K/CMM 0.0 - 0.8 05/[address] HEMATOLOGY Macrocyte 1+ None Seen 05[facility]20 [facility]15 1:48 PM) HEMATOLOGY Eosinophils 0.2 K/CMM 0.0 - 0.5 05/20 [facility] /2014 [facility] PARATHYROI Ca Ion WB 1.12 1.05 - 05/20 [facility] D PROFILE mMol/L 1. [facility] PARATHYROI Ca Norm WB 1.09 1.05 - 05/20 [facility] D PROFILE mMol/L 1. [facility] CHEM PANEL Globulin 3.0 g/dL 2.0 - 4.0 05/20 [facility] CHEM PANEL B/C Ratio 15 6 - 25 05/20 [facility] [address] [place] [address] CHEM PANEL Bili Total 0.8 mg/dL 0.2 - 1.3 05/20 [facility] CHEM PANEL A/G Ratio 1.1 0.7 - 1.6 05/[address] CHEM PANEL Alk Phos 73 unit/L 39 - 136 05/[address] CHEM PANEL Albumin Lvl 3.2 g/dL 3.5 - 5.0 05/[address] CHEM PANEL ALT 30 unit/L 0 - 65 12 [facility] CHEM PANEL AST 20 unit/L 0 - 37 12/ [facility] CHEM PANEL Total 6.2 g/dL 6.4 - 8.4 05/20 [facility] Protein [facility] HEMATOLOGY INR 1.06 0.85 - 12 [place] 1.17 /2014 [facility] HEMATOLOGY PT 14.1 s 12.0 - 12 [place] 14.7 /2014 [facility] HEMATOLOGY PTT 67.4 s 22.9 - 12 [place] 35.8 /2014 [facility] HEMATOLOGY Eosinophils 0.2 K/CMM 0.0 - 0.5 12 [place] # /2014 [facility] CHEM PANEL AST 27 unit/L 0 - 37 05/17 [facility] CHEM PANEL ALT 30 unit/L 0 - 65 05/17 [facility] CHEM PANEL Albumin Lvl 3.0 g/dL 3.5 - 5.0 05/17 [facility] CHEM PANEL Alk Phos 65 unit/L 39 - 136 05/17 [facility] CHEM PANEL B/C Ratio 11 6 - 25 05/17 [facility] [address] [place] [address] CHEM PANEL Bili Total 0.8 mg/dL 0.2 - 1.3 05/17 [facility] CHEM PANEL Total 5.6 g/dL 6.4 - 8.4 05/17 [facility] Protein [facility] CHEM PANEL A/G Ratio 1.2 0.7 - 1.6 05/[address] CHEM PANEL Globulin 2.6 g/dL 2.0 - 4.0 05/17 [facility] HEMATOLOGY PTT 58.0 s 22.9 [...] eGFR of 60-89 may be normal in [facility] mL/min/1.7 /2014 some populations, particularly the elderly, for whom the CKD-EPI formula has not been extensively validated. Use of the eGFR is not recommended in the following populations: [facility] 3m2 Individuals with unstable creatinine concentrations, [...] Lvl 8.5 mg/dL 8.5 - 10.5 05/15 [facility] ELECTROLYT CO2 27 meq/L 24 - 32 05/15 [facility] ELECTROLYT Sodium Lvl 141 meq/L 135 - 145 05/15 [facility] ELECTROLYT Potassium 3.9 meq/L 3.5 - 5.1 05/15 [facility] Lvl [facility] ELECTROLYT Chloride Lvl 109 meq/L 95 - 109 05/15 [facility] ELECTROLYT Glucose Lvl 117 mg/dL 70 - 99 05/15 [facility] ELECTROLYT Creatinine 1.15 mg/dL 0.50 - 05/15 [facility] Lvl 1.40 [facility] ELECTROLYT BUN 14 mg/dL 7 - 22 05/15 ES [facility] HEMATOLOGY Segs-Bands # 2.7 K/CMM 1.5 - 8.1 05/15 [facility] HEMATOLOGY Lymphocytes 1.2 K/CMM 1.0 - 5.5 05/15 # /2014 [facility] HEMATOLOGY Eosinophils 0.2 K/CMM 0.0 - 0.5 05/15 # /2014 [facility] HEMATOLOGY Monocytes # 0.5 K/CMM 0.0 - 0.8 05/15 [facility] HEMATOLOGY Macrocyte 1+ None Seen 05/15 [facility] *ABN* (05/15/15 4:30 AM) HEMATOLOGY Monocytes 11.6 % 2.0 - 12.0 05/15 [facility] HEMATOLOGY Lymphocytes 25.4 % 20.0 - 05/15 40.0 [facility] HEMATOLOGY Segs 57.5 % 45.0 - 05/15 75.0 [facility] HEMATOLOGY Basophils 0.5 % 0.0 - 1.0 05/15 [facility] HEMATOLOGY Eosinophils 5.0 % 0.0 - 4.0 05/15 [facility] HEMATOLOGY PTT 56.4 s 22.9 - 05/15 MH 35.8 [facility] MCH 33.4 pg 27.0 - 05/15 MH 31.0 /2014 [facility] HEMATOLOGY Hct 32.9 % 42.0 - 05/15 MH 54.0 /2014 [facility] HEMATOLOGY MCV 99.6 fL 80.0 - 05/15 94.0 /2014 [facility] HEMATOLOGY Platelet 104 K/CMM 133 - 450 05/15 [facility] HEMATOLOGY MPV 9.5 fL 7.4 - 10.4 05/15 [facility] HEMATOLOGY RDW 13.4 % 11.5 - 05/15 MH 14.5 [facility] MCHC 33.6 g/dL 32.0 - 05/15 MH 36.0 /2014 [facility] RBC 3.30 M/CMM 4.70 - 05/15 6.10 [facility] Hgb 11.0 g/dL 14.0 - 05/15 18.0 [facility] WBC 4.7 K/CMM 3.7 - 10.4 05/15 [facility] PTT 55.3 s 22.9 - 05/14 MH 35.8 [facility] CHEM PANEL Phosphorus 3.2 mg/dL 2.5 - 4.5 05/14 [facility] CHEM PANEL Magnesium 1.7 mg/dL 1.8 - 2.4 05/14 Lvl [facility] CHEM PANEL eGFR 52 05/14 Result [...] is not recommended in the following populations: [facility] 3m2 Individuals with unstable creatinine concentrations, [...] Lvl 108 meq/L 95 - 109 05/14 [facility] CHEM PANEL Potassium 3.9 meq/L 3.5 - 5.1 05/14 MH Lvl /2014 [facility] CHEM PANEL Sodium Lvl 142 meq/L 135 - 145 05/14 [facility] CHEM PANEL Creatinine 1.29 mg/dL 0.50 - 05/14 MH Lvl 1.40 /2014 [facility] CHEM PANEL CO2 26 meq/L 24 - 32 05/14 [facility] CHEM PANEL Calcium Lvl 8.2 mg/dL 8.5 - 10.5 05/14 [facility] CHEM PANEL BUN 20 mg/dL 7 - 22 05/14 [facility] CHEM PANEL Glucose Lvl 111 mg/dL 70 - 99 05/14 [facility] CHEM PANEL AGAP 11.9 meq/L 10.0 - 12 MH 20.0 /2014 [facility] HEMATOLOGY MPV 9.3 fL 7.4 - 10.4 05/14 [facility] HEMATOLOGY RDW 13.2 % 11.5 - 05/14 MH 14.5 /2014 [facility] HEMATOLOGY MCHC 33.2 g/dL 32.0 - 12 MH 36.0 /2014 [facility] HEMATOLOGY Platelet 102 K/CMM 133 - 450 05/14 /2014 [facility] HEMATOLOGY MCH 33.2 pg 27.0 - 05/14 MH 31.0 /2014 [facility] HEMATOLOGY Hct 32.7 % 42.0 - 05/14 MH 54.0 /2014 [facility] HEMATOLOGY MCV 99.9 fL 80.0 - 05/14 MH 94.0 /2014 [facility] HEMATOLOGY WBC 5.1 K/CMM 3.7 - 10.4 05/14 /2014 [facility] HEMATOLOGY RBC 3.27 M/CMM 4.70 - 12 MH 6.10 /2014 [facility] HEMATOLOGY Hgb 10.9 g/dL 14.0 - 05/14 MH 18.0 /2014 [facility] HEMATOLOGY Lymphocytes 1.4 K/CMM 1.0 - 5.5 05/14 MH # /2014 [facility] HEMATOLOGY Monocytes # 0.5 K/CMM 0.0 - 0.8 05/14 [facility] HEMATOLOGY Segs-Bands # 3.0 K/CMM 1.5 - 8.1 05/14 /2014 [facility] HEMATOLOGY Basophils 0.5 % 0.0 - 1.0 05/14 [facility] HEMATOLOGY Eosinophils 0.2 K/CMM 0.0 - 0.5 05/14 # /2015 [facility] HEMATOLOGY Macrocyte 1+ None Seen 05/14 [facility] *ABN* (05/14/15 6:20 AM) HEMATOLOGY Segs 58.7 % 45.0 - 05/14 MH 75.0 /2014 [facility] HEMATOLOGY Lymphocytes 26.6 % 20.0 - 12 MH 40.0 /2014 [facility] HEMATOLOGY Monocytes 10.1 % 2.0 - 12.0 05/14 [facility] HEMATOLOGY Eosinophils 4.1 % 0.0 - 4.0 05/14 [facility] CARDIAC Total CK 74 unit/L 12 - 191 05/13 ENZYMES /2014 [facility] CARDIAC Troponin-I 0.69 ng/mL 0.00 - 05/13 Result ENZYMES 0.40 Comment: [facility] Critical Result(s) called to Taz Hebert RN at 05/13/2015 03:08 by shyann. Read back OK. CHEM PANEL Phosphorus 3.0 mg/dL 2.5 - 4.5 05/13 [facility] CHEM PANEL Magnesium 1.8 mg/dL 1.8 - 2.4 05/13 Lvl [facility] ELECTROLYT AGAP 9.0 meq/L 10.0 - 05/13 ES 20.0 [facility] ELECTROLYT eGFR 48 05/13 Result Comment: [...] is not recommended in the following populations: [facility] 3m2 Individuals with unstable creatinine concentrations, [...] # 0.4 K/CMM 0.0 - 0.8 05/13 [facility] HEMATOLOGY Macrocyte 1+ None Seen 05/13 [facility] *ABN* (05/13/15 2:07 AM) HEMATOLOGY Segs-Bands # 2.7 K/CMM 1.5 - 8.1 05/13 [facility] HEMATOLOGY Basophils 0.4 % 0.0 - 1.0 05/13 [facility] HEMATOLOGY Eosinophils 3.2 % 0.0 - 4.0 05/13 [facility] HEMATOLOGY Lymphocytes 1.2 K/CMM 1.0 - 5.5 05/13 /2014 [facility] HEMATOLOGY Monocytes 8.6 % 2.0 - 12.0 05/13 [facility] HEMATOLOGY Lymphocytes 27.6 % 20.0 - 05/13 40.0 [facility] HEMATOLOGY Segs 60.2 % 45.0 - 05/13 MH 75.0 [facility] HEMATOLOGY WBC 4.4 K/CMM 3.7 - 10.4 05/13 [facility] HEMATOLOGY RBC 3.33 M/CMM 4.70 - 05/13 MH 6.10 [facility] HEMATOLOGY Platelet 114 K/CMM 133 - 450 05/13 [facility] HEMATOLOGY MPV 10.0 fL 7.4 - 10.4 05/13 [facility] HEMATOLOGY Hgb 11.3 g/dL 14.0 - 05/13 18.0 [facility] HEMATOLOGY Hct 33.1 % 42.0 - 05/13 54.0 /2014 [facility] HEMATOLOGY RDW 13.4 % 11.5 - 05/13 MH 14.5 /2014 [facility] HEMATOLOGY MCV 99.4 fL 80.0 - 05/13 94.0 /2014 [facility] HEMATOLOGY MCH 34.0 pg 27.0 - 05/13 MH 31.0 /2014 [facility] HEMATOLOGY MCHC 34.2 g/dL 32.0 - 05/13 MH 36.0 /2014 [facility] LIPIDS Trig 302 mg/dL <=149 05/13 mg/dL /2014 [facility] LIPIDS VLDL 60 05/13 MH /2014 [facility] LIPIDS Chol 143 mg/dL <=199 05/13 mg/dL /2014 [facility] LIPIDS CHD Risk 5.11 4.00 - 05/13 7.30 /2014 [facility] LIPIDS HDL 28 mg/dL >=61 mg/dL 05/13 [facility] LIPIDS LDL 55 mg/dL <=99 mg/dL 05/13 (Calculated) [facility] CARDIAC CK MB Index 3.9 0.0 - 2.5 05/13 ENZYMES /2014 [facility] CARDIAC CK MB 3.3 ng/mL 0.5 - 3.6 05/13 EN[facility]YMES /2014 [facility] CARDIAC Total CK 85 unit/L - 05/13 ENZYMES /2014 [facility] CARDIAC Troponin-I 0.69 ng/mL 0.00 - 05/13 Result ENZYMES 0.40 /2014 Comment: [facility] Critical Result(s) called to Taz Hebert RN at 05/12/2015 22:11 by shyann. Read back OK. HEMATOLOGY INR 1.14 0.85 - 05/13 1.17 /2014 [facility] HEMATOLOGY PT 14.9 s 12.0 - 05/13 14.7 /2014 [facility] CARDIAC BNP 408 pg/mL <=100 05/12 [facility] pg/mL /2014 [facility] CARDIAC Troponin-I 1.25 ng/mL 0.00 - 05/12 Result ENZYMES 0.40 /2014 Comment: [facility] Critical Result(s) called to jose alfredo shearer at _05/12/2015 15:38 bychristian_. Read back OK. CARDIAC Total CK 112 unit/L 12 - 191 05/12 EN[facility]YMES /2014 [facility] CARDIAC CK MB 4.5 ng/mL 0.5 - 3.6 05/12 [facility]YMES /2014 [facility] CARDIAC CK MB Index 4.0 0.0 - 2.5 05/12 [facility]YMES /2014 [facility] CHEM PANEL Alk Phos 89 unit/L 39 - 136 05/12 [facility] CHEM PANEL B/C Ratio 18 6 - 25 05/12 [facility] CHEM PANEL Bili Total 0.9 mg/dL 0.2 - 1.3 05/12 [facility] CHEM PANEL A/G Ratio 1.1 0.7 - 1.6 05/12 [facility] CHEM PANEL Globulin 3.7 g/dL 2.0 - 4.0 05/12 [facility] CHEM PANEL Total 7.6 g/dL 6.4 - 8.4 05/12 Protein [facility] CHEM PANEL Albumin Lvl 3.9 g/dL 3.5 - 5.0 05/12 [facility] CHEM PANEL AST 33 unit/L 0 - 37 05/12 [facility] CHEM PANEL ALT 34 unit/L 0 - 65 05/12 [facility] HEMATOLOGY INR 1.02 0.85 - 05/12 1.17 /2014 [facility] HEMATOLOGY PT 13.7 s 12.0 - 05/12 MH 14.7 /2014 [facility] URINE AND UA Leuk Est Negative Negative 05/12 [facility]OOL [facility] (05/12/15 2:56 PM) URINE AND UA Bili Negative Negative 05/12 STOOL [facility] *NA* (05/12/15 2:56 PM) URINE AND UA Blood Negative Negative 05/12 [facility]OOL [facility] (05/12/15 2:56 PM) URINE AND UA Nitrite Negative Negative 05/12 [facility] (05/12/15 2:56 PM) URINE AND UA 0.2 EU/dL 0.1 - 1.0 05/12 [facility] Urobilinogen /2014 [facility] URINE AND UA pH 5.0 5.0 - 8.0 05/12 [facility] URINE AND UA Color Yellow Yellow 05/12 [facility] *NA* (05/12/15 2:56 PM) URINE AND UA Glucose Negative Negative 05/12 [facility] mg/dL mg/dL [facility] URINE AND UA Protein Negative Negative 05/12 [facility] mg/dL mg/dL [facility] URINE AND UA Ketones Negative Negative 05/12 [facility] mg/dL mg/dL [facility] URINE AND UA Spec Grav 1.010 <=1.030 05/12 [facility] URINE AND UA Turbidity Clear Clear 05/12 [facility] (05/12/15 2:56 PM) URINE AND UA WBC 0-2 /HPF None Seen 05/12 [facility] /HPF /2014 [facility] URINE AND UA Sq Epi None Seen Few 05/12 [facility] (05/12/15 2:56 PM) URINE AND UA Bacteria None Seen None Seen 05/12 [facility]OL [facility] (05/12/15 2:56 PM) URINE AND UA RBC None Seen 0 - 2 05/12 [facility] (05/12/15 2:56 PM) Chest Chest 1view Name: GILL MADERA 05/12 [facility] 1view DX DX /2014 - [facility] : 1935 Read by: Snehal Fung [...] Renal Renal Stone Name: GILL MADERA 11/[address] [facility] Stone [facility] CT /2013 - Outpatient : 1935 Imaging [facility] Read by: Silverio Mahmood MD Dictated [...] reconstructions were obtained and viewed on a [employer] workstation. FINDINGS: A 5 mm calcified granuloma [...] 110 06/29 [place] 1Interpretive GLUCOSE Lifscn Data: [facility] TESTING Upper Reportable Limit: 200 mg/dL. BEDSIDE Gluc POC 180 mg/dL 65 - 110 06/29 HI 2Interpretive GLUCOSE [employer] Data: [facility] TESTING Upper Reportable Limit: 200 mg/dL. BEDSIDE Gluc POC 248 mg/dL 65 - 110 06/28 [place] 3Interpretive GLUCOSE [employer] Data: [facility] TESTING Upper Reportable Limit: 200 mg/dL. CHEMISTRY AGAP 14.6 meq/L 10.0 - 06/26 Normal 20. [facility] CHEMISTRY Calcium Lvl 9.1 mg/dL 8.5 - 10.5 06/26 Normal [facility] CHEMISTRY CO2 27 meq/L 24 - 32 06/26 Normal [facility] CHEMISTRY Chloride Lvl 103 meq/L 95 - 109 06/26 Normal [facility] CHEMISTRY Potassium 4.6 meq/L 3.5 - 5.1 06/26 Normal Lvl [facility] CHEMISTRY Sodium Lvl 140 meq/L 135 - 145 06/26 Normal [facility] CHEMISTRY Creatinine 2.1 mg/dL 0.5 - 1.4 06/26 [facility] Lvl [facility] CHEMISTRY Glucose Lvl 175 mg/dL 06/26 NA 4Interpretive Data: [facility] Reference Ranges : 0 - 7 days : 41 - 90 mg/dL7 days - 150 yrs : 70 - 99 mg/dL (fasting), based on the clinical recommendatio ns of the [place] [employer]. CHEMISTRY BUN 36 mg/dL 7 - 06/26 HI [facility] HEMATOLOGY Basophils # 0.0 K/CMM 0.0 - 0.2 06/26 Normal [facility] HEMATOLOGY Eosinophils 0.1 K/CMM 0.0 - 0.5 06/26 Normal [facility] HEMATOLOGY Eosinophils 1.8 % 0.0 - 4.0 06/26 Normal [facility] HEMATOLOGY Lymphocytes 1.0 K/CMM 1.0 - 5.5 06/26 Normal [facility] HEMATOLOGY Monocytes # 0.3 K/CMM 0.0 - 0.8 06/26 Normal [facility] HEMATOLOGY Basophils 0.5 % 0.0 - 1.0 06/26 Normal MH /2011 [facility] HEMATOLOGY Monocytes 7.7 % 2.0 - 12.0 06/26 Normal MH /2011 [facility] HEMATOLOGY Lymphocytes 23.4 % 20.0 - 06/26 Normal MH 40.0 /2011 [facility] HEMATOLOGY Segs-Bands # 2.8 K/CMM 1.5 - 8.1 06/26 Normal MH /2011 [facility] HEMATOLOGY Segs 66.6 % 45.0 - 06/26 Normal MH 75.0 /2011 [facility] HEMATOLOGY PT 13.7 s 12.0 - 06/26 Normal MH 14.7 /2011 [facility] HEMATOLOGY INR 1.05 0.85 - 06/26 Normal 9Interpretive MH 1. Data: [facility] RECOMMENDED RANGES FOR PROTIME INR: 2.0-3.0 for most medical and surgical thromboemboli c states. 2.5-3.5 for artificial heart valves and recurrent embolism.INR SHOULD BE USED ONLY FOR PATIENTS ON STABLE ANTICOAGULANT THERAPY. HEMATOLOGY MPV 10.0 fL 7.4 - 10.4 06/26 Normal [facility] MCHC 35.5 g/dL 32.0 - 06/26 Normal 36.0 /2011 [facility] HEMATOLOGY RDW 13.4 % 11.5 - 06/26 Normal MH 14.5 /2011 [facility] Platelet 127 K/CMM 133 - 450 06/26 LOW MH /2011 [facility] HEMATOLOGY Hct 32.2 % 42.0 - 06/26 LOW 7Result MH 54.0 Comment: [facility] Reference range changed due to change in patient's gender at 08:43:59. Normal Low changed from not defined to 42.0. Normal High changed from not defined to 54.0. Result flag changed from not applied to L. HEMATOLOGY Hgb 11.4 g/dL 14.0 - 06/26 LOW 6Result MH 18.0 Comment: [facility] Reference range changed due to change in patient's gender at 08:43:59. Normal Low changed from not defined to 14.0. Normal High changed from not defined to 18.0. Result flag changed from not applied to L. HEMATOLOGY MCV 97.1 fL 80.0 - 06/26 HI 8Result MH 94.0 Comment: [facility] Reference range changed due to change in patient's gender at 08:43:59. Normal Low changed from not defined to 80.0. Normal High changed from not defined to 94.0. Result flag changed from not applied to H. HEMATOLOGY MCH 34.5 pg 27.0 - 06/26 [facility] 31.0 [facility] HEMATOLOGY RBC 3.32 M/CMM 4.70 - 06/26 LOW 5Result 6.10 Comment: [facility] Reference range changed due to change in patient's gender at 08:43:59. Normal Low changed from not defined to 4.70. Normal High changed from not defined to 6.10. Result flag changed from not applied to L. HEMATOLOGY WBC 4.2 K/CMM 3.7 - 10.4 06/26 Normal [facility] Vital Signs Vital Sign Value Date Comments Source Respitory Rate 19 08/06/2017 [place] Systolic (mm Hg) 131 08/06/2017 [place] Diastolic (mm Hg) 62 08/06/2017 [place] Respitory Rate 18 08/06/2017 [place] Systolic (mm Hg) 131 08/06/2017 [place] Diastolic (mm Hg) 62 08/06/2017 [place] Respitory Rate 19 08/06/2017 [place] Systolic (mm Hg) 121 08/06/2017 [place] Diastolic (mm Hg) 64 08/06/2017 [place] Weight 90.909 08/06/2017 [place] BMI Calculated 28.76 08/06/2017 [place] Height 177.8 cm 08/06/2017 [place] Temperature Oral (F) 97.6 F 08/06/2017 [place] Heart Rate 68 08/06/2017 [place] Respitory Rate 20 05/30/2017 [facility] Heart Rate 58 05/30/2017 [facility] Systolic (mm Hg) 132 05/30/2017 [facility] Diastolic (mm Hg) 68 05/30/2017 [facility] Temperature Oral (F) 98.1 F 05/30/2017 [...] 11/03/2016 [facility] Diastolic (mm Hg) 64 11/03/2016 [facility] Temperature Oral (F) 97.6 F 11/03/2016 [facility] Heart Rate 66 11/03/2016 [facility] Temperature Oral (F) 98.2 F 11/03/2016 [facility] Heart Rate 68 11/03/2016 [facility] Respitory Rate 18 11/03/2016 [facility] Systolic (mm Hg) 101 11/03/2016 [facility] Diastolic (mm Hg) 50 11/03/2016 [facility] Systolic (mm Hg) 121 11/03/2016 [facility] Diastolic (mm Hg) 56 11/03/2016 [facility] Respitory Rate 18 11/03/2016 [facility] Heart Rate 65 11/03/2016 [facility] Temperature Oral (F) 98.2 F 11/03/2016 [facility] Respitory Rate 18 11/03/2016 [facility] BMI Calculated 28.04 11/03/2016 [facility] Height [...] Hg) 65 12/30/2015 [facility] Weight 82.273 12/30/2015 [facility] Temperature Oral (F) 98.2 F 12/30/2015 [facility] Heart Rate 64 12/30/2015 [facility] Systolic (mm Hg) 130 12/30/2015 [facility] Diastolic (mm Hg) 64 12/30/2015 [facility] Respitory Rate 16 12/30/2015 [facility] BMI Calculated 28.82 12/28/2015 [facility] Weight 83.455 12/28/2015 [facility] Height 170.18 cm 12/28/2015 [facility] BMI Calculated 29.25 12/28/2015 [facility] Height 170.18 cm 12/28/2015 [facility] Weight 84.716 12/28/2015 [facility] Systolic (mm Hg) 104 05/22/2015 [facility] Diastolic (mm Hg) 52 05/22/2015 [facility] Systolic (mm Hg) 109 05/22/2015 [facility] Diastolic (mm Hg) 52 05/22/2015 [facility] Temperature Oral (F) 98.2 F 05/22/2015 [facility] Systolic (mm Hg) 140 05/22/2015 [facility] Diastolic (mm Hg) 66 05/22/2015 [facility] Temperature Oral (F) 98.2 F 05/21/2015 [facility] Temperature Oral (F) 98.0 F 05/21/2015 [facility] Respitory Rate 20 05/20/2015 [facility] Heart Rate 63 05/20/2015 [facility] Respitory Rate 18 05/20/2015 [facility] Heart Rate 63 05/20/2015 [facility] Heart Rate 73 05/20/2015 [facility] Respitory Rate 18 05/20/2015 [facility] BMI Calculated 29.35 05/17/2015 [facility] Height 170.18 cm 05/17/2015 [facility] Weight 85 05/17/2015 [facility] Systolic (mm Hg) 144 05/17/2015 [facility] Diastolic [...] 70 06/29/2011 [facility] Heart Rate 90 06/29/2011 [facility] Temperature Oral (F) 98.0 F 06/29/2011 [facility] Respitory Rate 20 06/29/2011 [facility] Systolic (mm Hg) 137 06/29/2011 [facility] Weight 94.545 06/26/2011 [facility] Height 170.18 cm 06/26/2011 [facility] Encounters Location Location Encounter Encounter Reason Attending ADM DC Status Source Details Type Number For Provider Date Date Visit Not Sent YOANDY [id number] CHRONIC PING WING 06/28 06/29 Active 0 [facility] /2011 [facility] FAILURE 428.22 ANGINA 413.9. [facility] Out[facility] Diag [id number] [place] 11/13 11/14 [facility] Cardi[facility] STRESS TEST [id number] 12/17 12/17 Cardiova ular [id number] /2013 [id number] 18d Cardiovasc STRESS TEST [id number] 12/17 12/17 [facility] [id number] /2013 [id number] bb9 Cardiovasc STRESS TEST [id number] 12/17 12/17 [facility] [id number] /2013 [id number] [facility] c19 Cardiovasc STRESS TEST [id number] 12/17 12/17 [facility] [id number] /2013 [id number] c2a Cardiovasc STRESS TEST [id number] 12/17 12/17 [facility] [id number] /2013 [id number] 790 Cardiovasc STRESS TEST [id number] 12/17 12/17 Cardi[facility] ular [id number] /2013 [id number] eaf Cardiovasc STRESS TEST [id number] 12/17 12/17 [facility] [id number] /2013 [id number] [facility] 8e8 Cardiovasc STRESS TEST [id number] 12/17 12/17 [facility] [id number] /2013 [id number] [facility] 8f0 Cardiovasc STRESS TEST [id number] 12/17 12/17 [facility] [id number] /2013 [id number] [facility] 188 Cardiovasc STRESS TEST [id number] 12/17 12/17 [facility] [id number] /2013 [id number] [facility] a47 Cardiovasc Established [id number] 12/17 12/17 [facility] Patient [id number] /2013 [id number] [facility] 523 Cardiovasc Established [id number] 12/17 12/17 [facility] Patient [id number] /2013 [id number] [facility] 6c1 Cardiovasc Established [id number] 12/17 12/17 Cardi[facility] Patient [id number] /2013 [id number] [facility] 31e Cardiovasc Established [id number] 12/17 12/17 [facility] Patient [id number] /2013 [facility] [id number] [facility] c3c Cardiovasc Established [id number] 12/17 12/17 Cardi[facility] ular Patient [id number] /2013 [facility] [id number] [facility] dc5 Cardiovasc Established [id number] 12/17 12/17 Cardiova ular Patient 63-36x8-612 /2013 [facility]608s [facility] 99c Cardiovasc Established [id number] 12/17 12/17 Cardiova ular Patient 89-4867-853 /2013 [facility] c-[id number] [facility] acf Cardiovasc Established 561c0a63-f3 12/17 12/17 Cardiova ular Patient 0a-44fd-b7 scular Associatio a-6x063v597 [facility] 2ca Cardiovasc Established [id number] 12/17 12/17 Cardiova ular Patient 20-4590-8a6 sc[facility]-9603rb1nv [facility] 4e4 Cardiovasc Established 56pti8i7-lh 12/17 12/17 Cardiova ular Patient f0-4996-bbc scular Associ[facility] a-z0x69g30v [facility] e92 Cardiovasc Established 7569x61w-ui 03/19 03/19 Cardiova ular Patient c9-49fa-9af sc[facility] 7-396u82300 [facility] 99e Cardiovasc Established f97f95s7-91 03/19 03/19 Cardiova ular Patient b5-8l1k-594 /2013 [facility] [id number] [facility] e95 Cardiovasc Established 38t7392h-l2 03/19 03/19 Cardiova ular Patient ea-425a-99b /2013 [facility]atio e-0gq8dwrk3 [facility] 365 Cardiovasc Established 88y3r216-2t 03/19 03/19 Cardiova ular Patient e1-11e0-d0y /2013 [facility]00k73x6vt [facility] 096 Cardiovasc Established [id number] 03/19 03/19 Cardiova ular Patient 84-0u77-060 /2013 [facility] 2-6t0l1si4g [facility] 0e7 Cardiovasc Established 1l4j02fp-34 03/19 03/19 Cardiova ular Patient b8-4644-860 /2013 [facility] e-[id number] [facility] 1d9 Cardiovasc Established 0o10t86f-8d 03/19 03/19 Cardiova ular Patient 3e-8d28-05n /2013 [facility]-5873bfecc [facility] 94f Cardiovasc Established [id number]-m4 03/19 03/19 Cardiova ular Patient 2a-4897-a60 /2013 [facility] e-2815i760t [facility] a8b Cardiovasc Established 28q8u2t2-bq 03/19 03/19 Cardiova ular Patient 80-8oi2-l8s /2013 [facility][id number] [facility] c27 Cardiovasc Established [id number] 03/19 03/19 Cardiova ular Patient a6-46cc-8a6 [facility]-aece0z6ec [facility] 33a Cardiovasc Established 1v9xx28u-i4 06/25 06/25 Cardiova ular Patient 2b-495e-9b9 /2014 [facility]-23b11ncpk [facility] a45 Cardiovasc Established [id number] 06/25 06/25 Cardiova ular Patient 27-1a43-48d /2014 [facility] [id number] [facility] [place] Cardiovasc Established j1tx4yv2-c6 06/25 06/25 Cardiova ular Patient 3f-8s25-74y /2014 [facility] 4-1kn0f2s50 [facility] e6e Cardiovasc Established [id number] 06/25 06/25 Cardiova ular Patient 38-1i5z-h4g /2014 [facility] c-2ug0m3p1v [facility] 92b Cardiovasc Established [id number]-ft 06/25 06/25 Cardiova ular Patient 27-1b2h-133 /2014 [facility] 1-a0o9f8113 [facility] 1fb Cardiovasc Established 384isq22-48 06/25 06/25 Cardiova ular Patient 87-3s36-u88 /2014 [facility] e-f5660b71k [facility] bf1 Cardiovasc Established 146nr776-95 06/25 06/25 Cardiova ular Patient b4-4161-977 /2014 [facility] [id number] [facility] 5fc Cardiovasc [place] 691qi032-f4 08/06 08/06 Cardiova ular refill 81-82x8-i73 /2014 [facility]-[id number] [facility] a59 Cardiovasc [place] e6j2381a-08 08/06 08/06 Cardiova ular refill f7-4965-882 /2014 [facility]atio f-a705t1ija [facility] 2ae Cardiovasc [place] 3951cwe3-4z 08/06 08/06 Cardiova ular refill 09-400c-874 /2014 [facility] 2-873ebs2j1 [facility] 751 Cardiovasc [place] [id number] 08/06 08/06 Cardiova ular refill 28-1m8k-2hm /2014 [facility] d-9enz5pr63 [facility] 3d8 Cardiovasc [place] 8l16p089-75 08/06 08/06 Cardiova ular refill f7-65k8-429 /2014 [facility] f-8k727w259 [facility] 2ee Cardiovasc [place] q02h2z45-4d 08/06 08/06 Cardiova ular refill 97-463c-8f0 /2014 [facility] a-[id number] [facility] 472 Cardiovasc Unknown [id number] 08/18 08/18 Cardiova ular b0-9ta4-9bs /2014 [facility]ular [facility]atio 1-6r891h5ek [facility] d59 Cardiovasc Unknown q6iizw45-p2 08/18 08/18 Cardiova ular 87-4089-b16 /2014 [facility]ular [facility]atio 9-w2dr9a304 [facility] a62 Cardiovasc Unknown 06u59n4b-1q 08/18 08/18 Cardiova ular 53-4bcf-b56 /2014 [facility]atio b-[id number] [facility] 242 Cardiovasc Unknown [id number]-xh 08/18 08/18 Cardiova ular 60-42ba-9e5 /2014 scular [facility]atio b-74l3py1v0 [facility] a07 Cardiovasc Unknown [id number] 08/18 08/18 Cardiova ular c3-4109-a23 /2014 scular [facility]atio e-78314wcm3 [facility] 85e Cardiovasc Unknown [id number] 08/18 08/18 Cardiova ular 1c-2c71-i6f /2014 scular Associatio f-yxyfc57w6 [facility] [place] Cardiovasc chest pain. 8780g272-4r 10/07 10/07 Cardiova ular 10/06 7e-4aee-8d3 /2014 scular Associatio 7-6n7p1p371 [facility] 12d Cardiovasc chest pain. 7e3jkb34-w8 10/07 10/07 Cardiova ular 10/06 9c-26m7-35c /2014 scular [facility]atio d-31540ge35 [facility] 40e Cardiovasc chest pain. ecz91zmy-6b 10/07 10/07 Cardiova ular 10/06 0b-4419-829 /2014 scular Associatio a-n3l7l9mag [facility] cc8 Cardiovasc chest pain. 456xlkr8-7k 10/07 10/07 Cardiova ular 10/06 a2-90d7-e4k /2014 scular [facility] 4-i0b6e6857 [facility] e95 Cardiovasc chest pain. p9d0a3p9-61 10/07 10/07 Cardiova ular 10/06 33-4083-959 /2014 [facility] a-h1r2la7xe [facility] d6e Cardiovasc chest pain. a447ch8j-39 10/07 10/07 Cardiova ular 10/06 77-1q5b-70q /2014 [facility]-26266w7zg [facility] 512 Cardiovasc Established 2r2q9k0k-d3 01/18 01/18 Cardiova ular Patient 41-73p6-q71 /2014 scular [facility]atio b-kk04m11i6 [facility] e4e Cardiovasc Established [id number] 01/18 01/18 Cardiova ular Patient 88-4305-97e /2014 sc[facility]atio a-yqkb43loc [facility] 57a Cardiovasc Established 1219y013-04 01/18 01/18 Cardiova ular Patient c3-5gf8-p0n /2014 sc[facility]atio [id number] [facility] 09c Cardiovasc Established [id number] 01/18 01/18 Cardiova ular Patient c0-4dde-bcf /2014 scular [facility]atio a-6u5r0a990 [facility] ea8 Cardiovasc Established [id number]-o4 01/18 01/18 Cardiova ular Patient 6c-470f-80b /2014 sc[facility] 8-5ls39qw87 [facility] b26 Cardiovasc Established 416kf388-b8 01/18 01/18 Cardiova ular Patient b6-41ae-98a /2014 [facility] 3-41m4iah61 [facility] 338 Cardiovasc possible [id number] 05/11 05/11 Cardiova ular heart b7-2ko6-s62 /2014 scular Associatio attack 1-2m7501743 [facility] 24b Cardiovasc possible 8546ba7m-99 05/11 05/11 Cardiova ular heart fb-4182-830 /2014 scular Associatio attack 3-25b591b93 [facility] 4a0 Cardiovasc possible 04553yw8-02 05/11 05/11 Cardiova ular heart 37-4717-94b /2014 scular Associatio attack 0-9yo82r377 [facility] 39d Cardiovasc possible q76j049h-de 05/11 05/11 Cardiova ular heart 33-42af-a79 /2014 scular Associatio attack c-705vh0m0z [facility] ad0 Cardiovasc possible [id number]-k1 05/11 05/11 Cardiova ular heart 87-4156-9e6 /2014 scular Associatio attack 8-2314zr116 [facility] 6cc Cardiovasc possible 02g66823-jr 05/11 05/11 Cardiova ular heart fb-479c-ac9 /2014 scular Associatio attack e-e7760mz16 [facility] af7 Cardiovasc Established 82kik6im-24 05/12 05/12 Cardiova ular Patient a5-0gm1-12q /2014 scular Associatio 6-1chpd60j7 [facility] 5a7 Cardiovasc Established a6264zm4-5m 05/12 05/12 Cardiova ular Patient 18-4fda-9fe /2014 scular Associatio 2-65337n561 [facility] 97a Cardiovasc Established [id number]-l3 05/12 05/12 Cardiova ular Patient a3-451e-8cd /2014 scular Associatio 3-960i636tc [facility] 0da Cardiovasc Established omp93f4b-5t 05/12 05/12 Cardiova ular Patient d2-0u19-p9t /2014 scular Associatio 8-2heij039b [facility] 3a7 Cardiovasc Established [id number] 05/12 05/12 Cardiova ular Patient a0-4ebb-9b8 /2014 scular Associatio d-[id number] [facility] a0a Cardiovasc Established 2i992j2d-ll 05/12 05/12 Cardiova ular Patient 1f-6n2k-ve2 /2014 scular Associatio [id number] [facility] 1ea [facility] Inpatient [id number] [facility] 05/12 05/17 Harley 1 [facility] Inpatient [id number] [facility] 05/17 05/22 [facility] 1 Atashband /2014 [facility] Cardiovasc Pt in [id number]-46 05/18 05/18 Cardiova ular [facility] 8e-432a-864 /2014 scular Associatio 05/18 d-[id number] [facility] d79 Cardiovasc Pt in 84ap1522-hz 05/18 05/18 Cardiova ular [facility] 9f-3mi0-72w /2014 scular Associatio 05/18 2-0l4658l9l [facility] e58 Cardiovasc Pt in 206m47j4-32 05/18 05/18 Cardiova ular [facility] b3-7i48-6w1 /2014 scular Associatio 05/18 1-921h3372d [facility] 87e Cardiovasc Pt in 64l49v66-29 05/18 05/18 Cardiova ular [facility] d0-4770-ac3 /2014 scular Associatio 05/18 c-l9m8e1spf [facility] e6c Cardiovasc [place] qc086hc9-fb 10/18 10/18 Cardiova ular [facility] fe-7mk2-8ec /2015 scular Associatio 3-z6v2up1x5 [facility] 6b3 Cardiovasc [place] ok94x5h8-3c 10/18 10/18 Cardiova ular [place] 28-5vz7-55r /2015 scular Associatio 4-6d6xi3695 [facility] 9b9 Cardiovasc [place] 02o403d1-69 10/18 10/18 Cardiova ular [place] f9-5o84-j0z /2015 scular Associatio a-t7706znb4 [facility] b98 Cardiovasc chest pain 4578210h-38 12/27 12/27 Cardiova ular 2a-8p7l-s74 /2015 scular Associatio c-6l86w44jo [facility] 5ea Cardiovasc chest pain 080s8j8u-19 12/27 12/27 Cardiova ular c9-8d55-023 /2015 scular Associatio 4-7z1t1m2c1 [facility] 536 [facility] [id number] [place] 12/27 12/29 Harley 2 Ajelabi /2015 [facility] Cardiovasc Established 6077dg74-0q 04/10 04/10 Cardiova ular Patient 5d-4bbd-87d /2015 scular Associatio e-7447i57h2 [facility] bbf [facility] [id number] Janeth 11/02 11/03 Harley 7 Jagdeep /2016 [facility] [id number] Hsahzad 05/30 05/30 Har[place] 3 [facility] [id number] Vanda 08/06 08/06 Cj Souza 4 Nick /2017 [facility] Procedures Procedure Code Date Perfomer Comments Source CABG x 2 - [id number] [facility] Coronary artery bypass grafts x 2 Excision of [id number] [facility] gallbladder CABG x 2 - [id number] [facility] artery [facility] bypass grafts x 2 Excision of [id number] [facility] Angioplasty [id number] [facility] Angioplasty [id number] [facility] CABG x 2 - [id number] The Coronary artery [place] bypass grafts x 2 Excision of [id number] The gallbladder [place]
--- OUTSIDE RECORDS SUMMARY | 2018-02-03 22:03 | XMS REPORT | CCD ---
:1935 Author Organization [facility] Care Team Providers Name Role Phone Jessica [...] PO, Drug 06/28/2011 06/29/2011 Discontinued Form: TAB, R59B-06, Start date: 06/28/11 6:00:00, Duration: 4 doses [...] based on the clinical recommendations of the [place] [employer].HEMATOLOGY Most recent to oldest [Reference [...]
--- OUTSIDE RECORDS SUMMARY | 2018-02-03 22:04 | XMS REPORT ---
:1935 Author Organization eClinicalWorks Care Team Providers Name Role Phone [place] PHYLLIS Provider Role Unavailable Allergies, Adverse Reactions, Alerts Substance Reaction Event Type N.K.D.A. Info Not Available Non Drug Allergy Encounters Encounter Location Date Established Patient [facility], [facility] Jun 25, 2014 Established Patient [facility], [facility] December 17, 2013 STRESS TEST [facility], [facility] December 17, 2013 Established Patient [facility] Mar 19, 2014 Problems Problem Type Condition ICD-9 Code Onset Dates Condition Status Assessment 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 Active [place] vessel Problem Diabetes mellitus type II 250.00 Active Problem Hypertension Heart Disease - w/o 402.10 Active CHF* Problem 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 Problem Chronic systolic heart failure 428.22 Active Problem S/P Automatic Defibrillator V45.02 Active Problem 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 Active [place] vessel Problem 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 Problem Hypercholesterolemia NOS 272.4 Active Problem Hypothyroidism (acquired) 244.9 Active Assessment S/P Automatic Defibrillator V45.02 Active Assessment Chronic systolic heart failure 428.22 Active Assessment 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 Medications Medication Code System Code Instructions Start End Date Status Dosage Date losartan MULTUM 46936 50 mg orally once Active 1 tab(s) a day nitroglycerin MULTUM 00284 0.4 mg November 26, Active 1 tab(s) sublingually every 2013 5 minutes Lantus MULTUM 45088 100 units/mL Active 34 units at subcutaneously bedtime Crestor MULTUM 59668 10 mg orally once Jan 27, Active 1 tab(s) a day (at bedtime) 2012 levothyroxine MULTUM 48837 112 mcg orally Active 2 caps once a day spironolactone MULTUM 89421 25 mg orally 3 Active 1 tab(s) times a day carvedilol MULTUM 00864 12.5 mg orally 2 Active 1 tab(s) times a day tamsulosin MULTUM 23761 0.4 mg orally bid Active 1 cap(s) gemfibrozil MULTUM 28318 600 mg orally 2 Active 1 tab(s) times a day ASA Unknown 0 81mg once a day Active 1 tab(s) omeprazole MULTUM 48855 20 mg orally once Active 1 tab(s) a day furosemide MULTUM 04648 40 mg orally once Jun 26, Active 1 tab(s) a day 2014 [place] MULTUM 97553 1000 mg orally 2 Active 1 tab(s) [...]
--- OUTSIDE RECORDS SUMMARY | 2018-02-03 22:04 | XMS REPORT ---
:1935 Author Organization eClinicalWorks Care Team Providers Name Role Phone PHYLLIS [place] Provider Role Unavailable Encounters Encounter Location Date Established Patient [facility], [facility] Jun 25, 2014 [place] refill [facility], [facility] Aug 06, 2014 Unknown [facility], [facility] August 18, 2014 chest pain. 10/06 [facility], [facility] October 07, 2014 Established Patient [facility], [facility] December 17, 2013 STRESS TEST [facility], [facility] December 17, 2013 Established Patient [facility], [facility] Mar 19, 2014 Established Patient [facility], [facility] May 12, 2015 Established Patient [facility], [facility] Jan 18, 2015 possible heart attack [facility] May 11, 2015 Problems Problem Type [...]
--- OUTSIDE RECORDS SUMMARY | 2018-02-03 22:04 | XMS REPORT ---
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
--- OUTSIDE RECORDS SUMMARY | 2018-02-03 22:04 | XMS REPORT ---
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 Assessment 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 Problem Presence of automatic (implantable) Z95.810 Active cardiac defibrillator Medications Medication Code Code Instructions Start End Status Dosage System Date Date losartan [facility] 01437319758 50 mg orally Active 1 tab(s) once a day clopidogrel [facility] 28134893126 75 mg orally Active 1 tab(s) once a day nitroglycerin [facility] 89671575610 0.4 mg Active 1 tab(s) sublingually every 5 minutes baclofen [facility] 25778492809 10 mg orally Active 1 tab(s) bid glimepiride [facility] 94816170187 1 mg orally Active 1 tab(s) once aday spironolactone [facility] 66640243992 25 mg orally Active 1 tab(s) bid furosemide [facility] 82845911308 40 mg orally Active 1 tab(s) once a day Glumetza [facility] 29046699954 500 mg orally Active 1 tab(s) bid carvedilol [facility] 27788366671 6.25 orally 2 Active 1 tab(s) times a day [place] [facility] 75677903369 1000 mg orally Active 1 tab(s) 2 times a day omeprazole [facility] 89779167222 20 mg orally Active 1 cap(s) once a day Prilosec [facility] 62596126331 20 mg orally Active 1 cap(s) once a day Synthroid [facility] 38436847405 200 mcg (0.2 Active 1 tab(s) mg) orally once a day hydralazine [facility] 39806320034 25 mg orally 4 Active 1 tab(s) times a day Lasix [facility] 52986581782 40 mg orally Ricarda Active 1 tab(s) once a day 2016 ASA [facility] 83748323269 81mg once a Active 1 tab(s) day tamsulosin [facility] 60328628351 0.4 mg orally Active 1 cap(s) once a day isosorbide [facility] 06388791123 30 mg orally Active 1 tab(s) dinitrate every 8 hrs Vital Signs Date/Time: September 25, 2016 Blood Pressure Systolic 122 mm Hg BMI 30.02 Index Height 66 in Blood Pressure Diastolic 50 mm Hg Results No Known Results Summary Purpose eClinicalWorks Submission
--- OUTSIDE RECORDS SUMMARY | 2018-02-03 22:04 | XMS REPORT ---
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
--- OUTSIDE RECORDS SUMMARY | 2018-02-03 22:04 | XMS REPORT ---
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 Problem Hypercholesterolemia NOS 272.4 Active Problem Hypothyroidism (acquired) 244.9 Active Medications Medication Code System Code Instructions Start End Date Status Dosage Date Humalog MULTUM 6127 100 units/mL Active 12 units subcutaneously before meals levothyroxine MULTUM 41970 200 mcg orally Active 1 cap(s) once a day [place] MULTUM 63608 1000 mg orally 2 Active 1 tab(s) times a day nitroglycerin MULTUM 87874 0.4 mg/hr Active 1 PATCH transdermally prn nitroglycerin MULTUM 91743 0.4 mg November 26, Active 1 tab(s) sublingually every 2013 5 minutes losartan MULTUM 79783 50 mg orally once Active 1 tab(s) a day omeprazole MULTUM 44289 20 mg orally once Active 1 tab(s) a day Crestor MULTUM 35335 10 mg orally once Jan 27, Active 1 tab(s) a day (at bedtime) 2012 ASA Unknown 0 81mg once a day Active 1 tab(s) tamsulosin MULTUM 66619 0.4 mg orally once Active 1 cap(s) a day Coreg MULTUM 24260 12.5 mg orally 2 Active 1/2 tab times a day spironolactone MULTUM 00525 25 mg orally 3 Active 1 tab(s) times a day Lantus MULTUM 57915 100 units/mL Active 34 units at subcutaneously bedtime gemfibrozil MULTUM 11769 600 mg orally 2 Active 1 tab(s) times a day furosemide MULTUM 25866 20 mg orally once Active 2 tabs a day Social History Social History Element Qualifiers Date Reported Caffeine: yes. 2 cups of coffee a day Mar 19, 2014 Tobacco Use: . Status: Former Smoker quit 22 yrs ago Mar 19, 2014 Alcohol: no. Mar 19, 2014 Summary Purpose eClinicalWorks Submission
--- OUTSIDE RECORDS SUMMARY | 2018-02-03 22:04 | XMS REPORT ---
[...] Start Date End Date Status Dosage [place] [facility] 20340664873 1000 mg orally 2 Active 1 tab(s) times a day Results No Known Results Summary Purpose eClinicalWorks Submission
--- OUTSIDE RECORDS SUMMARY | 2018-02-03 22:04 | XMS REPORT ---
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 [place] coronary artery with other forms of [...] Medications Results No Known Results Summary Purpose [employer] Submission
--- OUTSIDE RECORDS SUMMARY | 2018-02-03 22:04 | XMS REPORT ---
:1935 Author Organization eClinicalWorks Care Team Providers Name Role Phone PHYLLIS [place] Provider Role Unavailable Allergies, Adverse Reactions, Alerts Substance Reaction Event Type N.K.D.A. 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 Assessment Presence of coronary angioplasty Z95.5 Active implant and graft Problem 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 Problem Presence of automatic (implantable) Z95.810 Active cardiac defibrillator Problem Presence of coronary angioplasty Z95.5 Active implant and graft Problem Hyperlipidemia, unspecified E78.5 Active Problem Hypothyroidism, unspecified E03.9 Active Problem 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 Problem 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 Assessment 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 Assessment Hyperlipidemia, unspecified E78.5 Active Assessment 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 Medications Medication Code System Code Instructions Start Date End Date Status Dosage spironolactone NDC 69196 25 mg orally bid Active 1 tab(s) Glumetza NDC 43821 500 mg orally bid Active 1 tab(s) clopidogrel NDC 17772 75 mg orally once Active 1 tab(s) a day Synthroid NDC 2205 200 mcg (0.2 mg) Active 1 tab(s) orally once a day carvedilol NDC 65318 3.125 mg orally 2 Active 2 tab(s) times a day glimepiride NDC 87295 1 mg orally bid Active 1 tab(s) atorvastatin NDC 22234 10 mg orally once Active 1 tab(s) a day (at bedtime) tamsulosin NDC 31273 0.4 mg orally Active 1 cap(s) once a day furosemide NDC 51910 40 mg orally once Active 1 tab(s) a day ASA NDC 0 81mg once a day Active 1 tab(s) Prilosec NDC 363 20 mg orally once Active 1 cap(s) a day [place] NDC 67845 1000 mg orally 2 Active 1 tab(s) times a day nitroglycerin NDC 34459 0.4 mg Active 1 tab(s) sublingually every 5 minutes losartan NDC 82998 50 mg orally once Active 1 tab(s) a day Vital Signs Date/Time: Jun 19, 2016 Blood Pressure Systolic 110 mm Hg BMI 30.66 Index Height 66 in Blood Pressure Diastolic 50 mm Hg Results No Known Results Summary Purpose eClinicalWorks Submission
--- OUTSIDE RECORDS SUMMARY | 2018-02-03 22:04 | XMS REPORT ---
:1935 Author Organization eClinicalWorks Care Team Providers Name Role Phone [place] Provider Role Unavailable Allergies, Adverse Reactions, Alerts Substance Reaction Event Type N.K.D.A. Info Not Available Non Drug Allergy Encounters Encounter Location Date Established Patient [facility], [facility] December 17, 2013 STRESS TEST [facility], [facility] December 17, 2013 Established Patient [facility], [facility] Mar 19, 2014 Problems Problem Type Condition ICD-9 Code Onset Dates Condition Status Assessment 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 Active [place] vessel Problem Diabetes mellitus type II 250.00 Active Problem Hypertension Heart Disease - w/o 402.10 Active CHF* Problem 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 Problem Chronic systolic heart failure 428.22 Active Problem S/P Automatic Defibrillator V45.02 Active Problem 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 Active [place] vessel Problem 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 Problem Hypercholesterolemia NOS 272.4 Active Problem Hypothyroidism (acquired) 244.9 Active Assessment S/P Automatic Defibrillator V45.02 Active Assessment Chronic systolic heart failure 428.22 Active Assessment 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 Medications Medication Code System Code Instructions Start End Date Status Dosage Date Humalog MULTUM 6127 100 units/mL Active 12 units subcutaneously before meals spironolactone MULTUM 18944 25 mg orally 3 Active 1 tab(s) times a day Lantus MULTUM 88708 100 units/mL Active 34 units at subcutaneously bedtime omeprazole MULTUM 49276 20 mg orally once Active 1 tab(s) a day levothyroxine MULTUM 95766 112 mcg orally Active 2 caps once a day Crestor MULTUM 87344 10 mg orally once Jan 27, Active 1 tab(s) a day (at bedtime) 2012 Lyrica MULTUM 15910 50 mg orally 2 Active 1 cap(s) times a day ASA Unknown 0 81mg once a day Active 1 tab(s) furosemide MULTUM 24986 20 mg orally tid Active 3 tsa tamsulosin MULTUM 36121 0.4 mg orally bid Active 1 cap(s) nitroglycerin MULTUM 38844 0.4 mg November 26 1 tab(s) sublingually every 2013 5 minutes losartan MULTUM 72792 50 mg orally once Active 1 tab(s) a day Ranexa MULTUM 51042 1000 mg orally 2 Active 1 tab(s) times a day gemfibrozil MULTUM 78843 600 mg orally 2 Active 1 tab(s) [...]
--- OUTSIDE RECORDS SUMMARY | 2018-02-03 22:04 | XMS REPORT ---
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
--- OUTSIDE RECORDS SUMMARY | 2018-02-03 22:04 | XMS REPORT ---
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 Problem 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 Problem Hyperlipidemia, unspecified E78.5 Active Medications Medication Code System Code Instructions Start End Date Status Dosage Date nitroglycerin MULTUM 34673 0.4 mg November 26, Active 1 tab(s) sublingually every 2013 5 minutes omeprazole MULTUM 86586 20 mg orally once Active 1 tab(s) a day tamsulosin MULTUM 69141 0.4 mg orally bid Active 1 cap(s) spironolactone MULTUM 06401 25 mg orally 3 Active 1 tab(s) times a day levothyroxine MULTUM 04909 112 mcg orally Active 2 caps once a day carvedilol MULTUM 55513 12.5 mg orally 2 Active 1 tab(s) times a day furosemide MULTUM 01523 40 mg orally once Jun 26, Active 1 tab(s) a day 2014 Crestor MULTUM 48797 10 mg orally once Jan 27, Active 1 tab(s) a day (at bedtime) 2012 Ranexa MULTUM 43109 1000 mg orally 2 Active 1 tab(s) times a day gemfibrozil MULTUM 67870 600 mg orally 2 Active 1 tab(s) times a day losartan MULTUM 11199 50 mg orally once Active 1 tab(s) a day Lantus MULTUM 53960 100 units/mL Active 34 units at subcutaneously [...]
--- OUTSIDE RECORDS SUMMARY | 2018-02-03 22:04 | XMS REPORT ---
:1935 Author Organization eClinicalWorks Care Team Providers Name Role Phone CYN [place] Provider Role Unavailable Encounters Encounter Location Date Established Patient [facility], [facility] Jun 25, 2014 [place] refill [facility], [facility] Aug 06, 2014 Unknown [facility], [facility] August 18, 2014 chest pain. 10/06 [facility], [facility] October 07, 2014 Established Patient [facility], [facility] December 17, 2013 Pt in [facility] 05/18 [facility], [facility] May 18, 2015 STRESS TEST [facility] Association, [facility] December 17, 2013 Established Patient [facility] Association, [facility] Mar 19, 2014 Established Patient [facility], [facility] May 12, 2015 Established Patient [facility], [facility] Jan 18, 2015 possible heart attack [facility], [facility] May 11, 2015 Problems Problem Type Condition ICD-9 Code Onset Dates Condition Status Problem 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 [place] coronary artery with other forms of angina [...]
--- OUTSIDE RECORDS SUMMARY | 2018-02-03 22:04 | XMS REPORT ---
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 Problem Hypercholesterolemia NOS 272.4 Active Problem Hypothyroidism (acquired) 244.9 Active Assessment Hypertension Heart Disease - w/o 402.10 Active CHF* Assessment S/P Automatic Defibrillator V45.02 Active Assessment Chronic systolic heart failure 428.22 Active Assessment 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 Medications Medication Code System Code Instructions Start End Date Status Dosage Date levothyroxine MULTUM 30193 200 mcg orally Active 1 cap(s) once a day nitroglycerin MULTUM 69223 0.4 mg November 26, Active 1 tab(s) sublingually every 2013 5 minutes gemfibrozil MULTUM 10651 600 mg orally 2 Active 1 tab(s) times a day omeprazole MULTUM 34780 20 mg orally once Active 1 tab(s) a day losartan MULTUM 12011 50 mg orally once Active 1 tab(s) a day Crestor MULTUM 34878 10 mg orally once Jan 27, Active 1 tab(s) a day (at bedtime) 2012 spironolactone MULTUM 77189 25 mg orally 3 Active 1 tab(s) times a day tamsulosin MULTUM 38470 0.4 mg orally bid Active 1 cap(s) ASA Unknown 0 81mg once a day Active 1 tab(s) Lantus MULTUM 09594 100 units/mL Active 34 units at subcutaneously bedtime furosemide MULTUM 21269 20 mg orally once Active 3 tsa a day Ranexa MULTUM 66332 1000 mg orally 2 Active 1 tab(s) [...]
--- OUTSIDE RECORDS SUMMARY | 2018-02-03 22:04 | XMS REPORT ---
:1935 Author Organization eClinicalWorks Care Team Providers Name Role Phone PHYLLIS [place] Provider Role Unavailable Allergies, Adverse Reactions, Alerts Substance Reaction Event Type N.K.D.A. 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 Assessment 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 Problem Presence of automatic (implantable) Z95.810 Active cardiac defibrillator Medications Medication Code Code Instructions Start End Status Dosage System Date Date nitroglycerin [facility] 01433711719 0.4 mg Active 1 tab(s) sublingually every 5 minutes baclofen [facility] 37708823045 10 mg orally Active 1 tab(s) bid tamsulosin [facility] 00961161008 0.4 mg orally Active 1 cap(s) once a day ASA [facility] 02370593161 81mg once a Active 1 tab(s) day losartan [facility] 02500342669 50 mg orally Active 1 tab(s) once a day spironolactone [facility] 95624509572 25 mg orally Active 1 tab(s) bid Prilosec [facility] 98821965930 20 mg orally Active 1 cap(s) once a day glimepiride [facility] 89199125981 1 mg orally bid Active 1 tab(s) clopidogrel [facility] 61564254325 75 mg orally Active 1 tab(s) once a day furosemide ND 74236308173 40 mg orally Active 1 tab(s) once a day carvedilol [facility] 93088185526 6.25 orally 2 Active 1 tab(s) times a day Glumetza [facility] 06949615368 500 mg orally Active 1 tab(s) bid isosorbide [facility] 38855890684 30 mg orally Active 1 tab(s) dinitrate every 8 hrs Synthroid [facility] 42624326255 200 mcg (0.2 Active 1 tab(s) mg) orally once a day hydralazine [facility] 75947969812 25 mg orally 4 Active 1 tab(s) times a day Ranexa [facility] 45310907181 1000 mg orally Active 1 tab(s) 2 times a day omeprazole [facility] 86114197147 20 mg orally Active 1 cap(s) once a day Vital Signs Date/Time: September 03, 2016 Blood Pressure Systolic 136 mm Hg BMI 29.53 Index Height 66 in Blood Pressure Diastolic 60 mm Hg Results No Known Results Summary Purpose eClinicalWorks Submission
--- OUTSIDE RECORDS SUMMARY | 2018-02-03 22:05 | XMS REPORT ---
:1935 [facility] [address] [place] [address] Care Team Providers Name Role Phone KARI DNUCAN Unavailable Unavailable Problems This patient has no known problems. Allergies, Adverse Reactions, Alerts This patient has no known allergies or adverse reactions. Medications This patient has no known medications. Results Test Description Test Time Test Comments Text Results Atomic Results Result Comments PROTHROMBIN TIME/INR 2017-12-20 07:35:00 Test Item Value Reference Range Comments PROTIME (BEAKER) (test uncm=506) 15.1 seconds 11.7-14.7 INR (BEAKER) (test fyac=506) 1.2 <=5.9 RECOMMENDED COUMADIN/WARFARIN INR THERAPY RANGESSTANDARD DOSE: 2.0 - 3.0 Includes: PROPHYLAXIS forvenous thrombosis, systemic embolization; TREATMENT for venous thrombosis and/or pulmonary embolus.HIGH RISK: Target INR is 2.5-3.5 for patients with mechanical heart valves.BASIC METABOLIC [id number] 07:33: 00 Test Item Value Reference Range Comments SODIUM (BEAKER) (test 142 meq/L 136-145 oocy=450) POTASSIUM (BEAKER) (test 4.1 meq/L 3.5-5.1 imdh=119) CHLORIDE (BEAKER) (test 105 meq/L 98-107 byni=247) CO2 (BEAKER) (test 28 meq/L 22-29 qzpo=180) BLOOD UREA NITROGEN 30 mg/dL 7-21 (BEAKER) (test cwcd=308) CREATININE (BEAKER) (test 1.90 mg/dL 0.57-1.25 loah=203) GLUCOSE RANDOM (BEAKER) 118 mg/dL 70-105 (test qxah=883) CALCIUM (BEAKER) (test 9.1 mg/dL 8.4-10.2 psst=891) EGFR (BEAKER) (test 34 mL/min/1.73 sq m ESTIMATED GFR IS NOT mwbv=8522) ACCURATE CREATININE CLEARANCE IN PREDICTING GLOMERULAR FILTRATION RATE. ESTIMATED GFR IS NOT APPLICABLE FOR DIALYSIS PATIENTS. CBC W/PLT COUNT & AUTO [id number] 07:16:00 Test Item Value Reference Range Comments WHITE BLOOD CELL COUNT (BEAKER) (test fcug=709) 4.6 K/ L 3.5-10.5 RED BLOOD CELL COUNT (BEAKER) (test staw=522) 3.33 M/ L 4.63-6.08 HEMOGLOBIN (BEAKER) (test ugss=083) 10.1 GM/DL 13.7-17.5 HEMATOCRIT (BEAKER) (test knyw=602) 31.9 % 40.1-51.0 MEAN CORPUSCULAR VOLUME (BEAKER) (test gkey=862) 95.8 fL 79.0-92.2 MEAN CORPUSCULAR HEMOGLOBIN (BEAKER) (test 30.3 pg 25.7-32.2 epgo=691) MEAN CORPUSCULAR HEMOGLOBIN CONC (BEAKER) (test 31.7 GM/DL 32.3-36.5 rnwa=663) RED CELL DISTRIBUTION WIDTH (BEAKER) (test 17.4 % 11.6-14.4 ajmm=220) PLATELET COUNT (BEAKER) (test wioa=965) 99 K/CU MM 150-450 MEAN PLATELET VOLUME (BEAKER) (test bphc=457) 11.0 fL 9.4-12.4 NUCLEATED RED BLOOD CELLS (BEAKER) (test 0 /100 WBC 0-0 ukxu=255) NEUTROPHILS RELATIVE PERCENT (BEAKER) (test 68 % tqna=251) LYMPHOCYTES RELATIVE PERCENT (BEAKER) (test 20 % zzqv=373) MONOCYTES RELATIVE PERCENT (BEAKER) (test 9 % xamj=753) EOSINOPHILS RELATIVE PERCENT (BEAKER) (test 2 % bgoy=400) BASOPHILS RELATIVE PERCENT (BEAKER) (test 0 % jtzs=769) NEUTROPHILS ABSOLUTE COUNT (BEAKER) (test 3.12 K/ L 1.78-5.38 wrjg=931) LYMPHOCYTES ABSOLUTE COUNT (BEAKER) (test 0.93 K/ L 1.32-3.57 rswo=824) MONOCYTES ABSOLUTE COUNT (BEAKER) (test mlfl=470) 0.40 K/ L 0.30-0.82 EOSINOPHILS ABSOLUTE COUNT (BEAKER) (test 0.09 K/ L 0.04-0.54 hfbs=624) BASOPHILS ABSOLUTE COUNT (BEAKER) (test xkja=824) 0.01 K/ L 0.01-0.08 IMMATURE GRANULOCYTES-RELATIVE PERCENT (BEAKER) 0 % 0-1 (test eznf=0709)
--- OUTSIDE RECORDS SUMMARY | 2018-02-03 22:05 | XMS REPORT ---
:1935 Author Organization eClinicalWorks Care Team Providers Name Role Hugh [place] Provider Role Unavailable Allergies, Adverse Reactions, Alerts Substance Reaction Event Type N.K.D.A. Info Not Available Non Drug Allergy Encounters Encounter Location Date Established Patient [facility] Association, [facility] Jun 25, 2014 [place] refill [facility], [facility] Aug 06, 2014 Unknown [facility] Association, [facility] August 18, 2014 chest pain. 10/06 [facility] Association, [facility] October 07, 2014 Established Patient [facility] Association, [facility] December 17, 2013 STRESS TEST [facility] Association, [facility] December 17, 2013 Established Patient [facility] Association, [facility] Mar 19, 2014 Established Patient [facility] Association, [facility] May 12, 2015 Established Patient [facility], [facility] Jan 18, 2015 possible heart attack [facility], [facility] May 11, 2015 chest pain [facility], [facility] December 28, 2015 Established Patient [facility] Association, [facility] Apr 10, 2016 Pt in [facility] 05/18 [facility], [facility] May 18, 2015 [place] Change[facility] [facility], [facility] October 19, 2015 Problems Problem Type Condition ICD-9 Code Onset Dates Condition Status Assessment Presence 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 Assessment 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 Assessment Presence of coronary angioplasty Z95.5 Active implant and graft Problem 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 Problem Presence 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 Problem Presence of coronary angioplasty Z95.5 Active implant and graft Problem Hyperlipidemia, unspecified E78.5 Active Problem Hypothyroidism, unspecified E03.9 Active Problem 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 Problem 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 Assessment 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 Assessment Hyperlipidemia, unspecified E78.5 Active Assessment 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 Medications Medication Code System Code Instructions Start Date End Date Status Dosage carvedilol MULTUM 82730 3.125 orally 2 Active 2 tab(s) times a day tamsulosin MULTUM 18088 0.4 mg orally Active 1 cap(s) once a day nitroglycerin MULTUM 90544 0.4 mg Active 1 tab(s) sublingually every 5 minutes losartan MULTUM 56392 50 mg orally once Active 1 tab(s) a day Glumetza MULTUM 21493 500 mg orally 2 Active 1 tab(s) times a day ASA Unknown 0 81mg once a day Active 1 tab(s) clopidogrel MULTUM 53285 75 mg orally once Active 1 tab(s) a day Prilosec MULTUM 363 20 mg orally once Active 1 cap(s) a day Synthroid MULTUM 2205 200 mcg (0.2 mg) Active 1 tab(s) orally once a day spironolactone MULTUM 86937 25 mg orally 3 Active 1 tab(s) times a day furosemide MULTUM 01989 40 mg orally once Active 1 tab(s) a day atorvastatin MULTUM 98383 10 mg orally once Active 1 tab(s) a day (at bedtime) glimepiride MULTUM 80628 1 mg orally bid Active 1 tab(s) Ran[place]a MULTUM 15955 1000 mg orally 2 Active 1 tab(s) [...]
--- OUTSIDE RECORDS SUMMARY | 2018-02-03 22:05 | XMS REPORT ---
:1935 Author Organization eClinicalWorks Care Team Providers Name Role Phone CYN [place] Provider Role Unavailable Encounters Encounter Location Date Established Patient [facility]ovascular Association, [facility] Jun 25, 2014 [place] refill [facility], [facility] Aug 06, 2014 Unknown [facility]ovascular Association, [facility] August 18, 2014 chest pain. 10/06 [facility] Association, [facility] October 07, 2014 Established Patient [facility]ovascular Association, [facility] December 17, 2013 Pt in [facility] 05/18 Cardiovascular Association, [facility] May 18, 2015 STRESS TEST [facility] Association, [facility] December 17, 2013 [place] Change[facility] [facility] Association, [facility] October 19, 2015 Established Patient Cardiovascular Association, [facility] Mar 19, 2014 Established Patient [facility] Association, [facility] May 12, 2015 Established Patient [facility] Association, [facility] Jan 18, 2015 possible heart attack [facility] Association, [facility] May 11, 2015 Problems Problem Type Condition ICD-9 Code Onset Dates Condition Status Problem Presence 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 Problem 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
--- OUTSIDE RECORDS SUMMARY | 2018-02-03 22:05 | XMS REPORT ---
[...] Association, [facility] May 11, 2015 chest pain Cardiovascular Association, [facility] December 28, 2015 Pt in [facility] 05/18 Cardiovascular Association, [facility] May 18, 2015 [place] Change[facility] [facility], [facility] October 19, 2015 Problems Problem Type Condition ICD-9 Code Onset Dates Condition Status Problem Presence 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 Problem 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 [place] coronary artery with other forms of angina [...]
[2018-02-03 23:42] LABS: Absolute Lymphocytes (CBC) 0.7 K/uL (0.7-4.9); Absolute Monocytes 0.4 K/uL (0.1-1.3); Absolute Neutrophil 3.2 K/uL (1.8-8.0); Basophils % 0.5 % (0-1.3); Eosinophils % 0.6 % (0-4.4); Lymphocytes % 15.8 % (15.3-44.8); MCH 31.7 pg (27.0-35.0); MCV 93.9 fL (80-100); MPV 9.8 fL (7.6-11.3); Monocytes % 8.4 % (3.3-12.3)
[2018-02-03 23:45] LABS: Protime INR 1.15
[2018-02-04 00:06] LABS: Albumin 3.4 g/dL (3.4-5.0); Bilirubin Direct 0.3 mg/dL (0-0.2); Bilirubin Total 0.7 mg/dL (0.2-1.0); CKMB Creatine Kinase MB 2.5 ng/mL (0.3-3.6); Magnesium 2.4 mg/dL (1.8-2.4); Potassium 4.3 mmol/L (3.5-5.1); Protein, Total 6.6 g/dL (6.4-8.2)
[2018-02-04] MEDS ORDERED: FUROSEMIDE 40 MG/4 ML VIAL ONE (00:22)
[2018-02-04 00:26] LABS: Blood Morphology Comment NOTED (NOT SEEN); Burr Cells 1+; Platelet Estimate DECR; Urine White Blood Cell Casts OK
--- NOTE | 2018-02-04 00:40 | EDPHYS ---
Physician Documentation [facility] Name: Blayne Ashford Age: 82 yrs Sex: Male : 1935 Arrival Date: 02/03/2018 Time: 21:50 Bed 6 Private MD: ED Physician Hao Brock HPI: 02/04 00:00 This 82 yrs old Male presents to ER via EMS with complaints of Shortness Of tw4 Breath, Breathing Difficulty. 00:00 The patient has shortness of breath at rest. Onset: The symptoms/episode began/occurred tw4 today. Duration: The symptoms are continuous. The patient's shortness of breath has no apparent modifying factors. Associated signs and symptoms: The patient has no apparent associated signs or symptoms. Severity of symptoms: At their worst the symptoms were. The patient has not experienced similar symptoms in the past. Historical: - Allergies: 02/03 22:22 No Known Allergies; lp1 - Home Meds: 22:01 atorvastatin 40 mg Oral tab 2 tabs nightly [Active]; clopidogrel 75 mg Oral tab once ea daily [Active]; exelon patch daily [Active]; glimepiride 2 mg Oral tab once daily [Active]; isosorbide dinitrate 20 mg Oral tab 2 times per day [Active]; Januvia 50 mg Oral tab once daily [Active]; lactulose 10 gram/15 mL Oral soln 30 mL nightly [Active]; Lasix 40 mg Oral tab 2 times per day [Active]; levothyroxine 100 mcg tab 2 tabs once daily [Active]; losartan 25 mg Oral tab once daily [Active]; metoprolol succinate 25 mg Oral tab twice a day [Active]; omeprazole 20 mg Oral TbEC daily [Active]; Ranexa 1,000 mg Oral Tb12 2 times per day [Active]; Risperdal 0.25 mg Oral tab daily [Active]; Risperdal 0.5 mg Oral tab nightly [Active]; spironolactone 25 mg Oral tab once daily [Active]; tamsulosin 0.4 mg Oral cp24 once daily [Active]; - PMHx: 22:01 Pneumonia; Pacemaker; Myocardial infarction; MUSCLE WEAKNESS; Hypothyroidism; ea Hypertension; Hyperlipidemia; Hematuria; HEART FAILURE; Diabetes - NIDDM; Dementia; COPD; CHF; CAD; BPH; Atrial Fib; angina pectoris; Anxiety; - PSHx: 22:01 Heart stents; CABG; Hernia repair; ea - Immunization history:: Adult Immunizations up to date. - Social history:: Smoking status: Patient/guardian denies using tobacco. - Ebola Screening: : No symptoms or risks identified at this time. ROS: 02/04 00:00 Constitutional: Negative for fever, chills, and weight loss, Eyes: Negative for injury, tw4 pain, redness, and discharge, Cardiovascular: Negative for chest pain, palpitations, and edema, Abdomen/GI: Negative for abdominal pain, nausea, vomiting, diarrhea, and constipation. MS/Extremity: Negative for injury and deformity, Skin: Negative for injury, rash, and discoloration, Neuro: Negative for headache, weakness, numbness, tingling, and seizure. Respiratory: Positive for shortness of breath. Exam: 00:00 Constitutional: This is a well developed, well nourished patient who is awake, alert, tw4 and in no acute distress. Head/Face: Normocephalic, atraumatic. Chest/axilla: Normal chest wall appearance and motion. Nontender with no deformity. No lesions are appreciated. Cardiovascular: Regular rate and rhythm with a normal S1 and S2. No gallops, murmurs, or rubs. Normal PMI, no JVD. No pulse deficits. Respiratory: Lungs have equal breath sounds bilaterally, clear to auscultation and percussion. No rales, rhonchi or wheezes noted. No increased work of breathing, no retractions or nasal flaring. Abdomen/GI: Soft, non-tender, with normal bowel sounds. No distension or tympany. No guarding or rebound. No evidence of tenderness throughout. MS/ Extremity: Pulses equal, no cyanosis. Neurovascular intact. Full, normal range of motion. Neuro: Awake and alert, GCS 15, oriented to person, place, time, and situation. Cranial nerves II-XII grossly intact. Motor strength 5/5 in all extremities. Sensory grossly intact. Cerebellar exam normal. Normal gait. Psych: Awake, alert, with orientation to person, place and time. Behavior, mood, and affect are within normal limits. Vital Signs: 02/03 22:02 BP 142 / 62; Pulse 64; Resp 18; Temp 98.7; Pulse Ox 97% ; Weight 71.21 kg; Height 5 ft. ea 7 in. (170.18 cm); Pain 0/10; 23:00 BP 117 / 59; Pulse 60; Resp 16; Pulse Ox 97% on R/A; lp1 02/04 00:14 BP 110 / 73; Pulse 60; Resp 18; Pulse Ox 98% on R/A; ea 01:30 BP 110 / 64; Pulse 59; Resp 17; Pulse Ox 97% on R/A; lp1 02/03 22:02 Body Mass Index 24.59 (71.21 kg, 170.18 cm) ea MDM: 02/03 21:52 Patient medically screened. 02/04 06:53 Differential diagnosis: Anemia Anxiety Reaction pneumonia. Data reviewed: vital signs, 4 nurses notes. Counseling: I had a detailed discussion with the patient and/or guardian regarding: the historical points, exam findings, and any diagnostic results supporting the discharge/admit diagnosis. 02/03 21:53 Order name: Amylase, Serum; Complete Time: 00:11 [facility] 02/04 00:15 Interpretation: Within normal limits: MATTHEW 72. 02/03 21:53 Order name: Blood Culture Adult (2) 02/03 21:53 Order name: BMP; Complete Time: 00:11 [facility] 02/04 00:12 Interpretation: Normal except: GFR 36; GLUC 144; BUN 35; CRE 1.80. 02/03 21:53 Order name: CBC with Diff 02/04 00:00 Interpretation: Normal except: WBC 4.3; RBC 3.20; HGB 10.1; HCT 30.0; PLT 92. 02/03 21:53 Order name: Ckmb; Complete Time: 00:11 [facility] 02/04 00:15 Interpretation: Within normal limits: CKMB 2.5. 02/03 21:53 Order name: CPK; Complete Time: 00:11 [facility] 02/03 21:53 Order name: D-Dimer; Complete Time: 23:59 02/03 23:59 Interpretation: Abnormal: D-DIMER 518. 02/03 21:53 Order name: Hepatic Function; Complete Time: 00:11 [facility] 02/04 00:13 Interpretation: Normal except: BILID 0.3. 02/03 21:53 Order name: Lipase; Complete Time: 00:11 02/04 00:16 Interpretation: Within normal limits: LIP 130. 02/03 21:53 Order name: Magnesium; Complete Time: 00:11 02/03 21:53 Order name: NT PRO-BNP; Complete Time: 00:11 02/04 00:13 Interpretation: NT PRO-BNP 6943. [facility] 02/03 21:53 Order name: PT-INR; Complete Time: 23:59 02/03 23:59 Interpretation: Normal except: PT 13.6. 02/03 21:53 Order name: Ptt, Activated; Complete Time: 23:59 02/04 00:00 Interpretation: Within normal limits: PTT 32.2. 02/03 21:53 Order name: Troponin (emerg Dept Use Only); Complete Time: 00:11 [facility] 02/03 21:53 Order name: XRAY CXR (1 view) [facility] 02/03 21:53 Order name: EKG; Complete Time: 21:53 02/03 21:53 Order name: Cardiac monitoring; Complete Time: 22:22 02/03 21:53 Order name: EKG - Nurse/Tech; Complete Time: 22:51 02/03 21:53 Order name: IV Saline Lock; Complete Time: 22:22 02/03 21:53 Order name: Labs collected and sent; Complete Time: 22:22 [facility] 02/03 21:53 Order name: O2 Per Protocol; Complete Time: 22:22 [facility] 02/03 21:53 Order name: O2 Sat Monitoring; Complete Time: 22:22 02/03 21:53 Order name: Urine Dipstick-Ancillary (obtain specimen); Complete Time: 00:40 02/03 23:49 Order name: CBC Smear Scan EDCT 02/04 00:41 Order name: Urine Dipstick--Ancillary (enter results) rg2 Administered Medications: 00:20 Drug: Lasix 40 mg Route: IVP; Site: right forearm; lp1 01:55 Follow up: Urine output 850 ml lp1 Disposition: 02/04/18 00:40 Discharged to Home. Impression: mild CHF. - Condition is Stable. - Discharge Instructions: Shortness of Breath, [id number]. - SBAR form, Medication Reconciliation Form, Thank You Letter, Antibiotic Education, Prescription Opioid Use form. - Follow up: Private Physician; When: Upon discharge from the Emergency Department; Reason: Further diagnostic work-up, Recheck today's complaints, Continuance of care. - Problem is new. - Symptoms have improved. Signatures: Dispatcher [employer] EDMS Lori Salvador RN RN lp1 Tiffany Simpson RN RN ea Wadley, Terrence, MD MD tw4 Corrections: (The following items were deleted from the chart) 01:56 00:40 02/04/2018 00:40 Discharged to Home. Impression: mild CHF. Condition is Stable. lp1 Forms are Medication Reconciliation Form, Thank You Letter, Antibiotic Education, Prescription Opioid Use. Follow up: Private Physician; When: Upon discharge from the Emergency Department; Reason: Further diagnostic work-up, Recheck today's complaints, Continuance of care. Problem is new. Symptoms have improved. tw4
--- NOTE | 2018-02-04 00:40 | ER ---
Nurse's Notes [facility] Name: Blayne Ashford Age: 82 yrs Sex: Male : 1935 Arrival Date: 02/03/2018 Time: 21:50 Bed 6 Private MD: Diagnosis: mild CHF Presentation: 02/03 21:51 Presenting complaint: EMS states: Reports they were called to [facility], pt reports he was feeling short of breath. Facility nurse states pt was history of CHF has not noticed a difference in pt normal status. Reports there has been wt gain of 4 lbs in the last 3 days, O2 sats at 97% in ambulance. Transition of care: patient was received from another setting of care ([facility]. Onset of symptoms was February 03, 2018. Risk Assessment: Do you want to hurt yourself or someone else? Patient reports no desire to harm self or others. Initial Sepsis Screen: Does the patient meet any 2 criteria? No. Patient's initial sepsis screen is negative. Does the patient have a suspected source of infection? No. Patient's initial sepsis screen is negative. Care prior to arrival: None. 21:51 Method Of Arrival: EMS: [facility] ea 21:51 Acuity: LASHANDA 3 ea Historical: - Allergies: 22:22 No Known Allergies; lp1 - Home Meds: 22:01 atorvastatin 40 mg Oral tab 2 tabs nightly [Active]; clopidogrel 75 mg Oral tab once ea daily [Active]; exelon patch daily [Active]; glimepiride 2 mg Oral tab once daily [Active]; isosorbide dinitrate 20 mg Oral tab 2 times per day [Active]; Januvia 50 mg Oral tab once daily [Active]; lactulose 10 gram/15 mL Oral soln 30 mL nightly [Active]; Lasix 40 mg Oral tab 2 times per day [Active]; levothyroxine 100 mcg tab 2 tabs once daily [Active]; losartan 25 mg Oral tab once daily [Active]; metoprolol succinate 25 mg Oral tab twice a day [Active]; omeprazole 20 mg Oral TbEC daily [Active]; Ranexa 1,000 mg Oral Tb12 2 times per day [Active]; Risperdal 0.25 mg Oral tab daily [Active]; Risperdal 0.5 mg Oral tab nightly [Active]; spironolactone 25 mg Oral tab once daily [Active]; tamsulosin 0.4 mg Oral cp24 once daily [Active]; - PMHx: 22:01 Pneumonia; Pacemaker; Myocardial infarction; MUSCLE WEAKNESS; Hypothyroidism; ea Hypertension; Hyperlipidemia; Hematuria; HEART FAILURE; Diabetes - NIDDM; Dementia; COPD; CHF; CAD; BPH; Atrial Fib; angina pectoris; Anxiety; - PSHx: 22:01 Heart stents; CABG; Hernia repair; ea - Immunization history:: Adult Immunizations up to date. - Social history:: Smoking status: Patient/guardian denies using tobacco. - Ebola Screening: : No symptoms or risks identified at this time. Screenin:05 Abuse screen: Denies threats or abuse. Nutritional screening: No deficits noted. ea Tuberculosis screening: No symptoms or risk factors identified. Fall Risk None identified. Assessment: 21:54 General: Appears in no apparent distress. Behavior is calm, cooperative, appropriate lp1 for age. Pain: Denies pain. Neuro: Level of Consciousness is awake, alert, obeys commands, Oriented to person, place, situation. Cardiovascular: Patient's skin is warm and dry. Rhythm is atrial flutter. Respiratory: Reports shortness of breath Airway is patent Trachea midline Respiratory effort is even, unlabored, Respiratory pattern is regular, symmetrical, Breath sounds are clear bilaterally. Onset: The symptoms/episode began/occurred suddenly, the patient reports symptoms have resolved. GI: Abdomen is non-distended. : No signs and/or symptoms were reported regarding the genitourinary system. EENT: No signs and/or symptoms were reported regarding the EENT system. Derm: Skin is pink, warm \T\ dry. Musculoskeletal: Circulation, motion, and sensation intact. 23:09 Reassessment: Patient and/or family updated on plan of care and expected duration. Pain lp1 level reassessed. Patient resting, eyes closed, respirations unlabored. 02/04 00:17 Reassessment: Patient and/or family updated on plan of care and expected duration. Pain ea level reassessed. Pt resting with eyes closed, respirations even and unlabored. Chest expansions even and symmetrical. No s/s of pain or discomfort noted at this time. 00:30 Reassessment: Spoke with Tanya Martínez RN at [facility] about patient's pending lp1 discharge; She will call back about update on transportation back to facility. 01:12 Reassessment: Update of [facility] to transport patient in 45 min. lp1 01:51 Reassessment: Patient appears in no apparent distress at this time. Patient is alert, lp1 oriented x 3, equal unlabored respirations, skin warm/dry/pink. Patient states feeling better. Vital Signs: 02/03 22:02 BP 142 / 62; Pulse 64; Resp 18; Temp 98.7; Pulse Ox 97% ; Weight 71.21 kg; Height 5 ft. ea 7 in. (170.18 cm); Pain 0/10; 23:00 BP 117 / 59; Pulse 60; Resp 16; Pulse Ox 97% on R/A; lp1 02/04 00:14 BP 110 / 73; Pulse 60; Resp 18; Pulse Ox 98% on R/A; ea 01:30 BP 110 / 64; Pulse 59; Resp 17; Pulse Ox 97% on R/A; lp1 02/03 22:02 Body Mass Index 24.59 (71.21 kg, 170.18 cm) ea ED Course: 02/03 21:50 Patient arrived in ED. am2 21:51 Arm band placed on right wrist. Patient placed in an exam room, on a stretcher. ea 21:51 Patient has correct armband on for positive identification. Placed in gown. Bed in low ea position. Call light in reach. Side rails up X2. 21:52 Hao Brock MD is Attending Physician. tw4 21:54 Lori Salvador, CARLEY is Primary Nurse. lp1 21:55 Triage completed. ea 22:10 Inserted saline lock: 20 gauge in right forearm, using aseptic technique. Blood lp1 collected. 22:10 First set of blood cultures drawn by me. lp1 22:20 X-ray completed. Portable x-ray completed in exam room. Patient tolerated procedure az well. 22:21 XRAY CXR (1 view) In Process Unspecified. EDMS 02/04 01:20 No provider procedures requiring assistance completed. lp1 01:55 IV discontinued, No redness/swelling at site. Pressure dressing applied. lp1 Administered Medications: 00:20 Drug: Lasix 40 mg Route: IVP; Site: right forearm; lp1 01:55 Follow up: Urine output 850 ml lp1 Output: 00:27 Urine: 350ml (Voided); Total: 350ml. lp1 01:55 Urine: 850ml; Total: 1200ml. lp1 Outcome: 00:40 Discharge ordered by . tw4 01:55 Discharged to senior living. Report called to CARLEY Ortega lp1 01:55 Condition: good 01:55 Discharge instructions given to patient, senior living, Instructed on discharge instructions, Demonstrated understanding of instructions. 01:56 Patient left the ED. lp1 Signatures: Dispatcher [employer] EDMS Lori Salvador RN RN lp1 Claritza Goldberg am2 Tiffany Simpson RN RN ea Wadley, Terrence, MD MD tw4 Bharati Varma Corrections: (The following items were deleted from the chart) 02/03 22:21 21:54 Respiratory: Airway is patent Trachea midline Respiratory effort is even, lp1 unlabored, Respiratory pattern is regular, symmetrical, Breath sounds are clear bilaterally. [email or web address] 02/04 00:59 02/03 21:51 Transition of care: patient was not received from another setting of care. anmol corea 02/04 01:05 02/03 21:54 Cardiovascular: Patient's skin is warm and dry. Rhythm is sinus rhythm lp1 lp1
[2018-02-04 02:01] VITALS: TEMP 98.7
[2018-02-04 02:05] VITALS: BP 110/64; O2SAT 97
[2018-02-04 03:05] LABS: Urine Blood NEGATIVE (NEG); Urine Glucose NEGATIVE (NEG); Urine Protein NEGATIVE (NEG); Urine Specific Gravity 1.015 (1.005-1.030)
--- NOTE | 2018-02-04 06:45 | EKG ---
Test Date: 2018-02-03 Test Time: 22:27:16 [employer]: [employer] MEASUREMENT RESULTS: Intervals: Rate: 60 LA: QRSD: 90 QT: 396 QTc: 396 [place]: P: 75 LA: QRS: -27 T: 125 INTERPRETIVE STATEMENTS: Atrial flutter with variable AV block Anterolateral infarct, age undetermined T wave abnormality, consider inferior ischemia Abnormal ECG Compared to ECG 01/24/2018 00:04:01 T-wave abnormality now present Possible ischemia now present Left ventricular hypertrophy no longer present Myocardial infarct finding still present Electronically Signed On 02-04-18 06:44:34 CDT by Phil Diaz
--- NOTE | 2018-02-04 08:10 | RAD REPORT ---
EXAM DESCRIPTION: RAD - Chest Single View - 02/03/2018 10:24 pm CLINICAL HISTORY: DYSPNEA<Reason For Exam>DYSPNEA COMPARISON: Chest Single View dated 01/23/2018; Chest Single View dated 01/11/2018; Chest Single View d ated 01/03/2018; Chest Single View dated 12/30/2017<Comparisons> TECHNIQUE: AP portable chest image was obtained 2210 hours . FINDINGS: Chronic interstitial lung disease is present. No peripheral mass or consolidation. Cardiom egaly is present without vascular engorgement. Significant failure or volume overload doubtful. [place] otomy wires are in place. Defibrillator remains in place. No measurable pleural effusion and no pneum othorax. No gross bony abnormality seen. No acute aortic findings suspected. IMPRESSION: Chronic interstitial lung disease and chronic cardiomegaly. No significant failure or volume overload.
== END 2018-02-04 01:56 | disposition home or self-care (01) ==
LOC: ER 21:50
DX: I50.9 Heart failure, unspecified (principal); I10 Essential (primary) hypertension; E11.9 Type 2 diabetes mellitus without complications; E78.5 Hyperlipidemia, unspecified; E03.9 Hypothyroidism, unspecified; I48.91 Unspecified atrial fibrillation; Z95.0 Presence of cardiac pacemaker; Z95.1 Presence of aortocoronary bypass graft; Z95.818 Presence of other cardiac implants and grafts
CPT/HCPCS: 36415; 71045; 80048; 80076; 81003; 82150; 82550; 82553; 83690; 83735; 83880; 84484; 85025; 85379; 85610; 85730; 87040; 93005; 96374; 99284

== ENCOUNTER 2018-07-05 17:49 | Inpatient (IN) | payer OTHER ==
--- OUTSIDE RECORDS SUMMARY | 2018-07-05 18:00 | XMS REPORT | Clinical Summary ---
:1935 Author Organization [facility] Address [address] [place] [address] Care Team Providers Name Role Phone Mulugeta Newman Primary Care Provider Allergies No Known Allergies Medications Medication Sig Dispensed Refills Start Date End Date Status glimepiride (AMARYL) 2 Take 2 mg by 0 Active MG tablet mouth every morning before breakfast. isosorbide dinitrate Take 20 mg by 0 Active (ISORDIL) 20 MG tablet mouth 2 (two) times daily. SITagliptin (JANUVIA) 50 Take 50 mg by 0 Active MG tablet mouth daily. furosemide (LASIX) 40 MG Take 40 mg by 0 Active tablet mouth 2 (two) times daily. levothyroxine Take 200 mcg by 0 Active (SYNTHROID, LEVOTHROID) mouth Every 200 MCG tablet morning on an empty stomach. losartan (COZAAR) 25 MG Take 25 mg by 0 Active tablet mouth daily. omeprazole (PRILOSEC) 20 Take 20 mg by 0 Active MG capsule mouth daily. risperiDONE (RISPERDAL) Take 0.25 mg by 0 Active 0.25 MG tablet mouth daily Take am daily . risperiDONE (RISPERDAL) Take 0.5 mg by 0 Active 0.5 MG tablet mouth daily Take at 5 pm . spironolactone Take 25 mg by 0 Active (ALDACTONE) 25 MG tablet mouth daily. lactulose (CHRONULAC) 10 Take 20 g by 0 Active gram/15 mL (15 mL) mouth nightly. solution ranolazine (RANEXA) Take 500 mg by 0 Active 1,000 mg SR tablet mouth 2 (two) times daily. tamsulosin (FLOMAX) 0.4 Take 0.4 mg by 0 Active mg Cp24 24 hr capsule mouth daily. rivastigmine (EXELON) Place onto the 0 Active 13.3 mg/24 hour PT24 skin. metoprolol (TOPROL-XL) Take 25 mg by 0 Active 25 MG 24 hr tablet mouth 2 (two) times daily. clopidogrel (PLAVIX) 75 Take 75 mg by 0 Active mg tablet mouth daily. atorvastatin (LIPITOR) Take 80 mg by 0 Active 80 MG tablet mouth daily At bedtime . 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 12/20/2017 Encounters Date Type Specialty Care Team Description 12/20/2017 Surgery Dwayne Flores AICD GENERATOR - REMOVE & MD REPLACE (SINGLE LEAD) 12/20/2017 Hospital Encounter Dwayne Flores ICD (implantable MD cardioverter-defibrillator ) battery depletion 12/17/2017 Orders Only Dwayne Flores MD after 07/04/2017 Social History Tobacco Use Types Packs/Day Years Used Date Former Smoker Smokeless Tobacco: Never Used Alcohol Use Drinks/Week oz/Week Comments No Sex Assigned at Date Recorded Not on file Job Start Date Occupation Industry Not on file Not on file Not on file Travel History Travel Start Travel End No recent travel history available. 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 / Identifier Expiration Serial / Date Lot Inogen El Icd Vr Defibrillators N/A: [place] 07/10/2019 [id number] / Implanted: Qty: 1 on 12/20/2017 by Dwayne Flores MD Chest SCIENTIFIC [id number] / Procedures Procedure Name Priority Date/Time Associated Diagnosis Comments CARDIAC CATH REPORT - 12/24/2017 5:44 PM SCAN CDT ARRYTHMIA IMPLANT 12/23/2017 12:30 PM REPORT - SCAN CDT AICD GENERATOR - 12/20/2017 7:20 AM Dilated cardiomyopathy REMOVE & REPLACE CDT (HCC) (SINGLE LEAD) Case Notes 1st \\CASE POP6 CBC W/PLT COUNT & AUTO STAT 12/20/2017 7:05 AM CDT Results for this DIFFERENTIAL procedure are in the results section. PROTHROMBIN TIME/INR STAT 12/20/2017 7:05 AM CDT CBC W/PLT COUNT & AUTO STAT 12/20/2017 7:05 AM CDT Results for this DIFFERENTIAL procedure are in the results section. BASIC METABOLIC PANEL (7) STAT 12/20/2017 7:05 AM CDT ECG 12-LEAD Routine 12/20/2017 7:00 AM CDT Procedure Note - Interface, External Ris In - 12/20/2017 7:05 AM CDT Ventricular Rate 58 BPM Atrial Rate 232 BPM QRS Duration 98 ms Q-T Interval 426 ms QTC Calculation(Bazett) 418 ms P Stem 45 degrees R Stem -25 degrees T Stem 139 degrees Atrial flutter with variable A-V block with premature ventricular or aberrantly conducted complexes Possible Anterior infarct , age undetermined ST & T wave abnormality, consider inferolateral ischemia Abnormal ECG No previous ECGs available ECG 12-LEAD Routine 12/20/2017 7:00 AM CDT after 07/04/2017 Results CARDIAC CATH REPORT - SCAN (12/24/2017 5:44 PM CDT) Narrative Performed At ARRYTHMIA IMPLANT REPORT - SCAN (12/23/2017 12:30 PM CDT) Narrative Performed At CBC with platelet count + automated diff (12/20/2017 7:05 AM CDT) WBC 4.6 3.5 - 10.5 K/L [facility] RBC 3.33 (L) 4.63 - 6.08 M/L [facility] Hemoglobin 10.1 (L) 13.7 - 17.5 GM/DL [facility] Hematocrit 31.9 (L) 40.1 - 51.0 % [facility] MCV 95.8 (H) 79.0 - 92.2 fL [facility] MCH 30.3 25.7 - 32.2 pg [facility] MCHC 31.7 (L) 32.3 - 36.5 GM/DL [facility] RDW 17.4 (H) 11.6 - 14.4 % [facility] Platelets 99 (L) 150 - 450 K/CU MM [facility] MPV 11.0 9.4 - 12.4 fL [facility] nRBC 0 0 - 0 /100 WBC [facility] % Neutros 68 % [facility] % Lymphs 20 % [facility] % Monos 9 % [facility] % Eos 2 % [facility] % Baso 0 % [facility] # Neutros 3.12 1.78 - 5.38 K/L [facility] # Lymphs 0.93 (L) 1.32 - 3.57 K/L [facility] # Monos 0.40 0.30 - 0.82 K/L [facility] # Eos 0.09 0.04 - 0.54 K/L [facility] # Baso 0.01 0.01 - 0.08 K/L [facility] Immature Granulocytes-Relative 0 0 - 1 % [facility] Specimen Blood - Arm, Left Performing Organization Address City/State/Zipcode Phone Number [facility] [address] [place] [address] [phone] CENTER Prothrombin time/INR (12/20/2017 7:05 AM CDT) Protime 15.1 (H) 11.7 - 14.7 seconds [facility] INR 1.2 <=5.9 [facility] Specimen Blood - Arm, Left Narrative Performed At [facility] RECOMMENDED COUMADIN/WARFARIN INR THERAPY RANGES STANDARD DOSE: 2.0 - 3.0 Includes: PROPHYLAXIS for venous thrombosis, systemic embolization; TREATMENT for venous thrombosis and/or pulmonary embolus. HIGH RISK: Target INR is 2.5-3.5 for patients with mechanical heart valves. Performing Organization Address [facility] Cent[facility] Phone Number [address] [address] [place] Basic metabolic panel (12/20/2017 7:05 AM CDT) Sodium 142 136 - 145 meq/L [facility] Potassium 4.1 3.5 - 5.1 meq/L [facility] Chloride 105 98 - 107 meq/L [facility] CO2 28 22 - 29 meq/L [facility] BUN 30 (H) 7 - 21 mg/dL [facility] Creatinine 1.90 (H) 0.57 - 1.25 mg/dL [facility] Glucose 118 (H) 70 - 105 mg/dL [facility] Calcium 9.1 8.4 - 10.2 mg/dL [facility] EGFR 34Comment: ESTIMATED GFR IS mL/min/1.73 sq m [facility] NOT ACCURATE CREATININE [facility] CENTER CLEARANCE IN PREDICTING GLOMERULAR FILTRATION RATE. ESTIMATED GFR IS NOT APPLICABLE FOR DIALYSIS PATIENTS. Specimen Blood - Arm, Left Performing Organization Address [facility] Centercode Phone Number [address] [address] [phone] [place] ECG 12 lead (12/20/2017 7:00 AM CDT) Narrative Performed At Ventricular Rate 58 BPM GE MUSE Atrial Rate 232 BPM QRS Duration 98 ms Q-T Interval 426 ms QTC Calculation(Bazett) 418 ms P Stem 45 degrees R Stem -25 degrees T Stem 139 degrees Atrial flutter with variable A-V block with premature ventricular or aberrantly conducted complexes Abnormal ECG No previous ECGs available Confirmed by James BEJARANO MICHAEL ([id number]) on 12/20/2017 7:33:36 AM Procedure Note Interface, External Ris In - 12/20/2017 7:33 AM CDT Ventricular Rate 58 BPM Atrial Rate 232 BPM QRS Duration 98 ms Q-T Interval 426 ms QTC Calculation(Bazett) 418 ms P Stem 45 degrees R Stem -25 degrees T Stem 139 degrees Atrial flutter with variable A-V block with premature ventricular or aberrantly conducted complexes Abnormal ECG No previous ECGs available Confirmed by James BEJARANO MICHAEL ([id number]) on 12/20/2017 7:33:36 AM Performing Organization Address City/State/Zipcode Phone Number GE MUSE after 07/04/2017 Insurance Payer Benefit Plan / Subscriber ID Type Phone Address Group [employer] - [employer] MEDICARE xxxxxxxx Maps Contracted [phone] [address] MEDICARE MGD HMO POS [id number] [place] [address] MEDICAID MEDICAID OF xxxxxxxxx Medicaid [place] Advance Directives Patient has advance care planning documents, and code status on file. For more information, please contact:[address] [phone] Code Status Date Activated Date Inactivated Comments Full Code 12/20/2017 6:40 AM 12/20/2017 3:38 PM This code status was determined by: Patient
--- OUTSIDE RECORDS SUMMARY | 2018-07-05 18:11 | XMS REPORT | Continuity of Care Document ---
:1935 Author Organization Interface Problems Problem Status Onset Classification Date Comments Source Date Reported Irritability and anger The [address] [place] [address] Anger reaction The [address] [place] [address] Dementia The [address] [place] [address] FALL ON BLOODTHINNERS Active 08/06/ The 2018 [place] Discharge Diagnosis: [facility] Chronic renal 2017 7 insufficiency Discharge Diagnosis: [facility] Chronic CHF 2017 7 ABNORMAL LABS Active 05/30/ [facility] 2016 AFIB/DIZZY Active 11/02/ [facility] 2017 CP Active 12/27[facility] 2015 UNSTABLE ANGINA Active 05/16/ [address] CHRONIC SYSTOLIC HEART Active 06/22/ [facility] FAILURE 428.22 ANGINA 2012 413.9 CHRONIC SYSTOLIC HEART Active 06/22/ [facility] FAILURE 428.22 ANGINA 2012 413.9. Heart failure Active Problem [facility] 2 Heart failure Active Problem [facility] Outpatient 5 Imaging [facility] CAD (<span Active Problem [place] [id number]">Conf 7 Medical irmed</span>) [facility] Heart failure Active Problem [facility] Outpatient 7 Imaging [facility] HTN (<span Resolved Problem [place] [id number]">Conf 7 Medical irmed</span>) [facility] [place] (<span Resolved Problem [place] [id number]">Conf 7 Medical irmed</span>) [facility] Presence of automatic Active Problem Cardiovascular cardiac defibrillator 9 [facility]oc 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 Presence of coronary Active Problem Cardiovascular angioplasty implant 9 [facility]oc and graft Type 2 diabetes Active Problem Cardiovascular mellitus without 9 [facility] complications Hyperlipidemia, Active Problem Cardiovascular unspecified 9 [facility]oc Hypothyroidism, Active Problem Cardiovascular unspecified 9 [facility] Chronic systolic heart Active Problem Cardiovascular failure 9 [facility] Acute on chronic Active Problem Cardiovascular systolic heart failure 9 [facility] Paroxysmal atrial Active Problem Cardiovascular fibrillation 9 [facility] Arteriovenous fistula, Active Problem Cardiovascular acquired 9 [facility]oc Non-ST elevation Active Problem Cardiovascular myocardial infarction 9 [facility] Coronary Active Diagnosis Cardiovascular atherosclerosis of 5 [facility] [place] vessel Diabetes mellitus type Active Problem Cardiovascular [...] 6 Assoc Unspecified dementia The without behavioral [address] [place] [address] disturbance Laceration without The foreign body of left [address] [place] [address] elbow, initial encounter Abrasion of scalp, The initial encounter [address] [place] [address] Abrasion of right The forearm, initial [address] [place] [address] encounter Striking against other The stationary object, [address] [place] [address] initial encounter Essential hypertension The [address] [place] [address] 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[place] 8 [place] coronary artery without angina 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 [address] [place] [address] Personal history of The nicotine dependence 8 [place] Encounter for The immunization 8 [place] CAD (<span Active Problem [facility] ID="[id number]">Conf 8 Medical irmed</span>) [facility] [place] Heart failure Active Problem [facility] Outpatient 8 Imaging [facility] HTN (<span Resolved Problem [facility] ID="[id number]">Conf 8 Medical irmed</span>) Center,[facility] [place] (<span Resolved Problem [facility] ID="[id number]">Conf 8 Medical irmed</span>) Center,[facility] CHR SYSTOLIC HRT Active [facility] FAILURE ANGINA PECTORIS, Active [facility] UNSPECIFIED Medical Center ENCOUNTER FOR Active [facility] SCREENING FOR [facility] MALIGNANT NE NON-ST ELEVATION Active [facility] (NSTEMI) MYOCARDIAL INF CHEST PAIN, Active [facility] UNSPECIFIED UNSPECIFIED ATRIAL Active [facility] FIBRILLATION Medications Medication Details Route Status Patient Ordering Order Source Instructions Provider Date Saline Flush 10 mL, Inactive The 0.9% Route: IVP2017 [place] Drug Form: INJ, Dosing Weight 83.182, kg, PRN, PRN Line Flush, Start date: 08/06/17 1:02:00 HYDRAULIC LIFT OPERATOR, Duration: 30 day, Stop date: 09/05/17 2:01:00 CDTNotes: Same as: BD Posiflush Sterile Saline Flush 10 mL, Inactive 0.9% Route: IVP2016 [facility] Drug Form: INJ, Dosing Weight 83.182, kg, PRN, PRN Line Flush, Start date: 05/30/17 11:48:00 HYDRAULIC LIFT OPERATOR, Duration: 1 day, Stop date: 05/31/17 11:47:00 CSTNotes: (Same as: BD Posiflush) Corlanor 1 tab(s) orally Active 5 mg orally 2 [place] 12/07/ Cardiovasc times a day 2016 [facility] (with meals) Atorvastatin 1 tab(s) orally Active 40 mg orally [place] 11/15/ Cardiovasc Calcium once a day 2016 [facility] apixaban 2.5 mg 2.5 mg=1 Active oral tablet tab, PO, 2016 Q12H, # 60 tab, 0 Refill(s) 24 HR 25 mg=1 Active Metoprolol tab, PO, 2016 Tartrate 25 MG Q12H, # 60 Extended tab, 0 Release Tablet Refill(s) [Toprol] glimepiride 1 mg, No Longer Route: PO, Active 2016 [facility] Daily, Dosing Weight 85, kg, Start date: 11/03/16 9:00:00 CDT, Duration: 30 day, Stop date: 12/02/16 9:00:00 CDT Furosemide 40 40 mg, 1 Inactive MG Oral Tablet tab, Route: 2016 [facility] PO, Drug form: TAB, Daily, Dosing Weight 85, kg, Start date: 11/03/16 9:00:00 CDT, Duration: 30 day, Stop date: 12/02/16 9:00:00 CDTNotes: (Same as: Lasix) May cause GI upset. Give with food or milk. Losartan 50 mg, 1 Inactive tab, Route: 2016 [facility] PO, Drug form: TAB, Daily, Dosing Weight 85, kg, Start date: 11/03/16 9:00:00 CDT, Duration: 30 day, Stop date: 12/02/16 9:00:00 CDTNotes: (Same as: Zohra) Glucotrol 5 mg, 1 Inactive tab, Route: 2016 [facility] PO, Drug form: TAB, Daily, Start date: 11/03/16 9:00:00 CDT, Duration: 30 day, Stop date: 12/02/16 9:00:00 CDTNotes: (Same as: Glucotrol) 30 min before meals. Eliquis 2.5 mg, 1 Inactive tab, Route: 2016 [facility] PO, Drug form: TAB, Q12H, Dosing Weight 83.636, kg, Start date: 11/03/16 9:00:00 CDT, Duration: 30 day, Stop date: 12/02/16 21:00:00 CDTNotes: Same as: Eliquis tamsulosin 0.4 mg, 1 Inactive cap, Route: 2016 [facility] PO, Drug form: CAP, Daily, Dosing Weight 85, kg, Start date: 11/03/16 9:00:00 CDT, Duration: 30 day, Stop date: 12/02/16 9:00:00 CDTNotes: (Same As: Flomax) "Do Not Crush" Aldactone 25 mg, 1 Inactive tab, Route: 2016 [facility] PO, Drug form: TAB, Daily, Dosing Weight 85, kg, Start date: 11/03/16 9:00:00 CDT, Duration: 30 day, Stop date: 12/02/16 9:00:00 CDTNotes: (Same As: Aldactone) Synthroid 200 Inactive microgram, 2016 [facility] 2 tab, Route: PO, Drug form: TAB, Q630AM, Dosing Weight 85, kg, Start date: 11/03/16 6:30:00 CDT, Duration: 30 day, Stop date: 12/02/16 6:30:00 CDTNotes: Take 1 hour before or 2 hours after meal; Enteral feeds may interefere with the absorption of this medication. (Same as:Levothro id, Synthroid) Insulin, 3 unit, No Longer Aspart, Human 0.03 mL, Active 2016 [facility] Route: SUB-Q, Drug form: SOLN, Bedtime, Dosing [...] Glucagon 1 mg, Inactive Route: IM, 2016 [facility] PRN, Dosing Weight 83.636, kg, PRN Blood Glucose Results, Start date: 11/02/16 21:49:00 CDT, Duration: 30 day, Stop date: 12/02/16 21:48:00 CDT Dextrose 50% 25 mL, Inactive Syringe Route: IVP, 2016 [facility] Dosing Weight 83.636, kg, PRN, PRN Blood Glucose Results, Start date: 11/02/16 21:49:00 CDT, Duration: 30 day, Stop date: 12/02/16 21:48:00 CDT Morphine 2 mg, 1 mL, No Longer Route: IVP, Active 2016 [facility] Drug form: INJ, Q4H, Dosing Weight 83.636, kg, PRN Pain Score 7-10, Start date: 11/02/16 21:45:00 CDT, Duration: 30 day, Stop date: 12/02/16 21:44:00 CDTNotes: (Same as:MORPhine Sulfate) Benadryl 25 mg, 1 Inactive tab, Route: 2016 [facility] PO, Drug form: TAB, ONCE, Dosing Weight 83.636, kg, PRN Insomnia, Start date: 11/02/16 21:43:00 CDT Lipitor 10 mg, 1 No Longer tab, Route: Active 2016 [facility] PO, Drug form: TAB, Bedtime, Dosing Weight 85, kg, Start date: 11/02/16 21:00:00 CDT, Duration: 30 day, Stop date: 12/01/16 21:00:00 CDTNotes: (Same As: Lipitor) Ranexa 1,000 mg, 2 No Longer tab, Route: Active 2016 [facility] PO, Drug form: TAB, Q12H, Dosing Weight 85, kg, Start date: 11/02/16 21:00:00 CDT, Duration: 30 day, Stop date: 12/02/16 9:00:00 CDTNotes: Same as Ranexa "Do Not Crush" Prilosec 20 mg, Inactive Route: PO, 2016 [facility] Drug form: DRC, Bedtime, Dosing Weight 85, kg, Start date: 11/02/16 21:00:00 CDT, Duration: 30 day, Stop date: 12/01/16 21:00:00 CDT 24 HR 25 mg, 1 No Longer Metoprolol tab, Route: Active 2016 [facility] Tartrate 25 MG PO, Drug Extended form: Release Tablet ERTAB, [Toprol] Q12H, Start date: 11/02/16 21:00:00 CDT, Duration: 30 day, Stop date: 12/02/16 9:00:00 CDTNotes: (Same as: Toprol XL) Do Not Crush Hydralazine 10 mg, 0.5 No Longer mL, Route: Active 2016 [facility] IVP, Drug form: INJ, Q4H, Dosing Weight 85, kg, PRN Hypertensio n, Start date: 11/02/16 16:38:00 CDT, Duration: 30 day, Stop date: 12/02/16 16:37:00 CDTNotes: (Same as: Apresoline) Push over 5 minutes clopidogrel 75 mg, 1 No Longer tab, Route: Active 2016 [facility] PO, Drug form: TAB, Daily, Dosing Weight 85, kg, Start date: 11/02/16 16:30:00 CDT, Duration: 30 day, Stop date: 12/02/16 9:00:00 CDTNotes: (Same As: Plavix) aspirin 81 mg 81 mg, 1 No Longer tablet, enteric tab, Route: Active 2016 [facility] coated PO, Drug form: ECTAB, Daily, Dosing Weight 85, kg, Start date: 11/02/16 16:30:00 CDT, Duration: 30 day, Stop date: 12/02/16 9:00:00 CDTNotes: Do not crush or chew. (Same As: Ecotrin) Protonix 40 mg, 1 No Longer tab, Route: Active 2016 [facility] PO, Drug form: ECTAB, Before Dinner, Start date: 11/02/16 16:30:00 CDT, Duration: 30 day, Stop date: 12/01/16 16:30:00 CDTNotes: Tablet should not be chewed or crushed. (Same as: Protonix) 24 HR 25 mg, 1 Inactive Metoprolol tab, Route: 2016 [facility] Tartrate 25 MG PO, Drug Extended form: Release Tablet ERTAB, [Toprol] Daily, Start date: 11/02/16 16:30:00 CDT, Duration: 30 day, Stop date: 12/02/16 9:00:00 CDTNotes: (Same as: Toprol XL) Do Not Crush 24 HR 12.5 mg, No Longer Metoprolol PO, Daily, Active 2016 [facility] Tartrate 25 MG 0 Refill(s) Extended Release Tablet [Toprol] Insulin, 5 unit, No Longer Aspart, Human 0.05 mL, Active 2016 [facility] Route: SUB-Q, Drug form: SOLN, TID-Before Meals, [...] mg, No Longer Route: IM, Active 2016 [facility] Drug form: PDR/INJ, PRN, Dosing Weight 85, kg, PRN Blood Glucose Results, Start date: 11/02/16 14:36:00 CDT, Duration: 30 day, Stop date: 12/02/16 14:35:00 CDT Dextrose 50% 25 gm, 50 No Longer Syringe mL, Route: Active 2016 [facility] IVP, Drug Form: INJ, Dosing Weight 85, kg, PRN, PRN Blood Glucose Results, Start date: 11/02/16 14:36:00 CDT, Duration: 30 day, Stop date: 12/02/16 14:35:00 CDT Metoprolol 5 mg, 5 mL, No Longer Route: IVP, Active 2016 [facility] Drug form: INJ, Q4H, Dosing Weight 85, kg, PRN Tachycardia , Start date: 11/02/16 14:28:00 CDT, Duration: 30 day, Stop date: 12/02/16 14:27:00 CDTNotes: (Same as: Lopressor) Push over 2 minutes Lasix 1 tab(s) orally Active 40 mg orally [place] 09/25/ Cardiovasc once a day 2016 [facility] atorvastatin 10 10 mg=1 Active [place] Oral Tablet tab, PO, 2015 [Lipitor] Bedtime carvedilol 6.25 mg=2 Active 3.125 mg oral tab, PO, 2015 [facility] tablet BID, 0 Refill(s) Aspirin 81 MG 81 mg, 1 No Longer Enteric Coated tab, Route: Active 2015 [facility] Tablet PO, Drug form: ECTAB, Daily, Dosing Weight 83.455, kg, Start date: 12/30/15 9:00:00 CDT, Duration: 30 day, Stop date: 01/28/16 9:00:00 CDTNotes: Do not crush or chew. (Same As: Ecotrin) Furosemide 40 40 mg, 1 Inactive MG Oral Tablet tab, Route: 2015 [facility] PO, Drug form: TAB, Daily, Dosing Weight 83.455, kg, Start date: 12/30/15 9:00:00 CDT, Duration: 30 day, Stop date: 01/28/16 9:00:00 CDTNotes: (Same as: Lasix) May cause GI upset. Give with food or milk. Aspirin 325 MG 325 mg, 1 Inactive Enteric Coated tab, Route: 2015 [facility] Tablet PO, Drug form: TAB, Daily, Dosing Weight 83.455, kg, Start date: 12/30/15 9:00:00 CDT, Duration: 30 day, Stop date: 01/28/16 9:00:00 CDTNotes: Take with food. clopidogrel 75 mg, No Longer Route: PO, Active 2015 [facility] Drug form: TAB, Daily, Dosing Weight 83.455, kg, Start date: 12/30/15 9:00:00 CDT, Duration: 30 day, Stop date: 01/28/16 9:00:00 CDT Losartan 50 mg, 1 Inactive tab, Route: 2015 [facility] PO, Drug form: TAB, Daily, Dosing Weight 83.455, kg, Start date: 12/30/15 9:00:00 CDT, Duration: 30 day, Stop date: 01/28/16 9:00:00 CDTNotes: (Same as: Cozaar) Synthroid 200 Inactive microgram, 2015 [facility] 2 tab, Route: PO, Drug form: TAB, Daily, Dosing Weight 83.455, kg, Start date: 12/30/15 6:30:00 CDT, Duration: 30 day, Stop date: 01/28/16 6:30:00 CDTNotes: Take 1 hour before or 2 hours after meal; Enteral feeds may interefere with the absorption of this medication. (Same as:Levothro id, Synthroid) Coreg 6.25 mg, 2 No Longer tab, Route: Active 2015 [facility] PO, Drug form: TAB, BID, Dosing Weight 83.455, kg, Start date: 12/29/15 21:00:00 CDT, Duration: 30 day, Stop date: 01/28/16 9:00:00 CDTNotes: Give with food. (Same As: Coreg) Lipitor 40 mg, 1 Inactive tab, Route: 2015 [facility] PO, Drug form: TAB, Bedtime, Start date: 12/29/15 21:00:00 CDT, Duration: 30 day, Stop date: 01/27/16 21:00:00 CDTNotes: (Same as: Lipitor) rosuvastatin 10 rosuvastati No Longer mg tab n 10 mg Active 2015 [facility] tab, 20 mg, 2 tab, Drug form: MISC, Route: PO, Bedtime, 12/29/15 21:00:00 CDT, Duration: 30 day, Stop date: 01/27/16 21:00:00 CDTNotes: (Same as: Crestor) Crestor 20 mg, Inactive Route: PO, 2015 [facility] Drug form: TAB, Bedtime, Dosing Weight 83.455, kg, Start date: 12/29/15 21:00:00 CDT, Duration: 30 day, Stop date: 01/27/16 21:00:00 CDT Ranexa 1,000 mg, 2 No Longer tab, Route: Active 2015 [facility] PO, Drug form: TAB, BID, Dosing Weight 83.455, kg, Start date: 12/29/15 21:00:00 CDT, Duration: 30 day, Stop date: 01/28/16 9:00:00 CDTNotes: Same as Ranexa "Do Not Crush" Prilosec 20 mg, Inactive Route: PO, 2015 [facility] Drug form: DRC, Bedtime, Dosing Weight 83.455, kg, Start date: 12/29/15 21:00:00 CDT, Duration: 30 day, Stop date: 01/27/16 21:00:00 CDT tamsulosin 0.4 mg, 1 No Longer 07/21/ MH cap, Route: Active 2015 [facility] PO, Drug form: CAP, Daily, Dosing Weight 83.455, kg, Start date: 12/29/15 18:00:00 CDT, Duration: 30 day, Stop date: 01/27/16 18:00:00 CDTNotes: (Same As: Flomax) "Do Not Crush" Aldactone 25 mg, 1 No Longer tab, Route: Active 2015 [facility] PO, Drug form: TAB, BID, Dosing Weight 83.455, kg, Start date: 12/29/15 17:00:00 CDT, Duration: 30 day, Stop date: 01/28/16 9:00:00 CDTNotes: (Same As: Aldactone) glimepiride 1 mg, 0.5 No Longer tab, Route: Active 2015 [facility] PO, Drug form: TAB, BID-Meals, Dosing Weight 83.455, kg, Start date: 12/29/15 17:00:00 CDT, Duration: 30 day, Stop date: 01/28/16 8:00:00 CDTNotes: (Same as: Amaryl) Protonix 40 mg, 1 No Longer tab, Route: Active 2015 [facility] PO, Drug form: ECTAB, Before Dinner, Start date: 12/29/15 16:30:00 CDT, Duration: 30 day, Stop date: 01/27/16 16:30:00 CDTNotes: Tablet should not be chewed or crushed. (Same as: Protonix) Acetaminophen 1 tab, No Longer 325 MG / Route: PO, Active 2015 [facility] Hydrocodone Drug Form: Bitartrate 7.5 TAB, Dosing MG Oral Tablet Weight [[place] 7.5/325] 83.455, kg, Q6H, PRN Pain Score 4-6, Start date: 12/29/15 16:20:00 CDT, Duration: 30 day, Stop date: 01/28/16 16:19:00 CDTNotes: Same as [place] 325-7.5mg Do not exceed 4gm/day of acetaminoph en. Nitroglycerin 0.4 mg, 1 No Longer tab, Route: Active 2015 [place], Drug form: TAB, Q5Min, Dosing Weight 83.455, kg, PRN Chest Pain, Start date: 12/29/15 15:39:00 CDT, Duration: 30 day, Stop date: 01/28/16 15:38:00 CDTNotes: (Same as:Nitroqui ck, Nitrostat) "Do Not Crush" Sublingual tablet Famotidine 20 mg, 1 No Longer tab, Route: Active 2015 [facility] PO, Drug form: TAB, Q12H, Dosing Weight 83.455, kg, PRN Heartburn, Start date: 12/29/15 15:39:00 CDT, Duration: 30 day, Stop date: 01/28/16 15:38:00 CDTNotes: (Same as: Pepcid) Nitroglycerin 0.4 mg, Inactive Route: 2015 [facility] Transdermal , PRN, Dosing Weight 83.455, kg, PRN Abnormal Lab Result, Start date: 12/29/15 15:36:00 CDT, Duration: 30 day, Stop date: 01/28/16 15:35:00 CDT Insulin, 4 unit, No Longer Aspart, Human 0.04 mL, Active 2015 [facility] Route: SUB-Q, Drug form: SOLN, Bedtime, Dosing [...] mg, No Longer Route: IM, Active 2015 [facility] Drug form: PDR/INJ, PRN, Dosing Weight 83.455, kg, PRN Blood Glucose Results, Start date: 12/29/15 14:46:00 CDT, Duration: 30 day, Stop date: 01/28/16 14:45:00 CDT Dextrose 50% 25 gm, 50 No Longer Syringe mL, Route: Active 2015 [facility] IVP, Drug Form: INJ, Dosing Weight 83.455, kg, PRN, PRN Blood Glucose Results, Start date: 12/29/15 14:46:00 CDT, Duration: 30 day, Stop date: 01/28/16 14:45:00 CDT Acetaminophen 650 mg, 2 No Longer tab, Route: Active 2015 [facility] PO, Drug form: TAB, Q6H, Dosing Weight 83.455, kg, PRN Pain Score 1-3, Start date: 12/29/15 12:43:00 CDT, Duration: 30 day, Stop date: 01/28/16 12:42:00 CDTNotes: Do not exceed 4 gm/day. (Same as: Tylenol) Sodium Chloride 600 mL, Inactive 0.154 MEQ/ML Rate: 100 2015 [facility] Injectable ml/hr, Solution Infuse over: 6 hr, Route: IV, Dosing Weight 83.455 kg, Total Volume: 600, Priority: NOW, Start date: 12/29/15 9:38:00 CDT, Stop date: 12/29/15 21:37:00 CDT Plavix 75 mg, 1 No Longer tab, Route: Active 2015 [facility] PO, Drug form: TAB, Daily, Dosing Weight 83.455, kg, Priority: NOW, Start date: 12/29/15 9:09:00 CDT, Duration: 30 day, Stop date: 01/28/16 9:00:00 CDTNotes: (Same As: Plavix) Aspirin 325 MG 325 mg, 1 Inactive Enteric Coated tab, Route: 2016 [facility] Tablet PO, Daily, Dosing Weight 83.455, kg, Priority: NOW, Start date: 12/29/15 9:09:00 CDT, Duration: 30 day, Stop date: 01/28/16 9:00:00 CDT Streptococcus 0.5 mL, Inactive pneumoniae Route: IM, 2016 [facility] serotype 1 Drug Form: capsular INJ, Daily, antigen Start date: diphtheria 12/29/15 [id number] protein 9:00:00 conjugate CDT, vaccine / Duration: 1 Streptococcus doses or pneumoniae times, Stop serotype 14 date: capsular 07/21/16 antigen 9:00:00 diphtheria CDTNotes: [id number] protein Lightly conjugate roll vial vaccine / (DO NOT Streptococcus SHAKE) pneumoniae before serotype 18C administrat capsular ion. (Same antigen d as: Prevnar 13) glimepiride 1 mg, PO, Active BID-Meals, 2015 [facility] 0 Refill(s) Saline Flush 10 ml, No Longer 0.9% Route: IVP, Active 2015 [facility] Drug Form: INJ, Dosing Weight 83.455, kg, Q12H, Start date: 12/28/15 21:00:00 CDT, Duration: 30 day, Stop date: 01/27/16 9:00:00 CDTNotes: (Same as: BD Posiflush) Zofran 4 mg, 2 mL, No Longer Route: IVP, 2015 [facility] Drug form: INJ, Q8H, Dosing Weight 84.716, kg, PRN as needed for nausea/vomi ting, Start date: 12/28/15 19:06:00 CDT, Duration: 30 day, Stop date: 01/27/16 19:05:00 CDTNotes: (Same as: Zofran) MEDICATION WASTE Product Size: 4 mg Product Wasted: ___ mg Saline Flush 10 ml, No Longer 0.9% Route: IVP, 2015 [facility] Drug Form: INJ, Dosing Weight 83.455, kg, PRN, PRN Line Flush, Start date: 12/28/15 19:06:00 CDT, Duration: 30 day, Stop date: 01/27/16 19:05:00 CDTNotes: (Same as: BD Posiflush) Nitroglycerin 0.4 mg, 1 No Longer tab, Route: Active 2015 [facility] SL, Drug form: TAB, Q5Min, Dosing Weight 83.455, kg, PRN Chest Pain, Start date: 12/28/15 19:06:00 CDT, Duration: 3 doses or times, Stop date: Limited # of timesNotes: (Same as:Nitroqui ck, Nitrostat) "Do Not Crush" Sublingual tablet Heparin 30 Route: IVP, No Longer unit/kg Bolus PRN, 2,200 Active 2015 [facility] (Heparin Dosing unit, 2.2 Weight) mL, Drug form: INJ, PRN, Heparin Protocol, Start date: 12/28/15 16:59:00 CDT Stop date: 01/27/16 16:58:00 CDT, 30 day heparin 500 mL, No Longer additive 25,000 Rate: 17.65 Active 2015 [facility] unit [12 ml/hr, unit/kg/hr] + Infuse Premix Diluent over: 28.3 Dextrose 5% 500 hr, Route: mL IV, Dosing Weight 73.55 kg, Total Volume: 500 mL, Start date: 12/28/15 16:59:00 CDT, Duration: 30 day, Stop date: 01/27/16 16:58:00 CDT Heparin 60 Route: IVP, No Longer unit/kg Bolus PRN, 4,400 Active 2015 [facility] (Heparin Dosing unit, 4.4 Weight) mL, Drug form: INJ, PRN, Heparin Protocol, Start date: 12/28/15 16:59:00 CDT Stop date: 01/27/16 16:58:00 CDT, 30 day Heparin - one 4,000 unit, Inactive time bolus for 4 mL, 2015 [facility] ACS Route: IV, Drug form: INJ, ONCE, Dosing Weight 84.716, kg, Priority: STAT, Start date: 12/28/15 16:59:00 CDT, Stop date: 12/28/15 16:59:00 CDT Aspirin 325 mg, 1 Inactive tab, Route: 2015 [facility] PO, Drug form: TAB, ONCE, Dosing Weight 84.716, kg, Priority: STAT, Start date: 12/28/15 16:29:00 CDT, Stop date: 12/28/15 16:29:00 CDTNotes: Take with food. Aspirin 81 MG 81 mg=1 Active [facility] Enteric Coated tab, PO, 2014 [facility] Tablet Daily, 0 Center Refill(s) clopidogrel 75 75 mg=1 Active [place] mg oral tablet tab, PO, 2014 [facility] [...] Rate: 50 Active 2014 [facility] mL ml/hr, [place] Infuse over: 20 hr, Route: IV, Dosing Weight 85 kg, Total Volume: 1,000, Start date: 05/20/15 19:26:00, Duration: 30 day, Stop date: 06/19/15 19:25:00 Sodium Chloride 125 mL, 125 Inactive [place] 0.154 MEQ/ML ml/hr, [address] [facility] Injectable Infuse Center Solution Over: 1 hr, [...] es: (Same as: Mag-Ox 400) Magnesium oxide [id number] elemental magnesium Dose=____mg magnesium oxide (___mg elemental [...] tablet Plavix 75 mg, 1 No Longer [place] tab, Route: Active 2014 [facility] PO, Drug Center form: TAB, Daily, Dosing Weight 85, kg, Start date: 05/20/15 9:00:00, Duration: 30 day, Stop date: 06/18/15 9:00:00Note s: (Same As: Plavix) Lactulose 667 10 gm, 15 No Longer [place] MG/ML Oral mL, Route: Active 2014 [facility] Solution PO, Drug Center Form: SYRP, Dosing Weight 85, kg, QID, PRN as needed for constipatio n, Start date: 05/19/15 23:08:00, Duration: 30 day, Stop date: 06/18/15 23:07:00Not es: (Same as:[place] c) normal saline 1,000 mL, No Longer [place] 0.9% IV 1,000 Rate: 75 Active 2014 [facility] mL ml/hr, Center Infuse over: 13.3 hr, Route: IV, Dosing Weight 85 kg, Total Volume: 1,000, Start date: 05/19/15 23:08:00, Duration: 30 day, Stop date: 06/18/15 23:07:00 Plavix 300 mg, 1 Inactive [place] tab, Route: 2014 [facility] PO, Drug Center form: TAB, ONCE, Dosing Weight 85, kg, Priority: Within 4 hours, Start date: 05/19/15 12:39:00, Duration: 1 doses or times, Stop date: 05/19/15 12:39:00Not es: ( Same as: Plavix) Miralax 17 gm, 1 No Longer [place] pkt, Route: Active 2014 [facility] PO, Drug Center form: PWDR, Daily, Dosing Weight 85, kg, Priority: NOW, Start date: 05/18/15 16:37:00, Duration: 30 day, Stop date: 06/17/15 9:00:00Note s: Dissolve in 8 oz of water or juice. (Same as: Miralax) sennosides, GROUP HOME 8.6 mg, 1 No Longer [place] tab, Route: Active 2014 Medical PO, Drug Center Form: TAB, Dosing Weight 85, kg, Daily, NOW, Start date: 05/18/15 16:37:00, Duration: 30 day, Stop date: 06/17/15 9:00:00Note s: (Same as: Senokot) Docusate 100 mg, Inactive [facility] Route: PO2014 Medical Drug form: [place] CAP, Daily, Dosing Weight 85, kg, Priority: NOW, Start date: 05/18/15 16:37:00, Duration: 30 day, Stop date: 06/17/15 9:00:00 Lipitor 40 mg, 2 No Longer [facility] tab, Route: Active 2014 Medical PO, Drug Center form: TAB, Bedtime, Start date: 05/17/15 21:00:00, Duration: 30 day, Stop date: 06/15/15 21:00:00Not es: (Same As: Lipitor) Crestor 20 mg, Inactive [facility] Route: PO, 2014 Medical Drug form: Center TAB, Bedtime, Dosing Weight 85, kg, Start date: 05/17/15 21:00:00, Duration: 30 day, Stop date: 06/15/15 21:00:00 Prilosec 20 mg, Inactive [facility] Route: PO2014 Medical Drug form: [place] DRC, Bedtime, Dosing Weight 85, kg, Start date: 05/17/15 21:00:00, Duration: 30 day, Stop date: 06/15/15 21:00:00 Docusate Sodium 100 mg, 1 No Longer [facility] 100 MG Oral cap, Route: Active 2014 Medical Capsule PO, Drug Center [Colace] form: CAP, BID, Dosing Weight 85, kg, Start date: 05/17/15 17:00:00, Duration: 30 day, Stop date: 06/16/15 9:00:00Note s: (Same as: Colace) (Do Not Crush) Protonix 40 mg, 1 No Longer [facility] tab, Route: Active 2014 Medical PO, Drug Center form: ECTAB, Before Dinner, Start date: 05/17/15 16:30:00, Duration: 30 day, Stop date: 06/15/15 16:30:00Not es: Tablet should not be chewed or crushed. (Same as: Protonix) Aspirin 81 mg, 1 No Longer tab, Route: Active 2014 Medical PO, Drug Center form: ECTAB, Daily, Dosing Weight 85, kg, Start date: 05/17/15 9:00:00, Duration: 30 day, Stop date: 06/15/15 9:00:00Note s: Do not crush or chew. (Same As: Ecotrin) Furosemide 40 40 mg, 1 No Longer [place] MG Oral Tablet tab, Route: Active 2014 Medical PO, Drug Center form: TAB, Daily, Dosing Weight 85, kg, Start date: 05/17/15 9:00:00, Duration: 30 day, Stop date: 06/15/15 9:00:00Note s: (Same as: Lasix) May cause GI upset. Give with food or milk. Aldactone 25 mg, 1 No Longer [place] tab, Route: Active 2014 Medical PO, Drug Center form: TAB, BID, Dosing Weight 85, kg, Start date: 05/17/15 9:00:00, Duration: 30 day, Stop date: 06/15/15 17:00:00Not es: (Same As: Aldactone) Ranexa 1,000 mg, 2 No Longer [place] tab, Route: Active 2014 Medical PO, Drug Center form: TAB, BID, Dosing Weight 85, kg, Start date: 05/17/15 9:00:00, Duration: 30 day, Stop date: 06/15/15 17:00:00Not es: Same as Ranexa "Do Not Crush" Losartan 50 mg, 1 No Longer [place] tab, Route: Active 2014 Medical PO, Drug Center form: TAB, Daily, Dosing Weight 85, kg, Start date: 05/17/15 9:00:00, Duration: 30 day, Stop date: 06/15/15 9:00:00Note s: (Same as: Cozaar) Coreg 6.25 mg, 1 No Longer [place] tab, Route: Active 2014 Medical PO, Drug Center form: TAB, BID, Dosing Weight 85, kg, Start date: 05/17/15 9:00:00, Duration: 30 day, Stop date: 06/15/15 17:00:00Not es: Give with food. (Same As: Coreg) tamsulosin 0.4 mg, 1 No Longer [place] cap, Route: Active 2014 Medical PO, Drug Center form: CAP, After Breakfast, Dosing Weight 85, kg, Start date: 05/17/15 8:30:00, Duration: 30 day, Stop date: 06/15/15 8:30:00Note s: (Same As: Flomax) "Do Not Crush" Synthroid 200 No Longer [place] microgram, Active 2014 Medical 1 tab, Center Route: PO, Drug form: TAB, Q630AM, Dosing Weight 85, kg, Start date: 05/17/15 6:30:00, Duration: 30 day, Stop date: 06/15/15 6:30:00Note s: Take 1 hour before or 2 hours after meal; Enteral feeds may interefere with the absorption of this medication. (Same as: Levothroid) heparin sodium, Route: IVP, No Longer [place] porcine 1000 PRN, 4,400 Active 2014 Medical UNT/ML unit, 4.4 Center Injectable mL, Drug Solution form: INJ, PRN, Heparin Protocol, Start date: 05/17/15 1:38:00 Stop date: 06/16/15 1:37:00, 30 day heparin 500 mL, No Longer [place] additive 25,000 Rate: 17.68 Active 2014 Medical unit [12 ml/hr, Center unit/kg/hr] + Infuse Premix Diluent over: 28.3 Dextrose 5% 500 hr, Route: mL IVPB, Dosing Weight 73.66 kg, Total Volume: 500 mL, Start date: 05/17/15 1:38:00, Duration: 30 day, Stop date: 06/16/15 1:37:00 Plavix 75 mg, 1 Inactive tab, Route: 2015 [place] PO, Drug form: TAB, Daily, Dosing Weight 83.2, kg, Start date: 05/16/15 9:00:00, Duration: 30 day, Stop date: 06/14/15 9:00:00Note s: (Same As: Plavix) Plavix 600 mg, 2 Inactive tab, Route: 2014 [facility] PO, Drug form: TAB, ONCE, Dosing Weight 83.2, kg, Priority: NOW, Start date: 05/15/15 10:37:00, Duration: 1 doses or times, Stop date: 05/15/15 10:37:00Not es: ( Same as: Plavix) Insulin, 10 unit, No Longer Aspart, Human 0.1 mL, Active 2014 [facility] Route: SUB-Q, Drug form: SOLN, TID-Before Meals, [...] No Longer Syringe mL, Route: Active 2014 [facility] IVP, Drug Form: INJ, Dosing Weight 83.2, kg, PRN, PRN Blood Glucose Results, Start date: 05/14/15 11:54:00, Duration: 30 day, Stop date: 06/13/15 11:53:00 Glucagon 1 mg, No Longer Route: IM, Active 2014 [facility] Drug form: PDR/INJ, PRN, Dosing Weight 83.2, kg, PRN Blood Glucose Results, Start date: 05/14/15 11:54:00, Duration: 30 day, Stop date: 06/13/15 11:53:00 Magnesium 2 gm, 50 Inactive Sulfate mL, Route: 2014 [facility] IVPB, Drug form: INJ, ONCE, Dosing Weight 83.2, kg, Start date: 05/14/15 8:24:00, Duration: 2 hr, Stop date: 05/14/15 8:24:00 Coreg 3.125 mg, Inactive Route: PO, 2014 [facility] Drug form: TAB, Q12H, Dosing Weight 83.2, kg, hold sbp Crestor 20 mg, Inactive Route: PO, 2014 [facility] Drug form: TAB, Bedtime, Dosing Weight 83.2, kg, Start date: 05/13/15 21:00:00, Duration: 30 day, Stop date: 06/11/15 21:00:00 Lipitor 40 mg, 1 No Longer tab, Route: Active 2014 [facility] PO, Drug form: TAB, Bedtime, Start date: 05/13/15 21:00:00, Duration: 30 day, Stop date: 06/11/15 21:00:00Not es: (Same as: Lipitor) heparin sodium, 4,000 unit, Inactive porcine 5000 4 mL, 2014 [facility] UNT/ML Route: IV, Injectable Drug form: Solution INJ, ONCE, Dosing Weight 83.2, kg, Start date: 05/13/15 14:00:00, Stop date: 05/13/15 14:00:00 Lasix 20 mg, 2 Inactive mL, Route: 2014 [facility] IV, Drug form: INJ, ONCE, Dosing Weight 83.2, kg, Start date: 05/13/15 12:00:00, Stop date: 05/13/15 12:00:00Not es: (Same as: Lasix) Morphine 2 mg, 1 mL, No Longer Route: IVP, Active 2014 [facility] Drug form: INJ, Q4H, Dosing Weight 83.2, kg, PRN Pain Score 7-10, Start date: 05/13/15 10:19:00, Duration: 30 day, Stop date: 06/12/15 10:18:00Not es: (Same as:MORPhine Sulfate) Sodium Chloride 250 mL, 250 Inactive 0.154 MEQ/ML ml/hr, 2014 [facility] Injectable Infuse Solution Over: 1 hr, Route: IV, 250, Drug form: INJ, ONCE, Dosing Weight 83.2 kg, Start date: 05/13/15 9:58:00, Duration: 1 doses or times, Stop date: 05/13/15 9:58:00 Flomax 0.4 mg, 1 No Longer cap, Route: Active 2014 [facility] PO, Drug form: CAP, Daily, Dosing Weight 84.659, kg, Start date: 05/13/15 9:00:00, Duration: 30 day, Stop date: 06/11/15 9:00:00Note s: (Same As: Flomax) "Do Not Crush" aspirin 325 mg 325 mg, 1 No Longer [place] tab, Route: Active 2014 [facility] PO, Drug form: TAB, Daily, Start date: 05/13/15 9:00:00, Duration: 30 day, Stop date: 06/11/15 9:00:00Note s: Take with food. Thyroxine 112 No Longer microgram, Active 2014 1 tab, Route: PO, Drug form: TAB, Q630AM, Dosing Weight 84.659, kg, Start date: 05/13/15 6:30:00, Duration: 30 day, Stop date: 06/11/15 6:30:00Note s: Take 1 hour before or 2 hours after meal; Enteral feeds may interefere with the absorption of this medication. (Same as:Levothro id) Ranexa 1,000 mg, 2 No Longer tab, Route: Active 2014 [facility] PO, Drug form: TAB, BID, Dosing Weight 84.659, kg, Start date: 05/12/15 22:00:00, Duration: 30 day, Stop date: 06/11/15 21:00:00Not es: Same as Ranexa "Do Not Crush" Coreg 6.25 mg, 2 No Longer tab, Route: Active 2014 [facility] PO, Drug form: TAB, BID, Dosing Weight 84.659, kg, Start date: 05/12/15 21:00:00, Duration: 30 day, Stop date: 06/11/15 9:00:00Note s: Give with food. (Same As: Coreg) Lipitor 20 mg, 2 No Longer tab, Route: Active 2014 [facility] PO, Drug form: TAB, Bedtime, Start date: 05/12/15 21:00:00, Duration: 30 day, Stop date: 06/10/15 21:00:00Not es: (Same As: Lipitor) Crestor 10 mg, Inactive Route: PO, 2014 Bedtime, Dosing Weight 84.659, kg, Start date: 05/12/15 21:00:00, Duration: 30 day, Stop date: 06/10/15 21:00:00 Insulin, 6 unit, No Longer Aspart, Human 0.06 mL, Active 2014 [facility] Route: SUB-Q, Drug form: SOLN, Sliding Scale, [...] mg, No Longer Route: IM, Active 2014 [facility] Drug form: PDR/INJ, PRN, Dosing Weight 83.2, kg, PRN Blood Glucose Results, Start date: 05/12/15 20:52:00, Duration: 30 day, Stop date: 06/11/15 20:51:00 Dextrose 50% 25 gm, 50 No Longer Syringe mL, Route: Active 2014 [facility] IVP, Drug Form: INJ, Dosing Weight 83.2, kg, PRN, PRN Blood Glucose Results, Start date: 05/12/15 20:52:00, Duration: 30 day, Stop date: 06/11/15 20:51:00 Trazodone 50 mg, 1 No Longer tab, Route: Active 2014 [facility] PO, Drug form: TAB, Bedtime, Dosing Weight 83.2, kg, PRN Sleep, Start date: 05/12/15 20:43:00, Duration: 30 day, Stop date: 06/11/15 20:42:00, ..Notes: (Same As: Desyrel) Nitroglycerin 0.4 mg, 1 No Longer tab, Route: Active 2014 [facility] SL, Drug form: TAB, Q5Min, Dosing Weight 83.2, kg, PRN Chest Pain, Start date: 05/12/15 20:37:00, Duration: 3 doses or times, Stop date: Limited # of timesNotes: (Same as:Nitroqui ck, Nitrostat) "Do Not Crush" Sublingual tablet Nitroglycerin 0.4 mg, On Hold Transdermal 2014 , PRN, 0 Refill(s) Rosuvastatin 20 mg=1 [...] mg, Inactive Oral Tablet Route: PO, 2014 [facility] Drug form: TAB, Daily, Dosing Weight 84.659, kg, Priority: STAT, Start date: 05/12/15 17:33:00, Duration: 30 day, Stop date: 06/11/15 9:00:00 heparin sodium, Route: IVP, No Longer [place] 1000 PRN, 4,300 Active 2014 [facility] UNT/ML unit, 4.3 Injectable mL, Drug Solution form: INJ, PRN, Heparin Protocol, Start date: 05/12/15 16:57:00 Stop date: 06/11/15 16:56:00, 30 day heparin 500 mL, No Longer additive 25,000 Rate: 17.31 Active 2014 [place] unit [12 ml/hr, unit/kg/hr] + Infuse Premix Diluent over: 28.9 Dextrose 5% 500 hr, Route: mL IV, Dosing Weight 72.14 kg, Total Volume: 500 mL, Start date: 05/12/15 16:57:00, Duration: 30 day, Stop date: 06/11/15 16:56:00 heparin sodium, 4,000 unit, Inactive [place] 5000 4 mL, 2014 [place] UNT/ML Route: IV, Injectable Drug form: Solution INJ, ONCE, Dosing Weight 81.364, kg, Priority: STAT, Start date: 05/12/15 16:57:00, Stop date: 05/12/15 16:57:00 Aspirin 81 MG 324 mg, Inactive Chewable Tablet Route: PO, 2014 [facility] Drug form: CHEWTAB, ONCE, Dosing Weight 81.364, kg, Priority: STAT, Start date: 05/12/15 16:22:00, Stop date: 05/12/15 16:22:00 Aspirin 325 mg, Inactive Route: 2014 [facility] CHEW, Drug form: CHEWTAB, ONCE, Dosing Weight 81.364, kg, Priority: STAT, Start date: 05/12/15 16:20:00, Stop date: 05/12/15 16:20:00 Aspirin 324 mg, 4 Inactive tab, Route: 2014 [facility] PO, Drug form: CHEWTAB, ONCE, Dosing Weight 81.364, kg, Priority: STAT, Start date: 05/12/15 14:36:00, Stop date: 05/12/15 14:36:00Not es: Take with food. Saline Flush 10 mL, No Longer 0.9% Route: IVP, Active 2014 [facility] Drug Form: INJ, Dosing Weight 81.364, kg, [...] mg, 2 PO No Longer [facility] tab, Route: Active 2011 [facility] PO, Drug form: TAB, Q12H, Start date: 06/28/11 21:00:00, Duration: 30 day, Stop date: 07/28/11 9:00:00 Lipitor 10 mg, 1 PO No Longer [place] tab, Route: Active 2011 [facility] PO, Drug form: TAB, Bedtime, Start date: 06/28/11 21:00:00, Duration: 30 day, Stop date: 07/27/11 21:00:00 lisinopril 10 mg, 1 PO No Longer [place] tab, Route: Active 2011 [facility] PO, Drug form: TAB, Daily, Start date: 06/28/11 17:00:00, Duration: 30 day, Stop date: 07/28/11 9:00:00 glimepiride 2 mg, 1 PO No Longer [place] tab, Route: Active 2011 [facility] PO, Drug form: TAB, BID, Start date: 06/28/11 17:00:00, Duration: 30 day, Stop date: 07/28/11 9:00:00 Lasix 20 mg, 1 PO No Longer [facility] tab, Route: Active 2011 [facility] PO, Drug form: TAB, BID, Start date: 06/28/11 17:00:00, Duration: 30 day, Stop date: 07/28/11 9:00:00 spironolactone 25 mg, 1 PO No Longer [facility] tab, Route: Active 2011 [facility] PO, Drug form: TAB, Daily, Start date: 06/28/11 17:00:00, Duration: 30 day, Stop date: 07/28/11 9:00:00 Flomax 0.4 mg, 1 PO No Longer [facility] cap, Route: Active 2011 [facility] PO, Drug form: CAP, Daily, Start date: 06/28/11 17:00:00, Duration: 30 day, Stop date: 07/28/11 9:00:00 aspirin 81 mg 81 mg, 1 PO No Longer [facility] tablet, enteric tab, Route: Active 2011 [facility] coated PO, Drug form: ECTAB, Daily, Start date: 06/28/11 17:00:00, Duration: 30 day, Stop date: 07/28/11 9:00:00 acetaminophen-t 1 tab, PO No Longer [facility] ramadol 325 Route: PO, Active 2011 [facility] mg-37.5 mg oral Drug Form: tablet TAB, Daily, Start date: 06/28/11 17:00:00, Duration: 30 day, Stop date: 07/28/11 9:00:00 cefazolin 2 gm, IVPB No Longer [facility] Route: Active 2011 [facility] IVPB, Q8H, Start date: 06/28/11 16:00:00, Duration: 2 doses or times, Stop date: 06/29/11 0:00:00 Sodium Chloride 10 mL, IVP No Longer [facility] 0.9% IV Route: IVP, Active 2011 [facility] Start date: 06/28/11 16:00:00, Duration: 30 day, Stop date: 07/28/11 8:00:00 Coreg 25 mg, 1 PO No Longer [facility] tab, Route: Active 2011 [facility] PO, Drug form: TAB, Q12H, Start date: 06/28/11 15:00:00, Duration: 30 day, Stop date: 07/28/11 9:00:00 nitroglycerin 0.4 mg, 1 SL No Longer [facility] 0.4 mg tab, Route: Active 2011 [facility] sublingual SL, Drug tablet form: TAB, PRN, PRN Chest Pain, Start date: 06/28/11 13:33:00, Duration: 30 day, Stop date: 07/28/11 13:32:00 acetaminophen 500 mg, 1 PO No Longer [facility] tab, Route: Active 2011 [facility] PO, Drug form: TAB, Q4H, PRN Pain, Start date: 06/28/11 11:28:00, Duration: 30 day, Stop date: 07/28/11 11:27:00 acetaminophen-h 2 tab, PO No Longer [facility] ydrocodone 325 Route: PO, Active 2011 [facility] mg-5 mg oral Drug Form: tablet TAB, Q4H, PRN Pain, Start date: 06/28/11 11:28:00, Duration: 30 day, Stop date: 07/28/11 11:27:00 morphine 2 mg, 1 mL, IV No Longer [facility] Sulfate Route: IV, Active 2011 [facility] Drug form: INJ, Q2H, PRN Severe Pain, Start date: 06/28/11 11:28:00, Duration: 30 day, Stop date: 07/28/11 11:27:00 Xanax 0.25 mg, 1 PO No Longer [facility] tab, Route: Active 2011 [facility] PO, Drug form: TAB, Q8H, PRN Anxiety, Start date: 06/28/11 11:28:00, Duration: 30 day, Stop date: 07/28/11 11:27:00 Zofran 4 mg, 2 mL, IVP No Longer [facility] Route: IVP, Active 2011 [facility] Drug form: INJ, Q8H, PRN Nausea & Vomiting, Start date: 06/28/11 11:28:00, Duration: 30 day, Stop date: 07/28/11 11:27:00 Restoril 15 mg, 1 PO No Longer [facility] cap, Route: Active 2011 [facility] PO, Drug form: CAP, Bedtime, PRN Insomnia, Start date: 06/28/11 11:28:00, Duration: 30 day, Stop date: 07/28/11 11:27:00 Sodium Chloride 10 mL, IVP No Longer [facility] 0.9% IV Route: IVP, Active 2011 [facility] PRN, Line Flush, Start date: 06/28/11 11:26:00, Duration: 30 day, Stop date: 07/28/11 11:25:00 multivitamin 1 tab, PO No Longer [facility] Route: PO, Active 2011 [facility] Drug Form: TAB, [id number], Start date: 06/28/11 6:00:00, Duration: 4 doses or times, Stop date: 06/29/11 18:00:00 cefazolin 1 gm, IVPB No Longer [facility] Route: Active 2011 [facility] IVPB, PRE OP, Start date: 06/28/11 5:00:00, Duration: 12 hr, Stop date: 06/28/11 16:59:00 Sodium Chloride 1,000 mL, IV No Longer [facility] 0.45% IV 1,000 Rate: 75 Active 2011 [facility] mL ml/hr, Infuse over: 13.3 hr, Route: IV, Total Volume: 1,000, Start date: 06/28/11 5:00:00, Duration: 24 hr, Stop date: 06/29/11 4:59:00 lidocaine-prilo 1 appl, TOP No Longer [facility] freddie topical Route: TOP, Active 2011 [facility] ONCALL, Drug form: CRM, Start date: 06/28/11 5:00:00, Duration: 1 doses or times Valium 5 mg, 1 PO No Longer [facility] tab, Route: Active 2011 [facility] PO, Drug form: TAB, ONCALL, Start date: 06/28/11 5:00:00, Duration: 1 doses or times Benadryl 50 mg, 2 PO No Longer [facility] tab, Route: Active 2011 [facility] PO, Drug form: TAB, ONCALL, Start date: [...] 1 mg orally bid [facility] atorvastatin 1 tab(s) orally Active 10 mg orally [facility] once a day (at ular [facility] bedtime) tamsulosin 1 cap(s) orally Active 0.4 [...] [facility] 2 [facility] nitroglycerin 1 tab(s) sublingua Active 0.4 mg [facility] lly sublingually [facility] every 5 minutes losartan 1 tab(s) orally Active 50 mg orally [facility] once a day [facility] Ranexa 1 tab(s) orally Active 1000 mg orally [facility] 2 [facility] a [facility] Humalog 13 units subcutane Active 100 units/mL [facility] before ously subcutaneously [facility] meals levothyroxine 2 caps orally Active 112 [...] [facility] times a day [facility] nitroglycerin 1 [...] orally Active 25 mg orally [facility] once a day [facility] Prilosec 1 cap(s) orally Active 20 mg orally [facility] once a day [facility] glimepiride 1 tab(s) orally Active 1 mg orally bid [facility] clopidogrel 1 tab(s) orally Active [...] orally Active 40 mg orally [facility] bid [facility] ivabradine 1 tab(s) orally Active 5 mg orally 2 [facility] times a day [facility] (with meals) Toprol XL 1/2ab(s) orally Active 12.5 mg orally [facility] once a day [facility] isosorbide 1 tab(s) orally Active 10 mg orally 2 [facility] dinitrate times a day [facility] apixaban 1 tab(s) orally Active 2.5 mg orally 2 [facility] times a day [facility] Lipitor 1 tab(s) orally Active 10 mg orally [facility] once a day [facility] Allergies, Adverse Reactions, Alerts Substance Category Reaction Severity Reaction Status Date Comments Source type Reported N.K.D.A. Adverse Info Not Adverse Active [facility] Reaction Available Reaction [facility] Immunizations Immunization Date Site Status Last Comments Source Given Updated [facility] 8 deltoid [place] acel/tetanus adult pneumococcal Right completed [place] 13-valent 6 deltoid [facility] vaccine [place] Results Order Name Results Value Reference Date Interpretation Comments Source Range URINE AND UA <=1.0 0.1 - 1.0 08/06 The STOOL Urobilinogen mg/dL [place] URINE AND UA RBC 1 /HPF 0 - 2 08/06 The [place] URINE AND UA Mucus Few /LPF None Seen 08/06 The STOOL /LPF [place] URINE AND UA Color Yellow Yellow 08/06 The STOOL [place] *NA* (08/06/17 2:20 AM) URINE AND UA Turbidity Clear Clear 08/06 The STOOL [place] (08/06/17 2:20 AM) URINE AND UA Spec Grav 1.006 <=1.030 08/06 The STOOL [place] URINE AND UA Sq Epi Occasional Few /LPF 08/06 The STOOL /LPF [place] URINE AND UA WBC 1 /HPF 0 - 5 08/06 The STOOL [place] URINE AND UA Nitrite Negative Negative 08/06 The STOOL [place] (08/06/17 2:20 AM) URINE AND UA Leuk Est Negative Negative 08/06 The STOOL /2017 [place] (08/06/17 2:20 AM) URINE AND UA pH 5.0 5.0 - 8.0 08/06 The STOOL /2017 [place] URINE AND UA Ketones Negative Negative 08/06 The ST[facility]OL mg/dL mg/dL /2017 [place] URINE AND UA Bili Negative Negative 08/06 The STOOL [place] *NA* (08/06/17 2:20 AM) URINE AND UA Protein Negative Negative 08/06 The STOOL mg/dL mg/dL /2017 [place] URINE AND UA Glucose Negative Negative 08/06 The STOOL mg/dL mg/dL /2017 [place] URINE AND UA Blood Negative Negative 08/06 The STOOL [place] (08/06/17 2:20 AM) CHEM PANEL A/G Ratio 1.1 0.7 - 1.6 08/06 The [place] CHEM PANEL AGAP 13.0 meq/L 10.0 - 08/06 The 20.0 [place] CHEM PANEL Globulin 3.2 g/dL 2.7 - 4.2 08/06 The [place] CHEM PANEL B/C Ratio 21 6 - 25 08/06 The [place] CHEM PANEL CO2 25 meq/L 24 - 32 08/06 The [place] CHEM PANEL Chloride Lvl 102 meq/L 95 - 109 08/06 The [place] CHEM PANEL Potassium 4.0 meq/L 3.5 - 5.1 08/06 The Lvl [place] CHEM PANEL Sodium Lvl 136 meq/L 135 - 145 08/06 The [place] CHEM PANEL BUN 38 mg/dL 7 - 22 08/06 The [place] CHEM PANEL Glucose Lvl 246 mg/dL 70 - 99 08/06 The [place] CHEM PANEL Creatinine 1.81 mg/dL 0.50 - 08/06 The Lvl 1.40 [place] CHEM PANEL Alk Phos 134 unit/L 39 - 136 08/06 The [place] CHEM PANEL Bili Total 0.8 mg/dL 0.2 - 1.3 08/06 The [place] CHEM PANEL ALT 29 unit/L 0 - 65 08/06 The [place] CHEM PANEL Albumin Lvl 3.5 g/dL 3.5 - 5.0 08/06 The [place] CHEM PANEL AST 28 unit/L 0 - 37 08/06 The [place] CHEM PANEL Total 6.7 g/dL 6.4 - 8.4 08/06 The [place] CHEM PANEL Calcium Lvl 8.5 mg/dL 8.5 - 10.5 08/06 The [place] CHEM PANEL eGFR 34 08/06 Result Comment: [...] not recommended in the following populations: [address] Individuals with unstable creatinine concentrations, including [...] MCH 23.8 pg 27.0 - 08/06 The [place] HEMATOLOGY RDW 18.4 % 11.5 - 08/06 The [place] HEMATOLOGY MPV 9.3 fL 7.4 - 10.4 08/06 [place] HEMATOLOGY Platelet 135 K/CMM 133 - 450 08/06 [place] HEMATOLOGY MCHC 31.9 g/dL 32.0 - 08/06 The 36.0 [place] HEMATOLOGY Hct 30.4 % 42.0 - 08/06 The 54.0 [place] HEMATOLOGY MCV 74.5 fL 80.0 - 08/06 The 94.0 [place] HEMATOLOGY RBC 4.08 M/CMM 4.70 - 08/06 The 6.10 [place] HEMATOLOGY Hgb 9.7 g/dL 14.0 - 08/06 The 18.0 [place] HEMATOLOGY WBC 4.8 K/CMM 3.7 - 10.4 08/06 [place] HEMATOLOGY PTT 30.0 s 22.9 - 08/06 The 35.8 [place] HEMATOLOGY PT 14.6 s 12.0 - 08/06 MH The 14.7 [place] HEMATOLOGY INR 1.14 0.85 - 08/06 MH The 1.17 [place] HEMATOLOGY Monocytes # 0.4 K/CMM 0.0 - 0.8 08/06 The [place] HEMATOLOGY Eosinophils 0.2 K/CMM 0.0 - 0.5 08/06 The # [place] HEMATOLOGY Microcyte 1+ None Seen 08/06 The [place] *ABN* (08/06/17 1:09 AM) HEMATOLOGY Basophils 0.5 % 0.0 - 1.0 08/06 The [place] HEMATOLOGY Segs-Bands # 3.4 K/CMM 1.5 - 8.1 08/06 The [place] HEMATOLOGY Lymphocytes 0.8 K/CMM 1.0 - 5.5 08/06 The # [place] HEMATOLOGY Lymphocytes 15.8 % 20.0 - 08/06 The 40.0 [place] HEMATOLOGY Monocytes 8.5 % 2.0 - 12.0 08/06 The [place] HEMATOLOGY Segs 70.6 % 45.0 - 08/06 The 75.0 [place] HEMATOLOGY Eosinophils 4.6 % 0.0 - 4.0 08/06 [place] Brain wo Brain wo CT HEAD WITHOUT CONTRAST 08/06 - The contrast contrast - [place] CT Clinical Indication: - head trauma, plavix. [...] 1358 pg/mL <=100 05/30 ENZYMES pg/mL /2016 [facility] CARDIAC Troponin-I 0.02 ng/mL 0.00 - 05/30 ENZYMES 0.40 [facility] ELECTROLYT AGAP 10.8 meq/L 10.0 - 05/30 ES 20.0 [facility] ELECTROLYT A/G Ratio 1.4 0.7 - 1.6 05/30 [facility] ELECTROLYT B/C Ratio 15 6 - 25 05/30 [facility] ELECTROLYT Globulin 2.7 g/dL 2.7 - 4.2 05/30 [facility] ELECTROLYT eGFR 29 05/30 Result Comment: The eGFR is calculated using the CKD-EPI formula. In most young, healthy individuals the eGFR will be >90 mL/ min/1.73m2. The eGFR declines with age. An eGFR of 60-89 may be normal in mL/min/1.7 /2017 some populations, particularly the elderly, for whom the CKD-EPI formula has not been extensively validated. Use of the eGFR is not recommended in the following populations: [facility] 3m2 Individuals with unstable creatinine concentrations, including [...] Total 0.8 mg/dL 0.2 - 1.3 05/30 [facility] ELECTROLYT Sodium Lvl 140 meq/L 135 - 145 05/30 [facility] ELECTROLYT Creatinine 2.05 mg/dL 0.50 - 05/30 ES Lvl 1.40 [facility] ELECTROLYT Total 6.4 g/dL 6.4 - 8.4 05/30 [facility] ELECTROLYT Potassium 3.8 meq/L 3.5 - [...] BUN 31 mg/dL 7 - 22 05/30 [facility] HEMATOLOGY PT 14.7 s 12.0 - 05/30 MH 14.7 [facility] HEMATOLOGY INR 1.15 0.85 - 05/30 1.17 [facility] HEMATOLOGY RDW 16.9 % 11.5 - 05/30 14. [facility] HEMATOLOGY WBC 3.6 K/CMM 3.7 - 10.4 05/30 [facility] HEMATOLOGY RBC 3.64 M/CMM 4.70 - 05/30 6.10 [facility] HEMATOLOGY MCH 26.1 pg 27.0 - 05/30 MH 31.0 [facility] HEMATOLOGY MCV 81.6 fL 80.0 - 05/30 94.0 [facility] HEMATOLOGY Hct 29.7 % 42.0 - 05/30 54.0 [facility] HEMATOLOGY MCHC 31.9 g/dL 32.0 - 05/30 36.0 [facility] HEMATOLOGY Hgb 9.5 g/dL 14.0 - 05/30 18.0 [facility] HEMATOLOGY Platelet 98 K/CMM 133 - 450 05/30 [facility] HEMATOLOGY MPV 9.3 fL 7.4 - 10.4 05/30 [facility] HEMATOLOGY Eosinophils 0.1 K/CMM 0.0 - 0.5 05/30 MH # /2017 [facility] HEMATOLOGY Eosinophils 1.8 % 0.0 - 4.0 05/30 /2016 [facility] HEMATOLOGY Monocytes 9.8 % 2.0 - 12.0 05/30 [facility] HEMATOLOGY Monocytes # 0.4 K/CMM 0.0 - 0.8 05/30 [facility] HEMATOLOGY Segs-Bands # 2.3 K/CMM 1.5 - 8.1 05/30 [facility] HEMATOLOGY Basophils 0.4 % 0.0 - 1.0 05/30 [facility] HEMATOLOGY Lymphocytes 24.4 % 20.0 - 05/30 MH 40.0 /2016 [facility] HEMATOLOGY Lymphocytes 0.9 K/CMM 1.0 - 5.5 05/30 MH # /2017 [facility] HEMATOLOGY Segs 63.6 % 45.0 - 05/30 MH 75.0 /2016 [facility] Chest Chest 1view Clinical Indication: - chf; 05/30 - 1view DX DX - [facility] Comparison: December 28, 2015 Read by: Juwan [...] placement. 2. No focal infiltrates . SL: [id number] CHEM PANEL eGFR 41 11/03 Result Comment: [...] is not recommended in the following populations: [facility] 3m2 Individuals with unstable creatinine concentrations, including [...] Lvl 8.5 mg/dL 8.5 - 10.5 11/03 [facility] CHEM PANEL AGAP 10.9 meq/L 10.0 - 11/03 MH 20.0 [facility] CHEM PANEL Chloride Lvl 105 meq/L 95 - 109 11/03 [facility] CHEM PANEL CO2 27 meq/L 24 - 32 11/03 [facility] CHEM PANEL Sodium Lvl 139 meq/L 135 - 145 11/03 [facility] CHEM PANEL Potassium 3.9 meq/L 3.5 - 5.1 11/03 MH Lvl [facility] CHEM PANEL BUN 20 mg/dL 7 - 11/03 [facility] CHEM PANEL Glucose Lvl 165 mg/dL 70 - 99 11/03 [facility] CHEM PANEL Creatinine 1.54 mg/dL 0.50 - 11/03 Lvl 1.40 [facility] CARDIAC BNP 720 pg/mL <=100 11/03 [facility] pg/mL /2016 [facility] CHEM PANEL Phosphorus 4.1 mg/dL 2.5 - 4.5 11/03 [facility] CHEM PANEL Magnesium 1.9 mg/dL 1.8 - 2.4 11/03 Lvl [facility] LIPIDS VLDL 26 11/03 [facility] LIPIDS Trig 129 mg/dL <=149 11/03 mg/dL [facility] LIPIDS HDL 32 mg/dL >=61 mg/dL 11/03 [facility] LIPIDS Chol 97 mg/dL <=199 11/03 mg/dL [facility] LIPIDS LDL 39 mg/dL <=99 mg/dL 11/03 (Calculated) [facility] LIPIDS CHD Risk 3.03 4.00 - 11/03 7.30 [facility] CARDIAC Troponin-I 0.04 ng/mL 0.00 - 11/03 [facility] 0.40 [facility] CARDIAC Total CK 68 unit/L 12 - 191 11/03 [facility] /2016 [facility] CARDIAC Total CK 65 unit/L 12 - 191 11/03 [facility] /2017 [facility] CARDIAC Troponin-I 0.04 ng/mL 0.00 - 11/03 [facility] 0.40 [facility] CARDIAC BNP 626 pg/mL <=100 11/02 [facility] pg/mL /2016 [facility] CARDIAC Troponin-I 0.04 ng/mL 0.00 - 11/02 [facility] 0.40 [facility] CARDIAC Total CK 64 unit/L 12 - 191 11/02 [facility] /2016 [facility] CARDIAC Total CK 64 unit/L - 191 11/02 [facility]ES [facility] CARDIAC Troponin-I 0.05 ng/mL 0.00 - 11/02 [facility] 0.40 [facility] CHEM PANEL Magnesium 1.9 mg/dL 1.8 - 2.4 11/02 Lvl /2016 [facility] CHEM PANEL B/C Ratio 13 6 - 25 11/02 [facility] CHEM PANEL AGAP 13.6 meq/L 10.0 - 11/02 20.0 [facility] CHEM PANEL Globulin 2.9 g/dL 2.7 - 4.2 11/02 [facility] CHEM PANEL A/G Ratio 1.2 0.7 - 1.6 11/02 [facility] CHEM PANEL eGFR 39 11/02 Result Comment: [...] is not recommended in the following populations: [facility] 3m2 Individuals with unstable creatinine concentrations, including [...] Lvl 3.4 g/dL 3.5 - 5.0 11/02 [facility] CHEM PANEL Total 6.3 g/dL 6.4 - 8.4 11/02 Protein [facility] CHEM PANEL Calcium Lvl 8.5 mg/dL 8.5 - 10.5 11/02 [facility] CHEM PANEL CO2 24 meq/L 24 - 32 11/02 [facility] CHEM PANEL Chloride Lvl 104 meq/L 95 [...] PANEL Creatinine 1.60 mg/dL 0.50 - 11/02 MH Lvl 1.40 /2016 [facility] CHEM PANEL Potassium 3.6 meq/L 3.5 - 5.1 11/02 MH Lvl /2016 [facility] CHEM PANEL BUN 21 mg/dL 7 - 22 11/02 [facility] CHEM PANEL Glucose Lvl 320 mg/dL 70 - 99 11/02 [facility] HEMATOLOGY Lymphocytes 0.9 K/CMM 1.0 - 5.5 11/02 # /2016 [facility] HEMATOLOGY Segs-Bands # 2.4 K/CMM 1.5 - 8.1 11/02 [facility] HEMATOLOGY Eosinophils 0.1 K/CMM 0.0 - 0.5 11/02 # [facility] HEMATOLOGY Monocytes # 0.3 K/CMM 0.0 - 0.8 11/02 [facility] HEMATOLOGY Segs 66.4 % 45.0 - 11/02 75.0 [facility] HEMATOLOGY Lymphocytes 24.2 % 20.0 - 11/02 40.0 [facility] HEMATOLOGY Monocytes 7.1 % 2.0 - 12.0 11/02 [facility] HEMATOLOGY Eosinophils 1.9 % 0.0 - 4.0 11/02 [facility] HEMATOLOGY Basophils 0.4 % 0.0 - 1.0 11/02 [facility] HEMATOLOGY Platelet 97 K/CMM 133 - 450 11/02 [facility] HEMATOLOGY MPV 9.8 fL 7.4 - 10.4 11/02 [facility] HEMATOLOGY RDW 13.8 % 11.5 - 11/02 MH 14.5 [facility] HEMATOLOGY WBC 3.6 K/CMM 3.7 - 10.4 11/02 [facility] HEMATOLOGY RBC 3.45 M/CMM 4.70 - 11/02 MH 6.10 [facility] HEMATOLOGY Hgb 10.5 g/dL 14.0 - 11/02 MH 18.0 [facility] HEMATOLOGY Hct 30.8 % 42.0 - 11/02 MH 54.0 [facility] HEMATOLOGY MCV 89.3 fL 80.0 - 11/02 MH 94.0 [facility] HEMATOLOGY MCHC 34.2 g/dL 32.0 - 11/02 MH 36.0 [facility] HEMATOLOGY MCH 30.6 pg 27.0 - 11/02 MH 31.0 [facility] SPECIAL Hgb A1C 7.4 % <=5.6 % 11/02 CHEMISTRY /2016 [facility] CHEM PANEL eGFR 52 12/29 Result Comment: [...] is not recommended in the following populations: [place] [address] Individuals with unstable creatinine concentrations, including patients [...] Lvl 149 mg/dL 70 - 99 12/29 [facility] CHEM PANEL Potassium 4.1 meq/L 3.5 - 5.1 12/29 Lvl [facility] CHEM PANEL Chloride Lvl 108 meq/L 95 - 109 12/29 [facility] CHEM PANEL CO2 30 meq/L 24 - 32 12/29 [facility] CHEM PANEL Calcium Lvl 8.6 mg/dL 8.5 - 10.5 12/29 [facility] CHEM PANEL BUN 19 mg/dL 7 - 12/29 [facility] CHEM PANEL Creatinine 1.28 mg/dL 0.50 - 12/29 [facility] Lvl 1.40 [facility] CHEM PANEL Sodium Lvl 145 meq/L 135 - 145 12/29 [facility] CHEM PANEL AGAP 11.1 meq/L 10.0 - 12/29 MH 20.0 [facility] CHEM PANEL Magnesium 2.1 mg/dL 1.8 - 2.4 12/29 Lvl /2015 [facility] HEMATOLOGY MCV 93.2 fL 80.0 - 12/29 MH 94.0 /2015 [facility] HEMATOLOGY Platelet 106 K/CMM 133 - 450 12/29 /2015 [facility] HEMATOLOGY MPV 9.3 fL 7.4 - 10.4 12/29 /2015 [facility] HEMATOLOGY MCH 31.2 pg 27.0 - 12/29 MH 31.0 /2015 [facility] HEMATOLOGY RDW 14.7 % 11.5 - 12/29 MH 14.5 /2015 [facility] HEMATOLOGY MCHC 33.5 g/dL 32.0 - 12/29 MH 36.0 /2015 [facility] HEMATOLOGY WBC 4.1 K/CMM 3.7 - 10.4 12/29 MH /2015 [facility] HEMATOLOGY RBC 3.63 M/CMM 4.70 - 12/29 MH 6.10 /2015 [facility] HEMATOLOGY Hct 33.8 % 42.0 - 12/29 MH 54.0 /2015 [facility] HEMATOLOGY Hgb 11.3 g/dL 14.0 - 12/29 MH 18.0 [facility] HEMATOLOGY Eosinophils 0.2 K/CMM 0.0 - 0.5 12/29 MH # /2015 [facility] HEMATOLOGY Segs-Bands # 2.4 K/CMM 1.5 - 8.1 12/29 /2015 [facility] HEMATOLOGY Monocytes # 0.4 K/CMM 0.0 - 0.8 12/29 /2015 [facility] HEMATOLOGY Lymphocytes 1.1 K/CMM 1.0 - 5.5 12/29 MH # /2015 [facility] HEMATOLOGY Basophils 0.4 % 0.0 - 1.0 12/29 [facility] HEMATOLOGY Eosinophils 4.2 % 0.0 - 4.0 12/29 [facility] HEMATOLOGY Segs 58.6 % 45.0 - 12/29 75.0 /2015 [facility] HEMATOLOGY Monocytes 10.3 % 2.0 - 12.0 12/29 /2015 [facility] HEMATOLOGY Lymphocytes 26.5 % 20.0 - 12/29 40.0 /2015 [facility] HEMATOLOGY POC 128 s 12/28 [facility] [employer] HEMATOLOGY PTT 75.4 s 22.9 - 12/28 35.8 /2015 [facility] CHEM PANEL Magnesium 2.0 mg/dL 1.8 - 2.4 12/28 Lvl /2015 [facility] CHEM PANEL Glucose Lvl 116 mg/dL 70 - 99 12/28 [facility] CHEM PANEL Potassium 3.8 meq/L 3.5 - 5.1 12/28 MH Lvl /2015 [facility] CHEM PANEL AGAP 13.8 meq/L 10.0 - [...] CHEM PANEL BUN 22 mg/dL 7 - 12/28 [facility] CHEM PANEL eGFR 52 12/28 [...] is not recommended in the following populations: [facility] 3m2 Individuals with unstable creatinine concentrations, including [...] Platelet 105 K/CMM 133 - 450 12/28 [facility] HEMATOLOGY RDW 14.6 % 11.5 - 12/28 MH 14. [facility] HEMATOLOGY MCH 30.7 pg 27.0 - 12/28 MH 31.0 [facility] HEMATOLOGY MCHC 33.2 g/dL 32.0 - 12/28 MH 36.0 [facility] HEMATOLOGY MPV 9.5 fL 7.4 - 10.4 12/28 [facility] HEMATOLOGY Hct 33.6 % 42.0 - 12/28 MH 54.0 [facility] HEMATOLOGY Hgb 11.2 g/dL 14.0 - 12/28 MH 18.0 [facility] HEMATOLOGY RBC 3.63 M/CMM 4.70 - 12/28 MH 6.10 /2015 [facility] HEMATOLOGY MCV 92.5 fL 80.0 - 12/28 94.0 /2015 [facility] HEMATOLOGY WBC 4.3 K/CMM 3.7 - 10.4 12/28 /2015 [facility] HEMATOLOGY PTT 47.5 s 22.9 - 12/28 MH 35.8 /2015 [facility] LIPIDS VLDL 45 12/28 /2015 [facility] LIPIDS LDL 69 mg/dL <=99 mg/dL 12/28 (Calculated) [facility] LIPIDS HDL 31 mg/dL >=61 mg/dL 12/28 [facility] LIPIDS CHD Risk 4.68 4.00 - 12/28 MH 7.30 /2015 [facility] LIPIDS Trig 225 mg/dL <=149 12/28 mg/dL /2015 [facility] LIPIDS Chol 145 mg/dL <=199 12/28 mg/dL /2015 [facility] CARDIAC Troponin-I 0.47 ng/mL 0.00 - 12/28 [facility] 0.40 /2015 [facility] CARDIAC Total CK 157 unit/L 12 - 12/28 [facility] /2015 [facility] CARDIAC CK MB Index 3.8 0.0 - 2.5 12/28 [facility] /2016 [facility] CARDIAC CK MB 5.9 ng/mL 0.5 - 3.6 12/28 [facility] /2015 [facility] HEMATOLOGY PTT 63.8 s . - 12/28 35. [facility] CARDIAC Troponin-I 0.71 ng/mL 0.00 - 12/28 Result ENZYMES 0.40 /2015 Comment: [facility] Critical Result(s) called to Ghazal Michael RN at 12/28/2015 20:26 by NIKOLE. Read back OK. CARDIAC Total CK 169 unit/L 12 - 191 12/28 [facility] /2016 [facility] CARDIAC CK MB Index 3.8 0.0 - 2.5 12/28 MH ENZYMES /2016 [facility] CARDIAC CK MB 6.5 ng/mL 0.5 - 3.6 12/28 MH ENZYMES /2015 [facility] CARDIAC CK MB Index 4.9 0.0 - 2.5 12/27 MH ENZYMES /2015 [facility] CARDIAC CK MB 8.8 ng/mL 0.5 - 3.6 12/27 MH ENZYMES /2015 [facility] CARDIAC Troponin-I 0.69 ng/mL 0.00 - 12/27 Result ENZYMES 0.40 Comment: [facility] Critical Result(s) called to Gris Caba RN at 12/28/2015 16:14 by NIKOLE. Read back OK. CARDIAC Total CK 180 unit/L 12 - 191 12/27 [facility] /2015 [facility] CARDIAC BNP 402 pg/mL <=100 12/27 [facility] pg/mL /2015 [facility] CHEM PANEL Lipase Lvl 73 unit/L 73 - 393 12/27 [facility] CHEM PANEL A/G Ratio 1.1 0.7 - 1.6 12/27 [facility] CHEM PANEL Globulin 3.3 g/dL 2.0 - 4.0 12/27 [facility] CHEM PANEL B/C Ratio 14 6 - 25 12/27 [facility] CHEM PANEL AGAP 9.6 meq/L 10.0 - 12/27 20.0 [facility] CHEM PANEL eGFR 43 12/27 Result Comment: [...] is not recommended in the following populations: [facility] 3m2 Individuals with unstable creatinine concentrations, including [...] Phos 83 unit/L 39 - 136 12/27 [facility] CHEM PANEL AST 30 unit/L 0 - 37 12/27 [facility] CHEM PANEL ALT 29 unit/L 0 - 65 12/27 [facility] CHEM PANEL Bili Total 0.9 mg/dL 0.2 - 1.3 12/27 [facility] CHEM PANEL CO2 29 meq/L 24 - 32 12/27 [facility] CHEM PANEL Chloride Lvl 104 meq/L 95 - 109 12/27 [facility] CHEM PANEL Calcium Lvl 9.1 mg/dL 8.5 - 10.5 12/27 [facility] CHEM PANEL Albumin Lvl 3.6 g/dL 3.5 - 5.0 12/27 [facility] CHEM PANEL Total 6.9 g/dL 6.4 - 8.4 12/27 [facility] CHEM PANEL Creatinine 1.50 mg/dL 0.50 - 12/27 MH Lvl 1.40 [facility] CHEM PANEL Sodium Lvl 139 meq/L 135 - 145 07 [facility] CHEM PANEL Potassium 3.6 meq/L 3.5 - 5.1 12/27 MH Lvl /2015 [facility] CHEM PANEL Glucose Lvl 178 mg/dL 70 - 99 07 [facility] CHEM PANEL BUN 21 mg/dL 7 - 22 12/27 [facility] HEMATOLOGY Eosinophils 0.1 K/CMM 0.0 - 0.5 12/27 MH # /2015 [facility] HEMATOLOGY Monocytes # 0.3 K/CMM 0.0 - 0.8 12/27 [facility] HEMATOLOGY Segs 66.2 % 45.0 - 12/27 MH 75.0 /2015 [facility] HEMATOLOGY Lymphocytes 0.9 K/CMM 1.0 - 5.5 12/27 MH # [facility] HEMATOLOGY Basophils 0.6 % 0.0 - 1.0 12/27 [facility] HEMATOLOGY Segs-Bands # 2.8 K/CMM 1.5 - 8.1 12/27 [facility] HEMATOLOGY Monocytes 7.9 % 2.0 - 12.0 12/27 [facility] HEMATOLOGY Eosinophils 3.2 % 0.0 - 4.0 12/27 [facility] HEMATOLOGY Lymphocytes 22.1 % 20.0 - 12/27 MH 40.0 /2015 [facility] HEMATOLOGY INR 1.04 0.85 - 12/27 MH 1.17 [facility] HEMATOLOGY PT 13.9 s 12.0 - 12/27 MH 14.7 [facility] HEMATOLOGY Hct 36.1 % 42.0 - 12/27 MH 54.0 /2016 [facility] HEMATOLOGY Hgb 12.0 g/dL 14.0 - 12/27 MH 18.0 /2015 [facility] HEMATOLOGY RBC 3.89 M/CMM 4.70 - 12/27 MH 6.10 [facility] HEMATOLOGY MPV 9.4 fL 7.4 - 10.4 12/27 /2015 [facility] HEMATOLOGY Platelet 115 K/CMM 133 - 450 12/27 [facility] HEMATOLOGY RDW 14.7 % 11.5 - 12/27 MH 14.5 /2016 [facility] HEMATOLOGY MCHC 33.1 g/dL 32.0 - 12/27 36.0 /2015 [facility] HEMATOLOGY MCV 92.8 fL 80.0 - 12/27 94.0 /2015 [facility] HEMATOLOGY MCH 30.7 pg 27.0 - 12/27 31.0 [facility] HEMATOLOGY WBC 4.2 K/CMM 3.7 - 10.4 12/27 [facility] Chest Chest 1view Clinical Indication: Left-sided chest pain 12/27 - 1view DX DX /2015 - [facility] Comparison: 05/12/2015 Read by: Edna Schrader MD [...] IMPRESSION: No acute infiltrates or effusions. SL: [id number] CHEM PANEL Phosphorus 3.7 mg/dL 2.5 - 4.5 05/22 [facility] CHEM PANEL Magnesium 2.1 mg/dL 1.8 - 2.4 05/22 [facility] CHEM PANEL eGFR 49 05/22 Result Comment: The eGFR is calculated using the CKD-EPI formula. In most young, healthy individuals the eGFR will be >90 mL/ min/1.73m2. The eGFR declines with age. An eGFR of 60-89 may be normal in [facility] mL/min/1.7 some populations, particularly the elderly, for whom the CKD-EPI formula has not been extensively validated. Use of the eGFR is not recommended in the following populations: [place] [address] [facility] Individuals with unstable creatinine concentrations, including [...] Lvl 8.2 mg/dL 8.5 - 10.5 05/22 [facility] CHEM PANEL Creatinine 1.35 mg/dL 0.50 - 05/22 Lvl 1.40 /2014 [facility] CHEM PANEL Chloride Lvl 108 meq/L 95 - 109 05/22 [facility] CHEM PANEL CO2 26 meq/L 24 - 32 05/22 [facility] CHEM PANEL Sodium Lvl 141 meq/L 135 - 145 05/22 [facility] CHEM PANEL Potassium 4.5 meq/L 3.5 - 5.1 05/22 [facility] Lvl /2014 [facility] CHEM PANEL Glucose Lvl 110 mg/dL 70 - 99 05/22 [facility] CHEM PANEL BUN 22 mg/dL 7 - 22 05/22 [facility] CHEM PANEL AGAP 11.5 meq/L 10.0 - 05/22 20.0 [facility] HEMATOLOGY RDW 13.1 % 11.5 - 05/22 14.5 [facility] HEMATOLOGY MCHC 32.5 g/dL 32.0 - 05/22 36.0 [facility] HEMATOLOGY MCH 32.3 pg 27.0 - 05/22 31.0 [facility] HEMATOLOGY MCV 99.6 fL 80.0 - 05/22 94.0 [facility] HEMATOLOGY Hct 31.2 % 42.0 - 05/22 54.0 [facility] HEMATOLOGY MPV 9.4 fL 7.4 - 10.4 05/22 [facility] HEMATOLOGY Platelet 127 K/CMM 133 - 450 05/22 [facility] HEMATOLOGY Hgb 10.1 g/dL 14.0 - 05/22 18.0 [facility] HEMATOLOGY RBC 3.14 M/CMM 4.70 - 12 6.10 [facility] HEMATOLOGY WBC 4.4 K/CMM 3.7 - 10.4 05/22 [facility] HEMATOLOGY Eosinophils 0.2 K/CMM 0.0 - 0.5 05/22 [facility] # [facility] HEMATOLOGY Monocytes # 0.5 K/CMM 0.0 - 0.8 05/22 [facility] HEMATOLOGY Lymphocytes 19.4 % 20.0 - 05/22 [place] 40.0 /2014 [facility] HEMATOLOGY Segs 64.5 % 45.0 - 05/22 [place] 75.0 [facility] HEMATOLOGY Lymphocytes 0.9 K/CMM 1.0 - 5.5 05/22 [place] # /2014 [facility] HEMATOLOGY Segs-Bands # 2.8 K/CMM 1.5 - 8.1 05/22 [facility] HEMATOLOGY Basophils 0.5 % 0.0 - 1.0 05/22 [facility] HEMATOLOGY Eosinophils 3.9 % 0.0 - 4.0 05/22 [facility] HEMATOLOGY Monocytes 11.7 % 2.0 - 12.0 05/22 [facility] HVI VAS HVI VAS INDICATION: groin hematoma 05/22 - [facility] Arterial/b Arterial/by - [facility] ypass ass Lower This report was dictated by a Bin Worker/ Fellow. I have personally reviewed the images [...] fistula. CARDIAC Troponin-T 0.014 0.000 - 05/21 [facility] ENZYMES ng/mL 0.100 /2014 [facility] CARDIAC Troponin-I 0.04 ng/mL 0.00 - 05/21 [facility] ENZYMES 0.40 /2014 [facility] CARDIAC Total CK 34 unit/L 12 - 191 05/21 [facility] ENZYMES /2014 [facility] CHEM PANEL eGFR 63 05/21 Result Comment: The eGFR is calculated using the CKD-EPI formula. In most young, healthy individuals the eGFR will be >90 mL/ min/1.73m2. The eGFR declines with age. An eGFR of 60-89 may be normal in [facility] mL/min/1.7 some populations, particularly the elderly, for whom the CKD-EPI formula has not been extensively validated. Use of the eGFR is not recommended in the following populations: [address] Individuals with unstable creatinine concentrations, including [...] PANEL AGAP 15.1 meq/L 10.0 - 05/21 [facility] 20.0 [facility] CHEM PANEL Calcium Lvl 8.5 mg/dL 8.5 - 10.5 05/[address] CHEM PANEL CO2 20 meq/L 24 - 32 05/[address] CHEM PANEL Creatinine 1.09 mg/dL 0.50 - 05/21 [facility] Lvl 1.40 [facility] CHEM PANEL BUN 17 mg/dL 7 - 22 05/[address] CHEM PANEL Potassium 4.1 meq/L 3.5 - 5.1 05/[address] CHEM PANEL Sodium Lvl 140 meq/L 135 - 145 05/[address] CHEM PANEL Glucose Lvl 177 mg/dL 70 - 99 05/[address] CHEM PANEL Chloride Lvl 109 meq/L 95 - 109 05/[address] CHEM PANEL Phosphorus 4.2 mg/dL 2.5 - 4.5 05/[address] CHEM PANEL Magnesium 2.2 mg/dL 1.8 - 2.4 05/21 [facility] /[address] [place] [address] HEMATOLOGY Macrocyte 1+ None Seen 05/21 [facility] [address] [place] [address]* Center (05/21/15 12:13 AM) HEMATOLOGY Lymphocytes 0.6 K/CMM 1.0 - 5.5 05/21 [facility] /2014 [facility] HEMATOLOGY Basophils 0.4 % 0.0 - 1.0 05/[address] HEMATOLOGY Monocytes # 0.4 K/CMM 0.0 - 0.8 12/ /2014 [facility] HEMATOLOGY Lymphocytes 15.6 % 20.0 - 12/ [place] 40.0 /2014 [facility] HEMATOLOGY Segs-Bands # 3.0 K/CMM 1.5 - 8.1 12 [facility] HEMATOLOGY Monocytes 8.8 % 2.0 - 12.0 12/ [facility] HEMATOLOGY Eosinophils 0.7 % 0.0 - 4.0 12 [facility] HEMATOLOGY Segs 74.5 % 45.0 - 12/ [place] 75.0 /2014 [facility] HEMATOLOGY INR 1.11 0.85 - 12 [place] 1.17 /2014 [facility] HEMATOLOGY PTT 30.1 s 22.9 - 12/ [place] 35.8 /2014 [facility] HEMATOLOGY PT 14.6 s 12.0 - 12 [place] 14.7 [facility] HEMATOLOGY Platelet 117 K/CMM 133 - 450 12 [facility] HEMATOLOGY MPV 9.6 fL 7.4 - 10.4 12 [facility] HEMATOLOGY MCH 33.1 pg 27.0 - 12 [place] 31.0 /2014 [facility] HEMATOLOGY MCHC 32.9 g/dL 32.0 - 12 [place] 36.0 /2014 [facility] HEMATOLOGY RDW 13.2 % 11.5 - 12/12 [place] 14.5 /2014 [facility] HEMATOLOGY Hgb 10.2 g/dL 14.0 - 12 [place] 18.0 /2014 [facility] HEMATOLOGY Hct 30.9 % 42.0 - 12 [place] 54.0 [facility] HEMATOLOGY MCV 100.6 fL 80.0 - 12 [place] 94.0 [facility] HEMATOLOGY RBC 3.07 M/CMM 4.70 - 12 [place] 6.10 [facility] HEMATOLOGY WBC 4.0 K/CMM 3.7 - 10.4 12 [facility] PARATHYROI Ca Norm WB 1.13 1.05 - 05/21 [facility] D PROFILE mMol/L 1. [facility] PARATHYROI Ca Ion WB 1.09 1.05 - 05/21 [facility] D PROFILE mMol/L 1. [facility] CHEM PANEL Lactic Acid 0.7 mMol/L 0.5 - 2.2 05/20 [facility] CHEM PANEL Magnesium 1.4 mg/dL 1.8 - 2.4 05/20 [facility] CHEM PANEL Phosphorus 3.5 mg/dL 2.5 - 4.5 05/20 [facility] CHEM PANEL eGFR 78 05/20 Result Comment: The eGFR is calculated using the CKD-EPI formula. In most young, healthy individuals the eGFR will be >90 mL/ min/1.73m2. The eGFR declines with age. An eGFR of 60-89 may be normal in [facility] mL/min/1.7 some populations, particularly the elderly, for whom the CKD-EPI formula has not been extensively validated. Use of the eGFR is not recommended in the following populations: [address] Individuals with unstable creatinine concentrations, including [...] mg/dL 8.5 - 10.5 05/20 Result Comment: [facility] Result(s) called to HANK TANNER at 05/20/2015 14:22_ by CN_. Read back OK. CHEM PANEL AGAP 14.7 meq/L 10.0 - 05/20 20.0 [facility] CHEM PANEL Glucose Lvl 108 mg/dL 70 - 99 05/20 [facility] CHEM PANEL Sodium Lvl 145 meq/L 135 - 145 05/20 [facility] CHEM PANEL Potassium 2.7 meq/L 3.5 - 5.1 05/20 Result Comment: [facility] Result(s) called to HANK TANNER at 05/20/2015 14:22_ by CN_. Read back OK. CHEM PANEL BUN 12 mg/dL 7 - 22 05/20 [facility] CHEM PANEL Creatinine 0.92 mg/dL 0.50 - 05/20 [facility] Lvl 1. [facility] CHEM PANEL Chloride Lvl 113 meq/L 95 - 109 05/20 [facility] CHEM PANEL CO2 20 meq/L 24 - 32 12/ /2014 [facility] HEMATOLOGY PTT >200 22.9 - 12 Result [facility] seconds 35.8 /2014 Comment: [facility] Result(s) called to Benigno Jennings at 05/20/2015 14:[address] Read back OK. HEMATOLOGY PT 16.3 s 12.0 - 05/20 [place] 14.7 /2014 [facility] HEMATOLOGY INR 1.28 0.85 - 05/20 [place] 1.17 /2014 [facility] HEMATOLOGY Platelet 108 K/CMM 133 - 450 12 [facility] HEMATOLOGY MPV 9.8 fL 7.4 - 10.4 12 [facility] HEMATOLOGY MCV 100.5 fL 80.0 - 05/20 [facility] 94.0 [facility] HEMATOLOGY RDW 13.3 % 11.5 - 12 [facility] 14.5 /2014 [facility] HEMATOLOGY MCHC 32.9 g/dL 32.0 - 12 [place] 36.0 [facility] HEMATOLOGY MCH 33.1 pg 27.0 - 05/20 [place] 31.0 [facility] HEMATOLOGY RBC 2.95 M/CMM 4.70 - 05/20 [place] 6.10 /2014 [facility] HEMATOLOGY Hct 29.7 % 42.0 - 05/20 [facility] 54.0 [facility] HEMATOLOGY Hgb 9.8 g/dL 14.0 - 05/20 18.0 /2014 [facility] HEMATOLOGY WBC 3.6 K/CMM 3.7 - 10.4 12 [facility] HEMATOLOGY Monocytes 11.3 % 2.0 - 12.0 05/20 [facility] HEMATOLOGY Segs 60.4 % 45.0 - 12 [place] 75.0 /2014 [facility] HEMATOLOGY Lymphocytes 23.3 % 20.0 - 12 [place] 40.0 /2014 [facility] HEMATOLOGY Segs-Bands # 2.2 K/CMM 1.5 - 8.1 05/20 [facility] HEMATOLOGY Lymphocytes 0.9 K/CMM 1.0 - 5.5 12 [facility] # /2014 [facility] HEMATOLOGY Basophils 0.3 % 0.0 - 1.0 05/20 /2014 [facility] HEMATOLOGY Eosinophils 4.7 % 0.0 - 4.0 05/20 [facility] HEMATOLOGY Monocytes # 0.4 K/CMM 0.0 - 0.8 05/20 /2014 [facility] HEMATOLOGY Macrocyte 1+ None [facility]48 [facility] HEMATOLOGY Eosinophils 0.2 K/CMM 0.0 - 0.5 05/20 [facility] # /2014 [facility] PARATHYROI Ca Ion WB 1.12 1.05 - 05/20 [facility] D PROFILE mMol/L 1. [facility] PARATHYROI Ca Norm WB 1.09 1.05 - 05/20 [facility] D PROFILE mMol/L 1. [facility] CHEM PANEL Globulin 3.0 g/dL 2.0 - 4.0 05/20 [facility]2014 [facility] CHEM PANEL B/C Ratio 15 6 - 25 05/20 [facility] /[address] [place] [address] CHEM PANEL Bili Total 0.8 mg/dL 0.2 - 1.3 05/20 /2014 [facility] CHEM PANEL A/G Ratio 1.1 0.7 - 1.6 05/20 /[address] [place] [address] CHEM PANEL Alk Phos 73 unit/L 39 - 136 05/20 [facility] [address] [place] [address] CHEM PANEL Albumin Lvl 3.2 g/dL 3.5 - 5.0 05/[address] [place] [address] CHEM PANEL ALT 30 unit/L 0 - 65 05/20 [facility] CHEM PANEL AST 20 unit/L 0 - 37 05/[address] [place] [address] CHEM PANEL Total 6.2 g/dL 6.4 - 8.4 05/20 [facility] HEMATOLOGY INR 1.06 0.85 - 05/20 [place] 1.17 [facility] HEMATOLOGY PT 14.1 s 12.0 - 05/20 [place] 14.7 [facility] HEMATOLOGY PTT 67.4 s 22.9 - 05/20 [place] 35.8 [facility] HEMATOLOGY Eosinophils 0.2 K/CMM 0.0 - 0.5 05/20 [facility] /2014 [facility] CHEM PANEL AST 27 unit/L 0 - 37 05/17 /[address] [place] [address] CHEM PANEL ALT 30 unit/L 0 - 65 05/17 /[facility] CHEM PANEL Albumin Lvl 3.0 g/dL 3.5 - 5.0 05/17 [facility] CHEM PANEL Alk Phos 65 unit/L 39 - 136 05/17 [facility] CHEM PANEL B/C Ratio 11 6 - 25 05/17 [facility] CHEM PANEL Bili Total 0.8 mg/dL 0.2 - 1.3 05/17 [facility] CHEM PANEL Total 5.6 g/dL 6.4 - 8.4 05/17 [facility] CHEM PANEL A/G Ratio 1.2 0.7 - 1.6 05/17 [facility] CHEM PANEL Globulin 2.6 g/dL 2.0 - 4.0 05/17 [facility] HEMATOLOGY PTT 58.0 s 22.9 - 05/16 35.8 [facility] CHEM PANEL Phosphorus 3.0 mg/dL 2.5 - 4.5 05/15 [facility] CHEM PANEL Magnesium 1.8 mg/dL 1.8 - 2.4 05/15 Lv [facility] ELECTROLYT AGAP 8.9 meq/L 10.0 - 05/15 [facility] 20.0 /2014 [facility] ELECTROLYT eGFR 59 05/15 Result Comment: The eGFR is calculated using the CKD-EPI formula. In most young, healthy individuals the eGFR will be >90 mL/ min/1.73m2. The eGFR declines with age. An eGFR of 60-89 may be normal in [facility] mL/min/1.7 /2014 some populations, particularly the elderly, for whom the CKD-EPI formula has not been extensively validated. Use of the eGFR is not recommended in the following populations: [address] Individuals with unstable creatinine concentrations, including [...] 8.5 mg/dL 8.5 - 10.5 05/15 [facility] ELECTROLYT CO2 27 meq/L 24 - 32 05/15 ES [facility] ELECTROLYT Sodium Lvl 141 meq/L 135 - 145 05/15 [facility] ELECTROLYT Potassium 3.9 meq/L 3.5 - 5.1 05/15 ES Lvl /2014 [facility] ELECTROLYT Chloride Lvl 109 meq/L 95 - 109 05/15 [facility] ELECTROLYT Glucose Lvl 117 mg/dL 70 - 99 05/15 ES /2014 [facility] ELECTROLYT Creatinine 1.15 mg/dL 0.50 - 05/15 ES Lvl 1.40 /2014 [facility] ELECTROLYT BUN 14 mg/dL 7 - 22 05/15 ES /2014 [facility] HEMATOLOGY Segs-Bands # 2.7 K/CMM 1.5 - 8.1 05/15 [facility] HEMATOLOGY Lymphocytes 1.2 K/CMM 1.0 - 5.5 05/15 # /2014 [facility] HEMATOLOGY Eosinophils 0.2 K/CMM 0.0 - 0.5 05/15 # /2014 [facility] HEMATOLOGY Monocytes # 0.5 K/CMM 0.0 - 0.8 05/15 /2014 [facility] HEMATOLOGY Macrocyte 1+ None Seen 05/15 /2014 [facility] *ABN* (05/15/15 4:30 AM) HEMATOLOGY Monocytes 11.6 % 2.0 - 12.0 05/15 /2014 [facility] HEMATOLOGY Lymphocytes 25.4 % 20.0 - 05/15 40.0 [facility] HEMATOLOGY Segs 57.5 % 45.0 - 05/15 75.0 /2014 [facility] HEMATOLOGY Basophils 0.5 % 0.0 - 1.0 05/15 [facility] HEMATOLOGY Eosinophils 5.0 % 0.0 - 4.0 05/15 [facility] HEMATOLOGY PTT 56.4 s 22.9 - 05/15 MH 35.8 /2014 [facility] HEMATOLOGY MCH 33.4 pg 27.0 - 05/15 [facility] 31.0 /2014 [facility] HEMATOLOGY Hct 32.9 % 42.0 - 05/15 [facility] 54.0 /2014 [facility] HEMATOLOGY MCV 99.6 fL 80.0 - 05/15 94.0 /2014 [facility] HEMATOLOGY Platelet 104 K/CMM 133 - 450 05/15 /2014 [facility] HEMATOLOGY MPV 9.5 fL 7.4 - 10.4 05/15 [facility] HEMATOLOGY RDW 13.4 % 11.5 - 05/15 [facility] 14. [facility] HEMATOLOGY MCHC 33.6 g/dL 32.0 - 05/15 MH 36.0 /2014 [facility] HEMATOLOGY RBC 3.30 M/CMM 4.70 - 12/ MH 6.10 /2014 [facility] HEMATOLOGY Hgb 11.0 g/dL 14.0 - 12 18.0 /2014 [facility] HEMATOLOGY WBC 4.7 K/CMM 3.7 - 10.4 05/15 [facility] HEMATOLOGY PTT 55.3 s 22.9 - 05/14 MH 35.8 /2014 [facility] CHEM PANEL Phosphorus 3.2 mg/dL 2.5 - 4.5 05/14 [facility] CHEM PANEL Magnesium 1.7 mg/dL 1.8 - 2.4 05/14 Lv [facility] CHEM PANEL eGFR 52 05/14 Result Comment: [...] is not recommended in the following populations: [place] [address] Individuals with unstable creatinine concentrations, including patients [...] Lvl 108 meq/L 95 - 109 05/14 [facility] CHEM PANEL Potassium 3.9 meq/L 3.5 - 5.1 05/14 Lv [facility] CHEM PANEL Sodium Lvl 142 meq/L 135 - 145 05/14 [facility] CHEM PANEL Creatinine 1.29 mg/dL 0.50 - 05/14 Lvl 1.40 /2014 [facility] CHEM PANEL CO2 26 meq/L 24 - 32 05/14 [facility] CHEM PANEL Calcium Lvl 8.2 mg/dL 8.5 - 10.5 05/14 [facility] CHEM PANEL BUN 20 mg/dL 7 - 22 05/14 [facility] CHEM PANEL Glucose Lvl 111 mg/dL 70 - 99 05/14 [facility] CHEM PANEL AGAP 11.9 meq/L 10.0 - 05/14 MH 20.0 /2014 [facility] HEMATOLOGY MPV 9.3 fL 7.4 - 10.4 12 /2014 [facility] HEMATOLOGY RDW 13.2 % 11.5 - 12 MH 14.5 /2014 [facility] HEMATOLOGY MCHC 33.2 g/dL 32.0 - 12 MH 36.0 /2014 [facility] HEMATOLOGY Platelet 102 K/CMM 133 - 450 12 /2014 [facility] HEMATOLOGY MCH 33.2 pg 27.0 - 12 MH 31.0 /2014 [facility] HEMATOLOGY Hct 32.7 % 42.0 - 12 [facility] 54.0 /2014 [facility] HEMATOLOGY MCV 99.9 fL 80.0 - 05/14 [facility] 94.0 /2014 [facility] HEMATOLOGY WBC 5.1 K/CMM 3.7 - 10.4 05/14 /2014 [facility] HEMATOLOGY RBC 3.27 M/CMM 4.70 - 05/14 MH 6.10 /2014 [facility] HEMATOLOGY Hgb 10.9 g/dL 14.0 - 05/14 MH 18.0 /2014 [facility] HEMATOLOGY Lymphocytes 1.4 K/CMM 1.0 - 5.5 05/14 MH # /2015 [facility] HEMATOLOGY Monocytes # 0.5 K/CMM 0.0 - 0.8 05/14 /2014 [facility] HEMATOLOGY Segs-Bands # 3.0 K/CMM 1.5 - 8.1 05/14 /2014 [facility] HEMATOLOGY Basophils 0.5 % 0.0 - 1.0 05/14 /2014 [facility] HEMATOLOGY Eosinophils 0.2 K/CMM 0.0 - 0.5 05/14 # /2015 [facility] HEMATOLOGY Macrocyte 1+ None Seen 05/14 /2014 [facility] *ABN* (05/14/15 6:20 AM) HEMATOLOGY Segs 58.7 % 45.0 - 12 [facility] 75.0 /2015 [facility] HEMATOLOGY Lymphocytes 26.6 % 20.0 - 12 MH 40.0 /2014 [facility] HEMATOLOGY Monocytes 10.1 % 2.0 - 12.0 05/14 /2014 [facility] HEMATOLOGY Eosinophils 4.1 % 0.0 - 4.0 05/14 /2014 [facility] CARDIAC Total CK 74 unit/L 12 - 191 05/13 [facility] /2015 [facility] CARDIAC Troponin-I 0.69 ng/mL 0.00 - 12 Result [facility] 0.40 /2015 Comment: [facility] Critical Result(s) called to Taz Hebert RN at 05/13/2015 03:08 by shyann. Read back OK. CHEM PANEL Phosphorus 3.0 mg/dL 2.5 - 4.5 05/13 [facility] CHEM PANEL Magnesium 1.8 mg/dL 1.8 - 2.4 05/13 Lvl [facility] ELECTROLYT AGAP 9.0 meq/L 10.0 - 05/13 ES 20.0 /2014 [facility] ELECTROLYT eGFR 48 05/13 Result Comment: The eGFR is calculated using the CKD-EPI formula. In most young, healthy individuals the eGFR will be >90 mL/ min/1.73m2. The eGFR declines with age. An eGFR of 60-89 may be normal in [facility] mL/min/1.7 /2014 some populations, particularly the elderly, for whom the CKD-EPI formula has not been extensively validated. Use of the eGFR is not recommended in the following populations: [facility] 3m2 Individuals with unstable creatinine concentrations, including [...] 8.8 mg/dL 8.5 - 10.5 05/13 ES [facility] ELECTROLYT CO2 28 meq/L 24 - 32 05/13 ES [facility] ELECTROLYT Chloride Lvl 108 meq/L 95 - 109 05/13 ES /2014 [facility] ELECTROLYT Potassium 4.0 meq/L 3.5 - 5.1 05/13 ES Lvl [facility] ELECTROLYT Glucose Lvl 127 mg/dL 70 - 99 05/13 ES [facility] ELECTROLYT Sodium Lvl 141 meq/L 135 - 145 05/13 ES /2014 [facility] ELECTROLYT Creatinine 1.36 mg/dL 0.50 - 05/13 ES Lvl 1.40 /2014 [facility] ELECTROLYT BUN 29 mg/dL 7 - 22 05/13 ES /2014 [facility] HEMATOLOGY Eosinophils 0.1 K/CMM 0.0 - 0.5 05/13 # /2014 [facility] HEMATOLOGY Monocytes # 0.4 K/CMM 0.0 - 0.8 05/13 [facility] HEMATOLOGY Macrocyte 1+ None Seen 05/13 [facility] *ABN* (05/13/15 2:07 AM) HEMATOLOGY Segs-Bands # 2.7 K/CMM 1.5 - 8.1 05/13 [facility] HEMATOLOGY Basophils 0.4 % 0.0 - 1.0 05/13 [facility] HEMATOLOGY Eosinophils 3.2 % 0.0 - 4.0 05/13 [facility] HEMATOLOGY Lymphocytes 1.2 K/CMM 1.0 - 5.5 05/13 [facility] # /2014 [facility] HEMATOLOGY Monocytes 8.6 % 2.0 - 12.0 05/13 [facility] HEMATOLOGY Lymphocytes 27.6 % 20.0 - 12 MH 40.0 /2014 [facility] HEMATOLOGY Segs 60.2 % 45.0 - 05/13 MH 75.0 [facility] HEMATOLOGY WBC 4.4 K/CMM 3.7 - 10.4 05/13 [facility] HEMATOLOGY RBC 3.33 M/CMM 4.70 - 05/13 MH 6.10 [facility] HEMATOLOGY Platelet 114 K/CMM 133 - 450 05/13 [facility] HEMATOLOGY MPV 10.0 fL 7.4 - 10.4 05/13 /2014 [facility] HEMATOLOGY Hgb 11.3 g/dL 14.0 - 05/13 MH 18.0 [facility] HEMATOLOGY Hct 33.1 % 42.0 - 05/13 MH 54.0 [facility] HEMATOLOGY RDW 13.4 % 11.5 - 05/13 MH 14.5 [facility] HEMATOLOGY MCV 99.4 fL 80.0 - 05/13 MH 94.0 [facility] HEMATOLOGY MCH 34.0 pg 27.0 - 12 MH 31.0 [facility] HEMATOLOGY MCHC 34.2 g/dL 32.0 - 12 MH 36.0 /2014 [facility] LIPIDS Trig 302 mg/dL <=149 05/13 MH mg/dL /2014 [facility] LIPIDS VLDL 60 05/13 [facility] LIPIDS Chol 143 mg/dL <=199 05/13 mg/dL /2014 [facility] LIPIDS CHD Risk 5.11 4.00 - 12 MH 7.30 /2014 [facility] LIPIDS HDL 28 mg/dL >=61 mg/dL 05/13 [facility] LIPIDS LDL 55 mg/dL <=99 mg/dL 12/04 [facility] (Calculated) /2014 [facility] CARDIAC CK MB Index 3.9 0.0 - 2.5 05/13 [facility] /2014 [facility] CARDIAC CK MB 3.3 ng/mL 0.5 - 3.6 05/13 [facility] /2014 [facility] CARDIAC Total CK 85 unit/L 12 - 191 05/13 [facility] /2014 [facility] CARDIAC Troponin-I 0.69 ng/mL 0.00 - 12 Result MH [facility]YM[facility] 0.40 /2015 Comment: [facility] Critical Result(s) called to Taz Hebert RN at 05/12/2015 22:11 by shyann. Read back OK. HEMATOLOGY INR 1.14 0.85 - 05/13 MH 1.17 /2014 [facility] HEMATOLOGY PT 14.9 s 12.0 - 05/13 [facility] 14.7 /2014 [facility] CARDIAC BNP 408 pg/mL <=100 05/12 [facility] pg/mL /2014 [facility] CARDIAC Troponin-I 1.25 ng/mL 0.00 - 05/12 Result EN[facility] 0.40 /2014 Comment: [facility] Critical Result(s) called to jose alfredo shearer at _05/12/2015 15:38 bybz_. Read back OK. CARDIAC Total CK 112 unit/L 12 - 191 05/12 [facility] /2014 [facility] CARDIAC CK MB 4.5 ng/mL 0.5 - 3.6 05/12 [facility] /2014 [facility] CARDIAC CK MB Index 4.0 0.0 - 2.5 05/12 [facility] /2014 [facility] CHEM PANEL Alk Phos 89 unit/L 39 - 136 05/12 [facility] CHEM PANEL B/C Ratio 18 6 - 25 05/12 [facility] CHEM PANEL Bili Total 0.9 mg/dL 0.2 - 1.3 05/12 [facility] CHEM PANEL A/G Ratio 1.1 0.7 - 1.6 05/12 [facility] CHEM PANEL Globulin 3.7 g/dL 2.0 - 4.0 05/12 [facility] CHEM PANEL Total 7.6 g/dL 6.4 - 8.4 05/12 [facility] CHEM PANEL Albumin Lvl 3.9 g/dL 3.5 - 5.0 05/12 [facility] CHEM PANEL AST 33 unit/L 0 - 37 05/12 [facility] CHEM PANEL ALT 34 unit/L 0 - 65 05/12 [facility] HEMATOLOGY INR 1.02 0.85 - 12/03 1.17 /2014 [facility] HEMATOLOGY PT 13.7 s 12.0 - 05/12 14.7 /2014 [facility] URINE AND UA Leuk Est Negative Negative 05/12 [facility] (05/12/15 2:56 PM) URINE AND UA Bili Negative Negative 05/12 [facility] *NA* (05/12/15 2:56 PM) URINE AND UA Blood Negative Negative 05/12 [facility] (05/12/15 2:56 PM) URINE AND UA Nitrite Negative Negative 05/12 STOOL [facility] (05/12/15 2:56 PM) URINE AND UA 0.2 EU/dL 0.1 - 1.0 05/12 STOOL Urobilinogen [facility] URINE AND UA pH 5.0 5.0 - 8.0 05/12 [facility] URINE AND UA Color Yellow Yellow 05/12 [facility] *NA* (05/12/15 2:56 PM) URINE AND UA Glucose Negative Negative 05/12 STOOL mg/dL mg/dL [facility] URINE AND UA Protein Negative Negative 05/12 [facility] mg/dL mg/dL [facility] URINE AND UA Ketones Negative Negative 05/12 [facility] mg/dL mg/dL [facility] URINE AND UA Spec Grav 1.010 <=1.030 05/12 [facility] URINE AND UA Turbidity Clear Clear 05/12 [facility] (05/12/15 2:56 PM) URINE AND UA WBC 0-2 /HPF None Seen 05/12 /HPF [facility] URINE AND UA Sq Epi None Seen Few 05/12 [facility] (05/12/15 2:56 PM) URINE AND UA Bacteria None Seen None Seen 05/12 STOOL [facility] (05/12/15 2:56 PM) URINE AND UA RBC None Seen 0 - 2 05/12 [facility] (05/12/15 2:56 PM) Chest Chest 1view Name: GILL MADERA 05/12 1view DX [facility] : 1935 Read by: Snehal Fung MD [...] Renal Renal Stone Name: GILL MADERA 11/13 - [facility] CT CT /2013 - Outpatient : 1935 [facility] Read by: Silverio Mahmood MD Dictated Date/time: [...] reconstructions were obtained and viewed on a [employer] workstation. FINDINGS: A 5 mm calcified granuloma [...] POC 148 mg/dL 65 - 110 06/29 MD 1Interpretive GLUCOSE [facility] Data: [facility] TESTING Upper Reportable Limit: 200 mg/dL. BEDSIDE Gluc POC 180 mg/dL - 110 06/29 MD 2[facility]: [facility] TESTING Upper Reportable Limit: 200 mg/dL. BEDSIDE Gluc POC 248 mg/dL - 110 06/28 MD 3[facility] TESTING Upper Reportable Limit: 200 mg/dL. CHEMISTRY AGAP 14.6 meq/L 10.0 - 06/26 Normal 20.0 [facility] CHEMISTRY Calcium Lvl 9.1 mg/dL 8.5 - 10.5 06/26 Normal [facility] CHEMISTRY CO2 27 meq/L 24 - 32 06/26 Normal [facility] CHEMISTRY Chloride Lvl 103 meq/L 95 - 109 06/26 Normal [facility] CHEMISTRY Potassium 4.6 meq/L 3.5 - 5.1 06/26 Normal Lvl [facility] CHEMISTRY Sodium Lvl 140 meq/L 135 - 145 06/26 Normal [facility] CHEMISTRY Creatinine 2.1 mg/dL 0.5 - 1.4 06/26 HI Lvl [facility] CHEMISTRY Glucose Lvl 175 mg/dL 06/26 NA 4Interpretive Data: [facility] Reference Ranges : 0 - 7 days : 41 - 90 mg/dL7 days - 150 yrs : 70 - 99 mg/dL (fasting), based on the clinical recommendatio ns of the [place] [employer]. CHEMISTRY BUN 36 mg/dL 7 - 22 06/26 HI [facility] HEMATOLOGY Basophils # 0.0 K/CMM 0.0 - 0.2 06/26 Normal [facility] HEMATOLOGY Eosinophils 0.1 K/CMM 0.0 - 0.5 06/26 Normal [facility] HEMATOLOGY Eosinophils 1.8 % 0.0 - 4.0 06/26 Normal [facility] HEMATOLOGY Lymphocytes 1.0 K/CMM 1.0 - 5.5 06/26 Normal [facility] HEMATOLOGY Monocytes # 0.3 K/CMM 0.0 - 0.8 06/26 Normal [facility] HEMATOLOGY Basophils 0.5 % 0.0 - 1.0 06/26 Normal [facility] HEMATOLOGY Monocytes 7.7 % 2.0 - 12.0 06/26 Normal [facility] HEMATOLOGY Lymphocytes 23.4 % 20.0 - 06/26 Normal 40.0 [facility] HEMATOLOGY Segs-Bands # 2.8 K/CMM 1.5 - 8.1 06/26 Normal [facility] HEMATOLOGY Segs 66.6 % 45.0 - 06/26 Normal 75.0 /2011 [facility] HEMATOLOGY PT 13.7 s 12.0 - 06/26 Normal 14.7 /2011 [facility] HEMATOLOGY INR 1.05 0.85 - 06/26 Normal 9Interpretive 1. Data: [facility] RECOMMENDED RANGES FOR PROTIME INR: 2.0-3.0 for most medical and surgical thromboemboli c states. 2.5-3.5 for artificial heart valves and recurrent embolism.INR SHOULD BE USED ONLY FOR PATIENTS ON STABLE ANTICOAGULANT THERAPY. HEMATOLOGY MPV 10.0 fL 7.4 - 10.4 06/26 Normal [facility] /2011 [facility] HEMATOLOGY MCHC 35.5 g/dL 32.0 - 06/26 Normal 36.0 /2011 [facility] HEMATOLOGY RDW 13.4 % 11.5 - 06/26 Normal 14.5 /2011 [facility] HEMATOLOGY Platelet 127 K/CMM 133 - 450 06/26 LOW MH /2011 [facility] HEMATOLOGY Hct 32.2 % 42.0 - 06/26 LOW 7Result 54.0 /2011 Comment: [facility] Reference range changed due to change in patient's gender at 08:43:59. Normal Low changed from not defined to 42.0. Normal High changed from not defined to 54.0. Result flag changed from not applied to L. HEMATOLOGY Hgb 11.4 g/dL 14.0 - 06/26 LOW 6Result 18.0 Comment: [facility] Reference range changed due to change in patient's gender at 08:43:59. Normal Low changed from not defined to 14.0. Normal High changed from not defined to 18.0. Result flag changed from not applied to L. HEMATOLOGY MCV 97.1 fL 80.0 - 06/26 HI 8Result 94.0 Comment: [facility] Reference range changed due to change in patient's gender at 08:43:59. Normal Low changed from not defined to 80.0. Normal High changed from not defined to 94.0. Result flag changed from not applied to H. HEMATOLOGY MCH 34.5 pg 27.0 - 06/26 HI 31.0 [facility] HEMATOLOGY RBC 3.32 M/CMM 4.70 - 06/26 LOW 5Result 6.10 Comment: [facility] Reference range changed due to change in patient's gender at 08:43:59. Normal Low changed from not defined to 4.70. Normal High changed from not defined to 6.10. Result flag changed from not applied to L. HEMATOLOGY WBC 4.2 K/CMM 3.7 - 10.4 06/26 Normal /2011 [facility] Vital Signs Vital Sign Value Date Comments Source Respitory Rate 19 08/06/2017 [facility] Systolic (mm Hg) 131 08/06/2017 [facility] Diastolic (mm Hg) 62 08/06/2017 [place] Respitory Rate 18 08/06/2017 [place] Systolic (mm Hg) 131 08/06/2017 [place] Diastolic (mm Hg) 62 08/06/2017 [place] Respitory Rate 19 08/06/2017 [place] Systolic (mm Hg) 121 08/06/2017 [place] Diastolic (mm Hg) 64 08/06/2017 [place] Weight 90.909 08/06/2017 [place] BMI Calculated 28.76 08/06/2017 [place] Height 177.8 cm 08/06/2017 [place] Temperature Oral (F) 97.6 F 08/06/2017 [place] Heart Rate 68 08/06/2017 [place] Respitory Rate 20 05/30/2017 [facility] Heart Rate 58 05/30/2017 [facility] Systolic (mm Hg) 132 05/30/2017 [facility] Diastolic (mm Hg) 68 05/30/2017 [facility] Temperature Oral (F) 98.1 F 05/30/2017 [facility] Systolic (mm Hg) 126 05/30/2017 [facility] Diastolic (mm Hg) 60 05/30/2017 [facility] Heart Rate 55 05/30/2017 [facility] Respitory Rate 20 05/30/2017 [facility] Heart Rate 59 05/30/2017 [facility] Systolic (mm Hg) 146 05/30/2017 [facility] Diastolic (mm Hg) 63 05/30/2017 [facility] Respitory Rate 20 05/30/2017 [facility] Temperature Oral (F) 97 F 05/30/2017 [facility] Weight 83.182 05/30/2017 [facility] BMI Calculated 28.72 05/30/2017 [facility] Height 170.18 cm 05/30/2017 [facility] Systolic (mm Hg) 110 12/03/[facility] Height 66 12/03/2016 [facility] Diastolic (mm Hg) 50 12/03/2016 [facility] Systolic (mm Hg) 100 11/15/2016 [facility] Height 66 11/15/2016 [facility] Diastolic (mm Hg) 50 11/15/2016 [facility] Systolic (mm Hg) 120 11/03/2016 [facility] Diastolic (mm Hg) 64 11/03/2016 [facility] Temperature Oral (F) 97.6 F 11/03/2016 [facility] Heart Rate 66 11/03/2016 [facility] Temperature Oral (F) 98.2 F 11/03/2016 [facility] Heart Rate 68 11/03/2016 [facility] Respitory Rate 18 11/03/2016 [facility] Systolic (mm Hg) 101 11/03/2016 [facility] Diastolic (mm Hg) 50 11/03/2016 [facility] Systolic (mm Hg) 121 11/03/2016 [facility] Diastolic (mm Hg) 56 11/03/2016 [facility] Respitory Rate 18 11/03/2016 [facility] Heart Rate 65 11/03/2016 [facility] Temperature Oral (F) 98.2 F 11/03/2016 [...] F 12/30/2015 [facility] Respitory Rate 16 12/30/2015 [facility] Heart Rate 62 12/30/2015 [facility] Systolic (mm Hg) 137 12/30/2015 [facility] Diastolic (mm Hg) 65 12/30/2015 [facility] Weight 82.273 12/30/2015 [facility] Temperature Oral (F) 98.2 F 12/30/2015 [facility] Heart Rate 64 12/30/2015 [facility] Systolic (mm Hg) 130 12/30/2015 [facility] Diastolic (mm Hg) 64 12/30/2015 [facility] Respitory Rate 16 12/30/2015 [facility] BMI Calculated 28.82 12/28/2015 [facility] Weight 83.455 12/28/2015 [facility] Height 170.18 cm 12/28/2015 [facility] BMI Calculated 29.25 12/28/2015 [facility] Height 170.18 cm 12/28/2015 [facility] Weight 84.716 12/28/2015 [facility] Systolic (mm Hg) 104 05/22/2015 [facility] Diastolic (mm Hg) 52 05/22/2015 [facility] Systolic (mm Hg) 109 05/22/2015 [facility] Diastolic (mm Hg) 52 05/22/2015 [facility] Temperature Oral (F) 98.2 F 05/22/2015 [facility] Systolic (mm Hg) 140 05/22/2015 [facility] Diastolic (mm Hg) 66 05/22/2015 [facility] Temperature Oral (F) 98.2 F 05/21/2015 [facility] Temperature Oral (F) 98.0 F 05/21/2015 [facility] Respitory Rate 20 05/20/2015 [facility] Heart Rate 63 05/20/2015 [facility] Respitory Rate 18 05/20/2015 [facility] Heart Rate 63 05/20/2015 [facility] Heart Rate 73 05/20/2015 [facility] Respitory Rate 18 05/20/2015 [facility] BMI Calculated 29.35 05/17/2015 [facility] Height 170.18 cm 05/17/2015 [facility] Weight 85 05/17/2015 [facility] Systolic (mm Hg) 144 05/17/2015 [facility] Diastolic (mm Hg) 62 05/17/2015 [facility] Respitory Rate 18 05/17/2015 [facility] Temperature Oral (F) 97.7 F 05/17/2015 [facility] Heart Rate 71 05/17/2015 [facility] Systolic (mm Hg) 135 05/16/2015 [facility] Diastolic (mm Hg) 60 05/16/2015 [facility] Respitory Rate 18 05/16/2015 [facility] Heart Rate 56 05/16/2015 [facility] Temperature Oral (F) 97.6 F 05/16/2015 [...] 20 06/29/2011 [facility] Heart Rate 76 06/29/2011 [facility] [facility] Oral (F) 96.0 F 06/29/2011 [facility] Diastolic (mm Hg) 81 06/29/2011 [facility] Systolic (mm Hg) 146 06/29/2011 [facility] Respitory Rate 18 06/29/2011 [facility] Systolic (mm Hg) 113 06/29/2011 [facility] Diastolic (mm Hg) 72 06/29/2011 [facility] Temperature Oral (F) 96.7 F 06/29/2011 [facility] Heart Rate 78 06/29/2011 [facility] Diastolic (mm Hg) 70 06/29/2011 [facility] Heart Rate 90 06/29/2011 [facility] Temperature Oral (F) 98.0 F 06/29/2011 [facility] Respitory Rate 20 06/29/2011 [facility] Systolic (mm Hg) 137 06/29/2011 [facility] Weight 94.545 06/26/2011 [facility] Height 170.18 cm 06/26/2011 [facility] Encounters Location Location Encounter Encounter Reason Attending ADM DC Status Source Details Type Number For Provider Date Date Visit Not Sent YOANDY [id number] CHRONIC PING WING 06/28 06/29 Active 0 SYSTOLIC /2011 [facility] 428.22 ANGINA 413.9. [facility] Outpt Diag [id number] [place] 11/13 11/14 [facility] Outpatient Services 0 [facility] Cardiovasc STRESS TEST [id number] 12/17 12/17 Cardiova ular bf-464d-983 /2013 [id number] bb9 Cardiovasc STRESS TEST 8bu30r8p-n6 12/17 12/17 Cardi[facility] ular 17-481b-88e /2013 [facility]44p8w461z [facility] 18d Cardiovasc STRESS TEST 990g9e52-m5 12/17 12/17 [facility] c9-37z2-4sl /2013 [facility]h5gs51846 [facility] c2a Cardiovasc STRESS TEST 7t1no9u9-n0 12/17 12/17 [facility] 1e-441c-b90 /2013 [facility]p68c50s96 [facility] c19 Cardiovasc STRESS TEST 1c62c218-62 12/17 12/17 Cardi[facility] dd-49fb-a4e /2013 [facility] 6-46m503405 [facility] 790 Cardiovasc STRESS TEST 97c2wvgr-2m 12/17 12/17 [facility] ular 57-13g6-su4 /2013 [facility] c-ec54te5yb [facility] eaf Cardiovasc STRESS TEST u82t5ppf-aw 12/17 12/17 [facility] c8-32b7-417 /2013 [facility] e-6rd63s7og [facility] a47 Cardiovasc STRESS TEST 0d1vk9h3-6a 12/17 12/17 [facility] a2-1qf5-b20 /2013 [facility] 9-19187n980 [facility] 8e8 Cardiovasc STRESS TEST fx8x256i-f4 12/17 12/17 [facility] ular f5-40ef-8e3 /2013 [facility] 2-7e4f5u4s1 [facility] 188 Cardiovasc STRESS TEST 00630jmr-75 12/17 12/17 Cardi[facility] ular 33-7q35-saf /2013 [facility] 9-5i34kix27 [facility] 8f0 Cardiovasc Established e781b8c9-55 12/17 12/17 [facility] Patient 3b-6gd8-u74 /2013 [facility]-69r517u32 [facility] 6c1 Cardiovasc Established 1o6380k5-0c 12/17 12/17 Cardiova ular Patient c6-4247-8ae /2013 [facility] b-zcem298aa [facility] 523 Cardiovasc Established d676b199-yk 12/17 12/17 Cardiova ular Patient 4a-9of6-a4u /2013 [facility] c-6928yus23 [facility] c3c Cardiovasc Established 4818g013-02 12/17 12/17 Cardiova ular Patient f1-4817-bfa /2013 [facility] e-5v1j75vy7 [facility] 31e Cardiovasc Established j7dzx258-2t 12/17 12/17 Cardiova ular Patient 2b-5a56-752 /2013 [facility] 1-3601ylq51 [facility] dc5 Cardiovasc Established 9p4bo588-04 12/17 12/17 Cardiova ular Patient 63-84k1-823 /2013 [facility]b8gfw850v [facility] 99c Cardiovasc Established 78kdz5e4-sl 12/17 12/17 Cardiova ular Patient f0-4996-bbc /2013 [facility] a-o5n83i34x [facility] e92 Cardiovasc Established yb94c502-o6 12/17 12/17 [facility] Patient 89-4867-853 /2013 [facility] c-[id number] [facility] acf Cardiovasc Established 8171459d-6b 12/17 12/17 Cardiova ular Patient 20-4590-8a6 /2013 [facility] 5-6726vi3an [facility] 4e4 Cardiovasc Established 628p2i60-c0 12/17 12/17 Cardiova ular Patient 0a-44fd-b7f [facility] a-5b507d693 [facility] 2ca Cardiovasc Established u63p70s6-36 03/19 03/19 Cardi[facility] Patient b5-1o1u-892 [facility]-43q809123 [facility] e95 Cardiovasc Established 5811c38i-hf 03/19 03/19 Cardi[facility] ular Patient c9-49fa-9a [facility] 7-143e59192 [facility] 99e Cardiovasc Established 12k7p825-5u 03/19 03/19 Cardiova ular Patient e1-30q3-c3h [facility]-35v24r8su [facility] 096 Cardiovasc Established 48h5092m-n2 03/19 03/19 Cardi[facility] ular Patient ea-425a-99b /2013 [facility] e-2ks3ikrn8 [facility] 365 Cardiovasc Established 0kvel957-00 03/19 03/19 Cardiova ular Patient 84-8a94-160 /2013 [facility] 2-7d9j9vu9r [facility] 0e7 Cardiovasc Established 3f8g63zb-66 03/19 03/19 Cardiova ular Patient b8-4644-860 /2013 [facility] e-p2m546529 [facility] 1d9 Cardiovasc Established ci5034g4-4h 03/19 03/19 Cardiova ular Patient a6-46cc-8a6 /2013 [facility] c[facility]iihb4r7wv [facility] 33a Cardiovasc Established 6e21o58m-4v 03/19 03/19 Cardiova ular Patient 3e-5n16-87u /2013 [facility] 7-5873bfecc [facility] 94f Cardiovasc Established 41h2b7o6-yo 03/19 03/19 Cardiova ular Patient 80-2bo1-e6l /2013 [facility] 7-y9zv07579 [facility] c27 Cardiovasc Established ej19q949-g6 03/19 03/19 Cardiova ular Patient 2a-4897-a60 /2013 [facility] e-3376z681d [facility] a8b Cardiovasc Established j3641a93-56 06/25 06/25 Cardiova ular Patient 27-4g07-90l /2014 [facility] 0-[id number] [facility] [place] Cardiovasc Established 7a1bb36b-l5 06/25 06/25 Cardiova ular Patient 2b-495e-9b9 /2014 [facility] 3[facility]47h75svcs [facility] a45 Cardiovasc Established s9kl7vk9-b5 06/25 06/25 Cardiova ular Patient 3f-2d22-90m /2014 [facility] 4-7sx1k8r21 [facility] e6e Cardiovasc Established 787dw155-00 06/25 06/25 Cardiova ular Patient b4-4161-977 /2014 [facility] 1-646637727 [facility] 5fc Cardiovasc Established c3j86gy1-ty 06/25 06/25 Cardiova ular Patient 38-0s1d-l0l /2014 [facility] c-3ge0j3n1w [facility] 92b Cardiovasc Established 405mlt42-32 06/25 06/25 Cardiova ular Patient 87-0r62-q36 /2014 [facility] e[facility]e0365g53o [facility] bf1 Cardiovasc Established e930h97e-hk 06/25 06/25 Cardiova ular Patient 27-4g8e-877 /2014 [facility] 1-x8o5x5950 [facility] 1fb Cardiovasc [place] v6m4955o-64 08/06 08/06 Cardiova ular refill f7-4965-882 /2014 [facility] f[facility]o475y3ofv [facility] 2ae Cardiovasc [place] 048qr032-l1 08/06 08/06 Cardiova ular refill 81-67g8-g77 /2014 [facility] 9-crb206055 [facility] a59 Cardiovasc [place] 4699haw3-1p 08/06 08/06 Cardiova ular refill 09-400c-874 /2014 [facility] 2-419kvq0r2 [facility] 751 Cardiovasc [place] de18k1m4-9i 08/06 08/06 Cardiova ular refill 28-4o3h-8yg /2014 [facility] d-1xqj9na08 [facility] 3d8 Cardiovasc [place] a74m5f10-5t 08/06 08/06 Cardiova ular refill 97-463c-8f0 /2014 [facility] a-3s6710352 [facility] 472 Cardiovasc [place] 8p08g296-33 08/06 08/06 Cardiova ular refill f7-71e5-674 /2014 [facility] f-1a403g522 [facility] 2ee Cardiovasc Unknown h0glgt90-q9 08/18 08/18 Cardiova ular 87-4089-b16 /2014 [facility] 9-b0bw9l541 [facility] a62 Cardiovasc Unknown [id number] 08/18 08/18 Cardiova ular b0-7zq2-1nz /2014 [facility] 1-2n478t0tw [facility] d59 Cardiovasc Unknown 26p05l2y-2z 08/18 08/18 Cardiova ular 53-4bcf-b56 /2014 [facility] b[facility][id number] [facility] 242 Cardiovasc Unknown [id number]-kk 08/18 08/18 Cardiova ular 60-42ba-9e5 [facility] b-98s0wa2w5 [facility] a07 Cardiovasc Unknown [id number] 08/18 08/18 Cardiova ular 1c-4p26-j6d /2014 [facility] f-bsbfo83o0 [facility] lucas Cardiovasc Unknown [id number] 08/18 08/18 Cardiova ular c3-4109-a23 /2014 [facility] e-57520you0 [facility] 85e Cardiovasc chest pain. 4o3bdn69-r5 10/07 10/07 Cardiova ular 10/06 9c-87e6-14o /2014 [facility] d-61865qk15 [facility] 40e Cardiovasc chest pain. 7477d653-1y 10/07 10/07 Cardiova ular 10/06 7e-4aee-8d3 /2014 [facility] 7-9s1b6b512 [facility] 12d Cardiovasc chest pain. hos85vnn-6h 10/07 10/07 Cardiova ular 10/06 0b-4419-829 /2014 [facility] a-t7e9h0mrl [facility] cc8 Cardiovasc chest pain. 740njkd3-6o 10/07 10/07 Cardiova ular 10/06 a2-67l7-a5y /2014 [facility] 4-f3e4v0466 [facility] e95 Cardiovasc chest pain. t819ms2w-50 10/07 10/07 Cardiova ular 10/06 77-2l3b-55f /2014 [facility] 5-42643j8jz [facility] 512 Cardiovasc chest pain. g1p5d6g4-91 10/07 10/07 Cardiova ular 10/06 33-4083-959 /2014 [facility] a-r8p9hf5wk [facility] d6e Cardiovasc Established 957703l5-59 01/18 01/18 Cardiova ular Patient 88-4305-97e /2014 [facility] a[facility]npuf88uvd [facility] 57a Cardiovasc Established 7m7p6b8g-x3 01/18 01/18 Cardiova ular Patient 41-20x2-y68 /2014 [facility] b-kh42b38h8 [facility] e4e Cardiovasc Established 7481o555-54 01/18 01/18 Cardiova ular Patient c3-6gy5-d0g /2014 [facility] 9-1y0628640 [facility] 09c Cardiovasc Established 5en07269-52 01/18 01/18 Cardiova ular Patient c0-4dde-bcf /2014 [facility] a-8s8c2m245 [facility] ea8 Cardiovasc Established 158jp025-n6 01/18 01/18 Cardiova ular Patient b6-41ae-98a /2014 [facility] 3-07q0xiy27 [facility] 338 Cardiovasc Established b0ym1707-f4 01/18 01/18 Cardiova ular Patient 6c-470f-80b /2014 [facility] 8-7az97iz64 [facility] b26 Cardiovasc possible 3131nb6x-57 05/11 05/11 Cardiova ular heart fb-4182-830 /2014 [facility] attack 3-33u357o86 [facility] 4a0 Cardiovasc possible 88882n87-68 05/11 05/11 Cardiova ular heart b7-9pd1-t67 /2014 [facility] attack [id number] [facility] 24b Cardiovasc possible 10888fd1-95 05/11 05/11 Cardiova ular heart 37-4717-94b /2014 [facility] attack 0-4vl27d904 [facility] 39d Cardiovasc possible b62a100k-fq 05/11 05/11 Cardiova ular heart 33-42af-a79 /2014 [facility] attack c-725mg9l3y [facility] ad0 Cardiovasc possible 70a95001-ka 05/11 05/11 Cardiova ular heart fb-479c-ac9 /2014 [facility] attack e-d6323qf53 [facility] af7 Cardiovasc possible 34b93952-q3 05/11 05/11 Cardiova ular heart 87-4156-9e6 /2014 [facility] attack 8-4566wl307 [facility] 6cc Cardiovasc Established w2019xo4-1b 05/12 05/12 Cardiova ular Patient 18-4fda-9fe /2014 [facility] 2-15749g517 [facility] 97a Cardiovasc Established 57vec4lp-98 05/12 05/12 Cardiova ular Patient a5-2xw5-22l /2014 [facility] 6-4lvqe64w8 [facility] 5a7 Cardiovasc Established i09v7287-o8 05/12 05/12 Cardiova ular Patient a3-451e-8cd /2014 [facility] 3-119q807tz [facility] 0da Cardiovasc Established yrz34w9a-9d 05/12 05/12 Cardiova ular Patient d2-4e56-n6x /2014 [facility] 8-7ufiq343n [facility] 3a7 Cardiovasc Established 9a806u8y-hs 05/12 05/12 Cardiova ular Patient 1f-2g8l-ga7 /2014 [facility] 0-9h3n81869 [facility] 1ea Cardiovasc Established qv162k11-f3 05/12 05/12 Cardiova ular Patient a0-4ebb-9b8 /2014 [facility] d-[id number] [facility] a0a [facility] [id number] Mitchell Bautista 05/12 05/17 Harley 1 /2014 [facility] Inpatient [id number] Armjohanna 05/17 05/22 [facility] 1 Atashband /2014 [facility] Cardiovasc Pt in 68fo1288-ez 05/18 05/18 Cardiova ular [facility] 9f-4rq5-91m /2014 [facility] 05/18 2-2e3590e6r [facility] e58 Cardiovasc Pt in 9e73nu1d-09 05/18 05/18 Cardiova ular [facility] 8e-432a-864 /2014 [facility] 05/18 d-[id number] [facility] d79 Cardiovasc Pt in 625k93m1-92 05/18 05/18 Cardiova ular [facility] b3-7n84-7l3 /2014 [facility] 05/18 1-626q3037n [facility] 87e Cardiovasc Pt in 96g21l53-03 05/18 05/18 Cardiova ular [facility] d0-4770-ac3 /2014 [facility] 05/18 c-k0n3y5qsb [facility] e6c Cardiovasc [place] dc48b6v2-5y 10/18 10/18 Cardiova ular [facility] 28-2lz2-20b /2015 [facility] 4-9f6nu3197 [facility] 9b9 Cardiovasc [place] fo262xt4-ce 10/18 10/18 Cardiova ular [facility] fe-3yt1-8rf /2015 [facility] 3-s3n9uu4i5 [facility] 6b3 Cardiovasc [place] 70c755z0-03 10/18 10/18 Cardiova ular [facility] f9-3n96-e9f /2015 [facility] a-v7741iil7 [facility] b98 Cardiovasc chest pain 3106251v-57 12/27 12/27 Cardiova ular 2a-3g6e-a93 /2015 [facility] c-5n46f94wb [facility] 5ea Cardiovasc chest pain 058a4p6i-66 12/27 12/27 Cardiova ular c9-5h75-804 /2015 [facility] 4-0a1f5y1y6 [facility] 536 [facility] [id number] Akiny[place]a 12/27 12/29 Harley 2 Ajelabi /2015 [facility] Cardiovasc Established 2718sk71-4g 04/10 04/10 Cardiova ular Patient 5d-4bbd-87d /2015 [facility] e-3598e60m8 [facility] bbf [facility] [id number] Janeth 11/02 11/03 Harley 7 [place] /2016 [facility] [id number] Shahzad 05/30 05/30 Harley 3 Lee /2016 [facility] Emergency [id number] Vanda 08/06 08/06 [facility] Harley 4 Romero /2017 [facility] Procedures Procedure Code Date Perfomer Comments Source CABG x 2 - [id number] [facility] Coronary artery [facility] bypass grafts x 2 Excision of [id number] [facility] CABG x 2 - [id number] [facility] Coronary artery bypass grafts x 2 Excision of [id number] [facility] gallbladder Angioplasty [id number] [facility] Angioplasty [id number] [facility] CABG x 2 - [id number] The Coronary artery [place] bypass grafts x 2 Excision of [id number] [facility]
--- OUTSIDE RECORDS SUMMARY | 2018-07-05 18:13 | XMS REPORT | CCD ---
:1935 Author Organization [facility] Care Team Providers Name Role Phone Jessica [...] PO, Drug 06/28/2011 06/29/2011 Discontinued Form: TAB, [id number], Start date: 06/28/11 6:00:00, Duration: 4 doses [...] based on the clinical recommendations of the [employer].HEMATOLOGY Most recent to oldest [Reference [...]
--- OUTSIDE RECORDS SUMMARY | 2018-07-05 18:14 | XMS REPORT ---
:1935 Author Organization [employer] Care Team Providers Name Role Phone PHYLLIS [facility] Provider Role Unavailable Allergies, Adverse Reactions, Alerts Substance Reaction Event Type N.K.D.A. 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 Assessment 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 Problem Presence of automatic (implantable) Z95.810 Active cardiac defibrillator Medications Medication Code Code Instructions Start End Status Dosage System Date Date losartan [facility] 63229135359 50 mg orally Active 1 tab(s) once a day clopidogrel [facility] 88145947603 75 mg orally Active 1 tab(s) once a day nitroglycerin [facility] 69431890474 0.4 mg Active 1 tab(s) sublingually every 5 minutes baclofen [facility] 90488321413 10 mg orally Active 1 tab(s) bid glimepiride [facility] 84471059473 1 mg orally Active 1 tab(s) once aday spironolactone [facility] 26748974907 25 mg orally Active 1 tab(s) bid furosemide [facility] 58612769943 40 mg orally Active 1 tab(s) once a day Glumetza [facility] 77980776891 500 mg orally Active 1 tab(s) bid carvedilol [facility] 60790477403 6.25 orally 2 Active 1 tab(s) times a day Ranexa [facility] 80183961571 1000 mg orally Active 1 tab(s) 2 times a day omeprazole [facility] 67429680220 20 mg orally Active 1 cap(s) once a day Prilosec [facility] 06990469296 20 mg orally Active 1 cap(s) once a day Synthroid [facility] 32150907099 200 mcg (0.2 Active 1 tab(s) mg) orally once a day hydralazine [facility] 79638897001 25 mg orally 4 Active 1 tab(s) times a day Lasix [facility] 12658446189 40 mg orally Ricarda Active 1 tab(s) once a day 2016 ASA [facility] 11542235182 81mg once a Active 1 tab(s) day tamsulosin [facility] 82733092508 0.4 mg orally Active 1 cap(s) once a day isosorbide [facility] 56329287636 30 mg orally Active 1 tab(s) dinitrate every 8 hrs Vital Signs Date/Time: September 25, 2016 Blood Pressure Systolic 122 mm Hg BMI 30.02 Index Height 66 in Blood Pressure Diastolic 50 mm Hg Results No Known Results Summary Purpose eClinicalWorks Submission
--- OUTSIDE RECORDS SUMMARY | 2018-07-05 18:14 | XMS REPORT ---
:1935 Author Organization [employer] Care Team Providers Name Role Phone PHYLLIS [facility] Provider Role Unavailable Allergies, Adverse Reactions, Alerts Substance Reaction Event Type N.K.D.A. 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 Problem Presence of automatic (implantable) Z95.810 Active cardiac defibrillator Problem Presence of coronary angioplasty Z95.5 Active implant and graft Problem Hyperlipidemia, unspecified E78.5 Active Problem Hypothyroidism, unspecified E03.9 Active Problem 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 Problem 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 Assessment 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 Assessment Hyperlipidemia, unspecified E78.5 Active Assessment 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 Medications Medication Code System Code Instructions Start Date End Date Status Dosage spironolactone NDC 74750 25 mg orally bid Active 1 tab(s) Glumetza NDC 03085 500 mg orally bid Active 1 tab(s) clopidogrel NDC 03378 75 mg orally once Active 1 tab(s) a day Synthroid NDC 2205 200 mcg (0.2 mg) Active 1 tab(s) orally once a day carvedilol NDC 65347 3.125 mg orally 2 Active 2 tab(s) times a day glimepiride NDC 15221 1 mg orally bid Active 1 tab(s) atorvastatin NDC 47819 10 mg orally once Active 1 tab(s) a day (at bedtime) tamsulosin NDC 72286 0.4 mg orally Active 1 cap(s) once a day furosemide NDC 91089 40 mg orally once Active 1 tab(s) a day ASA NDC 0 81mg once a day Active 1 tab(s) Prilosec NDC 363 20 mg orally once Active 1 cap(s) a day Ranexa NDC 82642 1000 mg orally 2 Active 1 tab(s) times a day nitroglycerin NDC 00833 0.4 mg Active 1 tab(s) sublingually every 5 minutes losartan NDC 45792 50 mg orally once Active 1 tab(s) a day Vital Signs Date/Time: Jun 19, 2016 Blood Pressure Systolic 110 mm Hg BMI 30.66 Index Height 66 in Blood Pressure Diastolic 50 mm Hg Results No Known Results Summary Purpose eClinicalWorks Submission
--- OUTSIDE RECORDS SUMMARY | 2018-07-05 18:14 | XMS REPORT ---
:1935 Author Organization [employer]ClinicalWorks Care Team Providers Name Role Phone PHYLLIS [facility]ITT[facility] Provider Role Unavailable Allergies, Adverse Reactions, Alerts Substance Reaction Event Type N.K.D.A. 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 Assessment 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 Problem Presence of automatic (implantable) Z95.810 Active cardiac defibrillator Medications Medication Code Code Instructions Start End Status Dosage System Date Date nitroglycerin [facility] 30999216212 0.4 mg Active 1 tab(s) sublingually every 5 minutes baclofen [facility] 70636853410 10 mg orally Active 1 tab(s) bid tamsulosin [facility] 33035920752 0.4 mg orally Active 1 cap(s) once a day ASA [facility] 70757250022 81mg once a Active 1 tab(s) day losartan [facility] 98407868542 50 mg orally Active 1 tab(s) once a day spironolactone [facility] 02583174536 25 mg orally Active 1 tab(s) bid Prilosec [facility] 40113427522 20 mg orally Active 1 cap(s) once a day glimepiride [facility] 12011308835 1 mg orally bid Active 1 tab(s) clopidogrel [facility] 31647308677 75 mg orally Active 1 tab(s) once a day furosemide ND 90978485247 40 mg orally Active 1 tab(s) once a day carvedilol [facility] 67124071321 6.25 orally 2 Active 1 tab(s) times a day Glumetza [facility] 20622568172 500 mg orally Active 1 tab(s) bid isosorbide [facility] 00330353093 30 mg orally Active 1 tab(s) dinitrate every 8 hrs Synthroid [facility] 05960052608 200 mcg (0.2 Active 1 tab(s) mg) orally once a day hydralazine [facility] 26442398197 25 mg orally 4 Active 1 tab(s) times a day Ranexa [facility] 35796374165 1000 mg orally Active 1 tab(s) 2 times a day omeprazole [facility] 62307124005 20 mg orally Active 1 cap(s) once a day Vital Signs Date/Time: September 03, 2016 Blood Pressure Systolic 136 mm Hg BMI 29.53 Index Height 66 in Blood Pressure Diastolic 60 mm Hg Results No Known Results Summary Purpose eClinicalWorks Submission
--- OUTSIDE RECORDS SUMMARY | 2018-07-05 18:14 | XMS REPORT ---
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
--- OUTSIDE RECORDS SUMMARY | 2018-07-05 18:14 | XMS REPORT ---
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
--- OUTSIDE RECORDS SUMMARY | 2018-07-05 18:14 | XMS REPORT ---
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
--- OUTSIDE RECORDS SUMMARY | 2018-07-05 18:14 | XMS REPORT ---
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
--- OUTSIDE RECORDS SUMMARY | 2018-07-05 18:14 | XMS REPORT ---
:1935 Author Organization [employer] 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 Submission
--- OUTSIDE RECORDS SUMMARY | 2018-07-05 18:14 | XMS REPORT ---
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
--- OUTSIDE RECORDS SUMMARY | 2018-07-05 18:15 | XMS REPORT ---
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
--- OUTSIDE RECORDS SUMMARY | 2018-07-05 18:15 | XMS REPORT ---
:1935 Author Organization eClinicalWorks Care Team Providers Name Role Phone PHYLLIS WHITTINGTON Provider Role Unavailable Allergies, Adverse Reactions, Alerts Substance Reaction Event Type N.K.D.A. 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 Assessment 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 Assessment Paroxysmal atrial fibrillation I48.0 Active Assessment Presence of automatic (implantable) Z95.810 Active cardiac defibrillator Problem Presence of automatic (implantable) Z95.810 Active cardiac defibrillator Medications Medication Code Code Instructions Start End Status Dosage System Date Date Toprol XL [facility] 12587278308 25 mg orally Active 1 tab(s) bid Lasix [facility] 82879499785 40 mg orally September Active 1 tab(s) once a day 2016 spironolactone [facility] 10247231980 25 mg orally Active 1 tab(s) once a day apixaban [facility] 58295735936 2.5 mg orally 2 Active 1 tab(s) times a day tamsulosin [facility] 59265185573 0.4 mg orally Active 1 cap(s) once a day nitroglycerin [facility] 41734770979 0.4 mg Active 1 tab(s) sublingually every 5 minutes ASA [facility] 94429500810 81mg once a Active 1 tab(s) day clopidogrel [facility] 28543483655 75 mg orally Active 1 tab(s) once a day Prilosec [facility] 06652759081 20 mg orally Active 1 cap(s) once a day Synthroid [facility] 15011590261 200 mcg (0.2 Active 1 tab(s) mg) orally once a day glimepiride [facility] 47465691678 1 mg orally Active 1 tab(s) once aday losartan [facility] 69130659510 50 mg orally Active 1 tab(s) once a day Lipitor [facility] 77170921016 10 mg orally Active 1 tab(s) once a day Ranexa [facility] 77184941303 1000 mg orally Active 1 tab(s) 2 times a day Atorvastatin ND 21864228504 20 mg orally November 15, Active 1 tab(s) Calcium once a day 2016 Vital Signs Date/Time: November 15, 2016 Blood Pressure Systolic 100 mm Hg BMI 30.02 Index Height 66 in Blood Pressure Diastolic 50 mm Hg Results No Known Results Summary Purpose eClinicalWorks Submission
--- OUTSIDE RECORDS SUMMARY | 2018-07-05 18:15 | XMS REPORT ---
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
--- OUTSIDE RECORDS SUMMARY | 2018-07-05 18:15 | XMS REPORT ---
:1935 Author Organization eClinicalWorks Care Team Providers Name Role Phone WHITTINGTONCYNY Provider Role Unavailable Allergies, Adverse Reactions, Alerts Substance Reaction Event Type N.K.D.A. Info Not Available Non Drug Allergy Encounters Encounter Location Date Established Patient [facility], [facility] December 17, 2013 STRESS TEST [facility], [facility] December 17, 2013 Established Patient [facility], [facility] Mar 19, 2014 Problems Problem Type Condition ICD-9 Code Onset Dates Condition Status Assessment 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 Active [place] vessel Problem Diabetes mellitus type II 250.00 Active Problem Hypertension Heart Disease - w/o 402.10 Active CHF* Problem 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 Problem Chronic systolic heart failure 428.22 Active Problem S/P Automatic Defibrillator V45.02 Active Problem 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 Active [place] vessel Problem 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 Problem Hypercholesterolemia NOS 272.4 Active Problem Hypothyroidism (acquired) 244.9 Active Assessment S/P Automatic Defibrillator V45.02 Active Assessment Chronic systolic heart failure 428.22 Active Assessment 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 Medications Medication Code System Code Instructions Start End Date Status Dosage Date Humalog [facility] 6127 100 units/mL Active 12 units subcutaneously before meals spironolactone [facility]ULT[facility] 05020 25 mg orally 3 Active 1 tab(s) times a day Lantus [facility] 24393 100 units/mL Active 34 units at subcutaneously bedtime omeprazole [facility] 06245 20 mg orally once Active 1 tab(s) a day levothyroxine [facility] 16436 112 mcg orally Active 2 caps once a day Crestor [facility] 53183 10 mg orally once Jan 27, Active 1 tab(s) a day (at bedtime) 2012 Lyrica MULT[facility] 71201 50 mg orally 2 Active 1 cap(s) times a day ASA Unknown 0 81mg once a day Active 1 tab(s) furosemide MULT[facility] 10447 20 mg orally tid Active 3 tsa tamsulosin MULTUM 00216 0.4 mg orally bid Active 1 cap(s) nitroglycerin MULT[facility] 58334 0.4 mg November 26 1 tab(s) sublingually every 2013 5 minutes losartan [facility] 42950 50 mg orally once Active 1 tab(s) a day Ranexa MULTUM 75698 1000 mg orally 2 Active 1 tab(s) times a day gemfibrozil [facility]ULT[facility] 73050 600 mg orally 2 Active 1 tab(s) [...]
--- OUTSIDE RECORDS SUMMARY | 2018-07-05 18:15 | XMS REPORT ---
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 Assessment Paroxysmal atrial fibrillation I48.0 Active Assessment Presence of automatic (implantable) Z95.810 Active cardiac defibrillator Assessment Non-ST elevation (NSTEMI) I21.4 Active myocardial infarction Assessment Presence of coronary angioplasty Z95.5 Active implant and graft Problem Presence of automatic (implantable) Z95.810 Active cardiac defibrillator Medications Medication Code Code Instructions Start End Status Dosage System Date Date clopidogrel [facility] 92517873059 75 mg orally Active 1 tab(s) once a day furosemide [facility] 41673920832 40 mg orally Active 1 tab(s) bid Synthroid [facility] 58153735845 200 mcg (0.2 Active 1 tab(s) mg) orally once a day nitroglycerin [facility] 25548547185 0.4 mg Active 1 tab(s) sublingually every 5 minutes spironolactone [facility] 64155622152 25 mg orally Active 1 tab(s) once a day ivabradine [facility] 50656121508 5 mg orally 2 Active 1 tab(s) times a day (with meals) omeprazole [facility] 83792048387 20 mg orally Active 1 cap(s) once a day Toprol XL [facility] 10972569561 12.5 mg orally Active 1/2ab(s) once a day Ranexa [facility] 76361635716 1000 mg orally Active 1 tab(s) 2 times a day glimepiride [facility] 40310779912 1 mg orally bid Active 1 tab(s) isosorbide [facility] 51040683024 10 mg orally 2 Active 1 tab(s) dinitrate times a day tamsulosin [facility] 06591431288 0.4 mg orally Active 1 cap(s) once a day ASA ND 68226188804 81mg once a Active 1 tab(s) day Atorvastatin ND 06577670011 40 mg orally November 15, Active 1 tab(s) Calcium once a day 2016 Vital Signs Date/Time: December 03, 2016 Blood Pressure Systolic 110 mm Hg BMI 29.86 Index Height 66 in Blood Pressure Diastolic 50 mm Hg Results No Known Results Summary Purpose eClinicalWorks Submission
--- OUTSIDE RECORDS SUMMARY | 2018-07-05 18:15 | XMS REPORT ---
:1935 Author Organization eClinicalWorks Care Team Providers Name Role Phone PHYLLIS WHITTINGTON Provider Role Unavailable Encounters Encounter Location Date Established Patient [facility], [facility] December 17, 2013 STRESS TEST [facility], [facility] December 17, 2013 Established Patient [facility], 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 Problem Hypercholesterolemia NOS 272.4 Active Problem Hypothyroidism (acquired) 244.9 Active Medications Medication Code System Code Instructions Start End Date Status Dosage Date Humalog [facility] 6127 100 units/mL Active 12 units subcutaneously before meals levothyroxine [facility] 56002 200 mcg orally Active 1 cap(s) once a day Ranexa MULTUM 19166 1000 mg orally 2 Active 1 tab(s) times a day nitroglycerin M[facility] 87036 0.4 mg/hr Active 1 PATCH transdermally prn nitroglycerin [facility] 97038 0.4 mg November 26, Active 1 tab(s) sublingually every 2013 5 minutes losartan [facility] 50425 50 mg orally once Active 1 tab(s) a day omeprazole [facility] 48406 20 mg orally once Active 1 tab(s) a day Crestor [facility] 85554 10 mg orally once Jan 27, Active 1 tab(s) a day (at bedtime) 2012 ASA Unknown 0 81mg once a day Active 1 tab(s) tamsulosin [facility] 71528 0.4 mg orally once Active 1 cap(s) a day Coreg [facility] 87664 12.5 mg orally 2 Active 1/2 tab times a day spironolactone [facility] 29307 25 mg orally 3 Active 1 tab(s) times a day Lantus [facility] 29091 100 units/mL Active 34 units at subcutaneously bedtime gemfibrozil [facility] 73433 600 mg orally 2 Active 1 tab(s) times a day furosemide [facility] 22035 20 mg orally once Active 2 tabs a day Social History Social History Element Qualifiers Date Reported Caffeine: yes. 2 cups of coffee a day Mar 19, 2014 Tobacco Use: . Status: Former Smoker quit 22 yrs ago Mar 19, 2014 Alcohol: no. Mar 19, 2014 Summary Purpose eClinicalWorks Submission
--- OUTSIDE RECORDS SUMMARY | 2018-07-05 18:15 | XMS REPORT ---
[...] Results No Known Results Summary Purpose [employer] Submission
--- OUTSIDE RECORDS SUMMARY | 2018-07-05 18:15 | XMS REPORT ---
:1935 Author Organization eClinicalWorks Care Team Providers Name Role Phone CYN WHITTINGTONY Provider Role Unavailable Allergies, Adverse Reactions, Alerts Substance Reaction Event Type N.K.D.A. 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 Problem Chronic systolic heart failure 428.22 Active Problem S/P Automatic Defibrillator V45.02 Active Problem 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 Active [place] vessel Problem 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 Problem Hypercholesterolemia NOS 272.4 Active Problem Hypothyroidism (acquired) 244.9 Active Assessment Hypertension Heart Disease - w/o 402.10 Active CHF* Assessment S/P Automatic Defibrillator V45.02 Active Assessment Chronic systolic heart failure 428.22 Active Assessment 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 Medications Medication Code System Code Instructions Start End Date Status Dosage Date levothyroxine [facility] 29522 200 mcg orally Active 1 cap(s) once a day nitroglycerin [facility] 10002 0.4 mg November 26, Active 1 tab(s) sublingually every 2013 5 minutes gemfibrozil [facility] 89610 600 mg orally 2 Active 1 tab(s) times a day omeprazole [facility] 07248 20 mg orally once Active 1 tab(s) a day losartan [facility] 23563 50 mg orally once Active 1 tab(s) a day Crestor [facility] 66233 10 mg orally once Jan 27, Active 1 tab(s) a day (at bedtime) 2012 spironolactone [facility] 88513 25 mg orally 3 Active 1 tab(s) times a day tamsulosin [facility] 26074 0.4 mg orally bid Active 1 cap(s) ASA Unknown 0 81mg once a day Active 1 tab(s) Lantus [facility]ULTUM 09740 100 units/mL Active 34 units at subcutaneously bedtime furosemide [facility]ULT[facility] 53188 20 mg orally once Active 3 tsa a day Ranexa MULTUM 20647 1000 mg orally 2 Active 1 tab(s) [...]
--- OUTSIDE RECORDS SUMMARY | 2018-07-05 18:15 | XMS REPORT ---
:1935 Author Organization eClinicalWorks Care Team Providers Name Role Phone WHITTINGTON PHYLLIS Provider Role Unavailable Allergies, Adverse Reactions, Alerts Substance Reaction Event Type N.K.D.A. Info Not Available Non Drug Allergy Encounters Encounter Location Date Established Patient [facility], [facility] Jun 25, 2014 Established Patient [facility], [facility] December 17, 2013 STRESS TEST [facility], [facility] December 17, 2013 Established Patient [facility], 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 Problem Hypercholesterolemia NOS 272.4 Active Problem Hypothyroidism (acquired) 244.9 Active Assessment S/P Automatic Defibrillator V45.02 Active Assessment Chronic systolic heart failure 428.22 Active Assessment 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 Medications Medication Code System Code Instructions Start End Date Status Dosage Date losartan [facility] 93927 50 mg orally once Active 1 tab(s) a day nitroglycerin [facility] 17980 0.4 mg November 26, Active 1 tab(s) sublingually every 2013 5 minutes Lantus [facility] 01791 100 units/mL Active 34 units at subcutaneously bedtime Crestor [facility] 71636 10 mg orally once Jan 27, Active 1 tab(s) a day (at bedtime) 2012 levothyroxine [facility] 86870 112 mcg orally Active 2 caps once a day spironolactone [facility] 05357 25 mg orally 3 Active 1 tab(s) times a day carvedilol [facility] 34032 12.5 mg orally 2 Active 1 tab(s) times a day tamsulosin [facility] 24300 0.4 mg orally bid Active 1 cap(s) gemfibrozil [facility] 07537 600 mg orally 2 Active 1 tab(s) times a day ASA Unknown 0 81mg once a day Active 1 tab(s) omeprazole [facility]ULT[facility] 23113 20 mg orally once Active 1 tab(s) a day furosemide [facility]ULT[facility] 73309 40 mg orally once Jun 26, Active 1 tab(s) a day 2014 Ranexa MULTUM 76608 1000 mg orally 2 Active 1 tab(s) [...]
--- OUTSIDE RECORDS SUMMARY | 2018-07-05 18:16 | XMS REPORT ---
:1935 Author Organization eClinicalWorks Care Team Providers Name Role Phone YONAS AGUIRRE Provider Role Unavailable Allergies, Adverse Reactions, Alerts Substance Reaction Event Type N.K.D.A. Info Not Available Non Drug Allergy Encounters Encounter Location Date Established Patient [facility], [facility] Jun 25, 2014 [place] refill [facility], [facility] Aug 06, 2014 Unknown [facility], [facility] August 18, 2014 chest pain. 10/06 [facility], [facility] October 07, 2014 Established Patient [facility], [facility] December 17, 2013 STRESS TEST [facility], [facility] December 17, 2013 Established Patient [facility], [facility] Mar 19, 2014 Established Patient [facility], [facility] May 12, 2015 Established Patient [facility], [facility] Jan 18, 2015 possible heart attack [facility], [facility] May 11, 2015 Problems Problem [...] Assessment 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 Problem 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 Problem Hyperlipidemia, unspecified E78.5 Active Medications Medication Code System Code Instructions Start End Date Status Dosage Date nitroglycerin MULTUM 64455 0.4 mg November 26, Active 1 tab(s) sublingually every 2013 5 minutes omeprazole [facility] 89329 20 mg orally once Active 1 tab(s) a day tamsulosin [facility] 51780 0.4 mg orally bid Active 1 cap(s) spironolactone [facility] 44242 25 mg orally 3 Active 1 tab(s) times a day levothyroxine [facility] 29230 112 mcg orally Active 2 caps once a day carvedilol [facility] 94957 12.5 mg orally 2 Active 1 tab(s) times a day furosemide [facility] 98585 40 mg orally once Jun 26, Active 1 tab(s) a day 2014 Crestor [facility] 85585 10 mg orally once Jan 27, Active 1 tab(s) a day (at bedtime) 2012 Ranexa MULTUM 00866 1000 mg orally 2 Active 1 tab(s) times a day gemfibrozil [facility] 41714 600 mg orally 2 Active 1 tab(s) times a day losartan [facility] 31298 50 mg orally once Active 1 tab(s) a day Lantus MULT[facility] 35205 100 units/mL Active 34 units at subcutaneously [...]
--- OUTSIDE RECORDS SUMMARY | 2018-07-05 18:16 | XMS REPORT ---
:1935 Author Organization eClinicalWorks Care Team Providers Name Role Phone PHYLLIS WHITTINGTON Provider Role Unavailable Encounters Encounter Location Date Established Patient [facility], [facility] Jun 25, 2014 [place] refill [facility], [facility] Aug 06, 2014 Unknown [facility], [facility] August 18, 2014 chest pain. 10/06 [facility], [facility] October 07, 2014 Established Patient [facility], [facility] December 17, 2013 STRESS TEST [facility], [facility] December 17, 2013 Established Patient [facility], [facility] Mar 19, 2014 Established Patient [facility], [facility] May 12, 2015 Established Patient [facility], [facility] Jan 18, 2015 possible heart attack [facility], [facility] May 11, 2015 chest pain [facility], [facility] December 28, 2015 Pt in [facility] 05/18 [facility], [facility] May 18, 2015 [place] Change-[facility], [facility] October 19, 2015 Problems Problem Type Condition ICD-9 Code Onset Dates Condition Status Problem Presence 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 Problem 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
--- OUTSIDE RECORDS SUMMARY | 2018-07-05 18:16 | XMS REPORT ---
:1935 Author Organization eClinicalWorks Care Team Providers Name Role Phone CYN WHITTINGTONY Provider Role Unavailable Encounters Encounter Location Date Established Patient [facility], [facility] Jun 25, 2014 [place] refill [facility], [facility] Aug 06, 2014 Unknown [facility], [facility] August 18, 2014 chest pain. 10/06 [facility], [facility] October 07, 2014 Established Patient [facility], [facility] December 17, 2013 Pt in [facility] 05/18 [facility], [facility] May 18, 2015 STRESS TEST [facility], [facility] December 17, 2013 [place] Change-[facility], [facility] October 19, 2015 Established Patient [facility], [facility] Mar 19, 2014 Established Patient [facility], [facility] May 12, 2015 Established Patient [facility], [facility] Jan 18, 2015 possible heart attack [facility], [facility] May 11, 2015 Problems Problem Type Condition ICD-9 Code Onset Dates Condition Status Problem Presence 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 Problem 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
--- OUTSIDE RECORDS SUMMARY | 2018-07-05 18:16 | XMS REPORT ---
[...] Association, [facility] December 17, 2013 Pt in [facility] 05/18 Cardiovascular Association, [facility] May 18, 2015 STRESS TEST Cardiovascular Association, [facility] [...] Problem 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 [place] coronary artery with other forms of angina [...]
--- OUTSIDE RECORDS SUMMARY | 2018-07-05 18:16 | XMS REPORT ---
:1935 Author Organization [employer] Care Team Providers Name Role Hugh [place]LLIS Provider Role Unavailable Allergies, Adverse Reactions, Alerts Substance Reaction Event Type N.K.D.A. Info Not Available Non Drug Allergy Encounters Encounter Location Date Established Patient [facility] Association, [facility] Jun 25, 2014 [place] refill [facility], [facility] Aug 06, 2014 Unknown [facility] Association, [facility] August 18, 2014 chest pain. 10/06 [facility] Association, [facility] October 07, 2014 Established Patient [facility] Association, [facility] December 17, 2013 STRESS TEST Cardiovascular Association, [facility] December 17, 2013 Established Patient [facility], [facility] Mar 19, 2014 Established Patient [facility], [facility] May 12, 2015 Established Patient [facility], [facility] Jan 18, 2015 possible heart attack [facility], [facility] May 11, 2015 chest pain [facility], [facility] December 28, 2015 Established Patient [facility], [facility] Apr 10, 2016 Pt in [facility] 05/18 [facility] Association, [facility] May 18, 2015 [place] [facility] Association, [facility] October 19, 2015 Problems Problem Type Condition ICD-9 Code Onset Dates Condition Status Assessment Presence 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 Assessment 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 Assessment Presence of coronary angioplasty Z95.5 Active implant and graft Problem 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 Problem Presence 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 Problem Presence of coronary angioplasty Z95.5 Active implant and graft Problem Hyperlipidemia, unspecified E78.5 Active Problem Hypothyroidism, unspecified E03.9 Active Problem 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 Problem 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 Assessment 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 Assessment Hyperlipidemia, unspecified E78.5 Active Assessment 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 Medications Medication Code System Code Instructions Start Date End Date Status Dosage carvedilol MULTUM 27722 3.125 orally 2 Active 2 tab(s) times a day tamsulosin MULTUM 71674 0.4 mg orally Active 1 cap(s) once a day nitroglycerin MULTUM 37361 0.4 mg Active 1 tab(s) sublingually every 5 minutes losartan MULTUM 02996 50 mg orally once Active 1 tab(s) a day Glumetza MULTUM 89935 500 mg orally 2 Active 1 tab(s) times a day ASA Unknown 0 81mg once a day Active 1 tab(s) clopidogrel MULTUM 47378 75 mg orally once Active 1 tab(s) a day Prilosec MULTUM 363 20 mg orally once Active 1 cap(s) a day Synthroid MULTUM 2205 200 mcg (0.2 mg) Active 1 tab(s) orally once a day spironolactone MULTUM 67894 25 mg orally 3 Active 1 tab(s) times a day furosemide MULTUM 54000 40 mg orally once Active 1 tab(s) a day atorvastatin MULTUM 64140 10 mg orally once Active 1 tab(s) a day (at bedtime) glimepiride MULTUM 08528 1 mg orally bid Active 1 tab(s) [place] MULTUM 43560 1000 mg orally 2 Active 1 tab(s) [...]
--- OUTSIDE RECORDS SUMMARY | 2018-07-05 18:16 | XMS REPORT ---
:1935 Author Organization [employer] Care Team Providers Name Role Phone PHYLLIS [facility] Provider Role Unavailable Encounters Encounter Location Date Established Patient [facility] Association, [facility] Jun 25, 2014 [place] refill [facility], [facility] Aug 06, 2014 Unknown [facility] Association, [facility] August 18, 2014 chest pain. 10/06 [facility] Association, [facility] October 07, 2014 Established Patient [facility] Association, [facility] December 17, 2013 STRESS TEST Cardiovascular Association, [facility] December 17, 2013 Established Patient [facility] Association, [facility] Mar 19, 2014 Established Patient [facility], [facility] May 12, 2015 Established Patient [facility], [facility] Jan 18, 2015 possible heart attack [facility] Association, [facility] May 11, 2015 Problems Problem Type Condition ICD-9 Code Onset Dates Condition Status Problem 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
--- OUTSIDE RECORDS SUMMARY | 2018-07-05 18:17 | XMS REPORT ---
:1935 [facility] [address] [place] [address] Care Team Providers Name Role Phone KARI DUNCAN Unavailable Unavailable Problems This patient has no known problems. Allergies, Adverse Reactions, Alerts This patient has no known allergies or adverse reactions. Medications This patient has no known medications. Results Test Description Test Time Test Comments Text Results Atomic Results Result Comments PROTHROMBIN TIME/INR 2017-12-20 07:35:00 Test Item Value Reference Range Comments PROTIME (BEAKER) (test zpen=607) 15.1 seconds 11.7-14.7 INR (BEAKER) (test lord=716) 1.2 <=5.9 RECOMMENDED COUMADIN/WARFARIN INR THERAPY RANGESSTANDARD DOSE: 2.0 - 3.0 Includes: PROPHYLAXIS forvenous thrombosis, systemic embolization; TREATMENT for venous thrombosis and/or pulmonary embolus.HIGH RISK: Target INR is 2.5-3.5 for patients with mechanical heart valves.BASIC METABOLIC [id number] 07:33: 00 Test Item Value Reference Range Comments SODIUM (BEAKER) (test 142 meq/L 136-145 kzfd=456) POTASSIUM (BEAKER) (test 4.1 meq/L 3.5-5.1 wlvy=163) CHLORIDE (BEAKER) (test 105 meq/L 98-107 wtpl=399) CO2 (BEAKER) (test 28 meq/L 22-29 itpd=420) BLOOD UREA NITROGEN 30 mg/dL 7-21 (BEAKER) (test azci=531) CREATININE (BEAKER) (test 1.90 mg/dL 0.57-1.25 kwfn=915) GLUCOSE RANDOM (BEAKER) 118 mg/dL 70-105 (test xmjw=165) CALCIUM (BEAKER) (test 9.1 mg/dL 8.4-10.2 qgmj=290) EGFR (BEAKER) (test 34 mL/min/1.73 sq m ESTIMATED GFR IS NOT ehbk=0739) ACCURATE CREATININE CLEARANCE IN PREDICTING GLOMERULAR FILTRATION RATE. ESTIMATED GFR IS NOT APPLICABLE FOR DIALYSIS PATIENTS. CBC W/PLT COUNT & AUTO [id number] 07:16:00 Test Item Value Reference Range Comments WHITE BLOOD CELL COUNT (BEAKER) (test xxoz=487) 4.6 K/ L 3.5-10.5 RED BLOOD CELL COUNT (BEAKER) (test oinv=300) 3.33 M/ L 4.63-6.08 HEMOGLOBIN (BEAKER) (test zdoi=134) 10.1 GM/DL 13.7-17.5 HEMATOCRIT (BEAKER) (test fwel=860) 31.9 % 40.1-51.0 MEAN CORPUSCULAR VOLUME (BEAKER) (test vmmr=124) 95.8 fL 79.0-92.2 MEAN CORPUSCULAR HEMOGLOBIN (BEAKER) (test 30.3 pg 25.7-32.2 zdqj=937) MEAN CORPUSCULAR HEMOGLOBIN CONC (BEAKER) (test 31.7 GM/DL 32.3-36.5 rplr=201) RED CELL DISTRIBUTION WIDTH (BEAKER) (test 17.4 % 11.6-14.4 gsjj=886) PLATELET COUNT (BEAKER) (test hnbu=862) 99 K/CU MM 150-450 MEAN PLATELET VOLUME (BEAKER) (test gtzn=797) 11.0 fL 9.4-12.4 NUCLEATED RED BLOOD CELLS (BEAKER) (test 0 /100 WBC 0-0 yirq=441) NEUTROPHILS RELATIVE PERCENT (BEAKER) (test 68 % vrgz=399) LYMPHOCYTES RELATIVE PERCENT (BEAKER) (test 20 % lpap=565) MONOCYTES RELATIVE PERCENT (BEAKER) (test 9 % wety=469) EOSINOPHILS RELATIVE PERCENT (BEAKER) (test 2 % mwqu=550) BASOPHILS RELATIVE PERCENT (BEAKER) (test 0 % lrar=510) NEUTROPHILS ABSOLUTE COUNT (BEAKER) (test 3.12 K/ L 1.78-5.38 dcde=907) LYMPHOCYTES ABSOLUTE COUNT (BEAKER) (test 0.93 K/ L 1.32-3.57 blhs=808) MONOCYTES ABSOLUTE COUNT (BEAKER) (test ndik=935) 0.40 K/ L 0.30-0.82 EOSINOPHILS ABSOLUTE COUNT (BEAKER) (test 0.09 K/ L 0.04-0.54 pivb=304) BASOPHILS ABSOLUTE COUNT (BEAKER) (test xinl=649) 0.01 K/ L 0.01-0.08 IMMATURE GRANULOCYTES-RELATIVE PERCENT (BEAKER) 0 % 0-1 (test fkij=0867)
[2018-07-05] MEDS ORDERED: NA CHLORIDE 0.9% 500 ML ONE (18:35)
[2018-07-05 18:37] LABS: Absolute Lymphocytes (CBC) 1.3 K/uL (0.7-4.9); Absolute Monocytes 0.6 K/uL (0.1-1.3); Absolute Neutrophil 12.7 K/uL (1.8-8.0); Basophils % 0.1 % (0-1.3); Lymphocytes % 8.9 % (15.3-44.8); Monocytes % 4.2 % (3.3-12.3); RBC Red Blood Cell Count 4.19 M/uL (4.33-5.43)
[2018-07-05 19:13] LABS: Protime INR 1.1
[2018-07-05] MEDS ORDERED: NA CHLORIDE 0.9% 1,000 ML ONE ×2 (19:15→20:40)
[2018-07-05 19:21] LABS: Albumin 3.6 g/dL (3.4-5.0); Bilirubin Direct 0.7 mg/dL (0-0.2); Bilirubin Total 1.7 mg/dL (0.2-1.0); CKMB Creatine Kinase MB 35.6 ng/mL (0.3-3.6); Magnesium 2.7 mg/dL (1.8-2.4); Potassium 3.9 mmol/L (3.5-5.1); Protein, Total 7.2 g/dL (6.4-8.2); Troponin (Emerg Dept Use Only) 0.19 ng/mL (0.0-0.045)
--- NOTE | 2018-07-05 19:38 | RAD REPORT ---
EXAM DESCRIPTION: CT - Head Brain Wo Cont - 07/05/2018 7:26 pm CLINICAL HISTORY: Syncope, fall COMPARISON: CT; Head Brain Wo Cont 01/04/2018 TECHNIQUE: Axial 5 mm thick images of the head were obtained without IV contrast. All CT scans are performed using dose optimization technique as appropriate and may include automated exposure control or mA/KV adjustment according to patient size. FINDINGS: No intracranial hemorrhage, mass, edema or shift of mid-line structures. No acute infarcti on changes seen. Marked atrophy and chronic ischemic changes are noted. Ventricular size is in propo rtion to volume loss. Mastoid air cells and visualized portions of the paranasal sinuses are clear. Dense arterial calcific ations. No acute bony findings. IMPRESSION: Marked atrophy and chronic ischemic changes are noted. Ventricular size is in proportio n to volume loss. No acute findings.
[2018-07-05 19:54] LABS: Blood Morphology Comment NOT SEEN (NOT SEEN); Platelet Estimate DECR; Urine White Blood Cell Casts OK
--- NOTE | 2018-07-05 19:59 | RAD REPORT ---
EXAM DESCRIPTION: CT - Chest Abd Pelvis Wo Con - 07/05/2018 7:26 pm CLINICAL HISTORY: Chest pain, abdominal pain, kidney failure COMPARISON: None. TECHNIQUE: During dynamic enhancement using 100 milliliters nonionic IV contrast, axial 5 millimeter thick images of the chest, abdomen and pelvis were obtained. Biphasic technique was utilized through the abdomen. No oral contrast administered. All CT scans are performed using dose optimization technique as appropriate and may include automated exposure control or mA/KV adjustment according to patient size. FINDINGS: The lungs are clear of mass and infiltrate. No pneumothorax or pleural effusion. No ches t wall mass or abnormal axillary lymphadenopathy seen. Mediastinal and hilar regions show no mass or lymphadenopathy. Cardiomegaly is present without pericardial effusion. Prominent aortic and Coronar y artery calcifications are present. CABG surgical changes are evident. Defibrillator is in place. The liver, spleen and pancreas show no significant findings. Cholecystectomy clips are present. No b iliary tree dilatation. No hydronephrosis and no obstructing mass. Isodense masses and pyelonephritis are not excluded on non contrast study. Bilateral adrenal gland fullness is present, nonspecific. Urinary bladder is contract ed accentuating wall thickness. Prostate gland is mildly prominent. No bladder calculus. Bladder mass cannot be accurately assessed. No gastric dilatation or wall thickening. No acute small bowel finding. Appendix is normal. Cecum is tortuous and redundant. Moderately large stool volume distends the rectum. Distal descending colon sh ows circumferential wall thickening with adjacent inflammatory stranding. There is moderate diverticu losis. No free air, abscess or surgically emergent finding. No acute process seen elsewhere. No mass or bulky lymphadenopathy. Fat extends into the origin of the right inguinal canal. Disc and bony degenerative changes are present. Dense vascular calcifications seen. IMPRESSION: Acute diverticulitis findings involving the distal descending colon. No abscess, free ai r or surgically emergent finding. Cardiomegaly without pericardial effusion. No acute CT chest finding. Bilateral adrenal gland fullness. 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 No other finding shaylee t would indicate or elevate likelihood of a neoplastic process.
[2018-07-05] MEDS ORDERED: PIPER/TAZO/NS 3.375gm 3.375 GM/100 ML BAG ONE (20:40)
[2018-07-05] MEDS ORDERED: NA CHLORIDE 0.9% 100 ML IV ONE (20:43)
--- NOTE | 2018-07-05 20:50 | EDPHYS ---
Physician Documentation [facility] Name: Blayne Ashford Age: 82 yrs Sex: Male : 1935 Arrival Date: 07/05/2018 Time: 17:58 Bed 8 Private MD: ED Physician Tutu Thompson HPI: 07/05 18:44 This 82 yrs old Male presents to ER via EMS with complaints of Syncope. rn 18:45 The patient has experienced syncope. Onset: The symptoms/episode began/occurred just rn prior to arrival. Associated injury: The patient did not suffer any apparent associated injury. Current symptoms: Currently, the patient is not experiencing any symptoms. It is unknown whether or not the patient has had similar symptoms in the past. Per report, patient had witnessed syncopal episode, in wheelchair, no trauma, patient reports abd pain. . Historical: - Allergies: 18:01 No Known Allergies; hb - Home Meds: 22:06 spironolactone 50 mg oral tab 1 tab 2 times per day [Active]; atorvastatin 40 mg Oral aa1 tab 2 tabs nightly [Active]; buspirone 10 mg Oral tab 1 tab daily [Active]; clopidogrel 75 mg Oral tab once daily [Active]; exelon patch daily [Active]; glimepiride 2 mg Oral tab once daily [Active]; isosorbide dinitrate 20 mg Oral tab 1 tab 2 times per day [Active]; lactulose 10 gram/15 mL Oral soln 30 mL nightly for Constipation [Active]; Lantus 100 unit/mL Sub-Q soln 10 unit daily [Active]; Lasix 20 mg oral tab 3 tabs 2 times per day [Active]; levothyroxine 100 mcg tab 2 tabs once daily [Active]; losartan 25 mg Oral tab once daily [Active]; metoprolol tartrate 25 mg Oral tab 1 tab 2 times per day [Active]; Namenda 5 mg oral tab daily [Active]; omeprazole 20 mg Oral TbEC daily [Active]; Ranexa 1,000 mg Oral Tb12 1 tab 2 times per day [Active]; tamsulosin 0.4 mg Oral cp24 once daily [Active]; Tradjenta 5 mg oral tab 1 tab once daily [Active]; acetaminophen 325 mg Oral tab 2 tabs as needed [Active]; Vitamin D2 50,000 unit oral cap 1 cap once wkly [Active]; Vitamin D3 1,000 unit oral tab 2 tab daily [Active]; Zofran (as hydrochloride) 4 mg Oral tab as needed [Active]; - PMHx: 18:01 angina pectoris; Anxiety; Atrial Fib; BPH; CAD; CHF; COPD; Dementia; Diabetes - NIDDM; hb HEART FAILURE; Hematuria; Hyperlipidemia; Hypertension; Hypothyroidism; MUSCLE WEAKNESS; Myocardial infarction; Pacemaker; Pneumonia; - Immunization history:: Adult Immunizations up to date. - Social history:: Smoking status: unknown. - Ebola Screening: : No symptoms or risks identified at this time. - Family history:: not pertinent. - Hospitalizations: : No recent hospitalization is reported. ROS: 18:45 Constitutional: Negative for fever, chills, and weight loss, Eyes: Negative for injury, rn pain, redness, and discharge, Neck: Negative for injury, pain, and swelling, Cardiovascular: Negative for chest pain, palpitations, and edema, Respiratory: Negative for shortness of breath, cough, wheezing, and pleuritic chest pain, Abdomen/GI: + abd pain Back: Negative for injury and pain, : Negative for injury, bleeding, discharge, and swelling, MS/Extremity: Negative for injury and deformity, Neuro: + weakness Exam: 18:45 Constitutional: This is a well developed, well nourished patient who is awake, alert, rn and in no acute distress. Head/Face: Normocephalic, atraumatic. Eyes: Pupils equal round and reactive to light, extra-ocular motions intact. Lids and lashes normal. Conjunctiva and sclera are non-icteric and not injected. Cornea within normal limits. Periorbital areas with no swelling, redness, or edema. ENT: dry MM Cardiovascular: Irregular rhythm, no murmur Respiratory: Lungs have equal breath sounds bilaterally, clear to auscultation, No increased work of breathing, no retractions or nasal flaring. Abdomen/GI: soft, + lower abd tenderness, no rebound, + guarding, no masses MS/ Extremity: Pulses equal, no cyanosis. Neurovascular intact. Full, normal range of motion. Equal circumference. Neuro: Awake and alert, GCS 15, oriented to person, place. Cranial nerves II-XII grossly intact. Motor strength 4/5 in all extremities. Sensory grossly intact. Vital Signs: 18:01 BP 74 / 56; Pulse 88; Resp 18; Pulse Ox 98% on 4 lpm NC; hb 18:01 BP 109 / 71; Pulse 87; Resp 18; Pulse Ox 98% on R/A; hb 18:30 BP 87 / 47; Pulse 61; Resp 16; Pulse Ox 100% on 4 lpm NC; ph 19:00 BP 87 / 64; Pulse 60; Resp 18; Pulse Ox 100% on 2 lpm NC; ph 19:40 BP 117 / 44; Pulse 59; Resp 16; Pulse Ox 100% on 2 lpm NC; Pain 0/10; aa1 20:00 BP 100 / 38; Pulse 59; Resp 18; Pulse Ox 100% on 2 lpm NC; Pain 0/10; aa1 20:25 BP 85 / 35; Pulse 59; Resp 16; Temp 97.6(O); Pulse Ox 100% on 2 lpm NC; Pain 0/10; aa1 21:08 BP 91 / 38; Pulse 60; Resp 18; Pulse Ox 100% on 2 lpm NC; Pain 0/10; aa1 21:53 BP 95 / 45; Pulse 60; Resp 18; Temp 97.8; Pulse Ox 100% on 2 lpm NC; Pain 0/10; aa1 22:35 BP 105 / 44; Pulse 62; Resp 18; Temp 97.5; Pulse Ox 100% on 2 lpm NC; Pain 0/10; aa1 MDM: 18:05 Patient medically screened. rn 18:28 ED course: bedside u/s negative for free abd fluid, aorta identified, no gross aneurysm rn noted. . 19:03 Transition of care: After a detail discussion of the patient's case, care is rn transferred to Tutu Thompson MD. 20:43 Differential Diagnosis: cerebrovascular accident, drug effect, seizure, sepsis, gs vasovagal episode. Data reviewed: vital signs, nurses notes. Counseling: I had a detailed discussion with the patient and/or guardian regarding: the historical points, exam findings, and any diagnostic results supporting the discharge/admit diagnosis, radiology results. Response to treatment: the patient's symptoms have markedly improved after treatment, waiting on fluid resus, to eval for pressors. discussed case with lashawn will admit. 07/05 18:11 Order name: Basic Metabolic Panel; Complete Time: 19:58 rn 07/05 18:11 Order name: CBC with Diff; Complete Time: 19:58 rn 07/05 18:11 Order name: Ckmb; Complete Time: 19:58 rn 07/05 18:11 Order name: CPK; Complete Time: 19:58 rn 07/05 18:11 Order name: Hepatic Function; Complete Time: 19:58 rn 07/05 18:11 Order name: Lipase; Complete Time: 19:58 rn 07/05 18:11 Order name: Magnesium; Complete Time: 19:58 rn 07/05 18:11 Order name: Protime (+inr); Complete Time: 19:58 rn 07/05 18:11 Order name: Ptt, Activated; Complete Time: 19:58 07/05 18:11 Order name: Troponin (emerg Dept Use Only); Complete Time: 19:58 07/05 18:41 Order name: CBC Smear Scan; Complete Time: 19:58 EDMS 07/05 20:17 Order name: Lactate 07/05 20:17 Order name: Procalcitonin 07/05 20:18 Order name: Lactate; Complete Time: 07:15 EDMS 07/05 18:11 Order name: CT Head Brain wo Cont; Complete Time: 19:58 07/05 18:11 Order name: EKG; Complete Time: 18:12 07/05 18:11 Order name: Cardiac monitoring; Complete Time: 18:29 rn 07/05 18:11 Order name: EKG - Nurse/Tech; Complete Time: 19:14 07/05 18:11 Order name: IV Saline Lock; Complete Time: 18:29 rn 07/05 18:11 Order name: Labs collected and sent; Complete Time: 18:29 rn 07/05 18:11 Order name: NPO; Complete Time: 18:30 rn 07/05 18:11 Order name: O2 Per Protocol; Complete Time: 18:30 rn 07/05 18:28 Order name: CT Chest Abdomen Pelvis W/O Contrast; Complete Time: 20:14 rn 07/05 20:18 Order name: Procalcitonin; Complete Time: 07:15 EDMS 07/05 20:27 Order name: Blood Culture* 07/05 18:11 Order name: O2 Sat Monitoring; Complete Time: 18:30 rn Administered Medications: 18:29 Drug: NS 0.9% 500 ml Route: IV; Rate: bolus; Site: right forearm; ph 19:40 Follow up: IV Status: Completed infusion aa1 19:06 Drug: NS 0.9% 1000 ml Route: IV; Rate: 1000 ml; Site: right forearm; ph 20:28 Follow up: IV Status: Completed infusion aa1 20:41 Drug: NS 0.9% 1000 ml Route: IV; Rate: 1 bolus; Site: right forearm; aa1 22:34 Follow up: IV Status: Completed infusion aa1 21:11 Drug: Zosyn 3.375 grams Route: IVPB; Infused Over: 60 mins; Site: right forearm; aa1 22:10 Follow up: IV Status: Completed infusion aa1 Point of Care Testing: Blood Glucose: 18:30 Blood Glucose: 137 mg/dL; ph Ranges: Critical Glucose Levels:Adult <50 mg/dl or >400 mg/dl <40 mg/dl or >180 mg/dl Disposition: 07/05/18 20:49 Hospitalization ordered by Eugene Sheehan for Inpatient Admission. Preliminary diagnosis are Sepsis due to Escherichia coli [E. coli], Sepsis due to anaerobes, Diverticulosis of large intestine without perforation or abscess without bleeding. - Bed requested for Intensive Care Unit. - Status is Inpatient Admission. aa1 - Condition is Stable. - Problem is new. - Symptoms have improved. UTI on Admission? No Critical care time excluding procedures: 20:43 Critical care time: Bedside Care: 10 minutes, Consultation: 10 minutes, Family gs Intervention: 10 minutes. Total time: 30 minutes Signatures: Dispatcher [employer] EDAL Mylene Fuchs RN RN kl Kern, Alissa, RN RN aa1 Calixto Sorensne MD MD rn Hall, Patricia, RN RN ph Baxter, Heather, RN RN hb Starr, Gregory, MD MD Corrections: (The following items were deleted from the chart) 18:56 18:12 Angio Aorta For Dissection+CT.RAD.BRZ ordered. [facility] EDAL 21:49 20:49 Hospitalization Ordered by Eugene Sheehan MD for Inpatient Admission. Preliminary kl diagnosis is Sepsis due to Escherichia coli [E. coli]; Sepsis due to anaerobes; Diverticulosis of large intestine without perforation or abscess without bleeding. Bed requested for Telemetry/MedSurg (Inpatient). Status is Inpatient Admission. Condition is Stable. Problem is new. Symptoms have improved. UTI on Admission? No. gs 22:45 21:49 07/05/2018 20:49 Hospitalization Ordered by Eugene Sheehan MD for Inpatient aa1 Admission. Preliminary diagnosis is Sepsis due to Escherichia coli [E. coli]; Sepsis due to anaerobes; Diverticulosis of large intestine without perforation or abscess without bleeding. Bed requested for Intensive Care Unit. Status is Inpatient Admission. Condition is Stable. Problem is new. Symptoms have improved. UTI on Admission? No. kl
--- NOTE | 2018-07-05 20:50 | ER ---
Nurse's Notes [facility] Name: Blayne Ashford Age: 82 yrs Sex: Male : 1935 Arrival Date: 07/05/2018 Time: 17:58 Bed 8 Private MD: Diagnosis: Sepsis due to Escherichia coli [E. coli];Sepsis due to anaerobes;Diverticulosis of large intestine without perforation or abscess without bleeding Presentation: 07/05 17:59 Presenting complaint: EMS states: Pt had witnessed syncopal episode at [facility] in wheel chair without falling, initial BP was 75/46. Pt placed in trendelenberg position and BP raised to 100 systolic. PT GCS 14. Transition of care: patient was not received from another setting of care. Onset of symptoms was July 05, 2018. Risk Assessment: Do you want to hurt yourself or someone else? Patient reports no desire to harm self or others. Initial Sepsis Screen: Does the patient meet any 2 criteria? No. Patient's initial sepsis screen is negative. Does the patient have a suspected source of infection? No. Patient's initial sepsis screen is negative. Care prior to arrival: None. 17:59 Method Of Arrival: EMS: [facility] 17:59 Acuity: LASHANDA 2 hb Historical: - Allergies: 18:01 No Known Allergies; hb - Home Meds: 22:06 spironolactone 50 mg oral tab 1 tab 2 times per day [Active]; atorvastatin 40 mg Oral aa1 tab 2 tabs nightly [Active]; buspirone 10 mg Oral tab 1 tab daily [Active]; clopidogrel 75 mg Oral tab once daily [Active]; exelon patch daily [Active]; glimepiride 2 mg Oral tab once daily [Active]; isosorbide dinitrate 20 mg Oral tab 1 tab 2 times per day [Active]; lactulose 10 gram/15 mL Oral soln 30 mL nightly for Constipation [Active]; Lantus 100 unit/mL Sub-Q soln 10 unit daily [Active]; Lasix 20 mg oral tab 3 tabs 2 times per day [Active]; levothyroxine 100 mcg tab 2 tabs once daily [Active]; losartan 25 mg Oral tab once daily [Active]; metoprolol tartrate 25 mg Oral tab 1 tab 2 times per day [Active]; Namenda 5 mg oral tab daily [Active]; omeprazole 20 mg Oral TbEC daily [Active]; Ranexa 1,000 mg Oral Tb12 1 tab 2 times per day [Active]; tamsulosin 0.4 mg Oral cp24 once daily [Active]; Tradjenta 5 mg oral tab 1 tab once daily [Active]; acetaminophen 325 mg Oral tab 2 tabs as needed [Active]; Vitamin D2 50,000 unit oral cap 1 cap once wkly [Active]; Vitamin D3 1,000 unit oral tab 2 tab daily [Active]; Zofran (as hydrochloride) 4 mg Oral tab as needed [Active]; - PMHx: 18:01 angina pectoris; Anxiety; Atrial Fib; BPH; CAD; CHF; COPD; Dementia; Diabetes - NIDDM; hb HEART FAILURE; Hematuria; Hyperlipidemia; Hypertension; Hypothyroidism; MUSCLE WEAKNESS; Myocardial infarction; Pacemaker; Pneumonia; - Immunization history:: Adult Immunizations up to date. - Social history:: Smoking status: unknown. - Ebola Screening: : No symptoms or risks identified at this time. - Family history:: not pertinent. - Hospitalizations: : No recent hospitalization is reported. Screenin:14 Abuse screen: Denies threats or abuse. Denies injuries from another. Nutritional ph screening: No deficits noted. Tuberculosis screening: No symptoms or risk factors identified. Fall Risk Secondary diagnosis (15 points) dementia, IV access (20 points). Ambulatory Aid- None/Bed Rest/Nurse Assist (0 pts). Gait- Weak (10 pts.). Mental Status- Overestimates/Forgets Limitations (15 pts.). Total Lao Fall Scale indicates High Risk Score (45 or more points). Fall prevention measures have been instituted. Side Rails Up X 2 Placed Close to Nursing Station Frequent Obs/Assessments Occuring As available patient and family educated on Fall Prevention Program and Strategies. Assessment: 18:05 General: Appears in no apparent distress. well groomed, Behavior is calm, cooperative, ph flat, quiet. Pain: Complains of pain in abdomen. Neuro: Level of Consciousness is awake, obeys commands, Oriented to person, place. Cardiovascular: Denies chest pain, lightheadedness, shortness of breath, Capillary refill is sluggish in bilateral fingers Rhythm is regular. Respiratory: Airway is patent Respiratory effort is even, unlabored, Respiratory pattern is regular, symmetrical, Denies shortness of breath. GI: Abdomen is flat, non-distended, Abdomen is tender to palpation X 4 quads. Reports upper abdominal pain, Patient currently denies bloody stool, diarrhea, nausea, vomiting. Derm: Skin is fragile, is thin, Skin is dry, Skin is pale, Skin temperature is cool. Musculoskeletal: Circulation, motion, and sensation intact. Range of motion: intact in all extremities. 19:02 Reassessment: Patient appears in no apparent distress at this time. Patient and/or ph family updated on plan of care and expected duration. Pain level reassessed. Informed MD that pt's BP 87/[address] concerned about taking pt to CT with current BP. Per MD, will hang liter bolus and ok to take pt to CT once bolus initiated. 19:10 Reassessment: Patient appears in no apparent distress at this time. Pt taken to CT at aa1 this time. 20:20 Reassessment: Patient appears in no apparent distress at this time. No changes from aa1 previously documented assessment. Patient and/or family updated on plan of care and expected duration. Pain level reassessed. Pt's BP decreased once liter bolus complete, per MD will administer 2nd liter at this time. 21:17 Reassessment: Patient appears in no apparent distress at this time. No changes from aa1 previously documented assessment. Patient and/or family updated on plan of care and expected duration. Pain level reassessed. Dr. Glover at bedside for pt assessment. 21:45 Reassessment: Patient appears in no apparent distress at this time. No changes from aa1 previously documented assessment. Patient and/or family updated on plan of care and expected duration. Pain level reassessed. Called ICU to see if nurse is ready to receive pt, community development aide states nurse will call as soon as she is ready. 22:35 Reassessment: Patient appears in no apparent distress at this time. No changes from aa1 previously documented assessment. Patient and/or family updated on plan of care and expected duration. Pain level reassessed. Report given to CARLEY Dorado in ICU. Vital Signs: 18:01 BP 74 / 56; Pulse 88; Resp 18; Pulse Ox 98% on 4 lpm NC; hb 18:01 BP 109 / 71; Pulse 87; Resp 18; Pulse Ox 98% on R/A; hb 18:30 BP 87 / 47; Pulse 61; Resp 16; Pulse Ox 100% on 4 lpm NC; ph 19:00 BP 87 / 64; Pulse 60; Resp 18; Pulse Ox 100% on 2 lpm NC; ph 19:40 BP 117 / 44; Pulse 59; Resp 16; Pulse Ox 100% on 2 lpm NC; Pain 0/10; aa1 20:00 BP 100 / 38; Pulse 59; Resp 18; Pulse Ox 100% on 2 lpm NC; Pain 0/10; aa1 20:25 BP 85 / 35; Pulse 59; Resp 16; Temp 97.6(O); Pulse Ox 100% on 2 lpm NC; Pain 0/10; aa1 21:08 BP 91 / 38; Pulse 60; Resp 18; Pulse Ox 100% on 2 lpm NC; Pain 0/10; aa1 21:53 BP 95 / 45; Pulse 60; Resp 18; Temp 97.8; Pulse Ox 100% on 2 lpm NC; Pain 0/10; aa1 22:35 BP 105 / 44; Pulse 62; Resp 18; Temp 97.5; Pulse Ox 100% on 2 lpm NC; Pain 0/10; aa1 ED Course: 17:58 Patient arrived in ED. hb 18:00 Triage completed. hb 18:00 Patient has correct armband on for positive identification. Bed in low position. Call ph light in reach. Side rails up X2. hall monitor on. Pulse ox on. NIBP on. Warm blanket given. 18:01 Arleen Alberto, RN is Primary Nurse. ph 18:01 Arm band placed on left wrist. hb 18:05 Calixto Sorensen MD is Attending Physician. rn 18:31 Initial lab(s) drawn, by ca, sent to lab. Inserted saline lock: 22 gauge in right ph forearm, using aseptic technique. Blood collected. 19:02 Attending Physician role handed off by Calixto Sorensen MD gs 19:02 Tutu Thompson MD is Attending Physician. gs 19:26 CT Head Brain wo Cont In Process Unspecified. EDMS 19:26 CT Chest Abdomen Pelvis W/O Contrast In Process Unspecified. EDMS 20:48 Eugene Sheehan MD is Hospitalizing Provider. gs 21:00 Patient admitted, IV remains in place. aa1 21:35 Notified ED physician of a critical lab result(s). lactate 2.8. 22:41 No provider procedures requiring assistance completed. aa1 Administered Medications: 18:29 Drug: NS 0.9% 500 ml Route: IV; Rate: bolus; Site: right forearm; ph 19:40 Follow up: IV Status: Completed infusion aa1 19:06 Drug: NS 0.9% 1000 ml Route: IV; Rate: 1000 ml; Site: right forearm; ph 20:28 Follow up: IV Status: Completed infusion aa1 20:41 Drug: NS 0.9% 1000 ml Route: IV; Rate: 1 bolus; Site: right forearm; aa1 22:34 Follow up: IV Status: Completed infusion aa1 21:11 Drug: Zosyn 3.375 grams Route: IVPB; Infused Over: 60 mins; Site: right forearm; aa1 22:10 Follow up: IV Status: Completed infusion aa1 Point of Care Testing: Blood Glucose: 18:30 Blood Glucose: 137 mg/dL; ph Ranges: Intake: 22:40 IV: 2500ml (IV Fluid); Total: 2500ml. aa1 Outcome: 20:49 Decision to Hospitalize by Provider. gs 22:44 Admitted to ICU accompanied by nurse, accompanied by tech, via stretcher, room 7, with aa1 oxygen, on monitor, with chart, Report called to CARLEY Dorado 22:44 Condition: stable 22:44 Discharge instructions given to patient, Instructed on the need for admit. 22:45 Patient left the ED. aa1 Signatures: Dispatcher [employer] EDCatherine Packer RN RN aa1 Dedra Hall RN RN Calixot Sorensen MD MD rn Hall, Patricia, RN RN Bina Heart RN RN Tutu Thompson MD MD Corrections: (The following items were deleted from the chart) 20:58 20:25 BP 85 / 35; Pulse 59bpm; Resp 16bpm; Pulse Ox 100% 2 lpm Nasal Cannula; Pain aa1 010; aa1
--- NOTE | 2018-07-05 21:33 | P.HP ---
Certification for Inpatient Patient admitted to: Inpatient With expected LOS: >2 Midnights Practitioner: I am a practitioner with admitting privileges, knowledge of patient current condition, hospital course, and medical plan of care. Services: Services provided to patient in accordance with Admission requirements found in Title 42 Section 412.3 of the Code of Federal Regulations Patient History Date of Service: 07/05/18 Reason for admission: sepsis History of Present Illness: Mr Ashford is an 82 yeas old male with multiple mediacal problems including CAD, chronic systolic CHF EF 25-29%, DM II, HTN, Dementia, afib/flutter, pacemaker, COPD who is a resident of a local [facility]. This afternoon the patient had a syncopal episode while he was in hes wheelchair. His initial BP was 75/46. He was put in [place], then his blood pressure improved. No known history of fever. Unfortunately the patient is not a good historian to add more details. In ER the patient remain hypotensive, lab work shows leukocytosis, lactate and procalcitonin are pending, elevated creatinine, CK, trop I. CT abd/pelvis remarkable for noncomplicated diverticulitis. Allergies No Known Allergies Allergy (Verified 01/24/18 05:19) Home medications list reviewed: Yes Home Medications: Aspirin [Adult Aspirin] 81 mg PO DAILY 01/24/18 Atorvastatin Calcium [Lipitor] 80 mg PO BEDTIME 01/24/18 Cholecalciferol (Vitamin D3) [Vitamin D3] 2,000 unit PO DAILY 01/24/18 Clopidogrel Bisulfate [Plavix*] 75 mg PO DAILY 01/24/18 Ergocalciferol (Vitamin D2) [Vitamin D2] 1 tab PO EVERY 7TH DAY 01/24/18 Glimepiride [Amaryl*] 2 mg PO DAILY 01/24/18 Isosorbide Dinitrate 10 mg PO BID 01/24/18 Levothyroxine Sodium [Synthroid] 200 mcg PO DAILY 01/24/18 Losartan Potassium 25 mg PO DAILY 01/24/18 Metoprolol Succinate [Toprol Xl*] 25 mg PO BID 01/24/18 Nitroglycerin [Nitrostat*] 0.4 mg SL [id number] PRN 01/24/18 Omeprazole 20 mg PO DAILY 01/24/18 Ranolazine [Ranexa] 1,000 mg PO BID 01/24/18 Rivastigmine [Exelon] 1 each TD DAILY 01/24/18 Spironolactone [Aldactone*] 25 mg PO BID 01/24/18 Tamsulosin [Flomax*] 0.4 mg PO DAILY 01/24/18 risperiDONE [Risperidone] 1 tab PO BEDTIME 01/24/18 Furosemide [Lasix] 60 mg PO BIDL #90 tab 01/25/18 - Past Medical/Surgical History Diabetic: Yes -: NIDDM -: PAcemaker -: afib per hx -: CAD -: chronic systolic CHF EF 25-29% -: Dementia -: hypothyroidism -: HTN -: Pneumonia -: COPD -: BPH -: angina -: pacemaker -: triple bypass - Family History Father -: Heart disease - Social History Smoking Status: Unknown if ever smoked Alcohol use: No CD- Drugs: No Caffeine use: No Place of Residence: Shelter Review of Systems 10-point ROS is otherwise unremarkable Physical Examination - Physical Exam General: Alert, In no apparent distress, Demented HEENT: Atraumatic, PERRLA, Mucous membr. moist/pink, EOMI, Sclerae nonicteric Neck: Supple, 2+ carotid pulse no bruit, No LAD, Without JVD or thyroid abnormality Respiratory: Clear to auscultation bilaterally, Diminished Cardiovascular: Normal S1 S2, Irregular heart rate/rhythm, Systolic murmur Gastrointestinal: Normal bowel sounds, No tenderness Musculoskeletal: No tenderness Integumentary: No rashes Neurological: Normal speech, Normal strength at 5/5 x4 extr, Normal tone, Normal affect Lymphatics: No axilla or inguinal lymphadenopathy - Studies Laboratory Data (last 24 hrs) 07/05/18 18:20: PT 13.0 H, INR 1.10, APTT 30.8 07/05/18 18:20: WBC 14.6 H, Hgb 13.3 L, Hct 39.0 L, Plt Count 139 L 07/05/18 18:20: Sodium 131 L, Potassium 3.9, BUN 85 H, Creatinine 4.34 H, Glucose 129 H, Magnesium 2.7 H, Total Bilirubin 1.7 H, AST 91 H, ALT 37, Alkaline Phosphatase 68, Lipase 69 L Assessment and Plan - Problems (Diagnosis) (1) Septic shock Current Visit: Yes Status: Acute (2) Acute kidney injury superimposed on CKD Current Visit: Yes Status: Acute (3) Atrial flutter Onset Date: 01/27/18 Current Visit: No Status: Chronic Qualifiers: Atrial flutter type: typical Qualified Code(s): I48.3 - Typical atrial flutter (4) CAD (coronary artery disease) Onset Date: 12/31/17 Current Visit: No Status: Chronic Qualifiers: Coronary Disease-Associated Artery/Lesion type: [place] artery [place] vs. transplanted heart: [place] heart Associated angina: without angina Qualified Code(s): I25.10 - Atherosclerotic heart disease of [place] coronary artery without angina pectoris (5) Dementia Onset Date: 12/31/17 Current Visit: No Status: Chronic Qualifiers: Dementia type: unspecified type Dementia behavioral disturbance: without behavioral disturbance Qualified Code(s): F03.90 - Unspecified dementia without behavioral disturbance (6) Diabetes mellitus Onset Date: 10/21/17 Current Visit: No Status: Chronic Qualifiers: Diabetes mellitus type: type 2 Diabetes mellitus penitentiary insulin use: without penitentiary use Diabetes mellitus complication status: with unspecified complications Qualified Code(s): E11.8 - Type 2 diabetes mellitus with unspecified complications (7) Diverticulitis Current Visit: Yes Status: Acute - Plan The patient will be admitted to the hospital due to septic shock secondary to acute diverticulitis. He will be transfer to ICU for close monitoring, will order PICC line/central line to start vosopressors. Continue fluid resuscitation. Elevated CK no history of fall, no chest pain, elevated trop I, possible this is secondary to sepsis. Will continue monitor. Order empiric treatment with Cipro and Flagyl. Blood cultures in process. - Advance Directives Does patient have a Living Will: No Does patient have a Durable POA for Healthcare: No - Code Status/Comfort Care Code Status: Full Code Critical Care: Yes Time Spent Managing Pts Care (In Minutes): 40
[2018-07-05] MEDS ORDERED: GLUCAGON 1 MG/VIAL IM PRN (22:38)
[2018-07-05] MEDS ORDERED: NA CHLORIDE 0.9% 1,000 ML IV SCH (22:38)
[2018-07-05] MEDS ORDERED: ONDANSETRON 4 MG/2 ML VIAL IV PRN (22:38)
[2018-07-05] MEDS ORDERED: NOREPINEPHRINE 4 MG in D5W 250 ML IV PRN (22:38)
[2018-07-05] MEDS ORDERED: ACETAMINOPHEN 500 MG TAB PO PRN (22:38)
[2018-07-05] MEDS: D50W 25 GM/50 ML SYRINGE IV PRN (23:36)
[2018-07-05] MEDS: METRONIDAZOLE 500mg IVPB 500 MG/100 ML BAG IV SCH (23:38)
[2018-07-05] MEDS: INSULIN -REGULAR HUMAN 50 UNIT/0.5 ML ML SQ SCH (23:43)
[2018-07-06] MEDS ORDERED: NOREPINEPHRINE 4mg/D5W 250mL 4 MG/250 ML BAG IV ONE (00:16)
[2018-07-06] MEDS ORDERED: METRONIDAZOLE 500mg IVPB 500 MG/100 ML BAG IV SCH (01:00)
[2018-07-06] MEDS: CIPROFLOXACIN 400mg IV 400 MG/200 ML BAG IV SCH ×2 (01:28→20:41)
--- NOTE | 2018-07-06 05:38 | P.INFCA ---
Sepsis Focused Assessment - Sepsis Screen Result Severe Sepsis: Positive - Evaluation Current stage of sepsis: Severe sepsis - Vital Signs Reviewed: Yes Heart rate: 59 Blood Pressure: 108/68 Respiratory Rate: 14 O2 Sat by Pulse Oximetry: 100 - Examination Date exam was performed: 07/06/18 Heart: Regular rate/rhythm, Bradycardia Peripheral pulses: 2+ Slightly diminished Peripheral pulse location: Radial, Femoral Capillary refill: <2 Seconds Skin examination: Normal turgor
[2018-07-06 05:46] LABS: Urine Appearance TURBID; Urine Bilirubin NEGATIVE (NEG); Urine Blood 3+ (NEG); Urine Color YELLOW; Urine Glucose NEGATIVE (NEG); Urine Protein 1+ (NEG)
[2018-07-06 05:46] LABS: Absolute Lymphocytes (CBC) 1.6 K/uL (0.7-4.9); Absolute Monocytes 0.9 K/uL (0.1-1.3); Absolute Neutrophil 12.6 K/uL (1.8-8.0); Basophils % 0.1 % (0-1.3); Lymphocytes % 10.6 % (15.3-44.8); MPV 9.3 fL (7.6-11.3); Monocytes % 6.2 % (3.3-12.3); RBC Red Blood Cell Count 3.78 M/uL (4.33-5.43)
[2018-07-06 05:48] LABS: Urine Microscopic Reflex ORDER UMIC
[2018-07-06 06:08] LABS: Potassium 3.6 mmol/L (3.5-5.1)
[2018-07-06] MEDS: D50W 25 GM/50 ML SYRINGE IV PRN ×3 (06:16→16:14)
[2018-07-06 06:29] LABS: Urine Culture Reflex Order REFLEXED
[2018-07-06 06:30] LABS: Urine RBC <5 /HPF (NONE SEEN)
[2018-07-06 06:31] LABS: Urine Bacteria 20-50 /HPF (NONE SEEN)
--- NOTE | 2018-07-06 07:05 | EKG ---
Test Date: 2018-07-05 Test Time: 18:48:15 Helper Metal Hanging: LOLITA MEASUREMENT RESULTS: Intervals: Rate: 61 VT: QRSD: 116 QT: 560 QTc: 563 Bryan: P: 73 VT: QRS: -38 T: 118 INTERPRETIVE STATEMENTS: Atrial flutter with 3:1 AV conduction Left axis deviation Inferior infarct, age undetermined Cannot rule out Anterior infarct, age undetermined Prolonged QT Abnormal ECG Compared to ECG 02/03/2018 22:27:16 Left-axis deviation now present Prolonged QT interval now present T-wave abnormality no longer present Possible ischemia no longer present Myocardial infarct finding still present Electronically Signed On 07-06-18 07:04:38 PRODUCT DIRECTOR by Haroldo Rojas
[2018-07-06] MEDS: INSULIN -REGULAR HUMAN 50 UNIT/0.5 ML ML SQ SCH ×4 (07:30→20:36)
[2018-07-06] MEDS ORDERED: D5 0.9 NS 1,000 ML IV SCH ×2 (08:00→11:00)
[2018-07-06] MEDS: ISOSORBIDE DINIT 20 MG TAB PO SCH ×2 (08:24→20:41)
[2018-07-06] MEDS: MEMANTINE HCL 10 MG TABLET PO SCH (08:24)
[2018-07-06] MEDS: METRONIDAZOLE 500mg IVPB 500 MG/100 ML BAG IV SCH ×2 (08:24→16:27)
[2018-07-06] MEDS: HEPARIN 5000 UNIT/ML 1 ML VIAL SQ SCH ×2 (08:25→20:41)
[2018-07-06] MEDS: CLOPIDOGREL 75 MG TABLET PO SCH (08:25)
[2018-07-06] MEDS: FUROSEMIDE 20 MG/ 2ML VIAL IV SCH ×2 (08:25→16:33)
[2018-07-06] MEDS ORDERED: HOME MED 1 EA UNK (Buspirone Hcl [Buspar] 10 MG) PO SCH (09:00)
[2018-07-06] MEDS ORDERED: MEMANTINE HCL 5 MG PO SCH (09:00)
[2018-07-06] MEDS ORDERED: HOME MED 1 EA UNK (Levothyroxine Sodium [Levothyroxine Sodium] 200 MCG) PO SCH (09:00)
[2018-07-06] MEDS ORDERED: POTASSIUM 25 MEQ EFFERV TAB PO ONE (09:00)
--- NOTE | 2018-07-06 10:50 | RAD REPORT ---
EXAM DESCRIPTION: RAD - Chest Single View - 07/06/2018 1:12 am CLINICAL HISTORY: Device placement PICC line placement COMPARISON: none FINDINGS: A PICC line has been inserted with its tip in thes uperior vena cava. Mild interstitial pulmonary edema is suspected The heart is mildly to moderately enlarged. Postsurgical changes involve the chest IMPRESSION: PICC line with its tip in th superior vena cava
[2018-07-06] MEDS: RIVASTIGMINE 4.6 MG/24 HR PATCH TD SCH (11:00)
[2018-07-06] MEDS: BUSPIRONE HCL 5 MG TABLET PO SCH (11:02)
--- NOTE | 2018-07-06 11:05 | P.PN ---
Subjective Date of Service: 07/06/18 Primary Care Provider: skilled nursing Chief Complaint: sepsis Subjective: Demented, Other (appears stable on Levophed.) Physical Examination - Vital Signs Temperature: 97.2 F Blood Pressure: 98/43 Pulse: 52 Respirations: 15 Pulse Ox (%): 100 - Physical Exam General: Alert, Demented (Moderate to severe) HEENT: Atraumatic Neck: Supple Respiratory: Crackles/rales (Mild to the bases) Cardiovascular: Irregular heart rate/rhythm (AFib/Aflutter rate stable) Gastrointestinal: Normal bowel sounds, Soft and benign, Non-distended, Tenderness (Pain to palpation to the left lower quadrant) Musculoskeletal: No tenderness, No warmth Integumentary: No erythema, No warmth, No cyanosis, Tenderness/swelling (Mild edema to the lower extremities) Neurological: Normal speech, Normal strength at 5/5 x4 extr, Normal tone, Dementia (Advanced) - Studies Laboratory Data (last 24 hrs) 07/05/18 18:20: PT 13.0 H, INR 1.10, APTT 30.8 07/05/18 18:20: WBC 14.6 H, Hgb 13.3 L, Hct 39.0 L, Plt Count 139 L 07/05/18 18:20: Sodium 131 L, Potassium 3.9, BUN 85 H, Creatinine 4.34 H, Glucose 129 H, Magnesium 2.7 H, Total Bilirubin 1.7 H, AST 91 H, ALT 37, Alkaline Phosphatase 68, Lipase 69 L 07/05/18 02:00: Troponin I Cancelled Medications List Reviewed: Yes Assessment & Plan Discharge Plan: Usp Plan to discharge in: Greater than 2 days - Code Status/Comfort Care Code Status Assessed: Yes (Code status address with POA. Patient DNR.) Physician Review Additional Text: Impression: Septic shock with acute left lower quadrant diverticulitis complicated with UTI Acute on chronic renal failure stage IV Atrial fibrillation/atrial flutter with history of pacemaker Acute on chronic systolic CHF Diabetes mellitus type 2 with hypoglycemia History of hypertension Alzheimer's dementia, advanced CAD Hyperlipidemia Anemia likely of chronic disease Hypothyroidism BPH Plan: Septic shock with acute left lower quadrant diverticulitis complicated with UTI : Patient stable this time. Continue with IV antibiotic therapy. Blood and urine cultures obtained. Patient now on Levophed. Case discussed with nephrology. Will discontinue IV fluids due to heart failure. Will monitor lab , vitals closely. Pulmonology consulted further recommendation. Cardiology and GI also consulted. I did speak to the patient's power of research attorney. POA mentions patient has been declining in health over time due to his dementia. Advanced directives address in detail. Patient is DNR. Will change code status. Will monitor closely. If his condition does not improve will need to consider possible hospice. I will turn the service over to Dr. Christensen tomorrow. I will go over the plan of care with her. 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 Will try to wean off. Renal ultrasound ordered. Case discussed with Nephrology Atrial fibrillation/atrial flutter with history of pacemaker: Cardiology has evaluated patient. Will check echocardiogram. Cardiology has asked for pacemaker to be interrogated. Acute on Chronic systolic CHF: Will hold IV fluids. Patient will continue with diuresis. Echocardiogram ordered. Continue with cardiology recommendation. Diabetes mellitus type 2 with hypoglycemia: Sliding scale in place. Patient may require D 10 if with continue low blood sugar. History of hypertension: Hold blood pressure medication at this time. Will monitor closely. Wean off Levophed. Alzheimer's dementia, advanced: Continue with medication. His condition has deteriorated over time due to dementia. CAD: Will monitor closely. Cardiology consulted. Hyperlipidemia: Continue his medication when taking oral intake. Hypothyroidism: Continue with medication. Anemia likely of chronic disease: Will monitor closely. BPH: Continue with medication Time Spent Managing Pts Care (In Minutes): 55
[2018-07-06] MEDS ORDERED: DEXTROSE 10%-WATER 500 ML IV ONE (11:24)
--- NOTE | 2018-07-06 12:47 | RAD REPORT ---
EXAM DESCRIPTION: [place] Single View07/06/2018 12:19 pm CLINICAL HISTORY: Chest pain COMPARISON: July 06, 2018 FINDINGS: The mild bilateral interstitial lung opacities appear resolved. The heart is mildly enlar ged. Postsurgical changes involve the chest. Pacemaker leads in place. PICC line with its tip in the super ior vena cava IMPRESSION: Interstitial pulmonary edema appears resolved
[2018-07-06] MEDS: PIPER/TAZO/NS 2.25gm 2.25 GM/50 ML BAG IV SCH ×2 (13:58→16:27)
--- NOTE | 2018-07-06 17:51 | P.CNS ---
Date of Consult: 07/06/18 Reason for Consult: BRITTANY Primary Care Provider: [facility] Chief Complaint: sepsis History of Present Illness: AN 82 yeas old male [place] resident with PMhx of CKD III baseline CR ~1.8 , CAD S/ P CABG , chronic systolic CHF EF 25-29%, DM II, HTN, Dementia, afib/flutter, pacemaker, COPD Pt was sent for syncopal episdoe , in ER BP was low , low Na Cr 4.3, recieved 2liters of NS pt cant remeber why he is in the hospital, currently denied chest pain, palpitation ,nausea or vomiting Allergies No Known Allergies Allergy (Verified 01/24/18 05:19) Home Medications: Acetaminophen [Tylenol] 2 tab PO Q6HP PRN 07/06/18 Atorvastatin Calcium [Lipitor] 80 mg PO BEDTIME 07/06/18 Buspirone HCl [Buspar] 10 mg PO DAILY 07/06/18 Cholecalciferol (Vitamin D3) [Vitamin D3] 2 tab PO DAILY 07/06/18 Clopidogrel Bisulfate [Plavix] 75 mg PO DAILY 07/06/18 Ergocalciferol (Vitamin D2) [Vitamin D2] 50,000 unit PO SEECOM 07/06/18 Furosemide [Lasix] 3 tab PO BID 07/06/18 Glimepiride [Amaryl] 2 mg PO DAILY 07/06/18 Insulin Glargine Human [Lantus] 10 unit SQ DAILY 07/06/18 Isosorbide Dinit [Isordil] 20 mg PO BID 07/06/18 Lactulose 30 ml PO BEDTIME 07/06/18 Levothyroxine Sodium 200 mcg PO DAILY 07/06/18 Linagliptin [Tradjenta] 5 mg PO DAILY 07/06/18 Losartan Potassium 25 mg PO BEDTIME 07/06/18 Memantine HCl [Namenda] 5 mg PO DAILY 07/06/18 Metoprolol Tartrate [Lopressor] 25 mg PO BID 07/06/18 Omeprazole 20 mg PO DAILY 07/06/18 Ondansetron [Zofran] 4 mg PO TIDP PRN 07/06/18 Ranolazine [Ranexa] 1,000 mg PO BID 07/06/18 Rivastigmine [Exelon] 1 each TD DAILY 07/06/18 Spironolactone [Aldactone] 50 mg PO BID 07/06/18 Tamsulosin [Flomax] 0.4 mg PO BEDTIME 07/06/18 - Past Medical/Surgical History Diabetic: Yes -: NIDDM -: PAcemaker -: afib per hx -: CAD -: chronic systolic CHF EF 25-29% -: Dementia -: hypothyroidism -: HTN -: Pneumonia -: COPD -: BPH -: angina -: pacemaker -: triple bypass - Family History Father Medical History: Heart disease - Social History Smoking Status: Unknown if ever smoked Alcohol use: No CD- Drugs: No Caffeine use: No Place of Residence: Residential Physical Examination Temp Pulse Resp BP Pulse Ox 97.6 F 60 21 H 107/45 L 100 07/06/18 16:00 07/06/18 17:00 07/06/18 17:00 07/06/18 17:00 07/06/18 17:00 General: Alert, In no apparent distress Neck: Supple, Without JVD or thyroid abnormality Respiratory: Clear to auscultation bilaterally, Normal air movement Cardiovascular: No edema, Regular rate/rhythm, Normal S1 S2 Gastrointestinal: Normal bowel sounds Laboratory Data (last 24 hrs) 07/05/18 18:20: PT 13.0 H, INR 1.10, APTT 30.8 07/05/18 18:20: WBC 14.6 H, Hgb 13.3 L, Hct 39.0 L, Plt Count 139 L 07/05/18 18:20: Sodium 131 L, Potassium 3.9, BUN 85 H, Creatinine 4.34 H, Glucose 129 H, Magnesium 2.7 H, Total Bilirubin 1.7 H, AST 91 H, ALT 37, Alkaline Phosphatase 68, Lipase 69 L 07/05/18 02:00: Troponin I Cancelled - Problems (1) Acute kidney injury superimposed on CKD Current Visit: Yes Status: Acute (2) CHF (congestive heart failure) Current Visit: No Status: Chronic Qualifiers: Heart failure type: systolic Heart failure chronicity: acute on chronic Qualified Code(s): I50.23 - Acute on chronic systolic (congestive) heart failure Conclusions/Impression: BRITTANY on CKD Due ti prernal azotemia and Septic shock now Pt overloaded will dc IVF will hold lasix for now ABd CT no hydro UA +3 bld, no prot will hold lasix , aldactone and losartan Rhabdomylosis hold stain trend Ck Hyponatremia resolved DM now BS on the low side start D10 if BS cont to be low CHF currently euvolemic will hold lasix , aldactone and losartan CAD Stable
[2018-07-06] MEDS: TAMSULOSIN 0.4 MG SR CAP PO SCH (20:41)
[2018-07-06] MEDS ORDERED: ATORVASTATIN 80 MG TAB PO SCH (21:00)
[2018-07-06] MEDS ORDERED: PIPER/TAZO/NS 3.375gm 3.375 GM/100 ML BAG IVPB SCH (21:00)
[2018-07-06] MEDS: DEXTROSE 10%-WATER 500 ML IV SCH (22:53)
[2018-07-07] MEDS: METRONIDAZOLE 500mg IVPB 500 MG/100 ML BAG IV SCH (01:22)
[2018-07-07] MEDS: PIPER/TAZO/NS 2.25gm 2.25 GM/50 ML BAG IV SCH ×3 (01:22→17:00)
[2018-07-07] MEDS: DEXTROSE 10%-WATER 500 ML IV SCH ×3 (02:45→21:15)
[2018-07-07 05:31] LABS: Absolute Lymphocytes (CBC) 1.3 K/uL (0.7-4.9); Absolute Monocytes 0.6 K/uL (0.1-1.3); Absolute Neutrophil 8.1 K/uL (1.8-8.0); Basophils % 0.1 % (0-1.3); Eosinophils % 0.1 % (0-4.4); Hematocrit 35.6 % (39.6-49.0); Lymphocytes % 12.9 % (15.3-44.8); MPV 9.4 fL (7.6-11.3); Monocytes % 6.1 % (3.3-12.3); RBC Red Blood Cell Count 3.87 M/uL (4.33-5.43)
[2018-07-07] MEDS: LEVOTHYROXINE SOD 0.1 MG TAB PO SCH (06:36)
[2018-07-07 07:03] LABS: Albumin 2.8 g/dL (3.4-5.0); Magnesium 2.2 mg/dL (1.8-2.4); Potassium 3.2 mmol/L (3.5-5.1); Protein, Total 6.1 g/dL (6.4-8.2); Thyroid Stimulating Hormone 0.021 uIU/mL (0.360-3.740)
[2018-07-07] MEDS: D50W 25 GM/50 ML SYRINGE IV PRN (07:06)
[2018-07-07] MEDS: INSULIN -REGULAR HUMAN 50 UNIT/0.5 ML ML SQ SCH ×4 (07:30→21:00)
--- NOTE | 2018-07-07 08:16 | RAD REPORT ---
EXAM DESCRIPTION: RAD - Chest Single View - 07/07/2018 7:01 am CLINICAL HISTORY: follow up CHF Chest pain. COMPARISON: Chest Single View dated 07/06/2018; Chest Single View dated 07/06/2018; Chest Single View dated 02/03/2018; Chest Single View dated 01/23/2018 FINDINGS: Portable technique limits examination quality. The lungs are grossly clear. The heart is mildly enlarged in size with a single lead pacer/defibrilla tor device. Sternotomy wires are present. Right-sided PICC line is unchanged. IMPRESSION: Stable chest since 07/06/2018.
--- NOTE | 2018-07-07 08:18 | P.CNS ---
Date of Consult: 07/07/18 [facility] Provider[facility] Chief Complaint: sepsis History of Present Illness: Patient is 82 years of age admitted with a syncopal attack low blood pressure from a [facility] his significant dementia as not really complain of any symptoms was vital signs are all stable patient had acute on chronic renal failure possible sepsis CK mildly elevated white count cultures negative so far is also hypoglycemic patient is a diabetic on multiple medications Allergies No Known Allergies Allergy (Verified 01/24/18 05:19) Home Medications: Acetaminophen [Tylenol] 2 tab PO Q6HP PRN 07/06/18 Atorvastatin Calcium [Lipitor] 80 mg PO BEDTIME 07/06/18 Buspirone HCl [Buspar] 10 mg PO DAILY 07/06/18 Cholecalciferol (Vitamin D3) [Vitamin D3] 2 tab PO DAILY 07/06/18 Clopidogrel Bisulfate [Plavix] 75 mg PO DAILY 07/06/18 Ergocalciferol (Vitamin D2) [Vitamin D2] 50,000 unit PO SEECOM 07/06/18 Furosemide [Lasix] 3 tab PO BID 07/06/18 Glimepiride [Amaryl] 2 mg PO DAILY 07/06/18 Insulin Glargine Human [Lantus] 10 unit SQ DAILY 07/06/18 Isosorbide Dinit [Isordil] 20 mg PO BID 07/06/18 Lactulose 30 ml PO BEDTIME 07/06/18 Levothyroxine Sodium 200 mcg PO DAILY 07/06/18 Linagliptin [Tradjenta] 5 mg PO DAILY 07/06/18 Losartan Potassium 25 mg PO BEDTIME 07/06/18 Memantine HCl [Namenda] 5 mg PO DAILY 07/06/18 Metoprolol Tartrate [Lopressor] 25 mg PO BID 07/06/18 Omeprazole 20 mg PO DAILY 07/06/18 Ondansetron [Zofran] 4 mg PO TIDP PRN 07/06/18 Ranolazine [Ranexa] 1,000 mg PO BID 07/06/18 Rivastigmine [Exelon] 1 each TD DAILY 07/06/18 Spironolactone [Aldactone] 50 mg PO BID 07/06/18 Tamsulosin [Flomax] 0.4 mg PO BEDTIME 07/06/18 - Past Medical/Surgical History Diabetic: Yes -: NIDDM -: PAcemaker -: afib per hx -: CAD -: chronic systolic CHF EF 25-29% -: Dementia -: hypothyroidism -: HTN -: Pneumonia -: COPD -: BPH -: angina -: pacemaker -: triple bypass - Family History Father Medical History: Heart disease - Social History Smoking Status: Unknown if ever smoked Alcohol use: No CD- Drugs: No Caffeine use: No Place of [facility]idence[facility] Review of Systems is unable to be obtained Physical Examination Temp Pulse Resp BP Pulse Ox 97.6 F 66 14 111/47 L 100 07/07/18 04:00 07/07/18 06:00 07/07/18 06:00 07/07/18 06:00 07/07/18 06:00 General: Alert, Cooperative Neck: Supple Respiratory: Clear to auscultation bilaterally Cardiovascular: No edema, Regular rate/rhythm Gastrointestinal: Normal bowel sounds, Soft and benign - Problems (1) Sepsis Current Visit: Yes Status: Acute Plan: Patient is 82 years of age with underlying dementia a [facility] admitted with a syncopal attack acute on chronic renal failure hypoglycemia cultures are all negative white count is now normal no evidence of pneumonia on the chest x-ray shows some interstitial changes acute diverticulitis on the descending colon this on the CT scan report patient has no abdominal tenderness no diarrhea renal function is improving Dc Cipro and Flagyl continue with Zosyn transfer to the floor Dc Schwab catheter probably is Amaryl needs to be stopped I suspect his hypoglycemia is Amaryl induces still is hypoglycemic Qualifiers: Sepsis type: sepsis due to unspecified organism Qualified Code(s): A41.9 - Sepsis, unspecified organism
[2018-07-07] MEDS: HEPARIN 5000 UNIT/ML 1 ML VIAL SQ SCH (08:32)
[2018-07-07] MEDS: ISOSORBIDE DINIT 20 MG TAB PO SCH ×2 (08:33→21:11)
[2018-07-07] MEDS: CLOPIDOGREL 75 MG TABLET PO SCH (08:33)
[2018-07-07] MEDS: MEMANTINE HCL 10 MG TABLET PO SCH (08:33)
[2018-07-07] MEDS: BUSPIRONE HCL 5 MG TABLET PO SCH (08:33)
[2018-07-07] MEDS: RIVASTIGMINE 4.6 MG/24 HR PATCH TD SCH (08:33)
--- NOTE | 2018-07-07 09:07 | RAD REPORT ---
EXAM DESCRIPTION: US - Renal Ultrasound-Complete - 07/06/2018 10:37 pm CLINICAL HISTORY: evaluate for chronic renal disease Flank pain COMPARISON: Renal Ultrasound-Complete dated 01/24/2018 FINDINGS: Both kidneys are normal in size, shape and echotexture. The right kidney measures 9.6 x 5.0 x 4.6 cm. No hydronephrosis, focal mass or perinephric fluid. The left kidney measures 12.1 x 5.4 x 4.5 cm. No hydronephrosis, focal mass or perinephric fluid. Sma ll 10 x 7 mm cortical renal cysts suspected, benign appearance. The urinary bladder is incompletely distended without gross abnormality seen. IMPRESSION: Unremarkable renal sonogram.
--- NOTE | 2018-07-07 17:02 | P.PN ---
Subjective Date of Service: 07/07/18 Primary Care Provider: [facility] Chief Complaint: sepsis Patient seen and examined at bedside with RN. Chart reviewed. Case discussed with general surgery at this time at this time. No complaints to offer all. This morning patient however became hypoglycemic. With blood sugar in 39. Was given d 10 with increase in his blood sugar Review of Systems 10-point ROS is otherwise unremarkable Physical Examination - Vital Signs Temperature: 97.6 F Blood Pressure: 105/40 Pulse: 69 Respirations: 12 Pulse Ox (%): 100 - Physical Exam General: Alert, In no apparent distress HEENT: Atraumatic, PERRLA, EOMI Neck: Supple, JVD not distended Respiratory: Clear to auscultation bilaterally, Normal air movement Cardiovascular: Regular rate/rhythm, Normal S1 S2 Gastrointestinal: Normal bowel sounds, No tenderness Musculoskeletal: No tenderness Integumentary: No rashes Neurological: Normal speech, Normal tone, Normal affect Lymphatics: No axilla or inguinal lymphadenopathy - Studies Medications List Reviewed: Yes Assessment And Plan - Current Problems (Diagnosis) (1) Septic shock Onset Date: 07/07/18 Current Visit: Yes Status: Resolved Plan: Septic shock most likely secondary to colitis versus UTI -now Resolved -currently on IV antibiotics. -IV Zosyn will continue at this time -Currently Off Levophed no pressure support require (2) Diverticulitis Onset Date: 07/07/18 Current Visit: Yes Status: Acute Plan: Diverticulitis noted on abdominal CT -denies having an abdominal pain diarrhea or any other worsening of symptoms -On Cipro and flagyl for now (3) BPH (benign prostatic hyperplasia) Onset Date: 12/31/17 Current Visit: No Status: Chronic Qualifiers: Lower urinary tract symptom presence: symptoms absent Qualified Code(s): N40.0 - Benign prostatic hyperplasia without lower urinary tract symptoms (4) CAD (coronary artery disease) Onset Date: 12/31/17 Current Visit: No Status: Chronic Qualifiers: Coronary Disease-Associated Artery/Lesion type: [place] artery [place] vs. transplanted heart: [place] heart Associated angina: without angina Qualified Code(s): I25.10 - Atherosclerotic heart disease of [place] coronary artery without angina pectoris (5) CHF (congestive heart failure) Current Visit: No Status: Chronic Qualifiers: Heart failure type: systolic Heart failure chronicity: acute on chronic Qualified Code(s): I50.23 - Acute on chronic systolic (congestive) heart failure (6) Chronic renal disease Onset Date: 12/31/17 Current Visit: No Status: Chronic Qualifiers: Chronic kidney disease stage: stage 3 (moderate) Qualified Code(s): N18.3 - Chronic kidney disease, stage 3 (moderate) (7) Dementia Onset Date: 12/31/17 Current Visit: No Status: Chronic Qualifiers: Dementia type: unspecified type Dementia behavioral disturbance: without behavioral disturbance Qualified Code(s): F03.90 - Unspecified dementia without behavioral disturbance (8) Diabetes mellitus Onset Date: 10/21/17 Current Visit: No Status: Chronic Plan: Currently hyperglycemic most likely secondary to diabetic medication -on D5 W at this time. Will continue to monitor closely in ICU anticipate transfer to the regular floor in next 24-48 hr falls Qualifiers: Diabetes mellitus type: type 2 Diabetes mellitus [place] insulin use: without longterm use Diabetes mellitus complication status: with unspecified complications Qualified Code(s): E11.8 - Type 2 diabetes mellitus with unspecified complications (9) GERD (gastroesophageal reflux disease) Onset Date: 01/27/18 Current Visit: No Status: Chronic Qualifiers: Esophagitis presence: without esophagitis Qualified Code(s): K21.9 - Gastro -esophageal reflux disease without esophagitis (10) History of pacemaker Current Visit: No Status: Chronic (11) Hyperlipidemia Onset Date: 10/21/17 Current Visit: No Status: Chronic Qualifiers: Hyperlipidemia type: mixed hyperlipidemia Qualified Code(s): E78.2 - Mixed hyperlipidemia (12) Hypothyroidism Onset Date: 10/21/17 Current Visit: No Status: Chronic Qualifiers: Hypothyroidism type: acquired Qualified Code(s): E03.9 - Hypothyroidism, unspecified Discharge Plan: Home Plan to discharge in: 48 Hours - Code Status/Comfort Care Code Status Assessed: Yes Physician Review Additional Text: Plan: Septic shock with acute left lower quadrant diverticulitis: Patient stable this time. Continue with IV antibiotic therapy. Blood and urine cultures obtained. Patient now on Levophed. Case discussed with nephrology. Will discontinue IV fluids due to heart failure. Will monitor lab, vitals closely. Pulmonology consulted further recommendation. Cardiology and GI also consulted. I did speak to the patient's power of claim attorney. POA mentions patient has been declining in health over time due to his dementia. Advanced directives address in detail. Patient is DNR. Will change code status. Will monitor closely. If his condition does not improve will need to consider possible hospice. I will turn the service over to Dr. Christensen tomorrow. I will go over the plan of care with her. 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 Will try to wean off. Renal ultrasound ordered. Case discussed with Nephrology Atrial fibrillation/atrial flutter with history of pacemaker: Cardiology has evaluated patient. Will check echocardiogram. Cardiology has asked for pacemaker to be interrogated. Acute on Chronic systolic CHF: Will hold IV fluids. Patient will continue with diuresis. Echocardiogram ordered. Continue with cardiology recommendation. Diabetes mellitus type 2 with hypoglycemia: Sliding scale in place. Patient may require D 10 if with continue low blood sugar. History of hypertension: Hold blood pressure medication at this time. Will monitor closely. Wean off Levophed. Alzheimer's dementia, advanced: Continue with medication. His condition has deteriorated over time due to dementia. CAD: Will monitor closely. Cardiology consulted. Hyperlipidemia: Continue his medication when taking oral intake. Hypothyroidism: Continue with medication. Anemia likely of chronic disease: Will monitor closely. BPH: Continue with medication Critical Care: Yes
[2018-07-07] MEDS: metroNIDAZOLE 500 MG TABLET PO SCH ×2 (17:41→23:41)
[2018-07-07] MEDS: CIPROFLOXACIN HCL 500 MG TAB PO SCH (21:10)
[2018-07-07] MEDS: TAMSULOSIN 0.4 MG SR CAP PO SCH (21:11)
[2018-07-07] MEDS ORDERED: THIAMINE 200 MG/2 ML INJ IVP ONE (23:11)
[2018-07-07] MEDS ORDERED: D5 0.9 NS 1,000 ML IV SCH (23:45)
--- NOTE | 2018-07-08 02:22 | CON ---
Date of Consultation: 07/06/2018 Reason For Consultation: Syncope. History Of Present Illness: Mr. Ashford is an 82-year-old white male. He is known to us from previous office visits and admission. He has an extensive past medical history including coronary artery dise ase, anxiety, atrial fibrillation, benign prostatic hypertrophy, congestive heart failure, COPD, dimas ntia, diabetes, hypertension, dyslipidemia, AICD, hypothyroidism, and history of pneumonia. He came in basically with what sounds like a syncope. However, he was found to have diverticulitis, sepsis, bradycardia and was placed on Levophed. He denied any chest pain, denied any vomiting but had nausea . Denied any diaphoresis or shortness of breath. He denied any palpitations. He was found to have an atrial flutter baseline with pacemaker beating only at 40. AICD check showed a single lead defibr illator set at a low rate of 40. This was increased to 60 hoping to improve his symptoms and blood p ressure. No AICD shock detected. Past Medical History: As stated above. Allergies: NONE. Review of Systems: Negative. Social History: Negative. Family History: Noncontributory. Medications: Include spironolactone, Lipitor, aspirin, Plavix, glimepiride, Imdur, insulin, Lasix, S ynthroid, losartan, metoprolol, Namenda, Prilosec, Ranexa, tamsulosin, and Tradjenta. Physical Examination: General: He was hypotensive when I saw him. Heart rate is 60. Afebrile. No acute distress. Paced rhythm. HEENT: Negative. Neck: Supple without any lymphadenopathy, JVD, thyromegaly, or bruit. Chest: Clear to auscultation and percussion. Cardiac: Revealed a paced rhythm. No gallops, murmurs, or rubs. Abdomen: Tender with good bowel sounds. No hepatosplenomegaly. Extremities: Revealed no clubbing, cyanosis. He had trace edema. Neurologic: He was slightly demented but alert and oriented to name and place. Skin: Dry and intact. Pulses in the dorsalis pedis and posterior tibial were present bilaterally an d symmetrically. Diagnostic Data: Showed a creatinine of 2.70. White count was 15,000. Initial creatinine was 3.55. His glucose initially was 38. His troponin was 0.19. His TSH was 0.021. His procalcitonin is 2.8 1. Chest x-ray was unremarkable. EKG showed paced rhythm. Impression And Plan: 1.Syncope secondary to diverticulitis and hypotension. On Levophed now, improving. He is also on a ntibiotics. His syncope is noncardiac. 2.Status post single-chamber AICD with low rate at 40 that was increased to 60. No AICD shocks dete cted. 3.Renal insufficiency stage IV. Renal is following. 4.Anxiety. 5.Atrial fibrillation, chronic. 6.History of coronary artery disease. 7.History of congestive heart failure. 8.History of chronic obstructive pulmonary disease. 9.History of dementia. 10.History of diabetes. 11.Dyslipidemia, well controlled. 12.Hypertension, now hypotensive. 13.Hypothyroidism. Now the TSH is almost 0. His thyroid level needs to be adjusted. At this point, I certainly would not recommend any further cardiac workup on Mr. Ashford. Echocardiography was done in October of 2017 showing an ejection fraction 25 to 29%. No need to repeat t he echo. He had a stress test in October of 2017 showing an ejection fraction of 18% without any ischemi a. No need to repeat the stress test. I would continue IV antibiotics, Levophed for now. Defibrill ator rate has been adjusted. I would watch his I's and O's and watch how much fluid he takes in so h e does not go into fulminant congestive heart failure. I would continue as is his cardiac medicines for now. Adjust the thyroid level. I will continue to follow him. VANESA/OK Voice ID: [id number] Report ID: [id number]
--- NOTE | 2018-07-08 03:46 | PN ---
Date of Progress Note: 07/07/2018 Chief Complaint: Acute kidney injury with superimposed chronic kidney disease. History Of Present Illness: The patient was found to have moderately severe nonoliguric acute kidney injury. Creatinine level was up to 4.34, BUN 85. The patient has congestive heart failure exacerba tion and he has chronic systolic dysfunction, ejection fraction 25% to 30%, atrial fibrillation and f lutter, diabetes mellitus, and hypertension. He presented to the hospital because of syncopal episod e. He received 2 L of normal saline for blood pressure support in the emergency room. Review of Systems: The patient denies complaints today. He is feeling better. Physical Examination: Lungs: Few crackles at bases. Heart: S1, S2. Abdomen: Soft, benign. Extremities: Mild ankle edema. Laboratory Data: Blood work; sodium 135, potassium 3.2, chloride 99, CO2 27, BUN 66, creatinine 2.7, glucose 39, calcium 8.4. Impression And Plan: 1.Acute kidney injury, severe, nonoliguric. The patient was found to have nonoliguric acute tubular necrosis with renal hypoperfusion secondary to hypotension and possible sepsis. Continue IV fluids. 2.Chronic congestive heart failure with systolic dysfunction. Monitor electrolytes. Lasix on hold because of acute kidney injury. 3.Hyponatremia, mild. Continue normal saline hydration to prevent hypotension. 4.Possible sepsis. Monitor blood culture and adjust antibiotics according to renal function. 5.Diabetes mellitus. Hypoglycemia. Continue IV fluids with dextrose. 6.Congestive heart failure. Hold Lasix, Aldactone, and losartan to prevent renal hypoperfusion and electrolyte abnormalities. EB/MODL Voice ID: [id number] Report ID: [id number]
[2018-07-08 05:00] LABS: Absolute Lymphocytes (CBC) 1.4 K/uL (0.7-4.9); Absolute Monocytes 0.5 K/uL (0.1-1.3); Absolute Neutrophil 5.1 K/uL (1.8-8.0); Basophils % 0.2 % (0-1.3); Eosinophils % 0.6 % (0-4.4); Hematocrit 35.3 % (39.6-49.0); Lymphocytes % 19.4 % (15.3-44.8); MPV 9.4 fL (7.6-11.3); Monocytes % 6.9 % (3.3-12.3); RBC Red Blood Cell Count 3.82 M/uL (4.33-5.43)
[2018-07-08 05:31] LABS: Albumin 2.7 g/dL (3.4-5.0); Bilirubin Total 1.1 mg/dL (0.2-1.0); Potassium 3.2 mmol/L (3.5-5.1); Protein, Total 5.9 g/dL (6.4-8.2)
[2018-07-08] MEDS: metroNIDAZOLE 500 MG TABLET PO SCH ×3 (06:02→18:07)
[2018-07-08] MEDS: LEVOTHYROXINE SOD 0.1 MG TAB PO SCH (06:02)
[2018-07-08] MEDS: D50W 25 GM/50 ML SYRINGE IV PRN (07:07)
[2018-07-08] MEDS: INSULIN -REGULAR HUMAN 50 UNIT/0.5 ML ML SQ SCH ×4 (07:30→21:00)
--- NOTE | 2018-07-08 08:14 | ECHO ---
HEIGHT: 5 ft 8 in WEIGHT: 153 lb 1.6 oz DATE OF STUDY: 07/07/[address]: Betito Polk DO 2-DIMENSIONAL: YES M.MODE: YES DOPPLER: YES COLOR FLOW: YES TDS: PORTABLE: DEFINITY: BUBBLE STUDY: DIAGNOSIS: CONGESTIVE HEART FAILURE CARDIAC HISTORY: CATHERIZATION: NO SURGERY: YES PROSTHETIC VALVE: NO PACEMAKER: YES MEASUREMENTS (cm) DIASTOLIC (NORMALS) SYSTOLIC (NORMALS) IVSd 1.2 (0.6-1.2) LA Diam 4.5 (1.9-4.0) LVEF 24% LVIDd 5.2 (3.5-5.7) LVIDs 4.6 (2.0-3.5) %FS 11% LVPWd 1.2 (0.6-1.2) Ao Diam 3.4 (2.0-3.7) 2 DIMENSIONAL ASSESSMENT: RIGHT ATRIUM: NORMAL LEFT ATRIUM: DILATED RIGHT VENTRICLE: PACER LEFT VENTRICLE: NORMAL SIZE TRICUSPID VALVE: NORMAL MITRAL VALVE: MITRAL ANNULAR CALCIFICATION PULMONIC VALVE: NORMAL AORTIC VALVE: SCLEROSIS PERICARDIAL EFFUSION: NONE AORTIC ROOT: NORMAL LEFT VENTRICULAR WALL MOTION: SEVERE GLOBAL HYPOKINESIS DOPPLER/COLOR FLOW: MIDL TRICUSPID AND MITRAL REGURGITATION. COMMENTS: SEVERE GLOBAL HYPOKINESIS EJECTION FRACTION 24%. MILD MITRAL AND TRICUSPID REGURGITATION. LEFT ATRIAL ENLARGEMENT. PACER IN RIGHT VENTRICULAR APEX. TECHNOLOGIST: MARIA RICHTER
[2018-07-08] MEDS: DEXTROSE 10%-WATER 500 ML IV SCH (08:45)
[2018-07-08] MEDS: MEMANTINE HCL 10 MG TABLET PO SCH (10:18)
[2018-07-08] MEDS: THIAMINE 200 MG/2 ML INJ IVP SCH (10:18)
[2018-07-08] MEDS: CIPROFLOXACIN HCL 500 MG TAB PO SCH (10:19)
[2018-07-08] MEDS: CLOPIDOGREL 75 MG TABLET PO SCH (10:19)
[2018-07-08] MEDS: ISOSORBIDE DINIT 20 MG TAB PO SCH ×2 (10:19→20:44)
[2018-07-08] MEDS: BUSPIRONE HCL 5 MG TABLET PO SCH (10:22)
[2018-07-08] MEDS: RIVASTIGMINE 4.6 MG/24 HR PATCH TD SCH (10:23)
[2018-07-08] MEDS ORDERED: POTASSIUM CL SA 10 MEQ TAB PO SCH (13:45)
--- NOTE | 2018-07-08 14:26 | P.PN ---
Subjective Date of Service: 07/08/18 Primary Care Provider: correction Chief Complaint: sepsis Patient seen and examined at bedside with RN. Chart reviewed. Case discussed with general surgery at this time at this time. No complaints to offer all. Patient continues to be hypoglycemic overnight. Currently on D5W at 40cc/hr. Pt remains asymptomatic. Review of Systems 10-point ROS is otherwise unremarkable Physical Examination - Vital Signs Temperature: 97.2 F Blood Pressure: 99/54 Pulse: 73 Respirations: 18 Pulse Ox (%): 91 - Physical Exam General: Alert, In no apparent distress HEENT: Atraumatic, PERRLA, EOMI Neck: Supple, JVD not distended Respiratory: Clear to auscultation bilaterally, Normal air movement Cardiovascular: Regular rate/rhythm, Normal S1 S2 Gastrointestinal: Normal bowel sounds, No tenderness Musculoskeletal: No tenderness Integumentary: No rashes Neurological: Normal speech, Normal tone, Normal affect Lymphatics: No axilla or inguinal lymphadenopathy - Studies Medications List Reviewed: Yes Assessment And Plan - Current Problems (Diagnosis) (1) Hypoglycemia Current Visit: Yes Status: Acute Plan: Hypoglycemia most likely secondary to diabetic medication. BS at 49 this AM. -on D5W at this time. Will Titrate down as BS tolerated. -Will continue to monitor closely in ICU anticipate transfer to the regular floor in next 24-48 hr. (2) Septic shock Onset Date: 07/07/18 Current Visit: Yes Status: Resolved Plan: Septic shock most likely secondary to Diverticulitis -now Resolved -currently on IV zosyn -Currently Off Levophed no pressure support require -blood culture and urine culture negative thus far (3) Diverticulitis Onset Date: 07/07/18 Current Visit: Yes Status: Acute Plan: Diverticulitis noted on abdominal CT -denies having an abdominal pain diarrhea or any other worsening of symptoms -on IV Zosyn will continue at this time (4) BPH (benign prostatic hyperplasia) Onset Date: 12/31/17 Current Visit: No Status: Chronic Qualifiers: Lower urinary tract symptom presence: symptoms absent Qualified Code(s): N40.0 - Benign prostatic hyperplasia without lower urinary tract symptoms (5) CAD (coronary artery disease) Onset Date: 12/31/17 Current Visit: No Status: Chronic Qualifiers: Coronary Disease-Associated Artery/Lesion type: [place] artery [place] vs. transplanted heart: [place] heart Associated angina: without angina Qualified Code(s): I25.10 - Atherosclerotic heart disease of [place] coronary artery without angina pectoris (6) CHF (congestive heart failure) Current Visit: No Status: Chronic Qualifiers: Heart failure type: systolic Heart failure chronicity: acute on chronic Qualified Code(s): I50.23 - Acute on chronic systolic (congestive) heart failure (7) Chronic renal disease Onset Date: 12/31/17 Current Visit: No Status: Chronic Qualifiers: Chronic kidney disease stage: stage 3 (moderate) Qualified Code(s): N18.3 - Chronic kidney disease, stage 3 (moderate) (8) Dementia Onset Date: 12/31/17 Current Visit: No Status: Chronic Qualifiers: Dementia type: unspecified type Dementia behavioral disturbance: without behavioral disturbance Qualified Code(s): F03.90 - Unspecified dementia without behavioral disturbance (9) Diabetes mellitus Onset Date: 10/21/17 Current Visit: No Status: Chronic Qualifiers: Diabetes mellitus type: type 2 Diabetes mellitus mcfp insulin use: without mcfp use Diabetes mellitus complication status: with unspecified complications Qualified Code(s): E11.8 - Type 2 diabetes mellitus with unspecified complications (10) GERD (gastroesophageal reflux disease) Onset Date: 01/27/18 Current Visit: No Status: Chronic Qualifiers: Esophagitis presence: without esophagitis Qualified Code(s): K21.9 - Gastro -esophageal reflux disease without esophagitis (11) History of pacemaker Current Visit: No Status: Chronic (12) Hyperlipidemia Onset Date: 10/21/17 Current Visit: No Status: Chronic Qualifiers: Hyperlipidemia type: mixed hyperlipidemia Qualified Code(s): E78.2 - Mixed hyperlipidemia (13) Hypothyroidism Onset Date: 10/21/17 Current Visit: No Status: Chronic Qualifiers: Hypothyroidism type: acquired Qualified Code(s): E03.9 - Hypothyroidism, unspecified Discharge Plan: Home Plan to discharge in: 48 Hours - Code Status/Comfort Care Code Status Assessed: Yes Critical Care: Yes
[2018-07-08] MEDS: PIPER/TAZO/NS 2.25gm 2.25 GM/50 ML BAG IV SCH (14:36)
--- NOTE | 2018-07-08 17:05 | P.PN ---
Subjective Date of Service: 07/08/18 Primary Care Provider: longterm Chief Complaint: sepsis Subjective: Improving Physical Examination - Vital Signs Temperature: 97.2 F Blood Pressure: 99/54 Pulse: 73 Respirations: 18 Pulse Ox (%): 91 - Studies Medications List Reviewed: Yes Assessment And Plan Physician Review Additional Text: Plan: Septic shock with acute left lower quadrant diverticulitis: Patient stable this time. Continue with IV antibiotic therapy. Blood and urine cultures obtained. Patient now on Levophed. Case discussed with nephrology. Will discontinue IV fluids due to heart failure. Will monitor lab, vitals closely. Pulmonology consulted further recommendation. Cardiology and GI also consulted. I did speak to the patient's power of litigation attorney associate. POA mentions patient has been declining in health over time due to his dementia. Advanced directives address in detail. Patient is DNR. Will change code status. Will monitor closely. If his condition does not improve will need to consider possible hospice. I will turn the service over to Dr. Christensen tomorrow. I will go over the plan of care with her. 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 Will try to wean off. Renal ultrasound ordered. Case discussed with Nephrology Atrial fibrillation/atrial flutter with history of pacemaker: Cardiology has evaluated patient. Will check echocardiogram. Cardiology has asked for pacemaker to be interrogated. Acute on Chronic systolic CHF: Will hold IV fluids. Patient will continue with diuresis. Echocardiogram ordered. Continue with cardiology recommendation. Diabetes mellitus type 2 with hypoglycemia: Sliding scale in place. Patient may require D 10 if with continue low blood sugar. History of hypertension: Hold blood pressure medication at this time. Will monitor closely. Wean off Levophed. Alzheimer's dementia, advanced: Continue with medication. His condition has deteriorated over time due to dementia. CAD: Will monitor closely. Cardiology consulted. Hyperlipidemia: Continue his medication when taking oral intake. Hypothyroidism: Continue with medication. Anemia likely of chronic disease: Will monitor closely. BPH: Continue with medication
[2018-07-08] MEDS: TAMSULOSIN 0.4 MG SR CAP PO SCH (20:44)
[2018-07-09] MEDS ORDERED: PIPER/TAZO/NS 2.25gm 2.25 GM/50 ML BAG ONE (00:14)
[2018-07-09] MEDS: metroNIDAZOLE 500 MG TABLET PO SCH ×4 (00:19→17:25)
[2018-07-09] MEDS: PIPER/TAZO/NS 2.25gm 2.25 GM/50 ML BAG IV SCH ×3 (00:25→17:00)
--- NOTE | 2018-07-09 02:35 | PN ---
Date of Progress Note: 07/08/2018 Subjective: The patient was admitted with sepsis, CHF exacerbation, found to have elevated BUN and c reatinine and hyponatremia. For that reason, we have been consulted. We managed to place the patien t originally on D5, but his sodium went down. For that reason, the patient was placed on D5 normal s valeria. We tried to taper it down gradually. Physical Examination: Vital Signs: When I saw the patient, blood pressure 148/68, pulse of 58. Chest: Faint crackles, bilateral bases. Heart: S1 and S2, regular. Abdomen: Soft and nontender. Extremities: Plus edema. Laboratory Data: Sodium 137, potassium 4.2, bicarb 27, BUN 7, and creatinine 0.9. Medications: Medications reviewed. The patient is on D5 normal saline at 40 per hour. Assessment And Plan: 1.Acute kidney injury secondary to cardiorenal, recovered, resolved. The patient is still on the we t side. We are going to continue on diuresis. We are going to continue current IV fluid. 2.Hyponatremia, secondary to dilutional. I am going to try to taper current IV fluid, then diurese, and will monitor. 3.Congestive heart failure, as above. 4.Deconditioning. Poor intake. We will follow up with the primary. RICKEY/KO Voice ID: [id number] Report ID: [id number]
[2018-07-09 04:55] LABS: Absolute Lymphocytes (CBC) 1.2 K/uL (0.7-4.9); Absolute Monocytes 0.5 K/uL (0.1-1.3); Absolute Neutrophil 4.1 K/uL (1.8-8.0); Basophils % 0.4 % (0-1.3); Hematocrit 34.2 % (39.6-49.0); Lymphocytes % 20.3 % (15.3-44.8); MPV 8.7 fL (7.6-11.3); Monocytes % 8.3 % (3.3-12.3); RBC Red Blood Cell Count 3.72 M/uL (4.33-5.43)
[2018-07-09 05:05] LABS: Albumin 2.7 g/dL (3.4-5.0); Bilirubin Total 1.3 mg/dL (0.2-1.0); Magnesium 2.2 mg/dL (1.8-2.4); Potassium 3.8 mmol/L (3.5-5.1); Protein, Total 5.8 g/dL (6.4-8.2)
[2018-07-09] MEDS: LEVOTHYROXINE SOD 0.1 MG TAB PO SCH (05:13)
[2018-07-09] MEDS: INSULIN -REGULAR HUMAN 50 UNIT/0.5 ML ML SQ SCH ×4 (07:30→20:46)
[2018-07-09] MEDS: MEMANTINE HCL 10 MG TABLET PO SCH (08:28)
[2018-07-09] MEDS: CIPROFLOXACIN HCL 500 MG TAB PO SCH (08:29)
[2018-07-09] MEDS: CLOPIDOGREL 75 MG TABLET PO SCH (08:29)
[2018-07-09] MEDS: ISOSORBIDE DINIT 20 MG TAB PO SCH ×2 (08:29→20:54)
[2018-07-09] MEDS: BUSPIRONE HCL 5 MG TABLET PO SCH (08:30)
[2018-07-09] MEDS: RIVASTIGMINE 4.6 MG/24 HR PATCH TD SCH (08:30)
[2018-07-09] MEDS: THIAMINE 200 MG/2 ML INJ IVP SCH (08:49)
--- NOTE | 2018-07-09 11:19 | RAD REPORT ---
EXAM DESCRIPTION: RAD - Chest Single View - 07/09/2018 11:06 am CLINICAL HISTORY: COPD Chest pain. COMPARISON: Chest Single View dated 07/07/2018; Chest Single View dated 07/06/2018; Chest Single View dated 07/06/2018; Chest Single View dated 02/03/2018 FINDINGS: Portable technique limits examination quality. The lungs are grossly clear. The heart is mildly prominent in size with a single lead pacer/ defibril lator device present heavy aortic atherosclerosis. Sternotomy wires are present. Right-sided PICC luis alberto e has tip in the SVC. IMPRESSION: No acute intrathoracic process suspected.
--- NOTE | 2018-07-09 13:33 | P.PN ---
Subjective Date of Service: 07/08/18 Primary Care Provider: residential Chief Complaint: sepsis, diverticulitis Subjective: Improving (Feels better without much abdominal pain. WBC decreased effectively with addition of Zosyn renal dosed. Tolerating CLs well.) Review of Systems 10-point ROS is otherwise unremarkable General: Weakness (Improved. ) Gastrointestinal: Abdominal Pain (Minimal now. ) Physical Examination - Vital Signs Temperature: 97.9 F Blood Pressure: 128/57 Pulse: 73 Respirations: 20 Pulse Ox (%): 98 - Physical Exam General: Alert, In no apparent distress, Oriented x2, Cooperative HEENT: Atraumatic, Normocephalic, PERRLA, EOMI Neck: Supple Respiratory: Normal air movement Cardiovascular: Normal pulses Gastrointestinal: Soft and benign, No tenderness, No rebound, No guarding Neurological: Dementia - Studies Medications List Reviewed: Yes Assessment And Plan - Current Problems (Diagnosis) (1) Abnormal CT of the abdomen Current Visit: Yes Status: Acute (2) Acute kidney injury superimposed on CKD Onset Date: 07/07/18 Current Visit: Yes Status: Acute (3) Diverticulitis Onset Date: 07/07/18 Current Visit: Yes Status: Acute Comment: Improved. (4) Sepsis Onset Date: 07/07/18 Current Visit: Yes Status: Acute Qualifiers: Sepsis type: sepsis due to unspecified organism Qualified Code(s): A41.9 - Sepsis, unspecified organism - Plan REC: 1) continue Zosyn (effective decrease of WBC with addition of this antibiotic) 2) increase diet CL to [place] 3) monitor labs Physician Review Additional Text: Plan: Septic shock with acute left lower quadrant diverticulitis: Patient stable this time. Continue with IV antibiotic therapy. Blood and urine cultures obtained. Patient now on Levophed. Case discussed with nephrology. Will discontinue IV fluids due to heart failure. Will monitor lab, vitals closely. Pulmonology consulted further recommendation. Cardiology and GI also consulted. I did speak to the patient's power of contracts attorney. POA mentions patient has been declining in health over time due to his dementia. Advanced directives address in detail. Patient is DNR. Will change code status. Will monitor closely. If his condition does not improve will need to consider possible hospice. I will turn the service over to Dr. Christensen tomorrow. I will go over the plan of care with her. 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 Will try to wean off. Renal ultrasound ordered. Case discussed with Nephrology Atrial fibrillation/atrial flutter with history of pacemaker: Cardiology has evaluated patient. Will check echocardiogram. Cardiology has asked for pacemaker to be interrogated. Acute on Chronic systolic CHF: Will hold IV fluids. Patient will continue with diuresis. Echocardiogram ordered. Continue with cardiology recommendation. Diabetes mellitus type 2 with hypoglycemia: Sliding scale in place. Patient may require D 10 if with continue low blood sugar. History of hypertension: Hold blood pressure medication at this time. Will monitor closely. Wean off Levophed. Alzheimer's dementia, advanced: Continue with medication. His condition has deteriorated over time due to dementia. CAD: Will monitor closely. Cardiology consulted. Hyperlipidemia: Continue his medication when taking oral intake. Hypothyroidism: Continue with medication. Anemia likely of chronic disease: Will monitor closely. BPH: Continue with medication
--- NOTE | 2018-07-09 15:56 | P.PN ---
Subjective Date of Service: 07/09/18 Primary Care Provider: [facility] Chief Complaint: sepsis, diverticulitis Patient seen and examined at bedside with RN. Chart reviewed. Case discussed with general surgery at this time at this time. No complaints to offer all. Doing well overall. No complaints to offer overnight pulse Review of Systems 10-point ROS is otherwise unremarkable Physical Examination - Vital Signs Temperature: 97.9 F Blood Pressure: 128/57 Pulse: 73 Respirations: 20 Pulse Ox (%): 98 - Physical Exam General: Alert, In no apparent distress HEENT: Atraumatic, PERRLA, EOMI Neck: Supple, JVD not distended Respiratory: Clear to auscultation bilaterally, Normal air movement Cardiovascular: Regular rate/rhythm, Normal S1 S2 Gastrointestinal: Normal bowel sounds, No tenderness Musculoskeletal: No tenderness Integumentary: No rashes Neurological: Normal speech, Normal tone, Normal affect Lymphatics: No axilla or inguinal lymphadenopathy - Studies Medications List Reviewed: Yes Assessment And Plan - Current Problems (Diagnosis) (1) Acute kidney injury superimposed on CKD Onset Date: 07/07/18 Current Visit: Yes Status: Acute Plan: He can most likely secondary to dehydration versus septic shock -BUN/creatinine improving today -continue with IV Lasix at this time -follow up with nephrology regarding discharge planning (2) Hypoglycemia Current Visit: Yes Status: Acute Plan: Hypoglycemia most likely secondary to diabetic medication. Now resolved -continue to monitor with ACHS (3) Septic shock Onset Date: 07/07/18 Current Visit: Yes Status: Resolved Plan: Septic shock most likely secondary to Diverticulitis -now Resolved -currently on IV zosyn -Currently Off Levophed no pressure support require -blood culture and urine culture negative thus far (4) Diverticulitis Onset Date: 07/07/18 Current Visit: Yes Status: Acute Plan: Diverticulitis noted on abdominal CT -denies having an abdominal pain diarrhea or any other worsening of symptoms -on IV Zosyn will continue at this time was switched to Cipro and Flagyl when Dc home (5) BPH (benign prostatic hyperplasia) Onset Date: 12/31/17 Current Visit: No Status: Chronic Qualifiers: Lower urinary tract symptom presence: symptoms absent Qualified Code(s): N40.0 - Benign prostatic hyperplasia without lower urinary tract symptoms (6) CAD (coronary artery disease) Onset Date: 12/31/17 Current Visit: No Status: Chronic Qualifiers: Coronary Disease-Associated Artery/Lesion type: [place] artery [place] vs. transplanted heart: [place] heart Associated angina: without angina Qualified Code(s): I25.10 - Atherosclerotic heart disease of [place] coronary artery without angina pectoris (7) CHF (congestive heart failure) Current Visit: No Status: Chronic Qualifiers: Heart failure type: systolic Heart failure chronicity: acute on chronic Qualified Code(s): I50.23 - Acute on chronic systolic (congestive) heart failure (8) Chronic renal disease Onset Date: 12/31/17 Current Visit: No Status: Chronic Qualifiers: Chronic kidney disease stage: stage 3 (moderate) Qualified Code(s): N18.3 - Chronic kidney disease, stage 3 (moderate) (9) Dementia Onset Date: 12/31/17 Current Visit: No Status: Chronic Qualifiers: Dementia type: unspecified type Dementia behavioral disturbance: without behavioral disturbance Qualified Code(s): F03.90 - Unspecified dementia without behavioral disturbance (10) Diabetes mellitus Onset Date: 10/21/17 Current Visit: No Status: Chronic Qualifiers: Diabetes mellitus type: type 2 Diabetes mellitus inspector dials insulin use: without shelter use Diabetes mellitus complication status: with unspecified complications Qualified Code(s): E11.8 - Type 2 diabetes mellitus with unspecified complications (11) GERD (gastroesophageal reflux disease) Onset Date: 01/27/18 Current Visit: No Status: Chronic Qualifiers: Esophagitis presence: without esophagitis Qualified Code(s): K21.9 - Gastro -esophageal reflux disease without esophagitis (12) History of pacemaker Current Visit: No Status: Chronic (13) Hyperlipidemia Onset Date: 10/21/17 Current Visit: No Status: Chronic Qualifiers: Hyperlipidemia type: mixed hyperlipidemia Qualified Code(s): E78.2 - Mixed hyperlipidemia (14) Hypothyroidism Onset Date: 10/21/17 Current Visit: No Status: Chronic Qualifiers: Hypothyroidism type: acquired Qualified Code(s): E03.9 - Hypothyroidism, unspecified - Plan Pending clinical improvement at this time. Will follow up with GI, nephrology, cardiology for appropriate discharge home. Physician Review Additional Text: Plan: Septic shock with acute left lower quadrant diverticulitis: Patient stable this time. Continue with IV antibiotic therapy. Blood and urine cultures obtained. Patient now on Levophed. Case discussed with nephrology. Will discontinue IV fluids due to heart failure. Will monitor lab, vitals closely. Pulmonology consulted further recommendation. Cardiology and GI also consulted. I did speak to the patient's power of maternity nurse. POA mentions patient has been declining in health over time due to his dementia. Advanced directives address in detail. Patient is DNR. Will change code status. Will monitor closely. If his condition does not improve will need to consider possible hospice. I will turn the service over to Dr. Christensen tomorrow. I will go over the plan of care with her. 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 Will try to wean off. Renal ultrasound ordered. Case discussed with Nephrology Atrial fibrillation/atrial flutter with history of pacemaker: Cardiology has evaluated patient. Will check echocardiogram. Cardiology has asked for pacemaker to be interrogated. Acute on Chronic systolic CHF: Will hold IV fluids. Patient will continue with diuresis. Echocardiogram ordered. Continue with cardiology recommendation. Diabetes mellitus type 2 with hypoglycemia: Sliding scale in place. Patient may require D 10 if with continue low blood sugar. History of hypertension: Hold blood pressure medication at this time. Will monitor closely. Wean off Levophed. Alzheimer's dementia, advanced: Continue with medication. His condition has deteriorated over time due to dementia. CAD: Will monitor closely. Cardiology consulted. Hyperlipidemia: Continue his medication when taking oral intake. Hypothyroidism: Continue with medication. Anemia likely of chronic disease: Will monitor closely. BPH: Continue with medication
--- NOTE | 2018-07-09 16:32 | PN ---
Date of Progress Note: 07/09/2018 Subjective: The patient is doing better. No nausea. No vomiting. More awake today. Objective: Vital Signs: When I saw the patient, blood pressure 128/57, pulse of 73. The patient santamaria d urine output of 2300. CHEST: Faint crackles on the base. Heart: S1-S2 systolic murmur. Abdomen: Soft, nontender. Extremities: Plus edema. Laboratory Data: WBC 5.9, H and H 11.9/34.2. Sodium 136, potassium 3.8, bicarb 29, BUN 39, creatini ne 1.8, calcium 8.4, magnesium 2.2. Current Medications: The patient on include, 1.Cipro. 2.Metronidazole 500 q.6. 3.Zosyn. 4.Rivastigmine. 5.Flomax. 6.Plavix. 7.Isosorbide. 8.Zofran. 9.Levothyroxine. Assessment And Plan: 1.Acute kidney injury secondary to cardiorenal secondary to congestive heart failure, on the recover y phase. Looked to me still on the wet side. I am going to go ahead and discontinue all IV fluid an d we will resume gentle diuresis. 2.Hypertension we will utilize the blood pressure for more diuresis. 3.Hyponatremia, secondary to dilutional. We will discontinue IV fluids. Start gentle diuresis and we will follow up. CLIFFORD Voice ID: [id number] Report ID: [id number]
[2018-07-09] MEDS: TAMSULOSIN 0.4 MG SR CAP PO SCH (20:54)
[2018-07-10] MEDS: metroNIDAZOLE 500 MG TABLET PO SCH ×3 (01:10→12:00)
[2018-07-10] MEDS: PIPER/TAZO/NS 2.25gm 2.25 GM/50 ML BAG IV SCH ×2 (01:10→09:00)
[2018-07-10] MEDS ORDERED: NA CHLORIDE 0.9% 50 ML ONE (01:24)
[2018-07-10 05:00] LABS: Potassium 3.7 mmol/L (3.5-5.1)
[2018-07-10 05:46] VITALS: BMI 22.5
[2018-07-10] MEDS: LEVOTHYROXINE SOD 0.1 MG TAB PO SCH (05:50)
[2018-07-10] MEDS ORDERED: KCL 20 MEQ/100 mL IVPB 20 MEQ/100 ML BAG IV SCH (07:00)
[2018-07-10] MEDS: INSULIN -REGULAR HUMAN 50 UNIT/0.5 ML ML SQ SCH ×2 (07:30→12:00)
[2018-07-10] MEDS: CIPROFLOXACIN HCL 500 MG TAB PO SCH (08:33)
[2018-07-10] MEDS: THIAMINE 200 MG/2 ML INJ IVP SCH (08:34)
[2018-07-10] MEDS: ISOSORBIDE DINIT 20 MG TAB PO SCH (08:34)
[2018-07-10] MEDS: RIVASTIGMINE 4.6 MG/24 HR PATCH TD SCH (08:35)
[2018-07-10] MEDS: MEMANTINE HCL 10 MG TABLET PO SCH (08:36)
[2018-07-10] MEDS: BUSPIRONE HCL 5 MG TABLET PO SCH (08:36)
[2018-07-10] MEDS: CLOPIDOGREL 75 MG TABLET PO SCH (08:37)
[2018-07-10] MEDS ORDERED: FUROSEMIDE 40 MG/4 ML VIAL IV SCH (09:00)
[2018-07-10] MEDS ORDERED: FUROSEMIDE 20 MG/ 2ML VIAL IV SCH (09:00)
[2018-07-10 10:15] VITALS: O2SAT 97
[2018-07-10 12:14] VITALS: BP 113/53; TEMP 99.2
--- NOTE | 2018-07-10 14:04 | P.PN ---
Subjective Date of Service: 07/10/18 Primary Care Provider: alf Chief Complaint: sepsis, diverticulitis Subjective: Improving Cr down to baseline no edema VS stable cleared for discharge from nephrology point of view Physical Examination - Vital Signs Temperature: 99.2 F Blood Pressure: 113/53 Pulse: 72 Respirations: 16 Pulse Ox (%): 97 - Physical Exam General: Alert, In no apparent distress HEENT: Atraumatic Neck: Supple, Without JVD or thyroid abnormality Respiratory: Clear to auscultation bilaterally Cardiovascular: No edema, Regular rate/rhythm, Normal S1 S2 Gastrointestinal: Normal bowel sounds, Soft and benign - Studies Medications List Reviewed: Yes Assessment And Plan - Current Problems (Diagnosis) (1) Acute kidney injury superimposed on CKD Onset Date: 07/07/18 Current Visit: Yes Status: Acute (2) CHF (congestive heart failure) Current Visit: No Status: Chronic Qualifiers: Heart failure type: systolic Heart failure chronicity: acute on chronic Qualified Code(s): I50.23 - Acute on chronic systolic (congestive) heart failure - Plan BRITTANY on CKD Due to prernal azotemia and Septic shock Cr down to baseline Rhabdomylosis hold stain Hyponatremia resolved DM as per primary CHF Cont lasix
--- NOTE | 2018-07-10 16:26 | P.DS ---
Admission Date: 07/05/18 Discharge Date: 07/10/18 [facility] Provider: [facility] Disposition: TRANSFER TO SNF - REHAB Discharge Condition: GOOD Reason for Admission: sepsis, diverticulitis Consultations: Cardiology GI Nephrology - Problems (1) Septic shock Onset Date: 07/07/18 Status: Resolved (2) Acute kidney injury superimposed on CKD Onset Date: 07/07/18 Status: Acute (3) Hypoglycemia Status: Acute (4) Diverticulitis Onset Date: 07/07/18 Status: Acute (5) BPH (benign prostatic hyperplasia) Onset Date: 12/31/17 Status: Chronic Qualifiers: Lower urinary tract symptom presence: symptoms absent Qualified Code(s): N40.0 - Benign prostatic hyperplasia without lower urinary tract symptoms (6) CAD (coronary artery disease) Onset Date: 12/31/17 Status: Chronic Qualifiers: Coronary Disease-Associated Artery/Lesion type: [place] artery [place] vs. transplanted heart: [place] heart Associated angina: without angina Qualified Code(s): I25.10 - Atherosclerotic heart disease of [place] coronary artery without angina pectoris (7) CHF (congestive heart failure) Status: Chronic Qualifiers: Heart failure type: systolic Heart failure chronicity: acute on chronic Qualified Code(s): I50.23 - Acute on chronic systolic (congestive) heart failure (8) Chronic renal disease Onset Date: 12/31/17 Status: Chronic Qualifiers: Chronic kidney disease stage: stage 3 (moderate) Qualified Code(s): N18.3 - Chronic kidney disease, stage 3 (moderate) (9) Dementia Onset Date: 12/31/17 Status: Chronic Qualifiers: Dementia type: unspecified type Dementia behavioral disturbance: without behavioral disturbance Qualified Code(s): F03.90 - Unspecified dementia without behavioral disturbance (10) Diabetes mellitus Onset Date: 10/21/17 Status: Chronic Qualifiers: Diabetes mellitus type: type 2 Diabetes mellitus assisted insulin use: without assisted use Diabetes mellitus complication status: with unspecified complications Qualified Code(s): E11.8 - Type 2 diabetes mellitus with unspecified complications (11) GERD (gastroesophageal reflux disease) Onset Date: 01/27/18 Status: Chronic Qualifiers: Esophagitis presence: without esophagitis Qualified Code(s): K21.9 - Gastro -esophageal reflux disease without esophagitis (12) History of pacemaker Status: Chronic (13) Hyperlipidemia Onset Date: 10/21/17 Status: Chronic Qualifiers: Hyperlipidemia type: mixed hyperlipidemia Qualified Code(s): E78.2 - Mixed hyperlipidemia (14) Hypothyroidism Onset Date: 10/21/17 Status: Chronic Qualifiers: Hypothyroidism type: acquired Qualified Code(s): E03.9 - Hypothyroidism, unspecified Brief History of Present Illness: Mr Ashford is an 82 yeas old male with multiple mediacal problems including CAD, chronic systolic CHF EF 25-29%, DM II, HTN, Dementia, afib/flutter, pacemaker, COPD who is a resident of a local longterm. This afternoon the patient had a syncopal episode while he was in hes wheelchair. His initial BP was 75/46. He was put in [place], then his blood pressure improved. No known history of fever. Unfortunately the patient is not a good historian to add more details. In ER the patient remain hypotensive, lab work shows leukocytosis, lactate and procalcitonin are pending, elevated creatinine, CK, trop I. CT abd/pelvis remarkable for noncomplicated diverticulitis. Hospital Course: Overall during the hospital stay patient remained stable Patient was initially admitted to the hospital for syncopal episode was found to have septic shock, diverticulitis, BRITTANY, hypoglycemia and was ruled out for urinary tract infection. Patient was initially admitted to the hospital for for syncopal episode was was most likely secondary to hypotension most likely secondary to sepsis secondary to diverticulitis. Patient had acute left-sided diverticulitis which he was started on IV Zosyn Cipro and Flagyl 4. GI was consulted who recommended the patient be continued on IV Zosyn while here in the hospital. Patient had marked improvement in his symptoms. Initially for septic shock with hypotension. Patient was placed on IV Levophed and was successfully weaned off the pressor once his blood pressure stabilized. Patient's septic shock resolved and patient was transferred to the regular floor for further care. Reculture was negative for UTI blood culture was negative bacteremia chest x- ray remained clear to. While here in the hospital due to septic shock and decrease organ perfusion patient also had a KI secondary to acute tubular necrosis. Nephrology was consulted who recommended patient initially be started on IV fluids however the and was switched over to Lasix given the history of CHF. Patient's kidney function did improve while here in the hospital and his BUN and creatinine was back to his baseline. While here in the hospital patient also had hypoglycemic episode most likely secondary to his diabetic medication. Which was then held here in the hospital patient was placed on sliding scale. Patient's hypoglycemia did resolve while here in the hospital and patient did well overall. All other chronic conditions remained stable while patient was here in the hospital. Patient then was transferred back to [facility] where he is a resident for long-term care. Patient was asked to continue taking his Cipro and Flagyl for total of 14 days. Patient was asked to follow up with GI in about 1-2 days post discharge. Patient was also asked to continue taking his Lasix however was asked to stop taking his losartan, metoprolol, spironolactone as patient was getting hypotensive most likely secondary to sepsis versus polypharmacy. These medications will be addressed in detail with nephrology at the followup appointment if the day will be needed to restart a will be done by nephrology at that time. Lasix was decreased down to 20 mg daily. Vital Signs/Physical Exam: Temp Pulse Resp BP Pulse Ox 99.2 F 72 16 113/53 L 97 07/10/18 14:04 07/10/18 14:04 07/10/18 14:04 07/10/18 14:04 07/10/18 14:04 General: Alert, In no apparent distress HEENT: Atraumatic, PERRLA, EOMI Neck: Supple, JVD not distended Respiratory: Clear to auscultation bilaterally, Normal air movement Cardiovascular: Regular rate/rhythm, Normal S1 S2 Gastrointestinal: Normal bowel sounds, No tenderness Musculoskeletal: No tenderness Integumentary: No rashes Neurological: Normal speech, Normal tone, Normal affect Lymphatics: No axilla or inguinal lymphadenopathy Laboratory Data at Discharge: WBC 5.9 K/uL (4.3-10.9) D 07/09/18 04:41 Hgb 11.9 g/dL (13.6-17.9) L 07/09/18 04:41 Hct 34.2 % (39.6-49.0) L 07/09/18 04:41 Plt Count 104 K/uL (152-406) L D 07/09/18 04:41 PT 13.0 SECONDS (9.5-12.5) H 07/05/18 18:20 INR 1.10 07/05/18 18:20 APTT 30.8 SECONDS (24.3-36.9) 07/05/18 18:20 Sodium 138 mmol/L (136-145) 07/10/18 04:20 Potassium 3.7 mmol/L (3.5-5.1) 07/10/18 04:20 BUN 38 mg/dL (7-18) H 07/10/18 04:20 Creatinine 1.76 mg/dL (0.55-1.3) H 07/10/18 04:20 Glucose 141 mg/dL (74-106) H 07/10/18 04:20 Magnesium 2.2 mg/dL (1.8-2.4) 07/09/18 04:41 Total Bilirubin 1.3 mg/dL (0.2-1.0) H 07/09/18 04:41 AST 42 U/L (15-37) H 07/09/18 04:41 ALT 34 U/L (12-78) 07/09/18 04:41 Alkaline Phosphatase 56 U/L (45-117) 07/09/18 04:41 Troponin I 0.19 ng/mL (0.0-0.045) H 07/06/18 01:52 Lipase 69 U/L (73-393) L 07/05/18 18:20 Home Medications: Acetaminophen [Tylenol] 2 tab PO Q6HP PRN 07/06/18 Atorvastatin Calcium [Lipitor] 80 mg PO BEDTIME 07/06/18 Buspirone HCl [Buspar] 10 mg PO DAILY 07/06/18 Cholecalciferol (Vitamin D3) [Vitamin D3] 2 tab PO DAILY 07/06/18 Clopidogrel Bisulfate [Plavix*] 75 mg PO DAILY 07/06/18 Ergocalciferol (Vitamin D2) [Vitamin D2] 50,000 unit PO SEECOM 07/06/18 Glimepiride [Amaryl*] 2 mg PO DAILY 07/06/18 Insulin Glargine Human [Lantus*] 10 unit SQ DAILY 07/06/18 Isosorbide Dinit [Isordil*] 20 mg PO BID 07/06/18 Lactulose 30 ml PO BEDTIME 07/06/18 Levothyroxine Sodium 200 mcg PO DAILY 07/06/18 Linagliptin [Tradjenta] 5 mg PO DAILY 07/06/18 Memantine HCl [Namenda] 5 mg PO DAILY 07/06/18 Metoprolol Tartrate [Lopressor*] 25 mg PO BID 07/06/18 Omeprazole 20 mg PO DAILY 07/06/18 Rivastigmine [Exelon] 1 each TD DAILY 07/06/18 Tamsulosin [Flomax*] 0.4 mg PO BEDTIME 07/06/18 metroNIDAZOLE [Flagyl*] 500 mg PO Q6HR #40 tablet 07/09/18 Ciprofloxacin HCl [Cipro 500 MG Tablet] 500 mg PO BID #28 tab 07/10/18 Furosemide [Lasix] 20 mg PO BIDL #60 tab 07/10/18 New Medications: metroNIDAZOLE [Flagyl*] 500 mg PO Q6HR #40 tablet Ciprofloxacin HCl [Cipro 500 MG Tablet] 500 mg PO BID #28 tab Furosemide [Lasix] 20 mg PO BIDL #60 tab Diet: Regular Activity: Ad charo Followup: Sj Lim MD [ACTIVE - CAN ADMIT] - Haroldo Rojas MD [ACTIVE - CAN ADMIT] - Wilmer Raymundo MD [ASSOCIATE-ACTIVE - CAN ADMIT] -
== END 2018-07-10 14:16 | DRG 871 ==
LOC: ER 17:49 → ERHOLD 20:49 → 3RD-ICU 22:35 → 2ND 07-08 20:55
PROVIDERS: ADMIT Internal Medicine; ATTEND Family Medicine
PROC: 02HV33Z Insertion of Infusion Device into Superior Vena Cava, Percutaneous Approach (ICD-10-PCS; principal; 2018-07-06)
DX: A41.9 Sepsis, unspecified organism (principal); R65.21 Severe sepsis with septic shock; I50.23 Acute on chronic systolic (congestive) heart failure; N17.0 Acute kidney failure with tubular necrosis; K57.92 Diverticulitis of intestine, part unspecified, without perforation or abscess without bleeding; N17.9 Acute kidney failure, unspecified; I13.0 Hypertensive heart and chronic kidney disease with heart failure and stage 1 through stage 4 chronic kidney disease, or unspecified chronic kidney disease; I48.4 Atypical atrial flutter; N18.4 Chronic kidney disease, stage 4 (severe); M62.82 Rhabdomyolysis; E11.22 Type 2 diabetes mellitus with diabetic chronic kidney disease; I25.10 Atherosclerotic heart disease of native coronary artery without angina pectoris; I48.91 Unspecified atrial fibrillation; Z95.0 Presence of cardiac pacemaker; E11.649 Type 2 diabetes mellitus with hypoglycemia without coma; G30.8 Other Alzheimer's disease; F02.80 Dementia in other diseases classified elsewhere, unspecified severity, without behavioral disturbance, psychotic disturbance, mood disturbance, and anxiety; E78.5 Hyperlipidemia, unspecified; D63.8 Anemia in other chronic diseases classified elsewhere; N40.0 Benign prostatic hyperplasia without lower urinary tract symptoms; Z95.1 Presence of aortocoronary bypass graft; N18.3 Chronic kidney disease, stage 3 (moderate); K21.9 Gastro-esophageal reflux disease without esophagitis; E78.2 Mixed hyperlipidemia; Z95.810 Presence of automatic (implantable) cardiac defibrillator; Z66 Do not resuscitate
CPT/HCPCS: 36415; 70450; 71045; 71250; 74176; 76770; 80048; 80053; 80076; 81003; 81015; 82550; 82553; 82962; 83605; 83690; 83735; 84132; 84145; 84300; 84443; 84484; 85025; 85610; 85730; 87040; 87086; 87088; 93005; 93306; 94760; 96361; 96365; 97116; 97163; 99285; J0744; J1644; J1940; J2543; J3411; J7030

== ENCOUNTER 2018-07-23 13:27 | Observation (INO) | payer OTHER ==
--- OUTSIDE RECORDS SUMMARY | 2018-07-23 13:30 | XMS REPORT | Clinical Summary ---
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 Shelf Model / Identifier Expiration Serial / Date Lot Inogen El Icd Vr Defibrillators N/A: [place] 07/10/2019 [id number] / Implanted: Qty: 1 on 12/20/2017 by Dwayne Flores MD Chest SCIENTIFIC [id number] / Procedures Procedure Name Priority Date/Time Associated [...] 426 ms QTC Calculation(Bazett) 418 ms P [place] 45 degrees R [place] -25 degrees T [place] 139 degrees Atrial flutter with variable A-V block with premature ventricular or aberrantly conducted complexes Possible Anterior infarct , age undetermined ST & T wave abnormality, consider inferolateral ischemia Abnormal ECG No previous ECGs available ECG 12-LEAD Routine 12/20/2017 7:00 AM CDT after 07/22/2017 Results CARDIAC CATH REPORT - SCAN (12/24/2017 5:44 PM CDT) Narrative Performed At [facility] REPORT - SCAN (12/23/2017 12:30 PM CDT) Narrative Performed At CBC with platelet count + automated diff (12/20/2017 7:05 AM CDT) WBC 4.6 3.5 - 10.5 K/L [facility] RBC 3.33 (L) 4.63 - 6.08 M/L [facility] Hemoglobin 10.1 (L) 13.7 - 17.5 GM/DL [facility] Hematocrit 31.9 (L) 40.1 - 51.0 % [facility] MCV 95.8 (H) 79.0 - 92.2 fL [facility] MCH 30.3 25.7 - 32.2 pg [facility] MCHC 31.7 (L) 32.3 - 36.5 GM/DL [facility] RDW 17.4 (H) 11.6 - 14.4 % [facility] Platelets 99 (L) 150 - 450 K/CU MM [facility] MPV 11.0 9.4 - 12.4 fL [facility] nRBC 0 0 - 0 /100 WBC [facility] % Neutros 68 % [facility] % Lymphs 20 % [facility] % Monos 9 % [facility] % Eos 2 % [facility] % Baso 0 % [facility] # Neutros 3.12 1.78 - 5.38 K/L [facility] # Lymphs 0.93 (L) 1.32 - 3.57 K/L [facility] # Monos 0.40 0.30 - 0.82 K/L [facility] # Eos 0.09 0.04 - 0.54 K/L [facility] # Baso 0.01 0.01 - 0.08 K/L [facility] Immature Granulocytes-Relative 0 0 - 1 % [facility] Specimen Blood - Arm, Left Performing Organization Address City/State/Zipcode Phone Number [facility] [address] [place] [address] CENTER Prothrombin time/INR (12/20/2017 7:05 AM CDT) Protime 15.1 (H) 11.7 - 14.7 seconds [facility] INR 1.2 <=5.9 [facility] Specimen Blood - Arm, Left Narrative Performed At [facility] RECOMMENDED COUMADIN/WARFARIN INR THERAPY RANGES STANDARD DOSE: 2.0 - 3.0 Includes: PROPHYLAXIS for venous thrombosis, systemic embolization; TREATMENT for venous thrombosis and/or pulmonary embolus. HIGH RISK: Target INR is 2.5-3.5 for patients with mechanical heart valves. Performing Organization Address [facility] Phone Number [address] [address] [place] Basic metabolic panel (12/20/2017 7:05 AM CDT) Sodium 142 136 - 145 meq/L [facility] Potassium 4.1 3.5 - 5.1 meq/L [facility] Chloride 105 98 - 107 meq/L [facility] CO2 28 22 - 29 meq/L [facility] BUN 30 (H) 7 - 21 mg/dL [facility] Creatinine 1.90 (H) 0.57 - 1.25 mg/dL [facility] Glucose 118 (H) 70 - 105 mg/dL [facility] Calcium 9.1 8.4 - 10.2 mg/dL [facility] EGFR 34Comment: ESTIMATED GFR IS mL/min/1.73 sq m [facility] NOT ACCURATE CREATININE [facility] CLEARANCE IN PREDICTING GLOMERULAR FILTRATION RATE. ESTIMATED GFR IS NOT APPLICABLE FOR DIALYSIS PATIENTS. Specimen Blood - Arm, Left Performing Organization Address [facility] Cent[facility]ode Phone Number [address] [address] [phone] [place] ECG 12 lead (12/20/2017 7:00 AM CDT) Narrative Performed At Ventricular Rate 58 BPM [facility] Atrial Rate 232 BPM QRS Duration 98 ms Q-T Interval 426 ms QTC Calculation(Bazett) 418 ms P [place] 45 degrees R [place] -25 degrees T [place] 139 degrees Atrial flutter with variable A-V block with premature ventricular or aberrantly conducted complexes Abnormal ECG No previous ECGs available Confirmed by James BEJARANO MICHAEL ([id number]) on 12/20/2017 7:33:36 AM Procedure Note Interface, External Ris In - 12/20/2017 7:33 AM CDT Ventricular Rate 58 BPM Atrial Rate 232 BPM QRS Duration 98 ms Q-T Interval 426 ms QTC Calculation(Bazett) 418 ms P [place] 45 degrees R [place] -25 degrees T [place] 139 degrees Atrial flutter with variable A-V block with premature ventricular or aberrantly conducted complexes Abnormal ECG No previous ECGs available Confirmed by James BEJARANO MICHAEL ([id number]) on 12/20/2017 7:33:36 AM Performing Organization Address City/State/Zipcode Phone Number [facility] after 07/22/2017 Insurance Payer Benefit Plan / Subscriber ID Type Phone Address Group [employer] - [employer] MEDICARE xxxxxxxx Maps Contracted [phone] [address] MEDICARE MGD HMO POS [id number] [place] [address] MEDICAID MEDICAID OF xxxxxxxxx Medicaid [place] Advance Directives Patient has advance care planning documents, and code status on file. For more information, please contact:[address] [phone] Code Status Date Activated Date Inactivated Comments Full Code 12/20/2017 6:40 AM 12/20/2017 3:38 PM This code status was determined by: Patient
--- OUTSIDE RECORDS SUMMARY | 2018-07-23 13:43 | XMS REPORT | Continuity of Care Document ---
:1935 Author Organization Interface Problems Problem Status Onset Classification Date Comments Source Date Reported Irritability and anger The [address] [place] [address] Anger reaction The [address] [place] [address] Dementia The [address] [place] [address] FALL ON BLOODTHINNERS Active 08/06/ The 2018 [place] Discharge Diagnosis: [facility] Chronic renal 2017 7 insufficiency Discharge Diagnosis: [facility] Chronic CHF 2017 7 ABNORMAL LABS Active 05/30/ [facility] 2016 AFIB/DIZZY Active 11/02/ [facility] 2017 CP Active 12/27[facility] 2015 UNSTABLE ANGINA Active 05/16/ [address] 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 Heart failure Active Problem [facility] 2 Heart failure Active Problem [facility] Outpatient 5 Imaging [facility] CAD (<span Active Problem [place] [id number]">Conf 7 Medical irmed</span>) [facility] Heart failure Active Problem [facility] Outpatient 7 Imaging [facility] HTN (<span Resolved Problem [place] [id number]">Conf 7 Medical irmed</span>) [facility] [place] (<span Resolved Problem [place] [id number]">Conf 7 Medical irmed</span>) [facility] Presence of automatic Active Problem Cardiovascular cardiac defibrillator 9 [facility] Atherosclerotic heart Active Problem Cardiovascular disease of [place] 9 [facility] coronary artery with other forms [...] Active Diagnosis Cardiovascular atherosclerosis of 5 [facility] [place] vessel Diabetes mellitus type Active Problem Cardiovascular [...] 6 [facility]oc Unspecified dementia The without behavioral [address] [place] [address] disturbance Laceration without The foreign body of left [address] [place] [address] elbow, initial encounter Abrasion of scalp, The initial encounter [address] [place] [address] Abrasion of right The forearm, initial [address] [place] [address] encounter Striking against other The stationary object, [address] [place] [address] initial encounter Essential hypertension The [address] [place] [address] 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 [address] [place] [address] Personal history of The nicotine dependence 8 [place] Encounter for The immunization 8 [place] CAD (<span Active Problem [facility] ID="[id number]">Conf 8 Medical irmed</span>) [facility] [place] Heart failure Active Problem [facility] Outpatient 8 Imaging [facility] HTN (<span Resolved Problem [facility] ID="[id number]">Conf 8 Medical irmed</span>) Center,[facility] [place] (<span Resolved Problem [facility] ID="[id number]">Conf 8 Medical irmed</span>) Center,[facility] CHR SYSTOLIC HRT Active [facility] FAILURE ANGINA PECTORIS, Active [facility] UNSPECIFIED Medical Center ENCOUNTER FOR Active [facility] SCREENING FOR [facility] Center MALIGNANT NE NON-ST ELEVATION Active [facility] (NSTEMI) MYOCARDIAL INF CHEST PAIN, Active [facility] UNSPECIFIED UNSPECIFIED ATRIAL Active [facility] FIBRILLATION Medications Medication Details Route Status Patient Ordering Order Source Instructions Provider Date Saline Flush 10 mL, Inactive The 0.9% Route: IVP2017 [place] Drug Form: INJ, Dosing Weight 83.182, kg, PRN, PRN Line Flush, Start date: 08/06/17 1:02:00 [place] [employer], Duration: 30 day, Stop date: 09/05/17 2:01:00 CDTNotes: Same as: BD Posiflush Sterile Saline Flush 10 mL, Inactive 0.9% Route: IVP2016 [facility] Drug Form: INJ, Dosing Weight 83.182, kg, PRN, PRN Line Flush, Start date: 05/30/17 11:48:00 [place], Duration: 1 day, Stop date: 05/31/17 11:47:00 [...] No Longer Route: PO, Active 2016 [facility] Daily, Dosing Weight 85, kg, Start date: 11/03/16 9:00:00 CDT, Duration: 30 day, Stop date: 12/02/16 9:00:00 CDT Furosemide 40 40 mg, 1 Inactive MG Oral Tablet tab, Route: 2016 [facility] PO, Drug form: TAB, Daily, Dosing Weight 85, kg, Start date: 11/03/16 9:00:00 CDT, Duration: 30 day, Stop date: 12/02/16 9:00:00 CDTNotes: (Same as: Lasix) May cause GI upset. Give with food or milk. Losartan 50 mg, 1 Inactive tab, Route: 2016 [facility] PO, Drug form: TAB, Daily, Dosing Weight 85, kg, Start date: 11/03/16 9:00:00 CDT, Duration: 30 day, Stop date: 12/02/16 9:00:00 CDTNotes: (Same as: Zohra) Glucotrol 5 mg, 1 Inactive tab, Route: 2016 [facility] PO, Drug form: TAB, Daily, Start date: 11/03/16 9:00:00 CDT, Duration: 30 day, Stop date: 12/02/16 9:00:00 CDTNotes: (Same as: Glucotrol) 30 min before meals. Eliquis 2.5 mg, 1 Inactive tab, Route: 2016 [facility] PO, Drug form: TAB, Q12H, Dosing Weight 83.636, kg, Start date: 11/03/16 9:00:00 CDT, Duration: 30 day, Stop date: 12/02/16 21:00:00 CDTNotes: Same as: Eliquis tamsulosin 0.4 mg, 1 Inactive cap, Route: 2016 [facility] PO, Drug form: CAP, Daily, Dosing Weight 85, kg, Start date: 11/03/16 9:00:00 CDT, Duration: 30 day, Stop date: 12/02/16 9:00:00 CDTNotes: (Same As: Flomax) "Do Not Crush" Aldactone 25 mg, 1 Inactive tab, Route: 2016 [facility] PO, Drug form: TAB, Daily, Dosing Weight 85, kg, Start date: 11/03/16 9:00:00 CDT, Duration: 30 day, Stop date: 12/02/16 9:00:00 CDTNotes: (Same As: Aldactone) Synthroid 200 Inactive microgram, 2016 [facility] 2 tab, Route: PO, Drug form: TAB, Q630AM, Dosing Weight 85, kg, Start date: 11/03/16 6:30:00 CDT, Duration: 30 day, Stop date: 12/02/16 6:30:00 CDTNotes: Take 1 hour before or 2 hours after meal; Enteral feeds may interefere with the absorption of this medication. (Same as:Levothro id, Synthroid) Insulin, 3 unit, No Longer Aspart, Human 0.03 mL, Active 2016 [facility] Route: SUB-Q, Drug form: SOLN, Bedtime, [...] 1 mg, Inactive Route: IM, 2016 [facility] PRN, Dosing Weight 83.636, kg, PRN Blood Glucose Results, Start date: 11/02/16 21:49:00 CDT, Duration: 30 day, Stop date: 12/02/16 21:48:00 CDT Dextrose 50% 25 mL, Inactive Syringe Route: IVP, 2016 [facility] Dosing Weight 83.636, kg, PRN, PRN Blood Glucose Results, Start date: 11/02/16 21:49:00 CDT, Duration: 30 day, Stop date: 12/02/16 21:48:00 CDT Morphine 2 mg, 1 mL, No Longer Route: IVP, Active 2016 [facility] Drug form: INJ, Q4H, Dosing Weight 83.636, kg, PRN Pain Score 7-10, Start date: 11/02/16 21:45:00 CDT, Duration: 30 day, Stop date: 12/02/16 21:44:00 CDTNotes: (Same as:MORPhine Sulfate) Benadryl 25 mg, 1 Inactive tab, Route: 2016 [facility] PO, Drug form: TAB, ONCE, Dosing Weight 83.636, kg, PRN Insomnia, Start date: 11/02/16 21:43:00 CDT Lipitor 10 mg, 1 No Longer tab, Route: Active 2016 [facility] PO, Drug form: TAB, Bedtime, Dosing Weight 85, kg, Start date: 11/02/16 21:00:00 CDT, Duration: 30 day, Stop date: 12/01/16 21:00:00 CDTNotes: (Same As: Lipitor) Ranexa 1,000 mg, 2 No Longer tab, Route: Active 2016 [facility] PO, Drug form: TAB, Q12H, Dosing Weight 85, kg, Start date: 11/02/16 21:00:00 CDT, Duration: 30 day, Stop date: 12/02/16 9:00:00 CDTNotes: Same as Ranexa "Do Not Crush" Prilosec 20 mg, Inactive Route: PO, 2016 [facility] Drug form: DRC, Bedtime, Dosing Weight 85, kg, Start date: 11/02/16 21:00:00 CDT, Duration: 30 day, Stop date: 12/01/16 21:00:00 CDT 24 HR 25 mg, 1 No Longer Metoprolol tab, Route: Active 2016 [facility] Tartrate 25 MG PO, Drug Extended form: Release Tablet ERTAB, [Toprol] Q12H, Start date: 11/02/16 21:00:00 CDT, Duration: 30 day, Stop date: 12/02/16 9:00:00 CDTNotes: (Same as: Toprol XL) Do Not Crush Hydralazine 10 mg, 0.5 No Longer mL, Route: Active 2016 [facility] IVP, Drug form: INJ, Q4H, Dosing Weight 85, kg, PRN Hypertensio n, Start date: 11/02/16 16:38:00 CDT, Duration: 30 day, Stop date: 12/02/16 16:37:00 CDTNotes: (Same as: Apresoline) Push over 5 minutes clopidogrel 75 mg, 1 No Longer tab, Route: Active 2016 [facility] PO, Drug form: TAB, Daily, Dosing Weight 85, kg, Start date: 11/02/16 16:30:00 CDT, Duration: 30 day, Stop date: 12/02/16 9:00:00 CDTNotes: (Same As: Plavix) aspirin 81 mg 81 mg, 1 No Longer tablet, enteric tab, Route: Active 2016 [facility] coated PO, Drug form: ECTAB, Daily, Dosing Weight 85, kg, Start date: 11/02/16 16:30:00 CDT, Duration: 30 day, Stop date: 12/02/16 9:00:00 CDTNotes: Do not crush or chew. (Same As: Ecotrin) Protonix 40 mg, 1 No Longer tab, Route: Active 2016 [facility] PO, Drug form: ECTAB, Before Dinner, Start date: 11/02/16 16:30:00 CDT, Duration: 30 day, Stop date: 12/01/16 16:30:00 CDTNotes: Tablet should not be chewed or crushed. (Same as: Protonix) 24 HR 25 mg, 1 Inactive Metoprolol tab, Route: 2016 [facility] Tartrate 25 MG PO, Drug Extended form: Release Tablet ERTAB, [Toprol] Daily, Start date: 11/02/16 16:30:00 CDT, Duration: 30 day, Stop date: 12/02/16 9:00:00 CDTNotes: (Same as: Toprol XL) Do Not Crush 24 HR 12.5 mg, No Longer Metoprolol PO, Daily, Active 2016 [facility] Tartrate 25 MG 0 Refill(s) Extended Release Tablet [Toprol] Insulin, 5 unit, No Longer Aspart, Human 0.05 mL, Active 2016 [facility] Route: SUB-Q, Drug form: SOLN, TID-Before [...] No Longer Route: IM, Active 2016 [facility] Drug form: PDR/INJ, PRN, Dosing Weight 85, kg, PRN Blood Glucose Results, Start date: 11/02/16 14:36:00 CDT, Duration: 30 day, Stop date: 12/02/16 14:35:00 CDT Dextrose 50% 25 gm, 50 No Longer Syringe mL, Route: Active 2016 [facility] IVP, Drug Form: INJ, Dosing Weight 85, kg, PRN, PRN Blood Glucose Results, Start date: 11/02/16 14:36:00 CDT, Duration: 30 day, Stop date: 12/02/16 14:35:00 CDT Metoprolol 5 mg, 5 mL, No Longer Route: IVP, Active 2016 [facility] Drug form: INJ, Q4H, Dosing Weight [...] Active 3.125 mg oral tab, PO, 2015 [facility] tablet BID, 0 Refill(s) Aspirin 81 MG 81 mg, 1 No Longer Enteric Coated tab, Route: Active 2015 [facility] Tablet PO, Drug form: ECTAB, Daily, Dosing Weight 83.455, kg, Start date: 12/30/15 9:00:00 CDT, Duration: 30 day, Stop date: 01/28/16 9:00:00 CDTNotes: Do not crush or chew. (Same As: Ecotrin) Furosemide 40 40 mg, 1 Inactive MG Oral Tablet tab, Route: 2015 [facility] PO, Drug form: TAB, Daily, Dosing Weight 83.455, kg, Start date: 12/30/15 9:00:00 CDT, Duration: 30 day, Stop date: 01/28/16 9:00:00 CDTNotes: (Same as: Lasix) May cause GI upset. Give with food or milk. Aspirin 325 MG 325 mg, 1 Inactive Enteric Coated tab, Route: 2015 [facility] Tablet PO, Drug form: TAB, Daily, Dosing Weight 83.455, kg, Start date: 12/30/15 9:00:00 CDT, Duration: 30 day, Stop date: 01/28/16 9:00:00 CDTNotes: Take with food. clopidogrel 75 mg, No Longer Route: PO, Active 2015 [facility] Drug form: TAB, Daily, Dosing Weight 83.455, kg, Start date: 12/30/15 9:00:00 CDT, Duration: 30 day, Stop date: 01/28/16 9:00:00 CDT Losartan 50 mg, 1 Inactive tab, Route: 2015 [facility] PO, Drug form: TAB, Daily, Dosing Weight 83.455, kg, Start date: 12/30/15 9:00:00 CDT, Duration: 30 day, Stop date: 01/28/16 9:00:00 CDTNotes: (Same as: Cozaar) Synthroid 200 Inactive microgram, 2015 [facility] 2 tab, Route: PO, Drug form: TAB, Daily, Dosing Weight 83.455, kg, Start date: 12/30/15 6:30:00 CDT, Duration: 30 day, Stop date: 01/28/16 6:30:00 CDTNotes: Take 1 hour before or 2 hours after meal; Enteral feeds may interefere with the absorption of this medication. (Same as:Levothro id, Synthroid) Coreg 6.25 mg, 2 No Longer tab, Route: Active 2015 [facility] PO, Drug form: TAB, BID, Dosing Weight 83.455, kg, Start date: 12/29/15 21:00:00 CDT, Duration: 30 day, Stop date: 01/28/16 9:00:00 CDTNotes: Give with food. (Same As: Coreg) Lipitor 40 mg, 1 Inactive tab, Route: 2015 [facility] PO, Drug form: TAB, Bedtime, Start date: 12/29/15 21:00:00 CDT, Duration: 30 day, Stop date: 01/27/16 21:00:00 CDTNotes: (Same as: Lipitor) rosuvastatin 10 rosuvastati No Longer mg tab n 10 mg Active 2015 [facility] tab, 20 mg, 2 tab, Drug form: MISC, Route: PO, Bedtime, 12/29/15 21:00:00 CDT, Duration: 30 day, Stop date: 01/27/16 21:00:00 CDTNotes: (Same as: Crestor) Crestor 20 mg, Inactive Route: PO, 2015 [facility] Drug form: TAB, Bedtime, Dosing Weight 83.455, kg, Start date: 12/29/15 21:00:00 CDT, Duration: 30 day, Stop date: 01/27/16 21:00:00 CDT Ranexa 1,000 mg, 2 No Longer tab, Route: Active 2015 [facility] PO, Drug form: TAB, BID, Dosing Weight 83.455, kg, Start date: 12/29/15 21:00:00 CDT, Duration: 30 day, Stop date: 01/28/16 9:00:00 CDTNotes: Same as Ranexa "Do Not Crush" Prilosec 20 mg, Inactive Route: PO, 2015 [facility] Drug form: DRC, Bedtime, Dosing Weight 83.455, kg, Start date: 12/29/15 21:00:00 CDT, Duration: 30 day, Stop date: 01/27/16 21:00:00 CDT tamsulosin 0.4 mg, 1 No Longer 07/21/ MH cap, Route: Active 2015 [facility] PO, Drug form: CAP, Daily, Dosing Weight 83.455, kg, Start date: 12/29/15 18:00:00 CDT, Duration: 30 day, Stop date: 01/27/16 18:00:00 CDTNotes: (Same As: Flomax) "Do Not Crush" Aldactone 25 mg, 1 No Longer tab, Route: Active 2015 [facility] PO, Drug form: TAB, BID, Dosing Weight 83.455, kg, Start date: 12/29/15 17:00:00 CDT, Duration: 30 day, Stop date: 01/28/16 9:00:00 CDTNotes: (Same As: Aldactone) glimepiride 1 mg, 0.5 No Longer tab, Route: Active 2015 [facility] PO, Drug form: TAB, BID-Meals, Dosing Weight 83.455, kg, Start date: 12/29/15 17:00:00 CDT, Duration: 30 day, Stop date: 01/28/16 8:00:00 CDTNotes: (Same as: Amaryl) Protonix 40 mg, 1 No Longer tab, Route: Active 2015 [facility] PO, Drug form: ECTAB, Before Dinner, Start date: 12/29/15 16:30:00 CDT, Duration: 30 day, Stop date: 01/27/16 16:30:00 CDTNotes: Tablet should not be chewed or crushed. (Same as: Protonix) Acetaminophen 1 tab, No Longer 325 MG / Route: PO, Active 2015 [facility] Hydrocodone Drug Form: Bitartrate 7.5 TAB, Dosing MG Oral Tablet Weight [[place] 7.5/325] 83.455, kg, Q6H, PRN Pain Score 4-6, Start date: 12/29/15 16:20:00 CDT, Duration: 30 day, Stop date: 01/28/16 16:19:00 CDTNotes: Same as [place] 325-7.5mg Do not exceed 4gm/day of acetaminoph [...] No Longer tab, Route: Active 2015 [facility] PO, Drug form: TAB, Q12H, Dosing Weight 83.455, kg, PRN Heartburn, Start date: 12/29/15 15:39:00 CDT, Duration: 30 day, Stop date: 01/28/16 15:38:00 CDTNotes: (Same as: Pepcid) Nitroglycerin 0.4 mg, Inactive Route: 2015 [facility] Transdermal , PRN, Dosing Weight 83.455, kg, PRN Abnormal Lab Result, Start date: 12/29/15 15:36:00 CDT, Duration: 30 day, Stop date: 01/28/16 15:35:00 CDT Insulin, 4 unit, No Longer Aspart, Human 0.04 mL, Active 2015 [facility] Route: SUB-Q, Drug form: SOLN, Bedtime, [...] No Longer Route: IM, Active 2015 [facility] Drug form: PDR/INJ, PRN, Dosing Weight [...] 1 Inactive Enteric Coated tab, Route: 2016 [facility] Tablet PO, Daily, Dosing Weight 83.455, kg, Priority: NOW, Start date: 12/29/15 9:09:00 CDT, Duration: 30 day, Stop date: 01/28/16 9:00:00 CDT Streptococcus 0.5 mL, Inactive pneumoniae Route: IM, 2016 [facility] serotype 1 Drug Form: capsular INJ, Daily, antigen Start date: diphtheria 12/29/15 [id number] protein 9:00:00 conjugate CDT, vaccine / Duration: 1 Streptococcus doses or pneumoniae times, Stop serotype 14 date: capsular 07/21/16 antigen 9:00:00 diphtheria CDTNotes: [id number] protein Lightly conjugate roll vial vaccine / (DO NOT Streptococcus SHAKE) pneumoniae before serotype 18C administrat capsular ion. (Same antigen d as: Prevnar 13) glimepiride 1 mg, PO, Active BID-Meals, 2015 [facility] 0 Refill(s) Saline Flush 10 ml, No Longer 0.9% Route: IVP, Active 2015 [facility] Drug Form: INJ, Dosing Weight 83.455, kg, Q12H, Start date: 12/28/15 21:00:00 CDT, Duration: 30 day, Stop date: 01/27/16 9:00:00 CDTNotes: (Same as: BD Posiflush) Zofran 4 mg, 2 mL, No Longer Route: IVP, 2015 [facility] Drug form: INJ, Q8H, Dosing Weight 84.716, kg, PRN as needed for nausea/vomi ting, Start date: 12/28/15 19:06:00 CDT, Duration: 30 day, Stop date: 01/27/16 19:05:00 CDTNotes: (Same as: Zofran) MEDICATION WASTE Product Size: 4 mg Product Wasted: ___ mg Saline Flush 10 ml, No Longer 0.9% Route: IVP, 2015 [facility] Drug Form: INJ, Dosing Weight 83.455, kg, PRN, PRN Line Flush, Start date: 12/28/15 19:06:00 CDT, Duration: 30 day, Stop date: 01/27/16 19:05:00 CDTNotes: (Same as: BD Posiflush) Nitroglycerin 0.4 mg, 1 No Longer tab, Route: Active 2015 [facility] SL, Drug form: TAB, Q5Min, Dosing Weight 83.455, kg, PRN Chest Pain, Start date: 12/28/15 19:06:00 CDT, Duration: 3 doses or times, Stop date: Limited # of timesNotes: (Same as:Nitroqui ck, Nitrostat) "Do Not Crush" Sublingual tablet Heparin 30 Route: IVP, No Longer unit/kg Bolus PRN, 2,200 Active 2015 [facility] (Heparin Dosing unit, 2.2 Weight) mL, Drug form: INJ, PRN, Heparin Protocol, Start date: 12/28/15 16:59:00 CDT Stop date: 01/27/16 16:58:00 CDT, 30 day heparin 500 mL, No Longer additive 25,000 Rate: 17.65 Active 2015 [facility] unit [12 ml/hr, unit/kg/hr] + Infuse Premix Diluent over: 28.3 Dextrose 5% 500 hr, Route: mL IV, Dosing Weight 73.55 kg, Total Volume: 500 mL, Start date: 12/28/15 16:59:00 CDT, Duration: 30 day, Stop date: 01/27/16 16:58:00 CDT Heparin 60 Route: IVP, No Longer unit/kg Bolus PRN, 4,400 Active 2015 [facility] (Heparin Dosing unit, 4.4 Weight) mL, Drug form: INJ, PRN, Heparin Protocol, Start date: 12/28/15 16:59:00 CDT Stop date: 01/27/16 16:58:00 CDT, 30 day Heparin - one 4,000 unit, Inactive time bolus for 4 mL, 2015 [facility] ACS Route: IV, Drug form: INJ, ONCE, Dosing Weight 84.716, kg, Priority: STAT, Start date: 12/28/15 16:59:00 CDT, Stop date: 12/28/15 16:59:00 CDT Aspirin 325 mg, 1 Inactive tab, Route: 2015 [facility] PO, Drug form: TAB, ONCE, Dosing Weight 84.716, kg, Priority: STAT, Start date: 12/28/15 16:29:00 CDT, Stop date: 12/28/15 16:29:00 CDTNotes: Take with food. Aspirin 81 MG 81 mg=1 Active [facility] Enteric Coated tab, PO, 2014 [...] Rate: 50 Active 2014 [facility] mL ml/hr, [place] Infuse over: 20 hr, Route: IV, Dosing Weight 85 kg, Total Volume: 1,000, Start date: 05/20/15 19:26:00, Duration: 30 day, Stop date: 06/19/15 19:25:00 Sodium Chloride 125 mL, 125 Inactive [place] 0.154 MEQ/ML ml/hr, 2014 [facility] Injectable Infuse Center Solution Over: 1 hr, [...] es: (Same as: Mag-Ox 400) Magnesium oxide [id number] elemental magnesium Dose=____mg magnesium oxide (___mg elemental [...] tablet Plavix 75 mg, 1 No Longer [place] tab, Route: Active 2014 [facility] PO, Drug Center form: TAB, Daily, Dosing Weight 85, kg, Start date: 05/20/15 9:00:00, Duration: 30 day, Stop date: 06/18/15 9:00:00Note s: (Same As: Plavix) Lactulose 667 10 gm, 15 No Longer [place] MG/ML Oral mL, Route: Active 2014 [facility] Solution PO, Drug Center Form: SYRP, Dosing Weight 85, kg, QID, PRN as needed for constipatio n, Start date: 05/19/15 23:08:00, Duration: 30 day, Stop date: 06/18/15 23:07:00Not es: (Same as:[place] c) normal saline 1,000 mL, No Longer [place] 0.9% IV 1,000 Rate: 75 Active 2014 [facility] mL ml/hr, Center Infuse over: 13.3 hr, Route: IV, Dosing Weight 85 kg, Total Volume: 1,000, Start date: 05/19/15 23:08:00, Duration: 30 day, Stop date: 06/18/15 23:07:00 Plavix 300 mg, 1 Inactive [place] tab, Route: 2014 [facility] PO, Drug Center form: TAB, ONCE, Dosing Weight 85, kg, Priority: Within 4 hours, Start date: 05/19/15 12:39:00, Duration: 1 doses or times, Stop date: 05/19/15 12:39:00Not es: ( Same as: Plavix) Miralax 17 gm, 1 No Longer [place] pkt, Route: Active 2014 [facility] PO, Drug Center form: PWDR, Daily, Dosing Weight 85, kg, Priority: NOW, Start date: 05/18/15 16:37:00, Duration: 30 day, Stop date: 06/17/15 9:00:00Note s: Dissolve in 8 oz of water or juice. (Same as: Miralax) sennosides, HALF-WAY 8.6 mg, 1 No Longer [place] tab, Route: Active 2014 [facility] PO, Drug Center Form: TAB, Dosing Weight 85, kg, Daily, NOW, Start date: 05/18/15 16:37:00, Duration: 30 day, Stop date: 06/17/15 9:00:00Note s: (Same as: Senokot) Docusate 100 mg, Inactive [facility] Route: PO2014 [facility] Drug form: [place] CAP, Daily, Dosing Weight 85, kg, Priority: NOW, Start date: 05/18/15 16:37:00, Duration: 30 day, Stop date: 06/17/15 9:00:00 Lipitor 40 mg, 2 No Longer [facility] tab, Route: Active 2014 [facility] PO, Drug Center form: TAB, Bedtime, Start date: 05/17/15 21:00:00, Duration: 30 day, Stop date: 06/15/15 21:00:00Not es: (Same As: Lipitor) Crestor 20 mg, Inactive [facility] Route: PO, 2014 [facility] Drug form: Center TAB, Bedtime, Dosing Weight 85, kg, Start date: 05/17/15 21:00:00, Duration: 30 day, Stop date: 06/15/15 21:00:00 Prilosec 20 mg, Inactive [facility] Route: PO2014 [facility] Drug form: [place] DRC, Bedtime, Dosing Weight 85, kg, Start date: 05/17/15 21:00:00, Duration: 30 day, Stop date: 06/15/15 21:00:00 Docusate Sodium 100 mg, 1 No Longer [facility] 100 MG Oral cap, Route: Active 2014 [facility] Capsule PO, Drug Center [Colace] form: CAP, BID, Dosing Weight 85, kg, Start date: 05/17/15 17:00:00, Duration: 30 day, Stop date: 06/16/15 9:00:00Note s: (Same as: Colace) (Do Not Crush) Protonix 40 mg, 1 No Longer [facility] tab, Route: Active 2014 [facility] PO, [...] Furosemide 40 40 mg, 1 No Longer [place] MG Oral Tablet tab, Route: Active 2014 [facility] PO, Drug Center form: TAB, Daily, Dosing Weight 85, kg, Start date: 05/17/15 9:00:00, Duration: 30 day, Stop date: 06/15/15 9:00:00Note s: (Same as: Lasix) May cause GI upset. Give with food or milk. Aldactone 25 mg, 1 No Longer [place] tab, Route: Active 2014 [facility] PO, Drug Center form: TAB, BID, Dosing Weight 85, kg, Start date: 05/17/15 9:00:00, Duration: 30 day, Stop date: 06/15/15 17:00:00Not es: (Same As: Aldactone) Ranexa 1,000 mg, 2 No Longer [place] tab, Route: Active 2014 [facility] PO, Drug Center form: TAB, BID, Dosing Weight 85, kg, Start date: 05/17/15 9:00:00, Duration: 30 day, Stop date: 06/15/15 17:00:00Not es: Same as Ranexa "Do Not Crush" Losartan 50 mg, 1 No Longer [place] tab, Route: Active 2014 Medical PO, Drug [...] Coreg) tamsulosin 0.4 mg, 1 No Longer [place] cap, Route: Active 2014 [facility] PO, Drug Center form: CAP, After Breakfast, Dosing Weight 85, kg, Start date: 05/17/15 8:30:00, Duration: 30 day, Stop date: 06/15/15 8:30:00Note s: (Same As: Flomax) "Do Not Crush" Synthroid 200 No Longer [place] microgram, Active 2014 Medical 1 tab, Center Route: PO, Drug form: TAB, Q630AM, Dosing Weight 85, kg, Start date: 05/17/15 6:30:00, Duration: 30 day, Stop date: 06/15/15 6:30:00Note s: Take 1 hour before or 2 hours after meal; Enteral feeds may interefere with the absorption of this medication. (Same as: Levothroid) heparin sodium, Route: IVP, No Longer [place] porcine 1000 PRN, 4,400 Active 2014 Medical UNT/ML unit, [facility] Injectable mL, Drug Solution form: INJ, PRN, Heparin Protocol, Start date: 05/17/15 1:38:00 Stop date: 06/16/15 1:37:00, 30 day heparin 500 mL, No Longer [place] additive 25,000 Rate: 17.68 Active 2014 Medical [...] mg, 2 Inactive tab, Route: 2014 [facility] PO, Drug form: TAB, ONCE, Dosing Weight 83.2, kg, Priority: NOW, Start date: 05/15/15 10:37:00, Duration: 1 doses or times, Stop date: 05/15/15 10:37:00Not es: ( Same as: Plavix) Insulin, 10 unit, No Longer Aspart, Human 0.1 mL, Active 2014 [facility] Route: SUB-Q, Drug form: SOLN, TID-Before [...] Longer Syringe mL, Route: Active 2014 [facility] IVP, Drug Form: INJ, Dosing Weight 83.2, kg, PRN, PRN Blood Glucose Results, Start date: 05/14/15 11:54:00, Duration: 30 day, Stop date: 06/13/15 11:53:00 Glucagon 1 mg, No Longer Route: IM, Active 2014 [facility] Drug form: PDR/INJ, PRN, Dosing Weight 83.2, kg, PRN Blood Glucose Results, Start date: 05/14/15 11:54:00, Duration: 30 day, Stop date: 06/13/15 11:53:00 Magnesium 2 gm, 50 Inactive Sulfate mL, Route: 2014 [facility] IVPB, Drug form: INJ, ONCE, Dosing Weight 83.2, kg, Start date: 05/14/15 8:24:00, Duration: 2 hr, Stop date: 05/14/15 8:24:00 Coreg 3.125 mg, Inactive Route: PO, 2014 [facility] Drug form: TAB, Q12H, Dosing Weight 83.2, kg, hold sbp Crestor 20 mg, Inactive Route: PO, 2014 [facility] Drug form: TAB, Bedtime, Dosing Weight 83.2, kg, Start date: 05/13/15 21:00:00, Duration: 30 day, Stop date: 06/11/15 21:00:00 Lipitor 40 mg, 1 No Longer tab, Route: Active 2014 [facility] PO, Drug form: TAB, Bedtime, Start date: 05/13/15 21:00:00, Duration: 30 day, Stop date: 06/11/15 21:00:00Not es: (Same as: Lipitor) heparin sodium, 4,000 unit, Inactive porcine 5000 4 mL, 2014 [facility] UNT/ML Route: IV, Injectable Drug form: Solution INJ, ONCE, Dosing Weight 83.2, kg, Start date: 05/13/15 14:00:00, Stop date: 05/13/15 14:00:00 Lasix 20 mg, 2 Inactive mL, Route: 2014 [facility] IV, Drug form: INJ, ONCE, Dosing Weight 83.2, kg, Start date: 05/13/15 12:00:00, Stop date: 05/13/15 12:00:00Not es: (Same as: Lasix) Morphine 2 mg, 1 mL, No Longer Route: IVP, Active 2014 [facility] Drug form: INJ, Q4H, Dosing Weight 83.2, kg, PRN Pain Score 7-10, Start date: 05/13/15 10:19:00, Duration: 30 day, Stop date: 06/12/15 10:18:00Not es: (Same as:MORPhine Sulfate) Sodium Chloride 250 mL, 250 Inactive 0.154 MEQ/ML ml/hr, 2014 [facility] Injectable Infuse Solution Over: 1 hr, Route: IV, 250, Drug form: INJ, ONCE, Dosing Weight 83.2 kg, Start date: 05/13/15 9:58:00, Duration: 1 doses or times, Stop date: 05/13/15 9:58:00 Flomax 0.4 mg, 1 No Longer cap, Route: Active 2014 [facility] PO, Drug form: CAP, Daily, Dosing Weight 84.659, kg, Start date: 05/13/15 9:00:00, Duration: 30 day, Stop date: 06/11/15 9:00:00Note s: (Same As: Flomax) "Do Not Crush" aspirin 325 mg 325 mg, 1 No Longer tablet tab, Route: Active 2014 [facility] PO, Drug form: TAB, Daily, Start [...] No Longer tab, Route: Active 2014 [facility] PO, Drug form: TAB, BID, Dosing Weight 84.659, kg, Start date: 05/12/15 22:00:00, Duration: 30 day, Stop date: 06/11/15 21:00:00Not es: Same as Ranexa "Do Not Crush" Coreg 6.25 mg, 2 No Longer tab, Route: Active 2014 [facility] PO, Drug form: TAB, BID, Dosing Weight 84.659, kg, Start date: 05/12/15 21:00:00, Duration: 30 day, Stop date: 06/11/15 9:00:00Note s: Give with food. (Same As: Coreg) Lipitor 20 mg, 2 No Longer tab, Route: Active 2014 [facility] PO, Drug form: TAB, Bedtime, Start date: 05/12/15 21:00:00, Duration: 30 day, Stop date: 06/10/15 21:00:00Not es: (Same As: Lipitor) Crestor 10 mg, Inactive Route: PO, 2014 Bedtime, Dosing Weight 84.659, kg, Start date: 05/12/15 21:00:00, Duration: 30 day, Stop date: 06/10/15 21:00:00 Insulin, 6 unit, No Longer Aspart, Human 0.06 mL, Active 2014 [facility] Route: SUB-Q, Drug form: SOLN, Sliding [...] No Longer Route: IM, Active 2014 [facility] Drug form: PDR/INJ, PRN, Dosing Weight 83.2, kg, PRN Blood Glucose Results, Start date: 05/12/15 20:52:00, Duration: 30 day, Stop date: 06/11/15 20:51:00 Dextrose 50% 25 gm, 50 No Longer Syringe mL, Route: Active 2014 [facility] IVP, Drug Form: INJ, Dosing Weight 83.2, kg, PRN, PRN Blood Glucose Results, Start date: 05/12/15 20:52:00, Duration: 30 day, Stop date: 06/11/15 20:51:00 Trazodone 50 mg, 1 No Longer tab, Route: Active 2014 [facility] PO, Drug form: TAB, Bedtime, Dosing Weight 83.2, kg, PRN Sleep, Start date: 05/12/15 20:43:00, Duration: 30 day, Stop date: 06/11/15 20:42:00, ..Notes: (Same As: Desyrel) Nitroglycerin 0.4 mg, 1 No Longer tab, Route: Active 2014 [facility] SL, Drug form: TAB, Q5Min, Dosing [...] mg, Inactive Oral Tablet Route: PO, 2014 [facility] Drug form: TAB, Daily, Dosing Weight 84.659, kg, Priority: STAT, Start date: 05/12/15 17:33:00, Duration: 30 day, Stop date: 06/11/15 9:00:00 heparin sodium, Route: IVP, No Longer porcine 1000 PRN, 4,300 Active 2014 [facility] UNT/ML unit, 4.3 Injectable mL, Drug [...] Inactive Chewable Tablet Route: PO, 2014 [facility] Drug form: CHEWTAB, ONCE, Dosing Weight 81.364, kg, Priority: STAT, Start date: 05/12/15 16:22:00, Stop date: 05/12/15 16:22:00 Aspirin 325 mg, Inactive Route: 2014 [facility] CHEW, Drug form: CHEWTAB, ONCE, Dosing Weight 81.364, kg, Priority: STAT, Start date: 05/12/15 16:20:00, Stop date: 05/12/15 16:20:00 Aspirin 324 mg, 4 Inactive tab, Route: 2014 [facility] PO, Drug form: CHEWTAB, ONCE, Dosing Weight 81.364, kg, Priority: STAT, Start date: 05/12/15 14:36:00, Stop date: 05/12/15 14:36:00Not es: Take with food. Saline Flush 10 mL, No Longer 0.9% Route: IVP, Active 2014 [facility] Drug Form: INJ, Dosing Weight 81.364, [...] Ranexa 1,000 mg, 2 PO No Longer [facility] tab, Route: Active 2011 [facility] PO, Drug form: TAB, Q12H, Start date: 06/28/11 21:00:00, Duration: 30 day, Stop date: 07/28/11 9:00:00 Lipitor 10 mg, 1 PO No Longer [place] tab, Route: Active 2011 [facility] PO, Drug form: TAB, Bedtime, Start date: 06/28/11 21:00:00, Duration: 30 day, Stop date: 07/27/11 21:00:00 lisinopril 10 mg, 1 PO No Longer [place] tab, Route: Active 2011 [facility] PO, Drug form: TAB, Daily, Start date: 06/28/11 17:00:00, Duration: 30 day, Stop date: 07/28/11 9:00:00 glimepiride 2 mg, 1 PO No Longer [place] tab, Route: Active 2011 [facility] PO, Drug form: TAB, BID, Start date: 06/28/11 17:00:00, Duration: 30 day, Stop date: 07/28/11 9:00:00 Lasix 20 mg, 1 PO No Longer [facility] tab, Route: Active 2011 [facility] PO, Drug form: TAB, BID, Start date: 06/28/11 17:00:00, Duration: 30 day, Stop date: 07/28/11 9:00:00 spironolactone 25 mg, 1 PO No Longer [facility] tab, Route: Active 2011 [facility] PO, Drug form: TAB, Daily, Start date: 06/28/11 17:00:00, Duration: 30 day, Stop date: 07/28/11 9:00:00 Flomax 0.4 mg, 1 PO No Longer [facility] cap, Route: Active 2011 [facility] PO, Drug form: CAP, Daily, Start date: 06/28/11 17:00:00, Duration: 30 day, Stop date: 07/28/11 9:00:00 aspirin 81 mg 81 mg, 1 PO No Longer [facility] tablet, enteric tab, Route: Active 2011 [facility] coated PO, Drug form: ECTAB, Daily, Start date: 06/28/11 17:00:00, Duration: 30 day, Stop date: 07/28/11 9:00:00 acetaminophen-t 1 tab, PO No Longer [facility] ramadol 325 Route: PO, Active 2011 [facility] mg-37.5 mg oral Drug Form: tablet TAB, Daily, Start date: 06/28/11 17:00:00, Duration: 30 day, Stop date: 07/28/11 9:00:00 cefazolin 2 gm, IVPB No Longer [facility] Route: Active 2011 [facility] IVPB, Q8H, Start date: 06/28/11 16:00:00, Duration: 2 doses or times, Stop date: 06/29/11 0:00:00 Sodium Chloride 10 mL, IVP No Longer [facility] 0.9% IV Route: IVP, Active 2011 [facility] Start date: 06/28/11 16:00:00, Duration: 30 day, Stop date: 07/28/11 8:00:00 Coreg 25 mg, 1 PO No Longer [facility] tab, Route: Active 2011 [facility] PO, Drug form: TAB, Q12H, Start date: 06/28/11 15:00:00, Duration: 30 day, Stop date: 07/28/11 9:00:00 nitroglycerin 0.4 mg, 1 SL No Longer [facility] 0.4 mg tab, Route: Active 2011 [facility] sublingual SL, Drug tablet form: TAB, PRN, PRN Chest Pain, Start date: 06/28/11 13:33:00, Duration: 30 day, Stop date: 07/28/11 13:32:00 acetaminophen 500 mg, 1 PO No Longer [facility] tab, Route: Active 2011 [facility] PO, Drug form: TAB, Q4H, PRN Pain, Start date: 06/28/11 11:28:00, Duration: 30 day, Stop date: 07/28/11 11:27:00 acetaminophen-h 2 tab, PO No Longer [facility] ydrocodone 325 Route: PO, Active 2011 [facility] mg-5 mg oral Drug Form: tablet TAB, Q4H, PRN Pain, Start date: 06/28/11 11:28:00, Duration: 30 day, Stop date: 07/28/11 11:27:00 morphine 2 mg, 1 mL, IV No Longer [facility] Sulfate Route: IV, Active 2011 [facility] Drug form: INJ, Q2H, PRN Severe Pain, Start date: 06/28/11 11:28:00, Duration: 30 day, Stop date: 07/28/11 11:27:00 Xanax 0.25 mg, 1 PO No Longer [facility] tab, Route: Active 2011 [facility] PO, Drug form: TAB, Q8H, PRN Anxiety, Start date: 06/28/11 11:28:00, Duration: 30 day, Stop date: 07/28/11 11:27:00 Zofran 4 mg, 2 mL, IVP No Longer [facility] Route: IVP, Active 2011 [facility] Drug form: INJ, Q8H, PRN Nausea & Vomiting, Start date: 06/28/11 11:28:00, Duration: 30 day, Stop date: 07/28/11 11:27:00 Restoril 15 mg, 1 PO No Longer [facility] cap, Route: Active 2011 [facility] PO, Drug form: CAP, Bedtime, PRN Insomnia, Start date: 06/28/11 11:28:00, Duration: 30 day, Stop date: 07/28/11 11:27:00 Sodium Chloride 10 mL, IVP No Longer [facility] 0.9% IV Route: IVP, Active 2011 [facility] PRN, Line Flush, Start date: 06/28/11 11:26:00, Duration: 30 day, Stop date: 07/28/11 11:25:00 multivitamin 1 tab, PO No Longer [facility] Route: PO, Active 2011 [facility] Drug Form: TAB, [id number], Start date: 06/28/11 6:00:00, Duration: 4 doses or times, Stop date: 06/29/11 18:00:00 cefazolin 1 gm, IVPB No Longer [facility] Route: Active 2011 [facility] IVPB, PRE OP, Start date: 06/28/11 5:00:00, Duration: 12 hr, Stop date: 06/28/11 16:59:00 Sodium Chloride 1,000 mL, IV No Longer [facility] 0.45% IV 1,000 Rate: 75 Active 2011 [facility] mL ml/hr, Infuse over: 13.3 hr, Route: IV, Total Volume: 1,000, Start date: 06/28/11 5:00:00, Duration: 24 hr, Stop date: 06/29/11 4:59:00 lidocaine-prilo 1 appl, TOP No Longer [facility] freddie topical Route: TOP, Active 2011 [facility] ONCALL, Drug form: CRM, Start date: 06/28/11 5:00:00, Duration: 1 doses or times Valium 5 mg, 1 PO No Longer [facility] tab, Route: Active 2011 [facility] PO, Drug form: TAB, ONCALL, Start date: 06/28/11 5:00:00, Duration: 1 doses or times Benadryl 50 mg, 2 PO No Longer [facility] tab, Route: Active 2011 [facility] PO, Drug form: TAB, ONCALL, Start [...] 1 mg orally bid [place] [facility] atorvastatin 1 tab(s) orally Active 10 mg orally [place] [facility] once a day (at ular [facility] bedtime) tamsulosin 1 cap(s) orally Active [...] [place] [facility] 2 times a day [facility] nitroglycerin 1 tab(s) sublingua Active 0.4 mg [place] [facility] lly sublingually [facility] every 5 minutes losartan 1 tab(s) orally Active 50 mg orally [place] [facility] once a day ular [facility] Ranexa 1 tab(s) orally Active 1000 mg orally [place] [facility] 2 times a day [facility] Humalog 13 units subcutane Active 100 units/mL [facility] before ously subcutaneously [facility] meals levothyroxine 2 caps orally Active [...] Comments Source Given Updated diphtheria/pertu [facility] ssis, 8 deltoid [place] acel/tetanus adult pneumococcal Right completed [place] 13-valent 6 deltoid [facility] vaccine [place] Results Order Name Results Value Reference Date Interpretation Comments Source Range URINE AND UA <=1.0 0.1 - 1.0 08/06 The STOOL Urobilinogen mg/dL [place] URINE AND UA RBC 1 /HPF 0 - 2 08/06 The [place] URINE AND UA Mucus Few /LPF None Seen 08/06 The STOOL /LPF [place] URINE AND UA Color Yellow Yellow 08/06 The STOOL [place] *NA* (08/06/17 2:20 AM) URINE AND UA Turbidity Clear Clear 08/06 The STOOL [place] (08/06/17 2:20 AM) URINE AND UA Spec Grav 1.006 <=1.030 08/06 The STOOL [place] URINE AND UA Sq Epi Occasional Few /LPF 08/06 The STOOL /LPF [place] URINE AND UA WBC 1 /HPF 0 - 5 08/06 The STOOL [place] URINE AND UA Nitrite Negative Negative 08/06 The STOOL [place] (08/06/17 2:20 AM) URINE AND UA Leuk Est Negative Negative 08/06 The STOOL /2017 [place] (08/06/17 2:20 AM) URINE AND UA pH 5.0 5.0 - 8.0 08/06 The STOOL /2017 [place] URINE AND UA Ketones Negative Negative 08/06 The STOOL mg/dL mg/dL /2017 [place] URINE AND UA Bili Negative Negative 08/06 The STOOL [place] *NA* (08/06/17 2:20 AM) URINE AND UA Protein Negative Negative 08/06 The STOOL mg/dL mg/dL /2017 [place] URINE AND UA Glucose Negative Negative 08/06 The STOOL mg/dL mg/dL /2017 [place] URINE AND UA Blood Negative Negative 08/06 The STOOL [place] (08/06/17 2:20 AM) CHEM PANEL A/G Ratio 1.1 0.7 - 1.6 08/06 The [place] CHEM PANEL AGAP 13.0 meq/L 10.0 - 08/06 The 20.0 [place] CHEM PANEL Globulin 3.2 g/dL 2.7 - 4.2 08/06 The [place] CHEM PANEL B/C Ratio 21 6 - 25 08/06 The [place] CHEM PANEL CO2 25 meq/L 24 - 32 08/06 The [place] CHEM PANEL Chloride Lvl 102 meq/L 95 - 109 08/06 The [place] CHEM PANEL Potassium 4.0 meq/L 3.5 - 5.1 08/06 The Lvl [place] CHEM PANEL Sodium Lvl 136 meq/L 135 - 145 08/06 The [place] CHEM PANEL BUN 38 mg/dL 7 - 22 08/06 The [place] CHEM PANEL Glucose Lvl 246 mg/dL 70 - 99 08/06 The [place] CHEM PANEL Creatinine 1.81 mg/dL 0.50 - 08/06 The Lvl 1.40 [place] CHEM PANEL Alk Phos 134 unit/L 39 - 136 08/06 The [place] CHEM PANEL Bili Total 0.8 mg/dL 0.2 - 1.3 08/06 The [place] CHEM PANEL ALT 29 unit/L 0 - 65 08/06 The [place] CHEM PANEL Albumin Lvl 3.5 g/dL 3.5 - 5.0 08/06 The [place] CHEM PANEL AST 28 unit/L 0 - 37 08/06 The [place] CHEM PANEL Total 6.7 g/dL 6.4 - 8.4 08/06 The [place] CHEM PANEL Calcium Lvl 8.5 mg/dL 8.5 - 10.5 08/06 The [place] CHEM PANEL eGFR 34 08/06 Result Comment: [...] is not recommended in the following populations: [address] Individuals with unstable creatinine concentrations, including [...] MCH 23.8 pg 27.0 - 08/06 The [place] HEMATOLOGY RDW 18.4 % 11.5 - 08/06 The [place] HEMATOLOGY MPV 9.3 fL 7.4 - 10.4 08/06 [place] HEMATOLOGY Platelet 135 K/CMM 133 - 450 08/06 [place] HEMATOLOGY MCHC 31.9 g/dL 32.0 - 08/06 The 36.0 [place] HEMATOLOGY Hct 30.4 % 42.0 - 08/06 The 54.0 [place] HEMATOLOGY MCV 74.5 fL 80.0 - 08/06 The 94.0 [place] HEMATOLOGY RBC 4.08 M/CMM 4.70 - 08/06 The 6.10 [place] HEMATOLOGY Hgb 9.7 g/dL 14.0 - 08/06 The 18.0 [place] HEMATOLOGY WBC 4.8 K/CMM 3.7 - 10.4 08/06 [place] HEMATOLOGY PTT 30.0 s 22.9 - 08/06 The 35.8 [place] HEMATOLOGY PT 14.6 s 12.0 - 08/06 MH The 14.7 [place] HEMATOLOGY INR 1.14 0.85 - 08/06 MH The 1.17 [place] HEMATOLOGY Monocytes # 0.4 K/CMM 0.0 - 0.8 08/06 The [place] HEMATOLOGY Eosinophils 0.2 K/CMM 0.0 - 0.5 08/06 The # [place] HEMATOLOGY Microcyte 1+ None Seen 08/06 The [place] *ABN* (08/06/17 1:09 AM) HEMATOLOGY Basophils 0.5 % 0.0 - 1.0 08/06 The [place] HEMATOLOGY Segs-Bands # 3.4 K/CMM 1.5 - 8.1 08/06 The [place] HEMATOLOGY Lymphocytes 0.8 K/CMM 1.0 - 5.5 08/06 The # [place] HEMATOLOGY Lymphocytes 15.8 % 20.0 - 08/06 The 40.0 [place] HEMATOLOGY Monocytes 8.5 % 2.0 - 12.0 08/06 The [place] HEMATOLOGY Segs 70.6 % 45.0 - 08/06 The 75.0 [place] HEMATOLOGY Eosinophils 4.6 % 0.0 - 4.0 08/06 [place] Brain wo Brain wo CT HEAD WITHOUT CONTRAST 08/06 - The contrast contrast - [place] CT Clinical Indication: - head trauma, plavix. [...] pg/mL <=100 05/30 [facility] pg/mL /2016 [facility] CARDIAC Troponin-I 0.02 ng/mL 0.00 - 05/30 [facility] 0.40 [facility] ELECTROLYT AGAP 10.8 meq/L 10.0 - 05/30 ES 20.0 [facility] ELECTROLYT A/G Ratio 1.4 0.7 - 1.6 05/30 [facility] ELECTROLYT B/C Ratio 15 6 - 25 05/30 [facility] ELECTROLYT Globulin 2.7 g/dL 2.7 - 4.2 05/30 [facility] ELECTROLYT eGFR 29 05/30 Result Comment: The [...] not recommended in the following populations: [facility] 3m2 Individuals with unstable creatinine concentrations, [...] Total 0.8 mg/dL 0.2 - 1.3 05/30 [facility] ELECTROLYT Sodium Lvl 140 meq/L 135 - 145 05/30 [facility] ELECTROLYT Creatinine 2.05 mg/dL 0.50 - 05/30 ES Lvl 1.40 [facility] ELECTROLYT Total 6.4 g/dL 6.4 - 8.4 [...] 31 mg/dL 7 - 22 05/30 [facility] HEMATOLOGY PT 14.7 s 12.0 - 05/30 MH 14.7 [facility] HEMATOLOGY INR 1.15 0.85 - 05/30 1.17 [place] HEMATOLOGY RDW 16.9 % 11.5 - 05/30 14. [place] HEMATOLOGY WBC 3.6 K/CMM 3.7 - 10.4 05/30 [place] HEMATOLOGY RBC 3.64 M/CMM 4.70 - 05/30 6.10 [place] HEMATOLOGY MCH 26.1 pg 27.0 - 05/30 MH 31.0 [facility] HEMATOLOGY MCV 81.6 fL 80.0 - 05/30 94.0 [place] HEMATOLOGY Hct 29.7 % 42.0 - 05/30 54.0 [place] HEMATOLOGY MCHC 31.9 g/dL 32.0 - 05/30 36.0 [place] HEMATOLOGY Hgb 9.5 g/dL 14.0 - 05/30 18.0 [place] HEMATOLOGY Platelet 98 K/CMM 133 - 450 05/30 [facility] HEMATOLOGY MPV 9.3 fL 7.4 - 10.4 05/30 [facility] HEMATOLOGY Eosinophils 0.1 K/CMM 0.0 - 0.5 05/30 MH # /2017 [place] HEMATOLOGY Eosinophils 1.8 % 0.0 - 4.0 05/30 /2016 [place] HEMATOLOGY Monocytes 9.8 % 2.0 - 12.0 05/30 [place] HEMATOLOGY Monocytes # 0.4 K/CMM 0.0 - 0.8 05/30 [facility] HEMATOLOGY Segs-Bands # 2.3 K/CMM 1.5 - 8.1 05/30 [facility] HEMATOLOGY Basophils 0.4 % 0.0 - 1.0 05/30 [facility] HEMATOLOGY Lymphocytes 24.4 % 20.0 - 05/30 MH 40.0 /2016 [facility] HEMATOLOGY Lymphocytes 0.9 K/CMM 1.0 - 5.5 05/30 MH # /2017 [facility] HEMATOLOGY Segs 63.6 % 45.0 - 05/30 MH 75.0 /2016 [facility] Chest Chest [facility] Clinical Indication: - chf; 05/30 - [facility] DX DX - [facility] Comparison: December 28, 2015 Read by: [...] placement. 2. No focal infiltrates . SL: [id number] CHEM PANEL eGFR 41 11/03 Result Comment: [...] not recommended in the following populations: [facility] 3m2 Individuals with unstable creatinine concentrations, [...] 8.5 mg/dL 8.5 - 10.5 11/03 [facility] CHEM PANEL AGAP 10.9 meq/L 10.0 - 11/03 MH 20.0 [facility] CHEM PANEL Chloride Lvl 105 meq/L 95 - 109 11/03 [place] CHEM PANEL CO2 27 meq/L 24 - 32 11/03 [place] CHEM PANEL Sodium Lvl 139 meq/L 135 - 145 11/03 [facility] CHEM PANEL Potassium 3.9 meq/L 3.5 - 5.1 11/03 MH Lvl [facility] CHEM PANEL BUN 20 mg/dL 7 - 11/03 [facility] CHEM PANEL Glucose Lvl 165 mg/dL 70 - 99 11/03 [facility] CHEM PANEL Creatinine 1.54 mg/dL 0.50 - 11/03 Lvl 1.40 [facility] CARDIAC BNP 720 pg/mL <=100 11/03 [facility] pg/mL /2016 [facility] CHEM PANEL Phosphorus 4.1 mg/dL 2.5 - 4.5 11/03 [facility] CHEM PANEL Magnesium 1.9 mg/dL 1.8 - 2.4 11/03 Lvl [facility] LIPIDS VLDL 26 11/03 [facility] LIPIDS Trig 129 mg/dL <=149 11/03 mg/dL [facility] LIPIDS HDL 32 mg/dL >=61 mg/dL 11/03 [facility] LIPIDS Chol 97 mg/dL <=199 11/03 mg/dL [facility] LIPIDS LDL 39 mg/dL <=99 mg/dL 11/03 (Calculated) [facility] LIPIDS CHD Risk 3.03 4.00 - 11/03 7.30 [facility] CARDIAC Troponin-I 0.04 ng/mL 0.00 - 11/03 [facility] 0.40 [facility] CARDIAC Total CK 68 unit/L 12 - 191 11/03 [facility] /2016 [facility] CARDIAC Total CK 65 unit/L 12 - 191 11/03 [facility] /2017 [facility] CARDIAC Troponin-I 0.04 ng/mL 0.00 - 11/03 [facility] 0.40 [facility] CARDIAC BNP 626 pg/mL <=100 11/02 [facility] pg/mL /2016 [facility] CARDIAC Troponin-I 0.04 ng/mL 0.00 - 11/02 [facility] 0.40 [facility] CARDIAC Total CK 64 unit/L 12 - 191 11/02 [facility] /2016 [facility] CARDIAC Total CK 64 unit/L - 191 11/02 EN[facility]YMES [facility] CARDIAC Troponin-I 0.05 ng/mL 0.00 - 11/02 [facility] 0.40 [facility] CHEM PANEL Magnesium 1.9 mg/dL 1.8 - 2.4 11/02 Lvl /2016 [facility] CHEM PANEL B/C Ratio 13 6 - 25 11/02 [facility] CHEM PANEL AGAP 13.6 meq/L 10.0 - 11/02 20.0 [facility] CHEM PANEL Globulin 2.9 g/dL 2.7 - 4.2 11/02 [facility] CHEM PANEL A/G Ratio 1.2 0.7 - 1.6 11/02 [facility] CHEM PANEL eGFR 39 11/02 Result [...] not recommended in the following populations: [facility] 3m2 Individuals with unstable creatinine concentrations, [...] Lvl 3.4 g/dL 3.5 - 5.0 11/02 [facility] CHEM PANEL Total 6.3 g/dL 6.4 - 8.4 11/02 Protein [facility] CHEM PANEL Calcium Lvl 8.5 mg/dL 8.5 - 10.5 11/02 [facility] CHEM PANEL CO2 24 meq/L 24 - 32 11/02 [facility] CHEM PANEL Chloride Lvl 104 meq/L 95 [...] K/CMM 1.0 - 5.5 11/02 # /2016 [facility] HEMATOLOGY Segs-Bands # 2.4 K/CMM 1.5 [...] Basophils 0.4 % 0.0 - 1.0 11/02 [facility] HEMATOLOGY Platelet 97 K/CMM 133 - 450 11/02 [facility] HEMATOLOGY MPV 9.8 fL 7.4 - 10.4 11/02 [facility] HEMATOLOGY RDW 13.8 % 11.5 - 11/02 MH 14.5 [facility] HEMATOLOGY WBC 3.6 K/CMM 3.7 - 10.4 11/02 [facility] HEMATOLOGY RBC 3.45 M/CMM 4.70 - 11/02 MH 6.10 [facility] HEMATOLOGY Hgb 10.5 g/dL 14.0 - 11/02 MH 18.0 [facility] HEMATOLOGY Hct 30.8 % 42.0 - 11/02 MH 54.0 [facility] HEMATOLOGY MCV 89.3 fL 80.0 - 11/02 MH 94.0 [facility] HEMATOLOGY MCHC 34.2 g/dL 32.0 - 11/02 MH 36.0 [facility] HEMATOLOGY MCH 30.6 pg 27.0 - 11/02 MH 31.0 [facility] SPECIAL Hgb A1C 7.4 % <=5.6 % 11/02 CHEMISTRY /2016 [facility] CHEM PANEL eGFR 52 12/29 Result [...] is not recommended in the following populations: [place] [address] Individuals with unstable creatinine concentrations, including patients [...] Lvl 149 mg/dL 70 - 99 12/29 [facility] CHEM PANEL Potassium 4.1 meq/L 3.5 - 5.1 12/29 Lvl [facility] CHEM PANEL Chloride Lvl 108 meq/L 95 - 109 12/29 [facility] CHEM PANEL CO2 30 meq/L 24 - 32 12/29 [facility] CHEM PANEL Calcium Lvl 8.6 mg/dL 8.5 - 10.5 12/29 [facility] CHEM PANEL BUN 19 mg/dL 7 - 12/29 [facility] CHEM PANEL Creatinine 1.28 mg/dL 0.50 - 12/29 [facility] Lvl 1.40 [place] CHEM PANEL Sodium Lvl 145 meq/L 135 - 145 12/29 [facility] CHEM PANEL AGAP 11.1 meq/L 10.0 - 12/29 MH 20.0 [facility] CHEM PANEL Magnesium 2.1 mg/dL 1.8 - 2.4 12/29 Lvl /2015 [facility] HEMATOLOGY MCV 93.2 fL 80.0 - 12/29 MH 94.0 /2015 [facility] HEMATOLOGY Platelet 106 K/CMM 133 - 450 12/29 /2015 [facility] HEMATOLOGY MPV 9.3 fL 7.4 - 10.4 12/29 /2015 [facility] HEMATOLOGY MCH 31.2 pg 27.0 - 12/29 MH 31.0 /2015 [facility] HEMATOLOGY RDW 14.7 % 11.5 - 12/29 MH 14.5 /2015 [facility] HEMATOLOGY MCHC 33.5 g/dL 32.0 - 12/29 MH 36.0 /2015 [facility] HEMATOLOGY WBC 4.1 K/CMM 3.7 - 10.4 12/29 MH /2015 [facility] HEMATOLOGY RBC 3.63 M/CMM 4.70 - 12/29 MH 6.10 /2015 [facility] HEMATOLOGY Hct 33.8 % 42.0 - 12/29 MH 54.0 /2015 [facility] HEMATOLOGY Hgb 11.3 g/dL 14.0 - 12/29 MH 18.0 [facility] HEMATOLOGY Eosinophils 0.2 K/CMM 0.0 - 0.5 12/29 MH # /2015 [facility] HEMATOLOGY Segs-Bands # 2.4 K/CMM 1.5 - 8.1 12/29 /2015 [facility] HEMATOLOGY Monocytes # 0.4 K/CMM 0.0 - 0.8 12/29 /2015 [facility] HEMATOLOGY Lymphocytes 1.1 K/CMM 1.0 - 5.5 12/29 MH # /2015 [facility] HEMATOLOGY Basophils 0.4 % 0.0 - 1.0 12/29 [facility] HEMATOLOGY Eosinophils 4.2 % 0.0 - 4.0 12/29 [facility] HEMATOLOGY Segs 58.6 % 45.0 - 12/29 75.0 /2015 [facility] HEMATOLOGY Monocytes 10.3 % 2.0 - 12.0 12/29 /2015 [facility] HEMATOLOGY Lymphocytes 26.5 % 20.0 - 12/29 40.0 /2015 [facility] HEMATOLOGY POC 128 s 12/28 [facility] [employer] HEMATOLOGY PTT 75.4 s 22.9 - 12/28 35.8 /2015 [facility] CHEM PANEL Magnesium 2.0 mg/dL 1.8 - 2.4 12/28 Lvl /2015 [facility] CHEM PANEL Glucose Lvl 116 mg/dL 70 - 99 12/28 [facility] CHEM PANEL Potassium 3.8 meq/L 3.5 - 5.1 12/28 MH Lvl /2015 [facility] CHEM PANEL AGAP 13.8 meq/L 10.0 [...] not recommended in the following populations: [facility] 3m2 Individuals with unstable creatinine concentrations, [...] Platelet 105 K/CMM 133 - 450 12/28 [facility] HEMATOLOGY RDW 14.6 % 11.5 - 12/28 MH 14. [facility] HEMATOLOGY MCH 30.7 pg 27.0 - 12/28 MH 31.0 [facility] HEMATOLOGY MCHC 33.2 g/dL 32.0 - 12/28 MH 36.0 [facility] HEMATOLOGY MPV 9.5 fL 7.4 - 10.4 12/28 [facility] HEMATOLOGY Hct 33.6 % 42.0 - 12/28 MH 54.0 [facility] HEMATOLOGY Hgb 11.2 g/dL 14.0 - 12/28 MH 18.0 [facility] HEMATOLOGY RBC 3.63 M/CMM 4.70 - 12/28 MH 6.10 /2015 [facility] HEMATOLOGY MCV 92.5 fL 80.0 - 12/28 94.0 /2015 [facility] HEMATOLOGY WBC 4.3 K/CMM 3.7 - 10.4 12/28 /2015 [facility] HEMATOLOGY PTT 47.5 s 22.9 - 12/28 MH 35.8 /2015 [facility] LIPIDS VLDL 45 12/28 /2015 [facility] LIPIDS LDL 69 mg/dL <=99 mg/dL 12/28 (Calculated) [facility] LIPIDS HDL 31 mg/dL >=61 mg/dL 12/28 [facility] LIPIDS CHD Risk 4.68 4.00 - 12/28 MH 7.30 /2015 [facility] LIPIDS Trig 225 mg/dL <=149 12/28 mg/dL /2015 [facility] LIPIDS Chol 145 mg/dL <=199 12/28 mg/dL /2015 [facility] CARDIAC Troponin-I 0.47 ng/mL 0.00 - 12/28 ENZYMES 0.40 /2015 [facility] CARDIAC Total CK 157 unit/L 12 - 12/28 ENZYMES /2015 [facility] CARDIAC CK MB Index 3.8 0.0 - 2.5 12/28 ENZYMES /2016 [facility] CARDIAC CK MB 5.9 ng/mL 0.5 - 3.6 12/28 ENZYMES /2015 [facility] HEMATOLOGY PTT 63.8 s . - 12/28 35. [facility] CARDIAC Troponin-I 0.71 ng/mL 0.00 - 12/28 Result ENZYMES 0.40 /2015 Comment: [facility] Critical Result(s) called to Ghazal Michael RN at 12/28/2015 20:26 by NIKOLE. Read back OK. CARDIAC Total CK 169 unit/L 12 - 191 12/28 ENZYMES /2016 [facility] CARDIAC CK MB Index 3.8 0.0 - 2.5 12/28 MH ENZYMES /2016 [facility] CARDIAC CK MB 6.5 ng/mL 0.5 - 3.6 12/28 MH ENZYMES /2015 [facility] CARDIAC CK MB Index 4.9 0.0 - 2.5 12/27 MH ENZYMES /2015 [facility] CARDIAC CK MB 8.8 ng/mL 0.5 - 3.6 12/27 MH ENZYMES /2015 [facility] CARDIAC Troponin-I 0.69 ng/mL 0.00 - 12/27 Result ENZYMES 0.40 Comment: [facility] Critical Result(s) called to Gris Caba RN at 12/28/2015 16:14 by NIKOLE. Read back OK. CARDIAC Total CK 180 unit/L 12 - 191 12/27 ENZYMES /2015 [facility] CARDIAC BNP 402 pg/mL <=100 12/27 ENZYMES pg/mL /2015 [facility] CHEM PANEL Lipase Lvl 73 unit/L 73 - 393 12/27 [facility] CHEM PANEL A/G Ratio 1.1 0.7 - 1.6 12/27 [facility] CHEM PANEL Globulin 3.3 g/dL 2.0 - 4.0 12/27 [facility] CHEM PANEL B/C Ratio 14 6 - 25 12/27 [facility] CHEM PANEL AGAP 9.6 meq/L 10.0 - 12/27 20.0 [facility] CHEM PANEL eGFR 43 12/27 Result Comment: [...] not recommended in the following populations: [facility] 3m2 Individuals with unstable creatinine concentrations, [...] Phos 83 unit/L 39 - 136 12/27 [facility] CHEM PANEL AST 30 unit/L 0 - 37 12/27 [facility] CHEM PANEL ALT 29 unit/L 0 - 65 12/27 [facility] CHEM PANEL Bili Total 0.9 mg/dL 0.2 - 1.3 12/27 [facility] CHEM PANEL CO2 29 meq/L 24 - 32 12/27 [facility] CHEM PANEL Chloride Lvl 104 meq/L 95 - 109 12/27 [facility] CHEM PANEL Calcium Lvl 9.1 mg/dL 8.5 - 10.5 12/27 [facility] CHEM PANEL Albumin Lvl 3.6 g/dL [...] 0.3 K/CMM 0.0 - 0.8 12/27 [facility] HEMATOLOGY Segs 66.2 % 45.0 - 12/27 MH 75.0 /2015 [facility] HEMATOLOGY Lymphocytes 0.9 K/CMM 1.0 - 5.5 12/27 MH # [facility] HEMATOLOGY Basophils 0.6 % 0.0 - 1.0 12/27 [facility] HEMATOLOGY Segs-Bands # 2.8 K/CMM 1.5 - 8.1 12/27 [facility] HEMATOLOGY Monocytes 7.9 % 2.0 - 12.0 12/27 [facility] HEMATOLOGY Eosinophils 3.2 % 0.0 - 4.0 12/27 [facility] HEMATOLOGY Lymphocytes 22.1 % 20.0 - 12/27 MH 40.0 /2015 [facility] HEMATOLOGY INR 1.04 0.85 - 12/27 MH 1.17 [facility] HEMATOLOGY PT 13.9 s 12.0 - 12/27 MH 14.7 [facility] HEMATOLOGY Hct 36.1 % 42.0 - 12/27 MH 54.0 /2016 [facility] HEMATOLOGY Hgb 12.0 g/dL 14.0 - 12/27 MH 18.0 /2015 [facility] HEMATOLOGY RBC 3.89 M/CMM 4.70 - 12/27 MH 6.10 [facility] HEMATOLOGY MPV 9.4 fL 7.4 - 10.4 12/27 /2015 [facility] HEMATOLOGY Platelet 115 K/CMM 133 - 450 12/27 [facility] HEMATOLOGY RDW 14.7 % 11.5 - 12/27 MH 14.5 /2016 [facility] HEMATOLOGY MCHC 33.1 g/dL 32.0 - 12/27 36.0 /2015 [facility] HEMATOLOGY MCV 92.8 fL 80.0 - 12/27 94.0 /2015 [facility] HEMATOLOGY MCH 30.7 pg 27.0 - 12/27 31.0 [facility] HEMATOLOGY WBC 4.2 K/CMM 3.7 - 10.4 12/27 [facility] Chest Chest 1view Clinical Indication: Left-sided chest pain 12/27 - 1view DX DX /2015 - [facility] Comparison: 05/12/2015 Read by: Edna Schrader [...] IMPRESSION: No acute infiltrates or effusions. SL: [id number] CHEM PANEL Phosphorus 3.7 mg/dL 2.5 - 4.5 05/22 [facility] CHEM PANEL Magnesium 2.1 mg/dL 1.8 - 2.4 05/22 [facility] CHEM PANEL eGFR 49 05/22 Result Comment: The eGFR is calculated using the CKD-EPI formula. In most young, healthy individuals the eGFR will be >90 mL/ min/1.73m2. The eGFR declines with age. An eGFR of 60-89 may be normal in [facility] mL/min/1.7 some populations, particularly the elderly, for whom the CKD-EPI formula has not been extensively validated. Use of the eGFR is not recommended in the following populations: [place] [address] Center Individuals with unstable creatinine concentrations, including [...] mg/dL 8.5 - 10.5 05/22 [facility] CHEM PANEL Creatinine 1.35 mg/dL 0.50 - 05/22 Lvl 1.40 /2014 [facility] CHEM PANEL Chloride Lvl 108 meq/L 95 - 109 05/22 [facility] CHEM PANEL CO2 26 meq/L 24 - 32 05/22 [facility] CHEM PANEL Sodium Lvl 141 meq/L 135 - 145 05/22 [facility] CHEM PANEL Potassium 4.5 meq/L 3.5 - 5.1 05/22 [facility] Lvl /2014 [facility] CHEM PANEL Glucose Lvl 110 mg/dL 70 - 99 05/22 [facility] CHEM PANEL BUN 22 mg/dL 7 - 22 05/22 [facility] CHEM PANEL AGAP 11.5 meq/L 10.0 - 05/22 20.0 [facility] HEMATOLOGY RDW 13.1 % 11.5 - 05/22 14.5 [facility] HEMATOLOGY MCHC 32.5 g/dL 32.0 - 05/22 36.0 [facility] HEMATOLOGY MCH 32.3 pg 27.0 - 05/22 31.0 [facility] HEMATOLOGY MCV 99.6 fL 80.0 - 05/22 94.0 [facility] HEMATOLOGY Hct 31.2 % 42.0 - 05/22 54.0 [facility] HEMATOLOGY MPV 9.4 fL 7.4 - 10.4 05/22 [facility] HEMATOLOGY Platelet 127 K/CMM 133 - 450 05/22 [facility] HEMATOLOGY Hgb 10.1 g/dL 14.0 - 05/22 18.0 [facility] HEMATOLOGY RBC 3.14 M/CMM 4.70 - 12 6.10 [facility] HEMATOLOGY WBC 4.4 K/CMM 3.7 - 10.4 05/22 [facility] HEMATOLOGY Eosinophils 0.2 K/CMM 0.0 - 0.5 05/22 [facility] # [facility] HEMATOLOGY Monocytes # 0.5 K/CMM 0.0 - 0.8 05/22 [facility] HEMATOLOGY Lymphocytes 19.4 % 20.0 - 05/22 [place] 40.0 /2014 [facility] HEMATOLOGY Segs 64.5 % 45.0 - 05/22 [place] 75.0 [facility] HEMATOLOGY Lymphocytes 0.9 K/CMM 1.0 - 5.5 05/22 [place] # /2014 [facility] HEMATOLOGY Segs-Bands # 2.8 K/CMM 1.5 - 8.1 05/22 [facility] HEMATOLOGY Basophils 0.5 % 0.0 - 1.0 05/22 [facility] HEMATOLOGY Eosinophils 3.9 % 0.0 - 4.0 05/22 [facility] HEMATOLOGY Monocytes 11.7 % 2.0 - 12.0 05/22 [facility] HVI VAS HVI VAS INDICATION: groin hematoma 05/22 - [facility] Arterial/b Arterial/by - [facility] ypass ass Lower This report was dictated by a Robotics Engineer/ Fellow. I have personally reviewed the images [...] fistula. CARDIAC Troponin-T 0.014 0.000 - 05/21 [facility] ENZYMES ng/mL 0.100 /2014 [facility] CARDIAC Troponin-I 0.04 ng/mL 0.00 - 05/21 [facility] ENZYMES 0.40 /2014 [facility] CARDIAC Total CK 34 unit/L 12 - 191 05/21 [facility] ENZYMES /2014 [facility] CHEM PANEL eGFR 63 05/21 Result Comment: The eGFR is calculated using the CKD-EPI formula. In most young, healthy individuals the eGFR will be >90 mL/ min/1.73m2. The eGFR declines with age. An eGFR of 60-89 may be normal in [facility] mL/min/1.7 some populations, particularly the elderly, for whom the CKD-EPI formula has not been extensively validated. Use of the eGFR is not recommended in the following populations: [address] Individuals with unstable creatinine concentrations, including [...] PANEL AGAP 15.1 meq/L 10.0 - 05/21 [facility] 20.0 [facility] CHEM PANEL Calcium Lvl 8.5 mg/dL 8.5 - 10.5 05/[address] CHEM PANEL CO2 20 meq/L 24 - 32 05/[address] CHEM PANEL Creatinine 1.09 mg/dL 0.50 - 05/21 [facility] Lvl 1.40 [facility] CHEM PANEL BUN 17 mg/dL 7 - 22 05/[address] CHEM PANEL Potassium 4.1 meq/L 3.5 - 5.1 05/[address] CHEM PANEL Sodium Lvl 140 meq/L 135 - 145 05/[address] CHEM PANEL Glucose Lvl 177 mg/dL 70 - 99 05/[address] CHEM PANEL Chloride Lvl 109 meq/L 95 - 109 05/[address] CHEM PANEL Phosphorus 4.2 mg/dL 2.5 - 4.5 05/[address] CHEM PANEL Magnesium 2.2 mg/dL 1.8 - 2.4 05/21 [facility] /[address] [place] [address] HEMATOLOGY Macrocyte 1+ None Seen 05/21 [facility] [address] [place] [address]* Center (05/21/15 12:13 AM) HEMATOLOGY Lymphocytes 0.6 K/CMM 1.0 - 5.5 05/21 [facility] /2014 [facility] HEMATOLOGY Basophils 0.4 % 0.0 - 1.0 05/[address] HEMATOLOGY Monocytes # 0.4 K/CMM 0.0 - 0.8 12/ /2014 [facility] HEMATOLOGY Lymphocytes 15.6 % 20.0 - 12/ [place] 40.0 /2014 [facility] HEMATOLOGY Segs-Bands # 3.0 K/CMM 1.5 - 8.1 12 [facility] HEMATOLOGY Monocytes 8.8 % 2.0 - 12.0 12/ [facility] HEMATOLOGY Eosinophils 0.7 % 0.0 - 4.0 12 [facility] HEMATOLOGY Segs 74.5 % 45.0 - 12/ [place] 75.0 /2014 [facility] HEMATOLOGY INR 1.11 0.85 - 12 [place] 1.17 /2014 [facility] HEMATOLOGY PTT 30.1 s 22.9 - 12/ [place] 35.8 /2014 [facility] HEMATOLOGY PT 14.6 s 12.0 - 12 [place] 14.7 [facility] HEMATOLOGY Platelet 117 K/CMM 133 - 450 12 [facility] HEMATOLOGY MPV 9.6 fL 7.4 - 10.4 12 [facility] HEMATOLOGY MCH 33.1 pg 27.0 - 12 [place] 31.0 /2014 [facility] HEMATOLOGY MCHC 32.9 g/dL 32.0 - 12 [place] 36.0 /2014 [facility] HEMATOLOGY RDW 13.2 % 11.5 - 12/12 [place] 14.5 /2014 [facility] HEMATOLOGY Hgb 10.2 g/dL 14.0 - 12 [place] 18.0 /2014 [facility] HEMATOLOGY Hct 30.9 % 42.0 - 12 [place] 54.0 [facility] HEMATOLOGY MCV 100.6 fL 80.0 - 12 [place] 94.0 [facility] HEMATOLOGY RBC 3.07 M/CMM 4.70 - 12 [place] 6.10 [facility] HEMATOLOGY WBC 4.0 K/CMM 3.7 - 10.4 12 [facility] PARATHYROI Ca Norm WB 1.13 1.05 - 05/21 [facility] D PROFILE mMol/L 1. [facility] PARATHYROI Ca Ion WB 1.09 1.05 - 05/21 [facility] D PROFILE mMol/L 1. [facility] CHEM PANEL Lactic Acid 0.7 mMol/L 0.5 - 2.2 05/20 [facility] CHEM PANEL Magnesium 1.4 mg/dL 1.8 - 2.4 05/20 [facility] CHEM PANEL Phosphorus 3.5 mg/dL 2.5 - 4.5 05/20 [facility] CHEM PANEL eGFR 78 05/20 Result Comment: The eGFR is calculated using the CKD-EPI formula. In most young, healthy individuals the eGFR will be >90 mL/ min/1.73m2. The eGFR declines with age. An eGFR of 60-89 may be normal in [facility] mL/min/1.7 some populations, particularly the elderly, for whom the CKD-EPI formula has not been extensively validated. Use of the eGFR is not recommended in the following populations: [address] Individuals with unstable creatinine concentrations, including [...] AGAP 14.7 meq/L 10.0 - 05/20 20.0 [facility] CHEM PANEL Glucose Lvl 108 mg/dL 70 - 99 05/20 [facility] CHEM PANEL Sodium Lvl 145 meq/L 135 - 145 05/20 [facility] CHEM PANEL Potassium 2.7 meq/L 3.5 - 5.1 05/20 Result Comment: [facility] Critical Center Result(s) called to HANK TANNER at 05/20/2015 14:22_ by CN_. Read back OK. CHEM PANEL BUN 12 mg/dL 7 - 22 05/20 [facility] CHEM PANEL Creatinine 0.92 mg/dL 0.50 - 05/20 [facility] Lvl 1. [facility] CHEM PANEL Chloride Lvl 113 meq/L 95 - 109 05/20 [facility] CHEM PANEL CO2 20 meq/L 24 - 32 12/ /2014 [facility] HEMATOLOGY PTT >200 22.9 - 12 Result [facility] seconds 35.8 /2014 Comment: [facility] Result(s) called to Benigno Jennings at 05/20/2015 14:[address] Read back OK. HEMATOLOGY PT 16.3 s 12.0 - 05/20 [place] 14.7 /2014 [facility] HEMATOLOGY INR 1.28 0.85 - 05/20 [place] 1.17 /2014 [facility] HEMATOLOGY Platelet 108 K/CMM 133 - 450 12 [facility] HEMATOLOGY MPV 9.8 fL 7.4 - 10.4 12 [facility] HEMATOLOGY MCV 100.5 fL 80.0 - 05/20 [facility] 94.0 [facility] HEMATOLOGY RDW 13.3 % 11.5 - 12 [facility] 14.5 /2014 [facility] HEMATOLOGY MCHC 32.9 g/dL 32.0 - 12 [place] 36.0 [facility] HEMATOLOGY MCH 33.1 pg 27.0 - 05/20 [place] 31.0 [facility] HEMATOLOGY RBC 2.95 M/CMM 4.70 - 05/20 [place] 6.10 /2014 [facility] HEMATOLOGY Hct 29.7 % 42.0 - 05/20 [facility] 54.0 [facility] HEMATOLOGY Hgb 9.8 g/dL 14.0 - 05/20 18.0 /2014 [facility] HEMATOLOGY WBC 3.6 K/CMM 3.7 - 10.4 12 [facility] HEMATOLOGY Monocytes 11.3 % 2.0 - 12.0 05/20 [facility] HEMATOLOGY Segs 60.4 % 45.0 - 12 [place] 75.0 /2014 [facility] HEMATOLOGY Lymphocytes 23.3 % 20.0 - 12 [place] 40.0 /2014 [facility] HEMATOLOGY Segs-Bands # 2.2 K/CMM 1.5 - 8.1 05/20 [facility] HEMATOLOGY Lymphocytes 0.9 K/CMM 1.0 - 5.5 12 [facility] # /2014 [facility] HEMATOLOGY Basophils 0.3 % 0.0 - 1.0 05/20 /2014 [facility] HEMATOLOGY Eosinophils 4.7 % 0.0 - 4.0 05/20 [facility] HEMATOLOGY Monocytes # 0.4 K/CMM 0.0 - 0.8 05/20 /2014 [facility] HEMATOLOGY Macrocyte 1+ None [facility] (05[facility]20/15 1:48 PM) HEMATOLOGY Eosinophils 0.2 K/CMM 0.0 - 0.5 05/20 [facility] # /2014 [facility] PARATHYROI Ca Ion WB 1.12 1.05 - 05/20 [facility] D PROFILE mMol/L 1. [facility] PARATHYROI Ca Norm WB 1.09 1.05 - 05/20 [facility] D PROFILE mMol/L 1. [facility] CHEM PANEL Globulin 3.0 g/dL 2.0 - 4.0 05/20 [facility] CHEM PANEL B/C Ratio 15 6 - 25 05/20 [facility] /[address] [place] [address] CHEM PANEL Bili Total 0.8 mg/dL 0.2 - 1.3 05/20 /2014 [facility] CHEM PANEL A/G Ratio 1.1 0.7 - 1.6 05/20 /[address] [place] [address] CHEM PANEL Alk Phos 73 unit/L 39 - 136 05/20 [facility] [address] [place] [address] CHEM PANEL Albumin Lvl 3.2 g/dL 3.5 - 5.0 05/[address] [place] [address] CHEM PANEL ALT 30 unit/L 0 - 65 05/20 [facility] CHEM PANEL AST 20 unit/L 0 - 37 05/[address] [place] [address] CHEM PANEL Total 6.2 g/dL 6.4 - 8.4 05/20 [facility] HEMATOLOGY INR 1.06 0.85 - 05/20 [place] 1.17 [facility] HEMATOLOGY PT 14.1 s 12.0 - 05/20 [place] 14.7 [facility] HEMATOLOGY PTT 67.4 s 22.9 - 05/20 [place] 35.8 [facility] HEMATOLOGY Eosinophils 0.2 K/CMM 0.0 - 0.5 05/20 [facility] /2014 [facility] CHEM PANEL AST 27 unit/L 0 - 37 05/17 /[address] [place] [address] CHEM PANEL ALT 30 unit/L 0 - 65 05/17 /2015 [facility] CHEM PANEL Albumin Lvl 3.0 g/dL 3.5 - 5.0 05/17 [facility] CHEM PANEL Alk Phos 65 unit/L 39 - 136 05/17 [facility] CHEM PANEL B/C Ratio 11 6 - 25 05/17 [facility] CHEM PANEL Bili Total 0.8 mg/dL 0.2 - 1.3 05/17 [facility] CHEM PANEL Total 5.6 g/dL 6.4 - 8.4 05/17 [facility] CHEM PANEL A/G Ratio 1.2 0.7 - 1.6 05/17 [facility] CHEM PANEL Globulin 2.6 g/dL 2.0 - 4.0 05/17 [facility] HEMATOLOGY PTT 58.0 s 22.9 - 05/16 35.8 [facility] CHEM PANEL Phosphorus 3.0 mg/dL 2.5 - 4.5 05/15 [facility] CHEM PANEL Magnesium 1.8 mg/dL 1.8 - 2.4 05/15 Lv [facility] ELECTROLYT AGAP 8.9 meq/L 10.0 - [...] is not recommended in the following populations: [address] Individuals with unstable creatinine concentrations, including [...] 27 meq/L 24 - 32 05/15 ES [facility] ELECTROLYT Sodium Lvl 141 meq/L 135 [...] M/CMM 4.70 - 12/ MH 6.10 /2014 [facility] HEMATOLOGY Hgb 11.0 g/dL 14.0 - 12 18.0 /2014 [facility] HEMATOLOGY WBC 4.7 K/CMM 3.7 - 10.4 05/15 [facility] HEMATOLOGY PTT 55.3 s 22.9 - 05/14 [facility] 35.8 /2014 [facility] CHEM PANEL Phosphorus 3.2 mg/dL 2.5 - 4.5 05/14 [facility] CHEM PANEL Magnesium 1.7 mg/dL 1.8 - 2.4 05/14 Lv [facility] CHEM PANEL eGFR 52 05/14 Result [...] is not recommended in the following populations: [place] [address] Individuals with unstable creatinine concentrations, including patients [...] 108 meq/L 95 - 109 05/14 [facility] CHEM PANEL Potassium 3.9 meq/L 3.5 - 5.1 05/14 [facility] CHEM PANEL Sodium Lvl 142 meq/L 135 - 145 05/14 [facility] CHEM PANEL Creatinine 1.29 mg/dL 0.50 - 05/14 Lvl 1.40 /2014 [facility] CHEM PANEL CO2 26 meq/L 24 - 32 05/14 [facility] CHEM PANEL Calcium Lvl 8.2 mg/dL 8.5 - 10.5 05/14 [facility] CHEM PANEL BUN 20 mg/dL 7 - 22 05/14 [facility] CHEM PANEL Glucose Lvl 111 mg/dL 70 - 99 05/14 [facility] CHEM PANEL AGAP 11.9 meq/L 10.0 - 05/14 MH 20.0 /2014 [facility] HEMATOLOGY MPV 9.3 fL 7.4 - 10.4 12 /2014 [facility] HEMATOLOGY RDW 13.2 % 11.5 - 12 [facility] 14.5 /2014 [facility] HEMATOLOGY MCHC 33.2 g/dL 32.0 - 12 [facility] 36.0 /2014 [facility] HEMATOLOGY Platelet 102 K/CMM 133 - 450 12 /2014 [facility] HEMATOLOGY MCH 33.2 pg 27.0 - 12 [facility] 31.0 /2014 [facility] HEMATOLOGY Hct 32.7 % 42.0 - 12 [facility] 54.0 /2014 [facility] HEMATOLOGY MCV 99.9 fL 80.0 - 05/14 [facility] 94.0 /2014 [facility] HEMATOLOGY WBC 5.1 K/CMM 3.7 - 10.4 05/14 /2014 [facility] HEMATOLOGY RBC 3.27 M/CMM 4.70 - 05/14 [facility] 6.10 /2014 [facility] HEMATOLOGY Hgb 10.9 g/dL 14.0 - 05/14 MH 18.0 /2014 [facility] HEMATOLOGY Lymphocytes 1.4 K/CMM 1.0 - 5.5 05/14 MH # /2015 [facility] HEMATOLOGY Monocytes # 0.5 K/CMM 0.0 - 0.8 05/14 /2014 [facility] HEMATOLOGY Segs-Bands # 3.0 K/CMM 1.5 - 8.1 05/14 /2014 [facility] HEMATOLOGY Basophils 0.5 % 0.0 - 1.0 05/14 /2014 [facility] HEMATOLOGY Eosinophils 0.2 K/CMM 0.0 - 0.5 05/14 # /2015 [facility] HEMATOLOGY Macrocyte 1+ None Seen 05/14 /2014 [facility] *ABN* (05/14/15 6:20 AM) HEMATOLOGY Segs 58.7 % 45.0 - 12 MH 75.0 /2015 [facility] HEMATOLOGY Lymphocytes 26.6 % 20.0 - 12 MH 40.0 /2014 [facility] HEMATOLOGY Monocytes 10.1 % 2.0 - 12.0 05/14 /2014 [facility] HEMATOLOGY Eosinophils 4.1 % 0.0 - 4.0 05/14 /2014 [facility] CARDIAC Total CK 74 unit/L 12 - 191 05/13 ENZYMES /2015 [facility] CARDIAC Troponin-I 0.69 ng/mL 0.00 - 12 Result ENZYMES 0.40 /2015 Comment: [facility] Critical Result(s) called to Taz Hebert RN at 05/13/2015 03:08 by shyann. Read back OK. CHEM PANEL Phosphorus 3.0 mg/dL 2.5 - 4.5 05/13 [facility] CHEM PANEL Magnesium 1.8 mg/dL 1.8 - 2.4 05/13 Lvl [facility] ELECTROLYT AGAP 9.0 meq/L 10.0 - 05/13 ES 20.0 /2014 [facility] ELECTROLYT eGFR 48 05/13 Result Comment: The eGFR is calculated using the CKD-EPI formula. In most young, healthy individuals the eGFR will be >90 mL/ min/1.73m2. The eGFR declines with age. An eGFR of 60-89 may be normal in [facility] mL/min/1.7 /2014 some populations, particularly the elderly, for whom the CKD-EPI formula has not been extensively validated. Use of the eGFR is not recommended in the following populations: [facility] 3m2 Individuals with unstable creatinine concentrations, [...] 8.8 mg/dL 8.5 - 10.5 05/13 ES [facility] ELECTROLYT CO2 28 meq/L 24 - 32 05/13 ES [facility] ELECTROLYT Chloride Lvl 108 meq/L 95 - 109 05/13 ES /2014 [facility] ELECTROLYT Potassium 4.0 meq/L 3.5 - 5.1 05/13 ES Lvl [facility] ELECTROLYT Glucose Lvl 127 mg/dL 70 - 99 05/13 ES [facility] ELECTROLYT Sodium Lvl 141 meq/L 135 - 145 05/13 ES /2014 [facility] ELECTROLYT Creatinine 1.36 mg/dL 0.50 - 05/13 ES Lvl 1.40 /2014 [facility] ELECTROLYT BUN 29 mg/dL 7 - 22 05/13 ES /2014 [facility] HEMATOLOGY Eosinophils 0.1 K/CMM 0.0 - 0.5 05/13 # /2014 [facility] HEMATOLOGY Monocytes # 0.4 K/CMM 0.0 - 0.8 05/13 [facility] HEMATOLOGY Macrocyte 1+ None Seen 05/13 [facility] *ABN* (05/13/15 2:07 AM) HEMATOLOGY Segs-Bands # 2.7 K/CMM 1.5 - 8.1 05/13 [facility] HEMATOLOGY Basophils 0.4 % 0.0 - 1.0 05/13 [facility] HEMATOLOGY Eosinophils 3.2 % 0.0 - 4.0 05/13 [facility] HEMATOLOGY Lymphocytes 1.2 K/CMM 1.0 - 5.5 05/13 MH # /2014 [facility] HEMATOLOGY Monocytes 8.6 % 2.0 - 12.0 05/13 [facility] HEMATOLOGY Lymphocytes 27.6 % 20.0 - 12 MH 40.0 /2014 [facility] HEMATOLOGY Segs 60.2 % 45.0 - 05/13 MH 75.0 [facility] HEMATOLOGY WBC 4.4 K/CMM 3.7 - 10.4 05/13 [facility] HEMATOLOGY RBC 3.33 M/CMM 4.70 - 05/13 MH 6.10 [facility] HEMATOLOGY Platelet 114 K/CMM 133 - 450 05/13 [facility] HEMATOLOGY MPV 10.0 fL 7.4 - 10.4 05/13 /2014 [facility] HEMATOLOGY Hgb 11.3 g/dL 14.0 - 05/13 MH 18.0 [facility] HEMATOLOGY Hct 33.1 % 42.0 - 05/13 MH 54.0 [facility] HEMATOLOGY RDW 13.4 % 11.5 - 05/13 MH 14.5 [facility] HEMATOLOGY MCV 99.4 fL 80.0 - 05/13 MH 94.0 [facility] HEMATOLOGY MCH 34.0 pg 27.0 - 12 MH 31.0 [facility] HEMATOLOGY MCHC 34.2 g/dL 32.0 - 12 MH 36.0 /2014 [facility] LIPIDS Trig 302 mg/dL <=149 05/13 MH mg/dL /2014 [facility] LIPIDS VLDL 60 05/13 [facility] LIPIDS Chol 143 mg/dL <=199 05/13 mg/dL /2014 [facility] LIPIDS CHD Risk 5.11 4.00 - 12 MH 7.30 /2014 [facility] LIPIDS HDL 28 mg/dL >=61 mg/dL 05/13 [facility] LIPIDS LDL 55 mg/dL <=99 mg/dL 12/04 MH (Calculated) /2014 [facility] CARDIAC CK MB Index 3.9 0.0 - 2.5 05/13 MH ENZYMES /2014 [facility] CARDIAC CK MB 3.3 ng/mL 0.5 - 3.6 05/13 MH ENZYMES /2014 [facility] CARDIAC Total CK 85 unit/L 12 - 191 05/13 MH ENZYMES /2014 [facility] CARDIAC Troponin-I 0.69 ng/mL 0.00 - 12 Result MH ENZYMES 0.40 /2015 Comment: [facility] Critical Result(s) called to Taz Hebert RN at 05/12/2015 22:11 by shyann. Read back OK. HEMATOLOGY INR 1.14 0.85 - 05/13 MH 1.17 /2014 [facility] HEMATOLOGY PT 14.9 s 12.0 - 05/13 MH 14.7 /2014 [facility] CARDIAC BNP 408 pg/mL <=100 05/12 ENZYMES pg/mL /2014 [facility] CARDIAC Troponin-I 1.25 ng/mL 0.00 - 05/12 Result ENZYMES 0.40 /2014 Comment: [facility] Critical Result(s) called to jose alfredo shearer at _05/12/2015 15:38 bybz_. Read back OK. CARDIAC Total CK 112 unit/L 12 - 191 05/12 ENZYMES /2014 [facility] CARDIAC CK MB 4.5 ng/mL 0.5 - 3.6 05/12 ENZYMES /2014 [facility] CARDIAC CK MB Index 4.0 0.0 [...] INR 1.02 0.85 - 12/03 1.17 /2014 [facility] HEMATOLOGY PT 13.7 s 12.0 - 05/12 14.7 /2014 [facility] URINE AND UA Leuk Est Negative Negative 05/12 [facility] (05/12/15 2:56 PM) URINE AND UA Bili Negative Negative 05/12 [facility] *NA* (05/12/15 2:56 PM) URINE AND UA Blood Negative Negative 05/12 [facility] (05/12/15 2:56 PM) URINE AND UA Nitrite Negative Negative 05/12 STOOL [facility] (05/12/15 2:56 PM) URINE AND UA 0.2 EU/dL 0.1 - 1.0 05/12 STOOL Urobilinogen [facility] URINE AND UA pH 5.0 5.0 - 8.0 05/12 [facility] URINE AND UA Color Yellow Yellow 05/12 [facility] *NA* (05/12/15 2:56 PM) URINE AND UA Glucose Negative Negative 05/12 STOOL mg/dL mg/dL [facility] URINE AND UA Protein Negative Negative 05/12 STOOL mg/dL mg/dL [facility] URINE AND UA Ketones Negative Negative 05/12 STOOL mg/dL mg/dL [facility] URINE AND UA Spec Grav 1.010 <=1.030 05/12 [facility] URINE AND UA Turbidity Clear Clear 05/12 [facility] (05/12/15 2:56 PM) URINE AND UA WBC 0-2 /HPF None Seen 05/12 /HPF [facility] URINE AND UA Sq Epi None Seen Few 05/12 [facility] (05/12/15 2:56 PM) URINE AND UA Bacteria None Seen None Seen 05/12 STOOL [facility] (05/12/15 2:56 PM) URINE AND UA RBC None Seen 0 - 2 05/12 [facility] (05/12/15 2:56 PM) Chest Chest 1view Name: GILL MADERA 05/12 1view DX [facility] : 1935 Read by: Snehal Fung [...] Renal Stone Name: GILL MADERA 11/13 - [facility] Stone CT CT /2013 - Outpatient [...] reconstructions were obtained and viewed on a [employer] workstation. FINDINGS: A 5 mm calcified granuloma [...] POC 148 mg/dL 65 - 110 06/29 [place] 1Interpretive GLUCOSE [facility] Data: [facility] TESTING Upper Reportable Limit: 200 mg/dL. BEDSIDE Gluc POC 180 mg/dL - 110 06/29 [place] 2[facility] Data: [facility] TESTING Upper Reportable Limit: 200 mg/dL. BEDSIDE Gluc POC 248 mg/dL - 110 06/28 [place] 3[facility] Data: [facility] TESTING Upper Reportable Limit: 200 mg/dL. CHEMISTRY AGAP 14.6 meq/L 10.0 - 06/26 Normal 20.0 [facility] CHEMISTRY Calcium Lvl 9.1 mg/dL 8.5 - 10.5 06/26 Normal [facility] CHEMISTRY CO2 27 meq/L 24 - 32 06/26 Normal [facility] CHEMISTRY Chloride Lvl 103 meq/L 95 - 109 06/26 Normal [facility] CHEMISTRY Potassium 4.6 meq/L 3.5 - 5.1 06/26 Normal Lvl [facility] CHEMISTRY Sodium Lvl 140 meq/L 135 - 145 06/26 Normal [facility] CHEMISTRY Creatinine 2.1 mg/dL 0.5 - 1.4 06/26 HI Lvl [facility] CHEMISTRY Glucose Lvl 175 mg/dL 06/26 NA 4Interpretive Data: [facility] Reference Ranges : 0 - 7 days : 41 - 90 mg/dL7 days - 150 yrs : 70 - 99 mg/dL (fasting), based on the clinical recommendatio ns of the [place] [employer]. CHEMISTRY BUN 36 mg/dL 7 - 22 06/26 HI [facility] HEMATOLOGY Basophils # 0.0 K/CMM 0.0 - 0.2 06/26 Normal [facility] HEMATOLOGY Eosinophils 0.1 K/CMM 0.0 - 0.5 06/26 Normal [facility] HEMATOLOGY Eosinophils 1.8 % 0.0 - 4.0 06/26 Normal [facility] HEMATOLOGY Lymphocytes 1.0 K/CMM 1.0 - 5.5 06/26 Normal [facility] HEMATOLOGY Monocytes # 0.3 K/CMM 0.0 - 0.8 06/26 Normal [facility] HEMATOLOGY Basophils 0.5 % 0.0 - 1.0 06/26 Normal [facility] HEMATOLOGY Monocytes 7.7 % 2.0 - 12.0 06/26 Normal [facility] HEMATOLOGY Lymphocytes 23.4 % 20.0 - 06/26 Normal 40.0 [facility] HEMATOLOGY Segs-Bands # 2.8 K/CMM 1.5 - 8.1 06/26 Normal [facility] HEMATOLOGY Segs 66.6 % 45.0 - 06/26 Normal 75.0 /2011 [facility] HEMATOLOGY PT 13.7 s 12.0 - 06/26 Normal 14.7 /2011 [facility] HEMATOLOGY INR 1.05 0.85 - 06/26 Normal 9Interpretive 1. Data: [facility] RECOMMENDED RANGES FOR PROTIME INR: 2.0-3.0 for most medical and surgical thromboemboli c states. 2.5-3.5 for artificial heart valves and recurrent embolism.INR SHOULD BE USED ONLY FOR PATIENTS ON STABLE ANTICOAGULANT THERAPY. HEMATOLOGY MPV 10.0 fL 7.4 - 10.4 06/26 Normal MH /2011 [facility] HEMATOLOGY MCHC 35.5 g/dL 32.0 - 06/26 Normal 36.0 /2011 [facility] HEMATOLOGY RDW 13.4 % 11.5 - 06/26 Normal 14.5 /2011 [facility] HEMATOLOGY Platelet 127 K/CMM 133 - 450 06/26 LOW MH /2011 [facility] HEMATOLOGY Hct 32.2 % 42.0 - 06/26 LOW 7Result 54.0 /2011 Comment: [facility] Reference range changed due to change in patient's gender at 08:43:59. Normal Low changed from not defined to 42.0. Normal High changed from not defined to 54.0. Result flag changed from not applied to L. HEMATOLOGY Hgb 11.4 g/dL 14.0 - 06/26 LOW 6Result 18.0 Comment: [facility] Reference range changed due to change in patient's gender at 08:43:59. Normal Low changed from not defined to 14.0. Normal High changed from not defined to 18.0. Result flag changed from not applied to L. HEMATOLOGY MCV 97.1 fL 80.0 - 06/26 HI 8Result 94.0 Comment: [facility] Reference range changed due to change in patient's gender at 08:43:59. Normal Low changed from not defined to 80.0. Normal High changed from not defined to 94.0. Result flag changed from not applied to H. HEMATOLOGY MCH 34.5 pg 27.0 - 06/26 HI 31.0 [facility] HEMATOLOGY RBC 3.32 M/CMM 4.70 - 06/26 LOW 5Result 6.10 Comment: [facility] Reference range changed due to change in patient's gender at 08:43:59. Normal Low changed from not defined to 4.70. Normal High changed from not defined to 6.10. Result flag changed from not applied to L. HEMATOLOGY WBC 4.2 K/CMM 3.7 - 10.4 06/26 Normal /2011 [facility] Vital Signs Vital Sign Value Date Comments Source Respitory Rate 19 08/06/2017 [facility] Systolic (mm Hg) 131 08/06/2017 [facility] Diastolic (mm Hg) 62 08/06/2017 [place] Respitory Rate 18 08/06/2017 [place] Systolic (mm Hg) 131 08/06/2017 [place] Diastolic (mm Hg) 62 08/06/2017 [place] Respitory Rate 19 08/06/2017 [place] Systolic (mm Hg) 121 08/06/2017 [place] Diastolic (mm Hg) 64 08/06/2017 [place] Weight 90.909 08/06/2017 [place] BMI Calculated 28.76 08/06/2017 [place] Height 177.8 cm 08/06/2017 [place] Temperature Oral (F) 97.6 F 08/06/2017 [place] Heart Rate 68 08/06/2017 [place] Respitory Rate 20 05/30/2017 [facility] Heart Rate 58 05/30/2017 [facility] Systolic (mm Hg) 132 05/30/2017 [facility] Diastolic (mm Hg) 68 05/30/2017 [facility] Temperature Oral (F) 98.1 F 05/30/2017 [facility] Systolic (mm Hg) 126 05/30/2017 [facility] Diastolic (mm Hg) 60 05/30/2017 [facility] Heart Rate 55 05/30/2017 [facility] Respitory Rate 20 05/30/2017 [facility] Heart Rate 59 05/30/2017 [facility] Systolic (mm Hg) 146 05/30/2017 [facility] Diastolic (mm Hg) 63 05/30/2017 [facility] Respitory Rate 20 05/30/2017 [facility] Temperature Oral (F) 97 F 05/30/2017 [facility] Weight 83.182 05/30/2017 [facility] BMI Calculated 28.72 05/30/2017 [facility] Height 170.18 cm 05/30/2017 [facility] Systolic (mm Hg) 110 12/03/2016 [facility] Height 66 12/03/2016 [facility] Diastolic (mm Hg) 50 12/03/2016 [facility] Systolic (mm Hg) 100 11/15/2016 [facility] Height 66 11/15/2016 [facility] Diastolic (mm Hg) 50 11/15/2016 [facility] Systolic (mm Hg) 120 11/03/2016 [facility] Diastolic (mm Hg) 64 11/03/2016 [facility] Temperature Oral (F) 97.6 F 11/03/2016 [facility] Heart Rate 66 11/03/2016 [facility] Temperature Oral (F) 98.2 F 11/03/2016 [facility] Heart Rate 68 11/03/2016 [facility] Respitory Rate 18 11/03/2016 [facility] Systolic (mm Hg) 101 11/03/2016 [facility] Diastolic (mm Hg) 50 11/03/2016 [facility] Systolic (mm Hg) 121 11/03/2016 [facility] Diastolic (mm Hg) 56 11/03/2016 [facility] Respitory Rate 18 11/03/2016 [facility] Heart Rate 65 11/03/2016 [facility] Temperature Oral (F) 98.2 F 11/03/2016 [...] F 12/30/2015 [facility] Respitory Rate 16 12/30/2015 [facility] Heart Rate 62 12/30/2015 [facility] Systolic (mm Hg) 137 12/30/2015 [facility] Diastolic (mm Hg) 65 12/30/2015 [facility] Weight 82.273 12/30/2015 [facility] Temperature Oral (F) 98.2 F 12/30/2015 [facility] Heart Rate 64 12/30/2015 [facility] Systolic (mm Hg) 130 12/30/2015 [facility] Diastolic (mm Hg) 64 12/30/2015 [facility] Respitory Rate 16 12/30/2015 [facility] BMI Calculated 28.82 12/28/2015 [facility] Weight 83.455 12/28/2015 [facility] Height 170.18 cm 12/28/2015 [facility] BMI Calculated 29.25 12/28/2015 [facility] Height 170.18 cm 12/28/2015 [facility] Weight 84.716 12/28/2015 [facility] Systolic (mm Hg) 104 05/22/2015 [facility] Diastolic (mm Hg) 52 05/22/2015 [facility] Systolic (mm Hg) 109 05/22/2015 [facility] Diastolic (mm Hg) 52 05/22/2015 [facility] Temperature Oral (F) 98.2 F 05/22/2015 [facility] Systolic (mm Hg) 140 05/22/2015 [facility] Diastolic (mm Hg) 66 05/22/2015 [facility] Temperature Oral (F) 98.2 F 05/21/2015 [facility] Temperature Oral (F) 98.0 F 05/21/2015 [facility] Respitory Rate 20 05/20/2015 [facility] Heart Rate 63 05/20/2015 [facility] Respitory Rate 18 05/20/2015 [facility] Heart Rate 63 05/20/2015 [facility] Heart Rate 73 05/20/2015 [facility] Respitory Rate 18 05/20/2015 [facility] BMI Calculated 29.35 05/17/2015 [facility] Height 170.18 cm 05/17/2015 [facility] Weight 85 05/17/2015 [facility] Systolic (mm Hg) 144 05/17/2015 [facility] Diastolic (mm Hg) 62 05/17/2015 [facility] Respitory Rate 18 05/17/2015 [facility] Temperature Oral (F) 97.7 F 05/17/2015 [...] 20 06/29/2011 [facility] Heart Rate 76 06/29/2011 [facility] Temperature Oral (F) 96.0 F 06/29/2011 [...] 06/29/2011 [facility] Respitory Rate 20 06/29/2011 [facility] Systolic (mm Hg) 137 06/29/2011 [facility] Weight 94.545 06/26/2011 [facility] Height 170.18 cm 06/26/2011 [facility] Encounters Location Location Encounter Encounter Reason Attending ADM DC Status Source Details Type Number For Provider Date Date Visit Not Sent YOANDY [id number] CHRONIC PING WING 06/28 06/29 Active 0 SYSTOLIC /2011 [facility] FAIL[facility] 428.22 ANGINA 413.9. [facility] Outpt Diag [id number] [place] 11/13 11/14 [facility] Outpatient Services 0 [facility] Cardi[facility] STRESS TEST [id number] 12/17 12/17 Cardi[facility] ular [id number] /2013 [id number] bb9 Cardiovasc STRESS TEST [id number] 12/17 12/17 [facility] 17-481b-88e /2013 [id number] [facility] 18d Cardiovasc STRESS TEST [id number] 12/17 12/17 [facility] [id number] /2013 [id number] [facility] c2a Cardiovasc STRESS TEST [id number] 12/17 12/17 [facility] [id number] /2013 [id number] [facility] c19 Cardiovasc STRESS TEST [id number] 12/17 12/17 [facility] [id number] /2013 [id number] [facility] 790 Cardiovasc STRESS TEST [id number] 12/17 12/17 Cardi[facility] ular [id number] /2013 [id number] [facility] eaf Cardiovasc STRESS TEST [id number] 12/17 12/17 [facility] [id number] /2013 [id number] [facility] a47 Cardiovasc STRESS TEST [id number] 12/17 12/17 [facility] [id number] /2013 [id number] [facility] 8e8 Cardiovasc STRESS TEST [id number] 12/17 12/17 [facility] [id number] /2013 [id number] [facility] 188 Cardiovasc STRESS TEST [id number] 12/17 12/17 Cardi[facility] [id number] /2013 [id number] [facility] 8f0 Cardiovasc Established [id number] 12/17 12/17 [facility] Patient [id number] /2013 [id number] [facility] 6c1 Cardiovasc Established [id number] 12/17 12/17 [facility] Patient [id number] /2013 [facility] [id number] [facility] 523 Cardiovasc Established [id number] 12/17 12/17 Cardi[facility] Patient 4a-3jy8-i3d /2013 [facility] [id number] [facility] c3c Cardiovasc Established [id number] 12/17 12/17 [facility] Patient [id number] /2013 [facility] [id number] [facility] 31e Cardiovasc Established [id number] 12/17 12/17 Cardi[facility] Patient [id number]-[id number] /2013 [id number] [facility] dc5 Cardiovasc Established [id number] 12/17 12/17 [facility] Patient [id number] /2013 [facility][id number] [facility] 99c Cardiovasc Established [id number] 12/17 12/17 [facility] Patient f0-4996-[id number] /2013 [facility]-[id number] [facility] e92 Cardiovasc Established [id number] 12/17 12/17 [facility] Patient [id number] /2013 [facility] [id number] [facility] acf Cardiovasc Established [id number] 12/17 12/17 [facility] Patient [id number] /2013 [id number] [facility] 4e4 Cardiovasc Established [id number] 12/17 12/17 Cardiova ular Patient 0a-44fd-b7f [facility] [id number] [facility] 2ca Cardiovasc Established [id number] 03/19 03/19 [facility] Patient [id number] [id number] [facility] e95 Cardiovasc Established [id number] 03/19 03/19 [facility] Patient c9-49fa-9a [facility] [id number] [facility] 99e Cardiovasc Established [id number] 03/19 03/19 [facility] Patient e1-58i7-h6v [id number] [facility] 096 Cardiovasc Established [id number] 03/19 03/19 [facility] Patient ea-[id number]-99b /2013 [facility][id number] [facility] 365 Cardiovasc Established [id number] 03/19 03/19 [facility] Patient 84-6g42-369 /2013 [id number] [facility] 0e7 Cardiovasc Established [id number] 03/19 03/19 [facility] Patient [id number] /2013 [id number] [facility] 1d9 Cardiovasc Established [id number] 03/19 03/19 Cardi[facility] Patient [id number] /2013 [facility][id number] [facility] 33a Cardiovasc Established [id number] 03/19 03/19 Cardi[facility] Patient 3e-7o28-99y /2013 [id number] [facility] 94f Cardiovasc Established [id number] 03/19 03/19 Cardi[facility] Patient 80-2as2-q9s /2013 [id number] [facility] c27 Cardiovasc Established [id number] 03/19 03/19 Cardi[facility] Patient 2a-[id number] /2013 [facility][id number] [facility] a8b Cardiovasc Established [id number] 06/25 06/25 Cardiova ular Patient 27-5r99-93h /2014 [id number] [facility] [place] Cardiovasc Established [id number] 06/25 06/25 Cardiova ular Patient 2b-[id number] /2014 [facility] [id number] [facility] a45 Cardiovasc Established [id number] 06/25 06/25 Cardiova ular Patient 3f-7p66-10b /2014 [facility] [id number] [facility] e6e Cardiovasc Established [id number] 06/25 06/25 Cardi[facility] ular Patient [id number] /2014 [id number] [facility] 5fc Cardiovasc Established [id number] 06/25 06/25 Cardi[facility] Patient 38-8a9p-m2q /2014 [facility]-[id number] [facility] 92b Cardiovasc Established [id number] 06/25 06/25 Cardi[facility] ular Patient [id number] /2014 [facility][id number] [facility] bf1 Cardiovasc Established [id number] 06/25 06/25 [facility] Patient [id number]-254 /2014 [facility] [id number] [facility] 1fb Cardiovasc [place] [id number] 08/06 08/06 Cardiova ular refill [id number] /2014 [id number] [facility] 2ae Cardiovasc [place] [id number] 08/06 08/06 Cardiova ular refill [id number] /2014 [id number] [facility] a59 Cardiovasc [place] [id number] 08/06 08/06 Cardiova ular refill [id number]-874 /2014 [id number] [facility] 751 Cardiovasc [place] [id number] 08/06 08/06 Cardiova ular refill [id number] /2014 [facility] [id number] [facility] 3d8 Cardiovasc [place] [id number] 08/06 08/06 Cardiova ular refill [id number] /2014 [facility] [id number] [facility] 472 Cardiovasc [place] [id number] 08/06 08/06 Cardiova ular refill [id number] /2014 [facility] f-[id number] [facility] 2ee Cardiovasc Unknown [id number] 08/18 08/18 Cardiova ular [id number] /2014 [facility]-[id number] [facility] a62 Cardiovasc Unknown [id number] 08/18 08/18 Cardiova [facility] [id number] /2014 [id number] [facility] d59 Cardiovasc Unknown [id number] 08/18 08/18 Cardi[facility] ular [id number]-b56 /2014 [facility] [id number] [facility] 242 Cardiovasc Unknown [id number] 08/18 08/18 [facility] [id number] [facility] b-[id number] [facility] a07 Cardiovasc Unknown [id number] 08/18 08/18 Cardiova [facility] [id number] /2014 [facility] [id number] [facility] [place] Cardiovasc Unknown [id number] 08/18 08/18 Cardi[facility] ular [id number] /2014 [facility] [id number] [facility] 85e Cardiovasc chest pain. [id number] 10/07 10/07 Cardiova ular 10/06 [id number] /2014 [facility] [id number] [facility] 40e Cardiovasc chest pain. [id number] 10/07 10/07 Cardiova ular 10/06 [id number] /2014 [facility] [id number] [facility] 12d Cardiovasc chest pain. [id number] 10/07 10/07 Cardiova ular 10/06 [id number] /2014 [facility] [id number] [facility] cc8 Cardiovasc chest pain. [id number] 10/07 10/07 Cardiova ular 10/06 [id number] /2014 [facility] [id number] [facility] e95 Cardiovasc chest pain. [id number] 10/07 10/07 Cardiova ular 10/06 [id number] /2014 [facility] [id number] [facility] 512 Cardiovasc chest pain. [id number] 10/07 10/07 Cardiova ular 10/06 [id number] /2014 [facility] [id number] [facility] d6e Cardiovasc Established [id number] 01/18 01/18 Cardiova ular Patient [id number] /2014 [id number] 57a Cardiovasc Established [id number] 01/18 01/18 Cardiova ular Patient [id number] /2014 [facility] [id number] [facility] e4e Cardiovasc Established [id number] 01/18 01/18 Cardiova ular Patient [id number] /2014 [facility] [id number] [facility] 09c Cardiovasc Established [id number] 01/18 01/18 Cardiova ular Patient [id number] /2014 [facility]ular [facility] [id number] [facility] ea8 Cardiovasc Established [id number] 01/18 01/18 Cardiova ular Patient [id number] /2014 [facility]ular [facility] [id number] [facility] 338 Cardiovasc Established [id number] 01/18 01/18 Cardiova ular Patient [id number] /2014 [facility] [id number] [facility] b26 Cardiovasc possible [id number] 05/11 05/11 Cardiova ular heart [id number] /2014 [facility]ular Associatio attack [id number] [facility] 4a0 Cardiovasc possible [id number] 05/11 05/11 Cardiova ular heart [id number] /2014 scular Associatio attack [id number] [facility] 24b Cardiovasc possible [id number] 05/11 05/11 Cardiova ular heart [id number] /2014 scular Associatio attack [id number] [facility] 39d Cardiovasc possible [id number] 05/11 05/11 Cardiova ular heart [id number] /2014 scular Associatio attack [id number] [facility] ad0 Cardiovasc possible [id number] 05/11 05/11 Cardiova ular heart [id number] /2014 scular Associatio attack [id number] [facility] af7 Cardiovasc possible [id number] 05/11 05/11 Cardiova ular heart [id number] /2014 scular Associatio attack [id number] [facility] 6cc Cardiovasc Established [id number] 05/12 05/12 Cardiova ular Patient [id number] /2014 scular [facility]atio [id number] [facility] 97a Cardiovasc Established [id number] 05/12 05/12 Cardiova ular Patient [id number] /2014 scular [facility]atio [id number] [facility] 5a7 Cardiovasc Established [id number] 05/12 05/12 Cardiova ular Patient [id number] /2014 scular [facility]atio [id number] [facility] 0da Cardiovasc Established [id number] 05/12 05/12 Cardiova ular Patient [id number] /2014 [id number] [facility] 3a7 Cardiovasc Established [id number] 05/12 05/12 Cardiova ular Patient [id number] /2014 scular [facility] [id number] [facility] 1ea Cardiovasc Established [id number] 05/12 05/12 Cardiova ular Patient [id number] /2014 scular [facility]atio [id number] [facility] a0a [facility] [id number] Mitchell Bautista 05/12 05/17 Harley 1 /2014 [facility] Inpatient [id number] Armjohanna 05/17 05/22 [facility] 1 Atashband /2014 [facility] Cardiovasc Pt in [id number] 05/18 05/18 [facility]ova ular [facility] [id number] /2014 scular Associatio 05/18 [id number] [facility] e58 Cardiovasc Pt in [id number] 05/18 05/18 Cardiova ular [facility] [id number] /2014 scular Associatio 05/18 [id number] [facility] d79 Cardiovasc Pt in [id number] 05/18 05/18 [facility]ova ular [facility] [id number] /2014 scular Associatio 05/18 [id number] [facility] 87e Cardiovasc Pt in [id number] 05/18 05/18 Cardiova ular [facility] [id number] /2014 scular Associatio 05/18 [id number] [facility] e6c Cardiovasc [place] [id number] 10/18 10/18 Cardiova ular [facility] [id number] /2015 scular Associatio [id number] [facility] 9b9 Cardiovasc [place] [id number] 10/18 10/18 [facility] [id number] /2015 scular Associatio [id number] [facility] 6b3 Cardiovasc [place] [id number] 10/18 10/18 [facility]ova ular [facility] [id number] /2015 scular [facility]atio [id number] [facility] b98 Cardiovasc chest pain [id number] 12/27 12/27 Cardiova ular [id number] /2015 scular Associatio [id number] [facility] 5ea Cardiovasc chest pain [id number] 12/27 12/27 Cardiova ular [id number] /2015 scular Associatio [id number] [facility] 536 [facility] [id number] [place] 12/27 12/29 Harley 2 Ajelabi /2015 [facility] Cardiovasc Established [id number] 04/10 04/10 Cardiova ular Patient [id number] /2015 scular Associatio [id number] [facility] bbf [facility] Observation [id number] Janeth 11/02 11/03 Harley 7 [place] /2016 [facility] [id number] Shahzad 05/30 05/30 Harley 3 [place] /2016 [facility] Emergency [id number] Vanda 08/06 08/06 [facility] Harley 4 Romero /2017 [facility] Procedures Procedure Code Date Perfomer Comments Source CABG x 2 - [id number] [facility] Coronary artery [facility] bypass grafts x 2 Excision of [id number] [facility] CABG x 2 - [id number] [facility] Coronary artery bypass grafts x 2 Excision of [id number] [facility] gallbladder Angioplasty [id number] [place] [facility] [id number] [facility] CABG x 2 - [id number] [facility] Coronary artery [place] bypass grafts x 2 Excision of [id number] [facility]
--- OUTSIDE RECORDS SUMMARY | 2018-07-23 13:46 | XMS REPORT ---
:1935 Author Organization eClinicalWorks Care Team Providers Name Role Phone PHYLLIS [facility] Provider Role Unavailable Allergies, Adverse Reactions, Alerts Substance Reaction Event Type N.K.D.A. 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 Problem Presence of coronary angioplasty Z95.5 Active implant and graft Problem Hyperlipidemia, unspecified E78.5 Active Problem Hypothyroidism, unspecified E03.9 Active Problem 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 Problem 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 Assessment 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 Assessment Hyperlipidemia, unspecified E78.5 Active Assessment 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 Medications Medication Code System Code Instructions Start Date End Date Status Dosage spironolactone NDC 23408 25 mg orally bid Active 1 tab(s) Glumetza NDC 41111 500 mg orally bid Active 1 tab(s) clopidogrel NDC 45619 75 mg orally once Active 1 tab(s) a day Synthroid NDC 2205 200 mcg (0.2 mg) Active 1 tab(s) orally once a day carvedilol NDC 75364 3.125 mg orally 2 Active 2 tab(s) times a day glimepiride NDC 16539 1 mg orally bid Active 1 tab(s) atorvastatin NDC 76466 10 mg orally once Active 1 tab(s) a day (at bedtime) tamsulosin NDC 19265 0.4 mg orally Active 1 cap(s) once a day furosemide NDC 39229 40 mg orally once Active 1 tab(s) a day ASA NDC 0 81mg once a day Active 1 tab(s) Prilosec NDC 363 20 mg orally once Active 1 cap(s) a day [place] NDC 86896 1000 mg orally 2 Active 1 tab(s) times a day nitroglycerin NDC 91623 0.4 mg Active 1 tab(s) sublingually every 5 minutes losartan NDC 79565 50 mg orally once Active 1 tab(s) a day Vital Signs Date/Time: Jun 19, 2016 Blood Pressure Systolic 110 mm Hg BMI 30.66 Index Height 66 in Blood Pressure Diastolic 50 mm Hg Results No Known Results Summary Purpose eClinicalWorks Submission
--- OUTSIDE RECORDS SUMMARY | 2018-07-23 13:46 | XMS REPORT | CCD ---
:1935 Author Organization [facility] Care Team Providers Name Role Phone [...] PO, Drug 06/28/2011 06/29/2011 Discontinued Form: TAB, [id number], Start date: 06/28/11 6:00:00, Duration: 4 doses [...] based on the clinical recommendations of the [place] [employer].HEMATOLOGY Most recent to oldest [Reference [...]
--- OUTSIDE RECORDS SUMMARY | 2018-07-23 13:46 | XMS REPORT ---
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
--- OUTSIDE RECORDS SUMMARY | 2018-07-23 13:47 | XMS REPORT ---
:1935 Author Organization eClinicalWorks Care Team Providers Name Role Phone PHYLLIS [facility] Provider Role Unavailable Allergies, Adverse Reactions, Alerts Substance Reaction Event Type N.K.D.A. 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 Assessment 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 Problem Presence of automatic (implantable) Z95.810 Active cardiac defibrillator Medications Medication Code Code Instructions Start End Status Dosage System Date Date nitroglycerin [facility] 50411369683 0.4 mg Active 1 tab(s) sublingually every 5 minutes baclofen [facility] 59111955444 10 mg orally Active 1 tab(s) bid tamsulosin [facility] 31835423496 0.4 mg orally Active 1 cap(s) once a day ASA [facility] 39884957628 81mg once a Active 1 tab(s) day losartan [facility] 53171233196 50 mg orally Active 1 tab(s) once a day spironolactone [facility] 87870571262 25 mg orally Active 1 tab(s) bid Prilosec [facility] 67958907100 20 mg orally Active 1 cap(s) once a day glimepiride [facility] 31680542902 1 mg orally bid Active 1 tab(s) clopidogrel [facility] 38555708064 75 mg orally Active 1 tab(s) once a day furosemide ND 61368601277 40 mg orally Active 1 tab(s) once a day carvedilol [facility] 75927464830 6.25 orally 2 Active 1 tab(s) times a day Glumetza [facility] 20198297348 500 mg orally Active 1 tab(s) bid isosorbide [facility] 56576951139 30 mg orally Active 1 tab(s) dinitrate every 8 hrs Synthroid [facility] 54104998899 200 mcg (0.2 Active 1 tab(s) mg) orally once a day hydralazine [facility] 22250939003 25 mg orally 4 Active 1 tab(s) times a day [place]a [facility] 63452794908 1000 mg orally Active 1 tab(s) 2 times a day omeprazole [facility] 80101769976 20 mg orally Active 1 cap(s) once a day Vital Signs Date/Time: September 03, 2016 Blood Pressure Systolic 136 mm Hg BMI 29.53 Index Height 66 in Blood Pressure Diastolic 60 mm Hg Results No Known Results Summary Purpose eClinicalWorks Submission
--- OUTSIDE RECORDS SUMMARY | 2018-07-23 13:47 | XMS REPORT ---
:1935 Author Organization [employer]ClinicalWorks Care Team Providers Name Role Phone [facility] Provider Role Unavailable Allergies, Adverse Reactions, Alerts Substance Reaction Event Type N.K.D.A. 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 Assessment 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 Problem Presence of automatic (implantable) Z95.810 Active cardiac defibrillator Medications Medication Code Code Instructions Start End Status Dosage System Date Date losartan [facility] 23139381673 50 mg orally Active 1 tab(s) once a day clopidogrel [facility] 96825024575 75 mg orally Active 1 tab(s) once a day nitroglycerin [facility] 14078977084 0.4 mg Active 1 tab(s) sublingually every 5 minutes baclofen [facility] 23682885676 10 mg orally Active 1 tab(s) bid glimepiride [facility] 33096902752 1 mg orally Active 1 tab(s) once aday spironolactone [facility] 78276273518 25 mg orally Active 1 tab(s) bid furosemide [facility] 51733033075 40 mg orally Active 1 tab(s) once a day Glumetza [facility] 29180909961 500 mg orally Active 1 tab(s) bid carvedilol [facility] 17625524452 6.25 orally 2 Active 1 tab(s) times a day [place] [facility] 89149653625 1000 mg orally Active 1 tab(s) 2 times a day omeprazole [facility] 42004532992 20 mg orally Active 1 cap(s) once a day Prilosec [facility] 13840373048 20 mg orally Active 1 cap(s) once a day Synthroid [facility] 27825633953 200 mcg (0.2 Active 1 tab(s) mg) orally once a day hydralazine [facility] 59796615372 25 mg orally 4 Active 1 tab(s) times a day Lasix [facility] 86618094563 40 mg orally Ricarda Active 1 tab(s) once a day 2016 ASA [facility] 28233674026 81mg once a Active 1 tab(s) day tamsulosin [facility] 72457656690 0.4 mg orally Active 1 cap(s) once a day isosorbide [facility] 18291611181 30 mg orally Active 1 tab(s) dinitrate every 8 hrs Vital Signs Date/Time: September 25, 2016 Blood Pressure Systolic 122 mm Hg BMI 30.02 Index Height 66 in Blood Pressure Diastolic 50 mm Hg Results No Known Results Summary Purpose eClinicalWorks Submission
--- OUTSIDE RECORDS SUMMARY | 2018-07-23 13:47 | XMS REPORT ---
[...] Medications Results No Known Results Summary Purpose [employer] Submission
--- OUTSIDE RECORDS SUMMARY | 2018-07-23 13:47 | XMS REPORT ---
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
--- OUTSIDE RECORDS SUMMARY | 2018-07-23 13:47 | XMS REPORT ---
:1935 Author Organization [employer]ClinicalWorks Care Team Providers Name Role Phone PHYLLIS [facility] Provider Role Unavailable Allergies, Adverse Reactions, Alerts Substance Reaction Event Type N.K.D.A. 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 Assessment 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 Assessment Paroxysmal atrial fibrillation I48.0 Active Assessment Presence of automatic (implantable) Z95.810 Active cardiac defibrillator Problem Presence of automatic (implantable) Z95.810 Active cardiac defibrillator Medications Medication Code Code Instructions Start End Status Dosage System Date Date Toprol XL [facility] 26472783368 25 mg orally Active 1 tab(s) bid Lasix [facility] 81081830688 40 mg orally September Active 1 tab(s) once a day 2016 spironolactone [facility] 95645992851 25 mg orally Active 1 tab(s) once a day apixaban [facility] 21081373390 2.5 mg orally 2 Active 1 tab(s) times a day tamsulosin [facility] 04995716964 0.4 mg orally Active 1 cap(s) once a day nitroglycerin [facility] 96781345696 0.4 mg Active 1 tab(s) sublingually every 5 minutes ASA [facility] 99479181832 81mg once a Active 1 tab(s) day clopidogrel [facility] 15335687496 75 mg orally Active 1 tab(s) once a day Prilosec [facility] 27241550087 20 mg orally Active 1 cap(s) once a day Synthroid [facility] 06050851637 200 mcg (0.2 Active 1 tab(s) mg) orally once a day glimepiride [facility] 16125669774 1 mg orally Active 1 tab(s) once aday losartan [facility] 94780455132 50 mg orally Active 1 tab(s) once a day Lipitor [facility] 94737174857 10 mg orally Active 1 tab(s) once a day [place]a [facility] 24012918071 1000 mg orally Active 1 tab(s) 2 times a day Atorvastatin ND 99120985999 20 mg orally November 15, Active 1 tab(s) Calcium once a day 2016 Vital Signs Date/Time: November 15, 2016 Blood Pressure Systolic 100 mm Hg BMI 30.02 Index Height 66 in Blood Pressure Diastolic 50 mm Hg Results No Known Results Summary Purpose eClinicalWorks Submission
--- OUTSIDE RECORDS SUMMARY | 2018-07-23 13:47 | XMS REPORT ---
[...] Medications Results No Known Results Summary Purpose [employer] Submission
--- OUTSIDE RECORDS SUMMARY | 2018-07-23 13:47 | XMS REPORT ---
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
--- OUTSIDE RECORDS SUMMARY | 2018-07-23 13:47 | XMS REPORT ---
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
--- OUTSIDE RECORDS SUMMARY | 2018-07-23 13:47 | XMS REPORT ---
:1935 Author Organization eClinicalWorks Care Team Providers Name Role Phone PHYLLIS [facility] Provider Role Unavailable Allergies, Adverse Reactions, Alerts Substance Reaction Event Type N.K.D.A. 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 Assessment Paroxysmal atrial fibrillation I48.0 Active Assessment Presence of automatic (implantable) Z95.810 Active cardiac defibrillator Assessment Non-ST elevation (NSTEMI) I21.4 Active myocardial infarction Assessment Presence of coronary angioplasty Z95.5 Active implant and graft Problem Presence of automatic (implantable) Z95.810 Active cardiac defibrillator Medications Medication Code Code Instructions Start End Status Dosage System Date Date clopidogrel [facility] 88745702974 75 mg orally Active 1 tab(s) once a day furosemide [facility] 06740794681 40 mg orally Active 1 tab(s) bid Synthroid [facility] 02049632464 200 mcg (0.2 Active 1 tab(s) mg) orally once a day nitroglycerin [facility] 82875818733 0.4 mg Active 1 tab(s) sublingually every 5 minutes spironolactone [facility] 13946886102 25 mg orally Active 1 tab(s) once a day ivabradine [facility] 99825227774 5 mg orally 2 Active 1 tab(s) times a day (with meals) omeprazole [facility] 14037651252 20 mg orally Active 1 cap(s) once a day Toprol XL [facility] 05419302043 12.5 mg orally Active 1/2ab(s) once a day Ranexa [facility] 31717049061 1000 mg orally Active 1 tab(s) 2 times a day glimepiride [facility] 40616234096 1 mg orally bid Active 1 tab(s) isosorbide [facility] 65044815231 10 mg orally 2 Active 1 tab(s) dinitrate times a day tamsulosin [facility] 46566198518 0.4 mg orally Active 1 cap(s) once a day ASA ND 31122503634 81mg once a Active 1 tab(s) day Atorvastatin ND 55907325137 40 mg orally November 15, Active 1 tab(s) Calcium once a day 2016 Vital Signs Date/Time: December 03, 2016 Blood Pressure Systolic 110 mm Hg BMI 29.86 Index Height 66 in Blood Pressure Diastolic 50 mm Hg Results No Known Results Summary Purpose eClinicalWorks Submission
--- OUTSIDE RECORDS SUMMARY | 2018-07-23 13:47 | XMS REPORT ---
[...] Medications Results No Known Results Summary Purpose [employer] Submission
--- OUTSIDE RECORDS SUMMARY | 2018-07-23 13:48 | XMS REPORT ---
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 Problem Hypercholesterolemia NOS 272.4 Active Problem Hypothyroidism (acquired) 244.9 Active Assessment Hypertension Heart Disease - w/o 402.10 Active CHF* Assessment S/P Automatic Defibrillator V45.02 Active Assessment Chronic systolic heart failure 428.22 Active Assessment 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 Medications Medication Code System Code Instructions Start End Date Status Dosage Date levothyroxine MULT[facility] 66812 200 mcg orally Active 1 cap(s) once a day nitroglycerin [facility] 09404 0.4 mg November 26, Active 1 tab(s) sublingually every 2013 5 minutes gemfibrozil [facility] 93403 600 mg orally 2 Active 1 tab(s) times a day omeprazole [facility] 15965 20 mg orally once Active 1 tab(s) a day losartan [facility] 50186 50 mg orally once Active 1 tab(s) a day Crestor [facility] 29491 10 mg orally once Jan 27, Active 1 tab(s) a day (at bedtime) 2012 spironolactone [facility] 80345 25 mg orally 3 Active 1 tab(s) times a day tamsulosin [facility] 04987 0.4 mg orally bid Active 1 cap(s) ASA Unknown 0 81mg once a day Active 1 tab(s) Lantus [facility] 88398 100 units/mL Active 34 units at subcutaneously bedtime furosemide [facility] 26188 20 mg orally once Active 3 tsa a day Ranexa [facility] 83246 1000 mg orally 2 Active 1 tab(s) [...]
--- OUTSIDE RECORDS SUMMARY | 2018-07-23 13:48 | XMS REPORT ---
:1935 Author Organization eClinicalWorks Care Team Providers Name Role Phone CYN [place] Provider Role Unavailable Encounters Encounter Location Date Established Patient [facility], [facility] Jun 25, 2014 [place] ref[place] [facility], [facility] Aug 06, 2014 Unknown [facility], [facility] August 18, 2014 chest pain. 10/06 [facility], [facility] October 07, 2014 Established Patient [facility], [facility] December 17, 2013 Pt in [facility] 05/18 [facility], [facility] May 18, 2015 STRESS TEST [facility], [facility] December 17, 2013 [place] [facility] [facility], [facility] October 19, 2015 Established Patient [facility], [facility] Mar 19, 2014 Established Patient [facility], [facility] May 12, 2015 Established Patient [facility], [facility] Jan 18, 2015 possible heart attack [facility], [facility] May 11, 2015 Problems Problem Type Condition ICD-9 Code Onset Dates Condition Status Problem Presence 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 Problem 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
--- OUTSIDE RECORDS SUMMARY | 2018-07-23 13:48 | XMS REPORT ---
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 Problem Hypercholesterolemia NOS 272.4 Active Problem Hypothyroidism (acquired) 244.9 Active Assessment S/P Automatic Defibrillator V45.02 Active Assessment Chronic systolic heart failure 428.22 Active Assessment 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 Medications Medication Code System Code Instructions Start End Date Status Dosage Date Humalog MULTUM 6127 100 units/mL Active 12 units subcutaneously before meals spironolactone MULTUM 03986 25 mg orally 3 Active 1 tab(s) times a day Lantus MULTUM 79592 100 units/mL Active 34 units at subcutaneously bedtime omeprazole MULTUM 74873 20 mg orally once Active 1 tab(s) a day levothyroxine MULTUM 21670 112 mcg orally Active 2 caps once a day Crestor MULTUM 08916 10 mg orally once Jan 27, Active 1 tab(s) a day (at bedtime) 2012 Lyrica MULTUM 27611 50 mg orally 2 Active 1 cap(s) times a day ASA Unknown 0 81mg once a day Active 1 tab(s) furosemide MULTUM 17282 20 mg orally tid Active 3 tsa tamsulosin MULTUM 60692 0.4 mg orally bid Active 1 cap(s) nitroglycerin MULTUM 27669 0.4 mg November 26 1 tab(s) sublingually every 2013 5 minutes losartan MULTUM 23175 50 mg orally once Active 1 tab(s) a day [place] MULTUM 03802 1000 mg orally 2 Active 1 tab(s) times a day gemfibrozil MULTUM 58343 600 mg orally 2 Active 1 tab(s) [...]
--- OUTSIDE RECORDS SUMMARY | 2018-07-23 13:48 | XMS REPORT ---
[...] Start Date End Date Status Dosage Corlanor [facility] 82302646400 5 mg orally 2 December 07, Active 1 tab(s) times a day (with 2017 meals) Results No Known Results Summary Purpose eClinicalWorks Submission
--- OUTSIDE RECORDS SUMMARY | 2018-07-23 13:48 | XMS REPORT ---
[...] [facility] December 17, 2013 STRESS TEST Cardiovascular Association, [facility] December 17, 2013 Established Patient [facility], [facility] Mar 19, 2014 Established Patient [facility], [facility] May 12, 2015 Established Patient [facility], [facility] Jan 18, 2015 possible heart attack [facility], [facility] May 11, 2015 chest pain [facility], [facility] December 28, 2015 Pt in [facility] 05/18 [facility], [facility] May 18, 2015 [place] [facility] [facility], [facility] October 19, 2015 Problems Problem Type Condition ICD-9 Code Onset Dates Condition Status Problem Presence 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 Problem 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
--- OUTSIDE RECORDS SUMMARY | 2018-07-23 13:48 | XMS REPORT ---
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 Problem 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 Problem Presence 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 Problem Hypothyroidism, unspecified E03.9 Active Assessment 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 Problem 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 Problem Hyperlipidemia, unspecified E78.5 Active Medications Medication Code System Code Instructions Start End Date Status Dosage Date nitroglycerin MULTUM 81200 0.4 mg November 26, Active 1 tab(s) sublingually every 2013 5 minutes omeprazole MULTUM 80748 20 mg orally once Active 1 tab(s) a day tamsulosin MULTUM 54954 0.4 mg orally bid Active 1 cap(s) spironolactone MULTUM 64212 25 mg orally 3 Active 1 tab(s) times a day levothyroxine MULTUM 53522 112 mcg orally Active 2 caps once a day carvedilol MULTUM 00706 12.5 mg orally 2 Active 1 tab(s) times a day furosemide MULTUM 07451 40 mg orally once Jun 26, Active 1 tab(s) a day 2014 Crestor MULTUM 88657 10 mg orally once Jan 27, Active 1 tab(s) a day (at bedtime) 2012 [place] MULTUM 32328 1000 mg orally 2 Active 1 tab(s) times a day gemfibrozil MULTUM 15428 600 mg orally 2 Active 1 tab(s) times a day losartan MULTUM 26191 50 mg orally once Active 1 tab(s) a day Lantus MULTUM 26812 100 units/mL Active 34 units at subcutaneously [...]
--- OUTSIDE RECORDS SUMMARY | 2018-07-23 13:48 | XMS REPORT ---
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
--- OUTSIDE RECORDS SUMMARY | 2018-07-23 13:48 | XMS REPORT ---
:1935 Author Organization eClinicalWorks Care Team Providers Name Role Phone PHYLLIS [place] Provider Role Unavailable Encounters Encounter Location Date Established Patient [facility] Association, [facility] Jun 25, 2014 [place] ref[place] [facility], [facility] Aug 06, 2014 Unknown [facility], [facility] August 18, 2014 chest pain. 10/06 [facility], [facility] October 07, 2014 Established Patient [facility], [facility] December 17, 2013 STRESS TEST [facility], [facility] December 17, 2013 Established Patient [facility], [facility] Mar 19, 2014 Established Patient [facility], [facility] May 12, 2015 Established Patient [facility], [facility] Jan 18, 2015 possible heart attack [facility], [facility] May 11, 2015 Problems Problem Type Condition ICD-9 Code Onset Dates Condition Status Problem 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
--- OUTSIDE RECORDS SUMMARY | 2018-07-23 13:48 | XMS REPORT ---
:1935 Author Organization eClinicalWorks Care Team Providers Name Role Phone PHYLLIS [place] Provider Role Unavailable Encounters Encounter Location Date Established Patient [facility] Association, [facility] December 17, 2013 STRESS TEST [facility], [facility] December 17, 2013 Established Patient [facility] Association, [facility] Mar 19, 2014 Problems Problem Type Condition ICD-9 Code Onset Dates Condition Status Assessment 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 Active [place] vessel Problem Diabetes mellitus type II 250.00 Active Problem Hypertension Heart Disease - w/o 402.10 Active CHF* Problem 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 Problem Chronic systolic heart failure 428.22 Active Problem S/P Automatic Defibrillator V45.02 Active Problem 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 Active [place] vessel Problem 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 Problem Hypercholesterolemia NOS 272.4 Active Problem Hypothyroidism (acquired) 244.9 Active Medications Medication Code System Code Instructions Start End Date Status Dosage Date Humalog MULTUM 6127 100 units/mL Active 12 units subcutaneously before meals levothyroxine MULTUM 31733 200 mcg orally Active 1 cap(s) once a day [place] MULTUM 12979 1000 mg orally 2 Active 1 tab(s) times a day nitroglycerin MULTUM 04839 0.4 mg/hr Active 1 PATCH transdermally prn nitroglycerin MULTUM 35065 0.4 mg November 26, Active 1 tab(s) sublingually every 2013 5 minutes losartan MULTUM 40833 50 mg orally once Active 1 tab(s) a day omeprazole MULTUM 92924 20 mg orally once Active 1 tab(s) a day Crestor MULTUM 03667 10 mg orally once Jan 27, Active 1 tab(s) a day (at bedtime) 2012 ASA Unknown 0 81mg once a day Active 1 tab(s) tamsulosin MULTUM 19408 0.4 mg orally once Active 1 cap(s) a day Coreg MULTUM 24685 12.5 mg orally 2 Active 1/2 tab times a day spironolactone MULTUM 13459 25 mg orally 3 Active 1 tab(s) times a day Lantus MULTUM 33425 100 units/mL Active 34 units at subcutaneously bedtime gemfibrozil MULTUM 01938 600 mg orally 2 Active 1 tab(s) times a day furosemide MULTUM 22199 20 mg orally once Active 2 tabs a day Social History Social History Element Qualifiers Date Reported Caffeine: yes. 2 cups of coffee a day Mar 19, 2014 Tobacco Use: . Status: Former Smoker quit 22 yrs ago Mar 19, 2014 Alcohol: no. Mar 19, 2014 Summary Purpose eClinicalWorks Submission
--- OUTSIDE RECORDS SUMMARY | 2018-07-23 13:48 | XMS REPORT ---
[...] Association, [facility] December 17, 2013 Pt in [facility] 05/18 [facility]ovascular Association, [facility] May 18, 2015 STRESS TEST Cardi[facility] Association, [facility] December 17, 2013 Established Patient [facility] Association, [facility] Mar 19, 2014 Established Patient [facility] Association, [facility] May 12, 2015 Established Patient [facility] Association, [facility] Jan 18, 2015 possible heart attack [facility], [facility] May 11, 2015 Problems Problem Type [...]
--- OUTSIDE RECORDS SUMMARY | 2018-07-23 13:48 | XMS REPORT ---
:1935 Author Organization eClinicalWorks Care Team Providers Name Role Phone [place] PHYLLIS Provider Role Unavailable Allergies, Adverse Reactions, Alerts Substance Reaction Event Type N.K.D.A. Info Not Available Non Drug Allergy Encounters Encounter Location Date Established Patient [facility] Association, [facility] Jun 25, 2014 Established Patient [facility] Association, [facility] December 17, 2013 STRESS TEST [facility] Association, [facility] December 17, 2013 Established Patient [facility], [facility] Mar 19, 2014 Problems Problem Type Condition ICD-9 Code Onset Dates Condition Status Assessment 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 Active [place] vessel Problem Diabetes mellitus type II 250.00 Active Problem Hypertension Heart Disease - w/o 402.10 Active CHF* Problem 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 Problem Chronic systolic heart failure 428.22 Active Problem S/P Automatic Defibrillator V45.02 Active Problem 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 Active [place] vessel Problem 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 Problem Hypercholesterolemia NOS 272.4 Active Problem Hypothyroidism (acquired) 244.9 Active Assessment S/P Automatic Defibrillator V45.02 Active Assessment Chronic systolic heart failure 428.22 Active Assessment 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 Medications Medication Code System Code Instructions Start End Date Status Dosage Date losartan MULTUM 59076 50 mg orally once Active 1 tab(s) a day nitroglycerin MULTUM 02068 0.4 mg November 26, Active 1 tab(s) sublingually every 2013 5 minutes Lantus MULTUM 59539 100 units/mL Active 34 units at subcutaneously bedtime Crestor MULTUM 06330 10 mg orally once Jan 27, Active 1 tab(s) a day (at bedtime) 2012 levothyroxine MULTUM 21252 112 mcg orally Active 2 caps once a day spironolactone MULTUM 49128 25 mg orally 3 Active 1 tab(s) times a day carvedilol MULTUM 82849 12.5 mg orally 2 Active 1 tab(s) times a day tamsulosin MULTUM 50018 0.4 mg orally bid Active 1 cap(s) gemfibrozil MULTUM 00610 600 mg orally 2 Active 1 tab(s) times a day ASA Unknown 0 81mg once a day Active 1 tab(s) omeprazole MULTUM 01272 20 mg orally once Active 1 tab(s) a day furosemide MULTUM 25511 40 mg orally once Jun 26, Active 1 tab(s) a day 2014 [place] MULTUM 28571 1000 mg orally 2 Active 1 tab(s) [...]
--- OUTSIDE RECORDS SUMMARY | 2018-07-23 13:49 | XMS REPORT ---
:1935 Author Organization eClinicalWorks Care Team Providers Name Role Hugh [place] Provider Role Unavailable Allergies, Adverse Reactions, Alerts Substance Reaction Event Type N.K.D.A. Info Not Available Non Drug Allergy Encounters Encounter Location Date Established Patient [facility] Association, [facility] Jun 25, 2014 [place] refill [facility], [facility] Aug 06, 2014 Unknown [facility]ovascular Association, [facility] August 18, 2014 chest pain. 10/06 [facility] Association, [facility] October 07, 2014 Established Patient [facility]ovascular Association, [facility] December 17, 2013 STRESS TEST Cardi[facility] Association, [facility] December 17, 2013 Established Patient [facility] Association, [facility] Mar 19, 2014 Established Patient [facility] Association, [facility] May 12, 2015 Established Patient [facility] Association, [facility] Jan 18, 2015 possible heart attack [facility], [facility] May 11, 2015 chest pain [facility], [facility] December 28, 2015 Established Patient [facility] Association, [facility] Apr 10, 2016 Pt in [facility] 05/18 [facility] Association, [facility] May 18, 2015 [place] [facility] [facility], [facility] October 19, 2015 Problems Problem Type Condition ICD-9 Code Onset Dates Condition Status Assessment Presence 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 Assessment 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 Assessment Presence of coronary angioplasty Z95.5 Active implant and graft Problem 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 Problem Presence 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 Problem Presence of coronary angioplasty Z95.5 Active implant and graft Problem Hyperlipidemia, unspecified E78.5 Active Problem Hypothyroidism, unspecified E03.9 Active Problem 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 Problem 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 Assessment 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 Assessment Hyperlipidemia, unspecified E78.5 Active Assessment 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 Medications Medication Code System Code Instructions Start Date End Date Status Dosage carvedilol MULTUM 55480 3.125 orally 2 Active 2 tab(s) times a day tamsulosin MULTUM 35792 0.4 mg orally Active 1 cap(s) once a day nitroglycerin MULTUM 98756 0.4 mg Active 1 tab(s) sublingually every 5 minutes losartan MULTUM 50056 50 mg orally once Active 1 tab(s) a day Glumetza MULTUM 82766 500 mg orally 2 Active 1 tab(s) times a day ASA Unknown 0 81mg once a day Active 1 tab(s) clopidogrel MULTUM 20916 75 mg orally once Active 1 tab(s) a day Prilosec MULTUM 363 20 mg orally once Active 1 cap(s) a day Synthroid MULTUM 2205 200 mcg (0.2 mg) Active 1 tab(s) orally once a day spironolactone MULTUM 27127 25 mg orally 3 Active 1 tab(s) times a day furosemide MULTUM 29354 40 mg orally once Active 1 tab(s) a day atorvastatin MULTUM 30235 10 mg orally once Active 1 tab(s) a day (at bedtime) glimepiride MULTUM 44594 1 mg orally bid Active 1 tab(s) [place] MULTUM 22541 1000 mg orally 2 Active 1 tab(s) [...]
--- OUTSIDE RECORDS SUMMARY | 2018-07-23 13:49 | XMS REPORT ---
:1935 [facility] Address [address] [place] [address] Care Team Providers Name Role Phone KARI DUNCAN Unavailable Unavailable Problems This patient has no known problems. Allergies, Adverse Reactions, Alerts This patient has no known allergies or adverse reactions. Medications This patient has no known medications. Results Test Description Test Time Test Comments Text Results Atomic Results Result Comments PROTHROMBIN TIME/INR 2017-12-20 07:35:00 Test Item Value Reference Range Comments PROTIME (BEAKER) (test ztso=506) 15.1 seconds 11.7-14.7 INR (BEAKER) (test pzzl=269) 1.2 <=5.9 RECOMMENDED COUMADIN/WARFARIN INR THERAPY RANGESSTANDARD DOSE: 2.0 - 3.0 Includes: PROPHYLAXIS forvenous thrombosis, systemic embolization; TREATMENT for venous thrombosis and/or pulmonary embolus.HIGH RISK: Target INR is 2.5-3.5 for patients with mechanical heart valves.BASIC METABOLIC [id number] 07:33: 00 Test Item Value Reference Range Comments SODIUM (BEAKER) (test 142 meq/L 136-145 xohp=452) POTASSIUM (BEAKER) (test 4.1 meq/L 3.5-5.1 lihf=979) CHLORIDE (BEAKER) (test 105 meq/L 98-107 cerq=103) CO2 (BEAKER) (test 28 meq/L 22-29 pixs=014) BLOOD UREA NITROGEN 30 mg/dL 7-21 (BEAKER) (test ffpt=331) CREATININE (BEAKER) (test 1.90 mg/dL 0.57-1.25 zdrn=489) GLUCOSE RANDOM (BEAKER) 118 mg/dL 70-105 (test brku=893) CALCIUM (BEAKER) (test 9.1 mg/dL 8.4-10.2 zybu=150) EGFR (BEAKER) (test 34 mL/min/1.73 sq m ESTIMATED GFR IS NOT gsdy=8101) ACCURATE CREATININE CLEARANCE IN PREDICTING GLOMERULAR FILTRATION RATE. ESTIMATED GFR IS NOT APPLICABLE FOR DIALYSIS PATIENTS. CBC W/PLT COUNT & AUTO [id number] 07:16:00 Test Item Value Reference Range Comments WHITE BLOOD CELL COUNT (BEAKER) (test cvkl=550) 4.6 K/ L 3.5-10.5 RED BLOOD CELL COUNT (BEAKER) (test nkzm=231) 3.33 M/ L 4.63-6.08 HEMOGLOBIN (BEAKER) (test ksqb=542) 10.1 GM/DL 13.7-17.5 HEMATOCRIT (BEAKER) (test efei=913) 31.9 % 40.1-51.0 MEAN CORPUSCULAR VOLUME (BEAKER) (test lkbf=542) 95.8 fL 79.0-92.2 MEAN CORPUSCULAR HEMOGLOBIN (BEAKER) (test 30.3 pg 25.7-32.2 rodw=203) MEAN CORPUSCULAR HEMOGLOBIN CONC (BEAKER) (test 31.7 GM/DL 32.3-36.5 wbig=068) RED CELL DISTRIBUTION WIDTH (BEAKER) (test 17.4 % 11.6-14.4 zvnn=232) PLATELET COUNT (BEAKER) (test vvvf=336) 99 K/CU MM 150-450 MEAN PLATELET VOLUME (BEAKER) (test xhbb=946) 11.0 fL 9.4-12.4 NUCLEATED RED BLOOD CELLS (BEAKER) (test 0 /100 WBC 0-0 acsd=345) NEUTROPHILS RELATIVE PERCENT (BEAKER) (test 68 % utpr=421) LYMPHOCYTES RELATIVE PERCENT (BEAKER) (test 20 % ysis=830) MONOCYTES RELATIVE PERCENT (BEAKER) (test 9 % nxlu=203) EOSINOPHILS RELATIVE PERCENT (BEAKER) (test 2 % aomm=537) BASOPHILS RELATIVE PERCENT (BEAKER) (test 0 % gieo=922) NEUTROPHILS ABSOLUTE COUNT (BEAKER) (test 3.12 K/ L 1.78-5.38 jufx=775) LYMPHOCYTES ABSOLUTE COUNT (BEAKER) (test 0.93 K/ L 1.32-3.57 oqeo=213) MONOCYTES ABSOLUTE COUNT (BEAKER) (test jmvc=501) 0.40 K/ L 0.30-0.82 EOSINOPHILS ABSOLUTE COUNT (BEAKER) (test 0.09 K/ L 0.04-0.54 uwuf=283) BASOPHILS ABSOLUTE COUNT (BEAKER) (test ymdz=055) 0.01 K/ L 0.01-0.08 IMMATURE GRANULOCYTES-RELATIVE PERCENT (BEAKER) 0 % 0-1 (test xfuv=5138)
--- NOTE | 2018-07-23 14:11 | RAD REPORT ---
EXAM DESCRIPTION: CT - Head Brain Wo Cont - 07/23/2018 2:03 pm CLINICAL HISTORY: Dementia/confusion COMPARISON: June 2018 TECHNIQUE: Computed axial tomography of the head was obtained. IV contrast was not requested. All CT scans are performed using dose optimization technique as appropriate and may include automated exposure control or mA/KV adjustment according to patient size. FINDINGS: An intracranial bleed is not seen . Cerebral atrophy is present The ventricles are normal in caliber. Coarse vascular calcifications are noted. No extra-axial fluid collection is noted. Mild to moderate low-density areas within periventricular, deep and subcortical white matter likely represent ischemic changes secondary to small vessel disease . Fluid within the sinuses/ mastoids is not seen. IMPRESSION: No acute intracranial abnormality is seen. If patient's symptoms persist MRI of the bra in would be recommended.
--- NOTE | 2018-07-23 14:29 | RAD REPORT ---
EXAM DESCRIPTION: [place] Single View07/23/2018 2:08 pm CLINICAL HISTORY: Chest pain COMPARISON: June 2018 FINDINGS: The lungs appear clear of acute infiltrate. The heart is mildly enlarged. Pacemaker leads are in place. Postsurgical changes involve chest IMPRESSION: No acute abnormalities displayed
[2018-07-23 14:52] LABS: Absolute Lymphocytes (CBC) 1.1 K/uL (0.7-4.9); Absolute Monocytes 0.5 K/uL (0.1-1.3); Absolute Neutrophil 4.4 K/uL (1.8-8.0); Basophils % 0.4 % (0-1.3); Eosinophils % 0.2 % (0-4.4); Hematocrit 34.6 % (39.6-49.0); Lymphocytes % 17.9 % (15.3-44.8); MPV 9.4 fL (7.6-11.3); Monocytes % 8.8 % (3.3-12.3); Protime INR 1.09; RBC Red Blood Cell Count 3.57 M/uL (4.33-5.43)
[2018-07-23 15:12] LABS: Albumin 3.2 g/dL (3.4-5.0); Bilirubin Direct 0.3 mg/dL (0-0.2); Bilirubin Total 0.9 mg/dL (0.2-1.0); Magnesium 2.3 mg/dL (1.8-2.4); Potassium 3.7 mmol/L (3.5-5.1); Protein, Total 6.1 g/dL (6.4-8.2); Troponin (Emerg Dept Use Only) 0.05 ng/mL (0.0-0.045)
--- NOTE | 2018-07-23 15:22 | ER ---
Nurse's Notes [facility] Name: Blayne Ashford Age: 82 yrs Sex: Male : 1935 Arrival Date: 07/23/2018 Time: 13:32 Bed 26 Private MD: Diagnosis: Syncope and collapse Presentation: 07/23 13:32 Presenting complaint: EMS states: pt is experiencing general weakness and loss of ca1 appetite. Transition of care: [facility]. Onset of symptoms. Onset of symptoms was July 23, 2018. Risk Assessment: Do you want to hurt yourself or someone else? Patient reports no desire to harm self or others. Initial Sepsis Screen: Does the patient meet any 2 criteria? No. Patient's initial sepsis screen is negative. Does the patient have a suspected source of infection? No. Patient's initial sepsis screen is negative. Care prior to arrival: None. 13:32 Method Of Arrival: EMS: [place] [id number] 13:32 Acuity: LASHANDA 3 ca1 Historical: - Allergies: 13:40 No Known Allergies; ca1 - Home Meds: 18:17 Aldactone 50 mg Oral tab 1 tab 2 times per day [Active]; atorvastatin 40 mg Oral tab 2 ca1 tabs nightly [Active]; buspirone 10 mg Oral tab 1 tab daily [Active]; clopidogrel 75 mg Oral tab once daily [Active]; exelon patch 13.3mg/24hrs 1 patch [Active]; isosorbide dinitrate 20 mg Oral tab 1 tab 2 times per day [Active]; lactulose 10 gram/15 mL Oral soln 30 mL nightly for constipation [Active]; Lantus 100 unit/mL Sub-Q soln 10 unit daily [Active]; Lasix 20 mg Oral tab 3 tabs 2 times per day [Active]; levothyroxine 100 mcg tab 2 tabs once daily [Active]; losartan 25 mg Oral tab once daily [Active]; metoprolol tartrate 25 mg Oral tab 1 tab 2 times per day [Active]; Namenda 5 mg Oral tab daily [Active]; omeprazole 20 mg Oral TbEC daily [Active]; Ranexa 1,000 mg Oral Tb12 1 tab 2 times per day [Active]; tamsulosin 0.4 mg Oral cp24 once daily [Active]; Tradjenta 5 mg Oral tab 1 tab once daily [Active]; Vitamin D2 50,000 unit Oral cap 1 cap once wkly [Active]; Vitamin D3 1,000 unit Oral tab 2 tab daily [Active]; acetaminophen 325 mg Oral tab 2 tabs as needed [Active]; Zofran (as hydrochloride) 4 mg Oral tab as needed [Active]; - PMHx: 13:40 angina pectoris; Anxiety; Atrial Fib; BPH; CAD; CHF; COPD; Dementia; Diabetes - NIDDM; ca1 HEART FAILURE; Hematuria; Hyperlipidemia; Hypertension; Hypothyroidism; MUSCLE WEAKNESS; Myocardial infarction; Pacemaker; Pneumonia; - Immunization history:: Flu vaccine is not up to date. - Social history:: Smoking status: Patient/guardian denies using tobacco. - Ebola Screening: : No symptoms or risks identified at this time. Screenin:30 Abuse screen: Denies threats or abuse. Denies injuries from another. Nutritional ca1 screening: No deficits noted. Tuberculosis screening: No symptoms or risk factors identified. Fall Risk Fall in past 12 months (25 points). IV access (20 points). Ambulatory Aid- Crutches/Cane/Walker (15 pts). Assessment: 13:40 General: Appears in no apparent distress. comfortable, Behavior is calm, cooperative, ca1 appropriate for age. Pain: Denies pain. Neuro: Level of Consciousness is awake, alert, obeys commands, Oriented to person, place, situation. Cardiovascular: Heart tones S1 S2 present Capillary refill < 3 seconds Patient's skin is warm and dry. Rhythm is Respiratory: Airway is patent Respiratory effort is even, unlabored, Respiratory pattern is regular, symmetrical, Breath sounds are clear bilaterally. GI: Abdomen is flat, non-distended, Bowel sounds present X 4 quads. Abd is soft and non tender X 4 quads. : No signs and/or symptoms were reported regarding the genitourinary system. EENT: No signs and/or symptoms were reported regarding the EENT system. Derm: Skin is intact, is healthy with good turgor, Skin is pink, warm \T\ dry. Musculoskeletal: Circulation, motion, and sensation intact. 14:30 Reassessment: Patient appears in no apparent distress at this time. Patient and/or ca1 family updated on plan of care and expected duration. Pain level reassessed. Patient is alert, oriented x 3, equal unlabored respirations, skin warm/dry/pink. 15:25 Reassessment: Patient appears in no apparent distress at this time. Patient and/or ca1 family updated on plan of care and expected duration. Pain level reassessed. Patient is alert, oriented x 3, equal unlabored respirations, skin warm/dry/pink. Called [facility] for Pacemaker details as per JOSE Lamar instructions. 16:14 Reassessment:. ca1 16:22 Reassessment: Patient appears in no apparent distress at this time. Patient and/or ca1 family updated on plan of care and expected duration. Pain level reassessed. Patient is alert, oriented x 3, equal unlabored respirations, skin warm/dry/pink. Awaiting orders and room assignment. General:. 16:57 Reassessment: Dr. Diaz director radio news at bedside. ca1 17:42 Reassessment: Patient appears in no apparent distress at this time. Patient and/or ca1 family updated on plan of care and expected duration. Pain level reassessed. Patient is alert, oriented x 3, equal unlabored respirations, skin warm/dry/pink. Awaiting room assignment. 18:30 Reassessment: Patient appears in no apparent distress at this time. Patient and/or ca1 family updated on plan of care and expected duration. Pain level reassessed. Patient is alert, oriented x 3, equal unlabored respirations, skin warm/dry/pink. waiting room assignment. 19:30 Reassessment: Patient appears in no apparent distress at this time. Patient is alert, ca1 oriented x 3, equal unlabored respirations, skin warm/dry/pink. [facility] called regarding Pacemaker. Details: Pacemaker implanted on 06/[address] Jessica Sanches. Senior Economist: [employer]. Model: Crete 4 Site G Active six dual, coil 59cm. MODEL # [id number]. Serial #[id number]. Polarity; Bipolar. Lead position: RV [place]. 20:20 Reassessment: Patient appears in no apparent distress at this time. Patient is alert, ca1 oriented x 3, equal unlabored respirations, skin warm/dry/pink. Vital Signs: 13:40 BP 113 / 55; Pulse 63; Resp 16; Temp 98.3; Pulse Ox 100% on R/A; Weight 83.91 kg; ca1 Height 5 ft. 7 in. (170.18 cm); Pain 0/10; 14:30 BP 118 / 51; Pulse 64; Resp 18; Pulse Ox 99% on R/A; ca1 15:15 BP 115 / 49; Pulse 66; Resp 18; Pulse Ox 100% on R/A; ca1 15:45 BP 123 / 53; Pulse 65; Resp 16; Pulse Ox 100% on R/A; ca1 16:30 BP 120 / 52; Pulse 64; Resp 19; Pulse Ox 100% on R/A; ca1 17:00 BP 114 / 54; Pulse 63; Resp 18; Pulse Ox 100% on R/A; ca1 17:35 BP 107 / 54; Pulse 64; Resp 17; Pulse Ox 100% on R/A; ca1 18:15 BP 124 / 54; Pulse 74; Resp 18; Pulse Ox 100% on R/A; ca1 18:45 BP 121 / 68; Pulse 76; Resp 19; Pulse Ox 100% on R/A; ca1 19:15 BP 112 / 90; Pulse 70; Resp 18; Pulse Ox 99% on R/A; ca1 19:30 BP 118 / 66; Pulse 78; Resp 19; Pulse Ox 100% on R/A; ca1 20:20 BP 115 / 69; Pulse 76; Resp 18; Pulse Ox 100% on R/A; ca1 13:40 Body Mass Index 28.97 (83.91 kg, 170.18 cm) ca1 ED Course: 13:32 Patient arrived in ED. ca1 13:36 Triage completed. ca1 13:40 Garret Cross PA is PHCP. jmm 13:40 Calixto Sorensen MD is Attending Physician. jmm 13:40 Arm band placed on right wrist. ca1 13:40 Patient has correct armband on for positive identification. Placed in gown. Bed in low ca1 position. Call light in reach. Side rails up X2. shelter monitor on. Pulse ox on. NIBP on. Warm blanket given. 13:50 Patient moved to radiology via stretcher. jb2 13:51 Emily Celaya, RN is Primary Nurse. ca1 14:04 CT Head Brain wo Cont In Process Unspecified. EDMS 14:06 X-ray completed. Patient tolerated procedure well. Patient moved back from radiology. jb2 14:09 XRAY Chest (1 view) In Process Unspecified. EDMS 14:29 EKG done, by biological lab technician. reviewed by Garret GARCIA. dt2 14:32 Inserted saline lock: 22 gauge in right wrist, using aseptic technique. lt1 14:32 Initial lab(s) drawn, by me, sent to lab. lt1 15:21 Rupali Beauchamp MD is Hospitalizing Provider. [facility] 19:53 No provider procedures requiring assistance completed. Patient admitted, IV remains in ca1 place. Administered Medications: No medications were administered Outcome: 15:21 Decision to Hospitalize by Provider. [facility] 19:53 Admitted to Tele accompanied by tech, via stretcher, room 407, with chart, Report ca1 called to Heidy Cardona RN 19:53 Condition: stable 19:53 Instructed on the need for admit. 20:26 Patient left the ED. ca1 Signatures: Dispatcher [employer] EDMS Garret Cross PA PA jmm Buechter, Jesse jb2 Kristyn Byrd dt2 Emily Celaya RN RN ca1 Teresa Stubbs lt1 Corrections: (The following items were deleted from the chart) 15:23 14:30 Patient has correct armband on for positive identification. Placed in gown. Bed ca1 in low position. Call light in reach. Side rails up X2. ca1 15:23 14:30 shelter monitor on. Pulse ox on. NIBP on. ca1 ca1 15:23 14:30 Warm blanket given. ca1 ca1 16:04 13:40 Cardiovascular: Heart tones S1 S2 present Capillary refill < 3 seconds Patient's ca1 skin is warm and dry. ca1 18:02 14:30 Fall Risk IV access (20 points). Ambulatory Aid- Crutches/Cane/Walker (15 pts). ca1 ca1
--- NOTE | 2018-07-23 15:22 | EDPHYS ---
Physician Documentation [facility] Name: Blayne Ashford Age: 82 yrs Sex: Male : 1935 Arrival Date: 07/23/2018 Time: 13:32 Bed 26 Private MD: ED Physician Calixto Sorensen HPI: 07/23 13:45 This 82 yrs old Male presents to ER via EMS with complaints of Syncope. [facility] 13:45 The patient has experienced syncope. Onset: The symptoms/episode began/occurred jmm acutely, today. This is an 82 year old male with a history of anxiety, atrial fib, CAD, CHF, COPD presents to the ED after a syncopal episode which occurred just prior to arrival. According to the patient's physician, the patient was found unconscious today. Patient collapsed yesterday. Patient currently denies chest pain, shortness of breath, or weakness. . Historical: - Allergies: 13:40 No Known Allergies; ca1 - Home Meds: 18:17 Aldactone 50 mg Oral tab 1 tab 2 times per day [Active]; atorvastatin 40 mg Oral tab 2 ca1 tabs nightly [Active]; buspirone 10 mg Oral tab 1 tab daily [Active]; clopidogrel 75 mg Oral tab once daily [Active]; exelon patch 13.3mg/24hrs 1 patch [Active]; isosorbide dinitrate 20 mg Oral tab 1 tab 2 times per day [Active]; lactulose 10 gram/15 mL Oral soln 30 mL nightly for constipation [Active]; Lantus 100 unit/mL Sub-Q soln 10 unit daily [Active]; Lasix 20 mg Oral tab 3 tabs 2 times per day [Active]; levothyroxine 100 mcg tab 2 tabs once daily [Active]; losartan 25 mg Oral tab once daily [Active]; metoprolol tartrate 25 mg Oral tab 1 tab 2 times per day [Active]; Namenda 5 mg Oral tab daily [Active]; omeprazole 20 mg Oral TbEC daily [Active]; Ranexa 1,000 mg Oral Tb12 1 tab 2 times per day [Active]; tamsulosin 0.4 mg Oral cp24 once daily [Active]; Tradjenta 5 mg Oral tab 1 tab once daily [Active]; Vitamin D2 50,000 unit Oral cap 1 cap once wkly [Active]; Vitamin D3 1,000 unit Oral tab 2 tab daily [Active]; acetaminophen 325 mg Oral tab 2 tabs as needed [Active]; Zofran (as hydrochloride) 4 mg Oral tab as needed [Active]; - PMHx: 13:40 angina pectoris; Anxiety; Atrial Fib; BPH; CAD; CHF; COPD; Dementia; Diabetes - NIDDM; ca1 HEART FAILURE; Hematuria; Hyperlipidemia; Hypertension; Hypothyroidism; MUSCLE WEAKNESS; Myocardial infarction; Pacemaker; Pneumonia; - Immunization history:: Flu vaccine is not up to date. - Social history:: Smoking status: Patient/guardian denies using tobacco. - Ebola Screening: : No symptoms or risks identified at this time. ROS: 13:45 Constitutional: Negative for fever, chills, and weight loss, Cardiovascular: Negative jmm for chest pain, palpitations, and edema, Respiratory: Negative for shortness of breath, cough, wheezing, and pleuritic chest pain, Neuro: Negative for headache, weakness, numbness, tingling, and seizure. 13:45 All other systems are negative. Exam: 13:45 Constitutional: This is a well developed, well nourished patient who is awake, alert, jmm and in no acute distress. Head/Face: atraumatic. Eyes: EOMI, no conjunctival erythema appreciated ENT: Moist Mucus Membranes Neck: Trachea midline, Supple Chest/axilla: Normal chest wall appearance and motion. Cardiovascular: Regular rate and rhythm. No edema appreciated Respiratory: Normal respirations, no respiratory distress appreciated Abdomen/GI: Non distended, soft Back: Normal ROM Skin: General appearance color normal MS/ Extremity: Moves all extremities, no obvious deformities appreciated, no edema noted to the lower extremities Neuro: Awake and alert, normal gait Psych: Behavior is normal, Mood is normal, Patient is cooperative and pleasant Vital Signs: 13:40 BP 113 / 55; Pulse 63; Resp 16; Temp 98.3; Pulse Ox 100% on R/A; Weight 83.91 kg; ca1 Height 5 ft. 7 in. (170.18 cm); Pain 0/10; 14:30 BP 118 / 51; Pulse 64; Resp 18; Pulse Ox 99% on R/A; ca1 15:15 BP 115 / 49; Pulse 66; Resp 18; Pulse Ox 100% on R/A; ca1 15:45 BP 123 / 53; Pulse 65; Resp 16; Pulse Ox 100% on R/A; ca1 16:30 BP 120 / 52; Pulse 64; Resp 19; Pulse Ox 100% on R/A; ca1 17:00 BP 114 / 54; Pulse 63; Resp 18; Pulse Ox 100% on R/A; ca1 17:35 BP 107 / 54; Pulse 64; Resp 17; Pulse Ox 100% on R/A; ca1 18:15 BP 124 / 54; Pulse 74; Resp 18; Pulse Ox 100% on R/A; ca1 18:45 BP 121 / 68; Pulse 76; Resp 19; Pulse Ox 100% on R/A; ca1 19:15 BP 112 / 90; Pulse 70; Resp 18; Pulse Ox 99% on R/A; ca1 19:30 BP 118 / 66; Pulse 78; Resp 19; Pulse Ox 100% on R/A; ca1 20:20 BP 115 / 69; Pulse 76; Resp 18; Pulse Ox 100% on R/A; ca1 13:40 Body Mass Index 28.97 (83.91 kg, 170.18 cm) ca1 MDM: 13:45 Patient medically screened. [facility] 15:20 Data reviewed: vital signs, nurses notes. Counseling: I had a detailed discussion with brittnee the patient and/or guardian regarding: the historical points, exam findings, and any diagnostic results supporting the discharge/admit diagnosis, lab results, the need for further work-up and treatment in the hospital. ED course: I discussed the patient with Dr Beauchamp whom accepted admission. . 07/23 13:46 Order name: Basic Metabolic Panel; Complete Time: 15:17 [facility] 07/23 13:46 Order name: CBC with Diff; Complete Time: 14:54 [facility] 07/23 13:46 Order name: LFT's; Complete Time: 15:17 [facility] 07/23 13:46 Order name: Magnesium; Complete Time: 15:17 [facility] 07/23 13:46 Order name: NT PRO-BNP; Complete Time: 15:17 [facility] 07/23 13:46 Order name: PT-INR; Complete Time: 14:54 [facility] 07/23 13:46 Order name: Troponin (emerg Dept Use Only); Complete Time: 15:17 [facility] 07/23 13:46 Order name: XRAY Chest (1 view); Complete Time: 14:31 [facility] 07/23 13:46 Order name: EKG; Complete Time: 13:47 [facility] 07/23 13:46 Order name: Cardiac monitoring; Complete Time: 14:36 [facility] 07/23 13:46 Order name: EKG - Nurse/Tech; Complete Time: 14:36 [facility] 07/23 13:46 Order name: IV Saline Lock; Complete Time: 14:36 [facility] 07/23 13:46 Order name: Labs collected and sent; Complete Time: 14:36 [facility] 07/23 13:46 Order name: CT Head Brain wo Cont; Complete Time: 14:23 [facility] 07/23 13:46 Order name: O2 Per Protocol; Complete Time: 14:36 [facility] 07/23 13:46 Order name: O2 Sat Monitoring; Complete Time: 14:36 [facility] Administered Medications: No medications were administered Disposition: 18:52 Co-signature as Attending Physician, Calixto Sorensen MD. rn Disposition: 07/23/18 15:21 Hospitalization ordered by Rupali Beauchamp for Observation. Preliminary diagnosis is Syncope and collapse. - Bed requested for Telemetry/MedSurg (observation). - Status is Observation. ca1 - Condition is Stable. - Problem is new. - Symptoms have improved. UTI on Admission? No Signatures: Dispatcher [employer] EDMS Garret Cross PA PA [facility] Calixto Sorensen MD MD rn Smirch, Shelby, RN RN ss Emily Celaya RN RN ca1 Corrections: (The following items were deleted from the chart) 14:52 13:25 This 82 yrs old Male presents to ER via EMS with complaints of Syncope. [facility] 19:01 15:21 Hospitalization Ordered by Rupali Beauchamp MD for Observation. Preliminary diagnosis ss is Syncope and collapse. Bed requested for Telemetry/MedSurg (observation). Status is Observation. Condition is Stable. Problem is new. Symptoms have improved. UTI on Admission? No. [facility] 20:26 19:01 07/23/2018 15:21 Hospitalization Ordered by Rupali Beauchamp MD for Observation. ca1 Preliminary diagnosis is Syncope and collapse. Bed requested for Telemetry/MedSurg (observation). Status is Observation. Condition is Stable. Problem is new. Symptoms have improved. UTI on Admission? No. ss
--- NOTE | 2018-07-23 16:44 | EKG ---
Test Date: 2018-07-23 Test Time: 14:15:56 [employer] Operator: CATHERINE MEASUREMENT RESULTS: Intervals: Rate: 62 IA: QRSD: 122 QT: 414 QTc: 420 [place]: P: 81 IA: QRS: 15 T: 159 INTERPRETIVE STATEMENTS: Atrial flutter with 4:1 AV conduction Nonspecific intraventricular conduction delay ST & T wave abnormality, consider lateral ischemia Abnormal ECG Compared to ECG 07/05/2018 18:48:15 no significant change from previous ECG Electronically Signed On 07-23-18 16:43:57 [employer] by Phil Diaz
[2018-07-23 21:17] VITALS: BMI 22.6
[2018-07-24 04:30] LABS: Absolute Lymphocytes (CBC) 1.5 K/uL (0.7-4.9); Absolute Monocytes 0.6 K/uL (0.1-1.3); Absolute Neutrophil 3.3 K/uL (1.8-8.0); Basophils % 0.8 % (0-1.3); Eosinophils % 0.8 % (0-4.4); Hematocrit 32.6 % (39.6-49.0); Lymphocytes % 27.5 % (15.3-44.8); MPV 9.5 fL (7.6-11.3); Monocytes % 11.1 % (3.3-12.3); RBC Red Blood Cell Count 3.42 M/uL (4.33-5.43)
[2018-07-24 04:43] LABS: Albumin 2.9 g/dL (3.4-5.0); Bilirubin Total 0.9 mg/dL (0.2-1.0); Potassium 3.2 mmol/L (3.5-5.1); Protein, Total 5.4 g/dL (6.4-8.2)
[2018-07-24] MEDS ORDERED: ACETAMINOPHEN PO PRN (06:37)
[2018-07-24] MEDS ORDERED: HOME MED 1 EA UNK (Ondansetron Hcl [Zofran] 4 MG) PO PRN (06:37)
[2018-07-24] MEDS ORDERED: HOME MED 1 EA UNK (Lactulose [Lactulose] 30 ML) PO PRN (06:37)
[2018-07-24] MEDS ORDERED: RIVASTIGMINE 4.6 MG/24 HR PATCH TD SCH (06:45)
[2018-07-24] MEDS: RANOLAZINE PO SCH ×2 (08:00→09:00)
[2018-07-24] MEDS: ISOSORBIDE DINIT 20 MG TAB PO SCH ×3 (09:00→21:00)
[2018-07-24] MEDS ORDERED: RIVASTIGMINE 13.3 MG/24 HR PO SCH (09:00)
[2018-07-24] MEDS: DRISDOL (VITAMIN D=ERGOCALCIFEROL) 50000 UNIT CAP PO SCH (09:00)
[2018-07-24] MEDS: SPIRONOLACTONE PO SCH (09:00)
[2018-07-24] MEDS: METOPROLOL TAR 25 MG TAB PO SCH ×2 (09:00→21:00)
[2018-07-24] MEDS ORDERED: HOME MED 1 EA UNK (Linagliptin [Tradjenta] 5 MG) PO SCH (09:00)
[2018-07-24] MEDS: NA CHLORIDE 0.9% 1,000 ML IV SCH (09:42)
--- NOTE | 2018-07-24 09:48 | RAD REPORT ---
EXAM DESCRIPTION: - CP - 07/24/2018 8:16 am CLINICAL HISTORY: Syncope COMPARISON: None. TECHNIQUE: Real-time sonographic evaluation of both carotid systems was performed. Hickman scale and Do ppler interrogation were performed with waveform tracing bilaterally. FINDINGS: Normal high resistance waveforms are noted in both external carotid arteries. The common c arotid arteries and internal carotid arteries show normal low resistance waveforms. Bilateral common carotid artery, bulb and ICA calcified plaquing changes. On the left there is no sig nificant luminal narrowing on visual inspection. On the right there is borderline stenosis in the car otid bulb region. A 1.6 ICA/ CCA ratio present on the right. A 0.8 left ICA/ CCA ratio. Bilateral thomas ocity values are normal range. Antegrade flow seen in both vertebral arteries. Velocity values and ratios were recorded and are retained in the patient's imaging records. IMPRESSION: Significant bilateral calcified and noncalcified plaquing. Right-sided stenosis is approximately 50%. No significant left-sided stenosis.
[2018-07-24] MEDS ORDERED: POTASSIUM CL SA 10 MEQ TAB PO ONE (09:49)
[2018-07-24] MEDS: INSULIN GLARGINE 100 UNITS/ML SQ SCH (09:52)
[2018-07-24] MEDS: VITAMIN D 1000 UNIT TAB PO SCH (09:54)
[2018-07-24] MEDS: BUSPIRONE HCL 5 MG TABLET PO SCH (09:54)
[2018-07-24] MEDS: MEMANTINE HCL 10 MG TABLET PO SCH (09:54)
[2018-07-24] MEDS: CLOPIDOGREL 75 MG TABLET PO SCH (09:55)
--- NOTE | 2018-07-24 17:19 | P.PN ---
Subjective Date of Service: 07/24/18 Patient seen and examined at bedside. No family at bedside. Chart reviewed and case discussed with nursing staff. Patient alert oriented x2. Unsure of baseline. Patient is a sn[facility] patient from [facility] admitted for episodes of syncope Patient has a history of CAD, CHF and he does have a pacemaker in place Review of Systems 10-point ROS is otherwise unremarkable Physical Examination - Vital Signs Temperature: 97.6 F Blood Pressure: 92/41 Pulse: 68 Respirations: 16 Pulse Ox (%): 100 - Physical Exam General: Alert, In no apparent distress, Oriented x2 HEENT: Atraumatic, PERRLA, EOMI Neck: Supple, JVD not distended Respiratory: Clear to auscultation bilaterally, Normal air movement Cardiovascular: Regular rate/rhythm, Normal S1 S2 Gastrointestinal: Normal bowel sounds, No tenderness Musculoskeletal: No tenderness Integumentary: No rashes Neurological: Normal speech, Normal tone, Normal affect Lymphatics: No axilla or inguinal lymphadenopathy Assessment And Plan - Current Problems (Diagnosis) (1) Syncope Current Visit: Yes Status: Acute (2) CAD (coronary artery disease) Onset Date: 12/31/17 Current Visit: No Status: Chronic Qualifiers: (3) Dementia Onset Date: 12/31/17 Current Visit: No Status: Chronic Qualifiers: - Plan 1. Carotid Doppler 2. Echocardiogram review 3. adjust blood pressure medications and monitor hemodynamics closely. Patient with significant dilated cardiomyopathy. Need to make sure patient's blood pressure is stable. Patient probably needs to be inpatient because of his numerous medical conditions and the fact that without his cardiac medications his cardiac disease can worsen. This ago the require a lot of work and is going to be a fine balance between given him too much medication and not enough. This may take more than 2 days of hospitalization to make sure he is safe for discharge. At this time will continue to adjust his medications through his hospital stay.
--- NOTE | 2018-07-24 17:57 | P.HP ---
Certification for Inpatient Patient admitted to: Observation With expected LOS: <2 Midnights Patient will require the following post-hospital care: None Practitioner: I am a practitioner with admitting privileges, knowledge of patient current condition, hospital course, and medical plan of care. Services: Services provided to patient in accordance with Admission requirements found in Title 42 Section 412.3 of the Code of Federal Regulations Patient History Date of Service: 07/23/18 Reason for admission: Syncope and collapse History of Present Illness: Patient is an 82-year-old gentleman who came into the hospital with a syncopal event. Patient passed out completely. Patient on numerous cardiac medications. Patient was also dehydrated. Patient had acute kidney injury. Patient was hypotensive and orthostatic in the emergency room. Patient is on numerous blood pressure medications and these may need to be adjusted. Patient may be getting orthostatic from the blood pressure medication. This is a major concern. We will have to address this in the hospital. He needs his cardiac medications as without them he says he has angina. If we stop his medications and he starts having angina symptoms he will probably have recurrence ER visits. Hopefully will be able to get his blood pressure medications adjusted adequately. Allergies No Known Allergies Allergy (Verified 07/23/18 22:49) Home Medications: Acetaminophen 2 tab PO PRN PRN 07/23/18 Atorvastatin Calcium 2 tab PO BEDTIME 07/23/18 Buspirone HCl [Buspar] 10 mg PO DAILY 07/23/18 Cholecalciferol (Vitamin D3) [Vitamin D3] 2 tab PO DAILY 07/23/18 Clopidogrel Bisulfate [Plavix] 75 mg PO DAILY 07/23/18 Ergocalciferol (Vitamin D2) [Vitamin D2] 50,000 unit PO EVERY 7TH DAY 07/23/18 Furosemide [Lasix] 3 tab PO BID 07/23/18 Insulin Glargine Human [Lantus] 10 unit SQ DAILY 07/23/18 Isosorbide Dinit [Isordil] 20 mg PO BID 07/23/18 Lactulose 30 ml PO PRN PRN 07/23/18 Levothyroxine [Synthroid] 2 tab PO [id number] 07/23/18 Linagliptin [Tradjenta] 5 mg PO DAILY 07/23/18 Losartan Potassium 25 mg PO DAILY 07/23/18 Memantine HCl [Namenda] 5 mg PO DAILY 07/23/18 Metoprolol Tartrate 1 tab PO BID 07/23/18 Omeprazole 20 mg PO DAILY 07/23/18 Ondansetron HCl [Zofran] 4 mg PO PRN PRN 07/23/18 Ranolazine [Ranexa] 1 tab PO BID 07/23/18 Rivastigmine [Exelon] 13.3 mg TD Q24H 07/23/18 Spironolactone [Aldactone] 1 tab PO BID 07/23/18 Tamsulosin [Flomax] 0.4 mg PO BEDTIME 07/23/18 - Past Medical/Surgical History Diabetic: Yes -: NIDDM -: PAcemaker -: afib per hx -: CAD -: chronic systolic CHF EF 25-29% -: Dementia -: hypothyroidism -: HTN -: Pneumonia -: COPD -: BPH -: angina -: pacemaker -: triple bypass - Family History Father Medical History: Heart disease - Social History Smoking Status: Unknown if ever smoked Place of Residence: [facility] Review of Systems 10-point ROS is otherwise unremarkable Physical Examination - Vital Signs Temperature: 97.6 F Blood Pressure: 92/41 Pulse: 68 Respirations: 16 Pulse Ox (%): 100 - Physical Exam General: Alert, In no apparent distress, Oriented x3 HEENT: Atraumatic, PERRLA, Mucous membr. moist/pink, EOMI, Sclerae nonicteric Neck: Supple, 2+ carotid pulse no bruit, No LAD, Without JVD or thyroid abnormality Respiratory: Clear to auscultation bilaterally, Normal air movement Cardiovascular: Regular rate/rhythm, Normal S1 S2 Gastrointestinal: Normal bowel sounds, No tenderness Musculoskeletal: No tenderness Integumentary: No rashes Neurological: Normal gait, Normal speech, Normal strength at 5/5 x4 extr, Normal tone, Normal affect Lymphatics: No axilla or inguinal lymphadenopathy Assessment & Plan - Problems (Diagnosis) (1) Dilated cardiomyopathy Current Visit: Yes Status: Acute (2) Syncope Current Visit: Yes Status: Acute (3) CAD (coronary artery disease) Onset Date: 12/31/17 Current Visit: No Status: Chronic Qualifiers: (4) Chronic renal disease Onset Date: 12/31/17 Current Visit: No Status: Chronic Qualifiers: Chronic kidney disease stage: stage 3 (moderate) Qualified Code(s): N18.3 - Chronic kidney disease, stage 3 (moderate) (5) Diabetes mellitus Onset Date: 10/21/17 Current Visit: No Status: Chronic Qualifiers: Diabetes mellitus type: type 2 Diabetes mellitus retirement insulin use: without retirement use Diabetes mellitus complication status: with unspecified complications Qualified Code(s): E11.8 - Type 2 diabetes mellitus with unspecified complications (6) History of pacemaker Current Visit: No Status: Chronic (7) Hypothyroidism Onset Date: 10/21/17 Current Visit: No Status: Chronic Qualifiers: Hypothyroidism type: acquired Qualified Code(s): E03.9 - Hypothyroidism, unspecified - Plan Plan: 1. Carotid Doppler 2. Echocardiogram review 3. adjust blood pressure medications and monitor hemodynamics closely. Patient with significant dilated cardiomyopathy. Need to make sure patient's blood pressure is stable. Patient probably needs to be inpatient because of his numerous medical conditions and the fact that without his cardiac medications his cardiac disease can worsen. This ago the require a lot of work and is going to be a fine balance between given him too much medication and not enough. This may take more than 2 days of hospitalization to make sure he is safe for discharge. At this time will continue to adjust his medications through his hospital stay. Discharge Plan: Home Plan to discharge in: Greater than 2 days - Advance Directives Does patient have a Living Will: No Does patient have a Durable POA for Healthcare: No - Code Status/Comfort Care Code Status Assessed: Yes Code Status: Full Code Critical Care: No Time Spent Managing PTS Care (In Minutes): 45
--- NOTE | 2018-07-24 21:26 | CON ---
CARDIOLOGY CONSULT Additional Attending Physician: Dr. Montiel. Chief Complaint: Loss of consciousness. History Of Present Illness: Mr. Ashford lives in a skilled nursing. He has severe dementia. He has chron ic atrial flutter and often times his heart rate will become fairly fast. He has a defibrillator and at the time he had his 2 syncopal spells, there was no cardiac arrhythmia. [facility] does [facility] flutter and sometimes his ventricular response rate will go up. All o f the available heart rates are in the 50s when he is at rest. One of his blood pressures was 92/41. Medications: His outpatient medications have been Tylenol, vitamin D3, Tradjenta, tamsulosin, Ranexa , omeprazole, memantine, metoprolol, losartan, levothyroxine, furosemide, insulin, lactulose, rivasti gmine, clopidogrel, buspirone, atorvastatin, spironolactone, and Zofran. Allergies: HE HAS NO KNOWN ALLERGIES. Past Medical History: He has a history of coronary heart disease, atrial flutter, and left ventricul ar dysfunction. Physical Examination: General: He is alert, very confused, and does not really remember much of anything. Assessment And Plan: He has had a defibrillator interrogation. There is really nothing to take care of there. We could consider giving him a higher dose of beta-dakota to avoid some of the higher he art rates, but at this point, I do not think that would really help anything. I am in favor of prudence rendon changes. I think Mr. Ashford from a cardiology standpoint is ready to be discharged back home whenever it is okay with Dr. Beauchamp. MARGOTH/KO Voice ID: [id number] Report ID: [id number]
[2018-07-25] MEDS: ATORVASTATIN 40 MG TAB PO SCH ×2 (00:23→22:09)
[2018-07-25] MEDS: TAMSULOSIN 0.4 MG SR CAP PO SCH ×2 (00:23→22:08)
[2018-07-25] MEDS: NA CHLORIDE 0.9% 1,000 ML IV SCH ×2 (03:00→22:17)
[2018-07-25 06:13] LABS: Absolute Lymphocytes (CBC) 1.4 K/uL (0.7-4.9); Absolute Monocytes 0.7 K/uL (0.1-1.3); Absolute Neutrophil 3.9 K/uL (1.8-8.0); Basophils % 0.6 % (0-1.3); Eosinophils % 0.9 % (0-4.4); Hematocrit 32.6 % (39.6-49.0); Lymphocytes % 23.1 % (15.3-44.8); MPV 9.3 fL (7.6-11.3); Monocytes % 11.7 % (3.3-12.3); RBC Red Blood Cell Count 3.38 M/uL (4.33-5.43)
[2018-07-25 06:29] LABS: Albumin 2.8 g/dL (3.4-5.0); Bilirubin Total 0.9 mg/dL (0.2-1.0); Potassium 3.8 mmol/L (3.5-5.1); Protein, Total 5.3 g/dL (6.4-8.2)
[2018-07-25] MEDS: ISOSORBIDE DINIT 20 MG TAB PO SCH ×2 (09:00→21:00)
[2018-07-25] MEDS: SPIRONOLACTONE PO SCH (09:00)
[2018-07-25] MEDS: METOPROLOL TAR 25 MG TAB PO SCH ×2 (09:00→21:00)
[2018-07-25] MEDS: PANTOPRAZOLE 40MG TABLET PO SCH (09:25)
[2018-07-25] MEDS: LEVOTHYROXINE SOD 0.1 MG TAB PO SCH (09:25)
[2018-07-25] MEDS: MEMANTINE HCL 10 MG TABLET PO SCH (09:26)
[2018-07-25] MEDS: DRISDOL (VITAMIN D=ERGOCALCIFEROL) 50000 UNIT CAP PO SCH (09:26)
[2018-07-25] MEDS: CLOPIDOGREL 75 MG TABLET PO SCH (09:27)
[2018-07-25] MEDS: VITAMIN D 1000 UNIT TAB PO SCH (09:27)
[2018-07-25] MEDS: INSULIN GLARGINE 100 UNITS/ML SQ SCH (09:28)
[2018-07-25] MEDS: BUSPIRONE HCL 5 MG TABLET PO SCH (12:50)
--- NOTE | 2018-07-25 18:36 | P.PN ---
Subjective Date of Service: 07/25/18 Chief Complaint: Syncope and collapse Subjective: Improving Patient seen and examined at bedside. No family at bedside. Chart reviewed and case discussed with nursing staff. Patient alert oriented x2. Unsure of baseline. Patient is a long-term patient from [facility] admitted for episodes of syncope Patient has a history of CAD, CHF and he does have a pacemaker in place Review of Systems 10-point ROS is otherwise unremarkable Physical Examination - Vital Signs Temperature: 97.6 F Blood Pressure: 92/41 Pulse: 68 Respirations: 16 Pulse Ox (%): 100 - Physical Exam General: In no apparent distress, Oriented x2 HEENT: Atraumatic, PERRLA, EOMI Neck: Supple, JVD not distended Respiratory: Clear to auscultation bilaterally, Normal air movement Cardiovascular: Regular rate/rhythm, Normal S1 S2 Gastrointestinal: Normal bowel sounds, No tenderness Musculoskeletal: No tenderness Integumentary: No rashes Neurological: Normal speech, Normal tone, Normal affect Lymphatics: No axilla or inguinal lymphadenopathy Assessment And Plan - Current Problems (Diagnosis) (1) Syncope Current Visit: Yes Status: Acute (2) CAD (coronary artery disease) Onset Date: 12/31/17 Current Visit: No Status: Chronic Qualifiers: (3) Dementia Onset Date: 12/31/17 Current Visit: No Status: Chronic Qualifiers: (4) Dilated cardiomyopathy Current Visit: Yes Status: Acute - Plan Carotid Doppler reviewed Cardiology consulted, recommendations appreciated. No cardiac interventions planned at this time. We will continue to adjust blood pressure medications and monitor hemodynamics closely. Patient with significant dilated cardiomyopathy. Need to make sure patient's blood pressure is stable. continue to adjust his medications through his hospital stay.
[2018-07-26] MEDS: LEVOTHYROXINE SOD 0.1 MG TAB PO SCH (05:24)
[2018-07-26] MEDS: PANTOPRAZOLE 40MG TABLET PO SCH (05:24)
[2018-07-26 06:19] LABS: Absolute Lymphocytes (CBC) 1.2 K/uL (0.7-4.9); Absolute Monocytes 0.6 K/uL (0.1-1.3); Absolute Neutrophil 3.3 K/uL (1.8-8.0); Basophils % 0.8 % (0-1.3); Eosinophils % 1.1 % (0-4.4); Hematocrit 32.3 % (39.6-49.0); MPV 9.1 fL (7.6-11.3); Monocytes % 10.9 % (3.3-12.3); RBC Red Blood Cell Count 3.34 M/uL (4.33-5.43)
[2018-07-26 06:36] LABS: Albumin 2.7 g/dL (3.4-5.0); Bilirubin Total 0.9 mg/dL (0.2-1.0); Protein, Total 5.3 g/dL (6.4-8.2)
[2018-07-26] MEDS: MEMANTINE HCL 10 MG TABLET PO SCH (08:44)
[2018-07-26] MEDS: VITAMIN D 1000 UNIT TAB PO SCH (08:44)
[2018-07-26] MEDS: CLOPIDOGREL 75 MG TABLET PO SCH (08:44)
[2018-07-26] MEDS: BUSPIRONE HCL 5 MG TABLET PO SCH (08:44)
[2018-07-26] MEDS: SPIRONOLACTONE PO SCH (08:44)
[2018-07-26] MEDS: METOPROLOL TAR 25 MG TAB PO SCH ×2 (08:45→17:07)
[2018-07-26] MEDS: ISOSORBIDE DINIT 20 MG TAB PO SCH (08:45)
[2018-07-26] MEDS: INSULIN GLARGINE 100 UNITS/ML SQ SCH (08:45)
--- NOTE | 2018-07-26 13:36 | P.PN ---
Subjective Date of Service: 07/26/18 Chief Complaint: Syncope and collapse Subjective: No C/O voiced Patient seen and examined at bedside. No family at bedside. Chart reviewed and case discussed with nursing staff. Patient alert oriented x2. Unsure of baseline. Patient is a group home patient from [facility] admitted for episodes of syncope Patient has a history of CAD, CHF and he does have a pacemaker in place Review of Systems 10-point ROS is otherwise unremarkable Physical Examination - Vital Signs Temperature: 97.7 F Blood Pressure: 108/46 Pulse: 66 Respirations: 18 Pulse Ox (%): 100 - Physical Exam General: Alert, In no apparent distress, Oriented x2 HEENT: Atraumatic, PERRLA, EOMI Neck: Supple, JVD not distended Respiratory: Clear to auscultation bilaterally, Normal air movement Cardiovascular: Regular rate/rhythm, Normal S1 S2 Gastrointestinal: Normal bowel sounds, No tenderness Musculoskeletal: No tenderness Integumentary: No rashes Neurological: Normal speech, Normal tone, Normal affect Lymphatics: No axilla or inguinal lymphadenopathy Assessment And Plan - Current Problems (Diagnosis) (1) Syncope Current Visit: Yes Status: Acute (2) CAD (coronary artery disease) Onset Date: 12/31/17 Current Visit: No Status: Chronic Qualifiers: (3) Dementia Onset Date: 12/31/17 Current Visit: No Status: Chronic Qualifiers: (4) Dilated cardiomyopathy Current Visit: Yes Status: Acute - Plan Carotid Doppler reviewed Cardiology consulted, recommendations appreciated. No cardiac interventions planned at this time. We will decrease his metoprolol to 12.5 mg BID and decrease his Isordil to 10 mg b.i.d. We will continue to monitor slough pressure. Once blood pressure stabilized, he will be discharged back to his group home. Discharge Plan: [facility]
[2018-07-26] MEDS ORDERED: METOPROLOL TAR 25 MG TAB PO SCH (18:00)
[2018-07-26] MEDS: NA CHLORIDE 0.9% 1,000 ML IV SCH (18:19)
[2018-07-26] MEDS ORDERED: ISOSORBIDE DINIT 5 MG TAB PO SCH (21:00)
[2018-07-26] MEDS: ATORVASTATIN 40 MG TAB PO SCH (21:17)
[2018-07-26] MEDS: TAMSULOSIN 0.4 MG SR CAP PO SCH (21:17)
[2018-07-26] MEDS: ISOSORBIDE DINIT 5 MG TAB PO SCH (21:25)
[2018-07-27] MEDS: LEVOTHYROXINE SOD 0.1 MG TAB PO SCH (05:33)
[2018-07-27] MEDS: PANTOPRAZOLE 40MG TABLET PO SCH (05:33)
[2018-07-27] MEDS: METOPROLOL TAR 25 MG TAB PO SCH ×2 (05:34→17:06)
[2018-07-27] MEDS: NA CHLORIDE 0.9% 1,000 ML IV SCH (06:24)
[2018-07-27] MEDS: BUSPIRONE HCL 5 MG TABLET PO SCH (08:01)
[2018-07-27] MEDS: MEMANTINE HCL 10 MG TABLET PO SCH (08:02)
[2018-07-27] MEDS: CLOPIDOGREL 75 MG TABLET PO SCH (08:02)
[2018-07-27] MEDS: VITAMIN D 1000 UNIT TAB PO SCH (08:02)
[2018-07-27] MEDS: SPIRONOLACTONE PO SCH (08:03)
[2018-07-27] MEDS: INSULIN GLARGINE 100 UNITS/ML SQ SCH (08:08)
[2018-07-27] MEDS: ISOSORBIDE DINIT 5 MG TAB PO SCH (09:32)
[2018-07-27 11:55] VITALS: O2SAT 100
--- NOTE | 2018-07-27 14:53 | P.SSS ---
Patient History Date of Service: 07/27/18 Reason for admission: Syncope and collapse History of Present Illness: Patient is an 82-year-old gentleman who came into the hospital with a syncopal event. Patient passed out completely. Patient on numerous cardiac medications. Patient was also dehydrated. Patient had acute kidney injury. Patient was hypotensive and orthostatic in the emergency room. Patient is on numerous blood pressure medications and these may need to be adjusted. Patient may be getting orthostatic from the blood pressure medication. This is a major concern. We will have to address this in the hospital. He needs his cardiac medications as without them he says he has angina. If we stop his medications and he starts having angina symptoms he will probably have recurrence ER visits. Hopefully will be able to get his blood pressure medications adjusted adequately. Allergies No Known Allergies Allergy (Verified 07/23/18 22:49) Home Medications: Acetaminophen 2 tab PO PRN PRN 07/23/18 Atorvastatin Calcium 2 tab PO BEDTIME 07/23/18 Buspirone HCl [Buspar] 10 mg PO DAILY 07/23/18 Cholecalciferol (Vitamin D3) [Vitamin D3] 2 tab PO DAILY 07/23/18 Clopidogrel Bisulfate [Plavix*] 75 mg PO DAILY 07/23/18 Ergocalciferol (Vitamin D2) [Vitamin D2] 50,000 unit PO EVERY 7TH DAY 07/23/18 Insulin Glargine Human [Lantus*] 10 unit SQ DAILY 07/23/18 Lactulose 30 ml PO PRN PRN 07/23/18 Levothyroxine [Synthroid*] 2 tab PO [id number] 07/23/18 Linagliptin [Tradjenta] 5 mg PO DAILY 07/23/18 Memantine HCl [Namenda] 5 mg PO DAILY 07/23/18 Omeprazole 20 mg PO DAILY 07/23/18 Ondansetron HCl [Zofran] 4 mg PO PRN PRN 07/23/18 Ranolazine [Ranexa] 1 tab PO BID 07/23/18 Rivastigmine [Exelon] 13.3 mg TD Q24H 07/23/18 Spironolactone [Aldactone] 1 tab PO BID 07/23/18 Tamsulosin [Flomax*] 0.4 mg PO BEDTIME 07/23/18 Isosorbide Dinit [Isordil*] 10 mg PO BID #30 tab 07/27/18 Metoprolol Tartrate [Lopressor*] 12.5 mg PO BID 6AM 6PM #60 tab 07/27/18 - Past Medical/Surgical History Diabetic: Yes -: NIDDM -: PAcemaker -: afib per hx -: CAD -: chronic systolic CHF EF 25-29% -: Dementia -: hypothyroidism -: HTN -: Pneumonia -: COPD -: BPH -: angina -: pacemaker -: triple bypass - Family History Father -: Heart disease - Social History Smoking Status: Unknown if ever smoked Alcohol use: No CD- Drugs: No Caffeine use: No Place of Residence: [facility] Review of Systems 10-point ROS is otherwise unremarkable Physical Examination - Vital Signs Temperature: 97 F Blood Pressure: 103/84 Pulse: 60 Respirations: 18 Pulse Ox (%): 100 - Diagnosis (Problem(s)) (1) Syncope Current Visit: Yes Status: Acute (2) CAD (coronary artery disease) Onset Date: 12/31/17 Current Visit: No Status: Chronic Qualifiers: (3) Dementia Onset Date: 12/31/17 Current Visit: No Status: Chronic Qualifiers: (4) Dilated cardiomyopathy Current Visit: Yes Status: Acute Treatment Summary: \patient was admitted to the floor with tele. Cardiology was consulted. Per cardiology, no cardiac interventions planned at this time. His medications were modified. His metoprolol was decreased to 12 0.5 mg b.i.d. and his Isordil was decreased to 10 mg b.i.d.. His blood pressure is improved. He did not have any more syncopal/presyncopal episodes while in the hospital. [facility] with the above-mentioned medication changes. 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 - Disposition Disposition: TRANSFER TO [facility] Condition: GOOD Patient Discharge Instructions: Please follow up with the primary care physician 1 week. Medication changes: We decrease her metoprolol dose to 12.5 mg twice a day, your Isordil to 10 mg daily. Please discontinue Lasix and will start in until you are able to follow up with the utility plant operative or your primary care physician. Please return to the emergency room for worsening symptom Diet: AHA Activity: Ad charo Time Spent Managing Pts Care (In Minutes): 55
[2018-07-27 16:06] VITALS: BP 132/59; TEMP 97.4
== END 2018-07-27 18:55 ==
LOC: ER 13:27 → ERHOLD 15:58 → 4TH 20:01
PROVIDERS: ADMIT Family Medicine; ATTEND Hospitalist
DX: R55 Syncope and collapse (principal); E86.0 Dehydration; N17.9 Acute kidney failure, unspecified; E11.9 Type 2 diabetes mellitus without complications; E03.9 Hypothyroidism, unspecified; I25.10 Atherosclerotic heart disease of native coronary artery without angina pectoris; J44.9 Chronic obstructive pulmonary disease, unspecified; I11.0 Hypertensive heart disease with heart failure; I50.22 Chronic systolic (congestive) heart failure; F03.90 Unspecified dementia, unspecified severity, without behavioral disturbance, psychotic disturbance, mood disturbance, and anxiety; I42.0 Dilated cardiomyopathy; I48.92 Unspecified atrial flutter; Z95.0 Presence of cardiac pacemaker; Z95.1 Presence of aortocoronary bypass graft
CPT/HCPCS: 36415 ×3; 70450; 71045; 80048; 80053 ×3; 80076; 82962 ×9; 83735; 83880; 84132; 84484; 85025 ×4; 85610; 93005; 93880; 94760 ×8; 97116; 97161; 97530; 99285; G0378 ×2; J7030 ×5

== ENCOUNTER 2018-09-19 07:26 | Observation (INO) | payer OTHER ==
--- OUTSIDE RECORDS SUMMARY | 2018-09-19 07:29 | XMS REPORT | Clinical Summary ---
:1935 Author Organization [facility] Address [address] [place] [address] Care Team Providers Name Role Phone Mulugeta [...] 12/17/2017 Orders Only Dwayne Flores MD after 09/18/2017 Social History Tobacco Use Types Packs/Day Years [...] Not on file Implants Implanted Type Area Cdl Instructor Device Shelf Model / Identifier Expiration Serial / Date Lot Inogen El Icd Vr Defibrillators N/A: [place] 07/10/2019 [id number] / Implanted: Qty: 1 on 12/20/2017 by Dwayne Flores MD Chest SCIENTIFIC [id number] / Procedures Procedure Name Priority Date/Time Associated Diagnosis Comments ARRYTHMIA IMPLANT 09/16/2018 7:10 AM REPORT - SCAN CDT CARDIAC CATH REPORT - 12/24/2017 5:44 PM [...] 426 ms QTC Calculation(Bazett) 418 ms P [place] 45 degrees R [place] -25 degrees T [place] 139 degrees Atrial flutter with variable A-V block with premature ventricular or aberrantly conducted complexes Possible Anterior infarct , age undetermined ST & T wave abnormality, consider inferolateral ischemia Abnormal ECG No previous ECGs available ECG 12-LEAD Routine 12/20/2017 7:00 AM CDT after 09/18/2017 Results ARRYTHMIA IMPLANT REPORT - SCAN (09/16/2018 7:10 AM CDT)Only the most recent of2 resultswithin the time period is included. Narrative Performed At CARDIAC CATH REPORT - SCAN (12/24/2017 5:44 PM CDT) Narrative Performed At CBC with platelet count + automated diff (12/20/2017 7:05 AM CDT) WBC 4.6 3.5 - 10.5 K/L [facility] RBC 3.33 (L) 4.63 - 6.08 M/L [facility] Hemoglobin 10.1 (L) 13.7 - 17.5 GM/DL [facility] Hematocrit 31.9 (L) 40.1 - 51.0 % [facility] MCV 95.8 (H) 79.0 - 92.2 fL [facility] MCH 30.3 25.7 - 32.2 pg [facility] MCHC 31.7 (L) 32.3 - 36.5 GM/DL [facility] RDW 17.4 (H) 11.6 - 14.4 % [facility] Platelets 99 (L) 150 - 450 K/CU MM [facility] MPV 11.0 9.4 - 12.4 fL [facility] nRBC 0 0 - 0 /100 WBC [facility] % Neutros 68 % [facility] % Lymphs 20 % [facility] % Monos 9 % [facility] % Eos 2 % [facility] % Baso 0 % [facility] # Neutros 3.12 1.78 - 5.38 K/L [facility] # Lymphs 0.93 (L) 1.32 - 3.57 K/L [facility] # Monos 0.40 0.30 - 0.82 K/L [facility] # Eos 0.09 0.04 - 0.54 K/L [facility] # Baso 0.01 0.01 - 0.08 K/L [facility] Immature Granulocytes-Relative 0 0 - 1 % [facility] Specimen Blood - Arm, Left Performing Organization Address City/State/Zipcode Phone Number [address] [address] [phone] CENTER Prothrombin time/INR (12/20/2017 7:05 AM CDT) Protime 15.1 (H) 11.7 - 14.7 seconds [facility] INR 1.2 <=5.9 [facility] Specimen Blood - Arm, Left Narrative Performed At [facility] RECOMMENDED COUMADIN/WARFARIN INR THERAPY RANGES STANDARD DOSE: 2.0 - 3.0 Includes: PROPHYLAXIS for venous thrombosis, systemic embolization; TREATMENT for venous thrombosis and/or pulmonary embolus. HIGH RISK: Target INR is 2.5-3.5 for patients with mechanical heart valves. Performing Organization Address [facility] Phone Number [address] [address] [phone] CENTER Basic metabolic panel (12/20/2017 7:05 AM CDT) Sodium 142 136 - 145 meq/L [facility] Potassium 4.1 3.5 - 5.1 meq/L [facility] Chloride 105 98 - 107 meq/L [facility] CO2 28 22 - 29 meq/L [facility] BUN 30 (H) 7 - 21 mg/dL [facility] Creatinine 1.90 (H) 0.57 - 1.25 mg/dL [facility] Glucose 118 (H) 70 - 105 mg/dL [facility] Calcium 9.1 8.4 - 10.2 mg/dL [facility] EGFR 34Comment: ESTIMATED GFR IS mL/min/1.73 sq m [facility] NOT ACCURATE CREATININE [facility] CENTER CLEARANCE IN PREDICTING GLOMERULAR FILTRATION RATE. ESTIMATED GFR IS NOT APPLICABLE FOR DIALYSIS PATIENTS. Specimen Blood - Arm, Left Performing Organization Address [facility]/Zipcode Phone Number [address] [address] CENTER ECG 12 lead (12/20/2017 7:00 AM CDT) Narrative Performed At Ventricular Rate 58 BPM GE MUSE Atrial Rate 232 BPM QRS Duration 98 ms Q-T Interval 426 ms QTC Calculation(Bazett) 418 ms P [place] 45 degrees R [place] -25 degrees T [place] 139 degrees Atrial flutter with variable A-V block with premature ventricular or aberrantly conducted complexes Abnormal ECG No previous ECGs available Confirmed by James BEJARANO MICHAEL ([id number]) on 12/20/2017 7:33:36 AM Procedure Note Interface, External Ris In - 12/20/2017 7:33 AM CDT Ventricular Rate 58 BPM Atrial Rate 232 BPM QRS Duration 98 ms Q-T Interval 426 ms QTC Calculation(Bazett) 418 ms P [place] 45 degrees R [place] -25 degrees T [place] 139 degrees Atrial flutter with variable A-V block with premature ventricular or aberrantly conducted complexes Abnormal ECG No previous ECGs available Confirmed by James BEJARANO MICHAEL ([id number]) on 12/20/2017 7:33:36 AM Performing Organization Address City/State/[facility] Phone Number CHANO MACK after 09/18/2017 Insurance Payer Benefit Plan / Subscriber ID Type Phone Address Group [employer]ET[employer] - AETNA MEDICARE xxxxxxxx [facility] Contracted [phone] [address] MEDICARE MGD HMO POS [address]600 [place] [address] MEDICAID MEDICAID OF xxxxxxxxx Medicaid [place] Advance Directives Patient has advance care planning documents, and code status on file. For more information, please contact:[address] [phone] Code Status Date Activated Date Inactivated Comments Full Code 12/20/2017 6:40 AM 12/20/2017 3:38 PM This code status was determined by: Patient
--- OUTSIDE RECORDS SUMMARY | 2018-09-19 07:46 | XMS REPORT | Continuity of Care Document ---
:1935 Author Organization Interface Problems Problem Status Onset Classification Date Comments Source Date Reported Irritability and anger The [address] [place] [address] Anger reaction The [address] [place] [address] Dementia The [address] [place] [address] FALL ON BLOODTHINNERS Active 08/06/ The 2018 [place] Discharge Diagnosis: [facility] Chronic renal 2017 7 insufficiency Discharge Diagnosis: [facility] Chronic CHF 2017 7 ABNORMAL LABS Active 05/30/ [facility] 2016 AFIB/DIZZY Active 11/02/ [facility] 2017 CP Active 12/27[facility] 2015 UNSTABLE ANGINA Active 05/16/ [address] 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 Heart failure Active Problem [facility] 2 Heart failure Active Problem [facility] Outpatient 5 Imaging [facility] CAD (<span Active Problem [place] ID="[id number]">Conf 7 Medical irmed</span>) [facility] Heart failure Active Problem [facility] Outpatient 7 Imaging [facility] HTN (<span Resolved Problem [place] [id number]">Conf 7 Medical irmed</span>) [facility] [place] (<span Resolved Problem [place] ID="[id number]">Conf 7 Medical irmed</span>) [facility] Presence of automatic Active Problem Cardiovascular cardiac defibrillator 9 Assoc Atherosclerotic heart Active Problem Cardiovascular disease of [place] 9 [facility] coronary artery with other forms [...] Active Problem Cardiovascular myocardial infarction 9 [facility]oc s/p PTCA or Stent Active Problem [facility] Diabetes mellitus Type Active Problem Cardiovascular 2 without 6 [facility]oc complications Coronary Active Diagnosis Cardiovascular atherosclerosis of 5 [facility] [place] vessel Diabetes mellitus type Active Problem Cardiovascular [...] Assoc Hypothyroidism Active Problem [facility] Unspecified dementia The without behavioral [address] [place] [address] disturbance Laceration without The foreign body of left [address] [place] [address] elbow, initial encounter Abrasion of scalp, The initial encounter [address] [place] [address] Abrasion of right The forearm, initial [address] [place] [address] encounter Striking against other The stationary object, [address] [place] [address] initial encounter Essential hypertension The [address] [place] [address] 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 ID="[id number]">Conf 8 Medical irmed</span>) [facility] [place] Heart failure Active Problem [facility] Outpatient 8 Imaging [facility] HTN (<span Resolved Problem [facility] ID="[id number]">Conf 8 Medical irmed</span>) Center,[facility] [place] (<span Resolved Problem [facility] ID="[id number]">Conf 8 Medical irmed</span>) Center,[facility] CHR SYSTOLIC HRT Active [facility] FAILURE ANGINA PECTORIS, Active [facility] UNSPECIFIED Medical Center ENCOUNTER FOR Active [facility] SCREENING FOR Medical Center MALIGNANT NE NON-ST ELEVATION Active [facility] (NSTEMI) MYOCARDIAL INF CHEST PAIN, Active [facility] UNSPECIFIED UNSPECIFIED ATRIAL Active [facility] FIBRILLATION Medications Medication Details Route Status Patient Ordering Order Source Instructions Provider Date Saline Flush 10 mL, Inactive The 0.9% Route: IVP2017 [place] Drug Form: INJ, Dosing Weight 83.182, kg, PRN, PRN Line Flush, Start date: 08/06/17 1:02:00 [place]AG[place], Duration: 30 day, Stop date: 09/05/17 2:01:00 CDTNotes: Same as: BD Posiflush Sterile Saline Flush 10 mL, Inactive 0.9% Route: IVP2016 [facility] Drug Form: INJ, Dosing Weight 83.182, kg, PRN, PRN Line Flush, Start date: 05/30/17 11:48:00 PORTER BAGGAGE, Duration: 1 day, Stop date: 05/31/17 11:47:00 CSTNotes: (Same as: BD Posiflush) Lasix 1 tab(s) orally Active 40 mg orally [place] 01/14/ [facility]ovasc take one tablet 2016 [facility] by mouth two times a day losartan 1 tab(s) orally Active 50 mg orally [place] 01/07/ Cardiovasc once a day 2016 [facility] lisinopril 1 tab(s) orally Active 5 mg orally [place] 01/07/ Cardiovasc once a day 2016 [facility] Corlanor 1 tab(s) orally Active 5 mg orally 2 [place] 12/07/ Cardiovasc times a day 2016 [facility] (with meals) Atorvastatin 1 tab(s) orally Active 40 mg orally [place] 11/15/ [facility]asc Calcium once a day 2016 [facility] apixaban 2.5 mg 2.5 mg=1 Active oral tablet tab, PO, 2016 [facility] Q12H, # 60 tab, 0 Refill(s) 24 HR 25 mg=1 Active Metoprolol tab, PO, 2016 [facility] [...] 50 mg, 1 Inactive tab, Route: 2016 [place] [...] 25 mg, 1 Inactive Metoprolol tab, Route: 2017 [facility] Tartrate 25 [...] 09/25/ Cardiovasc once a day 2016 [place] atorvastatin 10 10 mg=1 Active MG Oral [...] (Same as: Cozaar) Synthroid 200 Inactive microgram, 2016 [place] 2 tab, Route: PO, Drug form: TAB, [...] mg tab n 10 mg Active 2015 tab, 20 mg, 2 tab, Drug form: MISC, Route: PO, Bedtime, 12/29/15 21:00:00 CDT, Duration: 30 day, Stop date: 01/27/16 21:00:00 CDTNotes: (Same as: Crestor) Crestor 20 mg, Inactive Route: PO, 2015 Drug form: TAB, Bedtime, Dosing Weight 83.455, [...] 7.5 TAB, Dosing MG Oral Tablet Weight [Pala 7.5/325] 83.455, kg, Q6H, PRN Pain Score 4-6, Start date: 12/29/15 16:20:00 CDT, Duration: 30 day, Stop date: 01/28/16 16:19:00 CDTNotes: Same as Pala 325-7.5mg Do not exceed 4gm/day of acetaminoph [...] 0.5 mL, Inactive pneumoniae Route: IM, 2015 [facility] serotype 1 Drug Form: capsular INJ, Daily, antigen Start date: diphtheria 12/29/15 [id number] protein 9:00:00 conjugate CDT, vaccine / Duration: 1 Streptococcus doses or pneumoniae times, Stop serotype 14 date: capsular 12/29/15 antigen 9:00:00 diphtheria CDTNotes: [id number] protein Lightly conjugate roll vial vaccine / [...] Longer unit/kg Bolus PRN, 2,200 Active 2015 [facility] [...] Inactive time bolus for 4 mL, 2015 [facility] Route: IV, Drug form: INJ, ONCE, [...] food. Aspirin 81 MG 81 mg=1 Active [place] Enteric Coated tab, PO, 2014 Medical Tablet [...] heparin Tylenol 650 mg, 2 No Longer [place] tab, Route: Active 2014 Medical PO, Drug Center form: TAB, Q6H, Dosing Weight 85, kg, PRN Pain Score 1-3, Start date: 05/21/15 0:22:00, Duration: 30 day, Stop date: 06/20/15 0:21:00Note s: Do not exceed 4 gm/day. (Same as: Tylenol) potassium 40 mEq, 2 No Longer [place] chloride tab, Route: Active 2014 Medical PO, Drug Center form: ERTAB, Q12H, Dosing Weight 85, kg, Start date: 05/20/15 21:00:00, Stop date: 05/21/15 21:00:00Not es: (Same as: K-Dur 20) "Do Not Crush" With food and full glass of water normal saline 1,000 mL, No Longer [place] 0.9% IV 1,000 Rate: 50 Active 2014 Medical mL ml/hr, [place] Infuse over: 20 hr, Route: IV, Dosing Weight 85 kg, Total Volume: 1,000, Start date: 05/20/15 19:26:00, Duration: 30 day, Stop date: 06/19/15 19:25:00 Sodium Chloride 125 mL, 125 Inactive [place] 0.154 MEQ/ML ml/hr, 2014 Medical Injectable Infuse [...] es: (Same as: Mag-Ox 400) Magnesium oxide [id number] elemental magnesium Dose=____mg magnesium oxide (___mg elemental [...] Chloride) Nitroglycerin 0.4 mg, 1 No Longer [place] tab, Route: Active 2014 Medical SL, Drug Center form: TAB, Q5Min, Dosing Weight 85, kg, PRN Chest Pain, Start date: 05/20/15 13:14:00, Duration: 3 doses or times, Stop date: Limited # of timesNotes: (Same as:Nitroqui ck, Nitrostat) "Do Not Crush" Sublingual tablet Plavix 75 mg, 1 No Longer [place] tab, Route: Active 2014 [facility] PO, Drug Center form: TAB, Daily, Dosing Weight 85, kg, Start date: 05/20/15 9:00:00, Duration: 30 day, Stop date: 06/18/15 9:00:00Note s: (Same As: Plavix) Lactulose 667 10 gm, 15 No Longer [place] MG/ML Oral mL, Route: Active 2014 Medical Solution PO, Drug Center Form: SYRP, Dosing Weight 85, kg, QID, PRN as needed for constipatio n, Start date: 05/19/15 23:08:00, Duration: 30 day, Stop date: 06/18/15 23:07:00Not es: (Same as:[place] c) normal saline 1,000 mL, No Longer [place] 0.9% IV 1,000 Rate: 75 Active 2014 Medical mL ml/hr, Center Infuse over: 13.3 hr, Route: IV, Dosing Weight 85 kg, Total Volume: 1,000, Start date: 05/19/15 23:08:00, Duration: 30 day, Stop date: 06/18/15 23:07:00 Plavix 300 mg, 1 Inactive [place] tab, Route: 2014 Medical PO, Drug Center form: TAB, ONCE, Dosing Weight 85, kg, Priority: Within 4 hours, Start date: 05/19/15 12:39:00, Duration: 1 doses or times, Stop date: 05/19/15 12:39:00Not es: ( Same as: Plavix) Miralax 17 gm, 1 No Longer [place] pkt, Route: Active 2014 Medical PO, Drug Center form: PWDR, Daily, Dosing Weight 85, kg, Priority: NOW, Start date: 05/18/15 16:37:00, Duration: 30 day, Stop date: 06/17/15 9:00:00Note s: Dissolve in 8 oz of water or juice. (Same as: Miralax) sennosides, LONG-TERM 8.6 mg, 1 No Longer [place] tab, Route: Active 2014 Medical PO, Drug Center Form: TAB, Dosing Weight 85, kg, Daily, NOW, Start date: 05/18/15 16:37:00, Duration: 30 day, Stop date: 06/17/15 9:00:00Note s: (Same as: Senokot) Docusate 100 mg, Inactive [place] Route: PO, 2014 Medical Drug form: [place] CAP, Daily, Dosing Weight 85, kg, Priority: NOW, Start date: 05/18/15 16:37:00, Duration: 30 day, Stop date: 06/17/15 9:00:00 Lipitor 40 mg, 2 No Longer [place] tab, Route: Active 2014 Medical PO, Drug Center form: TAB, Bedtime, Start date: 05/17/15 21:00:00, Duration: 30 day, Stop date: 06/15/15 21:00:00Not es: (Same As: Lipitor) Crestor 20 mg, Inactive [facility] Route: PO, 2014 Medical Drug form: [place] TAB, Bedtime, Dosing Weight 85, kg, Start date: 05/17/15 21:00:00, Duration: 30 day, Stop date: 06/15/15 21:00:00 Prilosec 20 mg, Inactive [facility] Route: PO, 2014 Medical Drug form: [place] DRC, Bedtime, Dosing Weight 85, kg, Start date: 05/17/15 21:00:00, Duration: 30 day, Stop date: 06/15/15 21:00:00 Docusate Sodium 100 mg, 1 No Longer [place] 100 MG Oral cap, Route: Active 2014 Medical Capsule PO, Drug Center [Colace] form: CAP, BID, Dosing Weight 85, kg, Start date: 05/17/15 17:00:00, Duration: 30 day, Stop date: 06/16/15 9:00:00Note s: (Same as: Colace) (Do Not Crush) Protonix 40 mg, 1 No Longer [place] tab, Route: Active 2014 Medical PO, Drug Center form: ECTAB, Before Dinner, Start date: 05/17/15 16:30:00, Duration: 30 day, Stop date: 06/15/15 16:30:00Not es: Tablet should not be chewed or crushed. (Same as: Protonix) Aspirin 81 mg, 1 No Longer [place] tab, Route: Active 2014 Medical PO, Drug Center form: ECTAB, Daily, Dosing Weight 85, kg, Start date: 05/17/15 9:00:00, Duration: 30 day, Stop date: 06/15/15 9:00:00Note s: Do not crush or chew. (Same As: Ecotrin) Furosemide 40 40 mg, 1 No Longer [place] MG Oral Tablet tab, Route: Active 2014 Medical PO, Drug Center form: TAB, Daily, Dosing Weight 85, kg, Start date: 05/17/15 9:00:00, Duration: 30 day, Stop date: 06/15/15 9:00:00Note s: (Same as: Lasix) May cause GI upset. Give with food or milk. Aldactone 25 mg, 1 No Longer [place] tab, Route: Active 2014 Medical PO, Drug Center form: TAB, BID, Dosing Weight 85, kg, Start date: 05/17/15 9:00:00, Duration: 30 day, Stop date: 06/15/15 17:00:00Not es: (Same As: Aldactone) Ranexa 1,000 mg, 2 No Longer [place] tab, Route: Active 2014 Medical PO, Drug Center form: TAB, BID, Dosing Weight 85, kg, Start date: 05/17/15 9:00:00, Duration: 30 day, Stop date: 06/15/15 17:00:00Not es: Same as [place] "Do Not Crush" Losartan 50 mg, 1 No Longer [place] tab, Route: Active 2014 Medical PO, Drug Center form: TAB, Daily, Dosing Weight 85, kg, Start date: 05/17/15 9:00:00, Duration: 30 day, Stop date: 06/15/15 9:00:00Note s: (Same as: Cozaar) Coreg 6.25 mg, 1 No Longer [place] tab, Route: Active 2014 Medical PO, Drug Center form: TAB, BID, Dosing Weight 85, kg, Start date: 05/17/15 9:00:00, Duration: 30 day, Stop date: 06/15/15 17:00:00Not es: Give with food. (Same As: Coreg) tamsulosin 0.4 mg, 1 No Longer [place] cap, Route: Active 2014 Medical PO, Drug Center form: CAP, After Breakfast, Dosing Weight 85, kg, Start date: 05/17/15 8:30:00, Duration: 30 day, Stop date: 06/15/15 8:30:00Note s: (Same As: Flomax) "Do Not Crush" Synthroid 200 No Longer [place] microgram, Active 2014 Medical 1 tab, Center Route: PO, Drug form: TAB, Q630AM, Dosing Weight 85, kg, Start date: 05/17/15 6:30:00, Duration: 30 day, Stop date: 06/15/15 6:30:00Note s: Take 1 hour before or 2 hours after meal; Enteral feeds may interefere with the absorption of this medication. (Same as: Levothroid) heparin sodium, Route: IVP, No Longer [place] porcine 1000 PRN, 4,400 Active 2014 Medical UNT/ML unit, 4.4 Center Injectable mL, Drug Solution form: INJ, PRN, Heparin Protocol, Start date: 05/17/15 1:38:00 Stop date: 06/16/15 1:37:00, 30 day heparin 500 mL, No Longer [place] additive 25,000 Rate: 17.68 Active 2014 Medical [...] No Longer tablet tab, Route: Active 2014 PO, Drug form: TAB, Daily, Start date: [...] 2 No Longer tab, Route: Active 2014 PO, Drug form: TAB, BID, Dosing Weight 84.659, kg, Start date: 05/12/15 22:00:00, Duration: 30 day, Stop date: 06/11/15 21:00:00Not es: Same as [place] "Do Not Crush" Coreg 6.25 mg, 2 No Longer tab, Route: Active 2014 PO, Drug form: TAB, BID, Dosing Weight 84.659, kg, Start date: 05/12/15 21:00:00, Duration: 30 day, Stop date: 06/11/15 9:00:00Note s: Give with food. (Same As: Coreg) Lipitor 20 mg, 2 No Longer tab, Route: Active 2014 PO, Drug form: TAB, Bedtime, Start date: 05/12/15 21:00:00, Duration: 30 day, Stop date: 06/10/15 21:00:00Not es: (Same As: Lipitor) Crestor 10 mg, Inactive Route: PO, 2014 [facility] Bedtime, Dosing Weight 84.659, kg, Start date: 05/12/15 21:00:00, Duration: 30 day, Stop date: 06/10/15 21:00:00 Insulin, 6 unit, No Longer Aspart, Human 0.06 mL, Active 2014 [facility] Route: SUB-Q, Drug form: SOLN, Sliding [...] Active 2014 [facility] , Drug form: TAB, Q5Min, Dosing Weight 83.2, kg, PRN Chest Pain, Start date: 05/12/15 20:37:00, Duration: 3 doses or times, Stop date: Limited # of timesNotes: (Same as:Nitroqui ck, Nitrostat) "Do Not Crush" Sublingual tablet Nitroglycerin 0.4 mg, On [place] Transdermal 2014 , PRN, 0 Refill(s) Rosuvastatin 20 mg=1 On [place] calcium 20 MG tab, PO, 2014 [facility] Oral Tablet Bedtime, # [Crestor] 30 tab, 0 Refill(s) Levothyroxine 200 On Hold Sodium 0.2 MG microgram=1 2014 [facility] Oral Tablet tab, PO, [Synthroid] Daily, # 30 tab, 0 Refill(s) carvedilol 6.25 6.25 mg=1 On Hold MG Oral Tablet tab, PO, 2014 [Coreg] BID, # 60 tab, 0 Refill(s) tamsulosin 0.4 0.4 mg=1 On [place] mg oral capsule cap, PO, 2014, # 30 cap, 0 Refill(s) Spironolactone 25 [...] mg=1 On [place] hydrochloride tab, PO, 2014 [place] 500 MG Extended BID, with Release Tablet evening [Glumetza] meal, # 90 tab, 0 Refill(s) Sodium Chloride 1,000 mL, No Longer 0.154 MEQ/ML Rate: 75 Active 2014 [place] Injectable ml/hr, Solution Infuse over: 13.3 hr, [...] Longer porcine 1000 PRN, 4,300 Active 2014 [place] UNT/ML unit, 4.3 Injectable mL, Drug Solution form: INJ, PRN, Heparin Protocol, Start date: 05/12/15 16:57:00 Stop date: 06/11/15 16:56:00, 30 day heparin 500 mL, No Longer additive 25,000 Rate: 17.31 Active 2014 [place] unit [12 ml/hr, unit/kg/hr] + Infuse Premix [...] [place] 06/26/ Cardiovasc once a day 2014 [facility] nitroglycerin 1 tab(s) sublingua Active 0.4 mg [place] 11/26/ [facility] Crestor 1 tab(s) orally Active 10 mg orally [place] 01/27/ Cardiovasc once a day ([facility] Ranexa 1,000 mg, 2 PO No Longer [place] tab, Route: Active 2011 [facility] PO, Drug form: TAB, Q12H, Start date: 06/28/11 21:00:00, Duration: 30 day, Stop date: 07/28/11 9:00:00 Lipitor 10 mg, 1 PO No Longer [place] tab, Route: Active 2011 [facility] PO, Drug form: TAB, Bedtime, Start date: 06/28/11 21:00:00, Duration: 30 day, Stop date: 07/27/11 21:00:00 lisinopril 10 mg, 1 PO No Longer [facility] tab, Route: Active 2011 [facility] PO, Drug form: TAB, Daily, Start date: 06/28/11 17:00:00, Duration: 30 day, Stop date: 07/28/11 9:00:00 glimepiride 2 mg, 1 PO No Longer [facility] tab, Route: Active 2011 [facility] PO, Drug form: TAB, BID, Start date: 06/28/11 17:00:00, Duration: 30 day, Stop date: 07/28/11 9:00:00 Lasix 20 mg, 1 PO No Longer [facility] tab, Route: Active 2011 [facility] PO, Drug form: TAB, BID, Start date: 06/28/11 17:00:00, Duration: 30 day, Stop date: 07/28/11 9:00:00 spironolactone 25 mg, 1 PO No Longer [facility] tab, Route: Active 2011 [facility] PO, Drug form: TAB, Daily, Start date: 06/28/11 17:00:00, Duration: 30 day, Stop date: 07/28/11 9:00:00 Flomax 0.4 mg, 1 PO No Longer [facility] cap, Route: Active 2011 [facility] PO, Drug form: CAP, Daily, Start date: 06/28/11 17:00:00, Duration: 30 day, Stop date: 07/28/11 9:00:00 aspirin 81 mg 81 mg, 1 PO No Longer [facility] tablet, enteric tab, Route: Active 2011 [facility] coated PO, Drug form: ECTAB, Daily, Start date: 06/28/11 17:00:00, Duration: 30 day, Stop date: 07/28/11 9:00:00 acetaminophen-t 1 tab, PO No Longer [facility] ramadol 325 Route: PO, Active 2011 [facility] mg-37.5 mg oral Drug Form: tablet TAB, Daily, Start date: 06/28/11 17:00:00, Duration: 30 day, Stop date: 07/28/11 9:00:00 cefazolin 2 gm, IVPB No Longer [facility] Route: Active 2011 [facility] IVPB, Q8H, Start date: 06/28/11 16:00:00, Duration: 2 doses or times, Stop date: 06/29/11 0:00:00 Sodium Chloride 10 mL, IVP No Longer [facility] 0.9% IV Route: IVP, Active 2011 [facility] Start date: 06/28/11 16:00:00, Duration: 30 day, Stop date: 07/28/11 8:00:00 Coreg 25 mg, 1 PO No Longer [facility] tab, Route: Active 2011 [facility] PO, Drug form: TAB, Q12H, Start date: 06/28/11 15:00:00, Duration: 30 day, Stop date: 07/28/11 9:00:00 nitroglycerin 0.4 mg, 1 SL No Longer [facility] 0.4 mg tab, Route: Active 2011 [facility] sublingual SL, Drug tablet form: TAB, PRN, PRN Chest Pain, Start date: 06/28/11 13:33:00, Duration: 30 day, Stop date: 07/28/11 13:32:00 acetaminophen 500 mg, 1 PO No Longer [facility] tab, Route: Active 2011 [facility] PO, Drug form: TAB, Q4H, PRN Pain, Start date: 06/28/11 11:28:00, Duration: 30 day, Stop date: 07/28/11 11:27:00 acetaminophen-h 2 tab, PO No Longer [facility] ydrocodone 325 Route: PO, Active 2011 [facility] mg-5 mg oral Drug Form: tablet TAB, Q4H, PRN Pain, Start date: 06/28/11 11:28:00, Duration: 30 day, Stop date: 07/28/11 11:27:00 morphine 2 mg, 1 mL, IV No Longer [facility] Sulfate Route: IV, Active 2011 [facility] Drug form: INJ, Q2H, PRN Severe Pain, Start date: 06/28/11 11:28:00, Duration: 30 day, Stop date: 07/28/11 11:27:00 Xanax 0.25 mg, 1 PO No Longer [facility] tab, Route: Active 2011 [facility] PO, Drug form: TAB, Q8H, PRN Anxiety, Start date: 06/28/11 11:28:00, Duration: 30 day, Stop date: 07/28/11 11:27:00 Zofran 4 mg, 2 mL, IVP No Longer [facility] Route: IVP, Active 2011 [facility] Drug form: INJ, Q8H, PRN Nausea & Vomiting, Start date: 06/28/11 11:28:00, Duration: 30 day, Stop date: 07/28/11 11:27:00 Restoril 15 mg, 1 PO No Longer [facility] cap, Route: Active 2011 [facility] PO, Drug form: CAP, Bedtime, PRN Insomnia, Start date: 06/28/11 11:28:00, Duration: 30 day, Stop date: 07/28/11 11:27:00 Sodium Chloride 10 mL, IVP No Longer [facility] 0.9% IV Route: IVP, Active 2011 [facility] PRN, Line Flush, Start date: 06/28/11 11:26:00, Duration: 30 day, Stop date: 07/28/11 11:25:00 multivitamin 1 tab, PO No Longer [facility] Route: PO, Active 2011 [facility] Drug Form: TAB, [id number], Start date: 06/28/11 6:00:00, Duration: 4 doses or times, Stop date: 06/29/11 18:00:00 cefazolin 1 gm, IVPB No Longer [facility] Route: Active 2011 [facility] IVPB, PRE OP, Start date: 06/28/11 5:00:00, Duration: 12 hr, Stop date: 06/28/11 16:59:00 Sodium Chloride 1,000 mL, IV No Longer [facility] 0.45% IV 1,000 Rate: 75 Active 2011 [facility] mL ml/hr, Infuse over: 13.3 hr, Route: IV, Total Volume: 1,000, Start date: 06/28/11 5:00:00, Duration: 24 hr, Stop date: 06/29/11 4:59:00 lidocaine-prilo 1 appl, TOP No Longer [facility] freddie topical Route: TOP, Active 2011 [facility] ONCALL, Drug form: CRM, Start date: 06/28/11 5:00:00, Duration: 1 doses or times Valium 5 mg, 1 PO No Longer [place] tab, Route: Active 2011 [facility] PO, Drug form: TAB, ONCALL, Start date: 06/28/11 5:00:00, Duration: 1 doses or times Benadryl 50 mg, 2 PO No Longer [place] tab, Route: Active 2011 [facility] [...] [facility]asc 2 times a day [facility] clopidogrel 1 tab(s) orally Active 75 mg orally [place] [facility] once a day [facility] furosemide 1 tab(s) orally Active 40 mg orally [place] [facility]ov[facility] bid [facility] Synthroid 1 tab(s) orally Active 200 mcg (0.2 [place] [facility] mg) orally once [facility] a day nitroglycerin 1 tab(s) sublingua Active 0.4 mg [place] [facility] lly sublingually [facility] every 5 minutes up to 3 doses as needed for chest pain spironolactone 1 tab(s) orally Active 25 mg orally [place] [facility] once a day [facility] ivabradine 1 tab(s) orally Active 5 mg orally 2 [place] [facility] times a day [facility] (with meals) omeprazole 1 cap(s) orally Active 20 mg orally [place] [facility] once a day [facility] Toprol XL 1/2ab(s) orally Active 12.5 mg orally [place] [facility] once a day [facility] glimepiride 1 tab(s) orally Active 1 mg orally bid [place] [facility] isosorbide 1 tab(s) orally Active 10 mg orally 2 [place] [facility] dinitrate times a day [facility] tamsulosin 1 cap(s) orally Active 0.4 mg orally [place] [facility] once a day [facility] ASA 1 tab(s) NA Active 81mg once a day [facility] baclofen 1 tab(s) orally Active 10 mg orally [facility] losartan 1 tab(s) orally Active [...] [facility] dinitrate every 8 hrs [facility] hydralazine 1 tab(s) orally Active 25 mg orally 4 [facility] times [facility] apixaban 1 [...] cap(s) orally Active 50 mg orally 2 [facility] ASA 1 tab(s) NA Active 81mg once a day [facility] gemfibrozil 1 tab(s) orally Active 600 mg orally 2 [facility] Coreg 1/2 tab orally Active 12.5 mg orally [facility] 2 times a day [facility] Allergies, Adverse Reactions, Alerts Substance Category Reaction Severity Reaction Status Date Comments Source type Reported N.K.D.A. Adverse Info Not Adverse Active [facility] Reaction Available Reaction 7 [facility] Immunizations Immunization Date Site Status Last Comments Source Given Updated diphtheria/pertu Right completed [place] [facility] s[facility], 8 deltoid [place] acel/tetanus adult pneumococcal Right completed Jose 13-valent 6 deltoid [facility] vaccine [place] Results Order Name Results Value Reference Date Interpretation Comments Source Range URINE AND UA <=1.0 0.1 - 1.0 08/06 The STOOL Urobilinogen mg/dL /2017 [place] URINE AND UA RBC 1 /HPF 0 - 2 08/06 The STOOL /2017 [place] URINE AND UA Mucus Few /LPF None Seen 08/06 The [facility]OL /LPF /2017 [place] URINE AND UA Color Yellow Yellow 08/06 The STOOL /2017 [place] *NA* (08/06/17 2:20 AM) URINE AND UA Turbidity Clear Clear 08/06 The STOOL /2017 [place] (08/06/17 2:20 AM) URINE AND UA Spec Grav 1.006 <=1.030 08/06 The STOOL [place] URINE AND UA Sq Epi Occasional Few /LPF 08/06 The [facility] /LPF /2017 [place] URINE AND UA WBC 1 /HPF 0 - 5 08/06 The STOOL [place] URINE AND UA Nitrite Negative Negative 08/06 The STOOL [place] (08/06/17 2:20 AM) URINE AND UA Leuk Est Negative Negative 08/06 The STOOL [place] (08/06/17 2:20 AM) URINE AND UA pH 5.0 5.0 - 8.0 08/06 The STOOL [place] URINE AND UA Ketones Negative Negative 08/06 The [facility] mg/dL mg/dL [place] URINE AND UA Bili Negative Negative 08/06 The [place] *NA* (08/06/17 2:20 AM) URINE AND UA Protein Negative Negative 08/06 The [facility] mg/dL mg/dL [place] URINE AND UA Glucose Negative Negative 08/06 The [facility] mg/dL mg/dL [place] URINE AND UA Blood Negative Negative 08/06 The STOOL [place] (08/06/17 2:20 AM) CHEM PANEL A/G Ratio 1.1 0.7 - 1.6 08/06 The [place] CHEM PANEL AGAP 13.0 meq/L 10.0 - 08/06 The 20.0 [place] CHEM PANEL Globulin 3.2 g/dL 2.7 - 4.2 08/06 The [place] CHEM PANEL B/C Ratio 21 6 - 25 08/06 The [place] CHEM PANEL CO2 25 meq/L 24 - 32 08/06 The [place] CHEM PANEL Chloride Lvl 102 meq/L 95 - 109 08/06 The [place] CHEM PANEL Potassium 4.0 meq/L 3.5 - 5.1 08/06 The Lvl [place] CHEM PANEL Sodium Lvl 136 meq/L 135 - 145 08/06 The [place] CHEM PANEL BUN 38 mg/dL 7 - 22 08/06 The [place] CHEM PANEL Glucose Lvl 246 mg/dL 70 - 99 08/06 The [place] CHEM PANEL Creatinine 1.81 mg/dL 0.50 - 08/06 The Lvl 1.40 /2017 [place] CHEM PANEL Alk Phos 134 unit/L 39 - 136 08/06 [place] CHEM PANEL Bili Total 0.8 mg/dL 0.2 - 1.3 08/06 The [place] CHEM PANEL ALT 29 unit/L 0 - 65 08/06 The [place] CHEM PANEL Albumin Lvl 3.5 g/dL 3.5 - 5.0 08/06 [place] CHEM PANEL AST 28 unit/L 0 - 37 08/06 The [place] CHEM PANEL Total 6.7 g/dL 6.4 - 8.4 08/06 The Protein [place] CHEM PANEL Calcium Lvl 8.5 mg/dL 8.5 - 10.5 08/06 The [place] CHEM PANEL eGFR 34 08/06 Result Comment: [...] is not recommended in the following populations: [address] Individuals with unstable creatinine concentrations, including [...] MCH 23.8 pg 27.0 - 08/06 The 31. [place] HEMATOLOGY RDW 18.4 % 11.5 - 08/06 The 14. [place] HEMATOLOGY MPV 9.3 fL 7.4 - 10.4 08/06 [place] HEMATOLOGY Platelet 135 K/CMM 133 - 450 08/06 [place] HEMATOLOG[facility] MCHC 31.9 g/dL 32.0 - 08/06 The 36.0 [place] HEMATOLOGY Hct 30.4 % 42.0 - 08/06 The 54.0 [place] HEMATOLOGY MCV 74.5 fL 80.0 - 08/06 MH The 94.0 [place] HEMATOLOGY RBC 4.08 M/CMM 4.70 - 08/06 The 6.10 [place] HEMATOLOGY Hgb 9.7 g/dL 14.0 - 08/06 MH The 18.0 [place] HEMATOLOGY WBC 4.8 K/CMM 3.7 - 10.4 08/06 The [place] HEMATOLOGY PTT 30.0 s 22.9 - 08/06 The 35.8 [place] HEMATOLOGY PT 14.6 s 12.0 - 08/06 The 14.7 [place] HEMATOLOGY INR 1.14 0.85 - 08/06 The 1.17 [place] HEMATOLOGY Monocytes # 0.4 K/CMM 0.0 - 0.8 08/06 The [place] HEMATOLOGY Eosinophils 0.2 K/CMM 0.0 - 0.5 08/06 The # [place] HEMATOLOGY Microcyte 1+ None Seen 08/06 [place] *ABN* (08/06/17 1:09 AM) HEMATOLOGY Basophils 0.5 % 0.0 - 1.0 08/06 The [place] HEMATOLOGY Segs-Bands # 3.4 K/CMM 1.5 - 8.1 08/06 The [place] HEMATOLOGY Lymphocytes 0.8 K/CMM 1.0 - 5.5 08/06 The # [place] HEMATOLOGY Lymphocytes 15.8 % 20.0 - 08/06 The 40.0 [place] HEMATOLOGY Monocytes 8.5 % 2.0 - 12.0 08/06 The [place] HEMATOLOGY Segs 70.6 % 45.0 - 08/06 The 75.0 [place] HEMATOLOGY Eosinophils 4.6 % 0.0 - 4.0 08/06 The [place] Brain wo Brain wo CT HEAD WITHOUT CONTRAST 08/06 - The contrast contrast [facility] CT Clinical Indication: - head trauma, plavix. [...] and mild generalized cerebral volume loss. SL: UKUDRA- CARDIAC BNP 1358 pg/mL <=100 05/30 [facility] pg/mL /2016 [facility] CARDIAC Troponin-I 0.02 ng/mL 0.00 - 05/30 [facility] 0.40 /2016 [facility] ELECTROLYT AGAP 10.8 meq/L 10.0 - 05/30 ES 20.0 [facility] ELECTROLYT A/G Ratio 1.4 0.7 - 1.6 05/30 ES [facility] ELECTROLYT B/C Ratio 15 6 - 25 05/30 ES /2016 [facility] ELECTROLYT Globulin 2.7 g/dL 2.7 - 4.2 05/30 ES /2016 [facility] ELECTROLYT eGFR 29 05/30 Result Comment: [...] meq/L 3.5 - 5.1 05/30 ES Lvl /2016 [place] ELECTROLYT Chloride Lvl 106 meq/L 95 [...] BUN 31 mg/dL 7 - 22 05/30 [facility] HEMATOLOGY PT 14.7 s 12.0 - 05/30 14.7 [facility] HEMATOLOGY INR 1.15 0.85 - 05/30 1.17 [facility] HEMATOLOGY RDW 16.9 % 11.5 - 05/30 14. [facility] HEMATOLOGY WBC 3.6 K/CMM 3.7 - 10.4 05/30 [facility] HEMATOLOGY RBC 3.64 M/CMM 4.70 - 05/30 6.10 [facility] HEMATOLOGY MCH 26.1 pg 27.0 - 05/30 31.0 [facility] HEMATOLOGY MCV 81.6 fL 80.0 - 05/30 94.0 [facility] HEMATOLOGY Hct 29.7 % 42.0 - 05/30 54.0 [facility] HEMATOLOGY MCHC 31.9 g/dL 32.0 - 05/30 MH 36.0 /2017 [facility] HEMATOLOGY Hgb 9.5 g/dL 14.0 - 05/30 MH 18.0 /2017 [facility] HEMATOLOGY Platelet 98 K/CMM 133 - 450 05/30 [facility] HEMATOLOGY MPV 9.3 fL 7.4 - 10.4 05/30 [facility] HEMATOLOGY Eosinophils 0.1 K/CMM 0.0 - 0.5 05/30 MH # /2017 [facility] HEMATOLOGY Eosinophils 1.8 % 0.0 - 4.0 05/30 [facility] HEMATOLOGY Monocytes 9.8 % 2.0 - 12.0 05/30 [facility] HEMATOLOGY Monocytes # 0.4 K/CMM 0.0 - 0.8 05/30 [facility] HEMATOLOGY Segs-Bands # 2.3 K/CMM 1.5 - 8.1 05/30 [facility] HEMATOLOGY Basophils 0.4 % 0.0 - 1.0 05/30 [facility] HEMATOLOGY Lymphocytes 24.4 % 20.0 - 05/30 40.0 [facility] HEMATOLOGY Lymphocytes 0.9 K/CMM 1.0 - 5.5 05/30 # /2016 [facility] HEMATOLOGY Segs 63.6 % 45.0 - 05/30 MH 75.0 /2016 [facility] Chest Chest 1view Clinical Indication: - chf; 05/30 - 1view DX DX /2016 - [facility] [...] placement. 2. No focal infiltrates . SL: [id number] CHEM PANEL eGFR 41 11/03 Result Comment: [...] Lvl 8.5 mg/dL 8.5 - 10.5 11/03 [facility] CHEM PANEL AGAP 10.9 meq/L 10.0 - 11/03 20.0 [facility] CHEM PANEL Chloride Lvl 105 meq/L 95 - 109 11/03 [place] CHEM PANEL CO2 27 meq/L 24 - 32 11/03 [place] CHEM PANEL Sodium Lvl 139 meq/L 135 - 145 11/03 [place] CHEM PANEL Potassium 3.9 meq/L 3.5 - 5.1 11/03 Lvl /2016 [facility] CHEM PANEL BUN 20 mg/dL 7 - 22 11/03 [place] CHEM PANEL Glucose Lvl 165 mg/dL 70 - 99 11/03 [facility] CHEM PANEL Creatinine 1.54 mg/dL 0.50 - 11/03 Lvl 1.40 /2016 [facility] CARDIAC BNP 720 pg/mL <=100 11/03 [place] pg/mL /2016 [facility] CHEM PANEL Phosphorus 4.1 mg/dL 2.5 - 4.5 11/03 [facility] CHEM PANEL Magnesium 1.9 mg/dL 1.8 - 2.4 11/03 Lvl /2016 [facility] LIPIDS VLDL 26 11/03 [facility] LIPIDS Trig 129 mg/dL <=149 11/03 mg/dL [facility] LIPIDS HDL 32 mg/dL >=61 mg/dL 11/03 [facility] LIPIDS Chol 97 mg/dL <=199 11/03 mg/dL [facility] LIPIDS LDL 39 mg/dL <=99 mg/dL 11/03 (Calculated) [facility] LIPIDS CHD Risk 3.03 4.00 - 11/03 7.30 /2017 [facility] CARDIAC Troponin-I 0.04 ng/mL 0.00 - 11/03 EN[facility]YM[facility] 0.40 [facility] CARDIAC Total CK 68 unit/L 11/03 MH ENZYMES /2016 [facility] CARDIAC Total CK 65 unit/L 11/03 EN[facility]YM[facility] /2016 [facility] CARDIAC Troponin-I 0.04 ng/mL 0.00 - 11/03 [facility] 0.40 [facility] CARDIAC BNP 626 pg/mL <=100 11/02 [facility] pg/mL /2016 [facility] CARDIAC Troponin-I 0.04 ng/mL 0.00 - 11/02 [facility] 0.40 [facility] CARDIAC Total CK 64 unit/L 11/02 MH ENZYMES /2016 [facility] CARDIAC Total CK 64 unit/L 11/02 ENZYMES [facility] CARDIAC Troponin-I 0.05 ng/mL 0. - 11/02 EN[facility] 0.40 [facility] CHEM PANEL Magnesium 1.9 mg/dL 1.8 - 2.4 11/02 Lvl [facility] CHEM PANEL B/C Ratio 13 6 - 25 11/02 [facility] CHEM PANEL AGAP 13.6 meq/L 10.0 - 11/02 20.0 [facility] CHEM PANEL Globulin 2.9 g/dL 2.7 - 4.2 11/02 [facility] CHEM PANEL A/G Ratio 1.2 0.7 - 1.6 11/02 [facility] CHEM PANEL eGFR 39 11/02 Result [...] 1.60 mg/dL 0.50 - 11/02 Lvl 1.40 /2016 [place] CHEM PANEL Potassium 3.6 meq/L 3.5 - 5.1 11/02 Lvl /2016 [place] CHEM PANEL BUN 21 mg/dL 7 - 22 11/02 [place] CHEM PANEL Glucose Lvl 320 mg/dL 70 - 99 11/02 [place] HEMATOLOGY Lymphocytes 0.9 K/CMM 1.0 - 5.5 11/02 # /2016 [place] HEMATOLOGY Segs-Bands # 2.4 K/CMM 1.5 - 8.1 11/02 [place] HEMATOLOGY Eosinophils 0.1 K/CMM 0.0 - 0.5 11/02 # /2016 [place] HEMATOLOGY Monocytes # 0.3 K/CMM 0.0 - 0.8 11/02 [place] HEMATOLOGY Segs 66.4 % 45.0 - 11/02 75.0 [place] HEMATOLOGY Lymphocytes 24.2 % 20.0 - 11/02 40.0 [place] HEMATOLOGY Monocytes 7.1 % 2.0 - 12.0 11/02 [place] HEMATOLOGY Eosinophils 1.9 % 0.0 - 4.0 11/02 [place] HEMATOLOGY Basophils 0.4 % 0.0 - 1.0 11/02 [place] HEMATOLOGY Platelet 97 K/CMM 133 - 450 11/02 [place] HEMATOLOGY MPV 9.8 fL 7.4 - 10.4 [...] 30.6 pg 27.0 - 11/02 MH 31.0 [facility] Hgb A1C 7.4 % <=5.6 % 11/02 [facility] CHEM PANEL [...] 4.1 meq/L 3.5 - 5.1 12/29 Lvl [facility] CHEM PANEL Chloride Lvl 108 meq/L 95 - 109 12/29 [facility] CHEM PANEL CO2 30 meq/L 24 - 32 12/29 [facility] CHEM PANEL Calcium Lvl 8.6 mg/dL 8.5 - 10.5 12/29 [facility] CHEM PANEL BUN 19 mg/dL 7 - 22 12/29 /2015 [facility] CHEM PANEL Creatinine 1.28 mg/dL 0.50 - 12/29 Lvl 1.40 /2015 [place] CHEM PANEL Sodium Lvl 145 meq/L 135 - 145 12/29 /2015 [facility] CHEM PANEL AGAP 11.1 meq/L 10.0 - 12/29 MH 20.0 /2015 [place] CHEM PANEL Magnesium 2.1 mg/dL 1.8 - 2.4 12/29 Lvl /2015 [facility] HEMATOLOGY MCV 93.2 fL 80.0 - 12/29 MH 94.0 /2015 [facility] HEMATOLOGY Platelet 106 K/CMM 133 - 450 12/29 [facility] HEMATOLOGY MPV 9.3 fL 7.4 - 10.4 12/29 [facility] HEMATOLOGY MCH 31.2 pg 27.0 - 12/29 MH 31.0 /2015 [facility] HEMATOLOGY RDW 14.7 % 11.5 - 12/29 MH 14.5 /2015 [facility] HEMATOLOGY MCHC 33.5 g/dL 32.0 - 12/29 MH 36.0 /2015 [facility] HEMATOLOGY WBC 4.1 K/CMM 3.7 - 10.4 12/29 /2015 [facility] HEMATOLOGY RBC 3.63 M/CMM 4.70 - 12/29 MH 6.10 /2015 [facility] HEMATOLOGY Hct 33.8 % 42.0 - 12/29 MH 54.0 /2015 [facility] HEMATOLOGY Hgb 11.3 g/dL 14.0 - 12/29 MH 18.0 /2015 [facility] HEMATOLOGY Eosinophils 0.2 K/CMM 0.0 - 0.5 12/29 MH # /2015 [facility] HEMATOLOGY Segs-Bands # 2.4 K/CMM 1.5 - 8.1 12/29 [place] HEMATOLOGY Monocytes # 0.4 K/CMM 0.0 - 0.8 12/29 [facility] HEMATOLOGY Lymphocytes 1.1 K/CMM 1.0 - 5.5 12/29 MH # /2015 [place] HEMATOLOGY Basophils 0.4 % 0.0 - 1.0 12/29 [place] HEMATOLOGY Eosinophils 4.2 % 0.0 - 4.0 12/29 [place] HEMATOLOGY Segs 58.6 % 45.0 - 12/29 MH 75.0 /2015 [place] HEMATOLOGY Monocytes 10.3 % 2.0 - 12.0 12/29 [facility] HEMATOLOGY Lymphocytes 26.5 % 20.0 - 12/29 MH 40.0 [facility] HEMATOLOGY POC 128 s 12/28 [facility] Clotting Time HEMATOLOGY PTT 75.4 s 22.9 - 12/28 35.8 [place] CHEM PANEL Magnesium 2.0 mg/dL 1.8 - 2.4 12/28 Lvl [facility] CHEM PANEL Glucose Lvl 116 mg/dL 70 - 99 12/28 [place] CHEM PANEL Potassium 3.8 meq/L 3.5 - 5.1 12/28 Lvl [facility] CHEM PANEL AGAP 13.8 meq/L 10.0 - 12/28 MH 20.0 [place] CHEM PANEL CO2 27 meq/L 24 - 32 12/28 [facility] CHEM PANEL Sodium Lvl 143 meq/L 135 - 145 12/28 [facility] CHEM PANEL Chloride Lvl 106 meq/L 95 - 109 12/28 [facility] CHEM PANEL Creatinine 1.28 mg/dL 0.50 - 12/28 Lvl 1.40 [facility] CHEM PANEL Calcium Lvl 8.8 mg/dL 8.5 - 10.5 12/28 [facility] CHEM PANEL BUN 22 mg/dL [...] not recommended in the following populations: [address] Individuals with unstable creatinine concentrations, including [...] Platelet 105 K/CMM 133 - 450 12/28 [facility] HEMATOLOGY RDW 14.6 % 11.5 - 12/28 14. [facility] HEMATOLOGY MCH 30.7 pg 27.0 - 12/28 31.0 /2015 [facility] HEMATOLOGY MCHC 33.2 g/dL 32.0 - 12/28 MH 36.0 /2015 [facility] HEMATOLOGY MPV 9.5 fL 7.4 - 10.4 12/28 /2015 [facility] HEMATOLOGY Hct 33.6 % 42.0 - 12/28 54.0 /2015 [facility] HEMATOLOGY Hgb 11.2 g/dL 14.0 - 12/28 MH 18.0 /2015 [facility] HEMATOLOGY RBC 3.63 M/CMM 4.70 - 12/28 MH 6.10 [facility] HEMATOLOGY MCV 92.5 fL 80.0 - 12/28 MH 94.0 /2015 [facility] HEMATOLOGY WBC 4.3 K/CMM 3.7 - 10.4 12/28 [facility] HEMATOLOGY PTT 47.5 s 22.9 - 12/28 35. [facility] LIPIDS VLDL 45 12/28 [facility] LIPIDS LDL 69 mg/dL <=99 mg/dL 12/28 (Calculated) [facility] LIPIDS HDL 31 mg/dL >=61 mg/dL 12/28 [facility] LIPIDS CHD Risk 4.68 4.00 - 12/28 7.30 [facility] LIPIDS Trig 225 mg/dL <=149 12/28 mg/dL /2015 [facility] LIPIDS Chol 145 mg/dL <=199 12/28 mg/dL /2015 [facility] CARDIAC Troponin-I 0.47 ng/mL 0.00 - 12/28 [facility] 0.40 /2015 [facility] CARDIAC Total CK 157 unit/L 12 - 191 12/28 [facility] /2015 [facility] CARDIAC CK MB Index 3.8 0.0 - 2.5 12/28 EN[facility] /2016 [facility] CARDIAC CK MB 5.9 ng/mL 0.5 - 3.6 12/28 EN[facility]YMES /2016 [facility] HEMATOLOGY PTT 63.8 s 22.9 - 12/28 35.8 /2015 [facility] CARDIAC Troponin-I 0.71 ng/mL 0.00 - 12/28 Result ENZYMES 0.40 Comment: [facility] Critical Result(s) called to Ghazal MichaelRN at 12/28/2015 20:26 by NIKOLE. Read back OK. CARDIAC Total CK 169 unit/L 12 - 191 12/28 EN[facility]YMES /2015 [facility] CARDIAC CK MB Index 3.8 0.0 - 2.5 12/28 [facility] /2016 [facility] CARDIAC CK MB 6.5 ng/mL 0.5 - 3.6 12/28 [facility] /2015 [facility] CARDIAC CK MB Index 4.9 0.0 - 2.5 12/27 [facility] /2015 [facility] CARDIAC CK MB 8.8 ng/mL 0.5 - 3.6 12/27 ENZYMES [facility] CARDIAC Troponin-I 0.69 ng/mL 0.00 - 12/27 Result ENZYMES 0.40 /2016 Comment: [facility] Critical Result(s) called to Gris Caba RN at 12/28/2015 16:14 by LS. Read back OK. CARDIAC Total CK 180 unit/L 12 - 191 12/27 ENZYMES [facility] CARDIAC BNP 402 pg/mL <=100 12/27 [facility] pg/mL /2015 [facility] CHEM PANEL Lipase Lvl 73 unit/L 73 - 393 12/27 [facility] CHEM PANEL A/G Ratio 1.1 0.7 - 1.6 12/27 [facility] CHEM PANEL Globulin 3.3 g/dL 2.0 - 4.0 12/27 [facility] CHEM PANEL B/C Ratio 14 6 - 25 12/27 [facility] CHEM PANEL AGAP 9.6 meq/L 10.0 - 12/27 MH 20.0 [facility] CHEM PANEL eGFR 43 12/27 Result [...] # 0.3 K/CMM 0.0 - 0.8 12/27 [facility] HEMATOLOGY Segs 66.2 % 45.0 - 12/27 MH 75.0 [facility] HEMATOLOGY Lymphocytes 0.9 K/CMM 1.0 - 5.5 12/27 MH # /2015 [facility] HEMATOLOGY Basophils 0.6 % 0.0 - 1.0 12/27 [facility] HEMATOLOGY Segs-Bands # 2.8 K/CMM 1.5 - 8.1 12/27 [facility] HEMATOLOGY Monocytes 7.9 % 2.0 - 12.0 12/27 [facility] HEMATOLOGY Eosinophils 3.2 % 0.0 - 4.0 12/27 [facility] HEMATOLOGY Lymphocytes 22.1 % 20.0 - 12/27 MH 40.0 /2015 [facility] HEMATOLOGY INR 1.04 0.85 - 12/27 MH 1.17 [facility] HEMATOLOGY PT 13.9 s 12.0 - 12/27 MH 14.7 [facility] HEMATOLOGY Hct 36.1 % 42.0 - 12/27 MH 54.0 /2015 [place] HEMATOLOGY Hgb 12.0 g/dL 14.0 - 12/27 18.0 /2015 [facility] HEMATOLOGY RBC 3.89 M/CMM 4.70 - 12/27 6.10 /2015 [facility] HEMATOLOGY MPV 9.4 fL 7.4 - 10.4 12/27 [facility] Platelet 115 K/CMM 133 - 450 12/27 [facility] RDW 14.7 % 11.5 - 12/27 14.5 [facility] MCHC 33.1 g/dL 32.0 - 12/27 36.0 /2015 [facility] MCV 92.8 fL 80.0 - 12/27 94.0 /2015 [facility] MCH 30.7 pg 27.0 - 12/27 31.0 /2015 [facility] WBC 4.2 K/CMM 3.7 - 10.4 12/27 [facility] Chest Chest 1view Clinical Indication: Left-sided chest pain 12/27 - 1view DX - [facility] Comparison: [...] IMPRESSION: No acute infiltrates or effusions. SL: [id number] CHEM PANEL Phosphorus 3.7 mg/dL 2.5 - 4.5 05/22 [facility]2014 [facility] CHEM PANEL Magnesium 2.1 mg/dL 1.8 - 2.4 05/22 [facility]2014 [facility] CHEM PANEL eGFR 49 05/22 Result Comment: The eGFR is calculated using the CKD-EPI formula. In most young, healthy individuals the eGFR will be >90 mL/ min/1.73m2. The eGFR declines with age. An eGFR of 60-89 may be normal in [facility] mL/min/1. some populations, particularly the elderly, for whom the CKD-EPI formula has not been extensively validated. Use of the eGFR is not recommended in the following populations: [place] [address] [facility] Individuals with unstable creatinine concentrations, including [...] Lvl 8.2 mg/dL 8.5 - 10.5 05/22 [facility] CHEM PANEL Creatinine 1.35 mg/dL 0.50 - 05/22 [facility] Lvl 1.40 /2014 [facility] CHEM PANEL Chloride Lvl 108 meq/L 95 - 109 05/22 [facility] CHEM PANEL CO2 26 meq/L 24 - 32 05/22 [facility] CHEM PANEL Sodium Lvl 141 meq/L 135 - 145 05/22 [facility] CHEM PANEL Potassium 4.5 meq/L 3.5 - 5.1 05/22 [facility] Lvl /2014 [facility] CHEM PANEL Glucose Lvl 110 mg/dL 70 - 99 05/22 [facility] CHEM PANEL BUN 22 mg/dL 7 - 22 05/22 [facility] CHEM PANEL AGAP 11.5 meq/L 10.0 - 05/22 20.0 [facility] HEMATOLOGY RDW 13.1 % 11.5 - 05/22 14.5 [facility] HEMATOLOGY MCHC 32.5 g/dL 32.0 - 05/22 [place] 36.0 [facility] HEMATOLOGY MCH 32.3 pg 27.0 - 05/22 31.0 [facility] HEMATOLOGY MCV 99.6 fL 80.0 - 05/22 94.0 [facility] HEMATOLOGY Hct 31.2 % 42.0 - 05/22 [place] 54.0 [facility] HEMATOLOGY MPV 9.4 fL 7.4 - 10.4 05/22 [facility] HEMATOLOGY Platelet 127 K/CMM 133 - 450 05/22 [facility] HEMATOLOGY Hgb 10.1 g/dL 14.0 - 05/22 [place] [facility] HEMATOLOGY RBC 3.14 M/CMM 4.70 - 05/22 [place] 6.10 /2014 [facility] HEMATOLOGY WBC 4.4 K/CMM 3.7 - 10.4 05/22 /2014 [facility] HEMATOLOGY Eosinophils 0.2 K/CMM 0.0 - 0.5 05/22 [place] # /2015 [facility] HEMATOLOGY Monocytes # 0.5 K/CMM 0.0 - 0.8 05/22 /2014 [facility] HEMATOLOGY Lymphocytes 19.4 % 20.0 - 05/22 [place] 40.0 [facility] HEMATOLOGY Segs 64.5 % 45.0 - 05/22 [place] 75.0 /2014 [facility] HEMATOLOGY Lymphocytes 0.9 K/CMM 1.0 - 5.5 05/22 [facility] # /2014 [facility] HEMATOLOGY Segs-Bands # 2.8 K/CMM 1.5 - 8.1 05/22 /2014 [facility] HEMATOLOGY Basophils 0.5 % 0.0 - 1.0 05/22 /2014 [facility] HEMATOLOGY Eosinophils 3.9 % 0.0 - 4.0 05/22 [facility] HEMATOLOGY Monocytes 11.7 % 2.0 - 12.0 05/22 [facility] /2014 [facility] HVI VAS HVI VAS INDICATION: groin hematoma 05/22 - [facility] Arterial/b Arterial/by /2014 - [facility] ypass ass Lower This report was dictated by a Broadband Engineer/ Fellow. I have personally reviewed the [...] arteriovenous fistula. CARDIAC Troponin-T 0.014 0.000 - 12 [facility] ENZYMES ng/mL 0.100 /2014 [facility] CARDIAC Troponin-I 0.04 ng/mL 0.00 - 12 [facility] ENZYMES 0.40 /2014 [facility] CARDIAC Total CK 34 unit/L 12 - 191 05/21 [facility] ENZYMES /2014 [facility] CHEM PANEL eGFR 63 05/21 Result Comment: The eGFR is calculated using the CKD-EPI formula. In most young, healthy individuals the eGFR will be >90 mL/ min/1.73m2. The eGFR declines with age. An eGFR of 60-89 may be normal in [facility] mL/min/1.7 some populations, particularly the elderly, for whom the CKD-EPI formula has not been extensively validated. Use of the eGFR is not recommended in the following populations: [address] Individuals with unstable creatinine concentrations, including [...] PANEL AGAP 15.1 meq/L 10.0 - 05/21 [facility] 20.0 [facility] CHEM PANEL Calcium Lvl 8.5 mg/dL 8.5 - 10.5 05/[address] CHEM PANEL CO2 20 meq/L 24 - 32 05/[address] CHEM PANEL Creatinine 1.09 mg/dL 0.50 - / [facility] Lvl 1.40 [facility] CHEM PANEL BUN 17 mg/dL 7 - 22 05/[address] CHEM PANEL Potassium 4.1 meq/L 3.5 - 5.1 05/21 [facility]2014 [facility] CHEM PANEL Sodium Lvl 140 meq/L 135 - 145 / [address] CHEM PANEL Glucose Lvl 177 mg/dL 70 - 99 05/[address] CHEM PANEL Chloride Lvl 109 meq/L 95 - 109 05/[address] CHEM PANEL Phosphorus 4.2 mg/dL 2.5 - 4.5 05/[address] CHEM PANEL Magnesium 2.2 mg/dL 1.8 - 2.4 12/12 [facility] Lvl /2014 [facility] HEMATOLOGY Macrocyte 1+ None Seen 05/21 [facility] *ABN* Center (05/21/15 12:13 AM) HEMATOLOGY Lymphocytes 0.6 K/CMM 1.0 - 5.5 12 [place] # /2014 [facility] HEMATOLOGY Basophils 0.4 % 0.0 - 1.0 12 /2014 [facility] HEMATOLOGY Monocytes # 0.4 K/CMM 0.0 - 0.8 12 /2014 [facility] HEMATOLOGY Lymphocytes 15.6 % 20.0 - 12 [place] 40.0 /2014 [facility] HEMATOLOGY Segs-Bands # 3.0 K/CMM 1.5 - 8.1 05/21 [facility] HEMATOLOGY Monocytes 8.8 % 2.0 - 12.0 05/21 /2014 [facility] HEMATOLOGY Eosinophils 0.7 % 0.0 - 4.0 05/21 /2014 [facility] HEMATOLOGY Segs 74.5 % 45.0 - 05/21 [place] 75.0 [facility] HEMATOLOGY INR 1.11 0.85 - 05/21 [place] 1.17 /2014 [facility] HEMATOLOGY PTT 30.1 s 22.9 - 12 [place] 35.8 /2014 [facility] HEMATOLOGY PT 14.6 s 12.0 - 1212 [place] 14.7 [facility] HEMATOLOGY Platelet 117 K/CMM 133 - 450 12 /2014 [facility] HEMATOLOGY MPV 9.6 fL 7.4 - 10.4 05/21 [facility] HEMATOLOGY MCH 33.1 pg 27.0 - 12 [place] 31.0 [facility] HEMATOLOGY MCHC 32.9 g/dL 32.0 - 12 [place] 36.0 /2014 [facility] HEMATOLOGY RDW 13.2 % 11.5 - 1212 [place] 14.5 [facility] HEMATOLOGY Hgb 10.2 g/dL 14.0 - 1212 [place] 18.0 [facility] HEMATOLOGY Hct 30.9 % 42.0 - 12/12 [place] 54.0 /2014 [facility] HEMATOLOGY MCV 100.6 fL 80.0 - 12 [place] 94.0 /2014 [facility] HEMATOLOGY RBC 3.07 M/CMM 4.70 - 1212 MH [place] 6.10 /2015 [facility] HEMATOLOGY WBC 4.0 K/CMM 3.7 - 10.4 05/21 [facility] PARATHYROI Ca Norm WB 1.13 1.05 - 05/21 [facility] D PROFILE mMol/L 1. [facility] PARATHYROI Ca Ion WB 1.09 1.05 - 05/21 [facility] D PROFILE mMol/L 1. [facility] CHEM PANEL Lactic Acid 0.7 mMol/L 0.5 - 2.2 05/20 [facility] CHEM PANEL Magnesium 1.4 mg/dL 1.8 - 2.4 05/20 [facility] CHEM PANEL Phosphorus 3.5 mg/dL 2.5 - 4.5 05/20 [facility] CHEM PANEL eGFR 78 05/20 Result Comment: The eGFR is calculated using the CKD-EPI formula. In most young, healthy individuals the eGFR will be >90 mL/ min/1.73m2. The eGFR declines with age. An eGFR of 60-89 may be normal in [facility] mL/min/1. some populations, particularly the elderly, for whom the CKD-EPI formula has not been extensively validated. Use of the eGFR is not recommended in the following populations: [address] Individuals with unstable creatinine concentrations, including [...] mg/dL 8.5 - 10.5 05/20 Result Comment: [facility] Result(s) called to HANK TANNER at 05/20/2015 14:22_ by CN_. Read back OK. CHEM PANEL AGAP 14.7 meq/L 10.0 - 05/20 [facility] 20. [facility] CHEM PANEL Glucose Lvl 108 mg/dL 70 - 99 05/20 [facility] CHEM PANEL Sodium Lvl 145 meq/L 135 - 145 05/20 [facility] CHEM PANEL Potassium 2.7 meq/L 3.5 - 5.1 05/20 Result [facility] /2014 Comment: [facility] Result(s) called to HANK TANNER at 05/20/2015 14:22_ by CN_. Read back OK. CHEM PANEL BUN 12 mg/dL 7 - 22 12 /2014 [facility] CHEM PANEL Creatinine 0.92 mg/dL 0.50 - 05/20 [facility] Lvl 1.40 /2014 [facility] CHEM PANEL Chloride Lvl 113 meq/L 95 - 109 12/ /2014 [facility] CHEM PANEL CO2 20 meq/L 24 - 32 12/ /2014 [facility] HEMATOLOGY PTT >200 22.9 - 12 Result [facility] seconds 35.8 /2015 Comment: [facility] Result(s) called to Benigno Jennings at 05/20/2015 14:[address] Read back OK. HEMATOLOGY PT 16.3 s 12.0 - 05/20 [place] 14.7 /2014 [facility] HEMATOLOGY INR 1.28 0.85 - 05/20 [place] 1.17 [facility] HEMATOLOGY Platelet 108 K/CMM 133 - 450 12 [facility] HEMATOLOGY MPV 9.8 fL 7.4 - 10.4 12 [facility] HEMATOLOGY MCV 100.5 fL 80.0 - 05/20 [place] 94.0 [facility] HEMATOLOGY RDW 13.3 % 11.5 - 12 [place] 14.5 [facility] HEMATOLOGY MCHC 32.9 g/dL 32.0 - 12 [place] 36.0 /2014 [facility] HEMATOLOGY MCH 33.1 pg 27.0 - 12 31.0 [facility] HEMATOLOGY RBC 2.95 M/CMM 4.70 - 12 [place] 6.10 /2014 [facility] HEMATOLOGY Hct 29.7 % 42.0 - 12/11 54.0 [facility] HEMATOLOGY Hgb 9.8 g/dL 14.0 - 12 [place] 18.0 [facility] HEMATOLOGY WBC 3.6 K/CMM 3.7 - 10.4 12 [facility] HEMATOLOGY Monocytes 11.3 % 2.0 - 12.0 12/ /2014 [facility] HEMATOLOGY Segs 60.4 % 45.0 - 1211 [place] 75.0 /2014 [facility] HEMATOLOGY Lymphocytes 23.3 % 20.0 - 05/20 40.0 /2014 [facility] HEMATOLOGY Segs-Bands # 2.2 K/CMM 1.5 - 8.1 05/20 [facility] HEMATOLOGY Lymphocytes 0.9 K/CMM 1.0 - 5.5 05/20 [facility] # /2014 [facility] HEMATOLOGY Basophils 0.3 % 0.0 - 1.0 05/20 /2014 [facility] HEMATOLOGY Eosinophils 4.7 % 0.0 - 4.0 05/20 [facility] /2014 [facility] HEMATOLOGY Monocytes # 0.4 K/CMM 0.0 - 0.8 05/20 /2014 [facility] HEMATOLOGY Macrocyte 1+ None Seen 05/20 [facility]* Center (05/20/15 1:48 PM) HEMATOLOGY Eosinophils 0.2 K/CMM 0.0 - 0.5 05/20 [facility] # /2014 [facility] PARATHYROI Ca Ion WB 1.12 1.05 - 05/20 [facility] D PROFILE mMol/L 1. [facility] PARATHYROI Ca Norm WB 1.09 1.05 - 05/20 [facility] D PROFILE mMol/L 1. [facility] CHEM PANEL Globulin 3.0 g/dL 2.0 - 4.0 05/20 [facility] [address] [place] [address] CHEM PANEL B/C Ratio 15 6 - 25 05/20 [facility] [address] [place] [address] CHEM PANEL Bili Total 0.8 mg/dL 0.2 - 1.3 05/20 [facility] /[address] [place] [address] CHEM PANEL A/G Ratio 1.1 0.7 - 1.6 05/20 [facility] CHEM PANEL Alk Phos 73 unit/L 39 - 136 05/20 [facility] [address] [place] [address] CHEM PANEL Albumin Lvl 3.2 g/dL 3.5 - 5.0 05/[address] CHEM PANEL ALT 30 unit/L 0 - 65 05/20 [facility] CHEM PANEL AST 20 unit/L 0 - 37 05/[address] CHEM PANEL Total 6.2 g/dL 6.4 - 8.4 05/20 [facility] /2014 [facility] HEMATOLOGY INR 1.06 0.85 - 05/20 [place] 1. [facility] HEMATOLOGY PT 14.1 s 12.0 - 05/20 [facility] 14.7 [facility] HEMATOLOGY PTT 67.4 s 22.9 - 05/20 [facility] 35.8 [facility] HEMATOLOGY Eosinophils 0.2 K/CMM 0.0 - 0.5 05/20 [facility] # [facility] CHEM PANEL AST 27 unit/L 0 - 37 05/17 [facility] CHEM PANEL ALT 30 unit/L 0 - 65 05/17 [facility] CHEM PANEL Albumin Lvl 3.0 g/dL 3.5 - 5.0 05/17 [facility] CHEM PANEL Alk Phos 65 unit/L 39 - 136 05/17 [facility] CHEM PANEL B/C Ratio 11 6 - 25 05/17 [facility] CHEM PANEL Bili Total 0.8 mg/dL 0.2 - 1.3 05/17 [facility] CHEM PANEL Total 5.6 g/dL 6.4 - 8.4 05/17 [facility] CHEM PANEL A/G Ratio 1.2 0.7 - 1.6 05/17 [facility] CHEM PANEL Globulin 2.6 g/dL 2.0 - 4.0 05/17 [facility] HEMATOLOGY PTT 58.0 s 22.9 - 05/16 [address] [place] CHEM PANEL Phosphorus 3.0 mg/dL 2.5 - 4.5 05/15 [facility] CHEM PANEL Magnesium 1.8 mg/dL 1.8 - 2.4 05/15 Lvl [facility] ELECTROLYT AGAP 8.9 meq/L 10.0 - 05/15 ES 20.0 /2014 [facility] ELECTROLYT eGFR 59 05/15 Result Comment: The [...] is not recommended in the following populations: [place] [address] Individuals with unstable creatinine concentrations, including patients [...] Lvl 8.5 mg/dL 8.5 - 10.5 05/15 [facility] ELECTROLYT CO2 [...] 117 mg/dL 70 - 99 05/15 ES [facility] ELECTROLYT Creatinine 1.15 mg/dL 0.50 - 05/15 ES Lvl 1.40 /2014 [facility] ELECTROLYT BUN 14 mg/dL 7 - 22 05/15 ES [facility] HEMATOLOGY Segs-Bands # 2.7 K/CMM 1.5 - 8.1 05/15 [place] HEMATOLOGY Lymphocytes 1.2 K/CMM 1.0 - 5.5 05/15 # /2014 [facility] HEMATOLOGY Eosinophils 0.2 K/CMM 0.0 - 0.5 05/15 # /2014 [facility] HEMATOLOGY [...] Segs 57.5 % 45.0 - 05/15 75.0 [facility] HEMATOLOGY Basophils 0.5 % 0.0 - 1.0 05/15 [place] HEMATOLOGY Eosinophils 5.0 % 0.0 - 4.0 05/15 [facility] HEMATOLOGY PTT 56.4 s 22.9 - 05/15 35.8 /2014 [facility] HEMATOLOGY MCH 33.4 pg 27.0 - 05/15 31.0 [facility] HEMATOLOGY Hct 32.9 % 42.0 - 05/15 [facility] 54.0 /2014 [place] HEMATOLOGY MCV 99.6 fL 80.0 - 12 MH 94.0 /2014 [facility] HEMATOLOGY Platelet 104 K/CMM 133 - 450 05/15 [facility] HEMATOLOGY MPV 9.5 fL 7.4 - 10.4 05/15 [facility] HEMATOLOGY RDW 13.4 % 11.5 - 12 MH 14.5 /2014 [facility] HEMATOLOGY MCHC 33.6 g/dL 32.0 - 05/15 [facility] 36.0 /2014 [facility] HEMATOLOGY RBC 3.30 M/CMM 4.70 - 12 [facility] 6.10 /2014 [facility] HEMATOLOGY Hgb 11.0 g/dL 14.0 - 12 MH 18.0 /2014 [facility] WBC 4.7 K/CMM 3.7 - 10.4 05/15 [facility] PTT 55.3 s 22.9 - 05/14 [facility] 35.8 /2014 [facility] CHEM [...] of 60-89 may be normal in mL/min/1.7 /2014 some populations, particularly the elderly, for whom the CKD-EPI formula has not been extensively validated. Use of the eGFR is not recommended in the following populations: [place] [address] Individuals with unstable creatinine concentrations, including patients [...] 3.9 meq/L 3.5 - 5.1 05/14 Lv [facility] CHEM PANEL Sodium Lvl 142 meq/L 135 - 145 05/14 [facility] CHEM PANEL Creatinine 1.29 mg/dL 0.50 - 05/14 Lvl 1.40 /2014 [facility] CHEM PANEL CO2 26 meq/L 24 - 32 12 /2014 [facility] CHEM PANEL Calcium Lvl 8.2 mg/dL 8.5 - 10.5 05/14 /2014 [facility] CHEM PANEL BUN 20 mg/dL 7 - 22 05/14 /2014 [facility] CHEM PANEL Glucose Lvl 111 mg/dL 70 - 99 12 /2014 [facility] CHEM PANEL AGAP 11.9 meq/L 10.0 - 12 MH 20.0 /2014 [facility] HEMATOLOGY MPV 9.3 fL 7.4 - 10.4 05/14 /2014 [facility] HEMATOLOGY RDW 13.2 % 11.5 - 12 MH 14.5 /2014 [facility] HEMATOLOGY MCHC 33.2 g/dL 32.0 - 05/14 [facility] 36.0 /2014 [facility] HEMATOLOGY Platelet 102 K/CMM 133 - 450 12 /2014 [facility] HEMATOLOGY MCH 33.2 pg 27.0 - 05/14 31.0 /2014 [facility] HEMATOLOGY Hct 32.7 % 42.0 - 05/14 [facility] 54.0 /2014 [facility] HEMATOLOGY MCV 99.9 fL 80.0 - 05/14 94.0 /2014 [facility] HEMATOLOGY WBC 5.1 K/CMM 3.7 - 10.4 05/14 /2014 [facility] HEMATOLOGY RBC 3.27 M/CMM 4.70 - 05/14 MH 6.10 /2014 [facility] HEMATOLOGY Hgb 10.9 g/dL 14.0 - 05/14 18.0 /2014 [facility] HEMATOLOGY Lymphocytes 1.4 K/CMM 1.0 - 5.5 05/14 # /2015 [facility] HEMATOLOGY Monocytes # 0.5 K/CMM 0.0 - 0.8 05/14 /2014 [facility] HEMATOLOGY Segs-Bands # 3.0 K/CMM 1.5 - 8.1 05/14 /2014 [facility] HEMATOLOGY Basophils 0.5 % 0.0 - 1.0 05/14 /2014 [facility] HEMATOLOGY Eosinophils 0.2 K/CMM 0.0 - 0.5 05/14 # /2014 [facility] HEMATOLOGY Macrocyte 1+ None Seen 05/14 [facility] *ABN* (05/14/15 6:20 AM) HEMATOLOGY Segs 58.7 % 45.0 - 12 MH 75.0 /2014 [facility] HEMATOLOGY Lymphocytes 26.6 % 20.0 - 12 [facility] 40.0 /2015 [facility] HEMATOLOGY Monocytes 10.1 % 2.0 - 12.0 05/14 MH /2014 [facility] HEMATOLOGY Eosinophils 4.1 % 0.0 - 4.0 05/14 [facility] CARDIAC Total CK 74 unit/L 12 - 191 05/13 [facility] /2014 [facility] CARDIAC Troponin-I 0.69 ng/mL 0.00 - 12 Result [facility] 0.40 /2015 Comment: [facility] Critical Result(s) called to Taz Hebert RN at 05/13/2015 03:08 by shyann. Read back OK. CHEM PANEL Phosphorus 3.0 mg/dL 2.5 - 4.5 05/13 MH [facility] CHEM PANEL Magnesium 1.8 mg/dL 1.8 - 2.4 05/13 Lv [facility] ELECTROLYT AGAP 9.0 meq/L 10.0 - 05/13 ES 20.0 [place] ELECTROLYT eGFR 48 05/13 Result Comment: [...] 8.8 mg/dL 8.5 - 10.5 05/13 ES [facility] ELECTROLYT CO2 28 meq/L 24 - 32 05/13 ES [facility] ELECTROLYT Chloride Lvl 108 meq/L 95 - 109 05/13 ES [facility] ELECTROLYT Potassium 4.0 meq/L 3.5 - 5.1 05/13 ES Lvl [facility] ELECTROLYT Glucose Lvl 127 mg/dL 70 - 99 05/13 ES [facility] ELECTROLYT Sodium Lvl 141 meq/L 135 - 145 05/13 /2014 [place] ELECTROLYT Creatinine 1.36 mg/dL 0.50 - 05/13 ES Lvl 1.40 /2014 [place] ELECTROLYT BUN 29 mg/dL 7 - 22 05/13 [place] HEMATOLOGY Eosinophils 0.1 K/CMM 0.0 - 0.5 05/13 MH # /2014 [place] HEMATOLOGY Monocytes # 0.4 K/CMM 0.0 - 0.8 05/13 /2014 [facility] HEMATOLOGY Macrocyte 1+ None Seen 05/13 [place] *ABN* (05/13/15 2:07 AM) HEMATOLOGY Segs-Bands # 2.7 K/CMM 1.5 - 8.1 05/13 [place] HEMATOLOGY Basophils 0.4 % 0.0 - 1.0 05/13 [facility] HEMATOLOGY Eosinophils 3.2 % 0.0 - 4.0 05/13 [facility] HEMATOLOGY Lymphocytes 1.2 K/CMM 1.0 - 5.5 05/13 /2014 [place] HEMATOLOGY Monocytes 8.6 % 2.0 - 12.0 05/13 /2014 [place] HEMATOLOGY Lymphocytes 27.6 % 20.0 - 05/13 MH 40.0 [facility] HEMATOLOGY Segs 60.2 % 45.0 - 05/13 MH 75.0 [facility] HEMATOLOGY WBC 4.4 K/CMM 3.7 - 10.4 05/13 /2014 [facility] HEMATOLOGY RBC 3.33 M/CMM 4.70 - 05/13 MH 6.10 [facility] HEMATOLOGY Platelet 114 K/CMM 133 - 450 05/13 /2014 [facility] HEMATOLOGY MPV 10.0 fL 7.4 - 10.4 05/13 /2014 [facility] HEMATOLOGY Hgb 11.3 g/dL 14.0 - 05/13 MH 18.0 [facility] HEMATOLOGY Hct 33.1 % 42.0 - 12 MH 54.0 [facility] HEMATOLOGY RDW 13.4 % 11.5 - 12 MH 14. [facility] HEMATOLOGY MCV 99.4 fL 80.0 - 05/13 MH 94.0 [facility] HEMATOLOGY MCH 34.0 pg 27.0 - 12 [facility] 31.0 [facility] HEMATOLOGY MCHC 34.2 g/dL 32.0 - 12 [facility] 36.0 [place] LIPIDS Trig 302 mg/dL <=149 05/13 mg/dL /2015 [place] LIPIDS VLDL 60 05/13 /2014 [place] LIPIDS Chol 143 mg/dL <=199 05/13 mg/dL /2014 [place] [facility] CHD Risk 5.11 4.00 - 05/13 7.30 /2014 [place] LIPIDS HDL 28 mg/dL >=61 mg/dL 05/13 /2014 [place] LIPIDS LDL 55 mg/dL <=99 mg/dL 05/13 (Calculated) [facility] CARDIAC CK MB Index 3.9 0.0 - 2.5 05/13 [facility] /2014 [facility] CARDIAC CK MB 3.3 ng/mL 0.5 - 3.6 05/13 [facility] /2014 [facility] CARDIAC Total CK 85 unit/L 12 - 191 05/13 [facility] /2014 [place] CARDIAC Troponin-I 0.69 ng/mL 0.00 - 05/13 Result [facility] 0.40 /2014 Comment: [facility] Critical Result(s) called to Taz Hebert RN at 05/12/2015 22:11 by [email or web address]. Read back OK. HEMATOLOGY INR 1.14 0.85 - 05/13 1.17 /2014 [facility] HEMATOLOGY PT 14.9 s 12.0 - 05/13 14.7 /2014 [facility] CARDIAC BNP [...] Phos 89 unit/L 39 - 136 05/12 /2014 [place] CHEM PANEL B/C Ratio 18 6 - 25 05/12 /2014 [facility] CHEM PANEL Bili Total 0.9 mg/dL 0.2 - 1.3 05/12 /2014 [facility] CHEM PANEL A/G Ratio 1.1 0.7 - 1.6 05/12 /2014 [place] CHEM PANEL Globulin 3.7 g/dL 2.0 [...] HEMATOLOGY INR 1.02 0.85 - 05/12 1.17 /2015 [facility] HEMATOLOGY PT 13.7 s 12.0 - 05/12 14.7 /2015 [facility] URINE AND UA Leuk Est Negative Negative 05/12 STOOL [facility] (05/12/15 2:56 PM) URINE AND UA Bili Negative Negative 05/12 [facility] UA Spec Grav 1.010 <=1.030 05/12 STOOL [facility] URINE AND UA Turbidity Clear Clear 05/12 STOOL [facility] (05/12/15 2:56 PM) URINE AND UA WBC 0-2 /HPF None Seen 05/12 [facility] /HPF /2014 [facility] URINE AND UA Sq Epi None Seen Few 05/12 STOOL [facility] (05/12/15 2:56 PM) URINE AND UA Bacteria None Seen None Seen 05/12 STOOL [facility] (05/12/15 2:56 PM) URINE AND UA RBC None Seen 0 - 2 05/12 [facility] /2014 [facility] (05/12/15 2:56 PM) Chest Chest 1view Name: GILL MADERA 05/12 - 1view DX DX /2014 - [facility] [...] Renal Stone Name: GILL MADERA 11/13 - [facility] Stone [facility] CT /2013 - Outpatient : [id number] Imaging [facility] Read by: Silverio Mahmood MD Dictated Date/time: 11/13/13 15:19 Ordering Physician: Cely Echavarria Electronically Signed by: Silverio Mahomod MD 11/13/13 15:54 FINAL REPORT Renal Stone [...] reconstructions were obtained and viewed on a [employer] workstation. FINDINGS: A 5 mm calcified granuloma [...] process. SL:53 BEDSIDE Gluc POC 148 mg/dL - 110 06/29 [place] 1[facility] Data: [facility] TESTING Upper Reportable Limit: 200 mg/dL. BEDSIDE Gluc POC 180 mg/dL 06/29 ME 2Interpretive GLUCOSE [facility] /2011 Data: [facility] TESTING Upper Reportable Limit: 200 mg/dL. BEDSIDE Gluc POC 248 mg/dL 19 HI 3Interpretive GLUCOSE [facility] /2011 Data: [facility] TESTING Upper Reportable Limit: 200 mg/dL. CHEMISTRY AGAP 14.6 meq/L 10.0 - 06/26 Normal MH 20.0 [facility] CHEMISTRY Calcium Lvl 9.1 mg/dL 8.5 - 10.5 06/26 Normal MH /2011 [place] CHEMISTRY CO2 27 meq/L 24 - 32 06/26 Normal MH /2011 [facility] CHEMISTRY Chloride Lvl 103 meq/L 95 - 109 06/26 Normal MH /2011 [facility] CHEMISTRY Potassium 4.6 meq/L 3.5 - 5.1 06/26 Normal MH Lvl [facility] CHEMISTRY Sodium Lvl 140 meq/L 135 - 145 06/26 Normal MH [facility] CHEMISTRY Creatinine 2.1 mg/dL 0.5 - 1.4 06/26 HI MH Lvl /2011 [place] CHEMISTRY Glucose Lvl 175 mg/dL 06/26 NA 4Interpretive MH /2011 Data: [facility] Reference Ranges : 0 - 7 days : 41 - 90 mg/dL7 days - 150 yrs : 70 - 99 mg/dL (fasting), based on the clinical recommendatio ns of the [place] [employer]. CHEMISTRY BUN 36 mg/dL 7 - 22 06/26 HI MH /2011 [place] HEMATOLOGY Basophils # 0.0 K/CMM 0.0 - 0.2 06/26 Normal MH /2011 [place] HEMATOLOGY Eosinophils 0.1 K/CMM 0.0 - 0.5 06/26 Normal MH # /2011 [place] HEMATOLOGY Eosinophils 1.8 % 0.0 - 4.0 06/26 Normal MH /2011 [place] HEMATOLOGY Lymphocytes 1.0 K/CMM 1.0 - 5.5 06/26 Normal MH # /2011 [place] HEMATOLOGY Monocytes # 0.3 K/CMM 0.0 - 0.8 06/26 Normal MH /2011 [place] HEMATOLOGY Basophils 0.5 % 0.0 - 1.0 06/26 Normal MH /2011 [place] HEMATOLOGY Monocytes 7.7 % 2.0 - 12.0 06/26 Normal MH /2011 [place] HEMATOLOGY Lymphocytes 23.4 % 20.0 - 06/26 Normal MH 40.0 /2011 [facility] HEMATOLOGY Segs-Bands # 2.8 K/CMM 1.5 - 8.1 06/26 Normal /2011 [facility] HEMATOLOGY Segs 66.6 % 45.0 - 06/26 Normal MH 75.0 /2011 [facility] HEMATOLOGY PT 13.7 s 12.0 - 06/26 Normal MH 14.7 /2011 [facility] HEMATOLOGY INR [...] 7.4 - 10.4 06/26 Normal MH /2011 [facility] HEMATOLOGY MCHC 35.5 g/dL 32.0 - 06/26 Normal 36.0 /2011 [facility] HEMATOLOGY RDW 13.4 % 11.5 - 06/26 Normal 14.5 /2011 [facility] HEMATOLOGY Platelet 127 K/CMM 133 - 450 06/26 LOW MH /2011 [facility] HEMATOLOGY Hct 32.2 % 42.0 - 06/26 LOW 7Result 54.0 /2011 Comment: [facility] Reference range changed due to change in patient's gender at 08:43:59. Normal Low changed from not defined to 42.0. Normal High changed from not defined to 54.0. Result flag changed from not applied to L. HEMATOLOGY Hgb 11.4 g/dL 14.0 - 06/26 LOW 6Result 18.0 Comment: [facility] [...] 34.5 pg 27.0 - 06/26 HI 31.0 /2011 [facility] HEMATOLOGY RBC [...] Date Comments Source Respitory Rate 19 08/06/2017 [place] Systolic (mm Hg) 131 08/06/2017 [place] Diastolic (mm Hg) 62 08/06/2017 [place] Respitory Rate 18 08/06/2017 [place] Systolic (mm Hg) 131 08/06/2017 [place] Diastolic (mm Hg) 62 08/06/2017 [place] Respitory Rate 19 08/06/2017 [place] Systolic (mm Hg) 121 08/06/2017 [place] Diastolic (mm Hg) 64 08/06/2017 [place] Weight 90.909 08/06/2017 [place] BMI Calculated 28.76 08/06/2017 [place] Height 177.8 cm 08/06/2017 [place] Temperature Oral (F) 97.6 F 08/06/2017 [place] Heart Rate 68 08/06/2017 [place] Respitory Rate 20 05/30/2017 [facility] Heart Rate 58 05/30/2017 [facility] Systolic (mm Hg) 132 05/30/2017 [facility] Diastolic (mm Hg) 68 05/30/2017 [facility] Temperature Oral (F) 98.1 F 05/30/2017 [facility] Systolic (mm Hg) 126 05/30/2017 [facility] Diastolic (mm Hg) 60 05/30/2017 [facility] Heart Rate 55 05/30/2017 [facility] Respitory Rate 20 05/30/2017 [facility] Heart Rate 59 05/30/2017 [facility] Systolic (mm Hg) 146 05/30/2017 [facility] Diastolic (mm Hg) 63 05/30/2017 [facility] Respitory Rate 20 05/30/2017 [facility] Temperature Oral (F) 97 F 05/30/2017 [facility] Weight 83.182 05/30/2017 [facility] BMI Calculated 28.72 05/30/2017 [facility] Height 170.18 cm 05/30/2017 [facility] Systolic (mm Hg) 110 12/03/[facility] Height 66 12/03/2016 [facility] Diastolic (mm Hg) 50 12/03/2016 [facility] Systolic (mm Hg) 100 11/15/2016 [facility] Height 66 11/15/2016 [facility] Diastolic (mm Hg) 50 11/15/2016 [facility] Systolic (mm Hg) 120 11/03/2016 [facility] Diastolic (mm Hg) 64 11/03/2016 [facility] Temperature Oral (F) 97.6 F 11/03/2016 [facility] Heart Rate 66 11/03/2016 [facility] Temperature Oral (F) 98.2 F 11/03/2016 [facility] Heart Rate 68 11/03/2016 [facility] Respitory Rate 18 11/03/2016 [facility] Systolic (mm Hg) 101 11/03/2016 [facility] Diastolic (mm Hg) 50 11/03/2016 [facility] Systolic (mm Hg) 121 11/03/2016 [facility] Diastolic (mm Hg) 56 11/03/2016 [facility] Respitory Rate 18 11/03/2016 [facility] Heart Rate 65 11/03/2016 [facility] Temperature Oral (F) 98.2 F 11/03/2016 [facility] Respitory Rate 18 11/03/2016 [facility] BMI Calculated 28.04 11/03/2016 [facility] Height [...] 12/30/2015 [facility] Diastolic (mm Hg) 67 12/30/2015 [facility] Temperature Oral (F) 98.0 F 12/30/2015 [facility] Heart Rate 68 12/30/2015 [facility] Respitory Rate 16 12/30/2015 [facility] Temperature Oral (F) 98.4 F 12/30/2015 [facility] Respitory Rate 16 12/30/2015 [facility] Heart Rate 62 12/30/2015 [facility] Systolic (mm Hg) 137 12/30/2015 [facility] Diastolic (mm Hg) 65 12/30/2015 [facility] Weight 82.273 12/30/2015 [facility] Temperature Oral (F) 98.2 F 12/30/2015 [facility] Heart Rate 64 12/30/2015 [facility] Systolic (mm Hg) 130 12/30/2015 [facility] Diastolic (mm Hg) 64 12/30/2015 [facility] Respitory Rate 16 12/30/2015 [facility] BMI Calculated 28.82 12/28/2015 [facility] Weight 83.455 12/28/2015 [facility] Height 170.18 cm 12/28/2015 [facility] BMI Calculated 29.25 12/28/2015 [facility] Height 170.18 cm 12/28/2015 [facility] Weight 84.716 12/28/2015 [facility] Systolic (mm Hg) 104 05/22/2015 [facility] Diastolic (mm Hg) 52 05/22/2015 [facility] Systolic (mm Hg) 109 05/22/2015 [facility] Diastolic (mm Hg) 52 05/22/2015 [facility] Temperature Oral (F) 98.2 F 05/22/2015 [facility] Systolic (mm Hg) 140 05/22/2015 [facility] Diastolic (mm Hg) 66 05/22/2015 [facility] Temperature Oral (F) 98.2 F 05/21/2015 [facility] Temperature Oral (F) 98.0 F 05/21/2015 [facility] Respitory Rate 20 05/20/2015 [facility] Heart Rate 63 05/20/2015 [facility] Respitory Rate 18 05/20/2015 [facility] Heart Rate 63 05/20/2015 [facility] Heart Rate 73 05/20/2015 [facility] Respitory Rate 18 05/20/2015 [facility] BMI Calculated 29.35 05/17/2015 [facility] Height 170.18 cm 05/17/2015 [facility] Weight 85 05/17/2015 [facility] Systolic (mm Hg) 144 05/17/2015 [facility] Diastolic (mm Hg) 62 05/17/2015 [facility] [...] 06/29/2011 [facility] Systolic (mm Hg) 146 06/29/2011 [facility] Respitory Rate 18 06/29/2011 [facility] Systolic (mm Hg) 113 06/29/2011 [facility] Diastolic (mm Hg) 72 06/29/2011 [facility] Temperature Oral (F) 96.7 F 06/29/2011 [facility] Heart Rate 78 06/29/2011 [facility] Diastolic (mm Hg) 70 06/29/2011 [facility] Heart Rate 90 06/29/2011 [facility] Temperature Oral (F) 98.0 F 06/29/2011 [facility] Respitory Rate 20 06/29/2011 [facility] Systolic (mm Hg) 137 06/29/2011 [facility] Weight 94.545 06/26/2011 [facility] Height 170.18 cm 06/26/2011 [facility] Encounters Location Location Encounter Encounter Reason Attending ADM DC Status Source Details Type Number For Provider Date Date Visit Not Sent YOANDY [id number] CHRONIC PING WING 06/28 06/29 Active 0 SYSTOLIC /2011 [facility] FAIL[facility] 428.22 ANGINA 413.9. [facility] Outpt Diag [id number] [place] 11/13 11/14 [facility] Outpatient Services 0 [facility] [place] Cardi[facility]asc STRESS TEST [id number] 12/17 12/17 [facility] 17-481b-88e /2013 [facility] 18d Cardiovasc STRESS TEST [id number] 12/17 12/17 [facility] bf-464d-983 /2013 [facility][id number] [facility] bb9 Cardiovasc STRESS TEST 8s3wa8m4-t6 12/17 12/17 [facility] 1e-441c-b90 /2013 [facility]t52e50h78 [facility] c19 Cardiovasc STRESS TEST 4p6dx7p1-3j 12/17 12/17 [facility] a2-2zs9-s01 /2013 [facility]-30487d665 [facility] 8e8 Cardiovasc STRESS TEST j39t4gej-sq 12/17 12/17 [facility] c8-54k8-230 /2013 [facility] e[facility]vx[facility]q3ov [facility] a47 Cardiovasc STRESS TEST 45h5zzdg-3q 12/17 12/17 [facility] 57-74x0-qp3 /2013 [facility] c[facility]ve34bg3wa [facility] eaf Cardiovasc STRESS TEST 146g0k10-s8 12/17 12/17 [facility] c9-16m8-8el /2013 [facility]f4wm75247 [facility] c2a Cardiovasc STRESS TEST [id number] 12/17 12/17 [facility] dd-49fb-a4e /2013 [id number] [facility] 790 Cardiovasc STRESS TEST [id number]-26 12/17 12/17 [facility] 33-2x74-nvj /2013 [facility]-7r92tuw50 [facility] 8f0 Cardiovasc STRESS TEST iw7y002u-o6 12/17 12/17 [facility] f5-40ef-8e3 [facility]-0x6v8a6u1 [facility] 188 Cardiovasc Established 3z1608u7-6i 12/17 12/17 [facility] Patient c6-4247-8ae [facility] b[facility]atrz615qj [facility] 523 Cardiovasc Established n378v3u7-62 12/17 12/17 [facility] Patient 3b-2kq5-i16 /2013 [facility]-69v039n17 [facility] 6c1 Cardiovasc Established [id number] 12/17 12/17 [facility] Patient f1-4817-bfa /2013 [facility] e[facility]5l0i16nx5 [facility] 31e Cardiovasc Established qn28b755-l8 12/17 12/17 [facility] Patient 89-4867-853 /2013 [facility] c-[id number] [facility] acf Cardiovasc Established 82axp3x3-nl 12/17 12/17 [facility] Patient f0-4996-bbc /2013 [facility]n7u05k40t [facility] e92 Cardiovasc Established 6o2xj225-70 12/17 12/17 [facility] Patient 63-07i0-019 /2013 [facility]p8kuc919d [facility] 99c Cardiovasc Established e400s135-xb 12/17 12/17 [facility] Patient 4a-7hd4-l7j /2013 [facility] c-7349roi32 [facility] c3c Cardiovasc Established v0lfb436-1v 12/17 12/17 [facility] Patient 2b-3v96-792 [facility]-0239zno54 [facility] dc5 Cardiovasc Established 945c1m14-r7 12/17 12/17 [facility] Patient 0a-44fd-b7f [facility] a-6j204v994 [facility] 2ca Cardiovasc Established 2253027r-2b 12/17 12/17 [facility] Patient 20-4590-8a6 [facility]-3048jp7vk [facility] 4e4 Cardiovasc Established 9446a09z-az 03/19 03/19 [facility] Patient c9-49fa-9af [facility]-858b88817 [facility] 99e Cardiovasc Established h11k55j0-45 03/19 03/19 [facility] Patient b5-4p8l-682 /2013 [facility]10t457561 [facility] e95 Cardiovasc Established 87t4611k-l6 03/19 03/19 [facility] Patient ea-425a-99b /2013 [facility] e-0ns1lylu5 [facility] 365 Cardiovasc Established 6f36z14v-6y 03/19 03/19 [facility] Patient 3e-6d53-11c [facility]-5873bfecc [facility] 94f Cardiovasc Established ra9820b4-5f 03/19 03/19 [facility] Patient a6-46cc-8a6 /2013 [facility] c-spmj2v1ru [facility] 33a Cardiovasc Established 0c7h79ug-50 03/19 03/19 [facility] Patient b8-4644-860 /2013 [facility] e-[id number] [facility] 1d9 Cardiovasc Established 46t9t923-3r 03/19 03/19 [facility] Patient e1-00v3-b2f /2013 [facility]-44a42v8oy [facility] 096 Cardiovasc Established 4bhhn653-25 03/19 03/19 [facility] Patient 84-0l04-333 [facility]-9c4s7jx2p [facility] 0e7 Cardiovasc Established ff64f065-i1 03/19 03/19 [facility] Patient 2a-4897-a60 [facility] e-1784s911f [facility] a8b Cardiovasc Established 75t5f6e7-gj 03/19 03/19 [facility] Patient 80-9gi8-a8k /2013 [facility]y1qk64012 [facility] c27 Cardiovasc Established 5s2og70o-c8 06/25 06/25 [facility] Patient 2b-495e-9b9 /2014 [facility]15c18fimf [facility] a45 Cardiovasc Established q7029n20-57 06/25 06/25 [facility] Patient 27-7w99-09z /2014 [facility] 0-xu0042443 [facility] [place] Cardiovasc Established r7e58rz5-ez 06/25 06/25 [facility] Patient 38-1k6h-r1b /2014 [facility] c-3hu4p5o8w [facility] 92b Cardiovasc Established 152xx236-82 06/25 06/25 [facility] Patient b4-4161-977 /2014 [facility]-587026647 [facility] 5fc Cardiovasc Established p2eb4zl0-a7 06/25 06/25 [facility] Patient 3f-3m59-54d /2014 [facility] 4-2is0y8m88 [facility] e6e Cardiovasc Established f735n06m-zn 06/25 06/25 [facility] Patient 27-8f0g-873 /2014 [facility] 1-p7j1j0804 [facility] 1fb Cardiovasc Established 437obq16-61 06/25 06/25 [facility] Patient 87-0x78-e02 /2014 [facility] e[facility]p3526y53t [facility] bf1 Cardiovasc [place] 249hg404-w5 08/06 08/06 [facility] ular refill 81-28d5-t58 /2014 [facility]-ytj832815 [facility] a59 Cardiovasc [place] i7e6717x-20 08/06 08/06 Cardi[facility] ular refill f7-4965-882 /2014 [facility] f-t930c2gvl [facility] 2ae Cardiovasc [place] ft67f0b6-3u 08/06 08/06 Cardi[facility] ular refill 28-5w4g-5gz /2014 [facility] d-3hsr9hy81 [facility] 3d8 Cardiovasc [place] 3100wti3-2a 08/06 08/06 [facility] refill 09-400c-874 /2014 [facility] 2-231epe5g6 [facility] 751 Cardiovasc [place] 8n57p399-29 08/06 08/06 [facility] refill f7-34m0-248 /2014 [facility] f-3h584j458 [facility] 2ee Cardiovasc [place] g81j4w35-2m 08/06 08/06 [facility] refill 97-463c-8f0 /2014 [facility] a-[id number] [facility] 472 Cardiovasc Unknown [id number] 08/18 08/18 [facility] b0-9fd0-5nq /2014 [facility] 1-8t833b9wh [facility] d59 Cardiovasc Unknown [id number] 08/18 08/18 [facility] 87-4089-b16 /2014 [facility] 9-l7vq1h595 [facility] a62 Cardiovasc Unknown [id number] 08/18 08/18 [facility] 60-42ba-9e5 [facility] b-04k1dn4v9 [facility] a07 Cardiovasc Unknown [id number] 08/18 08/18 [facility] 53-4bcf-b56 /2014 [facility] b-5no1313lw [facility] 242 Cardiovasc Unknown [id number] 08/18 08/18 [facility] c3-4109-a23 /2014 [facility] e-68744kwz6 [facility] 85e Cardiovasc Unknown [id number] 08/18 08/18 [facility] 1c-6j17-j8u /2014 [facility] f-ffaqg61l6 [facility] lucas Cardiovasc chest pain. 6649i406-8p 10/07 10/07 [facility] 10/06 7e-4aee-8d3 /2014 [facility] 7-9i2f3m301 [facility] 12d Cardiovasc chest pain. 8r2nxu92-j1 10/07 10/07 [facility] 10/06 9c-02u6-75x /2014 [facility] d-99994bv63 [facility] 40e Cardiovasc chest pain. 708ckmx8-4d 10/07 10/07 [facility] 10/06 a2-17d7-o7p /2014 [facility] 4-d7s2q7995 [facility] e95 Cardiovasc chest pain. cpv94iwu-3j 10/07 10/07 [facility] 10/06 0b-4419-829 /2014 [facility] a-m0w0n5alc [facility] cc8 Cardiovasc chest pain. r8g8w6l8-57 10/07 10/07 [facility] 10/06 33-4083-959 /2014 [facility] a-z0e9db7xy [facility] d6e Cardiovasc chest pain. q067pd6i-31 10/07 10/07 [facility] 10/06 77-9k4g-85z /2014 [facility]-39371m3oe [facility] 512 Cardiovasc Established 6o7m7e7d-x2 01/18 01/18 [facility] Patient 41-58l2-r92 [facility] b-tb13q14e0 [facility] e4e Cardiovasc Established 852747d9-72 01/18 01/18 [facility] Patient 88-4305-97e [facility] a-phgh86ruk [facility] 57a Cardiovasc Established 1ar41132-60 01/18 01/18 Cardi[facility] Patient c0-4dde-bcf [facility] a-0v4r7z749 [facility] ea8 Cardiovasc Established 1748e273-82 01/18 01/18 Cardi[facility] Patient c3-0rq1-r2n [facility] [id number] [facility] 09c Cardiovasc Established o9lk7682-z1 01/18 01/18 Cardi[facility] Patient 6c-470f-80b [facility] 8-6ul35hy19 [facility] b26 Cardiovasc Established 010xu332-o1 01/18 01/18 [facility] Patient b6-41ae-98a /2014 [facility] 3-72k8vwv65 [facility] 338 Cardiovasc possible [id number] 05/11 05/11 [facility] ular heart b7-6de2-d80 /2014 [facility] attack [id number] [facility] 24b Cardiovasc possible 0353zw1g-23 05/11 05/11 [facility] heart fb-4182-830 /2014 [facility] attack 3-45w379i05 [facility] 4a0 Cardiovasc possible h26r557q-wq 05/11 05/11 Cardi[facility] ular heart 33-42af-a79 /2014 [facility] attack c-311fn7j1j [facility] ad0 Cardiovasc possible 08671wy1-47 05/11 05/11 [facility] heart 37-4717-94b /2014 [facility] attack 0-5vp54t642 [facility] 39d Cardiovasc possible 94u10819-p6 05/11 05/11 [facility] heart 87-4156-9e6 /2014 [facility] attack 8-9913tv725 [facility] 6cc Cardiovasc possible 15w74795-ax 05/11 05/11 [facility] ular heart fb-479c-ac9 /2014 [facility] attack e-t4000rb50 [facility] af7 Cardiovasc Established 48wao2lt-46 05/12 05/12 [facility] Patient a5-8vj9-31b /2014 [facility] 6-7iadg99w5 [facility] 5a7 Cardiovasc Established [id number] 05/12 05/12 [facility] ular Patient 18-4fda-9fe /2014 [facility] 2-14034d654 [facility] 97a Cardiovasc Established lid99y0r-1f 05/12 05/12 [facility] ular Patient d2-2r36-l4z /2014 [facility]-4uxde554w [facility] 3a7 Cardiovasc Established s64b3236-b7 05/12 05/12 [facility] Patient a3-451e-8cd /2014 [facility] 3-285c940oc [facility] 0da Cardiovasc Established yb423i32-f1 05/12 05/12 [facility] Patient a0-4ebb-9b8 /2014 [facility] d-[id number] [facility] a0a Cardiovasc Established 2f840r8v-xx 05/12 05/12 [facility] Patient 1f-8u0a-ht8 /2014 [facility] 0-5n4e60161 [facility] 1ea [facility] Inpatient [id number] Mitchell Lily 05/12 05/17 Harley [facility] [id number] [facility] 05/17 05/22 [facility] 1 Atashband /2014 [facility] Cardiovasc Pt in 0r70xx3w-52 05/18 05/18 Cardiova [address] [facility] 8e-432a-864 /2014 [facility] 05/18 d-[id number] [facility] d79 Cardiovasc Pt in 83sl6015-fe 05/18 05/18 [address] [facility] 9f-3pk0-36l /2014 [facility] 05/18 2-3o9175n6j [facility] e58 Cardiovasc Pt in 317j63i7-11 05/18 05/[address] [facility] b3-0g50-3i0 /2014 [facility] 05/18 1-573t5084b [facility] 87e Cardiovasc Pt in 51r57r63-29 05/18 05/[address] [facility] d0-4770-ac3 /2014 [facility] 05/18 c-c7i1i1jeq [facility] e6c Cardiovasc [place] oa720rs1-es 10/18 10/18 Cardiova ular [facility] fe-6yc3-6dv /2015 [facility] 3-b0u3yr8i4 [facility] 6b3 Cardiovasc [place] ho40a2o9-5t 10/18 10/18 Cardiova ular [facility] 28-8zz6-93a /2015 [facility] 4-5j4db1203 [facility] 9b9 Cardiovasc [place] 07o294c0-45 10/18 10/18 Cardiova ular [facility] f9-7i41-e8u /2015 [facility] a-g9147ner8 [facility] b98 Cardiovasc chest pain 5099004y-11 12/27 12/27 Cardiova ular 2a-7c3e-t34 /2015 [facility] c-6e44g32by [facility] 5ea Cardiovasc chest pain 274y1n1y-87 12/27 12/27 Cardi[facility] ular c9-4p16-113 /2015 [facility] 4-0b7f5i7x2 [facility] 536 [facility] [id number] [place] 12/27 12/29 Harley 2 Ajelabi /2015 [facility] Cardiovasc Established 7621ia31-3r 04/10 04/10 Cardi[facility] ular Patient 5d-4bbd-87d /2015 [facility] e-4870q56z6 [facility] bbf [facility] [id number] Janeth 11/02 11/03 Harley 7 [place] /2016 [facility] [id number] Shahzad 05/30 05/30 Harley 3 Lee /2016 [facility] [id number] Vanda 08/06 08/06 Cj Souza 4 Romero /2017 [facility] Procedures Procedure Code Date Perfomer Comments Source CABG x 2 - [facility] Coronary artery [facility] bypass grafts x 2 Excision of [id number] [facility] CABG x 2 - [facility] Coronary artery bypass grafts x 2 Excision of [id number] [facility] gallbladder Angioplasty [id number] [facility] [id number] [facility] CABG x 2 - [facility] Coronary artery [place] bypass grafts x 2 Excision of [id number] [facility]
--- OUTSIDE RECORDS SUMMARY | 2018-09-19 07:48 | XMS REPORT | CCD ---
:1935 Author Organization [facility] Care Team Providers Name Role Phone [...] PO, Drug 06/28/2011 06/29/2011 Discontinued Form: TAB, [id number], Start date: 06/28/11 6:00:00, Duration: 4 doses [...] based on the clinical recommendations of the [place] [employer].HEMATOLOGY Most recent to oldest [Reference [...]
--- OUTSIDE RECORDS SUMMARY | 2018-09-19 07:49 | XMS REPORT ---
:1935 Author Organization [employer] Care Team Providers Name Role Phone PHYLLIS WHITTINGTON Provider Role Unavailable Allergies, Adverse Reactions, Alerts Substance Reaction Event Type N.K.D.A. 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 Assessment Presence of coronary angioplasty Z95.5 Active implant and graft Problem 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 Problem Presence of automatic (implantable) Z95.810 Active cardiac defibrillator Problem Presence of coronary angioplasty Z95.5 Active implant and graft Problem Hyperlipidemia, unspecified E78.5 Active Problem Hypothyroidism, unspecified E03.9 Active Problem 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 Problem 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 Assessment 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 Assessment Hyperlipidemia, unspecified E78.5 Active Assessment 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 Medications Medication Code System Code Instructions Start Date End Date Status Dosage spironolactone NDC 54274 25 mg orally bid Active 1 tab(s) Glumetza NDC 88763 500 mg orally bid Active 1 tab(s) clopidogrel NDC 02262 75 mg orally once Active 1 tab(s) a day Synthroid NDC 2205 200 mcg (0.2 mg) Active 1 tab(s) orally once a day carvedilol NDC 25284 3.125 mg orally 2 Active 2 tab(s) times a day glimepiride NDC 13602 1 mg orally bid Active 1 tab(s) atorvastatin NDC 04852 10 mg orally once Active 1 tab(s) a day (at bedtime) tamsulosin NDC 31038 0.4 mg orally Active 1 cap(s) once a day furosemide NDC 84086 40 mg orally once Active 1 tab(s) a day ASA NDC 0 81mg once a day Active 1 tab(s) Prilosec NDC 363 20 mg orally once Active 1 cap(s) a day Ranexa NDC 46871 1000 mg orally 2 Active 1 tab(s) times a day nitroglycerin NDC 71972 0.4 mg Active 1 tab(s) sublingually every 5 minutes losartan NDC 62663 50 mg orally once Active 1 tab(s) a day Vital Signs Date/Time: Jun 19, 2016 Blood Pressure Systolic 110 mm Hg BMI 30.66 Index Height 66 in Blood Pressure Diastolic 50 mm Hg Results No Known Results Summary Purpose [employer] Submission
--- OUTSIDE RECORDS SUMMARY | 2018-09-19 07:49 | XMS REPORT ---
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
--- OUTSIDE RECORDS SUMMARY | 2018-09-19 07:49 | XMS REPORT ---
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
--- OUTSIDE RECORDS SUMMARY | 2018-09-19 07:50 | XMS REPORT ---
:1935 Author Organization [employer] Care Team Providers Name Role Phone PHYLLIS WHITTINGTON Provider Role Unavailable Allergies, Adverse Reactions, Alerts Substance Reaction Event Type N.K.D.A. 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 Assessment 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 Problem Presence of automatic (implantable) Z95.810 Active cardiac defibrillator Medications Medication Code Code Instructions Start End Status Dosage System Date Date losartan [facility] 54847429202 50 mg orally Active 1 tab(s) once a day clopidogrel [facility] 92752790774 75 mg orally Active 1 tab(s) once a day nitroglycerin [facility] 97575928703 0.4 mg Active 1 tab(s) sublingually every 5 minutes baclofen [facility] 38837960168 10 mg orally Active 1 tab(s) bid glimepiride [facility] 39161266301 1 mg orally Active 1 tab(s) once aday spironolactone [facility] 62007278266 25 mg orally Active 1 tab(s) bid furosemide [facility] 65984264212 40 mg orally Active 1 tab(s) once a day Glumetza [facility] 87267879547 500 mg orally Active 1 tab(s) bid carvedilol [facility] 51511897652 6.25 orally 2 Active 1 tab(s) times a day Ranexa [facility] 36672885879 1000 mg orally Active 1 tab(s) 2 times a day omeprazole [facility] 50188950624 20 mg orally Active 1 cap(s) once a day Prilosec [facility] 79461947259 20 mg orally Active 1 cap(s) once a day Synthroid [facility] 56063324386 200 mcg (0.2 Active 1 tab(s) mg) orally once a day hydralazine [facility] 55249592494 25 mg orally 4 Active 1 tab(s) times a day Lasix [facility] 12172992539 40 mg orally Ricarda Active 1 tab(s) once a day 2016 ASA [facility] 40186361197 81mg once a Active 1 tab(s) day tamsulosin [facility] 33714971753 0.4 mg orally Active 1 cap(s) once a day isosorbide [facility] 98323514602 30 mg orally Active 1 tab(s) dinitrate every 8 hrs Vital Signs Date/Time: September 25, 2016 Blood Pressure Systolic 122 mm Hg BMI 30.02 Index Height 66 in Blood Pressure Diastolic 50 mm Hg Results No Known Results Summary Purpose [employer]ClinicalWorks Submission
--- OUTSIDE RECORDS SUMMARY | 2018-09-19 07:50 | XMS REPORT ---
[...] Active implant and graft Medications Medication Code Code Instructions Start End Date Status Dosage System Date nitroglycerin [facility] 93486212799 0.4 mg Active 1 tab(s) sublingually every 5 minutes up to 3 doses as needed for chest pain Results No Known Results Summary Purpose eClinicalWorks Submission
--- OUTSIDE RECORDS SUMMARY | 2018-09-19 07:50 | XMS REPORT ---
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
--- OUTSIDE RECORDS SUMMARY | 2018-09-19 07:50 | XMS REPORT ---
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
--- OUTSIDE RECORDS SUMMARY | 2018-09-19 07:50 | XMS REPORT ---
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
--- OUTSIDE RECORDS SUMMARY | 2018-09-19 07:50 | XMS REPORT ---
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
--- OUTSIDE RECORDS SUMMARY | 2018-09-19 07:50 | XMS REPORT ---
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
--- OUTSIDE RECORDS SUMMARY | 2018-09-19 07:50 | XMS REPORT ---
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
--- OUTSIDE RECORDS SUMMARY | 2018-09-19 07:50 | XMS REPORT ---
[...] Medications Results No Known Results Summary Purpose [employer] Submission
--- OUTSIDE RECORDS SUMMARY | 2018-09-19 07:50 | XMS REPORT ---
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
--- OUTSIDE RECORDS SUMMARY | 2018-09-19 07:50 | XMS REPORT ---
:1935 Author Organization eClinicalWorks Care Team Providers Name Role Phone PHYLLIS WHITTINGTON Provider Role Unavailable Allergies, Adverse Reactions, Alerts Substance Reaction Event Type N.K.D.A. 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 Assessment 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 Problem Presence of automatic (implantable) Z95.810 Active cardiac defibrillator Medications Medication Code Code Instructions Start End Status Dosage System Date Date nitroglycerin [facility] 19064107933 0.4 mg Active 1 tab(s) sublingually every 5 minutes baclofen [facility] 11781783353 10 mg orally Active 1 tab(s) bid tamsulosin [facility] 36405664104 0.4 mg orally Active 1 cap(s) once a day ASA [facility] 83795837368 81mg once a Active 1 tab(s) day losartan [facility] 77369081511 50 mg orally Active 1 tab(s) once a day spironolactone [facility] 87390510412 25 mg orally Active 1 tab(s) bid Prilosec [facility] 04614583973 20 mg orally Active 1 cap(s) once a day glimepiride [facility] 63264492082 1 mg orally bid Active 1 tab(s) clopidogrel [facility] 09788816677 75 mg orally Active 1 tab(s) once a day furosemide [place] 38635750496 40 mg orally Active 1 tab(s) once a day carvedilol [facility] 00642528439 6.25 orally 2 Active 1 tab(s) times a day Glumetza [facility] 81372581937 500 mg orally Active 1 tab(s) bid isosorbide [facility] 78986067655 30 mg orally Active 1 tab(s) dinitrate every 8 hrs Synthroid [facility] 77240639438 200 mcg (0.2 Active 1 tab(s) mg) orally once a day hydralazine [facility] 88094173149 25 mg orally 4 Active 1 tab(s) times a day Ranexa [facility] 07566825414 1000 mg orally Active 1 tab(s) 2 times a day omeprazole [facility] 06884283240 20 mg orally Active 1 cap(s) once a day Vital Signs Date/Time: September 03, 2016 Blood Pressure Systolic 136 mm Hg BMI 29.53 Index Height 66 in Blood Pressure Diastolic 60 mm Hg Results No Known Results Summary Purpose eClinicalWorks Submission
--- OUTSIDE RECORDS SUMMARY | 2018-09-19 07:50 | XMS REPORT ---
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
--- OUTSIDE RECORDS SUMMARY | 2018-09-19 07:51 | XMS REPORT ---
[...] Assessment 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 [place] [...] End Status Dosage System Date Date clopidogrel [facility] 05152970977 75 mg orally Active 1 tab(s) once a day furosemide [facility] 11229840388 40 mg orally Active 1 tab(s) bid Synthroid [facility] 49883021196 200 mcg (0.2 Active 1 tab(s) mg) orally once a day nitroglycerin [facility] 21289365000 0.4 mg Active 1 tab(s) sublingually every 5 minutes spironolactone [facility] 03330298602 25 mg orally Active 1 tab(s) once a day ivabradine [facility] 27602007614 5 mg orally 2 Active 1 tab(s) times a day (with meals) omeprazole [facility] 94221684288 20 mg orally Active 1 cap(s) once a day Toprol XL [facility] 61648785455 12.5 mg orally Active 1/2ab(s) once a day Ranexa [facility] 97367621817 1000 mg orally Active 1 tab(s) 2 times a day glimepiride [facility] 59051149615 1 mg orally bid Active 1 tab(s) isosorbide [facility] 42256020340 10 mg orally 2 Active 1 tab(s) dinitrate times a day tamsulosin [facility] 68066334560 0.4 mg orally Active 1 cap(s) once a day ASA ND 36133089107 81mg once a Active 1 tab(s) day Atorvastatin [place] 51445498745 40 mg orally November 15, Active 1 tab(s) Calcium once a day 2016 Vital Signs Date/Time: December 03, 2016 Blood Pressure Systolic 110 mm Hg BMI 29.86 Index Height 66 in Blood Pressure Diastolic 50 mm Hg Results No Known Results Summary Purpose eClinicalWorks Submission
--- OUTSIDE RECORDS SUMMARY | 2018-09-19 07:51 | XMS REPORT ---
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
--- OUTSIDE RECORDS SUMMARY | 2018-09-19 07:51 | XMS REPORT ---
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
--- OUTSIDE RECORDS SUMMARY | 2018-09-19 07:51 | XMS REPORT ---
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
--- OUTSIDE RECORDS SUMMARY | 2018-09-19 07:51 | XMS REPORT ---
:1935 Author Organization eClinicalWorks Care Team Providers Name Role Phone CYN WHITTINGTONY Provider Role Unavailable Allergies, Adverse Reactions, Alerts Substance Reaction Event Type N.K.D.A. Info Not Available Non Drug Allergy Encounters Encounter Location Date Established Patient [facility], [facility] December 17, 2013 STRESS TEST [facility], [facility] December 17, 2013 Established Patient [facility], [facility] Mar 19, 2014 Problems Problem Type Condition ICD-9 Code Onset Dates Condition Status Assessment 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 Active [place] vessel Problem Diabetes mellitus type II 250.00 Active Problem Hypertension Heart Disease - w/o 402.10 Active CHF* Problem 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 Problem Chronic systolic heart failure 428.22 Active Problem S/P Automatic Defibrillator V45.02 Active Problem 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 Active [place] vessel Problem 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 Problem Hypercholesterolemia NOS 272.4 Active Problem Hypothyroidism (acquired) 244.9 Active Assessment Hypertension Heart Disease - w/o 402.10 Active CHF* Assessment S/P Automatic Defibrillator V45.02 Active Assessment Chronic systolic heart failure 428.22 Active Assessment 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 Medications Medication Code System Code Instructions Start End Date Status Dosage Date levothyroxine [facility] 71861 200 mcg orally Active 1 cap(s) once a day nitroglycerin [facility] 40260 0.4 mg November 26, Active 1 tab(s) sublingually every 2013 5 minutes gemfibrozil [facility] 70723 600 mg orally 2 Active 1 tab(s) times a day omeprazole [facility] 13280 20 mg orally once Active 1 tab(s) a day losartan [facility] 20644 50 mg orally once Active 1 tab(s) a day Crestor [facility] 50332 10 mg orally once Jan 27, Active 1 tab(s) a day (at bedtime) 2012 spironolactone [facility] 60568 25 mg orally 3 Active 1 tab(s) times a day tamsulosin [facility] 10050 0.4 mg orally bid Active 1 cap(s) ASA Unknown 0 81mg once a day Active 1 tab(s) Lantus [facility] 44608 100 units/mL Active 34 units at subcutaneously bedtime furosemide [facility] 55802 20 mg orally once Active 3 tsa a day Ranexa [facility] 21551 1000 mg orally 2 Active 1 tab(s) [...]
--- OUTSIDE RECORDS SUMMARY | 2018-09-19 07:51 | XMS REPORT ---
:1935 Author Organization eClinicalWorks Care Team Providers Name Role Phone PHYLLIS WHITTINGTON Provider Role Unavailable Allergies, Adverse Reactions, Alerts Substance Reaction Event Type N.K.D.A. 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 Assessment 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 Assessment Paroxysmal atrial fibrillation I48.0 Active Assessment Presence of automatic (implantable) Z95.810 Active cardiac defibrillator Problem Presence of automatic (implantable) Z95.810 Active cardiac defibrillator Medications Medication Code Code Instructions Start End Status Dosage System Date Date Toprol XL [facility] 44911398615 25 mg orally Active 1 tab(s) bid Lasix [facility] 30572791430 40 mg orally September Active 1 tab(s) once a day 2016 spironolactone [facility] 32837619194 25 mg orally Active 1 tab(s) once a day apixaban [facility] 92092210903 2.5 mg orally 2 Active 1 tab(s) times a day tamsulosin [facility] 12161123124 0.4 mg orally Active 1 cap(s) once a day nitroglycerin [facility] 42021048987 0.4 mg Active 1 tab(s) sublingually every 5 minutes ASA [facility] 17900916946 81mg once a Active 1 tab(s) day clopidogrel [facility] 15441174703 75 mg orally Active 1 tab(s) once a day Prilosec [facility] 65115568108 20 mg orally Active 1 cap(s) once a day Synthroid [facility] 03290477649 200 mcg (0.2 Active 1 tab(s) mg) orally once a day glimepiride [facility] 50347240241 1 mg orally Active 1 tab(s) once aday losartan [facility] 46038656767 50 mg orally Active 1 tab(s) once a day Lipitor [facility] 05923422182 10 mg orally Active 1 tab(s) once a day Ranexa [facility] 26911333029 1000 mg orally Active 1 tab(s) 2 times a day Atorvastatin ND 82910292382 20 mg orally November 15, Active 1 tab(s) Calcium once a day 2016 Vital Signs Date/Time: November 15, 2016 Blood Pressure Systolic 100 mm Hg BMI 30.02 Index Height 66 in Blood Pressure Diastolic 50 mm Hg Results No Known Results Summary Purpose eClinicalWorks Submission
--- OUTSIDE RECORDS SUMMARY | 2018-09-19 07:51 | XMS REPORT ---
:1935 Author Organization eClinicalWorks Care Team Providers Name Role Phone PHYLLIS WHITTINGTON Provider Role Unavailable Encounters Encounter Location Date Established Patient [facility], [facility] December 17, 2013 STRESS TEST [facility], [facility] December 17, 2013 Established Patient [facility], [facility] Mar 19, 2014 Problems Problem Type Condition ICD-9 Code Onset Dates Condition Status Assessment 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 Active [place] vessel Problem Diabetes mellitus type II 250.00 Active Problem Hypertension Heart Disease - w/o 402.10 Active CHF* Problem 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 Problem Chronic systolic heart failure 428.22 Active Problem S/P Automatic Defibrillator V45.02 Active Problem 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 Active [place] vessel Problem 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 Problem Hypercholesterolemia NOS 272.4 Active Problem Hypothyroidism (acquired) 244.9 Active Medications Medication Code System Code Instructions Start End Date Status Dosage Date Humalog [facility] 6127 100 units/mL Active 12 units subcutaneously before meals levothyroxine [facility] 14675 200 mcg orally Active 1 cap(s) once a day Ranexa M[facility] 79235 1000 mg orally 2 Active 1 tab(s) times a day nitroglycerin [facility] 99348 0.4 mg/hr Active 1 PATCH transdermally prn nitroglycerin [facility] 64875 0.4 mg November 26, Active 1 tab(s) sublingually every 2013 5 minutes losartan [facility] 43678 50 mg orally once Active 1 tab(s) a day omeprazole [facility] 76624 20 mg orally once Active 1 tab(s) a day Crestor [facility] 65906 10 mg orally once Jan 27, Active 1 tab(s) a day (at bedtime) 2012 ASA Unknown 0 81mg once a day Active 1 tab(s) tamsulosin [facility] 55174 0.4 mg orally once Active 1 cap(s) a day Coreg [facility] 48730 12.5 mg orally 2 Active 1/2 tab times a day spironolactone [facility] 23302 25 mg orally 3 Active 1 tab(s) times a day Lantus [facility] 19211 100 units/mL Active 34 units at subcutaneously bedtime gemfibrozil [facility] 71624 600 mg orally 2 Active 1 tab(s) times a day furosemide [facility] 14842 20 mg orally once Active 2 tabs a day Social History Social History Element Qualifiers Date Reported Caffeine: yes. 2 cups of coffee a day Mar 19, 2014 Tobacco Use: . Status: Former Smoker quit 22 yrs ago Mar 19, 2014 Alcohol: no. Mar 19, 2014 Summary Purpose eClinicalWorks Submission
--- OUTSIDE RECORDS SUMMARY | 2018-09-19 07:51 | XMS REPORT ---
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 [place] coronary artery with other forms of angina [...] Start End Status Dosage System Date Date tamsulosin [facility] 83757252810 0.4 mg orally Active 1 cap(s) once a day ASA [facility] 00107277198 81mg once a Active 1 tab(s) day lisinopril [facility] 86514851748 5 mg orally January 07, Inactive 1 tab(s) once a day 2016 isosorbide [facility] 89706998685 10 mg orally 2 Active 1 tab(s) dinitrate times a day Synthroid [facility] 74584937004 200 mcg (0.2 Active 1 tab(s) mg) orally once a day losartan [facility] 42760060852 50 mg orally January 07, Active 1 tab(s) once a day 2016 Ranexa [facility] 24031681259 1000 mg orally Active 1 tab(s) 2 times a day clopidogrel [facility] 92027070808 75 mg orally Active 1 tab(s) once a day spironolactone [facility] 22870435965 25 mg orally Active 1 tab(s) once a day ivabradine [facility] 55184598740 5 mg orally 2 Active 1 tab(s) times a day (with meals) omeprazole [facility] 51456768258 20 mg orally Active 1 cap(s) once a day furosemide [facility] 59228138066 40 mg orally Active 1 tab(s) bid glimepiride [facility] 37029760859 1 mg orally bid Active 1 tab(s) nitroglycerin [facility] 12745581465 0.4 mg Active 1 tab(s) sublingually every 5 minutes Toprol XL [facility] 18170244922 12.5 mg orally Active 1/2ab(s) once a day Atorvastatin [facility] 03298696810 40 mg orally November 15, Active 1 tab(s) Calcium once a day 2017 Results No Known Results Summary Purpose eClinicalWorks Submission
--- OUTSIDE RECORDS SUMMARY | 2018-09-19 07:52 | XMS REPORT ---
:1935 Author Organization eClinicalWorks Care Team Providers Name Role Phone PHYLLIS WHITTINGTON Provider Role Unavailable Encounters Encounter Location Date Established Patient [facility], [facility] Jun 25, 2014 ranexa refill [facility], [facility] Aug 06, 2014 Unknown [facility], [facility] August 18, 2014 chest pain. 10/06 [facility], [facility] October 07, 2014 Established Patient [facility], [facility] December 17, 2013 STRESS TEST [facility], [facility] December 17, 2013 Established Patient [facility], [facility] Mar 19, 2014 Established Patient [facility], [facility] May 12, 2015 Established Patient [facility], [facility] Jan 18, 2015 possible heart attack [facility], [facility] May 11, 2015 chest pain [facility], [facility] December 28, 2015 Pt in [facility] 05/18 [facility], [facility] May 18, 2015 Ran[place] [facility], [facility] October 19, 2015 Problems Problem Type Condition ICD-9 Code Onset Dates Condition Status Problem Presence 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 Problem 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 [place] coronary artery with other forms of [...]
--- OUTSIDE RECORDS SUMMARY | 2018-09-19 07:52 | XMS REPORT ---
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 Problem 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 Problem Hyperlipidemia, unspecified E78.5 Active Medications Medication Code System Code Instructions Start End Date Status Dosage Date nitroglycerin MULTUM 37525 0.4 mg November 26, Active 1 tab(s) sublingually every 2013 5 minutes omeprazole MULTUM 42357 20 mg orally once Active 1 tab(s) a day tamsulosin MULTUM 92848 0.4 mg orally bid Active 1 cap(s) spironolactone MULTUM 35089 25 mg orally 3 Active 1 tab(s) times a day levothyroxine MULTUM 20969 112 mcg orally Active 2 caps once a day carvedilol MULTUM 80139 12.5 mg orally 2 Active 1 tab(s) times a day furosemide MULTUM 51827 40 mg orally once Jun 26, Active 1 tab(s) a day 2014 Crestor MULTUM 77365 10 mg orally once Jan 27, Active 1 tab(s) a day (at bedtime) 2012 [place] MULTUM 16723 1000 mg orally 2 Active 1 tab(s) times a day gemfibrozil MULTUM 26427 600 mg orally 2 Active 1 tab(s) times a day losartan MULTUM 10339 50 mg orally once Active 1 tab(s) a day Lantus MULTUM 67065 100 units/mL Active 34 units at subcutaneously [...]
--- OUTSIDE RECORDS SUMMARY | 2018-09-19 07:52 | XMS REPORT ---
:1935 Author Organization eClinicalWorks Care Team Providers Name Role Phone CYN [place] Provider Role Unavailable Encounters Encounter Location Date Established Patient [facility] Jun 25, 2014 [place] refill [facility] Aug 06, 2014 Unknown [facility] August 18, 2014 chest pain. 10/06 [facility] October 07, 2014 Established Patient [facility] December 17, 2013 Pt in [facility] 05/18 [facility] May 18, 2015 STRESS TEST [facility], [facility] December 17, 2013 [place] [facility] October 19, 2015 Established Patient [facility] Mar 19, 2014 Established Patient [facility] May 12, 2015 Established Patient [facility] Jan 18, 2015 possible heart attack [facility] May 11, 2015 Problems Problem Type Condition ICD-9 Code Onset Dates Condition Status Problem Presence 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 Problem 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 [place] coronary artery with other forms of angina [...]
--- OUTSIDE RECORDS SUMMARY | 2018-09-19 07:52 | XMS REPORT ---
:1935 Author Organization eClinicalWorks Care Team Providers Name Role Phone PHYLLIS [place] Provider Role Unavailable Encounters Encounter Location Date Established Patient [facility], [facility] Jun 25, 2014 [place] refill [facility] Aug 06, 2014 Unknown [facility], [facility] August 18, 2014 chest pain. 10/06 [facility] October 07, 2014 Established Patient [facility], [facility] December 17, 2013 STRESS TEST [facility], [facility] December 17, 2013 Established Patient [facility] Mar 19, 2014 Established Patient [facility] May 12, 2015 Established Patient [facility] Jan 18, 2015 possible heart attack [facility] May 11, 2015 Problems Problem Type Condition ICD-9 Code Onset Dates Condition Status Problem 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 [place] coronary artery with other forms of angina [...]
--- OUTSIDE RECORDS SUMMARY | 2018-09-19 07:52 | XMS REPORT ---
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 Assessment Presence of coronary angioplasty Z95.5 Active implant and graft Problem 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 Problem Presence 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 Problem Presence of coronary angioplasty Z95.5 Active implant and graft Problem Hyperlipidemia, unspecified E78.5 Active Problem Hypothyroidism, unspecified E03.9 Active Problem 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 Problem 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 Assessment 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 Assessment Hyperlipidemia, unspecified E78.5 Active Assessment 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 Medications Medication Code System Code Instructions Start Date End Date Status Dosage carvedilol MULTUM 33465 3.125 orally 2 Active 2 tab(s) times a day tamsulosin MULTUM 89785 0.4 mg orally Active 1 cap(s) once a day nitroglycerin MULTUM 02913 0.4 mg Active 1 tab(s) sublingually every 5 minutes losartan MULTUM 18730 50 mg orally once Active 1 tab(s) a day Glumetza MULTUM 80084 500 mg orally 2 Active 1 tab(s) times a day ASA Unknown 0 81mg once a day Active 1 tab(s) clopidogrel MULTUM 85929 75 mg orally once Active 1 tab(s) a day Prilosec MULTUM 363 20 mg orally once Active 1 cap(s) a day Synthroid MULTUM 2205 200 mcg (0.2 mg) Active 1 tab(s) orally once a day spironolactone MULTUM 52560 25 mg orally 3 Active 1 tab(s) times a day furosemide MULTUM 63107 40 mg orally once Active 1 tab(s) a day atorvastatin MULTUM 99605 10 mg orally once Active 1 tab(s) a day (at bedtime) glimepiride MULTUM 51203 1 mg orally bid Active 1 tab(s) [place] MULTUM 90387 1000 mg orally 2 Active 1 tab(s) [...]
--- OUTSIDE RECORDS SUMMARY | 2018-09-19 07:52 | XMS REPORT ---
[...] Association, [facility] December 17, 2013 Pt in [facility] 05/18 [facility], [facility] May 18, 2015 STRESS TEST [facility], [facility] [...] Problem 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 [place] coronary artery with other forms of angina [...]
--- OUTSIDE RECORDS SUMMARY | 2018-09-19 07:52 | XMS REPORT ---
:1935 Author Organization eClinicalWorks Care Team Providers Name Role Phone [place] Provider Role Unavailable Allergies, Adverse Reactions, Alerts Substance Reaction Event Type N.K.D.A. Info Not Available Non Drug Allergy Encounters Encounter Location Date Established Patient [facility], [facility] December 17, 2013 STRESS TEST [facility], [facility] December 17, 2013 Established Patient [facility], [facility] Mar 19, 2014 Problems Problem Type Condition ICD-9 Code Onset Dates Condition Status Assessment 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 Active [place] vessel Problem Diabetes mellitus type II 250.00 Active Problem Hypertension Heart Disease - w/o 402.10 Active CHF* Problem 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 Problem Chronic systolic heart failure 428.22 Active Problem S/P Automatic Defibrillator V45.02 Active Problem 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 Active [place] vessel Problem 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 Problem Hypercholesterolemia NOS 272.4 Active Problem Hypothyroidism (acquired) 244.9 Active Assessment S/P Automatic Defibrillator V45.02 Active Assessment Chronic systolic heart failure 428.22 Active Assessment 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 Medications Medication Code System Code Instructions Start End Date Status Dosage Date Humalog MULTUM 6127 100 units/mL Active 12 units subcutaneously before meals spironolactone MULTUM 74759 25 mg orally 3 Active 1 tab(s) times a day Lantus MULTUM 48412 100 units/mL Active 34 units at subcutaneously bedtime omeprazole MULTUM 83524 20 mg orally once Active 1 tab(s) a day levothyroxine MULTUM 39951 112 mcg orally Active 2 caps once a day Crestor MULTUM 58206 10 mg orally once Jan 27, Active 1 tab(s) a day (at bedtime) 2012 Lyrica MULTUM 91683 50 mg orally 2 Active 1 cap(s) times a day ASA Unknown 0 81mg once a day Active 1 tab(s) furosemide MULTUM 73516 20 mg orally tid Active 3 tsa tamsulosin MULTUM 41491 0.4 mg orally bid Active 1 cap(s) nitroglycerin MULTUM 45264 0.4 mg November 26 1 tab(s) sublingually every 2013 5 minutes losartan MULTUM 46902 50 mg orally once Active 1 tab(s) a day [place] MULTUM 09402 1000 mg orally 2 Active 1 tab(s) times a day gemfibrozil MULTUM 19645 600 mg orally 2 Active 1 tab(s) [...]
--- OUTSIDE RECORDS SUMMARY | 2018-09-19 07:52 | XMS REPORT ---
:1935 Author Organization eClinicalWorks Care Team Providers Name Role Phone [place] PHYLLIS Provider Role Unavailable Allergies, Adverse Reactions, Alerts Substance Reaction Event Type N.K.D.A. Info Not Available Non Drug Allergy Encounters Encounter Location Date Established Patient [facility], [facility] Jun 25, 2014 Established Patient [facility], [facility] December 17, 2013 STRESS TEST [facility], [facility] December 17, 2013 Established Patient [facility], [facility] Mar 19, 2014 Problems Problem Type Condition ICD-9 Code Onset Dates Condition Status Assessment 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 Active [place] vessel Problem Diabetes mellitus type II 250.00 Active Problem Hypertension Heart Disease - w/o 402.10 Active CHF* Problem 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 Problem Chronic systolic heart failure 428.22 Active Problem S/P Automatic Defibrillator V45.02 Active Problem 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 Active [place] vessel Problem 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 Problem Hypercholesterolemia NOS 272.4 Active Problem Hypothyroidism (acquired) 244.9 Active Assessment S/P Automatic Defibrillator V45.02 Active Assessment Chronic systolic heart failure 428.22 Active Assessment 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 Medications Medication Code System Code Instructions Start End Date Status Dosage Date losartan MULTUM 44063 50 mg orally once Active 1 tab(s) a day nitroglycerin MULTUM 51076 0.4 mg November 26, Active 1 tab(s) sublingually every 2013 5 minutes Lantus MULTUM 86031 100 units/mL Active 34 units at subcutaneously bedtime Crestor MULTUM 06565 10 mg orally once Jan 27, Active 1 tab(s) a day (at bedtime) 2012 levothyroxine MULTUM 42121 112 mcg orally Active 2 caps once a day spironolactone MULTUM 69335 25 mg orally 3 Active 1 tab(s) times a day carvedilol MULTUM 50842 12.5 mg orally 2 Active 1 tab(s) times a day tamsulosin MULTUM 17412 0.4 mg orally bid Active 1 cap(s) gemfibrozil MULTUM 13915 600 mg orally 2 Active 1 tab(s) times a day ASA Unknown 0 81mg once a day Active 1 tab(s) omeprazole MULTUM 24677 20 mg orally once Active 1 tab(s) a day furosemide MULTUM 00493 40 mg orally once Jun 26, Active 1 tab(s) a day 2014 [place] MULTUM 43102 1000 mg orally 2 Active 1 tab(s) [...]
--- OUTSIDE RECORDS SUMMARY | 2018-09-19 07:53 | XMS REPORT ---
:1935 [facility] Address [address] [place] [address] Care Team Providers Name Role Phone KARI DUNCAN Unavailable Unavailable Problems This patient has no known problems. Allergies, Adverse Reactions, Alerts This patient has no known allergies or adverse reactions. Medications This patient has no known medications. Results Test Description Test Time Test Comments Text Results Atomic Results Result Comments PROTHROMBIN TIME/INR 2017-12-20 07:35:00 Test Item Value Reference Range Comments PROTIME (BEAKER) (test karj=157) 15.1 seconds 11.7-14.7 INR (BEAKER) (test dbod=103) 1.2 <=5.9 RECOMMENDED COUMADIN/WARFARIN INR THERAPY RANGESSTANDARD DOSE: 2.0 - 3.0 Includes: PROPHYLAXIS forvenous thrombosis, systemic embolization; TREATMENT for venous thrombosis and/or pulmonary embolus.HIGH RISK: Target INR is 2.5-3.5 for patients with mechanical heart valves.BASIC METABOLIC [id number] 07:33: 00 Test Item Value Reference Range Comments SODIUM (BEAKER) (test 142 meq/L 136-145 lhpt=940) POTASSIUM (BEAKER) (test 4.1 meq/L 3.5-5.1 ulva=606) CHLORIDE (BEAKER) (test 105 meq/L 98-107 aufv=807) CO2 (BEAKER) (test 28 meq/L 22-29 dalt=052) BLOOD UREA NITROGEN 30 mg/dL 7-21 (BEAKER) (test ykyp=206) CREATININE (BEAKER) (test 1.90 mg/dL 0.57-1.25 mbzs=334) GLUCOSE RANDOM (BEAKER) 118 mg/dL 70-105 (test jgck=296) CALCIUM (BEAKER) (test 9.1 mg/dL 8.4-10.2 bdyl=005) EGFR (BEAKER) (test 34 mL/min/1.73 sq m ESTIMATED GFR IS NOT napk=6491) ACCURATE CREATININE CLEARANCE IN PREDICTING GLOMERULAR FILTRATION RATE. ESTIMATED GFR IS NOT APPLICABLE FOR DIALYSIS PATIENTS. CBC W/PLT COUNT & AUTO [id number] 07:16:00 Test Item Value Reference Range Comments WHITE BLOOD CELL COUNT (BEAKER) (test mndo=736) 4.6 K/ L 3.5-10.5 RED BLOOD CELL COUNT (BEAKER) (test ajsw=665) 3.33 M/ L 4.63-6.08 HEMOGLOBIN (BEAKER) (test ohne=088) 10.1 GM/DL 13.7-17.5 HEMATOCRIT (BEAKER) (test ipqn=891) 31.9 % 40.1-51.0 MEAN CORPUSCULAR VOLUME (BEAKER) (test ifgx=086) 95.8 fL 79.0-92.2 MEAN CORPUSCULAR HEMOGLOBIN (BEAKER) (test 30.3 pg 25.7-32.2 ptwb=527) MEAN CORPUSCULAR HEMOGLOBIN CONC (BEAKER) (test 31.7 GM/DL 32.3-36.5 ovcy=980) RED CELL DISTRIBUTION WIDTH (BEAKER) (test 17.4 % 11.6-14.4 zmzx=931) PLATELET COUNT (BEAKER) (test vdop=642) 99 K/CU MM 150-450 MEAN PLATELET VOLUME (BEAKER) (test qmxm=418) 11.0 fL 9.4-12.4 NUCLEATED RED BLOOD CELLS (BEAKER) (test 0 /100 WBC 0-0 euya=151) NEUTROPHILS RELATIVE PERCENT (BEAKER) (test 68 % sfjf=718) LYMPHOCYTES RELATIVE PERCENT (BEAKER) (test 20 % swyr=286) MONOCYTES RELATIVE PERCENT (BEAKER) (test 9 % zwdm=241) EOSINOPHILS RELATIVE PERCENT (BEAKER) (test 2 % hxkk=442) BASOPHILS RELATIVE PERCENT (BEAKER) (test 0 % zkqt=942) NEUTROPHILS ABSOLUTE COUNT (BEAKER) (test 3.12 K/ L 1.78-5.38 dqyc=103) LYMPHOCYTES ABSOLUTE COUNT (BEAKER) (test 0.93 K/ L 1.32-3.57 zqlm=821) MONOCYTES ABSOLUTE COUNT (BEAKER) (test yeof=450) 0.40 K/ L 0.30-0.82 EOSINOPHILS ABSOLUTE COUNT (BEAKER) (test 0.09 K/ L 0.04-0.54 scsj=511) BASOPHILS ABSOLUTE COUNT (BEAKER) (test duwr=255) 0.01 K/ L 0.01-0.08 IMMATURE GRANULOCYTES-RELATIVE PERCENT (BEAKER) 0 % 0-1 (test azjs=1052)
[2018-09-19] MEDS ORDERED: FUROSEMIDE 40 MG/4 ML VIAL ONE (08:23)
[2018-09-19] MEDS ORDERED: CEFTRIAXONE/SWI 1gm 1 GM/10 ML SYR ONE (08:23)
[2018-09-19 08:29] LABS: Absolute Lymphocytes (CBC) 1.1 K/uL (0.7-4.9); Absolute Monocytes 0.4 K/uL (0.1-1.3); Absolute Neutrophil 4.9 K/uL (1.8-8.0); Basophils % 0.3 % (0-1.3); Hematocrit 33.3 % (39.6-49.0); Lymphocytes % 17.1 % (15.3-44.8); MPV 9.4 fL (7.6-11.3); Monocytes % 6.6 % (3.3-12.3); RBC Red Blood Cell Count 3.25 M/uL (4.33-5.43)
[2018-09-19 08:35] LABS: Protime INR 1.1
[2018-09-19 08:52] LABS: Albumin 3.2 g/dL (3.4-5.0); Bilirubin Direct 0.3 mg/dL (0-0.2); Bilirubin Total 0.7 mg/dL (0.2-1.0); Magnesium 2.2 mg/dL (1.8-2.4); Potassium 4.9 mmol/L (3.5-5.1); Protein, Total 6.8 g/dL (6.4-8.2); Troponin (Emerg Dept Use Only) 0.1 ng/mL (0.0-0.045)
--- NOTE | 2018-09-19 09:10 | ER ---
Nurse's Notes [facility] Name: Blayne Ashford Age: 82 yrs Sex: Male : 1935 Arrival Date: 09/19/2018 Time: 07:29 Bed 8 Private MD: Diagnosis: Influenza due to certain identified influenza viruses-Influenza B;Pneumonia, unspecified organism;Hypoxia;Acute combined systolic (congestive) and diastolic (congestive) heart failure Presentation: 09/19 07:29 Presenting complaint: EMS states: COUGH AND DESAT ON ROOM AIR. Transition of care: bp patient was received from another setting of care (long-term care facility), [facility]. Onset of symptoms is unknown. Risk Assessment: Do you want to hurt yourself or someone else? Patient reports no desire to harm self or others. Initial Sepsis Screen: Does the patient meet any 2 criteria? RR > 20 per min. No. Patient's initial sepsis screen is negative. Does the patient have a suspected source of infection? Yes: Productive cough/pneumonia. Care prior to arrival: Medication(s) given: SOLU-MEDROL 125MG IV initiated. 20 GA, in the left forearm, Glucose check: 184 Med neb given. Oxygen administered. via nasal cannula. 07:29 Method Of Arrival: EMS: [facility] bp 07:29 Acuity: LASHANDA 3 bp Triage Assessment: 07:32 General: Appears in no apparent distress. comfortable, Behavior is calm, cooperative. bp Pain: Denies pain. EENT: No deficits noted. Neuro: Level of Consciousness is awake, alert, obeys commands. Cardiovascular: No deficits noted. Respiratory: Airway is patent the patient has mild shortness of breath. GI: No signs and/or symptoms were reported involving the gastrointestinal system. : No signs and/or symptoms were reported regarding the genitourinary system. Derm: No deficits noted. Musculoskeletal: Circulation, motion, and sensation intact. Range of motion: intact in all extremities. Historical: - Allergies: 07:32 No Known Allergies; bp - Home Meds: 12:33 acetaminophen 325 mg Oral tab 2 tabs as needed [Active]; Aldactone 50 mg Oral tab 1 tab bp 2 times per day [Active]; atorvastatin 40 mg Oral tab 2 tabs nightly [Active]; buspirone 10 mg Oral tab 1 tab daily [Active]; clopidogrel 75 mg Oral tab once daily [Active]; exelon patch 13.3mg/24hrs 1 patch [Active]; glimepiride 2 mg Oral tab once daily [Active]; isosorbide dinitrate 20 mg Oral tab 1 tab 2 times per day [Active]; Januvia 50 mg Oral tab once daily [Active]; lactulose 10 gram/15 mL Oral soln 30 mL nightly for constipation [Active]; Lantus 100 unit/mL Sub-Q soln 10 unit daily [Active]; Lasix 20 mg Oral tab 3 tabs 2 times per day [Active]; levothyroxine 100 mcg tab 2 tabs once daily [Active]; losartan 25 mg Oral tab once daily [Active]; metoprolol succinate 25 mg Oral tab twice a day [Active]; metoprolol tartrate 25 mg Oral tab 1 tab 2 times per day [Active]; Namenda 5 mg Oral tab daily [Active]; omeprazole 20 mg Oral TbEC daily [Active]; [place]a 1,000 mg Oral Tb12 1 tab 2 times per day [Active]; Risperdal 0.25 mg Oral tab daily [Active]; Risperdal 0.5 mg Oral tab nightly [Active]; spironolactone 50 mg Oral tab 1 tab 2 times per day [Active]; tamsulosin 0.4 mg Oral cp24 once daily [Active]; Tradjenta 5 mg Oral tab 1 tab once daily [Active]; Vitamin D2 50,000 unit Oral cap 1 cap once wkly [Active]; Vitamin D3 1,000 unit Oral tab 2 tab daily [Active]; Zofran (as hydrochloride) 4 mg Oral tab as needed [Active]; - PMHx: 07:32 angina pectoris; Atrial Fib; BPH; CAD; Anxiety; CHF; COPD; Dementia; Diabetes - NIDDM; bp HEART FAILURE; Hematuria; Hyperlipidemia; Hypertension; MUSCLE WEAKNESS; Hypothyroidism; Myocardial infarction; Pacemaker; Pneumonia; - Immunization history:: Adult Immunizations up to date. - Social history:: Smoking status: Patient/guardian denies using tobacco. - Ebola Screening: : Patient negative for fever greater than or equal to 101.5 degrees Fahrenheit, and additional compatible Ebola Virus Disease symptoms Patient denies exposure to infectious person Patient denies travel to an Ebola-affected area in the 21 days before illness onset No symptoms or risks identified at this time. Screenin:39 Abuse screen: Denies threats or abuse. Denies injuries from another. Nutritional bp screening: No deficits noted. Tuberculosis screening: No symptoms or risk factors identified. Fall Risk None identified. Assessment: 07:38 General: SEE TRIAGE NOTE. bp 09:30 Reassessment: ALL CURRENT ORDERS COMPLETED. DISPO PENDING. bp Vital Signs: 07:32 BP 144 / 92; Pulse 90; Resp 24; Temp 98.8; Pulse Ox 99% 3 lpm ; Weight 65.77 kg; bp 08:00 BP 148 / 97; Pulse 97; Resp 22; Pulse Ox 100% ; bp 09:00 BP 116 / 58; Pulse 87; Resp 20; Pulse Ox 96% ; bp 10:00 BP 105 / 59; Pulse 83; Resp 22; Pulse Ox 97% ; bp 11:00 BP 127 / 65; Pulse 83; Resp 20; Pulse Ox 99% ; bp 12:00 BP 119 / 62; Pulse 77; Resp 19; Pulse Ox 98% ; bp 13:00 BP 126 / 76; Pulse 66; Resp 18; Pulse Ox 99% ; bp ED Course: 07:29 Patient arrived in ED. bp 07:30 Chan Whitley NP is PHCP. pm1 07:30 Brian Contreras MD is Attending Physician. pm1 07:31 Triage completed. bp 07:32 Arm band placed on. bp 07:39 Patient has correct armband on for positive identification. Placed in gown. Bed in low bp position. Call light in reach. Side rails up X2. 07:39 Maintain EMS IV. Dressing intact. Good blood return noted. Site clean \T\ dry. Gauge \T\ bp site: 20 GAUGE LEFT FA. 07:39 Oxygen administered via a nebulizer mask. bp 07:40 Joe Scanlon, CARLEY is Primary Nurse. bp 08:00 Inserted saline lock: 20 gauge in right forearm, using aseptic technique. Blood bp collected. 08:05 First set of blood cultures drawn by me. kj1 08:11 EKG done, by solar fabrication technician. reviewed by Chan Whitley NP. dt2 08:12 Initial lab(s) drawn, by me, sent to lab. kj1 08:29 XRAY Chest (1 view) In Process Unspecified. EDMS 08:30 X-ray completed. Portable x-ray completed in exam room. jr1 08:40 NT PRO-BNP Sent. bp 08:40 Basic Metabolic Panel Sent. bp 08:59 Oxygen administration via nasal cannula \T\ 3L/min. bp 09:05 Lenka Christensen MD is Hospitalizing Provider. pm1 12:26 No provider procedures requiring assistance completed. Patient admitted, IV remains in bp place. Administered Medications: 08:00 Drug: Lasix 40 mg Route: IVP; Site: right forearm; bp 08:38 Follow up: Response: No adverse reaction bp 08:20 Drug: Rocephin 1 grams Route: IV; Rate: calculated rate; Site: right forearm; bp 08:39 Follow up: IV Status: Completed infusion; IV Intake: 20ml bp 09:05 Drug: Tamiflu 75 mg Route: PO; bp 12:38 Follow up: Response: No adverse reaction bp 09:20 Drug: AZITHromycin 500 mg {Note: RECD FROM PHARMACY.} Route: IVPB; Infused Over: 1 hrs; bp Site: right forearm; 12:39 Follow up: IV Status: Completed infusion; IV Intake: 250ml bp Intake: 08:39 IV: 20ml; Total: 20ml. bp 12:39 IV: 250ml; Total: 270ml. bp Outcome: 09:10 Decision to Hospitalize by Provider. pm1 13:28 Admitted to Med/surg accompanied by tech, via stretcher, room 204, with oxygen, with bp chart, Report called to FADI HOWE 13:28 Condition: stable 13:28 Instructed on the need for admit. 13:48 Patient left the ED. bp Signatures: Dispatcher [employer] EDMS Nae rAaujo jr1 Chan Whitley, EQUIPMENT RECORDS SUPERVISOR EQUIPMENT RECORDS SUPERVISOR pm1 Joe Scanlon, CARLEY RN Kristyn Lizarraga dt2 Shefali Lam kj1
--- NOTE | 2018-09-19 09:11 | EDPHYS ---
Physician Documentation [facility] Name: Blayne Ashford Age: 82 yrs Sex: Male : 1935 Arrival Date: 09/19/2018 Time: 07:29 Bed 8 Private MD: ED Physician Brian Contreras HPI: 09/19 08:00 This 82 yrs old Male presents to ER via EMS with complaints of Hypoxia, pm1 cough, fever. 08:00 The patient has shortness of breath at rest. Onset: The symptoms/episode began/occurred pm1 yesterday. Duration: The symptoms are continuous. The patient's shortness of breath is aggravated by nothing, is alleviated by nebulizer treatment, application of supplemental oxygen, Duoneb and NC 3L at [facility]. Albuterol in route by EMS. Associated signs and symptoms: Pertinent positives: fever, 100.8 at [facility], given Tylenol 650 mg PO at 0530. Severity of symptoms: in the emergency department the symptoms are worse. The patient has not experienced similar symptoms in the past. The patient has been recently seen by a physician: Dr. Seay with similar presenting complaints, X-rays were performed, yesterday. Patient with onset of cough yesterday. This AM patient was found to have a fever of 100.8 with RA saturations of 87-88%. Improved to 91% with 2 L NC, then given Duoneb and improved to 97%. Patient does not normally use oxygen. Given Tylenol 650 mg PO at 0530. Patient with baseline of AAOx1 to person only. Seen by Dr. Diaz 1 week ago. Has had adjustments to his Lasix recently . Historical: - Allergies: 07:32 No Known Allergies; bp - Home Meds: 12:33 acetaminophen 325 mg Oral tab 2 tabs as needed [Active]; Aldactone 50 mg Oral tab 1 tab bp 2 times per day [Active]; atorvastatin 40 mg Oral tab 2 tabs nightly [Active]; buspirone 10 mg Oral tab 1 tab daily [Active]; clopidogrel 75 mg Oral tab once daily [Active]; exelon patch 13.3mg/24hrs 1 patch [Active]; glimepiride 2 mg Oral tab once daily [Active]; isosorbide dinitrate 20 mg Oral tab 1 tab 2 times per day [Active]; Januvia 50 mg Oral tab once daily [Active]; lactulose 10 gram/15 mL Oral soln 30 mL nightly for constipation [Active]; Lantus 100 unit/mL Sub-Q soln 10 unit daily [Active]; Lasix 20 mg Oral tab 3 tabs 2 times per day [Active]; levothyroxine 100 mcg tab 2 tabs once daily [Active]; losartan 25 mg Oral tab once daily [Active]; metoprolol succinate 25 mg Oral tab twice a day [Active]; metoprolol tartrate 25 mg Oral tab 1 tab 2 times per day [Active]; Namenda 5 mg Oral tab daily [Active]; omeprazole 20 mg Oral TbEC daily [Active]; Ranexa 1,000 mg Oral Tb12 1 tab 2 times per day [Active]; Risperdal 0.25 mg Oral tab daily [Active]; Risperdal 0.5 mg Oral tab nightly [Active]; spironolactone 50 mg Oral tab 1 tab 2 times per day [Active]; tamsulosin 0.4 mg Oral cp24 once daily [Active]; Tradjenta 5 mg Oral tab 1 tab once daily [Active]; Vitamin D2 50,000 unit Oral cap 1 cap once wkly [Active]; Vitamin D3 1,000 unit Oral tab 2 tab daily [Active]; Zofran (as hydrochloride) 4 mg Oral tab as needed [Active]; - PMHx: 07:32 angina pectoris; Atrial Fib; BPH; CAD; Anxiety; CHF; COPD; Dementia; Diabetes - NIDDM; bp HEART FAILURE; Hematuria; Hyperlipidemia; Hypertension; MUSCLE WEAKNESS; Hypothyroidism; Myocardial infarction; Pacemaker; Pneumonia; - Immunization history:: Adult Immunizations up to date. - Social history:: Smoking status: Patient/guardian denies using tobacco. - Ebola Screening: : Patient negative for fever greater than or equal to 101.5 degrees Fahrenheit, and additional compatible Ebola Virus Disease symptoms Patient denies exposure to infectious person Patient denies travel to an Ebola-affected area in the 21 days before illness onset No symptoms or risks identified at this time. ROS: 08:00 Constitutional: Negative for fever, chills, and weight loss, Eyes: Negative for injury, pm1 pain, redness, and discharge, ENT: Negative for injury, pain, and discharge, Neck: Negative for injury, pain, and swelling. 08:00 Abdomen/GI: Negative for abdominal pain, nausea, vomiting, diarrhea, and constipation, Back: Negative for injury and pain, : Negative for injury, bleeding, discharge, and swelling, MS/Extremity: Negative for injury and deformity, Skin: Negative for injury, rash, and discoloration. 08:00 Neuro: Negative for headache, weakness, numbness, tingling, and seizure. 08:00 Cardiovascular: Positive for edema, Negative for chest pain, palpitations. 08:00 Respiratory: Positive for cough, shortness of breath, Negative for wheezing. Exam: 08:00 Constitutional: This is a well developed, well nourished patient who is awake, alert, pm1 and in no acute distress. Head/Face: Normocephalic, atraumatic. Eyes: Pupils equal round and reactive to light, extra-ocular motions intact. Lids and lashes normal. Conjunctiva and sclera are non-icteric and not injected. Cornea within normal limits. Periorbital areas with no swelling, redness, or edema. ENT: Nares patent. No nasal discharge, no septal abnormalities noted. Tympanic membranes are normal and external auditory canals are clear. Oropharynx with no redness, swelling, or masses, exudates, or evidence of obstruction, uvula midline. Mucous membranes moist. Neck: Trachea midline, no thyromegaly or masses palpated, and no cervical lymphadenopathy. Supple, full range of motion without nuchal rigidity, or vertebral point tenderness. No Meningismus. Chest/axilla: Normal chest wall appearance and motion. Nontender with no deformity. No lesions are appreciated. 08:00 Abdomen/GI: Soft, non-tender, with normal bowel sounds. No distension or tympany. No guarding or rebound. No evidence of tenderness throughout. Back: No spinal tenderness. No costovertebral tenderness. Full range of motion. Skin: Warm, dry with normal turgor. Normal color with no rashes, no lesions, and no evidence of cellulitis. MS/ Extremity: Pulses equal, no cyanosis. Neurovascular intact. Full, normal range of motion. 08:00 Cardiovascular: Rate: normal, Rhythm: irregular, Edema: 1+ edema to level of left ankle and right ankle. 08:00 Respiratory: Breath sounds: rales, are scattered, decreased breath sounds, are located in both bases. 08:00 Neuro: Orientation: to person, Motor: moves all fours. Vital Signs: 07:32 BP 144 / 92; Pulse 90; Resp 24; Temp 98.8; Pulse Ox 99% 3 lpm ; Weight 65.77 kg; bp 08:00 BP 148 / 97; Pulse 97; Resp 22; Pulse Ox 100% ; bp 09:00 BP 116 / 58; Pulse 87; Resp 20; Pulse Ox 96% ; bp 10:00 BP 105 / 59; Pulse 83; Resp 22; Pulse Ox 97% ; bp 11:00 BP 127 / 65; Pulse 83; Resp 20; Pulse Ox 99% ; bp 12:00 BP 119 / 62; Pulse 77; Resp 19; Pulse Ox 98% ; bp 13:00 BP 126 / 76; Pulse 66; Resp 18; Pulse Ox 99% ; bp MDM: 07:31 Patient medically screened. pm1 08:56 Data reviewed: vital signs. Data interpreted: Pulse oximetry: on 3L(s) per nasal pm1 [place], is 99 %. Interpretation: Per [facility] RN patient does not require typically oxygen. Patient was found with 87-88% saturation on RA. 09:04 Counseling: I had a detailed discussion with the patient and/or guardian regarding: the pm1 historical points, exam findings, and any diagnostic results supporting the discharge/admit diagnosis, lab results, radiology results, the need for further work-up and treatment in the hospital. 09:20 Physician consultation: Lenka Christensen MD was called at 09:19, was contacted at 09:19, pm1 regarding admission, patient's condition, Obtain procalcitonin and lactate, and recheck patient's O2 saturation in 30 minutes on NC 2L to determine if admit patient . 09/19 07:37 Order name: Basic Metabolic Panel pm1 09/19 07:37 Order name: CBC with Diff; Complete Time: 08:52 pm1 09/19 07:37 Order name: LFT's; Complete Time: 08:54 pm1 09/19 07:37 Order name: Magnesium; Complete Time: 08:54 pm1 09/19 07:37 Order name: NT PRO-BNP pm1 09/19 07:37 Order name: PT-INR; Complete Time: 08:52 pm1 09/19 07:37 Order name: Troponin (emerg Dept Use Only); Complete Time: 08:54 pm1 09/19 07:37 Order name: Blood Culture Adult (2) pm1 09/19 07:37 Order name: Flu; Complete Time: 08:52 pm1 09/19 07:37 Order name: Basic Metabolic Panel; Complete Time: 08:54 EDMS 09/19 07:37 Order name: NT PRO-BNP; Complete Time: 08:54 EDMS 09/19 09:24 Order name: Procalcitonin; Complete Time: 10:34 pm1 09/19 09:24 Order name: Lactate; Complete Time: 10:08 pm1 09/19 10:53 Order name: Sputum Culture EDMS 09/19 07:37 Order name: XRAY Chest (1 view); Complete Time: 09:32 pm1 09/19 07:37 Order name: EKG; Complete Time: 07:38 pm1 09/19 07:37 Order name: Cardiac monitoring; Complete Time: 07:41 pm1 09/19 07:37 Order name: EKG - Nurse/Tech; Complete Time: 07:42 pm1 09/19 07:37 Order name: IV Saline Lock; Complete Time: 07:42 pm1 09/19 07:37 Order name: Labs collected and sent; Complete Time: 08:21 pm1 09/19 07:37 Order name: O2 Per Protocol; Complete Time: 07:42 pm1 09/19 07:37 Order name: O2 Sat Monitoring; Complete Time: 07:41 pm1 09/19 10:53 Order name: CONS Physician Consult EDNC 09/19 10:53 Order name: Heart Healthy EDNC Administered Medications: 08:00 Drug: Lasix 40 mg Route: IVP; Site: right forearm; bp 08:38 Follow up: Response: No adverse reaction bp 08:20 Drug: Rocephin 1 grams Route: IV; Rate: calculated rate; Site: right forearm; bp 08:39 Follow up: IV Status: Completed infusion; IV Intake: 20ml bp 09:05 Drug: Tamiflu 75 mg Route: PO; bp 12:38 Follow up: Response: No adverse reaction bp 09:20 Drug: AZITHromycin 500 mg {Note: RECD FROM PHARMACY.} Route: IVPB; Infused Over: 1 hrs; bp Site: right forearm; 12:39 Follow up: IV Status: Completed infusion; IV Intake: 250ml bp Disposition: 09/19/18 09:10 Hospitalization ordered by Lenka Christensen for Observation. Preliminary diagnosis are Pneumonia, unspecified organism, Influenza due to certain identified influenza viruses - Influenza B, Hypoxia, Acute combined systolic (congestive) and diastolic (congestive) heart failure. - Bed requested for Telemetry/MedSurg (observation). - Status is Observation. bp - Condition is Stable. - Problem is new. - Symptoms have improved. UTI on Admission? No Addendum: 09/22/2018 08:20 Co-signature as Attending Physician, Brian Contreras MD I agree with the assessment and k dr plan of care. Signatures: Dispatcher [employer] EDMS Amada Victor RN RN Brian Contreras MD MD [facility] Chan Whitley NP [facility] pm1 Joe Scanlon RN RN bp Corrections: (The following items were deleted from the chart) 09/19 10:57 09:10 Hospitalization Ordered by Lenka Christensen MD for Inpatient Admission. Preliminary pm1 diagnosis is Pneumonia, unspecified organismInfluenza due to certain identified influenza viruses - Influenza B. Bed requested for Telemetry/MedSurg (Inpatient). Status is Inpatient Admission. Condition is Stable. Problem is new. Symptoms have improved. UTI on Admission? No. pm1 10:57 10:57 09/19/2018 09:10 Hospitalization Ordered by Lenka Christensen MD for Inpatient pm1 Admission. Preliminary diagnosis is Pneumonia, unspecified organismInfluenza due to certain identified influenza viruses - Influenza B; Hypoxia; Acute combined systolic (congestive) and diastolic (congestive) heart failure. Bed requested for Telemetry/MedSurg (Inpatient). Status is Inpatient Admission. Condition is Stable. Problem is new. Symptoms have improved. UTI on Admission? No. pm1 10:58 10:57 09/19/2018 09:10 Hospitalization Ordered by Lenka Christensen MD for Inpatient pm1 Admission. Preliminary diagnosis is Pneumonia, unspecified organismInfluenza due to certain identified influenza viruses - Influenza B; Hypoxia; Acute combined systolic (congestive) and diastolic (congestive) heart failure. Bed requested for Telemetry/MedSurg (Inpatient). Status is Inpatient Admission. Condition is Stable. Problem is new. Symptoms have improved. UTI on Admission? No. pm1 12:10 10:58 09/19/2018 09:10 Hospitalization Ordered by Lenka Christensen MD for Observation. dw Preliminary diagnosis is Pneumonia, unspecified organismInfluenza due to certain identified influenza viruses - Influenza B; Hypoxia; Acute combined systolic (congestive) and diastolic (congestive) heart failure. Bed requested for Telemetry/MedSurg (observation). Status is Observation. Condition is Stable. Problem is new. Symptoms have improved. UTI on Admission? No. pm1 13:48 12:10 09/19/2018 09:10 Hospitalization Ordered by Lenka Christensen MD for Observation. bp Preliminary diagnosis is Pneumonia, unspecified organismInfluenza due to certain identified influenza viruses - Influenza B; Hypoxia; Acute combined systolic (congestive) and diastolic (congestive) heart failure. Bed requested for Telemetry/MedSurg (observation). Status is Observation. Condition is Stable. Problem is new. Symptoms have improved. UTI on Admission? No. dw
[2018-09-19] MEDS ORDERED: OSELTAMIVIR 75 MG CAP ONE (09:14)
[2018-09-19] MEDS ORDERED: AZITHROMYCIN IV 500 MG in NA CHLORIDE 0.9% 250 ML IVPB ONE (09:15)
--- NOTE | 2018-09-19 09:28 | RAD REPORT ---
EXAM DESCRIPTION: RAD - Chest Single View - 09/19/2018 8:30 am CLINICAL HISTORY: Cough, fever COMPARISON: July 23 chest film TECHNIQUE: AP portable chest image was obtained 0825 hours . FINDINGS: Patient has a baseline interstitial fibrotic pattern. Interstitial markings have increased from prior imaging. No focal consolidation. Cardiomegaly is present increased from comparison. Vascu lature has increased slightly as well. Defibrillator is in place along with CABG surgical changes. No measurable pleural effusion and no pneumothorax. No acute bony abnormality seen. No acute aortic fin dings suspected. IMPRESSION: Diffusely prominent interstitial pattern increased over the patient's baseline fibrosis. No focal consolidations seen. Cardiomegaly and mild increase in central pulmonary vasculature. Patient shows a mixed pattern. A mild failure/ volume overload is suspected. Superimposed viral infil trate cannot be excluded.
[2018-09-19] MEDS: INSULIN -REGULAR HUMAN 50 UNIT/0.5 ML ML SQ SCH ×3 (11:30→21:42)
[2018-09-19] MEDS ORDERED: RANOLAZINE PO SCH (16:45)
[2018-09-19] MEDS ORDERED: HOME MED 1 EA UNK (Buspirone Hcl [Buspar] 10 MG) PO SCH (16:45)
--- NOTE | 2018-09-19 16:46 | P.HP ---
Certification for Inpatient Patient admitted to: Observation With expected LOS: <2 Midnights Patient will require the following post-hospital care: None Practitioner: I am a practitioner with admitting privileges, knowledge of patient current condition, hospital course, and medical plan of care. Services: Services provided to patient in accordance with Admission requirements found in Title 42 Section 412.3 of the Code of Federal Regulations Patient History Date of Service: 09/19/18 Primary Care Provider: JEROME Reason for admission: SOB History of Present Illness: 82-year-old male with significant past medical history of atrial fibrillation, CAD, anxiety, CHF with ejection fraction of less than 25%, COPD, dementia, diabetes, hypertension, hyperlipidemia, hypothyroidism, status post pacemaker placement who presented to the ED complaining of shortness of breath and low- grade fever at the [facility]. Patient has not been feeling well for past couple of days and has been getting progressively worse and the [facility] decided to bring him to the ER. Patient is has had contact with several residents at the [facility] who have recently been diagnosed with influenza B. patient was also recently admitted to the hospital in July of 2018 for syncopal event and at that time was discharged back to the [facility] after thorough workup was done. Aside from shortness of breath and low-grade fever. Patient does not have any complaints to offer. Denies having any nausea vomiting abdominal pain or any chest pain at this time. In the ER patient had lab work and imaging done. X-ray was consistent with bilateral pneumonia. Patient had oxygen saturation of 86-88% on room air and this is placed on 2 L nasal cannula. Patient was admitted to the hospital for influenza pneumonia and acute CHF exacerbation as well. Allergies No Known Allergies Allergy (Verified 07/23/18 22:49) Home Medications: Acetaminophen 2 tab PO Q6HP PRN 07/23/18 Atorvastatin Calcium 2 tab PO BEDTIME 07/23/18 Buspirone HCl [Buspar] 10 mg PO SEECOM 07/23/18 Cholecalciferol (Vitamin D3) [Vitamin D3] 2 tab PO DAILY 07/23/18 Clopidogrel Bisulfate [Plavix*] 75 mg PO DAILY 07/23/18 Ergocalciferol (Vitamin D2) [Vitamin D2] 50,000 unit PO EVERY 7TH DAY 07/23/18 Insulin Glargine Human [Lantus*] 10 unit SQ DAILY 07/23/18 Lactulose 30 ml PO PRN PRN 07/23/18 Levothyroxine [Synthroid*] 2 tab PO [id number] 07/23/18 Linagliptin [Tradjenta] 5 mg PO DAILY 07/23/18 Memantine HCl [Namenda] 5 mg PO DAILY 07/23/18 Omeprazole 20 mg PO DAILY 07/23/18 Ondansetron HCl [Zofran] 4 mg PO TIDP PRN 07/23/18 Ranolazine [Ranexa] 1 tab PO Q12H 07/23/18 Rivastigmine [Exelon] 13.3 mg TD Q24H 07/23/18 Spironolactone [Aldactone] 1 tab PO BID 07/23/18 Tamsulosin [Flomax*] 0.4 mg PO BEDTIME 07/23/18 Isosorbide Dinit [Isordil*] 10 mg PO BID #30 tab 07/27/18 Metoprolol Tartrate [Lopressor*] 12.5 mg PO BID 6AM 6PM #60 tab 07/27/18 Dronabinol [Marinol] 5 mg PO BID 09/19/18 Furosemide [Lasix] 40 mg PO DAILY 09/19/18 Guaif/Dm [Robitussin Dm] 10 ml PO BID 09/19/18 Loratadine [Claritin] 10 mg PO DAILY 09/19/18 Protein Supplement [Promod] 30 ml PO DAILY 09/19/18 - Past Medical/Surgical History Has patient received pneumonia vaccine in the past: Yes Diabetic: Yes -: NIDDM -: PAcemaker -: afib per hx -: CAD -: chronic systolic CHF EF 25-29% -: Dementia -: hypothyroidism -: HTN -: Pneumonia -: COPD -: BPH -: angina -: pacemaker -: triple bypass - Family History Father -: Heart disease - Social History Smoking Status: Former smoker Counseled patient to stop smoking for: less than 10 minutes Smoking therapy provided: No Patient receptive to therapy: No Alcohol use: No CD- Drugs: No Caffeine use: No Place of Residence: Retirement Review of Systems 10-point ROS is otherwise unremarkable Physical Examination - Vital Signs Temperature: 98.8 F Blood Pressure: 126/76 Pulse: 66 Respirations: 18 - Physical Exam General: Alert, Cachectic, Mild distress HEENT: Atraumatic Neck: JVD distended Respiratory: Normal air movement, Crackles/rales, Rhonchi/gurgles Cardiovascular: Normal S1 S2, Irregular heart rate/rhythm, Systolic murmur Gastrointestinal: Normal bowel sounds, No tenderness Musculoskeletal: No tenderness Integumentary: No rashes Lymphatics: No axilla or inguinal lymphadenopathy - Studies Laboratory Data (last 24 hrs) 09/19/18 08:05: PT 12.9 H, INR 1.10 09/19/18 08:05: WBC 6.4, Hgb 11.1 L, Hct 33.3 L, Plt Count 160 09/19/18 08:05: Sodium 140, Potassium 4.9, BUN 47 H, Creatinine 1.97 H, Glucose 202 H, Magnesium 2.2, Total Bilirubin 0.7, AST 21, ALT 22, Alkaline Phosphatase 99 Microbiology Data (last 24 hrs): 09/19/18 08:05 Nasopharnyx Influenza Type A Antigen Screen - Final 09/19/18 08:05 Nasopharnyx Influenza Type B Antigen Screen - Final Assessment and Plan - Problems (Diagnosis) (1) PNA (pneumonia) Current Visit: Yes Status: Acute Plan: Pneumonia most likely secondary to influenza B virus -pro calcitonin negative. Slightly elevated white count -patient will be started on Tamiflu at this time. -sputum and blood culture collected pending at this time -will monitor closely Qualifiers: Pneumonia type: due to unspecified organism Laterality: bilateral Lung location: unspecified part of lung Qualified Code(s): J18.9 - Pneumonia, unspecified organism (2) Influenza B Current Visit: Yes Status: Acute Plan: Influenza B positive with acute respiratory distress. Oxygenation in the ER 86- 87% on room air. -Tamiflu 75 mg b.i.d. -currently on nasal cannula will try to wean off as tolerated (3) Acute on chronic systolic (congestive) heart failure Onset Date: 12/31/17 Current Visit: No Status: Acute Plan: Acute CHF exacerbation with elevated BNP and crackles on physical exam -will start patient on IV Lasix at this time. -daily weights, i&o, fluid restriction as well -patient's last echocardiogram done in July consistent with EF of less than 25% with global hypokinesis. (4) BPH (benign prostatic hyperplasia) Onset Date: 12/31/17 Current Visit: No Status: Chronic Qualifiers: Lower urinary tract symptom presence: symptoms present Lower urinary tract symptom detail: incomplete bladder emptying Qualified Code(s): N40.1 - Benign prostatic hyperplasia with lower urinary tract symptoms; R39.14 - Feeling of incomplete bladder emptying (5) CAD (coronary artery disease) Onset Date: 12/31/17 Current Visit: No Status: Chronic Qualifiers: Coronary Disease-Associated Artery/Lesion type: elim ira artery [place] vs. transplanted heart: elim ira heart Associated angina: without angina Qualified Code(s): I25.10 - Atherosclerotic heart disease of elim ira coronary artery without angina pectoris (6) Dementia Onset Date: 12/31/17 Current Visit: No Status: Chronic Qualifiers: Dementia type: Parkinson's disease Dementia behavioral disturbance: without behavioral disturbance Qualified Code(s): G20 - Parkinson's disease; F02.80 - Dementia in other diseases classified elsewhere without behavioral disturbance (7) Diabetes mellitus Onset Date: 10/21/17 Current Visit: No Status: Chronic Qualifiers: Diabetes mellitus type: type 2 Diabetes mellitus fpc insulin use: with terminal system operator use Diabetes mellitus complication status: without complication Qualified Code(s): E11.9 - Type 2 diabetes mellitus without complications; Z79.4 - watermelon inspector (current) use of insulin (8) GERD (gastroesophageal reflux disease) Onset Date: 01/27/18 Current Visit: No Status: Chronic Qualifiers: Esophagitis presence: without esophagitis (9) History of pacemaker Current Visit: No Status: Chronic (10) Hyperlipidemia Onset Date: 10/21/17 Current Visit: No Status: Chronic Qualifiers: Hyperlipidemia type: mixed hyperlipidemia (11) Hypothyroidism Onset Date: 10/21/17 Current Visit: No Status: Chronic Qualifiers: Hypothyroidism type: acquired - Plan Patient would be admitted to the medical-surgical floor for further treatment of his influenza pneumonia and acute congestive heart failure. Patient will be started on IV Lasix and IV fluids. Patient also currently has oxygen requirement due to acute respiratory distress secondary to pneumonia and CHF exacerbation. Will attempt to wean off as tolerated. Discharge Plan: Retirement Plan to discharge in: 48 Hours - Advance Directives Does patient have a Living Will: No Does patient have a Durable POA for Healthcare: Yes - Code Status/Comfort Care Code Status Assessed: Yes Critical Care: No
[2018-09-19] MEDS ORDERED: FUROSEMIDE 20 MG/ 2ML VIAL IV SCH (17:00)
[2018-09-19] MEDS ORDERED: D50W 25 GM/50 ML SYRINGE IV PRN (17:04)
[2018-09-19] MEDS ORDERED: GLUCAGON 1 MG/VIAL IM PRN (17:04)
[2018-09-19] MEDS ORDERED: RIVASTIGMINE 13.3 MG/24 HR PATCH TOP SCH (17:15)
[2018-09-19] MEDS: METOPROLOL TAR 25 MG TAB PO SCH (17:35)
[2018-09-19 17:51] VITALS: BMI 19.2
[2018-09-19] MEDS ORDERED: SPIRONOLACTONE PO SCH (21:00)
[2018-09-19] MEDS: DRONABINOL 5 MG PO SCH (21:00)
[2018-09-19] MEDS: SPIRONOLACTONE 25 MG TABLET PO SCH (21:39)
[2018-09-19] MEDS: ISOSORBIDE DINIT 5 MG TAB PO SCH (21:39)
[2018-09-19] MEDS: ATORVASTATIN 80 MG TAB PO SCH (21:40)
[2018-09-19] MEDS: TAMSULOSIN 0.4 MG SR CAP PO SCH (21:40)
[2018-09-19] MEDS: OSELTAMIVIR 75 MG CAP PO SCH (21:40)
[2018-09-19] MEDS ORDERED: GUAIFENESIN/CODEINE 5ML UCUP PO PRN (22:50)
[2018-09-19] MEDS: IPRATROPIUM BROM 0.5MG/2.5ML NEB SCH (23:15)
[2018-09-19] MEDS: ALBUTEROL 2.5 MG/3 ML NEB SOL NEB SCH (23:15)
[2018-09-19] MEDS: METHYLPREDNISOLONE 40 MG INJ IV SCH (23:44)
[2018-09-20] MEDS: METHYLPREDNISOLONE 40 MG INJ IV SCH ×2 (00:13→09:14)
[2018-09-20] MEDS: ALBUTEROL 2.5 MG/3 ML NEB SOL NEB SCH ×2 (01:18→08:01)
[2018-09-20] MEDS: IPRATROPIUM BROM 0.5MG/2.5ML NEB SCH ×4 (01:18→20:10)
[2018-09-20] MEDS: LEVOTHYROXINE SOD 0.1 MG TAB PO SCH (06:14)
[2018-09-20] MEDS: METOPROLOL TAR 25 MG TAB PO SCH ×2 (06:15→17:31)
[2018-09-20 06:20] LABS: Absolute Lymphocytes (CBC) 0.6 K/uL (0.7-4.9); Absolute Monocytes 0.2 K/uL (0.1-1.3); Absolute Neutrophil 3.4 K/uL (1.8-8.0); Basophils % 0.1 % (0-1.3); Hematocrit 29.5 % (39.6-49.0); Lymphocytes % 14.3 % (15.3-44.8); MPV 9.3 fL (7.6-11.3); Monocytes % 4.7 % (3.3-12.3); RBC Red Blood Cell Count 2.94 M/uL (4.33-5.43)
[2018-09-20] MEDS ORDERED: PANTOPRAZOLE 40MG TABLET PO SCH (06:30)
[2018-09-20 06:40] LABS: Albumin 2.6 g/dL (3.4-5.0); Bilirubin Total 0.8 mg/dL (0.2-1.0); Magnesium 2.3 mg/dL (1.8-2.4); Potassium 4.2 mmol/L (3.5-5.1); Protein, Total 5.9 g/dL (6.4-8.2)
[2018-09-20] MEDS: INSULIN -REGULAR HUMAN 50 UNIT/0.5 ML ML SQ SCH ×4 (07:30→20:32)
[2018-09-20] MEDS: DRONABINOL 5 MG PO SCH ×2 (09:00→20:41)
[2018-09-20] MEDS ORDERED: MEMANTINE HCL 5 MG PO SCH (09:00)
[2018-09-20] MEDS ORDERED: HOME MED 1 EA UNK (Omeprazole [Omeprazole] 20 MG) PO SCH (09:00)
[2018-09-20] MEDS ORDERED: CHOLECALCIFEROL PO SCH (09:00)
[2018-09-20] MEDS: LORATADINE 10 MG TAB PO SCH (09:14)
[2018-09-20] MEDS: CLOPIDOGREL 75 MG TABLET PO SCH (09:14)
[2018-09-20] MEDS: VITAMIN D 1000 UNIT TAB PO SCH (09:14)
[2018-09-20] MEDS: ISOSORBIDE DINIT 5 MG TAB PO SCH ×2 (09:15→20:31)
[2018-09-20] MEDS: SPIRONOLACTONE 25 MG TABLET PO SCH ×2 (09:15→20:31)
[2018-09-20] MEDS: PANTOPRAZOLE 40MG TABLET PO SCH (09:15)
[2018-09-20] MEDS: MEMANTINE HCL 10 MG TABLET PO SCH (09:17)
[2018-09-20] MEDS: FUROSEMIDE 40 MG TABLET PO SCH (09:17)
[2018-09-20] MEDS: OSELTAMIVIR 75 MG CAP PO SCH (09:18)
--- NOTE | 2018-09-20 09:47 | EKG ---
Test Date: 2018-09-19 Test Time: 07:52:19 Duplicating Machine Mechanic: CATHERINE MEASUREMENT RESULTS: Intervals: Rate: 122 [place]: QRSD: 118 QT: 312 QTc: 444 [place]: P: 107 [place]: QRS: 6 T: 195 INTERPRETIVE STATEMENTS: Atrial flutter with 2:1 AV conduction Nonspecific intraventricular conduction delay ST & T wave abnormality, consider inferolateral ischemia Abnormal ECG Compared to ECG 07/23/2018 14:15:56 No significant changes Electronically Signed On 09-20-18 09:43:21 CDT by Haroldo Rojas
[2018-09-20] MEDS ORDERED: ALBUTEROL 2.5 MG/3 ML NEB SOL NEB PRN (11:05)
--- NOTE | 2018-09-20 11:06 | P.CNS ---
Date of Consult: 09/20/18 Primary Care Provider: JEROME Chief Complaint: SOB History of Present Illness: Patient is 82 years of age previously well admitted with a 1 week history of increasing cough congestion shortness of breath is influenza positive admitted with the possibility of a pneumonia he has never smoked patient has a significant cardiac history feels a little better although still has cough and congestion denies any fever chills or chest pain cough is nonproductive Allergies No Known Allergies Allergy (Verified 07/23/18 22:49) Home Medications: Acetaminophen 2 tab PO Q6HP PRN 07/23/18 Atorvastatin Calcium 2 tab PO BEDTIME 07/23/18 Buspirone HCl [Buspar] 10 mg PO SEECOM 07/23/18 Cholecalciferol (Vitamin D3) [Vitamin D3] 2 tab PO DAILY 07/23/18 Clopidogrel Bisulfate [Plavix*] 75 mg PO DAILY 07/23/18 Ergocalciferol (Vitamin D2) [Vitamin D2] 50,000 unit PO EVERY 7TH DAY 07/23/18 Insulin Glargine Human [Lantus*] 10 unit SQ DAILY 07/23/18 Lactulose 30 ml PO PRN PRN 07/23/18 Levothyroxine [Synthroid*] 2 tab PO GATCG2IV 07/23/18 Linagliptin [Tradjenta] 5 mg PO DAILY 07/23/18 Memantine HCl [Namenda] 5 mg PO DAILY 07/23/18 Omeprazole 20 mg PO DAILY 07/23/18 Ondansetron HCl [Zofran] 4 mg PO TIDP PRN 07/23/18 Ranolazine [Ranexa] 1 tab PO Q12H 07/23/18 Rivastigmine [Exelon] 13.3 mg TD Q24H 07/23/18 Spironolactone [Aldactone] 1 tab PO BID 07/23/18 Tamsulosin [Flomax*] 0.4 mg PO BEDTIME 07/23/18 Isosorbide Dinit [Isordil*] 10 mg PO BID #30 tab 07/27/18 Metoprolol Tartrate [Lopressor*] 12.5 mg PO BID 6AM 6PM #60 tab 07/27/18 Dronabinol [Marinol] 5 mg PO BID 09/19/18 Furosemide [Lasix] 40 mg PO DAILY 09/19/18 Guaif/Dm [Robitussin Dm] 10 ml PO BID 09/19/18 Loratadine [Claritin] 10 mg PO DAILY 09/19/18 Protein Supplement [Promod] 30 ml PO DAILY 09/19/18 - Past Medical/Surgical History Diabetic: Yes -: NIDDM -: PAcemaker -: afib per hx -: CAD -: chronic systolic CHF EF 25-29% -: Dementia -: hypothyroidism -: HTN -: Pneumonia -: COPD -: BPH -: angina -: pacemaker -: triple bypass - Family History Father Medical History: Heart disease - Social History Smoking Status: Never smoker Alcohol use: No CD- Drugs: No Caffeine use: No Place of Residence: [facility] Review of Systems 10-point ROS is otherwise unremarkable General: Weakness Respiratory: Cough, Shortness of Breath Physical Examination Temp Pulse Resp BP Pulse Ox 97.4 F 60 16 125/59 L 100 09/20/18 08:00 09/20/18 09:17 09/20/18 08:00 09/20/18 09:17 09/20/18 08:00 General: Alert, In no apparent distress, Oriented x3 Neck: Supple Respiratory: Clear to auscultation bilaterally, Diminished, Rhonchi/gurgles Cardiovascular: No edema, Regular rate/rhythm, Normal S1 S2 - Problems (1) PNA (pneumonia) Current Visit: Yes Status: Acute Plan: Patient is 82 years of age with the admitted with a 1 week history of increasing cough congestion shortness of breath influenza B positive l patient' s vital signs are stable. Labs reviewed renal insufficiency which is chronic. He has never smoked currency exchange specialist to p.o. prednisone possible influenza pneumonia pro calcitonin and white count are normal patient has a significant coronary artery disease in addition to diabetes and congestive heart failure Qualifiers: Pneumonia type: due to unspecified organism Laterality: bilateral Lung location: unspecified part of lung Qualified Code(s): J18.9 - Pneumonia, unspecified organism
--- NOTE | 2018-09-20 13:27 | P.PN ---
Subjective Date of Service: 09/20/18 Primary Care Provider: JEROME Chief Complaint: SOB Subjective: Tolerating diet, Improving, C/O voiced, Working w/ PT, Doing well, Other (Denies having SOB, CP at this time. C.o of having Cough and congestion) Review of Systems 10-point ROS is otherwise unremarkable Physical Examination - Vital Signs Temperature: 97.4 F Blood Pressure: 125/59 Pulse: 60 Respirations: 16 Pulse Ox (%): 100 - Physical Exam General: Alert, In no apparent distress, Mild distress Respiratory: Normal air movement, Expiratory wheezes, Inspiratory wheezes Cardiovascular: Regular rate/rhythm, Normal S1 S2 Gastrointestinal: Normal bowel sounds, No tenderness Musculoskeletal: No tenderness Integumentary: No rashes Neurological: Normal speech, Normal tone, Normal affect Lymphatics: No axilla or inguinal lymphadenopathy - Studies Microbiology Data (last 24 hrs): 09/19/18 08:05 Nasopharnyx Influenza Type A Antigen Screen - Final 09/19/18 08:05 Nasopharnyx Influenza Type B Antigen Screen - Final Medications List Reviewed: Yes Assessment And Plan - Current Problems (Diagnosis) (1) PNA (pneumonia) Current Visit: Yes Status: Acute Plan: Pneumonia most likely secondary to influenza B virus -procalcitonin negative. Slightly elevated white count -On Tamiflu 2/ -sputum and blood culture collected. Negative thus far Qualifiers: Pneumonia type: due to unspecified organism Laterality: bilateral Lung location: unspecified part of lung Qualified Code(s): J18.9 - Pneumonia, unspecified organism (2) Influenza B Current Visit: Yes Status: Acute Plan: Influenza B positive with acute respiratory distress. Oxygenation in the ER 86- 87% on room air. -Improved today, however still requiring oxygen. Will wean as tolerated -Tamiflu 75 mg b.i.d. (3) Acute on chronic systolic (congestive) heart failure Onset Date: 12/31/17 Current Visit: No Status: Acute Plan: Acute CHF exacerbation with elevated BNP and crackles on physical exam -On IV lasix now -daily weights, i&o, fluid restriction as well -patient's last echocardiogram done in July consistent with EF of less than 25% with global hypokinesis. (4) BPH (benign prostatic hyperplasia) Onset Date: 12/31/17 Current Visit: No Status: Chronic Qualifiers: Lower urinary tract symptom presence: symptoms present Lower urinary tract symptom detail: incomplete bladder emptying Qualified Code(s): N40.1 - Benign prostatic hyperplasia with lower urinary tract symptoms; R39.14 - Feeling of incomplete bladder emptying (5) CAD (coronary artery disease) Onset Date: 12/31/17 Current Visit: No Status: Chronic Qualifiers: Coronary Disease-Associated Artery/Lesion type: [place] artery [place] vs. transplanted heart: [place] heart Associated angina: without angina Qualified Code(s): I25.10 - Atherosclerotic heart disease of [place] coronary artery without angina pectoris (6) Dementia Onset Date: 12/31/17 Current Visit: No Status: Chronic Qualifiers: Dementia type: Parkinson's disease Dementia behavioral disturbance: without behavioral disturbance Qualified Code(s): G20 - Parkinson's disease; F02.80 - Dementia in other diseases classified elsewhere without behavioral disturbance (7) Diabetes mellitus Onset Date: 10/21/17 Current Visit: No Status: Chronic Qualifiers: Diabetes mellitus type: type 2 Diabetes mellitus care home insulin use: with care home use Diabetes mellitus complication status: without complication Qualified Code(s): E11.9 - Type 2 diabetes mellitus without complications; Z79.4 - half-way (current) use of insulin (8) GERD (gastroesophageal reflux disease) Onset Date: 01/27/18 Current Visit: No Status: Chronic Qualifiers: Esophagitis presence: without esophagitis (9) History of pacemaker Current Visit: No Status: Chronic (10) Hyperlipidemia Onset Date: 10/21/17 Current Visit: No Status: Chronic Qualifiers: Hyperlipidemia type: mixed hyperlipidemia (11) Hypothyroidism Onset Date: 10/21/17 Current Visit: No Status: Chronic Qualifiers: Hypothyroidism type: acquired - Plan Pending clinical Improvement at this time. Continue with tamiflu. PT/OT consulted. Discharge Plan: Longterm Plan to discharge in: 48 Hours - Code Status/Comfort Care Code Status Assessed: Yes Critical Care: No
[2018-09-20] MEDS: BUSPIRONE HCL 5 MG TABLET PO SCH (13:57)
[2018-09-20] MEDS: TAMSULOSIN 0.4 MG SR CAP PO SCH (20:31)
[2018-09-20] MEDS: predniSONE 20 MG TAB PO SCH (20:32)
[2018-09-20] MEDS: ATORVASTATIN 80 MG TAB PO SCH (20:32)
[2018-09-21] MEDS: IPRATROPIUM BROM 0.5MG/2.5ML NEB SCH ×4 (02:00→19:54)
[2018-09-21 05:53] LABS: Albumin 2.7 g/dL (3.4-5.0); Bilirubin Total 0.7 mg/dL (0.2-1.0); Magnesium 2.3 mg/dL (1.8-2.4); Phosphorus 3.3 mg/dL (2.5-4.9); Potassium 4.3 mmol/L (3.5-5.1)
[2018-09-21 05:55] LABS: Absolute Lymphocytes (CBC) 0.5 K/uL (0.7-4.9); Absolute Monocytes 0.4 K/uL (0.1-1.3); Absolute Neutrophil 4.8 K/uL (1.8-8.0); Hematocrit 29.6 % (39.6-49.0); Lymphocytes % 9.3 % (15.3-44.8); MPV 10.3 fL (7.6-11.3); Monocytes % 6.5 % (3.3-12.3); RBC Red Blood Cell Count 2.92 M/uL (4.33-5.43)
[2018-09-21] MEDS: LEVOTHYROXINE SOD 0.1 MG TAB PO SCH (06:14)
[2018-09-21] MEDS: METOPROLOL TAR 25 MG TAB PO SCH ×2 (06:14→17:24)
[2018-09-21] MEDS: INSULIN -REGULAR HUMAN 50 UNIT/0.5 ML ML SQ SCH ×4 (07:30→21:05)
[2018-09-21] MEDS: DRONABINOL 5 MG PO SCH ×2 (09:00→21:00)
[2018-09-21] MEDS: OSELTAMIVIR PHOSPHATE 30 MG/5 ML SUSPENSION UD PO SCH (09:07)
[2018-09-21] MEDS: predniSONE 20 MG TAB PO SCH ×2 (09:07→21:04)
[2018-09-21] MEDS: SPIRONOLACTONE 25 MG TABLET PO SCH ×2 (09:07→21:04)
[2018-09-21] MEDS: CLOPIDOGREL 75 MG TABLET PO SCH (09:08)
[2018-09-21] MEDS: FUROSEMIDE 40 MG TABLET PO SCH (09:08)
[2018-09-21] MEDS: MEMANTINE HCL 10 MG TABLET PO SCH (09:08)
[2018-09-21] MEDS: ISOSORBIDE DINIT 5 MG TAB PO SCH ×2 (09:09→21:04)
[2018-09-21] MEDS: LORATADINE 10 MG TAB PO SCH (09:09)
[2018-09-21] MEDS: PANTOPRAZOLE 40MG TABLET PO SCH (09:09)
[2018-09-21] MEDS: VITAMIN D 1000 UNIT TAB PO SCH (09:13)
--- NOTE | 2018-09-21 11:43 | P.PN ---
Subjective Date of Service: 09/21/18 Primary Care Provider: JEROME Chief Complaint: SOB Subjective: No C/O voiced, Tolerating diet, Improving, Working w/ PT, Doing well Review of Systems 10-point ROS is otherwise unremarkable Physical Examination - Vital Signs Temperature: 97.4 F Blood Pressure: 128/68 Pulse: 67 Respirations: 16 Pulse Ox (%): 98 - Physical Exam General: Alert, In no apparent distress HEENT: Atraumatic, PERRLA, EOMI Neck: Supple, JVD not distended Respiratory: Normal air movement, Expiratory wheezes, Inspiratory wheezes Cardiovascular: Regular rate/rhythm, Normal S1 S2 Gastrointestinal: Normal bowel sounds, No tenderness Musculoskeletal: No tenderness Integumentary: No rashes Neurological: Normal speech, Normal tone, Normal affect Lymphatics: No axilla or inguinal lymphadenopathy - Studies Medications List Reviewed: Yes Assessment And Plan - Current Problems (Diagnosis) (1) Influenza B Current Visit: Yes Status: Acute Plan: Influenza B positive with acute respiratory distress. Oxygenation in the ER 86- 87% on room air. -Improved today, however still requiring oxygen. Will wean as tolerated -Tamiflu 75 mg b.i.d. (2) PNA (pneumonia) Current Visit: Yes Status: Acute Plan: Pneumonia most likely secondary to influenza B virus -procalcitonin negative. Slightly elevated white count ER. Now resolved -On Tamiflu 3/5 -sputum and blood culture collected. Negative thus far Qualifiers: Pneumonia type: due to unspecified organism Laterality: bilateral Lung location: unspecified part of lung Qualified Code(s): J18.9 - Pneumonia, unspecified organism (3) Acute on chronic systolic (congestive) heart failure Onset Date: 12/31/17 Current Visit: No Status: Acute Plan: Acute CHF exacerbation with elevated BNP and crackles on physical exam -On IV lasix now -daily weights, i&o, fluid restriction as well -patient's last echocardiogram done in July consistent with EF of less than 25% with global hypokinesis. (4) BPH (benign prostatic hyperplasia) Onset Date: 12/31/17 Current Visit: No Status: Chronic Qualifiers: Lower urinary tract symptom presence: symptoms present Lower urinary tract symptom detail: incomplete bladder emptying Qualified Code(s): N40.1 - Benign prostatic hyperplasia with lower urinary tract symptoms; R39.14 - Feeling of incomplete bladder emptying (5) CAD (coronary artery disease) Onset Date: 12/31/17 Current Visit: No Status: Chronic Qualifiers: Coronary Disease-Associated Artery/Lesion type: [place] artery [place] vs. transplanted heart: [place] heart Associated angina: without angina Qualified Code(s): I25.10 - Atherosclerotic heart disease of [place] coronary artery without angina pectoris (6) Dementia Onset Date: 12/31/17 Current Visit: No Status: Chronic Qualifiers: Dementia type: Parkinson's disease Dementia behavioral disturbance: without behavioral disturbance Qualified Code(s): G20 - Parkinson's disease; F02.80 - Dementia in other diseases classified elsewhere without behavioral disturbance (7) Diabetes mellitus Onset Date: 10/21/17 Current Visit: No Status: Chronic Qualifiers: Diabetes mellitus type: type 2 Diabetes mellitus longterm insulin use: with termite control technician use Diabetes mellitus complication status: without complication Qualified Code(s): E11.9 - Type 2 diabetes mellitus without complications; Z79.4 - prison (current) use of insulin (8) GERD (gastroesophageal reflux disease) Onset Date: 01/27/18 Current Visit: No Status: Chronic Qualifiers: Esophagitis presence: without esophagitis (9) History of pacemaker Current Visit: No Status: Chronic (10) Hyperlipidemia Onset Date: 10/21/17 Current Visit: No Status: Chronic Qualifiers: Hyperlipidemia type: mixed hyperlipidemia (11) Hypothyroidism Onset Date: 10/21/17 Current Visit: No Status: Chronic Qualifiers: Hypothyroidism type: acquired - Plan Pending clinical Improvement at this time. Continue with tamiflu. PT/OT consulted. Discharge Plan: Detention Plan to discharge in: 48 Hours - Code Status/Comfort Care Code Status Assessed: Yes Critical Care: No
[2018-09-21] MEDS: BUSPIRONE HCL 5 MG TABLET PO SCH (13:02)
[2018-09-21] MEDS: TAMSULOSIN 0.4 MG SR CAP PO SCH (21:03)
[2018-09-21] MEDS: ATORVASTATIN 80 MG TAB PO SCH (21:04)
[2018-09-22] MEDS: IPRATROPIUM BROM 0.5MG/2.5ML NEB SCH ×3 (01:47→15:00)
[2018-09-22] MEDS: LEVOTHYROXINE SOD 0.1 MG TAB PO SCH (05:41)
[2018-09-22] MEDS: METOPROLOL TAR 25 MG TAB PO SCH (05:41)
[2018-09-22 06:16] LABS: Absolute Lymphocytes (CBC) 0.7 K/uL (0.7-4.9); Absolute Monocytes 0.3 K/uL (0.1-1.3); Basophils % 0.1 % (0-1.3); Hematocrit 29.7 % (39.6-49.0); Lymphocytes % 14.5 % (15.3-44.8); MPV 9.7 fL (7.6-11.3); Monocytes % 6.4 % (3.3-12.3); RBC Red Blood Cell Count 2.96 M/uL (4.33-5.43)
[2018-09-22 06:49] LABS: Albumin 2.8 g/dL (3.4-5.0); Bilirubin Total 0.8 mg/dL (0.2-1.0); Magnesium 2.4 mg/dL (1.8-2.4); Phosphorus 3.3 mg/dL (2.5-4.9); Potassium 4.9 mmol/L (3.5-5.1)
[2018-09-22] MEDS: INSULIN -REGULAR HUMAN 50 UNIT/0.5 ML ML SQ SCH ×2 (08:42→11:30)
[2018-09-22] MEDS: SPIRONOLACTONE 25 MG TABLET PO SCH (08:43)
[2018-09-22] MEDS: OSELTAMIVIR PHOSPHATE 30 MG/5 ML SUSPENSION UD PO SCH (08:43)
[2018-09-22] MEDS: LORATADINE 10 MG TAB PO SCH (08:44)
[2018-09-22] MEDS: predniSONE 20 MG TAB PO SCH (08:44)
[2018-09-22] MEDS: MEMANTINE HCL 10 MG TABLET PO SCH (08:44)
[2018-09-22] MEDS: ISOSORBIDE DINIT 5 MG TAB PO SCH (08:44)
[2018-09-22] MEDS: FUROSEMIDE 40 MG TABLET PO SCH (08:44)
[2018-09-22] MEDS: PANTOPRAZOLE 40MG TABLET PO SCH (08:45)
[2018-09-22] MEDS: CLOPIDOGREL 75 MG TABLET PO SCH (08:45)
[2018-09-22] MEDS: VITAMIN D 1000 UNIT TAB PO SCH (08:45)
[2018-09-22] MEDS: DRONABINOL 5 MG PO SCH (08:46)
[2018-09-22 11:38] VITALS: O2SAT 98
[2018-09-22] MEDS: BUSPIRONE HCL 5 MG TABLET PO SCH (13:34)
--- NOTE | 2018-09-22 13:45 | RAD REPORT ---
EXAM DESCRIPTION: RAD - Chest Single View - 09/22/2018 1:39 pm CLINICAL HISTORY: follow up Influenza, CHF Chest pain. COMPARISON: Chest Single View dated 09/19/2018; Chest Single View dated 07/23/2018; Chest Single View dated 07/09/2018; Chest Single View dated 07/07/2018 FINDINGS: Portable technique limits examination quality. Diffuse COPD is present. The heart is mildly enlarged in size with a single lead pacer/ defibrillator device. Postsurgical changes of a CABG noted. IMPRESSION: Stable chest since 09/19/2018 study.
--- NOTE | 2018-09-22 14:44 | P.DS ---
Admission Date: 09/19/18 Discharge Date: 09/22/18 Primary Care Provider: [facility] Disposition: TRANSFER TO INTERMEDIATE Discharge Condition: GOOD Reason for Admission: SOB Consultations: Pulmonary-Dr. Mirelse Procedures: CXR: COMPARISON: Chest Single View dated 09/19/2018; Chest Single View dated 2018; Chest Single View dated 07/09/2018; Chest Single View dated 07/07/2018 FINDINGS: Portable technique limits examination quality. Diffuse COPD is present. The heart is mildly enlarged in size with a single lead pacer/ defibrillator device. Postsurgical changes of a CABG noted. IMPRESSION: Stable chest since 09/19/2018 study. 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 Patient found to have influenza B complicated with acute on chronic systolic CHF. Patient admitted for treatment. Hospital Course: Patient presented with cough, congestion and shortness of breath. Patient found to have influenza B with likely bronchitis. This was complicated with his acute on chronic systolic CHF. Patient seen and evaluated by pulmonology. Patient did well in his stay. Patient treated with Tamiflu. At discharge patient without need of oxygen. At discharge he will continue with Tamiflu for 3 more days. Recommend to recheck chest x-ray in 2-4 weeks to monitor his progress. At discharge [facility] Patient with acute on chronic systolic CHF. Patient with prior EF of less than 25%. Patient was treated during the course of his stay. His condition improved. At discharge patient will continue with Lasix 40 mg daily, Aldactone 50 mg 1 pill twice daily. Patient also takes beta-dakota therapy. At discharge he will continue with a 1500 cc per day fluid restriction and low- salt diet. Recommend to monitor weight daily. If weight increases by more than 5 lb then medication may need to be further adjusted. This can be addressed by his PCP. Patient with BPH. Patient will continue with Flomax 0.4 mg daily Patient with CAD. Patient will continue with his current medication including Plavix 75 mg daily, Isordil 10 mg 1 pill twice daily, and Ranexa 1000 mg 1 pill twice daily. Recommend a follow up with cardiology as directed. Patient with dementia. Patient will continue with his medication of Exelon patch and Namenda 5 mg daily. Further adjustment can be done by his PCP. Patient with diabetes mellitus type 2. Patient will continue with insulin therapy-Lantus 10 units subcu daily. Recommend to maintain blood sugars less than 140 fasting and less than 200 after meals. Further adjustment may be required. Patient will need to be monitored for hypoglycemia due to his age. Patient with hypothyroidism. Patient will continue with levothyroxine. Patient with hyperlipidemia. Patient will continue with Lipitor 80 mg daily. Patient with hypertension. Patient will continue with metoprolol XL 12.5 mg 1 pill twice daily. Patient with depression. Patient will continue with Buspar. Vital Signs/Physical Exam: Temp Pulse Resp BP Pulse Ox 97.1 F 68 18 114/66 97 09/22/18 12:00 09/22/18 12:00 09/22/18 12:00 09/22/18 12:00 09/22/18 12:00 General: Alert, In no apparent distress, Oriented x3, Cooperative, Demented HEENT: Atraumatic Neck: Supple Respiratory: Clear to auscultation bilaterally, Normal air movement Cardiovascular: Normal pulses, Regular rate/rhythm Gastrointestinal: Normal bowel sounds, Soft and benign, Non-distended Musculoskeletal: No tenderness, No warmth Neurological: Normal speech, Normal strength at 5/5 x4 extr, Normal tone, Dementia Laboratory Data at Discharge: WBC 5.1 K/uL (4.3-10.9) 09/22/18 05:35 Hgb 10.1 g/dL (13.6-17.9) L 09/22/18 05:35 Hct 29.7 % (39.6-49.0) L 09/22/18 05:35 Plt Count 133 K/uL (152-406) L 09/22/18 05:35 PT 12.9 SECONDS (9.5-12.5) H 09/19/18 08:05 INR 1.10 09/19/18 08:05 Sodium 137 mmol/L (136-145) 09/22/18 05:35 Potassium 4.9 mmol/L (3.5-5.1) 09/22/18 05:35 BUN 64 mg/dL (7-18) H 09/22/18 05:35 Creatinine 1.64 mg/dL (0.55-1.3) H 09/22/18 05:35 Glucose 83 mg/dL (74-106) 09/22/18 05:35 Phosphorus 3.3 mg/dL (2.5-4.9) 09/22/18 05:35 Magnesium 2.4 mg/dL (1.8-2.4) 09/22/18 05:35 Total Bilirubin 0.8 mg/dL (0.2-1.0) 09/22/18 05:35 AST 25 U/L (15-37) 09/22/18 05:35 ALT 27 U/L (12-78) 09/22/18 05:35 Alkaline Phosphatase 75 U/L (45-117) 09/22/18 05:35 Home Medications: Acetaminophen 2 tab PO Q6HP PRN 07/23/18 Atorvastatin Calcium 2 tab PO BEDTIME 07/23/18 Buspirone HCl [Buspar] 10 mg PO SEECOM 07/23/18 Cholecalciferol (Vitamin D3) [Vitamin D3] 2 tab PO DAILY 07/23/18 Clopidogrel Bisulfate [Plavix*] 75 mg PO DAILY 07/23/18 Ergocalciferol (Vitamin D2) [Vitamin D2] 50,000 unit PO EVERY 7TH DAY 07/23/18 Insulin Glargine Human [Lantus*] 10 unit SQ DAILY 07/23/18 Lactulose 30 ml PO PRN PRN 07/23/18 Levothyroxine [Synthroid*] 2 tab PO [id number] 07/23/18 Linagliptin [Tradjenta] 5 mg PO DAILY 07/23/18 Memantine HCl [Namenda] 5 mg PO DAILY 07/23/18 Omeprazole 20 mg PO DAILY 07/23/18 Ondansetron HCl [Zofran] 4 mg PO TIDP PRN 07/23/18 Ranolazine [Ranexa] 1 tab PO Q12H 07/23/18 Rivastigmine [Exelon] 13.3 mg TD Q24H 07/23/18 Spironolactone [Aldactone] 1 tab PO BID 07/23/18 Tamsulosin [Flomax*] 0.4 mg PO BEDTIME 07/23/18 Isosorbide Dinit [Isordil*] 10 mg PO BID #30 tab 07/27/18 Metoprolol Tartrate [Lopressor*] 12.5 mg PO BID 6AM 6PM #60 tab 07/27/18 Dronabinol [Marinol] 5 mg PO BID 09/19/18 Furosemide [Lasix*] 40 mg PO DAILY 09/19/18 Loratadine [Claritin*] 10 mg PO DAILY 09/19/18 Protein Supplement [Promod] 30 ml PO DAILY 09/19/18 Oseltamivir Phosphate [Tamiflu Suspension] 5 ml PO DAILY #1 bottle 09/22/18 New Medications: Oseltamivir Phosphate [Tamiflu Suspension] 5 ml PO DAILY #1 bottle Patient Discharge Instructions: 1. [facility] 2. Patient presented with cough, congestion and shortness of breath. Patient found to have influenza B with likely bronchitis. This was complicated with his acute on chronic systolic CHF. Patient seen and evaluated by pulmonology. Patient did well in his stay. Patient treated with Tamiflu. At discharge patient without need of oxygen. At discharge he will continue with Tamiflu for 3 more days. Recommend to recheck chest x-ray in 2-4 weeks to monitor his progress. At discharge patient will [facility] back [facility] the [facility]. 3. Patient with acute on chronic systolic CHF. Patient with prior EF of less than 25%. Patient was treated during the course of his stay. His condition improved. At discharge patient will continue with Lasix 40 mg daily, Aldactone 50 mg 1 pill twice daily. Patient also takes beta-dakota therapy. At discharge he will continue with a 1500 cc per day fluid restriction and low-salt diet. Recommend to monitor weight daily. If weight increases by more than 5 lb then medication may need to be further adjusted. This can be addressed by his PCP. 4. Patient with BPH. Patient will continue with Flomax 0.4 mg daily. 5. Patient with CAD. Patient will continue with his current medication including Plavix 75 mg daily, Isordil 10 mg 1 pill twice daily, and Ranexa 1000 mg 1 pill twice daily. Recommend a follow up with cardiology as directed. 6. Patient with dementia. Patient will continue with his medication of Exelon patch and Namenda 5 mg daily. Further adjustment can be done by his PCP. 7. Patient with diabetes mellitus type 2. Patient will continue with insulin therapy- Lantus 10 units subcu daily. Recommend to maintain blood sugars less than 140 fasting and less than 200 after meals. Further adjustment may be required. Patient will need to be monitored for hypoglycemia due to his age. 8. Patient with hypothyroidism. Patient will continue with levothyroxine. 9. Patient with hyperlipidemia. Patient will continue with Lipitor 80 mg daily. 10. Patient with hypertension. Patient will continue with metoprolol XL 12.5 mg 1 pill twice daily. 11. Patient with depression. Patient will continue with Buspar. Diet: AHA Activity: Fall precautions Time spent managing pt's care (in minutes): 55
[2018-09-22 18:47] VITALS: BP 141/69; TEMP 97.7
== END 2018-09-22 16:35 ==
LOC: ER 07:26 → ERHOLD 11:42 → 2ND 13:30
PROVIDERS: ADMIT Family Medicine; ATTEND Family Medicine
DX: J10.00 Influenza due to other identified influenza virus with unspecified type of pneumonia (principal); R06.03 Acute respiratory distress; R06.01 Orthopnea; I50.23 Acute on chronic systolic (congestive) heart failure; N40.1 Benign prostatic hyperplasia with lower urinary tract symptoms; R39.14 Feeling of incomplete bladder emptying; I25.10 Atherosclerotic heart disease of native coronary artery without angina pectoris; I48.91 Unspecified atrial fibrillation; F02.80 Dementia in other diseases classified elsewhere, unspecified severity, without behavioral disturbance, psychotic disturbance, mood disturbance, and anxiety; G20 Parkinson's disease; K21.9 Gastro-esophageal reflux disease without esophagitis; E78.2 Mixed hyperlipidemia; E03.9 Hypothyroidism, unspecified; E11.9 Type 2 diabetes mellitus without complications; I11.0 Hypertensive heart disease with heart failure; F32.9 Major depressive disorder, single episode, unspecified; J44.9 Chronic obstructive pulmonary disease, unspecified; Z79.4 Long term (current) use of insulin; Z87.891 Personal history of nicotine dependence; Z95.0 Presence of cardiac pacemaker
CPT/HCPCS: 96365; 96367; 93005; 87040 ×2; 85025 ×4; 80048; 36415 ×3; 83735 ×4; 82947; 84100 ×3; 85610; 82962 ×11; 80076; 83605; 84484; 80053 ×3; 84145; 83880; 87804 ×2; 71045 ×2; 97535; 97116 ×2; 97161; 97165; 97530; 94640; 96375; 99285; 96366; J1940; J0456; G9035 ×2; J0696; J2920 ×2; G0378 ×2; J7512

== ENCOUNTER 2018-10-06 13:29 | Inpatient (IN) | payer OTHER ==
--- OUTSIDE RECORDS SUMMARY | 2018-10-06 13:32 | XMS REPORT | Clinical Summary ---
:1935 Author Organization [facility] Address [address] [place] [address] Care Team Providers Name Role Phone Mulugeta [...] Specialty Care Team Description 12/20/2017 Surgery Dwayne Flroes AICD GENERATOR - REMOVE & MD REPLACE (SINGLE LEAD) 12/20/2017 Hospital Encounter Dwayne Flores ICD (implantable MD cardioverter-defibrillator ) battery depletion 12/17/2017 Orders Only Dwayne Flores MD after 10/05/2017 Social History Tobacco Use Types Packs/Day Years [...] on file Implants Implanted Type Area Field Enumerator Device Shelf Model / Identifier Expiration Serial / Date Lot Inogen El Icd Vr Defibrillators N/A: [place] 07/10/2019 [id number] / Implanted: Qty: 1 on 12/20/2017 by Dwayne Flores MD Chest SCIENTIFIC [id number] / Procedures Procedure Name Priority Date/Time Associated [...] 426 ms QTC Calculation(Bazett) 418 ms P [place] 45 degrees R [place] -25 degrees T [place] 139 degrees Atrial flutter with variable A-V block with premature ventricular or aberrantly conducted complexes Possible Anterior infarct , age undetermined ST & T wave abnormality, consider inferolateral ischemia Abnormal ECG No previous ECGs available ECG 12-LEAD Routine 12/20/2017 7:00 AM CDT after 10/05/2017 Results ARRYTHMIA IMPLANT REPORT - SCAN (09/16/2018 7:10 AM CDT)Only the most recent of2 resultswithin the time period is included. Narrative Performed At CARDIAC CATH REPORT - SCAN (12/24/2017 5:44 PM CDT) Narrative Performed At CBC with platelet count + automated diff (12/20/2017 7:05 AM CDT) WBC 4.6 3.5 - 10.5 K/L [facility] RBC 3.33 (L) 4.63 - 6.08 M/L [facility] Hemoglobin 10.1 (L) 13.7 - 17.5 GM/DL [facility] Hematocrit 31.9 (L) 40.1 - 51.0 % [facility] MCV 95.8 (H) 79.0 - 92.2 fL [facility] MCH 30.3 25.7 - 32.2 pg [facility] MCHC 31.7 (L) 32.3 - 36.5 GM/DL [facility] RDW 17.4 (H) 11.6 - 14.4 % [facility] Platelets 99 (L) 150 - 450 K/CU MM [facility] MPV 11.0 9.4 - 12.4 fL [facility] nRBC 0 0 - 0 /100 WBC [facility] % Neutros 68 % [facility] % Lymphs 20 % [facility] % Monos 9 % [facility] % Eos 2 % [facility] % Baso 0 % [facility] # Neutros 3.12 1.78 - 5.38 K/L [facility] # Lymphs 0.93 (L) 1.32 - 3.57 K/L [facility] # Monos 0.40 0.30 - 0.82 K/L [facility] # Eos 0.09 0.04 - 0.54 K/L [facility] # Baso 0.01 0.01 - 0.08 K/L [facility] Immature Granulocytes-Relative 0 0 - 1 % [facility] Specimen Blood Performing Organization Address City/State/Zipcode Phone Number [address] [address] [phone] [place] Prothrombin time/INR (12/20/2017 7:05 AM CDT) Protime 15.1 (H) 11.7 - 14.7 seconds [facility] INR 1.2 <=5.9 [facility] Specimen Blood Narrative Performed At [facility] RECOMMENDED COUMADIN/WARFARIN INR THERAPY RANGES STANDARD DOSE: 2.0 - 3.0 Includes: PROPHYLAXIS for venous thrombosis, systemic embolization; TREATMENT for venous thrombosis and/or pulmonary embolus. HIGH RISK: Target INR is 2.5-3.5 for patients with mechanical heart valves. Performing Organization Address [facility] Phone Number [address] [address] [phone] [place] Basic metabolic panel (12/20/2017 7:05 AM CDT) Sodium 142 136 - 145 meq/L [facility] Potassium 4.1 3.5 - 5.1 meq/L [facility] Chloride 105 98 - 107 meq/L [facility] CO2 28 22 - 29 meq/L [facility] BUN 30 (H) 7 - 21 mg/dL [facility] Creatinine 1.90 (H) 0.57 - 1.25 mg/dL [facility] Glucose 118 (H) 70 - 105 mg/dL [facility] Calcium 9.1 8.4 - 10.2 mg/dL [facility] EGFR 34Comment: ESTIMATED GFR IS mL/min/1.73 sq m [facility] NOT ACCURATE CREATININE [facility] CLEARANCE IN PREDICTING GLOMERULAR FILTRATION RATE. ESTIMATED GFR IS NOT APPLICABLE FOR DIALYSIS PATIENTS. Specimen Blood Performing Organization Address [facility]/Zipcode Phone Number [address] [address] CENTER ECG 12 lead (12/20/2017 7:00 AM CDT) Specimen Narrative Performed At Ventricular Rate 58 BPM GE MUSE Atrial Rate 232 BPM QRS Duration 98 ms Q-T Interval 426 ms QTC Calculation(Bazett) 418 ms P [place] 45 degrees R [place] -25 degrees T [place] 139 degrees Atrial flutter with variable A-V block with premature ventricular or aberrantly conducted complexes Abnormal ECG No previous ECGs available Confirmed by James BEJARANO MICHAEL ([id number]) on 12/20/2017 7:33:36 AM Procedure Note Interface, External Ris In - 12/20/2017 7:33 AM CDT Ventricular Rate 58 BPM Atrial Rate 232 BPM QRS Duration 98 ms Q-T Interval 426 ms QTC Calculation(Bazett) 418 ms P [place] 45 degrees R [place] -25 degrees T [place] 139 degrees Atrial flutter with variable A-V block with premature ventricular or aberrantly conducted complexes Abnormal ECG No previous ECGs available Confirmed by James BEJARANO MICHAEL ([id number]) on 12/20/2017 7:33:36 AM Performing Organization Address City/State/Zipcode Phone Number [place] after 10/05/2017 Insurance Payer Benefit Plan / Subscriber ID Type Phone Address Group [employer] - [employer] MEDICARE xxxxxxxx Maps Contracted [phone] [address] MEDICARE MGD HMO POS [address] [place] [address] MEDICAID MEDICAID OF xxxxxxxxx Medicaid [place] Advance Directives Patient has advance care planning documents, and code status on file. For more information, please contact:[address] [phone] Code Status Date Activated Date Inactivated Comments Full Code 12/20/2017 6:40 AM 12/20/2017 3:38 PM This code status was determined by: Patient
--- OUTSIDE RECORDS SUMMARY | 2018-10-06 13:49 | XMS REPORT | Continuity of Care Document ---
:1935 Author Organization Interface Problems Problem Status Onset Classification Date Comments Source Date Reported Irritability and anger The [address] [place] [address] Anger reaction The [address] [place] [address] Dementia The [address] [place] [address] FALL ON BLOODTHINNERS Active 08/06/ The 2018 [place] Discharge Diagnosis: [facility] Chronic renal 2017 7 insufficiency Discharge Diagnosis: [facility] Chronic CHF 2017 7 ABNORMAL LABS Active 05/30/ [facility] 2016 AFIB/DIZZY Active 11/02/ [facility] 2017 CP Active 12/[facility] 2015 UNSTABLE ANGINA Active 05/16/ [address] 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 Heart failure Active Problem [facility] 2 Heart failure Active Problem [facility] Outpatient 5 Imaging [facility] CAD (<span Active Problem [place] ID="[id number]">Conf 7 Medical irmed</span>) [facility] Heart failure Active Problem [facility] Outpatient 7 Imaging [facility] HTN (<span Resolved Problem [place] ID="[id number]">Conf 7 Medical irmed</span>) [facility] [place] (<span Resolved Problem [place] ID="[id number]">Conf 7 Medical irmed</span>) [facility] Presence of automatic Active Problem Cardiovascular cardiac defibrillator [facility] Atherosclerotic heart Active Problem Cardiovascular disease of [place] [facility] coronary artery with other forms [...] Active Diagnosis Cardiovascular atherosclerosis of [facility] [place] vessel Diabetes mellitus type Active Problem Cardiovascular [...] 5 Assoc Unspecified dementia The without behavioral [address] [place] [address] disturbance Laceration without The foreign body of left [address] [place] [address] elbow, initial encounter Abrasion of scalp, The initial encounter [address] [place] [address] Abrasion of right The forearm, initial [address] [place] [address] encounter Striking against other The stationary object, [address] [place] [address] initial encounter Essential hypertension The [address] [place] [address] 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 [address] [place] [address] Personal history of The nicotine dependence [address] [place] [address] Encounter for The immunization [address] [place] [address] CAD (<span Active Problem [facility] ID="[id number]">Conf 8 Medical irmed</span>) [facility] Heart failure Active Problem [facility] Outpatient 8 Imaging [place] HTN (<span Resolved Problem [facility] ID="[id number]">Conf 8 Medical irmed</span>) Center,[facility] [place] (<span Resolved Problem [facility] ID="[id number]">Conf 8 Medical irmed</span>) Center,[facility] CHR SYSTOLIC HRT Active [facility] FAILURE ANGINA PECTORIS, Active [facility] UNSPECIFIED Medical Center ENCOUNTER FOR Active [facility] SCREENING FOR Medical Center MALIGNANT NE NON-ST ELEVATION Active [facility] (NSTEMI) MYOCARDIAL INF CHEST PAIN, Active [facility] UNSPECIFIED UNSPECIFIED ATRIAL Active [facility] FIBRILLATION Medications Medication Details Route Status Patient Ordering Order Source Instructions Provider Date Saline Flush 10 mL, Inactive The 0.9% Route: IVP2017 [place] Drug Form: INJ, Dosing Weight 83.182, kg, PRN, PRN Line Flush, Start date: 08/06/17 1:02:00 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, Duration: 30 day, Stop date: 09/05/17 2:01:00 CDTNotes: Same as: BD Posiflush Sterile Saline Flush 10 mL, Inactive 0.9% Route: IVP2016 [facility] Drug Form: INJ, Dosing Weight 83.182, kg, PRN, PRN Line Flush, Start date: 05/30/17 11:48:00 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, Duration: 1 day, Stop date: 05/31/17 11:47:00 [...] mg=1 Active oral tablet tab, PO, 2016 [facility] Q12H, # 60 tab, 0 Refill(s) 24 HR 25 mg=1 Active Metoprolol tab, PO, 2016 [facility] Tartrate 25 MG Q12H, # 60 Extended tab, 0 Release Tablet Refill(s) [Toprol] glimepiride 1 mg, No Longer Route: PO, Active 2016 [facility] Daily, Dosing Weight 85, kg, Start date: 11/03/16 9:00:00 CDT, Duration: 30 day, Stop date: 12/02/16 9:00:00 CDT Furosemide 40 40 mg, 1 Inactive MG Oral Tablet tab, Route: 2016 [facility] PO, Drug form: TAB, Daily, Dosing Weight 85, kg, Start date: 11/03/16 9:00:00 CDT, Duration: 30 day, Stop date: 12/02/16 9:00:00 CDTNotes: (Same as: Lasix) May cause GI upset. Give with food or milk. Losartan 50 mg, 1 Inactive tab, Route: 2016 [facility] PO, Drug form: TAB, Daily, Dosing Weight 85, kg, Start date: 11/03/16 9:00:00 CDT, Duration: 30 day, Stop date: 12/02/16 9:00:00 CDTNotes: (Same as: Cozaar) Glucotrol 5 mg, 1 Inactive tab, Route: 2016 [facility] PO, Drug form: TAB, Daily, Start date: 11/03/16 9:00:00 CDT, Duration: 30 day, Stop date: 12/02/16 9:00:00 CDTNotes: (Same as: Glucotrol) 30 min before meals. Eliquis 2.5 mg, 1 Inactive tab, Route: 2016 [facility] PO, Drug form: TAB, Q12H, Dosing Weight 83.636, kg, Start date: 11/03/16 9:00:00 CDT, Duration: 30 day, Stop date: 12/02/16 21:00:00 CDTNotes: Same as: Eliquis tamsulosin 0.4 mg, 1 Inactive cap, Route: 2016 [facility] PO, Drug form: CAP, Daily, Dosing Weight 85, kg, Start date: 11/03/16 9:00:00 CDT, Duration: 30 day, Stop date: 12/02/16 9:00:00 CDTNotes: (Same As: Flomax) "Do Not Crush" Aldactone 25 mg, 1 Inactive tab, Route: 2016 [facility] PO, Drug form: TAB, Daily, Dosing Weight 85, kg, Start date: 11/03/16 9:00:00 CDT, Duration: 30 day, Stop date: 12/02/16 9:00:00 CDTNotes: (Same As: Aldactone) Synthroid 200 Inactive microgram, 2016 [facility] 2 tab, Route: PO, Drug form: TAB, Q630AM, Dosing Weight 85, kg, Start date: 11/03/16 6:30:00 CDT, Duration: 30 day, Stop date: 12/02/16 6:30:00 CDTNotes: Take 1 hour before or 2 hours after meal; Enteral feeds may interefere with the absorption of this medication. (Same as:Levothro id, Synthroid) Insulin, 3 unit, No Longer Aspart, Human 0.03 mL, Active 2016 [facility] Route: SUB-Q, Drug form: SOLN, Bedtime, [...] Glucagon 1 mg, Inactive Route: IM, 2016 [facility] PRN, Dosing Weight 83.636, kg, PRN Blood Glucose Results, Start date: 11/02/16 21:49:00 CDT, Duration: 30 day, Stop date: 12/02/16 21:48:00 CDT Dextrose 50% 25 mL, Inactive Syringe Route: IVP, 2016 [facility] Dosing Weight 83.636, kg, PRN, PRN Blood Glucose Results, Start date: 11/02/16 21:49:00 CDT, Duration: 30 day, Stop date: 12/02/16 21:48:00 CDT Morphine 2 mg, 1 mL, No Longer Route: IVP, Active 2016 [facility] Drug form: INJ, Q4H, Dosing Weight 83.636, kg, PRN Pain Score 7-10, Start date: 11/02/16 21:45:00 CDT, Duration: 30 day, Stop date: 12/02/16 21:44:00 CDTNotes: (Same as:MORPhine Sulfate) Benadryl 25 mg, 1 Inactive tab, Route: 2016 [facility] PO, Drug form: TAB, ONCE, Dosing Weight 83.636, kg, PRN Insomnia, Start date: 11/02/16 21:43:00 CDT Lipitor 10 mg, 1 No Longer tab, Route: Active 2016 [facility] PO, Drug form: TAB, Bedtime, Dosing Weight 85, kg, Start date: 11/02/16 21:00:00 CDT, Duration: 30 day, Stop date: 12/01/16 21:00:00 CDTNotes: (Same As: Lipitor) Ranexa 1,000 mg, 2 No Longer tab, Route: Active 2016 [facility] PO, Drug form: TAB, Q12H, Dosing Weight 85, kg, Start date: 11/02/16 21:00:00 CDT, Duration: 30 day, Stop date: 12/02/16 9:00:00 CDTNotes: Same as Ranexa "Do Not Crush" Prilosec 20 mg, Inactive Route: PO, 2016 [facility] Drug form: DRC, Bedtime, Dosing Weight 85, kg, Start date: 11/02/16 21:00:00 CDT, Duration: 30 day, Stop date: 12/01/16 21:00:00 CDT 24 HR 25 mg, 1 No Longer Metoprolol tab, Route: Active 2016 [facility] Tartrate 25 MG PO, Drug Extended form: Release Tablet ERTAB, [Toprol] Q12H, Start date: 11/02/16 21:00:00 CDT, Duration: 30 day, Stop date: 12/02/16 9:00:00 CDTNotes: (Same as: Toprol XL) Do Not Crush Hydralazine 10 mg, 0.5 No Longer mL, Route: Active 2016 [facility] IVP, Drug form: INJ, Q4H, Dosing Weight 85, kg, PRN Hypertensio n, Start date: 11/02/16 16:38:00 CDT, Duration: 30 day, Stop date: 12/02/16 16:37:00 CDTNotes: (Same as: Apresoline) Push over 5 minutes clopidogrel 75 mg, 1 No Longer tab, Route: Active 2016 [facility] PO, Drug form: TAB, Daily, Dosing Weight 85, kg, Start date: 11/02/16 16:30:00 CDT, Duration: 30 day, Stop date: 12/02/16 9:00:00 CDTNotes: (Same As: Plavix) aspirin 81 mg 81 mg, 1 No Longer tablet, enteric tab, Route: Active 2016 [facility] coated PO, Drug form: ECTAB, Daily, Dosing Weight 85, kg, Start date: 11/02/16 16:30:00 CDT, Duration: 30 day, Stop date: 12/02/16 9:00:00 CDTNotes: Do not crush or chew. (Same As: Ecotrin) Protonix 40 mg, 1 No Longer tab, Route: Active 2016 [facility] PO, Drug form: ECTAB, Before Dinner, Start date: 11/02/16 16:30:00 CDT, Duration: 30 day, Stop date: 12/01/16 16:30:00 CDTNotes: Tablet should not be chewed or crushed. (Same as: Protonix) 24 HR 25 mg, 1 Inactive Metoprolol tab, Route: 2017 [facility] Tartrate 25 MG PO, Drug Extended form: Release Tablet ERTAB, [Toprol] Daily, Start date: 11/02/16 16:30:00 CDT, Duration: 30 day, Stop date: 12/02/16 9:00:00 CDTNotes: (Same as: Toprol XL) Do Not Crush 24 HR 12.5 mg, No Longer Metoprolol PO, Daily, Active 2016 [facility] Tartrate 25 MG 0 Refill(s) Extended Release Tablet [Toprol] Insulin, 5 unit, No Longer Aspart, Human 0.05 mL, Active 2016 [facility] Route: SUB-Q, Drug form: SOLN, TID-Before [...] mg, No Longer Route: IM, Active 2016 [facility] Drug form: PDR/INJ, PRN, Dosing Weight 85, kg, PRN Blood Glucose Results, Start date: 11/02/16 14:36:00 CDT, Duration: 30 day, Stop date: 12/02/16 14:35:00 CDT Dextrose 50% 25 gm, 50 No Longer Syringe mL, Route: Active 2016 [facility] IVP, Drug Form: INJ, Dosing Weight 85, kg, PRN, PRN Blood Glucose Results, Start date: 11/02/16 14:36:00 CDT, Duration: 30 day, Stop date: 12/02/16 14:35:00 CDT Metoprolol 5 mg, 5 mL, No Longer Route: IVP, Active 2016 [facility] Drug form: INJ, Q4H, Dosing Weight 85, kg, PRN Tachycardia , Start date: 11/02/16 14:28:00 CDT, Duration: 30 day, Stop date: 12/02/16 14:27:00 CDTNotes: (Same as: Lopressor) Push over 2 minutes Lasix 1 tab(s) orally Active 40 mg orally [place] 09/25/ Cardiovasc once a day 2016 [facility] atorvastatin 10 10 mg=1 Active MG Oral Tablet tab, PO, 2015 [facility] [Lipitor] Bedtime carvedilol 6.25 mg=2 Active 3.125 mg oral tab, PO, 2015 [facility] tablet BID, 0 Refill(s) Aspirin 81 MG 81 mg, 1 No Longer Enteric Coated tab, Route: Active 2015 [facility] Tablet PO, Drug form: ECTAB, Daily, Dosing Weight 83.455, kg, Start date: 12/30/15 9:00:00 CDT, Duration: 30 day, Stop date: 01/28/16 9:00:00 CDTNotes: Do not crush or chew. (Same As: Ecotrin) Furosemide 40 40 mg, 1 Inactive MG Oral Tablet tab, Route: 2015 [facility] PO, Drug form: TAB, Daily, Dosing Weight 83.455, kg, Start date: 12/30/15 9:00:00 CDT, Duration: 30 day, Stop date: 01/28/16 9:00:00 CDTNotes: (Same as: Lasix) May cause GI upset. Give with food or milk. Aspirin 325 MG 325 mg, 1 Inactive Enteric Coated tab, Route: 2015 [facility] Tablet PO, Drug form: TAB, Daily, Dosing Weight 83.455, kg, Start date: 12/30/15 9:00:00 CDT, Duration: 30 day, Stop date: 01/28/16 9:00:00 CDTNotes: Take with food. clopidogrel 75 mg, No Longer Route: PO, Active 2015 [facility] Drug form: TAB, Daily, Dosing Weight 83.455, kg, Start date: 12/30/15 9:00:00 CDT, Duration: 30 day, Stop date: 01/28/16 9:00:00 CDT Losartan 50 mg, 1 Inactive tab, Route: 2015 [facility] PO, Drug form: TAB, Daily, Dosing [...] 2 No Longer tab, Route: Active 2015 [facility] PO, Drug form: TAB, BID, Dosing Weight 83.455, kg, Start date: 12/29/15 21:00:00 CDT, Duration: 30 day, Stop date: 01/28/16 9:00:00 CDTNotes: Give with food. (Same As: Coreg) Lipitor 40 mg, 1 Inactive tab, Route: 2015 [facility] PO, Drug form: TAB, Bedtime, Start [...] 2 No Longer tab, Route: Active 2015 [facility] PO, Drug form: TAB, BID, Dosing Weight 83.455, kg, Start date: 12/29/15 21:00:00 CDT, Duration: 30 day, Stop date: 01/28/16 9:00:00 CDTNotes: Same as Ranexa "Do Not Crush" Prilosec 20 mg, Inactive Route: PO, 2015 [facility] Drug form: DRC, Bedtime, Dosing Weight 83.455, kg, Start date: 12/29/15 21:00:00 CDT, Duration: 30 day, Stop date: 01/27/16 21:00:00 CDT tamsulosin 0.4 mg, 1 No Longer cap, Route: Active 2015 [facility] PO, Drug form: CAP, Daily, Dosing Weight 83.455, kg, Start date: 12/29/15 18:00:00 CDT, Duration: 30 day, Stop date: 01/27/16 18:00:00 CDTNotes: (Same As: Flomax) "Do Not Crush" Aldactone 25 mg, 1 No Longer tab, Route: Active 2015 [facility] PO, Drug form: TAB, BID, Dosing Weight 83.455, kg, Start date: 12/29/15 17:00:00 CDT, Duration: 30 day, Stop date: 01/28/16 9:00:00 CDTNotes: (Same As: Aldactone) glimepiride 1 mg, 0.5 No Longer tab, Route: Active 2015 [facility] PO, Drug form: TAB, BID-Meals, Dosing Weight 83.455, kg, Start date: 12/29/15 17:00:00 CDT, Duration: 30 day, Stop date: 01/28/16 8:00:00 CDTNotes: (Same as: Amaryl) Protonix 40 mg, 1 No Longer tab, Route: Active 2015 [facility] PO, Drug form: ECTAB, Before Dinner, Start date: 12/29/15 16:30:00 CDT, Duration: 30 day, Stop date: 01/27/16 16:30:00 CDTNotes: Tablet should not be chewed or crushed. (Same as: Protonix) Acetaminophen 1 tab, No Longer 325 MG / Route: PO, Active 2015 [facility] Hydrocodone Drug Form: Bitartrate 7.5 TAB, Dosing MG Oral Tablet Weight [[place] 7.5/325] 83.455, kg, Q6H, PRN Pain Score 4-6, Start date: 12/29/15 16:20:00 CDT, Duration: 30 day, Stop date: 01/28/16 16:19:00 CDTNotes: Same as [place] 325-7.5mg Do not exceed 4gm/day of acetaminoph en. Nitroglycerin 0.4 mg, 1 No Longer tab, Route: Active 2015 [facility] SL, Drug form: TAB, Q5Min, Dosing Weight 83.455, kg, PRN Chest Pain, Start date: 12/29/15 15:39:00 CDT, Duration: 30 day, Stop date: 01/28/16 15:38:00 CDTNotes: (Same as:Nitroqui ck, Nitrostat) "Do Not Crush" Sublingual tablet Famotidine 20 mg, 1 No Longer tab, Route: Active 2015 [facility] PO, Drug form: TAB, Q12H, Dosing Weight 83.455, kg, PRN Heartburn, Start date: 12/29/15 15:39:00 CDT, Duration: 30 day, Stop date: 01/28/16 15:38:00 CDTNotes: (Same as: Pepcid) Nitroglycerin 0.4 mg, Inactive Route: 2015 [facility] Transdermal , PRN, Dosing Weight 83.455, kg, PRN Abnormal Lab Result, Start date: 12/29/15 15:36:00 CDT, Duration: 30 day, Stop date: 01/28/16 15:35:00 CDT Insulin, 4 unit, No Longer Aspart, Human 0.04 mL, Active 2015 [facility] Route: SUB-Q, Drug form: SOLN, Bedtime, [...] mg, No Longer Route: IM, Active 2015 [facility] Drug form: PDR/INJ, PRN, Dosing Weight 83.455, kg, PRN Blood Glucose Results, Start date: 12/29/15 14:46:00 CDT, Duration: 30 day, Stop date: 01/28/16 14:45:00 CDT Dextrose 50% 25 gm, 50 No Longer Syringe mL, Route: Active 2015 [facility] IVP, Drug Form: INJ, Dosing Weight 83.455, kg, PRN, PRN Blood Glucose Results, Start date: 12/29/15 14:46:00 CDT, Duration: 30 day, Stop date: 01/28/16 14:45:00 CDT Acetaminophen 650 mg, 2 No Longer tab, Route: Active 2015 [facility] PO, Drug form: TAB, Q6H, Dosing Weight 83.455, kg, PRN Pain Score 1-3, Start date: 12/29/15 12:43:00 CDT, Duration: 30 day, Stop date: 01/28/16 12:42:00 CDTNotes: Do not exceed 4 gm/day. (Same as: Tylenol) Sodium Chloride 600 mL, Inactive 0.154 MEQ/ML Rate: 100 2015 [facility] Injectable ml/hr, Solution Infuse over: 6 hr, Route: IV, Dosing Weight 83.455 kg, Total Volume: 600, Priority: NOW, Start date: 12/29/15 9:38:00 CDT, Stop date: 12/29/15 21:37:00 CDT Plavix 75 mg, 1 No Longer tab, Route: Active 2015 [facility] PO, Drug form: TAB, Daily, Dosing Weight 83.455, kg, Priority: NOW, Start date: 12/29/15 9:09:00 CDT, Duration: 30 day, Stop date: 01/28/16 9:00:00 CDTNotes: (Same As: Plavix) Aspirin 325 MG 325 mg, 1 Inactive Enteric Coated tab, Route: 2015 [facility] Tablet PO, Daily, Dosing Weight 83.455, kg, Priority: NOW, Start date: 12/29/15 9:09:00 CDT, Duration: 30 day, Stop date: 01/28/16 9:00:00 CDT Streptococcus 0.5 mL, Inactive pneumoniae Route: IM, 2015 [facility] serotype 1 Drug Form: capsular INJ, Daily, antigen Start date: diphtheria 12/29/15 [id number] protein 9:00:00 conjugate CDT, vaccine / Duration: 1 Streptococcus doses or pneumoniae times, Stop serotype 14 date: capsular 12/29/15 antigen 9:00:00 diphtheria CDTNotes: [id number] protein Lightly conjugate roll vial vaccine / (DO NOT Streptococcus SHAKE) pneumoniae before serotype 18C administrat capsular ion. (Same antigen d as: Prevnar 13) glimepiride 1 mg, PO, Active BID-Meals, 2015 [facility] 0 Refill(s) Saline Flush 10 ml, No Longer 0.9% Route: IVP, Active 2015 [facility] Drug Form: INJ, Dosing Weight 83.455, kg, Q12H, Start date: 12/28/15 21:00:00 CDT, Duration: 30 day, Stop date: 01/27/16 9:00:00 CDTNotes: (Same as: BD Posiflush) Zofran 4 mg, 2 mL, No Longer Route: IVP, Active 2015 [facility] Drug form: INJ, Q8H, Dosing Weight 84.716, kg, PRN as needed for nausea/vomi ting, Start date: 12/28/15 19:06:00 CDT, Duration: 30 day, Stop date: 01/27/16 19:05:00 CDTNotes: (Same as: Zofran) MEDICATION WASTE Product Size: 4 mg Product Wasted: ___ mg Saline Flush 10 ml, No Longer 0.9% Route: IVP, Active 2015 [facility] Drug Form: INJ, Dosing Weight 83.455, [...] Longer unit/kg Bolus PRN, 2,200 Active 2015 [facility] (Heparin Dosing unit, 2.2 Weight) mL, Drug form: INJ, PRN, Heparin Protocol, Start date: 12/28/15 16:59:00 CDT Stop date: 01/27/16 16:58:00 CDT, 30 day heparin 500 mL, No Longer additive 25,000 Rate: 17.65 Active 2015 [facility] unit [12 ml/hr, unit/kg/hr] + Infuse Premix Diluent over: 28.3 Dextrose 5% 500 hr, Route: mL IV, Dosing Weight 73.55 kg, Total Volume: 500 mL, Start date: 12/28/15 16:59:00 CDT, Duration: 30 day, Stop date: 01/27/16 16:58:00 CDT Heparin 60 Route: IVP, No Longer unit/kg Bolus PRN, 4,400 Active 2015 [facility] (Heparin Dosing unit, 4.4 Weight) mL, Drug form: INJ, PRN, Heparin Protocol, Start date: 12/28/15 16:59:00 CDT Stop date: 01/27/16 16:58:00 CDT, 30 day Heparin - one 4,000 unit, Inactive time bolus for 4 mL, 2015 [facility] Route: IV, Drug form: INJ, ONCE, Dosing Weight 84.716, kg, Priority: STAT, Start date: 12/28/15 16:59:00 CDT, Stop date: 12/28/15 16:59:00 CDT Aspirin 325 mg, 1 Inactive tab, Route: 2015 [facility] PO, Drug form: TAB, ONCE, Dosing [...] heparin Tylenol 650 mg, 2 No Longer [place] tab, Route: Active 2014 [facility] PO, Drug Center form: TAB, Q6H, Dosing Weight 85, kg, PRN Pain Score 1-3, Start date: 05/21/15 0:22:00, Duration: 30 day, Stop date: 06/20/15 0:21:00Note s: Do not exceed 4 gm/day. (Same as: Tylenol) potassium 40 mEq, 2 No Longer [place] chloride tab, Route: Active 2014 [facility] PO, Drug Center form: ERTAB, Q12H, Dosing Weight 85, kg, Start date: 05/20/15 21:00:00, Stop date: 05/21/15 21:00:00Not es: (Same as: K-Dur 20) "Do Not Crush" With food and full glass of water normal saline 1,000 mL, No Longer [place] 0.9% IV 1,000 Rate: 50 Active 2014 [facility] mL ml/hr, [place] Infuse over: 20 hr, Route: IV, Dosing [...] es: (Same as: Mag-Ox 400) Magnesium oxide 159ix=310om elemental magnesium Dose=____mg magnesium oxide (___mg elemental [...] Chloride) Nitroglycerin 0.4 mg, 1 No Longer [place] tab, Route: Active 2014 [facility] SL, Drug Center form: TAB, Q5Min, Dosing Weight 85, kg, PRN Chest Pain, Start date: 05/20/15 13:14:00, Duration: 3 doses or times, Stop date: Limited # of timesNotes: (Same as:Nitroqui ck, Nitrostat) "Do Not Crush" Sublingual tablet Plavix 75 mg, 1 No Longer [place] tab, Route: Active 2014 [facility] PO, Drug Center form: TAB, Daily, Dosing Weight 85, kg, Start date: 05/20/15 9:00:00, Duration: 30 day, Stop date: 06/18/15 9:00:00Note s: (Same As: Plavix) Lactulose 667 10 gm, 15 No Longer [place] MG/ML Oral mL, Route: Active 2014 [facility] Solution PO, Drug Center Form: SYRP, Dosing Weight 85, kg, QID, PRN as needed for constipatio n, Start date: 05/19/15 23:08:00, Duration: 30 day, Stop date: 06/18/15 23:07:00Not es: (Same as:[place] c) normal saline 1,000 mL, No Longer [place] 0.9% IV 1,000 Rate: 75 Active 2014 [facility] mL ml/hr, Center Infuse over: 13.3 hr, Route: IV, Dosing Weight 85 kg, Total Volume: 1,000, Start date: 05/19/15 23:08:00, Duration: 30 day, Stop date: 06/18/15 23:07:00 Plavix 300 mg, 1 Inactive [place] tab, Route: 2014 [facility] PO, Drug Center form: TAB, ONCE, Dosing Weight 85, kg, Priority: Within 4 hours, Start date: 05/19/15 12:39:00, Duration: 1 doses or times, Stop date: 05/19/15 12:39:00Not es: ( Same as: Plavix) Miralax 17 gm, 1 No Longer [place] pkt, Route: Active 2014 [facility] PO, Drug Center form: PWDR, Daily, Dosing Weight 85, kg, Priority: NOW, Start date: 05/18/15 16:37:00, Duration: 30 day, Stop date: 06/17/15 9:00:00Note s: Dissolve in 8 oz of water or juice. (Same as: Miralax) sennosides, SHELTER 8.6 mg, 1 No Longer [place] tab, Route: Active 2014 [facility] PO, Drug Center Form: TAB, Dosing Weight 85, kg, Daily, NOW, Start date: 05/18/15 16:37:00, Duration: 30 day, Stop date: 06/17/15 9:00:00Note s: (Same as: Senokot) Docusate 100 mg, Inactive [place] Route: PO, 2014 [facility] Drug form: [place] CAP, Daily, Dosing Weight 85, kg, Priority: NOW, Start date: 05/18/15 16:37:00, Duration: 30 day, Stop date: 06/17/15 9:00:00 Lipitor 40 mg, 2 No Longer [place] tab, Route: Active 2014 [facility] PO, Drug Center form: TAB, Bedtime, Start date: 05/17/15 21:00:00, Duration: 30 day, Stop date: 06/15/15 21:00:00Not es: (Same As: Lipitor) Crestor 20 mg, Inactive [facility] Route: PO, 2014 [facility] Drug form: [place] TAB, Bedtime, Dosing Weight 85, kg, Start date: 05/17/15 21:00:00, Duration: 30 day, Stop date: 06/15/15 21:00:00 Prilosec 20 mg, Inactive [facility] Route: PO, 2014 [facility] Drug form: [place] DRC, Bedtime, Dosing Weight 85, kg, Start [...] Furosemide 40 40 mg, 1 No Longer [place] MG Oral Tablet tab, Route: Active 2014 [...] Cozaar) Coreg 6.25 mg, 1 No Longer [place] tab, Route: Active 2014 [facility] PO, Drug Center form: TAB, BID, Dosing Weight 85, kg, Start date: 05/17/15 9:00:00, Duration: 30 day, Stop date: 06/15/15 17:00:00Not es: Give with food. (Same As: Coreg) tamsulosin 0.4 mg, 1 No Longer [place] cap, Route: Active 2014 [facility] PO, Drug Center form: CAP, After Breakfast, Dosing Weight 85, kg, Start date: 05/17/15 8:30:00, Duration: 30 day, Stop date: 06/15/15 8:30:00Note s: (Same As: Flomax) "Do Not Crush" Synthroid 200 No Longer [place] microgram, Active 2014 [facility] 1 tab, Center Route: PO, Drug form: TAB, Q630AM, Dosing Weight 85, kg, Start date: 05/17/15 6:30:00, Duration: 30 day, Stop date: 06/15/15 6:30:00Note s: Take 1 hour before or 2 hours after meal; Enteral feeds may interefere with the absorption of this medication. (Same as: Levothroid) heparin sodium, Route: IVP, No Longer [place] porcine 1000 PRN, 4,400 Active 2014 [facility] UNT/ML unit, 4.4 Center Injectable mL, Drug Solution form: INJ, PRN, Heparin Protocol, Start date: 05/17/15 1:38:00 Stop date: 06/16/15 1:37:00, 30 day heparin 500 mL, No Longer [place] additive 25,000 Rate: 17.68 Active 2014 [facility] unit [12 ml/hr, Center unit/kg/hr] + Infuse Premix Diluent over: 28.3 Dextrose 5% 500 hr, Route: mL IVPB, Dosing Weight 73.66 kg, Total Volume: 500 mL, Start date: 05/17/15 1:38:00, Duration: 30 day, Stop date: 06/16/15 1:37:00 Plavix 75 mg, 1 Inactive tab, Route: 2014 [facility] PO, Drug form: TAB, Daily, Dosing Weight 83.2, kg, Start date: 05/16/15 9:00:00, Duration: 30 day, Stop date: 06/14/15 9:00:00Note s: (Same As: Plavix) Plavix 600 mg, 2 Inactive tab, Route: 2014 [facility] PO, Drug form: TAB, ONCE, Dosing Weight 83.2, kg, Priority: NOW, Start date: 05/15/15 10:37:00, Duration: 1 doses or times, Stop date: 05/15/15 10:37:00Not es: ( Same as: Plavix) Insulin, 10 unit, No Longer Aspart, Human 0.1 mL, Active 2014 [facility] Route: SUB-Q, Drug form: SOLN, TID-Before [...] No Longer Syringe mL, Route: Active 2014 [facility] IVP, Drug Form: INJ, Dosing Weight 83.2, kg, PRN, PRN Blood Glucose Results, Start date: 05/14/15 11:54:00, Duration: 30 day, Stop date: 06/13/15 11:53:00 Glucagon 1 mg, No Longer Route: IM, Active 2014 [facility] Drug form: PDR/INJ, PRN, Dosing Weight 83.2, kg, PRN Blood Glucose Results, Start date: 05/14/15 11:54:00, Duration: 30 day, Stop date: 06/13/15 11:53:00 Magnesium 2 gm, 50 Inactive Sulfate mL, Route: 2014 [facility] IVPB, Drug form: INJ, ONCE, Dosing Weight 83.2, kg, Start date: 05/14/15 8:24:00, Duration: 2 hr, Stop date: 05/14/15 8:24:00 Coreg 3.125 mg, Inactive Route: PO, 2014 [facility] Drug form: TAB, Q12H, Dosing Weight 83.2, kg, hold sbp Crestor 20 mg, Inactive Route: PO, 2014 [facility] Drug form: TAB, Bedtime, Dosing Weight 83.2, kg, Start date: 05/13/15 21:00:00, Duration: 30 day, Stop date: 06/11/15 21:00:00 Lipitor 40 mg, 1 No Longer tab, Route: Active 2014 [facility] PO, Drug form: TAB, Bedtime, Start date: 05/13/15 21:00:00, Duration: 30 day, Stop date: 06/11/15 21:00:00Not es: (Same as: Lipitor) heparin sodium, 4,000 unit, Inactive porcine 5000 4 mL, 2014 UNT/ML Route: IV, Injectable Drug form: Solution INJ, ONCE, Dosing Weight 83.2, kg, Start date: 05/13/15 14:00:00, Stop date: 05/13/15 14:00:00 Lasix 20 mg, 2 Inactive mL, Route: 2014 [facility] IV, Drug form: INJ, ONCE, Dosing Weight 83.2, kg, Start date: 05/13/15 12:00:00, Stop date: 05/13/15 12:00:00Not es: (Same as: Lasix) Morphine 2 mg, 1 mL, No Longer Route: IVP, Active 2014 [facility] Drug form: INJ, Q4H, Dosing Weight 83.2, kg, PRN Pain Score 7-10, Start date: 05/13/15 10:19:00, Duration: 30 day, Stop date: 06/12/15 10:18:00Not es: (Same as:MORPhine Sulfate) Sodium Chloride 250 mL, 250 Inactive 0.154 MEQ/ML ml/hr, 2014 [facility] Injectable Infuse Solution Over: 1 hr, Route: IV, 250, Drug form: INJ, ONCE, Dosing Weight 83.2 kg, Start date: 05/13/15 9:58:00, Duration: 1 doses or times, Stop date: 05/13/15 9:58:00 Flomax 0.4 mg, 1 No Longer cap, Route: Active 2014 [facility] PO, Drug form: CAP, Daily, Dosing [...] Crestor 10 mg, Inactive Route: PO, 2014 [facility] Bedtime, Dosing Weight 84.659, kg, Start date: 05/12/15 21:00:00, Duration: 30 day, Stop date: 06/10/15 21:00:00 Insulin, 6 unit, No Longer Aspart, Human 0.06 mL, Active 2014 [facility] Route: SUB-Q, Drug form: SOLN, Sliding [...] mg, No Longer Route: IM, Active 2014 [facility] Drug form: PDR/INJ, PRN, Dosing Weight 83.2, kg, PRN Blood Glucose Results, Start date: 05/12/15 20:52:00, Duration: 30 day, Stop date: 06/11/15 20:51:00 Dextrose 50% 25 gm, 50 No Longer Syringe mL, Route: Active 2014 [facility] IVP, Drug Form: INJ, Dosing Weight 83.2, kg, PRN, PRN Blood Glucose Results, Start date: 05/12/15 20:52:00, Duration: 30 day, Stop date: 06/11/15 20:51:00 Trazodone 50 mg, 1 No Longer tab, Route: Active 2014 [facility] PO, Drug form: TAB, Bedtime, Dosing Weight 83.2, kg, PRN Sleep, Start date: 05/12/15 20:43:00, Duration: 30 day, Stop date: 06/11/15 20:42:00, ..Notes: (Same As: Desyrel) Nitroglycerin 0.4 mg, 1 No Longer tab, Route: Active 2014 [facility] , Drug form: TAB, Q5Min, Dosing Weight 83.2, kg, PRN Chest Pain, Start date: 05/12/15 20:37:00, Duration: 3 doses or times, Stop date: Limited # of timesNotes: (Same as:Nitroqui ck, Nitrostat) "Do Not Crush" Sublingual tablet Nitroglycerin 0.4 mg, On Hold Transdermal 2014 , PRN, 0 Refill(s) Rosuvastatin 20 mg=1 On Hold calcium 20 MG tab, PO, 2014 [facility] Oral Tablet Bedtime, # [Crestor] 30 tab, 0 Refill(s) Levothyroxine 200 On Hold Sodium 0.2 MG microgram=1 2014 [facility] Oral Tablet tab, PO, [Synthroid] Daily, [...] mg, Inactive Oral Tablet Route: PO, 2014 [facility] Drug form: TAB, Daily, Dosing Weight 84.659, [...] mg, Inactive Chewable Tablet Route: PO, 2014 [facility] Drug form: CHEWTAB, ONCE, Dosing Weight 81.364, kg, Priority: STAT, Start date: 05/12/15 16:22:00, Stop date: 05/12/15 16:22:00 Aspirin 325 mg, Inactive Route: 2014 [facility] CHEW, Drug form: CHEWTAB, ONCE, Dosing Weight 81.364, kg, Priority: STAT, Start date: 05/12/15 16:20:00, Stop date: 05/12/15 16:20:00 Aspirin 324 mg, 4 Inactive tab, Route: 2014 [facility] PO, Drug form: CHEWTAB, ONCE, Dosing Weight 81.364, kg, Priority: STAT, Start date: 05/12/15 14:36:00, Stop date: 05/12/15 14:36:00Not es: Take with food. Saline Flush 10 mL, No Longer 0.9% Route: IVP, Active 2014 [facility] Drug Form: INJ, Dosing Weight 81.364, kg, PRN, PRN Line Flush, Start date: 05/12/15 14:36:00, Duration: 30 day, Stop date: 06/11/15 14:35:00Not es: (Same as: BD Posiflush) furosemide 1 tab(s) orally Active 40 mg orally ATASHBAND 06/26/ Cardiovasc once a day 2014 [facility] nitroglycerin 1 tab(s) sublingua Active 0.4 mg ATASHBAND 11/26/ [facility] Crestor 1 tab(s) orally Active 10 mg orally ATASHBAND 01/27/ [facility]ovasc [facility] a [facility] Ranexa 1,000 mg, 2 PO No Longer [place] tab, Route: Active 2011 [facility] PO, Drug form: TAB, Q12H, Start date: 06/28/11 21:00:00, Duration: 30 day, Stop date: 07/28/11 9:00:00 Lipitor 10 mg, 1 PO No Longer [place] tab, Route: Active 2011 [facility] PO, Drug form: TAB, Bedtime, Start date: 06/28/11 21:00:00, Duration: 30 day, Stop date: 07/27/11 21:00:00 lisinopril 10 mg, 1 PO No Longer [facility] tab, Route: Active 2011 [facility] PO, Drug form: TAB, Daily, Start date: 06/28/11 17:00:00, Duration: 30 day, Stop date: 07/28/11 9:00:00 glimepiride 2 mg, 1 PO No Longer [facility] tab, Route: Active 2011 [facility] PO, Drug form: TAB, BID, Start date: 06/28/11 17:00:00, Duration: 30 day, Stop date: 07/28/11 9:00:00 Lasix 20 mg, 1 PO No Longer [facility] tab, Route: Active 2011 [facility] PO, Drug form: TAB, BID, Start date: 06/28/11 17:00:00, Duration: 30 day, Stop date: 07/28/11 9:00:00 spironolactone 25 mg, 1 PO No Longer [facility] tab, Route: Active 2011 [facility] PO, Drug form: TAB, Daily, Start date: 06/28/11 17:00:00, Duration: 30 day, Stop date: 07/28/11 9:00:00 Flomax 0.4 mg, 1 PO No Longer [facility] cap, Route: Active 2011 [facility] PO, Drug form: CAP, Daily, Start date: 06/28/11 17:00:00, Duration: 30 day, Stop date: 07/28/11 9:00:00 aspirin 81 mg 81 mg, 1 PO No Longer [facility] tablet, enteric tab, Route: Active 2011 [facility] coated PO, Drug form: ECTAB, Daily, Start date: 06/28/11 17:00:00, Duration: 30 day, Stop date: 07/28/11 9:00:00 acetaminophen-t 1 tab, PO No Longer [facility] ramadol 325 Route: PO, Active 2011 [facility] mg-37.5 mg oral Drug Form: tablet TAB, Daily, Start date: 06/28/11 17:00:00, Duration: 30 day, Stop date: 07/28/11 9:00:00 cefazolin 2 gm, IVPB No Longer [facility] Route: Active 2011 [facility] IVPB, Q8H, Start date: 06/28/11 16:00:00, Duration: 2 doses or times, Stop date: 06/29/11 0:00:00 Sodium Chloride 10 mL, IVP No Longer [facility] 0.9% IV Route: IVP, Active 2011 [facility] Start date: 06/28/11 16:00:00, Duration: 30 day, Stop date: 07/28/11 8:00:00 Coreg 25 mg, 1 PO No Longer [facility] tab, Route: Active 2011 [facility] PO, Drug form: TAB, Q12H, Start date: 06/28/11 15:00:00, Duration: 30 day, Stop date: 07/28/11 9:00:00 nitroglycerin 0.4 mg, 1 SL No Longer [facility] 0.4 mg tab, Route: Active 2011 [facility] sublingual SL, Drug tablet form: TAB, PRN, PRN Chest Pain, Start date: 06/28/11 13:33:00, Duration: 30 day, Stop date: 07/28/11 13:32:00 acetaminophen 500 mg, 1 PO No Longer [facility] tab, Route: Active 2011 [facility] PO, Drug form: TAB, Q4H, PRN Pain, Start date: 06/28/11 11:28:00, Duration: 30 day, Stop date: 07/28/11 11:27:00 acetaminophen-h 2 tab, PO No Longer [facility] ydrocodone 325 Route: PO, Active 2011 [facility] mg-5 mg oral Drug Form: tablet TAB, Q4H, PRN Pain, Start date: 06/28/11 11:28:00, Duration: 30 day, Stop date: 07/28/11 11:27:00 morphine 2 mg, 1 mL, IV No Longer [facility] Sulfate Route: IV, Active 2011 [facility] Drug form: INJ, Q2H, PRN Severe Pain, Start date: 06/28/11 11:28:00, Duration: 30 day, Stop date: 07/28/11 11:27:00 Xanax 0.25 mg, 1 PO No Longer [facility] tab, Route: Active 2011 [facility] PO, Drug form: TAB, Q8H, PRN Anxiety, Start date: 06/28/11 11:28:00, Duration: 30 day, Stop date: 07/28/11 11:27:00 Zofran 4 mg, 2 mL, IVP No Longer [facility] Route: IVP, Active 2011 [facility] Drug form: INJ, Q8H, PRN Nausea & Vomiting, Start date: 06/28/11 11:28:00, Duration: 30 day, Stop date: 07/28/11 11:27:00 Restoril 15 mg, 1 PO No Longer [facility] cap, Route: Active 2011 [facility] PO, Drug form: CAP, Bedtime, PRN Insomnia, Start date: 06/28/11 11:28:00, Duration: 30 day, Stop date: 07/28/11 11:27:00 Sodium Chloride 10 mL, IVP No Longer [facility] 0.9% IV Route: IVP, Active 2011 [facility] PRN, Line Flush, Start date: 06/28/11 11:26:00, Duration: 30 day, Stop date: 07/28/11 11:25:00 multivitamin 1 tab, PO No Longer [facility] Route: PO, Active 2011 [facility] Drug Form: TAB, [id number], Start date: 06/28/11 6:00:00, Duration: 4 doses or times, Stop date: 06/29/11 18:00:00 cefazolin 1 gm, IVPB No Longer [facility] Route: Active 2011 [facility] IVPB, PRE OP, Start date: 06/28/11 5:00:00, Duration: 12 hr, Stop date: 06/28/11 16:59:00 Sodium Chloride 1,000 mL, IV No Longer [facility] 0.45% IV 1,000 Rate: 75 Active 2011 [facility] mL ml/hr, Infuse over: 13.3 hr, Route: IV, Total Volume: 1,000, Start date: 06/28/11 5:00:00, Duration: 24 hr, Stop date: 06/29/11 4:59:00 lidocaine-prilo 1 appl, TOP No Longer [facility] freddie topical Route: TOP, Active 2011 [facility] ONCALL, Drug form: CRM, Start date: 06/28/11 5:00:00, Duration: 1 doses or times Valium 5 mg, 1 PO No Longer [place] tab, Route: Active 2011 [facility] PO, Drug form: TAB, ONCALL, Start date: 06/28/11 5:00:00, Duration: 1 doses or times Benadryl 50 mg, 2 PO No Longer [place] tab, Route: Active 2011 [facility] PO, Drug form: TAB, ONCALL, Start [...] Right completed Irineo The ssis, 8 deltoid [place] acel/tetanus adult pneumococcal Right completed Jose 13-valent 6 deltoid [facility] vaccine [place] Results Order Name Results Value Reference Date Interpretation Comments Source Range URINE AND UA <=1.0 0.1 - 1.0 08/06 [facility] STOOL Urobilinogen mg/dL /2017 [place] URINE AND UA RBC 1 /HPF 0 - 2 08/06 The STOOL /2017 [place] URINE AND UA Mucus Few /LPF None Seen 08/06 The [facility]OL /LPF /2017 [place] URINE AND UA Color Yellow Yellow 08/06 The STOOL /2017 [place] *NA* (08/06/17 2:20 AM) URINE AND UA Turbidity Clear Clear 08/06 The STOOL /2017 [place] (08/06/17 2:20 AM) URINE AND UA Spec Grav 1.006 <=1.030 08/06 The STOOL [place] URINE AND UA Sq Epi Occasional Few /LPF 08/06 The STOOL /LPF /2017 [place] URINE AND UA WBC 1 /HPF 0 - 5 08/06 The STOOL [place] URINE AND UA Nitrite Negative Negative 08/06 The STOOL [place] (08/06/17 2:20 AM) URINE AND UA Leuk Est Negative Negative 08/06 The STOOL [place] (08/06/17 2:20 AM) URINE AND UA pH 5.0 5.0 - 8.0 08/06 The STOOL [place] URINE AND UA Ketones Negative Negative 08/06 The [facility] mg/dL mg/dL [place] URINE AND UA Bili Negative Negative 08/06 The [place] *NA* (08/06/17 2:20 AM) URINE AND UA Protein Negative Negative 08/06 The ST[facility]OL mg/dL mg/dL [place] URINE AND UA Glucose Negative Negative 08/06 The ST[facility]OL mg/dL mg/dL [place] URINE AND UA Blood Negative Negative 08/06 The STOOL [place] (08/06/17 2:20 AM) CHEM PANEL A/G Ratio 1.1 0.7 - 1.6 08/06 The [place] CHEM PANEL AGAP 13.0 meq/L 10.0 - 08/06 The 20.0 [place] CHEM PANEL Globulin 3.2 g/dL 2.7 - 4.2 08/06 The [place] CHEM PANEL B/C Ratio 21 6 - 25 08/06 The [place] CHEM PANEL CO2 25 meq/L 24 - 32 08/06 The [place] CHEM PANEL Chloride Lvl 102 meq/L 95 - 109 08/06 The [place] CHEM PANEL Potassium 4.0 meq/L 3.5 - 5.1 08/06 The Lvl [place] CHEM PANEL Sodium Lvl 136 meq/L 135 - 145 08/06 The [place] CHEM PANEL BUN 38 mg/dL 7 - 22 08/06 The [place] CHEM PANEL Glucose Lvl 246 mg/dL 70 - 99 08/06 The [place] CHEM PANEL Creatinine 1.81 mg/dL 0.50 - 08/06 The Lvl 1.40 /2017 [place] CHEM PANEL Alk Phos 134 unit/L 39 - 136 08/06 [place] CHEM PANEL Bili Total 0.8 mg/dL 0.2 - 1.3 08/06 The [place] CHEM PANEL ALT 29 unit/L 0 - 65 08/06 The [place] CHEM PANEL Albumin Lvl 3.5 g/dL 3.5 - 5.0 08/06 [place] CHEM PANEL AST 28 unit/L 0 - 37 08/06 The [place] CHEM PANEL Total 6.7 g/dL 6.4 - 8.4 08/06 The Protein [place] CHEM PANEL Calcium Lvl 8.5 mg/dL 8.5 - 10.5 08/06 The [place] CHEM PANEL eGFR 34 08/06 Result Comment: [...] is not recommended in the following populations: [address] Individuals with unstable creatinine concentrations, including [...] 23.8 pg 27.0 - 08/06 The 31. [place] HEMATOLOGY RDW 18.4 % 11.5 - 08/06 The 14. [place] HEMATOLOGY MPV 9.3 fL 7.4 - 10.4 08/06 [place] HEMATOLOGY Platelet 135 K/CMM 133 - 450 08/06 [place] HEMATOLOGY MCHC 31.9 g/dL 32.0 - 08/06 The 36.0 [place] HEMATOLOGY Hct 30.4 % 42.0 - 08/06 The 54.0 [place] HEMATOLOGY MCV 74.5 fL 80.0 - 08/06 MH The 94.0 [place] HEMATOLOGY RBC 4.08 M/CMM 4.70 - 08/06 The 6.10 [place] HEMATOLOGY Hgb 9.7 g/dL 14.0 - 08/06 MH The 18.0 [place] HEMATOLOGY WBC 4.8 K/CMM 3.7 - 10.4 08/06 The [place] HEMATOLOGY PTT 30.0 s 22.9 - 08/06 The 35.8 [place] HEMATOLOGY PT 14.6 s 12.0 - 08/06 The 14.7 [place] HEMATOLOGY INR 1.14 0.85 - 08/06 The 1.17 [place] HEMATOLOGY Monocytes # 0.4 K/CMM 0.0 - 0.8 08/06 The [place] HEMATOLOGY Eosinophils 0.2 K/CMM 0.0 - 0.5 08/06 The # [place] HEMATOLOGY Microcyte 1+ None Seen 08/06 [place] *ABN* (08/06/17 1:09 AM) HEMATOLOGY Basophils 0.5 % 0.0 - 1.0 08/06 The [place] HEMATOLOGY Segs-Bands # 3.4 K/CMM 1.5 - 8.1 08/06 The [place] HEMATOLOGY Lymphocytes 0.8 K/CMM 1.0 - 5.5 08/06 The # [place] HEMATOLOGY Lymphocytes 15.8 % 20.0 - 08/06 The 40.0 [place] HEMATOLOGY Monocytes 8.5 % 2.0 - 12.0 08/06 The [place] HEMATOLOGY Segs 70.6 % 45.0 - 08/06 The 75.0 [place] HEMATOLOGY Eosinophils 4.6 % 0.0 - 4.0 08/06 The [place] Brain wo Brain wo CT HEAD WITHOUT CONTRAST 08/06 - The contrast contrast CT [facility] CT Clinical Indication: - head trauma, plavix. [...] 1358 pg/mL <=100 05/30 ENZYMES pg/mL /2016 [facility] CARDIAC Troponin-I 0.02 ng/mL 0.00 - 05/30 [facility] 0.40 /2016 [facility] ELECTROLYT AGAP 10.8 meq/L 10.0 - 05/30 ES 20.0 [facility] ELECTROLYT A/G Ratio 1.4 0.7 - 1.6 05/30 ES [facility] ELECTROLYT B/C Ratio 15 6 - 25 05/30 ES /2016 [facility] ELECTROLYT Globulin 2.7 g/dL 2.7 - 4.2 05/30 ES /2016 [facility] ELECTROLYT eGFR 29 05/30 Result Comment: The [...] is not recommended in the following populations: [facility] 3m2 Individuals with unstable creatinine concentrations, [...] BUN 31 mg/dL 7 - 22 05/30 [facility] HEMATOLOGY PT 14.7 s 12.0 - 05/30 14.7 [facility] HEMATOLOGY INR 1.15 0.85 - 05/30 1.17 [facility] HEMATOLOGY RDW 16.9 % 11.5 - 05/30 14. [facility] HEMATOLOGY WBC 3.6 K/CMM 3.7 - 10.4 05/30 [facility] HEMATOLOGY RBC 3.64 M/CMM 4.70 - 05/30 6.10 [facility] HEMATOLOGY MCH 26.1 pg 27.0 - 05/30 31.0 [facility] HEMATOLOGY MCV 81.6 fL 80.0 - 05/30 94.0 [facility] HEMATOLOGY Hct 29.7 % 42.0 - 05/30 54.0 [facility] HEMATOLOGY MCHC 31.9 g/dL 32.0 - 05/30 MH 36.0 /2017 [facility] HEMATOLOGY Hgb 9.5 g/dL 14.0 - 05/30 MH 18.0 /2017 [facility] HEMATOLOGY Platelet 98 K/CMM 133 - 450 05/30 [facility] HEMATOLOGY MPV 9.3 fL 7.4 - 10.4 05/30 [facility] HEMATOLOGY Eosinophils 0.1 K/CMM 0.0 - 0.5 05/30 MH # /2017 [facility] HEMATOLOGY Eosinophils 1.8 % 0.0 - 4.0 05/30 [facility] HEMATOLOGY Monocytes 9.8 % 2.0 - 12.0 05/30 [facility] HEMATOLOGY Monocytes # 0.4 K/CMM 0.0 - 0.8 05/30 [facility] HEMATOLOGY Segs-Bands # 2.3 K/CMM 1.5 - 8.1 05/30 [facility] HEMATOLOGY Basophils 0.4 % 0.0 - 1.0 05/30 [facility] HEMATOLOGY Lymphocytes 24.4 % 20.0 - 05/30 40.0 [facility] HEMATOLOGY Lymphocytes 0.9 K/CMM 1.0 - 5.5 05/30 # /2016 [facility] HEMATOLOGY Segs 63.6 % 45.0 - 05/30 MH 75.0 /2016 [facility] Chest Chest 1view Clinical Indication: - chf; 05/30 - 1[facility] DX DX /2016 - [facility] Comparison: December 28, 2015 Read by: [...] placement. 2. No focal infiltrates . SL: [id number] CHEM PANEL eGFR 41 11/03 Result Comment: [...] is not recommended in the following populations: [facility] 3m2 Individuals with unstable creatinine concentrations, [...] Lvl 8.5 mg/dL 8.5 - 10.5 11/03 [facility] CHEM PANEL AGAP 10.9 meq/L 10.0 - 11/03 20.0 [facility] CHEM PANEL Chloride Lvl 105 meq/L 95 - 109 11/03 [facility] CHEM PANEL CO2 27 meq/L 24 - 32 11/03 [facility] CHEM PANEL Sodium Lvl 139 meq/L 135 - 145 11/03 [facility] CHEM PANEL Potassium 3.9 meq/L 3.5 - 5.1 11/03 Lvl /2016 [facility] CHEM PANEL BUN 20 mg/dL 7 - 22 11/03 [facility] CHEM PANEL Glucose Lvl 165 mg/dL 70 - 99 11/03 [facility] CHEM PANEL Creatinine 1.54 mg/dL 0.50 - 11/03 Lvl 1.40 /2016 [facility] CARDIAC BNP 720 pg/mL <=100 11/03 [facility] pg/mL /2016 [facility] CHEM PANEL Phosphorus 4.1 mg/dL 2.5 - 4.5 11/03 [facility] CHEM PANEL Magnesium 1.9 mg/dL 1.8 - 2.4 11/03 Lvl /2016 [facility] LIPIDS VLDL 26 11/03 [facility] LIPIDS Trig 129 mg/dL <=149 11/03 mg/dL [facility] LIPIDS HDL 32 mg/dL >=61 mg/dL 11/03 [facility] LIPIDS Chol 97 mg/dL <=199 11/03 mg/dL [facility] LIPIDS LDL 39 mg/dL <=99 mg/dL 11/03 (Calculated) [facility] LIPIDS CHD Risk 3.03 4.00 - 11/03 7.30 /2017 [facility] CARDIAC Troponin-I 0.04 ng/mL 0.00 - 11/03 [facility] 0.40 [facility] CARDIAC Total CK 68 unit/L 11/03 MH ENZYMES /2016 [facility] CARDIAC Total CK 65 unit/L 11/03 [facility] /2016 [facility] CARDIAC Troponin-I 0.04 ng/mL 0.00 - 11/03 [facility] 0.40 [facility] CARDIAC BNP 626 pg/mL <=100 11/02 [facility] pg/mL /2016 [facility] CARDIAC Troponin-I 0.04 ng/mL 0.00 - 11/02 EN[facility]YM[facility] 0.40 [facility] CARDIAC Total CK 64 unit/L 11/02 MH ENZYMES /2016 [facility] CARDIAC Total CK 64 unit/L 11/02 ENZYMES [facility] CARDIAC Troponin-I 0.05 ng/mL 0. - 11/02 [facility] 0.40 [facility] CHEM PANEL Magnesium 1.9 mg/dL 1.8 - 2.4 11/02 Lvl [facility] CHEM PANEL B/C Ratio 13 6 - 25 11/02 [facility] CHEM PANEL AGAP 13.6 meq/L 10.0 - 11/02 20.0 [facility] CHEM PANEL Globulin 2.9 g/dL 2.7 - 4.2 11/02 [facility] CHEM PANEL A/G Ratio 1.2 0.7 - 1.6 11/02 [facility] CHEM PANEL eGFR 39 11/02 Result [...] is not recommended in the following populations: [facility] 3m2 Individuals with unstable creatinine concentrations, [...] MPV 9.8 fL 7.4 - 10.4 11/02 [facility] HEMATOLOGY RDW 13.8 % 11.5 - 11/02 MH 14.5 [facility] HEMATOLOGY WBC 3.6 K/CMM 3.7 - 10.4 11/02 [facility] HEMATOLOGY RBC 3.45 M/CMM 4.70 - 11/02 MH 6.10 [facility] HEMATOLOGY Hgb 10.5 g/dL 14.0 - 11/02 MH 18.0 [facility] HEMATOLOGY Hct 30.8 % 42.0 - 11/02 MH 54.0 [facility] HEMATOLOGY MCV 89.3 fL 80.0 - 11/02 MH 94.0 [facility] HEMATOLOGY MCHC 34.2 g/dL 32.0 - 11/02 MH 36.0 [facility] HEMATOLOGY MCH 30.6 pg 27.0 - 11/02 MH 31.0 [facility] Hgb A1C 7.4 % <=5.6 % 11/02 [facility] CHEM PANEL eGFR 52 12/29 Result [...] is not recommended in the following populations: [facility] 3m2 Individuals with unstable creatinine concentrations, [...] Lvl 149 mg/dL 70 - 99 12/29 [facility] CHEM PANEL Potassium 4.1 meq/L 3.5 - 5.1 12/29 Lvl [facility] CHEM PANEL Chloride Lvl 108 meq/L 95 - 109 12/29 [facility] CHEM PANEL CO2 30 meq/L 24 - 32 12/29 [facility] CHEM PANEL Calcium Lvl 8.6 mg/dL 8.5 - 10.5 12/29 [facility] CHEM PANEL BUN 19 mg/dL 7 - 22 12/29 /2015 [facility] CHEM PANEL Creatinine 1.28 mg/dL 0.50 - 12/29 Lvl 1.40 /2015 [facility] CHEM PANEL Sodium Lvl 145 meq/L 135 - 145 12/29 /2015 [facility] CHEM PANEL AGAP 11.1 meq/L 10.0 - 12/29 MH 20.0 /2015 [facility] CHEM PANEL Magnesium 2.1 mg/dL 1.8 - 2.4 12/29 Lvl /2015 [facility] HEMATOLOGY MCV 93.2 fL 80.0 - 12/29 MH 94.0 /2015 [facility] HEMATOLOGY Platelet 106 K/CMM 133 - 450 12/29 [facility] HEMATOLOGY MPV 9.3 fL 7.4 - 10.4 12/29 [facility] HEMATOLOGY MCH 31.2 pg 27.0 - 12/29 MH 31.0 /2015 [facility] HEMATOLOGY RDW 14.7 % 11.5 - 12/29 MH 14.5 /2015 [facility] HEMATOLOGY MCHC 33.5 g/dL 32.0 - 12/29 MH 36.0 /2015 [facility] HEMATOLOGY WBC 4.1 K/CMM 3.7 - 10.4 12/29 /2015 [facility] HEMATOLOGY RBC 3.63 M/CMM 4.70 - 12/29 MH 6.10 /2015 [facility] HEMATOLOGY Hct 33.8 % 42.0 - 12/29 MH 54.0 /2015 [facility] HEMATOLOGY Hgb 11.3 g/dL 14.0 - 12/29 MH 18.0 /2015 [facility] HEMATOLOGY Eosinophils 0.2 K/CMM 0.0 - 0.5 12/29 MH # /2015 [facility] HEMATOLOGY Segs-Bands # 2.4 K/CMM 1.5 [...] Monocytes 10.3 % 2.0 - 12.0 12/29 [facility] HEMATOLOGY Lymphocytes 26.5 % 20.0 - 12/29 MH 40.0 [facility] HEMATOLOGY POC 128 s 12/28 [facility] [employer] HEMATOLOGY PTT 75.4 s 22.9 - 12/28 35.8 [facility] CHEM PANEL Magnesium 2.0 mg/dL 1.8 - 2.4 12/28 Lvl [facility] CHEM PANEL Glucose Lvl 116 mg/dL 70 - 99 12/28 [facility] CHEM PANEL Potassium 3.8 meq/L 3.5 - 5.1 12/28 Lvl [facility] CHEM PANEL AGAP 13.8 meq/L 10.0 - 12/28 MH 20.0 [facility] CHEM PANEL CO2 27 meq/L 24 - 32 12/28 [facility] CHEM PANEL Sodium Lvl 143 meq/L 135 - 145 12/28 [facility] CHEM PANEL Chloride Lvl 106 meq/L 95 - 109 12/28 [facility] CHEM PANEL Creatinine 1.28 mg/dL 0.50 - 12/28 Lvl 1.40 [facility] CHEM PANEL Calcium Lvl 8.8 mg/dL 8.5 - 10.5 12/28 [facility] CHEM PANEL BUN 22 mg/dL 7 [...] is not recommended in the following populations: [address] Individuals with unstable creatinine concentrations, including [...] Platelet 105 K/CMM 133 - 450 12/28 [facility] HEMATOLOGY RDW 14.6 % 11.5 - 12/28 14. [facility] HEMATOLOGY MCH 30.7 pg 27.0 - 12/28 31.0 /2015 [facility] HEMATOLOGY MCHC 33.2 g/dL 32.0 - 12/28 MH 36.0 /2015 [facility] HEMATOLOGY MPV 9.5 fL 7.4 - 10.4 12/28 /2015 [facility] HEMATOLOGY Hct 33.6 % 42.0 - 12/28 54.0 /2015 [facility] HEMATOLOGY Hgb 11.2 g/dL 14.0 - 12/28 MH 18.0 /2015 [facility] HEMATOLOGY RBC 3.63 M/CMM 4.70 - 12/28 MH 6.10 [facility] HEMATOLOGY MCV 92.5 fL 80.0 - 12/28 MH 94.0 /2015 [facility] HEMATOLOGY WBC 4.3 K/CMM 3.7 - 10.4 12/28 [facility] HEMATOLOGY PTT 47.5 s 22.9 - 12/28 35. [facility] LIPIDS VLDL 45 12/28 [facility] LIPIDS LDL 69 mg/dL <=99 mg/dL 12/28 (Calculated) [facility] LIPIDS HDL 31 mg/dL >=61 mg/dL 12/28 [facility] LIPIDS CHD Risk 4.68 4.00 - 12/28 7.30 [facility] LIPIDS Trig 225 mg/dL <=149 12/28 mg/dL /2015 [facility] LIPIDS Chol 145 mg/dL <=199 12/28 mg/dL /2015 [facility] CARDIAC Troponin-I 0.47 ng/mL 0.00 - 12/28 ENZYMES 0.40 /2015 [facility] CARDIAC Total CK 157 unit/L 12 - 191 12/28 ENZYMES /2015 [facility] CARDIAC CK MB Index 3.8 0.0 - 2.5 12/28 ENZYMES /2016 [facility] CARDIAC CK MB 5.9 ng/mL 0.5 - 3.6 12/28 ENZYMES /2016 [facility] HEMATOLOGY PTT 63.8 s 22.9 - 12/28 35.8 /2015 [facility] CARDIAC Troponin-I 0.71 ng/mL 0.00 - 12/28 Result ENZYMES 0.40 Comment: [facility] Critical Result(s) called to Ghazal MichaelRN at 12/28/2015 20:26 by NIKOLE. Read back OK. CARDIAC Total CK 169 unit/L 12 - 191 12/28 ENZYMES /2015 [facility] CARDIAC CK MB Index 3.8 0.0 - 2.5 12/28 ENZYMES /2016 [facility] CARDIAC CK MB 6.5 ng/mL 0.5 - 3.6 12/28 ENZYMES /2015 [facility] CARDIAC CK MB Index 4.9 0.0 - 2.5 12/27 ENZYMES /2015 [facility] CARDIAC CK MB 8.8 ng/mL 0.5 - 3.6 12/27 ENZYMES [facility] CARDIAC Troponin-I 0.69 ng/mL 0.00 - 12/27 Result ENZYMES 0.40 /2016 Comment: [facility] Critical Result(s) called to Gris Caba RN at 12/28/2015 16:14 by LS. Read back OK. CARDIAC Total CK 180 unit/L 12 - 191 12/27 ENZYMES [facility] CARDIAC BNP 402 pg/mL <=100 12/27 ENZYMES pg/mL /2015 [facility] CHEM PANEL Lipase Lvl 73 unit/L 73 - 393 12/27 [facility] CHEM PANEL A/G Ratio 1.1 0.7 - 1.6 12/27 [facility] CHEM PANEL Globulin 3.3 g/dL 2.0 - 4.0 12/27 [facility] CHEM PANEL B/C Ratio 14 6 - 25 12/27 [facility] CHEM PANEL AGAP 9.6 meq/L 10.0 - 12/27 MH 20.0 [facility] CHEM PANEL eGFR 43 12/27 Result Comment: [...] is not recommended in the following populations: [facility] 3m2 Individuals with unstable creatinine concentrations, [...] Phos 83 unit/L 39 - 136 12/27 [facility] CHEM PANEL AST 30 unit/L 0 - 37 12/27 [facility] CHEM PANEL ALT 29 unit/L 0 - [...] INR 1.04 0.85 - 12/27 MH 1.17 [facility] HEMATOLOGY PT 13.9 s 12.0 - 12/27 MH 14.7 [facility] HEMATOLOGY Hct 36.1 % 42.0 - 12/27 MH 54.0 /2015 [facility] HEMATOLOGY Hgb 12.0 g/dL 14.0 - 12/27 18.0 /2015 [facility] HEMATOLOGY RBC 3.89 M/CMM 4.70 - 12/27 6.10 /2015 [facility] HEMATOLOGY MPV 9.4 fL 7.4 - 10.4 12/27 [facility] Platelet 115 K/CMM 133 - 450 12/27 [facility] RDW 14.7 % 11.5 - 12/27 14.5 [facility] MCHC 33.1 g/dL 32.0 - 12/27 36.0 /2015 [facility] MCV 92.8 fL 80.0 - 12/27 94.0 /2015 [facility] MCH 30.7 pg 27.0 - 12/27 31.0 /2015 [facility] WBC 4.2 K/CMM 3.7 - 10.4 12/27 [facility] Chest Chest 1view Clinical Indication: Left-sided chest pain 12/27 - 1view DX - [facility] Comparison: 05/12/2015 Read by: Edna Schrader [...] IMPRESSION: No acute infiltrates or effusions. SL: [id number] CHEM PANEL Phosphorus 3.7 mg/dL 2.5 - 4.5 05/22 [facility]2014 [facility] CHEM PANEL Magnesium 2.1 mg/dL 1.8 - 2.4 05/22 [facility]2014 [facility] CHEM PANEL eGFR 49 05/22 Result Comment: The eGFR is calculated using the CKD-EPI formula. In most young, healthy individuals the eGFR will be >90 mL/ min/1.73m2. The eGFR declines with age. An eGFR of 60-89 may be normal in [facility] mL/min/1. some populations, particularly the elderly, for whom the CKD-EPI formula has not been extensively validated. Use of the eGFR is not recommended in the following populations: [place] [address] [facility] Individuals with unstable creatinine concentrations, including [...] Lvl 8.2 mg/dL 8.5 - 10.5 05/22 [facility] CHEM PANEL Creatinine 1.35 mg/dL 0.50 - 05/22 [facility] Lvl 1.40 /2014 [facility] CHEM PANEL Chloride Lvl 108 meq/L 95 - 109 05/22 [facility] CHEM PANEL CO2 26 meq/L 24 - 32 05/22 [facility] CHEM PANEL Sodium Lvl 141 meq/L 135 - 145 05/22 [facility] CHEM PANEL Potassium 4.5 meq/L 3.5 - 5.1 05/22 [facility] Lvl /2014 [facility] CHEM PANEL Glucose Lvl 110 mg/dL 70 - 99 05/22 [facility] CHEM PANEL BUN 22 mg/dL 7 - 22 05/22 [facility] CHEM PANEL AGAP 11.5 meq/L 10.0 - 05/22 20.0 [facility] HEMATOLOGY RDW 13.1 % 11.5 - 05/22 14.5 [facility] HEMATOLOGY MCHC 32.5 g/dL 32.0 - 05/22 [place] 36.0 [facility] HEMATOLOGY MCH 32.3 pg 27.0 - 05/22 31.0 [facility] HEMATOLOGY MCV 99.6 fL 80.0 - 05/22 94.0 [facility] HEMATOLOGY Hct 31.2 % 42.0 - 05/22 [place] 54.0 [facility] HEMATOLOGY MPV 9.4 fL 7.4 - 10.4 05/22 [facility] HEMATOLOGY Platelet 127 K/CMM 133 - 450 05/22 [facility] HEMATOLOGY Hgb 10.1 g/dL 14.0 - 05/22 [place] [facility] HEMATOLOGY RBC 3.14 M/CMM 4.70 - 05/22 [place] 6.10 /2014 [facility] HEMATOLOGY WBC 4.4 K/CMM 3.7 - 10.4 05/22 /2014 [facility] HEMATOLOGY Eosinophils 0.2 K/CMM 0.0 - 0.5 05/22 [place] # /2015 [facility] HEMATOLOGY Monocytes # 0.5 K/CMM 0.0 - 0.8 05/22 /2014 [facility] HEMATOLOGY Lymphocytes 19.4 % 20.0 - 05/22 [place] 40.0 [facility] HEMATOLOGY Segs 64.5 % 45.0 - 05/22 [place] 75.0 /2014 [facility] HEMATOLOGY Lymphocytes 0.9 K/CMM 1.0 - 5.5 05/22 [facility] # /2014 [facility] HEMATOLOGY Segs-Bands # 2.8 K/CMM 1.5 - 8.1 05/22 /2014 [facility] HEMATOLOGY Basophils 0.5 % 0.0 - 1.0 05/22 /2014 [facility] HEMATOLOGY Eosinophils 3.9 % 0.0 - 4.0 05/22 [facility] HEMATOLOGY Monocytes 11.7 % 2.0 - 12.0 05/22 [facility] /2014 [facility] HVI VAS HVI VAS INDICATION: groin hematoma 05/22 - [facility] Arterial/b Arterial/by /2014 - [facility] ypass ass Lower This report was dictated by a Sales Support Associate/ Fellow. I have personally reviewed the images [...] fistula. CARDIAC Troponin-T 0.014 0.000 - 12 [facility] ENZYMES ng/mL 0.100 /2014 [facility] CARDIAC Troponin-I 0.04 ng/mL 0.00 - 12 [facility] ENZYMES 0.40 /2014 [facility] CARDIAC Total CK 34 unit/L 12 - 191 05/21 [facility] ENZYMES /2014 [facility] CHEM PANEL eGFR 63 05/21 Result Comment: The eGFR is calculated using the CKD-EPI formula. In most young, healthy individuals the eGFR will be >90 mL/ min/1.73m2. The eGFR declines with age. An eGFR of 60-89 may be normal in [facility] mL/min/1.7 some populations, particularly the elderly, for whom the CKD-EPI formula has not been extensively validated. Use of the eGFR is not recommended in the following populations: [address] Individuals with unstable creatinine concentrations, including [...] PANEL AGAP 15.1 meq/L 10.0 - 05/21 [facility] 20.0 [facility] CHEM PANEL Calcium Lvl 8.5 mg/dL 8.5 - 10.5 05/[address] CHEM PANEL CO2 20 meq/L 24 - 32 05/[address] CHEM PANEL Creatinine 1.09 mg/dL 0.50 - / [facility] Lvl 1.40 [facility] CHEM PANEL BUN 17 mg/dL 7 - 22 05/[address] CHEM PANEL Potassium 4.1 meq/L 3.5 - 5.1 05/21 [facility] CHEM PANEL Sodium Lvl 140 meq/L 135 - 145 / [address] CHEM PANEL Glucose Lvl 177 mg/dL 70 - 99 05/[address] CHEM PANEL Chloride Lvl 109 meq/L 95 - 109 05/[address] CHEM PANEL Phosphorus 4.2 mg/dL 2.5 - 4.5 05/[address] CHEM PANEL Magnesium 2.2 mg/dL 1.8 - 2.4 12/12 [facility] Lvl /2014 [facility] HEMATOLOGY Macrocyte 1+ None Seen 05/[address] [facility] *ABN* Center (05/21/15 12:13 AM) HEMATOLOGY Lymphocytes 0.6 K/CMM 1.0 - 5.5 12 [place] # /2014 [facility] HEMATOLOGY Basophils 0.4 % 0.0 - 1.0 12 /2014 [facility] HEMATOLOGY Monocytes # 0.4 K/CMM 0.0 - 0.8 12 /2014 [facility] HEMATOLOGY Lymphocytes 15.6 % 20.0 - 12 [place] 40.0 /2014 [facility] HEMATOLOGY Segs-Bands # 3.0 K/CMM 1.5 - 8.1 05/21 [facility] HEMATOLOGY Monocytes 8.8 % 2.0 - 12.0 05/21 /2014 [facility] HEMATOLOGY Eosinophils 0.7 % 0.0 - 4.0 05/21 /2014 [facility] HEMATOLOGY Segs 74.5 % 45.0 - 05/21 [place] 75.0 [facility] HEMATOLOGY INR 1.11 0.85 - 05/21 [place] 1.17 /2014 [facility] HEMATOLOGY PTT 30.1 s 22.9 - 12 [place] 35.8 /2014 [facility] HEMATOLOGY PT 14.6 s 12.0 - 1212 [place] 14.7 [facility] HEMATOLOGY Platelet 117 K/CMM 133 - 450 12 /2014 [facility] HEMATOLOGY MPV 9.6 fL 7.4 - 10.4 05/21 [facility] HEMATOLOGY MCH 33.1 pg 27.0 - 12 [place] 31.0 [facility] HEMATOLOGY MCHC 32.9 g/dL 32.0 - 12 [place] 36.0 /2014 [facility] HEMATOLOGY RDW 13.2 % 11.5 - 1212 [place] 14.5 [facility] HEMATOLOGY Hgb 10.2 g/dL 14.0 - 1212 [place] 18.0 [facility] HEMATOLOGY Hct 30.9 % 42.0 - 12/12 [place] 54.0 /2014 [facility] HEMATOLOGY MCV 100.6 fL 80.0 - 12 [place] 94.0 /2014 [facility] HEMATOLOGY RBC 3.07 M/CMM 4.70 - 1212 MH [place] 6.10 /2015 [facility] HEMATOLOGY WBC 4.0 K/CMM 3.7 - 10.4 05/21 [facility] PARATHYROI Ca Norm WB 1.13 1.05 - 05/21 [facility] D PROFILE mMol/L 1. [facility] PARATHYROI Ca Ion WB 1.09 1.05 - 05/21 [facility] D PROFILE mMol/L 1. [facility] CHEM PANEL Lactic Acid 0.7 mMol/L 0.5 - 2.2 05/20 [facility] CHEM PANEL Magnesium 1.4 mg/dL 1.8 - 2.4 05/20 [facility] CHEM PANEL Phosphorus 3.5 mg/dL 2.5 - 4.5 05/20 [facility] CHEM PANEL eGFR 78 05/20 Result Comment: The eGFR is calculated using the CKD-EPI formula. In most young, healthy individuals the eGFR will be >90 mL/ min/1.73m2. The eGFR declines with age. An eGFR of 60-89 may be normal in [facility] mL/min/1. some populations, particularly the elderly, for whom the CKD-EPI formula has not been extensively validated. Use of the eGFR is not recommended in the following populations: [address] Individuals with unstable creatinine concentrations, including [...] mg/dL 8.5 - 10.5 05/20 Result Comment: [facility] Result(s) called to HANK TANNER at 05/20/2015 14:22_ by CN_. Read back OK. CHEM PANEL AGAP 14.7 meq/L 10.0 - 05/20 [facility] 20. [facility] CHEM PANEL Glucose Lvl 108 mg/dL 70 - 99 05/20 [facility] CHEM PANEL Sodium Lvl 145 meq/L 135 - 145 05/20 [facility] CHEM PANEL Potassium 2.7 meq/L 3.5 - 5.1 05/20 Result [facility] /2014 Comment: [facility] Result(s) called to HANK TANNER at 05/20/2015 14:22_ by CN_. Read back OK. CHEM PANEL BUN 12 mg/dL 7 - 22 12 /2014 [facility] CHEM PANEL Creatinine 0.92 mg/dL 0.50 - 05/20 [facility] Lvl 1.40 /2014 [facility] CHEM PANEL Chloride Lvl 113 meq/L 95 - 109 12/ /2014 [facility] CHEM PANEL CO2 20 meq/L 24 - 32 12/ /2014 [facility] HEMATOLOGY PTT >200 22.9 - 12 Result [facility] seconds 35.8 /2015 Comment: [facility] Result(s) called to Benigno Jennings at 05/20/2015 14:[address] Read back OK. HEMATOLOGY PT 16.3 s 12.0 - 05/20 [place] 14.7 /2014 [facility] HEMATOLOGY INR 1.28 0.85 - 05/20 [place] 1.17 [facility] HEMATOLOGY Platelet 108 K/CMM 133 - 450 12 [facility] HEMATOLOGY MPV 9.8 fL 7.4 - 10.4 12 [facility] HEMATOLOGY MCV 100.5 fL 80.0 - 05/20 [place] 94.0 [facility] HEMATOLOGY RDW 13.3 % 11.5 - 12 [place] 14.5 [facility] HEMATOLOGY MCHC 32.9 g/dL 32.0 - 12 [place] 36.0 /2014 [facility] HEMATOLOGY MCH 33.1 pg 27.0 - 12 31.0 [facility] HEMATOLOGY RBC 2.95 M/CMM 4.70 - 12 [place] 6.10 /2014 [facility] HEMATOLOGY Hct 29.7 % 42.0 - 12/11 54.0 [facility] HEMATOLOGY Hgb 9.8 g/dL 14.0 - 12 [place] 18.0 [facility] HEMATOLOGY WBC 3.6 K/CMM 3.7 - 10.4 12 [facility] HEMATOLOGY Monocytes 11.3 % 2.0 - 12.0 12/ /2014 [facility] HEMATOLOGY Segs 60.4 % 45.0 - 1211 [place] 75.0 /2014 [facility] HEMATOLOGY Lymphocytes 23.3 % 20.0 - 05/20 40.0 /2014 [facility] HEMATOLOGY Segs-Bands # 2.2 K/CMM 1.5 - 8.1 05/20 [facility] HEMATOLOGY Lymphocytes 0.9 K/CMM 1.0 - 5.5 05/20 [facility] # /2014 [facility] HEMATOLOGY Basophils 0.3 % 0.0 - 1.0 05/20 /2014 [facility] HEMATOLOGY Eosinophils 4.7 % 0.0 - 4.0 05/20 [facility] /2014 [facility] HEMATOLOGY Monocytes # 0.4 K/CMM 0.0 - 0.8 05/20 /2014 [facility] HEMATOLOGY Macrocyte 1+ None Seen 05/20 [facility] (05/20/15 1:48 PM) HEMATOLOGY Eosinophils 0.2 K/CMM 0.0 - 0.5 05/20 [facility] # /2014 [facility] PARATHYROI Ca Ion WB 1.12 1.05 - 05/20 [facility] D PROFILE mMol/L 1. [facility] PARATHYROI Ca Norm WB 1.09 1.05 - 05/20 [facility] D PROFILE mMol/L 1. [facility] CHEM PANEL Globulin 3.0 g/dL 2.0 - 4.0 05/20 [facility] [address] [place] [address] CHEM PANEL B/C Ratio 15 6 - 25 05/20 [facility] [address] [place] [address] CHEM PANEL Bili Total 0.8 mg/dL 0.2 - 1.3 05/20 [facility] /[address] [place] [address] CHEM PANEL A/G Ratio 1.1 0.7 - 1.6 05/20 [facility] CHEM PANEL Alk Phos 73 unit/L 39 - 136 05/20 [facility] [address] [place] [address] CHEM PANEL Albumin Lvl 3.2 g/dL 3.5 - 5.0 05/[address] CHEM PANEL ALT 30 unit/L 0 - 65 05/20 [facility] CHEM PANEL AST 20 unit/L 0 - 37 05/[address] CHEM PANEL Total 6.2 g/dL 6.4 - 8.4 05/20 [facility] /2014 [facility] HEMATOLOGY INR 1.06 0.85 - 05/20 [place] 1. [facility] HEMATOLOGY PT 14.1 s 12.0 - 05/20 [facility] 14.7 [facility] HEMATOLOGY PTT 67.4 s 22.9 - 05/20 [facility] 35.8 [facility] HEMATOLOGY Eosinophils 0.2 K/CMM 0.0 - 0.5 05/20 [facility] # [facility] CHEM PANEL AST 27 unit/L 0 - 37 05/17 [facility] CHEM PANEL ALT 30 unit/L 0 - 65 05/17 [facility] CHEM PANEL Albumin Lvl 3.0 g/dL 3.5 - 5.0 05/17 [facility] CHEM PANEL Alk Phos 65 unit/L 39 - 136 05/17 [facility] CHEM PANEL B/C Ratio 11 6 - 25 05/17 [facility] CHEM PANEL Bili Total 0.8 mg/dL 0.2 - 1.3 05/17 [facility] CHEM PANEL Total 5.6 g/dL 6.4 - 8.4 05/17 [facility] CHEM PANEL A/G Ratio 1.2 0.7 - 1.6 05/17 [facility] CHEM PANEL Globulin 2.6 g/dL 2.0 - 4.0 05/17 [facility] HEMATOLOGY PTT 58.0 s 22.9 - 05/16 [facility] [place] CHEM PANEL Phosphorus 3.0 mg/dL 2.5 - 4.5 05/15 [facility] CHEM PANEL Magnesium 1.8 mg/dL 1.8 - 2.4 05/15 Lvl [facility] ELECTROLYT AGAP 8.9 meq/L 10.0 - 05/15 [facility] 20.0 /2014 [facility] ELECTROLYT eGFR 59 05/15 Result Comment: The [...] recommended in the following populations: [place] [address] Individuals with unstable creatinine concentrations, including patients [...] Lvl 8.5 mg/dL 8.5 - 10.5 05/15 [facility] ELECTROLYT CO2 27 meq/L 24 - 32 05/15 [facility] /2014 [facility] ELECTROLYT Sodium Lvl 141 meq/L 135 - 145 05/15 ES [facility] ELECTROLYT Potassium 3.9 meq/L 3.5 - 5.1 05/15 [facility] Lvl /2014 [facility] ELECTROLYT Chloride Lvl 109 meq/L 95 - 109 05/15 [facility] ELECTROLYT Glucose Lvl 117 mg/dL 70 - 99 05/15 ES [facility] ELECTROLYT Creatinine 1.15 mg/dL 0.50 - 05/15 [facility] Lvl 1.40 /2014 [facility] ELECTROLYT BUN 14 mg/dL 7 - 22 05/15 ES [facility] HEMATOLOGY Segs-Bands # 2.7 K/CMM 1.5 - 8.1 05/15 [facility] HEMATOLOGY Lymphocytes 1.2 K/CMM 1.0 - 5.5 05/15 # /2014 [facility] HEMATOLOGY Eosinophils 0.2 K/CMM 0.0 - 0.5 05/15 # /2014 [facility] HEMATOLOGY Monocytes # 0.5 K/CMM 0.0 - 0.8 05/15 [facility] HEMATOLOGY Macrocyte 1+ None Seen 05/15 [facility] *ABN* (05/15/15 4:30 AM) HEMATOLOGY Monocytes 11.6 % 2.0 - 12.0 05/15 [facility] HEMATOLOGY Lymphocytes 25.4 % 20.0 - 05/15 40.0 [facility] HEMATOLOGY Segs 57.5 % 45.0 - 05/15 75.0 [facility] HEMATOLOGY Basophils 0.5 % 0.0 - 1.0 05/15 [facility] HEMATOLOGY Eosinophils 5.0 % 0.0 - 4.0 05/15 [facility] HEMATOLOGY PTT 56.4 s 22.9 - 05/15 35.8 /2014 [facility] HEMATOLOGY MCH 33.4 pg 27.0 - 05/15 31.0 [facility] HEMATOLOGY Hct 32.9 % 42.0 - 05/15 [facility] 54.0 /2014 [facility] HEMATOLOGY MCV 99.6 fL 80.0 - 12 [facility] 94.0 /2014 [facility] HEMATOLOGY Platelet 104 K/CMM 133 - 450 05/15 [facility] HEMATOLOGY MPV 9.5 fL 7.4 - 10.4 05/15 [facility] HEMATOLOGY RDW 13.4 % 11.5 - 12 [facility] 14.5 /2014 [facility] HEMATOLOGY MCHC 33.6 g/dL 32.0 - 05/15 [facility] 36.0 /2014 [facility] HEMATOLOGY RBC 3.30 M/CMM 4.70 - 12 [facility] 6.10 /2014 [facility] HEMATOLOGY Hgb 11.0 g/dL 14.0 - 12 [facility] 18.0 /2014 [facility] WBC 4.7 K/CMM 3.7 - 10.4 05/15 [facility] PTT 55.3 s 22.9 - 05/14 [facility] 35.8 /2014 [facility] CHEM PANEL Phosphorus 3.2 mg/dL 2.5 - 4.5 05/14 [facility] CHEM PANEL Magnesium 1.7 mg/dL 1.8 - 2.4 05/14 Lv [facility] CHEM PANEL eGFR 52 05/14 Result [...] recommended in the following populations: [place] [address] Individuals with unstable creatinine concentrations, including patients [...] Lvl 108 meq/L 95 - 109 05/14 [facility] CHEM PANEL Potassium 3.9 meq/L 3.5 - 5.1 05/14 L[facility] [facility] CHEM PANEL Sodium Lvl 142 meq/L 135 - 145 05/14 [facility] CHEM PANEL Creatinine 1.29 mg/dL 0.50 - 05/14 Lvl 1.40 /2014 [facility] CHEM PANEL CO2 26 meq/L 24 - 32 12 /2014 [facility] CHEM PANEL Calcium Lvl 8.2 mg/dL 8.5 - 10.5 05/14 /2014 [facility] CHEM PANEL BUN 20 mg/dL 7 - 22 05/14 /2014 [facility] CHEM PANEL Glucose Lvl 111 mg/dL 70 - 99 12 /2014 [facility] CHEM PANEL AGAP 11.9 meq/L 10.0 - 12 MH 20.0 /2014 [facility] HEMATOLOGY MPV 9.3 fL 7.4 - 10.4 05/14 /2014 [facility] HEMATOLOGY RDW 13.2 % 11.5 - 12 MH 14.5 /2014 [facility] HEMATOLOGY MCHC 33.2 g/dL 32.0 - 05/14 MH 36.0 /2014 [facility] HEMATOLOGY Platelet 102 K/CMM 133 - 450 12 /2014 [facility] HEMATOLOGY MCH 33.2 pg 27.0 - 05/14 31.0 /2014 [facility] HEMATOLOGY Hct 32.7 % 42.0 - 05/14 MH 54.0 /2014 [facility] HEMATOLOGY MCV 99.9 fL 80.0 - 05/14 94.0 /2014 [facility] HEMATOLOGY WBC 5.1 K/CMM 3.7 - 10.4 05/14 /2014 [facility] HEMATOLOGY RBC 3.27 M/CMM 4.70 - 05/14 MH 6.10 /2014 [facility] HEMATOLOGY Hgb 10.9 g/dL 14.0 - 05/14 18.0 /2014 [facility] HEMATOLOGY Lymphocytes 1.4 K/CMM 1.0 - 5.5 05/14 # /2015 [facility] HEMATOLOGY Monocytes # 0.5 K/CMM 0.0 - 0.8 05/14 /2014 [facility] HEMATOLOGY Segs-Bands # 3.0 K/CMM 1.5 - 8.1 05/14 /2014 [facility] HEMATOLOGY Basophils 0.5 % 0.0 - 1.0 05/14 /2014 [facility] HEMATOLOGY Eosinophils 0.2 K/CMM 0.0 - 0.5 05/14 # /2014 [facility] HEMATOLOGY Macrocyte 1+ None Seen 05/14 [facility] *ABN* (05/14/15 6:20 AM) HEMATOLOGY Segs 58.7 % 45.0 - 12 MH 75.0 /2014 [facility] HEMATOLOGY Lymphocytes 26.6 % 20.0 - 12 MH 40.0 /2015 [facility] HEMATOLOGY Monocytes 10.1 % 2.0 - 12.0 05/14 MH /2014 [facility] HEMATOLOGY Eosinophils 4.1 % 0.0 - 4.0 05/14 [facility] CARDIAC Total CK 74 unit/L 12 - 191 05/13 ENZYMES /2014 [facility] CARDIAC Troponin-I 0.69 ng/mL 0.00 - 12 Result ENZYMES 0.40 /2015 Comment: [facility] Critical Result(s) called to Taz Hebert RN at 05/13/2015 03:08 by shyann. Read back OK. CHEM PANEL Phosphorus 3.0 mg/dL 2.5 - 4.5 05/13 MH [facility] CHEM PANEL Magnesium 1.8 mg/dL 1.8 - 2.4 05/13 Lv [facility] ELECTROLYT AGAP 9.0 meq/L 10.0 - [...] is not recommended in the following populations: [facility] 3m2 Individuals with unstable creatinine concentrations, [...] 8.8 mg/dL 8.5 - 10.5 05/13 ES [facility] ELECTROLYT CO2 28 meq/L 24 - 32 05/13 ES [facility] ELECTROLYT Chloride Lvl 108 meq/L 95 - 109 05/13 ES [facility] ELECTROLYT Potassium 4.0 meq/L 3.5 - 5.1 05/13 ES Lvl [facility] ELECTROLYT Glucose Lvl 127 mg/dL 70 - 99 05/13 ES [facility] ELECTROLYT Sodium Lvl 141 meq/L 135 - 145 05/13 /2014 [facility] ELECTROLYT Creatinine 1.36 mg/dL 0.50 - 05/13 ES Lvl 1.40 /2014 [facility] ELECTROLYT BUN 29 mg/dL 7 - 22 05/13 [facility] HEMATOLOGY Eosinophils 0.1 K/CMM 0.0 - 0.5 05/13 MH # /2014 [facility] HEMATOLOGY Monocytes # 0.4 K/CMM 0.0 - 0.8 05/13 /2014 [facility] HEMATOLOGY Macrocyte 1+ None Seen 05/13 [facility] *ABN* (05/13/15 2:07 AM) HEMATOLOGY Segs-Bands # 2.7 K/CMM 1.5 - 8.1 05/13 [facility] HEMATOLOGY Basophils 0.4 % 0.0 - 1.0 05/13 [facility] HEMATOLOGY Eosinophils 3.2 % 0.0 - 4.0 05/13 [facility] HEMATOLOGY Lymphocytes 1.2 K/CMM 1.0 - 5.5 05/13 /2014 [facility] HEMATOLOGY Monocytes 8.6 % 2.0 - 12.0 05/13 /2014 [facility] HEMATOLOGY Lymphocytes 27.6 % 20.0 - 05/13 MH 40.0 [facility] HEMATOLOGY Segs 60.2 % 45.0 - 05/13 MH 75.0 [facility] HEMATOLOGY WBC 4.4 K/CMM 3.7 - 10.4 05/13 /2014 [facility] HEMATOLOGY RBC 3.33 M/CMM 4.70 - 05/13 MH 6.10 [facility] HEMATOLOGY Platelet 114 K/CMM 133 - 450 05/13 /2014 [facility] HEMATOLOGY MPV 10.0 fL 7.4 - 10.4 05/13 /2014 [facility] HEMATOLOGY Hgb 11.3 g/dL 14.0 - 05/13 MH 18.0 [facility] HEMATOLOGY Hct 33.1 % 42.0 - 12 MH 54.0 [facility] HEMATOLOGY RDW 13.4 % 11.5 - 12 MH 14. [facility] HEMATOLOGY MCV 99.4 fL 80.0 - 05/13 MH 94.0 [facility] HEMATOLOGY MCH 34.0 pg 27.0 - 12 MH 31.0 [facility] HEMATOLOGY MCHC 34.2 g/dL 32.0 - 12 MH 36.0 [facility] LIPIDS Trig 302 mg/dL <=149 05/13 mg/dL /2015 [facility] LIPIDS VLDL 60 05/13 /2014 [facility] LIPIDS Chol 143 mg/dL <=199 05/13 mg/dL /2014 [facility] CHD Risk 5.11 4.00 - 05/13 7.30 /2014 [facility] LIP[facility] HDL 28 mg/dL >=61 mg/dL 05/13 /2014 [facility] LIPIDS LDL 55 mg/dL <=99 mg/dL 05/13 (Calculated) [facility] CARDIAC CK MB Index 3.9 0.0 - 2.5 05/13 ENZYMES /2014 [facility] CARDIAC CK MB 3.3 ng/mL 0.5 - 3.6 05/13 ENZYMES /2014 [facility] CARDIAC Total CK 85 unit/L 12 - 191 05/13 ENZYMES /2014 [facility] CARDIAC Troponin-I 0.69 ng/mL 0.00 - 05/13 Result ENZYMES 0.40 /2014 Comment: [facility] Critical Result(s) called to Taz Hebert RN at 05/12/2015 22:11 by [email or web address]. Read back OK. HEMATOLOGY INR 1.14 0.85 - 05/13 1.17 /2014 [facility] HEMATOLOGY PT 14.9 s 12.0 - 05/13 14.7 /2014 [facility] CARDIAC BNP 408 pg/mL <=100 05/12 ENZYMES pg/mL /2014 [facility] CARDIAC Troponin-I 1.25 ng/mL 0.00 - 05/12 Result ENZYMES 0.40 /2014 Comment: [facility] Critical Result(s) called to jose alfredo shearer at _05/12/2015 15:38 bybz_. Read back OK. CARDIAC Total CK 112 unit/L 12 - 191 05/12 ENZYMES /2014 [facility] CARDIAC CK MB 4.5 ng/mL 0.5 - 3.6 05/12 ENZYMES /2014 [facility] CARDIAC CK MB Index 4.0 0.0 - 2.5 05/12 ENZYMES /2014 [facility] CHEM PANEL Alk Phos 89 unit/L 39 - 136 05/12 /2014 [facility] CHEM PANEL B/C Ratio 18 6 - 25 05/12 /2014 [facility] CHEM PANEL Bili Total 0.9 mg/dL 0.2 - 1.3 05/12 /2014 [facility] CHEM PANEL A/G Ratio 1.1 0.7 - 1.6 05/12 /2014 [facility] CHEM PANEL Globulin 3.7 g/dL 2.0 - 4.0 05/12 [facility] CHEM PANEL Total 7.6 g/dL 6.4 - 8.4 05/12 Protein [facility] CHEM PANEL Albumin Lvl 3.9 g/dL 3.5 - 5.0 05/12 [facility] CHEM PANEL AST 33 unit/L 0 - 37 05/12 [facility] CHEM PANEL ALT 34 unit/L 0 - 65 05/12 [facility] HEMATOLOGY INR 1.02 0.85 - 05/12 1.17 /2015 [facility] HEMATOLOGY PT 13.7 s 12.0 - 05/12 14.7 /2015 [facility] URINE AND UA Leuk Est Negative Negative 05/12 STOOL [facility] (05/12/15 2:56 PM) URINE AND UA Bili Negative Negative 05/12 STOOL [facility] *NA* (05/12/15 2:56 PM) URINE AND UA Blood Negative Negative 05/12 STOOL [facility] (05/12/15 2:56 PM) URINE AND UA Nitrite Negative Negative 05/12 STOOL [facility] (05/12/15 2:56 PM) URINE AND UA 0.2 EU/dL 0.1 - 1.0 05/12 STOOL Urobilinogen /2014 [facility] URINE AND UA pH 5.0 5.0 - 8.0 05/12 STOOL [facility] URINE AND UA Color Yellow Yellow 05/12 STOOL [facility] *NA* (05/12/15 2:56 PM) URINE AND UA Glucose Negative Negative 05/12 STOOL mg/dL mg/dL [facility] URINE AND UA Protein Negative Negative 05/12 STOOL mg/dL mg/dL [facility] URINE AND UA Ketones Negative Negative 05/12 STOOL mg/dL mg/dL [facility] URINE AND UA Spec Grav 1.010 <=1.030 05/12 STOOL [facility] URINE AND UA Turbidity Clear Clear 05/12 STOOL [facility] (05/12/15 2:56 PM) URINE AND UA WBC 0-2 /HPF None Seen 05/12 STOOL /HPF /2014 [facility] URINE AND UA Sq Epi None Seen Few 05/12 STOOL [facility] (05/12/15 2:56 PM) URINE AND UA Bacteria None Seen None Seen 05/12 STOOL [facility] (05/12/15 2:56 PM) URINE AND UA RBC None Seen 0 - 2 05/12 STOOL /2014 [facility] (05/12/15 2:56 PM) Chest Chest 1view Name: GILL MADERA 05/12 - 1view DX DX /2014 - [facility] : 1935 Read by: Snehal Fung [...] Renal Stone Name: GILL MADERA 11/13 - [facility] Stone CT CT /2013 - Outpatient : 1935 Imaging [facility] Read by: Silverio Mahmood MD Dictated [...] reconstructions were obtained and viewed on a [employer] workstation. FINDINGS: A 5 mm calcified granuloma [...] mg/dL - 110 06/29 [place] 1[facility] Data: [facility] TESTING Upper Reportable Limit: 200 mg/dL. BEDSIDE Gluc POC 180 mg/dL 06/29 [place] 2Interpretive GLUCOSE [facility] /2011 Data: [facility] TESTING Upper Reportable Limit: 200 mg/dL. BEDSIDE Gluc POC 248 mg/dL 19 [place] 3Interpretive GLUCOSE [facility] /2011 Data: [facility] TESTING Upper Reportable Limit: 200 mg/dL. CHEMISTRY AGAP 14.6 meq/L 10.0 - 06/26 Normal MH 20.0 [facility] CHEMISTRY Calcium Lvl 9.1 mg/dL 8.5 - 10.5 06/26 Normal MH /2011 [facility] CHEMISTRY CO2 27 meq/L 24 - 32 06/26 Normal MH /2011 [facility] CHEMISTRY Chloride Lvl 103 meq/L 95 - 109 06/26 Normal MH /2011 [facility] CHEMISTRY Potassium 4.6 meq/L 3.5 - 5.1 06/26 Normal MH Lvl [facility] CHEMISTRY Sodium Lvl 140 meq/L 135 - 145 06/26 Normal MH [facility] CHEMISTRY Creatinine 2.1 mg/dL 0.5 - 1.4 06/26 HI MH Lvl /2011 [facility] CHEMISTRY Glucose Lvl 175 mg/dL 06/26 NA 4Interpretive MH /2011 Data: [facility] Reference Ranges : 0 - 7 days : 41 - 90 mg/dL7 days - 150 yrs : 70 - 99 mg/dL (fasting), based on the clinical recommendatio ns of the [place] [employer]. CHEMISTRY BUN 36 mg/dL 7 [...] 20.0 - 06/26 Normal MH 40.0 /2011 [facility] HEMATOLOGY Segs-Bands # 2.8 K/CMM 1.5 - 8.1 06/26 Normal /2011 [facility] HEMATOLOGY Segs 66.6 % 45.0 - 06/26 Normal MH 75.0 /2011 [facility] HEMATOLOGY PT 13.7 s 12.0 - 06/26 Normal MH 14.7 /2011 [facility] HEMATOLOGY INR 1.05 0.85 - 06/26 Normal 9Interpretive MH 1. Data: [facility] RECOMMENDED RANGES FOR PROTIME INR: 2.0-3.0 for most medical and surgical thromboemboli c states. 2.5-3.5 for artificial heart valves and recurrent embolism.INR SHOULD BE USED ONLY FOR PATIENTS ON STABLE ANTICOAGULANT THERAPY. HEMATOLOGY MPV 10.0 fL 7.4 - 10.4 06/26 Normal MH /2011 [facility] HEMATOLOGY MCHC 35.5 g/dL 32.0 - 06/26 Normal 36.0 /2011 [facility] HEMATOLOGY RDW 13.4 % 11.5 - 06/26 Normal 14.5 /2011 [facility] HEMATOLOGY Platelet 127 K/CMM 133 - 450 06/26 LOW MH /2011 [facility] HEMATOLOGY Hct 32.2 % 42.0 - 06/26 LOW 7Result 54.0 /2011 Comment: [facility] Reference range changed due to change in patient's gender at 08:43:59. Normal Low changed from not defined to 42.0. Normal High changed from not defined to 54.0. Result flag changed from not applied to L. HEMATOLOGY Hgb 11.4 g/dL 14.0 - 06/26 LOW 6Result 18.0 Comment: [facility] Reference range changed due to change in patient's gender at 08:43:59. Normal Low changed from not defined to 14.0. Normal High changed from not defined to 18.0. Result flag changed from not applied to L. HEMATOLOGY MCV 97.1 fL 80.0 - 06/26 HI 8Result 94.0 Comment: [facility] Reference range changed due to change in patient's gender at 08:43:59. Normal Low changed from not defined to 80.0. Normal High changed from not defined to 94.0. Result flag changed from not applied to H. HEMATOLOGY MCH 34.5 pg 27.0 - 06/26 HI 31.0 /2011 [facility] HEMATOLOGY RBC 3.32 M/CMM 4.70 - 06/26 LOW 5Result 6.10 /2011 Comment: [facility] Reference range changed due to change in patient's gender at 08:43:59. Normal Low changed from not defined to 4.70. Normal High changed from not defined to 6.10. Result flag changed from not applied to L. HEMATOLOGY WBC 4.2 K/CMM 3.7 - 10.4 06/26 Normal [facility] Vital Signs Vital Sign Value Date Comments Source Respitory Rate 19 08/06/2017 [place] Systolic (mm Hg) 131 08/06/2017 [place] Diastolic (mm Hg) 62 08/06/2017 [place] Respitory Rate 18 08/06/2017 [place] Systolic (mm Hg) 131 08/06/2017 [place] Diastolic (mm Hg) 62 08/06/2017 [place] Respitory Rate 19 08/06/2017 [place] Systolic (mm Hg) 121 08/06/2017 [place] Diastolic (mm Hg) 64 08/06/2017 [place] Weight 90.909 08/06/2017 [place] BMI Calculated 28.76 08/06/2017 [place] Height 177.8 cm 08/06/2017 [place] Temperature Oral (F) 97.6 F 08/06/2017 [place] Heart Rate 68 08/06/2017 [place] Respitory Rate 20 05/30/2017 [facility] Heart Rate 58 05/30/2017 [facility] Systolic (mm Hg) 132 05/30/2017 [facility] Diastolic (mm Hg) 68 05/30/2017 [facility] Temperature Oral (F) 98.1 F 05/30/2017 [facility] Systolic (mm Hg) 126 05/30/2017 [facility] Diastolic (mm Hg) 60 05/30/2017 [facility] Heart Rate 55 05/30/2017 [facility] Respitory Rate 20 05/30/2017 [facility] Heart Rate 59 05/30/2017 [facility] Systolic (mm Hg) 146 05/30/2017 [facility] Diastolic (mm Hg) 63 05/30/2017 [facility] Respitory Rate 20 05/30/2017 [facility] Temperature Oral (F) 97 F 05/30/2017 [facility] Weight 83.182 05/30/2017 [facility] BMI Calculated 28.72 05/30/2017 [facility] Height 170.18 cm 05/30/2017 [facility] Systolic (mm Hg) 110 12/03/[facility] Height 66 12/03/2016 [facility] Diastolic (mm Hg) 50 12/03/2016 [facility] Systolic (mm Hg) 100 11/15/2016 [facility] Height 66 11/15/2016 [facility] Diastolic (mm Hg) 50 11/15/2016 [facility] Systolic (mm Hg) 120 11/03/2016 [facility] Diastolic (mm Hg) 64 11/03/2016 [facility] Temperature Oral (F) 97.6 F 11/03/2016 [facility] Heart Rate 66 11/03/2016 [facility] Temperature Oral (F) 98.2 F 11/03/2016 [facility] Heart Rate 68 11/03/2016 [facility] Respitory Rate 18 11/03/2016 [facility] Systolic (mm Hg) 101 11/03/2016 [facility] Diastolic (mm Hg) 50 11/03/2016 [facility] Systolic (mm Hg) 121 11/03/2016 [facility] Diastolic (mm Hg) 56 11/03/2016 [facility] Respitory Rate 18 11/03/2016 [facility] Heart Rate 65 11/03/2016 [facility] Temperature Oral (F) 98.2 F 11/03/2016 [facility] Respitory Rate 18 11/03/2016 [facility] BMI Calculated 28.04 11/03/2016 [facility] Height [...] 64 12/30/2015 [facility] Respitory Rate 16 12/30/2015 [facility] BMI Calculated 28.82 12/28/2015 [facility] Weight 83.455 12/28/2015 [facility] Height 170.18 cm 12/28/2015 [facility] BMI Calculated 29.25 12/28/2015 [facility] Height 170.18 cm 12/28/2015 [facility] Weight 84.716 12/28/2015 [facility] Systolic (mm Hg) 104 05/22/2015 [facility] Diastolic (mm Hg) 52 05/22/2015 [facility] Systolic (mm Hg) 109 05/22/2015 [facility] Diastolic (mm Hg) 52 05/22/2015 [facility] Temperature Oral (F) 98.2 F 05/22/2015 [facility] Systolic (mm Hg) 140 05/22/2015 [facility] Diastolic (mm Hg) 66 05/22/2015 [facility] Temperature Oral (F) 98.2 F 05/21/2015 [facility] Temperature Oral (F) 98.0 F 05/21/2015 [facility] Respitory Rate 20 05/20/2015 [facility] Heart Rate 63 05/20/2015 [facility] Respitory Rate 18 05/20/2015 [facility] Heart Rate 63 05/20/2015 [facility] Heart Rate 73 05/20/2015 [facility] Respitory Rate 18 05/20/2015 [facility] BMI Calculated 29.35 05/17/2015 [facility] Height 170.18 cm 05/17/2015 [facility] Weight 85 05/17/2015 [facility] Systolic (mm Hg) 144 05/17/2015 MH [...] 70 06/29/2011 [facility] Heart Rate 90 06/29/2011 [facility] Temperature Oral (F) 98.0 F 06/29/2011 [facility] Respitory Rate 20 06/29/2011 [facility] Systolic (mm Hg) 137 06/29/2011 [facility] Weight 94.545 06/26/2011 [facility] Height 170.18 cm 06/26/2011 [facility] Encounters Location Location Encounter Encounter Reason Attending ADM DC Status Source Details Type Number For Provider Date Date Visit Not Sent YOANDY [id number] CHRONIC PING WING 06/28 06/29 Active 0 [facility]STOLIC /2011 [facility] FAILURE 428.22 ANGINA 413.9. [facility] Outpt Diag [id number] [place] 11/13 11/14 [facility] Outpatient Services 0 [facility] STRESS TEST [id number] 12/17 12/17 [facility] [id number] /2013 [id number] 18d Cardiovasc STRESS TEST [id number] 12/17 12/17 [facility] [id number] /2013 [id number] [facility] bb9 Cardiovasc STRESS TEST [id number] 12/17 12/17 [facility] [id number] /2013 [id number] [facility] c19 [facility]ovasc STRESS TEST [id number] 12/17 12/17 [facility] [id number] /2013 [id number] [facility] 8e8 Cardiovasc STRESS TEST [id number] 12/17 12/17 [facility] [id number] /2013 [id number] a47 Cardiovasc STRESS TEST [id number] 12/17 12/17 [facility] [id number] /2013 [id number] [facility] eaf Cardiovasc STRESS TEST [id number] 12/17 12/17 [facility] [id number] /2013 [id number] [facility] c2a Cardiovasc STRESS TEST [id number] 12/17 12/17 [facility] [id number] /2013 [id number] [facility] 790 Cardiovasc STRESS TEST [id number] 12/17 12/17 [facility] [id number] /2013 [id number] [facility] 8f0 Cardiovasc STRESS TEST [id number] 12/17 12/17 [facility] [id number] [id number] [facility] 188 Cardiovasc Established [id number] 12/17 12/17 [facility] Patient [id number] [id number] [facility] 523 Cardiovasc Established [id number] 12/17 12/17 [facility] Patient [id number] /2013 [id number] [facility] 6c1 Cardiovasc Established [id number] 12/17 12/17 [facility] Patient [id number] /2013 [id number] [facility] 31e Cardiovasc Established [id number] 12/17 12/17 [facility] Patient [id number] /2013 [facility] [id number] [facility] acf Cardiovasc Established [id number] 12/17 12/17 Cardi[facility] Patient [id number] /2013 [id number] [facility] e92 Cardiovasc Established [id number] 12/17 12/17 [facility] Patient [id number] /2013 [id number] [facility] 99c Cardiovasc Established [id number] 12/17 12/17 [facility] Patient [id number] /2013 [facility] [id number] [facility] c3c Cardiovasc Established [id number] 12/17 12/17 [facility] Patient [id number] [facility] [id number] [facility] dc5 Cardiovasc Established [id number] 12/17 12/17 [facility] Patient [id number] [facility] [id number] [facility] 2ca Cardiovasc Established [id number] 12/17 12/17 [facility] Patient [id number] [id number] [facility] 4e4 Cardiovasc Established [id number] 03/19 03/19 [facility] Patient [id number] [facility] [id number] [facility] 99e Cardiovasc Established [id number] 03/19 03/19 [facility] Patient [id number] /2013 [id number] [facility] e95 Cardiovasc Established [id number] 03/19 03/19 [facility] Patient [id number] /2013 [facility] [id number] [facility] 365 Cardiovasc Established [id number] 03/19 03/19 Cardi[facility] Patient [id number] [id number] [facility] 94f Cardiovasc Established [id number] 03/19 03/19 Cardi[facility] Patient [id number] /2013 [id number] [facility] 33a Cardiovasc Established [id number] 03/19 03/19 [facility] Patient [id number] /2013 [facility] [id number] [facility] 1d9 Cardiovasc Established [id number] 03/19 03/19 [facility] Patient [id number] /2013 [id number] [facility] 096 Cardiovasc Established [id number] 03/19 03/19 [facility] Patient [id number] [id number] [facility] 0e7 Cardiovasc Established [id number] 03/19 03/19 [facility] Patient [id number] [id number] [facility] a8b Cardiovasc Established [id number] 03/19 03/19 [facility] Patient [id number] /2013 [id number] [facility] c27 Cardiovasc Established [id number] 06/25 06/25 [facility] Patient [id number] /2014 [id number] [facility] a45 Cardiovasc Established [id number] 06/25 06/25 [facility] Patient [id number] /2014 [id number] [facility] [place] Cardiovasc Established [id number] 06/25 06/25 [facility] Patient [id number] /2014 [id number] [facility] 92b Cardiovasc Established [id number] 06/25 06/25 [facility] Patient [id number] /2014 [id number] [facility] 5fc Cardiovasc Established [id number] 06/25 06/25 [facility] Patient [id number] /2014 [facility] [id number] [facility] e6e Cardiovasc Established [id number] 06/25 06/25 [facility] Patient [id number] /2014 [facility] [id number] [facility] 1fb Cardiovasc Established [id number] 06/25 06/25 [facility] Patient [id number] /2014 [id number] [facility] bf1 Cardiovasc [place] [id number] 08/06 08/06 Cardiova ular refill [id number] /2014 [id number] [facility] a59 Cardiovasc [place] [id number] 08/06 08/06 Cardiova ular refill [id number] /2014 [facility] [id number] [facility] 2ae Cardiovasc [place] [id number] 08/06 08/06 Cardiova ular refill [id number] /2014 [facility] [id number] [facility] 3d8 Cardiovasc [place] [id number] 08/06 08/06 Cardiova ular refill 09-400c-874 /2014 scular Associatio 2-435qyg4j1 [facility] 751 Cardiovasc [place] [id number] 08/06 08/06 Cardiova ular refill [id number] /2014 [facility]atio [id number] [facility] 2ee Cardiovasc [place] [id number] 08/06 08/06 Cardiova ular refill 97-463c-[id number] /2014 [facility]ular [facility]atio [id number] [facility] 472 Cardiovasc Unknown [id number] 08/18 08/18 Cardiova ular [id number] /2014 scular Associatio [id number] [facility] d59 Cardiovasc Unknown [id number] 08/18 08/18 Cardiova ular 87-4089-b16 /2014 scular [facility]atio 9-[id number] [facility] a62 Cardiovasc Unknown [id number] 08/18 08/18 Cardiova ular 60-42ba-9e5 scular Associatio b-[id number] [facility] a07 Cardiovasc Unknown [id number] 08/18 08/18 Cardiova ular 53-4bcf-b56 /2014 scular [facility]atio [id number] [facility] 242 Cardiovasc Unknown [id number] 08/18 08/18 Cardiova ular [id number] /2014 scular Associatio [id number] [facility] 85e Cardiovasc Unknown [id number] 08/18 08/18 Cardiova ular 1c-3m64-d0g /2014 scular Associatio f-[id number] [facility] lucas Cardiovasc chest pain. [id number] 10/07 10/07 Cardiova ular 10/06 7e-4aee-8d3 /2014 [facility]ular [facility]atio [id number] [facility] 12d Cardiovasc chest pain. [id number] 10/07 10/07 Cardiova ular 10/06 9c-56g9-61u /2014 scular Associatio [id number] [facility] 40e Cardiovasc chest pain. 961lobn6-5r 10/07 10/07 Cardiova ular 10/06 a2-27r7-v9y /2014 scular Associatio 4-[id number] [facility] e95 Cardiovasc chest pain. qir05nfx-3u 10/07 10/07 Cardiova ular 10/06 0b-4419-829 /2014 scular Associatio a-[id number] [facility] cc8 Cardiovasc chest pain. w9j1l5l0-67 10/07 10/07 Cardiova ular 10/06 33-4083-959 /2014 scular Associatio a-[id number] [facility] d6e Cardiovasc chest pain. [id number]-38 10/07 10/07 Cardiova ular 10/06 77-8u3n-94z /2014 scular Associatio [id number] [facility] 512 Cardiovasc Established 9g0h4w1x-y2 01/18 01/18 Cardiova ular Patient 41-71f4-d73 scular Associ[facility] b-[id number] [facility] e4e Cardiovasc Established [id number] 01/18 01/18 Cardiova ular Patient 88-4305-97e scular [facility]atio a-lyfp26hdd [facility] 57a Cardiovasc Established [id number] 01/18 01/18 Cardiova ular Patient c0-4dde-bcf scular Associatio a-[id number] [facility] ea8 Cardiovasc Established [id number] 01/18 01/18 Cardiova ular Patient c3-0cv2-y6e scular [facility] [id number] [facility] 09c Cardiovasc Established [id number] 01/18 01/18 Cardiova ular Patient 6c-470f-80b scular [facility] [id number] [facility] b26 Cardiovasc Established [id number] 01/18 01/18 Cardiova ular Patient b6-41ae-98a /2014 scular Associatio [id number] [facility] 338 Cardiovasc possible [id number] 05/11 05/11 Cardiova ular heart b7-0cn8-c60 /2014 scular Associatio attack [id number] [facility] 24b Cardiovasc possible 9144my7h-69 05/11 05/11 Cardiova ular heart fb-4182-830 /2014 scular Associatio attack 3-91l676m69 [facility] 4a0 Cardiovasc possible [id number]-kc 05/11 05/11 Cardiova ular heart 33-42af-a79 /2014 scular Associatio attack c-[id number] [facility] ad0 Cardiovasc possible [id number] 05/11 05/11 Cardiova ular heart 37-4717-94b /2014 scular Associatio attack [id number] [facility] 39d Cardiovasc possible [id number] 05/11 05/11 Cardiova ular heart 87-4156-9e6 /2014 scular Associatio attack [id number] [facility] 6cc Cardiovasc possible [id number] 05/11 05/11 Cardiova ular heart fb-479c-ac9 /2014 scular Associatio attack [id number] [facility] af7 Cardiovasc Established [id number]-29 05/12 05/12 Cardiova ular Patient a5-1sw5-52x /2014 scular Associatio [id number] [facility] 5a7 Cardiovasc Established [id number] 05/12 05/12 Cardiova ular Patient 18-4fda-9fe /2014 scular Associatio [id number] [facility] 97a Cardiovasc Established [id number] 05/12 05/12 Cardiova ular Patient d2-8q46-g2g /2014 scular Associatio [id number] [facility] 3a7 Cardiovasc Established [id number] 05/12 05/12 Cardiova ular Patient a3-451e-8cd /2014 scular Associatio [id number] [facility] 0da Cardiovasc Established [id number] 05/12 05/12 Cardiova ular Patient a0-4ebb-9b8 /2014 scular Associatio [id number] [facility] a0a Cardiovasc Established [id number] 05/12 05/12 Cardiova ular Patient 1f-4y8f-co3 /2014 scular Associatio [id number] [facility] 1ea [facility] Inpatient [id number] Mitchell Lily 05/12 05/17 Harley [facility] [id number] [facility] 05/17 05/22 [facility] 1 Atashband /2014 [facility] Cardiovasc Pt in [id number] 05/18 05/18 Cardiova ular [facility] 8e-[id number]-864 /2014 scular Associatio 05/18 [id number] [facility] d79 Cardiovasc Pt in [id number] 05/18 05/18 Cardiova ular [facility] 9f-8gk3-73l /2014 scular Associatio 05/18 [id number] [facility] e58 Cardiovasc Pt in [id number] 05/18 05/18 Cardiova ular [facility] [id number] /2014 scular Associatio 05/18 [id number] [facility] 87e Cardiovasc Pt in [id number] 05/18 05/18 Cardiova ular [facility] d0-4770-ac3 /2014 scular Associatio 05/18 c-g8s2w8zsc [facility] e6c Cardiovasc [place] [id number] 10/18 10/18 Cardiova ular [place] fe-9xi7-1ge /2015 scular Associatio 3-[id number] [facility] 6b3 Cardiovasc [place] [id number] 10/18 10/18 Cardiova ular [place] 28-8lm2-83u /2015 scular Associatio [id number] [facility] 9b9 Cardiovasc [place] [id number] 10/18 10/18 Cardiova ular [place] f9-1r11-l9o /2015 scular Associatio [id number] [facility] b98 Cardiovasc chest pain [id number] 12/27 12/27 Cardiova ular 2a-7v2a-p13 /2015 scular Associatio c-[id number] [facility] 5ea Cardiovasc chest pain 166m9h9m-00 12/27 12/27 Cardiova ular c9-3i33-201 /2015 scular Associatio [id number] [facility] 536 [facility] [id number] [place] 12/27 12/29 Harley 2 Ajelabi /2015 [facility] Cardiovasc Established [id number] 04/10 04/10 Cardiova ular Patient 5d-4bbd-87d /2015 scular Associatio [id number] [facility] bbf [facility] [id number] Janeth 11/02 11/03 Harley 7 [place] /2016 [facility] [id number] Shahzad 05/30 05/30 Harley 3 Lee /2016 [facility] [id number] Vanda 08/06 08/06 Cj Souza 4 Romero /2017 [facility] Procedures Procedure Code Date Perfomer Comments Source CABG x 2 - [facility] Coronary artery [facility] bypass grafts x 2 [facility] [id number] [facility] CABG x 2 - [facility] Coronary artery bypass grafts x 2 [facility] of [id number] [facility] gallbladder Angioplasty [id number] [facility] [id number] [facility] CABG x 2 - [facility] Coronary artery [place] bypass grafts x 2 Excision of [id number] [facility]
--- OUTSIDE RECORDS SUMMARY | 2018-10-06 13:51 | XMS REPORT | CCD ---
:1935 Author Organization [facility] Care Team Providers Name Role Phone Jessica [...] PO, Drug 06/28/2011 06/29/2011 Discontinued Form: TAB, [id number], Start date: 06/28/11 6:00:00, Duration: 4 doses [...] based on the clinical recommendations of the [place] [employer].HEMATOLOGY Most recent to oldest [Reference [...]
--- OUTSIDE RECORDS SUMMARY | 2018-10-06 13:52 | XMS REPORT ---
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
--- OUTSIDE RECORDS SUMMARY | 2018-10-06 13:52 | XMS REPORT ---
:1935 Author Organization [employer] Care Team Providers Name Role Phone PHYLLIS WHITTINGTON Provider Role Unavailable Allergies, Adverse Reactions, Alerts Substance Reaction Event Type N.K.D.A. 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 Problem Presence of coronary angioplasty Z95.5 Active implant and graft Problem Hyperlipidemia, unspecified E78.5 Active Problem Hypothyroidism, unspecified E03.9 Active Problem 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 Problem 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 Assessment 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 Assessment Hyperlipidemia, unspecified E78.5 Active Assessment 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 Medications Medication Code System Code Instructions Start Date End Date Status Dosage spironolactone NDC 67491 25 mg orally bid Active 1 tab(s) Glumetza NDC 77086 500 mg orally bid Active 1 tab(s) clopidogrel NDC 94063 75 mg orally once Active 1 tab(s) a day Synthroid NDC 2205 200 mcg (0.2 mg) Active 1 tab(s) orally once a day carvedilol NDC 59201 3.125 mg orally 2 Active 2 tab(s) times a day glimepiride NDC 52023 1 mg orally bid Active 1 tab(s) atorvastatin NDC 71088 10 mg orally once Active 1 tab(s) a day (at bedtime) tamsulosin NDC 65421 0.4 mg orally Active 1 cap(s) once a day furosemide NDC 91188 40 mg orally once Active 1 tab(s) a day ASA NDC 0 81mg once a day Active 1 tab(s) Prilosec NDC 363 20 mg orally once Active 1 cap(s) a day Ranexa NDC 36771 1000 mg orally 2 Active 1 tab(s) times a day nitroglycerin NDC 32975 0.4 mg Active 1 tab(s) sublingually every 5 minutes losartan NDC 32846 50 mg orally once Active 1 tab(s) a day Vital Signs Date/Time: Jun 19, 2016 Blood Pressure Systolic 110 mm Hg BMI 30.66 Index Height 66 in Blood Pressure Diastolic 50 mm Hg Results No Known Results Summary Purpose [employer] Submission
--- OUTSIDE RECORDS SUMMARY | 2018-10-06 13:52 | XMS REPORT ---
:1935 Author Organization [employer] Care Team Providers Name Role Phone PHYLLIS WHITTINGTON Provider Role Unavailable Allergies, Adverse Reactions, Alerts Substance Reaction Event Type N.K.D.A. 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 Assessment 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 Problem Presence of automatic (implantable) Z95.810 Active cardiac defibrillator Medications Medication Code Code Instructions Start End Status Dosage System Date Date nitroglycerin [facility] 35254293519 0.4 mg Active 1 tab(s) sublingually every 5 minutes baclofen [facility] 00962967338 10 mg orally Active 1 tab(s) bid tamsulosin [facility] 49606187956 0.4 mg orally Active 1 cap(s) once a day ASA [facility] 19554463959 81mg once a Active 1 tab(s) day losartan [facility] 65550989102 50 mg orally Active 1 tab(s) once a day spironolactone [facility] 58540410654 25 mg orally Active 1 tab(s) bid Prilosec [facility] 62070248116 20 mg orally Active 1 cap(s) once a day glimepiride [facility] 06804879510 1 mg orally bid Active 1 tab(s) clopidogrel [facility] 20376727185 75 mg orally Active 1 tab(s) once a day furosemide ND 83333052676 40 mg orally Active 1 tab(s) once a day carvedilol [facility] 49523214907 6.25 orally 2 Active 1 tab(s) times a day Glumetza [facility] 00176304501 500 mg orally Active 1 tab(s) bid isosorbide [facility] 53716319267 30 mg orally Active 1 tab(s) dinitrate every 8 hrs Synthroid [facility] 89670355193 200 mcg (0.2 Active 1 tab(s) mg) orally once a day hydralazine [facility] 03541885956 25 mg orally 4 Active 1 tab(s) times a day Ranexa [facility] 76166475293 1000 mg orally Active 1 tab(s) 2 times a day omeprazole [facility] 04871896420 20 mg orally Active 1 cap(s) once a day Vital Signs Date/Time: September 03, 2016 Blood Pressure Systolic 136 mm Hg BMI 29.53 Index Height 66 in Blood Pressure Diastolic 60 mm Hg Results No Known Results Summary Purpose [employer] Submission
--- OUTSIDE RECORDS SUMMARY | 2018-10-06 13:52 | XMS REPORT ---
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
--- OUTSIDE RECORDS SUMMARY | 2018-10-06 13:52 | XMS REPORT ---
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
--- OUTSIDE RECORDS SUMMARY | 2018-10-06 13:52 | XMS REPORT ---
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
--- OUTSIDE RECORDS SUMMARY | 2018-10-06 13:53 | XMS REPORT ---
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 [place] coronary artery with other forms of angina [...] End Status Dosage System Date Date tamsulosin [facility] 51677596193 0.4 mg orally Active 1 cap(s) once a day ASA [facility] 95037028844 81mg once a Active 1 tab(s) day lisinopril [facility] 58102335871 5 mg orally January 07, Inactive 1 tab(s) once a day 2016 isosorbide [facility] 45800139827 10 mg orally 2 Active 1 tab(s) dinitrate times a day Synthroid [facility] 01483366131 200 mcg (0.2 Active 1 tab(s) mg) orally once a day losartan [facility] 05029449218 50 mg orally January 07, Active 1 tab(s) once a day 2016 [place] [facility] 38929601359 1000 mg orally Active 1 tab(s) 2 times a day clopidogrel [facility] 33096043751 75 mg orally Active 1 tab(s) once a day spironolactone [facility] 95149504659 25 mg orally Active 1 tab(s) once a day ivabradine [facility] 91927628132 5 mg orally 2 Active 1 tab(s) times a day (with meals) omeprazole [facility] 92403689933 20 mg orally Active 1 cap(s) once a day furosemide [facility] 47724532936 40 mg orally Active 1 tab(s) bid glimepiride [facility] 76587316575 1 mg orally bid Active 1 tab(s) nitroglycerin [facility] 48153132657 0.4 mg Active 1 tab(s) sublingually every 5 minutes Toprol XL [facility] 93787083977 12.5 mg orally Active 1/2ab(s) once a day Atorvastatin [facility] 39340285051 40 mg orally November 15, Active 1 tab(s) Calcium once a day 2017 Results No Known Results Summary Purpose [employer] Submission
--- OUTSIDE RECORDS SUMMARY | 2018-10-06 13:53 | XMS REPORT ---
:1935 Author Organization [employer] Care Team Providers Name Role Phone PHYLLIS WHITTINGTON Provider Role Unavailable Allergies, Adverse Reactions, Alerts Substance Reaction Event Type N.K.D.A. 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 00321140444 75 mg orally Active 1 tab(s) once a day furosemide [facility] 18444295535 40 mg orally Active 1 tab(s) bid Synthroid [facility] 73631340732 200 mcg (0.2 Active 1 tab(s) mg) orally once a day nitroglycerin [facility] 50612552771 0.4 mg Active 1 tab(s) sublingually every 5 minutes spironolactone [facility] 97867538693 25 mg orally Active 1 tab(s) once a day ivabradine [facility] 82850146495 5 mg orally 2 Active 1 tab(s) times a day (with meals) omeprazole [facility] 25936052291 20 mg orally Active 1 cap(s) once a day Toprol XL [facility] 05422540879 12.5 mg orally Active 1/2ab(s) once a day [place]a [facility] 05684880198 1000 mg orally Active 1 tab(s) 2 times a day glimepiride [facility] 88657145502 1 mg orally bid Active 1 tab(s) isosorbide [facility] 66446032735 10 mg orally 2 Active 1 tab(s) dinitrate times a day tamsulosin [facility] 95884268628 0.4 mg orally Active 1 cap(s) once a day ASA ND 17643153383 81mg once a Active 1 tab(s) day Atorvastatin ND 28711935737 40 mg orally November 15, Active 1 tab(s) Calcium once a day 2016 Vital Signs Date/Time: December 03, 2016 Blood Pressure Systolic 110 mm Hg BMI 29.86 Index Height 66 in Blood Pressure Diastolic 50 mm Hg Results No Known Results Summary Purpose [employer] Submission
--- OUTSIDE RECORDS SUMMARY | 2018-10-06 13:53 | XMS REPORT ---
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 Assessment 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 Problem Presence of automatic (implantable) Z95.810 Active cardiac defibrillator Medications Medication Code Code Instructions Start End Status Dosage System Date Date losartan [facility] 77520751223 50 mg orally Active 1 tab(s) once a day clopidogrel [facility] 40796482087 75 mg orally Active 1 tab(s) once a day nitroglycerin [facility] 07749857759 0.4 mg Active 1 tab(s) sublingually every 5 minutes baclofen [facility] 84199944778 10 mg orally Active 1 tab(s) bid glimepiride [facility] 93977849282 1 mg orally Active 1 tab(s) once aday spironolactone [facility] 19866691195 25 mg orally Active 1 tab(s) bid furosemide [facility] 90813214974 40 mg orally Active 1 tab(s) once a day Glumetza [facility] 76437816028 500 mg orally Active 1 tab(s) bid carvedilol [facility] 06696600189 6.25 orally 2 Active 1 tab(s) times a day Ranexa [facility] 57493686431 1000 mg orally Active 1 tab(s) 2 times a day omeprazole [facility] 58893170461 20 mg orally Active 1 cap(s) once a day Prilosec [facility] 65664681570 20 mg orally Active 1 cap(s) once a day Synthroid [facility] 99946516645 200 mcg (0.2 Active 1 tab(s) mg) orally once a day hydralazine [facility] 97112093364 25 mg orally 4 Active 1 tab(s) times a day Lasix [facility] 60591319700 40 mg orally Ricarda Active 1 tab(s) once a day 2016 ASA [facility] 45501376191 81mg once a Active 1 tab(s) day tamsulosin [facility] 34144136194 0.4 mg orally Active 1 cap(s) once a day isosorbide [facility] 62149397190 30 mg orally Active 1 tab(s) dinitrate every 8 hrs Vital Signs Date/Time: September 25, 2016 Blood Pressure Systolic 122 mm Hg BMI 30.02 Index Height 66 in Blood Pressure Diastolic 50 mm Hg Results No Known Results Summary Purpose [employer] Submission
--- OUTSIDE RECORDS SUMMARY | 2018-10-06 13:53 | XMS REPORT ---
[...] Medications Results No Known Results Summary Purpose [employer] Submission
--- OUTSIDE RECORDS SUMMARY | 2018-10-06 13:53 | XMS REPORT ---
[...] Medications Results No Known Results Summary Purpose [employer] Submission
--- OUTSIDE RECORDS SUMMARY | 2018-10-06 13:53 | XMS REPORT ---
[...] Medications Results No Known Results Summary Purpose [employer] Submission
--- OUTSIDE RECORDS SUMMARY | 2018-10-06 13:53 | XMS REPORT ---
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
--- OUTSIDE RECORDS SUMMARY | 2018-10-06 13:53 | XMS REPORT ---
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
--- OUTSIDE RECORDS SUMMARY | 2018-10-06 13:53 | XMS REPORT ---
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
--- OUTSIDE RECORDS SUMMARY | 2018-10-06 13:53 | XMS REPORT ---
[...] Start Date End Date Status Dosage losartan [facility] 48616251110 50 mg orally once January 07, Active 1 tab(s) a day 2017 Results No Known Results Summary Purpose [employer] Submission
--- OUTSIDE RECORDS SUMMARY | 2018-10-06 13:53 | XMS REPORT ---
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
--- OUTSIDE RECORDS SUMMARY | 2018-10-06 13:54 | XMS REPORT ---
:1935 Author Organization eClinicalWorks Care Team Providers Name Role Phone PHYLLIS WHITTINGTON Provider Role Unavailable Encounters Encounter Location Date Established Patient [facility], [facility] December 17, 2013 STRESS TEST [facility], [facility] December 17, 2013 Established Patient [facility], [facility] Mar 19, 2014 Problems Problem Type Condition ICD-9 Code Onset Dates Condition Status Assessment 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 Active [place] vessel Problem Diabetes mellitus type II 250.00 Active Problem Hypertension Heart Disease - w/o 402.10 Active CHF* Problem 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 Problem Chronic systolic heart failure 428.22 Active Problem S/P Automatic Defibrillator V45.02 Active Problem 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 Active elim [place] vessel Problem 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 Problem Hypercholesterolemia NOS 272.4 Active Problem Hypothyroidism (acquired) 244.9 Active Medications Medication Code System Code Instructions Start End Date Status Dosage Date Humalog MULTUM 6127 100 units/mL Active 12 units subcutaneously before meals levothyroxine MULTUM 32483 200 mcg orally Active 1 cap(s) once a day Ran[place]a MULTUM 03049 1000 mg orally 2 Active 1 tab(s) times a day nitroglycerin MULTUM 05838 0.4 mg/hr Active 1 PATCH transdermally prn nitroglycerin MULTUM 95260 0.4 mg November 26, Active 1 tab(s) sublingually every 2013 5 minutes losartan MULTUM 11226 50 mg orally once Active 1 tab(s) a day omeprazole MULTUM 14166 20 mg orally once Active 1 tab(s) a day Crestor MULTUM 68458 10 mg orally once Jan 27, Active 1 tab(s) a day (at bedtime) 2012 ASA Unknown 0 81mg once a day Active 1 tab(s) tamsulosin MULTUM 35390 0.4 mg orally once Active 1 cap(s) a day Coreg MULTUM 29165 12.5 mg orally 2 Active 1/2 tab times a day spironolactone MULTUM 57169 25 mg orally 3 Active 1 tab(s) times a day Lantus MULTUM 96424 100 units/mL Active 34 units at subcutaneously bedtime gemfibrozil MULTUM 38064 600 mg orally 2 Active 1 tab(s) times a day furosemide MULTUM 61086 20 mg orally once Active 2 tabs a day Social History Social History Element Qualifiers Date Reported Caffeine: yes. 2 cups of coffee a day Mar 19, 2014 Tobacco Use: . Status: Former Smoker quit 22 yrs ago Mar 19, 2014 Alcohol: no. Mar 19, 2014 Summary Purpose eClinicalWorks Submission
--- OUTSIDE RECORDS SUMMARY | 2018-10-06 13:54 | XMS REPORT ---
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
--- OUTSIDE RECORDS SUMMARY | 2018-10-06 13:54 | XMS REPORT ---
:1935 Author Organization eClinicalWorks Care Team Providers Name Role Phone CYN WHITTINGTONY Provider Role Unavailable Allergies, Adverse Reactions, Alerts Substance Reaction Event Type N.K.D.A. 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 Problem Chronic systolic heart failure 428.22 Active Problem S/P Automatic Defibrillator V45.02 Active Problem 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 Active [place] vessel Problem 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 Problem Hypercholesterolemia NOS 272.4 Active Problem Hypothyroidism (acquired) 244.9 Active Assessment Hypertension Heart Disease - w/o 402.10 Active CHF* Assessment S/P Automatic Defibrillator V45.02 Active Assessment Chronic systolic heart failure 428.22 Active Assessment 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 Medications Medication Code System Code Instructions Start End Date Status Dosage Date levothyroxine MULTUM 11424 200 mcg orally Active 1 cap(s) once a day nitroglycerin MULTUM 25836 0.4 mg November 26, Active 1 tab(s) sublingually every 2013 5 minutes gemfibrozil MULTUM 52604 600 mg orally 2 Active 1 tab(s) times a day omeprazole MULTUM 49547 20 mg orally once Active 1 tab(s) a day losartan MULTUM 23440 50 mg orally once Active 1 tab(s) a day Crestor MULTUM 41924 10 mg orally once Jan 27, Active 1 tab(s) a day (at bedtime) 2012 spironolactone MULTUM 61296 25 mg orally 3 Active 1 tab(s) times a day tamsulosin MULTUM 44291 0.4 mg orally bid Active 1 cap(s) ASA Unknown 0 81mg once a day Active 1 tab(s) Lantus MULTUM 75415 100 units/mL Active 34 units at subcutaneously bedtime furosemide MULTUM 79293 20 mg orally once Active 3 tsa a day Ranexa MULTUM 30739 1000 mg orally 2 Active 1 tab(s) [...]
--- OUTSIDE RECORDS SUMMARY | 2018-10-06 13:54 | XMS REPORT ---
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
--- OUTSIDE RECORDS SUMMARY | 2018-10-06 13:54 | XMS REPORT ---
:1935 Author Organization eClinicalWorks Care Team Providers Name Role Phone WHITTINGTON PHYLLIS Provider Role Unavailable Allergies, Adverse Reactions, Alerts Substance Reaction Event Type N.K.D.A. Info Not Available Non Drug Allergy Encounters Encounter Location Date Established Patient [facility], [facility] Jun 25, 2014 Established Patient [facility], [facility] December 17, 2013 STRESS TEST [facility], [facility] December 17, 2013 Established Patient [facility], [facility] Mar 19, 2014 Problems Problem Type Condition ICD-9 Code Onset Dates Condition Status Assessment 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 Active [place] vessel Problem Diabetes mellitus type II 250.00 Active Problem Hypertension Heart Disease - w/o 402.10 Active CHF* Problem 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 Problem Chronic systolic heart failure 428.22 Active Problem S/P Automatic Defibrillator V45.02 Active Problem 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 Active [place] vessel Problem 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 Problem Hypercholesterolemia NOS 272.4 Active Problem Hypothyroidism (acquired) 244.9 Active Assessment S/P Automatic Defibrillator V45.02 Active Assessment Chronic systolic heart failure 428.22 Active Assessment 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 Medications Medication Code System Code Instructions Start End Date Status Dosage Date losartan MULTUM 14259 50 mg orally once Active 1 tab(s) a day nitroglycerin MULTUM 94209 0.4 mg November 26, Active 1 tab(s) sublingually every 2013 5 minutes Lantus MULTUM 59921 100 units/mL Active 34 units at subcutaneously bedtime Crestor MULTUM 72474 10 mg orally once Jan 27, Active 1 tab(s) a day (at bedtime) 2012 levothyroxine MULTUM 15125 112 mcg orally Active 2 caps once a day spironolactone MULTUM 41257 25 mg orally 3 Active 1 tab(s) times a day carvedilol MULTUM 71250 12.5 mg orally 2 Active 1 tab(s) times a day tamsulosin MULTUM 75533 0.4 mg orally bid Active 1 cap(s) gemfibrozil MULTUM 89735 600 mg orally 2 Active 1 tab(s) times a day ASA Unknown 0 81mg once a day Active 1 tab(s) omeprazole MULTUM 24759 20 mg orally once Active 1 tab(s) a day furosemide MULTUM 27114 40 mg orally once Jun 26, Active 1 tab(s) a day 2014 Ranexa MULTUM 33289 1000 mg orally 2 Active 1 tab(s) [...]
--- OUTSIDE RECORDS SUMMARY | 2018-10-06 13:54 | XMS REPORT ---
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 Problem Hypercholesterolemia NOS 272.4 Active Problem Hypothyroidism (acquired) 244.9 Active Assessment S/P Automatic Defibrillator V45.02 Active Assessment Chronic systolic heart failure 428.22 Active Assessment 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 Medications Medication Code System Code Instructions Start End Date Status Dosage Date Humalog MULTUM 6127 100 units/mL Active 12 units subcutaneously before meals spironolactone MULTUM 71596 25 mg orally 3 Active 1 tab(s) times a day Lantus MULTUM 59232 100 units/mL Active 34 units at subcutaneously bedtime omeprazole MULTUM 19155 20 mg orally once Active 1 tab(s) a day levothyroxine MULTUM 45341 112 mcg orally Active 2 caps once a day Crestor MULTUM 13849 10 mg orally once Jan 27, Active 1 tab(s) a day (at bedtime) 2012 Lyrica MULTUM 04187 50 mg orally 2 Active 1 cap(s) times a day ASA Unknown 0 81mg once a day Active 1 tab(s) furosemide MULTUM 75156 20 mg orally tid Active 3 tsa tamsulosin MULTUM 91482 0.4 mg orally bid Active 1 cap(s) nitroglycerin MULTUM 16765 0.4 mg November 26 1 tab(s) sublingually every 2013 5 minutes losartan MULTUM 27063 50 mg orally once Active 1 tab(s) a day Ranexa MULTUM 92491 1000 mg orally 2 Active 1 tab(s) times a day gemfibrozil MULTUM 95025 600 mg orally 2 Active 1 tab(s) [...]
--- OUTSIDE RECORDS SUMMARY | 2018-10-06 13:54 | XMS REPORT ---
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
--- OUTSIDE RECORDS SUMMARY | 2018-10-06 13:54 | XMS REPORT ---
:1935 Author Organization eClinicalWorks Care Team Providers Name Role Phone PHYLLIS WHITTINGTON Provider Role Unavailable Allergies, Adverse Reactions, Alerts Substance Reaction Event Type N.K.D.A. 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 Assessment 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 Assessment Paroxysmal atrial fibrillation I48.0 Active Assessment Presence of automatic (implantable) Z95.810 Active cardiac defibrillator Problem Presence of automatic (implantable) Z95.810 Active cardiac defibrillator Medications Medication Code Code Instructions Start End Status Dosage System Date Date Toprol XL [facility] [place] 92092621472 25 mg orally Active 1 tab(s) bid Lasix [facility] [place] 73160999707 40 mg orally September Active 1 tab(s) once a day 2016 spironolactone [facility] [place] 31742516161 25 mg orally Active 1 tab(s) once a day apixaban [facility] [place] 50796263013 2.5 mg orally 2 Active 1 tab(s) times a day tamsulosin [facility] [place] 38966923619 0.4 mg orally Active 1 cap(s) once a day nitroglycerin [facility] [place] 88325514730 0.4 mg Active 1 tab(s) sublingually every 5 minutes ASA [facility] [place] 15906075869 81mg once a Active 1 tab(s) day clopidogrel [facility] [place] 85312816257 75 mg orally Active 1 tab(s) once a day Prilosec [facility] [place] 16239056161 20 mg orally Active 1 cap(s) once a day Synthroid [facility] [place] 61531936720 200 mcg (0.2 Active 1 tab(s) mg) orally once a day glimepiride [facility] [place] 86842213646 1 mg orally Active 1 tab(s) once aday losartan [facility] [place] 47741866852 50 mg orally Active 1 tab(s) once a day Lipitor [facility] [place] 24720578523 10 mg orally Active 1 tab(s) once a day Ranexa [facility] [place] 14021954361 1000 mg orally Active 1 tab(s) 2 times a day Atorvastatin ND 50460773390 20 mg orally November 15, Active 1 tab(s) Calcium once a day 2016 Vital Signs Date/Time: November 15, 2016 Blood Pressure Systolic 100 mm Hg BMI 30.02 Index Height 66 in Blood Pressure Diastolic 50 mm Hg Results No Known Results Summary Purpose eClinicalWorks Submission
--- OUTSIDE RECORDS SUMMARY | 2018-10-06 13:54 | XMS REPORT ---
[...] Start Date End Date Status Dosage Corlanor [facility] 64404601800 5 mg orally 2 December 07, Active 1 tab(s) times a day (with 2017 meals) Results No Known Results Summary Purpose eClinicalWorks Submission
--- OUTSIDE RECORDS SUMMARY | 2018-10-06 13:55 | XMS REPORT ---
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
--- OUTSIDE RECORDS SUMMARY | 2018-10-06 13:55 | XMS REPORT ---
:1935 Author Organization eClinicalWorks Care Team Providers Name Role Hugh WHITTINGTONPHYLLIS Provider Role Unavailable Allergies, Adverse Reactions, Alerts Substance Reaction Event Type N.K.D.A. Info Not Available Non Drug Allergy Encounters Encounter Location Date Established Patient [facility], [facility] Jun 25, 2014 [place] refill [facility], [facility] Aug 06, 2014 Unknown [facility], [facility] August 18, 2014 chest pain. 10/06 [facility], [facility] October 07, 2014 Established Patient [facility], [facility] December 17, 2013 STRESS TEST [facility], [facility] December 17, 2013 Established Patient [facility], [facility] Mar 19, 2014 Established Patient [facility], [facility] May 12, 2015 Established Patient [facility], [facility] Jan 18, 2015 possible heart attack [facility], [facility] May 11, 2015 chest pain [facility], [facility] December 28, 2015 Established Patient [facility], [facility] Apr 10, 2016 Pt in [facility] 05/18 [facility], [facility] May 18, 2015 [place] Change[facility], [facility] October 19, 2015 Problems Problem Type Condition ICD-9 Code Onset Dates Condition Status Assessment Presence 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 Assessment 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 [place] coronary artery with other forms of [...] Problem 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 Problem 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 Assessment 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 Assessment Hyperlipidemia, unspecified E78.5 Active Assessment 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 Medications Medication Code System Code Instructions Start Date End Date Status Dosage carvedilol MULTUM 26284 3.125 orally 2 Active 2 tab(s) times a day tamsulosin MULTUM 00530 0.4 mg orally Active 1 cap(s) once a day nitroglycerin MULTUM 87316 0.4 mg Active 1 tab(s) sublingually every 5 minutes losartan MULTUM 31200 50 mg orally once Active 1 tab(s) a day Glumetza MULTUM 76520 500 mg orally 2 Active 1 tab(s) times a day ASA Unknown 0 81mg once a day Active 1 tab(s) clopidogrel MULTUM 80399 75 mg orally once Active 1 tab(s) a day Prilosec MULTUM 363 20 mg orally once Active 1 cap(s) a day Synthroid MULTUM 2205 200 mcg (0.2 mg) Active 1 tab(s) orally once a day spironolactone MULTUM 18704 25 mg orally 3 Active 1 tab(s) times a day furosemide MULTUM 98278 40 mg orally once Active 1 tab(s) a day atorvastatin MULTUM 75188 10 mg orally once Active 1 tab(s) a day (at bedtime) glimepiride MULTUM 74889 1 mg orally bid Active 1 tab(s) Ranexa MULTUM 81590 1000 mg orally 2 Active 1 tab(s) [...]
--- OUTSIDE RECORDS SUMMARY | 2018-10-06 13:55 | XMS REPORT ---
:1935 Author Organization eClinicalWorks Care Team Providers Name Role Phone YONAS AGUIRRE Provider Role Unavailable Allergies, Adverse Reactions, Alerts Substance Reaction Event Type N.K.D.A. Info Not Available Non Drug Allergy Encounters Encounter Location Date Established Patient [facility], [facility] Jun 25, 2014 [place] refill [facility], [facility] Aug 06, 2014 Unknown [facility], [facility] August 18, 2014 chest pain. 10/06 [facility], [facility] October 07, 2014 Established Patient [facility], [facility] December 17, 2013 STRESS TEST [facility], [facility] December 17, 2013 Established Patient [facility], [facility] Mar 19, 2014 Established Patient [facility], [facility] May 12, 2015 Established Patient [facility], [facility] Jan 18, 2015 possible heart attack [facility], [facility] May 11, 2015 Problems Problem Type Condition ICD-9 Code Onset Dates Condition Status Assessment Presence 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 Assessment 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 Assessment Hyperlipidemia, unspecified E78.5 Active Assessment 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 Problem 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 Problem 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 Problem Presence 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 Problem Hypothyroidism, unspecified E03.9 Active Assessment 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 Problem 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 Problem Hyperlipidemia, unspecified E78.5 Active Medications Medication Code System Code Instructions Start End Date Status Dosage Date nitroglycerin MULTUM 63947 0.4 mg November 26, Active 1 tab(s) sublingually every 2013 5 minutes omeprazole MULTUM 48156 20 mg orally once Active 1 tab(s) a day tamsulosin MULTUM 40449 0.4 mg orally bid Active 1 cap(s) spironolactone MULTUM 97509 25 mg orally 3 Active 1 tab(s) times a day levothyroxine MULTUM 87781 112 mcg orally Active 2 caps once a day carvedilol MULTUM 43672 12.5 mg orally 2 Active 1 tab(s) times a day furosemide MULTUM 92089 40 mg orally once Jun 26, Active 1 tab(s) a day 2014 Crestor MULTUM 90347 10 mg orally once Jan 27, Active 1 tab(s) a day (at bedtime) 2012 Ranexa MULTUM 10826 1000 mg orally 2 Active 1 tab(s) times a day gemfibrozil MULTUM 56336 600 mg orally 2 Active 1 tab(s) times a day losartan MULTUM 02606 50 mg orally once Active 1 tab(s) a day Lantus MULTUM 80803 100 units/mL Active 34 units at subcutaneously [...]
--- OUTSIDE RECORDS SUMMARY | 2018-10-06 13:55 | XMS REPORT ---
:1935 Author Organization eClinicalWorks Care Team Providers Name Role Phone PHYLLIS WHITTINGTON Provider Role Unavailable Encounters Encounter Location Date Established Patient [facility], [facility] Jun 25, 2014 [place] refill [facility], [facility] Aug 06, 2014 Unknown [facility], [facility] August 18, 2014 chest pain. 10/06 [facility], [facility] October 07, 2014 Established Patient [facility], [facility] December 17, 2013 STRESS TEST [facility], [facility] December 17, 2013 Established Patient [facility], [facility] Mar 19, 2014 Established Patient [facility], [facility] May 12, 2015 Established Patient [facility], [facility] Jan 18, 2015 possible heart attack [facility], [facility] May 11, 2015 chest pain [facility], [facility] December 28, 2015 Pt in [facility] 05/18 [facility], [facility] May 18, 2015 [place] [facility], [facility] October 19, 2015 Problems Problem Type Condition ICD-9 Code Onset Dates Condition Status Problem Presence 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 Problem 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
--- OUTSIDE RECORDS SUMMARY | 2018-10-06 13:55 | XMS REPORT ---
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
--- OUTSIDE RECORDS SUMMARY | 2018-10-06 13:55 | XMS REPORT ---
[...] Association, [facility] December 17, 2013 Pt in [facility] 05/18 Cardiovascular Association, [facility] May 18, 2015 STRESS TEST Cardiovascular Association, [facility] December 17, 2013 [facility] Cardiovascular Association, [facility] October 19, 2015 Established Patient Cardiovascular Association, [facility] Mar 19, 2014 Established Patient Cardiovascular Association, [facility] May 12, 2015 Established Patient Cardiovascular Association, [facility] Jan 18, 2015 possible heart attack Cardiovascular Association, [facility] May 11, 2015 Problems Problem Type Condition ICD-9 Code Onset Dates Condition Status Problem Presence 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 Problem 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
--- OUTSIDE RECORDS SUMMARY | 2018-10-06 13:56 | XMS REPORT ---
:1935 [facility] Address [address] [place] [address] Care Team Providers Name Role Phone KARI DUNCAN Unavailable Unavailable Problems This patient has no known problems. Allergies, Adverse Reactions, Alerts This patient has no known allergies or adverse reactions. Medications This patient has no known medications. Results Test Description Test Time Test Comments Text Results Atomic Results Result Comments PROTHROMBIN TIME/INR 2017-12-20 07:35:00 Test Item Value Reference Range Comments PROTIME (BEAKER) (test wlrb=537) 15.1 seconds 11.7-14.7 INR (BEAKER) (test quyf=230) 1.2 <=5.9 RECOMMENDED COUMADIN/WARFARIN INR THERAPY RANGESSTANDARD DOSE: 2.0 - 3.0 Includes: PROPHYLAXIS forvenous thrombosis, systemic embolization; TREATMENT for venous thrombosis and/or pulmonary embolus.HIGH RISK: Target INR is 2.5-3.5 for patients with mechanical heart valves.BASIC METABOLIC [id number] 07:33: 00 Test Item Value Reference Range Comments SODIUM (BEAKER) (test 142 meq/L 136-145 gxzm=828) POTASSIUM (BEAKER) (test 4.1 meq/L 3.5-5.1 fben=453) CHLORIDE (BEAKER) (test 105 meq/L 98-107 paqb=508) CO2 (BEAKER) (test 28 meq/L 22-29 zeqp=534) BLOOD UREA NITROGEN 30 mg/dL 7-21 (BEAKER) (test pcdg=396) CREATININE (BEAKER) (test 1.90 mg/dL 0.57-1.25 bviz=689) GLUCOSE RANDOM (BEAKER) 118 mg/dL 70-105 (test qvni=636) CALCIUM (BEAKER) (test 9.1 mg/dL 8.4-10.2 tpyg=389) EGFR (BEAKER) (test 34 mL/min/1.73 sq m ESTIMATED GFR IS NOT yevf=9929) ACCURATE CREATININE CLEARANCE IN PREDICTING GLOMERULAR FILTRATION RATE. ESTIMATED GFR IS NOT APPLICABLE FOR DIALYSIS PATIENTS. CBC W/PLT COUNT & AUTO [id number] 07:16:00 Test Item Value Reference Range Comments WHITE BLOOD CELL COUNT (BEAKER) (test xutq=100) 4.6 K/ L 3.5-10.5 RED BLOOD CELL COUNT (BEAKER) (test qxze=568) 3.33 M/ L 4.63-6.08 HEMOGLOBIN (BEAKER) (test etwe=809) 10.1 GM/DL 13.7-17.5 HEMATOCRIT (BEAKER) (test duwz=711) 31.9 % 40.1-51.0 MEAN CORPUSCULAR VOLUME (BEAKER) (test jnmz=891) 95.8 fL 79.0-92.2 MEAN CORPUSCULAR HEMOGLOBIN (BEAKER) (test 30.3 pg 25.7-32.2 whou=865) MEAN CORPUSCULAR HEMOGLOBIN CONC (BEAKER) (test 31.7 GM/DL 32.3-36.5 utpl=577) RED CELL DISTRIBUTION WIDTH (BEAKER) (test 17.4 % 11.6-14.4 zzla=332) PLATELET COUNT (BEAKER) (test jlol=580) 99 K/CU MM 150-450 MEAN PLATELET VOLUME (BEAKER) (test zerp=316) 11.0 fL 9.4-12.4 NUCLEATED RED BLOOD CELLS (BEAKER) (test 0 /100 WBC 0-0 xlao=067) NEUTROPHILS RELATIVE PERCENT (BEAKER) (test 68 % mzhm=357) LYMPHOCYTES RELATIVE PERCENT (BEAKER) (test 20 % enjv=787) MONOCYTES RELATIVE PERCENT (BEAKER) (test 9 % isga=225) EOSINOPHILS RELATIVE PERCENT (BEAKER) (test 2 % jbnv=344) BASOPHILS RELATIVE PERCENT (BEAKER) (test 0 % wmad=980) NEUTROPHILS ABSOLUTE COUNT (BEAKER) (test 3.12 K/ L 1.78-5.38 dwto=155) LYMPHOCYTES ABSOLUTE COUNT (BEAKER) (test 0.93 K/ L 1.32-3.57 jrux=019) MONOCYTES ABSOLUTE COUNT (BEAKER) (test iogr=331) 0.40 K/ L 0.30-0.82 EOSINOPHILS ABSOLUTE COUNT (BEAKER) (test 0.09 K/ L 0.04-0.54 msdk=367) BASOPHILS ABSOLUTE COUNT (BEAKER) (test jhbm=444) 0.01 K/ L 0.01-0.08 IMMATURE GRANULOCYTES-RELATIVE PERCENT (BEAKER) 0 % 0-1 (test kjpk=9485)
--- NOTE | 2018-10-06 14:12 | RAD REPORT ---
EXAM DESCRIPTION: CT - Head Brain Wo Cont - 10/06/2018 2:02 pm CLINICAL HISTORY: unwitnessed fall History of fall, head injury COMPARISON: Head Brain Wo Cont dated 07/23/2018; Head Brain Wo Cont dated 07/05/2018 TECHNIQUE: All CT scans are performed using dose optimization technique as appropriate and may inclu de automated exposure control or mA/KV adjustment according to patient size. FINDINGS: No intracranial hemorrhage, hydrocephalus or extra-axial fluid collection.Mild generalized brain atrophy is present with mild periventricular and deep white matter chronic microvascular ische zachery changes.No areas of brain edema or evidence of midline shift. Mild fluid is seen in the right maxillary antrum and sphenoid sinuses. The calvarium is intact. Verte bral atherosclerosis noted. IMPRESSION: No acute intracranial abnormality. Mild sinus fluid is present.
--- NOTE | 2018-10-06 14:46 | RAD REPORT ---
EXAM DESCRIPTION: RAD - Pelvis - 10/06/2018 2:37 pm CLINICAL HISTORY: BLUNT TRAUMA COMPARISON: Femur Right dated 10/06/2018 FINDINGS: Subcapital fracture is seen involving the proximal right femur. No dislocation evident.
--- NOTE | 2018-10-06 14:46 | RAD REPORT ---
EXAM DESCRIPTION: RAD - Femur Right - 10/06/2018 2:38 pm CLINICAL HISTORY: PAIN Fall, pain COMPARISON: No comparisons FINDINGS: Subcapital fracture is seen involving the proximal right femur. No dislocation evident. At herosclerosis is present.
[2018-10-06 15:09] LABS: Absolute Lymphocytes (CBC) 0.8 K/uL (0.7-4.9); Absolute Monocytes 0.2 K/uL (0.1-1.3); Absolute Neutrophil 4.4 K/uL (1.8-8.0); Basophils % 0.6 % (0-1.3); Eosinophils % 0.2 % (0-4.4); Hematocrit 31.6 % (39.6-49.0); Lymphocytes % 14.2 % (15.3-44.8); MPV 9.8 fL (7.6-11.3); Monocytes % 4.2 % (3.3-12.3); RBC Red Blood Cell Count 3.13 M/uL (4.33-5.43)
[2018-10-06 15:15] LABS: Protime INR 1.08
--- NOTE | 2018-10-06 15:34 | EDPHYS ---
Physician Documentation [facility] Name: Blayne Ashford Age: 83 yrs Sex: Male : 1935 Arrival Date: 10/06/2018 Time: 13:41 Bed 15 Private MD: ED Physician Calixto Sorensen HPI: 10/06 15:24 This 83 yrs old Male presents to ER via EMS with complaints of Hip Injury. rn 15:24 The patient or guardian reports decreased range of motion, an injury, pain. that rn occurred at a long-term or assisted living facility, sustained from a fall, There is no obvious deformity, The patient is not able to ambulate. Patient is not able to bear weight. There is no radiation of the patient's discomfort. The complaints affect the right hip. Onset: The symptoms/episode began/occurred yesterday. Modifying factors: The symptoms are alleviated by remaining still, the symptoms are aggravated by any movement. Associated signs and symptoms: Pertinent negatives: abdominal pain, chest pain, fever, incontinence, shortness of breath, weakness. Severity of symptoms: At their worst the symptoms were mild, in the emergency department the symptoms are unchanged. The patient has not experienced similar symptoms in the past. UNwitnessed fall at long-term yesterday, hurts to move right leg at hip, xray at long-term showed femur fracture, no other injuries. . Historical: - Allergies: 13:50 No Known Allergies; ph - Home Meds: 15:54 acetaminophen 325 mg Oral tab 2 tabs as needed [Active]; Aldactone 50 mg Oral tab 1 tab ph 2 times per day [Active]; atorvastatin 40 mg Oral tab 2 tabs nightly [Active]; buspirone 10 mg Oral tab 1 tab daily [Active]; clopidogrel 75 mg Oral tab once daily [Active]; exelon patch 13.3mg/24hrs 1 patch [Active]; isosorbide dinitrate 10 mg oral tab [Active]; lactulose 10 gram/15 mL Oral soln 30 mL nightly for constipation [Active]; Lantus 100 unit/mL Sub-Q soln 10 unit daily [Active]; levothyroxine 100 mcg tab 2 tabs once daily [Active]; metoprolol tartrate 12.5 Oral tab 1 tab 2 times per day [Active]; Namenda 5 mg Oral tab daily [Active]; omeprazole 20 mg Oral TbEC daily [Active]; Ranexa 1,000 mg Oral Tb12 1 tab 2 times per day [Active]; tamsulosin 0.4 mg Oral cp24 once daily [Active]; Tradjenta 5 mg Oral tab 1 tab once daily [Active]; Vitamin D2 50,000 unit Oral cap 1 cap once wkly [Active]; Vitamin D3 1,000 unit Oral tab 2 tab daily [Active]; Zofran (as hydrochloride) 4 mg Oral tab as needed [Active]; Lasix 40 mg oral tab 1 tab once daily [Active]; dextromethorphan-guaifenesin 10-100 mg/5 mL oral syrp 10 mL twice a day [Active]; ipratropium-albuterol 0.5 mg-3 mg(2.5 mg base)/3 mL Inhl nebu 3 mL 4 times per day [Active]; Marinol 5 mg Oral cap 1 cap 2 times per day [Active]; ProMod Protein Oral liqd 30 mL daily [Active]; Claritin 10 mg Oral tab 1 tab once daily [Active]; - PMHx: 13:50 angina pectoris; Anxiety; Atrial Fib; BPH; CAD; CHF; COPD; Dementia; Diabetes - NIDDM; ph HEART FAILURE; Hematuria; Hyperlipidemia; Hypertension; Hypothyroidism; MUSCLE WEAKNESS; Myocardial infarction; Pacemaker; Pneumonia; - Immunization history: Last tetanus immunization: unknown. - Family history:: not pertinent. - Social history:: Smoking status: unknown. - Ebola Screening: : No symptoms or risks identified at this time. - Hospitalizations: : No recent hospitalization is reported. ROS: 15:24 Constitutional: Negative for fever, chills, and weight loss, Eyes: Negative for injury, rn pain, redness, and discharge, Neck: Negative for injury, pain, and swelling, Cardiovascular: Negative for chest pain, palpitations, and edema, Respiratory: Negative for shortness of breath, cough, wheezing, and pleuritic chest pain, Abdomen/GI: Negative for abdominal pain, nausea, vomiting, diarrhea, and constipation, Back: Negative for injury and pain, MS/Extremity: + right hip pain and injury Skin: Negative for injury, rash, and discoloration, Neuro: Negative for headache, weakness, numbness, tingling, and seizure. Exam: 15:24 Constitutional: This is a well developed, well nourished patient who is awake, alert, rn and in no acute distress. Head/Face: Normocephalic, atraumatic. Eyes: Periorbital areas with no swelling, redness, or edema. Neck: Trachea midline, no thyromegaly or masses palpated, and no cervical lymphadenopathy. Supple, full range of motion without nuchal rigidity, or vertebral point tenderness. No Meningismus. Chest/axilla: Normal chest wall appearance and motion. Nontender with no deformity. No lesions are appreciated. Abdomen/GI: soft, non-tender Back: No spinal tenderness. Skin: Warm, dry MS/ Extremity: Pulses equal, no cyanosis, + right hip pain with ROM, no gross deformity. Neuro: Awake, alert, moves all 4 ext with equal strength and sensation, not oriented to place or time. Vital Signs: 13:43 BP 103 / 56; Pulse 60; Resp 18; Temp 98.3; Pulse Ox 98% on R/A; ph 15:30 BP 110 / 53; Pulse 59; Resp 18; Pulse Ox 100% on R/A; ph 16:27 BP 114 / 52; Pulse 59; Resp 16; Pulse Ox 99% on R/A; ph 17:46 BP 107 / 52; Pulse 61; Resp 16; Pulse Ox 98% on R/A; ph [place] Coma Score: 13:43 Eye Response: spontaneous(4). Verbal Response: confused(4). Motor Response: obeys ph commands(6). Total: 14. 15:30 Eye Response: spontaneous(4). Verbal Response: confused(4). Motor Response: obeys ph commands(6). Total: 14. 16:27 Eye Response: spontaneous(4). Verbal Response: confused(4). Motor Response: obeys ph commands(6). Total: 14. 17:46 Eye Response: spontaneous(4). Verbal Response: confused(4). Motor Response: obeys ph commands(6). Total: 14. Trauma Score (Adult): 13:43 Eye Response: spontaneous(1); Verbal Response: confused(1); Motor Response: obeys ph commands(2); Systolic BP: > 89 mm Hg(4); Respiratory Rate: 10 to 29 per min(4); [place] Score: 14; Trauma Score: 12; pt hx of dementia, confused at baseline 15:30 Eye Response: spontaneous(1); Verbal Response: confused(1); Motor Response: obeys ph commands(2); Systolic BP: > 89 mm Hg(4); Respiratory Rate: 10 to 29 per min(4); Hieu Score: 14; Trauma Score: 12 16:27 Eye Response: spontaneous(1); Verbal Response: confused(1); Motor Response: obeys ph commands(2); Systolic BP: > 89 mm Hg(4); Respiratory Rate: 10 to 29 per min(4); [place] Score: 14; Trauma Score: 12 17:46 Eye Response: spontaneous(1); Verbal Response: confused(1); Motor Response: obeys ph commands(2); Systolic BP: > 89 mm Hg(4); Respiratory Rate: 10 to 29 per min(4); Hieu Score: 14; Trauma Score: 12 MDM: 13:43 Patient medically screened. rn 15:31 Differential diagnosis: hip fracture, intertrochanteric fracture, femoral neck rn fracture. Data reviewed: vital signs, nurses notes, lab test result(s), radiologic studies, plain films, and as a result, I will admit patient. Counseling: I had a detailed discussion with the patient and/or guardian regarding: the historical points, exam findings, and any diagnostic results supporting the discharge/admit diagnosis, lab results, radiology results, the need for further work-up and treatment in the hospital. 15:32 ED course: Admitted to Dr. Beauchamp for subcapital right femur fracture, left message with rn Dr. Montelongo regarding consult.. 10/06 13:48 Order name: CBC with Diff; Complete Time: 15:31 rn 10/06 13:48 Order name: Basic Metabolic Panel; Complete Time: 15:31 rn 10/06 13:48 Order name: XRAY Femur RIGHT; Complete Time: 14:49 rn 10/06 13:48 Order name: XRAY Pelvis; Complete Time: 14:49 rn 10/06 13:48 Order name: Protime (+inr); Complete Time: 15:37 rn 10/06 13:48 Order name: Ptt, Activated; Complete Time: 15:37 rn 10/06 13:48 Order name: CT Head Brain wo Cont; Complete Time: 14:49 rn 10/06 13:48 Order name: IV Start; Complete Time: 15:03 rn 10/06 13:48 Order name: EKG; Complete Time: 13:49 rn 10/06 13:48 Order name: EKG - Nurse/Tech; Complete Time: 17:08 rn Administered Medications: 16:26 Drug: Demerol - Meperidine 12.5 mg Route: IVP; Site: right forearm; ph 17:09 Follow up: Response: No adverse reaction; Pain is decreased ph 16:26 Drug: NS 0.9% 500 ml Route: IV; Rate: bolus; Site: right forearm; ph 17:09 Follow up: Response: No adverse reaction; IV Status: Completed infusion; IV Intake: ph 500ml Disposition: 10/06/18 15:33 Hospitalization ordered by Rupali Beauchamp for Inpatient Admission. Preliminary diagnosis is Fracture of unspecified part of neck of right femur. - Bed requested for Telemetry/MedSurg (Inpatient). - Status is Inpatient Admission. ph - Condition is Stable. - Problem is new. - Symptoms have improved. UTI on Admission? No Signatures: Dispatcher [employer] EDMS Nhung Ruby Roman, MD MD rn OrangeArleen RN RN ph Corrections: (The following items were deleted from the chart) 17:10 15:33 Hospitalization Ordered by Rupali Beauchamp MD for Inpatient Admission. Preliminary bd diagnosis is Fracture of unspecified part of neck of right femur. Bed requested for Telemetry/MedSurg (Inpatient). Status is Inpatient Admission. Condition is Stable. Problem is new. Symptoms have improved. UTI on Admission? No. rn 17:18 17:10 10/06/2018 15:33 Hospitalization Ordered by Rupali Beauchamp MD for Inpatient bd Admission. Preliminary diagnosis is Fracture of unspecified part of neck of right femur. Bed requested for Telemetry/MedSurg (Inpatient). Status is Inpatient Admission. Condition is Stable. Problem is new. Symptoms have improved. UTI on Admission? No. bd 18:08 17:18 10/06/2018 15:33 Hospitalization Ordered by Rupali Beauchamp MD for Inpatient ph Admission. Preliminary diagnosis is Fracture of unspecified part of neck of right femur. Bed requested for Telemetry/MedSurg (Inpatient). Status is Inpatient Admission. Condition is Stable. Problem is new. Symptoms have improved. UTI on Admission? No. bd
--- NOTE | 2018-10-06 15:34 | ER ---
Nurse's Notes [facility] Name: Blayne Ashford Age: 83 yrs Sex: Male : 1935 Arrival Date: 10/06/2018 Time: 13:41 Bed 15 Private MD: Diagnosis: Fracture of unspecified part of neck of right femur Presentation: 10/06 13:41 Presenting complaint: EMS states: Pt from [facility], fell last night getting out of bed, xrays show R femoral neck fx, pt also has skin tear to R elbow, unknown LOC, fall unwitnessed by staff. Care prior to arrival: None. Mechanism of Injury: Fall from standing position. Trauma event details: Injury occurred in the [facility], Injury occurred: [facility]. 13:41 Acuity: LASHANDA 3 13:41 Method Of Arrival: EMS: [facility] 14:00 Transition of care: patient was received from another setting of care (long-term care facility), [facility]. Onset of symptoms was October 06, 2018. Risk Assessment: Do you want to hurt yourself or someone else? Patient reports no desire to harm self or others. Initial Sepsis Screen: Does the patient meet any 2 criteria? No. Patient's initial sepsis screen is negative. Does the patient have a suspected source of infection? No. Patient's initial sepsis screen is negative. Trauma Activation: Not Applicable Physician: ED Physician; Name: ; Notified At: ; Arrived At: Physician: General Surgeon; Name: ; Notified At: ; Arrived At: Physician: Radiology; Name: ; Notified At: ; Arrived At: Physician: Respiratory; Name: ; Notified At: ; Arrived At: Physician: Lab; Name: ; Notified At: ; Arrived At: Historical: - Allergies: 13:50 No Known Allergies; ph - Home Meds: 15:54 acetaminophen 325 mg Oral tab 2 tabs as needed [Active]; Aldactone 50 mg Oral tab 1 tab ph 2 times per day [Active]; atorvastatin 40 mg Oral tab 2 tabs nightly [Active]; buspirone 10 mg Oral tab 1 tab daily [Active]; clopidogrel 75 mg Oral tab once daily [Active]; exelon patch 13.3mg/24hrs 1 patch [Active]; isosorbide dinitrate 10 mg oral tab [Active]; lactulose 10 gram/15 mL Oral soln 30 mL nightly for constipation [Active]; Lantus 100 unit/mL Sub-Q soln 10 unit daily [Active]; levothyroxine 100 mcg tab 2 tabs once daily [Active]; metoprolol tartrate 12.5 Oral tab 1 tab 2 times per day [Active]; Namenda 5 mg Oral tab daily [Active]; omeprazole 20 mg Oral TbEC daily [Active]; Ranexa 1,000 mg Oral Tb12 1 tab 2 times per day [Active]; tamsulosin 0.4 mg Oral cp24 once daily [Active]; Tradjenta 5 mg Oral tab 1 tab once daily [Active]; Vitamin D2 50,000 unit Oral cap 1 cap once wkly [Active]; Vitamin D3 1,000 unit Oral tab 2 tab daily [Active]; Zofran (as hydrochloride) 4 mg Oral tab as needed [Active]; Lasix 40 mg oral tab 1 tab once daily [Active]; dextromethorphan-guaifenesin 10-100 mg/5 mL oral syrp 10 mL twice a day [Active]; ipratropium-albuterol 0.5 mg-3 mg(2.5 mg base)/3 mL Inhl nebu 3 mL 4 times per day [Active]; Marinol 5 mg Oral cap 1 cap 2 times per day [Active]; ProMod Protein Oral liqd 30 mL daily [Active]; Claritin 10 mg Oral tab 1 tab once daily [Active]; - PMHx: 13:50 angina pectoris; Anxiety; Atrial Fib; BPH; CAD; CHF; COPD; Dementia; Diabetes - NIDDM; ph HEART FAILURE; Hematuria; Hyperlipidemia; Hypertension; Hypothyroidism; MUSCLE WEAKNESS; Myocardial infarction; Pacemaker; Pneumonia; - Immunization history: Last tetanus immunization: unknown. - Family history:: not pertinent. - Social history:: Smoking status: unknown. - Ebola Screening: : No symptoms or risks identified at this time. - Hospitalizations: : No recent hospitalization is reported. Screenin:50 Abuse screen: Denies threats or abuse. Denies injuries from another. Nutritional ph screening: No deficits noted. Tuberculosis screening: No symptoms or risk factors identified. Fall Risk Fall in past 12 months (25 points). Secondary diagnosis (15 points) dementia, IV access (20 points). Ambulatory Aid- Crutches/Cane/Walker (15 pts). Gait- Weak (10 pts.). Mental Status- Overestimates/Forgets Limitations (15 pts.). Total Lao Fall Scale indicates High Risk Score (45 or more points). Fall prevention measures have been instituted. Side Rails Up X 2 Placed Close to Nursing Station Frequent Obs/Assessments Occuring As available patient and family educated on Fall Prevention Program and Strategies. Primary Survey: 14:00 NO uncontrolled hemorrhage observed. A: The patient is alert. Airway: patent, No ph supplemental oxygen in use on arrival. Oral cavity: clear, Trachea midline. Breathing/Chest: Respiratory pattern: regular, Respiratory effort: spontaneous, unlabored, Breath sounds: clear, bilaterally. Chest inspection: symmetrical rise and fall of the chest. Circulation: Pulses: palpable right dorsalis pedis artery and left dorsalis pedis artery. Skin color: pink, Skin temperature: warm, dry. Disability Alert. Exposure/Environment: There is no evidence of uncontrolled external bleeding. Obvious injury(ies) are noted at this time: skin tear noted to R elbow, dressing in place. 17:10 Reassessment Airway Airway Patent Oxygen No O2 Breathing/Chest Respiratory pattern ph Regular Respiratory effort Spontaneous Unlabored Circulation Color [place] Temperature Warm Dry Disability Alert. Secondary Survey: 14:00 HEENT: No deficits noted. Gastrointestinal: No deficits noted. Musculoskeletal: R foot ph noted to be outwardly rotated. Injury Description: Skin tears sustained to right elbow. Assessment: 14:00 General: Appears in no apparent distress. comfortable, slender, Behavior is calm, ph cooperative. Pain: Denies pain. Neuro: Level of Consciousness is awake, alert, obeys commands, Oriented to person, Moves all extremities. Cardiovascular: Capillary refill < 3 seconds in bilateral fingers Patient's skin is warm and dry. Respiratory: Airway is patent Respiratory effort is even, unlabored, Respiratory pattern is regular, symmetrical. GI: No signs and/or symptoms were reported involving the gastrointestinal system. Derm: Skin is fragile, is thin, Skin is pink, warm \T\ dry. Musculoskeletal: Circulation, motion, and sensation intact. Range of motion: limited in right hip R foot noted to be outwardly rotated. Injury Description: Abrasion sustained to right elbow. 15:00 Reassessment: Patient appears in no apparent distress at this time. Patient and/or ph family updated on plan of care and expected duration. Pain level reassessed. 16:30 Reassessment: Patient appears in no apparent distress at this time. Patient and/or ph family updated on plan of care and expected duration. Pain level reassessed. Pt awake and alert, oriented to person only, resting quietly, c/o pain to R hip, pain medication administered, awaiting room assignment. 17:25 Reassessment: Patient appears in no apparent distress at this time. No changes from ph previously documented assessment. Patient and/or family updated on plan of care and expected duration. Pain level reassessed. Attempted to call report to second floor, receiving nurse unavailable, will call back. Vital Signs: 13:43 BP 103 / 56; Pulse 60; Resp 18; Temp 98.3; Pulse Ox 98% on R/A; ph 15:30 BP 110 / 53; Pulse 59; Resp 18; Pulse Ox 100% on R/A; ph 16:27 BP 114 / 52; Pulse 59; Resp 16; Pulse Ox 99% on R/A; ph 17:46 BP 107 / 52; Pulse 61; Resp 16; Pulse Ox 98% on R/A; ph Hieu Coma Score: 13:43 Eye Response: spontaneous(4). Verbal Response: confused(4). Motor Response: obeys ph commands(6). Total: 14. 15:30 Eye Response: spontaneous(4). Verbal Response: confused(4). Motor Response: obeys ph commands(6). Total: 14. 16:27 Eye Response: spontaneous(4). Verbal Response: confused(4). Motor Response: obeys ph commands(6). Total: 14. 17:46 Eye Response: spontaneous(4). Verbal Response: confused(4). Motor Response: obeys ph commands(6). Total: 14. Trauma Score (Adult): 13:43 Eye Response: spontaneous(1); Verbal Response: confused(1); Motor Response: obeys ph commands(2); Systolic BP: > 89 mm Hg(4); Respiratory Rate: 10 to 29 per min(4); [place] Score: 14; Trauma Score: 12; pt hx of dementia, confused at baseline 15:30 Eye Response: spontaneous(1); Verbal Response: confused(1); Motor Response: obeys ph commands(2); Systolic BP: > 89 mm Hg(4); Respiratory Rate: 10 to 29 per min(4); Hieu Score: 14; Trauma Score: 12 16:27 Eye Response: spontaneous(1); Verbal Response: confused(1); Motor Response: obeys ph commands(2); Systolic BP: > 89 mm Hg(4); Respiratory Rate: 10 to 29 per min(4); [place] Score: 14; Trauma Score: 12 17:46 Eye Response: spontaneous(1); Verbal Response: confused(1); Motor Response: obeys ph commands(2); Systolic BP: > 89 mm Hg(4); Respiratory Rate: 10 to 29 per min(4); Hieu Score: 14; Trauma Score: 12 ED Course: 13:41 Patient arrived in ED. ph 13:41 EKG done, by public health technician. reviewed by Calixto Sorensen MD. at1 13:43 Calixto Sorensen MD is Attending Physician. rn 13:43 Triage completed. ph 13:[address] via stretcher. mw3 14:00 Patient maintains SpO2 saturation greater than 95% on room air. Thermoregulation: warm ph blanket given to patient. 14:01 CT completed. Patient tolerated procedure well. Patient moved back from CT. vr 14:01 CT Head Brain wo Cont In Process Unspecified. EDMS 14:17 Patient moved to radiology via stretcher. sw 14:23 Arleen Alberto, RN is Primary Nurse. ph 14:36 X-ray completed. Patient tolerated procedure well. Patient moved back from radiology. sw 14:37 XRAY Femur RIGHT In Process Unspecified. EDMS 14:37 XRAY Pelvis In Process Unspecified. EDMS 15:03 Initial lab(s) drawn, by md, sent to lab. Inserted saline lock: 20 gauge in right em1 forearm, using aseptic technique. Blood collected. 15:33 Rupali Beauchamp MD is Hospitalizing Provider. rn 17:11 No provider procedures requiring assistance completed. Patient admitted, IV remains in ph place. 17:11 Arm band placed on right wrist. ph 17:13 Patient has correct armband on for positive identification. Placed in gown. Bed in low ph position. Call light in reach. Side rails up X2. Pulse ox on. NIBP on. Door closed. Noise minimized. Warm blanket given. Administered Medications: 16:26 Drug: Demerol - Meperidine 12.5 mg Route: IVP; Site: right forearm; ph 17:09 Follow up: Response: No adverse reaction; Pain is decreased ph 16:26 Drug: NS 0.9% 500 ml Route: IV; Rate: bolus; Site: right forearm; ph 17:09 Follow up: Response: No adverse reaction; IV Status: Completed infusion; IV Intake: ph 500ml Intake: 13:43 PO: 0ml; Total: 0ml. ph 15:30 PO: 0ml; Total: 0ml. ph 16:27 PO: 0ml; Total: 0ml. ph 17:09 IV: 500ml; Total: 500ml. ph 17:46 PO: 0ml; IV: 500ml (IV Fluid); Total: 1000ml. ph Output: 13:43 Urine: 0ml; Total: 0ml. ph 15:30 Urine: 0ml; Total: 0ml. ph 16:27 Urine: 0ml; Total: 0ml. ph 17:46 Urine: 0ml; Total: 0ml. ph Outcome: 15:33 Decision to Hospitalize by Provider. rn 17:26 Patient's length of stay in the Emergency Department was greater than 2 hours. awaiting ph room assignmentPatient's length of stay extended due to 18:06 Admitted to Tele accompanied by tech, via wheelchair, room 211, with chart, Report ph called to CARLEY Cavazos 18:06 Condition: stable 18:08 Patient left the ED. ph Signatures: Dispatcher [employer] EDMS Calixto Sorensen MD MD rn Martinez, Eric em1 Davis, Victoria vr Gonzales, Amanda, phlebotomy lab assistant EKG Tat1 Arleen Alberto RN RN ph Warren, Shannon sw Willis, Michelle mw3
[2018-10-06] MEDS ORDERED: MEPERIDINE HCL 25 MG/0.5 ML ONE (16:19)
[2018-10-06] MEDS ORDERED: NA CHLORIDE 0.9% 500 ML ONE (16:19)
--- NOTE | 2018-10-06 16:40 | P.HP ---
Certification for Inpatient Patient admitted to: Inpatient With expected LOS: >2 Midnights Practitioner: I am a practitioner with admitting privileges, knowledge of patient current condition, hospital course, and medical plan of care. Services: Services provided to patient in accordance with Admission requirements found in Title 42 Section 412.3 of the Code of Federal Regulations Patient History Date of Service: 10/06/18 Reason for admission: Fall, femur fracture History of Present Illness: This is a 83 yr old jail patient with dementia and multiple other medical problems with an unwitnessed fall at the jail yesterday. Prior to arrival, patient refused to move right leg and unable to bear weight on it. Prior to fall, patient was mobile. A x-ray in the jail was with right femur fracture. He was sent to the ER via ambulance. In the ER, patient was not in any acute distress as long as he did not move his leg, HDS and at baseline mentation greenberg. His labs were remarkable for platelets of 93, otherwise unremarkable. His pelvis x-ray positive for subcapital right femur fracture without dislocation. He was given IVF and meperidine. Dr. Montelongo, orthopedics was consulted from the ER along with cardiology for cardiac clearance. At the time of my exam, patient was confused but I am unsure of his baseline as no family at bedside. He was in no acute distress. He was hemodynamically stable. Allergies No Known Allergies Allergy (Verified 07/23/18 22:49) Home medications list reviewed: Yes Home Medications: Acetaminophen 2 tab PO Q6HP PRN 07/23/18 Atorvastatin Calcium 2 tab PO BEDTIME 07/23/18 Buspirone HCl [Buspar] 10 mg PO SEECOM 07/23/18 Cholecalciferol (Vitamin D3) [Vitamin D3] 2 tab PO DAILY 07/23/18 Clopidogrel Bisulfate [Plavix*] 75 mg PO DAILY 07/23/18 Ergocalciferol (Vitamin D2) [Vitamin D2] 50,000 unit PO EVERY 7TH DAY 07/23/18 Insulin Glargine Human [Lantus*] 10 unit SQ DAILY 07/23/18 Lactulose 30 ml PO PRN PRN 07/23/18 Levothyroxine [Synthroid*] 2 tab PO [id number] 07/23/18 Linagliptin [Tradjenta] 5 mg PO DAILY 07/23/18 Memantine HCl [Namenda] 5 mg PO DAILY 07/23/18 Omeprazole 20 mg PO DAILY 07/23/18 Ondansetron HCl [Zofran] 4 mg PO TIDP PRN 07/23/18 Ranolazine [Ranexa] 1 tab PO Q12H 07/23/18 Rivastigmine [Exelon] 13.3 mg TD Q24H 07/23/18 Spironolactone [Aldactone] 1 tab PO BID 07/23/18 Tamsulosin [Flomax*] 0.4 mg PO BEDTIME 07/23/18 Isosorbide Dinit [Isordil*] 10 mg PO BID #30 tab 07/27/18 Metoprolol Tartrate [Lopressor*] 12.5 mg PO BID 6AM 6PM #60 tab 07/27/18 Dronabinol [Marinol] 5 mg PO BID 09/19/18 Furosemide [Lasix*] 40 mg PO DAILY 09/19/18 Loratadine [Claritin*] 10 mg PO DAILY 09/19/18 Protein Supplement [Promod] 30 ml PO DAILY 09/19/18 Oseltamivir Phosphate [Tamiflu Suspension] 5 ml PO DAILY #1 bottle 09/22/18 - Past Medical/Surgical History Diabetic: Yes -: NIDDM -: PAcemaker -: afib per hx -: CAD -: chronic systolic CHF EF 25-29% -: Dementia -: hypothyroidism -: HTN -: Pneumonia -: COPD -: BPH -: angina -: pacemaker -: triple bypass - Family History Father -: Heart disease - Social History Alcohol use: No CD- Drugs: No Caffeine use: No Review of Systems is unable to be obtained Physical Examination - Physical Exam General: Alert, In no apparent distress, Oriented x2 HEENT: Atraumatic, PERRLA, Mucous membr. moist/pink, EOMI, Sclerae nonicteric Neck: Supple, 2+ carotid pulse no bruit, No LAD, Without JVD or thyroid abnormality Respiratory: Clear to auscultation bilaterally, Normal air movement Cardiovascular: Regular rate/rhythm, Normal S1 S2 Gastrointestinal: Normal bowel sounds, No tenderness Musculoskeletal: No tenderness Integumentary: No rashes Neurological: Normal gait, Normal speech, Normal strength at 5/5 x4 extr, Normal tone, Normal affect Lymphatics: No axilla or inguinal lymphadenopathy - Studies Laboratory Data (last 24 hrs) 10/06/18 14:55: PT 12.7 H, INR 1.08, APTT 31.9 10/06/18 14:55: Sodium 143, Potassium 4.0, BUN 38 H, Creatinine 1.75 H, Glucose 201 H 10/06/18 14:55: WBC 5.4, Hgb 10.6 L, Hct 31.6 L, Plt Count 93 L Assessment and Plan - Problems (Diagnosis) (1) Femur fracture, right Current Visit: Yes Status: Acute Plan: Pain control Orhtopedic consultation, Dr. montelongo Cardiology consult for cardiac clearance Hold IVF due to heart failure history Qualifiers: Encounter type: initial encounter Femur location: neck Fracture type: closed Qualified Code(s): S72.001A - Fracture of unspecified part of neck of right femur, initial encounter for closed fracture (2) Fall Current Visit: Yes Status: Acute Plan: CT head negative for any acute abnormalities Qualifiers: Encounter type: initial encounter Qualified Code(s): W19.XXXA - Unspecified fall, initial encounter (3) CHF (congestive heart failure) Current Visit: No Status: Chronic Plan: Cardiology consultation for cardiac clearance. No evidence of volume overload one exam at this time. We will resume home medications once reconciled. Qualifiers: Heart failure type: systolic Heart failure chronicity: chronic Qualified Code(s): I50.22 - Chronic systolic (congestive) heart failure (4) History of pacemaker Current Visit: No Status: Chronic (5) Atrial flutter Onset Date: 01/27/18 Current Visit: No Status: Chronic Plan: Stable, restart home medications. Hold anticoagulation Qualifiers: Atrial flutter type: typical Qualified Code(s): I48.3 - Typical atrial flutter (6) Dementia Onset Date: 12/31/17 Current Visit: No Status: Chronic Qualifiers: Dementia type: Parkinson's disease Dementia behavioral disturbance: without behavioral disturbance Qualified Code(s): G20 - Parkinson's disease; F02.80 - Dementia in other diseases classified elsewhere without behavioral disturbance (7) CAD (coronary artery disease) Onset Date: 12/31/17 Current Visit: No Status: Chronic Qualifiers: Coronary Disease-Associated Artery/Lesion type: [place] artery [place] vs. transplanted heart: [place] heart Associated angina: without angina Qualified Code(s): I25.10 - Atherosclerotic heart disease of [place] coronary artery without angina pectoris (8) Diabetes mellitus Onset Date: 10/21/17 Current Visit: No Status: Chronic Qualifiers: Diabetes mellitus type: type 2 Diabetes mellitus manager long term care insulin use: with manager long term care use Diabetes mellitus complication status: without complication Qualified Code(s): E11.9 - Type 2 diabetes mellitus without complications; Z79.4 - watermelon inspector (current) use of insulin (9) Hypothyroidism Onset Date: 10/21/17 Current Visit: No Status: Chronic Qualifiers: Hypothyroidism type: acquired Qualified Code(s): E03.9 - Hypothyroidism, unspecified (10) Hyperlipidemia Onset Date: 10/21/17 Current Visit: No Status: Chronic Qualifiers: Hyperlipidemia type: mixed hyperlipidemia Qualified Code(s): E78.2 - Mixed hyperlipidemia - Plan DVT prophylaxis: Hold for possible surgical intervention GI prophylaxis: None Diet: Heart healthy, NPO after midnight Disposition: Admit to floor with tele. Pending cardiology and orthopedic evaluation. - Advance Directives Does patient have a Living Will: Yes Does patient have a Durable POA for Healthcare: Yes Time Spent Managing Pts Care (In Minutes): 45
[2018-10-06] MEDS: INSULIN -REGULAR HUMAN 50 UNIT/0.5 ML ML SQ SCH ×2 (18:19→21:00)
[2018-10-06] MEDS ORDERED: D50W 25 GM/50 ML SYRINGE IV PRN (18:32)
[2018-10-06] MEDS ORDERED: GLUCAGON 1 MG/VIAL IM PRN (18:32)
[2018-10-07 03:01] LABS: Urine Appearance CLOUDY; Urine Bilirubin NEGATIVE (NEG); Urine Blood 3+ (NEG); Urine Color YELLOW; Urine Glucose NEGATIVE (NEG); Urine Protein 1+ (NEG); Urine Urobilinogen 0.2 mg/dL (0.2-1.0); Urine pH 5.5 (5.0-7.0)
[2018-10-07 03:06] LABS: Urine Microscopic Reflex ORDER UMIC
[2018-10-07 03:49] LABS: Urine Bacteria <20 /HPF (NONE SEEN); Urine Culture Reflex Order REFLEXED; Urine RBC TNTC /HPF (NONE SEEN)
[2018-10-07 05:46] LABS: Absolute Lymphocytes (CBC) 0.9 K/uL (0.7-4.9); Absolute Monocytes 0.4 K/uL (0.1-1.3); Absolute Neutrophil 6.1 K/uL (1.8-8.0); Basophils % 0.6 % (0-1.3); Eosinophils % 0.2 % (0-4.4); Hematocrit 33.4 % (39.6-49.0); Lymphocytes % 12.2 % (15.3-44.8); MPV 10.2 fL (7.6-11.3); Monocytes % 4.8 % (3.3-12.3)
[2018-10-07 06:06] LABS: Albumin 3.1 g/dL (3.4-5.0); Bilirubin Total 1.1 mg/dL (0.2-1.0); Magnesium 2.3 mg/dL (1.8-2.4); Phosphorus 3.4 mg/dL (2.5-4.9); Protein, Total 6.4 g/dL (6.4-8.2)
[2018-10-07 06:59] LABS: Blood Morphology Comment NOTED (NOT SEEN); Platelet Estimate ADEQ; Urine White Blood Cell Casts OK
[2018-10-07 07:00] LABS: Anisocytosis 1+; Burr Cells 1+
--- NOTE | 2018-10-07 07:15 | EKG ---
Test Date: 2018-10-06 Test Time: 13:34:50 Straw Hat Brim Cutter Operator: CHEPE MEASUREMENT RESULTS: Intervals: Rate: 60 IL: QRSD: 226 QT: 594 QTc: 594 [place]: P: IL: QRS: -67 T: 93 INTERPRETIVE STATEMENTS: Electronic ventricular pacemaker Compared to ECG 09/19/2018 07:52:19 Atrial flutter no longer present ventricular pacing is now present Electronically Signed On 10-07-18 07:14:12 CDT by Phil Diaz
[2018-10-07] MEDS: INSULIN -REGULAR HUMAN 50 UNIT/0.5 ML ML SQ SCH ×4 (07:30→21:00)
[2018-10-07] MEDS: HYDROCODONE/APAP 5/325 MG TAB PO PRN (13:35)
[2018-10-07] MEDS ORDERED: HOME MED 1 EA UNK (Ipratropium/Albuterol Sulfate [Iprat-Albut 0.5-3(2.5) Mg/3 Ml] 1 INH) NEB SCH (14:45)
[2018-10-07] MEDS: CEFTRIAXONE/SWI 1gm 1 GM/10 ML SYR IV SCH (17:30)
[2018-10-07] MEDS: FUROSEMIDE 20 MG TABLET PO SCH (17:31)
--- NOTE | 2018-10-07 18:07 | CON ---
Date of Consultation: 10/07/2018 Reason For Consultation: Right hip pain. History Of Present Illness: Mr. Ashford is an 83-year-old patient who was brought to the ER yesterday w ith right hip pain and inability to bear weight. At the custodial the patient had an unwitnessed fall with subsequent pain to the right hip. Had mobile x-rays which demonstrated a right hip fractur e, was brought to the emergency room. The patient does have history of dementia and some history was obtained from the patient's sister who has medical power of finance attorney. The patient's sister reports the patient is not able to ambulate very well and mobilizes in a wheelchair. He has significant weak ness. He has recent history of admission earlier in September 2018 for a flu and CHF exacerbation. The patient denies any other musculoskeletal complaints at this time. Review of Systems: As above, otherwise negative. Past Medical History: Includes diabetes, coronary artery disease, CHF, dementia, hypothyroidism, hyp ertension, COPD, and history of atrial fibrillation. Past Surgical History: Includes a bypass and pacemaker placement. Medications: Per medication reconciliation form. Social History: Denies tobacco, alcohol, or drug use. Allergies: NO KNOWN DRUG ALLERGIES. Physical Examination: General: No apparent distress. HEENT: Normocephalic, atraumatic. Neck: Supple. Cardiovascular: Brisk cap refill to all digits. Chest: Nonlabored breathing. Abdomen: Nondistended. Psychiatric: Responsive to exam with occasional confusion. Musculoskeletal: Bilateral upper extremities functional range of motion without pain. No gross defo rmities. No obvious dislocations. Left lower extremity functional range of motion without pain. No gross deformities. No obvious dislocations. Right lower extremity pain with range of motion of the right hip. Tenderness to palpation over the right hip. No tenderness to palpation of the distal fe mur, knee, tibia, or foot. He is neurovascular intact distally. Sensation grossly intact to the lam carlitos and plantar surface of his foot. He does move his foot grossly. X-rays: X-rays of the right femur demonstrate a basicervical minimally displaced proximal femur frac ture. Laboratory Data: White count 7.4, hemoglobin 11.3, hematocrit 33.4, platelets is 92. Assessment And Plan: Blayne is an 83-year-old male with a right basicervical femur fracture. I dis cussed with the patient and his sister at length the risks and benefits associated with operative and nonoperative treatment. The patient had an echocardiogram done in June of 2018, which demonstrat ed ejection fraction of 24%. He is currently anemic and has thrombocytopenia. The patient also is a Moravian and will not take blood transfusion. We will have Cardiology evaluate the patient to assess his perioperative risks for surgery. I spoke with the sister who has medical power of att orney and discussed with her the treatment options including operative treatment with intramedullary nail as well as nonoperative treatment with pain control given his high surgical risk. We will follo w up with the cardiology recommendations. The patient will remain nonweightbearing of his right lowe r extremity at this time. CV/MODL Voice ID: [id number] Report ID: [id number]
--- NOTE | 2018-10-07 18:45 | P.PN ---
Date of Service: 10/07/18 I discussed the case again with the patient's sister, medical power of environmental conflict manager. I discussed both operative and nonoperative treatment again including fixation with cephallomedullary nail. The patient is a very high surgical risk given his multiple medical comorbidities including CHF. The sister expressed understanding and the patient and her do not want to proceed with surgery. They understand the risk of nonunion of the fracture and likelihood of remaining nonambulatory with nonoperative treatment. They expressed desire to pursue possible hospice treatment in [place]. The patient may followup in my clinic as needed and may call with any questions.
--- NOTE | 2018-10-07 20:00 | PN ---
Date of Progress Note: 10/07/2018 Code Status: Full. Subjective: The patient is seen and examined. Chart reviewed and case discussed with RN, Dr. Sadia kwong as well as Dr. Montelongo. Family at the bedside. Sister is the medical power of deputy county attorney as the patien t is demented, unable to make decisions for himself. The patient denies any specific pain. Medications: List reviewed. Physical Examination: Vital Signs: Temperature 97.5, heart rate 63, blood pressure 155/67, respirations 18, O2 94% on room air. General: Awake, alert, oriented x3, elderly male, not in any acute distress. CV: S1, S2. Regular rate and rhythm. Peripheral pulses present. Respiratory: Moving air well bila terally. No wheezing or stridor. Gastrointestinal: Abdomen is soft, nontender, nondistended. Positive bowel sounds. Extremities: No clubbing, cyanosis, or edema. Musculoskeletal: Right hip decreased range of motion, pain. Neuro: Cranial nerves 2 through 12 intact grossly. No focal neurological deficit. Laboratory Data: Sodium 144, potassium 4, chloride 110, CO2 26, BUN 35, creatinine 1.62, glucose 141 , calcium 8.8, phosphorus 3.4, magnesium 2.3. WBC 7.4, H and H 11.3 and 33.4, platelets 92, neutroph ils 82%. UA is positive 2+ leukocyte esterase, 10-20 WBCs, too numerous to count RBCs. Urine cultur e is pending. Assessment And Plan: An 83-year-old male with; 1.Right femur fracture nondisplaced initial encounter. We will continue with pain control. I spoke with Dr. Montelongo and with Dr. Rojas for cardiology clearance. The patient is a Pentecostalism, no t complaining of any significant pain. We will add [place] 5 mg p.o. q.6 hours p.r.n. for moderate tiburcio n. I spoke with the sister, who is his medical power of deputy county attorney regarding his very high risk status for surgery. According to Cardiology, the patient has very low ejection fraction. The patient's fa jacqueline also not wanting extensive invasive procedures. They are moving more towards nonoperative manag ement. They understand that the patient will be nonambulatory, will be transferring from wheelchair to bed and has risk for future fractures displacement with more movement. Sister who is the medical power of deputy county attorney states that the patient already has a low quality of life and the patient himself d espite his dementia does not wish to have any surgery. Sister planning to reach out to the patient's daughter as well, who is largely not active in his medical care. 2.Status post fall. CT head was negative for any bleed. 3.Acute cystitis with hematuria. We will start on IV antibiotics and follow up on urine culture. 4.History of congestive heart failure, chronic systolic, currently compensated low EF. 5.History of pacemaker. 6.Thrombocytopenia. 7.Microcytic anemia. We will continue to monitor. The patient is Voodoo. Unable to tra nsfuse. 8.Atrial flutter. Anticoagulation on hold. 9.Dementia, Parkinson disease without behavioral disturbance. 10.Coronary artery disease, [place] artery and [place] heart without angina stable. 11.Diabetes mellitus type 2 with long-term use of insulin with hyperglycemia. We will continue morro toring blood glucose levels and sliding scale insulin. 12.Hypothyroidism, continue Synthroid. 13.Mixed hyperlipidemia, continue statin. 14.Deep vein thrombosis prophylaxis with Lovenox. No surgical intervention at this time. Plan: Discussed with Social Work and family, palliative care may be an option for pain control. The patient does not have the best quality of life. Currently, family is opting for nonoperative treatm ent. /KO Voice ID: [id number] Report ID: [id number]
[2018-10-07] MEDS: ALBUTEROL 2.5 MG/3 ML NEB SOL IH SCH (20:20)
[2018-10-07] MEDS: IPRATROPIUM BROM 0.5MG/2.5ML IH SCH (20:20)
[2018-10-07] MEDS: DRONABINOL 5 MG PO SCH (21:00)
[2018-10-07] MEDS ORDERED: METOPROLOL SUCCINATE PO SCH (21:00)
[2018-10-07] MEDS ORDERED: HCTZ PO SCH (21:00)
[2018-10-07] MEDS: ISOSORBIDE DINIT 5 MG TAB PO SCH (21:57)
[2018-10-07] MEDS: SPIRONOLACTONE 25 MG TABLET PO SCH (21:58)
[2018-10-07] MEDS: ATORVASTATIN 80 MG TAB PO SCH (21:58)
[2018-10-07] MEDS: hydroCHLOROthiazide 12.5 MG CAP PO SCH (21:59)
[2018-10-07] MEDS: METOPROLOL XL 25 MG TAB PO SCH (21:59)
[2018-10-07] MEDS: ENSURE HIGH PROTEIN 237 ML CAN PO SCH (22:00)
[2018-10-07] MEDS: LACTULOSE 20 GM/30 ML UCUP PO SCH (22:00)
[2018-10-08] MEDS: IPRATROPIUM BROM 0.5MG/2.5ML IH SCH ×4 (01:20→20:00)
[2018-10-08] MEDS: ALBUTEROL 2.5 MG/3 ML NEB SOL IH SCH ×4 (01:20→20:00)
[2018-10-08] MEDS: PANTOPRAZOLE 40MG TABLET PO SCH (05:34)
[2018-10-08] MEDS: LEVOTHYROXINE SOD 0.1 MG TAB PO SCH (05:34)
[2018-10-08 06:22] LABS: Absolute Monocytes 0.3 K/uL (0.1-1.3); Absolute Neutrophil 4.6 K/uL (1.8-8.0); Basophils % 0.6 % (0-1.3); Eosinophils % 0.1 % (0-4.4); Hematocrit 30.8 % (39.6-49.0); Lymphocytes % 16.8 % (15.3-44.8); MPV 10.2 fL (7.6-11.3); Monocytes % 4.7 % (3.3-12.3)
[2018-10-08 06:36] LABS: Albumin 2.6 g/dL (3.4-5.0); Bilirubin Total 1.2 mg/dL (0.2-1.0); Protein, Total 5.9 g/dL (6.4-8.2)
[2018-10-08] MEDS: INSULIN -REGULAR HUMAN 50 UNIT/0.5 ML ML SQ SCH ×4 (07:30→20:55)
[2018-10-08] MEDS: CEFTRIAXONE/SWI 1gm 1 GM/10 ML SYR IV SCH (08:39)
[2018-10-08] MEDS: MEMANTINE HCL 10 MG TABLET PO SCH (08:41)
[2018-10-08] MEDS: LORATADINE 10 MG TAB PO SCH (08:41)
[2018-10-08] MEDS: ISOSORBIDE DINIT 5 MG TAB PO SCH ×2 (08:41→20:55)
[2018-10-08] MEDS: TAMSULOSIN 0.4 MG SR CAP PO SCH (08:41)
[2018-10-08] MEDS: FUROSEMIDE 20 MG TABLET PO SCH ×2 (08:42→16:36)
[2018-10-08] MEDS: CLOPIDOGREL 75 MG TABLET PO SCH (08:42)
[2018-10-08] MEDS: RIVASTIGMINE 4.6 MG/24 HR PATCH TD SCH (08:44)
[2018-10-08] MEDS: HOME MED 1 EA UNK (Linagliptin [Tradjenta] 1 TAB) PO SCH (08:45)
[2018-10-08] MEDS: DRONABINOL 5 MG PO SCH ×2 (08:45→20:54)
[2018-10-08] MEDS: hydroCHLOROthiazide 12.5 MG CAP PO SCH ×2 (09:00→20:54)
[2018-10-08] MEDS: METOPROLOL XL 25 MG TAB PO SCH ×2 (09:00→20:54)
[2018-10-08] MEDS ORDERED: ENOXAPARIN 30 MG/0.3 ML SQ SCH (09:00)
[2018-10-08] MEDS: SPIRONOLACTONE 25 MG TABLET PO SCH ×2 (09:00→20:53)
[2018-10-08] MEDS: ENSURE HIGH PROTEIN 237 ML CAN PO SCH ×3 (09:31→20:55)
[2018-10-08] MEDS: INSULIN GLARGINE 100 UNITS/ML SQ SCH (09:32)
[2018-10-08] MEDS: BUSPIRONE HCL 5 MG TABLET PO SCH (14:23)
--- NOTE | 2018-10-08 16:09 | PN ---
Date of Progress Note: 10/08/2018 Subjective: The patient is seen and examined. Chart reviewed, and case discussed with RN. No family at the bedside. Spoke at length with family multiple times yesterday along with Dr. Montelongo and Dr. Rojas. The patient is a very high risk for surgery. Family wants to proceed with non-operative management. Sister is the medical power of finance attorney. The patient is also a Gnosticism, cannot take blood transfusions. Pain is well controlled. Medications: List reviewed. Physical Examination: Vital Signs: Temperature 98.9, heart rate 65, blood pressure 112/61, respirations 16, O2 of 100% on room air. General: Awake, alert, oriented x2. An elderly male, not in any acute distress. CV: S1, S2. Regular rate and rhythm. Peripheral pulses present. RESPIRATORY: Moving air well bilaterally. No wheezing. Gastrointestinal: Abdomen is soft, nontender, nondistended. Positive bowel sounds. Extremities: No clubbing, cyanosis, or edema. Musculoskeletal: Right hip; tenderness to palpation, limited range of motion. Neurologic: Nonfocal. Laboratory Data: Sodium 145, potassium 4, chloride 112, CO2 of 25, BUN 35, creatinine 1.55, glucose 126, calcium 8.6, albumin 2.6. WBC 5.9, H and H 10.5 and 30.8, platelets 87, neutrophils 77%. Assessment: 1. Right femur fracture, nondisplaced, initial encounter, closed. The pain is well controlled. Family is opting for nonoperative management due to high risk of surgery and inability to accept blood transfusions and platelet transfusions. I spoke at length with Dr. Montelongo and the family. They understand nonoperative management means that he will be nonambulatory, has risk for nonunion and other complications. They wish to pursue hospice at this time. 2. Status post fall, mechanical. 3. Acute cystitis with hematuria. We will continue IV Rocephin. Follow up on urine cultures, currently pending. 4. History of congestive heart failure, chronic, systolic, currently compensated. 5. Status post pacemaker. 6. Thrombocytopenia. The patient likely has underlying liver disease. We will continue to monitor. Transfuse if bleeding or if less than 20. 7. Microcytic anemia, stable. Continue to monitor hemoglobin and hematocrit. 8. Atrial flutter. Anticoagulation on hold. 9. Dementia, Parkinson disease without behavioral disturbance. 10. Coronary artery disease, [place] artery and [place] heart, without angina, stable. 11. Diabetes mellitus type 2 with long-term use of insulin with hyperglycemia. Continue sliding scale insulin and monitor Accu-Cheks. 12. Hypothyroidism. Continue Synthroid. 13. Mixed hyperlipidemia. Continue statin. 14. CKD stage III. Avoid NSAIDs. Monitor Creatnine. Currently at baseline. 15. Deep venous thrombosis prophylaxis. Avoid Lovenox for now due to thrombocytopenia. Plan: We will consult Social Work to set up hospice. Family wants the patient to be closer to them in [place]. The patient does not qualify for inpatient hospice at this time. We will discuss further. RALF Voice ID: [id number] Report ID: [id number] [id number]
[2018-10-08] MEDS: LACTULOSE 20 GM/30 ML UCUP PO SCH (20:53)
[2018-10-08] MEDS: HYDROCODONE/APAP 5/325 MG TAB PO PRN (20:53)
[2018-10-08] MEDS: ATORVASTATIN 80 MG TAB PO SCH (21:00)
--- NOTE | 2018-10-09 01:34 | CON ---
Date of Consultation: 10/06/2018 Reason For Consultation: Cardiac clearance for right femoral fracture surgery. History Of Present Illness: Mr. Ashford is an 83-year-old white male. He has a very complex past medic al history. He has an ejection fraction of 24% as of June 2018. He has history of CAD, chronic s ystolic congestive heart failure, COPD, dementia, anxiety, benign prostatic hypertrophy, hypertension , atrial fibrillation, diabetes, dyslipidemia, hypothyroidism, and status post pacemaker. He does no t really have any cardiac symptoms, but fell and broke his right hip. Past Medical History: As stated above. Allergies: NONE. Review of Systems: Negative. Social History: Positive for him being a Rastafarian. Family History: Noncontributory. Medications: At home include Aldactone, Lipitor, Plavix, Imdur, insulin, thyroid, metoprolol, Namend a, Prilosec, Lasix, and multiple inhalers. Physical Examination: General: Mr. Ashford was awake, alert, oriented x2, slow to respond to questions. No acute distress. HEENT: Negative. Neck: Supple without any bruit, lymphadenopathy, JVD, or thyromegaly. Chest: Clear to auscultation and percussion. Cardiac: Paced rhythm. No gallops, murmurs, or rubs. Abdomen: Benign. Extremities: No clubbing or cyanosis. He had trace edema. Diagnostic Data: Fairly unremarkable. Impression And Plan: 1.An 83-year-old white male with right femoral fracture, has a history of chronic systolic congestiv e heart failure, status post pacemaker, ejection fraction of 24%. I think Mr. Ashford also is a Jehovah 's Witness and the bleeding with him might be an issue. He is on Plavix, which can be held and shoul d be held for at least 5 days prior to surgery if that is decided by the surgeon and the family down the road. 2.Atrial fibrillation, well controlled, status post pacemaker. 3.Diabetes. 4.Hypertension, well controlled. 5.Dyslipidemia, well controlled. 6.Hypothyroidism. 7.Anxiety. 8.History of coronary artery disease. 9.History of chronic obstructive pulmonary disease. 10.Chronic dementia. Case was discussed in detail with Dr. Cantu. Family and Dr. Cantu as well as surgery is making a dec ision regarding the plans. If the patient does go to surgery, he definitely needs to have ICU postop monitoring. VANESA/KO Voice ID: [id number] Report ID: [id number]
[2018-10-09] MEDS: ALBUTEROL 2.5 MG/3 ML NEB SOL IH SCH ×4 (02:00→19:05)
[2018-10-09] MEDS: IPRATROPIUM BROM 0.5MG/2.5ML IH SCH ×4 (02:00→19:05)
[2018-10-09 05:27] LABS: Absolute Lymphocytes (CBC) 1.1 K/uL (0.7-4.9); Absolute Monocytes 0.3 K/uL (0.1-1.3); Absolute Neutrophil 2.7 K/uL (1.8-8.0); Basophils % 0.7 % (0-1.3); Eosinophils % 1.1 % (0-4.4); Hematocrit 28.9 % (39.6-49.0); Lymphocytes % 26.3 % (15.3-44.8); MPV 9.6 fL (7.6-11.3); Monocytes % 6.8 % (3.3-12.3); RBC Red Blood Cell Count 2.93 M/uL (4.33-5.43)
[2018-10-09] MEDS: LEVOTHYROXINE SOD 0.1 MG TAB PO SCH (05:32)
[2018-10-09] MEDS: PANTOPRAZOLE 40MG TABLET PO SCH (05:32)
[2018-10-09 05:49] LABS: Albumin 2.6 g/dL (3.4-5.0); Bilirubin Total 0.8 mg/dL (0.2-1.0); Potassium 3.8 mmol/L (3.5-5.1); Protein, Total 5.7 g/dL (6.4-8.2)
[2018-10-09] MEDS ORDERED: POTASSIUM CL SA 10 MEQ TAB PO ONE (06:00)
[2018-10-09] MEDS: INSULIN -REGULAR HUMAN 50 UNIT/0.5 ML ML SQ SCH ×4 (08:43→21:14)
[2018-10-09] MEDS: MEMANTINE HCL 10 MG TABLET PO SCH (08:44)
[2018-10-09] MEDS: INSULIN GLARGINE 100 UNITS/ML SQ SCH (08:44)
[2018-10-09] MEDS: CEFTRIAXONE/SWI 1gm 1 GM/10 ML SYR IV SCH (08:44)
[2018-10-09] MEDS: TAMSULOSIN 0.4 MG SR CAP PO SCH (08:45)
[2018-10-09] MEDS: ISOSORBIDE DINIT 5 MG TAB PO SCH ×2 (08:45→21:13)
[2018-10-09] MEDS: RIVASTIGMINE 4.6 MG/24 HR PATCH TD SCH (08:46)
[2018-10-09] MEDS: METOPROLOL XL 25 MG TAB PO SCH ×2 (08:46→21:00)
[2018-10-09] MEDS: hydroCHLOROthiazide 12.5 MG CAP PO SCH ×2 (08:47→21:00)
[2018-10-09] MEDS: CLOPIDOGREL 75 MG TABLET PO SCH (08:47)
[2018-10-09] MEDS: FUROSEMIDE 20 MG TABLET PO SCH ×2 (08:47→17:00)
[2018-10-09] MEDS: SPIRONOLACTONE 25 MG TABLET PO SCH ×2 (08:47→21:00)
[2018-10-09] MEDS: LORATADINE 10 MG TAB PO SCH (08:48)
[2018-10-09] MEDS: HOME MED 1 EA UNK (Linagliptin [Tradjenta] 1 TAB) PO SCH (08:48)
[2018-10-09] MEDS: DRONABINOL 5 MG PO SCH ×2 (08:48→19:42)
[2018-10-09] MEDS: ENSURE HIGH PROTEIN 237 ML CAN PO SCH ×3 (08:48→21:14)
[2018-10-09] MEDS: BUSPIRONE HCL 5 MG TABLET PO SCH (13:17)
[2018-10-09] MEDS: FUROSEMIDE 40 MG TABLET PO PRN (17:26)
--- NOTE | 2018-10-09 20:01 | PN ---
Date of Progress Note: 10/09/2018 Subjective: The patient seen and examined. Chart reviewed and case discussed with RN. The patient denies any specific pain. No acute events overnight. Medications reviewed. Physical Examination: Vital Signs: Temperature 97.8, heart rate 61, blood pressure 108/60, respirations 14, O2 96% on room air. General: Awake, alert, oriented x2, elderly male. No acute distress. CV: S1, S2. Regular rate and rhythm. Peripheral pulses present. Respiratory: Moving air well bilaterally. No wheezing. Abdomen: Abdomen is soft, nontender, nondistended. Positive bowel sounds. Extremities: No clubbing, cyanosis, or edema. Neurologic: Nonfocal. Musculoskeletal: Right hip pain with movement. Laboratory Data: Sodium 142, potassium 3.8, chloride 107, CO2 27, BUN 42, creatinine 1.56, glucose 1 02, calcium 8.3. WBC 4.2, H and H 9.7 and 28.9, platelets 85, neutrophils 65%. Assessment And Plan: An 83-year-old male with: 1.Right femur fracture, nondisplaced initial encounter, closed fracture. Nonoperative management du e to high risk of surgery and inability to accept blood transfusion and platelet transfusion. Apprec iate Dr. Montelongo's input. Family understand that the patient will be not ambulatory. Risk for other co mplications of nonunion and refracture. The patient will be going to hospice care in [place]. 2.Status post fall, mechanical. 3.Acute cystitis with hematuria. Urine cultures showed no growth. We will discontinue Rocephin. 4.History of congestive heart failure, chronic systolic, stable. We will continue to monitor I's an d O's, free fluid restriction. Continue beta-dakota, Aldactone and Lasix. 5.Status post pacemaker. 6.Thrombocytopenia, unclear etiology. We will continue to monitor. Not on any anticoagulation. Ma y be secondary to Plavix. 7.Microcytic anemia, stable. Continue to monitor H and H, transfuse as needed for hemoglobin less t kaba 7. 8.Atrial flutter. Currently in paced rhythm. The patient is on Plavix, not on any Coumadin. 9.Dementia and Parkinson disease without behavioral disturbance. 10.Coronary artery disease, [place] artery, [place] heart without angina, stable. 11.Diabetes mellitus type 2 with long-term use of insulin with hyperglycemia. Continue sliding scal e insulin and monitor blood glucose levels. 12.Hypothyroidism, on Synthroid. 13.Mixed hyperlipidemia. Continue statin. 14.Deep vein thrombosis prophylaxis with SCDs. No chemical anticoagulation due to thrombocytopenia. Plan: The patient has been accepted by [facility]. Arrangements being made to transfer to nursing facility in the [place] close to where family resides. /KO Voice ID: [id number] Report ID: [id number]
[2018-10-09 20:45] VITALS: O2SAT 97
[2018-10-09] MEDS: ATORVASTATIN 80 MG TAB PO SCH (21:12)
[2018-10-09] MEDS: LACTULOSE 20 GM/30 ML UCUP PO SCH (21:12)
[2018-10-10] MEDS: ALBUTEROL 2.5 MG/3 ML NEB SOL IH SCH ×3 (01:19→14:15)
[2018-10-10] MEDS: IPRATROPIUM BROM 0.5MG/2.5ML IH SCH ×3 (01:19→14:15)
[2018-10-10] MEDS: LEVOTHYROXINE SOD 0.1 MG TAB PO SCH (05:29)
[2018-10-10] MEDS: PANTOPRAZOLE 40MG TABLET PO SCH (05:29)
[2018-10-10 05:34] VITALS: BMI 22.8
[2018-10-10 06:20] LABS: Magnesium 2.1 mg/dL (1.8-2.4); Phosphorus 3.3 mg/dL (2.5-4.9); Potassium 4.1 mmol/L (3.5-5.1)
[2018-10-10] MEDS: INSULIN -REGULAR HUMAN 50 UNIT/0.5 ML ML SQ SCH ×3 (07:30→16:37)
[2018-10-10] MEDS: INSULIN GLARGINE 100 UNITS/ML SQ SCH (08:57)
[2018-10-10] MEDS: LORATADINE 10 MG TAB PO SCH (08:58)
[2018-10-10] MEDS: METOPROLOL XL 25 MG TAB PO SCH (08:58)
[2018-10-10] MEDS: TAMSULOSIN 0.4 MG SR CAP PO SCH (08:58)
[2018-10-10] MEDS: CLOPIDOGREL 75 MG TABLET PO SCH (08:58)
[2018-10-10] MEDS: ISOSORBIDE DINIT 5 MG TAB PO SCH (08:58)
[2018-10-10] MEDS: hydroCHLOROthiazide 12.5 MG CAP PO SCH (08:58)
[2018-10-10] MEDS: MEMANTINE HCL 10 MG TABLET PO SCH (08:59)
[2018-10-10] MEDS: RIVASTIGMINE 4.6 MG/24 HR PATCH TD SCH (08:59)
[2018-10-10] MEDS: SPIRONOLACTONE 25 MG TABLET PO SCH (08:59)
[2018-10-10] MEDS: FUROSEMIDE 20 MG TABLET PO SCH ×2 (08:59→16:48)
[2018-10-10] MEDS: ENSURE HIGH PROTEIN 237 ML CAN PO SCH ×2 (09:00→13:57)
[2018-10-10] MEDS: DRONABINOL 5 MG PO SCH (09:00)
[2018-10-10] MEDS: HOME MED 1 EA UNK (Linagliptin [Tradjenta] 1 TAB) PO SCH (09:00)
[2018-10-10] MEDS: BUSPIRONE HCL 5 MG TABLET PO SCH (13:57)
[2018-10-10 16:38] VITALS: BP 120/57
[2018-10-10] MEDS: FUROSEMIDE 40 MG TABLET PO PRN (16:38)
[2018-10-10 17:51] VITALS: TEMP 98.8
--- NOTE | 2018-10-11 01:56 | DS ---
Date of Discharge: 10/10/2018 [employer] Director: Dr. Montelongo with Orthopedics, Dr. Rojas with Cardiology. Admitting Diagnoses: 1.Right hip fracture, initial encounter, closed. The patient fractured neck of the femur, nonoperat sabrina. 2.Status post fall. 3.Congestive heart failure, chronic systolic. 4.Status post pacemaker. 5.Atrial flutter. 6.Dementia and Parkinson's disease without behavioral disturbance. 7.Coronary artery disease, [place] artery, [place] heart, without angina. 8.Diabetes mellitus, type 2, with long-term use of insulin, with hyperglycemia. 9.Hypothyroidism. 10.Mixed hyperlipidemia. Discharge Diagnoses: 1.Right femur neck fracture, nondisplaced, initial encounter, closed, nonoperative management due to high risk of surgery and inability to accept blood transfusions. 2.Status post fall, mechanical. 3.Acute cystitis with hematuria. Urine culture showed no growth. 4.History of chronic congestive heart failure. 5.Status post pacemaker. 6.Thrombocytopenia. 7.Microcytic anemia. 8.Atrial flutter. 9.Dementia and Parkinson's disease without behavioral disturbance. 10.Coronary artery disease, [place] artery, [place] heart, without angina. 11.Diabetes mellitus, type 2, with long-term use of insulin with hyperglycemia. 12.Hypothyroidism. 13.Mixed hyperlipidemia. Hospital Course: The patient is an 83-year-old male, who is a resident of nursing facility, had an u nwitnessed fall and was refusing to move the right leg and unable to bear weight on it. Therefore, x -ray was done, which showed right femur fracture. He was then sent to the ER for further evaluation. The patient was started on IV fluids and pain medications. He initially had anemia and thrombocyto penia and due to his history of cardiac disease and congestive heart failure, cardiac clearance was o btained prior to surgery. Dr. Rojas saw the patient. After discussion with the patient and the fa jacqueline, he did not wish to proceed with surgery. Family agreed. Sister is the medical power of attorn ey. The patient has a low EF 24%, has multiple comorbidities. He would be very high risk. Addition ally, the patient is a Latter-day and refusing any sort of blood transfusions including platel et transfusions. Therefore, risk for surgery was very high. Medical power of deputy commonwealth's attorney opted to proc eed with nonoperative management. They understand that this can lead to further nonunion, more fract ures, and the patient to become nonambulatory. The patient does have a low quality of life due to hi s dementia and other comorbid conditions. The patient's family chose hospice and he was transferred once he was accepted to [facility], which is close to where the patient's family live s. The patient also had a positive UA. However, urine cultures were negative. He was treated with Rocephin. The patient was then discharged to nursing facility with hospice in a fair condition. Activity: Fall precautions. Diet: Diabetic. Followup: Follow up with primary care physician in 1 week. Follow up with orthopedic surgeon, Dr. Helen nichole, as needed. Return to ER for worsening condition. Goals of care are care and comfort measures a t this time. Physical Examination: General: Awake, alert, oriented x2, elderly male, not in any acute distress. CV: S1, S2. Irregularly irregular. Pulses present. Respiratory: Moving air well bilaterally. Abdomen: Soft, nontender, nondistended. Positive bowel sounds. Extremities: No clubbing, cyanosis, or edema. Neurologic: Nonfocal. Musculoskeletal: Right hip tenderness. Total time spent discharging the patient was 37 minutes. /KO Voice ID: [id number] Report ID: [id number]
== END 2018-10-10 17:37 | disposition hospice, inpatient (51) | DRG 536 ==
LOC: ER 13:29 → ERHOLD 16:29 → 2ND 18:00
PROVIDERS: ADMIT Family Medicine; ATTEND Family Medicine
DX: S72.001A Fracture of unspecified part of neck of right femur, initial encounter for closed fracture (principal); I50.22 Chronic systolic (congestive) heart failure; I48.3 Typical atrial flutter; N30.01 Acute cystitis with hematuria; I13.0 Hypertensive heart and chronic kidney disease with heart failure and stage 1 through stage 4 chronic kidney disease, or unspecified chronic kidney disease; W19.XXXA Unspecified fall, initial encounter; Y92.129 Unspecified place in nursing home as the place of occurrence of the external cause; I11.0 Hypertensive heart disease with heart failure; G20 Parkinson's disease; F02.80 Dementia in other diseases classified elsewhere, unspecified severity, without behavioral disturbance, psychotic disturbance, mood disturbance, and anxiety; I25.10 Atherosclerotic heart disease of native coronary artery without angina pectoris; E11.65 Type 2 diabetes mellitus with hyperglycemia; E11.22 Type 2 diabetes mellitus with diabetic chronic kidney disease; N18.3 Chronic kidney disease, stage 3 (moderate); J44.9 Chronic obstructive pulmonary disease, unspecified; D69.6 Thrombocytopenia, unspecified; D50.9 Iron deficiency anemia, unspecified; E78.2 Mixed hyperlipidemia; E03.9 Hypothyroidism, unspecified; N40.0 Benign prostatic hyperplasia without lower urinary tract symptoms; Z79.01 Long term (current) use of anticoagulants; Z79.4 Long term (current) use of insulin; Z95.0 Presence of cardiac pacemaker; Z95.1 Presence of aortocoronary bypass graft
CPT/HCPCS: 36415; 70450; 72170; 80048; 80053; 81003; 81015; 82962; 83735; 84100; 85025; 85610; 85730; 87086; 87088; 93005; 94760; 96361; 96374; 99285; J0696; J2175